=== PATIENT | male | born 1945 | race Caucasian/White ===

== ENCOUNTER → 2017-09-02 | Outpatient (CLI) | payer MEDICARE ==
[~2017-09-02] MED LIST: ALPR.5T; AML5T; AMLO10TA82 PO; ASP325T PO; ASPI-586 PO; AZOR; BSP10T PO; BYSTOLIC 10MG; CATHETER FLUSH 10 ML SYR IV PRN; CEFU500T PO; CEPH500C PO; CLN.2T PO; CLON1TAB PO; CTLP20T; DULO30CA; ENAL5TAB PO; ENLP10T; HYDR-757 PO; HYDROCODONE; KCL10CCR; KCL10CCR PO; LOVA20TA2 PO; MELO7.5T; METF500T5 PO; MGX400T; MTF500T PO; PARO40TA2 PO; PIOG30TA38 PO; QTP25T; REGADENOSON 0.4 MG/5 ML SYR (LEXISCAN) IV ONE; TOPAMAX; TOPI50TA2 PO; TPR25T PO; TRAM50TA2 PO; UNKNOWN CHOLESTEROL; WARF6TAB PO; WRF2T; WRF5T PO
[2017-09-02 09:25] VITALS: BP 151/97
[2017-09-02 09:27] VITALS: BP 149/95
--- NOTE | 2017-09-02 15:52 | STRESS TEST ---
DATE OF SERVICE: 09/02/2017 LEXISCAN MYOVIEW STRESS TEST REPORT REFERRING PHYSICIAN: Dr. Chantell Lopez, [facility]. Baseline heart rate is 79, baseline blood pressure 168/98. Baseline EKG is sinus rhythm with left bundle branch block. In summary, the patient received 9.74 mCi of technetium-99 Myoview and the resting images were obtained. Then, the patient received 0.4 mg of Lexiscan followed by 29.4 mCi of technetium-99 Myoview. Throughout the test, EKG was showing changes involving baseline first-degree AV block in addition to progressive VA prolongation with second-degree Mobitz I AV block and right bundle branch block. The patient was asymptomatic. Blood pressure was 155/88. During recovery, heart rate and blood pressure returned to baseline. The resting and stress images were reviewed and compared in the short axis, horizontal long axis, and vertical long axis views. Review of the images showed no significant ischemia or infarction on SPECT images. SSS is 0, TID value 0.96. On the gated images, the left ventricle appeared to be in normal size with normal contractility. Calculated ejection fraction 55%. CONCLUSION: 1. The patient tolerated Lexiscan well. 2. Baseline sinus rhythm with left bundle branch block. Then, the patient had sinus rhythm with first-degree AV block in addition to progressive VA prolongation with second-degree Mobitz I AV block and right bundle branch block. 3. No significant ischemia or infarction on SPECT images. 4. Normal left ventricular size with normal contractility. Calculated ejection fraction 55%. Job ID: [id number] DocumentID: [id number] Dictated Date: 09/02/2017 11:23:51 Tool Liaison Date: 09/02/2017 15:52:22 Dictated By: YOHANA SCHMIDT MD
== END ==
LOC: CARD 07:52
PROVIDERS: ATTEND Internal Medicine Cardiovascular Disease
DX: I25.10 Atherosclerotic heart disease of native coronary artery without angina pectoris (principal); I63.9 Cerebral infarction, unspecified; I65.23 Occlusion and stenosis of bilateral carotid arteries; R07.9 Chest pain, unspecified; R06.00 Dyspnea, unspecified; I10 Essential (primary) hypertension; R94.39 Abnormal result of other cardiovascular function study
CPT/HCPCS: 78452; 93017; 93306

== ENCOUNTER 2017-11-04 06:56 | Inpatient (IN) | payer MEDICARE ==
[2017-11-04] VITALS (16 sets, daily range): BP systolic 99–143; BP diastolic 31–85
[~2017-11-04] VITALS: Ht 175.3 cm; Wt 115.4 kg
[~2017-11-04 06:56] MED LIST changes: -CATHETER FLUSH 10 ML SYR IV PRN; -REGADENOSON 0.4 MG/5 ML SYR (LEXISCAN) IV ONE
[2017-11-04] MEDS ORDERED: RT-ALBUTEROL/IPRATROPIUM 3 ML (DUONEB) VIAL ONE (07:07)
[2017-11-04] MEDS ORDERED: ACETAMINOPHEN 500 MG TAB (TYLENOL) PO PRN ×2 (07:15→14:00)
[2017-11-04] MEDS ORDERED: RT-ALBUTEROL/IPRATROPIUM 3 ML (DUONEB) VIAL INH ONE (07:15)
[2017-11-04 07:24] LABS: BASOPHILS % (AUTO) 0 % (0-10); EOSINOPHILS % (AUTO) 0 % (0-10); HEMATOCRIT 42 % (40-54); HEMOGLOBIN 13.6 G/DL (13.3-17.7); LYMPHOCYTES # (AUTO) 1.7 X 10^3 (1.0-4.0); LYMPHOCYTES % (AUTO) 10 % (12-44); MEAN CORPUSCULAR HEMOGLOBIN 27 PG (25-34); MEAN CORPUSCULAR HGB CONC 33 G/DL (32-36); MEAN CORPUSCULAR VOLUME 84 FL (80-99); MEAN PLATELET VOLUME 11.7 FL (7.4-10.4); MONOCYTES # (AUTO) 1.3 X 10^3 (0.0-1.0); MONOCYTES % (AUTO) 8 % (0-12); NEUTROPHILS # (AUTO) 13.8 X 10^3 (1.8-7.8); NEUTROPHILS % (AUTO) 82 % (42-75); PLATELET COUNT 384 10^3/uL (130-400); RED BLOOD COUNT 4.97 10^6/uL (4.35-5.85); RED CELL DISTRIBUTION WIDTH 16.5 % (10.0-14.5); WHITE BLOOD COUNT 16.9 10^3/uL (4.3-11.0)
[2017-11-04] MEDS ORDERED: LIDOCAINE UROJET 2% GEL 10 ML PKG ONE (07:34)
--- NOTE | 2017-11-04 07:44 | Diagnostic Imaging Report ---
INDICATION: Coughing up blood, shortness of air EXAMINATION: Chest 11/04/2017 COMPARISON: 11/16/2015 FINDINGS: There is cardiomegaly. Pulmonary vascular congestion noted with mild edema throughout both lungs. Bibasilar atelectasis versus infiltrates noted. No significant effusions. No pneumothorax. Left-sided pacemaker and postoperative change right shoulder stable. IMPRESSION: 1. Suspected pulmonary edema 2. Bibasilar atelectasis versus mild infiltrates; followup recommended. Dictated by: Dictated on workstation # [id number]
[2017-11-04 07:48] LABS: ALBUMIN 3.6 GM/DL (3.2-4.5); BILIRUBIN,TOTAL 0.4 MG/DL (0.1-1.0); CALCIUM 9.4 MG/DL (8.5-10.1); CREATININE SERUM 1.41 MG/DL (0.60-1.30); POTASSIUM 4.6 MMOL/L (3.6-5.0); TOTAL PROTEIN 7.1 GM/DL (6.4-8.2)
--- NOTE | 2017-11-04 07:48 | ED Respiratory ---
General Stated Complaint: COUGHING BLOOD SOA Source: patient Exam Limitations: no limitations History of Present Illness Date Seen by Provider: Nov 04, 2017 Time Seen by Provider: 07:02 Initial Comments Here with report of shortness of air. Onset yesterday and worse until today. Has had quite a bit of cough as well as sore throat. States that when he coughs sometimes there is blood in it. Denies nausea or vomiting. Quite short of breath today. Does have fever today. Does not normally have respiratory problems. Does have a pacemaker. Timing/Duration: yesterday, getting worse Severity: moderate, severe Prior Episodes/Possible Cause: occasional episodes Modifying Factors: Worse With Activity; Improves With Rest Associated Symptoms: cough, fever/chills, nasal congestion, nasal drainage, shortness of breath, sore throat, wheezing Allergies and Home Medications Allergies Coded Allergies: Sulfa (Sulfonamide Antibiotics) (Verified Allergy, Unknown, 03/12/07) Home Medications Amlodipine Besylate 10 Mg Tablet, 10 MG PO DAILY, (Reported) Clonazepam 1 Mg Tablet, 1 MG PO TID PRN for ANXIETY, (Reported) Clonidine Hcl 0.2 Mg Tablet, 0.2 MG PO BID, (Reported) Enalapril Maleate 5 Mg Tablet, 5 MG PO BID, (Reported) Hydrocodone/Acetaminophen 1 Each Tablet, 1 TAB PO Q6H PRN for PAIN, (Reported) Lovastatin 20 Mg Tablet, 20 MG PO HS, (Reported) Metformin HCl 500 Mg Tablet, 500 MG PO DAILY, (Reported) Metformin HCl 500 Mg Tablet, 1,000 MG PO HS, (Reported) TAKES 2 (500 MG) TABLETS Paroxetine Hcl 40 Mg Tablet, 40 MG PO DAILY, (Reported) Pioglitazone HCl 30 Mg Tablet, 30 MG PO DAILY, (Reported) Potassium Chloride 10 Meq Tablet.sa, 10 MEQ PO DAILY, (Reported) Topiramate 50 Mg Tablet, 50 MG PO BID, (Reported) LAST FILLED 07/12/15 #180 Warfarin Sodium 6 Mg Tablet, 6 MG PO DAILY, (Reported) LAST FILLED 07/12/15 #90 Patient Home Medication List Home Medication List Reviewed: Yes Review of Systems Constitutional: see HPI, chills, fever; No weakness EENTM: nose congestion, throat pain Respiratory: cough, short of breath, wheezing Cardiovascular: No chest pain; Hx of Intervention Gastrointestinal: No abdominal pain, No nausea, No vomiting Genitourinary: no symptoms reported Musculoskeletal: no symptoms reported All Other Systems Reviewed Negative Unless Noted: Yes Past Yaomvqx-Cffrgu-Fpioof Hx Past Med/Social Hx: Reviewed Nursing Past Med/Soc Hx Patient Social History Recreational Drug Use: No Smoking Status: Never a Smoker Immunizations Up To Date Tetanus Booster (TDap): Unknown Date of Pneumonia Vaccine: Jan 22, 2008 Seasonal Allergies Seasonal Allergies: No Past Medical History Surgeries: Yes Orthopedic, Pacemaker Respiratory: Yes Sleep Apnea Stroke Reproductive Disorders: No Sexually Transmitted Disease: No Genitourinary: Yes Kidney Stones Endocrine: Yes Diabetes, Non-Insulin dep Psychosocial: Yes Anxiety Family Medical History Reviewed Nursing Family Hx No Pertinent Family Hx Physical Exam Vital Signs Vital Signs - First Documented 11/04/17 11/04/17 07:11 08:15 Temp 101.0 Pulse 68 Resp 32 B/P (MAP) 148/71 (96) Pulse Ox 90 O2 Delivery Nasal Cannula O2 Flow Rate 2.00 FiO2 90 Capillary Refill : General Appearance: WD/WN, moderate distress HEENT: PERRL/EOMI, pharyngeal erythema; No tonsillar exudate Neck: full range of motion, supple Respiratory: respiratory distress, decreased breath sounds, wheezing, expiration Cardiovascular: regular rate, rhythm, no murmur Gastrointestinal: non tender Extremities: non-tender, normal inspection Neurologic/Psychiatric: alert, oriented x 3 Skin: normal color, warm/dry Focused Exam Lactate Level 11/04/17 07:11: Lactic Acid Level 1.65 Lactic Acid Level Laboratory Tests Test 11/04/17 07:11 Lactic Acid Level 1.65 MMOL/L (0.50-2.00) Progress/Results/Core Measures Suspected Sepsis SIRS Temperature:101.0 Pulse: Respiratory Rate: Laboratory Tests 11/04/17 07:11: White Blood Count 16.9H Blood Pressure / Mean: 11/04/17 07:11: Lactic Acid Level 1.65 Laboratory Tests 11/04/17 07:11: Creatinine 1.41H, INR Comment 11.2*H, Platelet Count 384, Total Bilirubin 0.4 11/04/17 08:01: INR Comment 11.4*H Results/Orders Lab Results Laboratory Tests Test 11/04/17 07:11 11/04/17 07:42 11/04/17 07:53 11/04/17 08:01 Range/Units White Blood Count 16.9 H 4.3-11.0 10^3/uL Red Blood Count 4.97 4.35-5.85 10^6/uL Hemoglobin 13.6 13.3-17.7 G/DL Hematocrit 42 40-54 % Mean Corpuscular Volume 84 80-99 FL Mean Corpuscular Hemoglobin 27 25-34 PG Mean Corpuscular Hemoglobin Concent 33 32-36 G/DL Red Cell Distribution Width 16.5 H 10.0-14.5 % Platelet Count 384 130-400 10^3/uL Mean Platelet Volume 11.7 H 7.4-10.4 FL Neutrophils (%) (Auto) 82 H 42-75 % Lymphocytes (%) (Auto) 10 L 12-44 % Monocytes (%) (Auto) 8 0-12 % Eosinophils (%) (Auto) 0 0-10 % Basophils (%) (Auto) 0 0-10 % Neutrophils # (Auto) 13.8 H 1.8-7.8 X 10^3 Lymphocytes # (Auto) 1.7 1.0-4.0 X 10^3 Monocytes # (Auto) 1.3 H 0.0-1.0 X 10^3 Eosinophils # (Auto) 0.0 0.0-0.3 10^3/uL Basophils # (Auto) 0.0 0.0-0.1 10^3/uL Neutrophils % (Manual) 83 % Lymphocytes % (Manual) 11 % Monocytes % (Manual) 4 % Eosinophils % (Manual) 0 % Basophils % (Manual) 0 % Band Neutrophils 1 % Hypersegmented Neutrophils SLIGHT Reactive Lymphocytes 1 % Poikilocytosis MODERATE Anisocytosis SLIGHT Target Cells SLIGHT Stomatocytes SLIGHT [place] Cells SLIGHT Acanthocytes SLIGHT Prothrombin Time 88.3 *H 89.8 *H 12.2-14.7 SEC INR Comment 11.2 *H 11.4 *H 0.8-1.4 Activated Partial Thromboplast Time 189 *H 186 *H 24-35 SEC Sodium Level 137 135-145 MMOL/L Potassium Level 4.6 3.6-5.0 MMOL/L Chloride Level 107 98-107 MMOL/L Carbon Dioxide Level 17 L 21-32 MMOL/L Anion Gap 13 5-14 MMOL/L Blood Urea Nitrogen 22 H 7-18 MG/DL Creatinine 1.41 H 0.60-1.30 MG/DL Estimat Glomerular Filtration Rate 49 BUN/Creatinine Ratio 16 Glucose Level 165 H 70-105 MG/DL Lactic Acid Level 1.65 0.50-2.00 MMOL/L Calcium Level 9.4 8.5-10.1 MG/DL Total Bilirubin 0.4 0.1-1.0 MG/DL Aspartate Amino Transf (AST/SGOT) 25 5-34 U/L Alanine Aminotransferase (ALT/SGPT) 29 0-55 U/L Alkaline Phosphatase 38 L 40-136 U/L Total Protein 7.1 6.4-8.2 GM/DL Albumin 3.6 3.2-4.5 GM/DL Urine Color YELLOW Urine Clarity CLEAR Urine pH 5 5-9 Urine Specific [place] 1.020 1.016-1.022 Urine Protein 2+ H NEGATIVE Urine Glucose (UA) NEGATIVE NEGATIVE Urine Ketones 2+ H NEGATIVE Urine Nitrite NEGATIVE NEGATIVE Urine Bilirubin NEGATIVE NEGATIVE Urine Urobilinogen 4 H NORMAL MG/DL Urine Leukocyte Esterase 1+ H NEGATIVE Urine RBC (Auto) 4+ H NEGATIVE Urine RBC 2-5 H /HPF Urine WBC 0-2 /HPF Urine Squamous Epithelial Cells RARE /HPF Urine Renal Epithelial Cells NONE /HPF Urine Crystals PRESENT H /LPF Urine Amorphous Sediment FEW FELIPA URATES H /LPF Urine Bacteria NEGATIVE /HPF Urine Casts PRESENT /LPF Urine Hyaline Casts 0-2 H /LPF Urine Mucus MODERATE H /LPF Urine Culture Indicated NO B-Type Natriuretic Peptide 433.7 H <100.0 PG/ML Blood Gas Puncture Site R RAD Blood Gas Patient Temperature 101.0 Arterial Blood pH 7.33 *L 7.37-7.43 Arterial Blood Partial Pressure CO2 37 35-45 MMHG Arterial Blood Partial Pressure O2 77 L 79-93 MMHG Arterial Blood HCO3 18 L 23-27 MMOL/L Arterial Blood Total CO2 19.3 L 21.0-31.0 MMOL/L Arterial Blood Oxygen Saturation 93 L 94-100 % Arterial Blood Base Excess -6.4 L -2.5-2.5 MMOL/L Braydon Test P Blood Gas Ventilator Setting NO Blood Gas Inspired Oxygen Y My Orders Orders - CHRISTINA BLOOM MD Albuterol/Ipra Inhalation Soln (Duoneb I (11/04/17 07:15) Svn Small Volume Nebulizer (11/04/17 07:07) Albuterol/Ipra Inhalation Soln (Duoneb I (11/04/17 07:07) Cbc With Automated Diff (11/04/17 07:10) Comprehensive Metabolic Panel (11/04/17 07:10) Lactic Acid Analyzer (11/04/17 07:10) Blood Culture (11/04/17 07:10) Sputum Culture (11/04/17 07:10) Ua Culture If Indicated (11/04/17 07:10) Protime With Inr (11/04/17 07:10) Partial Thromboplastin Time (11/04/17 07:10) Chest 1 View, Ap/Pa Only (11/04/17 07:10) O2 (11/04/17 07:10) Acetaminophen Tablet (Tylenol Tablet) (11/04/17 07:15) Saline Lock/Iv-Start (11/04/17 07:10) Saline Lock/Iv-Start (11/04/17 07:10) Ekg Tracing (11/04/17 07:10) Vital Signs Adult Sepsis Patie Q15M (11/04/17 07:10) Remove Rings In Anticipation O (11/04/17 07:10) Manual Differential (11/04/17 07:11) Arterial Blood Gas (11/04/17 07:32) BNP (11/04/17 07:32) Catheter(Urinary) Insert & Ass 03,15 (11/04/17 07:34) Lidocaine 2% (Urojet) (Xylocaine Urojet) (11/04/17 07:34) Phytonadione Oral Solution (Mephyton Ora (11/04/17 08:15) Protime With Inr (11/04/17 08:01) Partial Thromboplastin Time (11/04/17 08:01) Piperacillin/Tazobactam (Zosyn Vial) (11/04/17 09:00) Medications Given in ED Current Medications Medications Dose Ordered Sig/Eris Route Start Time Stop Time Status Last Admin Dose Admin Acetaminophen 1,000 mg ONCE PRN PO 11/04/17 07:15 11/04/17 07:32 DC 11/04/17 07:32 1,000 MG Albuterol/ Ipratropium 3 ml STK-MED ONCE .ROUTE 11/04/17 07:07 11/04/17 07:10 DC 11/04/17 07:12 3 ML Phytonadione 2.5 mg ONCE ONCE PO 11/04/17 08:15 11/04/17 08:16 DC 11/04/17 09:04 2.5 MG Piperacillin Sod/ Tazobactam Sod 3.375 gm/Dextrose 100 ml @ 200 mls/hr ONCE ONCE IV 11/04/17 09:00 11/04/17 09:29 11/04/17 09:05 200 MLS/HR Vital Signs/I&O 11/04/17 11/04/17 11/04/17 11/04/17 07:11 07:12 07:32 08:15 Temp 101.0 101.0 Pulse 68 Resp 32 B/P (MAP) 148/71 (96) Pulse Ox 90 92 90 O2 Delivery Nasal Cannula Nasal Cannula Nasal Cannula O2 Flow Rate 2.00 3.00 2.00 FiO2 90 Capillary Refill : Progress Note : Progress Note Seen and evaluated. IV, labs, EKG and chest x-ray ordered. Blood cultures and lactic acid ordered. Duo neb ordered. Patient has initial O2 sat of 86 percent. Placed on nasal cannula at 3 L. This minimally improved his respiratory status. Duo neb ordered and given. This did help a little. Patient has moderate nasal congestion so switched to mask. The rate on the mask at 6 L and O2 sat 92 percent. Patient having enough respiratory distress that we did go ahead and replace Wall catheter for accurate I&O's and due to concerns that he has decline when moving around. 0920: Patient's INR and coags were repeated and are still significantly elevated. I have talked with Dr. Brett Gonzalez and we both agree that vitamin K as indicated. 2.5 mg by mouth given. His findings of pneumonia bilateral bases. Zosyn 3.375 g initiated. Unsure of the cause of the INR but will need further liver evaluation. This can be done when more stable. I did discuss the case with Dr. Toussaint, on- call for [facility]. She accepts patient for admission. Inpatient status. Patient to go to ICU given his current findings and concerns. Does not currently meet severe sepsis or septic shock. High-volume Fluid resuscitation would be disadvantageous in him as there are findings of pulmonary vascular congestion on the chest x-ray. Findings and concerns discussed with patient and family who agree with plan. ECG Initial ECG Impression Date: Nov 04, 2017 Initial ECG Impression Time: 07:04 Initial ECG Rate: 71 Comment Ventricular paced rhythm with left axis deviation. No evidence of ST elevation WI. Similar to previous. Interpreted by me. Diagnostic Imaging Diagonstic Imaging: Xray Plain Films/CT/US/NM/MRI: chest [facility] [place], [place] NAME: [facility] REC#: [id number] PT STATUS: REG ER : 1945 PHYSICIAN: CHRISTINA BLOOM MD ADMIT DATE: 11/04/17/ER Draft Date of Exam:11/04/17 CHEST 1 VIEW, AP/PA ONLY INDICATION: Coughing up blood, shortness of air EXAMINATION: Chest 11/04/2017 COMPARISON: 11/16/2015 FINDINGS: There is cardiomegaly. Pulmonary vascular congestion noted with mild edema throughout both lungs. Bibasilar atelectasis versus infiltrates noted. No significant effusions. No pneumothorax. Left-sided pacemaker and postoperative change right shoulder stable. IMPRESSION: 1. Suspected pulmonary edema 2. Bibasilar atelectasis versus mild infiltrates; followup recommended. Dictated on workstation # [id number] Dict: 11/04/17 0739 Trans: 11/04/17 0744 [facility] [id number] Interpreted by: NADIRA FISHER MD Electronically signed by: Departure Communication (Admissions) Time/Spoke to Admitting Phy: 09:19 Impression Primary Impression: Pneumonia of both lower lobes Qualified Codes: J18.1 - Lobar pneumonia, unspecified organism Additional Impression: Supratherapeutic INR Disposition: ADMITTED INPATIENT Condition: Stable Admissions Decision to Admit Reason: Admit from ER (General) Decision to Admit/Date: Nov 04, 2017 Time/Decision to Admit Time: 09:19 Departure-Patient Inst. Referrals: DAR DANIELS DO (PCP) Primary Care Physician MARLEY MCGRATH (Family) Primary Care Physician CHRISTINA BLOOM MD Nov 04, 2017 07:47
[2017-11-04 07:49] LABS: BILIRUBIN,URINE NEGATIVE (NEGATIVE); CLARITY,URINE CLEAR; COLOR,URINE YELLOW; GLUCOSE, URINE (UA) NEGATIVE (NEGATIVE); KETONES,URINE 2+ (NEGATIVE); LEUKOCYTE ESTERASE ,URINE 1+ (NEGATIVE); NITRITE,URINE NEGATIVE (NEGATIVE); PH,URINE 5 (5-9); PROTEIN,URINE 2+ (NEGATIVE); UROBILINOGEN,URINE 4 MG/DL (NORMAL)
[2017-11-04 07:55] LABS: INR 11.2 (0.8-1.4); PROTHROMBIN TIME PATIENT 88.3 SEC (12.2-14.7)
[2017-11-04 08:03] LABS: ABG BASE EXCESS -6.4 MMOL/L (-2.5-2.5); ABG OXYGEN SATURATION 93 % (94-100); ABG PCO2 37 MMHG (35-45); ABG PO2 77 MMHG (79-93); ABG TCO2 19.3 MMOL/L (21.0-31.0)
[2017-11-04 08:07] LABS: ABG PH 7.33 (7.37-7.43); ALLENS TEST P; INSPIRED O2 Y; VENTILATOR NO
[2017-11-04 08:09] LABS: BAND NEUTROPHILS 1 %; NEUTROPHILS % (MANUAL) 83 %
[2017-11-04 08:10] LABS: BASOPHILS % (MANUAL) 0 %; EOSINOPHILS % (MANUAL) 0 %; HYPERSEGMENTED NEUT SLIGHT; LYMPHOCYTES % (MANUAL) 11 %; MONOCYTES % (MANUAL) 4 %; REACTIVE LYMPHOCYTES 1 %
[2017-11-04 08:11] LABS: ANISOCYTOSIS SLIGHT; POIKILOCYTOSIS MODERATE
[2017-11-04 08:12] LABS: ACANTHOCYTES SLIGHT; BURR CELLS SLIGHT; STOMATOCYTES SLIGHT; TARGET CELLS SLIGHT
[2017-11-04] MEDS ORDERED: VITAMIN K 1 MG/ML ORAL SOLN 1 ML SYRINGE PO ONE (08:15)
[2017-11-04 08:23] LABS: BACTERIA,URINE NEGATIVE /HPF; SQUAMOUS EPITHELIAL CELL,UR RARE /HPF; WBC,URINE 0-2 /HPF
[2017-11-04 08:24] LABS: AMORPHOUS SEDIMENT,UR FEW AMOR URATES /LPF; HYALINE CASTS, URINE 0-2 /LPF
[2017-11-04] MEDS ORDERED: TEST100V3 IM (08:35)
[2017-11-04 08:40] LABS: PROTHROMBIN TIME PATIENT 89.8 SEC (12.2-14.7)
[2017-11-04 08:41] LABS: INR 11.4 (0.8-1.4)
[2017-11-04] MEDS ORDERED: PIPERACILLIN/TAZOBACTAM 3.375 GM in D5W 100 ML IVPB 100 ML IV ONE (09:00)
--- NOTE | 2017-11-04 11:55 | History & Physicial (CHS) ---
HPI History of Present Illness: 72 year old male who presented to the ED with significant other early this morning with complaint of 1-2 days of worsening shortness of breath, especially with exertion. Productive cough, fever, chills, sore throat, congestion, occasional hemoptysis. On arrival to the ED he was found to have a temp of 101.0, a respiratory rate of 32, and an oxygen saturation of 86% on room air. The patient reports that before Saturday, he was feeling like his normal self. He denies chest pain or pressure, nausea, vomiting or diarrhea. Pt does have a history of sleep apnea, but is noncompliant and does not wear CPAP at home. In the ED he was given breathing treatments and placed on oxygen to help bring his sats up to a more normal range; pt is not a smoker and has no history of respiratory disorders. His CXR showed pulmonary edema and bibasilar infiltrate vs atelectasis; this coupled with his tachypnea, febrile state and WBC 16.9, patient meets criteria for sepsis. He was also found to have a supratherapeutic INR of 11.2. He was admitted to the ICU for treatment of his sepsis, as well as stabilization of his supratherapeutic state. Source: patient, RN/MD, RN notes reviewed, old records, spouse Exam Limitations: no limitations Date seen by provider: Nov 04, 2017 Time Seen by Provider: 13:07 Attending Physician Olena Toussaint DO PCP Henri Gonzales APRN Consult Date of Admission Nov 04, 2017 at 09:20 Home Medications Home Medications Reviewed patient Home Medication Reconciliation performed by pharmacy medication reconciliations operating room technician and/or nursing. Patients Allergies have been reviewed. Allergies Coded Allergies: Sulfa (Sulfonamide Antibiotics) (Verified Allergy, Unknown, 03/12/07) [id number] Hx Patient Social History Marrital Status: Number of Children: 3 Number of living children: 3 Living Status: lives with spouse Employed/Student: retired (formerly worked at [employer]) Alcohol Use: Denies Use Recreational Drug Use: No Smoking Status: Never a Smoker 2nd Hand Smoke Exposure: No Recent Foreign Travel: No Contact w/other who traveled: No Recent Hopitalizations: No Recent Infectious Disease Expo: No Physical Abuse Screen: No Sexual Abuse: No Immunizations Up To Date Tetanus Booster (TDap): Unknown Date of Pneumonia Vaccine: Jan 22, 2008 Past Medical History Sleep Apnea - noncompliant with CPAP Obesity, BMI 36.8 Stroke - September 2007 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 Mild regurgitation. Moderate Tricuspid regurgitation Surgical History Cardiac Cath - 2013, 2016 Pacemaker - 2007; Generatory Change 2015 Right Total Shoulder Right Knee Arthroscopy Colonoscopy Abdominal Lipoma Excision Family Medical History Significant Family History: No Pertinent Family Hx (patient adopted) Review of Systems ([facility]) Constitutional: see HPI, chills, fever, malaise EENTM: see HPI, hoarseness, nose congestion, throat pain Respiratory: see HPI, cough, dyspnea on exertion, hemoptysis, phlegm, short of breath Cardiovascular: no symptoms reported Gastrointestinal: no symptoms reported Genitourinary: no symptoms reported Musculoskeletal: no symptoms reported Skin: no symptoms reported Psychiatric/Neurological: No Symptoms Reported Reviewed Test Results Reviewed Test Results Lab 11/04/17 07:11: Lactic Acid Level 1.65 Laboratory Tests Test 11/04/17 07:11 11/04/17 07:42 11/04/17 07:53 11/04/17 08:01 Range/Units White Blood Count 16.9 H 4.3-11.0 10^3/uL Red Blood Count 4.97 4.35-5.85 10^6/uL Hemoglobin 13.6 13.3-17.7 G/DL Hematocrit 42 40-54 % Mean Corpuscular Volume 84 80-99 FL Mean Corpuscular Hemoglobin 27 25-34 PG Mean Corpuscular Hemoglobin Concent 33 32-36 G/DL Red Cell Distribution Width 16.5 H 10.0-14.5 % Platelet Count 384 130-400 10^3/uL Mean Platelet Volume 11.7 H 7.4-10.4 FL Neutrophils (%) (Auto) 82 H 42-75 % Lymphocytes (%) (Auto) 10 L 12-44 % Monocytes (%) (Auto) 8 0-12 % Eosinophils (%) (Auto) 0 0-10 % Basophils (%) (Auto) 0 0-10 % Neutrophils # (Auto) 13.8 H 1.8-7.8 X 10^3 Lymphocytes # (Auto) 1.7 1.0-4.0 X 10^3 Monocytes # (Auto) 1.3 H 0.0-1.0 X 10^3 Eosinophils # (Auto) 0.0 0.0-0.3 10^3/uL Basophils # (Auto) 0.0 0.0-0.1 10^3/uL Neutrophils % (Manual) 83 % Lymphocytes % (Manual) 11 % Monocytes % (Manual) 4 % Eosinophils % (Manual) 0 % Basophils % (Manual) 0 % Band Neutrophils 1 % Hypersegmented Neutrophils SLIGHT Reactive Lymphocytes 1 % Poikilocytosis MODERATE Anisocytosis SLIGHT Target Cells SLIGHT Stomatocytes SLIGHT [place] Cells SLIGHT Acanthocytes SLIGHT Prothrombin Time 88.3 *H 89.8 *H 12.2-14.7 SEC INR Comment 11.2 *H 11.4 *H 0.8-1.4 Activated Partial Thromboplast Time 189 *H 186 *H 24-35 SEC Sodium Level 137 135-145 MMOL/L Potassium Level 4.6 3.6-5.0 MMOL/L Chloride Level 107 98-107 MMOL/L Carbon Dioxide Level 17 L 21-32 MMOL/L Anion Gap 13 5-14 MMOL/L Blood Urea Nitrogen 22 H 7-18 MG/DL Creatinine 1.41 H 0.60-1.30 MG/DL Estimat Glomerular Filtration Rate 49 BUN/Creatinine Ratio 16 Glucose Level 165 H 70-105 MG/DL Lactic Acid Level 1.65 0.50-2.00 MMOL/L Calcium Level 9.4 8.5-10.1 MG/DL Total Bilirubin 0.4 0.1-1.0 MG/DL Aspartate Amino Transf (AST/SGOT) 25 5-34 U/L Alanine Aminotransferase (ALT/SGPT) 29 0-55 U/L Alkaline Phosphatase 38 L 40-136 U/L Total Protein 7.1 6.4-8.2 GM/DL Albumin 3.6 3.2-4.5 GM/DL Urine Color YELLOW Urine Clarity CLEAR Urine pH 5 5-9 Urine Specific [place] 1.020 1.016-1.022 Urine Protein 2+ H NEGATIVE Urine Glucose (UA) NEGATIVE NEGATIVE Urine Ketones 2+ H NEGATIVE Urine Nitrite NEGATIVE NEGATIVE Urine Bilirubin NEGATIVE NEGATIVE Urine Urobilinogen 4 H NORMAL MG/DL Urine Leukocyte Esterase 1+ H NEGATIVE Urine RBC (Auto) 4+ H NEGATIVE Urine RBC 2-5 H /HPF Urine WBC 0-2 /HPF Urine Squamous Epithelial Cells RARE /HPF Urine Renal Epithelial Cells NONE /HPF Urine Crystals PRESENT H /LPF Urine Amorphous Sediment FEW FELIPA URATES H /LPF Urine Bacteria NEGATIVE /HPF Urine Casts PRESENT /LPF Urine Hyaline Casts 0-2 H /LPF Urine Mucus MODERATE H /LPF Urine Culture Indicated NO B-Type Natriuretic Peptide 433.7 H <100.0 PG/ML Blood Gas Puncture Site R RAD Blood Gas Patient Temperature 101.0 Arterial Blood pH 7.33 *L 7.37-7.43 Arterial Blood Partial Pressure CO2 37 35-45 MMHG Arterial Blood Partial Pressure O2 77 L 79-93 MMHG Arterial Blood HCO3 18 L 23-27 MMOL/L Arterial Blood Total CO2 19.3 L 21.0-31.0 MMOL/L Arterial Blood Oxygen Saturation 93 L 94-100 % Arterial Blood Base Excess -6.4 L -2.5-2.5 MMOL/L [place] Test P Blood Gas Ventilator Setting NO Blood Gas Inspired Oxygen Y Test 11/04/17 14:42 11/04/17 16:15 Range/Units Prothrombin Time 80.8 *H 12.2-14.7 SEC INR Comment 10.0 *H 0.8-1.4 Glucometer 130 H 70-110 MG/DL Radiology Date of Exam: 11/04/17 CHEST 1 VIEW, AP/PA ONLY INDICATION: Coughing up blood, shortness of air EXAMINATION: Chest 11/04/2017 COMPARISON: 11/16/2015 FINDINGS: There is cardiomegaly. Pulmonary vascular congestion noted with mild edema throughout both lungs. Bibasilar atelectasis versus infiltrates noted. No significant effusions. No pneumothorax. Left-sided pacemaker and postoperative change right shoulder stable. Physical Exam-([facility]) Physical Exam Vital Signs VS - Last 72 Hours, by Label 11/04/17 11/04/17 11/04/17 11/04/17 07:11 07:12 07:32 08:15 Temp 101.0 101.0 Pulse 68 Resp 32 B/P (MAP) 148/71 (96) Pulse Ox 90 92 90 O2 Delivery Nasal Cannula Nasal Cannula Nasal Cannula O2 Flow Rate 2.00 3.00 2.00 FiO2 90 11/04/17 11/04/17 11/04/17 11/04/17 10:21 10:26 10:27 10:45 Temp 100.4 99.1 Pulse 60 67 75 Resp 27 10 B/P (MAP) 129/68 107/55 (72) Pulse Ox 94 94 O2 Delivery OxyMask OxyMask OxyMask O2 Flow Rate 6.00 6.00 6.00 11/04/17 11/04/17 11/04/17 11/04/17 11:00 12:00 12:16 12:25 Temp 98.3 Pulse 63 65 Resp 26 25 B/P (MAP) 102/57 (72) 99/56 (70) Pulse Ox 95 95 96 O2 Delivery OxyMask OxyMask OxyMask High Flow N/C O2 Flow Rate 6.00 6.00 6.00 6.00 11/04/17 11/04/17 11/04/17 11/04/17 13:00 13:00 14:00 15:00 Pulse 60 60 60 61 Resp 25 19 19 B/P (MAP) 109/31 (57) 110/58 (75) 114/53 (73) Pulse Ox 95 94 95 O2 Delivery High Flow N/C High Flow N/C High Flow N/C O2 Flow Rate 6.00 6.00 6.00 11/04/17 11/04/17 11/04/17 11/04/17 15:13 15:28 16:00 17:00 Pulse 60 63 Resp 16 31 B/P (MAP) 104/83 (90) 128/66 (86) Pulse Ox 90 97 91 O2 Delivery Nasal Cannula High Flow N/C High Flow N/C High Flow N/C O2 Flow Rate 7.00 6.00 6.00 6.00 11/04/17 11/04/17 18:00 19:14 Pulse 60 Resp 8 B/P (MAP) 143/61 (88) Pulse Ox 94 94 O2 Delivery High Flow N/C Nasal Cannula O2 Flow Rate 6.00 6.00 Capillary Refill : Less Than 3 Seconds General Appearance: WD/WN, no apparent distress, obese Eyes: Bilateral Eye Normal Inspection, Bilateral Eye EOMI HEENT: normal ENT inspection; No scleral icterus (R), No scleral icterus (L), No photophobia, No tonsillar exudate Neck: non-tender, full range of motion, supple, normal inspection; No thyromegaly Respiratory: chest non-tender, decreased breath sounds, accessory muscle use, other (mild coarseness bilaterally) Cardiovascular: regular rate, rhythm (paced rhythm on telemetry), no edema, JVD ; No tachycardia; systolic murmur Peripheral Pulses: 2+ Radial Pulses (R), 2+ Radial Pulses (L) Gastrointestinal: normal bowel sounds, non tender, soft, no organomegaly, no pulsatile mass; No guarding, No rebound Rectal: deferred Extremities: normal range of motion, non-tender, normal inspection, no calf tenderness, normal capillary refill, pedal edema, other (venous stasis changes in bilateral lower extremities, with swelling to mid lower leg bilaterally) Neurologic/Psychiatric: fine grade operator II-XII nml as tested, no motor/sensory deficits, alert, normal mood/affect, oriented x 3 Skin: normal color, warm/dry Assessment/Plan Assessment/Plan Admission Dx Sepsis Bilateral PNA Pulmonary Edema Hypoxia Dependence on Supplemental Oxygen Type II Diabetes Mellitus Grade II Diastolic Dysfunction with Preserved EF CAD Supratherapeutic INR Sleep Apnea HTN Pacemaker Anxiety Chronic Pain Depression GERD Dyslipidemia History of Stroke Admission Status: Inpatient Order (span 2 midnights) Reason for Inpatient Admission: treatment and stabilization of admission conditions (1) Sepsis Status: Acute Assessment & Plan: 11/04 -given admission RR 32, Temp 101, WBC 16.9 and bilateral PNA per CXR -see below for further details Qualifiers: Qualified Codes: A41.9 - Sepsis, unspecified organism (2) Acute respiratory failure with hypoxemia Status: Acute Assessment & Plan: 11/04 -room air with no known lung disease per pt report -86% on room air on arrival, placed on NC -ABG in ED shows pH 7.33, PaCO2 37, PaO2 77 on NC -at the time of exam, pt requiring 7L high flow NC to maintain sats >93% -duonebs Q4H -BiPap when asleep if patient able to tolerate (3) Pneumonia of both lower lobes Status: Acute Assessment & Plan: 11/04 -bibasilar infiltrates vs atelectasis -WBC 16.9 -repeat CBC, add CRP in AM -Zosyn Day 1 -Solu-Medrol 125 mg Day 1, then 40 mg Q6H -BiPap when asleep if tolerated Qualifiers: Qualified Codes: J18.1 - Lobar pneumonia, unspecified organism (4) Pulmonary edema w/congestive heart failure w/preserved LV function Status: Acute Assessment & Plan: 11/04 -CXR shows vascular congestion -lasix and albumin given x1; pt requires fluid bolus secondary to sepsis guidelines -will repeat lasix and albulin at 2000 tonight -repeat CXR in AM -I&O -Daily weight (5) Grade II diastolic dysfunction Status: Chronic Assessment & Plan: 11/04 Echo 09/02/17 (6) Acute kidney injury Status: Acute Assessment & Plan: 11/04 -Cr 1.41, GFR 49 -pt's baseline appears to be Cr 1.04, GFR 72 per clinic labs 02/11/17 (7) Hypertension Status: Chronic Assessment & Plan: 11/04 -will resume home meds with hold parameters; pt currently with SPB ~105, no antihypertensives have been given today -will monitor closely Qualifiers: Qualified Codes: I10 - Essential (primary) hypertension (8) Sleep apnea Status: Chronic Assessment & Plan: 11/04 -pt reports he does not use CPAP at home because "he couldn't stand the mask" -is willing to try bipap in the hospital -will make ativan available PRN Qualifiers: Qualified Codes: G47.30 - Sleep apnea, unspecified (9) Supratherapeutic INR Status: Acute Assessment & Plan: 11/04 -INR 11.2 on arrival in ED, repeat 11.4 --> pt given 2.5 mg Vit K PO -INR recheck this afternoon 10; no active bleeding, but given INR still 10, reasonable to give pt additional Vitamin K, 5 mg PO x1 -recheck PT, PTT, INR in AM -hold coumadin (10) Type II diabetes mellitus with complication Status: Chronic Assessment & Plan: 11/04 -per clinic records, last A1C was 7.2 in December 2016 -check A1C with AM labs -hold metformin and Actos for now; pt with elevation in Cr above his baseline -sliding scale insulin, accucheck AC and HS -diabetic diet Qualifiers: Qualified Codes: E11.8 - Type 2 diabetes mellitus with unspecified complications (11) Dyslipidemia Status: Chronic Assessment & Plan: 11/04 -resume home meds (12) History of stroke Status: Chronic (13) Anxiety Status: Chronic Assessment & Plan: 11/04 -resume home clonazepam -ativan PRN anxiety or agitation, especially if patient is willing to try bipap when sleeping (14) Major depression, recurrent Status: Chronic Assessment & Plan: 11/04 -resume home meds Qualifiers: Qualified Codes: F33.9 - Major depressive disorder, recurrent, unspecified (15) Pacemaker Status: Chronic Permanent Comment: placed in 2007 secondary to sick sinus syndrome; generator change 2015 Last Edited By: Olena Toussaint on Nov 04, 2017 20:37 (16) CAD (coronary artery disease), [place] coronary artery Status: Chronic Permanent Comment: Cardiac Cath 2015 50-60% distal LAD stenosis 50-60% stenosis at proximal and mid RCA 50% circumflex stenosis followed by aneurysmal dilation EF 60% Elevated left end diastolic pressure Last Edited By: Olena Toussaint on Nov 04, 2017 20:39 Qualifiers: Qualified Codes: I25.10 - Atherosclerotic heart disease of [place] coronary artery without angina pectoris (17) Concentric left ventricular hypertrophy Status: Chronic Permanent Comment: per echo, most recently 09/02/17 Last Edited By: Olena Toussaint on Nov 04, 2017 20:40 (18) Chronic GERD Status: Chronic Assessment & Plan: 11/04 -resume home meds (19) Insomnia Status: Chronic Assessment & Plan: 11/04 -resume home meds -Ramelteon 8 mg at HS PRN sleep -ativan PRN, especially if pt willing to try using bipap when asleep Qualifiers: Qualified Codes: F51.01 - 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 (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 Assessment & Plan: 11/04 -IM every 2 weeks -last dose 10/29/17 (21) Hearing difficulty Status: Chronic Qualifiers: Qualified Codes: H91.93 - Unspecified hearing loss, bilateral (22) Chronic fatigue Status: Chronic (23) Arthritis Status: Chronic Assessment & Plan: 11/04 -resume home pain medications; [place] 5/325 -will make [place] 10/325 available for severe pain only (24) Obesity (BMI 30-39.9) Status: Chronic (25) DVT prophylaxis Status: Acute Assessment & Plan: 11/04 -currently with supratherapeutic INR, will hold on chemoprophylaxis -SCDs Clinical Quality Measures AMI/AHF: Ejection Fraction: Normal LVSF DVT/VTE Risk/Contraindication: VTE Addressed: Yes VTE Present on Admission: No Risk Factor Score Per Nursin RFS Level Per Nursing on Admit: 4+=Very High Contraindications-Pharm: Other *list below* (supratherapeutic INR of 11.4 on admission; pt using SCDs and will restart chemoprophylaxis when INR normalized) Sepsis: Within 3hrs of presentation: Admin ABX, Blood cultures prior to ABX's, Lactate level Pneumonia: Pseudomonal Risk: No known risk Urinary Catheter-Non SCIP Pts: Reason for Catheter Continuanc: Accurate I&O Copy Copies To 1: [facility]/OLENA VILLA DO Nov 04, 2017 11:55
[2017-11-04] MEDS: NS IV 1000 ML 1,000 ML IV SCH ×4 (12:23→17:45)
[2017-11-04] MEDS ORDERED: OXYMETAZOLINE (AFRIN) 0.05% NA 15 ML BTL SCH (13:45)
[2017-11-04] MEDS ORDERED: FUROSEMIDE 40 MG/4 ML INJ (LASIX) IVP NR ×2 (14:00→20:00)
[2017-11-04] MEDS ORDERED: RAMELTEON 8 MG (ROZEREM) TAB PO PRN (14:00)
[2017-11-04] MEDS ORDERED: LORazepam 1 MG (ATIVAN) TAB PO PRN (14:00)
[2017-11-04] MEDS ORDERED: HYDROcodone/APAP 5 MG/325 MG (LORTAB) TAB PO PRN (14:00)
[2017-11-04] MEDS ORDERED: ALBUMIN 25% 25 GM/100 ML 50 ML IV NR (14:00)
[2017-11-04] MEDS ORDERED: OXYMETAZOLINE (AFRIN) 0.05% NA 15 ML BTL PRN (14:15)
[2017-11-04] MEDS ORDERED: METO-370 PO (14:32)
[2017-11-04] MEDS: RT-ALBUTEROL/IPRATROPIUM 3 ML (DUONEB) VIAL INH SCH ×3 (15:13→22:21)
[2017-11-04 15:23] LABS: PROTHROMBIN TIME PATIENT 80.8 SEC (12.2-14.7)
[2017-11-04] MEDS ORDERED: CLONAZEPAM 1 MG PO PRN (16:15)
[2017-11-04] MEDS ORDERED: HYDROcodone/APAP 10 MG/325 MG (LORTAB) TAB PO PRN (16:15)
[2017-11-04] MEDS ORDERED: methylPREDNISolone 125 MG (Solu-MEDROL) VIAL IVP NR (16:15)
[2017-11-04] MEDS ORDERED: ONDANSETRON 4 MG (ZOFRAN) ORAL DISSOLVE TAB PO PRN (16:15)
[2017-11-04] MEDS ORDERED: VITAMIN K 1 MG/ML ORAL SOLN 1 ML SYRINGE PO NR (16:15)
[2017-11-04] MEDS ORDERED: PROMETHAZINE INJ 25 MG/ML (PHENERGAN) AMP IVP PRN (16:15)
[2017-11-04] MEDS ORDERED: POLYETHYLENE GLYCOL 17 GM (MIRALAX) PACK PO PRN (16:15)
[2017-11-04] MEDS: inSUlin ASPART (NovoLOG) 1 UNIT/0.01 ML (CHARGE PER UNIT) SC SCH ×2 (16:20→22:16)
[2017-11-04] MEDS ORDERED: clonazePAM 1 MG (KlonoPIN) TAB PO PRN (16:30)
[2017-11-04] MEDS: PIPERACILLIN/TAZO 3.375 GM/D5W 100 ML IV SCH ×2 (16:36)
[2017-11-04] MEDS ORDERED: ALBUMIN 25% 25 GM/100 ML 50 ML IV ONE (20:00)
[2017-11-04] MEDS ORDERED: NON-FORMULARY MEDICATION 1 EA EA (Topiramate 50 MG) PO SCH (21:00)
[2017-11-04] MEDS ORDERED: NON-FORMULARY MEDICATION 1 EA EA (Lovastatin (Lovastatin 20 Mg) 20 MG) PO SCH (21:00)
[2017-11-04] MEDS ORDERED: ENALAPRIL 5 MG (VASOTEC) TAB PO SCH (21:00)
[2017-11-04] MEDS ORDERED: ENALAPRIL MALEATE 5 MG PO SCH (21:00)
[2017-11-04] MEDS: toPIRamate 25 MG (TOPAMAX) TAB PO SCH (22:16)
[2017-11-04] MEDS: DOCUSATE SODIUM 100 MG (COLACE) CAP PO SCH (22:17)
[2017-11-04] MEDS: ATORVASTATIN 10 MG (LIPITOR) TABLET PO SCH (22:17)
[2017-11-04] MEDS: cloNIDine 0.2 MG (CATAPRES) TAB PO SCH (22:17)
[2017-11-05] VITALS (21 sets, daily range): BP systolic 102–134; BP diastolic 60–90
[2017-11-05] MEDS: PIPERACILLIN/TAZO 3.375 GM/D5W 100 ML IV SCH ×8 (00:02→23:33)
[2017-11-05] MEDS: RT-ALBUTEROL/IPRATROPIUM 3 ML (DUONEB) VIAL INH SCH ×6 (02:12→22:00)
[2017-11-05 04:11] LABS: BASOPHILS % (AUTO) 0 % (0-10); EOSINOPHILS % (AUTO) 0 % (0-10); HEMATOCRIT 35 % (40-54); LYMPHOCYTES # (AUTO) 0.6 X 10^3 (1.0-4.0); LYMPHOCYTES % (AUTO) 4 % (12-44); MEAN CORPUSCULAR HEMOGLOBIN 26 PG (25-34); MEAN CORPUSCULAR HGB CONC 31 G/DL (32-36); MEAN CORPUSCULAR VOLUME 83 FL (80-99); MEAN PLATELET VOLUME 11.2 FL (7.4-10.4); MONOCYTES # (AUTO) 0.2 X 10^3 (0.0-1.0); MONOCYTES % (AUTO) 1 % (0-12); NEUTROPHILS # (AUTO) 13.1 X 10^3 (1.8-7.8); NEUTROPHILS % (AUTO) 94 % (42-75); PLATELET COUNT 280 10^3/uL (130-400); RED BLOOD COUNT 4.26 10^6/uL (4.35-5.85); RED CELL DISTRIBUTION WIDTH 15.8 % (10.0-14.5); WHITE BLOOD COUNT 13.9 10^3/uL (4.3-11.0)
[2017-11-05 04:26] LABS: INR 3.1 (0.8-1.4)
[2017-11-05 04:31] LABS: CALCIUM 8.3 MG/DL (8.5-10.1); CREATININE SERUM 1.4 MG/DL (0.60-1.30); MAGNESIUM 1.9 MG/DL (1.8-2.4); POTASSIUM 4.3 MMOL/L (3.6-5.0)
[2017-11-05] MEDS ORDERED: POTASSIUM CL 10MEQ/50ML IVPB 50 ML IV SCH (06:00)
[2017-11-05] MEDS ORDERED: MAGNESIUM 1 GM/100 ML IVPB 100 ML IV SCH (06:00)
[2017-11-05] MEDS ORDERED: KCL 20 MEQ TAB (K-DUR) PO SCH (06:00)
[2017-11-05] MEDS: inSUlin ASPART (NovoLOG) 1 UNIT/0.01 ML (CHARGE PER UNIT) SC SCH ×4 (06:22→21:12)
[2017-11-05] MEDS: methylPREDNISolone 40 MG/ML (Solu-MEDROL) VIAL IV SCH ×4 (06:22→23:32)
[2017-11-05] MEDS: NS IV 1000 ML 1,000 ML IV SCH ×2 (06:50→22:05)
--- NOTE | 2017-11-05 07:47 | Diagnostic Imaging Report ---
Indication: Hemoptysis. Shortness of air. Comparison: 11/04/2017 Findings: Single frontal radiographic view of the chest was obtained and continues to show mild to moderate cardiomegaly. Pulmonary vascular congestion shows interval improvement. Left-sided dual-lead pacemaker is noted. There is a subtle ill-defined alveolar opacification involving the medial right lung base. Otherwise, lungs are clear. No large effusion or pneumothorax is seen. Bony structures show no gross acute abnormalities. Impression: 1. Persistent cardiomegaly, but with interval improved pulmonary vascular congestion. 2. Possible alveolar infiltrate within the medial right lung base. Followup is recommended. Dictated by: Dictated on workstation # [id number]
[2017-11-05] MEDS: DOCUSATE SODIUM 100 MG (COLACE) CAP PO SCH ×2 (08:12→21:12)
[2017-11-05] MEDS: cloNIDine 0.2 MG (CATAPRES) TAB PO SCH ×2 (08:12→21:12)
[2017-11-05] MEDS: ENALAPRIL 10 MG (VASOTEC) TAB PO SCH ×2 (08:13→21:12)
[2017-11-05] MEDS: amLODIPine 10 MG (NORVASC) TAB PO SCH (08:13)
[2017-11-05] MEDS: PARoxetine 20 MG (PAXIL) TAB PO SCH (08:15)
[2017-11-05] MEDS: meTOproloL SUCCINATE 50 MG (TOPROL XL) TAB PO SCH (08:15)
[2017-11-05] MEDS: toPIRamate 25 MG (TOPAMAX) TAB PO SCH ×2 (08:15→21:12)
--- NOTE | 2017-11-05 11:13 | Progress Note (SOAP) ---
Subjective Subjective/Events-last exam No acute events overnight. Pt was able to tolerate bipap while asleep. This morning he is sitting up in bed, eating lunch and reports feeling much better. Afebrile. Has been able to wean down on his oxygen slightly, now on 4-5L NC, down from 7L yesterday. No complaints. Some of his blood pressure medications held this morning, pt has remained normotensive. Review of Systems Date Seen by Provider: Nov 05, 2017 Time Seen by Provider: 11:50 General: No Chills, No Night Sweats, No Fatigue HEENT: No Visual Changes, No Dysphasia, No Sore Throat Pulmonary: Dyspnea Cardiovascular: No: Chest Pain, Palpitations Gastrointestinal: No: Nausea, Vomiting, Abdominal Pain Genitourinary: No Dysuria, No Retention Neurological: No: Weakness, Numbness, Incoordination, Change in speech, Confusion, Seizures Focused Exam Lactate Level 11/04/17 07:11: Lactic Acid Level 1.65 Objective Exam Last Set of Vital Signs Vital Signs Date Time Temp Pulse Resp B/P (MAP) Pulse Ox O2 Delivery O2 Flow Rate FiO2 11/05/17 11:00 72 21 114/66 (82) 94 High Flow N/C 5.00 11/04/17 20:12 99.6 11/04/17 08:15 90 Capillary Refill : Less Than 3 Seconds I&O Intake and Output 11/04/17 23:59 Intake Total 3650 ml Output Total 1525 ml Balance 2125 ml Intake Oral 500 ml IV Total 3150 ml Output Urine Total 1525 ml # Bowel Movements 1 Daily Weight Change No General: Alert, Oriented X3, Cooperative, No Acute Distress HEENT: Atraumatic, EOMI, Mucous Memb Moist/[place] Neck: Supple, No Thyromegaly Lungs: Other (diminished in bases, right more than left) Heart: Regular Rate, Normal S1, Normal S2 Abdomen: Normal Bowel Sounds, Soft, No Tenderness, No Masses Extremities: No Clubbing, No Cyanosis, Normal Pulses Skin: No Rashes, No Significant Lesion Neuro: Normal Speech, Normal Tone, Sensation Intact, Cranial Nerves 3-12 NL Psych/Mental Status: Mental Status NL, Mood NL Results/Procedures Lab Laboratory Tests 11/04/17 14:42: Prothrombin Time 80.8*H, INR Comment 10.0*H 11/04/17 16:15: Glucometer 130H 11/04/17 21:56: Glucometer 202H 11/05/17 03:00: Prothrombin Time 32.0H, INR Comment 3.1H, White Blood Count 13.9H, Red Blood Count 4.26L, Hemoglobin 11.0L, Hematocrit 35L, Mean Corpuscular Volume 83, Mean Corpuscular Hemoglobin 26, Mean Corpuscular Hemoglobin Concent 31L, Red Cell Distribution Width 15.8H, Platelet Count 280, Mean Platelet Volume 11.2H, Neutrophils (%) (Auto) 94H, Lymphocytes (%) (Auto) 4L, Monocytes (%) (Auto) 1, Eosinophils (%) (Auto) 0, Basophils (%) (Auto) 0, Neutrophils # (Auto) 13.1H, Lymphocytes # (Auto) 0.6L, Monocytes # (Auto) 0.2, Eosinophils # (Auto) 0.0, Basophils # (Auto) 0.0, Activated Partial Thromboplast Time 76H, Sodium Level 138, Potassium Level 4.3, Chloride Level 107, Carbon Dioxide Level 19L, Anion Gap 12, Blood Urea Nitrogen 22H, Creatinine 1.40H, Estimat Glomerular Filtration Rate 50, BUN/Creatinine Ratio 16, Glucose Level 195H, Calcium Level 8.3L, Magnesium Level 1.9, C-Reactive Protein High Sensitivity 11.63H Radiology Date of Exam:11/05/17 CHEST 1 VIEW, AP/PA ONLY Indication: Hemoptysis. Shortness of air. Comparison: 11/04/2017 Findings: Single frontal radiographic view of the chest was obtained and continues to show mild to moderate cardiomegaly. Pulmonary vascular congestion shows interval improvement. Left-sided dual-lead pacemaker is noted. There is a subtle ill-defined alveolar opacification involving the medial right lung base. Otherwise, lungs are clear. No large effusion or pneumothorax is seen. Bony structures show no gross acute abnormalities. Impression: 1. Persistent cardiomegaly, but with interval improved pulmonary vascular congestion. 2. Possible alveolar infiltrate within the medial right lung base. Followup is recommended. Date of Exam: 11/04/17 CHEST 1 VIEW, AP/PA ONLY INDICATION: Coughing up blood, shortness of air EXAMINATION: Chest 11/04/2017 COMPARISON: 11/16/2015 FINDINGS: There is cardiomegaly. Pulmonary vascular congestion noted with mild edema throughout both lungs. Bibasilar atelectasis versus infiltrates noted. No significant effusions. No pneumothorax. Left-sided pacemaker and postoperative change right shoulder stable. Assessment/Plan Assessment/Plan (1) Sepsis Status: Acute Assessment & Plan: 11/04 -given admission RR 32, Temp 101, WBC 16.9 and bilateral PNA per CXR -see below for further details 11/05 -overall much improved, will transfer to floor today -see below for further details Qualifiers: Qualified Codes: A41.9 - Sepsis, unspecified organism (2) Acute respiratory failure with hypoxemia Status: Acute Assessment & Plan: 11/04 -room air with no known lung disease per pt report -86% on room air on arrival, placed on NC -ABG in ED shows pH 7.33, PaCO2 37, PaO2 77 on NC -at the time of exam, pt requiring 7L high flow NC to maintain sats >93% -duonebs Q4H -BiPap when asleep if patient able to tolerate 11/05 -pt able to tolerate bipap while asleep -recommend repeat sleep study and pt trying home cpap again after discharge -oxygen requirements trending down, now on 4-5L NC, will continue to wean as tolerated (3) Pneumonia of both lower lobes Status: Acute Assessment & Plan: 11/04 -bibasilar infiltrates vs atelectasis -WBC 16.9 -repeat CBC, add CRP in AM -Zosyn Day 1 -Solu-Medrol 125 mg Day 1, then 40 mg Q6H -BiPap when asleep if tolerated 11/05 -CXR this AM shows right lower infiltrate, improved edema -repeat CXR tomorrow AM, but will get 2V -Zosyn Day 2 -WBC 16.9 --> 13.9 -CRP 11.63 Qualifiers: Qualified Codes: J18.1 - Lobar pneumonia, unspecified organism (4) Pulmonary edema w/congestive heart failure w/preserved LV function Status: Acute Assessment & Plan: 11/04 -CXR shows vascular congestion -lasix and albumin given x1; pt requires fluid bolus secondary to sepsis guidelines -will repeat lasix and albulin at 2000 tonight -repeat CXR in AM -I&O -Daily weight 11/05 -I&O net +2124 yesterday -weight +3 kg -CXR shows improvement in vascular congestion (5) Grade II diastolic dysfunction Status: Chronic Assessment & Plan: 11/04 Echo 09/02/17 (6) Acute kidney injury Status: Acute Assessment & Plan: 11/04 -Cr 1.41, GFR 49 -pt's baseline appears to be Cr 1.04, GFR 72 per clinic labs 02/11/1711/05 -Cr 1.41 --> 1.4 -GFR 49 --> 50 -continue to monitor; will hold on lasix today and see if that helps improve kidney function (7) Hypertension Status: Chronic Assessment & Plan: 11/04 -will resume home meds with hold parameters; pt currently with SPB ~105, no antihypertensives have been given today -will monitor closely 11/05 -some meds held this morning; pt normotensive and baseline takes significant amount of antihypertensives; beta stanley given this AM and other meds held -will continue home meds tonight if pressure able to tolerate Qualifiers: Qualified Codes: I10 - Essential (primary) hypertension (8) Sleep apnea Status: Chronic Assessment & Plan: 11/04 -pt reports he does not use CPAP at home because "he couldn't stand the mask" -is willing to try bipap in the hospital -will make ativan available PRN 11/05 -able to tolerate bipap overnight -would recommend home CPAP; depending on length of time elapsed, pt may need new sleep study -suspect that untreated sleep apnea is significant contributor to his hypertension Qualifiers: Qualified Codes: G47.30 - Sleep apnea, unspecified (9) Supratherapeutic INR Status: Acute Assessment & Plan: 11/04 -INR 11.2 on arrival in ED, repeat 11.4 --> pt given 2.5 mg Vit K PO -INR recheck this afternoon 10; no active bleeding, but given INR still 10, reasonable to give pt additional Vitamin K, 5 mg PO x1 -recheck PT, PTT, INR in AM -hold coumadin 11/05 -INR 11.2 --> 11.4 --> 10 --> 3.1 -hold coumadin today -recheck INR in AM, will plan to restart when in therapeutic window (10) Type II diabetes mellitus with complication Status: Chronic Assessment & Plan: 11/04 -per clinic records, last A1C was 7.2 in December 2016 -check A1C with AM labs -hold metformin and Actos for now; pt with elevation in Cr above his baseline -sliding scale insulin, accucheck AC and HS -diabetic diet 11/05 -A1C pending -continue sliding scale, hold oral meds -pt sugars also likely elevated secondary to steroid use Qualifiers: Qualified Codes: E11.8 - Type 2 diabetes mellitus with unspecified complications (11) Dyslipidemia Status: Chronic Assessment & Plan: 11/04 -resume home meds (12) History of stroke Status: Chronic (13) Anxiety Status: Chronic Assessment & Plan: 11/04 -resume home clonazepam -ativan PRN anxiety or agitation, especially if patient is willing to try bipap when sleeping (14) Major depression, recurrent Status: Chronic Qualifiers: Qualified Codes: F33.9 - Major depressive disorder, recurrent, unspecified (15) Pacemaker Status: Chronic Permanent Comment: placed in 2007 secondary to sick sinus syndrome; generator change 2015 Last Edited By: Olena Toussaint on Nov 04, 2017 20:37 (16) CAD (coronary artery disease), [place] coronary artery Status: Chronic Permanent Comment: Cardiac Cath 2016 50-60% distal LAD stenosis 50-60% stenosis at proximal and mid RCA 50% circumflex stenosis followed by aneurysmal dilation EF 60% Elevated left end diastolic pressure Last Edited By: Olena Toussaint on Nov 04, 2017 20:39 Qualifiers: Qualified Codes: I25.10 - Atherosclerotic heart disease of [place] coronary artery without angina pectoris (17) Concentric left ventricular hypertrophy Status: Chronic Permanent Comment: per echo, most recently 09/02/17 Last Edited By: Olena Toussaint on Nov 04, 2017 20:40 (18) Chronic GERD Status: Chronic Assessment & Plan: 11/04 -resume home meds (19) Insomnia Status: Chronic Assessment & Plan: 11/04 -resume home meds -Ramelteon 8 mg at HS PRN sleep -ativan PRN, especially if pt willing to try using bipap when asleep Qualifiers: Qualified Codes: F51.01 - 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 (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 Assessment & Plan: 11/04 -IM every 2 weeks -last dose 10/29/17 (21) Hearing difficulty Status: Chronic Qualifiers: Qualified Codes: H91.93 - Unspecified hearing loss, bilateral (22) Chronic fatigue Status: Chronic (23) Arthritis Status: Chronic Assessment & Plan: 11/04 -resume home pain medications; [place] 5/325 -will make [place] 10/325 available for severe pain only (24) Obesity (BMI 30-39.9) Status: Chronic (25) DVT prophylaxis Status: Acute Assessment & Plan: 11/04 -currently with supratherapeutic INR, will hold on chemoprophylaxis -SCDs Clinical Quality Measures DVT/VTE Risk/Contraindication: VTE Addressed: Yes VTE Present on Admission: No Risk Factor Score Per Nursin RFS Level Per Nursing on Admit: 4+=Very High Contraindications-Pharm: Other *list below* (supratherapeutic INR of 11.4 on admission; pt using SCDs and will restart chemoprophylaxis when INR normalized) Pneumonia: Pseudomonal Risk: No known risk Urinary Catheter-Non SCIP Pts: Reason for Catheter Continuanc: Accurate I&O Copy Copies To 1: [facility]/OLENA VILLA DO Nov 05, 2017 11:13
[2017-11-05] MEDS ORDERED: FUROSEMIDE 40 MG/4 ML INJ (LASIX) IVP NR (12:00)
--- NOTE | 2017-11-05 14:07 | Physical Therapy Evaluation ---
PT Evaluation-General Medical Diagnosis Admission Date Nov 04, 2017 at 09:20 Medical Diagnosis: pneumonia Onset Date: Nov 04, 2017 Therapy Diagnosis Therapy Diagnosis: debility Height/Weight Height (Feet): 5 Height (Inches): 9.00 Weight (Pounds): 256 Weight (Ounces): 2.0 Precautions Precautions/Isolations: Fall Prevention, Standard Precautions Weight Bear Status Right Lower Extremity: Right Full Weight Bearing Left Lower Extremity: Left Full Weight Bearing Referral Physician: Breana Reason for Referral: Evaluation/Treatment Medical History Pertinent Medical History: CAD, DM, HTN Additional Medical History pacemaker Current History ED with SOB and coughing up blood/elevated INR Reviewed History: Yes Social History Home: Single Level Current Living Status: Spouse Prior/Core FIM Prior Level of Function Functional [place] Measure 0=Not Assessed/NA 4=Minimal Assistance 1=Total Assistance 5=Supervision or Setup 2=Maximal Assistance 6=Modified [place] 3=Moderate Assistance 7=Complete [place] Bed Mobility: 7 Transfers (B,C,W/C) (FIM): 7 Gait: 7 Locomotion: 7 PT Evaluation-Current Subjective Patient agrees to PT. Pain Numeric Pain Scale: 5-Moderate Pain Location: Lower Location Body Site: Abdomen Pain Description: Pressure Objective Patient Orientation: Normal For Age Problem Solving: Fair Attachments: Oxygen (4L HF), IV ROM/Strength ROM Lower Extremities bilateral LE WNL Strength Lower Extremities 4+/5 grossly bilaterally Integumentary/Posture Integumentary refer to nursing notes Bowel Incontinence: No Bladder Incontinence: No Posture WFL Neuromuscular (Tone, Coordination, Reflexes) grossly intact Sensory Vision: Wears Glasses Hearing: Functional Sensation Right Lower Extremit: Impaired Sensation Left Lower Extremity: Impaired Transfers Functional [place] Measure 0=Not Assessed/NA 4=Minimal Assistance 1=Total Assistance 5=Supervision or Setup 2=Maximal Assistance 6=Modified [place] 3=Moderate Assistance 7=Complete [place] Transfers (B, C, W/C) (FIM): 7 Scootin Rollin Supine to/from Sit: 7 Sit to/from Stand: 7 Gait Mode of Locomotion: Walk Anticipated Mode of Locomotion: Walk Gait (FIM): 7 Distance (FIM): 3=150 ft Distance: 300' Gait Level of Assist: 7 Gait Assistive Device: None Comments/Gait Description safe and functional with no deviation Balance Sitting Static: Normal Sitting Dynamic: Normal Standing Static: Normal Standing Dynamic: Normal Assessment/Needs 72 y.o. male, is currently at independent PLOF with all gross motor skills safely and does not require skilled PT intervention. PT encouraged patient and family to ambulate PRN in hallway with O2 at 4L. Both voice understanding. RN notified of POC. Rehab Potential: Fair PT Plan Treatment/Plan Treatment Plan: Discontinue PT, goals met Treatment Plan: Other Treatment Duration: Nov 05, 2017 Frequency: 1 time per week Estimated Hrs Per Day: .5 hour per day Patient and/or Family Agrees t: Yes Safety Risks/Education Patient Education: Disease Process, Safety Issues Teaching Recipient: Patient, Family Teaching Methods: Discussion Response to Teaching: Verbalize Understanding Discharge Recommendations Therapy D/C Recommendations: Home w/ Family Support Time/GCodes Time In: 1330 Time Out: 1350 Total Billed Treatment Time: 20 Total Billed Treatment 1 visit EVModC 20 min LUCÍA HUSTON PT Nov 05, 2017 14:07
[2017-11-05] MEDS: ATORVASTATIN 10 MG (LIPITOR) TABLET PO SCH (21:13)
[2017-11-06 00:38] VITALS: BP 126/58
[2017-11-06] MEDS: RT-ALBUTEROL/IPRATROPIUM 3 ML (DUONEB) VIAL INH SCH ×6 (02:25→23:54)
[2017-11-06 03:51] VITALS: BP 127/59
[2017-11-06 05:45] LABS: BASOPHILS % (AUTO) 0 % (0-10); EOSINOPHILS % (AUTO) 0 % (0-10); HEMATOCRIT 35 % (40-54); HEMOGLOBIN 11.2 G/DL (13.3-17.7); LYMPHOCYTES # (AUTO) 0.5 X 10^3 (1.0-4.0); LYMPHOCYTES % (AUTO) 3 % (12-44); MEAN CORPUSCULAR HEMOGLOBIN 26 PG (25-34); MEAN CORPUSCULAR HGB CONC 32 G/DL (32-36); MEAN CORPUSCULAR VOLUME 82 FL (80-99); MONOCYTES # (AUTO) 0.6 X 10^3 (0.0-1.0); MONOCYTES % (AUTO) 3 % (0-12); NEUTROPHILS # (AUTO) 15.8 X 10^3 (1.8-7.8); NEUTROPHILS % (AUTO) 94 % (42-75); PLATELET COUNT 307 10^3/uL (130-400); RED BLOOD COUNT 4.24 10^6/uL (4.35-5.85); RED CELL DISTRIBUTION WIDTH 15.7 % (10.0-14.5); WHITE BLOOD COUNT 16.9 10^3/uL (4.3-11.0)
[2017-11-06 06:18] LABS: ANISOCYTOSIS SLIGHT; BAND NEUTROPHILS 0 %; BASOPHILS % (MANUAL) 0 %; CALCIUM 8.6 MG/DL (8.5-10.1); CREATININE SERUM 1.48 MG/DL (0.60-1.30); EOSINOPHILS % (MANUAL) 0 %; LYMPHOCYTES % (MANUAL) 5 %; MAGNESIUM 1.7 MG/DL (1.8-2.4); MONOCYTES % (MANUAL) 3 %; NEUTROPHILS % (MANUAL) 92 %; POLYCHROMASIA SLIGHT; POTASSIUM 4.1 MMOL/L (3.6-5.0); TARGET CELLS SLIGHT
[2017-11-06] MEDS: methylPREDNISolone 40 MG/ML (Solu-MEDROL) VIAL IV SCH ×3 (06:22→17:40)
[2017-11-06] MEDS: inSUlin ASPART (NovoLOG) 1 UNIT/0.01 ML (CHARGE PER UNIT) SC SCH ×4 (06:22→20:59)
[2017-11-06] MEDS: PIPERACILLIN/TAZO 3.375 GM/D5W 100 ML IV SCH ×6 (06:23→23:00)
[2017-11-06 06:30] LABS: PROTHROMBIN TIME PATIENT 22.8 SEC (12.2-14.7)
[2017-11-06 08:00] VITALS: BP 127/59
[2017-11-06] MEDS: DOCUSATE SODIUM 100 MG (COLACE) CAP PO SCH ×2 (08:29→20:59)
[2017-11-06] MEDS: toPIRamate 25 MG (TOPAMAX) TAB PO SCH ×2 (08:29→20:59)
[2017-11-06] MEDS: meTOproloL SUCCINATE 50 MG (TOPROL XL) TAB PO SCH (08:29)
[2017-11-06] MEDS: amLODIPine 10 MG (NORVASC) TAB PO SCH (08:29)
[2017-11-06] MEDS: ENALAPRIL 10 MG (VASOTEC) TAB PO SCH ×2 (08:29→20:59)
[2017-11-06] MEDS: cloNIDine 0.2 MG (CATAPRES) TAB PO SCH ×2 (08:29→20:59)
[2017-11-06] MEDS: PARoxetine 20 MG (PAXIL) TAB PO SCH (08:30)
--- NOTE | 2017-11-06 09:00 | Diagnostic Imaging Report ---
INDICATION: Pneumonia. PA and lateral views of the chest are obtained with comparison made to study of one day earlier. FINDINGS: Heart size and pulmonary vascularity are at the upper limits of normal. There is blunting of left costophrenic sulcus. Left anterior chest wall dual-chamber cardiac pacemaker remains in stable position. Surgical findings in the right shoulder and degenerative findings in the left shoulder are again noted. IMPRESSION: Mild left pleural fluid and/or thickening with subjacent atelectasis. Otherwise, no acute abnormality or adverse change is seen. Dictated by: Dictated on workstation # [id number]
--- NOTE | 2017-11-06 10:00 | Progress Note (SOAP) ---
Subjective Subjective/Events-last exam Pt sitting up in chair at bedside. Reports he is feeling well. He has weaned down on his oxygen, and is currently using 2L per NC. He feels like his breathing is better, although he does notice that he gets short of breath with minimal activity. No acute events overnight. No concerns from nursing staff. Review of Systems Date Seen by Provider: Nov 06, 2017 Time Seen by Provider: 14:20 General: No Chills, No Night Sweats HEENT: No Head Aches, No Dysphasia Pulmonary: Dyspnea; No Pleuritic Chest Pain Cardiovascular: No: Chest Pain, Palpitations Gastrointestinal: No: Nausea, Vomiting, Abdominal Pain Genitourinary: No Dysuria, No Retention Neurological: No: Weakness, Numbness, Incoordination, Change in speech, Confusion, Seizures Focused Exam Lactate Level 11/04/17 07:11: Lactic Acid Level 1.65 Objective Exam Last Set of Vital Signs Vital Signs Date Time Temp Pulse Resp B/P (MAP) Pulse Ox O2 Delivery O2 Flow Rate FiO2 11/06/17 08:00 98.6 64 18 127/59 (81) 91 High Flow N/C 3.00 11/04/17 08:15 90 Capillary Refill : Less Than 3 Seconds I&O Intake and Output 11/06/17 00:00 Intake Total 1045 ml Output Total 2250 ml Balance -1205 ml Intake Oral 945 ml IV Total 100 ml Output Urine Total 2200 ml Post Void Residual 50 ml General: Alert, Oriented X3, Cooperative, No Acute Distress HEENT: Atraumatic, EOMI, Mucous Memb Moist/Normal Neck: Supple, No Thyromegaly Lungs: Clear to Auscultation, Normal Air Movement Heart: Regular Rate, Normal S1, Normal S2 Abdomen: Normal Bowel Sounds, Soft, No Tenderness, No Masses Extremities: No Clubbing, No Cyanosis, Normal Pulses Skin: No Rashes, No Significant Lesion Neuro: Normal Speech, Normal Tone, Sensation Intact, Cranial Nerves 3-12 NL Psych/Mental Status: Mental Status NL, Mood NL Results/Procedures Lab Laboratory Tests 11/05/17 11:29: Glucometer 187H 11/05/17 15:57: Glucometer 164H 11/05/17 20:36: Glucometer 236H 11/06/17 05:31: Glucometer 219H 11/06/17 05:35: White Blood Count 16.9H, Red Blood Count 4.24L, Hemoglobin 11.2L, Hematocrit 35L , Mean Corpuscular Volume 82, Mean Corpuscular Hemoglobin 26, Mean Corpuscular Hemoglobin Concent 32, Red Cell Distribution Width 15.7H, Platelet Count 307, Mean Platelet Volume 11.0H, Neutrophils (%) (Auto) 94H, Lymphocytes (%) (Auto) 3L, Monocytes (%) (Auto) 3, Eosinophils (%) (Auto) 0, Basophils (%) (Auto) 0, Neutrophils # (Auto) 15.8H, Lymphocytes # (Auto) 0.5L, Monocytes # (Auto) 0.6, Eosinophils # (Auto) 0.0, Basophils # (Auto) 0.0, Neutrophils % (Manual) 92, Lymphocytes % (Manual) 5, Monocytes % (Manual) 3, Eosinophils % (Manual) 0, Basophils % (Manual) 0, Band Neutrophils 0, Polychromasia SLIGHT, Anisocytosis SLIGHT, Target Cells SLIGHT, Prothrombin Time 22.8H, INR Comment 2.0H, Activated Partial Thromboplast Time 42H, Sodium Level 137, Potassium Level 4.1, Chloride Level 106, Carbon Dioxide Level 17L, Anion Gap 14, Blood Urea Nitrogen 31H, Creatinine 1.48H, Estimat Glomerular Filtration Rate 47, BUN/Creatinine Ratio 21, Glucose Level 248H, Calcium Level 8.6, Magnesium Level 1.7L, C- Reactive Protein High Sensitivity 5.87H Microbiology 11/04/17 Blood Culture - Preliminary, Resulted No growth 11/04/17 MRSA Screen - Final, Complete MRSA not isolated Radiology Date of Exam:11/06/17 CHEST PA/LAT (2 VIEW) INDICATION: Pneumonia. PA and lateral views of the chest are obtained with comparison made to study of one day earlier. FINDINGS: Heart size and pulmonary vascularity are at the upper limits of normal. There is blunting of left costophrenic sulcus. Left anterior chest wall dual-chamber cardiac pacemaker remains in stable position. Surgical findings in the right shoulder and degenerative findings in the left shoulder are again noted. IMPRESSION: Mild left pleural fluid and/or thickening with subjacent atelectasis. Otherwise, no acute abnormality or adverse change is seen. Date of Exam:11/05/17 CHEST 1 VIEW, AP/PA ONLY Indication: Hemoptysis. Shortness of air. Comparison: 11/04/2017 Findings: Single frontal radiographic view of the chest was obtained and continues to show mild to moderate cardiomegaly. Pulmonary vascular congestion shows interval improvement. Left-sided dual-lead pacemaker is noted. There is a subtle ill-defined alveolar opacification involving the medial right lung base. Otherwise, lungs are clear. No large effusion or pneumothorax is seen. Bony structures show no gross acute abnormalities. Impression: 1. Persistent cardiomegaly, but with interval improved pulmonary vascular congestion. 2. Possible alveolar infiltrate within the medial right lung base. Followup is recommended. Date of Exam: 11/04/17 CHEST 1 VIEW, AP/PA ONLY INDICATION: Coughing up blood, shortness of air EXAMINATION: Chest 11/04/2017 COMPARISON: 11/16/2015 FINDINGS: There is cardiomegaly. Pulmonary vascular congestion noted with mild edema throughout both lungs. Bibasilar atelectasis versus infiltrates noted. No significant effusions. No pneumothorax. Left-sided pacemaker and postoperative change right shoulder stable. Assessment/Plan Assessment/Plan (1) Sepsis Status: Acute Assessment & Plan: 11/04 -given admission RR 32, Temp 101, WBC 16.9 and bilateral PNA per CXR -see below for further details 11/05 -overall much improved, will transfer to floor today -see below for further details Qualifiers: Qualified Codes: A41.9 - Sepsis, unspecified organism (2) Acute respiratory failure with hypoxemia Status: Acute Assessment & Plan: 11/04 -room air with no known lung disease per pt report -86% on room air on arrival, placed on NC -ABG in ED shows pH 7.33, PaCO2 37, PaO2 77 on NC -at the time of exam, pt requiring 7L high flow NC to maintain sats >93% -duonebs Q4H -BiPap when asleep if patient able to tolerate 11/05 -pt able to tolerate bipap while asleep -recommend repeat sleep study and pt trying home cpap again after discharge -oxygen requirements trending down, now on 4-5L NC, will continue to wean as tolerated 11/06 -continues to improve, now down to 2L -anticipate discharge when stable on room air, likely in the next 24-48 hours if patient continues on current clinical course (3) Pneumonia of both lower lobes Status: Acute Assessment & Plan: 11/04 -bibasilar infiltrates vs atelectasis -WBC 16.9 -repeat CBC, add CRP in AM -Zosyn Day 1 -Solu-Medrol 125 mg Day 1, then 40 mg Q6H -BiPap when asleep if tolerated 11/05 -CXR this AM shows right lower infiltrate, improved edema -repeat CXR tomorrow AM, but will get 2V -Zosyn Day 2 -WBC 16.9 --> 13.9 -CRP 11.63 11/06 -2V CXR shows mild left pleural thickening and/or fluid with adjacent atelectasis with blunted left costophrenic sulcus -Zosyn Day 3 -WBC 16.9 --> 13.9 --> 16.9 -CRP 11.63 --> 5.87 -IV solumedrol to stop tonight, start prednisone taper - 10 days - in AM -Lasix 40 mg x1 today Qualifiers: Qualified Codes: J18.1 - Lobar pneumonia, unspecified organism (4) Pulmonary edema w/congestive heart failure w/preserved LV function Status: Acute Assessment & Plan: 11/04 -CXR shows vascular congestion -lasix and albumin given x1; pt requires fluid bolus secondary to sepsis guidelines -will repeat lasix and albulin at 2000 tonight -repeat CXR in AM -I&O -Daily weight 11/05 -I&O net +2125 yesterday -weight +3 kg -CXR shows improvement in vascular congestion 11/06 -I&O net -1205 yesterday -weight +1 kg -Lasix 40 mg x1 today (5) Grade II diastolic dysfunction Status: Chronic Assessment & Plan: 11/04 Echo 09/02/17 (6) Acute kidney injury Status: Acute Assessment & Plan: 11/04 -Cr 1.41, GFR 49 -pt's baseline appears to be Cr 1.04, GFR 72 per clinic labs 02/11/1711/05 -Cr 1.41 --> 1.4 -GFR 49 --> 50 -continue to monitor; will hold on lasix today and see if that helps improve kidney function 11/06 -Cr 1.41 --> 1.4 --> 1.48 -GFR 49 --> 50 --> 47 -continue to trend, pt will need renal function trended after discharge to see if he has developed kidney disease secondary to hypertension and/or diabetes (7) Hypertension Status: Chronic Assessment & Plan: 11/04 -will resume home meds with hold parameters; pt currently with SPB ~105, no antihypertensives have been given today -will monitor closely 11/05 -some meds held this morning; pt normotensive and baseline takes significant amount of antihypertensives; beta stan[place] given this AM and other meds held -will continue home meds tonight if pressure able to tolerate 11/06 -pt has resumed home meds and is tolerating well Qualifiers: Qualified Codes: I10 - Essential (primary) hypertension (8) Sleep apnea Status: Chronic Assessment & Plan: 11/04 -pt reports he does not use CPAP at home because "he couldn't stand the mask" -is willing to try bipap in the hospital -will make ativan available PRN 11/05 -able to tolerate bipap overnight -would recommend home CPAP; depending on length of time elapsed, pt may need new sleep study -suspect that untreated sleep apnea is significant contributor to his hypertension Qualifiers: Qualified Codes: G47.30 - Sleep apnea, unspecified (9) Supratherapeutic INR Status: Resolved Assessment & Plan: 11/04 -INR 11.2 on arrival in ED, repeat 11.4 --> pt given 2.5 mg Vit K PO -INR recheck this afternoon 10; no active bleeding, but given INR still 10, reasonable to give pt additional Vitamin K, 5 mg PO x1 -recheck PT, PTT, INR in AM -hold coumadin 11/05 -INR 11.2 --> 11.4 --> 10 --> 3.1 -hold coumadin today -recheck INR in AM, will plan to restart when in therapeutic window 11/06 -INR 11.2 --> 11.4 --> 10 --> 3.1 --> 2.0 -restart coumadin at home dose of 6 mg daily and monitor INR closely (10) Type II diabetes mellitus with complication Status: Chronic Assessment & Plan: 11/04 -per clinic records, last A1C was 7.2 in December 2016 -check A1C with AM labs -hold metformin and Actos for now; pt with elevation in Cr above his baseline -sliding scale insulin, accucheck AC and HS -diabetic diet 11/05 -A1C pending -continue sliding scale, hold oral meds -pt sugars also likely elevated secondary to steroid use 11/06 -A1C still pending -glucose over last 24 hours 187 164 - 236 - 219 Qualifiers: Qualified Codes: E11.8 - Type 2 diabetes mellitus with unspecified complications (11) Dyslipidemia Status: Chronic Assessment & Plan: 11/04 -resume home meds (12) History of stroke Status: Chronic (13) Anxiety Status: Chronic Assessment & Plan: 11/04 -resume home clonazepam -ativan PRN anxiety or agitation, especially if patient is willing to try bipap when sleeping (14) Major depression, recurrent Status: Chronic Qualifiers: Qualified Codes: F33.9 - Major depressive disorder, recurrent, unspecified (15) Pacemaker Status: Chronic Permanent Comment: placed in 2007 secondary to sick sinus syndrome; generator change 2015 Last Edited By: Olena Toussaint on Nov 04, 2017 20:37 (16) CAD (coronary artery disease), [place] coronary artery Status: Chronic Permanent Comment: Cardiac Cath 2016 50-60% distal LAD stenosis 50-60% stenosis at proximal and mid RCA 50% circumflex stenosis followed by aneurysmal dilation EF 60% Elevated left end diastolic pressure Last Edited By: Olena Toussaint on Nov 04, 2017 20:39 Qualifiers: Qualified Codes: I25.10 - Atherosclerotic heart disease of [place] coronary artery without angina pectoris (17) Concentric left ventricular hypertrophy Status: Chronic Permanent Comment: per echo, most recently 09/02/17 Last Edited By: Olena Toussaint on Nov 04, 2017 20:40 (18) Chronic GERD Status: Chronic Assessment & Plan: 11/04 -resume home meds (19) Insomnia Status: Chronic Assessment & Plan: 11/04 -resume home meds -Ramelteon 8 mg at HS PRN sleep -ativan PRN, especially if pt willing to try using bipap when asleep Qualifiers: Qualified Codes: F51.01 - 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 (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 Assessment & Plan: 11/04 -IM every 2 weeks -last dose 10/29/17 (21) Hearing difficulty Status: Chronic Qualifiers: Qualified Codes: H91.93 - Unspecified hearing loss, bilateral (22) Chronic fatigue Status: Chronic (23) Arthritis Status: Chronic Assessment & Plan: 7/2 -resume home pain medications; [place] 5/325 -will make [place] 10/325 available for severe pain only (24) Obesity (BMI 30-39.9) Status: Chronic (25) DVT prophylaxis Status: Acute Assessment & Plan: 11/04 -currently with supratherapeutic INR, will hold on chemoprophylaxis -SCDs 11/06 -INR 2.0 today -resume coumadin for anticoagulation Clinical Quality Measures DVT/VTE Risk/Contraindication: VTE Addressed: Yes VTE Present on Admission: No Risk Factor Score Per Nursin RFS Level Per Nursing on Admit: 4+=Very High Contraindications-Pharm: Other *list below* (supratherapeutic INR of 11.4 on admission; pt using SCDs and will restart chemoprophylaxis when INR normalized) Pneumonia: Pseudomonal Risk: No known risk Urinary Catheter-Non SCIP Pts: Reason for Catheter Continuanc: Accurate I&O Copy Copies To 1: [facility]/OLENA VILLA DO Nov 06, 2017 10:00
[2017-11-06] MEDS ORDERED: HYDROcodone/APAP 5 MG/325 MG (LORTAB) TAB PO PRN (10:15)
[2017-11-06] MEDS ORDERED: FUROSEMIDE 40 MG (LASIX) TAB PO NR (10:15)
[2017-11-06] MEDS: MAGNESIUM 1 GM/100 ML IVPB 100 ML IV SCH ×2 (10:37→11:48)
[2017-11-06 15:50] VITALS: BP 112/75
[2017-11-06] MEDS ORDERED: warFARin 3 MG (COUMADIN) TAB PO SCH (18:00)
[2017-11-06] MEDS: ATORVASTATIN 10 MG (LIPITOR) TABLET PO SCH (20:59)
[2017-11-06] MEDS: NS IV 1000 ML 1,000 ML IV SCH (21:02)
[2017-11-07] VITALS: BP 147/83
[2017-11-07] MEDS: RT-ALBUTEROL/IPRATROPIUM 3 ML (DUONEB) VIAL INH SCH ×4 (03:37→14:36)
[2017-11-07] MEDS: inSUlin ASPART (NovoLOG) 1 UNIT/0.01 ML (CHARGE PER UNIT) SC SCH ×2 (06:05→13:23)
[2017-11-07] MEDS: PIPERACILLIN/TAZO 3.375 GM/D5W 100 ML IV SCH ×4 (06:05→15:08)
[2017-11-07 06:22] LABS: BASOPHILS % (AUTO) 0 % (0-10); EOSINOPHILS % (AUTO) 0 % (0-10); HEMATOCRIT 37 % (40-54); HEMOGLOBIN 11.8 G/DL (13.3-17.7); LYMPHOCYTES # (AUTO) 0.8 X 10^3 (1.0-4.0); LYMPHOCYTES % (AUTO) 6 % (12-44); MEAN CORPUSCULAR HEMOGLOBIN 26 PG (25-34); MEAN CORPUSCULAR HGB CONC 32 G/DL (32-36); MEAN CORPUSCULAR VOLUME 82 FL (80-99); MEAN PLATELET VOLUME 10.8 FL (7.4-10.4); MONOCYTES # (AUTO) 0.6 X 10^3 (0.0-1.0); MONOCYTES % (AUTO) 4 % (0-12); NEUTROPHILS # (AUTO) 12.8 X 10^3 (1.8-7.8); NEUTROPHILS % (AUTO) 90 % (42-75); PLATELET COUNT 330 10^3/uL (130-400); RED BLOOD COUNT 4.55 10^6/uL (4.35-5.85); WHITE BLOOD COUNT 14.2 10^3/uL (4.3-11.0)
[2017-11-07 06:32] LABS: INR 2.1 (0.8-1.4); PROTHROMBIN TIME PATIENT 23.2 SEC (12.2-14.7)
[2017-11-07 06:37] LABS: CALCIUM 8.5 MG/DL (8.5-10.1); CREATININE SERUM 1.32 MG/DL (0.60-1.30); MAGNESIUM 2.2 MG/DL (1.8-2.4); POTASSIUM 3.9 MMOL/L (3.6-5.0)
[2017-11-07] MEDS ORDERED: predniSONE 20 MG TAB PO SCH ×2 (07:00)
[2017-11-07 08:00] VITALS: BP 129/64
[2017-11-07] MEDS ORDERED: WARFARIN SODIUM 6 MG PO SCH (09:00)
[2017-11-07] MEDS: PARoxetine 20 MG (PAXIL) TAB PO SCH (09:02)
[2017-11-07] MEDS: ENALAPRIL 10 MG (VASOTEC) TAB PO SCH (09:02)
[2017-11-07] MEDS: DOCUSATE SODIUM 100 MG (COLACE) CAP PO SCH (09:02)
[2017-11-07] MEDS: amLODIPine 10 MG (NORVASC) TAB PO SCH (09:02)
[2017-11-07] MEDS: meTOproloL SUCCINATE 50 MG (TOPROL XL) TAB PO SCH (09:02)
[2017-11-07] MEDS: toPIRamate 25 MG (TOPAMAX) TAB PO SCH (09:02)
[2017-11-07] MEDS: cloNIDine 0.2 MG (CATAPRES) TAB PO SCH (09:02)
--- NOTE | 2017-11-07 14:30 | Discharge Summary ---
Diagnosis/Chief Complaint Date of Admission Nov 04, 2017 at 09:20 Date of Discharge 11/07/17 Admission Diagnosis Admission Diagnosis Sepsis Bilateral PNA Pulmonary Edema Hypoxia Dependence on Supplemental Oxygen Type II Diabetes Mellitus Grade II Diastolic Dysfunction with Preserved EF CAD Supratherapeutic INR Sleep Apnea HTN Pacemaker Anxiety Chronic Pain Depression GERD Dyslipidemia History of Stroke Discharge Diagnosis (1) Sepsis Status: Acute Assessment & Plan: 11/04 -given admission RR 32, Temp 101, WBC 16.9 and bilateral PNA per CXR -see below for further details 11/05 -overall much improved, will transfer to floor today -see below for further details Qualifiers: Qualified Codes: A41.9 - Sepsis, unspecified organism (2) Acute respiratory failure with hypoxemia Status: Acute Assessment & Plan: 11/04 -room air with no known lung disease per pt report -86% on room air on arrival, placed on NC -ABG in ED shows pH 7.33, PaCO2 37, PaO2 77 on NC -at the time of exam, pt requiring 7L high flow NC to maintain sats >93% -duonebs Q4H -BiPap when asleep if patient able to tolerate 11/05 -pt able to tolerate bipap while asleep -recommend repeat sleep study and pt trying home cpap again after discharge -oxygen requirements trending down, now on 4-5L NC, will continue to wean as tolerated 11/06 -continues to improve, now down to 2L -anticipate discharge when stable on room air, likely in the next 24-48 hours if patient continues on current clinical course 11/07 -stable on room air -discharge to home today (3) Pneumonia of both lower lobes Status: Acute Assessment & Plan: 11/04 -bibasilar infiltrates vs atelectasis -WBC 16.9 -repeat CBC, add CRP in AM -Zosyn Day 1 -Solu-Medrol 125 mg Day 1, then 40 mg Q6H -BiPap when asleep if tolerated 11/05 -CXR this AM shows right lower infiltrate, improved edema -repeat CXR tomorrow AM, but will get 2V -Zosyn Day 2 -WBC 16.9 --> 13.9 -CRP 11.63 11/06 -2V CXR shows mild left pleural thickening and/or fluid with adjacent atelectasis with blunted left costophrenic sulcus -Zosyn Day 3 -WBC 16.9 --> 13.9 --> 16.9 -CRP 11.63 --> 5.87 -IV solumedrol to stop tonight, start prednisone taper - 10 days - in AM -Lasix 40 mg x1 today 11/07 -Zosyn Day 4 -no significant PNA on CXR done yesterday -WBC 16.9 --> 13.9 --> 16.9 --> 14.2 -CRP 11.63 --> 5.87 --> 2.98 -DC on Augmentin BID x4 days for a total of 7 days abx and prednisone taper Qualifiers: Qualified Codes: J18.1 - Lobar pneumonia, unspecified organism (4) Pulmonary edema w/congestive heart failure w/preserved LV function Status: Acute Assessment & Plan: 11/04 -CXR shows vascular congestion -lasix and albumin given x1; pt requires fluid bolus secondary to sepsis guidelines -will repeat lasix and albulin at 2000 tonight -repeat CXR in AM -I&O -Daily weight 11/05 -I&O net +2125 yesterday -weight +3 kg -CXR shows improvement in vascular congestion 11/06 -I&O net -1205 yesterday -weight +1 kg -Lasix 40 mg x1 today (5) Grade II diastolic dysfunction Status: Chronic Assessment & Plan: 11/04 Echo 09/02/17 (6) Acute kidney injury Status: Acute Assessment & Plan: 11/04 -Cr 1.41, GFR 49 -pt's baseline appears to be Cr 1.04, GFR 72 per clinic labs 02/11/1711/05 -Cr 1.41 --> 1.4 -GFR 49 --> 50 -continue to monitor; will hold on lasix today and see if that helps improve kidney function 11/06 -Cr 1.41 --> 1.4 --> 1.48 -GFR 49 --> 50 --> 47 -continue to trend, pt will need renal function trended after discharge to see if he has developed kidney disease secondary to hypertension and/or diabetes 11/07 -Cr 1.41 --> 1.4 --> 1.48 --> 1.32 -GFR 49 --> 50 --> 47 --> 53 -continue to trend, pt will need renal function trended after discharge to see if he has developed kidney disease secondary to hypertension and/or diabetes (7) Hypertension Status: Chronic Assessment & Plan: 11/04 -will resume home meds with hold parameters; pt currently with SPB ~105, no antihypertensives have been given today -will monitor closely 11/05 -some meds held this morning; pt normotensive and baseline takes significant amount of antihypertensives; beta stanley given this AM and other meds held -will continue home meds tonight if pressure able to tolerate 11/06 -pt has resumed home meds and is tolerating well Qualifiers: Qualified Codes: I10 - Essential (primary) hypertension (8) Sleep apnea Status: Chronic Assessment & Plan: 11/04 -pt reports he does not use CPAP at home because "he couldn't stand the mask" -is willing to try bipap in the hospital -will make ativan available PRN 11/05 -able to tolerate bipap overnight -would recommend home CPAP; depending on length of time elapsed, pt may need new sleep study -suspect that untreated sleep apnea is significant contributor to his hypertension Qualifiers: Qualified Codes: G47.30 - Sleep apnea, unspecified (9) Supratherapeutic INR Status: Resolved Assessment & Plan: 11/04 -INR 11.2 on arrival in ED, repeat 11.4 --> pt given 2.5 mg Vit K PO -INR recheck this afternoon 10; no active bleeding, but given INR still 10, reasonable to give pt additional Vitamin K, 5 mg PO x1 -recheck PT, PTT, INR in AM -hold coumadin 11/05 -INR 11.2 --> 11.4 --> 10 --> 3.1 -hold coumadin today -recheck INR in AM, will plan to restart when in therapeutic window 11/06 -INR 11.2 --> 11.4 --> 10 --> 3.1 --> 2.0 -restart coumadin at home dose of 6 mg daily and monitor INR closely 11/07 -INR 11.2 --> 11.4 --> 10 --> 3.1 --> 2.0 --> 2.1 (10) Type II diabetes mellitus with complication Status: Chronic Assessment & Plan: 11/04 -per clinic records, last A1C was 7.2 in December 2016 -check A1C with AM labs -hold metformin and Actos for now; pt with elevation in Cr above his baseline -sliding scale insulin, accucheck AC and HS -diabetic diet 11/05 -A1C pending -continue sliding scale, hold oral meds -pt sugars also likely elevated secondary to steroid use 11/06 -A1C still pending -glucose over last 24 hours 187 - 164 - 236 - 219 7/5 -A1C 7.1 -glucose over last 24 hours 173 - 225 - 163 - 209 - 191 -resume previous home meds on discharge Qualifiers: Qualified Codes: E11.8 - Type 2 diabetes mellitus with unspecified complications (11) Dyslipidemia Status: Chronic Assessment & Plan: 11/04 -resume home meds (12) History of stroke Status: Chronic (13) Anxiety Status: Chronic Assessment & Plan: 11/04 -resume home clonazepam -ativan PRN anxiety or agitation, especially if patient is willing to try bipap when sleeping (14) Major depression, recurrent Status: Chronic Qualifiers: Qualified Codes: F33.9 - Major depressive disorder, recurrent, unspecified (15) Pacemaker Status: Chronic Permanent Comment: placed in 2007 secondary to sick sinus syndrome; generator change 2015 Last Edited By: Olena Toussaint on Nov 04, 2017 20:37 (16) CAD (coronary artery disease), ramp[place] coronary artery Status: Chronic Permanent Comment: Cardiac Cath 2016 50-60% distal LAD stenosis 50-60% stenosis at proximal and mid RCA 50% circumflex stenosis followed by aneurysmal dilation EF 60% Elevated left end diastolic pressure Last Edited By: Olena Toussaint on Nov 04, 2017 20:39 Qualifiers: Qualified Codes: I25.10 - Atherosclerotic heart disease of [place] coronary artery without angina pectoris (17) Concentric left ventricular hypertrophy Status: Chronic Permanent Comment: per echo, most recently 09/02/17 Last Edited By: Olena Toussaint on Nov 04, 2017 20:40 (18) Chronic GERD Status: Chronic Assessment & Plan: 11/04 -resume home meds (19) Insomnia Status: Chronic Assessment & Plan: 11/04 -resume home meds -Ramelteon 8 mg at HS PRN sleep -ativan PRN, especially if pt willing to try using bipap when asleep Qualifiers: Qualified Codes: F51.01 - 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 (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 Assessment & Plan: 11/04 -IM every 2 weeks -last dose 10/29/17 (21) Hearing difficulty Status: Chronic Qualifiers: Qualified Codes: H91.93 - Unspecified hearing loss, bilateral (22) Chronic fatigue Status: Chronic (23) Arthritis Status: Chronic Assessment & Plan: 11/04 -resume home pain medications; [place] 5/325 -will make [place] 10/325 available for severe pain only (24) Obesity (BMI 30-39.9) Status: Chronic (25) DVT prophylaxis Status: Acute Assessment & Plan: 11/04 -currently with supratherapeutic INR, will hold on chemoprophylaxis -SCDs 11/06 -INR 2.0 today -resume coumadin for anticoagulation Chief Complaint/HPI Chief Complaint/HPI 72 year old male who presented to the ED with significant other early this morning with complaint of 1-2 days of worsening shortness of breath, especially with exertion. Productive cough, fever, chills, sore throat, congestion, occasional hemoptysis. On arrival to the ED he was found to have a temp of 101.0, a respiratory rate of 32, and an oxygen saturation of 86% on room air. The patient reports that before Saturday, he was feeling like his normal self. He denies chest pain or pressure, nausea, vomiting or diarrhea. Pt does have a history of sleep apnea, but is noncompliant and does not wear CPAP at home. In the ED he was given breathing treatments and placed on oxygen to help bring his sats up to a more normal range; pt is not a smoker and has no history of respiratory disorders. His CXR showed pulmonary edema and bibasilar infiltrate vs atelectasis; this coupled with his tachypnea, febrile state and WBC 16.9, patient meets criteria for sepsis. He was also found to have a supratherapeutic INR of 11.2. He was admitted to the ICU for treatment of his sepsis, as well as stabilization of his supratherapeutic state. Discharge Summary-Simple/Stand Consultations Discharge Physical Examination Allergies: Coded Allergies: Sulfa (Sulfonamide Antibiotics) (Verified Allergy, Unknown, 03/12/07) Vitals & I&Os Vital Sign - Last 12Hours Date Time Temp Pulse Resp B/P (MAP) Pulse Ox O2 Delivery O2 Flow Rate FiO2 7/5/18 10:19 92 Room Air 11/07/17 08:00 97.7 75 20 129/64 (85) 11/07/17 06:17 1.00 11/04/17 08:15 90 Intake and Output 11/07/17 00:00 Intake Total 1200 ml Output Total 900 ml Balance 300 ml General Appearance: Alert, Oriented X3, Cooperative, No Acute Distress HEENT: Atraumatic, EOMI, Mucous Memb Moist/[place] Respiratory: Clear to Auscultation, Normal Air Movement Cardiovascular: Regular Rate, Normal S1, Normal S2 Abdominal: Normal Bowel Sounds, Soft, No Tenderness Extremities: No Clubbing, No Cyanosis, No Edema Skin: No Rashes, No Significant Lesion Neuro: Normal Speech, Normal Tone, Sensation Intact, Cranial Nerves 3-12 NL Psych/Mental Status: Mental Status NL, Mood NL Hospital Course See final discharge diagnosis. Radiology Reviewed Date of Exam:11/06/17 CHEST PA/LAT (2 VIEW) INDICATION: Pneumonia. PA and lateral views of the chest are obtained with comparison made to study of one day earlier. FINDINGS: Heart size and pulmonary vascularity are at the upper limits of normal. There is blunting of left costophrenic sulcus. Left anterior chest wall dual-chamber cardiac pacemaker remains in stable position. Surgical findings in the right shoulder and degenerative findings in the left shoulder are again noted. IMPRESSION: Mild left pleural fluid and/or thickening with subjacent atelectasis. Otherwise, no acute abnormality or adverse change is seen. Date of Exam:11/05/17 CHEST 1 VIEW, AP/PA ONLY Indication: Hemoptysis. Shortness of air. Comparison: 11/04/2017 Findings: Single frontal radiographic view of the chest was obtained and continues to show mild to moderate cardiomegaly. Pulmonary vascular congestion shows interval improvement. Left-sided dual-lead pacemaker is noted. There is a subtle ill-defined alveolar opacification involving the medial right lung base. Otherwise, lungs are clear. No large effusion or pneumothorax is seen. Bony structures show no gross acute abnormalities. Impression: 1. Persistent cardiomegaly, but with interval improved pulmonary vascular congestion. 2. Possible alveolar infiltrate within the medial right lung base. Followup is recommended. Date of Exam: 11/04/17 CHEST 1 VIEW, AP/PA ONLY INDICATION: Coughing up blood, shortness of air EXAMINATION: Chest 11/04/2017 COMPARISON: 11/16/2015 FINDINGS: There is cardiomegaly. Pulmonary vascular congestion noted with mild edema throughout both lungs. Bibasilar atelectasis versus infiltrates noted. No significant effusions. No pneumothorax. Left-sided pacemaker and postoperative change right shoulder stable. Discharge Condition at discharge stable Instructions to patient/family Please see electronic discharge instructions given to patient. Discharge Medications Reviewed and agree with Discharge Medication list on patient's Discharge Instruction sheet Clinical Quality Measures DVT/VTE Risk/Contraindication: VTE Addressed: Yes VTE Present on Admission: No Risk Factor Score Per Nursin RFS Level Per Nursing on Admit: 4+=Very High Contraindications-Pharm: Other *list below* (supratherapeutic INR of 11.4 on admission; pt using SCDs and will restart chemoprophylaxis when INR normalized) Pneumonia: Pseudomonal Risk: No known risk Urinary Catheter-Non SCIP Pts: Reason for Catheter Continuanc: Accurate I&O Copy Copies To 1: [facility]/OLENA VILLA DO Nov 07, 2017 14:30
[2017-11-07] MEDS ORDERED: PRD20T PO (14:35)
[2017-11-07] MEDS ORDERED: AMOX-358 PO (14:35)
--- NOTE | 2017-11-07 14:38 | Discharge Instructions ---
Discharge [facility] Discharge Medications New, Converted or Re-Newed RX: Transmitted to Pharmacy New Medications: Amoxicillin/Potassium Clav (Augmentin 875-125 Tablet) 1 Each Tablet 1 EACH PO BID WITH MEALS for 4 Days, #8 TAB Prednisone (Prednisone) 20 Mg Tab 20 MG PO DAILY@0700, #10 TAB 2 tabs PO daily x2 days 1.5 tabs PO daily x2 days 1 tab PO daily x 2 days 1/2 tab PO daily x2 days Continued Medications: Amlodipine Besylate (Norvasc Tablet) 10 Mg Tablet 10 MG PO DAILY Clonazepam (Klonopin) 1 Mg Tablet 1 MG PO TID PRN for ANXIETY, TAB Clonidine Hcl (Catapres) 0.2 Mg Tablet 0.2 MG PO BID Enalapril Maleate (Enalapril Maleate) 5 Mg Tablet 5 MG PO BID Hydrocodone/Acetaminophen ([place] 5-325 Tablet) 1 Each Tablet 1 TAB PO Q6H PRN for PAIN, TAB Lovastatin (Lovastatin 20 Mg) 20 Mg Tablet 20 MG PO HS Metformin HCl (Metformin HCl) 500 Mg Tablet 500 MG PO DAILY, TAB Metformin HCl (Metformin HCl) 500 Mg Tablet 1000 MG PO HS, TAB TAKES 2 (500 MG) TABLETS Metoprolol Succinate (Metoprolol Succinate) 50 Mg Tab.er.24h 25 MG PO DAILY TAKE 1/2 (50 MG) TABLET ONCE DAILY Paroxetine Hcl (Paroxetine Hcl) 40 Mg Tablet 40 MG PO DAILY Pioglitazone HCl (Actos) 30 Mg Tablet 30 MG PO DAILY, TAB Potassium Chloride (Klor-Con 10) 10 Meq Tablet.sa 10 MEQ PO DAILY Testosterone Cypionate (Testosterone Cypionate) 100 Mg/1 Ml Vial 1 ML IM EVERY 2 WEEKS Topiramate (Topiramate) 50 Mg Tablet 50 MG PO BID Warfarin Sodium (Coumadin) 6 Mg Tablet 6 MG PO DAILY, TAB Patient Instructions Patient Instructions -take medications as prescribed -take prednisone in the morning -take augmentin with food to avoid nausea -keep follow up appt as scheduled Goal/Follow Up Appt: Chris Gonzales APRN 11/14/17 at 9:40 am Return to The Hospital For: chest pain or pressure, shortness of breath not relieved by rest and out of usual for you, nausea or vomiting that makes you unable to keep down medications or clear liquids for more than 12-24 hours, fever >101 that does not improve with tylenol, pain not controlled by your normal methods, if directed by veterans rehabilitation counselor provider or with any other emergent complaints or concerns Activity & Diet Discharge Diet: Low Sodium Diet, ADA Diet Activity as Tolerated: Yes Orders-Post D/C & Referrals Pneu Vac Indicated: Yes Copy Copies To 1: [facility]/ITZEL VILLA DO Nov 07, 2017 14:37
== END 2017-11-07 15:10 | disposition home or self-care (01) | DRG 871 ==
LOC: EDUNIT# 06:56 → ER 06:58 → ICU 09:20 → 4TH 11-05 13:30
PROVIDERS: ADMIT Family Medicine; ATTEND Family Medicine
DX: A41.9 Sepsis, unspecified organism (principal); J18.9 Pneumonia, unspecified organism; R04.2 Hemoptysis; J96.01 Acute respiratory failure with hypoxia; J81.0 Acute pulmonary edema; N17.9 Acute kidney failure, unspecified; I50.32 Chronic diastolic (congestive) heart failure; I11.0 Hypertensive heart disease with heart failure; F33.9 Major depressive disorder, recurrent, unspecified; R79.1 Abnormal coagulation profile; G47.30 Sleep apnea, unspecified; E11.8 Type 2 diabetes mellitus with unspecified complications; I25.10 Atherosclerotic heart disease of native coronary artery without angina pectoris; F41.9 Anxiety disorder, unspecified; G89.29 Other chronic pain; K21.9 Gastro-esophageal reflux disease without esophagitis; E78.5 Hyperlipidemia, unspecified; H91.93 Unspecified hearing loss, bilateral; R53.82 Chronic fatigue, unspecified; E29.1 Testicular hypofunction; M19.91 Primary osteoarthritis, unspecified site; E66.9 Obesity, unspecified; Z68.37 Body mass index [BMI] 37.0-37.9, adult; Z99.81 Dependence on supplemental oxygen; Z95.0 Presence of cardiac pacemaker; Z86.73 Personal history of transient ischemic attack (TIA), and cerebral infarction without residual deficits; Z79.84 Long term (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 oral hypoglycemic drugs; Z91.19 Patient's noncompliance with other medical treatment and regimen
CPT/HCPCS: 36415; 36600; 51702; 71045; 71046; 80048; 80053; 81000; 82805; 82962; 83036; 83605; 83735; 83880; 85007; 85025; 85027; 85610; 85730; 86141; 87040; 87081; 93005; 94640; 94660; 94760; 96365

== ENCOUNTER 2018-04-28 04:43 | Inpatient (IN) | payer MEDICARE ==
[~2018-04-28] VITALS: Ht 175.3 cm; Wt 107.2 kg
[~2018-04-28 04:43] MED LIST changes: +AMOX-358 PO; +HYDR-4226 PO; -HYDR-757 PO; +METF-397 PO; -METF500T5 PO; +METO-370 PO; +PRD20T PO; +TEST100V3 IM
[2018-04-28] MEDS ORDERED: NS IV 1000 ML 1,000 ML IV SCH (04:48)
[2018-04-28] MEDS ORDERED: ACETAMINOPHEN 500 MG TAB (TYLENOL) PO PRN (05:00)
[2018-04-28] MEDS ORDERED: cefTRIAXone FOR IV USE 1,000 MG in NS (IVPB) 50 ML IV ONE (05:00)
[2018-04-28 05:06] LABS: BASOPHILS % (AUTO) 0 % (0-10); EOSINOPHILS % (AUTO) 0 % (0-10); HEMATOCRIT 41 % (40-54); HEMOGLOBIN 12.9 G/DL (13.3-17.7); LYMPHOCYTES # (AUTO) 1.2 X 10^3 (1.0-4.0); LYMPHOCYTES % (AUTO) 12 % (12-44); MEAN CORPUSCULAR HEMOGLOBIN 25 PG (25-34); MEAN CORPUSCULAR HGB CONC 32 G/DL (32-36); MEAN CORPUSCULAR VOLUME 79 FL (80-99); MEAN PLATELET VOLUME 10.9 FL (7.4-10.4); MONOCYTES # (AUTO) 1.2 X 10^3 (0.0-1.0); MONOCYTES % (AUTO) 11 % (0-12); NEUTROPHILS # (AUTO) 8.3 X 10^3 (1.8-7.8); NEUTROPHILS % (AUTO) 77 % (42-75); PLATELET COUNT 118 10^3/uL (130-400); RED CELL DISTRIBUTION WIDTH 18.5 % (10.0-14.5); WHITE BLOOD COUNT 10.8 10^3/uL (4.3-11.0)
--- OUTSIDE RECORDS SUMMARY | 2018-04-28 05:09 | XMS REPORT ---
Author Author MARLEY MCGRATH Organization [facility] Address [address] [place] [address] Care Team Providers Care Drop Forger Name Role Phone MARLEY MCGRATH Unavailable PROBLEMS Type Condition ICD9-CM Code OSX96-JR Code Onset Dates Condition Status SNOMED Code Problem Controlled type 2 diabetes mellitus without complication, without long -term current use of insulin E11.9 Active 358751003 Problem Memory loss R41.3 Active 681023606 Problem Chronic major depressive disorder, recurrent episode F33.9 Active 26971689 Problem Mild neurocognitive disorder G31.84 Active 644585462 Problem Anxiety state, unspecified F41.1 Active 824510900 Problem Anxiety F41.9 Active 48644807 Problem Other chronic pain G89.29 Active 34715946 Problem Dementia with behavioral disturbance, unspecified dementia type F03.91 Active 8714917198174 Problem 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 Active 446007227 Problem Knee pain, right M25.561 Active 25396370 Problem Diabetes type 2, controlled E11.9 Active 89313355 Problem Hypogonadism in male E29.1 Active 66215228 Problem Hypertriglyceridemia E78.1 Active 166844754 Problem Moderate episode of recurrent major depressive disorder F33.1 Active 122179280 Problem Type 2 diabetes mellitus without complications E11.9 Active 960483463 Problem Chronic fatigue R53.82 Active 75585459 Problem Hammertoe of right foot M20.41 Active 842520313 Problem 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.01 Active 9045111 ALLERGIES No Information ENCOUNTERS Encounter Location Date Diagnosis [facility] [address] [id number] [address] Apr, [facility] [address] [address] Apr, Medicare welcome exam Z00.00 [facility] [id number] [place] [address] 01051- 9822 17 Apr, 2018 Type 2 diabetes mellitus without complications E11.9 and Controlled type 2 diabetes mellitus without complication, without long-term current use of insulin E11.9 [facility] [facility] [id number] [place] [address] 41784- 1855 10 Apr, 2018 Medicare welcome exam Z00.00 [place] [facility] [id number] [place] [address] 75729- 7628 Apr, [place] [facility] [id number] [place] [address] 50845- 6416 Apr, [place] [id number] [place] [address] 02629- 8045 Mar, Dementia with behavioral disturbance, unspecified dementia type F03.91 [facility] [id number] [place] [address] 12114- 9323 27 Mar, 2018 Mild neurocognitive disorder G31.84 and Anxiety state, unspecified F41.1 [place] [facility] [id number] [place] [address] 27071- 3282 Mar, 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 [place] [id number] [place] [address] 85441- 2112 Mar, Type 2 diabetes mellitus without complications E11.9 and Controlled type 2 diabetes mellitus without complication, without long-term current use of insulin E11.9 [place] [address] [place] [address] 11482- 9090 Mar, snf (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 Z79.01 [place] [address] [place] [address] 79056- 2235 Mar, Mild neurocognitive disorder G31.84 and Anxiety state, unspecified F41.1 [place] [id number] [place] [address] 74551- 5062 08 Mar, 2018 Anxiety state, unspecified F41.1 and Other signs and symptoms involving cognition R41.89 [place] [address] [place] [address] Mar, [facility] [id number] [address] Feb, Controlled type 2 diabetes mellitus without complication, without long-term current use of insulin E11.9 ; Anxiety F41.9 ; Diabetes type 2 , controlled E11.9 and snf 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 [facility] [address] [id number] [address] 9671 18 Feb, 2018 Medicare welcome exam Z00.00 and Type 2 diabetes mellitus without complications E11.9 [facility] [address] [address] Jan, Hypogonadism in male E29.1 [facility] [address] [id number] [address] 6749 Jan, Medicare welcome exam Z00.00 and Type 2 diabetes mellitus without complications E11.9 [facility] [address] [address] 3555 Jan, Hypogonadism in male E29.1 [facility] [address] [id number] [address]- 6288 Jan, [facility] [address] [address]- 5477 Dec, Hypogonadism in male E29.1 [facility] [address] [address] 7628 Dec, Medicare welcome exam Z00.00 [facility] [address] [address] 2617 Dec, Hypogonadism in male E29.1 [facility] [address] [address]- 9990 Dec, [facility] [address] [address]- 7307 Nov, Hypogonadism in male E29.1 [facility] [address] [facility] [place] [id number] [address] 2546 20 Nov, 2017 Type 2 diabetes mellitus without complications E11.9 and History of Coumadin therapy Z92.29 [facility] [address] [facility] [place] [id number] [address] 2546 18 Nov, 2017 Medicare welcome exam Z00.00 [facility] [address] [facility] [place] [id number] [address] 2546 12 Nov, 2017 Type 2 diabetes mellitus without complications E11.9 ; History of Coumadin therapy Z92.29 and Hypogonadism in male E29.1 [facility] [address] [facility] [place] [id number] [address] 2546 06 Nov, 2017 [facility] [address] [facility] [place] [id number] [address] 2546 Oct, [facility] [address] [id number] [address] 2546 Oct, Diabetes type 2, controlled E11.9 [facility] [address] [facility] [place] [id number] [address] 2546 15 Oct, 2017 Medicare welcome exam Z00.00 [facility] [address] [id number] [address] 2546 Oct, Hypogonadism in male E29.1 [facility] [address] [facility] [place] [id number] [address] 2546 Oct, [facility] [address] [facility] [place] [id number] [address] 2546 September, Hypogonadism in male E29.1 [facility] [address] [facility] [place] [id number] [address] 2546 15 Sep, 2017 Medicare welcome exam Z00.00 [facility] [address] [facility] [place] [id number] [address] 2546 September, Hypogonadism in male E29.1 [facility] [address] [id number] [address]- 7786 Aug, Other chronic pain G89.29 ; Memory loss R41.3 ; Controlled type 2 diabetes mellitus without complication, without long-term current use of insulin E11.9 and Chronic major depressive disorder, recurrent episode F33.9 [facility] [address] [id number] [address]- 3977 11 Aug, 2017 Medicare welcome exam Z00.00 [facility] [id number] [place] [address] 72841- 6618 Aug, [facility] [id number] [place] [address] 20468 -6531 Aug, Hypogonadism in male E29.1 [facility] [id number] [place] [address] 39580- 5139 Jul, [facility] [id number] [place] [address] 05788- 5903 Jul, Hypogonadism in male E29.1 [facility] [id number] [place] [address] 77401- 1168 Jul, [facility] [id number] [place] [address] 24043 -1760 Jul, Hypogonadism in male E29.1 [facility] [id number] [place] [address] 32085- 0522 Jul, Medicare welcome exam Z00.00 [facility] [id number] [place] [address] 09529- 6085 Jun, Medicare welcome exam Z00.00 [facility] [id number] [place] [address] 38427 -9271 19 Jun, 2017 Fever R50.9 and Influenza B J10.1 [facility] [address] [address]- 9992 13 Jun, 2017 Hypogonadism in male E29.1 [facility] [address] [address]- 1087 Jun, Diabetes type 2, controlled E11.9 [facility] [address] [id number] [address]- 2896 May, Hypogonadism in male E29.1 [facility] [address] [address] 2546 May, terminal carman (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 Z79.01 [facility] [address] [id number] [address]- 1490 Apr, Hypogonadism in male E29.1 [place] [address] [id number] [address]- 3446 Apr, [place] [facility] [id number] [address]- 2126 Apr, Medicare welcome exam Z00.00 and snf (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 Z79.01 [facility] [address] [address]- 4335 Apr, Hypogonadism in male E29.1 [facility] [address] [address]- 9791 Mar, Diabetes type 2, controlled E11.9 [facility] [address] [address]- 3436 Mar, Hypogonadism in male E29.1 [facility] [address] [address]- 6306 Mar, Hypogonadism in male E29.1 [facility] [address] [address]- 2058 Feb, Hypogonadism in male E29.1 [facility] [address] [address]- 7931 Feb, Malaise R53.81 [facility] [address] [id number] [address]- 6204 Feb, [facility] [address] [address]- 3571 Feb, Diabetes type 2, controlled E11.9 [facility] [address] [place] [address] 89021- 4506 Feb, Chronic fatigue R53.82 ; Malaise R53.81 and Moderate episode of recurrent major depressive disorder F33.1 [address] [address] [place] [address] 12150- 8566 Jan, Diabetes type 2, controlled E11.9 [address] [id number] [place] [address] 71189- 7368 Jan, 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.01 and terminal carman (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 Z79.01 [address] [id number] [place] [address] 84788- 2487 Dec, Diabetes type 2, controlled E11.9 and Hypertriglyceridemia E78.1 [place] [address] [place] [address] 69503- 3854 Dec, Diabetes type 2, controlled E11.9 [address] [address] [place] [address] 01620- 4384 Dec, High risk medication use Z79.899 and terminal carman (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 Z79.01 [address] [address] [place] [address] 89505- 7285 Dec, High risk medication use Z79.899 [address] [address] [address]- 3739 Nov, Diabetes type 2, controlled E11.9 [place] [address] [place] [address] 79064- 1303 Oct, Diabetes type 2, controlled E11.9 [place] [address] [address]- 9667 September, Diabetes type 2, controlled E11.9 [place] [id number] [place] [address] 57305- 7741 Aug, snf (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 Z79.01 [place] [id number] [place] [address] 24569- 8419 Aug, Hematoma of arm, right, initial encounter S40.021A and terminal carman (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 Z79.01 [address] 68129- 1135 Aug, [facility] [address] 30958 -4249 Aug, Cellulitis of right upper extremity L03.113 [place] [address] 21323- 5031 14 Aug, 2016 Diabetes type 2, controlled E11.9 [address] [address] 89410- 1902 Aug, Hammertoe of right foot M20.41 ; Hallux abducto valgus, left M20.12 and Onychomycosis B35.1 [address] [address] 85626- 4801 Aug, snf (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 Z79.01 [address] [address] 80102- 6588 Aug, snf (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 Z79.01 [address] [id number] [place] [address] 42223- 4948 Aug, terminal carman (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 Z79.01 [facility] [place] [address] [address]01 -4890 Aug, Right shoulder pain M25.511 and Closed nondisplaced fracture of acromial end of right clavicle, initial encounter S42.034A [place] [address] 44441- 4413 Jul, Diabetes type 2, controlled E11.9 [facility] [address] [facility] [place] [id number] [address]- 9210 Jun, Diabetes type 2, controlled E11.9 and snf (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 Z79.01 [facility] [address] [facility] [place] [place] [id number] [place] [address]- 0938 May, [facility] [address] [facility] [place] [id number] [address]- 7555 Apr, [facility] [address] [facility] [place] [id number] [place] [address]- 9093 Mar, [facility] [address] [address]- 8607 Feb, [facility] [address] [address]- 8376 Dec, Diabetes type 2, controlled E11.9 [facility] [address] [address]- 4551 Dec, [facility] [address] [address]- 6533 Nov, [facility] [address] [address]- 3141 Nov, Type 2 diabetes mellitus without complications E11.9 [facility] [address] [address]- 4543 Oct, Type 2 diabetes mellitus without complications E11.9 [facility] [id number] [address]- 1814 Aug, [facility] [address] [address]- 3227 Aug, Type 2 diabetes mellitus without complications E11.9 [facility] [id number] 7936 Jun, Type 2 diabetes mellitus without complications E11.9 and 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.02 [facility] [address] [address]- 2115 May, [facility] [address] [place] [address] 04264- 3929 May, Diabetes type 2, controlled E11.9 [facility] [id number] [place] [address] 77368- 9027 Apr, Diabetes type 2, controlled E11.9 [facility] [address] [place] [address] 21088- 0134 Mar, Diabetes type 2, controlled E11.9 ; Knee pain, right M25.561 ; Other chronic pain G89.29 and Medication monitoring encounter Z51.81 [place] [id number] [place] [address] 76726- 3334 Feb, Type 2 diabetes mellitus without complications E11.9 ; High risk medication use Z79.899 and Anxiety F41.9 [place] [id number] [place] [address] 29018- 0327 Jan, Diabetes 250.00 [place] [id number] [place] [address] 24337 2546 Dec, Diabetes 250.00 [facility] [address] [address] 2546 Nov, Diabetes 250.00 [facility] [address] [place] [address] 35157 2546 Nov, [facility] [address] [place] [address] 84196 2544 Oct, Diabetes mellitus type 1 250.01 and High risk medication use V58.69 [facility] [id number] [address]- 0686 Oct, [facility] [id number] [place] [address] 63009- 8269 September, [facility] [place] [facility] [address] [id number] [place] [address]- 3825 Aug, [facility] [place] [facility] [address] [id number] [place] [address]- 1769 Aug, [facility] [place] [facility] [address] [id number] [place] [address]- 3316 Jul, [facility] [place] [facility] [address] [id number] [place] [address]- 3366 Jul, [facility] [place] [facility] [address] [id number] [place] [address]- 9178 Jun, [facility] [place] [facility] [address] [id number] [place] [address]- 6530 Jun, [facility] [place] [facility] [address] [id number] [place] [address]- 2494 Jun, [facility] [place] [facility] [address] [id number] [place] [address]- 7830 May, [facility] [place] [facility] [address] [id number] [place] [address]- 6557 May, [facility] [place] [facility] [address] [id number] [place] [address]- 2955 Apr, [facility] [place] [facility] [address] [id number] [place] [address]- 3441 Apr, [facility] [place] [facility] [address] [id number] [place] [address]- 3965 Apr, [facility] [place] [facility] [address] [id number] [place] [address]- 1885 Apr, [facility] [place] [facility] [address] [id number] [place] [address]- 2166 Apr, [facility] [place] [facility] [address] [id number] [place] [address]- 0474 Apr, [facility] [place] [facility] [address] [id number] [place] [address]- 4043 Feb, [facility] [place] [facility] [address] [id number] [place] [address]- 0148 Feb, [facility] [place] [facility] [address] [id number] [place] [address]- 3696 Feb, [facility] [place] [facility] [address] [id number] [place] 8709 Feb, [facility] [place] [facility] [address] [id number] [place] [address]- 0318 Dec, [facility] [place] [facility] [address] [id number] [place] [address]- 6460 Dec, [facility] [place] [facility] [address] [id number] [place] [address]- 8857 Nov, [facility] [place] [facility] [address] [id number] [place] [address]- 0370 Nov, [facility] [place] [facility] [address] [id number] [place] [address]- 2347 Oct, [facility] [place] [facility] [address] [id number] [place] [address]- 5466 Oct, [facility] [place] [facility] [address] [id number] [place] [address]- 4332 Oct, [facility] [place] [facility] [address] [id number] [place] [address]- 4918 Oct, [facility] [place] [facility] [address] [id number] [place] [address]- 1121 Oct, [facility] [place] [facility] [address] [id number] [place] [address]- 2226 Oct, [facility] [place] [facility] [address] [id number] [place] [address]- 3792 September, [facility] [place] [facility] [address] [id number] [place] [address]- 2115 September, [facility] [place] [facility] [address] [id number] [place] [address]- 3511 September, [facility] [place] [facility] [address] [id number] [place] [address]- 4315 September, [facility] [place] [facility] [address] [id number] [place] [address]- 3967 September, [facility] [place] [facility] [address] [id number] [place] [address]- 1599 September, [facility] [address] [id number] [place] [address]- 8397 Aug, [facility] [place] [facility] [address] [id number] [place] [address]- 1926 Aug, [facility] [place] [facility] [address] [id number] [place] [address]- 1963 Aug, [facility] [place] [facility] [address] [id number] [place] [address]- 0098 Aug, [facility] [place] [facility] [address] [id number] [place] [address]- 3601 Aug, [facility] [place] [facility] [address] [id number] [place] [address]- 6826 Aug, [facility] [place] [facility] [address] [id number] [place] [address]- 0526 Jul, [facility] [place] [facility] [address] [id number] [place] [address]- 2643 Jul, [facility] [place] [facility] [address] [id number] [place] [address]- 9774 Jul, [facility] [place] [facility] [address] [id number] [place] [address]- 4677 Jul, [facility] [place] [facility] [address] [id number] [place] [address]- 4874 May, [facility] [place] [facility] [address] [id number] [place] [address] May, [facility] [place] [facility] [address] [id number] [place] [address] Apr, [facility] [place] [facility] [address] [id number] [place] [address] Apr, [facility] [place] [facility] [address] [id number] [place] [address] Apr, [facility] [place] [facility] [address] [id number] [place] [address] Apr, [facility] [place] [facility] [address] [id number] [place] [address] Apr, [facility] [place] [facility] [address] [id number] [place] [address] Apr, [facility] [place] [facility] [address] [id number] [place] [address] Feb, [facility] [place] [facility] [address] [id number] [address] Feb, [facility] [place] [facility] [address] [id number] [place] [address] Feb, [facility] [place] [facility] [address] [id number] [place] [address] Feb, [facility] [place] [facility] [address] [id number] [address] Feb, [facility] [place] [facility] [address] [id number] [address] Feb, [facility] [place] [facility] [address] [id number] [place] [address] Feb, [facility] [place] [facility] [address] [id number] [address] Feb, [facility] [place] [facility] [address] [id number] [place] [address] 254 Jan, [facility] [place] [facility] [address] [id number] [place] [address] Jan, [facility] [address] [id number] [place] [address] Jan, [facility] [address] [id number] [place] [address] Jan, [facility] [address] [id number] [place] [address] Dec, [facility] [address] [id number] [place] [address] Dec, [facility] [address] [id number] [place] [address] Dec, [facility] [address] [id number] [place] [address] Nov, [facility] [address] [id number] [place] [address] Nov, [facility] [address] [id number] [place] [address] Oct, [facility] [address] [id number] [place] [address] September, [facility] [address] [id number] [place] [address] September, [facility] [address] [id number] [place] [address] September, [facility] [address] [id number] [place] [address] Aug, [facility] [address] [id number] [place] [address] 16 Aug, 2012 [facility] [address] [id number] [place] [address] 15 Aug, 2012 [facility] [address] [id number] [place] [address] Jul, [facility] [address] [id number] [place] [address] Jul, [facility] [place] [facility] [address] [id number] [place] [address] Jun, [facility] [address] [id number] [place] [address] Jun, [facility] [place] [facility] [address] [id number] [place] [address] Jun, [facility] [address] [id number] [place] [address] Jun, [facility] [address] [id number] [place] [address] May, [facility] [address] [id number] [place] [address] May, [facility] [address] [id number] [place] [address] Apr, [facility] [address] [id number] [place] [address] Apr, [facility] [address] [id number] [place] [address] Apr, [facility] [address] [id number] [address] Apr, [facility] [place] [facility] [address] [id number] [address] Apr, [facility] [place] [facility] [address] [id number] [place] [address] 85[address] Apr, [facility] [place] [facility] [address] [id number] [place] [address] Mar, [facility] [place] [facility] [address] [id number] [place] [address] 44[address] Mar, [facility] [address] [id number] [place] [address] 2549 07 Mar, 2012 [facility] [place] [facility] [address] [id number] [place] [address]74 Mar, [facility] [place] [facility] [address] [id number] [place] [address] 2546 Mar, [facility] [place] [facility] [address] [id number] [place] [address] 2546 Mar, [facility] [place] [facility] [address] [id number] [place] [address] Feb, [facility] [place] [facility] [address] [id number] [place] [address] Feb, [facility] [place] [facility] [address] [id number] [place] [address] Feb, [facility] [place] [facility] [address] [facility] [id number] [place] [address] Feb, [facility] [place] [facility] [address] [id number] [place] [address] 8614 Feb, [facility] [place] [facility] [address] [id number] [place] [address] Jan, [facility] [place] [facility] [address] [facility] [place] [id number] [place] [address]- 78[address] Jan, [facility] [place] [facility] [address] [id number] [place] [address] 2546 Jan, [facility] [place] [facility] [address] [id number] [place] [address] Dec, [facility] [place] [facility] [address] [id number] [place] [address] 64[address] Dec, [facility] [place] [facility] [address] [facility] [place] [place] [id number] [place] [address] Nov, [facility] [place] [facility] [address] [id number] [place] [address] Oct, [facility] [place] [facility] [address] [id number] [place] [address] Oct, [facility] [place] [facility] [address] [id number] [place] [address] Oct, [facility] [place] [facility] [address] [id number] [place] [address] Oct, [facility] [place] [facility] [address] [id number] [place] [address] 7971 Oct, [facility] [address] [id number] [place] [address] September, [facility] [place] [facility] [address] [id number] [place] [address]37 Aug, [facility] [place] [facility] [address] [id number] [place] [address] Aug, [facility] [address] [id number] [place] [address]- [address]46 17 Aug, 2011 [facility] [place] [facility] [address] [id number] [place] [address] 16 Aug, 2011 [facility] [place] [facility] [address] [id number] [place] [address]- [address]28 13 Aug, 2011 [facility] [place] [facility] [address] [id number] [place] [address] 2041 Aug, [facility] [place] [facility] [address] [id number] [place] [address]- 5957 Aug, [facility] [place] [facility] [address] [id number] [place] [address]- 3549 Aug, [facility] [place] [facility] [address] [id number] [place] [address]- 2530 Aug, [facility] [place] [facility] [address] [id number] [place] [address]267 Jul, [facility] [place] [facility] [address] [id number] [place] [address]- 2546 20 Jul, 2011 [facility] [address] [id number] [place] [address]- 9963 20 Jul, 2011 [facility] [place] [facility] [address] [id number] [place] [address]- 1856 17 Jul, 2011 [facility] [address] [id number] [place] [address]- 8056 08 Jul, 2011 [facility] [place] [facility] [address] [id number] [place] [address]- 5244 15 Jun, 2011 [facility] [place] [facility] [address] [id number] [place] [address]- 9486 14 Jun, 2011 [facility] [place] [facility] [address] [id number] [place] [address]- 8966 08 Jun, 2011 [facility] [address] [id number] [place] [address]- 0011 08 Jun, 2011 [facility] [place] [facility] [address] [id number] [place] [address]- 2908 May, [facility] [place] [facility] [address] [id number] [place] [address]- 6007 13 May, 2011 [facility] [place] [facility] [address] [id number] [place] [address] 5901 May, [facility] [address] [id number] [place] [address]- 8568 08 May, 2011 [facility] [place] [facility] [address] [id number] [place] [address]- 8161 May, [facility] [place] [facility] [address] [id number] [place] [address]- 3547 May, [facility] [place] [facility] [address] [id number] [place] [address]- 5266 03 May, 2011 [facility] [place] [facility] [address] [facility] [place] [place] [id number] [place] [address]- 4057 Apr, [facility] [place] [facility] [address] [id number] [place] [address]- 8399 13 Apr, 2011 [facility] [place] [facility] [address] [id number] [place] [address]- 0746 Apr, [facility] [place] [facility] [address] [id number] [place] [address]- 8136 Apr, [facility] [place] [facility] [address] [id number] [place] [address]- 2686 Apr, [facility] [place] [facility] [address] [id number] [place] [address]- 7291 Apr, [facility] [place] [facility] [address] [id number] [place] [address]- 3720 Apr, [facility] [place] [facility] [address] [id number] [place] [address]- 2717 Apr, [facility] [place] [facility] [address] [id number] [place] [address]- 7483 Apr, [facility]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
--- OUTSIDE RECORDS SUMMARY | 2018-04-28 05:09 | XMS REPORT ---
Author Author MARLEY MCGRATH Organization [facility] Address [address] [place] [address] Care Team Providers Care Production Control Scheduler Name Role Phone MARLEY MCGRATH Unavailable PROBLEMS Type Condition ICD9-CM Code [id number] Code Onset Dates Condition Status SNOMED Code Problem Controlled type 2 diabetes mellitus without complication, without long -term current use of insulin E11.9 Active 868725188 Problem Memory loss R41.3 Active 693966421 Problem Chronic major depressive disorder, recurrent episode F33.9 Active 88031412 Problem Mild neurocognitive disorder G31.84 Active 454002158 Problem Anxiety state, unspecified F41.1 Active 793429429 Problem Anxiety F41.9 Active 56012463 Problem Other chronic pain G89.29 Active 76583441 Problem Dementia with behavioral disturbance, unspecified dementia type F03.91 Active 1969060498645 Problem 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 Active 797131485 Problem Knee pain, right M25.561 Active 06210657 Problem Diabetes type 2, controlled E11.9 Active 53013558 Problem Hypogonadism in male E29.1 Active 33966386 Problem Hypertriglyceridemia E78.1 Active 231698998 Problem Moderate episode of recurrent major depressive disorder F33.1 Active 099428658 Problem Type 2 diabetes mellitus without complications E11.9 Active 315856597 Problem Chronic fatigue R53.82 Active 17553730 Problem Hammertoe of right foot M20.41 Active 912772176 Problem 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.01 Active [id number] ALLERGIES No Information ENCOUNTERS Encounter Location Date Diagnosis [facility] [address] [facility] [id number] [address] Apr, [facility] [address] [id number] [address] Apr, Type 2 diabetes mellitus without complications E11.9 and Controlled type 2 diabetes mellitus without complication, without long-term current use of insulin E11.9 [place] [id number] [place] [address] 18688- 9991 10 Apr, 2018 Medicare welcome exam Z00.00 [place] [id number] [place] [address] 18841- 7764 04 Apr, 2018 [place] [id number] [place] [address] 00903- 9011 Apr, [place] [id number] [place] [address] 45156- 5217 Mar, Dementia with behavioral disturbance, unspecified dementia type F03.91 [place] [address] 18952- 8842 Mar, Mild neurocognitive disorder G31.84 and Anxiety state, unspecified F41.1 [place] [id number] [place] [address] 84677- 4997 Mar, [facility] 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 [place] [id number] [place] [address] 88566- 6308 Mar, Type 2 diabetes mellitus without complications E11.9 and Controlled type 2 diabetes mellitus without complication, without long-term current use of insulin E11.9 [place] [id number] [place] [address] 22779- 2198 Mar, 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 Z79.01 [place] [id number] [place] [address] 52312- 8130 Mar, Mild neurocognitive disorder G31.84 and Anxiety state, unspecified F41.1 [place] [id number] [place] [address] 05333- 5302 Mar, Anxiety state, unspecified F41.1 and Other signs and symptoms involving cognition R41.89 [place] [id number] [place] [address] 96542- 7989 05 Mar, 2018 [place] [id number] [place] [address] 14586- 2423 Feb, Controlled type 2 diabetes mellitus without complication, without long-term current use of insulin E11.9 ; Anxiety F41.9 ; Diabetes type 2 , controlled E11.9 and 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 [facility] [address] [id number] [address] 6[address] 18 Feb, 2018 Medicare welcome exam Z00.00 and Type 2 diabetes mellitus without complications E11.9 [facility] [address] [facility] [id number] [address] 29 Jan, 2018 Hypogonadism in male E29.1 [facility] [address] [id number] [address] 4612 Jan, Medicare welcome exam Z00.00 and Type 2 diabetes mellitus without complications E11.9 [facility] [address] [address]- 5228 11 Jan, 2018 Hypogonadism in male E29.1 [facility] [address] [id number] [address] 0440 Jan, [facility] [id number] [place] [address] 39659- 9801 Dec, Hypogonadism in male E29.1 [facility] [address] [address] 0207 Dec, Medicare welcome exam Z00.00 [facility] [address] [address] 1316 Dec, Hypogonadism in male E29.1 [facility] [address] [address] 2413 Dec, [facility] [address] [address]- 7856 Nov, Hypogonadism in male E29.1 [facility] [address] [address] 5278 Nov, Type 2 diabetes mellitus without complications E11.9 and History of Coumadin therapy Z92.29 [facility] [address] [address] 2546 18 Nov, 2017 Medicare welcome exam Z00.00 [facility] [address] [address] 2546 12 Nov, 2017 Type 2 diabetes mellitus without complications E11.9 ; History of Coumadin therapy Z92.29 and Hypogonadism in male E29.1 [facility] [address] [address] 2740 06 Nov, 2017 [facility] [address] [address] 8146 Oct, [facility] [address] [address] 8246 Oct, Diabetes type 2, controlled E11.9 [facility] [address] [address] 2546 Oct, Medicare welcome exam Z00.00 [facility] [address] [address]- 0116 Oct, Hypogonadism in male E29.1 [facility] [address] [id number] [address] Oct, [facility] [address] [address]- 2946 September, Hypogonadism in male E29.1 [facility] [address] [address]- 2716 September, Medicare welcome exam Z00.00 [facility] [address] [address]- 5332 September, Hypogonadism in male E29.1 [facility] [address] [address]- 8843 Aug, Other chronic pain G89.29 ; Memory loss R41.3 ; Controlled type 2 diabetes mellitus without complication, without long-term current use of insulin E11.9 and Chronic major depressive disorder, recurrent episode F33.9 [facility] [address] [address]- 5511 11 Aug, 2017 Medicare welcome exam Z00.00 [facility] [address] [address]- 8523 09 Aug, 2017 [facility] [id number] [place] [address] 59394 -0139 07 Aug, 2017 Hypogonadism in male E29.1 [facility] [address] [address]- 4029 27 Jul, 2017 [facility] [id number] [place] [address] 53815- 2524 27 Jul, 2017 Hypogonadism in male E29.1 [facility] [id number] [place] [address] 89563- 4039 Jul, [facility] [address] [address] Jul, Hypogonadism in male E29.1 [facility] [id number] [place] [address] 69619- 4336 09 Jul, 2017 Medicare welcome exam Z00.00 [facility] [address] [address]- 8208 22 Jun, 2017 Medicare welcome exam Z00.00 [facility] [address] [address] 19 Jun, 2017 Fever R50.9 and Influenza B J10.1 [facility] [address]77865[address] [address]- 3121 13 Jun, 2017 Hypogonadism in male E29.1 [facility] [address] [address]- 9266 09 Jun, 2017 Diabetes type 2, controlled E11.9 [facility] [address] [address]- 6823 May, Hypogonadism in male E29.1 [facility] [id number] [place] [address] 63126- 6732 May, [facility] (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 Z79.01 [facility] [id number] [address]- 8899 Apr, Hypogonadism in male E29.1 [facility] [id number] [place] [address] 56223- 4269 Apr, [place] [id number] [place] [address] 47445- 0722 Apr, Medicare welcome exam Z00.00 and [facility] (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 Z79.01 [place] [id number] [place] [address] 47047- 9915 Apr, Hypogonadism in male E29.1 [place] [id number] [place] [address] 07793- 4718 Mar, Diabetes type 2, controlled E11.9 [place] [id number] [place] [address] 71902- 0034 Mar, Hypogonadism in male E29.1 [place] [address] [address]- 6226 Mar, Hypogonadism in male E29.1 [place] [id number] [place] [address] 67035- 1271 Feb, Hypogonadism in male E29.1 [place] [id number] [place] [address] 71374- 0074 Feb, Malaise R53.81 [facility] [address] [address]- 0911 Feb, [place] [id number] [place] [address] 40942- 2614 Feb, Diabetes type 2, controlled E11.9 [facility] [id number] [place] [address] 57635- 1602 Feb, Chronic fatigue R53.82 ; Malaise R53.81 and Moderate episode of recurrent major depressive disorder F33.1 [facility] [id number] [place] [address] 90799- 5138 11 Jan, 2017 Diabetes type 2, controlled E11.9 [facility] [id number] [place] [address] 78612- 8712 Jan, 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.01 and 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 Z79.01 [place] [id number] [place] [address] 26226- 8885 Dec, Diabetes type 2, controlled E11.9 and Hypertriglyceridemia E78.1 [place] [id number] [place] [address] 43861- 4910 Dec, Diabetes type 2, controlled E11.9 [facility] [id number] [place] [address] 00976- 1484 Dec, High risk medication use Z79.899 and [facility] (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 Z79.01 [facility] [id number] [place] [address] 05378- 2321 Dec, High risk medication use Z79.899 [place] [id number] [place] [address] 06012- 9506 Nov, Diabetes type 2, controlled E11.9 [facility] [id number] [place] [address] 97998- 3466 Oct, Diabetes type 2, controlled E11.9 [facility] [id number] [place] [address] 51254- 5274 September, Diabetes type 2, controlled E11.9 [facility] [id number] [place] [address] 46093- 6216 Aug, [facility] (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 Z79.01 [place] [address] [place] [address] 56805- 0635 Aug, Hematoma of arm, right, initial encounter S40.021A and 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 Z79.01 [place] [id number] [place] [address] 49503- 7794 Aug, [facility] [address] 39882 -7147 Aug, Cellulitis of right upper extremity L03.113 [place] [address] 41197- 2430 14 Aug, 2016 Diabetes type 2, controlled E11.9 [place] [id number] [place] [address] 18486- 9770 Aug, Hammertoe of right foot M20.41 ; Hallux abducto valgus, left M20.12 and Onychomycosis B35.1 [place] [id number] [place] [address] 73758- 7507 Aug, 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 Z79.01 [place] [id number] [place] [address] 08849- 5970 Aug, 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 Z79.01 [place] [id number] [place] [address] 29029- 6490 Aug, 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 Z79.01 [facility] [id number] [place] [address] 39790 -6162 Aug, Right shoulder pain M25.511 and Closed nondisplaced fracture of acromial end of right clavicle, initial encounter S42.034A [place] [id number] [place] [address] 55180- 6990 Jul, Diabetes type 2, controlled E11.9 [place] [address] 52069- 8834 Jun, Diabetes type 2, controlled E11.9 and [facility] (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 Z79.01 [facility] [address] [address]- 5610 May, [facility] [address] [address]- 8425 Apr, [facility] [id number] [place] [address] 70838- 7813 Mar, [facility] [address] [address]- 9296 Feb, [facility] [id number] [place] [address] 20776- 6761 Dec, Diabetes type 2, controlled E11.9 [facility] [address] [address]- 0385 Dec, [facility] [address] [address]- 4257 Nov, [facility] [address] [address]- 8516 Nov, Type 2 diabetes mellitus without complications E11.9 [facility] [address] [address]- 1745 Oct, Type 2 diabetes mellitus without complications E11.9 [facility] [address] [address]- 1300 Aug, [facility] [address] [address]- 7875 Aug, Type 2 diabetes mellitus without complications E11.9 [facility] [address] 2416 Jun, Type 2 diabetes mellitus without complications E11.9 and 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 retirement use of antiplatelet drug Z79.02 [facility] [address] [address]- 9023 May, [facility] [address] [address]- 8079 May, Diabetes type 2, controlled E11.9 [facility] [id number] [place] [address] 082235- 8716 Apr, Diabetes type 2, controlled E11.9 [facility] [id number] [place] [address] 146143- 6040 Mar, Diabetes type 2, controlled E11.9 ; Knee pain, right M25.561 ; Other chronic pain G89.29 and Medication monitoring encounter Z51.81 [facility] [id number] [place] [address] 01332- 0794 Feb, Type 2 diabetes mellitus without complications E11.9 ; High risk medication use Z79.899 and Anxiety F41.9 [facility] [id number] [place] [address] 59133- 5839 Jan, Diabetes 250.00 [facility] [id number] [place] [address] 49190- 7000 Dec, Diabetes 250.00 [facility] [id number] [place] [address] 21898- 9442 Nov, Diabetes 250.00 [facility] [id number] [place] [address] 51328- 1639 Nov, [facility] [id number] [place] [address] 83940- 8114 Oct, Diabetes mellitus type 1 250.01 and High risk medication use V58.69 [facility] [id number] [place] [address] 90548- 0402 Oct, [facility] [id number] [place] [address] 46349- 5206 September, [facility] [id number] [place] [address] 17492- 8723 Aug, [facility] [place] [facility] [address] [id number] [place] [address]- 3409 Aug, [facility] [place] [facility] [address] [id number] [place] [address]- 7546 Jul, [facility] [place] [facility] [address] [id number] [place] [address]- 5538 Jul, [facility] [place] [facility] [address] [id number] [place] [address]- 5482 Jun, [facility] [place] [facility] [address] [id number] [place] [address]- 8033 Jun, [facility] [place] [facility] [address] [id number] [place] [address]- 0890 Jun, [facility] [place] [facility] [address] [id number] [place] [address]- 8074 May, [facility] [place] [facility] [address] [id number] [place] [address]- 2367 May, [facility] [place] [facility] [address] [id number] [place] [address]- 5797 Apr, [facility] [place] [facility] [address] [id number] [place] [address]- 2455 Apr, [facility] [place] [facility] [address] [id number] [place] [address]- 3689 Apr, [facility] [place] [facility] [address] [id number] [place] [address]- 9052 Apr, [facility] [place] [facility] [address] [id number] [place] [address]- 4905 Apr, [facility] [place] [facility] [address] [id number] [place] [address]- 9628 Apr, [facility] [place] [facility] [address] [id number] [place] [address]- 9167 31 Feb, 2014 [facility] [place] [facility] [address] [id number] [place] [address]- 0424 Feb, [facility] [place] [facility] [address] [id number] [place] [address]- 2696 Feb, [facility] [place] [facility] [address] [id number] [place] 4318 Feb, [facility] [place] [facility] [address] [id number] [place] [address]- 1266 Dec, [facility] [place] [facility] [address] [id number] [place] [address]- 4904 Dec, [facility] [place] [facility] [address] [id number] [place] [address]- 9708 Nov, [facility] [place] [facility] [address] [id number] [place] [address]- 2510 Nov, [facility] [place] [facility] [address] [id number] [place] [address]- 6963 Oct, [facility] [place] [facility] [address] [id number] [place] [address]- 2517 Oct, [facility] [place] [facility] [address] [id number] [place] [address]- 0090 Oct, [facility] [place] [facility] [address] [id number] [place] [address]- 7490 Oct, [facility] [place] [facility] [address] [id number] [place] [address]- 8461 Oct, [facility] [place] [facility] [address] [id number] [place] [address]- 3782 Oct, [facility] [place] [facility] [address] [id number] [place] [address]- 3299 September, [facility] [place] [facility] [address] [id number] [place] [address]- 3315 September, [facility] [place] [facility] [address] [id number] [place] [address]- 6517 September, [facility] [place] [facility] [address] [id number] [place] [address]- 2546 September, [facility] [address] [id number] [place] [address]- 8734 September, [facility] [place] [facility] [address] [id number] [place] [address]- 8266 September, [facility] [address] [id number] [place] [address]- 4254 Aug, [facility] [place] [facility] [address] [id number] [place] [address]- 5946 Aug, [facility] [address] [id number] [place] [address]- 0227 Aug, [facility] [address] [id number] [place] [address]- 0075 Aug, [facility] [address] [id number] [place] [address]- 6184 Aug, [facility] [address] [id number] [place] [address]- 0451 Aug, [facility] [place] [facility] [address] [id number] [place] [address]- 3328 Jul, [facility] [address] [id number] [place] [address]- 7730 Jul, [facility] [place] [facility] [address] [id number] [place] [address]- 7757 Jul, [facility] [place] [facility] [address] [id number] [place] [address]- 3366 Jul, [facility] [place] [facility] [address] [id number] [place] [address]- 5203 May, [facility] [place] [facility] [address] [id number] [place] [address]- 2546 May, [facility] [place] [facility] [address] [id number] [place] [address] Apr, [facility] [place] [facility] [address] [id number] [place] [address] Apr, [facility] [place] [facility] [address] [id number] [place] [address] Apr, [facility] [place] [facility] [address] [id number] [place] [address] Apr, [facility] [place] [facility] [address] [id number] [place] [address] Apr, [facility] [place] [facility] [address] [id number] [place] [address] Apr, [facility] [place] [facility] [address] [id number] [place] [address] Feb, [facility] [place] [facility] [address] [id number] [place] [address] Feb, [facility] [place] [facility] [address] [id number] [address] Feb, [facility] [place] [facility] [address] [id number] [place] [address] Feb, [facility] [place] [facility] [address] [id number] [address] Feb, [facility] [place] [facility] [address] [id number] [address] Feb, [facility] [place] [facility] [address] [id number] [address] Feb, [facility] [place] [facility] [address] [id number] [address] Feb, [facility] [place] [facility] [address] [id number] [address] Jan, [facility] [place] [facility] [address] [id number] [address] Jan, [facility] [place] [facility] [address] [id number] [address] Jan, [facility] [address] [id number] [place] [address] Jan, [facility] [address] [id number] [place] [address] Dec, [facility] [address] [id number] [place] [address] Dec, [facility] [address] [id number] [place] [address] Dec, [facility] [address] [id number] [place] [address] Nov, [facility] [address] [id number] [place] [address] Nov, [facility] [address] [id number] [place] [address] Oct, [facility] [address] [id number] [place] [address] September, [facility] [address] [id number] [place] [address] September, [facility] [address] [facility] [id number] [place] [address] September, [facility] [address] [id number] [place] [address] Aug, [facility] [address] [id number] [address] 16 Aug, 2012 [facility] [address] [id number] [place] [address] 15 Aug, 2012 [facility] [place] [facility] [address] [id number] [place] [address] Jul, [facility] [address] [id number] [place] [address]73 14 Jul, 2012 [facility] [address] [id number] [place] [address] Jun, [facility] [place] [facility] [address] [id number] [place] [address] Jun, [facility] [place] [facility] [address] [id number] [place] [address] Jun, [facility] [place] [facility] [address] [id number] [place] [address] 1386 Jun, [facility] [place] [facility] [address] [id number] [place] [address] May, [facility] [address] [id number] [place] [address] 39[address] May, [facility] [address] [id number] [place] [address] 89[address] Apr, [facility] [address] [id number] [place] [address] Apr, [facility] [place] [facility] [address] [id number] [place] [address] Apr, [facility] [address] [id number] [place] [address]- [address] Apr, [facility] [place] [facility] [address] [id number] [place] [address] 3947 Apr, [facility] [place] [facility] [address] [id number] [place] [address] 5048 Apr, [facility] [place] [facility] [address] [id number] [place] [address] 85[address] Mar, [facility] [place] [facility] [address] [id number] [place] [address]- 1510 Mar, [facility] [place] [facility] [address] [id number] [place] [address] 32[address] Mar, [facility] [place] [facility] [address] [id number] [place] [address] 2546 Mar, [facility] [place] [facility] [address] [id number] [place] [address]- 8635 Mar, [facility] [place] [facility] [address] [id number] [place] [address]176 Mar, [facility] [place] [facility] [address] [id number] [place] [address]- 7706 Feb, [facility] [place] [facility] [address] [id number] [place] [address] 75[address] Feb, [facility] [place] [facility] [address] [id number] [place] [address] 6329 Feb, [facility] [place] [facility] [address] [id number] [place] [address]- [address] Feb, [facility] [place] [facility] [address] [id number] [place] [address]- 0[address] Feb, [facility] [place] [facility] [address] [id number] [place] [address]- 0928 Jan, [facility] [place] [facility] [address] [id number] [place] [address]- 2038 Jan, [facility] [place] [facility] [address] [id number] [place] [address]- 6[address] Jan, [facility] [place] [facility] [address] [id number] [place] [address]- 4190 Dec, [facility] [place] [facility] [address] [id number] [place] [address]- 46[address] Dec, [facility] [place] [facility] [address] [id number] [place] [address] 3435 Nov, [facility] [place] [facility] [address] [id number] [place] [address]- 3665 Oct, [facility] [place] [facility] [address] [id number] [place] [address] 9436 Oct, [facility] [place] [facility] [address] [id number] [place] [address]- 8569 Oct, [facility] [address] [id number] [place] [address] 9195 Oct, [facility] [place] [facility] [address] [id number] [place] [address] 06 Oct, 2011 [facility] [address] [id number] [place] [address] September, [facility] [address] [id number] [place] [address] 1541 18 Aug, 2011 [facility] [address] [id number] [place] [address]- 3760 18 Aug, 2011 [facility] [address] [id number] [place] [address]- 0368 17 Aug, 2011 [facility] [address] [id number] [place] [address]- 3245 16 Aug, 2011 [facility] [address] [id number] [place] [address]- 0117 13 Aug, 2011 [facility] [address] [id number] [place] [address] 8197 Aug, [facility] [address] [id number] [place] [address] 3487 Aug, [facility] [address] [id number] [place] [address]- 7822 Aug, [facility] [address] [id number] [place] [address]- 4118 Aug, [facility] [place] [facility] [address] [id number] [place] [address]- 5665 Jul, [facility] [place] [facility] [address] [id number] [place] [address]- 8476 Jul, [facility] [address] [id number] [place] [address]- 5196 Jul, [facility] [address] [id number] [place] [address] 6843 17 Jul, 2011 [facility] [place] [facility] [address] [id number] [place] [address]- 5975 08 Jul, 2011 [facility] [address] [id number] [place] [address]- 0199 15 Jun, 2011 [facility] [place] [facility] [address] [id number] [place] [address]- 5102 14 Jun, 2011 [facility] [address] [id number] [place] [address]- 7964 08 Jun, 2011 [facility] [address] [id number] [place] [address]- 0656 08 Jun, 2011 [facility] [address] [id number] [place] [address]- 0719 May, [facility] [place] [facility] [address] [id number] [place] [address]- 2408 May, [facility] [place] [facility] [address] [id number] [place] [address] 5048 May, [facility] [place] [facility] [address] [id number] [place] [address]- 1552 May, [facility] [address] [id number] [address]907 May, [facility] [place] [facility] [address] [id number] [place] [address] 8373 May, [facility] [place] [facility] [address] [id number] [place] [address]- 9195 May, [facility] [place] [facility] [address] [id number] [place] [address]- 9106 Apr, [facility] [place] [facility] [address] [id number] [place] [address]- 6766 Apr, [facility] [place] [facility] [address] [id number] [place] [address]- 2800 13 Apr, 2011 [facility] [address] [id number] [place] [address] Apr, [facility] [place] [facility] [address] [id number] [place] [address] Apr, [facility] [address] [id number] [place] [address]- 0816 Apr, [facility] [place] [facility] [address] [id number] [place] [address]- 0411 Apr, [facility] [address] [id number] [place] [address] Apr, [facility] [place] [facility] [address] [id number] [place] [address]- 3745 Apr, [facility] [address] [id number] [place] [address]- 1916 Apr, [facility] [place] [facility] [address] [id number] [place] [address]- 6756 Mar, [facility] [place] [facility] [address] [id number] [place] [address]- 6009 Mar, [facility] [address] [facility] [id number] [place] [address]- 4580 Feb, [facility] [place] [facility] [address] [id number] [place] [address]- 4447 Jun, [facility] [place] [facility] [address] [id number] [place] [address]- 9575 Apr, [facility] [place] [facility] [address] [id number] [place] [address]- 3140 Feb, [facility] [place] [facility] [address] [id number] [place] [address]- 6029 Feb, [facility] [place] [facility] [address] [id number] [place] [address]- 9477 Feb, [facility] [address] [id number] [address]46 Apr, [facility] [id number] [address]46 Apr, [facility] [address] [facility] [id number] [place] [address]- 2546 Mar, [facility] [id number] [address]- 2546 Mar, [facility] [id number] [address]- 2546 Mar, [facility] [id number] [address]- 2546 Feb, [facility] [id number] [address]- 2546 Feb, [facility] [id number] [address]- 2546 Feb, [facility] [address] [id number] [address] 2546 Jan, IMMUNIZATIONS No Known Immunizations SOCIAL HISTORY Never Assessed REASON FOR VISIT Controlled Med Refill 04/22/18 PLAN OF CARE VITAL SIGNS MEDICATIONS Medication Instructions Dosage Frequency Start Date End Date Duration Status Clonazepam 1 mg Orally 2 times a day 2 tablets 12h 24 Jun, 2014 28 days Active [place] 5-325 MG Orally every 6 hrs 1 tablet 6h Apr, 28 days Active RESULTS No Results PROCEDURES No [...]
--- OUTSIDE RECORDS SUMMARY | 2018-04-28 05:10 | XMS REPORT ---
Author Author MARLEY MCGRATH Organization [facility], [place] Address [address] [place] [address] Care Team Providers Care Filling And Packing Supervisor Name Role Phone MARLEY MCGRATH Unavailable PROBLEMS Type Condition ICD9-CM Code LQV83-MK Code Onset Dates Condition Status SNOMED Code Problem Controlled type 2 diabetes mellitus without complication, without long -term current use of insulin E11.9 Active 433657199 Problem Memory loss R41.3 Active 501753966 Problem Chronic major depressive disorder, recurrent episode F33.9 Active 32707524 Problem Mild neurocognitive disorder G31.84 Active 866533749 Problem Anxiety state, unspecified F41.1 Active 780454613 Problem Anxiety F41.9 Active 92607079 Problem Other chronic pain G89.29 Active 55351036 Problem Dementia with behavioral disturbance, unspecified dementia type F03.91 Active [id number] Problem 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 Active 678379863 Problem Knee pain, right M25.561 Active 81430428 Problem Diabetes type 2, controlled E11.9 Active 38495925 Problem Hypogonadism in male E29.1 Active 44737737 Problem Hypertriglyceridemia E78.1 Active 958997641 Problem Moderate episode of recurrent major depressive disorder F33.1 Active 935623170 Problem Type 2 diabetes mellitus without complications E11.9 Active 274121642 Problem Chronic fatigue R53.82 Active 98941267 Problem Hammertoe of right foot M20.41 Active 820645946 Problem 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.01 Active 6907312 ALLERGIES Substance Reaction Event Type Date Status Sulfamethoxazole-Trimethoprim Unknown Drug Allergy Mar, Active ENCOUNTERS Encounter Location Date Diagnosis [facility] [place] [address] [facility] [id number], [place] [address] Apr, [facility] [place] [address] [facility] [id number], [place] [address] 6[address] Apr, [facility] [place] [address] [place] [id number] [place] [address] 81413- 4358 Apr, [place] [address] [place] [id number] [place] [address] 54822- 7778 Mar, Dementia with behavioral disturbance, unspecified dementia type F03.91 [place] [address] [id number] [place] [address] 90767- 6835 Mar, Mild neurocognitive disorder G31.84 and Anxiety state, unspecified F41.1 [place] [address] [id number] [place] [address] 17149- 6824 Mar, 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 [place] [address] [address]- [address] Mar, Type 2 diabetes mellitus without complications E11.9 and Controlled type 2 diabetes mellitus without complication, without long-term current use of insulin E11.9 [place] [address] [address]- 4841 Mar, USP (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 Z79.01 [place] [address] [id number] [place] [address] 97076- 5186 Mar, Mild neurocognitive disorder G31.84 and Anxiety state, unspecified F41.1 [place] [address] [id number] [place] [address] 55203- 5372 Mar, Anxiety state, unspecified F41.1 and Other signs and symptoms involving cognition R41.89 [place] [address] [place] [id number] [place] [address] 98929- 2269 Mar, [place] [address] [id number] [place] [address] 17074- 4213 Feb, Controlled type 2 diabetes mellitus without complication, without long-term current use of insulin E11.9 ; Anxiety F41.9 ; Diabetes type 2 , controlled E11.9 and 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 [address] [facility] [id number] [place] [address] 29 Jan, 2018 Hypogonadism in male E29.1 [facility] [place] [address] [facility] [id number] [place] [address] 5716 Jan, Medicare welcome exam Z00.00 and Type 2 diabetes mellitus without complications E11.9 [facility] [place] [address] [facility] [id number] [place] [address] 5067 11 Jan, 2018 Hypogonadism in male E29.1 [facility] [place] [address] [facility] [id number] [place] [address]- 7489 Jan, [facility] [place] [address] [facility] [id number], [place] [address] 3670 Dec, Hypogonadism in male E29.1 [facility] [place] [address] [facility] [id number], [place] [address] 0982 Dec, Medicare welcome exam Z00.00 [facility] [place] [address] [facility] [id number], [place] [address] 8422 Dec, Hypogonadism in male E29.1 [facility] [place] [address] [facility] [id number], [place] [address]- 6848 Dec, [facility] [place] [address], [place] [address] 5777 Nov, Hypogonadism in male E29.1 [facility] [place] [address] [facility] [id number], [place] [address] 3614 Nov, Type 2 diabetes mellitus without complications E11.9 and History of Coumadin therapy Z92.29 [facility] [place] [address] [facility] [id number], [place] [address] 3310 Nov, Medicare welcome exam Z00.00 [facility] [place] [address] [facility] [id number], [place] [address] 0814 Nov, Type 2 diabetes mellitus without complications E11.9 ; History of Coumadin therapy Z92.29 and Hypogonadism in male E29.1 [facility] [place] [address], [place] [address] 5[address] 06 Nov, 2017 [facility] [place] [address], [place] [address]- 5385 Oct, [facility] [place] [address], [place] [address] 6148 Oct, Diabetes type 2, controlled E11.9 [facility] [place] [address], [place] [address]- 8588 15 Oct, 2017 Medicare welcome exam Z00.00 [facility] [place] [address], [place] [address] 2912 Oct, Hypogonadism in male E29.1 [facility] [address], [place] [address] Oct, [facility] [place] [address], [place] [address]- 4874 September, Hypogonadism in male E29.1 [facility] [place] [address], [place] [address]- 7767 September, Medicare welcome exam Z00.00 [facility] [place] [address], [place] [address]- 3707 September, Hypogonadism in male E29.1 [facility] [place] [address], [place] [address]- 7875 Aug, Other chronic pain G89.29 ; Memory loss R41.3 ; Controlled type 2 diabetes mellitus without complication, without long-term current use of insulin E11.9 and Chronic major depressive disorder, recurrent episode F33.9 [facility] [place] [address], [place] [address]- 6[address] 11 Aug, 2017 Medicare welcome exam Z00.00 [facility] [place] [address], [place] [address]- 5036 Aug, [facility] [address], [place] [address] Aug, Hypogonadism in male E29.1 [facility] [place] [address], [place] [address]- 3511 Jul, [facility] [place] [id number] [place] [address] 49005- 2257 Jul, Hypogonadism in male E29.1 [facility] [place] [address], [place] [address]- 2387 Jul, [facility] [id number] [place] [address] 02550 -7386 Jul, Hypogonadism in male E29.1 [facility] [place] [id number], [place] [address]- 3813 Jul, Medicare welcome exam Z00.00 [facility] [place] [address], [place] [address]- 5397 Jun, Medicare welcome exam Z00.00 [facility] [address], [place] [address] Jun, Fever R50.9 and Influenza B J10.1 [facility] [place] [id number], [place] [address]- 1757 Jun, Hypogonadism in male E29.1 [facility] [place] [address], [place] [address]- 9898 Jun, Diabetes type 2, controlled E11.9 [facility] [place] [id number] [place] [address] 97784- 7505 May, Hypogonadism in male E29.1 [facility] [place] [address], [place] [address]- 3819 May, USP (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 Z79.01 [facility] [place] [address], [place] [address]- 2385 Apr, Hypogonadism in male E29.1 [facility] [place] [id number], [place] [address]- 6316 Apr, [place] [address], [place] [address]- 6992 Apr, Medicare welcome exam Z00.00 and automatic fabric cutter (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 Z79.01 [facility] [place] [address], [place] [address]- 7153 Apr, Hypogonadism in male E29.1 [place] [address] [place] [id number] [place] [address] 99552- 6735 Mar, Diabetes type 2, controlled E11.9 [place] [address] [id number], [place] [address]- 1249 Mar, Hypogonadism in male E29.1 [place] [address] [id number], [place] [address]- 1793 Mar, Hypogonadism in male E29.1 [place] [address] [id number], [place] [address]- 0482 Feb, Hypogonadism in male E29.1 [place] [address], [place] [address]- 4718 Feb, Malaise R53.81 [place] [address], [place] [address]- 8961 Feb, [place] [id number], [place] [address]- 7596 Feb, Diabetes type 2, controlled E11.9 [facility] [place] [address], [place] [address]- 4790 Feb, Chronic fatigue R53.82 ; Malaise R53.81 and Moderate episode of recurrent major depressive disorder F33.1 [place] [address] [id number] [place] [address] 62334- 7699 11 Jan, 2017 Diabetes type 2, controlled E11.9 [place] [address] [id number] [place] [address] 52091- 4393 Jan, 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.01 and automatic fabric cutter (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 Z79.01 [place] [address] [id number] [place] [address] 19944- 2582 Dec, Diabetes type 2, controlled E11.9 and Hypertriglyceridemia E78.1 [place] [address] [id number] [place] [address] 23945- 8714 Dec, Diabetes type 2, controlled E11.9 [place] [address] [id number] [place] [address] 65648- 4221 Dec, High risk medication use Z79.899 and USP (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 Z79.01 [place] [address] [place] [id number] [place] [address] 90036- 0105 Dec, High risk medication use Z79.899 [place] [address] [id number] [place] [address] 32615- 9674 Nov, Diabetes type 2, controlled E11.9 [place] [address] [id number] [place] [address] 31303- 3727 Oct, Diabetes type 2, controlled E11.9 [place] [address] [id number] [place] [address] 61903- 5804 September, Diabetes type 2, controlled E11.9 [place] [address] [place] [id number] [place] [address] 04791- 2441 Aug, USP (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 Z79.01 [place] [address] [place] [id number] [place] [address] 73613- 6486 Aug, Hematoma of arm, right, initial encounter S40.021A and USP (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 Z79.01 [place] [address] [place] [id number] [place] [address] 97314- 4997 Aug, [facility] [id number] [place] [address] 49870 -1479 18 Aug, 2016 Cellulitis of right upper extremity L03.113 [place] [address] [place] [id number] [place] [address] 03802- 0427 14 Aug, 2016 Diabetes type 2, controlled E11.9 [place] [address] 16849- 8015 Aug, Hammertoe of right foot M20.41 ; Hallux abducto valgus, left M20.12 and Onychomycosis B35.1 [place] [address] 63767- 7793 Aug, automatic fabric cutter (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 Z79.01 [place] [address] 24069- 8283 Aug, USP (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 Z79.01 [place] [address] [place] [id number] [place] [address] 19856- 1353 Aug, automatic fabric cutter (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 Z79.01 [facility] [place] [address] [id number] [place] [address] 16412 -8837 Aug, Right shoulder pain M25.511 and Closed nondisplaced fracture of acromial end of right clavicle, initial encounter S42.034A [place] [address] [place] [id number] [place] [address] 51416- 6825 Jul, Diabetes type 2, controlled E11.9 [place] [address] [place] [id number] [place] [address] 56226- 8023 Jun, Diabetes type 2, controlled E11.9 and USP (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 Z79.01 [place] [address] [place] [id number] [place] [address] 66338- 9469 May, [place] [address] [place] [id number] [place] [address] 87355- 7139 Apr, [facility] [place] [id number], [place] [address]- 5234 Mar, [facility] [place] [address], [place] [address]- 8556 Feb, [facility] [place] [id number] 9824 Dec, Diabetes type 2, controlled E11.9 [facility] [place] [id number], [place] [address]- 8641 Dec, [facility] [place] [address] [place] [id number] [place] [address] 010748- 2674 Nov, [facility] [place] [address], [place] [address]- 8737 Nov, Type 2 diabetes mellitus without complications E11.9 [facility] [place] [address], [place] [address]- 1538 Oct, Type 2 diabetes mellitus without complications E11.9 [facility] [place] [address], [place] [address]- 8361 Aug, [facility] [place] [address], [place] [address]- 5661 Aug, Type 2 diabetes mellitus without complications E11.9 [facility] [place] [address], [place] [address]- 8420 Jun, Type 2 diabetes mellitus without complications E11.9 and 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 [facility] [place] [address], [place] [address]- 8034 May, [facility] [place] [id number] 1836 May, Diabetes type 2, controlled E11.9 [facility] [place] [address], [place] [address]- 7157 Apr, Diabetes type 2, controlled E11.9 [facility] [place] [address], [place] [address]- 7578 Mar, Diabetes type 2, controlled E11.9 ; Knee pain, right M25.561 ; Other chronic pain G89.29 and Medication monitoring encounter Z51.81 [facility] [place] [id number], [place] [address]- 1066 Feb, Type 2 diabetes mellitus without complications E11.9 ; High risk medication use Z79.899 and Anxiety F41.9 [facility] [place] [address] [place] [id number] [place] [address] 38213- 7752 Jan, Diabetes 250.00 [facility] [place] [address] [id number] [place] [address] 63714 2546 Dec, Diabetes 250.00 [facility] [place] [address] [id number] [place] [address] 46394 2546 Nov, Diabetes 250.00 [facility] [place] [id number] [place] [address] 72986 2546 Nov, [facility] [place] [id number] [place] [address] 25696- 5432 Oct, Diabetes mellitus type 1 250.01 and High risk medication use V58.69 [facility] [place] [address], [place] [address]- 0146 Oct, [facility] [place] [address], [place] [address]- 4166 September, [facility] [place] [address], [place] [address] 2546 Aug, [facility] [place] [id number] [place] [address] 44340 2546 Aug, [facility] [place] [address], [place] [address] 2546 Jul, [facility] [place] [id number] [place] [address] 05157- 6009 Jul, [facility] [place] [facility] [address] [id number] [place] [address]- 0118 Jun, [facility] [place] [facility] [address] [id number] [place] [address]- 8770 Jun, [facility] [place] [facility] [address] [id number] [place] [address]- 9931 Jun, [facility] [place] [facility] [address] [id number] [place]9 May, [facility] [place] [facility] [address] [id number] [place] [address]- 6786 May, [facility] [place] [facility] [address] [id number] [place] [address]- 7727 Apr, [facility] [place] [facility] [address] [id number] [place] [address]- 4659 Apr, [facility] [place] [facility] [address] [id number] [place] [address]- 6171 Apr, [facility] [place] [facility] [address] [id number] [place] [address]- 0640 Apr, [facility] [place] [facility] [address] [id number] [place] [address]- 4376 Apr, [facility] [place] [facility] [address] [id number] [place] [address]- 7662 Apr, [facility] [place] [facility] [address] [id number], [place] [address]- 6641 Feb, [facility] [place] [facility] [address] [id number] [place] [address]- 7891 Feb, [facility] [place] [facility] [address] [id number] [place] 4692 Feb, [facility] [place] [facility] [address] [id number] [place] [address]304 Feb, [facility] [place] [facility] [address] [id number] [place] [address]- 5487 Dec, [facility] [place] [facility] [address] [id number] [place] [address]- 8727 Dec, [facility] [place] [facility] [address] [id number] [place] [address]- 6371 Nov, [facility] [place] [facility] [address] [id number] [place] [address]- 5987 Nov, [facility] [place] [facility] [address] [id number] [place] [address]- 2054 Oct, [facility] [place] [facility] [address] [id number] [place] [address]- 8970 Oct, [facility] [place] [facility] [address] [id number] [place] [address]- 3909 Oct, [facility] [place] [facility] [address] [id number] [place] [address]- 0877 Oct, [facility] [place] [facility] [address] [id number] [place] [address]- 7657 Oct, [facility] [place] [facility] [address] [id number] [place] [address]- 3868 Oct, [facility] [address] [id number] [place] [address]- 8529 September, [facility] [place] [facility] [address] [id number] [place] [address]- 5750 September, [facility] [place] [facility] [address] [id number] [place] [address]- 2555 September, [facility] [place] [facility] [address] [id number] [place]84 September, [facility] [place] [facility] [address] [id number] [place] [address]- 1532 September, [facility] [place] [facility] [address] [id number] [place] [address]- 8392 September, [facility] [place] [facility] [address] [id number] [place] [address]- 8738 Aug, [facility] [place] [facility] [address] [id number] [place] [address]- 0467 Aug, [facility] [place] [facility] [address] [id number] [place] [address]- 7798 Aug, [facility] [place] [facility] [address] [id number] [place] [address]- 6523 Aug, [facility] [place] [facility] [address] [id number] [place] [address]- 8683 Aug, [facility] [place] [facility] [address] [id number] [place] [address]- 5248 Aug, [facility] [place] [facility] [address] [id number] [place] [address]- 4649 Jul, [facility] [place] [facility] [address] [id number] [place] [address]- 3707 Jul, [facility] [place] [facility] [address] [id number] [place] [address]- 8989 Jul, [facility] [place] [facility] [address] [id number] [place] [address]- 5856 Jul, [facility] [place] [facility] [address] [id number] [place] [address]- 5448 May, [facility] [place] [facility] [address] [id number] [place] [address]- 1073 May, [facility] [place] [facility] [address] [id number] [place] [address]- 8316 Apr, [facility] [place] [facility] [address] [id number] [place] [address]- 4296 Apr, [facility] [place] [facility] [address] [id number] [place] [address]- 1012 Apr, [facility] [place] [facility] [address] [id number], [place] [address]- 4441 Apr, [facility] [address] [id number] [place] [address]- 4072 Apr, [facility] [place] [facility] [address] [id number], [place] [address] Apr, [facility] [address] [facility] [id number] [place] [address] Feb, [facility] [place] [facility] [address] [id number], [place] [address] Feb, [facility] [address] [facility] [id number] [place] [address] Feb, [facility] [place] [facility] [address] [id number] [place] [address] Feb, [facility] [address] [facility] [id number], [place] [address] Feb, [facility] [facility] [address] [facility] [id number], [place] [address] Feb, [facility] [facility] [address] [facility] [id number], [place] [address] Feb, [facility] [place] [facility] [address] [facility] [id number], [place] [address] Feb, [facility] [place] [facility] [address] [id number], [place] [address] Jan, [facility] [facility] [address] [id number], [place] [address] Jan, [facility] [facility] [address] [id number], [place] [address] 19 Jan, 2013 [facility] [facility] [address] [facility] [id number][place] [address] [address] Jan, [facility] [facility] [address] [facility] [id number], [place] [address] Dec, [facility] [place] [facility] [address] [id number] [place] [address] Dec, [facility] [address] [id number] [place] [address] Dec, [facility] [place] [facility] [address] [id number] [place] [address] Nov, [facility] [place] [facility] [address] [id number] [place] [address] Nov, [facility] [facility] [address] [id number] [place] [address] Oct, [facility] [facility] [address] [id number] [place] [address] September, [facility] [facility] [address] [id number] [place] [address] September, [facility] [place] [facility] [address] [id number] [place] [address] September, [facility] [address] [id number] [place] [address] Aug, [facility] [address] [id number] [place] [address] Aug, [facility] [address] [id number] [place] [address] Aug, [facility] [place] [facility] [address] [id number] [place] [address] Jul, [facility] [place] [facility] [address] [id number] [place] [address] Jul, [facility] [place] [facility] [address] [id number] [place] [address] Jun, [facility] [place] [facility] [address] [id number] [place] [address] Jun, [facility] [place] [facility] [address] [id number] [place] [address] Jun, [facility] [place] [facility] [address] [id number] [place] [address] Jun, [facility] [place] [facility] [address] [id number] [place] [address] May, [facility] [place] [facility] [address] [id number] [place] [address] May, [facility] [place] [facility] [address] [id number] [place] [address] Apr, [facility] [place] [facility] [address] [id number] [place] [address] Apr, [facility] [place] [facility] [address] [id number] [place] [address] Apr, [facility] [place] [facility] [address] [id number] [place] [address] Apr, [facility] [place] [facility] [address] [id number] [place] [address] Apr, [facility] [place] [facility] [address] [id number] [place] [address] Apr, [facility] [place] [facility] [address] [id number] [place] [address] Mar, [facility] [place] [facility] [address] [id number] [place] [address] Mar, [facility] [place] [facility] [address] [id number], [place] [address] Mar, [facility] [place] [facility] [address] [id number] [place] [address]258 Mar, [facility] [place] [facility] [address] [id number] [place] [address] Mar, [facility] [place] [facility] [address] [id number] [place] [address] Mar, [facility] [place] [facility] [address] [id number] [place] [address] Feb, [facility] [place] [facility] [address] [id number] [place] [address] Feb, [facility] [place] [facility] [address] [id number] [place] [address] Feb, [facility] [place] [facility] [address] [id number] [place] [address] Feb, [facility] [place] [facility] [address] [id number] [place] [address] Feb, [facility] [place] [facility] [address] [id number] [place] [address] Jan, [facility] [place] [facility] [address] [id number] [place] [address] Jan, [facility] [place] [facility] [address] [id number] [place] [address] Jan, [facility] [place] [facility] [address] [id number] [place] [address] 14[address] Dec, [facility] [place] [facility] [address] [id number] [place] [address] Dec, [facility] [place] [facility] [address] [id number] [place] [address] Nov, [facility] [place] [facility] [address] [id number] [place] [address] Oct, [facility] [place] [facility] [address] [id number] [place] [address] Oct, [facility] [place] [facility] [address] [id number] [place] [address] Oct, [facility] [place] [facility] [address] [id number] [place] [address] Oct, [facility] [place] [facility] [address] [id number] [place] [address] Oct, [facility] [place] [facility] [address] [id number] [place] [address]9 16 Sep, 2011 [facility] [place] [facility] [address] [id number] [place] [address] 18 Aug, 2011 [facility] [place] [facility] [address] [id number] [place] [address] 18 Aug, 2011 [facility] [place] [facility] [address] [id number] [place] [address]18 17 Aug, 2011 [facility] [place] [facility] [address] [id number] [place] [address] 16 Aug, 2011 [facility] [place] [facility] [address] [id number] [place] [address] 13 Aug, 2011 [facility] [place] [facility] [address] [id number] [place] [address] Aug, [facility] [place] [facility] [address] [id number] [place] [address] 3060 Aug, [facility] [place] [facility] [address] [id number] [place] [address] Aug, [facility] [place] [facility] [address] [id number] [place] [address] 8917 Aug, [facility] [place] [facility] [address] [id number] [place] [address] Jul, [facility] [place] [facility] [address] [id number], [place] [address] Jul, [facility] [place] [facility] [address] [id number] [place] [address] Jul, [facility] [place] [facility] [address] [id number] [place] [address] 9776 17 Jul, 2011 [facility] [place] [facility] [address] [id number] [place] [address] 08 Jul, 2011 [facility] [place] [facility] [address] [id number], [place] [address] 15 Jun, 2011 [facility] [address] [id number] [place] [address] 14 Jun, 2011 [facility] [place] [facility] [address] [id number] [place] [address]- 6426 08 Jun, 2011 [facility] [address] [id number] [place] [address] 6976 08 Jun, 2011 [facility] [place] [facility] [address] [id number] [place] [address] 9131 19 May, 2011 [facility] [address] [id number] [place] [address]- 6755 13 May, 2011 [facility] [place] [facility] [address] [id number] [place] [address] 9469 May, [facility] [address] [id number] [place] [address] May, [facility] [address] [id number] [place] [address] May, [facility] [address] [id number] [place] [address] 1044 May, [facility] [address] [facility] [id number] [place] [address]107 May, [facility] [address] [id number] [place] [address]955 Apr, [facility] [place] [facility] [address] [id number] [place] [address]- 254 Apr, [facility] [place] [facility] [address] [id number] [place] [address] 7216 Apr, [facility] [place] [facility] [address] [id number] [place] [address] 2546 Apr, [facility] [place] [facility] [address] [id number] [place] [address]- 5376 Apr, [facility] [place] [facility] [address] [id number] [place] [address]- 8472 Apr, [facility] [address] [id number] [place] [address] Apr, [facility] [address] [id number] [place] [address] 1200 Apr, [facility] [address] [id number] [place] [address]- 4590 Apr, [facility] [address] [id number] [place] [address]- 0701 Apr, [facility] [address] [id number] [place] [address] 2747 Mar, [facility] [address] [id number] [place] [address] 9466 Mar, [facility] [address] [id number] [place] [address]- 6176 Feb, [facility] [address] [id number] [place] [address] 1646 Jun, [facility] [address] [id number] [place] [address] Apr, [facility] [address] [id number] [place] [address]- 9175 Feb, [facility] [address] [id number], [place] [address] Feb, [facility] [place] [facility] [address] [id number] [place] [address]- 8378 Feb, [facility] [place] [facility] [address] [id number] [place] [address]- 7859 Apr, [facility] [place] [facility] [address] [id number] [place] [address]- 5539 Apr, [facility] [place] [facility] [address] [id number] [place] [address] Mar, [facility] [place] [address] [facility] [id number], [place] [address]- [address] Mar, [facility] [place] [address] [id number], [place] [address] Mar, [facility] [place] [address] [facility] [id number], [place] [address]- [address]163 Feb, [facility] [place] [address] [facility] [id number], [place] [address]- 67[address] Feb, [facility] [place] [address] [facility] [id number] [address] Feb, [facility] [place] [address] [facility] [id number][place] [address] Jan, IMMUNIZATIONS No Known Immunizations SOCIAL HISTORY Never Assessed REASON FOR VISIT Anxiety, - [place] PATIÑO PLAN OF CARE VITAL SIGNS Height 69 in 2018-04-02 Weight 237 lbs 2018-04-02 Temperature 97.5 degrees Fahrenheit 2018-04-02 Heart Rate 84 bpm 2018-04-02 Respiratory Rate 20 2018-04-02 Oximetry 95 % 2018-04-02 BMI 34.99 kg/m2 2018-04-02 Blood pressure systolic 128 mmHg 2018-04-02 Blood pressure diastolic 72 mmHg 2018-04-02 MEDICATIONS Medication Instructions Dosage Frequency Start Date End Date Duration Status Metformin HCl 500 mg Orally 2 times a day 3 tablets 12h Active Amlodipine Besylate 10 MG TAKE 1 TABLET ONE TIME DAILY (APPOINTMENT NEEDED FOR FURTHER REFILLS) 90 Active Paroxetine HCl 40 MG TAKE 1 TABLET ONE TIME DAILY IN THE MORNING 90 Active Warfarin Sodium 6 MG TAKE 1 TABLET EVERY DAY 90 Active Potassium Chloride Pati ER 10 MEQ 1 tablet with food 24h Active Actos 30 MG Orally Once a day 1 tablet 24h 30 days Active [place] 5-325 MG Orally every 6 hrs 1 tablet 6h Mar, 28 days Active Clonidine HCl 0.2 MG 1 tablet 12h 90 Active Lovastatin 20 mg 1 tablet with a meal 24h Active Blood Glucose Test Strip Test Strips as directed Nov, Active Depo-Testosterone 100 MG/ML Intramuscular 2 times a month 1 ml Feb, 140 days Active Donepezil HCl 5 mg Orally Once a day 1 tablet at bedtime 24h Mar, 90 days Active Clonazepam 1 mg Orally 2 times a day 2 tablets 12h 24 Jun, 2014 28 days Active Topamax 50 mg 1 tablet 12h 90 Active Enalapril Maleate 5 MG TAKE 1 TABLET TWICE DAILY (APPOINTMENT NEEDED FOR FURTHER REFILLS) 90 Active RESULTS No Results PROCEDURES Procedure Date Ordered Result Body Site [facility] VISIT ESTABLISHED PATIENT Apr 02, 2018 INSTRUCTIONS MEDICATIONS ADMINISTERED No Known Medications MEDICAL [...]
--- OUTSIDE RECORDS SUMMARY | 2018-04-28 05:10 | XMS REPORT ---
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 Mechanic Name Role Phone MARLEY MCGRATH Unavailable PROBLEMS Type Condition ICD9-CM Code CUU10-UV Code Onset Dates Condition Status SNOMED Code Problem Controlled type 2 diabetes mellitus without complication, without long -term current use of insulin E11.9 Active 190280782 Problem Memory loss R41.3 Active 363792338 Problem Chronic major depressive disorder, recurrent episode F33.9 Active 47151869 Problem Mild neurocognitive disorder G31.84 Active 616278897 Problem Anxiety state, unspecified F41.1 Active 901475040 Problem Anxiety F41.9 Active 67192326 Problem Other chronic pain G89.29 Active 04819145 Problem Dementia with behavioral disturbance, unspecified dementia type F03.91 Active 3361747063685 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 Active 192121724 Problem Knee pain, right M25.561 Active 40117677 Problem Diabetes type 2, controlled E11.9 Active 25809032 Problem Hypogonadism in male E29.1 Active 97587064 Problem Hypertriglyceridemia E78.1 Active 471210523 Problem Moderate episode of recurrent major depressive disorder F33.1 Active 419817322 Problem Type 2 diabetes mellitus without complications E11.9 Active 524504685 Problem Chronic fatigue R53.82 Active 36946633 Problem Hammertoe of right foot M20.41 Active 118887329 Problem 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.01 Active [id number] ALLERGIES No Information ENCOUNTERS Encounter Location Date Diagnosis [facility] [id number], [place] [address] Apr, [facility] [address], [place] [address] 8698 Apr, Medicare welcome exam Z00.00 [facility] [id number] [place] [address] 85005- 3171 Apr, [place] [id number] [place] [address] 55216- 8568 Apr, [place] [id number] [place] [address] 87356- 0543 Mar, Dementia with behavioral disturbance, unspecified dementia type F03.91 [place] [id number] [place] [address] 91203- 6737 Mar, Mild neurocognitive disorder G31.84 and Anxiety state, unspecified F41.1 [place] [id number] [place] [address] 33620- 4288 Mar, 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 [place] [id number] [place] [address] 83387- 2482 Mar, Type 2 diabetes mellitus without complications E11.9 and Controlled type 2 diabetes mellitus without complication, without long-term current use of insulin E11.9 [place] [address] [place] [address] 53054- 1086 Mar, alf (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 Z79.01 [place] [id number] [place] [address] 94349- 6896 Mar, Mild neurocognitive disorder G31.84 and Anxiety state, unspecified F41.1 [place] [id number] [place] [address] 70520- 2516 Mar, Anxiety state, unspecified F41.1 and Other signs and symptoms involving cognition R41.89 [place] [id number] [place] [address] 36443- 7448 Mar, [place] [id number] [place] [address] 30704- 5229 Feb, Controlled type 2 diabetes mellitus without complication, without long-term current use of insulin E11.9 ; Anxiety F41.9 ; Diabetes type 2 , controlled E11.9 and 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 [place] [address] [facility] [id number] [address] 18 Feb, 2018 Medicare welcome exam Z00.00 and Type 2 diabetes mellitus without complications E11.9 [facility] [address] [facility] [id number] [place] [address] 2546 29 Jan, 2018 Hypogonadism in male E29.1 [facility] [address] [facility] [id number], [place] [address] 2546 Jan, Medicare welcome exam Z00.00 and Type 2 diabetes mellitus without complications E11.9 [facility] [address] [facility] [id number] [place] [address] 2546 11 Jan, 2018 Hypogonadism in male E29.1 [facility] [address] [facility] [id number] [place] [address] 2546 Jan, [facility] [address] [facility] [id number], [place] [address] 8576 Dec, Hypogonadism in male E29.1 [facility] [address] [facility] [id number], [place] [address] 2706 Dec, Medicare welcome exam Z00.00 [facility] [address] [facility] [id number], [place] [address] 2546 Dec, Hypogonadism in male E29.1 [facility] [address] [facility] [id number], [place] [address] 3376 Dec, [facility] [address] [facility] [id number], [place] [address]- 2546 Nov, Hypogonadism in male E29.1 [facility] [address] [facility] [id number], [place] [address] 9496 Nov, Type 2 diabetes mellitus without complications E11.9 and History of Coumadin therapy Z92.29 [facility] [address] [facility] [id number], [place] [address] 6356 Nov, Medicare welcome exam Z00.00 [facility] [address], [place] [address] 1545 12 Nov, 2017 Type 2 diabetes mellitus without complications E11.9 ; History of Coumadin therapy Z92.29 and Hypogonadism in male E29.1 [facility] [address], [place] [address] 8363 06 Nov, 2017 [facility] [address], [place] [address] 8858 Oct, [facility] [address], [place] [address]- 0264 15 Oct, 2017 Diabetes type 2, controlled E11.9 [facility] [address], [place] [address]- 0395 15 Oct, 2017 Medicare welcome exam Z00.00 [facility] [address], [place] [address] 1221 Oct, Hypogonadism in male E29.1 [facility] [address], [place] [address] 09 Oct, 2017 [facility] [address], [place] [address] 6630 September, Hypogonadism in male E29.1 [facility] [address], [place] [address]- 9235 15 Sep, 2017 Medicare welcome exam Z00.00 [facility] [id number] [address]- 2065 September, Hypogonadism in male E29.1 [facility] [id number], [place] [address] 2613 Aug, Other chronic pain G89.29 ; Memory loss R41.3 ; Controlled type 2 diabetes mellitus without complication, without long-term current use of insulin E11.9 and Chronic major depressive disorder, recurrent episode F33.9 [facility] [id number] [address]- 4767 11 Aug, 2017 Medicare welcome exam Z00.00 [facility] [address], [place] [address]- 2212 Aug, [facility] [address], [place] [address] Aug, Hypogonadism in male E29.1 [facility] [address], [place] [address]- 1858 Jul, [facility] [id number] [place] [address] 92367- 6114 Jul, Hypogonadism in male E29.1 [facility] [id number] [place] [address] 80982- 8194 Jul, [facility] [address], [place] [address] Jul, Hypogonadism in male E29.1 [facility] [id number] [place] [address] 38431- 6687 Jul, Medicare welcome exam Z00.00 [facility] [address] [address]- 4672 Jun, Medicare welcome exam Z00.00 [facility] [address], [place] [address] Jun, Fever R50.9 and Influenza B J10.1 [facility] [address], [place] [address]- 6349 Jun, Hypogonadism in male E29.1 [facility] [address], [place] [address]- 0598 Jun, Diabetes type 2, controlled E11.9 [facility] [address], [place] [address]- 5749 May, Hypogonadism in male E29.1 [facility] [address] [address]- 3145 May, alf (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 Z79.01 [facility] [address], [place] [address]- 5346 Apr, Hypogonadism in male E29.1 [facility] [address], [place] [address]- 0796 Apr, [place] [id number], [place] [address]- 8447 Apr, Medicare welcome exam Z00.00 and lobsterman (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 Z79.01 [place] [address], [place] [address]- 9836 Apr, Hypogonadism in male E29.1 [place] [id number], [place] [address]- 1508 Mar, Diabetes type 2, controlled E11.9 [place] [id number] [address]- 9584 Mar, Hypogonadism in male E29.1 [facility] [id number], [place] [address]- 9496 Mar, Hypogonadism in male E29.1 [place] [id number] [address]- 2136 Feb, Hypogonadism in male E29.1 [place] [address], [place] [address]- 1146 Feb, Malaise R53.81 [place] [address], [place] [address]- 9179 Feb, [place] [id number] [place] [address] 00988- 0076 Feb, Diabetes type 2, controlled E11.9 [facility] [address], [place] [address]- 1813 Feb, Chronic fatigue R53.82 ; Malaise R53.81 and Moderate episode of recurrent major depressive disorder F33.1 [facility] [id number] [place] [address] 35686- 5126 11 Jan, 2017 Diabetes type 2, controlled E11.9 [place] [id number] [place] [address] 58052 2546 Jan, 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.01 and alf (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 Z79.01 [place] [id number] [place] [address] 04874 2546 Dec, Diabetes type 2, controlled E11.9 and Hypertriglyceridemia E78.1 [place] [address] 02374- 1722 Dec, Diabetes type 2, controlled E11.9 [place] [id number] [place] [address] 39987- 3040 Dec, High risk medication use Z79.899 and alf (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 Z79.01 [place] [id number] [place] [address] 28131 2548 Dec, High risk medication use Z79.899 [place] [id number] [place] [address] 27283 2542 Nov, Diabetes type 2, controlled E11.9 [place] [id number] [place] [address] 80260 2546 Oct, Diabetes type 2, controlled E11.9 [place] [id number] [place] [address] 12873 2547 September, Diabetes type 2, controlled E11.9 [place] [id number] [place] [address] 84489 2542 Aug, lobsterman (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 Z79.01 [place] [address] [place] [address] 32808 2546 Aug, Hematoma of arm, right, initial encounter S40.021A and alf (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 Z79.01 [place] [id number] [place] [address] 23159- 1258 Aug, [facility] [id number] [place] [address] 87571 -8093 Aug, Cellulitis of right upper extremity L03.113 [place] [address] 93822- 8988 Aug, Diabetes type 2, controlled E11.9 [place] [address] 41989- 7044 Aug, Hammertoe of right foot M20.41 ; Hallux abducto valgus, left M20.12 and Onychomycosis B35.1 [place] [id number] [place] [address] 53997- 1787 Aug, lobsterman (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 Z79.01 [place] [id number] [place] [address] 04215- 2888 Aug, alf (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 Z79.01 [place] [id number] [place] [address] 89895- 8357 Aug, lobsterman (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 Z79.01 [facility] [place] [id number] [place] [address] 99079 -8704 Aug, Right shoulder pain M25.511 and Closed nondisplaced fracture of acromial end of right clavicle, initial encounter S42.034A [place] [id number] [place] [address] 16996- 3531 Jul, Diabetes type 2, controlled E11.9 [place] [id number] [place] [address] 38720- 8471 Jun, Diabetes type 2, controlled E11.9 and lobsterman (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 Z79.01 [place] [id number] [place] [address] 29505- 0831 May, [facility] [address], [place] [address]- 7194 Apr, [facility] [address], [place] [address]- 4168 Mar, [facility] [address] 1056 Feb, [facility] [id number] [place] [address] 10523- 5899 Dec, Diabetes type 2, controlled E11.9 [facility] [address], [place] [address]- 6771 Dec, [facility] [address], [place] [address]- 3160 Nov, [facility] [address] [place] [address] 92929- 0107 Nov, Type 2 diabetes mellitus without complications E11.9 [facility] [address], [place] [address]- 5882 Oct, Type 2 diabetes mellitus without complications E11.9 [facility] [address], [place] [address]- 8934 Aug, [facility] [address], [place] [address]- 2029 Aug, Type 2 diabetes mellitus without complications E11.9 [facility] [address], [place] [address]- 1933 Jun, Type 2 diabetes mellitus without complications E11.9 and 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 long-term use of antiplatelet drug Z79.02 [facility] [address], [place] [address]- 7108 May, [facility] [address], [place] [address]- 0678 May, Diabetes type 2, controlled E11.9 [facility] [id number], [place] [address]- 5239 Apr, Diabetes type 2, controlled E11.9 [facility] [id number] [place] [address] 04912- 8083 Mar, Diabetes type 2, controlled E11.9 ; Knee pain, right M25.561 ; Other chronic pain G89.29 and Medication monitoring encounter Z51.81 [facility] [id number] [place] [address] 36133- 9142 Feb, Type 2 diabetes mellitus without complications E11.9 ; High risk medication use Z79.899 and Anxiety F41.9 [place] [id number] [place] [address] 07618- 4754 Jan, Diabetes 250.00 [facility] [id number] [place] [address] 39803- 8205 Dec, Diabetes 250.00 [facility] [id number] [place] [address] 37107- 0129 Nov, Diabetes 250.00 [facility] [id number] [place] [address] 32227- 6898 Nov, [facility] [id number] [place] [address] 19344- 6748 Oct, Diabetes mellitus type 1 250.01 and High risk medication use V58.69 [facility] [id number] [place] [address] 51714- 0679 Oct, [facility] [id number] [place] [address] 96120- 6293 September, [facility] [id number] [place] [address] 89215- 1833 Aug, [facility] [id number] [place] [address] 32890279- 3943 Aug, [facility] [address] [place] [address] 06825- 9172 Jul, [facility] [place] [facility] [address] [id number] [place] [address]- 5889 Jul, [facility] [place] [facility] [address] [id number] [place] [address]- 6255 Jun, [facility] [place] [facility] [address] [id number] [place] [address]- 4688 Jun, [facility] [place] [facility] [address] [id number] [place] [address]- 8114 Jun, [facility] [place] [facility] [address] [id number] [place] [address]- 0168 May, [facility] [place] [facility] [address] [id number] [place] [address]- 7590 May, [facility] [place] [facility] [address] [id number] [place] [address]- 5803 Apr, [facility] [place] [facility] [address] [id number] [place] [address]- 9930 Apr, [facility] [place] [facility] [address] [id number] [place] [address]- 7753 Apr, [facility] [place] [facility] [address] [id number] [place] [address]- 5635 Apr, [facility] [place] [facility] [address] [id number] [place] [address]- 4110 Apr, [facility] [place] [facility] [address] [id number] [place] [address]- 5445 Apr, [facility] [place] [facility] [address] [id number] [place] [address]- 6962 Feb, [facility] [place] [facility] [address] [id number] [place] [address]- 6427 Feb, [facility] [place] [facility] [address] [id number] [place] 4060 Feb, [facility] [place] [facility] [address] [id number] [place] [address]- 6189 Feb, [facility] [place] [facility] [address] [id number] [place] [address]- 1569 Dec, [facility] [place] [facility] [address] [id number] [place] [address]- 9119 Dec, [facility] [place] [facility] [address] [id number] [place] [address]- 2821 Nov, [facility] [place] [facility] [address] [id number] [place] [address]- 0201 Nov, [facility] [place] [facility] [address] [id number] [place] [address]- 6453 Oct, [facility] [place] [facility] [address] [id number] [place] [address]- 9003 Oct, [facility] [place] [facility] [address] [id number] [place] [address]- 7304 Oct, [facility] [place] [facility] [address] [id number] [place] [address]- 3047 Oct, [facility] [place] [facility] [address] [id number] [place] [address]- 3707 Oct, [facility] [place] [facility] [address] [id number] [place] [address]- 9161 Oct, [facility] [place] [facility] [address] [id number] [place] [address]- 6170 September, [facility] [place] [facility] [address] [id number] [place] [address]- 5987 September, [facility] [place] [facility] [address] [id number] [place] [address]- 0136 September, [facility] [place] [facility] [address] [id number] [place] [address]- 1350 September, [facility] [place] [facility] [address] [id number] [place] [address]- 4766 September, [facility] [place] [facility] [address] [id number] [place] [address]- 0336 September, [facility] [place] [facility] [address] [id number] [place] [address]- 9733 Aug, [facility] [place] [facility] [address] [id number] [place] [address]- 1596 Aug, [facility] [place] [facility] [address] [id number] [place] [address]- 9396 Aug, [facility] [place] [facility] [address] [id number] [place] [address]- 9456 Aug, [facility] [place] [facility] [address] [id number] [place] [address]- 4676 Aug, [facility] [place] [facility] [address] [id number] [place] [address]- 3924 Aug, [facility] [place] [facility] [address] [id number] [place] [address]- 2296 Jul, [facility] [place] [facility] [address] [id number] [place] [address]- 3912 Jul, [facility] [place] [facility] [address] [id number] [place] [address]- 9965 Jul, [facility] [place] [facility] [address] [id number] [place] [address]- 2705 Jul, [facility] [place] [facility] [address] [id number] [place] [address]- 6924 May, [facility] [place] [facility] [address] [id number] [place] [address]- 0683 May, [facility] [place] [facility] [address] [id number] [place] [address] Apr, [facility] [place] [facility] [address] [id number] [place] [address] Apr, [facility] [place] [facility] [address] [id number] [place] [address] Apr, [facility] [place] [facility] [address] [id number] [place] [address] Apr, 2012 [facility] [place] [facility] [address] [id number] [place] [address] Apr, [facility] [place] [facility] [address] [id number] [place] [address] Apr, [facility] [place] [facility] [address] [id number] [place] [address] Feb, [facility] [place] [facility] [address] [id number] [place] [address] Feb, [facility] [place] [facility] [address] [id number] [place] [address] Feb, [facility] [place] [facility] [address] [id number] [place] [address] Feb, [facility] [place] [facility] [address] [id number], [place] [address] Feb, [facility] [place] [facility] [address] [id number], [place] [address] Feb, [facility] [place] [facility] [address] [id number], [place] [address] Feb, [facility] [place] [facility] [address] [id number], [place] [address] Feb, [facility] [place] [facility] [address] [id number], [place] [address] Jan, [facility] [place] [facility] [address] [id number], [place] [address] 23 Jan, 2013 [facility] [place] [facility] [address] [id number], [place] [address] 19 Jan, 2013 [facility] [place] [facility] [address] [id number], [place] [address] Jan, [facility] [place] [facility] [address] [id number] [place] [address] Dec, [facility] [address] [id number] [place] [address] Dec, [facility] [address] [id number] [place] [address] Dec, [facility] [address] [id number] [place] [address] Nov, [facility] [address] [id number] [place] [address] Nov, [facility] [address] [id number] [place] [address] Oct, [facility] [address] [id number] [place] [address] September, [facility] [address] [id number] [place] [address] September, [facility] [address] [id number] [place] [address] September, [facility] [address] [id number] [place] [address] Aug, [facility] [address] [id number] [place] [address] 16 Aug, 2012 [facility] [address] [id number] [place] [address] Aug, [facility] [address] [id number] [place] [address] Jul, [facility] [place] [facility] [address] [id number] [place] [address] Jul, [facility] [place] [facility] [address] [id number] [place] [address] Jun, [facility] [address] [id number] [place] [address] Jun, [facility] [place] [facility] [address] [id number] [place] [address] Jun, [facility] [place] [facility] [address] [id number] [place] [address]- [address] Jun, [facility] [place] [facility] [address] [id number] [place] [address] May, [facility] [place] [facility] [address] [id number] [place] [address] May, [facility] [place] [facility] [address] [id number] [place] [address] Apr, [facility] [place] [facility] [address] [id number] [place] [address] Apr, [facility] [place] [facility] [address] [facility] [id number] [place] [address] Apr, [facility] [place] [facility] [address] [id number] [place] [address] Apr, [facility] [place] [facility] [address] [id number] [place] [address] Apr, [facility] [place] [facility] [address] [facility] [id number] [place] [address] Apr, [facility] [place] [facility] [address] [facility] [id number], [place] [address] Mar, [facility] [place] [facility] [address] [id number], [place] [address] Mar, [facility] [place] [facility] [address] [id number] [place] [address] Mar, [facility] [place] [facility] [address] [id number] [place] [address] Mar, [facility] [place] [facility] [address] [facility] [id number] [address] Mar, [facility] [place] [facility] [address] [id number], [place] [address] Mar, [facility] [place] [facility] [address] [id number] [place] [address] Feb, [facility] [place] [facility] [address] [id number] [place] [address] 1986 Feb, [facility] [place] [facility] [address] [facility] [id number] [place] [address]686 Feb, [facility] [place] [facility] [address] [id number] [place] [address] Feb, [facility] [place] [facility] [address] [id number] [place] [address] Feb, [facility] [place] [facility] [address] [id number] [place] [address] Jan, [facility] [place] [facility] [address] [facility] [id number] [place] [address]146 Jan, [facility] [place] [facility] [address] [facility] [id number] [place] [address] Jan, [facility] [place] [facility] [id number] [place] [address] Dec, [facility] [place] [facility] [address] [facility] [id number] [place] [address] Dec, [facility] [place] [facility] [address] [facility] [id number], [place] [address] Nov, [facility] [place] [facility] [address] [facility] [id number] [place] [address] Oct, [facility] [place] [facility] [address] [id number] [place] [address] Oct, [facility] [place] [facility] [address] [facility] [id number] [place] [address] 9728 Oct, [facility] [place] [facility] [address] [facility] [id number] [place] [address] Oct, [facility] [place] [facility] [address] [id number] [place] [address] 06 Oct, 2011 [facility] [place] [facility] [address] [id number] [place] [address]- 1506 16 Sep, 2011 [facility] [place] [facility] [address] [id number] [place] [address]- [address]6 18 Aug, 2011 [facility] [place] [facility] [address] [id number] [place] [address]686 18 Aug, 2011 [facility] [place] [facility] [address] [id number] [place] [address]- 7982 17 Aug, 2011 [facility] [place] [facility] [address] [id number] [place] [address] 7582 16 Aug, 2011 [facility] [place] [facility] [address] [id number] [place] [address]25 13 Aug, 2011 [facility] [place] [facility] [address] [id number] [place] [address] 3430 11 Aug, 2011 [facility] [place] [facility] [address] [id number] [place] [address] 6313 11 Aug, 2011 [facility] [place] [facility] [address] [id number] [place] [address] 8[address] 05 Aug, 2011 [facility] [place] [facility] [address] [id number] [place] [address]- 1771 05 Aug, 2011 [facility] [place] [facility] [address] [id number] [place] [address]- 2661 20 Jul, 2011 [facility] [place] [facility] [address] [id number] [place] [address]- 9318 20 Jul, 2011 [facility] [place] [facility] [address] [id number] [place] [address]- 6886 20 Jul, 2011 [facility] [place] [facility] [address] [id number] [place] [address] 8026 17 Jul, 2011 [facility] [place] [facility] [address] [id number] [place] [address]- 9747 08 Jul, 2011 [facility] [place] [facility] [address] [id number] [place] [address] 8612 15 Jun, 2011 [facility] [place] [facility] [address] [id number] [place] [address]- 4316 14 Jun, 2011 [facility] [place] [facility] [address] [id number] [place] [address]- 9576 08 Jun, 2011 [facility] [place] [facility] [address] [id number] [place] [address]- 2360 08 Jun, 2011 [facility] [place] [facility] [address] [id number] [place] [address]- [address] May, [facility] [place] [facility] [address] [id number] [place] [address]- 0155 May, [facility] [place] [facility] [address] [id number] [place] [address] 3131 May, [facility] [place] [facility] [address] [id number] [place] [address] 6160 May, [facility] [place] [facility] [address] [id number] [place] [address]- 9848 May, [facility] [place] [facility] [address] [id number] [place] [address]- 2960 May, [facility] [place] [facility] [address] [id number] [place] [address]- 9564 May, [facility] [place] [facility] [address] [id number] [place] [address]- 0507 Apr, [facility] [place] [facility] [address] [id number] [place] [address]- 7478 Apr, [facility] [place] [facility] [address] [id number] [place] [address]- 9713 Apr, [facility] [place] [facility] [address] [id number] [place] [address]- 8631 Apr, [facility] [place] [facility] [address] [id number] [place] [address]- 7872 13 Apr, 2011 [facility] [address] [id number] [place] [address]- 8342 Apr, [facility] [address] [id number] [place] [address] Apr, [facility] [address] [id number] [place] [address]- 9256 Apr, [facility] [address] [id number] [place] [address]- 8215 Apr, [facility] [address] [id number] [place] [address]- 8418 Apr, [facility] [address] [id number] [place] [address]- 5073 Mar, [facility] [address] [id number] [place] [address]- 2755 Mar, [facility] [address] [id number] [place] [address]- 3447 Feb, [facility] [address] [id number] [place] [address] 1941 Jun, [facility] [address] [id number] [place] [address]- 4800 Apr, [facility] [address] [id number] [place] [address]- 3788 Feb, [facility] [address] [id number] [place] [address]- 3765 Feb, [facility] [address] [id number] [place] [address]- 2182 Feb, [facility] [address] [id number] [place] [address]- 2547 Apr, [facility] [address] [id number] [place] [address]- 4152 Apr, [facility] [address] [facility] [id number], [place] [address] Mar, [facility] [address] [id number], [place] [address] Mar, [facility] [address] [id number], [place] [address] Mar, [facility] [id number], [place] [address] 7983 Feb, [facility] [address] [id number], [place] [address] 8758 Feb, [facility] [id number], [place] [address]- [address] Feb, [facility] [address] [id number], [place] [address] Jan, IMMUNIZATIONS No Known Immunizations SOCIAL HISTORY Never Assessed REASON FOR VISIT refill request PLAN OF CARE VITAL SIGNS MEDICATIONS Medication Instructions Dosage Frequency Start Date End Date Duration Status Warfarin Sodium 6 MG TAKE 1 TABLET EVERY DAY 90 Active Lovastatin 20 mg 1 tablet with a meal 24h Active Clonidine HCl 0.2 MG 1 tablet 12h 90 Active RESULTS No Results PROCEDURES No Known [...]
--- OUTSIDE RECORDS SUMMARY | 2018-04-28 05:11 | XMS REPORT ---
Author Author MARLEY MCGRATH Organization [facility] Address [address] [place] [address] Care Team Providers Care Binder Caser Name Role Phone MARLEY MCGRATH Unavailable PROBLEMS Type Condition ICD9-CM Code AKH78-QV Code Onset Dates Condition Status SNOMED Code Problem Controlled type 2 diabetes mellitus without complication, without long -term current use of insulin E11.9 Active 269664187 Problem Memory loss R41.3 Active 309769142 Problem Chronic major depressive disorder, recurrent episode F33.9 Active 34981647 Problem Mild neurocognitive disorder G31.84 Active 052545814 Problem Anxiety state, unspecified F41.1 Active 781313528 Problem Anxiety F41.9 Active 85162353 Problem Other chronic pain G89.29 Active 32254363 Problem Dementia with behavioral disturbance, unspecified dementia type F03.91 Active 4309376419720 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 Active 351023494 Problem Knee pain, right M25.561 Active 89158260 Problem Diabetes type 2, controlled E11.9 Active 00785559 Problem Hypogonadism in male E29.1 Active 88566894 Problem Hypertriglyceridemia E78.1 Active 816618876 Problem Moderate episode of recurrent major depressive disorder F33.1 Active 400983724 Problem Type 2 diabetes mellitus without complications E11.9 Active 870443673 Problem Chronic fatigue R53.82 Active 97279172 Problem Hammertoe of right foot M20.41 Active 296407608 Problem 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.01 Active 2497276 ALLERGIES No Information ENCOUNTERS Encounter Location Date Diagnosis [facility] [id number] [address] Apr, [facility] [address] [address] 6[address] Apr, [facility] [address] [id number] [address] 2[address] Apr, [place] [id number] [place] [address] 52292- 6864 Mar, Dementia with behavioral disturbance, unspecified dementia type F03.91 [place] [id number] [place] [address] 32004- 2770 Mar, Mild neurocognitive disorder G31.84 and Anxiety state, unspecified F41.1 [place] [id number] [place] [address] 47229- 0413 Mar, jail 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 [place] [id number] [place] [address] 46721- 5317 Mar, Type 2 diabetes mellitus without complications E11.9 and Controlled type 2 diabetes mellitus without complication, without long-term current use of insulin E11.9 [place] [id number] [place] [address] 14255- 7546 Mar, jail (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 Z79.01 [place] [id number] [place] [address] 42590- 4480 Mar, Mild neurocognitive disorder G31.84 and Anxiety state, unspecified F41.1 [place] [id number] [place] [address] 75175- 5762 Mar, Anxiety state, unspecified F41.1 and Other signs and symptoms involving cognition R41.89 [place] [id number] [place] [address] 39746- 4080 Mar, [facility] [id number] [place] [address] 81594- 1190 Feb, Controlled type 2 diabetes mellitus without complication, without long-term current use of insulin E11.9 ; Anxiety F41.9 ; Diabetes type 2 , controlled E11.9 and 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 [place] [id number] [place] [address] 12196- 0067 Feb, [facility] and Type 2 diabetes mellitus without complications E11.9 [facility] [address] [facility] [id number] [address] 2546 29 Jan, 2018 Hypogonadism in male E29.1 [facility] [address] [facility] [id number], [place] [address] 2546 21 Jan, 2018 Medicare welcome exam Z00.00 and Type 2 diabetes mellitus without complications E11.9 [facility] [address] [facility] [id number] [address] 2546 Jan, Hypogonadism in male E29.1 [facility] [address] [facility] [id number] [place] [address] 2546 Jan, [facility] [address] [facility] [id number], [place] [address] 2546 Dec, Hypogonadism in male E29.1 [facility] [id number] [address] 2546 Dec, Medicare welcome exam Z00.00 [facility] [address] [facility] [id number], [place] [address] 2546 Dec, Hypogonadism in male E29.1 [facility] [id number], [place] [address] 2546 Dec, [facility] [id number], [place] [address] 2546 Nov, Hypogonadism in male E29.1 [facility] [id number] [address] 2546 Nov, Type 2 diabetes mellitus without complications E11.9 and History of Coumadin therapy Z92.29 [facility] [address] [facility] [id number], [place] [address] 2546 18 Nov, 2017 Medicare welcome exam Z00.00 [facility] [address] [facility] [id number] [address] 2546 Nov, Type 2 diabetes mellitus without complications E11.9 ; History of Coumadin therapy Z92.29 and Hypogonadism in male E29.1 [facility] [address] [address]- 3264 Nov, [facility] [address] [address]- 3666 Oct, [facility] [address], [place] [address]- 2410 Oct, Diabetes type 2, controlled E11.9 [facility] [address] [address]- 0738 Oct, Medicare welcome exam Z00.00 [facility] [id number] [place] [address] 15214- 2377 Oct, Hypogonadism in male E29.1 [facility] [address] [address] Oct, [facility] [id number] [place] [address] 04702- 9822 September, Hypogonadism in male E29.1 [facility] [address] [place] [address] 07275- 5429 September, Medicare welcome exam Z00.00 [facility] [address] [address]- 1434 September, Hypogonadism in male E29.1 [facility] [address], [place] [address]- 6339 Aug, Other chronic pain G89.29 ; Memory loss R41.3 ; Controlled type 2 diabetes mellitus without complication, without long-term current use of insulin E11.9 and Chronic major depressive disorder, recurrent episode F33.9 [facility] [address] [address]- 7570 Aug, Medicare welcome exam Z00.00 [facility] [address] [address]- 9757 Aug, [facility] [address], [place] [address] Aug, Hypogonadism in male E29.1 [facility] [id number] [place] [address] 30247- 5622 Jul, [facility] [id number] [place] [address] 63864- 7076 Jul, Hypogonadism in male E29.1 [facility] [id number] [place] [address] 78517- 2291 Jul, [facility] [id number] [place] [address] 48902 -7321 Jul, Hypogonadism in male E29.1 [facility] [id number] [place] [address] 33371- 8963 Jul, Medicare welcome exam Z00.00 [facility] [id number] [place] [address] 24388- 5323 Jun, Medicare welcome exam Z00.00 [facility] [id number] [place] [address] 54509 -5950 Jun, Fever R50.9 and Influenza B J10.1 [facility] [id number] [place] [address] 54199- 2482 Jun, Hypogonadism in male E29.1 [facility] [id number] [place] [address] 79792- 4077 Jun, Diabetes type 2, controlled E11.9 [facility] [id number] [place] [address] 44424- 1583 May, Hypogonadism in male E29.1 [facility] [id number] [place] [address] 87408- 4278 May, jail (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 Z79.01 [facility] [id number] [place] [address] 52633- 4766 Apr, Hypogonadism in male E29.1 [facility] [address] [address]- 5209 Apr, [facility] [id number] [place] [address] 795034- 5413 Apr, Medicare welcome exam Z00.00 and keno terminal 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.01 [place] [id number] [place] [address] 29200- 8497 Apr, Hypogonadism in male E29.1 [place] [id number] [place] [address] 566718- 4914 Mar, Diabetes type 2, controlled E11.9 [place] [id number] [place] [address] 55375- 4680 Mar, Hypogonadism in male E29.1 [place] [id number] [place] [address] 09882- 0591 Mar, Hypogonadism in male E29.1 [place] [id number] [place] [address] 24649- 2460 Feb, Hypogonadism in male E29.1 [place] [id number] [place] [address] 08785- 5991 Feb, Malaise R53.81 [place] [id number] [place] [address] 27888- 8589 Feb, [facility] [facility] [id number] [address]- 4419 Feb, Diabetes type 2, controlled E11.9 [place] [id number] [place] [address] 45756- 1183 Feb, Chronic fatigue R53.82 ; Malaise R53.81 and Moderate episode of recurrent major depressive disorder F33.1 [place] [id number] [place] [address] 22264- 3796 Jan, Diabetes type 2, controlled E11.9 [place] [id number] [place] [address] 39122- 3991 Jan, 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.01 and keno terminal 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.01 [place] [id number] [place] [address] 39636- 4773 Dec, Diabetes type 2, controlled E11.9 and Hypertriglyceridemia E78.1 [place] [id number] [place] [address] 45134- 0331 Dec, Diabetes type 2, controlled E11.9 [place] [id number] [place] [address] 69758- 5494 Dec, High risk medication use Z79.899 and jail (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 Z79.01 [place] [id number] [place] [address] 92392- 5564 Dec, High risk medication use Z79.899 [place] [id number] [place] [address] 38003- 1514 Nov, Diabetes type 2, controlled E11.9 [place] [id number] [place] [address] 44880- 6429 Oct, Diabetes type 2, controlled E11.9 [place] [id number] [place] [address] 61933- 1093 September, Diabetes type 2, controlled E11.9 [place] [id number] [place] [address] 65515- 7266 Aug, keno terminal 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.01 [place] [id number] [place] [address] 83064- 2243 Aug, Hematoma of arm, right, initial encounter S40.021A and keno terminal 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.01 [place] [address] [place] [address] 79185- 6621 Aug, [facility] [id number] [place] [address] 19775 -6338 18 Aug, 2016 Cellulitis of right upper extremity L03.113 [place] [address] 22064- 7292 14 Aug, 2016 Diabetes type 2, controlled E11.9 [place] [address] 47619- 1775 Aug, Hammertoe of right foot M20.41 ; Hallux abducto valgus, left M20.12 and Onychomycosis B35.1 [place] [address] 49823- 6177 Aug, keno terminal 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.01 [place] [address] 54066- 4832 Aug, jail (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 Z79.01 [place] [address] 38680- 8840 Aug, jail (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 Z79.01 [facility] [address] 08548 -5260 Aug, Right shoulder pain M25.511 and Closed nondisplaced fracture of acromial end of right clavicle, initial encounter S42.034A [place] [id number] [place] [address] 97484- 1028 Jul, Diabetes type 2, controlled E11.9 [place] [id number] [place] [address] 44862- 9618 Jun, Diabetes type 2, controlled E11.9 and keno terminal 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.01 [place] [id number] [place] [address] 98067- 6872 May, [place] [id number] [place] [address] 92461- 6591 Apr, [facility] [address] [address]- 3940 Mar, [facility] [address] [place] [address]- 7477 Feb, [facility] [address] [place] [address]- 0256 Dec, Diabetes type 2, controlled E11.9 [facility] [address], [place] [address]- 4059 Dec, [facility] [address] [place] [address]- 1760 Nov, [facility] [address] [address]- 0748 Nov, Type 2 diabetes mellitus without complications E11.9 [facility] [address], [place] [address]- 3193 Oct, Type 2 diabetes mellitus without complications E11.9 [facility] [address], [place] [address]- 0064 Aug, [facility] [address] [address]- 6131 Aug, Type 2 diabetes mellitus without complications E11.9 [facility] [address], [place] [address]- 1923 Jun, Type 2 diabetes mellitus without complications E11.9 and 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 intermediate use of antiplatelet drug Z79.02 [facility] [address] [address]- 9764 May, [facility] [address] [address]- 5208 May, Diabetes type 2, controlled E11.9 [facility] [id number] [address]- 6639 Apr, Diabetes type 2, controlled E11.9 [facility] [address] [address]- 6333 Mar, Diabetes type 2, controlled E11.9 ; Knee pain, right M25.561 ; Other chronic pain G89.29 and Medication monitoring encounter Z51.81 [facility] [address] [address]- 7356 Feb, Type 2 diabetes mellitus without complications E11.9 ; High risk medication use Z79.899 and Anxiety F41.9 [facility] [id number] [place] [address] 08914- 8437 Jan, Diabetes 250.00 [facility] [id number] [place] [address] 75067- 7706 Dec, Diabetes 250.00 [facility] [id number] [place] [address] 14146- 2546 Nov, Diabetes 250.00 [facility] [id number] [place] [address] 47486- 6127 Nov, [facility] [id number] [place] [address] 15576- 8547 Oct, Diabetes mellitus type 1 250.01 and High risk medication use V58.69 [facility] [address] [address]- 8621 Oct, [facility] [address], [place] [address]- 0193 September, [facility] [id number] [address]- 4649 Aug, [facility] [address] [address]- 6309 Aug, [facility] [address], [place] [address]- 9805 Jul, [facility] [address] [address]- 0248 Jul, [facility] [address] [place] [address]- 6662 Jun, [facility] [place] [facility] [address] [id number] [place] [address]- 1950 Jun, [facility] [place] [facility] [address] [id number] [place] [address]- 5116 Jun, [facility] [place] [facility] [address] [id number] [place] [address]- 9142 May, [facility] [place] [facility] [address] [id number] [place] [address]- 1763 May, [facility] [place] [facility] [address] [id number] [place] 8598 Apr, [facility] [place] [facility] [address] [id number] [place] [address]- 0403 Apr, [facility] [place] [facility] [address] [id number] [place] [address]- 2910 Apr, [facility] [place] [facility] [address] [id number] [place] [address]- 4167 Apr, [facility] [place] [facility] [address] [id number] [place] [address]- 2751 Apr, [facility] [place] [facility] [address] [facility] [id number] [place] [address]- 2573 Apr, [facility] [place] [facility] [address] [id number] [place] [address]- 5459 Feb, [facility] [place] [facility] [address] [id number] [place] [address]- 2588 Feb, [facility] [place] [facility] [address] [id number] [place] [address]- 8337 Feb, [facility] [place] [facility] [address] [id number] [place] [address]- 6096 Feb, [facility] [place] [facility] [address] [id number] [place] [address]- 4706 Dec, [facility] [place] [facility] [address] [id number] [place] [address]- 6709 Dec, [facility] [place] [facility] [address] [id number] [place] [address]- 8205 Nov, [facility] [place] [facility] [address] [id number] [place] [address]- 0780 Nov, [facility] [place] [facility] [address] [id number] [place] [address]- 9368 Oct, [facility] [place] [facility] [address] [id number] [place] [address]- 2461 Oct, [facility] [place] [facility] [address] [id number] [place] [address]- 9903 Oct, [facility] [place] [facility] [address] [id number] [place] [address]- 2446 Oct, [facility] [place] [facility] [address] [id number] [place] [address]- 8086 Oct, [facility] [place] [facility] [address] [id number] [place] [address]- 0743 Oct, [facility] [place] [facility] [address] [id number] [place] [address]- 7802 September, [facility] [place] [facility] [address] [id number] [place] [address]- 1593 September, [facility] [place] [facility] [address] [id number] [place] [address]- 8119 September, [facility] [place] [facility] [address] [id number] [place] [address]- 7208 September, [facility] [place] [facility] [address] [id number] [place] [address]- 9697 September, [facility] [place] [facility] [address] [id number] [place] [address]- 6691 September, [facility] [place] [facility] [address] [id number] [place] [address]- 2137 Aug, [facility] [place] [facility] [address] [id number] [place] [address]- 9214 Aug, [facility] [place] [facility] [address] [id number] [place] [address] Aug, [facility] [place] [facility] [address] [id number] [place] [address]- 5959 Aug, [facility] [place] [facility] [address] [id number] [place] [address]- 0537 Aug, [facility] [place] [facility] [address] [id number] [place] [address]- 5750 Aug, [facility] [place] [facility] [address] [id number] [place] [address]- 7172 Jul, [facility] [place] [facility] [address] [id number] [place] [address]- 3584 Jul, [facility] [place] [facility] [address] [id number] [place] [address]- 8282 Jul, [facility] [place] [facility] [address] [id number] [place] [address]- 04[address] Jul, [facility] [place] [facility] [address] [id number] [place] [address] May, [facility] [place] [facility] [address] [id number] [place] [address] May, [facility] [place] [facility] [address] [id number] [place] [address] Apr, [facility] [place] [facility] [address] [id number] [place] [address] Apr, [facility] [place] [facility] [address] [id number] [place] [address] Apr, [facility] [place] [facility] [address] [id number] [place] [address] Apr, [facility] [place] [facility] [address] [id number] [place] [address] Apr, [facility] [place] [facility] [address] [id number] [place] [address] Apr, [facility] [place] [facility] [address] [id number] [place] [address] Feb, [facility] [place] [facility] [address] [id number] [place] [address] Feb, [facility] [place] [facility] [address] [id number] [place] [address] Feb, [facility] [place] [facility] [address] [id number] [place] [address] Feb, [facility] [place] [facility] [address] [id number] [place] [address] Feb, [facility] [place] [facility] [address] [id number] [place] [address] Feb, [facility] [place] [facility] [address] [id number] [place] [address] Feb, [facility] [place] [facility] [address] [id number] [place] [address] Feb, [facility] [place] [facility] [address] [id number] [place] [address] Jan, [facility] [place] [facility] [address] [id number] [address] Jan, [facility] [place] [facility] [address] [id number] [place] [address] Jan, [facility] [place] [facility] [address] [id number] [place] [address] Jan, [facility] [place] [facility] [address] [id number] [place] [address] Dec, [facility] [place] [facility] [address] [id number] [place] [address] Dec, [facility] [address] [id number] [place] [address] Dec, [facility] [place] [facility] [address] [id number] [place] [address] Nov, [facility] [place] [facility] [address] [id number] [place] [address] Nov, [facility] [place] [facility] [address] [id number] [place] [address] Oct, [facility] [place] [facility] [address] [id number] [place] [address] September, [facility] [place] [facility] [address] [id number] [place] [address] September, [facility] [place] [facility] [address] [id number] [place] [address] September, [facility] [place] [facility] [address] [id number] [place] [address] Aug, [facility] [place] [facility] [address] [id number] [place] [address] Aug, [facility] [place] [facility] [address] [id number] [place] [address] Aug, [facility] [place] [facility] [address] [id number] [place] [address] Jul, [facility] [place] [facility] [address] [id number] [place] [address] Jul, [facility] [facility] [address] [id number] [place] [address] Jun, [facility] [place] [facility] [address] [id number] [place] [address] Jun, [facility] [place] [facility] [address] [id number] [place] [address] Jun, [facility] [place] [facility] [address] [id number] [place] [address]46 06 Jun, 2012 [facility] [place] [facility] [address] [id number] [place] [address] May, [facility] [place] [facility] [address] [id number] [place] [address] May, [facility] [place] [facility] [address] [id number] [place] [address] Apr, [facility] [place] [facility] [address] [id number] [place] [address] Apr, [facility] [place] [facility] [address] [id number] [place] [address] Apr, [facility] [address] [id number] [place] [address] Apr, [facility] [place] [facility] [address] [id number] [place] [address] Apr, [facility] [address] [id number] [place] [address] Apr, [facility] [facility] [address] [id number] [place] [address] Mar, [facility] [address] [facility] [id number] [place] [address] Mar, [facility] [address] [id number] [place] [address] Mar, [facility] [place] [facility] [address] [id number] [place] [address] Mar, [facility] [place] [facility] [address] [id number] [place] [address] 77[address] Mar, [facility] [address] [id number] [place] [address] Mar, [facility] [facility] [address] [id number] [place] [address] Feb, [facility] [facility] [address] [id number] [place] [address] Feb, [facility] [facility] [address] [id number] [place] [address]- [address] Feb, [facility] [address] [id number] [place] [address] 95[address] Feb, [facility] [address] [id number] [place] [address] Feb, [facility] [facility] [address] [id number] [place] [address] Jan, [facility] [address] [id number] [place] [address] 89[address] Jan, [facility] [address] [id number] [place] [address] 9[address] Jan, [facility] [address] [id number] [place] [address] Dec, [facility] [address] [id number] [place] [address] Dec, [facility] [address] [id number], [place] [address] Nov, [facility] [address] [id number] [address] Oct, [facility] [address] [id number], [place] [address] Oct, [facility] [address] [id number] [place] [address] 140[address] Oct, [facility] [address] [id number], [place] [address] Oct, [facility] [address] [facility] [id number] [place] [address] 1273 Oct, [facility] [address] [id number] [place] [address] 269[address] 16 Sep, 2011 [facility] [address] [id number] [place] [address] 18 Aug, 2011 [facility] [address] [id number] [place] [address] 18 Aug, 2011 [facility] [address] [id number] [place] [address] 1506 17 Aug, 2011 [facility] [address] [id number] [place] [address]- [address]294 16 Aug, 2011 [facility] [address] [id number] [place] [address] 13 Aug, 2011 [facility] [address] [id number] [place] [address] Aug, [facility] [address] [id number] [place] [address]101 11 Aug, 2011 [facility] [address] [id number] [place] [address]- [address] 05 Aug, 2011 [facility] [address] [id number] [place] [address]- [address]274 05 Aug, 2011 [facility] [address] [id number] [place] [address] Jul, [facility] [address] [id number] [place] [address] Jul, [facility] [address] [id number] [place] [address] 7537 Jul, [facility] [address] [id number] [place] [address]- 3736 17 Jul, 2011 [facility] [address] [id number] [place] [address]- 1386 08 Jul, 2011 [facility] [address] [id number] [place] [address]- 1227 15 Jun, 2011 [facility] [address] [id number] [place] [address]- 6535 14 Jun, 2011 [facility] [address] [id number] [place] [address]- [address] 08 Jun, 2011 [facility] [address] [id number] [place] [address]- [address]271 08 Jun, 2011 [facility] [address] [id number] [place] [address]- [address]782 May, [facility] [address] [id number] [place] [address]- 0733 May, [facility] [address] [id number] [place] [address] May, [facility] [address] [id number] [place] [address] May, [facility] [address] [id number] [place] [address]- [address] May, [facility] [address] [id number] [place] [address]- 9466 May, [facility] [address] [id number] [place] [address] 1614 May, [facility] [address] [id number] [place] [address]- 8734 Apr, [facility] [address] [id number], [place] [address] Apr, [facility] [address] [id number] [place] [address]- 5519 Apr, [facility] [address] [id number] [place] [address]- 9504 Apr, [facility] [address] [id number], [place] [address] 7969 13 Apr, 2011 [facility] [address] [id number], [place] [address]- [address]21 Apr, [facility] [address] [id number] [place] [address]- 280[address] Apr, [facility] [address] [id number] [place] [address] Apr, [facility] [address] [facility] [id number] [place] [address]- 0516 Apr, [facility] [address] [id number] [place] [address]- 7054 Apr, [facility] [address] [id number] [place] [address]- 2[address] Mar, [facility] [address] [facility] [id number] [place] [address] 1901 Mar, [facility] [address] [facility] [id number] [place] [address]- 6200 Feb, [facility] [address] [id number] [place] [address]- 1679 Jun, [facility] [address] [facility] [id number] [place] [address]- 6779 Apr, [facility] [address] [facility] [id number] [place] [address]- 7028 Feb, [facility] [address] [facility] [id number], [place] [address]- 5733 Feb, [facility] [address] [facility] [id number], [place] [address]- 6143 Feb, [facility] [address] [id number] [address] Apr, [facility] [address] [facility] [id number] [place] [address] Apr, [facility] [address] [facility] [id number], [place] [address]- 4636 Mar, [facility] [address] [facility] [id number], [place] [address]- 1075 Mar, [facility] [address] [id number], [place] [address]- [address] Mar, [facility] [address] [id number], [place] [address]- 0480 Feb, [facility] [address] [id number], [place] [address]- 8554 Feb, [facility]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
--- OUTSIDE RECORDS SUMMARY | 2018-04-28 05:12 | XMS REPORT ---
Author Author MARLEY MCGRATH Organization [facility] Address [address] [place] [address] Care Team Providers Care Egg Crater Name Role Phone MARLEY MCGRATH Unavailable PROBLEMS Type Condition ICD9-CM Code [id number] Code Onset Dates Condition Status SNOMED Code Problem Controlled type 2 diabetes mellitus without complication, without long -term current use of insulin E11.9 Active 706916700 Problem Memory loss R41.3 Active 610448097 Problem Chronic major depressive disorder, recurrent episode F33.9 Active 56266101 Problem Mild neurocognitive disorder G31.84 Active 989568909 Problem Anxiety state, unspecified F41.1 Active 500732158 Problem Anxiety F41.9 Active 98172062 Problem Other chronic pain G89.29 Active 72705325 Problem Dementia with behavioral disturbance, unspecified dementia type F03.91 Active [id number] Problem 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 Active 631182496 Problem Knee pain, right M25.561 Active 78577644 Problem Diabetes type 2, controlled E11.9 Active 68340587 Problem Hypogonadism in male E29.1 Active 70645069 Problem Hypertriglyceridemia E78.1 Active 865518457 Problem Moderate episode of recurrent major depressive disorder F33.1 Active 032543492 Problem Type 2 diabetes mellitus without complications E11.9 Active 865405792 Problem Chronic fatigue R53.82 Active 63626025 Problem Hammertoe of right foot M20.41 Active 418834481 Problem 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.01 Active 8288751 ALLERGIES No Information ENCOUNTERS Encounter Location Date Diagnosis [facility] [id number] [address] Apr, [facility] [address], [place] [address] Apr, [facility] [address] [id number], [place] [address] 9[address] Apr, [place] [id number] [place] [address] 87389- 6925 Mar, Dementia with behavioral disturbance, unspecified dementia type F03.91 [place] [id number] [place] [address] 55690- 0809 Mar, Mild neurocognitive disorder G31.84 and Anxiety state, unspecified F41.1 [place] [id number] [place] [address] 21146- 5961 Mar, group home 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 [place] [id number] [place] [address] 50714- 5412 Mar, Type 2 diabetes mellitus without complications E11.9 and Controlled type 2 diabetes mellitus without complication, without long-term current use of insulin E11.9 [place] [id number] [place] [address] 26750- 1538 Mar, group home (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 Z79.01 [place] [id number] [place] [address] 48048- 1867 Mar, Mild neurocognitive disorder G31.84 and Anxiety state, unspecified F41.1 [place] [id number] [place] [address] 71846- 9968 Mar, Anxiety state, unspecified F41.1 and Other signs and symptoms involving cognition R41.89 [place] [id number] [place] [address] 97933- 5558 Mar, [place] [id number] [place] [address] 36689- 7646 Feb, Controlled type 2 diabetes mellitus without complication, without long-term current use of insulin E11.9 ; Anxiety F41.9 ; Diabetes type 2 , controlled E11.9 and 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 [place] [id number] [place] [address] 39050- 4826 Feb, [facility] and Type 2 diabetes mellitus without complications E11.9 [facility] [address] [facility] [id number] [address] 2546 29 Jan, 2018 Hypogonadism in male E29.1 [facility] [address] [facility] [id number], [place] [address] 2546 21 Jan, 2018 Medicare welcome exam Z00.00 and Type 2 diabetes mellitus without complications E11.9 [facility] [address] [facility] [id number], [place] [address] 2546 Jan, Hypogonadism in male E29.1 [facility] [address] [facility] [id number] [place] [address] 2546 Jan, [facility] [address] [facility] [id number] [address] 2546 Dec, Hypogonadism in male E29.1 [facility] [id number], [place] [address] 2546 Dec, Medicare welcome exam Z00.00 [facility] [address] [facility] [id number], [place] [address] 2546 Dec, Hypogonadism in male E29.1 [facility] [id number], [place] [address] 2546 Dec, [facility] [id number], [place] [address] 2546 Nov, Hypogonadism in male E29.1 [facility] [id number], [place] [address] 2546 Nov, Type 2 diabetes mellitus without complications E11.9 and History of Coumadin therapy Z92.29 [facility] [address] [facility] [id number], [place] [address] 2546 18 Nov, 2017 Medicare welcome exam Z00.00 [facility] [address] [facility] [id number], [place] [address] 2546 Nov, Type 2 diabetes mellitus without complications E11.9 ; History of Coumadin therapy Z92.29 and Hypogonadism in male E29.1 [facility] [address], [place] [address] Nov, [facility] [address], [place] [address] 0219 Oct, [facility] [address], [place] [address]- 1281 Oct, Diabetes type 2, controlled E11.9 [facility] [address], [place] [address] 1982 Oct, Medicare welcome exam Z00.00 [facility] [id number] [place] [address] 80943- 1713 Oct, Hypogonadism in male E29.1 [facility] [address], [place] [address] Oct, [facility] [id number] [place] [address] 92097- 0750 September, Hypogonadism in male E29.1 [facility] [id number] [place] [address] 82509- 0198 September, Medicare welcome exam Z00.00 [facility] [address], [place] [address]- 3280 September, Hypogonadism in male E29.1 [facility] [address], [place] [address]- 6746 Aug, Other chronic pain G89.29 ; Memory loss R41.3 ; Controlled type 2 diabetes mellitus without complication, without long-term current use of insulin E11.9 and Chronic major depressive disorder, recurrent episode F33.9 [facility] [address], [place] [address]- 9873 Aug, Medicare welcome exam Z00.00 [facility] [address], [place] [address]- 7262 Aug, [facility] [address], [place] [address] Aug, Hypogonadism in male E29.1 [facility] [id number] [place] [address] 42214- 8123 Jul, [facility] [id number] [place] [address] 29000- 4329 Jul, Hypogonadism in male E29.1 [facility] [id number] [place] [address] 78499- 5740 Jul, [facility] [id number] [place] [address] 63745 -6538 Jul, Hypogonadism in male E29.1 [facility] [id number] [place] [address] 57161- 6728 Jul, Medicare welcome exam Z00.00 [facility] [id number] [place] [address] 63998- 0400 Jun, Medicare welcome exam Z00.00 [facility] [id number] [place] [address] 07680 -3509 Jun, Fever R50.9 and Influenza B J10.1 [facility] [id number] [place] [address] 57676- 9131 Jun, Hypogonadism in male E29.1 [facility] [id number] [place] [address] 08737- 3466 Jun, Diabetes type 2, controlled E11.9 [facility] [id number] [place] [address] 84041- 1358 May, Hypogonadism in male E29.1 [facility] [id number] [place] [address] 47644- 6566 May, group home (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 Z79.01 [facility] [id number] [place] [address] 70993- 4498 Apr, Hypogonadism in male E29.1 [facility] [address], [place] [address]- 7013 Apr, [place] [id number] [place] [address] 188254- 1736 Apr, Medicare welcome exam Z00.00 and bed bug 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 Z79.01 [place] [id number] [place] [address] 38538- 2869 Apr, Hypogonadism in male E29.1 [place] [id number] [place] [address] 243356- 0315 Mar, Diabetes type 2, controlled E11.9 [place] [id number] [place] [address] 93267- 0623 Mar, Hypogonadism in male E29.1 [place] [id number] [place] [address] 84107- 8951 Mar, Hypogonadism in male E29.1 [place] [id number] [place] [address] 33414- 2559 Feb, Hypogonadism in male E29.1 [place] [id number] [place] [address] 95995- 0980 Feb, Malaise R53.81 [place] [id number] [place] [address] 55441- 7692 Feb, [place] [id number] [address]- 5691 Feb, Diabetes type 2, controlled E11.9 [place] [id number] [place] [address] 74416- 8597 Feb, Chronic fatigue R53.82 ; Malaise R53.81 and Moderate episode of recurrent major depressive disorder F33.1 [place] [id number] [place] [address] 50309- 7401 Jan, Diabetes type 2, controlled E11.9 [place] [id number] [place] [address] 34912- 8177 Jan, 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.01 and bed bug 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 Z79.01 [place] [id number] [place] [address] 98758- 9618 Dec, Diabetes type 2, controlled E11.9 and Hypertriglyceridemia E78.1 [place] [id number] [place] [address] 32342- 3627 Dec, Diabetes type 2, controlled E11.9 [place] [id number] [place] [address] 59736- 5807 Dec, High risk medication use Z79.899 and group home (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 Z79.01 [place] [id number] [place] [address] 62304- 9008 Dec, High risk medication use Z79.899 [place] [id number] [place] [address] 84128- 7001 Nov, Diabetes type 2, controlled E11.9 [place] [id number] [place] [address] 18832- 3694 Oct, Diabetes type 2, controlled E11.9 [place] [id number] [place] [address] 39980- 1361 September, Diabetes type 2, controlled E11.9 [place] [id number] [place] [address] 07114- 1995 Aug, bed bug 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 Z79.01 [place] [id number] [place] [address] 19165- 2159 Aug, Hematoma of arm, right, initial encounter S40.021A and bed bug 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 Z79.01 [place] [id number] [place] [address] 23051- 8389 Aug, [facility] [id number] [place] [address] 39781 -8495 18 Aug, 2016 Cellulitis of right upper extremity L03.113 [place] [address] 67967- 0223 14 Aug, 2016 Diabetes type 2, controlled E11.9 [place] [address] 64541- 7608 Aug, Hammertoe of right foot M20.41 ; Hallux abducto valgus, left M20.12 and Onychomycosis B35.1 [address] [address] 80501- 4862 Aug, bed bug 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 Z79.01 [place] [address] 55840- 4737 Aug, group home (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 Z79.01 [place] [address] 00913- 7970 Aug, group home (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 Z79.01 [facility] [address] 44762 -2210 Aug, Right shoulder pain M25.511 and Closed nondisplaced fracture of acromial end of right clavicle, initial encounter S42.034A [place] [id number] [place] [address] 63388- 8304 Jul, Diabetes type 2, controlled E11.9 [place] [id number] [place] [address] 97304- 1076 Jun, Diabetes type 2, controlled E11.9 and bed bug 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 Z79.01 [place] [id number] [place] [address] 38435- 1331 May, [place] [id number] [place] [address] 67431- 2428 Apr, [facility] [address], [place] [address]- 0861 Mar, [facility] [id number] [place] [address]- 5299 Feb, [facility] [id number] [place] [address]- 0587 Dec, Diabetes type 2, controlled E11.9 [facility] [address] [address]- 3536 Dec, [facility] [id number] [place] [address]- 6113 Nov, [facility] [address] [address]- 2878 Nov, Type 2 diabetes mellitus without complications E11.9 [facility] [address], [place] [address]- 9319 Oct, Type 2 diabetes mellitus without complications E11.9 [facility] [address] [address]- 3988 Aug, [facility] [address] [address]- 6488 Aug, Type 2 diabetes mellitus without complications E11.9 [facility] [address], [place] [address]- 7270 Jun, Type 2 diabetes mellitus without complications E11.9 and 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 retirement use of antiplatelet drug Z79.02 [facility] [address], [place] [address]- 8249 May, [facility] [address], [place] [address]- 5823 May, Diabetes type 2, controlled E11.9 [facility] [id number], [place] [address]- 8917 Apr, Diabetes type 2, controlled E11.9 [facility] [id number] [address]- 1996 Mar, Diabetes type 2, controlled E11.9 ; Knee pain, right M25.561 ; Other chronic pain G89.29 and Medication monitoring encounter Z51.81 [facility] [id number] [address]- 2036 Feb, Type 2 diabetes mellitus without complications E11.9 ; High risk medication use Z79.899 and Anxiety F41.9 [facility] [id number] [place] [address] 38929- 8350 Jan, Diabetes 250.00 [facility] [id number] [place] [address] 75797- 3346 Dec, Diabetes 250.00 [facility] [id number] [place] [address] 67879- 2546 Nov, Diabetes 250.00 [facility] [id number] [place] [address] 04186- 5037 Nov, [facility] [id number] [place] [address] 27028- 7751 Oct, Diabetes mellitus type 1 250.01 and High risk medication use V58.69 [facility] [address], [place] [address]- 2236 Oct, [facility] [address], [place] [address]- 3014 September, [facility] [id number], [place] [address]- 0957 Aug, [facility] [address], [place] [address]- 5562 Aug, [facility] [address], [place] [address]- 7751 Jul, [facility] [address], [place] [address]- 1769 Jul, [facility] [id number] [address]- 3824 Jun, [facility] [place] [facility] [address] [id number] [place] [address]- 4781 Jun, [facility] [place] [facility] [address] [id number] [place] [address]- 2736 Jun, [facility] [place] [facility] [address] [id number] [place] [address]- 9015 May, [facility] [place] [facility] [address] [id number] [place] [address]- 5449 May, [facility] [place] [facility] [address] [id number] [place] 8453 Apr, [facility] [place] [facility] [address] [id number] [place] [address]- 9697 Apr, [facility] [place] [facility] [address] [id number] [place] [address]- 6579 Apr, [facility] [place] [facility] [address] [id number] [place] [address]- 1958 Apr, [facility] [place] [facility] [address] [id number] [place] [address]- 0986 Apr, [facility] [place] [facility] [address] [facility] [id number] [place] [address]- 1548 Apr, [facility] [place] [facility] [address] [id number] [place] [address]- 8145 Feb, [facility] [place] [facility] [address] [id number] [place] [address]- 5916 Feb, [facility] [place] [facility] [address] [id number] [place] [address]- 3269 Feb, [facility] [place] [facility] [address] [id number] [place] [address]- 6216 Feb, [facility] [place] [facility] [address] [id number] [place] [address]- 7062 Dec, [facility] [place] [facility] [address] [id number] [place] [address]- 9148 Dec, [facility] [place] [facility] [address] [id number] [place] [address]- 8045 Nov, [facility] [place] [facility] [address] [id number] [place] [address]- 5612 Nov, [facility] [place] [facility] [address] [id number] [place] [address]- 3974 Oct, [facility] [place] [facility] [address] [id number] [place] [address]- 3901 Oct, [facility] [place] [facility] [address] [id number] [place] [address]- 5491 Oct, [facility] [place] [facility] [address] [id number] [place] [address]- 0242 Oct, [facility] [place] [facility] [address] [id number] [place] [address]- 2950 Oct, [facility] [place] [facility] [address] [id number] [place] [address]- 1751 Oct, [facility] [place] [facility] [address] [id number] [place] [address]- 7714 September, [facility] [place] [facility] [address] [id number] [place] [address]- 7355 September, [facility] [place] [facility] [address] [id number] [place] [address]- 8206 September, [facility] [place] [facility] [address] [id number] [place] [address]- 8344 September, [facility] [place] [facility] [address] [id number] [place] [address]- 2443 September, [facility] [place] [facility] [address] [id number] [place] [address]- 9504 September, [facility] [place] [facility] [address] [id number] [place] [address]- 7939 Aug, [facility] [place] [facility] [address] [id number] [place] [address]- 6912 Aug, [facility] [place] [facility] [address] [id number] [place] 5206 Aug, [facility] [place] [facility] [address] [id number] [place] [address]- 0315 Aug, [facility] [place] [facility] [address] [id number] [place] [address]- 7786 Aug, [facility] [place] [facility] [address] [id number] [place] [address]- 2524 Aug, [facility] [place] [facility] [address] [id number] [place] [address]- 3936 Jul, [facility] [place] [facility] [address] [id number] [place] [address]- 2548 Jul, [facility] [place] [facility] [address] [id number] [place] [address]- 2411 Jul, [facility] [place] [facility] [address] [id number] [place] [address]- 3968 Jul, [facility] [place] [facility] [address] [id number] [place] [address]- 7658 May, [facility] [place] [facility] [address] [id number] [place] [address]- 9095 May, [facility] [place] [facility] [address] [id number] [place] [address]- 4721 Apr, [facility] [place] [facility] [address] [id number] [place] [address]- 2287 Apr, [facility] [place] [facility] [address] [id number] [place] [address]- 8823 Apr, [facility] [place] [facility] [address] [id number] [place] [address]- 5729 Apr, [facility] [place] [facility] [address] [id number] [place] [address]- 9483 Apr, [facility] [place] [facility] [address] [id number] [place] [address]- 8484 Apr, [facility] [place] [facility] [address] [id number] [place] [address] Feb, [facility] [place] [facility] [address] [id number] [place] [address] Feb, [facility] [place] [facility] [address] [id number] [place] [address] Feb, [facility] [place] [facility] [address] [id number] [place] [address] Feb, [facility] [place] [facility] [address] [id number] [place] [address] Feb, [facility] [place] [facility] [address] [id number] [place] [address] Feb, [facility] [place] [facility] [address] [id number] [place] [address] Feb, [facility] [place] [facility] [address] [id number] [place] [address] Feb, [facility] [place] [facility] [address] [id number] [place] [address] Jan, [facility] [place] [facility] [address] [id number] [address] Jan, [facility] [place] [facility] [address] [id number] [place] [address] Jan, [facility] [place] [facility] [address] [id number] [place] [address] Jan, [facility] [place] [facility] [address] [id number] [place] [address] Dec, [facility] [place] [facility] [address] [id number] [place] [address] Dec, [facility] [address] [id number] [place] [address] Dec, [facility] [place] [facility] [address] [id number] [place] [address] Nov, [facility] [place] [facility] [address] [id number] [place] [address] Nov, [facility] [place] [facility] [address] [id number] [place] [address] Oct, [facility] [place] [facility] [address] [id number] [place] [address] September, [facility] [place] [facility] [address] [id number] [place] [address] September, [facility] [place] [facility] [address] [id number] [place] [address] September, [facility] [place] [facility] [address] [id number] [place] [address] Aug, [facility] [place] [facility] [address] [id number] [place] [address] Aug, [facility] [place] [facility] [address] [id number] [place] [address] Aug, [facility] [place] [facility] [address] [id number] [place] [address] Jul, [facility] [place] [facility] [address] [id number] [place] [address] Jul, [facility] [place] [facility] [address] [id number] [place] [address] Jun, [facility] [place] [facility] [address] [id number] [place] [address] Jun, [facility] [place] [facility] [address] [id number] [place] [address] Jun, [facility] [place] [facility] [address] [id number] [place] [address] 06 Jun, 2012 [facility] [place] [facility] [address] [id number] [place] [address] May, [facility] [place] [facility] [address] [id number] [place] [address] May, [facility] [place] [facility] [address] [id number] [place] [address] Apr, [facility] [place] [facility] [address] [id number] [place] [address] Apr, [facility] [place] [facility] [address] [id number] [place] [address] Apr, [facility] [place] [facility] [address] [id number] [place] [address] Apr, [facility] [place] [facility] [address] [id number] [place] [address] Apr, [facility] [place] [facility] [address] [id number] [place] [address] Apr, [facility] [place] [facility] [address] [id number] [place] [address] Mar, [facility] [place] [facility] [address] [facility] [id number] [place] [address] Mar, [facility] [place] [facility] [address] [id number] [place] [address] Mar, [facility] [place] [facility] [address] [id number] [place] [address] 24[address] Mar, [facility] [place] [facility] [address] [id number] [place] [address] Mar, [facility] [place] [facility] [address] [id number] [place] [address] 9706 Mar, [facility] [place] [facility] [address] [id number] [place] [address]- [address] Feb, [facility] [place] [facility] [address] [id number] [place] [address]- [address] Feb, [facility] [place] [facility] [address] [id number] [place] [address]- [address] Feb, [facility] [place] [facility] [address] [id number] [place] [address] 42[address] Feb, [facility] [place] [facility] [address] [id number] [place] [address] Feb, [facility] [place] [facility] [address] [id number] [place] [address]- 94[address] Jan, [facility] [place] [facility] [address] [id number] [place] [address]- [address] Jan, [facility] [place] [facility] [address] [id number] [place] [address] Jan, [facility] [place] [facility] [address] [id number] [place] [address]- [address] Dec, [facility] [place] [facility] [address] [id number] [place] [address]- 488[address] Dec, [facility] [place] [facility] [address] [id number], [place] [address] Nov, [facility] [place] [facility] [address] [id number], [place] [address] Oct, [facility] [place] [facility] [address] [id number], [place] [address] Oct, [facility] [place] [facility] [address] [id number] [place] [address] Oct, [facility] [place] [facility] [address] [id number], [place] [address] Oct, [facility] [place] [facility] [address] [facility] [id number] [place] [address] 6993 Oct, [facility] [place] [facility] [address] [id number] [place] [address]18 16 Sep, 2011 [facility] [address] [id number] [place] [address] 18 Aug, 2011 [facility] [place] [facility] [address] [id number] [place] [address] 18 Aug, 2011 [facility] [place] [facility] [address] [id number] [place] [address] 6996 17 Aug, 2011 [facility] [place] [facility] [address] [id number] [place] [address]- 1620 16 Aug, 2011 [facility] [place] [facility] [address] [id number] [place] [address]- [address] 13 Aug, 2011 [facility] [place] [facility] [address] [id number] [place] [address]- 6105 Aug, [facility] [address] [id number] [place] [address]- 9890 11 Aug, 2011 [facility] [place] [facility] [address] [id number] [place] [address]- [address]48 05 Aug, 2011 [facility] [place] [facility] [address] [id number] [place] [address]- [address]37 05 Aug, 2011 [facility] [place] [facility] [address] [id number] [place] [address]- 58[address] Jul, [facility] [place] [facility] [address] [id number] [place] [address]- 0824 Jul, [facility] [place] [facility] [address] [id number] [place] [address]- 6151 Jul, [facility] [place] [facility] [address] [id number] [place] [address]- 9301 17 Jul, 2011 [facility] [place] [facility] [address] [id number] [place] [address]- 8958 08 Jul, 2011 [facility] [place] [facility] [address] [id number] [place] [address]- 8670 15 Jun, 2011 [facility] [place] [facility] [address] [id number] [place] [address]- 7063 14 Jun, 2011 [facility] [place] [facility] [address] [id number] [place] [address]- [address] 08 Jun, 2011 [facility] [place] [facility] [address] [id number] [place] [address]- 3[address] 08 Jun, 2011 [facility] [place] [facility] [address] [id number] [place] [address]- 1249 May, [facility] [address] [id number] [place] [address] 0156 May, [facility] [place] [facility] [address] [id number] [place] [address]- 0271 May, [facility] [place] [facility] [address] [id number] [place] [address]- 3513 May, [facility] [address] [id number] [place] [address]- 4191 May, [facility] [place] [facility] [address] [id number] [place] [address]- 6981 May, [facility] [address] [id number] [place] [address] 8827 May, [facility] [place] [facility] [address] [id number] [place] [address] 3972 Apr, [facility] [place] [facility] [address] [id number], [place] [address] Apr, [facility] [place] [facility] [address] [id number] [place] [address]- 5992 Apr, [facility] [place] [facility] [address] [id number] [place] [address]- 6895 Apr, [facility] [place] [facility] [address] [id number], [place] [address] 6310 13 Apr, 2011 [facility] [place] [facility] [address] [id number], [place] [address] Apr, [facility] [address] [id number] [place] [address]- 1588 Apr, [facility] [place] [facility] [address] [id number] [place] [address] Apr, [facility] [place] [facility] [address] [facility] [id number] [place] [address]- 2486 Apr, [facility] [place] [facility] [address] [id number] [place] [address]- 4452 Apr, [facility] [place] [facility] [address] [id number] [place] [address]- 6876 Mar, [facility] [place] [facility] [address] [facility] [id number] [place] [address]- 0633 Mar, [facility] [address] [facility] [id number] [place] [address]- 2349 Feb, [facility] [place] [facility] [address] [id number] [place] [address]- 9077 Jun, [facility] [place] [facility] [address] [facility] [id number] [place] [address]- 0287 Apr, [facility] [place] [facility] [address] [facility] [id number] [place] [address]- 4069 Feb, [facility] [place] [facility] [address] [facility] [id number], [place] [address]- 9830 Feb, [facility] [place] [facility] [address] [facility] [id number], [place] [address]- 4428 Feb, [facility] [place] [facility] [address] [id number][place] [address] Apr, [facility] [place] [facility] [address] [facility] [id number] [place] [address] Apr, [facility] [place] [facility] [address] [facility] [id number], [place] [address]- 3083 Mar, [facility] [place] [facility] [address] [facility] [id number], [place] [address] 2546 Mar, [facility] [address] [id number], [place] [address] Mar, [facility] [id number], [place] [address] Feb, [facility] [address] [id number], [place] [address] 1348 Feb, [facility] [id number], [place] [address] Feb, [facility] [address] [id number], [place] [address] Jan, IMMUNIZATIONS No Known Immunizations SOCIAL HISTORY Never Assessed REASON FOR VISIT Medication question PLAN OF CARE VITAL SIGNS MEDICATIONS Unknown [...]
--- OUTSIDE RECORDS SUMMARY | 2018-04-28 05:12 | XMS REPORT ---
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 Name Role Phone RADHA OWENS Unavailable PROBLEMS Type Condition ICD9-CM Code PFQ30-CT Code Onset Dates Condition Status SNOMED Code Problem Controlled type 2 diabetes mellitus without complication, without long -term current use of insulin E11.9 Active 980872799 Problem Memory loss R41.3 Active 508591744 Problem Chronic major depressive disorder, recurrent episode F33.9 Active 86722503 Problem Mild neurocognitive disorder G31.84 Active 995444480 Problem Anxiety state, unspecified F41.1 Active 894111267 Problem Anxiety F41.9 Active 13006953 Problem Other chronic pain G89.29 Active 31075912 Problem Dementia with behavioral disturbance, unspecified dementia type F03.91 Active [id number] 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 Active 610157615 Problem Knee pain, right M25.561 Active 62346996 Problem Diabetes type 2, controlled E11.9 Active 73220456 Problem Hypogonadism in male E29.1 Active 85711818 Problem Hypertriglyceridemia E78.1 Active 684791468 Problem Moderate episode of recurrent major depressive disorder F33.1 Active 990386057 Problem Type 2 diabetes mellitus without complications E11.9 Active 498141007 Problem Chronic fatigue R53.82 Active 81561759 Problem Hammertoe of right foot M20.41 Active 740283399 Problem 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.01 Active 3188410 ALLERGIES No Information ENCOUNTERS Encounter Location Date Diagnosis [facility] [id number] [address] Apr, [facility] [id number], [place] [address] Mar, Dementia with behavioral disturbance, unspecified dementia type F03.91 [facility] [id number] [place] [address] 81169- 5487 Mar, Mild neurocognitive disorder G31.84 and Anxiety state, unspecified F41.1 [facility] [id number] [place] [address] 44573- 7355 Mar, 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 [facility] [id number] [place] [address] 00855- 6952 Mar, Type 2 diabetes mellitus without complications E11.9 and Controlled type 2 diabetes mellitus without complication, without long-term current use of insulin E11.9 [facility] [id number] [place] [address] 59431- 4816 Mar, long-term (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 Z79.01 [facility] [id number] [place] [address] 31513- 2423 Mar, Mild neurocognitive disorder G31.84 and Anxiety state, unspecified F41.1 [facility] [id number] [place] [address] 92403- 2492 Mar, Anxiety state, unspecified F41.1 and Other signs and symptoms involving cognition R41.89 [facility] [id number] [place] [address] 64376- 8148 Mar, [facility] [id number] [place] [address] 06541- 3314 Feb, Controlled type 2 diabetes mellitus without complication, without long-term current use of insulin E11.9 ; Anxiety F41.9 ; Diabetes type 2 , controlled E11.9 and long-term 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 [facility] [id number] [place] [address] 05343- 7205 Feb, Medicare welcome exam Z00.00 and Type 2 diabetes mellitus without complications E11.9 [facility]ALK IN [facility] [id number] [place] [address] 87763 -5129 Jan, Hypogonadism in male E29.1 [facility] [id number] [place] [address] 21802 2546 Jan, Medicare welcome exam Z00.00 and Type 2 diabetes mellitus without complications E11.9 [facility] [address] [facility] [id number] [place] [address] 2546 11 Jan, 2018 Hypogonadism in male E29.1 [facility] [address] [facility] [id number] [place] [address] 2546 Jan, [facility] [address] [facility] [id number] [address] 2546 Dec, Hypogonadism in male E29.1 [facility] [address] [facility] [id number] [address] 2656 Dec, Medicare welcome exam Z00.00 [facility] [id number] [address] 6710 Dec, Hypogonadism in male E29.1 [facility] [id number] [address] 7835 Dec, [facility] [id number] [address]- 7512 Nov, Hypogonadism in male E29.1 [facility] [id number] [address] 4925 Nov, Type 2 diabetes mellitus without complications E11.9 and History of Coumadin therapy Z92.29 [facility] [address] [facility] [id number], [place] [address] 4506 Nov, Medicare welcome exam Z00.00 [facility] [address] [facility] [id number], [place] [address] 2546 Nov, Type 2 diabetes mellitus without complications E11.9 ; History of Coumadin therapy Z92.29 and Hypogonadism in male E29.1 [facility] [address] [facility] [id number], [place] [address] 6676 Nov, [facility] [address] [id number] [address] 3373 Oct, [facility] [address], [place] [address] 8788 Oct, Diabetes type 2, controlled E11.9 [facility] [address], [place] [address] 7033 15 Oct, 2017 Medicare welcome exam Z00.00 [facility] [address], [place] [address] 3578 Oct, Hypogonadism in male E29.1 [facility] [address], [place] [address] Oct, [facility] [id number] [place] [address] 46729- 7184 September, Hypogonadism in male E29.1 [facility] [id number] [place] [address] 91651- 8527 September, Medicare welcome exam Z00.00 [facility] [address], [place] [address]- 1667 September, Hypogonadism in male E29.1 [facility] [address] [place] [address] 85216- 8392 Aug, Other chronic pain G89.29 ; Memory loss R41.3 ; Controlled type 2 diabetes mellitus without complication, without long-term current use of insulin E11.9 and Chronic major depressive disorder, recurrent episode F33.9 [facility] [address], [place] [address]- 2526 Aug, Medicare welcome exam Z00.00 [facility] [address], [place] [address] 2067 Aug, [facility] [address], [place] [address] Aug, Hypogonadism in male E29.1 [facility] [address] [address]- 8186 Jul, [facility] [address] [address]- 1211 Jul, Hypogonadism in male E29.1 [facility] [id number] [place] [address] 33845- 9464 26 Jul, 2017 [facility] [id number] [place] [address] 57112 -6869 Jul, Hypogonadism in male E29.1 [facility] [id number] [place] [address] 12897- 9677 09 Jul, 2017 Medicare welcome exam Z00.00 [facility] [id number] [place] [address] 99964- 5037 22 Jun, 2017 Medicare welcome exam Z00.00 [facility] [id number] [place] [address] 27655 -1146 19 Jun, 2017 Fever R50.9 and Influenza B J10.1 [facility] [id number] [place] [address] 06742- 4762 Jun, Hypogonadism in male E29.1 [facility] [id number] [place] [address] 03819- 7029 Jun, Diabetes type 2, controlled E11.9 [facility] [id number] [place] [address] 07715- 5750 May, Hypogonadism in male E29.1 [facility] [id number] [place] [address] 24530- 6569 May, termite treater (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 Z79.01 [facility] [id number] [place] [address] 51879- 5864 Apr, Hypogonadism in male E29.1 [facility] [id number] [place] [address] 14935- 7078 Apr, [facility] [address] [place] [address]- 5844 08 Apr, 2017 Medicare welcome exam Z00.00 and long-term (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 Z79.01 [facility] [id number] [place] [address] 53327- 0856 Apr, Hypogonadism in male E29.1 [facility] [id number] [place] [address] 86522- 5814 Mar, Diabetes type 2, controlled E11.9 [facility] [id number] [place] [address] 67820- 1812 Mar, Hypogonadism in male E29.1 [facility] [id number] [place] [address] 60392- 8900 Mar, Hypogonadism in male E29.1 [facility] [id number] [place] [address] 80034- 7128 Feb, Hypogonadism in male E29.1 [facility] [id number] [place] [address] 24102- 4073 Feb, Malaise R53.81 [facility] [id number] [place] [address] 17800- 0155 Feb, [facility] [id number] [place] [address] 13826- 5368 Feb, Diabetes type 2, controlled E11.9 [facility] [id number] [place] [address] 00681- 8098 Feb, Chronic fatigue R53.82 ; Malaise R53.81 and Moderate episode of recurrent major depressive disorder F33.1 [facility] [id number] [place] [address] 42220- 3270 Jan, Diabetes type 2, controlled E11.9 [facility] [address], [place] [address]- 5574 Jan, 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.01 and termite treater (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 Z79.01 [facility] [address] [place] [address] 00616- 0107 Dec, Diabetes type 2, controlled E11.9 and Hypertriglyceridemia E78.1 [facility] [id number] [place] [address] 02744- 5464 Dec, Diabetes type 2, controlled E11.9 [facility] [id number] [place] [address] 37247- 4273 Dec, High risk medication use Z79.899 and long-term (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 Z79.01 [facility] [id number] [place] [address] 59652- 8276 Dec, High risk medication use Z79.899 [facility] [id number] [place] [address] 32589- 8834 Nov, Diabetes type 2, controlled E11.9 [facility] [id number] [place] [address] 72224- 9708 Oct, Diabetes type 2, controlled E11.9 [facility] [id number] [place] [address] 32608- 9250 September, Diabetes type 2, controlled E11.9 [facility] [id number] [place] [address] 27142- 5716 Aug, termite treater (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 Z79.01 [facility] [id number] [place] [address] 77231- 9423 Aug, Hematoma of arm, right, initial encounter S40.021A and termite treater (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 Z79.01 [facility] [id number] [place] [address] 88711- 0672 Aug, [facility] [id number] [place] [address] 61273 -7935 Aug, Cellulitis of right upper extremity L03.113 [facility] [address] 99244- 0692 14 Aug, 2016 Diabetes type 2, controlled E11.9 [facility] [address] [place] [address] 47459- 8509 Aug, Hammertoe of right foot M20.41 ; Hallux abducto valgus, left M20.12 and Onychomycosis B35.1 [facility] [address] 23101- 0527 Aug, long-term (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 Z79.01 [facility] [address] 46220- 3948 Aug, termite treater (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 Z79.01 [facility] [address] 34552- 1339 Aug, long-term (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 Z79.01 [facility] [address] 31530 -1037 Aug, Right shoulder pain M25.511 and Closed nondisplaced fracture of acromial end of right clavicle, initial encounter S42.034A [facility] [address] 50565- 6397 Jul, Diabetes type 2, controlled E11.9 [facility] [address] [place] [address] 34392- 5223 Jun, Diabetes type 2, controlled E11.9 and long-term (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 Z79.01 [facility] [address] [place] [address] 80119- 3179 May, [facility] [address] 07779- 3915 Apr, [facility] [id number] [place] [address] 09765- 8132 Mar, [facility] [address] 74182- 4690 Feb, [facility] [address], [place] [address]- 5915 Dec, Diabetes type 2, controlled E11.9 [facility] [address], [place] [address]- 6090 Dec, [facility] [address], [place] [address]- 3838 Nov, [facility] [address] [address]- 9646 Nov, Type 2 diabetes mellitus without complications E11.9 [facility] [address], [place] [address]- 0023 Oct, Type 2 diabetes mellitus without complications E11.9 [facility] [address], [place] [address]- 2177 Aug, [facility] [address] [address]- 7822 Aug, Type 2 diabetes mellitus without complications E11.9 [facility] [address], [place] [address]- 2552 Jun, Type 2 diabetes mellitus without complications E11.9 and 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 [facility] [address], [place] [address]- 3322 May, [facility] [address] [address]- 7698 May, Diabetes type 2, controlled E11.9 [facility] [address], [place] [address]- 8084 Apr, Diabetes type 2, controlled E11.9 [facility] [address], [place] [address]- 3430 Mar, Diabetes type 2, controlled E11.9 ; Knee pain, right M25.561 ; Other chronic pain G89.29 and Medication monitoring encounter Z51.81 [facility] [address], [place] [address]- 0584 Feb, Type 2 diabetes mellitus without complications E11.9 ; High risk medication use Z79.899 and Anxiety F41.9 [facility] [address], [place] [address]- 9566 Jan, Diabetes 250.00 [facility] [id number] [place] [address] 95109 2546 Dec, Diabetes 250.00 [facility] [id number] [place] [address] 08119 2546 Nov, Diabetes 250.00 [facility] [id number] [place] [address] 80661- 5056 Nov, [facility] [id number] [place] [address] 71913- 4603 Oct, Diabetes mellitus type 1 250.01 and High risk medication use V58.69 [facility] [address] [address]- 1029 Oct, [facility] [id number] [place] [address] 52391- 4150 September, [facility] [address], [place] [address]- 9992 Aug, [facility] [address], [place] [address]- 4573 Aug, [facility] [address], [place] [address]- 3553 Jul, [facility] [address] [place] [address] 22995- 5746 Jul, [facility] [address], [place] [address]- 0976 Jun, [facility] [address], [place] [address]- 6366 Jun, [facility] [place] [facility] [address] [id number] [place] [address]- 4558 Jun, [facility] [place] [facility] [address] [id number] [place] [address]- 1220 May, [facility] [place] [facility] [address] [id number] [place] [address]- 5457 May, [facility] [place] [facility] [address] [id number] [place] [address]- 3033 Apr, [facility] [place] [facility] [address] [id number] [place] [address]- 2636 Apr, [facility] [place] [facility] [address] [id number] [place] [address]- 6254 Apr, [facility] [place] [facility] [address] [id number] [place] [address]- 2516 Apr, [facility] [place] [facility] [address] [id number] [place] [address]- 7567 Apr, [facility] [place] [facility] [address] [id number] [place] [address]- 3522 Apr, [facility] [place] [facility] [address] [id number] [place] [address]- 2936 Feb, [facility] [place] [facility] [address] [id number] [place] [address]- 4714 Feb, [facility] [place] [facility] [address] [id number] [place] [address]- 6106 Feb, [facility] [place] [facility] [address] [id number] [place] [address]- 8096 Feb, [facility] [place] [facility] [address] [id number] [place] 5853 Dec, [facility] [place] [facility] [address] [id number] [place] [address]- 8773 Dec, [facility] [place] [facility] [address] [id number] [place] [address]- 6396 Nov, [facility] [place] [facility] [address] [id number] [place] [address]- 8449 Nov, [facility] [place] [facility] [address] [id number] [place] [address]- 9077 Oct, [facility] [place] [facility] [address] [id number] [place] [address]- 2938 Oct, [facility] [place] [facility] [address] [id number] [place] [address]- 6421 Oct, [facility] [place] [facility] [address] [id number] [place] [address]- 7947 Oct, [facility] [place] [facility] [address] [id number] [place] [address]- 6020 Oct, [facility] [place] [facility] [address] [id number] [place] [address]- 7345 Oct, [facility] [place] [facility] [address] [id number] [place] [address]- 2386 September, [facility] [place] [facility] [address] [id number] [place] [address]- 1039 September, [facility] [place] [facility] [address] [id number] [place] [address]- 0911 September, [facility] [place] [facility] [address] [id number] [place] [address]- 8231 September, [facility] [place] [facility] [address] [id number] [address]- 3076 September, [facility] [place] [facility] [address] [id number] [place] [address]- 7322 September, [facility] [place] [facility] [address] [id number] [place] [address]- 8453 Aug, [facility] [place] [facility] [address] [id number] [place] [address]- 6121 Aug, [facility] [place] [facility] [address] [id number] [place] [address]- 0982 Aug, [facility] [place] [facility] [address] [id number] [place] [address]- 2306 Aug, [facility] [place] [facility] [address] [id number] [place] [address]- 3586 Aug, [facility] [place] [facility] [address] [id number] [place] [address]- 6919 Aug, [facility] [place] [facility] [address] [id number] [place] [address]- 2886 Jul, [facility] [place] [facility] [address] [id number] [place] [address]- 9798 Jul, [facility] [place] [facility] [address] [id number] [place] [address]- 5246 Jul, [facility] [place] [facility] [address] [id number] [place] [address]- 9884 Jul, [facility] [place] [facility] [address] [id number] [place] [address]- 5306 May, [facility] [place] [facility] [address] [id number] [place] [address]- 7495 May, [facility] [place] [facility] [address] [facility] [id number] [place] [address]- 3125 Apr, [facility] [place] [facility] [address] [id number] [place] [address]- 3807 Apr, [facility] [place] [facility] [address] [id number] [place] [address]- 2525 Apr, [facility] [place] [facility] [address] [id number] [place] [address]- 4282 Apr, [facility] [place] [facility] [address] [id number] [place] [address]- 9844 Apr, [facility] [place] [facility] [address] [id number] [place] [address]- 6942 Apr, [facility] [place] [facility] [address] [id number] [place] [address]- 6507 Feb, [facility] [place] [facility] [address] [id number] [place] [address]- 5454 Feb, [facility] [place] [facility] [address] [id number] [place] [address]- 7661 Feb, [facility] [place] [facility] [address] [id number] [place] [address]- 2902 Feb, [facility] [address] [id number] [place] [address] Feb, [facility] [place] [facility] [address] [id number] [place] [address] Feb, [facility] [address] [id number] [place] [address] Feb, [facility] [address] [id number] [place] [address] Feb, [facility] [place] [facility] [address] [id number] [place] [address] Jan, [facility] [place] [facility] [address] [id number] [place] [address] Jan, [facility] [place] [facility] [address] [id number] [place] [address] Jan, [facility] [place] [facility] [address] [id number], [place] [address] Jan, [facility] [place] [facility] [address] [id number] [place] [address] Dec, [facility] [place] [facility] [address] [id number] [place] [address] Dec, [facility] [place] [facility] [address] [id number], [place] [address] Dec, [facility] [address] [id number], [place] [address] Nov, [facility] [address] [id number] [place] [address] Nov, [facility] [address] [id number] [place] [address] Oct, [facility] [address] [id number] [place] [address] September, [facility] [address] [id number] [place] [address] September, [facility] [address] [id number] [place] [address] September, [facility] [address] [id number] [place] [address] Aug, [facility] [address] [id number] [place] [address] 16 Aug, 2012 [facility] [address] [id number] [place] [address] 15 Aug, 2012 [facility] [address] [id number] [place] [address] Jul, [facility] [address] [id number] [place] [address] Jul, [facility] [address] [id number] [place] [address] Jun, [facility] [place] [facility] [address] [id number] [place] [address] Jun, [facility] [address] [id number] [place] [address] Jun, [facility] [address] [id number] [place] [address] Jun, [facility] [address] [id number] [place] [address] May, [facility] [facility] [address] [id number] [place] [address] May, [facility] [address] [id number] [place] [address] Apr, [facility] [address] [id number] [place] [address] Apr, [facility] [place] [facility] [address] [id number] [place] [address] Apr, [facility] [place] [facility] [address] [id number] [place] [address] Apr, [facility] [place] [facility] [address] [id number] [place] [address] Apr, [facility] [place] [facility] [address] [id number] [place] [address] Apr, [facility] [place] [facility] [address] [id number] [place] [address] Mar, [facility] [place] [facility] [address] [id number] [place] [address] Mar, [facility] [place] [facility] [address] [id number] [place] [address] Mar, [facility] [place] [facility] [address] [id number] [place] [address] Mar, [facility] [place] [facility] [address] [id number] [place] [address] Mar, [facility] [place] [facility] [address] [id number] [place] [address] Mar, [facility] [place] [facility] [address] [id number] [place] [address] Feb, [facility] [place] [facility] [address] [id number] [place] [address] Feb, [facility] [place] [facility] [address] [id number] [place] [address] Feb, [facility] [place] [facility] [address] [id number] [place] [address] Feb, [facility] [place] [facility] [address] [id number] [place] [address] Feb, [facility] [place] [facility] [address] [id number] [place] [address] Jan, [facility] [place] [facility] [address] [id number] [place] [address] Jan, [facility] [place] [facility] [address] [id number] [place] [address] 2548 Jan, [facility] [place] [facility] [address] [id number] [place] [address] Dec, [facility] [place] [facility] [address] [id number] [place] [address] Dec, [facility] [place] [facility] [address] [id number], [place] [address] Nov, [facility] [place] [facility] [address] [id number] [place] [address] Oct, [facility] [place] [facility] [address] [id number] [place] [address] Oct, [facility] [place] [facility] [address] [id number][place] [address] Oct, [facility] [place] [facility] [address] [id number], [place] [address] Oct, [facility] [place] [facility] [address] [id number] [place] [address] Oct, [facility] [place] [facility] [address] [facility] [id number][place] [address] September, [facility] [place] [facility] [address] [id number] [place] [address] Aug, [facility] [place] [facility] [address] [id number] [place] [address] 18 Aug, 2011 [facility] [place] [facility] [address] [id number] [place] [address]- [address] 17 Aug, 2011 [facility] [place] [facility] [address] [id number] [place] [address]- [address]296 16 Aug, 2011 [facility] [place] [facility] [address] [id number] [place] [address] 13 Aug, 2011 [facility] [place] [facility] [address] [id number] [place] [address] 2546 11 Aug, 2011 [facility] [place] [facility] [address] [id number] [place] [address] 11 Aug, 2011 [facility] [place] [facility] [address] [id number] [place] [address]- 9926 05 Aug, 2011 [facility] [place] [facility] [address] [id number] [place] [address]- [address]37 05 Aug, 2011 [facility] [place] [facility] [address] [id number] [place] [address] 20 Jul, 2011 [facility] [place] [facility] [address] [id number] [place] [address] 20 Jul, 2011 [facility] [place] [facility] [address] [facility] [id number] [place] [address]- [address]85 20 Jul, 2011 [facility] [place] [facility] [address] [id number] [place] [address]- 0166 17 Jul, 2011 [facility] [place] [facility] [address] [id number] [place] [address] 08 Jul, 2011 [facility] [place] [facility] [address] [id number] [place] [address]126 15 Jun, 2011 [facility] [place] [facility] [address] [id number] [place] [address]- [address]236 14 Jun, 2011 [facility] [place] [facility] [address] [id number] [place] [address]- 1342 08 Jun, 2011 [facility] [address] [id number] [place] [address]- [address]457 08 Jun, 2011 [facility] [place] [facility] [address] [id number] [place] [address] 1376 May, [facility] [place] [facility] [address] [id number] [place] [address] 39[address] May, [facility] [place] [facility] [address] [id number] [place] [address] May, [facility] [address] [id number] [place] [address]- [address]474 May, [facility] [place] [facility] [address] [id number] [place] [address]- 5066 May, [facility] [place] [facility] [address] [id number] [place] [address] 58[address] May, [facility] [address] [id number] [place] [address]- [address]234 May, [facility] [place] [facility] [address] [id number] [place] [address] Apr, [facility] [place] [facility] [address] [id number] [place] [address]- [address] Apr, [facility] [place] [facility] [address] [id number] [place] [address]- [address] 13 Apr, 2011 [facility] [place] [facility] [address] [id number] [place] [address]- 1576 13 Apr, 2011 [facility] [place] [facility] [address] [id number] [place] [address]- 7[address] 13 Apr, 2011 [facility] [place] [facility] [address] [id number] [place] [address]- 8506 13 Apr, 2011 [facility] [place] [facility] [address] [id number] [place] [address]- [address]406 13 Apr, 2011 [facility] [place] [facility] [address] [id number] [place] [address]- 65[address] Apr, [facility] [place] [facility] [address] [id number] [place] [address]- 4077 Apr, [facility] [place] [facility] [address] [id number] [place] [address]- 9486 Apr, [facility] [place] [facility] [address] [id number] [place] [address] Mar, [facility] [place] [facility] [address] [id number] [place] [address]- 8607 Mar, [facility] [place] [facility] [address] [id number] [place] [address]- 6083 Feb, [facility] [place] [facility] [address] [id number] [place] [address]- 2496 Jun, [facility] [place] [facility] [address] [id number] [place] [address]- 0479 Apr, [facility] [place] [facility] [address] [id number] [place] [address]- 1304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
--- OUTSIDE RECORDS SUMMARY | 2018-04-28 05:13 | XMS REPORT ---
Author Author MARLEY MCGRATH Organization [facility] Address [address] [place] [address] Care Team Providers Care Production Posting Clerk Name Role Phone MARLEY MCGRATH Unavailable PROBLEMS Type Condition ICD9-CM Code RJR20-NQ Code Onset Dates Condition Status SNOMED Code Problem 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.01 Active 6689167 Problem Memory loss R41.3 Active 394973416 Problem Controlled type 2 diabetes mellitus without complication, without long -term current use of insulin E11.9 Active 062080399 Problem Mild neurocognitive disorder G31.84 Active 744125622 Problem Anxiety state, unspecified F41.1 Active 863471767 Problem Other chronic pain G89.29 Active 06758992 Problem Chronic major depressive disorder, recurrent episode F33.9 Active 87459258 Problem 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 Active 869298723 Problem Anxiety F41.9 Active 29533979 Problem Hypogonadism in male E29.1 Active 51138040 Problem Knee pain, right M25.561 Active 36095499 Problem Hammertoe of right foot M20.41 Active 195421542 Problem Hypertriglyceridemia E78.1 Active 285548537 Problem Diabetes type 2, controlled E11.9 Active 10914269 Problem Moderate episode of recurrent major depressive disorder F33.1 Active 926468874 Problem Type 2 diabetes mellitus without complications E11.9 Active 833275933 Problem Chronic fatigue R53.82 Active [id number] ALLERGIES No Information ENCOUNTERS Encounter Location Date Diagnosis [facility] [id number] [address] Mar, [facility] [address], [place] [address] Mar, [facility] [id number], [place] [address] Mar, 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 [facility] [address], [place] [address] Mar, Type 2 diabetes mellitus without complications E11.9 and Controlled type 2 diabetes mellitus without complication, without long-term current use of insulin E11.9 [facility] [address], [place] [address] 16 Mar, 2018 snf (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 Z79.01 [place] [id number] [place] [address]- 3454 Mar, Mild neurocognitive disorder G31.84 and Anxiety state, unspecified F41.1 [place] [id number] [place] [address] 46291- 2747 Mar, Anxiety state, unspecified F41.1 and Other signs and symptoms involving cognition R41.89 [place] [id number] [place] [address] 11742- 5231 Mar, [place] [id number] [place] [address] 99650- 3125 Feb, Controlled type 2 diabetes mellitus without complication, without long-term current use of insulin E11.9 ; Anxiety F41.9 ; Diabetes type 2 , controlled E11.9 and snf 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 [place] [id number] [place] [address] 47083- 1162 Feb, Medicare welcome exam Z00.00 and Type 2 diabetes mellitus without complications E11.9 [facility] [id number] [place] [address] 36415 -5155 Jan, Hypogonadism in male E29.1 [facility] [id number] [place] [address] 59933- 5540 Jan, Medicare welcome exam Z00.00 and Type 2 diabetes mellitus without complications E11.9 [facility] [address], [place] [address] 7[address] Jan, Hypogonadism in male E29.1 [place] [id number] [address] Jan, [facility] [address] [facility] [id number] [place] [address] Dec, Hypogonadism in male E29.1 [facility] [address] [facility] [id number] [place] [address]- 8556 Dec, Medicare welcome exam Z00.00 [facility] [address] [facility] [id number] [place] [address] 2546 Dec, Hypogonadism in male E29.1 [facility] [address] [facility] [id number] [place] [address]- 9826 Dec, [facility] [address] [facility] [id number] [place] [address]- 1606 Nov, Hypogonadism in male E29.1 [facility] [address] [address]- 0926 Nov, Type 2 diabetes mellitus without complications E11.9 and History of Coumadin therapy Z92.29 [facility] [id number] [address]- 8276 Nov, Medicare welcome exam Z00.00 [facility] [id number], [place] [address] 3772 Nov, Type 2 diabetes mellitus without complications E11.9 ; History of Coumadin therapy Z92.29 and Hypogonadism in male E29.1 [facility] [id number] [address]- 5806 Nov, [facility] [id number] [address]- 4606 Oct, [facility] [address] [facility] [id number] [address] 2546 Oct, Diabetes type 2, controlled E11.9 [facility] [id number], [place] [address]- 4363 Oct, Medicare welcome exam Z00.00 [facility] [address], [place] [address] 4[address] 11 Oct, 2017 Hypogonadism in male E29.1 [facility] [address], [place] [address] 09 Oct, 2017 [facility] [address], [place] [address] 5986 September, Hypogonadism in male E29.1 [facility] [address], [place] [address]- 4245 September, Medicare welcome exam Z00.00 [facility] [address] [place] [address] 06109- 5141 September, Hypogonadism in male E29.1 [facility] [address], [place] [address]- 3785 Aug, Other chronic pain G89.29 ; Memory loss R41.3 ; Controlled type 2 diabetes mellitus without complication, without long-term current use of insulin E11.9 and Chronic major depressive disorder, recurrent episode F33.9 [facility] [address], [place] [address] 5074 Aug, Medicare welcome exam Z00.00 [facility] [address], [place] [address]- 5281 Aug, [facility] [address], [place] [address] Aug, Hypogonadism in male E29.1 [facility] [address], [place] [address]- 4477 Jul, [facility] [id number] [address] 1824 Jul, Hypogonadism in male E29.1 [facility] [address], [place] [address]- 3420 Jul, [facility] [address], [place] [address] Jul, Hypogonadism in male E29.1 [facility] [id number], [place] [address]- 6438 09 Jul, 2017 Medicare welcome exam Z00.00 [facility] [address], [place] [address]- 2246 Jun, Medicare welcome exam Z00.00 [facility] [id number], [place] [address] Jun, Fever R50.9 and Influenza B J10.1 [facility] [id number] [place] [address] 88649- 6958 Jun, Hypogonadism in male E29.1 [facility] [id number] [place] [address] 66085- 6683 Jun, Diabetes type 2, controlled E11.9 [facility] [id number] [place] [address] 51191- 4722 May, Hypogonadism in male E29.1 [facility] [id number] [place] [address] 33273- 9017 May, snf (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 Z79.01 [facility] [address], [place] [address]- 0225 Apr, Hypogonadism in male E29.1 [facility] [id number], [place] [address]- 6674 Apr, [facility] [id number] [place] [address] 45055- 6537 Apr, Medicare welcome exam Z00.00 and 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 [facility] [address], [place] [address]- 0476 Apr, Hypogonadism in male E29.1 [place] [address], [place] [address]- 5687 Mar, Diabetes type 2, controlled E11.9 [place] [id number], [place] [address]- 6326 Mar, Hypogonadism in male E29.1 [place] [id number], [place] [address]- 0002 Mar, Hypogonadism in male E29.1 [place] [id number] [place] [address] 81330- 1554 Feb, Hypogonadism in male E29.1 [place] [id number] [place] [address] 84137- 5591 Feb, Malaise R53.81 [place] [id number] [place] [address] 69526- 6106 Feb, [place] [id number] [place] [address] 85537- 8057 Feb, Diabetes type 2, controlled E11.9 [place] [id number] [place] [address] 34665- 8222 Feb, Chronic fatigue R53.82 ; Malaise R53.81 and Moderate episode of recurrent major depressive disorder F33.1 [place] [address], [place] [address]- 1658 Jan, Diabetes type 2, controlled E11.9 [place] [id number] [place] [address] 81382- 5913 Jan, 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.01 and snf (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 Z79.01 [place] [id number] [place] [address] 25609- 1506 Dec, Diabetes type 2, controlled E11.9 and Hypertriglyceridemia E78.1 [place] [id number], [place] [address]- 4635 Dec, Diabetes type 2, controlled E11.9 [facility] [address], [place] [address]- 8272 Dec, High risk medication use Z79.899 and 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 [facility] [address], [place] [address]- 3411 Dec, High risk medication use Z79.899 [place] [id number] [place] [address] 66762- 4970 Nov, Diabetes type 2, controlled E11.9 [place] [id number] [place] [address] 63305- 8143 Oct, Diabetes type 2, controlled E11.9 [place] [id number] [place] [address] 55827- 6510 September, Diabetes type 2, controlled E11.[address] [place] [address] [id number] [place] [address] 22991- 2379 Aug, 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 [place] [id number] [place] [address] 80866- 9131 Aug, Hematoma of arm, right, initial encounter S40.021A and 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 [place] [address], [place] [address]- 6761 Aug, [facility] [id number] [place] [address] 50534 -4251 Aug, Cellulitis of right upper extremity L03.113 [place] [id number] [place] [address] 98004- 8941 14 Aug, 2016 Diabetes type 2, controlled E11.9 [place] [address] [place] [address] 99817- 7772 Aug, Hammertoe of right foot M20.41 ; Hallux abducto valgus, left M20.12 and Onychomycosis B35.1 [facility] [id number], [place] [address]- 8720 Aug, snf (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 Z79.01 [facility] [id number] [place] [address] 29477 2546 Aug, 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 [facility] [id number] [place] [address] 06968- 7547 Aug, snf (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 Z79.01 [facility] [address] [place] [address] 01725 -1905 Aug, Right shoulder pain M25.511 and Closed nondisplaced fracture of acromial end of right clavicle, initial encounter S42.034A [place] [id number] [place] [address] 35889- 0703 Jul, Diabetes type 2, controlled E11.9 [place] [id number] [place] [address] 92795- 8587 Jun, Diabetes type 2, controlled E11.9 and snf (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 Z79.01 [facility] [id number] [place] [address] 74207- 4845 May, [facility] [id number] [place] [address] 47277- 5059 Apr, [facility] [id number] [place] [address] 37374- 2560 Mar, [facility] [id number] [place] [address] 27860- 8031 Feb, [facility] [id number] [place] [address] 58656- 5058 Dec, Diabetes type 2, controlled E11.9 [facility] [address], [place] [address]- 2546 Dec, [facility] [id number] [place] [address]- 3141 Nov, [place] [id number] [place] [address] 72095- 0390 Nov, Type 2 diabetes mellitus without complications E11.9 [place] [id number] [place] [address] 79867- 6556 Oct, Type 2 diabetes mellitus without complications E11.9 [place] [id number] [place] [address] 11334- 6489 Aug, [place] [id number] [place] [address] 59510- 8623 Aug, Type 2 diabetes mellitus without complications E11.9 [place] [id number] [place] [address] 38544- 3979 Jun, Type 2 diabetes mellitus without complications E11.9 and 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 assisted use of antiplatelet drug Z79.02 [place] [id number] [place] [address] 56133- 7662 May, [place] [id number] [place] [address] 18355- 4114 May, Diabetes type 2, controlled E11.9 [place] [address] [place] [address] 14717- 3903 Apr, Diabetes type 2, controlled E11.9 [place] [address] [place] [address] 40949- 6759 Mar, Diabetes type 2, controlled E11.9 ; Knee pain, right M25.561 ; Other chronic pain G89.29 and Medication monitoring encounter Z51.81 [place] [id number] [place] [address] 47702- 2482 Feb, Type 2 diabetes mellitus without complications E11.9 ; High risk medication use Z79.899 and Anxiety F41.9 [place] [address] [place] [address] 06835- 3298 Jan, Diabetes 250.00 [facility] [address] [facility] [id number] [address]- 3776 Dec, Diabetes 250.00 [facility] [address], [place] [address]- 2846 Nov, Diabetes 250.00 [facility] [address], [place] [address]- 2686 Nov, [facility] [address] [place] [address] 09187- 2184 Oct, Diabetes mellitus type 1 250.01 and High risk medication use V58.69 [facility] [address], [place] [address]- 9046 Oct, [facility] [address], [place] [address]- 9837 September, [facility] [id number] [place] [address] 01480- 0307 Aug, [facility] [address], [place] [address]- 6435 Aug, [facility] [address], [place] [address]- 0974 Jul, [facility] [address], [place] [address]- 9561 Jul, [facility] [address], [place] [address]- 0643 Jun, [facility] [address], [place] [address]- 2545 Jun, [facility] [address], [place] [address]- 9541 Jun, [facility] [address], [place] [address]- 2296 May, [facility] [address], [place] [address]- 0927 May, [facility] [place] [facility] [address] [id number] [place] [address]- 2572 Apr, [facility] [place] [facility] [address] [id number] [place] [address]- 7395 Apr, [facility] [place] [facility] [address] [id number] [place] [address]- 4800 Apr, [facility] [place] [facility] [address] [id number] [place] [address]- 0324 Apr, [facility] [place] [facility] [address] [id number] [place] [address]- 1237 Apr, [facility] [place] [facility] [address] [id number] [place] [address]- 4953 Apr, [facility] [place] [facility] [address] [id number] [place] [address]- 2991 Feb, [facility] [place] [facility] [address] [id number] [place] [address]- 9210 Feb, [facility] [place] [facility] [address] [id number] [place] [address]- 7266 Feb, [facility] [place] [facility] [address] [id number] [place] [address]- 2499 Feb, [facility] [place] [facility] [address] [id number] [place] [address]- 2705 Dec, [facility] [place] [facility] [address] [id number] [place] [address]- 3219 Dec, [facility] [place] [facility] [address] [id number] [place] [address]- 8702 Nov, [facility] [place] [facility] [address] [id number] [place] [address]- 2977 Nov, [facility] [place] [facility] [address] [id number] [place] [address]- 4225 Oct, [facility] [place] [facility] [address] [id number] [place] [address]- 9953 Oct, [facility] [address] [id number] [place] [address]- 4062 Oct, [facility] [place] [facility] [address] [id number] [place] [address]- 7148 Oct, [facility] [place] [facility] [address] [id number] [place] [address]- 9135 Oct, [facility] [place] [facility] [address] [id number] [place] [address]- 1144 Oct, [facility] [place] [facility] [address] [id number] [place] [address]- 6513 September, [facility] [place] [facility] [address] [id number] [place] [address]- 4574 September, [facility] [address] [id number] [place] [address]- 6427 September, [facility] [address] [id number] [place] [address]- 0399 September, [facility] [place] [facility] [address] [id number] [place] [address]- 4626 September, [facility] [address] [id number] [place] [address]- 8848 September, [facility] [place] [facility] [address] [id number] [place] [address]- 2270 Aug, [facility] [place] [facility] [address] [id number] [place] [address]- 5385 Aug, [facility] [place] [facility] [address] [id number] [place] [address]- 3566 Aug, [facility] [place] [facility] [address] [id number] [place] [address]- 7893 Aug, [facility] [place] [facility] [address] [id number] [place] [address]- 3136 Aug, [facility] [place] [facility] [address] [id number] [place] [address]- 0960 Aug, [facility] [place] [facility] [address] [id number] [place] [address]- 3646 Jul, [facility] [place] [facility] [address] [id number] [place] [address]- 2546 Jul, [facility] [place] [facility] [address] [id number] [place] [address] 2540 Jul, [facility] [place] [facility] [address] [id number] [place] [address]- 3309 Jul, [facility] [place] [facility] [address] [id number] [place] [address]- 2007 May, [facility] [place] [facility] [address] [id number] [place] [address]- 1134 May, [facility] [place] [facility] [address] [id number] [place] [address]- 0019 Apr, [facility] [place] [facility] [address] [id number] [place] [address]- 9482 Apr, [facility] [place] [facility] [address] [id number] [place] [address]- 4640 Apr, [facility] [place] [facility] [address] [id number] [place] [address]- 4098 Apr, [facility] [place] [facility] [address] [id number], [place] [address]- 8850 Apr, [facility] [place] [facility] [address] [id number] [place] [address]- 1907 Apr, [facility] [place] [facility] [address] [id number] [place] [address]- 1516 Feb, [facility] [place] [facility] [address] [id number], [place] [address]- 2546 Feb, [facility] [place] [facility] [address] [id number], [place] [address]- 0115 Feb, [facility] [place] [facility] [address] [id number] [place] [address]- 7274 Feb, [facility] [place] [facility] [address] [id number] [place] [address]- 9713 Feb, [facility] [place] [facility] [address] [id number] [place] [address] Feb, [facility] [place] [facility] [address] [id number] [place] [address] Feb, [facility] [place] [facility] [address] [id number] [place] [address] Feb, [facility] [place] [facility] [address] [id number] [place] [address] Jan, [facility] [place] [facility] [address] [id number] [place] [address] Jan, [facility] [place] [facility] [address] [id number] [place] [address] Jan, [facility] [place] [facility] [address] [id number] [place] [address] Jan, [facility] [place] [facility] [address] [id number] [place] [address] Dec, [facility] [place] [facility] [address] [id number] [place] [address] Dec, [facility] [place] [facility] [address] [id number] [place] [address] Dec, [facility] [place] [facility] [address] [id number] [place] [address] Nov, [facility] [place] [facility] [address] [id number] [place] [address] Nov, [facility] [place] [facility] [address] [id number] [place] [address] Oct, [facility] [place] [facility] [address] [id number] [place] [address] September, [facility] [address] [id number] [place] [address] September, [facility] [address] [id number] [place] [address] September, [facility] [address] [id number] [place] [address] Aug, [facility] [address] [id number] [place] [address] Aug, [facility] [address] [id number] [place] [address] Aug, [facility] [address] [id number] [place] [address] Jul, [facility] [address] [id number] [place] [address] Jul, [facility] [facility] [address] [id number] [place] [address] Jun, [facility] [address] [id number] [place] [address] Jun, [facility] [address] [id number] [place] [address] Jun, [facility] [address] [id number] [place] [address] Jun, [facility] [address] [id number] [place] [address] May, [facility] [place] [facility] [address] [id number] [place] [address] May, [facility] [address] [id number] [place] [address] Apr, [facility] [address] [id number] [place] [address] Apr, [facility] [place] [facility] [address] [id number] [place] [address] Apr, [facility] [place] [facility] [address] [id number] [place] [address] Apr, [facility] [place] [facility] [address] [facility] [id number] [place] [address] Apr, [facility] [place] [facility] [address] [id number] [place] [address] Apr, [facility] [place] [facility] [address] [id number] [place] [address] Mar, [facility] [place] [facility] [address] [facility] [id number] [place] [address] Mar, [facility] [place] [facility] [address] [facility] [id number], [place] [address] Mar, [facility] [place] [facility] [address] [id number], [place] [address] Mar, [facility] [place] [facility] [address] [id number], [place] [address] Mar, [facility] [place] [facility] [address] [facility] [id number], [place] [address] Mar, [facility] [place] [facility] [address] [id number], [place] [address] Feb, [facility] [place] [facility] [address] [id number], [place] [address] Feb, [facility] [place] [facility] [address] [id number], [place] [address] Feb, [facility] [place] [facility] [address] [facility] [id number], [place] [address] Feb, [facility] [place] [facility] [address] [facility] [id number], [place] [address] Feb, [facility] [place] [facility] [address] [id number] [place] [address] 28 Jan, 2012 [facility] [address] [id number] [place] [address] Jan, [facility] [place] [facility] [address] [id number] [place] [address] Jan, [facility] [address] [id number] [place] [address] Dec, [facility] [place] [facility] [address] [id number] [place] [address]268 Dec, [facility] [address] [id number] [place] [address] 98[address] Nov, [facility] [address] [id number] [place] [address] Oct, [facility] [address] [id number] [place] [address] Oct, [facility] [address] [id number] [place] [address]70 Oct, [facility] [place] [facility] [address] [id number] [place] [address]358 Oct, [facility] [address] [id number] [place] [address] Oct, [facility] [place] [facility] [address] [id number] [place] [address] September, [facility] [place] [facility] [address] [id number] [place] [address] 18 Aug, 2011 [facility] [place] [facility] [address] [id number] [place] [address] 59[address] Aug, [facility] [place] [facility] [address] [id number] [place] [address]287 17 Aug, 2011 [facility] [place] [facility] [address] [id number] [place] [address] 16 Aug, 2011 [facility] [place] [facility] [address] [id number] [place] [address]- 3944 13 Aug, 2011 [facility] [place] [facility] [address] [id number] [place] [address]- 5046 11 Aug, 2011 [facility] [place] [facility] [address] [id number] [place] [address]- 0795 11 Aug, 2011 [facility] [place] [facility] [address] [id number] [place] [address]- [address] 05 Aug, 2011 [facility] [place] [facility] [address] [id number] [place] [address]- [address]261 05 Aug, 2011 [facility] [place] [facility] [address] [id number] [place] [address]- [address]12 20 Jul, 2011 [facility] [place] [facility] [address] [id number] [place] [address]- [address]137 Jul, [facility] [place] [facility] [address] [id number] [place] [address]12 Jul, [facility] [place] [facility] [address] [id number] [place] [address]- 8899 17 Jul, 2011 [facility] [place] [facility] [address] [id number] [place] [address]- [address]127 Jul, [facility] [place] [facility] [address] [id number] [place] [address]- 9414 15 Jun, 2011 [facility] [place] [facility] [address] [id number] [place] [address]- 3590 14 Jun, 2011 [facility] [place] [facility] [address] [id number] [place] [address]- 0040 08 Jun, 2011 [facility] [place] [facility] [address] [id number] [place] [address]- 8250 08 Jun, 2011 [facility] [place] [facility] [address] [id number] [place] [address]- 7256 May, [facility] [place] [facility] [address] [id number] [place] [address]- 0163 13 May, 2011 [facility] [address] [id number] [place] [address]- 9036 10 May, 2011 [facility] [address] [id number] [place] [address]- [address]90 08 May, 2011 [facility] [address] [id number] [place] [address]76 May, [facility] [place] [facility] [address] [id number] [place] [address]- [address]381 04 May, 2011 [facility] [address] [id number] [place] [address]- 5921 May, [facility] [address] [id number] [place] [address]- 0789 Apr, [facility] [address] [id number] [place] [address]- 7664 13 Apr, 2011 [facility] [place] [facility] [address] [id number] [place] [address]- 3984 Apr, [facility] [address] [id number] [place] [address]- 8613 Apr, [facility] [address] [id number] [place] [address]- 4043 13 Apr, 2011 [facility] [address] [id number] [place] [address]- 2898 13 Apr, 2011 [facility] [place] [facility] [address] [id number] [place] [address]- 254 Apr, [facility] [place] [facility] [address] [id number] [place] [address]- 1503 Apr, [facility] [place] [facility] [address] [id number] [place] [address]- 9917 02 Apr, 2011 [facility] [place] [facility] [address] [id number] [place] [address]- 9249 Apr, [facility] [place] [facility] [address] [id number] [place] [address]- 6620 28 Mar, 2011 [facility] [place] [facility] [address] [id number] [place] [address]- 2845 Mar, [facility] [place] [facility] [address] [id number] [place] [address]- 0916 Feb, [facility] [place] [facility] [address] [id number] [place] [address]- 4793 Jun, [facility] [place] [facility] [address] [id number] [place] [address]- 6547 Apr, [facility] [place] [facility] [address] [id number] [place] [address]- 9091 Feb, [facility] [place] [facility] [address] [id number] [place] [address]- 2051 Feb, [facility] [place] [facility] [address] [id number] [place] [address]- 4533 Feb, [facility] [place] [facility] [address] [id number] [place] [address]- 0573 Apr, [facility] [place] [facility] [address] [id number] [place] [address]- 9767 Apr, [facility] [place] [facility] [address] [id number] [place] [address]- 3730 Mar, [facility] [place] [facility] [address] [id number], [place] [address]- 9313 Mar, [facility] [place] [facility] [address] [id number] [place] [address]- 5512 Mar, [facility] [place] [facility] [address] [id number] [place] [address]- 6229 Feb, [facility] [place] [facility] [address] [id number] [place] [address]- 7429 Feb, [facility] [place] [facility] [address] [id number] [place] [address]- [address]796 Feb, [facility] [place] [address] [facility] [id number] [place] [address]- [address] Jan, IMMUNIZATIONS No Known Immunizations SOCIAL HISTORY Never Assessed REASON FOR VISIT Lab PLAN OF CARE VITAL SIGNS MEDICATIONS Unknown [...]
--- OUTSIDE RECORDS SUMMARY | 2018-04-28 05:14 | XMS REPORT ---
Author Author RADHA OWENS Organization [facility] Address [address] [place] [address] Care Team Providers Care Stabber Name Role Phone RADHA OWENS Unavailable PROBLEMS Type Condition ICD9-CM Code [id number] Code Onset Dates Condition Status SNOMED Code Problem Other chronic pain G89.29 Active 23835840 Problem Controlled type 2 diabetes mellitus without complication, without long -term current use of insulin E11.9 Active 887898826 Problem Memory loss R41.3 Active 695769654 Problem Mild neurocognitive disorder G31.84 Active 063183778 Problem Anxiety state, unspecified F41.1 Active 544672021 Problem [facility] (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 Z79.01 Active 228318306 Problem Chronic major depressive disorder, recurrent episode F33.9 Active 03350728 Problem 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 Active 279961849 Problem Anxiety F41.9 Active 05768858 Problem Knee pain, right M25.561 Active 62844836 Problem Diabetes type 2, controlled E11.9 Active 57920824 Problem Hypogonadism in male E29.1 Active 20038548 Problem Hypertriglyceridemia E78.1 Active 710799392 Problem Chronic fatigue R53.82 Active 41414795 Problem Type 2 diabetes mellitus without complications E11.9 Active 068019340 Problem Moderate episode of recurrent major depressive disorder F33.1 Active 571914020 Problem Hammertoe of right foot M20.41 Active 043582113 Problem 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.01 Active [id number] ALLERGIES No Information ENCOUNTERS Encounter Location Date Diagnosis [facility] [id number] [address] Mar, [facility] [id number], [place] [address] Mar, [facility] [id number], [place] [address] Mar, Type 2 diabetes mellitus without complications E11.9 and Controlled type 2 diabetes mellitus without complication, without long-term current use of insulin E11.9 [facility] [id number] [place] [address] 99913- 9482 Mar, 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 [facility] [id number] [place] [address] 80180- 7668 Mar, Mild neurocognitive disorder G31.84 and Anxiety state, unspecified F41.1 [facility] [id number] [place] [address] 51829- 3340 08 Mar, 2018 Anxiety state, unspecified F41.1 and Other signs and symptoms involving cognition R41.89 [facility] [id number] [place] [address] 87084- 5395 Mar, [facility] [id number] [place] [address] 85576- 8013 Feb, Controlled type 2 diabetes mellitus without complication, without long-term current use of insulin E11.9 ; Anxiety F41.9 ; Diabetes type 2 , controlled E11.9 and [facility] 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 [facility] [id number] [place] [address] 68427- 5363 Feb, Medicare welcome exam Z00.00 and Type 2 diabetes mellitus without complications E11.9 [facility] [id number] [place] [address] 98860 -7848 Jan, Hypogonadism in male E29.1 [facility] [id number] [place] [address] 48796- 8587 Jan, Medicare welcome exam Z00.00 and Type 2 diabetes mellitus without complications E11.9 [facility] [id number] [place] [address] 47167- 6062 Jan, Hypogonadism in male E29.1 [facility] [id number] [place] [address] 12829- 7008 Jan, [facility] [address] [facility] [id number] [place] [address] 8776 Dec, Hypogonadism in male E29.1 [facility] [address] [facility] [id number] [place] [address] 2546 27 Dec, 2017 Medicare welcome exam Z00.00 [facility] [address] [facility] [id number] [place] [address] 2546 Dec, Hypogonadism in male E29.1 [facility] [address] [facility] [id number] [place] [address] 2546 Dec, [facility] [address] [facility] [id number] [place] [address] 2546 Nov, Hypogonadism in male E29.1 [facility] [address] [facility] [id number] [place] [address] 2546 Nov, Type 2 diabetes mellitus without complications E11.9 and History of Coumadin therapy Z92.29 [facility] [address] [facility] [id number] [place] [address] 2546 18 Nov, 2017 Medicare welcome exam Z00.00 [facility] [id number] [place] [address] 2546 Nov, Type 2 diabetes mellitus without complications E11.9 ; History of Coumadin therapy Z92.29 and Hypogonadism in male E29.1 [facility] [address] [facility] [id number] [place] [address] 2546 Nov, [facility] [address] [facility] [id number], [place] [address] 2546 Oct, [facility] [address] [facility] [id number] [place] [address] 2546 Oct, Diabetes type 2, controlled E11.9 [facility] [address] [facility] [id number] [place] [address]- 5836 Oct, Medicare welcome exam Z00.00 [facility] [address], [place] [address] 2104 11 Oct, 2017 Hypogonadism in male E29.1 [facility] [address], [place] [address] 09 Oct, 2017 [facility] [address], [place] [address] 1801 September, Hypogonadism in male E29.1 [facility] [id number], [place] [address] 4785 15 Sep, 2017 Medicare welcome exam Z00.00 [facility] [address], [place] [address] 3[address] September, Hypogonadism in male E29.1 [facility] [address], [place] [address] 6593 Aug, Other chronic pain G89.29 ; Memory loss R41.3 ; Controlled type 2 diabetes mellitus without complication, without long-term current use of insulin E11.9 and Chronic major depressive disorder, recurrent episode F33.9 [facility] [address], [place] [address] 1825 11 Aug, 2017 Medicare welcome exam Z00.00 [facility] [address], [place] [address]- 0558 Aug, [facility] [address], [place] [address] Aug, Hypogonadism in male E29.1 [facility] [address], [place] [address] 1720 Jul, [facility] [id number], [place] [address] 5941 Jul, Hypogonadism in male E29.1 [facility] [address], [place] [address]- 9682 Jul, [facility] [address], [place] [address] Jul, Hypogonadism in male E29.1 [facility] [address], [place] [address]- 1318 09 Jul, 2017 Medicare welcome exam Z00.00 [facility] [address], [place] [address]- 7036 22 Jun, 2017 Medicare welcome exam Z00.00 [facility] [id number] [place] [address] 21833 -6544 Jun, Fever R50.9 and Influenza B J10.1 [facility] [id number] [place] [address] 48956- 7143 Jun, Hypogonadism in male E29.1 [facility] [id number] [place] [address] 95589- 0304 Jun, Diabetes type 2, controlled E11.9 [facility] [id number] [place] [address] 27898- 5822 May, Hypogonadism in male E29.1 [facility] [id number] [place] [address] 27001- 9933 May, 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 [facility] [id number] [place] [address] 28128- 4268 Apr, Hypogonadism in male E29.1 [facility] [id number], [place] [address]- 0031 Apr, [facility] [id number] [place] [address] 01473- 8651 Apr, Medicare welcome exam Z00.00 and 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 [facility] [address], [place] [address]- 5932 Apr, Hypogonadism in male E29.1 [facility] [id number] [place] [address] 06747- 3433 Mar, Diabetes type 2, controlled E11.9 [facility] [address], [place] [address]- 6370 Mar, Hypogonadism in male E29.1 [facility] [id number] [place] [address] 52196- 1175 Mar, Hypogonadism in male E29.1 [facility] [id number] [place] [address] 81121- 2033 Feb, Hypogonadism in male E29.1 [facility] [id number] [place] [address] 01513- 9048 Feb, Malaise R53.81 [facility] [id number] [place] [address] 78395- 5143 Feb, [facility] [id number] [place] [address] 07041- 3444 Feb, Diabetes type 2, controlled E11.9 [facility] [id number] [place] [address] 84462- 2062 Feb, Chronic fatigue R53.82 ; Malaise R53.81 and Moderate episode of recurrent major depressive disorder F33.1 [facility] [address], [place] [address]- 0142 Jan, Diabetes type 2, controlled E11.9 [facility] [id number] [place] [address] 90847- 3886 Jan, 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.01 and [facility] (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 Z79.01 [address] [address] [place] [address] 06501- 2889 Dec, Diabetes type 2, controlled E11.9 and Hypertriglyceridemia E78.1 [facility] [id number], [place] [address]- 2039 Dec, Diabetes type 2, controlled E11.9 [facility] [id number] [place] [address] 07760- 0853 Dec, High risk medication use Z79.899 and 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 [facility] [id number] [place] [address] 75784- 0638 Dec, High risk medication use Z79.899 [facility] [id number] [place] [address] 24426- 5855 Nov, Diabetes type 2, controlled E11.9 [facility] [id number] [place] [address] 27444- 3716 Oct, Diabetes type 2, controlled E11.9 [facility] [id number] [place] [address] 23110- 9436 September, Diabetes type 2, controlled E11.9 [facility] [id number] [place] [address] 86743- 8941 Aug, 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 [facility] [id number] [place] [address] 85348- 9565 Aug, Hematoma of arm, right, initial encounter S40.021A and [facility] (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 Z79.01 [address] [address] [place] [address] 84795- 1870 Aug, [facility] [address] [place] [address] 62474 -4110 Aug, Cellulitis of right upper extremity L03.113 [facility] [id number] [place] [address] 42818- 6749 14 Aug, 2016 Diabetes type 2, controlled E11.9 [facility] [id number] [place] [address] 03221- 4554 Aug, Hammertoe of right foot M20.41 ; Hallux abducto valgus, left M20.12 and Onychomycosis B35.1 [facility] [id number] [place] [address] 32284- 9458 Aug, 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 [facility] [address] [place] [address] 99475- 8030 Aug, 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 [facility] [id number] [place] [address] 29272- 7488 Aug, 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 [facility] [id number] [place] [address] 27198 -6519 Aug, Right shoulder pain M25.511 and Closed nondisplaced fracture of acromial end of right clavicle, initial encounter S42.034A [facility] [id number] [place] [address] 67566- 5221 Jul, Diabetes type 2, controlled E11.9 [facility] [id number] [place] [address] 43320- 6194 Jun, Diabetes type 2, controlled E11.9 and 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 [facility] [address] [place] [address] 22430- 6219 May, [facility] [id number] [place] [address] 98541- 4199 Apr, [facility] [id number] [place] [address] 35945- 3882 Mar, [facility] [id number] [place] [address] 39657- 4628 Feb, [facility] [id number] [place] [address] 42668- 1061 Dec, Diabetes type 2, controlled E11.9 [facility] [id number] [place] [address] 270928- 0276 Dec, [facility] [id number] [place] [address] 18313- 9954 Nov, [facility] [address], [place] [address]- 5568 Nov, Type 2 diabetes mellitus without complications E11.9 [facility] [address], [place] [address]- 5755 Oct, Type 2 diabetes mellitus without complications E11.9 [facility] [address], [place] [address]- 6334 Aug, [facility] [id number] [place] [address] 21055- 0098 Aug, Type 2 diabetes mellitus without complications E11.9 [facility] [id number] [place] [address] 17447- 5792 Jun, Type 2 diabetes mellitus without complications E11.9 and 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 terminal manager 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 antiplatelet drug Z79.02 [facility] [address] [place] [address] 84160- 7673 May, [facility] [address] [place] [address] 41912- 1216 May, Diabetes type 2, controlled E11.9 [facility] [address], [place] [address]- 1468 Apr, Diabetes type 2, controlled E11.9 [facility] [address], [place] [address]- 9220 Mar, Diabetes type 2, controlled E11.9 ; Knee pain, right M25.561 ; Other chronic pain G89.29 and Medication monitoring encounter Z51.81 [facility] [address], [place] [address]- 0289 Feb, Type 2 diabetes mellitus without complications E11.9 ; High risk medication use Z79.899 and Anxiety F41.9 [facility] [address], [place] [address]- 5580 10 Jan, 2015 Diabetes 250.00 [facility] [id number] [place] [address] 22310- 9642 Dec, Diabetes 250.00 [facility] [address] [facility] [id number], [place] [address]- 4680 Nov, Diabetes 250.00 [facility] [address] [facility] [id number], [place] [address]- 7570 Nov, [facility] [address] [facility] [id number], [place] [address]- 5455 Oct, Diabetes mellitus type 1 250.01 and High risk medication use V58.69 [facility] [address] [facility] [id number], [place] [address]- 5394 Oct, [facility] [address] [facility] [id number], [place] [address]- 8462 September, [facility] [address], [place] [address]- 7015 Aug, [facility] [id number], [place] [address]- 4392 Aug, [facility] [id number], [place] [address]- 8237 Jul, [facility] [id number], [place] [address]- 6554 Jul, [facility] [id number], [place] [address]- 3318 Jun, [facility] [address] [facility] [id number], [place] [address]- 7397 Jun, [facility] [address] [facility] [id number]- 9130 Jun, [facility] [address] [facility] [id number], [place] [address]- 2286 May, [facility] [id number], [place] [address]- 8413 May, [facility] [address] [facility] [id number] [place] [address]- 9338 Apr, [facility] [place] [facility] [address] [id number] [place] [address]- 3353 Apr, [facility] [place] [facility] [address] [id number] [place] [address]- 5986 Apr, [facility] [place] [facility] [address] [id number] [place] [address]- 0816 Apr, [facility] [place] [facility] [address] [id number] [place] [address]- 7680 Apr, [facility] [place] [facility] [address] [id number] [place] [address]- 4415 Apr, [facility] [place] [facility] [address] [id number] [place] [address]- 1627 Feb, [facility] [place] [facility] [address] [id number] [place] [address]- 9864 Feb, [facility] [place] [facility] [address] [id number] [place] [address]- 5740 Feb, [facility] [place] [facility] [address] [id number] [place] [address]- 6532 Feb, [facility] [place] [facility] [address] [id number] [place] [address]- 0790 Dec, [facility] [place] [facility] [address] [id number] [place] [address]- 1672 Dec, [facility] [place] [facility] [address] [id number] [place] [address]- 2521 Nov, [facility] [place] [facility] [address] [id number] [place]- 2884 Nov, [facility] [place] [facility] [address] [id number] [place] [address]- 0877 Oct, [facility] [place] [facility] [address] [id number] [place] 9284 Oct, [facility] [place] [facility] [address] [id number] [place] [address]- 9103 Oct, [facility] [place] [facility] [address] [id number] [place] [address]- 9729 Oct, [facility] [place] [facility] [address] [id number] [place] [address]- 9816 Oct, [facility] [place] [facility] [address] [id number] [place] [address]- 9327 Oct, [facility] [place] [facility] [address] [id number] [place] [address]- 4904 September, [facility] [place] [facility] [address] [id number] [place] [address]- 8203 September, [facility] [place] [facility] [address] [id number] [place] [address]- 3656 September, [facility] [place] [facility] [address] [id number] [place] [address]- 7419 September, [facility] [place] [facility] [address] [id number] [place] [address]- 9379 September, [facility] [place] [facility] [address] [id number] [place] [address]- 9730 September, [facility] [place] [facility] [address] [id number] [place] [address]- 9028 Aug, [facility] [place] [facility] [address] [id number] [place] [address]- 4783 Aug, [facility] [place] [facility] [address] [id number] [place] [address]- 7852 Aug, [facility] [place] [facility] [address] [id number] [place] [address]- 0759 Aug, [facility] [place] [facility] [address] [id number] [place] [address]- 0180 Aug, [facility] [place] [facility] [address] [id number] [place] [address]- 2546 Aug, [facility] [place] [facility] [address] [id number] [place] [address]- 8409 Jul, [facility] [place] [facility] [address] [id number] [place] [address]- 2546 Jul, [facility] [place] [facility] [address] [id number] [place] [address] 2546 Jul, [facility] [place] [facility] [address] [id number] [place] [address]- 5432 Jul, [facility] [place] [facility] [address] [id number] [place] [address]- 7169 May, [facility] [place] [facility] [address] [id number] [place] [address]- 5849 May, [facility] [place] [facility] [address] [id number] [place] [address]- 8360 Apr, [facility] [place] [facility] [address] [id number] [place] [address]- 7502 Apr, [facility] [place] [facility] [address] [id number] [place] [address]- 9997 Apr, [facility] [place] [facility] [address] [id number] [place] [address]- 3167 Apr, [facility] [place] [facility] [address] [id number], [place] [address]- 4822 Apr, [facility] [place] [facility] [address] [id number][place] 5361 Apr, [facility] [place] [facility] [address] [id number] [place] [address]- 4149 Feb, [facility] [place] [facility] [address] [id number] [place] [address]- 3206 Feb, [facility] [place] [facility] [address] [id number] [place] [address] Feb, [facility] [place] [facility] [address] [id number] [place] [address] Feb, [facility] [address] [id number] [place] [address] Feb, [facility] [place] [facility] [address] [id number] [place] [address] Feb, [facility] [address] [id number] [place] [address] Feb, [facility] [place] [facility] [address] [id number] [place] [address] Feb, [facility] [address] [id number] [place] [address] Jan, [facility] [address] [id number] [place] [address] Jan, [facility] [address] [id number] [place] [address] Jan, [facility] [address] [id number] [place] [address] Jan, [facility] [address] [id number] [place] [address] Dec, [facility] [address] [id number] [place] [address] Dec, [facility] [place] [facility] [address] [id number] [place] [address] Dec, [facility] [address] [id number] [place] [address] Nov, [facility] [place] [facility] [address] [id number] [place] [address] Nov, [facility] [place] [facility] [address] [id number] [place] [address] Oct, [facility] [place] [facility] [address] [id number] [place] [address] September, [facility] [address] [id number] [place] [address] September, [facility] [address] [id number] [place] [address]- [address] September, [facility] [address] [id number] [place] [address] Aug, [facility] [address] [id number] [place] [address]- [address] Aug, [facility] [address] [id number] [place] [address] Aug, [facility] [address] [id number] [place] [address] Jul, [facility] [address] [id number] [place] [address] Jul, [facility] [address] [id number] [place] [address] Jun, [facility] [address] [id number] [place] [address] Jun, [facility] [address] [id number] [place] [address] Jun, [facility] [address] [id number] [place] [address] Jun, [facility] [address] [id number], [place] [address] May, [facility] [place] [facility] [address] [id number] [place] [address] May, [facility] [place] [facility] [address] [id number] [place] [address] Apr, [facility] [place] [facility] [address] [id number] [place] [address] Apr, [facility] [address] [id number] [place] [address] 06 Apr, 2012 [facility] [place] [facility] [address] [id number] [place] [address] Apr, [facility] [place] [facility] [address] [id number] [place] [address] Apr, [facility] [place] [facility] [address] [facility] [id number] [place] [address] Apr, [facility] [place] [facility] [address] [id number] [place] [address] Mar, [facility] [place] [facility] [address] [id number] [place] [address] Mar, [facility] [place] [facility] [address] [facility] [id number] [place] [address] Mar, [facility] [place] [facility] [address] [facility] [id number] [place] [address] Mar, [facility] [place] [facility] [address] [facility] [id number] [place] [address] Mar, [facility] [place] [facility] [address] [facility] [id number] [place] [address] Mar, [facility] [place] [facility] [address] [facility] [id number] [place] [address] Feb, [facility] [place] [facility] [address] [facility] [id number] [place] [address] Feb, [facility] [place] [facility] [address] [facility] [id number], [place] [address] Feb, [facility] [place] [facility] [address] [id number] [place] [address] Feb, [facility] [place] [facility] [address] [facility] [id number] [place] [address] Feb, [facility] [place] [facility] [address] [facility] [id number], [place] [address] Jan, [facility] [place] [facility] [address] [id number] [place] [address] Jan, [facility] [place] [facility] [address] [id number] [place] [address] Jan, [facility] [place] [facility] [address] [id number] [place] [address] Dec, [facility] [place] [facility] [address] [id number] [place] [address] Dec, [facility] [place] [facility] [address] [id number] [place] [address] Nov, [facility] [place] [facility] [address] [id number] [place] [address] Oct, [facility] [place] [facility] [address] [id number] [place] [address]78 Oct, [facility] [place] [facility] [address] [id number] [place] [address] Oct, [facility] [place] [facility] [address] [id number] [place] [address] Oct, [facility] [place] [facility] [address] [id number] [place] [address] Oct, [facility] [place] [facility] [address] [id number] [place] [address] September, [facility] [place] [facility] [address] [id number] [place] [address] Aug, [facility] [place] [facility] [address] [id number] [place] [address] Aug, [facility] [place] [facility] [address] [id number] [place] [address]- [address] 17 Aug, 2011 [facility] [place] [facility] [address] [id number] [place] [address] 16 Aug, 2011 [facility] [place] [facility] [address] [id number] [place] [address] 13 Aug, 2011 [facility] [place] [facility] [address] [id number] [place] [address] Aug, [facility] [place] [facility] [address] [id number] [place] [address] 11 Aug, 2011 [facility] [place] [facility] [address] [id number] [place] [address] Aug, [facility] [place] [facility] [address] [id number] [place] [address] 05 Aug, 2011 [facility] [place] [facility] [address] [id number] [place] [address] Jul, [facility] [place] [facility] [address] [id number] [place] [address] Jul, [facility] [place] [facility] [address] [id number] [place] [address] Jul, [facility] [place] [facility] [address] [id number] [place] [address]- [address]23 17 Jul, 2011 [facility] [place] [facility] [address] [id number] [place] [address] 1074 Jul, [facility] [place] [facility] [address] [id number] [place] [address]- [address]38 15 Jun, 2011 [facility] [place] [facility] [address] [id number] [place] [address] 97[address] 14 Jun, 2011 [facility] [place] [facility] [address] [id number] [place] [address]- 1582 08 Jun, 2011 [facility] [place] [facility] [address] [id number] [place] [address]- 42[address] 08 Jun, 2011 [facility] [place] [facility] [address] [id number] [place] [address]- 5[address] 19 May, 2011 [facility] [place] [facility] [address] [id number] [place] [address]- 3823 13 May, 2011 [facility] [place] [facility] [address] [id number] [place] [address] 6[address] 10 May, 2011 [facility] [address] [id number] [place] [address] May, [facility] [place] [facility] [address] [id number] [place] [address] 64[address] May, [facility] [place] [facility] [address] [id number] [place] [address]756 May, [facility] [place] [facility] [address] [id number] [place] [address]- 8518 May, [facility] [place] [facility] [address] [id number] [place] [address] 9[address] Apr, [facility] [place] [facility] [address] [id number] [place] [address] 18[address] Apr, [facility] [place] [facility] [address] [id number] [place] [address] Apr, [facility] [place] [facility] [address] [id number] [place] [address] 24[address] Apr, [facility] [place] [facility] [address] [id number] [place] [address]- 5169 Apr, [facility] [place] [facility] [address] [id number] [place] [address]- 5747 Apr, [facility] [place] [facility] [address] [id number] [place] [address]- 6[address] Apr, [facility] [place] [facility] [address] [id number] [place] [address]- 60[address] Apr, [facility] [place] [facility] [address] [id number] [place] [address]- 0[address] Apr, [facility] [place] [facility] [address] [id number] [place] [address]- 9405 Apr, [facility] [place] [facility] [address] [id number] [place] [address] Mar, [facility] [place] [facility] [address] [id number] [place] [address]- 270[address] 16 Mar, 2011 [facility] [place] [facility] [address] [id number] [place] [address]- 6[address] Feb, [facility] [place] [facility] [address] [id number] [place] [address]- 7026 Jun, [facility] [place] [facility] [address] [id number] [place] [address]- 5781 Apr, [facility] [place] [facility] [address] [id number] [place] [address]- 2125 Feb, [facility] [place] [facility] [address] [id number] [place] [address]- 2692 Feb, [facility] [place] [facility] [address] [id number] [place] [address]- 8632 Feb, [facility] [place] [facility] [address] [id number], [place] [address]- 8195 Apr, [facility] [place] [facility] [address] [id number], [place] [address]- 99[address] Apr, [facility] [place] [facility] [address] [id number], [place] [address]- 55[address] Mar, [facility] [place] [facility] [address] [id number], [place] [address]- [address] Mar, [facility] [place] [facility] [address] [id number], [place] [address]- 6184 Mar, [facility] [place] [facility] [address] [id number], [place] [address] 8359 Feb, [facility] [place] [facility] [address] [id number], [place] [address]- 4[address] Feb, [facility] [place] [facility] [address] [id number] [address] Feb, [facility] [place] [facility] [address] [facility] [id number] [place] [address] 12 Jan, 2009 IMMUNIZATIONS No Known Immunizations SOCIAL HISTORY Never Assessed REASON FOR VISIT Cognitive testing. PLAN OF CARE Activity Details Follow Up will meet with Pt. to review eval. results Reason: VITAL SIGNS MEDICATIONS Unknown Medications RESULTS No Results PROCEDURES Procedure Date Ordered Result Body Site PSYCHO TESTING BY CYBER INCIDENT ANALYST Mar 21, 2018 PSYCHO TESTING BY CYBER INCIDENT ANALYST Mar 21, 2018 INSTRUCTIONS MEDICATIONS ADMINISTERED No Known Medications [...]
--- OUTSIDE RECORDS SUMMARY | 2018-04-28 05:14 | XMS REPORT ---
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 Active 588442880 Problem Memory loss R41.3 Active 707477856 Problem Other chronic pain G89.29 Active 61536926 Problem Anxiety F41.9 Active 11250699 Problem retirement (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 Z79.01 Active 037465473 Problem Hypogonadism in male E29.1 Active 91635341 Problem Knee pain, right M25.561 Active 63620497 Problem Hammertoe of right foot M20.41 Active 958805902 Problem Hypertriglyceridemia E78.1 Active 031599733 Problem Diabetes type 2, controlled E11.9 Active 21589830 Problem Chronic fatigue R53.82 Active 83759368 Problem Type 2 diabetes mellitus without complications E11.9 Active 549253352 Problem Moderate episode of recurrent major depressive disorder F33.1 Active [id number] ALLERGIES No Information ENCOUNTERS Encounter Location Date Diagnosis [facility] [address] [facility] [id number] [address] Mar, [facility] [place] [facility] [address] [id number], [place] [address] 44[address] Mar, [facility] [place] [facility] [address] [facility] [id number], [place] [address] Mar, Anxiety state, unspecified F41.1 and Other signs and symptoms involving cognition R41.89 [facility] [place] [facility] [address] [id number], [place] [address]30 Mar, [facility] [place] [facility] [id number] [place] [address] 60297- 0695 Feb, Controlled type 2 diabetes mellitus without complication, without long-term current use of insulin E11.9 ; Anxiety F41.9 ; Diabetes type 2 , controlled E11.9 and 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 [facility] [facility] [address] [id number], [place] [address] 18 Feb, 2018 Medicare welcome exam Z00.00 and Type 2 diabetes mellitus without complications E11.9 [facility] [address]005[address], [place] [address] Jan, Hypogonadism in male E29.1 [facility] [place] [facility] [id number] [place] [address] 88467- 6567 Jan, Medicare welcome exam Z00.00 and Type 2 diabetes mellitus without complications E11.9 [facility] [place] [facility] [address], [place] [address] 250[address] Jan, Hypogonadism in male E29.1 [facility] [place] [facility] [id number] [place] [address] 36418- 7013 Jan, [facility] [place] [facility] [address], [place] [address] 7[address] Dec, Hypogonadism in male E29.1 [facility] [place] [facility] [address], [place] [address] 6931 Dec, Medicare welcome exam Z00.00 [facility] [place] [facility] [id number] [place] [address] 42406- 6879 Dec, Hypogonadism in male E29.1 [facility] [place] [facility] [address] [id number], [place] [address] 6[address] Dec, [facility] [place] [facility] [address] [id number], [place] [address] 8953 Nov, Hypogonadism in male E29.1 [facility] [place] [facility] [address], [place] [address] 2[address] Nov, Type 2 diabetes mellitus without complications E11.9 and History of Coumadin therapy Z92.29 [facility] [place] [facility] [address], [place] [address] 2546 Nov, Medicare welcome exam Z00.00 [facility] [place] [facility] [address], [place] [address] 2546 Nov, Type 2 diabetes mellitus without complications E11.9 ; History of Coumadin therapy Z92.29 and Hypogonadism in male E29.1 [facility] [facility] [address], [place] [address] 2[address] Nov, [facility] [place] [facility] [address], [place] [address] Oct, [facility] [place] [facility] [address], [place] [address] 2547 Oct, Diabetes type 2, controlled E11.9 [facility] [place] [facility] [address], [place] [address] 3416 Oct, Medicare welcome exam Z00.00 [facility] [facility] [address], [place] [address] 3519 Oct, Hypogonadism in male E29.1 [facility] [address], [place] [address] Oct, [facility] [place] [facility] [address], [place] [address]- 9936 September, Hypogonadism in male E29.1 [facility] [place] [facility] [address], [place] [address] 0186 September, Medicare welcome exam Z00.00 [facility] [facility] [address], [place] [address] 7706 September, Hypogonadism in male E29.1 [facility] [facility] [id number] [place] [address] 52581- 4452 Aug, Other chronic pain G89.29 ; Memory loss R41.3 ; Controlled type 2 diabetes mellitus without complication, without long-term current use of insulin E11.9 and Chronic major depressive disorder, recurrent episode F33.9 [facility] [facility] [id number] [place] [address] 36853- 9896 Aug, Medicare welcome exam Z00.00 [facility] [facility] [id number] [place] [address] 48446- 6891 Aug, [facility] [id number] [place] [address] 63706 -7650 Aug, Hypogonadism in male E29.1 [facility] [facility] [id number] [place] [address] 62260- 3422 Jul, [facility] [facility] [id number] [place] [address] 90825- 2139 Jul, Hypogonadism in male E29.1 [facility] [facility] [id number] [place] [address] 88973- 8458 Jul, [facility] [id number] [place] [address] 09161 -2516 Jul, Hypogonadism in male E29.1 [facility] [id number] [place] [address] 30667- 3670 Jul, Medicare welcome exam Z00.00 [facility] [id number] [place] [address] 99056- 5308 Jun, Medicare welcome exam Z00.00 [facility] [id number] [place] [address] 03370 -4026 Jun, Fever R50.9 and Influenza B J10.1 [facility] [id number] [place] [address] 53175- 0520 Jun, Hypogonadism in male E29.1 [facility] [address], [place] [address]- 0036 Jun, Diabetes type 2, controlled E11.9 [facility] [address], [place] [address]- 9296 May, Hypogonadism in male E29.1 [facility] [id number], [place] [address] 2546 May, retirement (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 Z79.01 [facility] [id number], [place] [address] 2546 Apr, Hypogonadism in male E29.1 [facility] [address]46[address], [place] [address]- 2116 Apr, [place] [id number] [place] [address] 93798- 5226 Apr, Medicare welcome exam Z00.00 and retirement (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 Z79.01 [facility] [address], [place] [address]- 8693 Apr, Hypogonadism in male E29.1 [facility] [address], [place] [address]- 0296 Mar, Diabetes type 2, controlled E11.9 [facility] [address], [place] [address]- 1276 Mar, Hypogonadism in male E29.1 [facility] [address], [place] [address] 2546 Mar, Hypogonadism in male E29.1 [facility] [address], [place] [address]- 6006 Feb, Hypogonadism in male E29.1 [facility] [address], [place] [address]- 5358 Feb, Malaise R53.81 [facility] [address], [place] [address]- 8133 Feb, [place] [address] [place] [address] 70178- 8158 Feb, Diabetes type 2, controlled E11.9 [place] [id number] [place] [address] 99239- 9192 Feb, Chronic fatigue R53.82 ; Malaise R53.81 and Moderate episode of recurrent major depressive disorder F33.1 [place] [address], [place] [address]- 4982 Jan, Diabetes type 2, controlled E11.9 [place] [address] [place] [address] 76270- 3903 Jan, 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.01 and 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 [place] [id number] [place] [address] 70982- 3650 Dec, Diabetes type 2, controlled E11.9 and Hypertriglyceridemia E78.1 [place] [id number] [place] [address] 61035- 0902 Dec, Diabetes type 2, controlled E11.9 [place] [address], [place] [address]- 1528 Dec, High risk medication use Z79.899 and retirement (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 Z79.01 [place] [address], [place] [address]- 2545 Dec, High risk medication use Z79.899 [place] [id number] [place] [address] 41680- 9986 Nov, Diabetes type 2, controlled E11.9 [place] [address], [place] [address]- 5612 Oct, Diabetes type 2, controlled E11.9 [place] [id number] [place] [address] 73806- 9331 September, Diabetes type 2, controlled E11.9 [place] [id number] [place] [address] 44693- 6346 Aug, 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 [place] [id number] [place] [address] 20264- 1394 Aug, Hematoma of arm, right, initial encounter S40.021A and retirement (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 Z79.01 [place] [id number] [place] [address] 55048- 1842 Aug, [facility] [place] [address] 23142 -0591 Aug, Cellulitis of right upper extremity L03.113 [place] [address] 55019- 9160 Aug, Diabetes type 2, controlled E11.9 [place] [id number] [place] [address] 40626- 8229 Aug, Hammertoe of right foot M20.41 ; Hallux abducto valgus, left M20.12 and Onychomycosis B35.1 [place] [id number] [place] [address] 47860- 6591 Aug, 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 [place] [id number] [place] [address] 99605- 1283 Aug, 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 [place] [id number] [place] [address] 16685- 9164 Aug, 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 [facility] [id number] [place] [address] 53988 -4582 Aug, Right shoulder pain M25.511 and Closed nondisplaced fracture of acromial end of right clavicle, initial encounter S42.034A [facility] [address], [place] [address]- 6627 Jul, Diabetes type 2, controlled E11.9 [facility] [address], [place] [address]- 9788 Jun, Diabetes type 2, controlled E11.9 and 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 [facility] [address] [facility] [id number], [place] [address]- 4374 May, [facility] [address], [place] [address]- 7752 Apr, [facility] [id number] [place] [address] 96466- 3445 Mar, [facility] [id number] [place] [address] 49692- 9296 Feb, [facility] [id number] [place] [address] 09904- 6045 Dec, Diabetes type 2, controlled E11.9 [facility] [address], [place] [address]- 7749 Dec, [facility] [address], [place] [address]- 5148 Nov, [facility] [address], [place] [address]- 4138 Nov, Type 2 diabetes mellitus without complications E11.9 [facility] [id number], [place] [address]- 9312 Oct, Type 2 diabetes mellitus without complications E11.9 [facility] [address], [place] [address]- 1677 Aug, [facility] [address], [place] [address]- 8549 Aug, Type 2 diabetes mellitus without complications E11.9 [facility] [id number], [place] [address]- 1944 Jun, Type 2 diabetes mellitus without complications E11.9 and 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 [place] [id number] [place] [address] 99748- 0833 May, [place] [id number] [place] [address] 82018- 3103 May, Diabetes type 2, controlled E11.9 [place] [id number] [place] [address] 84145- 5693 Apr, Diabetes type 2, controlled E11.9 [place] [address] [place] [address] 06825- 9397 Mar, Diabetes type 2, controlled E11.9 ; Knee pain, right M25.561 ; Other chronic pain G89.29 and Medication monitoring encounter Z51.81 [place] [id number] [place] [address] 11571- 3812 Feb, Type 2 diabetes mellitus without complications E11.9 ; High risk medication use Z79.899 and Anxiety F41.9 [place] [id number] [place] [address] 06060- 8107 Jan, Diabetes 250.00 [place] [id number] [place] [address] 63592- 4734 Dec, Diabetes 250.00 [place] [id number] [place] [address] 56087- 5258 Nov, Diabetes 250.00 [place] [id number] [place] [address] 51340- 9508 Nov, [place] [id number] [place] [address] 21526- 2683 Oct, Diabetes mellitus type 1 250.01 and High risk medication use V58.69 [place] [id number] [place] [address] 04129- 7552 Oct, [facility] [place] [facility] [address] [id number] [place] [address]- 8553 September, [facility] [place] [facility] [address] [id number] [place] [address]- 6557 Aug, [facility] [place] [facility] [address] [id number] [place] [address]- 8812 Aug, [facility] [place] [facility] [address] [id number] [place] [address]- 5971 Jul, [facility] [place] [facility] [address] [id number] [place] [address]- 5882 Jul, [facility] [place] [facility] [address] [id number] [place] [address]- 5197 Jun, [facility] [place] [facility] [address] [id number] [place] [address]- 5976 Jun, [facility] [place] [facility] [address] [id number] [place] [address]- 5337 Jun, [facility] [place] [facility] [address] [id number] [place] [address]- 8826 May, [facility] [place] [facility] [address] [id number] [place] [address]- 0693 May, [facility] [place] [facility] [address] [id number] [place] [address]- 5129 Apr, [facility] [place] [facility] [address] [id number] [place] [address]- 2156 Apr, [facility] [place] [facility] [address] [id number] [place] [address]- 9379 Apr, [facility] [place] [facility] [address] [id number] [place] [address]- 3276 Apr, [facility] [place] [facility] [address] [id number] [place] [address]- 0111 Apr, [facility] [place] [facility] [address] [id number] [place] [address]- 3616 Apr, [facility] [place] [facility] [address] [id number] [place] [address]- 7900 Feb, [facility] [place] [facility] [address] [id number] [place] [address]- 8019 Feb, [facility] [place] [facility] [address] [id number] [place] [address]- 8735 Feb, [facility] [place] [facility] [address] [id number] [place] [address]- 4441 Feb, [facility] [place] [facility] [address] [id number] [place] [address]- 8338 Dec, [facility] [place] [facility] [address] [id number] [place] [address]- 2126 Dec, [facility] [place] [facility] [address] [id number] [place] [address]- 6424 Nov, [facility] [place] [facility] [address] [id number] [place] [address]- 2976 Nov, [facility] [place] [facility] [address] [id number] [place] [address]- 2430 Oct, [facility] [place] [facility] [address] [id number] [place] [address]- 8351 Oct, [facility] [place] [facility] [address] [id number] [place] [address]- 1930 Oct, [facility] [place] [facility] [address] [id number] [place] [address]- 6343 Oct, [facility] [place] [facility] [address] [id number] [place] [address]- 5175 Oct, [facility] [place] [facility] [address] [id number] [place] [address]- 5260 Oct, [facility] [place] [facility] [address] [id number] [place] [address]- 7339 September, [facility] [place] [facility] [address] [id number] [place] [address]- 0625 September, [facility] [address] [id number] [place] [address]- 8702 September, [facility] [place] [facility] [address] [id number] [place] [address]- 4540 September, [facility] [address] [id number] [place] [address]- 1528 September, [facility] [address] [id number] [place] [address]- 7343 September, [facility] [address] [id number] [place] [address]- 6023 Aug, [facility] [place] [facility] [address] [id number] [place] [address]- 0863 Aug, [facility] [address] [id number] [place] [address]- 8885 Aug, [facility] [address] [id number] [place] [address]- 6285 Aug, [facility] [place] [facility] [address] [id number] [place] [address]- 7927 Aug, [facility] [address] [id number] [place] [address]- 0742 Aug, [facility] [place] [facility] [address] [id number] [place] [address]- 3442 Jul, [facility] [place] [facility] [address] [id number] [place] [address]- 9828 Jul, [facility] [place] [facility] [address] [id number] [place] [address]- 9702 Jul, [facility] [place] [facility] [address] [id number] [place] [address]- 0826 Jul, [facility] [place] [facility] [address] [id number] [place] [address]- 6164 May, [facility] [place] [facility] [address] [id number] [place] [address]- 5512 May, [facility] [place] [facility] [address] [id number] [place] [address]- 8613 Apr, [facility] [place] [facility] [address] [id number] [place] [address]- 1774 Apr, [facility] [place] [facility] [address] [id number] [place] [address]- 4165 Apr, [facility] [place] [facility] [address] [id number] [place] [address]- 0869 Apr, [facility] [place] [facility] [address] [id number] [place] [address]- 0835 Apr, [facility] [place] [facility] [address] [id number] [place] [address]- 2939 Apr, [facility] [place] [facility] [address] [id number] [place] [address]- 9109 Feb, [facility] [place] [facility] [address] [id number] [place] [address]- 8514 Feb, [facility] [place] [facility] [address] [id number], [place] [address]- 3522 Feb, [facility] [place] [facility] [address] [id number], [place] [address]- 8868 Feb, [facility] [place] [facility] [address] [id number], [place] [address]- 5513 Feb, [facility] [place] [facility] [address] [id number] [place] [address]- 1258 Feb, [facility] [place] [facility] [address] [id number], [place] [address]- 4313 Feb, [facility] [place] [facility] [address] [id number], [place] [address]- 4208 Feb, [facility] [place] [facility] [address] [id number] [place] [address]- 2624 25 Jan, 2013 [facility] [address] [id number] [place] [address]- 1831 23 Jan, 2013 [facility] [address] [id number] [place] [address] Jan, [facility] [address] [id number] [place] [address] Jan, [facility] [address] [id number] [place] [address] Dec, [facility] [address] [id number] [place] [address] Dec, [facility] [address] [id number] [place] [address] Dec, [facility] [address] [id number] [place] [address] Nov, [facility] [address] [id number] [place] [address] 2018 Nov, [facility] [address] [id number] [place] [address] Oct, [facility] [address] [id number] [place] [address] September, [facility] [address] [id number] [place] [address] September, [facility] [address] [id number] [place] [address] September, [facility] [address] [id number] [place] [address] Aug, [facility] [address] [id number] [place] [address] 16 Aug, 2012 [facility] [address] [id number] [place] [address] 15 Aug, 2012 [facility] [address] [id number] [place] [address] Jul, [facility] [address] [id number] [place] [address] Jul, [facility] [place] [facility] [address] [id number] [place] [address] Jun, [facility] [place] [facility] [address] [id number] [place] [address] Jun, [facility] [address] [id number] [place] [address] Jun, [facility] [address] [id number] [place] [address] Jun, [facility] [address] [id number] [place] [address] May, [facility] [address] [id number] [place] [address] May, [facility] [address] [id number] [place] [address] Apr, [facility] [address] [id number] [place] [address] Apr, [facility] [address] [id number] [place] [address]80 Apr, [facility] [address] [id number] [place] [address] Apr, [facility] [place] [facility] [address] [id number] [place] [address] Apr, [facility] [place] [facility] [address] [id number] [place] [address] Apr, [facility] [place] [facility] [address] [id number] [place] [address] Mar, [facility] [place] [facility] [address] [id number] [place] [address] Mar, [facility] [place] [facility] [address] [id number] [place] [address] Mar, [facility] [place] [facility] [address] [id number] [place] [address] Mar, [facility] [place] [facility] [address] [id number] [place] [address] Mar, [facility] [place] [facility] [address] [id number] [place] [address] Mar, [facility] [place] [facility] [address] [id number] [place] [address] Feb, [facility] [place] [facility] [address] [id number] [place] [address] Feb, [facility] [place] [facility] [address] [id number] [place] [address] Feb, [facility] [place] [facility] [address] [id number] [place] [address] Feb, [facility] [place] [facility] [address] [id number] [place] [address] Feb, [facility] [facility] [address] [id number] [place] [address] Jan, [facility] [place] [facility] [address] [id number] [place] [address] Jan, [facility] [place] [facility] [address] [id number] [place] [address] Jan, [facility] [place] [facility] [address] [id number] [place] [address] Dec, [facility] [place] [facility] [address] [id number] [place] [address] Dec, [facility] [place] [facility] [address] [id number] [place] [address] Nov, [facility] [place] [facility] [address] [id number] [place] [address] 22 Oct, 2011 [facility] [address] [id number] [place] [address] Oct, [facility] [place] [facility] [address] [id number] [place] [address] Oct, [facility] [address] [id number] [place] [address] Oct, [facility] [address] [id number] [place] [address] Oct, [facility] [address] [id number] [place] [address] September, [facility] [address] [id number] [place] [address] 18 Aug, 2011 [facility] [address] [id number] [place] [address] 18 Aug, 2011 [facility] [address] [id number] [place] [address] 17 Aug, 2011 [facility] [address] [id number] [place] [address] 16 Aug, 2011 [facility] [address] [id number] [place] [address] 13 Aug, 2011 [facility] [address] [id number] [place] [address] 11 Aug, 2011 [facility] [address] [id number] [place] [address] 11 Aug, 2011 [facility] [place] [facility] [address] [id number] [place] [address] 05 Aug, 2011 [facility] [address] [id number] [place] [address] 05 Aug, 2011 [facility] [address] [id number] [place] [address] Jul, [facility] [place] [facility] [address] [id number] [place] [address] 20 Jul, 2011 [facility] [place] [address] [id number] [place] [address] 28[address] 20 Jul, 2011 [facility] [place] [address] [id number] [place] [address] 67[address] 17 Jul, 2011 [facility] [place] [facility] [address] [id number] [place] [address] 08 Jul, 2011 [facility] [address] [id number] [place] [address] 15 Jun, 2011 [facility] [address] [id number] [place] [address]66 14 Jun, 2011 [facility] [place] [facility] [address] [id number] [place] [address] 7976 08 Jun, 2011 [facility] [address] [id number] [place] [address] 1578 08 Jun, 2011 [facility] [address] [id number] [place] [address] May, [facility] [address] [id number] [place] [address] May, [facility] [address] [id number] [place] [address] May, [facility] [address] [id number] [place] [address] May, [facility] [address] [id number] [place] [address]- [address]76 May, [facility] [place] [address] [id number] [place] [address]- [address]246 04 May, 2011 [facility] [address] [id number] [place] [address]- 267[address] May, [facility] [place] [facility] [address] [id number] [place] [address] Apr, [facility] [address] [id number] [place] 13 Apr, 2011 [facility] [address] [id number] [place] [address]- 7[address] 13 Apr, 2011 [facility] [address] [id number] [place] [address]- 8926 13 Apr, 2011 [facility] [address] [id number] [place] [address] 13 Apr, 2011 [facility] [address] [id number] [place] [address]70 Apr, [facility] [address] [id number] [place] [address] Apr, [facility] [address] [id number] [place] [address] Apr, [facility] [address] [id number] [place] [address]- 2785 Apr, [facility] [address] [id number] [place] [address] Apr, [facility] [address] [id number] [place] [address] Mar, [facility] [address] [id number] [place] [address] 95[address] Mar, [facility] [address] [id number] [place] [address] Feb, [facility] [address] [id number] [place] [address]- [address]26 16 Jun, 2010 [facility] [address] [id number] [place] [address]45 06 Apr, 2010 [facility] [address] [id number] [place] [address] Feb, [facility] [id number] [place] [address] Feb, [facility] [id number] [place] [address] Feb, [facility] [id number], [place] [address] Apr, [facility] [id number] [place] [address] Apr, [facility] [id number], [place] [address] Mar, [facility] [id number], [place] [address] Mar, [facility] [id number] [place] [address]45 Mar, [facility] [id number] [place] [address] Feb, [facility] [id number], [place] [address] Feb, [facility] [id number], [place] [address] Feb, [facility] [id number], [place] [address] Jan, IMMUNIZATIONS No Known Immunizations SOCIAL HISTORY Never Assessed REASON FOR VISIT [facility] PLAN OF CARE Activity Details Follow Up Will meet with Pt. after test administrations to review results. Reason: VITAL SIGNS MEDICATIONS Medication Instructions Dosage Frequency Start Date End Date Duration Status Paroxetine HCl 40 MG TAKE 1 TABLET ONE TIME DAILY IN THE MORNING 90 Active Clonidine HCl 0.2 MG 1 tablet 12h 90 Active Amlodipine Besylate 10 MG TAKE 1 TABLET ONE TIME DAILY (APPOINTMENT NEEDED FOR FURTHER REFILLS) 90 Active Metformin HCl 500 mg Orally 2 times a day 3 tablets 12h Active Lovastatin 20 mg 1 tablet with a meal 24h Active Depo-Testosterone 100 MG/ML Intramuscular 2 times a month 1 ml Feb, 140 days Active Actos 30 MG Orally Once a day 1 tablet 24h 30 days Active Topamax 50 mg 1 tablet 12h 90 Active Potassium Chloride Pati ER 10 MEQ 1 tablet with food 24h Active Enalapril Maleate 5 mg 1 tablet 12h Active Clonazepam 1 MG Orally 2 times a day 2 tablets 12h 24 Jun, 2014 28 days Active Warfarin Sodium 6 MG TAKE 1 TABLET EVERY DAY 90 Active Blood Glucose Test Strip Test Strips as directed Nov, Active [place] 5-325 MG Orally every 6 hrs 1 tablet 6h Feb, 28 days Active RESULTS No Results PROCEDURES Procedure Date Ordered Result Body Site [facility] VIS[facility] MENTAL HEALTH ESTAB PT Mar 13, 2018 Psych diagnostic evaluation, established patient Mar 13, 2018 INSTRUCTIONS MEDICATIONS ADMINISTERED No Known Medications [...]
--- OUTSIDE RECORDS SUMMARY | 2018-04-28 05:15 | XMS REPORT ---
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 Active 291598861 Problem Anxiety F41.9 Active 44532744 Problem Other chronic pain G89.29 Active 58075938 Problem Controlled type 2 diabetes mellitus without complication, without long -term current use of insulin E11.9 Active 550200866 Problem 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 Active 707140621 Problem Memory loss R41.3 Active 184754396 Problem Hypogonadism in male E29.1 Active 80703032 Problem Type 2 diabetes mellitus without complications E11.9 Active 874691408 Problem Hammertoe of right foot M20.41 Active 725955939 Problem Diabetes type 2, controlled E11.9 Active 53330922 Problem Hypertriglyceridemia E78.1 Active 797871469 Problem Knee pain, right M25.561 Active 89144849 Problem Chronic fatigue R53.82 Active 96998021 ALLERGIES Substance Reaction Event Type Date Status Sulfamethoxazole-Trimethoprim Unknown Drug Allergy Feb, Active ENCOUNTERS Encounter Location Date Diagnosis [facility] [address] [facility] [id number], [place] [address] Mar, [facility] [address] 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 [id number], [place] [address] 2546 18 Feb, 2018 Medicare welcome exam Z00.00 and Type 2 diabetes mellitus without complications E11.9 [facility] [address] [facility] [id number] [place] [address] 2546 29 Jan, 2018 Hypogonadism in male E29.1 [facility] [address] [facility] [id number] [place] [address] 2546 21 Jan, 2018 Medicare welcome exam Z00.00 and Type 2 diabetes mellitus without complications E11.9 [facility] [address] [facility] [id number], [place] [address] 2546 11 Jan, 2018 Hypogonadism in male E29.1 [facility] [address] [facility] [id number] [place] [address] 2546 Jan, [facility] [address] [facility] [id number], [place] [address] 2546 Dec, Hypogonadism in male E29.1 [facility] [address] [facility] [id number] [place] [address] 2546 Dec, Medicare welcome exam Z00.00 [facility] [address] [facility] [id number], [place] [address] 2546 Dec, Hypogonadism in male E29.1 [facility] [address] [facility] [id number], [place] [address] 2546 Dec, [facility] [address] [facility] [id number], [place] [address] 2546 Nov, Hypogonadism in male E29.1 [facility] [address] [facility] [id number], [place] [address] 2546 Nov, Type 2 diabetes mellitus without complications E11.9 and History of Coumadin therapy Z92.29 [facility] [address] [facility] [id number], [place] [address] 25[address] 18 Nov, 2017 Medicare welcome exam Z00.00 [facility] [address], [place] [address] 12 Nov, 2017 Type 2 diabetes mellitus without complications E11.9 ; History of Coumadin therapy Z92.29 and Hypogonadism in male E29.1 [facility] [address]00565100[place], [place] [address] 1628 06 Nov, 2017 [facility] [address]00565[address], [place] [address] 8470 Oct, [facility] [address]65[address], [place] [address] 1227 15 Oct, 2017 Diabetes type 2, controlled E11.9 [facility] [address] [place] [address] 06782- 7781 15 Oct, 2017 Medicare welcome exam Z00.00 [facility] [address]00565[address], [place] [address] 3649 Oct, Hypogonadism in male E29.1 [facility] [address]65[address], [place] [address] 09 Oct, 2017 [facility] [id number] [place] [address] 76504- 3269 September, Hypogonadism in male E29.1 [facility] [address], [place] [address] 6308 September, Medicare welcome exam Z00.00 [facility] [address], [place] [address] 9996 September, Hypogonadism in male E29.1 [facility] [address], [place] [address] 5096 Aug, Other chronic pain G89.29 ; Memory loss R41.3 ; Controlled type 2 diabetes mellitus without complication, without long-term current use of insulin E11.9 and Chronic major depressive disorder, recurrent episode F33.9 [facility] [address]65[address], [place] [address] 5[address] Aug, Medicare welcome exam Z00.00 [facility] [address], [place] [address] 9581 Aug, [facility] [address], [place] [address] Aug, Hypogonadism in male E29.1 [facility] [id number] [place] [address] 34767- 1990 Jul, [facility] [address] [place] [address] 79310- 8430 Jul, Hypogonadism in male E29.1 [facility] [id number] [place] [address] 22512- 2949 Jul, [facility] [id number] [place] [address] 65006 -4968 Jul, Hypogonadism in male E29.1 [facility] [address] [place] [address] 87659- 7056 Jul, Medicare welcome exam Z00.00 [facility] [id number] [place] [address] 61882- 3318 Jun, Medicare welcome exam Z00.00 [facility] [address] [place] [address] 39235 -0788 Jun, Fever R50.9 and Influenza B J10.1 [facility] [address], [place] [address]- 6284 Jun, Hypogonadism in male E29.1 [facility] [id number] [place] [address] 87313- 2424 09 Jun, 2017 Diabetes type 2, controlled E11.9 [facility] [address], [place] [address]- 6892 May, Hypogonadism in male E29.1 [facility] [id number] [place] [address] 56105- 1847 May, group home (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 Z79.01 [facility] [id number] [place] [address] 32235- 4906 Apr, Hypogonadism in male E29.1 [facility] [id number] [place] [address] 76479- 6416 Apr, [facility] [id number] [place] [address] 46277- 8473 Apr, Medicare welcome exam Z00.00 and 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 [place] [id number] [place] [address] 04420- 7289 Apr, Hypogonadism in male E29.1 [place] [id number] [place] [address] 63132- 4386 Mar, Diabetes type 2, controlled E11.9 [place] [id number] [place] [address] 09443- 0075 Mar, Hypogonadism in male E29.1 [facility] [id number] [place] [address] 34888- 5596 Mar, Hypogonadism in male E29.1 [place] [id number] [place] [address] 09576- 0284 Feb, Hypogonadism in male E29.1 [place] [id number] [place] [address] 55423- 0835 Feb, Malaise R53.81 [facility] [address] [id number], [place] [address]- 5786 Feb, [place] [id number] [place] [address] 61059- 8774 Feb, Diabetes type 2, controlled E11.9 [facility] [id number] [place] [address] 52686- 3645 Feb, Chronic fatigue R53.82 ; Malaise R53.81 and Moderate episode of recurrent major depressive disorder F33.1 [place] [id number] [place] [address] 42175- 1986 11 Jan, 2017 Diabetes type 2, controlled E11.9 [facility] [id number] [place] [address] 83166 2546 11 Jan, 2017 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.01 and 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 [place] [id number] [place] [address] 61259 2546 Dec, Diabetes type 2, controlled E11.9 and Hypertriglyceridemia E78.1 [place] [id number] [place] [address] 83965- 7436 Dec, Diabetes type 2, controlled E11.9 [place] [id number] [place] [address] 09616- 0413 Dec, High risk medication use Z79.899 and 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 [place] [id number] [place] [address] 20290- 9330 Dec, High risk medication use Z79.899 [place] [id number] [place] [address] 74688 2542 Nov, Diabetes type 2, controlled E11.9 [place] [id number] [place] [address] 72058 2549 Oct, Diabetes type 2, controlled E11.9 [place] [address] [place] [address] 63015 2546 September, Diabetes type 2, controlled E11.9 [place] [id number] [place] [address] 76735 2546 Aug, 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 [place] [address] [place] [address] 87540 2546 Aug, Hematoma of arm, right, initial encounter S40.021A and 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 [place] [id number] [place] [address] 35268- 6068 Aug, [facility] [address] [address]37 -9606 18 Aug, 2016 Cellulitis of right upper extremity L03.113 [place] [address] 76392- 5132 14 Aug, 2016 Diabetes type 2, controlled E11.9 [place] [address] 69419- 0479 Aug, Hammertoe of right foot M20.41 ; Hallux abducto valgus, left M20.12 and Onychomycosis B35.1 [place] [address] 42438- 8214 Aug, 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 [place] [id number] [place] [address] 01975- 1722 Aug, group home (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 Z79.01 [place] [address] 53470- 1901 Aug, group home (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 Z79.01 [facility] [place] [id number] [place] [address] 99465 -0545 Aug, Right shoulder pain M25.511 and Closed nondisplaced fracture of acromial end of right clavicle, initial encounter S42.034A [place] [id number] [place] [address] 20920- 0624 Jul, Diabetes type 2, controlled E11.9 [place] [address] 77628- 4963 03 Jun, 2016 Diabetes type 2, controlled E11.9 and group home (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 Z79.01 [place] [address] [place] [address]- 8174 May, [facility] [address], [place] [address]- 1229 Apr, [facility] [address] 2694 Mar, [facility] [address], [place] [address]- 0955 Feb, [facility] [address], [place] [address]- 6206 Dec, Diabetes type 2, controlled E11.9 [facility] [address] [place] 2098 Dec, [facility] [address], [place] [address]- 8454 Nov, [facility] [address], [place] [address]- 5154 Nov, Type 2 diabetes mellitus without complications E11.9 [facility] [address], [place] [address]- 1389 Oct, Type 2 diabetes mellitus without complications E11.9 [facility] [address], [place] [address]- 8789 Aug, [facility] [address], [place] [address]- 0467 Aug, Type 2 diabetes mellitus without complications E11.9 [facility] [id number], [place] [address]- 5349 Jun, Type 2 diabetes mellitus without complications E11.9 and 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 termination clerk use of antiplatelet drug Z79.02 [facility] [id number] 5727 May, [facility] [id number], [place] [address]- 7211 May, Diabetes type 2, controlled E11.9 [facility] [address] [place] [address] 73081- 0233 Apr, Diabetes type 2, controlled E11.9 [facility] [id number] [place] [address] 92679- 3116 Mar, Diabetes type 2, controlled E11.9 ; Knee pain, right M25.561 ; Other chronic pain G89.29 and Medication monitoring encounter Z51.81 [facility] [id number] [place] [address] 79135- 0889 Feb, Type 2 diabetes mellitus without complications E11.9 ; High risk medication use Z79.899 and Anxiety F41.9 [facility] [id number] [place] [address] 02958- 6238 Jan, Diabetes 250.00 [facility] [id number] [place] [address] 82223- 6556 Dec, Diabetes 250.00 [facility] [id number] [place] [address] 91476- 8914 Nov, Diabetes 250.00 [facility] [id number] [place] [address] 33902- 7226 Nov, [facility] [id number] [place] [address] 33709- 0280 Oct, Diabetes mellitus type 1 250.01 and High risk medication use V58.69 [facility] [id number] [place] [address] 01493- 6703 Oct, [facility] [id number] [place] [address] 16617- 8331 September, [facility] [id number] [place] [address] 01845- 6888 Aug, [facility] [id number] [place] [address] 22377- 6209 Aug, [facility] [id number] [place] [address] 40313- 6746 Jul, [facility] [place] [facility] [address] [id number] [place] [address]- 9733 Jul, [facility] [place] [facility] [address] [id number] [place] [address]- 8453 Jun, [facility] [place] [facility] [address] [id number] [place] [address]- 8691 Jun, [facility] [place] [facility] [address] [id number] [place] [address]- 2101 Jun, [facility] [place] [facility] [address] [id number] [place] [address]- 3276 May, [facility] [place] [facility] [address] [id number] [place] [address]- 2809 May, [facility] [place] [facility] [address] [id number] [place] [address]- 6369 Apr, [facility] [place] [facility] [address] [id number] [place] [address]- 7948 Apr, [facility] [place] [facility] [address] [id number] [place] [address]- 5752 Apr, [facility] [place] [facility] [address] [id number] [place] [address]- 2300 Apr, [facility] [place] [facility] [address] [id number] [place] [address]- 9893 Apr, [facility] [place] [facility] [address] [id number] [place] [address]- 0022 Apr, [facility] [place] [facility] [address] [id number] [place] 1292 Feb, [facility] [place] [facility] [address] [id number] [place] [address]- 8771 Feb, [facility] [place] [facility] [address] [id number] [place] [address]- 1831 Feb, [facility] [place] [facility] [address] [id number] [place] [address]- 3683 Feb, [facility] [place] [facility] [address] [id number] [place] [address]- 1014 Dec, [facility] [place] [facility] [address] [id number] [place] [address]- 1224 Dec, [facility] [place] [facility] [address] [id number] [place] [address]- 9280 Nov, [facility] [place] [facility] [address] [id number] [place] [address]- 6026 Nov, [facility] [place] [facility] [address] [id number] [place] [address]- 5805 Oct, [facility] [place] [facility] [address] [id number] [place] [address]- 2031 Oct, [facility] [place] [facility] [address] [id number] [place] [address]- 5472 Oct, [facility] [place] [facility] [address] [id number] [place] [address]- 0870 Oct, [facility] [place] [facility] [address] [id number] [place] [address]- 7542 Oct, [facility] [place] [facility] [address] [id number] [place] [address]- 0113 Oct, [facility] [place] [facility] [address] [id number] [place] [address]- 6478 September, [facility] [place] [facility] [address] [id number] [place] [address]- 3550 September, [facility] [place] [facility] [address] [id number] [place] [address]- 8848 September, [facility] [place] [facility] [address] [id number] [place] [address]- 2366 September, [facility] [place] [facility] [address] [id number] [place] [address]- 3506 September, [facility] [place] [facility] [address] [id number] [place] [address]- 9552 September, [facility] [place] [facility] [address] [id number] [place] [address]- 1331 Aug, [facility] [place] [facility] [address] [id number] [place] [address]- 8365 Aug, [facility] [place] [facility] [address] [id number] [place] [address]- 6889 Aug, [facility] [place] [facility] [address] [id number] [place] [address]- 4684 Aug, [facility] [place] [facility] [address] [id number] [place] [address]- 1440 Aug, [facility] [place] [facility] [address] [id number] [place] [address]- 3981 Aug, [facility] [place] [facility] [address] [id number] [place] [address]- 3778 Jul, [facility] [place] [facility] [address] [id number] [place] [address]- 7054 Jul, [facility] [place] [facility] [address] [id number] [place] [address]- 3622 Jul, [facility] [place] [facility] [address] [id number] [place] [address]- 5311 Jul, [facility] [place] [facility] [address] [id number] [place] [address]- 9499 May, [facility] [place] [facility] [address] [id number] [place] [address]- 2930 May, [facility] [place] [facility] [address] [id number] [place] [address]- 1024 Apr, [facility] [place] [facility] [address] [id number] [place] [address]- 6780 Apr, [facility] [place] [facility] [address] [id number] [place] [address]- 6528 04 Apr, 2012 [facility] [place] [facility] [address] [id number] [place] [address]- 3838 Apr, 2012 [facility] [place] [facility] [address] [id number] [place] [address]- 9509 Apr, [facility] [place] [facility] [address] [id number] [place] [address]- 4899 Apr, 2012 [facility] [place] [facility] [address] [id number] [place] [address]- 5874 Feb, [facility] [place] [facility] [address] [id number] [place] [address]- 4190 Feb, [facility] [place] [facility] [address] [id number] [place] [address]- 9830 Feb, [facility] [place] [facility] [address] [id number] [place] [address]- 7086 Feb, [facility] [place] [facility] [address] [id number] [place] [address]- 0640 Feb, [facility] [place] [facility] [address] [id number] [place] [address]- 0817 Feb, [facility] [place] [facility] [address] [facility] [id number] [place] [address]- 1760 Feb, [facility] [place] [facility] [address] [id number] [place] [address]- 9257 Feb, [facility] [place] [facility] [address] [id number], [place] [address]- 3695 Jan, 2012 [facility] [place] [facility] [address] [id number] [place] [address]- 5415 23 Jan, 2012 [facility] [place] [facility] [address] [id number] [place] [address]- 3056 19 Jan, 2012 [facility] [place] [facility] [address] [id number], [place] [address]- 3629 03 Jan2012 [facility] [place] [facility] [address] [id number] [place] [address]- 0997 Dec, [facility] [address] [id number] [place] [address] Dec, [facility] [place] [facility] [address] [id number] [place] [address] Dec, [facility] [address] [id number] [place] [address] Nov, [facility] [place] [facility] [address] [id number] [place] [address] Nov, [facility] [place] [facility] [address] [id number] [place] [address] Oct, [facility] [address] [id number] [place] [address] September, [facility] [address] [id number] [place] [address] September, [facility] [address] [id number] [place] [address] September, [facility] [address] [id number] [place] [address] Aug, [facility] [address] [id number] [place] [address] Aug, [facility] [address] [id number] [place] [address] Aug, [facility] [place] [facility] [address] [id number] [place] [address] Jul, [facility] [place] [facility] [address] [id number] [place] [address] Jul, [facility] [place] [facility] [address] [id number] [place] [address] Jun, [facility] [place] [facility] [address] [id number] [place] [address] Jun, [facility] [address] [id number] [place] [address] Jun, [facility] [place] [facility] [address] [id number] [place] [address] Jun, [facility] [address] [facility] [id number] [place] [address] May, [facility] [place] [facility] [address] [id number] [place] [address] May, [facility] [address] [id number] [place] [address] Apr, [facility] [address] [id number] [place] [address] Apr, [facility] [address] [facility] [id number] [place] [address] Apr, [facility] [place] [facility] [address] [id number] [place] [address] Apr, [facility] [address] [id number] [place] [address] Apr, [facility] [place] [facility] [address] [facility] [id number] [place] [address] Apr, [facility] [address] [id number], [place] [address] Mar, [facility] [place] [facility] [address] [id number], [place] [address] Mar, [facility] [place] [facility] [address] [id number] [place] [address] Mar, [facility] [place] [facility] [address] [id number], [place] [address] Mar, [facility] [place] [facility] [address] [facility] [id number] [place] [address] Mar, [facility] [place] [facility] [address] [id number] [place] [address] Mar, [facility] [place] [facility] [address] [id number] [place] [address] Feb, [facility] [place] [facility] [address] [id number] [place] [address] Feb, [facility] [place] [facility] [address] [id number] [place] [address] Feb, [facility] [place] [facility] [address] [id number] [place] [address] Feb, [facility] [place] [facility] [address] [id number] [place] [address] Feb, [facility] [place] [facility] [address] [id number] [place] [address] Jan, [facility] [place] [facility] [address] [id number] [place] [address] Jan, [facility] [place] [facility] [address] [id number] [place] [address] Jan, [facility] [place] [facility] [address] [id number] [place] [address] Dec, [facility] [place] [facility] [address] [id number] [place] [address] Dec, [facility] [place] [facility] [address] [id number] [place] [address] Nov, [facility] [place] [facility] [address] [id number] [place] [address] Oct, [facility] [place] [facility] [address] [id number] [place] [address] Oct, [facility] [place] [facility] [address] [id number] [place] [address] Oct, [facility] [place] [facility] [address] [id number] [place] [address] Oct, [facility] [place] [facility] [address] [id number] [place] [address] 06 Oct, 2011 [facility] [place] [facility] [address] [id number] [place] [address] September, [facility] [place] [facility] [address] [id number] [place] [address] 18 Aug, 2011 [facility] [place] [facility] [address] [id number] [place] [address] 18 Aug, 2011 [facility] [place] [facility] [address] [id number] [place] [address] 17 Aug, 2011 [facility] [place] [facility] [address] [id number] [place] [address] 16 Aug, 2011 [facility] [place] [facility] [address] [id number] [place] [address] 13 Aug, 2011 [facility] [place] [facility] [address] [id number] [place] [address] Aug, [facility] [place] [facility] [address] [id number] [place] [address] Aug, [facility] [place] [facility] [address] [id number] [place] [address] 05 Aug, 2011 [facility] [place] [facility] [address] [id number] [place] [address] Aug, [facility] [place] [facility] [address] [id number], [place] [address] Jul, [facility] [place] [facility] [address] [id number] [place] [address] Jul, [facility] [place] [facility] [address] [id number] [place] [address] Jul, [facility] [place] [facility] [address] [id number] [place] [address] 17 Jul, 2011 [facility] [place] [facility] [address] [id number] [place] [address] 08 Jul, 2011 [facility] [address] [id number] [place] [address] 15 Jun, 2011 [facility] [place] [facility] [address] [id number] [place] [address] 14 Jun, 2011 [facility] [address] [id number] [place] [address] 08 Jun, 2011 [facility] [place] [facility] [address] [id number] [place] [address] 08 Jun, 2011 [facility] [place] [facility] [address] [id number] [place] [address] May, [facility] [address] [id number] [place] [address] 13 May, 2011 [facility] [address] [id number] [place] [address] May, [facility] [address] [id number] [place] [address] 08 May, 2011 [facility] [address] [id number] [place] [address] May, [facility] [address] [id number] [place] [address] 04 May, 2011 [facility] [address] [id number] [place] [address] May, [facility] [address] [id number] [place] [address] Apr, [facility] [place] [facility] [address] [id number] [place] [address] Apr, [facility] [place] [facility] [address] [id number] [place] [address] Apr, [facility] [address] [id number] [place] [address] Apr, [facility] [place] [facility] [address] [id number] [place] [address] 13 Apr, 2011 [facility] [place] [facility] [address] [id number] [place] [address] Apr, [facility] [place] [facility] [address] [id number] [place] [address] Apr, [facility] [place] [facility] [address] [id number] [place] [address] Apr, [facility] [place] [facility] [address] [id number] [place] [address] Apr, [facility] [place] [facility] [address] [id number] [place] [address] Apr, [facility] [place] [facility] [address] [id number] [place] [address] Mar, [facility] [place] [facility] [address] [id number] [place] [address] Mar, [facility] [place] [facility] [address] [id number] [place] [address] Feb, [facility] [place] [facility] [address] [id number] [place] [address] Jun, [facility] [place] [facility] [address] [id number], [place] [address] Apr, [facility] [place] [facility] [address] [id number], [place] [address] Feb, [facility] [place] [facility] [address] [id number] [place] [address] Feb, [facility] [place] [facility] [address] [id number] [place] [address] Feb, [facility] [place] [facility] [address] [id number], [place] [address] Apr, [facility] [place] [facility] [address] [id number], [place] [address] Apr, [facility] [address] [id number], [place] [address] Mar, [facility] [id number], [place] [address] Mar, [facility] [id number] [address] Mar, [facility] [id number], [place] [address] Feb, [facility] [id number] [address] Feb, [facility] [id number] [address] Feb, [facility] [address] [id number] [address] [address] Jan, IMMUNIZATIONS No Known Immunizations SOCIAL HISTORY Never Assessed REASON FOR VISIT Anxiety Pt in for follow up and medication refills HAROON Jimenez PLAN OF CARE Activity Details Follow Up 4 Weeks Reason:anxiety VITAL SIGNS Height 69 in 2018-02-27 Weight 240.6 lbs 2018-02-27 Temperature 98.0 degrees Fahrenheit 2018-02-27 Heart Rate 92 bpm 2018-02-27 Respiratory Rate 18 2018-02-27 BMI 35.53 kg/m2 2018-02-27 Blood pressure systolic 124 mmHg 2018-02-27 Blood pressure diastolic 82 mmHg 2018-02-27 MEDICATIONS Medication Instructions Dosage Frequency Start Date End Date Duration Status Metformin HCl 500 mg Orally 2 times a day 3 tablets 12h Active Enalapril Maleate 5 mg 1 tablet 12h Active Warfarin Sodium 6 MG TAKE 1 TABLET EVERY DAY 90 Active Paroxetine HCl 40 MG TAKE 1 TABLET ONE TIME DAILY IN THE MORNING 90 Active Potassium Chloride Pati ER 10 MEQ 1 tablet with food 24h Active Actos 30 MG Orally Once a day 1 tablet 24h 30 days Active Depo-Testosterone 100 MG/ML Intramuscular 2 times a month 1 ml Feb, 140 days Active Clonidine HCl 0.2 MG 1 tablet 12h 90 Active Blood Glucose Test Strip Test Strips as directed Nov, Active Amlodipine Besylate 10 MG TAKE 1 TABLET ONE TIME DAILY (APPOINTMENT NEEDED FOR FURTHER REFILLS) 90 Active [place] 5-325 MG Orally every 6 hrs 1 tablet 6h Feb, 28 days Active Lovastatin 20 mg 1 tablet with a meal 24h Active Topamax 50 mg 1 tablet 12h 90 Active Clonazepam 1 MG Orally 2 times a day 2 tablets 12h 24 Jun, 2014 28 days Active RESULTS Name Result Date Reference Range A1C (IN HOUSE) 2018-02-27 A1C IN HOUSE 6.8 4.3 - 5.6 % Previous A1c 7.2 Lot [id number] Exp date 07/2019 INR (IN HOUSE) 2018-02-27 INR 1.4 1.10 - 3.30 PREVIOUS INR 2.6 CURRENT COUMADIN DOSE NEW COUMADIN DOSE Lot # [id number] Exp date 03-05-2018 PROCEDURES Procedure Date Ordered Result Body Site [facility] VISIT ESTABLISHED PATIENT Feb 27, 2018 PROTHROMBIN TIME Feb 27, 2018 GLYCATED HEMOGLOBIN TEST Feb 27, 2018 INSTRUCTIONS MEDICATIONS ADMINISTERED No Known Medications [...]
--- OUTSIDE RECORDS SUMMARY | 2018-04-28 05:15 | XMS REPORT ---
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 Z79.01 Active 445496311 Problem Anxiety F41.9 Active 38523636 Problem Other chronic pain G89.29 Active 04846433 Problem Controlled type 2 diabetes mellitus without complication, without long -term current use of insulin E11.9 Active 446157980 Problem manager intermediate 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 Active 086130942 Problem Memory loss R41.3 Active 918012158 Problem Hypogonadism in male E29.1 Active 35182540 Problem Type 2 diabetes mellitus without complications E11.9 Active 248987183 Problem Hammertoe of right foot M20.41 Active 303930173 Problem Diabetes type 2, controlled E11.9 Active 21531366 Problem Hypertriglyceridemia E78.1 Active 709874911 Problem Knee pain, right M25.561 Active 80801349 Problem Chronic fatigue R53.82 Active [id number] ALLERGIES No Information ENCOUNTERS Encounter Location Date Diagnosis [facility] [address] [facility] [id number] [address] Mar, [facility] [address], [place] [address] Mar, [facility] [address], [place] [address] Mar, [facility] [id number] [address] Feb, Controlled type 2 diabetes mellitus without complication, without long-term current use of insulin E11.9 ; Anxiety F41.9 ; Diabetes type 2 , controlled E11.9 and group home 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 [facility] [address] [id number] [address] 18 Feb, 2018 Medicare welcome exam Z00.00 and Type 2 diabetes mellitus without complications E11.9 [facility] [address] [facility] [id number] [address] 29 Jan, 2018 Hypogonadism in male E29.1 [facility] [address], [place] [address] Jan, Medicare welcome exam Z00.00 and Type 2 diabetes mellitus without complications E11.9 [facility] [address], [place] [address] 11 Jan, 2018 Hypogonadism in male E29.1 [facility] [address], [place] [address] Jan, [facility] [address], [place] [address] Dec, Hypogonadism in male E29.1 [facility] [address], [place] [address] 10[address] Dec, Medicare welcome exam Z00.00 [facility] [address], [place] [address] 8698 Dec, Hypogonadism in male E29.1 [facility] [address], [place] [address] Dec, [facility] [address] [id number], [place] [address] 0146 Nov, Hypogonadism in male E29.1 [facility] [address] [id number], [place] [address] 7346 Nov, Type 2 diabetes mellitus without complications E11.9 and History of Coumadin therapy Z92.29 [facility] [address], [place] [address]46 18 Nov, 2017 Medicare welcome exam Z00.00 [facility] [address], [place] [address] 2546 12 Nov, 2017 Type 2 diabetes mellitus without complications E11.9 ; History of Coumadin therapy Z92.29 and Hypogonadism in male E29.1 [facility] [address], [place] [address] 06 Nov, 2017 [facility] [id number] [address] 3166 Oct, [facility] [address], [place] [address] 8064 Oct, Diabetes type 2, controlled E11.9 [facility] [address], [place] [address] 9507 Oct, Medicare welcome exam Z00.00 [facility] [address], [place] [address] 9049 Oct, Hypogonadism in male E29.1 [facility] [address], [place] [address] Oct, [facility] [address], [place] [address] 7[address] September, Hypogonadism in male E29.1 [facility] [address] [id number] [address] 7342 September, Medicare welcome exam Z00.00 [facility] [address], [place] [address] 7825 September, Hypogonadism in male E29.1 [facility] [address], [place] [address] 2185 Aug, Other chronic pain G89.29 ; Memory loss R41.3 ; Controlled type 2 diabetes mellitus without complication, without long-term current use of insulin E11.9 and Chronic major depressive disorder, recurrent episode F33.9 [facility] [address], [place] [address] 5[address] 11 Aug, 2017 Medicare welcome exam Z00.00 [facility] [address], [place] [address] 9585 09 Aug, 2017 [facility] [id number] [place] [address] -[address] 07 Aug, 2017 Hypogonadism in male E29.1 [facility] [id number] [place] [address] 97449- 8080 27 Jul, 2017 [facility] [id number] [place] [address] 63607- 0952 27 Jul, 2017 Hypogonadism in male E29.1 [facility] [id number] [place] [address]- 0576 Jul, [facility] [address] [place] [address] Jul, Hypogonadism in male E29.1 [facility] [address] [place] [address]3494- 9856 09 Jul, 2017 Medicare welcome exam Z00.00 [facility] [address], [place] [address]- 2511 22 Jun, 2017 Medicare welcome exam Z00.00 [facility] [address], [place] [address] 19 Jun, 2017 Fever R50.9 and Influenza B J10.1 [facility] [id number] [place] [address] 14178- 4326 13 Jun, 2017 Hypogonadism in male E29.1 [facility] [address], [place] [address]- 2233 09 Jun, 2017 Diabetes type 2, controlled E11.9 [facility] [address] [id number], [place] [address] 9215 May, Hypogonadism in male E29.1 [facility] [address] [id number], [place] [address] 0076 May, manager intermediate (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 Z79.01 [facility] [address], [place] [address]- 3966 Apr, Hypogonadism in male E29.1 [facility] [address] [id number], [place] [address] 1167 Apr, [place] [facility] [id number] [place] [address]- 5249 Apr, Medicare welcome exam Z00.00 and group home (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 Z79.01 [facility] [facility] [id number], [place] [address] 9419 Apr, Hypogonadism in male E29.1 [place] [facility] [id number], [place] [address] 4124 Mar, Diabetes type 2, controlled E11.9 [facility] [facility] [id number] [place] [address] 21113- 0244 Mar, Hypogonadism in male E29.1 [place] [address], [place] [address] 7657 Mar, Hypogonadism in male E29.1 [facility] [address], [place] [address]- 2480 Feb, Hypogonadism in male E29.1 [facility] [facility] [id number], [place] [address]- 5709 Feb, Malaise R53.81 [facility] [address], [place] [address]- 1342 Feb, [facility] [id number], [place] [address]- 3116 Feb, Diabetes type 2, controlled E11.9 [facility] [address], [place] [address]- 3655 Feb, Chronic fatigue R53.82 ; Malaise R53.81 and Moderate episode of recurrent major depressive disorder F33.1 [facility] [address], [place] [address]- 7109 Jan, Diabetes type 2, controlled E11.9 [facility] [id number] [place] [address]78- 4824 Jan, 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.01 and manager intermediate (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 Z79.01 [place] [id number] [place] [address] 37867- 7995 Dec, Diabetes type 2, controlled E11.9 and Hypertriglyceridemia E78.1 [place] [id number] [place] [address] 94607- 2636 Dec, Diabetes type 2, controlled E11.9 [facility] [id number] [place] [address] 74399- 0021 Dec, High risk medication use Z79.899 and manager intermediate (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 Z79.01 [address] [place] [address], [place] [address]- 9305 Dec, High risk medication use Z79.899 [address] [id number] [place] [address] 07992- 2946 Nov, Diabetes type 2, controlled E11.9 [facility] [address], [place] [address]- 6290 Oct, Diabetes type 2, controlled E11.9 [facility] [address] [place] [address] 54866- 8915 September, Diabetes type 2, controlled E11.9 [facility] [address], [place] [address]- 0324 Aug, group home (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 Z79.01 [address] [place] [address] [place] [address] 11948- 6554 Aug, Hematoma of arm, right, initial encounter S40.021A and manager intermediate (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 Z79.01 [place] [place] [id number] [place] [address] 27196- 8674 Aug, [facility] [id number] [place] [address] 45919 -9630 Aug, Cellulitis of right upper extremity L03.113 [place] [id number] [place] [address] 22032- 8062 Aug, Diabetes type 2, controlled E11.9 [place] [id number] [place] [address] 32478- 4163 Aug, Hammertoe of right foot M20.41 ; Hallux abducto valgus, left M20.12 and Onychomycosis B35.1 [place] [id number] [place] [address] 61357- 9215 Aug, group home (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 Z79.01 [place] [place] [id number] [place] [address] 74493- 1419 Aug, group home (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 Z79.01 [place] [place] [id number] [place] [address] 54869- 5363 Aug, manager intermediate (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 Z79.01 [facility] [id number] [place] [address] 04511 -6712 Aug, Right shoulder pain M25.511 and Closed nondisplaced fracture of acromial end of right clavicle, initial encounter S42.034A [place] [id number] [place] [address] 37620- 8748 Jul, Diabetes type 2, controlled E11.9 [place] [place] [id number] [place] [address] 67060- 3674 Jun, Diabetes type 2, controlled E11.9 and group home (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 Z79.01 [facility] [address], [place] [address]- 1929 May, [facility] [address], [place] [address]- 6715 Apr, [facility] [id number] [place] [address] 82975- 0915 Mar, [facility] [id number] [place] [address] 370634- 6017 Feb, [facility] [id number] [place] [address] 638851- 8836 Dec, Diabetes type 2, controlled E11.9 [facility] [address], [place] [address]- 2616 Dec, [facility] [address], [place] [address]- 4087 Nov, [facility] [address] 7597 Nov, Type 2 diabetes mellitus without complications E11.9 [facility] [address] 0596 Oct, Type 2 diabetes mellitus without complications E11.9 [facility] [address], [place] [address]- 5675 Aug, [facility] [address] 4996 Aug, Type 2 diabetes mellitus without complications E11.9 [facility] [address], [place] [address]- 9806 Jun, Type 2 diabetes mellitus without complications E11.9 and 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 [facility] [address], [place] [address]- 2908 May, [facility] [address], [place] [address]- 7737 May, Diabetes type 2, controlled E11.9 [facility] [id number] [place] [address] 265590- 4213 Apr, Diabetes type 2, controlled E11.9 [facility] [id number] [place] [address] 23422- 5868 Mar, Diabetes type 2, controlled E11.9 ; Knee pain, right M25.561 ; Other chronic pain G89.29 and Medication monitoring encounter Z51.81 [facility] [id number] [place] [address] 72461- 9944 Feb, Type 2 diabetes mellitus without complications E11.9 ; High risk medication use Z79.899 and Anxiety F41.9 [facility] [id number] [place] [address] 85465- 5247 Jan, Diabetes 250.00 [facility] [id number] [place] [address] 96696- 0910 Dec, Diabetes 250.00 [facility] [id number] [place] [address] 09474- 7617 Nov, Diabetes 250.00 [facility] [id number] [place] [address] 52506- 5448 Nov, [facility] [id number] [place] [address] 65115- 7161 Oct, Diabetes mellitus type 1 250.01 and High risk medication use V58.69 [facility] [id number] [place] [address] 79608- 4592 Oct, [facility] [id number] [place] [address] 85231- 5632 September, [facility] [id number] [place] [address] 83516- 1778 Aug, [facility] [address] [facility] [id number] [place] [address]- 2141 Aug, [facility] [place] [facility] [address] [id number] [place] [address]- 3288 Jul, [facility] [place] [facility] [address] [id number] [place] [address]- 7226 Jul, [facility] [place] [facility] [address] [id number] [place] [address]- 4096 Jun, [facility] [place] [facility] [address] [id number] [place] [address]- 3249 Jun, [facility] [place] [facility] [address] [id number] [place] [address]- 3378 Jun, [facility] [place] [facility] [address] [id number] [place] [address]- 0905 May, [facility] [place] [facility] [address] [id number] [place] [address]- 3459 May, [facility] [place] [facility] [address] [id number] [place] [address]- 1861 Apr, [facility] [place] [facility] [address] [id number] [place] [address]- 4163 Apr, [facility] [place] [facility] [address] [id number] [place] [address]- 9417 Apr, [facility] [place] [facility] [address] [id number] [place] [address]- 3962 Apr, [facility] [place] [facility] [address] [id number] [place] [address]- 2546 Apr, [facility] [place] [facility] [address] [id number] [place] [address]- 2546 Apr, [facility] [place] [facility] [address] [id number] [place] [address]- 5033 Feb, [facility] [place] [facility] [address] [id number] [place] [address]- 9703 Feb, [facility] [place] [facility] [address] [id number] [place] 8052 Feb, [facility] [place] [facility] [address] [id number] [place] [address]- 1241 Feb, [facility] [place] [facility] [address] [id number] [place] [address]- 7136 Dec, [facility] [place] [facility] [address] [id number] [place] [address]- 5135 Dec, [facility] [place] [facility] [address] [id number] [place] [address]- 7124 Nov, [facility] [place] [facility] [address] [id number] [place] [address]- 1688 Nov, [facility] [place] [facility] [address] [id number] [place] [address]- 5773 Oct, [facility] [place] [facility] [address] [id number] [place] [address]- 4593 Oct, [facility] [place] [facility] [address] [id number] [place] [address]- 2532 Oct, [facility] [place] [facility] [address] [id number] [place] [address]- 7362 Oct, [facility] [place] [facility] [address] [id number] [place] [address]- 1303 Oct, [facility] [place] [facility] [address] [id number], [place] [address]- 9023 Oct, [facility] [place] [facility] [address] [id number] [place] [address]- 7239 September, [facility] [place] [facility] [address] [id number] [place] [address]- 9927 September, [facility] [place] [facility] [address] [id number] [place] [address]- 8846 September, [facility] [place] [facility] [address] [id number] [place] [address]- 2874 September, [facility] [place] [facility] [address] [id number] [place] [address]- 7641 September, [facility] [place] [facility] [address] [id number] [place] [address]- 7506 September, [facility] [place] [facility] [address] [id number] [place] [address]- 3603 Aug, [facility] [place] [facility] [address] [id number] [place] [address]- 3757 Aug, [facility] [place] [facility] [address] [id number] [place] [address]- 1840 Aug, [facility] [place] [facility] [address] [id number] [place] [address]- 6971 Aug, [facility] [place] [facility] [address] [id number] [place] [address]- 2549 Aug, [facility] [place] [facility] [address] [id number] [place] [address]- 3576 Aug, [facility] [place] [facility] [address] [id number] [place] [address]- 1848 Jul, [facility] [place] [facility] [address] [id number] [place] [address]- 0398 Jul, [facility] [place] [facility] [address] [id number] [place] [address]- 3401 Jul, [facility] [place] [facility] [address] [id number] [place] [address]- 9383 Jul, [facility] [place] [facility] [address] [id number] [place] [address]- 1819 May, [facility] [place] [facility] [address] [id number] [place] [address]- 3337 May, [facility] [place] [facility] [address] [id number] [place] [address]- 7070 Apr, [facility] [place] [facility] [address] [id number] [place] [address]- 1257 Apr, 2012 [facility] [place] [facility] [address] [id number] [place] [address]- 5791 Apr, [facility] [place] [facility] [address] [id number] [place] [address]- 2548 Apr, [facility] [place] [facility] [address] [id number] [place] [address]- 2547 Apr, [facility] [address] [id number] [place] [address]- 0173 Apr, [facility] [place] [facility] [address] [id number] [place] [address]- 1174 Feb, [facility] [address] [id number] [place] [address]- 1025 Feb, [facility] [address] [id number] [place] [address]- 2699 Feb, [facility] [place] [facility] [address] [id number] [place] [address]- 6432 Feb, [facility] [place] [facility] [address] [id number], [place] [address]- 0187 Feb, [facility] [place] [facility] [address] [id number] [place] [address]- 4291 Feb, [facility] [place] [facility] [address] [id number], [place] [address]- 2545 Feb, [facility] [place] [facility] [address] [id number] [place] [address] 2543 Feb, [facility] [place] [facility] [address] [id number] [place] [address]- 2549 Jan, [facility] [place] [facility] [address] [id number], [place] [address]- 2540 Jan, [facility] [place] [facility] [address] [id number], [place] [address]- 9646 Jan, [facility] [address] [id number] [place] 1262 Jan, [facility] [address] [id number] [place] [address] Dec, [facility] [address] [id number] [place] [address] Dec, [facility] [place] [facility] [address] [id number] [place] [address] Dec, [facility] [address] [id number] [place] [address] Nov, [facility] [address] [id number] [place] [address] Nov, [facility] [address] [id number] [place] [address] Oct, [facility] [address] [id number] [place] [address] September, [facility] [address] [id number] [place] [address] September, [facility] [address] [id number] [place] [address] September, [facility] [address] [id number] [place] [address] Aug, [facility] [place] [facility] [address] [id number] [place] [address] 16 Aug, 2012 [facility] [place] [facility] [address] [id number] [place] [address] 15 Aug, 2012 [facility] [place] [facility] [address] [id number] [place] [address] Jul, [facility] [place] [facility] [address] [id number] [place] [address] Jul, [facility] [place] [facility] [address] [id number] [place] [address] Jun, 2012 [facility] [address] [id number] [place] [address] Jun, [facility] [place] [facility] [address] [id number] [place] [address] Jun, 2012 [facility] [place] [facility] [address] [id number] [place] [address] Jun, [facility] [place] [facility] [address] [id number] [place] [address] May, [facility] [place] [facility] [address] [id number] [place] [address]- [address] May, [facility] [address] [id number] [place] [address] Apr, [facility] [address] [id number] [place] [address] Apr, [facility] [address] [id number] [place] [address] Apr, [facility] [place] [facility] [address] [id number] [place] [address] Apr, [facility] [place] [facility] [address] [id number] [place] [address] Apr[facility] [place] [facility] [address] [id number] [place] [address] Apr, [facility] [place] [facility] [address] [id number] [place] [address] 25[address] Mar, [facility] [place] [facility] [address] [id number] [place] [address] 25[address] Mar, [facility] [place] [facility] [address] [id number] [place] [address] 25[address] Mar, [facility] [place] [facility] [address] [id number] [place] [address] Mar, [facility] [place] [facility] [address] [id number] [place] [address] 25[address] Mar, [facility] [place] [facility] [address] [id number] [place] [address] Mar, [facility] [place] [facility] [address] [facility] [id number] [place] [address] 25[address] Feb, [facility] [place] [facility] [address] [id number] [place] [address] Feb, [facility] [place] [facility] [address] [id number] [place] [address] Feb, [facility] [place] [facility] [address] [id number] [place] [address] 25[address] Feb, [facility] [place] [facility] [address] [facility] [id number] [place] [address] Feb, [facility] [place] [facility] [address] [id number] [place] [address] Jan, [facility] [place] [facility] [address] [id number] [place] [address] Jan, [facility] [place] [facility] [address] [facility] [id number] [place] [address] 2546 Jan, [facility] [place] [facility] [address] [id number], [place] [address] Dec, [facility] [place] [facility] [address] [id number], [place] [address] 2546 Dec, [facility] [place] [facility] [address] [id number] [place] [address] Nov, [facility] [place] [facility] [address] [facility] [id number] [address] 25[address] Oct, [facility] [place] [facility] [address] [facility] [id number] [place] [address] Oct, [facility] [place] [facility] [address] [id number] [place] [address] 20 Oct, 2011 [facility] [place] [facility] [address] [id number] [place] [address] Oct, [facility] [place] [facility] [address] [id number] [place] [address] 06 Oct, 2011 [facility] [address] [id number] [place] [address] September, [facility] [place] [facility] [address] [id number] [place] [address] 18 Aug, 2011 [facility] [place] [facility] [address] [id number] [place] [address] 18 Aug, 2011 [facility] [place] [facility] [address] [id number] [place] [address] 17 Aug, 2011 [facility] [address] [id number] [place] [address] 16 Aug, 2011 [facility] [address] [id number] [place] [address] 1381 13 Aug, 2011 [facility] [place] [facility] [address] [id number] [place] [address] Aug, [facility] [place] [facility] [address] [id number] [place] [address] Aug, [facility] [place] [facility] [address] [id number] [place] [address] 05 Aug, 2011 [facility] [place] [facility] [address] [id number] [place] [address] 4[address] Aug, [facility] [place] [facility] [address] [id number] [place] [address] Jul, [facility] [place] [facility] [address] [id number] [place] [address] Jul, [facility] [place] [facility] [address] [id number] [place] [address] Jul, [facility] [place] [facility] [address] [id number] [place] [address] 17 Jul, 2011 [facility] [place] [facility] [address] [id number] [place] [address] 08 Jul, 2011 [facility] [place] [facility] [address] [id number] [place] [address] 15 Jun, 2011 [facility] [place] [facility] [address] [id number] [place] [address] 14 Jun, 2011 [facility] [place] [facility] [address] [id number] [place] [address] 08 Jun, 2011 [facility] [place] [facility] [address] [id number] [place] [address] 08 Jun, 2011 [facility] [place] [facility] [address] [id number] [place] [address] May, [facility] [place] [facility] [address] [id number] [place] [address] May, [facility] [place] [facility] [address] [id number] [place] [address] 8685 May, [facility] [place] [facility] [address] [id number] [place] [address] May, [facility] [place] [facility] [address] [id number] [place] [address] May, [facility] [place] [facility] [address] [id number] [place] [address] May, [facility] [place] [facility] [address] [id number] [place] [address] 15[address] May, [facility] [place] [facility] [address] [id number] [place] [address] Apr, [facility] [place] [facility] [address] [id number] [place] [address] Apr, [facility] [place] [facility] [address] [id number] [place] [address] 13 Apr, 2011 [facility] [address] [id number] [place] [address]27 13 Apr, 2011 [facility] [place] [facility] [address] [id number] [place] [address] 7898 Apr, [facility] [place] [facility] [address] [id number] [place] [address] 48[address] Apr, [facility] [place] [facility] [address] [id number] [place] [address] 3[address] Apr, [facility] [place] [facility] [address] [id number] [place] [address] 140[address] Apr, [facility] [place] [facility] [address] [id number] [place] [address] 79[address] Apr, [facility] [address] [id number] [place] [address] 24[address] Apr, [facility] [place] [facility] [address] [id number] [place] [address] Mar, [facility] [place] [facility] [address] [id number] [place] [address] Mar, [facility] [place] [facility] [address] [id number] [place] [address] Feb, [facility] [place] [facility] [address] [id number] [place] [address] Jun, [facility] [place] [facility] [address] [id number], [place] [address] Apr, [facility] [place] [facility] [address] [id number] [place] [address] 69[address] Feb, [facility] [place] [facility] [address] [id number], [place] [address] Feb, [facility] [place] [facility] [address] [id number], [place] [address] Feb, [facility] [place] [facility] [id number], [place] [address] Apr, [facility] [id number], [place] [address] Apr, [facility] [id number], [place] [address] Mar, [facility] [id number], [place] [address] Mar, [facility] [id number], [place] [address] Mar, [facility] [id number] [place] [address] Feb, [facility] [id number], [place] [address] Feb, [facility] [id number], [place] [address] Feb, [facility] [address] [id number] [address] Jan, IMMUNIZATIONS No Known Immunizations SOCIAL HISTORY Never Assessed REASON FOR VISIT Medication question/Referral PLAN OF CARE VITAL SIGNS MEDICATIONS Unknown [...]
--- OUTSIDE RECORDS SUMMARY | 2018-04-28 05:16 | XMS REPORT ---
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 Name Role Phone DAR DANIELS Unavailable PROBLEMS Type Condition ICD9-CM Code GSN53-PF Code Onset Dates Condition Status SNOMED Code Problem Hammertoe of right foot M20.41 Active 617820214 Problem Moderate episode of recurrent major depressive disorder F33.1 Active 636029835 Problem Hypertriglyceridemia E78.1 Active 931686326 Problem Other chronic pain G89.29 Active 59089205 Problem Memory loss R41.3 Active 397422126 Problem 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.01 Active 5631222 Problem Chronic fatigue R53.82 Active 72325613 Problem Controlled type 2 diabetes mellitus without complication, without long -term current use of insulin E11.9 Active 965496505 Problem Chronic major depressive disorder, recurrent episode F33.9 Active 88713194 Problem Knee pain, right M25.561 Active 41995575 Problem Diabetes type 2, controlled E11.9 Active 74108940 Problem Type 2 diabetes mellitus without complications E11.9 Active 489320321 Problem Hypogonadism in male E29.1 Active 44401465 Problem custodial (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 Z79.01 Active 553690762 ALLERGIES Substance Reaction Event Type Date Status Sulfamethoxazole-Trimethoprim Unknown Drug Allergy Jan, Active ENCOUNTERS Encounter Location Date Diagnosis [facility] [address] [facility] [id number] [address] Feb, [facility] [id number] [place] [address] Jan, Hypogonadism in male E29.1 [facility] [address] [id number] [address] Jan, Medicare welcome exam Z00.00 and Type 2 diabetes mellitus without complications E11.9 [facility] [address] [facility] [id number] [place] [address] 2546 11 Jan, 2018 Hypogonadism in male E29.1 [facility] [address] [facility] [id number] [place] [address] 2546 10 Jan, 2018 [facility] [address] [facility] [id number] [place] [address] 2546 Dec, Hypogonadism in male E29.1 [facility] [address] [facility] [id number] [place] [address] 2546 Dec, Medicare welcome exam Z00.00 [facility] [address] [facility] [id number] [place] [address] 2546 Dec, Hypogonadism in male E29.1 [facility] [address] [facility] [id number] [place] [address] 2546 Dec, [facility] [address] [facility] [id number] [place] [address] 2546 Nov, Hypogonadism in male E29.1 [facility] [address] [facility] [id number] [place] [address] 2546 Nov, Type 2 diabetes mellitus without complications E11.9 and History of Coumadin therapy Z92.29 [facility] [address] [facility] [id number] [place] [address] 2546 Nov, Medicare welcome exam Z00.00 [facility] [address] [facility] [id number], [place] [address] 2546 Nov, Type 2 diabetes mellitus without complications E11.9 ; History of Coumadin therapy Z92.29 and Hypogonadism in male E29.1 [facility] [address] [facility] [id number] [place] [address] 2546 Nov, [facility] [address] [facility] [id number] [place] [address] 2546 Oct, [facility] [address] [facility] [id number] [place] [address]- 1687 15 Oct, 2017 Diabetes type 2, controlled E11.9 [facility] [address] [address] 15 Oct, 2017 Medicare welcome exam Z00.00 [facility] [address] [facility] [id number], [place] [address] 8[address] 11 Oct, 2017 Hypogonadism in male E29.1 [facility] [address], [place] [address] Oct, [facility] [id number], [place] [address] 9167 September, Hypogonadism in male E29.1 [facility] [address], [place] [address] 3836 15 Sep, 2017 Medicare welcome exam Z00.00 [facility] [address], [place] [address] 9095 September, Hypogonadism in male E29.1 [facility] [address] [address] 57[address] Aug, Other chronic pain G89.29 ; Memory loss R41.3 ; Controlled type 2 diabetes mellitus without complication, without long-term current use of insulin E11.9 and Chronic major depressive disorder, recurrent episode F33.9 [facility] [address], [place] [address] 978[address] Aug, Medicare welcome exam Z00.00 [facility] [address], [place] [address] 9361 Aug, [facility] [address] [address] Aug, Hypogonadism in male E29.1 [facility] [address], [place] [address] 5[address] Jul, [facility] [address], [place] [address] 4[address] Jul, Hypogonadism in male E29.1 [facility] [address] [id number], [place] [address] 6587 Jul, [facility] [id number] [place] [address] 92255 -6106 Jul, Hypogonadism in male E29.1 [facility] [id number] [place] [address] 32095- 8713 Jul, Medicare welcome exam Z00.00 [facility] [id number] [place] [address] 41334- 3207 Jun, Medicare welcome exam Z00.00 [facility] [id number] [place] [address] 85614 -0109 Jun, Fever R50.9 and Influenza B J10.1 [place] [address] [address] Jun, Hypogonadism in male E29.1 [facility] [id number] [place] [address] 10541- 2909 Jun, Diabetes type 2, controlled E11.9 [facility] [id number] [place] [address] 44577- 7184 May, Hypogonadism in male E29.1 [facility] [id number] [place] [address] 50829- 6639 May, custodial (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 Z79.01 [facility] [id number] [place] [address] 92436- 0335 Apr, Hypogonadism in male E29.1 [facility] [id number] [place] [address] 31449- 7998 Apr, [facility] [id number] [place] [address] 95565- 4948 Apr, Medicare welcome exam Z00.00 and 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 [place] [id number], [place] [address]- 8766 Apr, Hypogonadism in male E29.1 [facility] [id number] [place] [address] 71825- 4176 Mar, Diabetes type 2, controlled E11.9 [place] [address], [place] [address]- 1828 Mar, Hypogonadism in male E29.1 [facility] [address] [id number], [place] [address]- 7239 Mar, Hypogonadism in male E29.1 [place] [id number] [place] [address] 72496- 9626 Feb, Hypogonadism in male E29.1 [place] [id number] [place] [address] 35776- 1739 Feb, Malaise R53.81 [place] [id number] [place] [address] 52223- 9536 Feb, [place] [id number] [place] [address] 27964- 4027 Feb, Diabetes type 2, controlled E11.9 [place] [address], [place] [address]- 0314 Feb, Chronic fatigue R53.82 ; Malaise R53.81 and Moderate episode of recurrent major depressive disorder F33.1 [place] [address], [place] [address]- 6842 11 Jan, 2017 Diabetes type 2, controlled E11.9 [place] [id number] [place] [address] 53890- 3358 Jan, 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.01 and 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 [place] [id number], [place] [address]- 2164 Dec, Diabetes type 2, controlled E11.9 and Hypertriglyceridemia E78.1 [facility] [id number] [place] [address] 84549- 7491 Dec, Diabetes type 2, controlled E11.9 [facility] [id number] [place] [address] 08221- 1588 Dec, High risk medication use Z79.899 and custodial (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 Z79.01 [facility] [id number] [place] [address] 04384- 4548 Dec, High risk medication use Z79.899 [place] [id number] [place] [address] 16267- 0439 Nov, Diabetes type 2, controlled E11.9 [facility] [id number] [place] [address] 46505- 5061 Oct, Diabetes type 2, controlled E11.9 [facility] [id number] [place] [address] 05694- 3243 September, Diabetes type 2, controlled E11.9 [facility] [id number] [place] [address] 91783- 0313 Aug, custodial (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 Z79.01 [facility] [id number] [place] [address] 83060- 0810 Aug, Hematoma of arm, right, initial encounter S40.021A and custodial (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 Z79.01 [facility] [id number] [place] [address] 25434- 8091 Aug, [facility] [id number] [place] [address] 53070 -4116 Aug, Cellulitis of right upper extremity L03.113 [facility] [id number] [place] [address] 34341- 7175 14 Aug, 2016 Diabetes type 2, controlled E11.9 [facility] [id number] [place] [address] 38084- 4421 Aug, Hammertoe of right foot M20.41 ; Hallux abducto valgus, left M20.12 and Onychomycosis B35.1 [facility] [id number] [place] [address] 07601- 0237 Aug, 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 [facility] [id number] [place] [address] 82066- 8754 Aug, custodial (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 Z79.01 [facility] [id number] [place] [address] 70338- 1473 Aug, 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 [facility] [id number] [place] [address] 31611 -0950 Aug, Right shoulder pain M25.511 and Closed nondisplaced fracture of acromial end of right clavicle, initial encounter S42.034A [place] [id number] [place] [address] 53734- 2847 Jul, Diabetes type 2, controlled E11.9 [place] [id number] [place] [address] 47717- 5379 Jun, Diabetes type 2, controlled E11.9 and 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 [place] [id number] [place] [address] 80801- 7699 May, [place] [id number] [place] [address] 78285- 2439 Apr, [place] [id number] [place] [address] 69243- 4984 Mar, [place] [id number] [place] [address] 73789- 3781 Feb, [place] [id number] [place] [address] 29441- 0995 Dec, Diabetes type 2, controlled E11.9 [facility] [id number], [place] [address]- 6752 Dec, [facility] [address], [place] [address]- 2732 Nov, [facility] [address], [place] [address]- 5146 Nov, Type 2 diabetes mellitus without complications E11.9 [facility] [address], [place] [address]- 2988 Oct, Type 2 diabetes mellitus without complications E11.9 [facility] [address], [place] [address]- 7531 Aug, [facility] [address], [place] [address]- 1081 Aug, Type 2 diabetes mellitus without complications E11.9 [facility] [address], [place] [address]- 2086 Jun, Type 2 diabetes mellitus without complications E11.9 and 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 manager 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 use of antiplatelet drug Z79.02 [place] [address], [place] [address]- 2597 May, [facility] [address], [place] [address]- 1174 May, Diabetes type 2, controlled E11.9 [facility] [address], [place] [address]- 4530 Apr, Diabetes type 2, controlled E11.9 [facility] [id number], [place] [address]- 5073 Mar, Diabetes type 2, controlled E11.9 ; Knee pain, right M25.561 ; Other chronic pain G89.29 and Medication monitoring encounter Z51.81 [facility] [address], [place] [address]- 7848 Feb, Type 2 diabetes mellitus without complications E11.9 ; High risk medication use Z79.899 and Anxiety F41.9 [facility] [address], [place] [address]- 3122 Jan, Diabetes 250.00 [facility] [id number] [place] [address] 96037- 4046 Dec, Diabetes 250.00 [facility] [id number] [place] [address] 98934 2546 Nov, Diabetes 250.00 [facility] [id number] [place] [address] 77727 2546 Nov, [facility] [id number] [place] [address] 96948- 8955 Oct, Diabetes mellitus type 1 250.01 and High risk medication use V58.69 [facility] [address], [place] [address]- 5236 Oct, [facility] [address], [place] [address]- 7883 September, [facility] [address] 8613 Aug, [facility] [address], [place] [address]- 8432 Aug, [facility] [address], [place] [address]- 5806 Jul, [facility] [address], [place] [address]- 5616 Jul, [facility] [id number], [place] [address]- 7069 Jun, [facility] [address], [place] [address]- 6026 Jun, [facility] [address], [place] [address]- 5266 Jun, [facility] [id number] [place] [address]- 8290 May, [facility] [address] [id number] [place] [address]- 8341 May, [facility] [place] [facility] [address] [id number] [place] [address]- 9642 Apr, [facility] [address] [id number] [place] [address]- 5647 Apr, [facility] [place] [facility] [address] [id number] [place] [address]- 7830 Apr, [facility] [address] [id number] [place] [address]- 3918 Apr, [facility] [address] [id number] [place] [address]- 7292 Apr, [facility] [place] [facility] [address] [id number] [place] [address]- 5574 Apr, [facility] [address] [id number] [place] [address]- 8721 Feb, [facility] [place] [facility] [address] [id number] [place] [address]- 0811 Feb, [facility] [address] [id number] [place] [address]- 9093 Feb, [facility] [place] [facility] [address] [id number] [place] [address]- 8530 Feb, [facility] [place] [facility] [address] [id number] [place] [address]- 7155 Dec, [facility] [place] [facility] [address] [id number] [place] [address]- 4057 Dec, [facility] [place] [facility] [address] [id number] [place] [address]- 7171 Nov, [facility] [place] [facility] [address] [id number] [place] [address]- 0145 Nov, [facility] [place] [facility] [address] [id number] [place] [address]- 4602 Oct, [facility] [place] [facility] [address] [id number] [place] [address]- 2882 Oct, [facility] [place] [facility] [address] [id number] [place] [address]- 0707 Oct, [facility] [place] [facility] [address] [id number] [place] [address]- 1048 Oct, [facility] [place] [facility] [address] [id number] [place] [address]- 5048 Oct, [facility] [place] [facility] [address] [id number] [place] [address]- 5796 Oct, [facility] [place] [facility] [address] [id number] [place] [address]- 6340 September, [facility] [place] [facility] [address] [id number] [place] [address]- 9064 September, [facility] [place] [facility] [address] [id number] [place] [address]- 6581 September, [facility] [place] [facility] [address] [id number] [place] [address]- 0602 September, [facility] [place] [facility] [address] [id number] [place] [address]- 5340 September, [facility] [place] [facility] [address] [id number] [place] [address]- 2453 September, [facility] [place] [facility] [address] [id number] [place] [address]- 0050 Aug, [facility] [place] [facility] [address] [id number] [place] [address]- 1823 Aug, [facility] [place] [facility] [address] [id number] [place] [address]- 2773 Aug, [facility] [place] [facility] [address] [id number], [place] [address]- 7192 Aug, [facility] [address] [id number] [place] [address]- 9026 Aug, [facility] [place] [facility] [address] [id number] [place] [address]- 1283 Aug, [facility] [place] [facility] [address] [facility] [id number] [place] [address]- 7174 Jul, [facility] [place] [facility] [address] [id number] [place] [address]- 2542 Jul, [facility] [place] [facility] [address] [id number] [place] [address]- 0456 Jul, [facility] [place] [facility] [address] [facility] [id number] [place] [address]- 8935 Jul, [facility] [place] [facility] [address] [facility] [id number] [place] [address]- 2102 May, [facility] [place] [facility] [address] [facility] [id number] [place] [address]- 7012 May, [facility] [place] [facility] [address] [facility] [id number] [place] [address]- 8805 Apr, [facility] [place] [facility] [address] [facility] [id number] [place] [address]- 1828 Apr, [facility] [place] [facility] [address] [facility] [id number] [place] [address]- 4050 Apr, [facility] [place] [facility] [address] [facility] [id number] [place] [address]- 5187 Apr, [facility] [place] [facility] [address] [id number] [place] [address]- 7007 Apr, [facility] [place] [facility] [address] [facility] [id number] [place] [address]- 1406 Apr, [facility] [place] [facility] [address] [facility] [id number] [place] [address]- 2255 Feb, [facility] [place] [facility] [address] [id number] [place] [address]- 5722 Feb, [facility] [place] [facility] [address] [id number] [place] [address]- 8075 Feb, [facility] [place] [facility] [address] [id number] [place] [address]- 2546 Feb, [facility] [place] [facility] [address] [id number] [place] [address]- 6478 Feb, [facility] [place] [facility] [address] [id number] [place] [address]- 1965 Feb, [facility] [place] [facility] [address] [id number] [place] [address]- 5620 Feb, [facility] [place] [facility] [address] [id number] [place] [address]- 4367 Feb, [facility] [place] [facility] [address] [id number] [place] [address] Jan, [facility] [place] [facility] [address] [id number] [place] [address] Jan, [facility] [place] [facility] [address] [id number] [place] [address] Jan, [facility] [place] [facility] [address] [id number] [place] [address] Jan, [facility] [place] [facility] [address] [id number] [place] [address] Dec, [facility] [place] [facility] [address] [id number] [place] [address] Dec, [facility] [place] [facility] [address] [id number] [place] [address] Dec, [facility] [place] [facility] [address] [id number] [place] [address] Nov, [facility] [place] [facility] [address] [id number] [place] [address] Nov, [facility] [address] [id number] [place] [address] Oct, [facility] [place] [facility] [address] [id number] [place] [address] September, [facility] [place] [facility] [address] [id number] [place] [address] September, [facility] [place] [facility] [address] [id number] [place] [address] September, [facility] [place] [facility] [address] [id number] [place] [address] Aug, [facility] [place] [facility] [address] [id number] [place] [address] 16 Aug, 2012 [facility] [place] [facility] [address] [id number] [place] [address] Aug, [facility] [place] [facility] [address] [id number] [place] [address] Jul, [facility] [place] [facility] [address] [id number] [place] [address] Jul, [facility] [place] [facility] [address] [id number] [place] [address] Jun, [facility] [place] [facility] [address] [id number] [place] [address] Jun, [facility] [place] [facility] [address] [id number] [place] [address] Jun, [facility] [place] [facility] [address] [id number] [place] [address] Jun, [facility] [place] [facility] [address] [id number] [place] [address] May, [facility] [place] [facility] [address] [id number] [place] [address] May, [facility] [place] [facility] [address] [id number] [place] [address] Apr, [facility] [address] [id number] [place] [address] Apr, [facility] [place] [facility] [address] [id number] [place] [address] Apr, [facility] [address] [id number] [place] [address] Apr, [facility] [place] [facility] [address] [id number] [place] [address] Apr, [facility] [address] [id number] [place] [address] Apr, [facility] [address] [facility] [id number] [place] [address] Mar, [facility] [place] [facility] [address] [facility] [id number] [place] [address] Mar, [facility] [address] [id number] [place] [address] Mar, [facility] [place] [facility] [address] [facility] [id number] [place] [address] Mar, [facility] [address] [facility] [id number] [place] [address] Mar, [facility] [place] [facility] [address] [facility] [id number] [place] [address] Mar, [facility] [place] [facility] [address] [id number] [place] [address] Feb, [facility] [place] [facility] [address] [id number] [place] [address] Feb, [facility] [place] [facility] [address] [facility] [id number] [place] [address] Feb, [facility] [place] [facility] [address] [facility] [id number] [place] [address] Feb, [facility] [place] [facility] [address] [id number] [place] [address] Feb, [facility] [place] [facility] [address] [id number] [place] [address] Jan, [facility] [place] [facility] [address] [id number] [place] [address] Jan, [facility] [place] [facility] [address] [id number] [place] [address] Jan, [facility] [place] [facility] [address] [id number] [place] [address] Dec, [facility] [place] [facility] [address] [id number] [place] [address] Dec, [facility] [place] [facility] [address] [id number] [place] [address] Nov, [facility] [place] [facility] [address] [id number] [place] [address] Oct, [facility] [place] [facility] [address] [id number] [place] [address] Oct, [facility] [place] [facility] [address] [id number] [place] [address] Oct, [facility] [place] [facility] [address] [id number] [place] [address] Oct, [facility] [place] [facility] [address] [id number] [address] Oct, [facility] [place] [facility] [address] [id number] [place] [address] September, [facility] [place] [facility] [address] [id number] [place] [address] 117[address] Aug, [facility] [place] [facility] [address] [id number], [place] [address] Aug, [facility] [place] [facility] [address] [id number], [place] [address] 17 Aug, [address] [facility] [address] [id number] [place] [address] 16 Aug, 2011 [facility] [place] [facility] [address] [id number] [place] [address] 13 Aug, 2011 [facility] [place] [facility] [address] [id number] [place] [address] 0196 11 Aug, 2011 [facility] [place] [facility] [address] [id number] [place] [address] 11 Aug, 2011 [facility] [place] [facility] [address] [id number] [place] [address]- 8580 05 Aug, 2011 [facility] [place] [facility] [address] [id number] [place] [address]- 9027 05 Aug, [address] [facility] [address] [id number] [address] 20 Jul, 2011 [facility] [place] [facility] [address] [facility] [id number] [place] [address] 20 Jul, 2011 [facility] [place] [facility] [address] [facility] [id number] [place] [address] 8679 20 Jul, 2011 [facility] [place] [facility] [address] [facility] [id number] [place] [address] 9945 17 Jul, 2011 [facility] [place] [facility] [address] [facility] [id number] [place] [address] 6098 08 Jul, 2011 [facility] [place] [facility] [address] [facility] [id number] [place] [address] 1397 15 Jun, 2011 [facility] [place] [facility] [address] [id number] [place] [address] 0044 14 Jun, 2011 [facility] [place] [facility] [address] [id number] [place] [address]- 6590 08 Jun, 2011 [facility] [place] [facility] [address] [facility] [id number] [place] [address]- 9369 08 Jun, 2011 [facility] [place] [facility] [address] [id number] [place] [address] May, [facility] [address] [id number] [place] [address]698 May, [facility] [address] [id number] [place] [address] May, [facility] [address] [id number] [place] [address] 26[address] May, [facility] [address] [id number] [place] [address] May, [facility] [address] [id number] [place] [address] 6[address] May, [facility] [address] [id number] [place] [address] 3211 May, [facility] [address] [id number] [place] [address] 12[address] Apr, [facility] [address] [id number] [place] [address] Apr, [facility] [address] [id number] [place] [address] 2789 Apr, [facility] [address] [id number] [place] [address]- 1856 13 Apr, 2011 [facility] [address] [id number] [place] [address] 72[address] Apr, [facility] [place] [facility] [address] [id number] [place] [address] 37[address] Apr, [facility] [place] [facility] [address] [id number] [place] [address]- [address]293 Apr, [facility] [place] [facility] [address] [id number] [place] [address]- 0231 12 Apr, 2011 [facility] [place] [facility] [address] [id number], [place] [address] Apr, [facility] [place] [facility] [address] [id number] [place] [address]- 2664 Apr, [facility] [place] [facility] [address] [id number] [place] [address]- 9513 Mar, [facility] [place] [facility] [address] [id number] [place] [address]- 7433 Mar, [facility] [place] [facility] [address] [id number] [place] [address]- 3297 Feb, [facility] [place] [facility] [address] [id number] [place] [address]- 7959 Jun, [facility] [place] [facility] [address] [id number] [place] [address]- 8435 Apr, [facility] [place] [facility] [address] [id number] [place] [address] 3555 Feb, [facility] [place] [facility] [address] [id number] [place] [address]- 6488 Feb, [facility] [place] [facility] [address] [id number] [place] [address]- 0858 Feb, [facility] [place] [facility] [address] [id number] [place] [address]- 5097 Apr, [facility] [place] [facility] [address] [id number], [place] [address]- 1352 Apr, [facility] [place] [facility] [address] [id number], [place] [address]- [address] Mar, [facility] [place] [facility] [address] [id number] [place] [address]- 1115 Mar, [facility] [place] [facility] [address] [id number] [address] Mar, [facility] [place] [facility] [address] [id number] [place] [address]- 1572 Feb, [facility] [place] [facility] [address] [facility] [id number] [place] [id number] [address] Feb, [facility] [address] [facility] [id number] [place] [address] Feb, [facility] [address] [facility] [id number] [place] [address] Jan, IMMUNIZATIONS Vaccine Route Administration Date Status TESTOSTERONE (PT'S OWN) IM Intramuscular Feb 01, 2018 Administered SOCIAL HISTORY Never Assessed REASON FOR VISIT Testosterone injection per pts request. [email or web address] PLAN OF CARE VITAL SIGNS Height 69 in 2018-02-01 Weight 250.2 lbs 2018-02-01 BMI 36.94 kg/m2 2018-02-01 MEDICATIONS Medication Instructions Dosage Frequency Start Date End Date Duration Status Amlodipine Besylate 10 MG TAKE 1 TABLET ONE TIME DAILY (APPOINTMENT NEEDED FOR FURTHER REFILLS) 90 Active Topamax 50 mg 1 tablet 12h 90 Active Warfarin Sodium 6 MG TAKE 1 TABLET EVERY DAY 90 Active Metformin HCl 500 mg Orally 2 times a day 3 tablets 12h Active Potassium Chloride Pati ER 10 MEQ 1 tablet with food 24h Active Carvedilol 3.125 MG Orally 2 times a day 1 tablet 12h Not-Taking Metoprolol Succinate ER 50 mg Orally Once a day 1/2 tablet (25 mg) 24h Active Clonazepam 1 MG Orally 3 times a day 1 tablet 8h Jun, 28 days Active Clonidine HCl 0.2 MG 1 tablet 12h 90 Active Blood Glucose Test Strip Test Strips as directed Nov, Active Lovastatin 20 mg 1 tablet with a meal 24h Active Aspirin 81 MG Orally Once a day 1 tablet 24h Not-Taking [place] 5-325 MG Orally every 6 hrs 1 tablet 6h Jan, 28 days Active Paroxetine HCl 40 MG TAKE 1 TABLET ONE TIME DAILY IN THE MORNING 90 Active Enalapril Maleate 5 mg 1 tablet 12h Active Actos 30 MG Orally Once a day 1 tablet 24h Active Metformin HCl 500 mg Orally Once a day at hs 2 tablet Not-Taking Depo-Testosterone 100 MG/ML Intramuscular 2 times a month 1 ml Feb, 140 days Active RESULTS No Results PROCEDURES Procedure Date Ordered Result Body Site TESTOSTERONE (PT'S OWN) Feb 01, 2018 THER/PROPH/DIAG INJ, SC/IM Feb 01, 2018 INSTRUCTIONS MEDICATIONS ADMINISTERED No Known [...]
--- OUTSIDE RECORDS SUMMARY | 2018-04-28 05:17 | XMS REPORT ---
Author Author MARLEY MCGRATH Organization [facility] Address [address] [place] [address] Care Team Providers Care Supervisor Sample Name Role Phone MARLEY MCGRATH Unavailable PROBLEMS Type Condition ICD9-CM Code GHH18-KX Code Onset Dates Condition Status SNOMED Code Problem Hammertoe of right foot M20.41 Active 701733894 Problem Moderate episode of recurrent major depressive disorder F33.1 Active 801426612 Problem Hypertriglyceridemia E78.1 Active 041665312 Problem Other chronic pain G89.29 Active 96441606 Problem Memory loss R41.3 Active 059817170 Problem 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.01 Active 3918263 Problem Chronic fatigue R53.82 Active 82698435 Problem Controlled type 2 diabetes mellitus without complication, without long -term current use of insulin E11.9 Active 076971513 Problem Chronic major depressive disorder, recurrent episode F33.9 Active 05833719 Problem Knee pain, right M25.561 Active 09027027 Problem Diabetes type 2, controlled E11.9 Active 79711668 Problem Type 2 diabetes mellitus without complications E11.9 Active 640658199 Problem Hypogonadism in male E29.1 Active 98050727 Problem retirement (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 Z79.01 Active 183493712 ALLERGIES Substance Reaction Event Type Date Status Sulfamethoxazole-Trimethoprim Unknown Drug Allergy Jan, Active ENCOUNTERS Encounter Location Date Diagnosis [facility] [id number], [place] [address] Feb, [facility] [address], [place] [address] Jan, Hypogonadism in male E29.1 [facility] [address], [place] [address] Jan, Medicare welcome exam Z00.00 and Type 2 diabetes mellitus without complications E11.9 [facility] [address] [facility] [id number] [place] [address] 11 Jan, 2018 Hypogonadism in male E29.1 [facility] [address] [facility] [id number] [place] [address] 2546 10 Jan, 2018 [facility] [address] [facility] [id number] [place] [address] 2546 27 Dec, 2017 Hypogonadism in male E29.1 [facility] [address] [facility] [id number] [place] [address] 2546 27 Dec, 2017 Medicare welcome exam Z00.00 [facility] [address] [facility] [id number] [place] [address] 2546 08 Dec, 2017 Hypogonadism in male E29.1 [facility] [address] [facility] [id number] [place] [address] 07 Dec, 2017 [facility] [address] [facility] [id number] [place] [address] 2546 Nov, Hypogonadism in male E29.1 [facility] [address] [facility] [id number] [place] [address] 2548 Nov, Type 2 diabetes mellitus without complications E11.9 and History of Coumadin therapy Z92.29 [facility] [address] [facility] [id number], [place] [address] 18 Nov, 2017 Medicare welcome exam Z00.00 [facility] [address] [facility] [id number], [place] [address] 12 Nov, 2017 Type 2 diabetes mellitus without complications E11.9 ; History of Coumadin therapy Z92.29 and Hypogonadism in male E29.1 [facility] [address] [facility] [id number] [place] [address] 1266 Nov, [facility] [address] [facility] [id number] [place] [address] 1066 Oct, [facility] [address] [facility] [id number] [place] [address] [address] Oct, Diabetes type 2, controlled E11.9 [facility] [address], [place] [address] 15 Oct, 2017 Medicare welcome exam Z00.00 [facility] [address], [place] [address] 5[address] 11 Oct, 2017 Hypogonadism in male E29.1 [facility] [address], [place] [address] Oct, [facility] [address], [place] [address] 69[address] September, Hypogonadism in male E29.1 [facility] [address], [place] [address] 37[address] 15 Sep, 2017 Medicare welcome exam Z00.00 [facility] [address], [place] [address] 5285 September, Hypogonadism in male E29.1 [facility] [address], [place] [address] 4[address] Aug, Other chronic pain G89.29 ; Memory loss R41.3 ; Controlled type 2 diabetes mellitus without complication, without long-term current use of insulin E11.9 and Chronic major depressive disorder, recurrent episode F33.9 [facility] [address], [place] [address] 35[address] Aug, Medicare welcome exam Z00.00 [facility] [address], [place] [address] 85[address] Aug, [facility] [address], [place] [address] Aug, Hypogonadism in male E29.1 [facility] [address], [place] [address] 9179 Jul, [facility] [address], [place] [address]- 74[address] Jul, Hypogonadism in male E29.1 [facility] [address], [place] [address] 8547 Jul, [facility] [id number] [place] [address]41 -3652 Jul, Hypogonadism in male E29.1 [facility] [id number] [place] [address] 63758- 0163 Jul, Medicare welcome exam Z00.00 [facility] [id number] [place] [address] 65629- 1163 Jun, Medicare welcome exam Z00.00 [facility] [id number] [place] [address]84 -1510 Jun, Fever R50.9 and Influenza B J10.1 [facility] [id number] [place] [address] 34991- 2765 Jun, Hypogonadism in male E29.1 [facility] [id number] [place] [address] 76586- 7919 Jun, Diabetes type 2, controlled E11.9 [facility] [id number] [place] [address] 15860- 4363 May, Hypogonadism in male E29.1 [facility] [id number] [place] [address] 47568- 8942 May, 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 [facility] [address], [place] [address] 9417 Apr, Hypogonadism in male E29.1 [facility] [id number] [place] [address] 749[address]- 4781 Apr, [facility] [id number] [place] [address] 46306- 1931 Apr, Medicare welcome exam Z00.00 and 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 [address] [facility] [address], [place] [address]- 8296 Apr, Hypogonadism in male E29.1 [facility] [id number] [place] [address] 40835- 5466 Mar, Diabetes type 2, controlled E11.9 [facility] [id number] [place] [address] 50930- 2656 Mar, Hypogonadism in male E29.1 [facility] [id number] [place] [address] 64591- 2344 Mar, Hypogonadism in male E29.1 [facility] [id number] [place] [address] 18187- 0106 Feb, Hypogonadism in male E29.1 [facility] [id number] [place] [address] 46580- 6434 Feb, Malaise R53.81 [facility] [id number] [place] [address] 19413- 7121 Feb, [facility] [id number] [place] [address] 36787- 4337 Feb, Diabetes type 2, controlled E11.9 [address] [address] [place] [address] 15223- 1702 Feb, Chronic fatigue R53.82 ; Malaise R53.81 and Moderate episode of recurrent major depressive disorder F33.1 [address] [address], [place] [address]- 7191 Jan, Diabetes type 2, controlled E11.9 [facility] [id number] [place] [address] 99480- 7681 Jan, 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.01 and retirement (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 Z79.01 [address] [address], [place] [address]- 1619 Dec, Diabetes type 2, controlled E11.9 and Hypertriglyceridemia E78.1 [facility] [address] [place] [address] 34467- 7250 Dec, Diabetes type 2, controlled E11.9 [facility] [id number] [place] [address] 13009- 4868 Dec, High risk medication use Z79.899 and 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 [facility] [id number] [place] [address] 75349- 4161 Dec, High risk medication use Z79.899 [facility] [id number] [place] [address] 05635- 9962 Nov, Diabetes type 2, controlled E11.9 [facility] [id number] [place] [address] 14510- 2990 Oct, Diabetes type 2, controlled E11.9 [facility] [id number] [place] [address] 87982- 2580 September, Diabetes type 2, controlled E11.9 [facility] [id number] [place] [address] 61274- 9937 Aug, retirement (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 Z79.01 [facility] [id number] [place] [address] 64308- 6868 Aug, Hematoma of arm, right, initial encounter S40.021A and 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 [facility] [id number] [place] [address] 50215- 8982 Aug, [facility] [id number] [place] [address] 52501 -9209 Aug, Cellulitis of right upper extremity L03.113 [facility] [id number] [place] [address] 33881- 6432 14 Aug, 2016 Diabetes type 2, controlled E11.9 [facility] [id number] [place] [address] 82754- 5301 Aug, Hammertoe of right foot M20.41 ; Hallux abducto valgus, left M20.12 and Onychomycosis B35.1 [facility] [id number] [place] [address] 59827- 2823 Aug, 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 [facility] [id number] [place] [address] 46070- 5981 Aug, retirement (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 Z79.01 [facility] [id number] [place] [address] 23653- 4704 Aug, retirement (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 Z79.01 [facility] [id number] [place] [address] 86673 -2409 Aug, Right shoulder pain M25.511 and Closed nondisplaced fracture of acromial end of right clavicle, initial encounter S42.034A [address] [facility] [address] [place] [address] 20505- 9956 Jul, Diabetes type 2, controlled E11.9 [address] [facility] 86467- 2341 Jun, Diabetes type 2, controlled E11.9 and 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 [address] [facility] [id number] [place] [address] 25527- 1423 May, [address] [id number] [place] [address] 64915- 2316 Apr, [address] [id number] [place] [address] 51819- 8955 Mar, [address] [facility] [id number] [place] [address] 00664- 6973 Feb, [address] [facility] [id number] [place] [address] 46286- 6987 Dec, Diabetes type 2, controlled E11.9 [facility] [address], [place] [address]- 5523 Dec, [facility] [address], [place] [address]- 3486 Nov, [facility] [address], [place] [address]- 4425 Nov, Type 2 diabetes mellitus without complications E11.9 [facility] [address], [place] [address]- 4981 Oct, Type 2 diabetes mellitus without complications E11.9 [facility] [address], [place] [address]- 9546 Aug, [facility] [address], [place] [address]- 1769 Aug, Type 2 diabetes mellitus without complications E11.9 [facility] [address], [place] [address]- 5860 Jun, Type 2 diabetes mellitus without complications E11.9 and 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 halfway use of antiplatelet drug Z79.02 [address] [facility], [place] [address]- 5349 May, [facility] [address], [place] [address]- 1542 May, Diabetes type 2, controlled E11.9 [address] [facility], [place] [address]- 7069 Apr, Diabetes type 2, controlled E11.9 [facility] [id number], [place] [address]- 4709 Mar, Diabetes type 2, controlled E11.9 ; Knee pain, right M25.561 ; Other chronic pain G89.29 and Medication monitoring encounter Z51.81 [facility] [id number], [place] [address]- 9079 Feb, Type 2 diabetes mellitus without complications E11.9 ; High risk medication use Z79.899 and Anxiety F41.9 [facility] [address], [place] [address]- 8346 Jan, Diabetes 250.00 [facility] [address] [place] [address] 77660 2546 Dec, Diabetes 250.00 [facility] [address] [place] [address] 82041 2546 Nov, Diabetes 250.00 [facility] [id number] [place] [address] 11545 2546 Nov, [facility] [id number] [place] [address] 18820- 7960 Oct, Diabetes mellitus type 1 250.01 and High risk medication use V58.69 [facility] [address], [place] [address]- 9306 Oct, [facility] [id number] [place] [address] 00167- 7851 September, [facility] [address], [place] [address]- 2540 Aug, [facility] [address] [place] [address] 42967- 8550 Aug, [facility] [address], [place] [address]- 9329 Jul, [facility] [address], [place] [address]- 0977 Jul, [facility] [address], [place] [address]- 6006 Jun, [facility] [address], [place] [address]- 2656 Jun, [facility] [address], [place] [address]- 4076 Jun, [facility] [id number] 6789 May, [facility] [place] [facility] [address] [id number] [place] [address]17 May, [facility] [place] [facility] [address] [id number] [place] [address]- 6515 Apr, [facility] [place] [facility] [address] [id number] [place] 7467 Apr, [facility] [place] [facility] [address] [id number] [place] [address]- 6089 Apr, [facility] [place] [facility] [address] [id number] [place] [address]- 2016 Apr, [facility] [place] [facility] [address] [id number] [place] [address]- 3224 Apr, [facility] [place] [facility] [address] [id number] [place] [address]- 7896 Apr, [facility] [place] [facility] [address] [id number] [place] [address]- 4937 Feb, [facility] [place] [facility] [address] [id number] [place] [address]- 7048 Feb, [facility] [place] [facility] [address] [id number] [place] [address]- 1426 Feb, [facility] [place] [facility] [address] [id number] [place] [address]- 4274 Feb, [facility] [place] [facility] [address] [id number] [place] [address]- 9658 Dec, [facility] [place] [facility] [address] [id number] [place] 2693 Dec, [facility] [place] [facility] [address] [id number] [place] 4509 Nov, [facility] [place] [facility] [address] [id number] [place] [address]- 9088 Nov, [facility] [place] [facility] [address] [id number] [place] [address]- 0215 Oct, [facility] [place] [facility] [address] [id number] [place] [address]- 1198 Oct, [facility] [place] [facility] [address] [id number] [place] [address]- 4481 Oct, [facility] [place] [facility] [address] [id number] [place] [address]- 0331 Oct, [facility] [place] [facility] [address] [id number] [place] [address]- 5220 Oct, [facility] [place] [facility] [address] [id number] [place] [address]- 7398 Oct, [facility] [place] [facility] [address] [id number] [place] [address]- 6876 September, [facility] [place] [facility] [address] [id number] [place] [address]- 2587 September, [facility] [place] [facility] [address] [id number] [place] [address]- 0941 September, [facility] [place] [facility] [address] [id number] [place] [address]- 9400 September, [facility] [place] [facility] [address] [id number] [place] [address]- 7160 September, [facility] [place] [facility] [address] [id number] [place] [address]- 8662 September, [facility] [place] [facility] [address] [id number] [place] [address]- 1251 Aug, [facility] [place] [facility] [address] [id number] [place] [address]- 5051 Aug, [facility] [place] [facility] [address] [id number] [place] [address]- 9913 Aug, [facility] [place] [facility] [address] [id number] [place] [address]- 5972 Aug, [facility] [place] [facility] [address] [id number] [place] [address]- 5775 Aug, [facility] [place] [facility] [address] [id number] [place] [address]- 9633 Aug, [facility] [place] [facility] [address] [id number] [place] [address]- 3251 Jul, [facility] [place] [facility] [address] [id number] [place] [address]- 2982 Jul, [facility] [place] [facility] [address] [id number] [place] [address]- 4864 Jul, [facility] [place] [facility] [address] [id number] [place] [address]- 3509 Jul, [facility] [place] [facility] [address] [id number] [place] [address]- 8507 May, [facility] [place] [facility] [address] [id number] [place] [address]- 6303 May, [facility] [place] [facility] [address] [id number] [place] [address]- 0881 Apr, [facility] [place] [facility] [address] [id number] [place] [address]- 2839 Apr, [facility] [place] [facility] [address] [id number], [place] [address]- 0411 Apr, [facility] [place] [facility] [address] [id number], [place] [address]- 3771 Apr, [facility] [place] [facility] [address] [id number] [place] [address]- 3228 Apr, [facility] [place] [facility] [address] [id number] [place] [address]- 4824 Apr, [facility] [place] [facility] [address] [id number] [place] [address]- 6833 Feb, [facility] [place] [facility] [address] [id number] [place] [address]- 2298 Feb, 2012 [facility] [address] [id number] [place] [address]- 7438 Feb, [facility] [place] [facility] [address] [id number] [place] [address]- 8226 Feb, 2012 [facility] [address] [id number] [place] [address]- 1887 Feb, 2012 [facility] [place] [facility] [address] [id number] [place] [address]- 6905 Feb, [facility] [address] [id number] [place] [address]- 3553 Feb, [facility] [place] [facility] [address] [id number] [place] [address]- 8017 Feb, [facility] [place] [facility] [address] [id number] [place] [address]- 9138 Jan, [facility] [address] [id number] [place] [address]- 3862 Jan, [facility] [place] [facility] [address] [id number] [place] [address]- 6931 Jan, [facility] [address] [id number] [place] [address]- 0339 Jan, [facility] [place] [facility] [address] [id number] [place] [address]- 8047 Dec, [facility] [place] [facility] [address] [id number] [place] [address]- 3623 Dec, [facility] [place] [facility] [address] [id number] [place] [address]- 7576 Dec, [facility] [place] [facility] [address] [id number] [place] [address]- 2545 Nov, [facility] [place] [facility] [address] [id number] [place] [address]- 3967 Nov, [facility] [address] [id number] [place] [address]- 4143 Oct, [facility] [place] [facility] [address] [id number] [place] [address]- 9531 September, [facility] [address] [id number] [place] [address]- 8638 September, [facility] [place] [facility] [address] [id number] [place] [address] September, [facility] [address] [id number] [place] [address] Aug, [facility] [place] [facility] [address] [id number] [place] [address] 16 Aug, 2012 [facility] [address] [id number] [place] [address] Aug, [facility] [address] [id number] [place] [address] Jul, [facility] [address] [id number] [place] [address] Jul, [facility] [address] [id number] [place] [address] Jun, [facility] [place] [facility] [address] [id number] [place] [address] Jun, [facility] [place] [facility] [address] [id number], [place] [address] Jun, [facility] [place] [facility] [address] [id number] [place] [address] Jun, [facility] [place] [facility] [address] [id number] [place] [address] May, [facility] [place] [facility] [address] [id number] [place] [address] May, [facility] [place] [facility] [address] [id number] [place] [address] Apr, [facility] [place] [facility] [address] [id number] [place] [address] Apr, [facility] [place] [facility] [address] [id number] [place] [address] Apr, [facility] [place] [facility] [address] [id number] [place] [address] Apr, [facility] [place] [facility] [address] [id number] [place] [address] Apr, [facility] [place] [facility] [address] [id number] [place] [address] Apr, [facility] [place] [facility] [address] [id number] [place] [address] Mar, [facility] [place] [facility] [address] [id number] [place] [address] Mar, [facility] [place] [facility] [address] [id number] [place] [address] Mar, [facility] [place] [facility] [address] [id number] [place] [address] Mar, [facility] [place] [facility] [address] [facility] [id number] [place] [address] Mar, [facility] [place] [facility] [address] [id number] [place] [address] Mar, [facility] [place] [facility] [address] [id number] [place] [address] Feb, [facility] [place] [facility] [address] [id number] [place] [address] Feb, [facility] [place] [facility] [address] [facility] [id number] [place] [address] Feb, [facility] [place] [facility] [address] [id number] [place] [address] Feb, [facility] [place] [facility] [address] [id number] [place] [address] Feb, [facility] [place] [facility] [address] [id number] [place] [address] Jan, [facility] [place] [facility] [address] [id number] [place] [address] Jan, [facility] [place] [facility] [address] [id number] [place] [address] Jan, [facility] [place] [facility] [address] [id number] [place] [address] Dec, [facility] [place] [facility] [address] [id number] [place] [address] Dec, [facility] [place] [facility] [address] [id number] [place] [address] Nov, [facility] [place] [facility] [address] [id number] [place] [address]- 1119 Oct, [facility] [place] [facility] [address] [id number] [place] [address] Oct, [facility] [place] [facility] [address] [id number] [place] [address] Oct, [facility] [place] [facility] [address] [id number] [place] [address] Oct, [facility] [place] [facility] [address] [id number] [place] [address] Oct, [facility] [place] [facility] [address] [id number] [place] [address] September, [facility] [place] [facility] [address] [id number] [place] [address] Aug, [facility] [place] [facility] [address] [id number] [place] [address] Aug, [facility] [place] [facility] [address] [id number] [place] [address] 17 Aug, 2011 [facility] [address] [id number] [place] [address] 16 Aug, 2011 [facility] [place] [facility] [address] [id number] [place] [address] 13 Aug, 2011 [facility] [place] [facility] [address] [id number] [place] [address] 11 Aug, 2011 [facility] [place] [facility] [address] [id number] [place] [address] 11 Aug, 2011 [facility] [place] [facility] [address] [id number] [place] [address] 05 Aug, 2011 [facility] [place] [facility] [address] [id number] [place] [address] 05 Aug, 2011 [facility] [address] [facility] [id number] [place] [address] 20 Jul, 2011 [facility] [place] [facility] [address] [id number] [place] [address] Jul, [facility] [place] [facility] [address] [id number] [place] [address] Jul, [facility] [place] [facility] [address] [facility] [id number] [place] [address] 17 Jul, 2011 [facility] [place] [facility] [address] [id number] [place] [address] Jul, [facility] [place] [facility] [address] [id number] [place] [address] 15 Jun, 2011 [facility] [place] [facility] [address] [id number] [place] [address] 14 Jun, 2011 [facility] [place] [facility] [address] [id number] [place] [address]- [address] 08 Jun, 2011 [facility] [place] [facility] [address] [facility] [id number] [place] [address]- [address]68 08 Jun, 2011 [facility] [place] [facility] [address] [id number] [place] [address] May, [facility] [address] [id number] [place] [address] May, [facility] [place] [facility] [address] [id number] [place] [address] May, [facility] [address] [id number] [place] [address] May, [facility] [place] [facility] [address] [id number] [place] [address] May, [facility] [place] [facility] [address] [id number] [place] [address] May, [facility] [address] [id number] [place] [address] May, [facility] [address] [id number] [place] [address] Apr, [facility] [address] [id number] [place] [address] Apr, [facility] [place] [facility] [address] [id number] [place] [address] Apr, [facility] [address] [id number] [place] [address] 13 Apr, 2011 [facility] [place] [facility] [address] [id number] [place] [address] 13 Apr, 2011 [facility] [place] [facility] [address] [id number] [place] [address] 25[address] Apr, [facility] [place] [facility] [address] [id number] [place] [address] 13 Apr, 2011 [facility] [place] [facility] [address] [id number] [place] [address] 2543 12 Apr, 2011 [facility] [place] [facility] [address] [id number] [place] [address] Apr, [facility] [place] [facility] [address] [id number] [place] [address] Apr, [facility] [place] [facility] [address] [id number] [place] [address] Mar, [facility] [place] [facility] [address] [facility] [id number] [place] [address] 164[address] Mar, [facility] [place] [facility] [address] [id number] [place] [address] Feb, [facility] [place] [facility] [address] [id number] [place] [address] Jun, [facility] [place] [facility] [address] [id number] [place] [address] Apr, [facility] [place] [facility] [address] [id number] [place] [address] Feb, [facility] [place] [facility] [address] [id number], [place] [address] Feb, [facility] [place] [facility] [address] [id number], [place] [address] Feb, [facility] [place] [facility] [address] [id number], [place] [address] Apr, [facility] [place] [facility] [address] [id number], [place] [address] Apr, [facility] [place] [facility] [address] [id number], [place] [address] Mar, [facility] [place] [facility] [address] [id number] [place] [address] Mar, [facility] [place] [facility] [address] [facility] [id number], [place] [address] Mar, [facility] [place] [facility] [address] [facility] [id number], [place] [address] Feb, [facility] [place] [facility] [address] [facility] [id number] [place] [id number] Feb, [facility] [address] [facility] [id number] [place] [address] Feb, [facility] [address] [facility] [id number] [place] [id number] Jan, IMMUNIZATIONS Vaccine Route Administration Date Status TESTOSTERONE (PT'S OWN) IM Intramuscular Jan 14, 2018 Administered SOCIAL HISTORY Never Assessed REASON FOR VISIT [facility] VITAL SIGNS MEDICATIONS Unknown Medications RESULTS No Results PROCEDURES Procedure Date Ordered Result Body Site TESTOSTERONE (PT'S OWN) Jan 14, 2018 THER/PROPH/DIAG INJ, SC/IM Jan 14, 2018 INSTRUCTIONS MEDICATIONS ADMINISTERED No Known Medications [...]
--- OUTSIDE RECORDS SUMMARY | 2018-04-28 05:17 | XMS REPORT ---
Author Author MARLEY MCGRATH Organization [facility] [place] Address [address] [place] [address] Care Team Providers Care Housekeeping Supervisor Hotel Name Role Phone MARLEY MCGRATH Unavailable PROBLEMS Type Condition ICD9-CM Code IPA54-OC Code Onset Dates Condition Status SNOMED Code Problem Hammertoe of right foot M20.41 Active 013304684 Problem Moderate episode of recurrent major depressive disorder F33.1 Active 261448495 Problem Hypertriglyceridemia E78.1 Active 666528995 Problem Other chronic pain G89.29 Active 97888228 Problem Memory loss R41.3 Active 879966966 Problem 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.01 Active 2377265 Problem Chronic fatigue R53.82 Active 38107111 Problem Controlled type 2 diabetes mellitus without complication, without long -term current use of insulin E11.9 Active 231666303 Problem Chronic major depressive disorder, recurrent episode F33.9 Active 99297516 Problem Knee pain, right M25.561 Active 93816987 Problem Diabetes type 2, controlled E11.9 Active 20540828 Problem Type 2 diabetes mellitus without complications E11.9 Active 610659570 Problem Hypogonadism in male E29.1 Active 46641168 Problem [facility] (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 Z79.01 Active 891697507 ALLERGIES No Information ENCOUNTERS Encounter Location Date Diagnosis [facility] [id number] [address] Feb, [facility] [address] [facility] [id number], [place] [address] Jan, Hypogonadism in male E29.1 [facility] [place] [address], [place] [address] Jan, Medicare welcome exam Z00.00 and Type 2 diabetes mellitus without complications E11.9 [facility] [place] [id number], [place] [address] 11 Jan, 2018 Hypogonadism in male E29.1 [facility] [place] [address] [facility] [id number], [place] [address] 10 Jan, 2018 [facility] [place] [address] [facility] [id number], [place] [address] Dec, Hypogonadism in male E29.1 [facility] [place] [address], [place] [address] Dec, Medicare welcome exam Z00.00 [facility] [place] [address] [facility] [id number], [place] [address] Dec, Hypogonadism in male E29.1 [facility] [place] [address] [facility] [id number], [place] [address] Dec, [facility] [place] [address] [id number], [place] [address] Nov, Hypogonadism in male E29.1 [facility] [place] [address], [place] [address] Nov, Type 2 diabetes mellitus without complications E11.9 and History of Coumadin therapy Z92.29 [facility] [place] [address], [place] [address] Nov, Medicare welcome exam Z00.00 [facility] [place] [address], [place] [address] Nov, Type 2 diabetes mellitus without complications E11.9 ; History of Coumadin therapy Z92.29 and Hypogonadism in male E29.1 [facility] [place] [address] [facility] [id number], [place] [address] Nov, [facility] [place] [id number], [place] [address] Oct, [facility] [place] [id number], [place] [address] Oct, Diabetes type 2, controlled E11.9 [facility] [place] [address], [place] [address] 15 Oct, 2017 Medicare welcome exam Z00.00 [facility] [place] [address], [place] [address] 11 Oct, 2017 Hypogonadism in male E29.1 [facility] [address], [place] [address] Oct, [facility] [place] [address], [place] [address] September, Hypogonadism in male E29.1 [facility] [place] [address], [place] [address] 8[address] 15 Sep, 2017 Medicare welcome exam Z00.00 [facility] [place] [address], [place] [address] September, Hypogonadism in male E29.1 [facility] [place] [address], [place] [address] Aug, Other chronic pain G89.29 ; Memory loss R41.3 ; Controlled type 2 diabetes mellitus without complication, without long-term current use of insulin E11.9 and Chronic major depressive disorder, recurrent episode F33.9 [facility] [place] [address], [place] [address] Aug, Medicare welcome exam Z00.00 [facility] [place] [address], [place] [address] Aug, [facility] [address], [place] [address] Aug, Hypogonadism in male E29.1 [facility] [place] [address], [place] [address] Jul, [facility] [place] [address], [place] [address] Jul, Hypogonadism in male E29.1 [facility] [place] [id number] [place] [address] 244[address] Jul, [facility] [id number] [place] [address]38 Jul, Hypogonadism in male E29.1 [facility] [place] [id number] [place] [address]- 6105 Jul, Medicare welcome exam Z00.00 [facility] [place] [id number] [place] [address]- 8952 Jun, Medicare welcome exam Z00.00 [facility] [id number] [place] [address] Jun, Fever R50.9 and Influenza B J10.1 [facility] [place] [id number] [place] [address]- 1975 Jun, Hypogonadism in male E29.1 [facility] [place] [id number] [place] [address] 40990- 8478 Jun, Diabetes type 2, controlled E11.9 [facility] [place] [id number] [place] [address]40[address]- 0458 May, Hypogonadism in male E29.1 [facility] [place] [id number] [place] [address] 26[address]- 7000 May, [facility] (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 Z79.01 [facility] [place] [id number] [place] [address] 8[address]- 9814 Apr, Hypogonadism in male E29.1 [facility] [place] [id number] [place] [address]13- 5839 Apr, [facility] [place] [id number] [place] [address]- 0633 Apr, Medicare welcome exam Z00.00 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 [facility] [place] [id number] [place] [address] 79248- 3681 Apr, Hypogonadism in male E29.1 [facility] [place] [id number] [place] [address] 96389- 3441 Mar, Diabetes type 2, controlled E11.9 [facility] [place] [address], [place] [address] 3789 Mar, Hypogonadism in male E29.1 [facility] [place] [id number] [place] [address] 71852- 4529 Mar, Hypogonadism in male E29.1 [facility] [id number] [place] [address] 68[address]- 9355 Feb, Hypogonadism in male E29.1 [facility] [id number] [place] [address] 18276- 3818 Feb, Malaise R53.81 [facility] [id number] [place] [address] 49663- 1269 Feb, [facility] [id number] [place] [address] 68333- 6686 Feb, Diabetes type 2, controlled E11.9 [place] [id number] [place] [address] 19532- 2289 Feb, Chronic fatigue R53.82 ; Malaise R53.81 and Moderate episode of recurrent major depressive disorder F33.1 [place] [address], [place] [address]- 0079 Jan, Diabetes type 2, controlled E11.9 [facility] [address], [place] [address]- 9314 Jan, 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.01 and [facility] (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 Z79.01 [place] [address], [place] [address] 1972 Dec, Diabetes type 2, controlled E11.9 and Hypertriglyceridemia E78.1 [facility] [id number] [place] [address] 12768- 7084 Dec, Diabetes type 2, controlled E11.9 [facility] [place] [id number] [place] [address] 57642- 0801 Dec, High risk medication use Z79.899 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 [facility] [place] [id number] [place] [address] 44185- 3595 Dec, High risk medication use Z79.899 [place] [facility] [id number] [place] [address] 70214- 4702 Nov, Diabetes type 2, controlled E11.9 [facility] [id number] [place] [address] 18773- 1402 Oct, Diabetes type 2, controlled E11.9 [facility] [id number] [place] [address] 89622- 3107 September, Diabetes type 2, controlled E11.9 [facility] [facility] [id number] [place] [address] 25875- 4746 Aug, 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 [place] [id number] [place] [address] 86686- 2142 Aug, Hematoma of arm, right, initial encounter S40.021A 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 [facility] [place] [id number] [place] [address] 27297- 5981 Aug, [facility] [id number] [place] [address]75 -5272 Aug, Cellulitis of right upper extremity L03.113 [place] [id number] [place] [address] 04547- 0523 14 Aug, 2016 Diabetes type 2, controlled E11.9 [facility] [place] [id number] [place] [address] 29178- 7260 Aug, Hammertoe of right foot M20.41 ; Hallux abducto valgus, left M20.12 and Onychomycosis B35.1 [place] [address] [address]47- 7934 Aug, [facility] (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 Z79.01 [facility] [place] [address] 97133- 7776 Aug, [facility] (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 Z79.01 [facility] [place] [address] 50323- 2556 Aug, [facility] (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 Z79.01 [facility] [address] [address]45 Aug, Right shoulder pain M25.511 and Closed nondisplaced fracture of acromial end of right clavicle, initial encounter S42.034A [place] [address] 21871- 6425 Jul, Diabetes type 2, controlled E11.9 [place] [address] 01807- 8736 Jun, Diabetes type 2, controlled E11.9 and [facility] (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 Z79.01 [place] [id number] [place] [address] 50038- 4335 May, [place] [facility] [id number] [place] [address] 27933- 2584 Apr, [place] [address] 25535- 2522 Mar, [place] [address] 94718- 2910 Feb, [facility] [facility] [id number] [place] [address] 93948- 0740 Dec, Diabetes type 2, controlled E11.9 [facility] [address] 95694- 9635 Dec, [facility] [place] [address], [place] [address]- 4448 Nov, [facility] [place] [address], [place] [address]- 5144 Nov, Type 2 diabetes mellitus without complications E11.9 [facility] [place] [address], [place] [address]- 2355 Oct, Type 2 diabetes mellitus without complications E11.9 [facility] [place] [address], [place] [address]- 0553 Aug, [place] [address], [place] [address]- 8768 Aug, Type 2 diabetes mellitus without complications E11.9 [facility] [place] [address], [place] [address]- 0544 Jun, Type 2 diabetes mellitus without complications E11.9 and 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 [place] [address], [place] [address]- 3176 May, [place] [address], [place] [address]- 2566 May, Diabetes type 2, controlled E11.9 [place] [address], [place] [address]- 6412 Apr, Diabetes type 2, controlled E11.9 [facility] [place] [address], [place] [address]- 4559 Mar, Diabetes type 2, controlled E11.9 ; Knee pain, right M25.561 ; Other chronic pain G89.29 and Medication monitoring encounter Z51.81 [place] [address], [place] [address]- 0433 Feb, Type 2 diabetes mellitus without complications E11.9 ; High risk medication use Z79.899 and Anxiety F41.9 [place] [address], [place] [address]- 7096 Jan, Diabetes 250.00 [facility] [place] [address], [place] [address]- 4196 Dec, Diabetes 250.00 [facility] [place] [id number], [place] [address] 2546 Nov, Diabetes 250.00 [facility] [place] [address], [place] [address] 2546 Nov, [facility] [place] [address], [place] [address]- 9328 Oct, Diabetes mellitus type 1 250.01 and High risk medication use V58.69 [facility] [place] [address], [place] [address]- 8146 Oct, [facility] [place] [address], [place] [address]- 3216 September, [facility] [place] [address], [place] [address]- 4938 Aug, [facility] [place] [address], [place] [address]- 9616 Aug, [facility] [place] [address], [place] [address]- 7276 Jul, [facility] [place] [address], [place] [address]- 6336 Jul, [facility] [place] [id number], [place] [address]- 0226 Jun, [facility] [place] [address], [place] [address]- 8756 Jun, [facility] [place] [address], [place] [address]- 2166 Jun, [facility] [place] [id number], [place] [address]- 2438 May, [facility] [place] [facility] [address] [id number] [place] [address]- 7759 May, [facility] [place] [facility] [address] [id number] [place] [address]- 2661 Apr, [facility] [place] [facility] [address] [id number] [place] [address]- 9836 Apr, [facility] [place] [facility] [address] [id number] [place] [address]- 2708 Apr, [facility] [place] [facility] [address] [id number] [place] [address]- 2414 Apr, [facility] [place] [facility] [address] [id number] [place] [address]- 7975 Apr, [facility] [place] [facility] [address] [id number] [place] [address]- 0210 Apr, [facility] [place] [facility] [address] [id number] [place] [address]- 9469 Feb, [facility] [place] [facility] [address] [id number] [place] [address]- 6083 Feb, [facility] [place] [facility] [address] [id number] [place] [address]- 9909 Feb, [facility] [place] [facility] [address] [id number] [place] [address]- 7091 Feb, [facility] [place] [facility] [address] [id number], [place] [address]- 9674 Dec, [facility] [place] [facility] [address] [id number] [place] [address]- 1680 Dec, [facility] [place] [facility] [address] [id number] [place] [address]- 0428 Nov, [facility] [place] [facility] [address] [id number] [place]75 Nov, [facility] [place] [facility] [address] [id number], [place] [address]- 8841 Oct, [facility] [place] [facility] [address] [id number] [place] [address]- 2780 Oct, [facility] [place] [facility] [address] [id number] [place] [address]- 7633 Oct, [facility] [place] [facility] [address] [id number] [place] [address]- 6120 Oct, [facility] [place] [facility] [address] [id number] [place] [address]- 4657 Oct, [facility] [place] [facility] [address] [id number] [place] [address]- 8492 Oct, [facility] [place] [facility] [address] [id number] [place] [address]- 5668 September, [facility] [place] [facility] [address] [id number] [place] [address]- 3167 September, [facility] [place] [facility] [address] [id number] [place] [address]- 7523 September, [facility] [place] [facility] [address] [id number] [place] [address]- 0169 September, [facility] [place] [facility] [address] [id number] [place] [address]- 4203 September, [facility] [place] [facility] [address] [id number] [place] [address]- 3354 September, [facility] [place] [facility] [address] [id number] [place] [address]- 3212 Aug, [facility] [place] [facility] [address] [id number] [place] [address]- 8116 Aug, [facility] [place] [facility] [address] [id number] [place] [address]- 6901 Aug, [facility] [place] [facility] [address] [id number] [place] [address]- 0135 Aug, [facility] [place] [facility] [address] [id number] [place] [address]- 2546 Aug, [facility] [place] [facility] [address] [id number] [place] [address]- 6825 Aug, [facility] [place] [facility] [address] [id number] [place] [address]- 2546 Jul, [facility] [place] [facility] [address] [id number] [place] [address]- 2546 Jul, [facility] [place] [facility] [address] [id number] [place] [address]- 2546 Jul, [facility] [place] [facility] [address] [id number] [place] [address]- 2880 Jul, [facility] [place] [facility] [address] [id number] [place] [address] May, [facility] [place] [facility] [address] [id number] [place] [address] May, [facility] [place] [facility] [address] [id number] [place] [address] Apr, [facility] [place] [facility] [address] [id number] [place] [address] Apr, [facility] [place] [facility] [address] [id number] [place] [address] Apr, [facility] [place] [facility] [address] [id number] [place] [address] Apr, [facility] [place] [facility] [address] [id number] [place] [address] Apr, [facility] [place] [facility] [address] [id number] [place] [address] Apr, [facility] [place] [facility] [address] [id number] [place] [address] Feb, [facility] [place] [facility] [address] [id number] [place] [address] Feb, [facility] [place] [facility] [address] [id number] [place] [address] Feb, [facility] [place] [facility] [address] [id number] [place] [address] Feb, [facility] [place] [facility] [address] [id number] [place] [address] Feb, [facility] [place] [facility] [address] [id number] [place] [address] Feb, [facility] [place] [facility] [address] [id number] [place] [address] Feb, [facility] [place] [facility] [address] [id number] [place] [address] Feb, [facility] [place] [facility] [address] [id number] [place] [address] Jan, [facility] [place] [facility] [address] [id number] [place] [address] Jan, [facility] [place] [facility] [address] [id number] [place] [address] Jan, [facility] [place] [facility] [address] [id number] [place] [address] Jan, [facility] [place] [facility] [address] [id number], [place] [address] Dec, [facility] [place] [facility] [address] [id number], [place] [address] Dec, [facility] [place] [facility] [address] [id number] [place] [address] Dec, [facility] [place] [facility] [address] [id number], [place] [address] Nov, [facility] [place] [facility] [address] [id number], [place] [address] Nov, [facility] [place] [facility] [address] [id number] [place] [address] Oct, [facility] [address] [id number] [place] [address] September, [facility] [address] [id number] [place] [address] September, [facility] [address] [id number] [place] [address] September, [facility] [address] [id number] [place] [address] Aug, [facility] [address] [id number] [place] [address] Aug, [facility] [address] [id number] [place] [address] Aug, [facility] [address] [id number] [place] [address] Jul, [facility] [address] [id number] [place] [address] Jul, [facility] [address] [id number] [place] [address] Jun, [facility] [address] [id number] [place] [address] Jun, [facility] [address] [id number] [place] [address] Jun, [facility] [address] [id number] [place] [address] Jun, [facility] [address] [id number] [place] [address] [address] May, [facility] [address] [id number] [place] [address] [address], [facility] [address] [id number] [place] [address] Apr, [facility] [place] [facility] [address] [id number] [place] [address] Apr, [facility] [place] [facility] [address] [id number] [place] [address] Apr, [facility] [place] [facility] [address] [id number] [place] [address] Apr, [facility] [place] [facility] [address] [id number] [place] [address] Apr, [facility] [place] [facility] [address] [id number] [place] [address] Apr, [facility] [place] [facility] [address] [id number] [place] [address] Mar, [facility] [place] [facility] [address] [id number] [place] [address] Mar, [facility] [place] [facility] [address] [id number], [place] [address] Mar, [facility] [place] [facility] [address] [id number] [place] [address] Mar, [facility] [place] [facility] [address] [facility] [id number], [place] [address] Mar, [facility] [place] [facility] [address] [facility] [id number], [place] [address] Mar, [facility] [place] [facility] [address] [id number], [place] [address] Feb, [facility] [place] [facility] [address] [id number], [place] [address] Feb, [facility] [place] [facility] [address] [id number], [place] [address] Feb, [facility] [place] [facility] [address] [facility] [id number], [place] [address] Feb, [facility] [place] [facility] [address] [id number], [place] [address] Feb, [facility] [place] [facility] [address] [id number] [place] [address] Jan, [facility] [place] [facility] [address] [id number] [place] [address] 2895 Jan, [facility] [place] [facility] [address] [facility] [id number] [place] [address] Jan, [facility] [place] [facility] [address] [id number] [place] [address] Dec, [facility] [place] [facility] [address] [id number] [place] [address] Dec, [facility] [place] [facility] [address] [id number] [place] [address] Nov, [facility] [place] [facility] [id number] [place] [address] Oct, [facility] [place] [facility] [address] [id number] [place] [address] Oct, [facility] [place] [facility] [address] [id number] [place] [address] Oct, [facility] [place] [facility] [address] [id number] [place] [address]97 Oct, [facility] [place] [facility] [id number] [place] [address] Oct, [facility] [place] [facility] [address] [facility] [id number], [place] [address] September, [facility] [place] [facility] [address] [id number] [place] [address]55 Aug, [facility] [place] [facility] [address] [facility] [id number] [place] [address] Aug, [facility] [place] [facility] [address] [id number] [place] [address] 17 Aug, 2011 [facility] [place] [facility] [address] [id number] [place] [address] 1542 16 Aug, 2011 [facility] [place] [facility] [address] [id number] [place] [address]- 9451 13 Aug, 2011 [facility] [place] [facility] [address] [id number] [place] [address]336 11 Aug, 2011 [facility] [place] [facility] [address] [id number] [place] [address]- [address]45 11 Aug, 2011 [facility] [place] [facility] [address] [id number] [place] [address] 05 Aug, 2011 [facility] [place] [facility] [address] [id number] [place] [address] 8681 05 Aug, 2011 [facility] [place] [facility] [address] [id number] [place] [address]684 20 Jul, 2011 [facility] [place] [facility] [address] [id number] [place] [address] 20 Jul, 2011 [facility] [place] [facility] [address] [id number] [place] [address] 9398 20 Jul, 2011 [facility] [place] [facility] [address] [id number] [place] [address]- 4786 17 Jul, 2011 [facility] [place] [facility] [address] [facility] [id number] [place] [address] 1415 08 Jul, 2011 [facility] [place] [facility] [address] [id number] [place] [address] 6130 15 Jun, 2011 [facility] [place] [facility] [address] [id number] [place] [address]- [address]276 14 Jun, 2011 [facility] [place] [facility] [address] [id number] [place] [address]- 6056 08 Jun, 2011 [facility] [place] [facility] [address] [id number] [place] [address]- 9027 08 Jun, 2011 [facility] [place] [facility] [address] [id number] [place] [address]- [address]269 May, [facility] [address] [id number] [place] [address]- 7165 13 May, 2011 [facility] [place] [facility] [address] [id number] [place] [address] 4047 May, [facility] [place] [facility] [address] [id number] [place] [address] 1998 May, [facility] [place] [facility] [address] [id number] [place] [address]- 1644 May, [facility] [address] [id number] [place] [address]- 5515 May, [facility] [place] [facility] [address] [id number] [place] [address]- 0622 May, [facility] [address] [id number] [place] [address]- 9202 Apr, [facility] [place] [facility] [address] [id number] [place] [address] 1238 Apr, [facility] [place] [facility] [address] [id number] [place] [address]- 9696 Apr, [facility] [place] [facility] [address] [id number] [place] [address]- 2726 Apr, [facility] [place] [facility] [address] [id number] [place] [address]- 2142 Apr, [facility] [place] [facility] [address] [id number] [place] [address]- 5837 Apr, [facility] [place] [facility] [address] [id number] [place] [address]- 0843 Apr, [facility] [place] [facility] [address] [id number] [place] [address]- 4174 12 Apr, 2011 [facility] [place] [facility] [address] [id number] [place] [address] 02 Apr, 2011 [facility] [place] [facility] [address] [id number] [place] [address] 2540 Apr, [facility] [place] [facility] [address] [id number] [place] [address]- 5212 Mar, [facility] [place] [facility] [address] [id number] [place] [address]- 3986 Mar, [facility] [place] [facility] [address] [id number] [place] [address]- 4866 Feb, [facility] [place] [facility] [address] [id number] [place] [address]- 4018 Jun, [facility] [place] [facility] [address] [id number] [place] [address]- 4309 Apr, [facility] [place] [facility] [address] [id number] [place] [address]- 4072 Feb, [facility] [place] [facility] [address] [id number] [place] [address]- 5201 Feb, [facility] [place] [facility] [address] [id number] [place] [address]- 7024 Feb, [facility] [place] [facility] [address] [facility] [id number] [place] [address]- 3060 Apr, [facility] [place] [facility] [address] [facility] [id number] [place] [address]- 2365 Apr, [facility] [place] [facility] [address] [id number] [place] [address]- 2477 Mar, [facility] [place] [facility] [address] [id number] [place] [address]- 2545 Mar, [facility] [place] [facility] [address] [id number] [place] [address]- 4990 Mar, [facility] [place] [facility] [address] [id number] [place] [address]- 4961 Feb, [facility] [place] [facility] [address] [id number] [place] [address] Feb, [facility] [place] [address] [facility] [id number] [place] [address] Feb, [facility] [place] [address] [facility] [id number] [place] [address]- [address]16 Jan, IMMUNIZATIONS No Known Immunizations SOCIAL HISTORY Never Assessed REASON FOR VISIT Controlled Med Refill 01/27/18 PLAN OF CARE VITAL SIGNS MEDICATIONS Medication Instructions Dosage Frequency Start Date End Date Duration Status Clonazepam 1 MG Orally 3 times a day 1 tablet 8h Jun, 28 days Active Nebo 5-325 MG Orally every 6 hrs 1 tablet 6h Jan, 28 days Active RESULTS No Results PROCEDURES [...]
--- OUTSIDE RECORDS SUMMARY | 2018-04-28 05:18 | XMS REPORT ---
Author Author MARLEY MCGRATH Organization [facility] Address [address] [place] [address] Care Team Providers Care Camera Supervisor Name Role Phone MARLEY MCGRATH Unavailable PROBLEMS Type Condition ICD9-CM Code HFG28-IY Code Onset Dates Condition Status SNOMED Code Problem Hammertoe of right foot M20.41 Active 317297746 Problem Moderate episode of recurrent major depressive disorder F33.1 Active 829843161 Problem Hypertriglyceridemia E78.1 Active 447172223 Problem Other chronic pain G89.29 Active 89978687 Problem Memory loss R41.3 Active 106777766 Problem 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.01 Active 8983195 Problem Chronic fatigue R53.82 Active 68217002 Problem Controlled type 2 diabetes mellitus without complication, without long -term current use of insulin E11.9 Active 863675462 Problem Chronic major depressive disorder, recurrent episode F33.9 Active 53560869 Problem Knee pain, right M25.561 Active 73487578 Problem Diabetes type 2, controlled E11.9 Active 97063682 Problem Type 2 diabetes mellitus without complications E11.9 Active 367658893 Problem Hypogonadism in male E29.1 Active 68747715 Problem nursing home (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 Z79.01 Active 792974842 ALLERGIES No Information ENCOUNTERS Encounter Location Date Diagnosis [facility] [address] [id number] [address] Feb, [facility] [address] [facility] [id number], [place] [address] Jan, Hypogonadism in male E29.1 [facility] [address], [place] [address] Jan, Medicare welcome exam Z00.00 and Type 2 diabetes mellitus without complications E11.9 [facility] [address] [id number] [address] 11 Jan, 2018 Hypogonadism in male E29.1 [facility] [address] [facility] [id number], [place] [address] 10 Jan, 2018 [facility] [address] [facility] [id number], [place] [address] Dec, Hypogonadism in male E29.1 [facility] [address], [place] [address] Dec, Medicare welcome exam Z00.00 [facility] [address] [facility] [id number], [place] [address] Dec, Hypogonadism in male E29.1 [facility] [address] [facility] [id number], [place] [address] Dec, [facility] [address] [id number], [place] [address] Nov, Hypogonadism in male E29.1 [facility] [address], [place] [address] Nov, Type 2 diabetes mellitus without complications E11.9 and History of Coumadin therapy Z92.29 [facility] [address], [place] [address] Nov, Medicare welcome exam Z00.00 [facility] [address], [place] [address] Nov, Type 2 diabetes mellitus without complications E11.9 ; History of Coumadin therapy Z92.29 and Hypogonadism in male E29.1 [facility] [address] [facility] [id number], [place] [address] Nov, [facility] [address] [id number], [place] [address] Oct, [facility] [address] [id number], [place] [address] Oct, Diabetes type 2, controlled E11.9 [facility] [address], [place] [address] 15 Oct, 2017 Medicare welcome exam Z00.00 [facility] [address], [place] [address] 11 Oct, 2017 Hypogonadism in male E29.1 [facility] [address]65[address], [place] [address] Oct, [facility] [address], [place] [address] September, Hypogonadism in male E29.1 [facility] [address], [place] [address] 15 Sep, 2017 Medicare welcome exam Z00.00 [facility] [address], [place] [address] September, Hypogonadism in male E29.1 [facility] [address], [place] [address] Aug, Other chronic pain G89.29 ; Memory loss R41.3 ; Controlled type 2 diabetes mellitus without complication, without long-term current use of insulin E11.9 and Chronic major depressive disorder, recurrent episode F33.9 [facility] [address], [place] [address] Aug, Medicare welcome exam Z00.00 [facility] [address], [place] [address] Aug, [facility] [address], [place] [address] Aug, Hypogonadism in male E29.1 [facility] [address] [address] Jul, [facility] [address], [place] [address] Jul, Hypogonadism in male E29.1 [facility] [id number] [place] [address]- 8672 Jul, [facility] [id number] [place] [address] Jul, Hypogonadism in male E29.1 [facility] [id number] [place] [address]- 8088 Jul, Medicare welcome exam Z00.00 [facility] [id number] [place] [address]- 3024 Jun, Medicare welcome exam Z00.00 [facility] [id number] [place] [address] Jun, Fever R50.9 and Influenza B J10.1 [facility] [id number] [place] [address] 24[address]- 9461 Jun, Hypogonadism in male E29.1 [facility] [id number] [place] [address] 9[address]- 5618 Jun, Diabetes type 2, controlled E11.9 [facility] [id number] [place] [address]- 4792 May, Hypogonadism in male E29.1 [facility] [id number] [place] [address]- 5828 May, nursing home (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 Z79.01 [facility] [id number] [place] [address]24- 0604 Apr, Hypogonadism in male E29.1 [facility] [id number] [place] [address] 02745- 8489 Apr, [facility] [id number] [place] [address] 036[address]- 8[address] Apr, Medicare welcome exam Z00.00 and 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 [facility] [id number] [place] [address] 74107- 9003 Apr, Hypogonadism in male E29.1 [facility] [address] [place] [address] 33962- 3580 Mar, Diabetes type 2, controlled E11.9 [facility] [address] [address] 359[address] Mar, Hypogonadism in male E29.1 [facility] [id number] [place] [address] 76575- 0564 Mar, Hypogonadism in male E29.1 [facility] [id number] [place] [address] 87744- 9795 Feb, Hypogonadism in male E29.1 [facility] [id number] [place] [address]459- 1361 Feb, Malaise R53.81 [facility] [id number] [place] [address] 25075- 6308 Feb, [facility] [id number] [place] [address] 30509- 2564 Feb, Diabetes type 2, controlled E11.9 [facility] [address] [place] [address] 07950- 1148 Feb, Chronic fatigue R53.82 ; Malaise R53.81 and Moderate episode of recurrent major depressive disorder F33.1 [facility] [address], [place] [address] Jan, Diabetes type 2, controlled E11.9 [facility] [address], [place] [address] 3[address] Jan, 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.01 and nursing home (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 Z79.01 [facility] [address], [place] [address]- 3438 Dec, Diabetes type 2, controlled E11.9 and Hypertriglyceridemia E78.1 [facility] [id number] [place] [address] 77639- 7425 Dec, Diabetes type 2, controlled E11.9 [facility] [id number] [place] [address] 16087- 3501 Dec, High risk medication use Z79.899 and 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 [facility] [id number] [place] [address] 03953- 3563 Dec, High risk medication use Z79.899 [facility] [id number] [place] [address] 93839- 2451 Nov, Diabetes type 2, controlled E11.9 [facility] [id number] [place] [address] 19536- 7419 Oct, Diabetes type 2, controlled E11.9 [facility] [id number] [place] [address] 36757- 3319 September, Diabetes type 2, controlled E11.9 [facility] [id number] [place] [address] 28133- 7733 Aug, 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 [facility] [id number] [place] [address] 35020- 3034 Aug, Hematoma of arm, right, initial encounter S40.021A and 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 [facility] [id number] [place] [address] 82960- 1078 Aug, [facility] [id number] [place] [address] 29163 -6229 Aug, Cellulitis of right upper extremity L03.113 [facility] [id number] [place] [address] 05929- 8033 14 Aug, 2016 Diabetes type 2, controlled E11.9 [facility] [id number] [place] [address] 35733- 2638 Aug, Hammertoe of right foot M20.41 ; Hallux abducto valgus, left M20.12 and Onychomycosis B35.1 [facility] [address] [address]- 4726 Aug, nursing home (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 Z79.01 [facility] [address] [address]- 8028 Aug, nursing home (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 Z79.01 [facility] [address] 18776- 3622 Aug, nursing home (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 Z79.01 [facility] [address] [address] Aug, Right shoulder pain M25.511 and Closed nondisplaced fracture of acromial end of right clavicle, initial encounter S42.034A [address] [address] 76059- 8376 Jul, Diabetes type 2, controlled E11.9 [facility] [facility] [address] 16187- 9020 Jun, Diabetes type 2, controlled E11.9 and nursing home (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 Z79.01 [facility] [id number] [place] [address] 00534- 7447 May, [facility] [id number] [place] [address] 10799- 3854 Apr, [facility] [address] 41786- 1108 Mar, [facility] [address] 20123- 7556 Feb, [facility] [id number] [place] [address] 81229- 6282 Dec, Diabetes type 2, controlled E11.9 [facility] [facility] [address] 04106- 2108 Dec, [facility] [address] [address]- 8484 Nov, [facility] [address], [place] [address]- 1591 Nov, Type 2 diabetes mellitus without complications E11.9 [facility] [address] [address]- 6333 Oct, Type 2 diabetes mellitus without complications E11.9 [facility] [address], [place] [address]- 9537 Aug, [facility] [facility] [address], [place] [address]- 0985 Aug, Type 2 diabetes mellitus without complications E11.9 [facility] [address], [place] [address]- 0871 Jun, Type 2 diabetes mellitus without complications E11.9 and 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 [facility] [facility] [address], [place] [address]- 8716 May, [facility] [address] [address]- 3220 May, Diabetes type 2, controlled E11.9 [facility] [address], [place] [address]- 4785 Apr, Diabetes type 2, controlled E11.9 [facility] [address], [place] [address]- 4806 Mar, Diabetes type 2, controlled E11.9 ; Knee pain, right M25.561 ; Other chronic pain G89.29 and Medication monitoring encounter Z51.81 [facility] [address], [place] [address]- 3019 Feb, Type 2 diabetes mellitus without complications E11.9 ; High risk medication use Z79.899 and Anxiety F41.9 [facility] [address], [place] [address]- 2056 Jan, Diabetes 250.00 [facility] [address], [place] [address]- 8876 Dec, Diabetes 250.00 [facility] [id number], [place] [address] 2546 Nov, Diabetes 250.00 [facility] [address], [place] [address] 2546 Nov, [facility] [address], [place] [address]- 4015 Oct, Diabetes mellitus type 1 250.01 and High risk medication use V58.69 [facility] [address], [place] [address]- 8636 Oct, [facility] [address], [place] [address]- 2376 September, [facility] [address], [place] [address]- 6038 Aug, [facility] [address], [place] [address]- 8086 Aug, [facility] [address], [place] [address]- 4426 Jul, [facility] [address], [place] [address]- 1196 Jul, [facility] [id number], [place] [address]- 1756 Jun, [facility] [address], [place] [address]- 6376 Jun, [facility] [address], [place] [address]- 6966 Jun, [facility] [id number], [place] [address]- 4279 May, [facility] [place] [facility] [address] [id number] [place] [address]- 9018 May, [facility] [place] [facility] [address] [id number] [place] [address]- 7915 Apr, [facility] [place] [facility] [address] [id number] [place] [address]- 4687 Apr, [facility] [place] [facility] [address] [id number] [place] [address]- 4131 Apr, [facility] [place] [facility] [address] [id number] [place] [address]- 9352 Apr, [facility] [place] [facility] [address] [id number] [place] [address]- 9231 Apr, [facility] [place] [facility] [address] [id number] [place] [address]- 3608 Apr, [facility] [place] [facility] [address] [id number] [place] [address]- 3528 Feb, [facility] [place] [facility] [address] [id number] [place] [address]- 0733 Feb, [facility] [place] [facility] [address] [id number] [place] [address]- 4785 Feb, [facility] [place] [facility] [address] [id number] [place] [address]- 3932 Feb, [facility] [place] [facility] [address] [id number], [place] [address]- 8097 Dec, [facility] [place] [facility] [address] [id number] [place] [address]- 9760 Dec, [facility] [place] [facility] [address] [id number] [place] [address]- 8578 Nov, [facility] [place] [facility] [address] [id number] [place] [address]30 Nov, [facility] [place] [facility] [address] [id number], [place] [address]- 6732 Oct, [facility] [place] [facility] [address] [id number] [place] [address]- 6692 Oct, [facility] [place] [facility] [address] [id number] [place] [address]- 4920 Oct, [facility] [place] [facility] [address] [id number] [place] [address]- 1731 Oct, [facility] [place] [facility] [address] [id number] [place] [address]- 3843 Oct, [facility] [place] [facility] [address] [id number] [place] [address]- 9245 Oct, [facility] [place] [facility] [address] [id number] [place] [address]- 2110 September, [facility] [place] [facility] [address] [id number] [place] [address]- 6382 September, [facility] [place] [facility] [address] [id number] [place] [address]- 7722 September, [facility] [place] [facility] [address] [id number] [place] [address]- 7112 September, [facility] [place] [facility] [address] [id number] [place] [address]- 5188 September, [facility] [place] [facility] [address] [id number] [place] [address]- 0050 September, [facility] [place] [facility] [address] [id number] [place] [address]- 7113 Aug, [facility] [place] [facility] [address] [id number] [place] [address]- 0418 Aug, [facility] [place] [facility] [address] [id number] [place] [address]- 1246 Aug, [facility] [place] [facility] [address] [id number] [place] [address]- 9485 Aug, [facility] [place] [facility] [address] [id number] [place] [address]- 2546 Aug, [facility] [place] [facility] [address] [id number] [place] [address]- 2062 Aug, [facility] [place] [facility] [address] [id number] [place] [address]- 2546 Jul, [facility] [place] [facility] [address] [id number] [place] [address]- 2546 Jul, [facility] [place] [facility] [address] [id number] [place] [address]- 2546 Jul, [facility] [place] [facility] [address] [id number] [place] [address]- 3271 Jul, [facility] [place] [facility] [address] [id number] [place] [address]- 3292 May, [facility] [place] [facility] [address] [id number] [place] [address]- 3825 May, [facility] [place] [facility] [address] [id number] [place] [address]- 8923 Apr, [facility] [place] [facility] [address] [id number] [place] [address]- 8229 Apr, [facility] [place] [facility] [address] [id number] [place] [address]- 1891 Apr, [facility] [place] [facility] [address] [id number] [place] [address]- 4950 Apr, [facility] [place] [facility] [address] [id number] [place] [address]- 4225 Apr, [facility] [place] [facility] [address] [id number] [place] [address]- 0906 Apr, [facility] [place] [facility] [address] [id number] [place] [address]- 2546 Feb, [facility] [place] [facility] [address] [id number] [place] [address]- 3553 Feb, [facility] [place] [facility] [address] [id number] [place] [address]- 0971 Feb, [facility] [place] [facility] [address] [id number] [place] [address]- 1792 Feb, [facility] [place] [facility] [address] [id number] [place] [address]- 6328 Feb, [facility] [place] [facility] [address] [id number] [place] [address]- 2873 Feb, [facility] [place] [facility] [address] [id number] [place] [address]- 6680 Feb, [facility] [place] [facility] [address] [id number] [place] [address]- 6312 Feb, [facility] [place] [facility] [address] [id number] [place] [address]- 2891 Jan, [facility] [place] [facility] [address] [id number] [place] [address]- 2109 Jan, [facility] [place] [facility] [address] [id number] [place] [address]- 5615 Jan, [facility] [place] [facility] [address] [id number] [place] [address]- 5444 Jan, [facility] [place] [facility] [address] [id number], [place] [address]- 4555 Dec, [facility] [place] [facility] [address] [id number], [place] [address]- 4524 Dec, [facility] [place] [facility] [address] [id number] [place] [address]- 1742 Dec, [facility] [place] [facility] [address] [id number], [place] [address]- 3858 Nov, [facility] [place] [facility] [address] [id number], [place] [address] Nov, [facility] [place] [facility] [address] [id number] [place] [address] Oct, [facility] [address] [id number] [place] [address] September, [facility] [address] [id number] [place] [address] September, [facility] [address] [id number] [place] [address] September, [facility] [address] [id number] [place] [address] Aug, [facility] [address] [id number] [place] [address] Aug, [facility] [address] [id number] [place] [address] Aug, [facility] [address] [id number] [place] [address] Jul, [facility] [address] [id number] [place] [address] Jul, [facility] [address] [id number] [place] [address] Jun, [facility] [address] [id number] [place] [address] Jun, [facility] [address] [id number] [place] [address] Jun, [facility] [address] [id number] [place] [address] Jun, [facility] [address] [id number] [place] [address] May, [facility] [address] [id number] [place] [address] May, [facility] [address] [id number] [place] [address] Apr, [facility] [place] [facility] [address] [id number] [place] [address] Apr, [facility] [place] [facility] [address] [id number] [place] [address] Apr, [facility] [place] [facility] [address] [id number] [place] [address] Apr, [facility] [place] [facility] [address] [id number] [place] [address] Apr, [facility] [place] [facility] [address] [id number] [place] [address] Apr, [facility] [place] [facility] [address] [id number] [place] [address] Mar, [facility] [place] [facility] [address] [id number] [place] [address] Mar, [facility] [place] [facility] [address] [id number], [place] [address] Mar, [facility] [place] [facility] [address] [id number] [place] [address] Mar, [facility] [place] [facility] [address] [facility] [id number], [place] [address] Mar, [facility] [place] [facility] [address] [facility] [id number], [place] [address] Mar, [facility] [place] [facility] [address] [id number], [place] [address] Feb, [facility] [place] [facility] [address] [id number], [place] [address] Feb, [facility] [place] [facility] [address] [id number], [place] [address] Feb, [facility] [place] [facility] [address] [facility] [id number], [place] [address] Feb, [facility] [place] [facility] [address] [id number], [place] [address] Feb, [facility] [place] [facility] [address] [id number] [place] [address] Jan, [facility] [place] [facility] [address] [id number] [place] [address] Jan, [facility] [place] [facility] [address] [facility] [id number] [place] [address] Jan, [facility] [place] [facility] [address] [id number] [place] [address] Dec, [facility] [place] [facility] [address] [id number] [place] [address] Dec, [facility] [place] [facility] [address] [id number] [place] [address] Nov, [facility] [place] [facility] [id number] [address] Oct, [facility] [place] [facility] [address] [id number] [place] [address] Oct, [facility] [place] [facility] [address] [id number] [address] Oct, [facility] [place] [facility] [address] [id number] [address] Oct, [facility] [place] [facility] [id number] [address] Oct, [facility] [place] [facility] [address] [facility] [id number] [address] September, [facility] [place] [facility] [address] [id number] [place] [address] Aug, [facility] [place] [facility] [address] [facility] [id number] [place] [address] Aug, [facility] [place] [facility] [address] [id number] [address] 17 Aug, 2011 [facility] [place] [facility] [address] [id number] [place] [address] 16 Aug, 2011 [facility] [place] [facility] [address] [id number] [place] [address]- [address] 13 Aug, 2011 [facility] [place] [facility] [address] [id number] [place] [address]- [address]46 11 Aug, 2011 [facility] [place] [facility] [address] [id number] [place] [address] 11 Aug, 2011 [facility] [place] [facility] [address] [id number] [place] [address] 05 Aug, 2011 [facility] [place] [facility] [address] [id number] [place] [address]- 7360 05 Aug, 2011 [facility] [place] [facility] [address] [id number] [place] [address]- 9677 20 Jul, 2011 [facility] [place] [facility] [address] [id number] [place] [address]- [address]1 20 Jul, 2011 [facility] [place] [facility] [address] [id number] [place] [address]- [address] 20 Jul, 2011 [facility] [place] [facility] [address] [id number] [place] [address]- 8199 17 Jul, 2011 [facility] [place] [facility] [address] [facility] [id number] [place] [address]- 47[address] 08 Jul, 2011 [facility] [place] [facility] [address] [id number] [place] [address]- 3120 15 Jun, 2011 [facility] [place] [facility] [address] [id number] [place] [address]- 1007 14 Jun, 2011 [facility] [place] [facility] [address] [id number] [place] [address]- 9792 08 Jun, 2011 [facility] [place] [facility] [address] [id number] [place] [address]- 6562 08 Jun, 2011 [facility] [place] [facility] [address] [id number] [place] [address]- [address] May, [facility] [address] [id number] [place] [address]- [address] 13 May, 2011 [facility] [place] [facility] [address] [id number] [place] [address] 67[address] May, [facility] [place] [facility] [address] [id number] [place] [address]- 1414 May, [facility] [place] [facility] [address] [id number] [place] [address]- 8[address] May, [facility] [address] [id number] [place] [address]- [address] May, [facility] [place] [facility] [address] [id number] [place] [address]- 0485 May, [facility] [address] [id number] [place] [address]- 275[address] Apr, [facility] [place] [facility] [address] [id number] [place] [address]- 6794 Apr, [facility] [place] [facility] [address] [id number] [place] [address]- 8368 Apr, [facility] [place] [facility] [address] [id number] [place] [address]- [address] Apr, [facility] [place] [facility] [address] [id number] [place] [address]- 9870 Apr, [facility] [place] [facility] [address] [id number] [place] [address]- 1304 Apr, [facility] [place] [facility] [address] [id number] [place] [address]- 5[address] Apr, [facility] [place] [facility] [address] [id number] [place] [address]- [address] 12 Apr, 2011 [facility] [place] [facility] [address] [id number] [place] [address] 02 Apr, 2011 [facility] [place] [facility] [address] [id number] [place] [address] 2547 Apr, [facility] [place] [facility] [address] [id number] [place] [address]- [address] Mar, [facility] [place] [facility] [address] [id number] [place] [address]- 120[address] Mar, [facility] [place] [facility] [address] [id number] [place] [address]- 2814 Feb, [facility] [place] [facility] [address] [id number] [place] [address]- 64[address] Jun, [facility] [place] [facility] [address] [id number] [place] [address]- 5975 Apr, [facility] [place] [facility] [address] [id number] [place] [address]- 2498 Feb, [facility] [place] [facility] [address] [id number] [place] [address]- 8[address] Feb, [facility] [place] [facility] [address] [id number] [place] [address]- 3[address] Feb, [facility] [place] [facility] [address] [facility] [id number] [place] [address]- 1695 Apr, [facility] [place] [facility] [address] [facility] [id number] [place] [address]- 2079 Apr, [facility] [place] [facility] [address] [id number] [place] [address]- 9565 Mar, [facility] [place] [facility] [address] [id number] [place] [address]- 2540 Mar, [facility] [place] [facility] [address] [id number] [place] [address]- 1601 Mar, [facility] [place] [facility] [address] [id number] [place] [address]- 8[address] Feb, [facility] [place] [facility] [address] [id number] [place] [address] Feb, [facility] [address] [facility] [id number] [place] [address] Feb, [facility] [address] [facility] [id number] [place] [address] Jan, IMMUNIZATIONS No Known Immunizations SOCIAL HISTORY [...]
[2018-04-28 05:19] LABS: INR 1.4 (0.8-1.4); PROTHROMBIN TIME PATIENT 16.8 SEC (12.2-14.7)
--- OUTSIDE RECORDS SUMMARY | 2018-04-28 05:19 | XMS REPORT ---
Author Author MARLEY MCGRATH Organization [facility] Address [address] [place] [address] Care Team Providers Care Ham Stripper Name Role Phone MARLEY MCGRATH Unavailable PROBLEMS Type Condition ICD9-CM Code [id number] Code Onset Dates Condition Status SNOMED Code Problem Hammertoe of right foot M20.41 Active 770404242 Problem Moderate episode of recurrent major depressive disorder F33.1 Active 143328140 Problem Hypertriglyceridemia E78.1 Active 492373216 Problem Other chronic pain G89.29 Active 75229941 Problem Memory loss R41.3 Active 944437239 Problem 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.01 Active 6094555 Problem Chronic fatigue R53.82 Active 37758048 Problem Controlled type 2 diabetes mellitus without complication, without long -term current use of insulin E11.9 Active 805053046 Problem Chronic major depressive disorder, recurrent episode F33.9 Active 83388171 Problem Knee pain, right M25.561 Active 52027357 Problem Diabetes type 2, controlled E11.9 Active 51676214 Problem Type 2 diabetes mellitus without complications E11.9 Active 938663032 Problem Hypogonadism in male E29.1 Active 77950931 Problem senior care (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 Z79.01 Active 226435875 ALLERGIES No Information ENCOUNTERS Encounter Location Date Diagnosis [facility] [id number] [address] Feb, [facility] [id number] [address] Jan, [facility] [id number] [address] 3[address] Jan, Hypogonadism in male E29.1 [facility] [id number] [address] Jan, [facility] [address], [place] [address] 2546 Dec, Hypogonadism in male E29.1 [facility] [address], [place] [address] 2546 Dec, Medicare welcome exam Z00.00 [facility] [address] [address] 2546 Dec, Hypogonadism in male E29.1 [facility] [address] [address] 2546 Dec, [facility] [address] [address] 2546 Nov, Hypogonadism in male E29.1 [facility] [address] [address] 2546 Nov, Type 2 diabetes mellitus without complications E11.9 and History of Coumadin therapy Z92.29 [facility] [address], [place] [address] 2546 Nov, Medicare welcome exam Z00.00 [facility] [address], [place] [address] 2547 Nov, Type 2 diabetes mellitus without complications E11.9 ; History of Coumadin therapy Z92.29 and Hypogonadism in male E29.1 [facility] [address] [address] 2546 Nov, [facility] [address], [place] [address] 2546 Oct, [facility] [address], [place] [address] 2546 Oct, Diabetes type 2, controlled E11.9 [facility] [address], [place] [address] 2546 Oct, Medicare welcome exam Z00.00 [facility] [address], [place] [address] 7316 Oct, Hypogonadism in male E29.1 [facility] [address], [place] [address] Oct, [facility] [address], [place] [address] 3973 September, Hypogonadism in male E29.1 [facility] [id number] [place] [address]226- 7874 September, Medicare welcome exam Z00.00 [facility] [address], [place] [address] 58[address] 10 Sep, 2017 Hypogonadism in male E29.1 [facility] [id number] [place] [address] 27143- 7098 Aug, Other chronic pain G89.29 ; Memory loss R41.3 ; Controlled type 2 diabetes mellitus without complication, without long-term current use of insulin E11.9 and Chronic major depressive disorder, recurrent episode F33.9 [facility] [address], [place] [address] 1010 11 Aug, 2017 Medicare welcome exam Z00.00 [facility] [id number] [place] [address]24- 0201 Aug, [facility] [address], [place] [address] Aug, Hypogonadism in male E29.1 [facility] [id number], [place] [address] 9185 Jul, [facility] [id number], [place] [address]- 9[address] Jul, Hypogonadism in male E29.1 [facility] [id number], [place] [address] 0297 Jul, [facility] [address], [place] [address] Jul, Hypogonadism in male E29.1 [facility] [address], [place] [address]- 3481 Jul, Medicare welcome exam Z00.00 [facility] [address], [place] [address] 6[address] 22 Jun, 2017 Medicare welcome exam Z00.00 [facility] [address], [place] [address] Jun, Fever R50.9 and Influenza B J10.1 [facility] [id number] [place] [address] 45597- 4142 Jun, Hypogonadism in male E29.1 [facility] [id number] [place] [address] 45102- 2805 Jun, Diabetes type 2, controlled E11.9 [facility] [id number] [place] [address] 69481- 8398 May, Hypogonadism in male E29.1 [facility] [address], [place] [address] 27[address] May, 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 [facility] [address], [place] [address]- 1429 Apr, Hypogonadism in male E29.1 [facility] [address], [place] [address]- 1783 Apr, [facility] [id number] [place] [address] 22370- 2541 Apr, Medicare welcome exam Z00.00 and 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 [facility] [id number] [place] [address] 53980- 9183 Apr, Hypogonadism in male E29.1 [facility] [address], [place] [address]- 6246 Mar, Diabetes type 2, controlled E11.9 [facility] [address], [place] [address]- 4509 Mar, Hypogonadism in male E29.1 [facility] [id number] [place] [address] 63007- 8666 Mar, Hypogonadism in male E29.1 [facility] [id number] [place] [address] 77672- 5772 Feb, Hypogonadism in male E29.1 [facility] [id number] [place] [address] 67193- 4323 Feb, Malaise R53.81 [facility] [id number] [place] [address] 54943- 7881 Feb, [facility] [id number] [place] [address] 39397- 6514 Feb, Diabetes type 2, controlled E11.9 [facility] [id number] [place] [address] 60212- 8224 Feb, Chronic fatigue R53.82 ; Malaise R53.81 and Moderate episode of recurrent major depressive disorder F33.1 [facility] [id number] [place] [address] 01135- 3353 Jan, Diabetes type 2, controlled E11.9 [facility] [id number] [place] [address] 33456- 0470 Jan, 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.01 and senior care (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 Z79.01 [facility] [address], [place] [address]- 1575 Dec, Diabetes type 2, controlled E11.9 and Hypertriglyceridemia E78.1 [facility] [id number] [place] [address] 11013- 7978 Dec, Diabetes type 2, controlled E11.9 [facility] [id number] [place] [address] 62891- 6041 Dec, High risk medication use Z79.899 and senior care (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 Z79.01 [facility] [id number] [place] [address] 00694- 3434 Dec, High risk medication use Z79.899 [facility] [id number] [place] [address] 11213- 2374 Nov, Diabetes type 2, controlled E11.9 [facility] [id number] [place] [address] 09902- 9756 Oct, Diabetes type 2, controlled E11.9 [facility] [id number] [place] [address] 03513- 1569 September, Diabetes type 2, controlled E11.9 [facility] [id number] [place] [address] 69310- 7387 Aug, 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 [facility] [id number] [place] [address] 48728- 2595 Aug, Hematoma of arm, right, initial encounter S40.021A and senior care (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 Z79.01 [facility] [id number] [place] [address] 53956- 6375 Aug, [facility] [id number] [place] [address] 28828 -3583 Aug, Cellulitis of right upper extremity L03.113 [facility] [id number] [place] [address] 13607- 4781 14 Aug, 2016 Diabetes type 2, controlled E11.9 [facility] [id number] [place] [address] 68399- 7602 Aug, Hammertoe of right foot M20.41 ; Hallux abducto valgus, left M20.12 and Onychomycosis B35.1 [facility] [id number] [place] [address] 33073- 0796 Aug, senior care (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 Z79.01 [facility] [address], [place] [address]- 2541 Aug, senior care (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 Z79.01 [facility] [address], [place] [address]- 0966 Aug, 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 [facility] [address], [place] [address] Aug, Right shoulder pain M25.511 and Closed nondisplaced fracture of acromial end of right clavicle, initial encounter S42.034A [facility] [id number] [place] [address] 53937- 8662 Jul, Diabetes type 2, controlled E11.9 [facility] [id number] [place] [address] 18681- 9986 Jun, Diabetes type 2, controlled E11.9 and 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 [facility] [address], [place] [address]- 8903 May, [facility] [address], [place] [address]- 4604 Apr, [facility] [address], [place] [address]- 9652 Mar, [facility] [address], [place] [address]- 6506 Feb, [facility] [address], [place] [address]- 7407 Dec, Diabetes type 2, controlled E11.9 [facility] [address] 6451 Dec, [facility] [address], [place] [address]- 2971 Nov, [facility] [id number], [place] [address]- 2863 Nov, Type 2 diabetes mellitus without complications E11.9 [facility] [id number] [place] [address] 44521- 7444 Oct, Type 2 diabetes mellitus without complications E11.9 [facility] [id number] [place] [address] 87830- 7791 Aug, [facility] [id number] [place] [address] 04680- 0359 Aug, Type 2 diabetes mellitus without complications E11.9 [facility] [id number] [place] [address] 82303- 0625 Jun, Type 2 diabetes mellitus without complications E11.9 and 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 group home use of antiplatelet drug Z79.02 [facility] [id number] [place] [address] 53099- 1712 May, [facility] [id number] [place] [address] 51862- 2038 May, Diabetes type 2, controlled E11.9 [facility] [id number] [place] [address] 49637- 8407 Apr, Diabetes type 2, controlled E11.9 [facility] [address] [place] [address] 94611- 9849 Mar, Diabetes type 2, controlled E11.9 ; Knee pain, right M25.561 ; Other chronic pain G89.29 and Medication monitoring encounter Z51.81 [facility] [address] [place] [address] 55359- 2185 Feb, Type 2 diabetes mellitus without complications E11.9 ; High risk medication use Z79.899 and Anxiety F41.9 [facility] [address], [place] [address]- 8004 10 Jan, 2015 Diabetes 250.00 [facility] [id number] [place] [address] 36509- 5426 Dec, Diabetes 250.00 [facility] [address] [facility] [id number] [place] [address]- 8986 Nov, Diabetes 250.00 [facility] [address] [facility] [id number] [place] [address]- 5566 Nov, [facility] [address] [facility] [id number] [place] [address]- 9635 Oct, Diabetes mellitus type 1 250.01 and High risk medication use V58.69 [facility] [address] [id number] [place] [address]- 4596 Oct, [facility] [address] [facility] [id number] [place] [address]- 3669 September, [facility] [address] [facility] [id number] [place] [address]- 9158 Aug, [facility] [address] [place] [address]- 9139 Aug, [facility] [address] [facility] [id number] [place] [address]- 8515 Jul, [facility] [id number] [place] [address]- 2768 Jul, [facility] [id number] [place] [address]- 8434 Jun, [facility] [address] [place] [address]- 5756 Jun, [facility] [address] [facility] [id number] [place] [address]- 7432 Jun, [facility] [address] [facility] [id number] [place] [address]- 7176 May, [facility] [address] [facility] [id number] [address]- 8476 May, [facility] [id number] [address]- 5616 Apr, [facility] [place] [facility] [address] [id number] [place] [address]77 Apr, [facility] [place] [facility] [address] [id number] [place] 6636 Apr, [facility] [place] [facility] [address] [id number] [place] 4888 Apr, [facility] [place] [facility] [address] [id number] [place] [address]- 6777 Apr, [facility] [place] [facility] [address] [id number] [place] [address]- 4884 Apr, [facility] [place] [facility] [address] [id number] [place] [address]- 9489 Feb, [facility] [place] [facility] [address] [id number] [place] [address]- 9406 Feb, [facility] [place] [facility] [address] [id number] [place] [address]- 1681 Feb, [facility] [place] [facility] [address] [id number] [place] [address]- 6111 Feb, [facility] [place] [facility] [address] [id number] [place] [address]- 7767 Dec, [facility] [place] [facility] [address] [id number] [address]- 7097 Dec, [facility] [place] [facility] [address] [id number], [place] [address]- 5014 Nov, [facility] [place] [facility] [address] [id number] [place] [address]- 5486 Nov, [facility] [place] [facility] [address] [id number] [place] [address]- 4966 Oct, [facility] [place] [facility] [address] [id number] [place] [address]- 4831 Oct, [facility] [place] [facility] [address] [id number] [place] [address]- 0845 Oct, [facility] [place] [facility] [address] [id number] [place] [address]- 1742 Oct, [facility] [place] [facility] [address] [id number] [place] [address]- 8615 Oct, [facility] [place] [facility] [address] [id number] [place] [address]- 0024 Oct, [facility] [place] [facility] [address] [id number] [place] [address]- 6970 September, [facility] [place] [facility] [address] [id number] [place] [address]- 1278 September, [facility] [place] [facility] [address] [id number] [place] [address]- 1985 September, [facility] [place] [facility] [address] [id number] [place] [address]- 4151 September, [facility] [place] [facility] [address] [id number] [place] [address]- 5725 September, [facility] [place] [facility] [address] [id number] [place] [address]- 5412 September, [facility] [place] [facility] [address] [id number] [place] [address]- 8698 Aug, [facility] [place] [facility] [address] [id number] [place] [address]- 6764 Aug, [facility] [place] [facility] [address] [id number] [place] [address]- 6941 Aug, [facility] [place] [facility] [address] [id number] [place] [address]- 0356 Aug, [facility] [place] [facility] [address] [id number] [place] [address]- 0391 Aug, [facility] [place] [facility] [address] [id number] [place] [address]- 5169 Aug, [facility] [place] [facility] [address] [id number] [place] [address]- 8232 Jul, [facility] [place] [facility] [address] [id number] [place] [address]- 2096 Jul, [facility] [place] [facility] [address] [id number] [place] [address]- 2546 Jul, [facility] [place] [facility] [address] [id number] [place] [address] 2543 Jul, [facility] [place] [facility] [address] [id number] [place] [address]- 8331 May, [facility] [place] [facility] [address] [id number] [place] [address]- 1497 May, [facility] [address] [id number] [place] [address]- 3269 Apr, [facility] [address] [id number] [place] [address]- 5130 Apr, [facility] [place] [facility] [address] [id number] [place] [address]- 3274 Apr, [facility] [place] [facility] [address] [id number] [place] [address]- 0400 Apr, [facility] [place] [facility] [address] [id number] [place] [address]- 4163 Apr, [facility] [place] [facility] [address] [id number], [place] [address]- 6523 Apr, [facility] [place] [facility] [address] [id number] [place] [address]- 2601 Feb, [facility] [place] [facility] [address] [id number] [place] [address]- 2546 Feb, [facility] [place] [facility] [address] [id number] [place] [address]- 2546 Feb, [facility] [place] [facility] [address] [id number], [place] [address]- 9330 Feb, [facility] [place] [facility] [address] [id number] [place] [address]- 0279 Feb, [facility] [place] [facility] [address] [id number] [place] [address]- 3543 Feb, [facility] [place] [facility] [address] [id number] [place] [address]- 7969 Feb, [facility] [place] [facility] [address] [id number] [place] 7288 Feb, [facility] [place] [facility] [address] [id number] [place] [address]- 7324 Jan, [facility] [place] [facility] [address] [id number] [place] [address]- 0586 Jan, [facility] [place] [facility] [address] [id number] [place] [address]- 8777 Jan, [facility] [place] [facility] [address] [id number] [place] [address]- 2241 Jan, [facility] [place] [facility] [address] [id number] [place] [address]- 3257 Dec, [facility] [place] [facility] [address] [id number] [place] [address]- 0453 Dec, [facility] [place] [facility] [address] [id number], [place] [address]- 8280 Dec, [facility] [place] [facility] [address] [id number], [place] [address]- 4705 Nov, [facility] [place] [facility] [address] [id number] [place] 3375 Nov, [facility] [place] [facility] [address] [id number] [id number] [address] Oct, [facility] [place] [facility] [address] [id number] [place] [address] September, [facility] [place] [facility] [address] [id number] [place] [address] September, [facility] [address] [id number] [place] [address] September, [facility] [address] [id number] [place] [address] Aug, [facility] [address] [id number] [place] [address] 16 Aug, 2012 [facility] [address] [id number] [place] [address] 15 Aug, 2012 [facility] [address] [id number] [place] [address] Jul, [facility] [address] [id number] [place] [address] Jul, [facility] [address] [id number] [place] [address] Jun, [facility] [address] [id number] [place] [address] Jun, [facility] [address] [id number] [place] [address] Jun, [facility] [address] [id number] [place] [address] Jun, [facility] [address] [id number] [place] [address] May, [facility] [address] [id number] [place] [address] May, [facility] [place] [facility] [address] [id number] [place] [address] Apr, [facility] [address] [id number] [place] [address] Apr, [facility] [address] [id number] [place] [address] Apr, [facility] [place] [facility] [address] [id number] [place] [address] Apr, [facility] [place] [facility] [address] [id number], [place] [address] Apr, [facility] [place] [facility] [address] [facility] [id number] [place] [address] Apr, [facility] [place] [facility] [address] [id number] [address] Mar, [facility] [place] [facility] [address] [id number] [place] [address] Mar, [facility] [place] [facility] [address] [facility] [id number], [place] [address] Mar, [facility] [place] [facility] [address] [facility] [id number] [place] [address] Mar, [facility] [place] [facility] [address] [id number], [place] [address] Mar, [facility] [place] [facility] [address] [facility] [id number], [place] [address] Mar, [facility] [place] [facility] [address] [facility] [id number], [place] [address] Feb, [facility] [place] [facility] [address] [facility] [id number], [place] [address] Feb, [facility] [place] [facility] [address] [id number], [place] [address] Feb, [facility] [place] [facility] [address] [id number] [address] Feb, [facility] [place] [facility] [address] [facility] [id number], [place] [address] Feb, [facility] [place] [facility] [address] [facility] [id number], [place] [address] 2548 Jan, [facility] [place] [facility] [address] [id number] [place] [address] 06 Jan, 2012 [facility] [place] [facility] [address] [id number] [place] [address] Jan, [facility] [place] [facility] [address] [id number] [place] [address] Dec, [facility] [place] [facility] [address] [id number] [place] [address] Dec, [facility] [place] [facility] [address] [id number] [place] [address] Nov, [facility] [place] [facility] [address] [id number] [place] [address] 7668 Oct, [facility] [place] [facility] [address] [id number] [place] [address] Oct, [facility] [place] [facility] [address] [id number] [place] [address] Oct, [facility] [place] [facility] [address] [id number] [place] [address] Oct, [facility] [place] [facility] [address] [id number] [place] [address] Oct, [facility] [place] [facility] [address] [id number] [place] [address] September, [facility] [place] [facility] [address] [id number] [place] [address] 18 Aug, 2011 [facility] [place] [facility] [address] [id number] [place] [address] 359[address] 18 Aug, 2011 [facility] [place] [facility] [address] [id number] [place] [address]9 17 Aug, 2011 [facility] [place] [facility] [address] [id number] [place] [address] 6939 16 Aug, 2011 [facility] [place] [facility] [address] [id number] [place] [address]- [address]128 13 Aug, 2011 [facility] [place] [facility] [address] [id number] [place] [address] 11 Aug, 2011 [facility] [place] [facility] [address] [id number] [place] [address] Aug, [facility] [place] [facility] [address] [id number] [place] [address]- [address]226 05 Aug, 2011 [facility] [place] [facility] [address] [id number] [place] [address]- 5836 Aug, [facility] [address] [id number] [place] [address] Jul, [facility] [place] [facility] [address] [id number] [place] [address]- 2006 Jul, [facility] [address] [id number] [place] [address] Jul, [facility] [address] [id number] [place] [address]- 5187 17 Jul, 2011 [facility] [address] [id number] [place] [address] Jul, [facility] [address] [id number] [place] [address] 15 Jun, 2011 [facility] [place] [facility] [address] [id number] [place] [address] 14 Jun, 2011 [facility] [place] [facility] [address] [id number] [place] [address]- [address]96 08 Jun, 2011 [facility] [place] [facility] [address] [id number] [place] [address]407 Jun, [facility] [place] [facility] [address] [id number] [place] [address] 19 May, 2011 [facility] [place] [facility] [address] [id number] [place] [address] 5406 13 May, 2011 [facility] [place] [facility] [address] [id number] [place] [address] 4921 10 May, 2011 [facility] [address] [id number] [place] [address]- 74[address] May, [facility] [address] [id number] [place] [address] 1106 May, [facility] [address] [id number] [place] [address] 5435 May, [facility] [address] [id number] [place] [address]- [address]43 May, [facility] [address] [id number] [place] [address] 2745 Apr, [facility] [address] [id number] [place] [address] 7919 Apr, [facility] [address] [id number] [place] [address] 9900 Apr, [facility] [address] [id number] [place] [address] 1434 Apr, [facility] [address] [id number] [place] [address]- 7326 Apr, [facility] [place] [address] [id number] [place] [address]- [address]246 Apr, [facility] [address] [id number] [place] [address]- 9560 Apr, [facility] [place] [facility] [address] [id number] [place] [address]- 3572 Apr, [facility] [place] [facility] [address] [id number] [place] [address]- 5153 Apr, [facility] [place] [facility] [address] [id number] [place] [address]- 1233 Apr, [facility] [address] [id number] [place] [address]- 8674 Mar, [facility] [place] [facility] [address] [id number] [place] [address]- 8135 16 Mar, 2011 [facility] [place] [facility] [address] [id number] [place] [address]- 9325 Feb, [facility] [place] [facility] [address] [id number] [place] [address]- [address]244 Jun, [facility] [place] [facility] [address] [id number] [place] [address]- 9909 Apr, [facility] [place] [facility] [address] [id number] [place] [address]- 7314 Feb, [facility] [place] [facility] [address] [id number] [place] [address]- 6434 Feb, [facility] [place] [facility] [address] [id number] [place] [address]- 2738 Feb, [facility] [place] [facility] [address] [id number] [place] [address]- 5838 Apr, [facility] [place] [facility] [address] [id number] [place] [address]- 4077 Apr, [facility] [place] [facility] [address] [id number] [place] [address]- 8792 Mar, [facility] [place] [facility] [address] [id number] [place] [address]- 9712 Mar, [facility] [place] [facility] [address] [id number], [place] [address] Mar, [facility] [place] [facility] [address] [id number] [place] [address] 1935 Feb, [facility] [place] [facility] [address] [id number] [place] [address]- 5321 Feb, [facility] [place] [facility] [address] [id number] [place] [address]- 7211 Feb, [facility] [place] [facility] [address] [id number], [place] [address] Jan, IMMUNIZATIONS No Known Immunizations SOCIAL HISTORY Never Assessed REASON FOR VISIT medication refill PLAN OF CARE VITAL SIGNS MEDICATIONS Medication Instructions Dosage Frequency Start Date End Date Duration Status Clonazepam 1 MG Orally 3 times a day 1 tablet 8h Jun, 28 days Active RESULTS No Results PROCEDURES [...]
--- OUTSIDE RECORDS SUMMARY | 2018-04-28 05:19 | XMS REPORT ---
Author Author MARLEY MCGRATH Organization [facility] Address [address] [place] [address] Care Team Providers Care Order Checker Name Role Phone MARLEY MCGRATH Unavailable PROBLEMS Type Condition ICD9-CM Code MPU51-HP Code Onset Dates Condition Status SNOMED Code Problem Hammertoe of right foot M20.41 Active 650393337 Problem Moderate episode of recurrent major depressive disorder F33.1 Active 733357797 Problem Hypertriglyceridemia E78.1 Active 063880022 Problem Other chronic pain G89.29 Active 13693957 Problem Memory loss R41.3 Active 628845245 Problem 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.01 Active 9317325 Problem Chronic fatigue R53.82 Active 00223419 Problem Controlled type 2 diabetes mellitus without complication, without long -term current use of insulin E11.9 Active 228687796 Problem Chronic major depressive disorder, recurrent episode F33.9 Active 22438809 Problem Knee pain, right M25.561 Active 36956837 Problem Diabetes type 2, controlled E11.9 Active 68404583 Problem Type 2 diabetes mellitus without complications E11.9 Active 291381155 Problem Hypogonadism in male E29.1 Active 32636549 Problem prison (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 Z79.01 Active 315775938 ALLERGIES No Information ENCOUNTERS Encounter Location Date Diagnosis [facility] [id number], [place] [address] Feb, [facility] [id number], [place] [address] Jan, [facility] [id number], [place] [address] Jan, Hypogonadism in male E29.1 [facility] [id number], [place] [address] 8865 Jan, [facility] [address], [place] [address] 2546 Dec, Hypogonadism in male E29.1 [facility] [address], [place] [address] 2546 Dec, Medicare welcome exam Z00.00 [facility] [address], [place] [address] 2546 Dec, Hypogonadism in male E29.1 [facility] [address], [place] [address] 2546 Dec, [facility] [address], [place] [address] 2546 Nov, Hypogonadism in male E29.1 [facility] [address], [place] [address] 2546 Nov, Type 2 diabetes mellitus without complications E11.9 and History of Coumadin therapy Z92.29 [facility] [address], [place] [address] 2546 Nov, Medicare welcome exam Z00.00 [facility] [address], [place] [address] 2545 Nov, Type 2 diabetes mellitus without complications E11.9 ; History of Coumadin therapy Z92.29 and Hypogonadism in male E29.1 [facility] [address], [place] [address] 2546 Nov, [facility] [address], [place] [address] 2546 Oct, [facility] [address], [place] [address] 2546 Oct, Diabetes type 2, controlled E11.9 [facility] [address], [place] [address] 2546 Oct, Medicare welcome exam Z00.00 [facility] [address], [place] [address] 9070 Oct, Hypogonadism in male E29.1 [facility] [address], [place] [address] Oct, [facility] [address], [place] [address]26 September, Hypogonadism in male E29.1 [facility] [id number] [place] [address]- 1237 September, Medicare welcome exam Z00.00 [facility] [address], [place] [address] 7433 10 Sep, 2017 Hypogonadism in male E29.1 [facility] [id number] [place] [address]- 4415 Aug, Other chronic pain G89.29 ; Memory loss R41.3 ; Controlled type 2 diabetes mellitus without complication, without long-term current use of insulin E11.9 and Chronic major depressive disorder, recurrent episode F33.9 [facility] [address], [place] [address] 8045 11 Aug, 2017 Medicare welcome exam Z00.00 [facility] [id number] [place] [address]- 9615 Aug, [facility] [address], [place] [address] Aug, Hypogonadism in male E29.1 [facility] [address], [place] [address] 6103 Jul, [facility] [address], [place] [address] 6508 Jul, Hypogonadism in male E29.1 [facility] [id number], [place] [address] 4842 Jul, [facility] [address], [place] [address] Jul, Hypogonadism in male E29.1 [facility] [address], [place] [address] 5530 Jul, Medicare welcome exam Z00.00 [facility] [address], [place] [address] 22 Jun, 2017 Medicare welcome exam Z00.00 [facility] [address], [place] [address] Jun, Fever R50.9 and Influenza B J10.1 [facility] [address] [place] [address]9668- 7409 Jun, Hypogonadism in male E29.1 [facility] [id number] [place] [address] 96[address]- 1568 Jun, Diabetes type 2, controlled E11.9 [facility] [id number] [place] [address] 71200- 2305 May, Hypogonadism in male E29.1 [facility] [address], [place] [address] 5[address] May, 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.01 [facility] [address], [place] [address]- 0071 Apr, Hypogonadism in male E29.1 [facility] [address], [place] [address] 8308 Apr, [facility] [id number] [place] [address] 76367- 254 Apr, Medicare welcome exam Z00.00 and 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.01 [facility] [address] [place] [address] 84133- 9078 Apr, Hypogonadism in male E29.1 [facility] [address], [place] [address] 3512 Mar, Diabetes type 2, controlled E11.9 [facility] [address], [place] [address] 6040 Mar, Hypogonadism in male E29.1 [facility] [address] [place] [address] 49[address]- 1040 Mar, Hypogonadism in male E29.1 [facility] [id number] [place] [address] 43179- 4130 Feb, Hypogonadism in male E29.1 [facility] [id number] [place] [address] 06[address]- 5940 Feb, Malaise R53.81 [facility] [id number] [place] [address] 31583- 0647 Feb, [facility] [id number] [place] [address] 47385- 6596 Feb, Diabetes type 2, controlled E11.9 [facility] [id number] [place] [address] 13673- 9608 Feb, Chronic fatigue R53.82 ; Malaise R53.81 and Moderate episode of recurrent major depressive disorder F33.1 [facility] [address] [place] [address] 26662- 2335 Jan, Diabetes type 2, controlled E11.9 [facility] [address] [place] [address] 06315- 9518 Jan, 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.01 and prison (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 Z79.01 [facility] [address], [place] [address]- 3957 Dec, Diabetes type 2, controlled E11.9 and Hypertriglyceridemia E78.1 [facility] [id number] [place] [address] 04674- 8603 Dec, Diabetes type 2, controlled E11.9 [facility] [id number] [place] [address] 55968- 5092 Dec, High risk medication use Z79.899 and prison (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 Z79.01 [facility] [id number] [place] [address] 33971- 0894 Dec, High risk medication use Z79.899 [facility] [id number] [place] [address] 33821- 2548 Nov, Diabetes type 2, controlled E11.9 [facility] [id number] [place] [address] 34845- 1151 Oct, Diabetes type 2, controlled E11.9 [facility] [id number] [place] [address] 94881- 7314 September, Diabetes type 2, controlled E11.9 [facility] [id number] [place] [address] 80510- 2689 Aug, 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.01 [facility] [id number] [place] [address] 66621- 1893 Aug, Hematoma of arm, right, initial encounter S40.021A and prison (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 Z79.01 [facility] [id number] [place] [address] 16944- 4213 Aug, [facility] [id number] [place] [address] 46588 -6045 Aug, Cellulitis of right upper extremity L03.113 [facility] [id number] [place] [address] 00209- 8519 14 Aug, 2016 Diabetes type 2, controlled E11.9 [facility] [id number] [place] [address] 37367- 2708 Aug, Hammertoe of right foot M20.41 ; Hallux abducto valgus, left M20.12 and Onychomycosis B35.1 [facility] [id number] [place] [address] 38073- 7123 Aug, prison (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 Z79.01 [facility] [address], [place] [address]- 9152 Aug, prison (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 Z79.01 [facility] [address], [place] [address]- 1776 Aug, 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.01 [facility] [address], [place] [address] Aug, Right shoulder pain M25.511 and Closed nondisplaced fracture of acromial end of right clavicle, initial encounter S42.034A [facility] [id number] [place] [address] 52499- 9925 Jul, Diabetes type 2, controlled E11.9 [facility] [address] [place] [address] 58592- 5219 Jun, Diabetes type 2, controlled E11.9 and 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.01 [facility] [address], [place] [address]- 6490 May, [facility] [address], [place] [address]- 1782 Apr, [facility] [address], [place] [address]- 4165 Mar, [facility] [address], [place] [address]- 9644 Feb, [facility] [address], [place] [address]- 8034 Dec, Diabetes type 2, controlled E11.9 [facility] [address] 7206 Dec, [facility] [address], [place] [address]- 3546 Nov, [facility] [address], [place] [address]- 7611 Nov, Type 2 diabetes mellitus without complications E11.9 [facility] [id number] [place] [address] 11571- 5168 Oct, Type 2 diabetes mellitus without complications E11.9 [facility] [address] [place] [address] 16105- 9293 Aug, [facility] [id number] [place] [address] 40225- 2274 Aug, Type 2 diabetes mellitus without complications E11.9 [facility] [id number] [place] [address] 48351- 3547 Jun, Type 2 diabetes mellitus without complications E11.9 and 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 usp use of antiplatelet drug Z79.02 [facility] [id number] [place] [address] 17676- 5265 May, [facility] [id number] [place] [address] 29789- 7505 May, Diabetes type 2, controlled E11.9 [facility] [id number] [place] [address] 23702- 2142 Apr, Diabetes type 2, controlled E11.9 [facility] [address] [place] [address] 96989- 2655 Mar, Diabetes type 2, controlled E11.9 ; Knee pain, right M25.561 ; Other chronic pain G89.29 and Medication monitoring encounter Z51.81 [facility] [address] [place] [address] 64975- 3995 Feb, Type 2 diabetes mellitus without complications E11.9 ; High risk medication use Z79.899 and Anxiety F41.9 [facility] [address], [place] [address]- 2820 10 Jan, 2015 Diabetes 250.00 [facility] [id number] [place] [address] 77823- 8336 Dec, Diabetes 250.00 [facility] [address] [facility] [id number] [place] [address]- 9199 Nov, Diabetes 250.00 [facility] [address] [facility] [id number] [place] [address]- 5706 Nov, [facility] [address] [facility] [id number] [place] [address]- 6698 Oct, Diabetes mellitus type 1 250.01 and High risk medication use V58.69 [facility] [address] [id number] [place] [address]- 4226 Oct, [facility] [address] [facility] [id number] [place] [address]- 7475 September, [facility] [address] [facility] [id number] [place] [address]- 9323 Aug, [facility] [address] [place] [address]- 3950 Aug, [facility] [address] [facility] [id number] [place] [address]- 1054 Jul, [facility] [id number] [place] [address]- 2913 Jul, [facility] [id number] [place] [address]- 4070 Jun, [facility] [address] [place] [address]- 2686 Jun, [facility] [address] [facility] [id number] [place] [address]- 9581 Jun, [facility] [address] [facility] [id number] [place] [address]- 4166 May, [facility] [address] [facility] [id number], [place] [address]- 5996 May, [facility] [id number], [place] [address]- 6421 Apr, [facility] [place] [facility] [address] [id number] [place] 5640 Apr, [facility] [place] [facility] [address] [id number] [place] 5227 Apr, [facility] [place] [facility] [address] [id number] [place] 9034 Apr, [facility] [place] [facility] [address] [id number] [place] [address]- 1148 Apr, [facility] [place] [facility] [address] [id number] [place] [address]- 4342 Apr, [facility] [place] [facility] [address] [id number] [place] [address]- 4456 Feb, [facility] [place] [facility] [address] [id number] [place] [address]- 6118 Feb, [facility] [place] [facility] [address] [id number] [place] [address]- 9846 Feb, [facility] [place] [facility] [address] [id number] [place] [address]- 1987 Feb, [facility] [place] [facility] [address] [id number] [place] [address]- 4890 Dec, [facility] [place] [facility] [address] [id number], [place] [address]- 4342 Dec, [facility] [place] [facility] [address] [id number], [place] [address]- 1012 Nov, [facility] [place] [facility] [address] [id number] [place] [address]- 6932 Nov, [facility] [place] [facility] [address] [id number] [place] [address]- 9964 Oct, [facility] [place] [facility] [address] [id number] [place] [address]- 4960 Oct, [facility] [place] [facility] [address] [id number] [place] [address]- 6753 Oct, [facility] [place] [facility] [address] [id number] [place] [address]- 2877 Oct, [facility] [place] [facility] [address] [id number] [place] [address]- 4852 Oct, [facility] [place] [facility] [address] [id number] [place] [address]- 5114 Oct, [facility] [place] [facility] [address] [id number] [place] [address]- 9726 September, [facility] [place] [facility] [address] [id number] [place] [address]- 8337 September, [facility] [place] [facility] [address] [id number] [place] [address]- 1149 September, [facility] [place] [facility] [address] [id number] [place] [address]- 6161 September, [facility] [place] [facility] [address] [id number] [place] [address]- 2461 September, [facility] [place] [facility] [address] [id number] [place] [address]- 3399 September, [facility] [place] [facility] [address] [id number] [place] [address]- 3663 Aug, [facility] [place] [facility] [address] [id number] [place] [address]- 4189 Aug, [facility] [place] [facility] [address] [id number] [place] [address]- 0171 Aug, [facility] [place] [facility] [address] [id number] [place] [address]- 2839 Aug, [facility] [place] [facility] [address] [id number] [place] [address]- 7193 Aug, [facility] [place] [facility] [address] [id number] [place] [address]- 5805 Aug, [facility] [place] [facility] [address] [id number] [place] [address]- 8621 Jul, [facility] [place] [facility] [address] [id number] [place] [address]- 7696 Jul, [facility] [place] [facility] [address] [id number] [place] [address]- 2546 Jul, [facility] [place] [facility] [address] [id number] [place] [address] 2547 Jul, [facility] [place] [facility] [address] [id number] [place] [address]- 1164 May, [facility] [place] [facility] [address] [id number] [place] [address]- 6774 May, [facility] [address] [id number] [place] [address]- 3114 Apr, [facility] [address] [id number] [place] [address]- 9399 Apr, [facility] [place] [facility] [address] [id number] [place] [address]- 5101 Apr, [facility] [place] [facility] [address] [id number] [place] [address]- 7780 Apr, [facility] [place] [facility] [address] [id number] [place] [address]- 3557 Apr, [facility] [place] [facility] [address] [id number], [place] [address]- 8029 Apr, [facility] [place] [facility] [address] [id number] [place] [address]- 3835 Feb, [facility] [place] [facility] [address] [id number] [place] [address]- 2546 Feb, [facility] [place] [facility] [address] [id number] [place] [address]- 2546 Feb, [facility] [place] [facility] [address] [id number], [place] [address]- 8591 Feb, [facility] [place] [facility] [address] [id number] [place] [address]- 1016 Feb, [facility] [place] [facility] [address] [id number] [place] [address]- 1219 Feb, [facility] [place] [facility] [address] [id number] [place] [address]- 5666 Feb, [facility] [place] [facility] [address] [id number] [place] 9155 Feb, [facility] [place] [facility] [address] [id number] [place] [address]- 2674 Jan, [facility] [place] [facility] [address] [id number] [place] [address]- 5165 Jan, [facility] [place] [facility] [address] [id number] [place] [address]- 8618 Jan, [facility] [place] [facility] [address] [id number] [place] [address]- 7793 Jan, [facility] [place] [facility] [address] [id number] [place] [address]- 2172 Dec, [facility] [place] [facility] [address] [id number] [place] [address]- 0502 Dec, [facility] [place] [facility] [address] [id number], [place] [address]- 9160 Dec, [facility] [place] [facility] [address] [id number], [place] [address]- 1588 Nov, [facility] [place] [facility] [address] [id number] [place]- 1397 Nov, [facility] [place] [facility] [address] [id number] [place] [address] Oct, [facility] [place] [facility] [address] [id number] [place] [address] September, [facility] [place] [facility] [address] [id number] [place] [address] September, [facility] [address] [id number] [place] [address] September, [facility] [address] [id number] [place] [address] Aug, [facility] [address] [id number] [place] [address] 16 Aug, 2012 [facility] [address] [id number] [place] [address] 15 Aug, 2012 [facility] [address] [id number] [place] [address] Jul, [facility] [address] [id number] [place] [address] Jul, [facility] [address] [id number] [place] [address] Jun, [facility] [address] [id number] [place] [address] Jun, [facility] [address] [id number] [place] [address] Jun, [facility] [address] [id number] [place] [address] Jun, [facility] [address] [id number] [place] [address] May, [facility] [address] [id number] [place] [address] May, [facility] [place] [facility] [address] [id number] [place] [address] Apr, [facility] [address] [id number] [place] [address] Apr, [facility] [address] [id number] [place] [address] Apr, [facility] [place] [facility] [address] [id number] [place] [address] Apr, [facility] [place] [facility] [address] [id number], [place] [address] Apr, [facility] [place] [facility] [address] [facility] [id number] [place] [address] Apr, [facility] [place] [facility] [address] [id number], [place] [address] Mar, [facility] [place] [facility] [address] [id number] [place] [address] Mar, [facility] [place] [facility] [address] [facility] [id number], [place] [address] Mar, [facility] [place] [facility] [address] [facility] [id number] [place] [address] Mar, [facility] [place] [facility] [address] [id number], [place] [address] Mar, [facility] [place] [facility] [address] [facility] [id number], [place] [address] Mar, [facility] [place] [facility] [address] [facility] [id number], [place] [address] Feb, [facility] [place] [facility] [address] [facility] [id number], [place] [address] Feb, [facility] [place] [facility] [address] [id number], [place] [address] Feb, [facility] [place] [facility] [address] [id number], [place] [address] 254 Feb, [facility] [place] [facility] [address] [facility] [id number], [place] [address] Feb, [facility] [place] [facility] [address] [facility] [id number], [place] [address] Jan, [facility] [place] [facility] [address] [id number] [place] [address] 06 Jan, 2012 [facility] [place] [facility] [address] [id number] [place] [address] Jan, [facility] [place] [facility] [address] [id number] [place] [address] Dec, [facility] [place] [facility] [address] [id number] [place] [address] Dec, [facility] [place] [facility] [address] [id number] [place] [address] Nov, [facility] [place] [facility] [address] [id number] [place] [address] Oct, [facility] [place] [facility] [address] [id number] [place] [address] Oct, [facility] [place] [facility] [address] [id number] [place] [address] Oct, [facility] [place] [facility] [address] [id number] [place] [address] Oct, [facility] [place] [facility] [address] [id number] [place] [address] Oct, [facility] [place] [facility] [address] [id number] [place] [address] September, [facility] [place] [facility] [address] [id number] [place] [address] 18 Aug, 2011 [facility] [place] [facility] [address] [id number] [place] [address] 18 Aug, 2011 [facility] [place] [facility] [address] [id number] [place] [address] 17 Aug, 2011 [facility] [place] [facility] [address] [id number] [place] [address] 16 Aug, 2011 [facility] [place] [facility] [address] [id number] [place] [address] 13 Aug, 2011 [facility] [place] [facility] [address] [id number] [place] [address] 11 Aug, 2011 [facility] [place] [facility] [address] [id number] [place] [address] Aug, [facility] [place] [facility] [address] [id number] [place] [address] 05 Aug, 2011 [facility] [place] [facility] [address] [id number] [place] [address] Aug, [facility] [address] [id number] [place] [address] Jul, [facility] [place] [facility] [address] [id number] [place] [address] Jul, [facility] [address] [id number] [place] [address] Jul, [facility] [address] [id number] [place] [address] 17 Jul, 2011 [facility] [address] [id number] [place] [address] Jul, [facility] [address] [id number] [place] [address] 15 Jun, 2011 [facility] [place] [facility] [address] [id number] [place] [address] 14 Jun, 2011 [facility] [place] [facility] [address] [id number] [place] [address] 08 Jun, 2011 [facility] [place] [facility] [address] [id number] [place] [address] Jun, [facility] [place] [facility] [address] [id number] [place] [address] 19 May, 2011 [facility] [place] [facility] [address] [id number] [place] [address] 13 May, 2011 [facility] [place] [facility] [address] [id number] [place] [address] 10 May, 2011 [facility] [address] [id number] [place] [address] May, [facility] [address] [id number] [place] [address] May, [facility] [address] [id number] [place] [address] May, [facility] [address] [id number] [place] [address] May, [facility] [address] [id number] [place] [address] Apr, [facility] [address] [id number] [place] [address] Apr, [facility] [address] [id number] [place] [address] Apr, [facility] [address] [id number] [place] [address] Apr, [facility] [address] [id number] [place] [address] Apr, [facility] [address] [id number] [place] [address] Apr, [facility] [address] [id number] [place] [address] Apr, [facility] [place] [facility] [address] [id number] [place] [address] Apr, [facility] [place] [facility] [address] [id number] [place] [address] Apr, [facility] [place] [facility] [address] [id number] [place] [address] Apr, [facility] [address] [id number] [place] [address] Mar, [facility] [place] [facility] [address] [id number] [place] [address] 16 Mar, 2011 [facility] [place] [facility] [address] [id number] [place] [address] Feb, [facility] [place] [facility] [address] [id number] [place] [address] Jun, [facility] [place] [facility] [address] [id number] [place] [address] Apr, [facility] [place] [facility] [address] [id number] [place] [address] Feb, [facility] [place] [facility] [address] [id number] [place] [address] Feb, [facility] [place] [facility] [address] [id number] [place] [address]70 Feb, [facility] [place] [facility] [address] [id number] [place] [address] 64[address] Apr, [facility] [place] [facility] [address] [id number] [place] [address] Apr, [facility] [place] [facility] [address] [id number] [place] [address] Mar, [facility] [place] [facility] [address] [id number] [place] [address] Mar, [facility] [place] [facility] [address] [id number], [place] [address] Mar, [facility] [place] [facility] [address] [id number] [place] [address] Feb, [facility] [place] [facility] [address] [id number] [place] [address] Feb, [facility] [place] [facility] [address] [id number] [place] [address] Feb, [facility] [place] [facility] [address] [id number], [place] [address] Jan, IMMUNIZATIONS Vaccine Route Administration Date Status TESTOSTERONE (PT'S OWN) IM Intramuscular Dec 30, 2017 Administered SOCIAL HISTORY Never Assessed REASON FOR VISIT Patient came in today for a testosterone injection. [place] PLAN OF CARE VITAL SIGNS MEDICATIONS Unknown Medications RESULTS No Results PROCEDURES Procedure Date Ordered Result Body Site TESTOSTERONE (PT'S OWN) Dec 30, 2017 THER/PROPH/DIAG INJ, SC/IM Dec 30, 2017 INSTRUCTIONS MEDICATIONS ADMINISTERED No Known Medications MEDICAL [...]
--- OUTSIDE RECORDS SUMMARY | 2018-04-28 05:20 | XMS REPORT ---
Author Author MARLEY MCGRATH Organization [facility] Address [address] [place] [address] Care Team Providers Care Java Support Engineer Name Role Phone MARLEY MCGRATH Unavailable PROBLEMS Type Condition ICD9-CM Code [id number] Code Onset Dates Condition Status SNOMED Code Problem Hammertoe of right foot M20.41 Active 655777953 Problem Moderate episode of recurrent major depressive disorder F33.1 Active 638870714 Problem Hypertriglyceridemia E78.1 Active 962879582 Problem Other chronic pain G89.29 Active 68675452 Problem Memory loss R41.3 Active 441286754 Problem 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.01 Active 4091583 Problem Chronic fatigue R53.82 Active 46434405 Problem Controlled type 2 diabetes mellitus without complication, without long -term current use of insulin E11.9 Active 398202364 Problem Chronic major depressive disorder, recurrent episode F33.9 Active 56402773 Problem Knee pain, right M25.561 Active 44298566 Problem Diabetes type 2, controlled E11.9 Active 04882713 Problem Type 2 diabetes mellitus without complications E11.9 Active 772578812 Problem Hypogonadism in male E29.1 Active 57679403 Problem longterm (current) use of anticoagulants Z79.01 Active 200722003 ALLERGIES No Information ENCOUNTERS Encounter Location Date Diagnosis [facility] [id number], [place] [address] Jan, Hypogonadism in male E29.1 [facility] [id number], [place] [address] Jan, [facility] [id number], [place] [address] Dec, Hypogonadism in male E29.1 [facility] [id number], [place] [address] Dec, Medicare welcome exam Z00.00 [facility] [address] [facility] [id number], [place] [address] 2546 08 Dec, 2017 Hypogonadism in male E29.1 [facility] [address] [facility] [id number], [place] [address] 2546 07 Dec, 2017 [facility] [address] [facility] [id number], [place] [address] 2546 Nov, Hypogonadism in male E29.1 [facility] [address] [facility] [id number], [place] [address] 2546 20 Nov, 2017 Type 2 diabetes mellitus without complications E11.9 and History of Coumadin therapy Z92.29 [facility] [address] [facility] [id number], [place] [address] 2546 18 Nov, 2017 Medicare welcome exam Z00.00 [facility] [address], [place] [address] Nov, Type 2 diabetes mellitus without complications E11.9 ; History of Coumadin therapy Z92.29 and Hypogonadism in male E29.1 [facility] [address] [facility] [id number], [place] [address] 74[address] Nov, [facility] [id number], [place] [address] Oct, [facility] [address] [facility] [id number], [place] [address] Oct, Diabetes type 2, controlled E11.9 [facility] [address] [facility] [id number], [place] [address]45 Oct, Medicare welcome exam Z00.00 [facility] [address] [facility] [id number], [place] [address] 25[address] Oct, Hypogonadism in male E29.1 [facility] [address] [facility] [id number], [place] [address] Oct, [facility] [address] [id number] [address] September, Hypogonadism in male E29.1 [facility] [address] [id number], [place] [address] 6[address] 15 Sep, 2017 Medicare welcome exam Z00.00 [facility] [address], [place] [address] 10 Sep, 2017 Hypogonadism in male E29.1 [facility] [id number] [place] [address]11- 5882 Aug, Other chronic pain G89.29 ; Memory loss R41.3 ; Controlled type 2 diabetes mellitus without complication, without long-term current use of insulin E11.9 and Chronic major depressive disorder, recurrent episode F33.9 [facility] [address], [place] [address] 11 Aug, 2017 Medicare welcome exam Z00.00 [facility] [id number] [place] [address]- 0084 Aug, [facility] [id number] [place] [address]4968 Aug, Hypogonadism in male E29.1 [facility] [address] [id number], [place] [address] 9[address] 27 Jul, 2017 [facility] [address] [id number], [place] [address] 4[address] Jul, Hypogonadism in male E29.1 [facility] [address], [place] [address] Jul, [facility] [address] [id number], [place] [address] Jul, Hypogonadism in male E29.1 [facility] [address] [address] 09 Jul, 2017 Medicare welcome exam Z00.00 [facility] [id number] [place] [address] 07020- 3312 Jun, Medicare welcome exam Z00.00 [facility] [address], [place] [address] 19 Jun, 2017 Fever R50.9 and Influenza B J10.1 [facility] [address], [place] [address] 9[address] 13 Jun, 2017 Hypogonadism in male E29.1 [facility] [id number] [place] [address] 02816- 6916 Jun, Diabetes type 2, controlled E11.9 [facility] [id number] [place] [address] 16646- 0469 May, Hypogonadism in male E29.1 [facility] [id number] [place] [address] 97192- 0976 May, longterm (current) use of anticoagulants Z79.01 [facility] [id number] [place] [address] 63335- 2734 Apr, Hypogonadism in male E29.1 [facility] [id number] [place] [address] 43750- 1678 Apr, [facility] [id number] [place] [address] 66841- 8403 Apr, Medicare welcome exam Z00.00 and longterm (current) use of anticoagulants Z79.01 [facility] [address], [place] [address]- 6705 Apr, Hypogonadism in male E29.1 [facility] [id number] [place] [address] 84672- 8295 Mar, Diabetes type 2, controlled E11.9 [facility] [address], [place] [address]- 8[address] 16 Mar, 2017 Hypogonadism in male E29.1 [facility] [id number] [place] [address] 98416- 1710 Mar, Hypogonadism in male E29.1 [id number] [place] [address] 20806- 7528 Feb, Hypogonadism in male E29.1 [facility] [id number] [place] [address] 27693- 9201 Feb, Malaise R53.81 [id number] [place] [address] 96191- 9150 Feb, [address] [id number] [place] [address] 71630- 4316 Feb, Diabetes type 2, controlled E11.9 [address] [id number] [place] [address] 62333- 3306 Feb, Chronic fatigue R53.82 ; Malaise R53.81 and Moderate episode of recurrent major depressive disorder F33.1 [address] [id number] [place] [address] 60423- 5592 Jan, Diabetes type 2, controlled E11.9 [address] [id number] [place] [address] 54899- 5395 Jan, 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.01 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 [id number] [place] [address] 36662- 1281 Dec, Diabetes type 2, controlled E11.9 and Hypertriglyceridemia E78.1 [address] [id number] [place] [address] 37434- 5493 Dec, Diabetes type 2, controlled E11.9 [id number] [place] [address] 12852- 4449 Dec, High risk medication use Z79.899 and longterm (current) use of anticoagulants Z79.01 [address] [id number] [place] [address] 37451- 9209 Dec, High risk medication use Z79.899 [place] [id number] [place] [address] 43496- 6675 Nov, Diabetes type 2, controlled E11.9 [facility] [id number] [place] [address] 62759- 8407 Oct, Diabetes type 2, controlled E11.9 [facility] [id number] [place] [address] 21443- 5021 September, Diabetes type 2, controlled E11.9 [address] [id number] [place] [address] 80265- 0070 Aug, 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 [id number] [place] [address] 62720- 9918 Aug, Hematoma of arm, right, initial encounter S40.021A 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 [id number] [place] [address] 59384- 3305 Aug, [facility] [id number] [place] [address] 95555 -7839 Aug, Cellulitis of right upper extremity L03.113 [id number] [place] [address] 43854- 7087 Aug, Diabetes type 2, controlled E11.9 [id number] [place] [address] 18585- 1124 Aug, Hammertoe of right foot M20.41 ; Hallux abducto valgus, left M20.12 and Onychomycosis B35.1 [address] [id number] [place] [address] 09001- 3136 Aug, 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 [id number] [place] [address] 13268- 8890 Aug, longterm (current) use of anticoagulants Z79.01 [address], [place] [address]- 0698 Aug, longterm (current) use of anticoagulants Z79.01 [facility] [address], [place] [address] Aug, Right shoulder pain M25.511 and Closed nondisplaced fracture of acromial end of right clavicle, initial encounter S42.034A [facility] [id number] [place] [address] 26353- 9222 Jul, Diabetes type 2, controlled E11.9 [facility] [address], [place] [address]- 8019 Jun, Diabetes type 2, controlled E11.9 and longterm (current) use of anticoagulants Z79.01 [facility] [address], [place] [address]- 2034 May, [facility] [id number] [place] [address] 34134- 0126 Apr, [facility] [address], [place] [address]- 2983 Mar, [address] [id number] [place] [address] 33013- 6412 Feb, [facility] [address], [place] [address]- 0704 Dec, Diabetes type 2, controlled E11.9 [facility] [address], [place] [address]- 2423 Dec, [facility] [address], [place] [address]- 9811 Nov, [facility] [id number] [place] [address] [id number]- 0657 Nov, Type 2 diabetes mellitus without complications E11.9 [facility] [id number], [place] [address]- 1373 Oct, Type 2 diabetes mellitus without complications E11.9 [facility] [address], [place] [address]- 1602 Aug, [facility] [id number] [place] [address] 82725- 4263 Aug, Type 2 diabetes mellitus without complications E11.9 [facility] [id number] [place] [address] 62537- 4958 Jun, Type 2 diabetes mellitus without complications E11.9 and 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.02 [address] [id number] [place] [address] 60285- 1385 May, [address] [id number] [place] [address] 70146- 1652 May, Diabetes type 2, controlled E11.9 [place] [id number] [place] [address] 91075- 3058 Apr, Diabetes type 2, controlled E11.9 [place] [id number] [place] [address] 04832- 5460 Mar, Diabetes type 2, controlled E11.9 ; Knee pain, right M25.561 ; Other chronic pain G89.29 and Medication monitoring encounter Z51.81 [address] [place] [id number] [place] [address] 15075- 4832 Feb, Type 2 diabetes mellitus without complications E11.9 ; High risk medication use Z79.899 and Anxiety F41.9 [address] [place], [place] [address]- 6870 Jan, Diabetes 250.00 [place] [id number] [place] [address] 26558- 4357 Dec, Diabetes 250.00 [place] [id number], [place] [address]- 7635 Nov, Diabetes 250.00 [address] [id number] [place] [address] 48999- 4126 Nov, [facility] [address] [facility] [id number], [place] [address]- 5560 Oct, Diabetes mellitus type 1 250.01 and High risk medication use V58.69 [facility] [address] [id number] [place] [address]- 2546 Oct, [facility] [address] [facility] [id number], [place] [address]- 1936 September, [facility] [address] [facility] [id number] [place] [address]- 2506 Aug, [facility] [address] [facility] [id number] [place] [address]- 5056 Aug, [facility] [address] [facility] [id number], [place] [address]- 3906 Jul, [facility] [id number] [place] [address]- 0006 Jul, [facility] [address] [facility] [id number], [place] [address]- 0462 Jun, [facility] [address] [place] [address]- 2746 Jun, [facility] [id number], [place] [address]- 7946 Jun, [facility] [id number], [place] [address]- 0586 May, [facility] [address] [facility] [id number], [place] [address]- 2546 May, [facility] [id number], [place] [address]- 0706 Apr, [facility] [address] [facility] [id number], [place] [address]- 6266 Apr, [facility] [id number], [place] [address]- 5662 Apr, [facility] [place] [facility] [address] [id number] [place] [address]- 9945 Apr, [facility] [place] [facility] [address] [id number] [place] [address]- 1930 Apr, [facility] [place] [facility] [address] [id number] [place] [address]- 4591 Apr, [facility] [place] [facility] [address] [id number] [place] [address]- 7078 Feb, [facility] [place] [facility] [address] [id number] [place] 1185 Feb, [facility] [place] [facility] [address] [id number] [place] 2601 Feb, [facility] [place] [facility] [address] [id number] [place] [address]- 6146 Feb, [facility] [place] [facility] [address] [id number] [place] [address]- 1015 Dec, [facility] [place] [facility] [address] [id number] [place] [address]- 6796 Dec, [facility] [place] [facility] [address] [id number] [place] [address]- 3302 Nov, [facility] [place] [facility] [address] [id number] [place] [address]- 1226 Nov, [facility] [place] [facility] [address] [id number], [place] [address]- 3523 Oct, [facility] [place] [facility] [address] [id number] [place] [address]- 2007 Oct, [facility] [place] [facility] [address] [id number] [place] [address]- 5119 Oct, [facility] [place] [facility] [address] [id number] [place] [address]- 9617 Oct, [facility] [place] [facility] [address] [id number] [place] [address]- 1180 Oct, [facility] [place] [facility] [address] [id number] [place] [address]- 4519 Oct, [facility] [place] [facility] [address] [id number] [place] [address]- 9053 September, [facility] [place] [facility] [address] [id number] [place] 0883 September, [facility] [place] [facility] [address] [id number] [place] [address]- 3654 September, [facility] [place] [facility] [address] [id number] [place] [address]- 4506 September, [facility] [place] [facility] [address] [id number] [place] [address]- 0365 September, [facility] [place] [facility] [address] [id number] [place] [address]- 2107 September, [facility] [place] [facility] [address] [id number] [place] [address]- 2490 Aug, [facility] [place] [facility] [address] [id number] [place] [address]- 9111 Aug, [facility] [place] [facility] [address] [id number] [place] [address]- 8678 Aug, [facility] [place] [facility] [address] [id number] [place] [address]- 0700 Aug, [facility] [place] [facility] [address] [id number] [place] [address]- 8190 Aug, [facility] [place] [facility] [address] [id number] [place] 8324 Aug, [facility] [place] [facility] [address] [id number] [place] [address]- 6128 Jul, [facility] [place] [facility] [address] [id number] [place] [address]- 1378 Jul, [facility] [place] [facility] [address] [id number] [place] [address]- 9576 Jul, [facility] [place] [facility] [address] [id number] [place] [address]- 8452 Jul, [facility] [place] [facility] [address] [id number] [place] [address]- 4076 May, [facility] [place] [facility] [address] [id number] [place] [address]- 7416 May, [facility] [address] [id number] [place] [address]- 9960 Apr, [facility] [place] [facility] [address] [id number] [place] [address]- 8437 Apr, [facility] [address] [id number] [place] [address] Apr, [facility] [address] [id number] [place] [address] Apr, [facility] [address] [id number] [place] [address] Apr, [facility] [place] [facility] [address] [id number] [place] [address] Apr, [facility] [place] [facility] [address] [id number] [place] [address] Feb, [facility] [place] [facility] [address] [id number], [place] [address] Feb, [facility] [place] [facility] [address] [id number] [place] [address] Feb, [facility] [place] [facility] [address] [id number] [place] [address] Feb, [facility] [place] [facility] [address] [id number] [place] [address] Feb, [facility] [place] [facility] [address] [id number], [place] [address] Feb, [facility] [address] [id number] [place] [address] Feb, [facility] [place] [facility] [address] [id number] [place] [address] Feb, [facility] [place] [facility] [address] [id number] [place] [address] Jan, [facility] [place] [facility] [address] [id number] [place] [address] Jan, [facility] [place] [facility] [address] [id number] [place] [address] Jan, [facility] [place] [facility] [address] [id number] [place] [address] Jan, [facility] [place] [facility] [address] [id number] [place] [address] Dec, [facility] [place] [facility] [address] [id number] [place] [address] Dec, [facility] [place] [facility] [address] [id number] [place] [address] Dec, [facility] [place] [facility] [address] [id number] [place] [address] Nov, [facility] [place] [facility] [address] [id number] [place] [address] Nov, [facility] [place] [facility] [address] [id number] [place] [address] Oct, [facility] [place] [facility] [address] [id number] [place] [address] September, [facility] [place] [facility] [address] [id number] [place] [address] September, [facility] [place] [facility] [address] [id number] [place] [address] September, [facility] [place] [facility] [address] [id number] [place] [address] 19 Aug, 2012 [facility] [address] [id number] [place] [address] 16 Aug, 2012 [facility] [address] [id number] [place] [address] 15 Aug, 2012 [facility] [address] [id number] [place] [address] 26 Jul, 2012 [facility] [address] [id number] [place] [address] Jul, [facility] [address] [id number] [place] [address] Jun, [facility] [address] [id number] [place] [address] Jun, [facility] [address] [id number] [place] [address] Jun, [facility] [address] [id number] [place] [address] Jun, [facility] [address] [id number] [place] [address] May, [facility] [address] [id number] [place] [address] May, [facility] [address] [id number] [place] [address] Apr, [facility] [address] [id number] [place] [address] Apr, [facility] [place] [facility] [address] [id number] [place] [address] Apr, [facility] [address] [id number] [place] [address] Apr, [facility] [place] [facility] [address] [id number] [place] [address] Apr, [facility] [place] [facility] [address] [id number] [place] [address] Apr, [facility] [place] [facility] [address] [id number] [place] [address] Mar, [facility] [place] [facility] [address] [facility] [id number] [place] [address] 2546 Mar, [facility] [place] [facility] [address] [id number] [place] [address] Mar, [facility] [place] [facility] [address] [id number] [place] [address] Mar, [facility] [place] [facility] [address] [facility] [id number] [place] [address] Mar, [facility] [place] [facility] [address] [facility] [id number] [place] [address] Mar, [facility] [place] [facility] [address] [id number], [place] [address] Feb, [facility] [place] [facility] [address] [id number], [place] [address] Feb, [facility] [place] [facility] [address] [facility] [id number], [place] [address] Feb, [facility] [place] [facility] [address] [facility] [id number], [place] [address] 2543 Feb, [facility] [place] [facility] [address] [id number], [place] [address] 2548 Feb, [facility] [place] [facility] [address] [id number], [place] [address] Jan, [facility] [place] [facility] [address] [facility] [id number], [place] [address] Jan, [facility] [place] [facility] [address] [facility] [id number], [place] [address]46 Jan, [facility] [place] [facility] [address] [id number] [place] [address] Dec, [facility] [place] [facility] [address] [id number] [place] [address] Dec, [facility] [place] [facility] [address] [id number] [place] [address] Nov, [facility] [place] [facility] [address] [id number] [place] [address]- [address] Oct, [facility] [place] [facility] [address] [id number] [place] [address]- 12[address] Oct, [facility] [place] [facility] [address] [id number] [place] [address]34 Oct, [facility] [place] [facility] [address] [id number] [place] [address]252 Oct, [facility] [place] [facility] [address] [id number] [place] [address]- 9124 Oct, [facility] [place] [facility] [address] [id number] [place] [address] 48[address] September, [facility] [place] [facility] [address] [id number] [place] [address]- 42[address] 18 Aug, 2011 [facility] [place] [facility] [address] [id number] [place] [address]- [address] 18 Aug, 2011 [facility] [place] [facility] [address] [id number] [place] [address]- 3682 17 Aug, 2011 [facility] [place] [facility] [address] [id number] [place] [address]- 8460 16 Aug, 2011 [facility] [place] [facility] [address] [id number] [place] [address]337 13 Aug, 2011 [facility] [place] [facility] [address] [id number] [place] [address]- 4261 11 Aug, 2011 [facility] [place] [facility] [address] [id number] [place] [address]- 8761 11 Aug, 2011 [facility] [place] [facility] [address] [id number] [place] [address]56 05 Aug, 2011 [facility] [place] [facility] [address] [id number] [place] [address] 1816 05 Aug, 2011 [facility] [place] [facility] [address] [id number] [place] [address]- 7986 20 Jul, 2011 [facility] [place] [facility] [address] [id number] [place] [address]- 3096 20 Jul, 2011 [facility] [place] [facility] [address] [id number] [place] [address]- 2754 20 Jul, 2011 [facility] [place] [facility] [address] [id number] [place] [address]- [address]326 17 Jul, 2011 [facility] [address] [id number] [place] [address]- 1726 Jul, [facility] [place] [facility] [address] [id number] [place] [address]- 2826 15 Jun, 2011 [facility] [place] [facility] [address] [id number] [place] [address]- 2341 14 Jun, 2011 [facility] [place] [facility] [address] [id number] [place] [address]- 6086 08 Jun, 2011 [facility] [place] [facility] [address] [id number] [place] [address]- 2746 08 Jun, 2011 [facility] [place] [facility] [address] [id number] [place] [address]- 4066 May, [facility] [place] [facility] [address] [id number] [place] [address]- [address]46 13 May, 2011 [facility] [place] [facility] [address] [id number] [place] [address]- 2666 10 May, 2011 [facility] [place] [facility] [address] [id number] [place] [address]- 7946 08 May, 2011 [facility] [place] [facility] [address] [id number] [place] [address]- 2085 May, [facility] [address] [id number] [place] [address]- 8135 May, [facility] [address] [id number] [place] [address]- 1786 May, [facility] [address] [id number] [place] [address]- 6210 Apr, [facility] [place] [facility] [address] [id number] [place] [address]- 0484 13 Apr, 2011 [facility] [address] [id number] [place] [address]- 7012 Apr, [facility] [place] [facility] [address] [id number] [place] [address]- 4161 Apr, [facility] [address] [id number] [place] [address] 3942 Apr, [facility] [place] [facility] [address] [id number] [place] [address]- 3524 Apr, [facility] [address] [id number] [place] [address]- [address]287 Apr, [facility] [place] [facility] [address] [id number] [place] [address]- 1907 Apr, [facility] [address] [id number] [place] [address]- 5451 Apr, [facility] [place] [facility] [address] [id number] [place] [address]- 8317 Apr, [facility] [place] [facility] [address] [id number] [place] [address]- 5849 Mar, [facility] [place] [facility] [address] [id number] [place] [address]- 8686 16 Mar, 2011 [facility] [place] [facility] [address] [id number] [place] [address]- 0030 Feb, [facility] [place] [facility] [address] [facility] [id number], [place] [address] 74[address] Jun, [facility] [address] [facility] [id number], [place] [address] Apr, [facility] [address] [facility] [id number][place] [address] Feb, [facility] [address] [facility] [id number] [place] [address]16047- [address]136 Feb, [facility] [address] [facility] [id number], [place] [address]- 0578 Feb, [facility] [address] [facility] [id number] [place] [address] [id number]- 6733 Apr, [facility] [address] [id number] [address] Apr, [facility] [id number] [place] [address]- 9383 Mar, [facility] [id number], [place] [address]- [address]87 Mar, [facility] [id number], [place] [address] 0185 Mar, [facility] [id number], [place] [address] 6140 Feb, [facility] [id number], [place] [address]- 0615 Feb, [facility] [address] [id number] [address] Feb, [facility] [id number] [address] Jan, IMMUNIZATIONS No Known Immunizations SOCIAL HISTORY Never Assessed REASON FOR VISIT Lab (walk-in) PLAN OF CARE VITAL SIGNS MEDICATIONS Unknown Medications RESULTS No Results PROCEDURES Procedure Date Ordered Result Body Site LAB NOT BILLED BY [facility] Dec 11, 2017 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
--- OUTSIDE RECORDS SUMMARY | 2018-04-28 05:21 | XMS REPORT ---
Author Author MARLEY MCGRATH Organization [facility] Address [address] [place] [address] Care Team Providers Care Guard Immigration Name Role Phone MARLEY MCGRATH Unavailable PROBLEMS Type Condition ICD9-CM Code DVC23-QR Code Onset Dates Condition Status SNOMED Code Problem Hammertoe of right foot M20.41 Active 370162015 Problem Moderate episode of recurrent major depressive disorder F33.1 Active 476104497 Problem Hypertriglyceridemia E78.1 Active 515454493 Problem Other chronic pain G89.29 Active 67941426 Problem Memory loss R41.3 Active 003878438 Problem 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.01 Active 2937988 Problem Chronic fatigue R53.82 Active 81332220 Problem Controlled type 2 diabetes mellitus without complication, without long -term current use of insulin E11.9 Active 778667005 Problem Chronic major depressive disorder, recurrent episode F33.9 Active 98081843 Problem Knee pain, right M25.561 Active 41440335 Problem Diabetes type 2, controlled E11.9 Active 08194686 Problem Type 2 diabetes mellitus without complications E11.9 Active 050634358 Problem Hypogonadism in male E29.1 Active 06446125 Problem detention (current) use of anticoagulants Z79.01 Active 470818678 ALLERGIES No Information ENCOUNTERS Encounter Location Date Diagnosis [facility] [address] [id number], [place] [address] Jan, Hypogonadism in male E29.1 [facility] [id number], [place] [address] Jan, [facility] [address] [id number], [place] [address] 7070 Dec, Hypogonadism in male E29.1 [facility] [address] [id number], [place] [address] 3950 Dec, Medicare welcome exam Z00.00 [facility] [address] [facility] [id number], [place] [address] 2546 08 Dec, 2017 Hypogonadism in male E29.1 [facility] [address] [facility] [id number], [place] [address] 2546 07 Dec, 2017 [facility] [address] [facility] [id number], [place] [address] 2546 Nov, Hypogonadism in male E29.1 [facility] [address] [facility] [id number], [place] [address] 2546 20 Nov, 2017 Type 2 diabetes mellitus without complications E11.9 and History of Coumadin therapy Z92.29 [facility] [address] [facility] [id number], [place] [address] 2546 18 Nov, 2017 Medicare welcome exam Z00.00 [facility] [address], [place] [address] Nov, Type 2 diabetes mellitus without complications E11.9 ; History of Coumadin therapy Z92.29 and Hypogonadism in male E29.1 [facility] [address] [facility] [id number], [place] [address] 9146 Nov, [facility] [id number], [place] [address] 6392 Oct, [facility] [address] [facility] [id number], [place] [address] 8406 Oct, Diabetes type 2, controlled E11.9 [facility] [address] [facility] [id number], [place] [address] 2543 Oct, Medicare welcome exam Z00.00 [facility] [address] [facility] [id number], [place] [address] 2546 Oct, Hypogonadism in male E29.1 [facility] [address] [facility] [id number], [place] [address] Oct, [facility] [address] [id number] [address] [address] September, Hypogonadism in male E29.1 [facility] [address] [id number], [place] [address] 3125 15 Sep, 2017 Medicare welcome exam Z00.00 [facility] [address], [place] [address] 3111 10 Sep, 2017 Hypogonadism in male E29.1 [facility] [id number] [place] [address]778- 7853 Aug, Other chronic pain G89.29 ; Memory loss R41.3 ; Controlled type 2 diabetes mellitus without complication, without long-term current use of insulin E11.9 and Chronic major depressive disorder, recurrent episode F33.9 [facility] [address], [place] [address] 8845 11 Aug, 2017 Medicare welcome exam Z00.00 [facility] [id number] [place] [address] 51052- 1085 Aug, [facility] [id number] [place] [address] -1484 Aug, Hypogonadism in male E29.1 [facility] [address] [id number], [place] [address] 1482 27 Jul, 2017 [facility] [address] [id number], [place] [address] 9795 Jul, Hypogonadism in male E29.1 [facility] [address]65[address], [place] [address] 7797 Jul, [facility] [address] [id number], [place] [address] Jul, Hypogonadism in male E29.1 [facility] [address] [address] 8134 09 Jul, 2017 Medicare welcome exam Z00.00 [facility] [id number] [place] [address] 04620- 7078 Jun, Medicare welcome exam Z00.00 [facility] [address]00565[address], [place] [address] 19 Jun, 2017 Fever R50.9 and Influenza B J10.1 [facility] [address]005[address], [place] [address]- 4492 13 Jun, 2017 Hypogonadism in male E29.1 [facility] [id number] [place] [address] 85366- 2911 Jun, Diabetes type 2, controlled E11.9 [facility] [id number] [place] [address] 03202- 9229 May, Hypogonadism in male E29.1 [facility] [id number] [place] [address] 01861- 2109 May, detention (current) use of anticoagulants Z79.01 [facility] [id number] [place] [address] 05213- 2506 Apr, Hypogonadism in male E29.1 [facility] [id number] [place] [address] 77611- 6966 Apr, [facility] [id number] [place] [address] 87148- 8421 Apr, Medicare welcome exam Z00.00 and detention (current) use of anticoagulants Z79.01 [facility] [address], [place] [address]- 1049 Apr, Hypogonadism in male E29.1 [facility] [id number] [place] [address] 53544- 8063 Mar, Diabetes type 2, controlled E11.9 [facility] [address], [place] [address]- 3928 16 Mar, 2017 Hypogonadism in male E29.1 [facility] [id number] [place] [address] 36997- 0447 Mar, Hypogonadism in male E29.1 [facility] [id number] [place] [address] 95435- 6933 Feb, Hypogonadism in male E29.1 [facility] [id number] [place] [address] 91549- 3370 Feb, Malaise R53.81 [facility] [id number] [place] [address] 10109- 7451 Feb, [facility] [facility] [id number] [place] [address] 15307- 9972 Feb, Diabetes type 2, controlled E11.9 [facility] [id number] [place] [address] 71582- 2027 Feb, Chronic fatigue R53.82 ; Malaise R53.81 and Moderate episode of recurrent major depressive disorder F33.1 [facility] [id number] [place] [address] 54081- 2303 Jan, Diabetes type 2, controlled E11.9 [facility] [id number] [place] [address] 51566- 3436 Jan, 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.01 and mounter smoking pipe (current) use of anticoagulants Z79.01 [facility] [id number] [place] [address] 90798- 7130 Dec, Diabetes type 2, controlled E11.9 and Hypertriglyceridemia E78.1 [facility] [facility] [id number] [place] [address] 94241- 4622 Dec, Diabetes type 2, controlled E11.9 [facility] [id number] [place] [address] 00672- 6255 Dec, High risk medication use Z79.899 and detention (current) use of anticoagulants Z79.01 [facility] [facility] [id number] [place] [address] 33600- 8511 Dec, High risk medication use Z79.8[address] [id number] [place] [address] 20765- 4590 Nov, Diabetes type 2, controlled E11.9 [facility] [id number] [place] [address] 64884- 2304 Oct, Diabetes type 2, controlled E11.9 [facility] [id number] [place] [address] 49269- 5497 September, Diabetes type 2, controlled E11.9 [facility] [facility] [id number] [place] [address] 61272- 0551 Aug, mounter smoking pipe (current) use of anticoagulants Z79.01 [facility] [facility] [id number] [place] [address] 71641- 3846 Aug, Hematoma of arm, right, initial encounter S40.021A and mounter smoking pipe (current) use of anticoagulants Z79.01 [facility] [facility] [id number] [place] [address] 86608- 4785 Aug, [facility] [id number] [place] [address] 73459 -9812 Aug, Cellulitis of right upper extremity L03.113 [place] [id number] [place] [address] 43434- 6617 Aug, Diabetes type 2, controlled E11.9 [facility] [facility] [id number] [place] [address] 22024- 2551 Aug, Hammertoe of right foot M20.41 ; Hallux abducto valgus, left M20.12 and Onychomycosis B35.1 [facility] [facility] [id number] [place] [address] 63206- 1922 Aug, mounter smoking pipe (current) use of anticoagulants Z79.01 [place] [id number] [place] [address] 78970- 7518 Aug, detention (current) use of anticoagulants Z79.01 [facility] [facility] [address], [place] [address]- 0637 Aug, detention (current) use of anticoagulants Z79.01 [facility] [address], [place] [address]858 Aug, Right shoulder pain M25.511 and Closed nondisplaced fracture of acromial end of right clavicle, initial encounter S42.034A [facility] [id number] [place] [address] 81160- 0675 Jul, Diabetes type 2, controlled E11.9 [facility] [address], [place] [address]- 4245 Jun, Diabetes type 2, controlled E11.9 and detention (current) use of anticoagulants Z79.01 [facility] [address], [place] [address]- 6073 May, [facility] [id number] [place] [address] 04544- 7053 Apr, [facility] [address], [place] [address]- 9932 Mar, [place] [id number] [place] [address] 99651- 5934 Feb, [facility] [address], [place] [address]- 4068 Dec, Diabetes type 2, controlled E11.9 [facility] [address], [place] [address]- 2191 Dec, [facility] [address], [place] [address]- 5149 Nov, [facility] [id number] [place] [address] 73645305- 6516 Nov, Type 2 diabetes mellitus without complications E11.9 [facility] [id number], [place] [address]- 5139 Oct, Type 2 diabetes mellitus without complications E11.9 [facility] [address], [place] [address]- 8150 Aug, [facility] [id number] [place] [address] 10329- 8137 Aug, Type 2 diabetes mellitus without complications E11.9 [facility] [id number] [place] [address] 61295- 7775 Jun, Type 2 diabetes mellitus without complications E11.9 and 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 human resources associate use of antiplatelet drug Z79.02 [facility] [facility] [id number] [place] [address] 44498- 6707 May, [place] [id number] [place] [address] 33016- 7629 May, Diabetes type 2, controlled E11.9 [place] [id number] [place] [address] 10411- 6252 Apr, Diabetes type 2, controlled E11.9 [place] [id number] [place] [address] 60178- 2193 Mar, Diabetes type 2, controlled E11.9 ; Knee pain, right M25.561 ; Other chronic pain G89.29 and Medication monitoring encounter Z51.81 [facility] [facility] [id number] [place] [address] 17130- 7963 Feb, Type 2 diabetes mellitus without complications E11.9 ; High risk medication use Z79.899 and Anxiety F41.9 [facility] [facility] [address], [place] [address]- 4253 Jan, Diabetes 250.00 [place] [id number] [place] [address] 23637- 6570 Dec, Diabetes 250.00 [place] [address] [address]- 2687 Nov, Diabetes 250.00 [place] [id number] [place] [address] 34666- 6726 Nov, [facility] [address] [facility] [id number], [place] [address]- 7862 Oct, Diabetes mellitus type 1 250.01 and High risk medication use V58.69 [facility] [address] [id number] [place] [address]- 2546 Oct, [facility] [address] [facility] [id number], [place] [address]- 7936 September, [facility] [address] [facility] [id number] [place] [address]- 0286 Aug, [facility] [address] [facility] [id number] [place] [address]- 0986 Aug, [facility] [address] [facility] [id number], [place] [address]- 1516 Jul, [facility] [id number] [place] [address]- 2326 Jul, [facility] [address] [facility] [id number], [place] [address]- 1920 Jun, [facility] [address] [place] [address]- 5396 Jun, [facility] [id number], [place] [address]- 0106 Jun, [facility] [id number], [place] [address]- 2366 May, [facility] [address] [facility] [id number], [place] [address]- 2546 May, [facility] [id number], [place] [address]- 0926 Apr, [facility] [address] [facility] [id number], [place] [address]- 2166 Apr, [facility] [id number], [place] [address]- 9312 Apr, [facility] [place] [facility] [address] [id number] [place] [address]- 7863 Apr, [facility] [place] [facility] [address] [id number] [place] [address]- 9578 Apr, [facility] [place] [facility] [address] [id number] [place] [address]- 7962 Apr, [facility] [place] [facility] [address] [id number] [place] [address]- 0473 Feb, [facility] [place] [facility] [address] [id number] [place] 8687 Feb, [facility] [place] [facility] [address] [id number] [place] 3872 Feb, [facility] [place] [facility] [address] [id number] [place] [address]- 7529 Feb, [facility] [place] [facility] [address] [id number] [place] [address]- 8507 Dec, [facility] [place] [facility] [address] [id number] [place] [address]- 9732 Dec, [facility] [place] [facility] [address] [id number] [place] [address]- 9304 Nov, [facility] [place] [facility] [address] [id number] [place] [address]- 4889 Nov, [facility] [place] [facility] [address] [id number], [place] [address]- 7175 Oct, [facility] [place] [facility] [address] [id number] [place] [address]- 4715 Oct, [facility] [place] [facility] [address] [id number] [place] [address]- 2369 Oct, [facility] [place] [facility] [address] [id number] [place] [address]- 8800 Oct, [facility] [place] [facility] [address] [id number] [place] [address]- 3174 Oct, [facility] [place] [facility] [address] [id number] [place] [address]- 3091 Oct, [facility] [place] [facility] [address] [id number] [place] [address]- 3274 September, [facility] [place] [facility] [address] [id number] [place] 9437 September, [facility] [place] [facility] [address] [id number] [place] [address]- 3247 September, [facility] [place] [facility] [address] [id number] [place] [address]- 3602 September, [facility] [place] [facility] [address] [id number] [place] [address]- 0851 September, [facility] [place] [facility] [address] [id number] [place] [address]- 6042 September, [facility] [place] [facility] [address] [id number] [place] [address]- 6317 Aug, [facility] [place] [facility] [address] [id number] [place] [address]- 5355 Aug, [facility] [place] [facility] [address] [id number] [place] [address]- 2117 Aug, [facility] [place] [facility] [address] [id number] [place] [address]- 0258 Aug, [facility] [place] [facility] [address] [id number] [place] [address]- 7372 Aug, [facility] [place] [facility] [address] [id number] [place]- 4750 Aug, [facility] [place] [facility] [address] [id number] [place] [address]- 9298 Jul, [facility] [place] [facility] [address] [id number] [place] [address]- 5379 Jul, [facility] [place] [facility] [address] [id number] [place] [address]- 8912 Jul, [facility] [place] [facility] [address] [id number] [place] [address]- 9486 Jul, [facility] [place] [facility] [address] [id number] [place] [address]- 9490 May, [facility] [place] [facility] [address] [id number] [place] [address]- 5533 May, [facility] [address] [id number] [place] [address]- 2485 Apr, [facility] [place] [facility] [address] [id number] [place] [address]- 7235 Apr, [facility] [address] [id number] [place] [address]- 3407 Apr, [facility] [address] [id number] [place] [address]- 2661 Apr, [facility] [address] [id number] [place] [address]- 4977 Apr, [facility] [place] [facility] [address] [id number] [place] [address]- 5085 Apr, [facility] [place] [facility] [address] [id number] [place] [address]- 7160 Feb, [facility] [place] [facility] [address] [id number], [place] [address]- 1171 Feb, [facility] [place] [facility] [address] [id number] [place] [address]- 3394 Feb, [facility] [place] [facility] [address] [id number] [place] [address]- 3656 Feb, [facility] [place] [facility] [address] [id number] [place] [address]- 6695 Feb, [facility] [place] [facility] [address] [id number], [place] [address]- 3215 Feb, [facility] [address] [id number] [place] [address]- 3987 Feb, [facility] [place] [facility] [address] [id number] [place] [address]- 5386 Feb, [facility] [place] [facility] [address] [id number] [place] [address]- 8323 Jan, [facility] [place] [facility] [address] [id number] [place] [address]- 6707 Jan, [facility] [place] [facility] [address] [id number] [place] 0148 Jan, [facility] [place] [facility] [address] [id number] [place] [address]- 2218 Jan, [facility] [place] [facility] [address] [id number] [place] [address]- 8566 Dec, [facility] [place] [facility] [address] [id number] [place] [address]- 7321 Dec, [facility] [place] [facility] [address] [id number] [place] [address]- 0577 Dec, [facility] [place] [facility] [address] [id number] [place] [address]- 5545 Nov, [facility] [place] [facility] [address] [id number] [place] [address]- 5377 Nov, [facility] [place] [facility] [address] [id number] [place] [address]- 9728 Oct, [facility] [place] [facility] [address] [id number] [place] [address]- 0425 September, [facility] [place] [facility] [address] [id number] [place] [address]- 2746 September, [facility] [place] [facility] [address] [id number] [place] [address]- 4157 September, [facility] [place] [facility] [address] [id number] [place] [address]- 1398 19 Aug, 2012 [facility] [address] [id number] [place] [address]- 1436 16 Aug, 2012 [facility] [address] [id number] [place] [address]- 4916 15 Aug, 2012 [facility] [address] [id number] [place] [address]- 5637 26 Jul, 2012 [facility] [address] [id number] [place] [address]- 7148 Jul, [facility] [address] [id number] [place] [address]- 1400 Jun, [facility] [address] [id number] [place] [address]- 3714 Jun, [facility] [address] [id number] [place] [address] [address] Jun, [facility] [address] [id number] [place] [address] [address] Jun, [facility] [address] [id number] [place] [address] [address] May, [facility] [address] [id number] [place] [address] May, [facility] [address] [id number] [place] [address] Apr, [facility] [address] [id number] [place] [address] Apr, [facility] [place] [facility] [address] [id number] [place] [address] [address] Apr, [facility] [address] [id number] [place] [address] Apr, [facility] [place] [facility] [address] [id number] [place] [address] Apr, [facility] [place] [facility] [address] [id number] [place] [address] Apr, [facility] [place] [facility] [address] [id number] [place] [address] Mar, [facility] [place] [facility] [address] [facility] [id number] [place] [address] Mar, [facility] [place] [facility] [address] [id number] [place] [address] Mar, [facility] [place] [facility] [address] [id number] [place] [address] Mar, [facility] [place] [facility] [address] [facility] [id number] [place] [address] Mar, [facility] [place] [facility] [address] [facility] [id number] [place] [address] Mar, [facility] [place] [facility] [address] [id number], [place] [address] Feb, [facility] [place] [facility] [address] [id number], [place] [address] Feb, [facility] [place] [facility] [address] [facility] [id number], [place] [address] Feb, [facility] [place] [facility] [address] [facility] [id number], [place] [address] Feb, [facility] [place] [facility] [address] [id number], [place] [address] Feb, [facility] [place] [facility] [address] [id number], [place] [address] Jan, [facility] [place] [facility] [address] [facility] [id number], [place] [address] Jan, [facility] [place] [facility] [address] [facility] [id number], [place] [address] Jan, [facility] [place] [facility] [address] [id number] [place] [address] Dec, [facility] [place] [facility] [address] [id number] [place] [address] Dec, [facility] [place] [facility] [address] [id number] [place] [address] Nov, [facility] [place] [facility] [address] [id number] [place] [address] Oct, [facility] [place] [facility] [address] [id number] [place] [address] Oct, [facility] [place] [facility] [address] [id number] [place] [address] Oct, [facility] [place] [facility] [address] [id number] [place] [address] Oct, [facility] [place] [facility] [address] [id number] [place] [address] Oct, [facility] [place] [facility] [address] [id number] [place] [address] September, [facility] [place] [facility] [address] [id number] [place] [address] 18 Aug, 2011 [facility] [place] [facility] [address] [id number] [place] [address] 18 Aug, 2011 [facility] [place] [facility] [address] [id number] [place] [address] 17 Aug, 2011 [facility] [place] [facility] [address] [id number] [place] [address] 16 Aug, 2011 [facility] [place] [facility] [address] [id number] [place] [address] 13 Aug, 2011 [facility] [place] [facility] [address] [id number] [place] [address] 11 Aug, 2011 [facility] [place] [facility] [address] [id number] [place] [address] 11 Aug, 2011 [facility] [place] [facility] [address] [id number] [place] [address] 05 Aug, 2011 [facility] [place] [facility] [address] [id number] [place] [address] 05 Aug, 2011 [facility] [place] [facility] [address] [id number] [place] [address] 20 Jul, 2011 [facility] [place] [facility] [address] [id number] [place] [address] 20 Jul, 2011 [facility] [place] [facility] [address] [id number] [place] [address] 20 Jul, 2011 [facility] [place] [facility] [address] [id number] [place] [address] 17 Jul, 2011 [facility] [address] [id number] [place] [address] Jul, [facility] [place] [facility] [address] [id number] [place] [address] 15 Jun, 2011 [facility] [place] [facility] [address] [id number] [place] [address] 14 Jun, 2011 [facility] [place] [facility] [address] [id number] [place] [address] 08 Jun, 2011 [facility] [place] [facility] [address] [id number] [place] [address] 08 Jun, 2011 [facility] [place] [facility] [address] [id number] [place] [address] May, [facility] [place] [facility] [address] [id number] [place] [address] 13 May, 2011 [facility] [place] [facility] [address] [id number] [place] [address] 12[address] 10 May, 2011 [facility] [place] [facility] [address] [id number] [place] [address] 08 May, 2011 [facility] [place] [facility] [address] [id number] [place] [address] May, [facility] [address] [id number] [place] [address] May, [facility] [address] [id number] [place] [address] May, [facility] [address] [id number] [place] [address] Apr, [facility] [place] [facility] [address] [id number] [place] [address] 13 Apr, 2011 [facility] [address] [id number] [place] [address] Apr, [facility] [place] [facility] [address] [id number] [place] [address] Apr, [facility] [address] [id number] [place] [address] Apr, [facility] [place] [facility] [address] [id number] [place] [address] Apr, [facility] [address] [id number] [place] [address] Apr, [facility] [place] [facility] [address] [id number] [place] [address] Apr, [facility] [address] [id number] [place] [address] Apr, [facility] [place] [facility] [address] [id number] [place] [address] Apr, [facility] [place] [facility] [address] [id number] [place] [address] Mar, [facility] [place] [facility] [address] [id number] [place] [address] 16 Mar, 2011 [facility] [place] [facility] [address] [id number] [place] [address] Feb, [facility] [place] [facility] [address] [facility] [id number], [place] [address] Jun, [facility] [address] [facility] [id number] [address] [address] Apr, [facility] [address] [facility] [id number], [place] [address] Feb, [facility] [address] [facility] [id number], [place] [address] Feb, [facility] [address] [facility] [id number], [place] [address] Feb, [facility] [id number] [place] [address] Apr, [facility] [id number], [place] [address] Apr, [facility] [id number], [place] [address] Mar, [facility] [id number], [place] [address] Mar, [facility] [id number], [place] [address] Mar, [facility] [id number], [place] [address] Feb, [facility] [id number], [place] [address] Feb, [facility] [address] [id number], [place] [address] Feb, [facility] [id number], [place] [address] Jan, IMMUNIZATIONS No Known Immunizations SOCIAL HISTORY [...]
--- OUTSIDE RECORDS SUMMARY | 2018-04-28 05:21 | XMS REPORT ---
Author Author MARLEY MCGRATH Organization [facility] Address [address] [place] [address] Care Team Providers Care Concrete Products Dispatcher Name Role Phone MARLEY MCGRATH Unavailable PROBLEMS Type Condition ICD9-CM Code FOI35-IP Code Onset Dates Condition Status SNOMED Code Problem Hammertoe of right foot M20.41 Active 461234210 Problem Moderate episode of recurrent major depressive disorder F33.1 Active 691916210 Problem Hypertriglyceridemia E78.1 Active 753174849 Problem Other chronic pain G89.29 Active 80160217 Problem Memory loss R41.3 Active 486348368 Problem 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.01 Active 8715485 Problem Chronic fatigue R53.82 Active 94544580 Problem Controlled type 2 diabetes mellitus without complication, without long -term current use of insulin E11.9 Active 314473144 Problem Chronic major depressive disorder, recurrent episode F33.9 Active 59790740 Problem Knee pain, right M25.561 Active 54154366 Problem Diabetes type 2, controlled E11.9 Active 37471562 Problem Type 2 diabetes mellitus without complications E11.9 Active 795509407 Problem Hypogonadism in male E29.1 Active 94386504 Problem FCI (current) use of anticoagulants Z79.01 Active 353519150 ALLERGIES No Information ENCOUNTERS Encounter Location Date Diagnosis [facility] [id number] [address] Jan, Hypogonadism in male E29.1 [facility] [id number] [address] Jan, [facility] [id number] [address] Dec, Hypogonadism in male E29.1 [facility] [id number] [address] Dec, Medicare welcome exam Z00.00 [facility] [address] [facility] [id number] [address] 2546 08 Dec, 2017 Hypogonadism in male E29.1 [facility] [address] [facility] [id number] [address] 2546 07 Dec, 2017 [facility] [address] [facility] [id number] [address] 2546 Nov, Hypogonadism in male E29.1 [facility] [address] [facility] [id number] [address] 2546 20 Nov, 2017 Type 2 diabetes mellitus without complications E11.9 and History of Coumadin therapy Z92.29 [facility] [address] [facility] [id number] [address] 2546 18 Nov, 2017 Medicare welcome exam Z00.00 [facility] [address] [address] Nov, Type 2 diabetes mellitus without complications E11.9 ; History of Coumadin therapy Z92.29 and Hypogonadism in male E29.1 [facility] [address] [facility] [id number] [address] 90[address] Nov, [facility] [id number] [address] 46[address] Oct, [facility] [address] [facility] [id number] [address] 7994 Oct, Diabetes type 2, controlled E11.9 [facility] [address] [facility] [id number] [address] 254 Oct, Medicare welcome exam Z00.00 [facility] [address] [facility] [id number] [address] 2546 Oct, Hypogonadism in male E29.1 [facility] [address] [facility] [id number] [address] Oct, [facility] [address] [id number] [address] September, Hypogonadism in male E29.1 [facility] [address] [id number] [address] 15 Sep, 2017 Medicare welcome exam Z00.00 [facility] [address]005[address] [address] 8[address] 10 Sep, 2017 Hypogonadism in male E29.1 [facility] [id number] [place] [address] 41557- 3928 Aug, Other chronic pain G89.29 ; Memory loss R41.3 ; Controlled type 2 diabetes mellitus without complication, without long-term current use of insulin E11.9 and Chronic major depressive disorder, recurrent episode F33.9 [facility] [address] [address] 11 Aug, 2017 Medicare welcome exam Z00.00 [facility] [id number] [place] [address] 37873- 8786 Aug, [facility] [id number] [place] [address]1249 -9209 Aug, Hypogonadism in male E29.1 [facility] [address] [id number] [address] 5198 27 Jul, 2017 [facility] [address] [id number] [address] 1647 Jul, Hypogonadism in male E29.1 [facility] [address]005[address] [address] 27[address] Jul, [facility] [address] [id number] [address] Jul, Hypogonadism in male E29.1 [facility] [address] [address] [address] 09 Jul, 2017 Medicare welcome exam Z00.00 [facility] [id number] [place] [address] 65691- 5027 Jun, Medicare welcome exam Z00.00 [facility] [address]00565[address] [address] 19 Jun, 2017 Fever R50.9 and Influenza B J10.1 [facility] [address]005[address] [address]- 7428 13 Jun, 2017 Hypogonadism in male E29.1 [facility] [id number] [place] [address] 55041- 5418 Jun, Diabetes type 2, controlled E11.9 [facility] [id number] [place] [address] 00658- 2616 May, Hypogonadism in male E29.1 [facility] [id number] [place] [address] 68493- 3358 May, FCI (current) use of anticoagulants Z79.01 [facility] [id number] [place] [address] 33900- 2748 Apr, Hypogonadism in male E29.1 [facility] [id number] [place] [address] 58080- 0718 Apr, [facility] [id number] [place] [address] 58348- 1003 Apr, Medicare welcome exam Z00.00 and FCI (current) use of anticoagulants Z79.01 [facility] [address]005[address] [address]- 9418 Apr, Hypogonadism in male E29.1 [facility] [id number] [place] [address] 32856- 2740 Mar, Diabetes type 2, controlled E11.9 [facility] [address]005[address] [address]- 6406 16 Mar, 2017 Hypogonadism in male E29.1 [facility] [id number] [place] [address] 88630- 6320 Mar, Hypogonadism in male E29.1 [facility] [id number] [place] [address] 93614- 2679 Feb, Hypogonadism in male E29.1 [facility] [id number] [place] [address] 12697- 4308 Feb, Malaise R53.81 [facility] [id number] [place] [address] 97501- 9014 Feb, [facility] [id number] [place] [address] 45134- 4777 Feb, Diabetes type 2, controlled E11.9 [facility] [id number] [place] [address] 11470- 9256 Feb, Chronic fatigue R53.82 ; Malaise R53.81 and Moderate episode of recurrent major depressive disorder F33.1 [facility] [id number] [place] [address] 10970- 6330 Jan, Diabetes type 2, controlled E11.9 [facility] [id number] [place] [address] 12833- 1995 Jan, 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.01 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 [facility] [id number] [place] [address] 55839- 0045 Dec, Diabetes type 2, controlled E11.9 and Hypertriglyceridemia E78.1 [facility] [id number] [place] [address] 43638- 6752 Dec, Diabetes type 2, controlled E11.9 [facility] [id number] [place] [address] 71276- 3874 Dec, High risk medication use Z79.899 and FCI (current) use of anticoagulants Z79.01 [facility] [facility] [id number] [place] [address] 49507- 3193 Dec, High risk medication use Z79.8[id number] [place] [address] 08299- 4557 Nov, Diabetes type 2, controlled E11.9 [facility] [id number] [place] [address] 90662- 4369 Oct, Diabetes type 2, controlled E11.9 [facility] [id number] [place] [address] 37057- 6146 September, Diabetes type 2, controlled E11.9 [place] [facility] [id number] [place] [address] 09704- 9320 Aug, 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 [id number] [place] [address] 83159 -2119 Aug, Cellulitis of right upper extremity L03.113 [place] [id number] [place] [address] 62674- 9411 Aug, Diabetes type 2, controlled E11.9 [place] [id number] [place] [address] 04369- 1474 Aug, Hammertoe of right foot M20.41 ; Hallux abducto valgus, left M20.12 and Onychomycosis B35.1 [place] [facility] [id number] [place] [address] 34044- 3149 Aug, 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 [address] [address] Aug, Right shoulder pain M25.511 and Closed nondisplaced fracture of acromial end of right clavicle, initial encounter S42.034A [facility] [id number] [place] [address] 91814- 4027 Jul, Diabetes type 2, controlled E11.9 [facility] [address] [address]- 0101 Jun, Diabetes type 2, controlled E11.9 and FCI (current) use of anticoagulants Z79.01 [facility] [address] [address]- 8479 May, [facility] [id number] [place] [address] 55855- 9023 Apr, [facility] [address] [address]- 3362 Mar, [place] [id number] [place] [address] 02689- 9665 Feb, [facility] [address] [address]- 9925 Dec, Diabetes type 2, controlled E11.9 [facility] [address] [address]- 9537 Dec, [facility] [address] [address]- 6849 Nov, [facility] [id number] [place] [address] [id number]- 1557 Nov, Type 2 diabetes mellitus without complications E11.9 [facility] [id number] [address]- 3780 Oct, Type 2 diabetes mellitus without complications E11.9 [facility] [address] [address]- 1437 Aug, [facility] [id number] [place] [address] 59005- 6397 Aug, Type 2 diabetes mellitus without complications E11.9 [facility] [id number] [place] [address] 77304- 0381 Jun, Type 2 diabetes mellitus without complications E11.9 and 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 [place] [id number] [place] [address] 59999- 9259 May, [place] [id number] [place] [address] 21383- 0658 May, Diabetes type 2, controlled E11.9 [place] [facility] [id number] [place] [address] 27924- 6379 Apr, Diabetes type 2, controlled E11.9 [place] [facility] [id number] [place] [address] 90963- 2616 Mar, Diabetes type 2, controlled E11.9 ; Knee pain, right M25.561 ; Other chronic pain G89.29 and Medication monitoring encounter Z51.81 [place] [facility] [id number] [place] [address] 73184- 1023 Feb, Type 2 diabetes mellitus without complications E11.9 ; High risk medication use Z79.899 and Anxiety F41.9 [place] [address] [address]- 2448 Jan, Diabetes 250.00 [place] [id number] [place] [address] 50857- 6153 Dec, Diabetes 250.00 [place] [facility] [id number] [address]- 8359 Nov, Diabetes 250.00 [place] [id number] [place] [address] 21132- 9436 Nov, [facility] [address] [facility] [id number] [address]- 8717 Oct, Diabetes mellitus type 1 250.01 and High risk medication use V58.69 [facility] [address] [id number] [place] [address]- 2546 Oct, [facility] [address] [facility] [id number] [address]- 1686 September, [facility] [address] [facility] [id number] [place] [address]- 0716 Aug, [facility] [address] [facility] [id number] [place] [address]- 5906 Aug, [facility] [address] [facility] [id number] [place] [address]- 2976 Jul, [facility] [id number] [address]- 3496 Jul, [facility] [address] [facility] [id number] [address]- 2370 Jun, [facility] [address] [place] [address]- 5796 Jun, [facility] [id number] [address]- 9916 Jun, [facility] [id number] [address]- 4906 May, [facility] [address] [facility] [id number] [address]- 2546 May, [facility] [id number] [address]- 1736 Apr, [facility] [address] [facility] [id number] [address]- 5996 Apr, [facility] [id number] [address]- 0409 Apr, [facility] [place] [facility] [address] [id number] [place] [address]- 5542 Apr, [facility] [place] [facility] [address] [id number] [place] [address]- 3293 Apr, [facility] [place] [facility] [address] [id number] [place] [address]- 0048 Apr, [facility] [place] [facility] [address] [id number] [place] [address]- 7455 Feb, [facility] [place] [facility] [address] [id number] [place] 1513 Feb, [facility] [place] [facility] [address] [id number] [place] 6553 Feb, [facility] [place] [facility] [address] [id number] [place] [address]- 8353 Feb, [facility] [place] [facility] [address] [id number] [place] [address]- 2683 Dec, [facility] [place] [facility] [address] [id number] [place] [address]- 5425 Dec, [facility] [place] [facility] [address] [id number] [place] [address]- 7111 Nov, [facility] [place] [facility] [address] [id number] [place] [address]- 0700 Nov, [facility] [place] [facility] [address] [id number] [place] [address]- 8829 Oct, [facility] [place] [facility] [address] [id number] [place] [address]- 0730 Oct, [facility] [place] [facility] [address] [id number] [place] [address]- 4831 Oct, [facility] [place] [facility] [address] [id number] [place] [address]- 3191 Oct, [facility] [place] [facility] [address] [id number] [place] [address]- 1229 Oct, [facility] [place] [facility] [address] [id number] [place] [address]- 5354 Oct, [facility] [place] [facility] [address] [id number] [place] [address]- 7920 September, [facility] [place] [facility] [address] [id number] [place] 0208 September, [facility] [place] [facility] [address] [id number] [place] [address]- 8979 September, [facility] [place] [facility] [address] [id number] [place] [address]- 7721 September, [facility] [place] [facility] [address] [id number] [place] [address]- 7379 September, [facility] [place] [facility] [address] [id number] [place] [address]- 4220 September, [facility] [place] [facility] [address] [id number] [place] [address]- 2248 Aug, [facility] [place] [facility] [address] [id number] [place] [address]- 3194 Aug, [facility] [place] [facility] [address] [id number] [place] [address]- 7850 Aug, [facility] [place] [facility] [address] [id number] [place] [address]- 4802 Aug, [facility] [place] [facility] [address] [id number] [place] [address]- 2742 Aug, [facility] [place] [facility] [address] [id number] [place]- 0906 Aug, [facility] [place] [facility] [address] [id number] [place] [address]- 0262 Jul, [facility] [place] [facility] [address] [id number] [place] [address]- 0673 Jul, [facility] [place] [facility] [address] [id number] [place] [address]- 4026 Jul, [facility] [place] [facility] [address] [id number] [place] [address]- 6778 Jul, [facility] [place] [facility] [address] [id number] [place] [address]- 8510 May, [facility] [place] [facility] [address] [id number] [place] [address]- 9591 May, [facility] [address] [id number] [place] [address]- 5149 Apr, [facility] [place] [facility] [address] [id number] [place] [address]- 9406 Apr, [facility] [address] [id number] [place] [address]- 0873 Apr, [facility] [address] [id number] [place] [address]- 1527 Apr, [facility] [address] [id number] [place] [address]- 9430 Apr, [facility] [place] [facility] [address] [id number] [place] [address]- 5803 Apr, [facility] [place] [facility] [address] [id number] [place] [address]- 8256 Feb, [facility] [place] [facility] [address] [id number] [place] [address]- 7466 Feb, [facility] [place] [facility] [address] [id number] [place] [address]- 7144 Feb, [facility] [place] [facility] [address] [id number] [place] [address]- 9346 Feb, [facility] [place] [facility] [address] [id number] [place] [address]- 0098 Feb, [facility] [place] [facility] [address] [id number] [address]- 1969 Feb, [facility] [address] [id number] [place] [address]- 0033 Feb, [facility] [place] [facility] [address] [id number] [place] [address]- 2499 Feb, [facility] [place] [facility] [address] [id number] [place] [address]- 0113 Jan, [facility] [place] [facility] [address] [id number] [place] [address]- 8863 Jan, [facility] [place] [facility] [address] [id number] [place] 9101 Jan, [facility] [place] [facility] [address] [id number] [place] [address]- 3277 Jan, [facility] [place] [facility] [address] [id number] [place] [address]- 3249 Dec, [facility] [place] [facility] [address] [id number] [place] [address]- 4588 Dec, [facility] [place] [facility] [address] [id number] [place] [address] Dec, [facility] [place] [facility] [address] [id number] [place] [address] Nov, [facility] [place] [facility] [address] [id number] [place] [address] Nov, [facility] [place] [facility] [address] [id number] [place] [address] Oct, [facility] [place] [facility] [address] [id number] [place] [address] September, [facility] [place] [facility] [address] [id number] [place] [address] September, [facility] [place] [facility] [address] [id number] [place] [address] September, [facility] [place] [facility] [address] [id number] [place] [address] 19 Aug, 2012 [facility] [address] [id number] [place] [address] 16 Aug, 2012 [facility] [address] [id number] [place] [address] 15 Aug, 2012 [facility] [address] [id number] [place] [address] 26 Jul, 2012 [facility] [address] [id number] [place] [address] Jul, [facility] [address] [id number] [place] [address] Jun, [facility] [address] [id number] [place] [address] Jun, [facility] [address] [id number] [place] [address] Jun, [facility] [address] [id number] [place] [address] Jun, [facility] [address] [id number] [place] [address] May, [facility] [address] [id number] [place] [address] May, [facility] [address] [id number] [place] [address] Apr, [facility] [address] [id number] [place] [address] Apr, [facility] [place] [facility] [address] [id number] [place] [address] Apr, [facility] [address] [id number] [place] [address] Apr, [facility] [place] [facility] [address] [id number] [place] [address] Apr, [facility] [place] [facility] [address] [id number] [place] [address] Apr, [facility] [place] [facility] [address] [id number] [place] [address] Mar, [facility] [place] [facility] [address] [facility] [id number] [place] [address] Mar, [facility] [place] [facility] [address] [id number] [place] [address] Mar, [facility] [place] [facility] [address] [id number] [place] [address] Mar, [facility] [place] [facility] [address] [facility] [id number] [place] [address] Mar, [facility] [place] [facility] [address] [facility] [id number] [place] [address] Mar, [facility] [place] [facility] [address] [id number] [address] Feb, [facility] [place] [facility] [address] [id number] [address] Feb, [facility] [place] [facility] [address] [facility] [id number] [place] [address] Feb, [facility] [place] [facility] [address] [facility] [id number] [place] [address] Feb, [facility] [place] [facility] [address] [id number] [place] [address] 25[address] Feb, [facility] [place] [facility] [address] [id number] [place] [address] Jan, [facility] [place] [facility] [address] [facility] [id number] [place] [address] Jan, [facility] [place] [facility] [address] [facility] [id number] [place] [address] Jan, [facility] [place] [facility] [address] [id number] [place] [address] Dec, [facility] [place] [facility] [address] [id number] [place] [address] Dec, [facility] [place] [facility] [address] [id number] [place] [address] Nov, [facility] [place] [facility] [address] [id number] [place] [address] Oct, [facility] [place] [facility] [address] [id number] [place] [address] Oct, [facility] [place] [facility] [address] [id number] [place] [address] Oct, [facility] [place] [facility] [address] [id number] [place] [address] Oct, [facility] [place] [facility] [address] [id number] [place] [address] Oct, [facility] [place] [facility] [address] [id number] [place] [address] September, [facility] [place] [facility] [address] [id number] [place] [address] 18 Aug, 2011 [facility] [place] [facility] [address] [id number] [place] [address] 18 Aug, 2011 [facility] [place] [facility] [address] [id number] [place] [address] 17 Aug, 2011 [facility] [place] [facility] [address] [id number] [place] [address]- 2669 16 Aug, 2011 [facility] [place] [facility] [address] [id number] [place] [address] 3648 13 Aug, 2011 [facility] [place] [facility] [address] [id number] [place] [address]- [address]68 11 Aug, 2011 [facility] [place] [facility] [address] [id number] [place] [address]- 9680 11 Aug, 2011 [facility] [place] [facility] [address] [id number] [place] [address]- 6246 05 Aug, 2011 [facility] [place] [facility] [address] [id number] [place] [address]- [address]26 05 Aug, 2011 [facility] [place] [facility] [address] [id number] [place] [address]- 7786 20 Jul, 2011 [facility] [place] [facility] [address] [id number] [place] [address]- 9566 20 Jul, 2011 [facility] [place] [facility] [address] [id number] [place] [address]- 9232 20 Jul, 2011 [facility] [place] [facility] [address] [id number] [place] [address]- [address] 17 Jul, 2011 [facility] [address] [id number] [place] [address]- [address]66 Jul, [facility] [place] [facility] [address] [id number] [place] [address] 15 Jun, 2011 [facility] [place] [facility] [address] [id number] [place] [address]- 8013 14 Jun, 2011 [facility] [place] [facility] [address] [id number] [place] [address]- [address] 08 Jun, 2011 [facility] [place] [facility] [address] [id number] [place] [address]- 7636 08 Jun, 2011 [facility] [place] [facility] [address] [id number] [place] [address] May, [facility] [place] [facility] [address] [id number] [place] [address]- 2546 13 May, 2011 [facility] [place] [facility] [address] [id number] [place] [address]- 5676 10 May, 2011 [facility] [place] [facility] [address] [id number] [place] [address]- [address]396 08 May, 2011 [facility] [place] [facility] [address] [id number] [place] [address] 6[address] May, [facility] [address] [id number] [place] [address]- [address] May, [facility] [address] [id number] [place] [address]- 6342 May, [facility] [address] [id number] [place] [address] 37[address] Apr, [facility] [place] [facility] [address] [id number] [place] [address]- 6482 13 Apr, 2011 [facility] [address] [id number] [place] [address]393 Apr, [facility] [place] [facility] [address] [id number] [place] [address] 4054 Apr, [facility] [address] [id number] [place] [address]- [address]37 Apr, [facility] [place] [facility] [address] [id number] [place] [address]- 6527 Apr, [facility] [address] [id number] [place] [address]- 36[address] Apr, [facility] [place] [facility] [address] [id number] [place] [address]- 0614 Apr, [facility] [address] [id number] [place] [address]- 4789 Apr, [facility] [place] [facility] [address] [id number] [place] [address]- 6476 Apr, [facility] [place] [facility] [address] [id number] [place] [address]- 9496 Mar, [facility] [place] [facility] [address] [id number] [place] [address]- 1757 16 Mar, 2011 [facility] [place] [facility] [address] [id number] [place] [address]- 0668 Feb, [facility] [place] [facility] [address] [facility] [id number] [place] [address] Jun, [facility] [address] [facility] [id number] [place] [address] Apr, [facility] [address] [facility] [id number] [place] [address] Feb, [facility] [id number] [address] Feb, [facility] [address] [facility] [id number] [place] [address] 8[address] Feb, [facility] [id number] [place] [address]- [address] Apr, [facility] [id number] [address] Apr, [facility] [id number] [address] Mar, [facility] [id number] [address] Mar, [facility] [address]00565100[place] [address]- [address] Mar, [facility] [address]00565[address] [address] 16[address] Feb, [facility] [address]00565[address] [address] Feb, [facility] [address] [id number] [address] Feb, [facility] [address]65[address] [address] Jan, IMMUNIZATIONS No Known Immunizations SOCIAL HISTORY Never Assessed REASON FOR VISIT medication question PLAN OF CARE VITAL SIGNS MEDICATIONS [...]
--- OUTSIDE RECORDS SUMMARY | 2018-04-28 05:22 | XMS REPORT ---
Author Author MARLEY MCGRATH Organization [facility] Address [address] [place] [address] Care Team Providers Care Substation Electrician Supervisor Name Role Phone MARLEY MCGRATH Unavailable PROBLEMS Type Condition ICD9-CM Code YHW00-QA Code Onset Dates Condition Status SNOMED Code Problem Hammertoe of right foot M20.41 Active 572647836 Problem Moderate episode of recurrent major depressive disorder F33.1 Active 475076501 Problem Hypertriglyceridemia E78.1 Active 229037421 Problem Other chronic pain G89.29 Active 56571001 Problem Memory loss R41.3 Active 422037059 Problem 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.01 Active 5039801 Problem Chronic fatigue R53.82 Active 37704970 Problem Controlled type 2 diabetes mellitus without complication, without long -term current use of insulin E11.9 Active 974875924 Problem Chronic major depressive disorder, recurrent episode F33.9 Active 64386149 Problem Knee pain, right M25.561 Active 49366874 Problem Diabetes type 2, controlled E11.9 Active 15281785 Problem Type 2 diabetes mellitus without complications E11.9 Active 933065100 Problem Hypogonadism in male E29.1 Active 94405241 Problem longterm (current) use of anticoagulants Z79.01 Active 168444793 ALLERGIES No Information ENCOUNTERS Encounter Location Date Diagnosis [facility] [id number] [address] Dec, Hypogonadism in male E29.1 [facility] [id number] [address] Dec, Medicare welcome exam Z00.00 [facility] [id number] [address] Dec, Hypogonadism in male E29.1 [facility] [id number] [address] Dec, [facility] [address] [address] Nov, Hypogonadism in male E29.1 [facility] [address] [address] Nov, Type 2 diabetes mellitus without complications E11.9 and History of Coumadin therapy Z92.29 [facility] [address], [place] [address] 2546 Nov, Medicare welcome exam Z00.00 [facility] [address] [address] Nov, Type 2 diabetes mellitus without complications E11.9 ; History of Coumadin therapy Z92.29 and Hypogonadism in male E29.1 [facility] [address], [place] [address] Nov, [facility] [address] [address] Oct, [facility] [address] [address] 0[address] Oct, Diabetes type 2, controlled E11.9 [facility] [address] [address] 7[address] Oct, Medicare welcome exam Z00.00 [facility] [address] [address] Oct, Hypogonadism in male E29.1 [facility] [id number], [place] [address] Oct, [facility] [address] [address] September, Hypogonadism in male E29.1 [facility] [address] [address] September, Medicare welcome exam Z00.00 [facility] [id number] [address] September, Hypogonadism in male E29.1 [facility] [id number] [place] [address] 59271- 6957 Aug, Other chronic pain G89.29 ; Memory loss R41.3 ; Controlled type 2 diabetes mellitus without complication, without long-term current use of insulin E11.9 and Chronic major depressive disorder, recurrent episode F33.9 [facility] [id number] [place] [address] 33443- 7891 Aug, Medicare welcome exam Z00.00 [address] [place] [id number] [place] [address] 35684- 5318 Aug, [facility] [id number] [place] [address]7680 -9087 Aug, Hypogonadism in male E29.1 [facility] [id number] [place] [address] 50300- 3354 Jul, [facility] [id number] [place] [address] 24492- 1935 Jul, Hypogonadism in male E29.1 [facility] [id number] [place] [address] 07123- 0569 Jul, [facility] [id number] [place] [address] 45186 -6048 Jul, Hypogonadism in male E29.1 [facility] [id number] [place] [address] 45720- 0174 Jul, Medicare welcome exam Z00.00 [facility] [id number] [place] [address] 78449- 4452 Jun, Medicare welcome exam Z00.00 [facility] [id number] [place] [address] 87887 -8734 Jun, Fever R50.9 and Influenza B J10.1 [facility] [address], [place] [address] 5[address] Jun, Hypogonadism in male E29.1 [facility] [address], [place] [address] 1336 Jun, Diabetes type 2, controlled E11.9 [facility] [address], [place] [address] 8006 May, Hypogonadism in male E29.1 [facility] [address], [place] [address] 2547 May, longterm (current) use of anticoagulants Z79.01 [facility] [id number], [place] [address] 2546 Apr, Hypogonadism in male E29.1 [facility] [address], [place] [address]- 2506 Apr, [facility] [address], [place] [address]- 6542 Apr, Medicare welcome exam Z00.00 and longterm (current) use of anticoagulants Z79.01 [facility] [address], [place] [address]- 6984 Apr, Hypogonadism in male E29.1 [facility] [address], [place] [address]- 1726 Mar, Diabetes type 2, controlled E11.9 [facility] [address], [place] [address]- 4692 Mar, Hypogonadism in male E29.1 [facility] [address], [place] [address]- 3078 Mar, Hypogonadism in male E29.1 [facility] [address] 1348 Feb, Hypogonadism in male E29.1 [facility] [id number] [address] 9487 Feb, Malaise R53.81 [address] [id number] [place] [address] 68660- 1456 Feb, [address] [id number] [place] [address] 76915- 8739 Feb, Diabetes type 2, controlled E11.9 [facility] [facility] [id number] [place] [address] 74377- 0485 Feb, Chronic fatigue R53.82 ; Malaise R53.81 and Moderate episode of recurrent major depressive disorder F33.1 [facility] [facility] [id number] [place] [address] 89989- 7541 Jan, Diabetes type 2, controlled E11.9 [place] [facility] [id number] [place] [address] 52393- 7281 Jan, 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.01 and longterm (current) use of anticoagulants Z79.01 [facility] [facility] [id number] [place] [address] 41397- 8485 Dec, Diabetes type 2, controlled E11.9 and Hypertriglyceridemia E78.1 [facility] [facility] [id number] [place] [address] 09628- 4002 Dec, Diabetes type 2, controlled E11.9 [place] [id number] [place] [address] 53503- 5283 Dec, High risk medication use Z79.899 and intermission coordinator (current) use of anticoagulants Z79.01 [place] [id number] [place] [address] 14399- 1856 Dec, High risk medication use Z79.899 [place] [id number] [place] [address] 30966- 6485 Nov, Diabetes type 2, controlled E11.9 [facility] [id number] [place] [address] 58796- 7577 Oct, Diabetes type 2, controlled E11.9 [facility] [address] [address]- 4675 September, Diabetes type 2, controlled E11.9 [address] [address] 03584- 0312 Aug, intermission coordinator (current) use of anticoagulants Z79.01 [address] [place] [address] 24337- 3182 Aug, Hematoma of arm, right, initial encounter S40.021A and longterm (current) use of anticoagulants Z79.01 [address] [address] 29212- 4401 Aug, [facility] [address] [address] -[address]12 Aug, Cellulitis of right upper extremity L03.113 [address] [address] 58435- 9981 Aug, Diabetes type 2, controlled E11.9 [place] [address] 37639- 4178 Aug, Hammertoe of right foot M20.41 ; Hallux abducto valgus, left M20.12 and Onychomycosis B35.1 [place] [address] 51342- 4734 Aug, intermission coordinator (current) use of anticoagulants Z79.01 [address] [address] 92565- 8465 Aug, intermission coordinator (current) use of anticoagulants Z79.01 [address] [address] 20604- 1179 Aug, longterm (current) use of anticoagulants Z79.01 [facility] [address] 77893 -7793 03 Apr, 2017 Right shoulder pain M25.511 and Closed nondisplaced fracture of acromial end of right clavicle, initial encounter S42.034A [facility] [id number] [place] [address] 18545- 3227 Jul, Diabetes type 2, controlled E11.9 [facility] [address], [place] [address]- 7596 Jun, Diabetes type 2, controlled E11.9 and intermission coordinator (current) use of anticoagulants Z79.01 [facility] [id number], [place] [address]- 8326 May, [facility] [id number] [place] [address] 94661- 4117 Apr, [facility] [id number] [place] [address] 96727- 7647 Mar, [facility] [id number] [place] [address] 47191- 2374 Feb, [facility] [id number] [place] [address] 13136- 0087 Dec, Diabetes type 2, controlled E11.9 [facility] [address], [place] [address]- 8526 Dec, [facility] [address], [place] [address]- 8874 Nov, [facility] [address], [place] [address]- 2050 Nov, Type 2 diabetes mellitus without complications E11.9 [facility] [address], [place] [address]- 1466 Oct, Type 2 diabetes mellitus without complications E11.9 [facility] [address], [place] [address]- 0240 Aug, [facility] [address], [place] [address]- 4380 Aug, Type 2 diabetes mellitus without complications E11.9 [address] [place] [address], [place] [address]- 5102 Jun, Type 2 diabetes mellitus without complications E11.9 and 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 [address] [id number] [address]- 3067 May, [address] [place] [id number] [place] [address] 46352- 7001 May, Diabetes type 2, controlled E11.9 [place] [id number] [place] [address] 13391- 5587 Apr, Diabetes type 2, controlled E11.9 [place] [id number] [place] [address] 58611- 6474 Mar, Diabetes type 2, controlled E11.9 ; Knee pain, right M25.561 ; Other chronic pain G89.29 and Medication monitoring encounter Z51.81 [address] [place] [id number] [place] [address] 29597- 2156 Feb, Type 2 diabetes mellitus without complications E11.9 ; High risk medication use Z79.899 and Anxiety F41.9 [place] [id number] [place] [address] 90101- 4595 Jan, Diabetes 250.00 [place] [id number] [place] [address] 60222- 1486 Dec, Diabetes 250.00 [place] [id number] [place] [address] 45736- 2544 Nov, Diabetes 250.00 [place] [id number] [place] [address] 82894- 5089 Nov, [place] [id number] [place] [address] 41197- 4020 Oct, Diabetes mellitus type 1 250.01 and High risk medication use V58.69 [address] [id number] [place] [address], [place] [address]- 1691 Oct, [facility] [place] [facility] [address] [id number] [place] [address]- 3414 September, [facility] [place] [facility] [address] [id number] [place] [address]- 0905 Aug, [facility] [place] [facility] [address] [id number] [place] [address]- 9430 Aug, [facility] [place] [facility] [address] [id number] [place] [address]- 6754 Jul, [facility] [place] [facility] [address] [id number] [place] [address]- 1259 Jul, [facility] [place] [facility] [address] [id number] [place] [address]- 3005 Jun, [facility] [place] [facility] [address] [id number] [place] [address]- 6681 Jun, [facility] [place] [facility] [address] [id number] [place] [address]- 1635 Jun, [facility] [place] [facility] [address] [id number] [place] [address]- 5946 May, [facility] [place] [facility] [address] [id number] [place] [address]- 7806 May, [facility] [place] [facility] [address] [id number] [place] [address]- 5037 Apr, [facility] [place] [facility] [address] [id number] [place] [address]- 8679 Apr, [facility] [place] [facility] [address] [id number] [place] 3695 Apr, [facility] [place] [facility] [address] [id number] [place] [address]- 5772 Apr, [facility] [place] [facility] [address] [id number] [place] 3086 Apr, [facility] [place] [facility] [address] [id number] [place] [address]- 0756 Apr, [facility] [place] [facility] [address] [id number] [place] [address]- 3058 Feb, [facility] [place] [facility] [address] [id number] [place] 8245 Feb, [facility] [place] [facility] [address] [id number] [place] [address]- 7444 Feb, [facility] [place] [facility] [address] [id number] [place] [address]- 1953 Feb, [facility] [place] [facility] [address] [id number] [place] [address]- 0488 Dec, [facility] [place] [facility] [address] [id number] [place] [address]- 3409 Dec, [facility] [place] [facility] [address] [id number] [place] [address]- 2717 Nov, [facility] [place] [facility] [address] [id number] [place] [address]- 9836 Nov, [facility] [place] [facility] [address] [id number] [place] [address]- 4868 Oct, [facility] [place] [facility] [address] [id number] [place] [address]- 3771 Oct, [facility] [place] [facility] [address] [id number] [place] [address]- 4118 Oct, [facility] [place] [facility] [address] [id number] [place] [address]- 1798 Oct, [facility] [place] [facility] [address] [id number] [place] [address]- 1736 Oct, [facility] [place] [facility] [address] [id number] [place] [address]- 6456 Oct, [facility] [place] [facility] [address] [id number] [place] [address]- 7248 September, [facility] [place] [facility] [address] [id number] [place] [address]- 4372 September, [facility] [place] [facility] [address] [id number] [place] 4345 September, [facility] [place] [facility] [address] [id number] [place] [address]- 1187 September, [facility] [place] [facility] [address] [id number] [place] [address]- 2555 September, [facility] [place] [facility] [address] [id number] [place] [address]- 2086 September, [facility] [place] [facility] [address] [id number] [place] [address]- 6340 Aug, [facility] [place] [facility] [address] [id number] [place] [address]- 0697 Aug, [facility] [place] [facility] [address] [id number] [place] [address]- 5903 Aug, [facility] [place] [facility] [address] [id number] [place] [address]- 1750 Aug, [facility] [place] [facility] [address] [id number] [place] [address]- 0713 Aug, [facility] [place] [facility] [address] [id number] [place] [address]- 3174 Aug, [facility] [place] [facility] [address] [id number] [place] [address]- 9301 Jul, [facility] [place] [facility] [address] [id number] [place] [address]- 3116 Jul, [facility] [place] [facility] [address] [id number] [place] [address]- 3477 Jul, [facility] [place] [facility] [address] [id number] [place] [address]- 6027 Jul, [facility] [place] [facility] [address] [id number] [place] [address]- 0586 May, [facility] [address] [id number] [place] [address]- 2750 May, [facility] [address] [id number] [place] [address]- 7768 Apr, [facility] [address] [id number] [place] [address]- 2923 Apr, [facility] [address] [id number] [place] [address]- 8359 Apr, [facility] [address] [id number] [place] [address]- 9073 Apr, [facility] [address] [id number] [place] [address]- 0595 Apr, [facility] [address] [id number] [place] [address]- 9938 Apr, [facility] [address] [id number] [place] [address]- 0138 Feb, [facility] [address] [id number] [place] [address]- 1559 Feb, [facility] [address] [id number] [place] [address]- 3385 Feb, [facility] [place] [facility] [address] [id number] [place] [address]- 2545 Feb, [facility] [address] [id number] [place] [address]- 8651 Feb, [facility] [place] [facility] [address] [id number] [place] [address]- 4107 Feb, [facility] [place] [facility] [address] [id number] [place] [address]- 2546 Feb, [facility] [place] [facility] [address] [id number] [place] [address]- 6749 Feb, [facility] [address] [id number] [place] [address]- 4418 Jan, [facility] [place] [facility] [address] [id number] [place] [address]- 6938 Jan, [facility] [place] [facility] [address] [id number] [place] [address]- 9431 Jan, [facility] [place] [facility] [address] [id number] [place] [address]- 8852 Jan, [facility] [place] [facility] [address] [id number] [place] [address]- 3270 Dec, [facility] [place] [facility] [address] [id number] [place] [address]- 9766 Dec, [facility] [place] [facility] [address] [id number] [place] [address]- 3030 Dec, [facility] [place] [facility] [address] [id number] [place] [address]- 3928 Nov, [facility] [place] [facility] [address] [id number] [place] [address]- 6420 Nov, [facility] [place] [facility] [address] [id number] [place] [address]- 5757 Oct, [facility] [place] [facility] [address] [id number] [place] [address]- 5652 September, [facility] [place] [facility] [address] [id number] [place] [address]- 0769 September, [facility] [place] [facility] [address] [id number] [place] [address]- 1017 September, [facility] [place] [facility] [address] [id number] [place] [address]- 6561 Aug, [facility] [place] [facility] [address] [id number] [place] [address]- 4374 Aug, [facility] [place] [facility] [address] [id number] [place] [address]- 3005 15 Aug, 2012 [facility] [address] [id number] [place] [address]- 9036 Jul, [facility] [place] [facility] [address] [id number] [place] [address]- 8506 Jul, [facility] [address] [id number] [place] [address]- 0266 Jun, [facility] [place] [facility] [address] [id number] [place] [address]- 8376 Jun, [facility] [address] [id number] [place] [address]- 5366 Jun, [facility] [address] [id number] [place] [address]- 8186 Jun, [facility] [address] [id number] [place] [address]- 5816 May, [facility] [address] [id number] [place] [address]- 7285 May, [facility] [address] [id number] [place] [address]- 1182 Apr, [facility] [address] [id number] [place] [address] Apr, [facility] [address] [id number] [place] [address] Apr, [facility] [place] [facility] [address] [id number] [place] [address] Apr, [facility] [place] [facility] [address] [id number] [place] [address] Apr, [facility] [place] [facility] [address] [id number] [place] [address] Apr, [facility] [place] [facility] [address] [id number] [place] [address] Mar, [facility] [place] [facility] [address] [id number] [place] [address] Mar, [facility] [place] [facility] [address] [id number] [place] [address] Mar, [facility] [place] [facility] [address] [id number] [place] [address] Mar, [facility] [place] [facility] [address] [id number] [place] [address] Mar, [facility] [place] [facility] [address] [id number] [place] [address] Mar, [facility] [place] [facility] [address] [id number] [place] [address] Feb, [facility] [place] [facility] [address] [id number] [place] [address] Feb, [facility] [place] [facility] [address] [id number] [place] [address] Feb, [facility] [place] [facility] [address] [id number] [place] [address] Feb, [facility] [place] [facility] [address] [id number] [place] [address] Feb, [facility] [place] [facility] [address] [id number] [place] [address] Jan, [facility] [place] [facility] [address] [id number] [place] [address] Jan, [facility] [place] [facility] [address] [id number] [place] [address] Jan, [facility] [place] [facility] [address] [id number] [place] [address] Dec, [facility] [place] [facility] [address] [id number] [place] [address] Dec, [facility] [place] [facility] [address] [id number] [place] [address] Nov, [facility] [place] [facility] [address] [id number] [place] [address] Oct, [facility] [place] [facility] [address] [id number] [place] [address] Oct, [facility] [place] [facility] [address] [id number] [place] [address] Oct, [facility] [place] [facility] [address] [id number] [place] [address] Oct, [facility] [place] [facility] [address] [id number] [place] [address] Oct, [facility] [place] [facility] [address] [id number] [place] [address] September, [facility] [place] [facility] [address] [id number] [place] [address] Aug, [facility] [place] [facility] [address] [id number] [place] [address] 18 Aug, 2011 [facility] [place] [facility] [address] [id number] [place] [address]- [address] 17 Aug, 2011 [facility] [place] [facility] [address] [id number] [place] [address] 16 Aug, 2011 [facility] [place] [facility] [address] [id number] [place] [address] 13 Aug, 2011 [facility] [place] [facility] [address] [id number] [place] [address]- [address] 11 Aug, 2011 [facility] [place] [facility] [address] [id number] [place] [address] 11 Aug, 2011 [facility] [place] [facility] [address] [id number] [place] [address] 05 Aug, 2011 [facility] [place] [facility] [address] [id number] [place] [address] 05 Aug, 2011 [facility] [place] [facility] [address] [id number] [place] [address] 20 Jul, 2011 [facility] [address] [id number] [place] [address] 20 Jul, 2011 [facility] [place] [facility] [address] [id number] [place] [address] 20 Jul, 2011 [facility] [address] [id number] [place] [address] 17 Jul, 2011 [facility] [place] [facility] [address] [id number] [place] [address] 08 Jul, 2011 [facility] [address] [id number] [place] [address] 15 Jun, 2011 [facility] [place] [facility] [address] [id number] [place] [address] 14 Jun, 2011 [facility] [place] [facility] [address] [id number] [place] [address] 08 Jun, 2011 [facility] [address] [id number] [place] [address] 08 Jun, 2011 [facility] [address] [id number] [place] [address] 19 May, 2011 [facility] [address] [id number] [place] [address] 13 May, 2011 [facility] [address] [id number] [place] [address] 10 May, 2011 [facility] [place] [facility] [address] [id number] [place] [address] 08 May, 2011 [facility] [place] [facility] [address] [id number] [place] [address] 06 May, 2011 [facility] [place] [facility] [address] [id number] [place] [address] 04 May, 2011 [facility] [place] [facility] [address] [id number] [place] [address] May, [facility] [address] [id number] [place] [address] Apr, [facility] [place] [facility] [address] [id number] [place] [address] Apr, [facility] [place] [facility] [address] [id number] [place] [address] 83[address] Apr, [facility] [place] [facility] [address] [id number] [place] [address] Apr, [facility] [place] [facility] [address] [id number] [place] [address] Apr, [facility] [place] [facility] [address] [id number] [place] [address] Apr, [facility] [place] [facility] [address] [id number] [place] [address] Apr, [facility] [place] [facility] [address] [id number] [place] [address] Apr, [facility] [place] [facility] [address] [id number] [place] [address] Apr, [facility] [place] [facility] [address] [id number] [place] [address] Apr, [facility] [place] [facility] [address] [id number] [address] Mar, [facility] [place] [facility] [address] [id number], [place] [address] Mar, [facility] [place] [facility] [address] [id number] [place] [address] Feb, [facility] [place] [facility] [address] [id number], [place] [address] 16 Jun, 2010 [facility] [place] [facility] [address] [id number], [place] [address] Apr, [facility] [place] [facility] [id number] [address] Feb, [facility] [id number] [address] Feb, [facility] [id number] [address] [address] Feb, [facility] [id number] [address] [address] Apr, [facility] [id number] [address] Apr, [facility] [id number] [place] [address] Mar, [facility] [id number] [address] Mar, [facility] [id number] [place] [address] Mar, [facility] [id number], [place] [address] Feb, [facility] [id number] Feb, [facility] [id number], [place] [address] Feb, [facility] [id number] [address] Jan, IMMUNIZATIONS No Known Immunizations SOCIAL HISTORY Never Assessed REASON FOR VISIT Lab (walk-in). [facility] [place] PLAN OF CARE VITAL SIGNS MEDICATIONS Unknown Medications RESULTS Name Result Date Reference Range INR (IN HOUSE) 2017-11-22 INR 2.6 1.10 - 3.30 PREVIOUS INR 2.9 CURRENT COUMADIN DOSE NEW COUMADIN DOSE Lot # [id number] Exp date 07/2018 PROCEDURES Procedure Date Ordered Result Body Site PROTHROMBIN TIME November 22, 2017 INSTRUCTIONS MEDICATIONS ADMINISTERED No Known Medications [...]
--- OUTSIDE RECORDS SUMMARY | 2018-04-28 05:23 | XMS REPORT ---
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 Name Role Phone MARLEY MCGRATH Unavailable PROBLEMS Type Condition ICD9-CM Code LTA72-RW Code Onset Dates Condition Status SNOMED Code Problem Hammertoe of right foot M20.41 Active 091732316 Problem Moderate episode of recurrent major depressive disorder F33.1 Active 564922093 Problem Hypertriglyceridemia E78.1 Active 520495606 Problem Other chronic pain G89.29 Active 68669363 Problem Memory loss R41.3 Active 124866980 Problem 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.01 Active 5544831 Problem Chronic fatigue R53.82 Active 65293984 Problem Controlled type 2 diabetes mellitus without complication, without long -term current use of insulin E11.9 Active 425973765 Problem Chronic major depressive disorder, recurrent episode F33.9 Active 79550460 Problem Knee pain, right M25.561 Active 45109756 Problem Diabetes type 2, controlled E11.9 Active 06284236 Problem Type 2 diabetes mellitus without complications E11.9 Active 977840858 Problem Hypogonadism in male E29.1 Active 37309366 Problem [facility] (current) use of anticoagulants Z79.01 Active 412952987 ALLERGIES No Information ENCOUNTERS Encounter Location Date Diagnosis [facility] [place] [id number] [address] Dec, Hypogonadism in male E29.1 [facility] [place] [address] [id number] [address] Dec, Medicare welcome exam Z00.00 [facility] [place] [address] [id number] [address] Dec, Hypogonadism in male E29.1 [facility] [place] [address] [id number] [address] Dec, [facility] [place] [address] [address] 4[address] Nov, Hypogonadism in male E29.1 [facility] [place] [address] [address] Nov, Type 2 diabetes mellitus without complications E11.9 and History of Coumadin therapy Z92.29 [facility] [place] [address] [address] 2546 Nov, Medicare welcome exam Z00.00 [facility] [place] [address] [address] Nov, Type 2 diabetes mellitus without complications E11.9 ; History of Coumadin therapy Z92.29 and Hypogonadism in male E29.1 [facility] [place] [address] [address] 6[address] Nov, [facility] [place] [address] [address] 4[address] Oct, [facility] [place] [address] [address] 3[address] Oct, Diabetes type 2, controlled E11.9 [facility] [place] [address] [address] Oct, Medicare welcome exam Z00.00 [facility] [place] [address] [address] Oct, Hypogonadism in male E29.1 [facility] [address] [id number] [address] Oct, [facility] [place] [address] [address] 6[address] September, Hypogonadism in male E29.1 [facility] [place] [address] [address] 3936 September, Medicare welcome exam Z00.00 [facility] [place] [id number] [address] September, Hypogonadism in male E29.1 [facility] [place] [id number] [place] [address]- 2757 Aug, Other chronic pain G89.29 ; Memory loss R41.3 ; Controlled type 2 diabetes mellitus without complication, without long-term current use of insulin E11.9 and Chronic major depressive disorder, recurrent episode F33.9 [facility] [place] [id number] [place] [address]- 7948 Aug, Medicare welcome exam Z00.00 [place] [id number] [place] [address]- 4754 Aug, [facility] [id number] [place] [address]679 -3211 Aug, Hypogonadism in male E29.1 [facility] [place] [id number] [place] [address] 83385- 5101 Jul, [facility] [place] [id number] [place] [address] 56253- 6671 Jul, Hypogonadism in male E29.1 [facility] [place] [id number] [place] [address] 97338- 9026 Jul, [facility] [id number] [place] [address] -[address] Jul, Hypogonadism in male E29.1 [facility] [place] [id number] [place] [address] 93412- 4164 Jul, Medicare welcome exam Z00.00 [facility] [place] [id number] [place] [address] 04782- 7535 Jun, Medicare welcome exam Z00.00 [facility] [id number] [place] [address] -1393 Jun, Fever R50.9 and Influenza B J10.1 [facility] [place] [address] [address]- 4436 Jun, Hypogonadism in male E29.1 [facility] [place] [address]005[address] [address]- 9566 Jun, Diabetes type 2, controlled E11.9 [facility] [place] [address]005[address] [address] 7016 May, Hypogonadism in male E29.1 [facility] [place] [address]005[address] [address] 2540 May, [facility] (current) use of anticoagulants Z79.01 [facility] [place] [id number] [address] 2546 Apr, Hypogonadism in male E29.1 [facility] [place] [address]005[address] [address]- 8556 Apr, [facility] [place] [address] [address]- 8020 Apr, Medicare welcome exam Z00.00 and [facility] (current) use of anticoagulants Z79.01 [facility] [place] [address] [address]- 5309 Apr, Hypogonadism in male E29.1 [facility] [place] [address] [address]- 1056 Mar, Diabetes type 2, controlled E11.9 [facility] [place] [address] [address]- 3048 Mar, Hypogonadism in male E29.1 [facility] [place] [address] [address]- 1668 Mar, Hypogonadism in male E29.1 [facility] [place] [address] [address] Feb, Hypogonadism in male E29.1 [facility] [place] [id number] [address]- 3647 Feb, Malaise R53.81 [place] [id number] [place] [address] 13977- 0951 Feb, [place] [id number] [place] [address] 13704- 7562 Feb, Diabetes type 2, controlled E11.9 [place] [id number] [place] [address] 23184- 6745 Feb, Chronic fatigue R53.82 ; Malaise R53.81 and Moderate episode of recurrent major depressive disorder F33.1 [place] [id number] [place] [address] 61674- 8824 Jan, Diabetes type 2, controlled E11.9 [place] [id number] [place] [address] 42008- 5992 Jan, 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.01 and [facility]CI (current) use of anticoagulants Z79.01 [place] [id number] [place] [address] 23849- 0719 Dec, Diabetes type 2, controlled E11.9 and Hypertriglyceridemia E78.1 [place] [id number] [place] [address] 12983- 5185 Dec, Diabetes type 2, controlled E11.9 [place] [place] [address] 68041- 9028 Dec, High risk medication use Z79.899 and 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 (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 anticoagulants Z79.01 [address] [address] [address] [place] [address] 27359- 1458 Dec, High risk medication use Z79.899 [place] [id number] [place] [address] 64699- 3206 Nov, Diabetes type 2, controlled E11.9 [place] [id number] [place] [address] 70290- 2777 Oct, Diabetes type 2, controlled E11.9 [facility] [place] [address] [address]- 8561 September, Diabetes type 2, controlled E11.9 [address] [address] 75225- 9034 Aug, 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 (current) use of anticoagulants Z79.01 [address] [address] [address]- 2988 Aug, Hematoma of arm, right, initial encounter S40.021A and [facility] (current) use of anticoagulants Z79.01 [place] [address] 8[address]83- 6733 Aug, [facility] [place] [address] [address]58 -[address]145 Aug, Cellulitis of right upper extremity L03.113 [address] [address] 43852- 5921 Aug, Diabetes type 2, controlled E11.9 [address] [place] [address] 04854- 4475 Aug, Hammertoe of right foot M20.41 ; Hallux abducto valgus, left M20.12 and Onychomycosis B35.1 [address] [address] 99853- 2439 Aug, 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 (current) use of anticoagulants Z79.01 [address] 45608- 7037 Aug, 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 (current) use of anticoagulants Z79.01 [address] 34239- 3114 Aug, [facility] (current) use of anticoagulants Z79.01 [facility] [address] [address] 03 Apr, 2017 Right shoulder pain M25.511 and Closed nondisplaced fracture of acromial end of right clavicle, initial encounter S42.034A [facility] [place] [id number] [place] [address] 29866- 0926 Jul, Diabetes type 2, controlled E11.9 [facility] [place] [address] [address]- 5826 Jun, Diabetes type 2, controlled E11.9 and 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 (current) use of anticoagulants Z79.01 [facility] [place] [id number] [address]- 1579 May, [facility] [place] [id number] [place] [address] 52677- 0495 Apr, [facility] [place] [id number] [place] [address] 14966- 5683 Mar, [facility] [place] [id number] [place] [address] 82504- 8782 Feb, [facility] [place] [address] [place] [address] 08227- 7980 Dec, Diabetes type 2, controlled E11.9 [facility] [place] [address] [address]- 0845 Dec, [facility] [place] [address] [address]- 4966 Nov, [facility] [place] [address] [address]- 2232 Nov, Type 2 diabetes mellitus without complications E11.9 [facility] [place] [address] [address]- 3086 Oct, Type 2 diabetes mellitus without complications E11.9 [facility] [place] [address] [address]- 7702 Aug, [facility] [place] [address] [address]- 6850 Aug, Type 2 diabetes mellitus without complications E11.9 [place] [address] [address]- 0768 Jun, Type 2 diabetes mellitus without complications E11.9 and 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 [place] [id number] [address]- 1108 May, [place] [id number] [place] [address] 02444- 9236 May, Diabetes type 2, controlled E11.9 [place] [id number] [place] [address] 51123- 5317 Apr, Diabetes type 2, controlled E11.9 [place] [id number] [place] [address] 71185- 9363 Mar, Diabetes type 2, controlled E11.9 ; Knee pain, right M25.561 ; Other chronic pain G89.29 and Medication monitoring encounter Z51.81 [place] [id number] [place] [address] 94473- 0992 Feb, Type 2 diabetes mellitus without complications E11.9 ; High risk medication use Z79.899 and Anxiety F41.9 [place] [id number] [place] [address] 71915- 5757 Jan, Diabetes 250.00 [place] [id number] [place] [address] 03902- 9510 Dec, Diabetes 250.00 [place] [id number] [place] [address] 90145- 2543 Nov, Diabetes 250.00 [address] [id number] [place] [address] 14103- 8432 Nov, [place] [id number] [place] [address] 94466- 4379 Oct, Diabetes mellitus type 1 250.01 and High risk medication use V58.69 [place] [id number] [place] [address], [place] [address]- 2858 Oct, [facility] [place] [facility] [address] [id number] [place] [address]- 1598 September, [facility] [place] [facility] [address] [id number] [place] [address]- 9849 Aug, [facility] [place] [facility] [address] [id number] [place] [address]- 5592 Aug, [facility] [place] [facility] [address] [id number] [place] [address]- 2080 Jul, [facility] [place] [facility] [address] [id number] [place] [address]- 0817 Jul, [facility] [place] [facility] [address] [id number] [place] [address]- 5280 Jun, [facility] [place] [facility] [address] [id number] [place] [address]- 7391 Jun, [facility] [place] [facility] [address] [id number] [place] [address]- 6038 Jun, [facility] [place] [facility] [address] [id number] [place] [address]- 1442 May, [facility] [place] [facility] [address] [id number] [place] [address]- 8516 May, [facility] [place] [facility] [address] [id number] [place] [address]- 6046 Apr, [facility] [place] [facility] [address] [id number] [place] [address]- 1365 Apr, [facility] [place] [facility] [address] [id number] [place] 0110 Apr, [facility] [place] [facility] [address] [id number] [place] [address]- 1941 Apr, [facility] [place] [facility] [address] [id number] [place] 4930 Apr, [facility] [place] [facility] [address] [id number] [place] [address]- 6044 Apr, [facility] [place] [facility] [address] [id number] [place] [address]- 4670 Feb, [facility] [place] [facility] [address] [id number] [place] 9507 Feb, [facility] [place] [facility] [address] [id number] [place] [address]- 4647 Feb, [facility] [place] [facility] [address] [id number] [place] [address]- 1470 Feb, [facility] [place] [facility] [address] [id number] [place] [address]- 5779 Dec, [facility] [place] [facility] [address] [id number] [place] [address]- 9107 Dec, [facility] [place] [facility] [address] [id number] [place] [address]- 5755 Nov, [facility] [place] [facility] [address] [id number] [place] [address]- 2407 Nov, [facility] [place] [facility] [address] [id number] [place] [address]- 2075 Oct, [facility] [place] [facility] [address] [id number] [place] [address]- 1805 Oct, [facility] [place] [facility] [address] [id number] [place] [address]- 4584 Oct, [facility] [place] [facility] [address] [id number] [place] [address]- 8816 Oct, [facility] [place] [facility] [address] [id number] [place] [address]- 0421 Oct, [facility] [place] [facility] [address] [id number] [place] [address]- 1203 Oct, [facility] [place] [facility] [address] [id number] [place] [address]- 3156 September, [facility] [place] [facility] [address] [id number] [place] [address]- 4721 September, [facility] [place] [facility] [address] [id number] [place] 4118 September, [facility] [place] [facility] [address] [id number] [place] [address]- 3173 September, [facility] [place] [facility] [address] [id number] [place] [address]- 2452 September, [facility] [place] [facility] [address] [id number] [place] [address]- 6408 September, [facility] [place] [facility] [address] [id number] [place] [address]- 2094 Aug, [facility] [place] [facility] [address] [id number] [place] [address]- 2150 Aug, [facility] [place] [facility] [address] [id number] [place] [address]- 9041 Aug, [facility] [place] [facility] [address] [id number] [place] [address]- 3065 Aug, [facility] [place] [facility] [address] [id number] [place] [address]- 3051 Aug, [facility] [place] [facility] [address] [id number] [place] [address]- 8708 Aug, [facility] [place] [facility] [address] [id number] [place] [address]- 0260 Jul, [facility] [place] [facility] [address] [id number] [place] [address]- 8359 Jul, [facility] [place] [facility] [address] [id number] [place] [address]- 0194 Jul, [facility] [place] [facility] [address] [id number] [place] [address]- 8327 Jul, [facility] [place] [facility] [address] [id number] [place] [address]- 5458 May, [facility] [address] [id number] [place] [address]- 7530 May, [facility] [address] [id number] [place] [address]- 4219 Apr, [facility] [address] [id number] [place] [address]- 5921 Apr, [facility] [address] [id number] [place] [address]- 2112 Apr, [facility] [address] [id number] [place] [address]- 1523 Apr, [facility] [address] [id number] [place] [address]- 7155 Apr, [facility] [address] [id number] [place] [address]- 8736 Apr, [facility] [address] [id number] [place] [address]- 3604 Feb, [facility] [address] [id number] [place] [address]- 1973 Feb, [facility] [address] [id number] [place] [address]- 3196 Feb, [facility] [place] [facility] [address] [id number] [place] [address]- 2547 Feb, [facility] [address] [id number] [place] [address]- 2975 Feb, [facility] [place] [facility] [address] [id number] [place] [address]- 2482 Feb, [facility] [place] [facility] [address] [id number] [place] [address]- 2546 Feb, [facility] [place] [facility] [address] [id number] [place] [address]- 8103 Feb, [facility] [address] [id number] [place] [address] Jan, [facility] [place] [facility] [address] [id number] [place] [address] Jan, [facility] [place] [facility] [address] [id number] [place] [address] Jan, [facility] [place] [facility] [address] [id number] [place] [address] Jan, [facility] [place] [facility] [address] [id number] [place] [address] Dec, [facility] [place] [facility] [address] [id number] [place] [address] Dec, [facility] [place] [facility] [address] [id number] [place] [address] Dec, [facility] [place] [facility] [address] [id number] [place] [address] Nov, [facility] [place] [facility] [address] [id number] [place] [address] Nov, [facility] [place] [facility] [address] [id number] [place] [address] Oct, [facility] [place] [facility] [address] [id number] [place] [address] September, [facility] [place] [facility] [address] [id number] [place] [address] September, [facility] [place] [facility] [address] [id number] [place] [address] September, [facility] [place] [facility] [address] [id number] [place] [address] Aug, [facility] [place] [facility] [address] [id number] [place] [address] Aug, [facility] [place] [facility] [address] [id number] [place] [address] 15 Aug, 2012 [facility] [address] [id number] [place] [address] Jul, [facility] [place] [facility] [address] [id number] [place] [address] Jul, [facility] [address] [id number] [place] [address] Jun, [facility] [place] [facility] [address] [id number] [place] [address] Jun, [facility] [address] [id number] [place] [address] Jun, [facility] [address] [id number] [place] [address] Jun, [facility] [address] [id number] [place] [address] May, [facility] [address] [id number] [place] [address] May, [facility] [address] [id number] [place] [address] Apr, [facility] [address] [id number] [place] [address] Apr, [facility] [address] [id number] [place] [address] Apr, [facility] [place] [facility] [address] [id number] [place] [address] Apr, [facility] [place] [facility] [address] [id number] [place] [address] Apr, [facility] [place] [facility] [address] [id number] [place] [address] Apr, [facility] [place] [facility] [address] [id number] [place] [address] Mar, [facility] [place] [facility] [address] [id number] [place] [address] Mar, [facility] [place] [facility] [address] [id number] [place] [address] Mar, [facility] [place] [facility] [address] [id number] [place] [address] Mar, [facility] [place] [facility] [address] [id number] [place] [address] Mar, [facility] [place] [facility] [address] [id number] [place] [address] Mar, [facility] [place] [facility] [address] [id number] [place] [address] Feb, [facility] [place] [facility] [address] [id number] [place] [address] Feb, [facility] [place] [facility] [address] [id number] [place] [address] Feb, [facility] [place] [facility] [address] [id number] [place] [address] Feb, [facility] [place] [facility] [address] [id number] [place] [address] Feb, [facility] [place] [facility] [address] [id number] [place] [address] Jan, [facility] [place] [facility] [address] [id number] [place] [address] Jan, [facility] [place] [facility] [address] [id number] [place] [address] Jan, [facility] [place] [facility] [address] [id number] [place] [address] Dec, [facility] [place] [facility] [address] [id number] [place] [address] Dec, [facility] [place] [facility] [address] [id number] [place] [address] Nov, [facility] [place] [facility] [address] [id number] [place] [address] Oct, [facility] [place] [facility] [address] [id number] [place] [address] Oct, [facility] [place] [facility] [address] [id number] [place] [address] Oct, [facility] [place] [facility] [address] [id number] [place] [address] Oct, [facility] [place] [facility] [address] [id number] [place] [address]697 Oct, [facility] [place] [facility] [address] [id number] [place] [address] September, [facility] [place] [facility] [address] [id number] [place] [address] Aug, [facility] [place] [facility] [address] [id number] [place] [address] 8960 18 Aug, 2011 [facility] [place] [facility] [address] [id number] [place] [address]- [address] 17 Aug, 2011 [facility] [place] [facility] [address] [id number] [place] [address]383 16 Aug, 2011 [facility] [place] [facility] [address] [id number] [place] [address] 13 Aug, 2011 [facility] [place] [facility] [address] [id number] [place] [address]- 3868 11 Aug, 2011 [facility] [place] [facility] [address] [id number] [place] [address] 5230 11 Aug, 2011 [facility] [place] [facility] [address] [id number] [place] [address]- [address]178 05 Aug, 2011 [facility] [place] [facility] [address] [id number] [place] [address]- [address]609 05 Aug, 2011 [facility] [place] [facility] [address] [id number] [place] [address]102 20 Jul, 2011 [facility] [address] [id number] [place] [address] 8766 20 Jul, 2011 [facility] [place] [facility] [address] [id number] [place] [address] 3416 20 Jul, 2011 [facility] [address] [id number] [place] [address] 5066 17 Jul, 2011 [facility] [place] [facility] [address] [id number] [place] [address]- 7557 08 Jul, 2011 [facility] [address] [id number] [place] [address]- 4536 15 Jun, 2011 [facility] [place] [facility] [address] [id number] [place] [address] 6796 14 Jun, 2011 [facility] [place] [facility] [address] [id number] [place] [address] 8702 08 Jun, 2011 [facility] [address] [id number] [place] [address]- 5976 08 Jun, 2011 [facility] [address] [id number] [place] [address]049 19 May, 2011 [facility] [address] [id number] [place] [address]26 13 May, 2011 [facility] [address] [id number] [place] [address] 6392 10 May, 2011 [facility] [place] [facility] [address] [id number] [place] [address]- 5617 08 May, 2011 [facility] [place] [facility] [address] [id number] [place] [address]- 5426 06 May, 2011 [facility] [place] [facility] [address] [id number] [place] [address]- 9846 04 May, 2011 [facility] [place] [facility] [address] [id number] [place] [address]- 7673 May, [facility] [address] [id number] [place] [address] Apr, [facility] [place] [facility] [address] [id number] [place] [address] 1846 Apr, [facility] [place] [facility] [address] [id number] [place] [address] 0456 Apr, [facility] [place] [facility] [address] [id number] [place] [address]- 8077 Apr, [facility] [place] [facility] [address] [id number] [place] [address]- 7487 Apr, [facility] [place] [facility] [address] [id number] [place] [address]- 2655 Apr, [facility] [place] [facility] [address] [id number] [place] [address]- 8780 Apr, [facility] [place] [facility] [address] [id number] [place] [address]- 0147 Apr, [facility] [place] [facility] [address] [id number] [place] [address]- 4832 Apr, [facility] [place] [facility] [address] [id number] [place] [address]- 9114 Apr, [facility] [place] [facility] [address] [id number] [place] [address] Mar, [facility] [place] [facility] [address] [id number] [place] [address] 2549 Mar, [facility] [place] [facility] [address] [id number] [place] [address] 2546 Feb, [facility] [place] [facility] [address] [id number] [place] [address]336 16 Jun, 2010 [facility] [place] [facility] [address] [id number] [place] [address]46 Apr, [facility] [place] [facility] [id number] [place] [address] Feb, [facility] [place] [id number] [address] Feb, [facility] [place] [id number] [place] [address] 8483 Feb, [facility] [place] [id number] [address] 609[address] Apr, [facility] [place] [id number] [place] [address]- 3658 Apr, [facility] [place] [id number] [place] [address]- [address] Mar, [facility] [place] [id number] [place] [address]- 4889 Mar, [facility] [place] [id number] [place] [address]- 3893 Mar, [facility] [place] [id number] [place] [address]20 Feb, [facility] [place] [id number] [place] [address]- [address]37 Feb, [facility] [place] [address] [place] [address]- 3049 Feb, [facility] [place] [id number] [address] 7[address] Jan, IMMUNIZATIONS No Known Immunizations SOCIAL HISTORY Never Assessed REASON FOR VISIT Controlled Med Refill PLAN OF CARE VITAL SIGNS MEDICATIONS Medication [...]
--- OUTSIDE RECORDS SUMMARY | 2018-04-28 05:23 | XMS REPORT ---
Author Author MARLEY MCGRATH Organization [facility] Address [address] [place] [address] Care Team Providers Care [facility] Or Nursery Transplanter Name Role Phone MARLEY MCGRATH Unavailable PROBLEMS Type Condition ICD9-CM Code CLX67-TG Code Onset Dates Condition Status SNOMED Code Problem Hammertoe of right foot M20.41 Active 481790914 Problem Moderate episode of recurrent major depressive disorder F33.1 Active 001148983 Problem Hypertriglyceridemia E78.1 Active 169891568 Problem Other chronic pain G89.29 Active 04979925 Problem Memory loss R41.3 Active 707347533 Problem 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.01 Active 3679099 Problem Chronic fatigue R53.82 Active 22769439 Problem Controlled type 2 diabetes mellitus without complication, without long -term current use of insulin E11.9 Active 535600655 Problem Chronic major depressive disorder, recurrent episode F33.9 Active 63345598 Problem Knee pain, right M25.561 Active 98146311 Problem Diabetes type 2, controlled E11.9 Active 75240144 Problem Type 2 diabetes mellitus without complications E11.9 Active 918254783 Problem Hypogonadism in male E29.1 Active 10924977 Problem intermediate (current) use of anticoagulants Z79.01 Active 200123407 ALLERGIES Substance Reaction Event Type Date Status Sulfamethoxazole-Trimethoprim Unknown Drug Allergy Nov, Active ENCOUNTERS Encounter Location Date Diagnosis [facility] [id number] [address] Dec, Hypogonadism in male E29.1 [facility] [address], [place] [address] Dec, Medicare welcome exam Z00.00 [facility] [id number], [place] [address] Dec, Hypogonadism in male E29.1 [facility] [address], [place] [address] Dec, [facility] [address], [place] [address] Nov, Hypogonadism in male E29.1 [facility] [address], [place] [address] Nov, Type 2 diabetes mellitus without complications E11.9 and History of Coumadin therapy Z92.29 [facility] [address], [place] [address]46 18 Nov, 2017 Medicare welcome exam Z00.00 [facility] [address], [place] [address] 2546 Nov, Type 2 diabetes mellitus without complications E11.9 ; History of Coumadin therapy Z92.29 and Hypogonadism in male E29.1 [facility] [address], [place] [address] Nov, [facility] [address], [place] [address] Oct, [facility] [id number] [address] Oct, Diabetes type 2, controlled E11.9 [facility] [address], [place] [address] 2546 Oct, Medicare welcome exam Z00.00 [facility] [address], [place] [address] Oct, Hypogonadism in male E29.1 [facility] [address], [place] [address] Oct, [facility] [address], [place] [address] September, Hypogonadism in male E29.1 [facility] [address], [place] [address] 64[address] September, Medicare welcome exam Z00.00 [facility] [address], [place] [address] September, Hypogonadism in male E29.1 [facility] [address], [place] [address] Aug, Other chronic pain G89.29 ; Memory loss R41.3 ; Controlled type 2 diabetes mellitus without complication, without long-term current use of insulin E11.9 and Chronic major depressive disorder, recurrent episode F33.9 [facility] [address], [place] [address] Aug, Medicare welcome exam Z00.00 [facility] [id number] [place] [address]- 7936 Aug, [facility] [id number] [place] [address] -[address] Aug, Hypogonadism in male E29.1 [facility] [address], [place] [address] Jul, [facility] [id number] [place] [address] 36885- 4797 Jul, Hypogonadism in male E29.1 [facility] [address], [place] [address] Jul, [facility] [address], [place] [address] Jul, Hypogonadism in male E29.1 [facility] [address], [place] [address] 9[address] Jul, Medicare welcome exam Z00.00 [facility] [address], [place] [address] 98[address] Jun, Medicare welcome exam Z00.00 [facility] [address], [place] [address] Jun, Fever R50.9 and Influenza B J10.1 [facility] [address], [place] [address] 9[address] Jun, Hypogonadism in male E29.1 [facility] [id number], [place] [address] 2546 Jun, Diabetes type 2, controlled E11.9 [facility] [id number], [place] [address] 2546 May, Hypogonadism in male E29.1 [facility] [address], [place] [address] 2546 May, intermediate (current) use of anticoagulants Z79.01 [facility] [id number], [place] [address] Apr, Hypogonadism in male E29.1 [facility] [id number], [place] [address] 74[address] Apr, [facility] [id number], [place] [address] 488[address] Apr, Medicare welcome exam Z00.00 and 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 [place] [address], [place] [address] 9[address] Apr, Hypogonadism in male E29.1 [place] [address], [place] [address] 9[address] Mar, Diabetes type 2, controlled E11.9 [facility] [address], [place] [address] 7991 Mar, Hypogonadism in male E29.1 [facility] [address], [place] [address] 5162 Mar, Hypogonadism in male E29.1 [facility] [address], [place] [address] 4[address] Feb, Hypogonadism in male E29.1 [facility] [address], [place] [address]- 24[address] Feb, Malaise R53.81 [facility] [id number] [place] [address] 31778- 0397 Feb, [facility] [id number] [place] [address] 70352- 6955 Feb, Diabetes type 2, controlled E11.9 [facility] [id number] [place] [address] 02842- 1699 Feb, Chronic fatigue R53.82 ; Malaise R53.81 and Moderate episode of recurrent major depressive disorder F33.1 [facility] [id number] [place] [address] 08591- 1188 Jan, Diabetes type 2, controlled E11.9 [facility] [id number] [place] [address] 77243- 4517 Jan, 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.01 and intermediate (current) use of anticoagulants Z79.01 [facility] [id number] [place] [address] 21587- 2968 Dec, Diabetes type 2, controlled E11.9 and Hypertriglyceridemia E78.1 [facility] [id number] [place] [address] 89981- 4309 Dec, Diabetes type 2, controlled E11.9 [facility] [id number] [place] [address] 80137- 9531 Dec, High risk medication use Z79.899 and intermediate (current) use of anticoagulants Z79.01 [facility] [id number] [place] [address] 85060- 7283 Dec, High risk medication use Z79.899 [facility] [id number] [place] [address] 85279- 9816 Nov, Diabetes type 2, controlled E11.9 [facility] [address] [place] [address]- 0261 Oct, Diabetes type 2, controlled E11.9 [facility] [address] [address]- 9896 September, Diabetes type 2, controlled E11.9 [facility] [id number] [place] [address] 19164- 2125 Aug, 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 [place] [address] [address]- 9132 Aug, Hematoma of arm, right, initial encounter S40.021A and 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 [place] [address] [address] [address]- 0177 Aug, [facility] [address] [address] Aug, Cellulitis of right upper extremity L03.113 [place] [address] 12139- 6748 Aug, Diabetes type 2, controlled E11.9 [facility] [id number] [place] [address] 79491- 0957 Aug, Hammertoe of right foot M20.41 ; Hallux abducto valgus, left M20.12 and Onychomycosis B35.1 [place] [id number] [place] [address] 30066- 9251 Aug, 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 [place] [id number] [place] [address] 43107- 8005 Aug, intermediate (current) use of anticoagulants Z79.01 [place] [id number] [place] [address] 84645- 7486 Aug, intermediate (current) use of anticoagulants Z79.01 [facility] [place] [id number] [place] [address] 87970 -5343 Aug, Right shoulder pain M25.511 and Closed nondisplaced fracture of acromial end of right clavicle, initial encounter S42.034A [facility] [address], [place] [address]- 0358 Jul, Diabetes type 2, controlled E11.9 [facility] [address], [place] [address]- 0839 Jun, Diabetes type 2, controlled E11.9 and intermediate (current) use of anticoagulants Z79.01 [facility] [address], [place] [address]- 3272 May, [facility] [id number] [place] [address] 65777- 1025 Apr, [facility] [id number] [place] [address] 78364- 4190 Mar, [facility] [address], [place] [address]- 1127 Feb, [facility] [id number] [place] [address] 62804- 0990 Dec, Diabetes type 2, controlled E11.9 [facility] [address], [place] [address]- 6575 Dec, [facility] [address], [place] [address]- 4680 Nov, [facility] [address], [place] [address]- 2874 Nov, Type 2 diabetes mellitus without complications E11.9 [facility] [id number] [place] [address] 65056- 5069 Oct, Type 2 diabetes mellitus without complications E11.9 [facility] [address], [place] [address]- 6632 Aug, [facility] [id number] [place] [address] 36633- 6424 Aug, Type 2 diabetes mellitus without complications E11.9 [place] [id number] [place] [address] 59114- 1794 Jun, Type 2 diabetes mellitus without complications E11.9 and 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 alf use of antiplatelet drug Z79.02 [place] [id number] [place] [address] 72577- 7016 May, [place] [id number] [place] [address] 48199- 1752 May, Diabetes type 2, controlled E11.9 [place] [id number] [place] [address] 08422- 6180 Apr, Diabetes type 2, controlled E11.9 [place] [id number] [place] [address] 72429- 3951 Mar, Diabetes type 2, controlled E11.9 ; Knee pain, right M25.561 ; Other chronic pain G89.29 and Medication monitoring encounter Z51.81 [place] [id number] [place] [address] 97070- 7678 Feb, Type 2 diabetes mellitus without complications E11.9 ; High risk medication use Z79.899 and Anxiety F41.9 [place] [id number] [place] [address] 47984- 2887 Jan, Diabetes 250.00 [place] [id number] [place] [address] 05983- 7427 Dec, Diabetes 250.00 [place] [id number] [place] [address] 06178- 3652 Nov, Diabetes 250.00 [place] [id number] [place] [address] 42049- 9634 Nov, [place] [id number] [place] [address] 31646- 3735 Oct, Diabetes mellitus type 1 250.01 and High risk medication use V58.69 [facility] [address] [id number] [place] [address]- 2940 Oct, [facility] [address] [id number] [place] [address]- 6292 September, [facility] [address] [id number] [place] [address]- 9383 Aug, [facility] [address] [id number] [place] [address]- 2156 Aug, [facility] [address] [id number] [place] [address]- 4398 Jul, [facility] [address] [id number] [place] [address]- 8953 Jul, [facility] [address] [facility] [id number] [place] [address]- 9075 Jun, [facility] [address] [facility] [id number], [place] [address]- 0342 Jun, [facility] [address] [id number] [place] [address]- 1850 Jun, [facility] [address] [facility] [id number], [place] [address]- 3733 May, [facility] [address] [id number], [place] [address]- 5508 May, [facility] [address] [id number], [place] [address]- 1553 Apr, [facility] [address] [id number] [place] [address]- 8605 Apr, [facility] [address] [id number] [place] [address]- 6885 Apr, [facility] [place] [facility] [address] [facility] [id number] [place] [address]- 7144 Apr, [facility] [address] [id number] [place] [address]- 1084 Apr, [facility] [place] [facility] [address] [id number] [place] [address]- 5819 Apr, [facility] [place] [facility] [address] [id number] [place] [address]- 3942 Feb, [facility] [place] [facility] [address] [id number] [place] [address]- 6864 Feb, [facility] [place] [facility] [address] [id number] [place] [address]- 0994 Feb, [facility] [place] [facility] [address] [id number] [place] [address]- 0384 Feb, [facility] [place] [facility] [address] [id number] [place] [address]- 1749 Dec, [facility] [place] [facility] [address] [id number] [place] [address]- 7388 Dec, [facility] [place] [facility] [address] [id number] [place] [address]- 8809 Nov, [facility] [place] [facility] [address] [id number] [place] [address]- 2607 Nov, [facility] [place] [facility] [address] [id number] [place] [address]- 8048 Oct, [facility] [place] [facility] [address] [id number] [place] [address]- 2441 Oct, [facility] [place] [facility] [address] [id number] [place] [address]- 2518 Oct, [facility] [place] [facility] [address] [id number] [place] [address]- 5589 Oct, [facility] [place] [facility] [address] [id number] [place] [address]- 3892 Oct, [facility] [place] [facility] [address] [id number] [place] [address]- 1686 Oct, [facility] [place] [facility] [address] [id number] [place] [address]- 3646 September, [facility] [place] [facility] [address] [id number] [place] [address]- 9689 September, [facility] [place] [facility] [address] [id number] [place] [address]- 5331 September, [facility] [place] [facility] [address] [id number] [place] [address]- 1646 September, [facility] [place] [facility] [address] [id number] [place] [address]- 7957 September, [facility] [place] [facility] [address] [id number] [place] [address]- 2189 September, [facility] [place] [facility] [address] [id number] [place] [address]- 7008 Aug, [facility] [place] [facility] [address] [id number] [place] [address]- 4293 Aug, [facility] [place] [facility] [address] [id number] [place] [address]- 6392 Aug, [facility] [place] [facility] [address] [id number] [place] [address]- 9919 Aug, [facility] [place] [facility] [address] [id number] [place] [address]- 5939 Aug, [facility] [place] [facility] [address] [id number] [place] [address]- 7590 Aug, [facility] [place] [facility] [address] [id number] [place] [address]- 7658 Jul, [facility] [place] [facility] [address] [id number] [place] [address]- 2721 Jul, [facility] [place] [facility] [address] [id number] [place] [address]- 5509 Jul, [facility] [place] [facility] [address] [id number] [place] [address]- 8591 Jul, [facility] [place] [facility] [address] [id number] [place] [address]- 0080 May, [facility] [place] [facility] [address] [id number] [place] [address]- 6223 May, [facility] [place] [facility] [address] [id number] [place] [address]- 1080 Apr, [facility] [place] [facility] [address] [id number] [place] [address]- 8457 Apr, [facility] [place] [facility] [address] [id number] [place] [address]- 4451 Apr, [facility] [place] [facility] [address] [id number] [place] [address]- 3340 Apr, [facility] [place] [facility] [address] [id number] [place] [address]- 2587 Apr, [facility] [place] [facility] [address] [id number], [place] [address]- 7854 Apr, [facility] [place] [facility] [address] [id number], [place] [address]- 7729 Feb, [facility] [place] [facility] [address] [id number], [place] [address]- 4528 Feb, [facility] [place] [facility] [address] [id number], [place] [address]- 5077 Feb, [facility] [place] [facility] [address] [id number], [place] [address]- 0605 Feb, [facility] [place] [facility] [address] [id number], [place] [address]- 0897 Feb, [facility] [place] [facility] [address] [id number], [place] [address]- 7664 Feb, [facility] [place] [facility] [address] [id number], [place] [address]- 2540 Feb, [facility] [place] [facility] [address] [id number] [place] [address]- 3646 Feb, [facility] [address] [id number] [place] [address]- 2121 Jan, [facility] [address] [id number] [place] [address]- 5785 Jan, [facility] [address] [id number] [place] [address]- 8418 Jan, [facility] [address] [id number] [place] [address]- 6861 Jan, [facility] [address] [id number] [place] [address]- 5459 Dec, [facility] [address] [id number] [place] [address]- 7021 Dec, [facility] [address] [id number] [place] [address]- 0742 Dec, [facility] [address] [id number] [place] [address]- 1080 Nov, [facility] [address] [id number] [place] [address]- 7216 Nov, [facility] [address] [id number] [place] [address]- 9671 Oct, [facility] [address] [id number] [place] [address]- 3155 September, [facility] [address] [id number] [place] [address]- 0490 September, [facility] [address] [id number] [place] [address]- 3715 September, [facility] [address] [id number] [place] [address]- 8180 Aug, [facility] [address] [id number] [place] [address] Aug, [facility] [address] [id number] [place] [address] 15 Aug, 2012 [facility] [address] [id number] [place] [address] 26 Jul, 2012 [facility] [address] [id number] [place] [address] Jul, [facility] [place] [facility] [address] [id number] [place] [address] Jun, [facility] [address] [id number] [place] [address] Jun, [facility] [place] [facility] [address] [id number] [place] [address] Jun, [facility] [address] [id number] [place] [address] Jun, [facility] [address] [id number] [place] [address] May, [facility] [address] [id number] [place] [address] May, [facility] [address] [id number] [place] [address] Apr, [facility] [place] [facility] [address] [id number] [place] [address] Apr, [facility] [place] [facility] [address] [id number], [place] [address] Apr, [facility] [place] [facility] [address] [id number] [place] [address] Apr, [facility] [place] [facility] [address] [id number] [place] [address] Apr, [facility] [place] [facility] [address] [id number] [place] [address] Apr, [facility] [place] [facility] [address] [id number] [place] [address] Mar, [facility] [place] [facility] [address] [id number] [place] [address] Mar, [facility] [place] [facility] [address] [id number] [place] [address] Mar, [facility] [place] [facility] [address] [id number] [place] [address] Mar, [facility] [place] [facility] [address] [id number] [place] [address] Mar, [facility] [place] [facility] [address] [id number] [place] [address] Mar, [facility] [place] [facility] [address] [id number] [place] [address] Feb, [facility] [place] [facility] [address] [id number] [place] [address] Feb, [facility] [place] [facility] [address] [id number] [place] [address] Feb, [facility] [place] [facility] [address] [id number] [place] [address] Feb, [facility] [place] [facility] [address] [facility] [id number] [place] [address] Feb, [facility] [place] [facility] [address] [id number] [place] [address] Jan, [facility] [place] [facility] [address] [id number] [place] [address] Jan, [facility] [place] [facility] [address] [id number] [place] [address] Jan, [facility] [place] [facility] [address] [facility] [id number] [place] [address] Dec, [facility] [place] [facility] [address] [facility] [id number] [place] [address] Dec, [facility] [place] [facility] [address] [id number] [place] [address] Nov, [facility] [place] [facility] [address] [id number] [place] [address] Oct, [facility] [place] [facility] [address] [id number] [place] [address] Oct, [facility] [place] [facility] [address] [id number] [place] [address] Oct, [facility] [place] [facility] [address] [id number] [place] [address] Oct, [facility] [place] [facility] [address] [id number] [place] [address] Oct, [facility] [place] [facility] [address] [id number] [place] [address] September, [facility] [place] [facility] [address] [id number] [place] [address] 18 Aug, 2011 [facility] [place] [facility] [address] [id number] [place] [address] 18 Aug, 2011 [facility] [place] [facility] [address] [id number] [place] [address] 17 Aug, 2011 [facility] [place] [facility] [address] [id number] [place] [address] 16 Aug, 2011 [facility] [place] [facility] [address] [id number] [place] [address] 13 Aug, 2011 [facility] [place] [facility] [address] [id number] [place] [address] 11 Aug, 2011 [facility] [place] [facility] [address] [id number] [place] [address] 11 Aug, 2011 [facility] [place] [facility] [address] [id number] [place] [address] 05 Aug, 2011 [facility] [place] [facility] [address] [id number] [place] [address] 05 Aug, 2011 [facility] [address] [id number] [place] [address] 9434 20 Jul, 2011 [facility] [place] [facility] [address] [id number] [place] [address] 9666 20 Jul, 2011 [facility] [place] [facility] [address] [id number] [place] [address] 86[address] 20 Jul, 2011 [facility] [place] [facility] [address] [id number] [place] [address] 17 Jul, 2011 [facility] [place] [facility] [address] [id number] [place] [address]47 08 Jul, 2011 [facility] [place] [facility] [address] [id number] [place] [address] 4736 15 Jun, 2011 [facility] [place] [facility] [address] [id number] [place] [address] 6796 14 Jun, 2011 [facility] [place] [facility] [address] [id number] [place] [address]139 08 Jun, 2011 [facility] [place] [facility] [address] [id number] [place] [address] 6477 08 Jun, 2011 [facility] [place] [facility] [address] [id number] [place] [address] 4396 May, [facility] [place] [facility] [address] [id number] [place] [address] May, [facility] [place] [facility] [address] [id number] [place] [address]37 May, [facility] [place] [facility] [address] [id number] [place] [address] 4439 May, [facility] [place] [facility] [address] [id number] [place] [address] 2786 06 May, 2011 [facility] [place] [facility] [address] [id number] [place] [address] 3046 May, [facility] [place] [facility] [address] [id number] [place] [address] 2546 May, [facility] [address] [id number] [place] [address] 288[address] Apr, [facility] [place] [facility] [address] [id number] [place] [address] 0726 13 Apr, 2011 [facility] [address] [id number] [place] [address] 0326 Apr, [facility] [place] [facility] [address] [id number] [place] [address] 2459 Apr, [facility] [address] [id number] [place] [address]116 Apr, [facility] [address] [id number] [place] [address] 5524 Apr, [facility] [address] [id number] [place] [address] 8623 Apr, [facility] [address] [id number] [place] [address] 4[address] Apr, [facility] [address] [id number] [place] [address] 3494 Apr, [facility] [address] [id number] [place] [address] 9[address] Apr, [facility] [place] [facility] [address] [id number] [place] [address] 6526 Mar, [facility] [place] [facility] [address] [id number] [place] [address] 2546 Mar, [facility] [place] [facility] [address] [id number] [place] [address] 2546 Feb, [facility] [place] [facility] [address] [id number] [place] [address] 2546 Jun, [facility] [place] [facility] [address] [id number] [place] [address] 25[address] Apr, [facility] [id number] [place] [address] Feb, [facility] [id number] [address] Feb, [facility] [id number] [place] [address] Feb, [facility] [id number] [place] [address]- [address] Apr, [facility] [id number] [place] [address]- [address] Apr, [facility] [id number] [place] [address]- 7700 Mar, [facility] [id number] [place] [address]- 6414 Mar, [facility] [id number] [place] [address]- [address] Mar, [facility] [id number] [address] Feb, [facility] [id number] [address] Feb, [facility] [id number] [place] [address] Feb, [facility] [id number] [place] [address] Jan, IMMUNIZATIONS Vaccine Route Administration Date Status TESTOSTERONE (PT'S OWN) IM Intramuscular November 14, 2017 Administered SOCIAL HISTORY Never Assessed REASON FOR VISIT [facility] -[facility] gleason PLAN OF CARE VITAL SIGNS Height 69 in 2017-11-14 Weight 247.1 lbs 2017-11-14 Temperature 97.6 degrees Fahrenheit 2017-11-14 Heart Rate 72 bpm 2017-11-14 Respiratory Rate 20 2017-11-14 BMI 36.49 kg/m2 2017-11-14 Blood pressure systolic 104 mmHg 2017-11-14 Blood pressure diastolic 74 mmHg 2017-11-14 MEDICATIONS Medication Instructions Dosage Frequency Start Date End Date Duration Status Clonidine HCl 0.2 MG 1 tablet 12h 90 Active Depo-Testosterone 100 MG/ML Intramuscular 2 times a month 1 ml Feb, 140 days Active Enalapril Maleate 5 mg 1 tablet 12h Active Amlodipine Besylate 10 MG TAKE 1 TABLET ONE TIME DAILY (APPOINTMENT NEEDED FOR FURTHER REFILLS) 90 Active Clonazepam 1 MG Orally 3 times a day 1 tablet 8h Jun, 28 days Active [place] 5-325 MG Orally every 6 hrs 1 tablet 6h Nov, 28 days Active Metformin HCl 500 mg Orally Once a day at hs 2 tablet Not-Taking Actos 30 MG Orally Once a day 1 tablet 24h Active Blood Glucose Test Strip Test Strips as directed Nov, Active Topamax 50 mg 1 tablet 12h 90 Active Lovastatin 20 mg 1 tablet with a meal 24h Active Warfarin Sodium 6 MG TAKE 1 TABLET EVERY DAY 90 Active Carvedilol 3.125 MG Orally 2 times a day 1 tablet 12h Not-Taking Metformin HCl 500 mg Orally 2 times a day 3 tablets 12h Active Potassium Chloride Pati ER 10 MEQ 1 tablet with food 24h Active Metoprolol Succinate ER 50 mg Orally Once a day 1/2 tablet (25 mg) 24h Active Paroxetine HCl 40 MG TAKE 1 TABLET ONE TIME DAILY IN THE MORNING 90 Active Aspirin 81 MG Orally Once a day 1 tablet 24h Not-Taking RESULTS No Results PROCEDURES Procedure Date Ordered Result Body Site [facility] VISIT ESTABLISHED PATIENT November 14, 2017 THER/PROPH/DIAG INJ, SC/IM November 14, 2017 TESTOSTERONE (PT'S OWN) November 14, 2017 INSTRUCTIONS MEDICATIONS ADMINISTERED No Known Medications [...]
--- OUTSIDE RECORDS SUMMARY | 2018-04-28 05:24 | XMS REPORT ---
Author Author MARLEY MCGRATH Organization [facility] Address [address] [place] [address] Care Team Providers Care Pediatric Dermatologist Name Role Phone MARLEY MCGRATH Unavailable PROBLEMS Type Condition ICD9-CM Code SPB25-NS Code Onset Dates Condition Status SNOMED Code Problem Hammertoe of right foot M20.41 Active 764911379 Problem Moderate episode of recurrent major depressive disorder F33.1 Active 256567517 Problem Hypertriglyceridemia E78.1 Active 057086719 Problem Other chronic pain G89.29 Active 88030944 Problem Memory loss R41.3 Active 298741663 Problem 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.01 Active 1751691 Problem Chronic fatigue R53.82 Active 74253815 Problem Controlled type 2 diabetes mellitus without complication, without long -term current use of insulin E11.9 Active 318747469 Problem Chronic major depressive disorder, recurrent episode F33.9 Active 08031519 Problem Knee pain, right M25.561 Active 21377937 Problem Diabetes type 2, controlled E11.9 Active 88719241 Problem Type 2 diabetes mellitus without complications E11.9 Active 788725757 Problem Hypogonadism in male E29.1 Active 19485995 Problem senior care (current) use of anticoagulants Z79.01 Active 541764324 ALLERGIES No Information ENCOUNTERS Encounter Location Date Diagnosis [facility] [id number] [address] Dec, Hypogonadism in male E29.1 [facility] [id number], [place] [address] Dec, Medicare welcome exam Z00.00 [facility] [id number] [address] Dec, Hypogonadism in male E29.1 [facility] [id number] [address] Dec, [facility] [address], [place] [address] Nov, Hypogonadism in male E29.1 [facility] [address], [place] [address] Nov, Type 2 diabetes mellitus without complications E11.9 and History of Coumadin therapy Z92.29 [facility] [address] [address] 2546 Nov, Medicare welcome exam Z00.00 [facility] [address], [place] [address] Nov, Type 2 diabetes mellitus without complications E11.9 ; History of Coumadin therapy Z92.29 and Hypogonadism in male E29.1 [facility] [address], [place] [address] Nov, [facility] [address], [place] [address] Oct, [facility] [address], [place] [address] Oct, Diabetes type 2, controlled E11.9 [facility] [address], [place] [address] 40[address] Oct, Medicare welcome exam Z00.00 [facility] [address], [place] [address] Oct, Hypogonadism in male E29.1 [facility] [id number], [place] [address] Oct, [facility] [address], [place] [address] September, Hypogonadism in male E29.1 [facility] [address], [place] [address] September, Medicare welcome exam Z00.00 [facility] [id number] [address] September, Hypogonadism in male E29.1 [facility] [id number] [place] [address]- 1962 Aug, Other chronic pain G89.29 ; Memory loss R41.3 ; Controlled type 2 diabetes mellitus without complication, without long-term current use of insulin E11.9 and Chronic major depressive disorder, recurrent episode F33.9 [facility] [id number] [place] [address] 39996- 0201 Aug, Medicare welcome exam Z00.00 [facility] [facility] [id number] [place] [address] 19466- 6140 Aug, [facility] [id number] [place] [address] -1164 Aug, Hypogonadism in male E29.1 [facility] [id number] [place] [address] 85761- 4977 Jul, [facility] [id number] [place] [address] 50149- 3712 Jul, Hypogonadism in male E29.1 [facility] [id number] [place] [address] 48534- 9581 Jul, [facility] [id number] [place] [address] 15364 -6887 Jul, Hypogonadism in male E29.1 [facility] [id number] [place] [address] 16807- 1832 Jul, Medicare welcome exam Z00.00 [facility] [id number] [place] [address] 63591- 0576 Jun, Medicare welcome exam Z00.00 [facility] [id number] [place] [address] -4153 Jun, Fever R50.9 and Influenza B J10.1 [facility] [address], [place] [address] 27[address] Jun, Hypogonadism in male E29.1 [facility] [address], [place] [address] 4706 Jun, Diabetes type 2, controlled E11.9 [facility] [address], [place] [address] 1606 May, Hypogonadism in male E29.1 [facility] [address], [place] [address] 2545 May, senior care (current) use of anticoagulants Z79.01 [facility] [id number], [place] [address] 2546 Apr, Hypogonadism in male E29.1 [facility] [address], [place] [address]- 4[address] Apr, [facility] [address], [place] [address]- 1077 Apr, Medicare welcome exam Z00.00 and senior care (current) use of anticoagulants Z79.01 [facility] [address], [place] [address]- 0206 Apr, Hypogonadism in male E29.1 [facility] [address], [place] [address] 3846 Mar, Diabetes type 2, controlled E11.9 [facility] [address], [place] [address] 6732 Mar, Hypogonadism in male E29.1 [facility] [address], [place] [address] 4196 Mar, Hypogonadism in male E29.1 [facility] [address] [address] Feb, Hypogonadism in male E29.1 [facility] [id number], [place] [address] 5823 Feb, Malaise R53.81 [facility] [id number] [place] [address] 26465- 4144 Feb, [facility] [id number] [place] [address] 28236- 2370 Feb, Diabetes type 2, controlled E11.9 [facility] [id number] [place] [address] 73888- 3135 Feb, Chronic fatigue R53.82 ; Malaise R53.81 and Moderate episode of recurrent major depressive disorder F33.1 [facility] [facility] [id number] [place] [address] 25566- 5898 Jan, Diabetes type 2, controlled E11.9 [facility] [id number] [place] [address] 12364- 6155 Jan, 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.01 and senior care (current) use of anticoagulants Z79.01 [facility] [id number] [place] [address] 74802- 0421 Dec, Diabetes type 2, controlled E11.9 and Hypertriglyceridemia E78.1 [facility] [id number] [place] [address] 29037- 8798 Dec, Diabetes type 2, controlled E11.9 [facility] [id number] [place] [address] 21875- 7664 Dec, High risk medication use Z79.899 and 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 [place] [id number] [place] [address] 70479- 0552 Dec, High risk medication use Z79.899 [facility] [facility] [id number] [place] [address] 72332- 4766 Nov, Diabetes type 2, controlled E11.9 [facility] [id number] [place] [address] 80718- 1473 Oct, Diabetes type 2, controlled E11.9 [facility] [address] [address]- [address]201 September, Diabetes type 2, controlled E11.9 [address] [address] 8[address]- 4850 Aug, 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 [address] [address] 24533- 9113 Aug, Hematoma of arm, right, initial encounter S40.021A and senior care (current) use of anticoagulants Z79.01 [address] [address] 32539- 2637 Aug, [facility] [place] [address] [address] Aug, Cellulitis of right upper extremity L03.113 [address] [address] 07437- 8247 Aug, Diabetes type 2, controlled E11.9 [place] [address] 82029- 1657 Aug, Hammertoe of right foot M20.41 ; Hallux abducto valgus, left M20.12 and Onychomycosis B35.1 [place] [address] 40426- 5935 Aug, 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 [address] [address] 70113- 7849 Aug, 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 [place] [address] 26520- 4315 Aug, senior care (current) use of anticoagulants Z79.01 [facility] [address] 8[address] -[address] 03 Apr, 2017 Right shoulder pain M25.511 and Closed nondisplaced fracture of acromial end of right clavicle, initial encounter S42.034A [facility] [id number] [place] [address] 59784- 1237 Jul, Diabetes type 2, controlled E11.9 [facility] [address], [place] [address]- 2506 Jun, Diabetes type 2, controlled E11.9 and 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 [facility] [id number], [place] [address]- 6708 May, [facility] [id number] [place] [address] 50399- 5183 Apr, [facility] [id number] [place] [address] 01059- 2492 Mar, [facility] [id number] [place] [address] 77069- 0681 Feb, [facility] [id number] [place] [address] 01343- 0363 Dec, Diabetes type 2, controlled E11.9 [facility] [address], [place] [address]- 7727 Dec, [facility] [address], [place] [address]- 0814 Nov, [facility] [address], [place] [address]- 8702 Nov, Type 2 diabetes mellitus without complications E11.9 [facility] [address], [place] [address]- 2646 Oct, Type 2 diabetes mellitus without complications E11.9 [facility] [address], [place] [address]- 7503 Aug, [facility] [address], [place] [address]- 8806 Aug, Type 2 diabetes mellitus without complications E11.9 [address] [address], [place] [address]- 5666 Jun, Type 2 diabetes mellitus without complications E11.9 and 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 [place] [facility] [id number], [place] [address]- 4203 May, [place] [id number] [place] [address] 30149- 8477 May, Diabetes type 2, controlled E11.9 [place] [facility] [id number] [place] [address] 24459- 9813 Apr, Diabetes type 2, controlled E11.9 [place] [facility] [id number] [place] [address] 30283- 5820 Mar, Diabetes type 2, controlled E11.9 ; Knee pain, right M25.561 ; Other chronic pain G89.29 and Medication monitoring encounter Z51.81 [place] [id number] [place] [address] 37666- 9031 Feb, Type 2 diabetes mellitus without complications E11.9 ; High risk medication use Z79.899 and Anxiety F41.9 [place] [id number] [place] [address] 05451- 4417 Jan, Diabetes 250.00 [place] [id number] [place] [address] 51665- 0613 Dec, Diabetes 250.00 [place] [id number] [place] [address] 63595- 2549 Nov, Diabetes 250.00 [place] [facility] [id number] [place] [address] 38712- 2004 Nov, [place] [id number] [place] [address] 35408- 7245 Oct, Diabetes mellitus type 1 250.01 and High risk medication use V58.69 [place] [id number] [place] [address], [place] [address]- 2344 Oct, [facility] [place] [facility] [address] [id number] [place] [address]- 3744 September, [facility] [place] [facility] [address] [id number] [place] [address]- 5571 Aug, [facility] [place] [facility] [address] [id number] [place] [address]- 5640 Aug, [facility] [place] [facility] [address] [id number] [place] [address]- 0274 Jul, [facility] [place] [facility] [address] [id number] [place] [address]- 1571 Jul, [facility] [place] [facility] [address] [id number] [place] [address]- 2386 Jun, [facility] [place] [facility] [address] [id number] [place] [address]- 9981 Jun, [facility] [place] [facility] [address] [id number] [place] [address]- 6976 Jun, [facility] [place] [facility] [address] [id number] [place] [address]- 1353 May, [facility] [place] [facility] [address] [id number] [place] [address]- 6794 May, [facility] [place] [facility] [address] [id number] [place] [address]- 0156 Apr, [facility] [place] [facility] [address] [id number] [place] [address]- 5597 Apr, [facility] [place] [facility] [address] [id number] [place] 2731 Apr, [facility] [place] [facility] [address] [id number] [place] [address]- 4246 Apr, [facility] [place] [facility] [address] [id number] [place] 2672 Apr, [facility] [place] [facility] [address] [id number] [place] [address]- 6139 Apr, [facility] [place] [facility] [address] [id number] [place] [address]- 9013 Feb, [facility] [place] [facility] [address] [id number] [place] 5300 Feb, [facility] [place] [facility] [address] [id number] [place] [address]- 4164 Feb, [facility] [place] [facility] [address] [id number] [place] [address]- 7772 Feb, [facility] [place] [facility] [address] [id number] [place] [address]- 1479 Dec, [facility] [place] [facility] [address] [id number] [place] [address]- 1380 Dec, [facility] [place] [facility] [address] [id number] [place] [address]- 3670 Nov, [facility] [place] [facility] [address] [id number] [place] [address]- 7145 Nov, [facility] [place] [facility] [address] [id number] [place] [address]- 8361 Oct, [facility] [place] [facility] [address] [id number] [place] [address]- 8885 Oct, [facility] [place] [facility] [address] [id number] [place] [address]- 6054 Oct, [facility] [place] [facility] [address] [id number] [place] [address]- 0364 Oct, [facility] [place] [facility] [address] [id number] [place] [address]- 3752 Oct, [facility] [place] [facility] [address] [id number] [place] [address]- 7385 Oct, [facility] [place] [facility] [address] [id number] [place] [address]- 5459 September, [facility] [place] [facility] [address] [id number] [place] [address]- 2868 September, [facility] [place] [facility] [address] [id number] [place] 6719 September, [facility] [place] [facility] [address] [id number] [place] [address]- 7815 September, [facility] [place] [facility] [address] [id number] [place] [address]- 5879 September, [facility] [place] [facility] [address] [id number] [place] [address]- 0008 September, [facility] [place] [facility] [address] [id number] [place] [address]- 7219 Aug, [facility] [place] [facility] [address] [id number] [place] [address]- 9184 Aug, [facility] [place] [facility] [address] [id number] [place] [address]- 3928 Aug, [facility] [place] [facility] [address] [id number] [place] [address]- 7810 Aug, [facility] [place] [facility] [address] [id number] [place] [address]- 9456 Aug, [facility] [place] [facility] [address] [id number] [place] [address]- 1402 Aug, [facility] [place] [facility] [address] [id number] [place] [address]- 1721 Jul, [facility] [place] [facility] [address] [id number] [place] [address]- 3622 Jul, [facility] [place] [facility] [address] [id number] [place] [address]- 5633 Jul, [facility] [place] [facility] [address] [id number] [place] [address]- 9276 Jul, [facility] [place] [facility] [address] [id number] [place] [address]- 8618 May, [facility] [address] [id number] [place] [address]- 2125 May, [facility] [address] [id number] [place] [address]- 4907 Apr, [facility] [address] [id number] [place] [address]- 9545 Apr, [facility] [address] [id number] [place] [address]- 3278 Apr, [facility] [address] [id number] [place] [address]- 5288 Apr, [facility] [address] [id number] [place] [address]- 4202 Apr, [facility] [address] [id number] [place] [address]- 1452 Apr, [facility] [address] [id number] [place] [address]- 3274 Feb, [facility] [address] [id number] [place] [address]- 9744 Feb, [facility] [address] [id number] [place] [address]- 2011 Feb, [facility] [place] [facility] [address] [id number] [place] [address]- 2547 Feb, [facility] [address] [id number] [place] [address]- 6038 Feb, [facility] [place] [facility] [address] [id number] [place] [address]- 6004 Feb, [facility] [place] [facility] [address] [id number] [place] [address]- 2546 Feb, [facility] [place] [facility] [address] [id number] [place] [address]- 9131 Feb, [facility] [address] [id number] [place] [address]- 4782 Jan, [facility] [place] [facility] [address] [id number] [place] [address]- 0258 Jan, [facility] [place] [facility] [address] [id number] [place] [address]- 0372 Jan, [facility] [place] [facility] [address] [id number] [place] [address]- 6318 Jan, [facility] [place] [facility] [address] [id number] [place] [address]- 8119 Dec, [facility] [place] [facility] [address] [id number] [place] [address]- 6165 Dec, [facility] [place] [facility] [address] [id number] [place] [address]- 3819 Dec, [facility] [place] [facility] [address] [id number] [place] [address]- 8506 Nov, [facility] [place] [facility] [address] [id number] [place] [address]- 4153 Nov, [facility] [place] [facility] [address] [id number] [place] [address]- 8844 Oct, [facility] [place] [facility] [address] [id number] [place] [address]- 8463 September, [facility] [place] [facility] [address] [id number] [place] [address]- 1100 September, [facility] [place] [facility] [address] [id number] [place] [address]- 3914 September, [facility] [place] [facility] [address] [id number] [place] [address]- 0304 Aug, [facility] [place] [facility] [address] [id number] [place] [address]- 9009 Aug, [facility] [place] [facility] [address] [id number] [place] [address]- 1861 15 Aug, 2012 [facility] [address] [id number] [place] [address]- 5396 Jul, [facility] [place] [facility] [address] [id number] [place] [address]- 7376 Jul, [facility] [address] [id number] [place] [address]- 2216 Jun, [facility] [place] [facility] [address] [id number] [place] [address]- 0746 Jun, [facility] [address] [id number] [place] [address]- 8936 Jun, [facility] [address] [id number] [place] [address]- 7376 Jun, [facility] [address] [id number] [place] [address]- 9763 May, [facility] [address] [id number] [place] [address]- 9003 May, [facility] [address] [id number] [place] [address] Apr, [facility] [address] [id number] [place] [address] Apr, [facility] [address] [id number] [place] [address] Apr, [facility] [place] [facility] [address] [id number] [place] [address] Apr, [facility] [place] [facility] [address] [id number] [place] [address] Apr, [facility] [place] [facility] [address] [id number] [place] [address] Apr, [facility] [place] [facility] [address] [id number] [place] [address] Mar, [facility] [place] [facility] [address] [id number] [place] [address] Mar, [facility] [place] [facility] [address] [id number] [place] [address] Mar, [facility] [place] [facility] [address] [id number] [place] [address] Mar, [facility] [place] [facility] [address] [id number] [place] [address] Mar, [facility] [place] [facility] [address] [id number] [place] [address] Mar, [facility] [place] [facility] [address] [id number] [place] [address] Feb, [facility] [place] [facility] [address] [id number] [place] [address] Feb, [facility] [place] [facility] [address] [id number] [place] [address] Feb, [facility] [place] [facility] [address] [id number] [place] [address] Feb, [facility] [place] [facility] [address] [id number] [place] [address] Feb, [facility] [place] [facility] [address] [id number] [place] [address] Jan, [facility] [place] [facility] [address] [id number] [place] [address] Jan, [facility] [place] [facility] [address] [id number] [place] [address] Jan, [facility] [place] [facility] [address] [id number] [place] [address] Dec, [facility] [place] [facility] [address] [id number] [place] [address] Dec, [facility] [place] [facility] [address] [id number] [place] [address] Nov, [facility] [place] [facility] [address] [id number] [place] [address] Oct, [facility] [place] [facility] [address] [id number] [place] [address] Oct, [facility] [place] [facility] [address] [id number] [place] [address] Oct, [facility] [place] [facility] [address] [id number] [place] [address] Oct, [facility] [place] [facility] [address] [id number] [place] [address]- [address] Oct, [facility] [place] [facility] [address] [id number] [place] [address] September, [facility] [place] [facility] [address] [id number] [place] [address] Aug, [facility] [place] [facility] [address] [id number] [place] [address] 18 Aug, 2011 [facility] [place] [facility] [address] [id number] [place] [address] 17 Aug, 2011 [facility] [place] [facility] [address] [id number] [place] [address] 16 Aug, 2011 [facility] [place] [facility] [address] [id number] [place] [address] 13 Aug, 2011 [facility] [place] [facility] [address] [id number] [place] [address] 11 Aug, 2011 [facility] [place] [facility] [address] [id number] [place] [address] 11 Aug, 2011 [facility] [place] [facility] [address] [id number] [place] [address] 05 Aug, 2011 [facility] [place] [facility] [address] [id number] [place] [address] 05 Aug, 2011 [facility] [place] [facility] [address] [id number] [place] [address] 20 Jul, 2011 [facility] [address] [id number] [place] [address] 20 Jul, 2011 [facility] [place] [facility] [address] [id number] [place] [address] 20 Jul, 2011 [facility] [address] [id number] [place] [address] 17 Jul, 2011 [facility] [place] [facility] [address] [id number] [place] [address] 08 Jul, 2011 [facility] [address] [id number] [place] [address] 15 Jun, 2011 [facility] [place] [facility] [address] [id number] [place] [address] 14 Jun, 2011 [facility] [place] [facility] [address] [id number] [place] [address] 08 Jun, 2011 [facility] [address] [id number] [place] [address] 08 Jun, 2011 [facility] [address] [id number] [place] [address] 19 May, 2011 [facility] [address] [id number] [place] [address] 13 May, 2011 [facility] [address] [id number] [place] [address] 10 May, 2011 [facility] [place] [facility] [address] [id number] [place] [address] 08 May, 2011 [facility] [place] [facility] [address] [id number] [place] [address] 06 May, 2011 [facility] [place] [facility] [address] [id number] [place] [address] 04 May, 2011 [facility] [place] [facility] [address] [id number] [place] [address] May, [facility] [address] [id number] [place] [address] Apr, [facility] [place] [facility] [address] [id number] [place] [address] Apr, [facility] [place] [facility] [address] [id number] [place] [address] Apr, [facility] [place] [facility] [address] [id number] [place] [address] Apr, [facility] [place] [facility] [address] [id number] [place] [address] Apr, [facility] [place] [facility] [address] [id number] [place] [address] Apr, [facility] [place] [facility] [address] [id number] [place] [address] Apr, [facility] [place] [facility] [address] [id number] [place] [address] Apr, [facility] [place] [facility] [address] [id number] [place] [address] Apr, [facility] [place] [facility] [address] [id number] [place] [address] Apr, [facility] [place] [facility] [address] [id number], [place] [address] Mar, [facility] [place] [facility] [address] [id number], [place] [address] Mar, [facility] [place] [facility] [address] [id number] [place] [address] Feb, [facility] [place] [facility] [address] [id number], [place] [address] 16 Jun, 2010 [facility] [place] [facility] [address] [id number], [place] [address] Apr, [facility] [place] [facility] [address], [place] [address] Feb, [facility] [id number], [place] [address] Feb, [facility] [id number], [place] [address] Feb, [facility] [id number], [place] [address] Apr, [facility] [id number], [place] [address] Apr, [facility] [id number] [place] [address] Mar, [facility] [id number], [place] [address] Mar, [facility] [id number] [place] [address] Mar, [facility] [address], [place] [address] Feb, [facility] [id number], [place] [address] Feb, [facility] [id number], [place] [address] Feb, [facility] [id number], [place] [address] Jan, IMMUNIZATIONS No Known Immunizations SOCIAL HISTORY Never Assessed REASON FOR VISIT TCM Phone Call/Med Rec , TCM - Phone Call PLAN OF CARE VITAL SIGNS MEDICATIONS Medication Instructions Dosage Frequency Start Date End Date Duration Status Topamax 50 mg 1 tablet 12h 90 Active Depo-Testosterone 100 MG/ML Intramuscular 2 times a month 1 ml Feb, 140 days Active Enalapril Maleate 5 mg 1 tablet 12h Active Potassium Chloride Pati ER 10 MEQ 1 tablet with food 24h Active Blood Glucose Test Strip Test Strips as directed Nov, Active Warfarin Sodium 6 MG TAKE 1 TABLET EVERY DAY 90 Active Carvedilol 3.125 MG Orally 2 times a day 1 tablet 12h Not-Taking Aspirin 81 MG Orally Once a day 1 tablet 24h Not-Taking Clonidine HCl 0.2 MG 1 tablet 12h 90 Active [place] 5-325 MG Orally every 6 hrs 1 tablet 6h 15 Oct, 2017 28 days Active Clonazepam 1 MG Orally 3 times a day 1 tablet 8h 24 Jun, 2014 28 days Active Paroxetine HCl 40 MG TAKE 1 TABLET ONE TIME DAILY IN THE MORNING 90 Active Actos 30 MG Orally Once a day 1 tablet 24h Active Lovastatin 20 mg 1 tablet with a meal 24h Active Metformin HCl 500 mg 1 tablet 24h Active Metformin HCl 500 mg Orally Once a day at hs 2 tablet Active Amlodipine Besylate 10 MG TAKE 1 TABLET ONE TIME DAILY (APPOINTMENT NEEDED FOR FURTHER REFILLS) 90 Active Metoprolol Succinate ER 50 mg Orally Once a day 1/2 tablet (25 mg) 24h Active RESULTS No Results PROCEDURES No Known [...]
--- OUTSIDE RECORDS SUMMARY | 2018-04-28 05:25 | XMS REPORT ---
Author Author MARLEY MCGRATH Organization [facility] Address [address] [place] [address] Care Team Providers Care Senior Process Engineer Name Role Phone MARLEY MCGRATH Unavailable PROBLEMS Type Condition ICD9-CM Code HRC84-CK Code Onset Dates Condition Status SNOMED Code Problem Hammertoe of right foot M20.41 Active 332019658 Problem Moderate episode of recurrent major depressive disorder F33.1 Active 404149573 Problem Hypertriglyceridemia E78.1 Active 648254416 Problem Other chronic pain G89.29 Active 72138665 Problem Memory loss R41.3 Active 611669080 Problem 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.01 Active 5400602 Problem Chronic fatigue R53.82 Active 08570043 Problem Controlled type 2 diabetes mellitus without complication, without long -term current use of insulin E11.9 Active 198821272 Problem Chronic major depressive disorder, recurrent episode F33.9 Active 13250666 Problem Knee pain, right M25.561 Active 16871327 Problem Diabetes type 2, controlled E11.9 Active 40277256 Problem Type 2 diabetes mellitus without complications E11.9 Active 979141898 Problem Hypogonadism in male E29.1 Active 73500510 Problem skilled nursing (current) use of anticoagulants Z79.01 Active [id number] ALLERGIES No Information ENCOUNTERS Encounter Location Date Diagnosis [facility] [id number] [address] Dec, Hypogonadism in male E29.1 [facility] [id number] [address] Dec, [facility] [id number] [address] Nov, Hypogonadism in male E29.1 [facility] [id number] [address] Nov, Type 2 diabetes mellitus without complications E11.9 and History of Coumadin therapy Z92.29 [facility] [address] [facility] [id number] [place] [address] 2546 18 Nov, 2017 Medicare welcome exam Z00.00 [facility] [address] [facility] [id number] [address] 2546 Nov, Type 2 diabetes mellitus without complications E11.9 ; History of Coumadin therapy Z92.29 and Hypogonadism in male E29.1 [facility] [address] [facility] [id number] [place] [address] 2546 Nov, [facility] [address] [facility] [id number] [place] [address] 4106 Oct, [facility] [address] [facility] [id number] [place] [address] 2546 Oct, Diabetes type 2, controlled E11.9 [facility] [address] [facility] [id number] [address] 2546 Oct, Medicare welcome exam Z00.00 [facility] [address] [facility] [id number] [place] [address] 2546 Oct, Hypogonadism in male E29.1 [facility] [address] [facility] [id number] [place] [address] Oct, [facility] [address] [facility] [id number][place] [address] September, Hypogonadism in male E29.1 [facility] [address] [facility] [id number] [address] September, Medicare welcome exam Z00.00 [facility] [address] [facility] [id number][place] [address] September, Hypogonadism in male E29.1 [facility] [address] [facility] [id number], [place] [address] Aug, Other chronic pain G89.29 ; Memory loss R41.3 ; Controlled type 2 diabetes mellitus without complication, without long-term current use of insulin E11.9 and Chronic major depressive disorder, recurrent episode F33.9 [facility] [id number] [place] [address]- 6427 11 Aug, 2017 Medicare welcome exam Z00.00 [facility] [address] [address] 09 Aug, 2017 [facility] [id number] [place] [address] Aug, Hypogonadism in male E29.1 [facility] [id number] [place] [address] 82127- 2694 Jul, [facility] [id number] [place] [address] 34149- 2565 Jul, Hypogonadism in male E29.1 [facility] [id number] [place] [address] 26120- 4798 Jul, [facility] [id number] [place] [address] 79463 -7579 Jul, Hypogonadism in male E29.1 [facility] [id number] [place] [address] 04139- 5535 Jul, Medicare welcome exam Z00.00 [facility] [address] [address] 1687 22 Jun, 2017 Medicare welcome exam Z00.00 [facility] [address] [address] 19 Jun, 2017 Fever R50.9 and Influenza B J10.1 [facility] [address] [id number] [address] 7962 13 Jun, 2017 Hypogonadism in male E29.1 [facility] [address] [address]- 3756 09 Jun, 2017 Diabetes type 2, controlled E11.9 [facility] [address] [address] 7[address] May, Hypogonadism in male E29.1 [facility] [address] [id number] [address] 2546 May, skilled nursing (current) use of anticoagulants Z79.01 [facility] [address], [place] [address] 2546 Apr, Hypogonadism in male E29.1 [facility] [id number] [address] 2545 Apr, [facility] [id number] [place] [address]11- 3946 Apr, Medicare welcome exam Z00.00 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 [facility] [id number] [address]- 6378 Apr, Hypogonadism in male E29.1 [facility] [address] [address] 8773 Mar, Diabetes type 2, controlled E11.9 [facility] [id number] [address]- 6046 Mar, Hypogonadism in male E29.1 [facility] [address] [address]- 9523 Mar, Hypogonadism in male E29.1 [facility] [address] [address]- 7171 Feb, Hypogonadism in male E29.1 [facility] [id number], [place] [address]- 7562 13 Feb, 2017 Malaise R53.81 [facility] [address] [address] 8[address] Feb, [facility] [id number], [place] [address]- 0426 Feb, Diabetes type 2, controlled E11.9 [facility] [id number] [place] [address] 66866- 7349 Feb, Chronic fatigue R53.82 ; Malaise R53.81 and Moderate episode of recurrent major depressive disorder F33.1 [facility] [id number] [place] [address] 68404- 7426 Jan, Diabetes type 2, controlled E11.9 [facility] [id number] [place] [address] 92281 2547 Jan, 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.01 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 [facility] [id number] [place] [address]874- 2004 Dec, Diabetes type 2, controlled E11.9 and Hypertriglyceridemia E78.1 [facility] [id number] [place] [address] 09386- 7822 Dec, Diabetes type 2, controlled E11.9 [facility] [id number] [place] [address] 22108- 1525 Dec, High risk medication use Z79.899 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 [facility] [address] [place] [address] 93040- 5370 Dec, High risk medication use Z79.899 [facility] [id number] [place] [address] 12803- 8311 Nov, Diabetes type 2, controlled E11.9 [facility] [id number] [place] [address] 96074- 6528 Oct, Diabetes type 2, controlled E11.9 [facility] [id number] [place] [address] 19366- 2911 September, Diabetes type 2, controlled E11.9 [facility] [id number] [place] [address] 88294- 4080 Aug, 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 [place] [facility] [id number] [place] [address] 79449- 0271 Aug, 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 and Hematoma of arm, right, initial encounter S40.021A [address] [address] [address]- 2783 Aug, [facility] [address] [address] 18 Aug, 2016 Cellulitis of right upper extremity L03.113 [address] [address] 42887- 5387 14 Aug, 2016 Diabetes type 2, controlled E11.9 [place] [address] 37153- 4382 Aug, Hammertoe of right foot M20.41 ; Hallux abducto valgus, left M20.12 and Onychomycosis B35.1 [address] [address] 8[address]20- 9474 Aug, 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 [place] [address] 17951- 5093 Aug, skilled nursing (current) use of anticoagulants Z79.01 [facility] [id number] [place] [address] 04361- 6030 Aug, 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 [facility] [id number] [place] [address] 63397 -1178 Aug, Right shoulder pain M25.511 and Closed nondisplaced fracture of acromial end of right clavicle, initial encounter S42.034A [address] [address] 24356- 7936 16 Jul, 2016 Diabetes type 2, controlled E11.9 [place] [address] [place] [address]- 6071 Jun, Diabetes type 2, controlled E11.9 and skilled nursing (current) use of anticoagulants Z79.01 [facility] [address] [address]- 7680 May, [facility] [id number] [place] [address] 03872- 0719 Apr, [facility] [id number] [place] [address] 68241- 7220 Mar, [facility] [id number] [place] [address] 08244- 1757 Feb, [facility] [id number] [place] [address] 67179- 1910 Dec, Diabetes type 2, controlled E11.9 [facility] [id number] [place] [address] 13998- 2065 Dec, [facility] [address], [place] [address]- 1285 Nov, [facility] [address] [place] [address] 39306- 0450 Nov, Type 2 diabetes mellitus without complications E11.9 [facility] [address] [address]- 3130 Oct, Type 2 diabetes mellitus without complications E11.9 [facility] [address] [address]- 9682 Aug, [facility] [address] [place] [address] 61499- 5273 Aug, Type 2 diabetes mellitus without complications E11.9 [facility] [address] 6991 Jun, Type 2 diabetes mellitus without complications E11.9 and 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 detention use of antiplatelet drug Z79.02 [facility] [id number] [place] [address] 11447- 3687 May, [facility] [address] [place] [address] 55301- 1493 May, Diabetes type 2, controlled E11.9 [facility] [id number] [place] [address] 35423- 2646 Apr, Diabetes type 2, controlled E11.9 [facility] [id number] [place] [address] 19881- 8893 Mar, Diabetes type 2, controlled E11.9 ; Knee pain, right M25.561 ; Other chronic pain G89.29 and Medication monitoring encounter Z51.81 [facility] [id number] [place] [address] 36232- 5064 Feb, Type 2 diabetes mellitus without complications E11.9 ; High risk medication use Z79.899 and Anxiety F41.9 [facility] [id number] [place] [address] 01435- 4458 Jan, Diabetes 250.00 [facility] [id number] [place] [address] 20280- 8515 Dec, Diabetes 250.00 [facility] [id number] [place] [address] 63958- 2362 Nov, Diabetes 250.00 [facility] [id number] [place] [address] 59034- 6388 Nov, [facility] [id number] [place] [address] 18039- 8186 Oct, Diabetes mellitus type 1 250.01 and High risk medication use V58.69 [facility] [id number] [place] [address] 85915- 5205 Oct, [facility] [id number] [place] [address] 81467- 6505 September, [facility] [id number] [place] [address] 90839- 5409 Aug, [facility] [place] [facility] [address] [id number] [place] [address]- 6342 13 Aug, 2014 [facility] [place] [facility] [address] [id number] [place] [address]- 9464 Jul, [facility] [place] [facility] [address] [id number] [place] [address]- 2117 Jul, [facility] [place] [facility] [address] [id number] [place] [address]- 2427 Jun, [facility] [place] [facility] [address] [id number] [place] [address]- 7306 Jun, [facility] [place] [facility] [address] [id number] [place] [address]- 5472 Jun, [facility] [place] [facility] [address] [id number] [place] [address]- 8181 May, [facility] [place] [facility] [address] [id number] [place] [address]- 1781 May, [facility] [place] [facility] [address] [id number] [place] [address]- 4746 Apr, [facility] [place] [facility] [address] [id number] [place] [address]- 7390 Apr, [facility] [place] [facility] [address] [id number] [place] [address]- 9609 Apr, [facility] [place] [facility] [address] [id number] [place] [address]- 6358 Apr, [facility] [place] [facility] [address] [id number] [place] [address] 2546 Apr, [facility] [place] [facility] [address] [id number] [place] 2516 Apr, [facility] [place] [facility] [address] [id number] [place] [address]- 3922 31 Feb, 2014 [facility] [place] [facility] [address] [id number] [place] [address]- 3082 Feb, [facility] [place] [facility] [address] [id number] [place] [address]- 1771 Feb, [facility] [place] [facility] [address] [id number] [place] [address]- 3403 Feb, [facility] [place] [facility] [address] [id number] [place] [address]- 7015 Dec, [facility] [place] [facility] [address] [id number] [place] [address]- 9137 Dec, [facility] [place] [facility] [address] [id number] [place] [address]- 7013 Nov, [facility] [place] [facility] [address] [id number] [place] [address]- 9371 Nov, [facility] [place] [facility] [address] [id number] [place] [address]- 2807 Oct, [facility] [place] [facility] [address] [id number] [place] [address]- 7306 Oct, [facility] [place] [facility] [address] [id number] [place] [address]- 8680 Oct, [facility] [place] [facility] [address] [id number] [place] [address]- 5007 Oct, [facility] [place] [facility] [address] [id number] [place] [address]- 7988 Oct, [facility] [place] [facility] [address] [id number] [place] [address]- 6168 Oct, [facility] [place] [facility] [address] [id number] [place] [address]- 7150 September, [facility] [place] [facility] [address] [id number] [place] [address]- 0867 September, [facility] [place] [facility] [address] [id number] [place] 4613 September, [facility] [place] [facility] [address] [id number] [place] [address]- 0175 September, [facility] [place] [facility] [address] [id number] [place] 1664 September, [facility] [place] [facility] [address] [id number] [place] [address]- 9497 September, [facility] [place] [facility] [address] [id number] [place] [address]- 1417 Aug, [facility] [place] [facility] [address] [id number] [place] [address]- 9764 Aug, [facility] [place] [facility] [address] [id number] [place] [address]- 2160 Aug, [facility] [place] [facility] [address] [id number] [place] [address]- 9317 Aug, [facility] [place] [facility] [address] [id number] [place] [address]- 1841 Aug, [facility] [place] [facility] [address] [id number] [place] [address]- 8541 Aug, [facility] [place] [facility] [address] [id number] [place] [address]- 5737 Jul, [facility] [place] [facility] [address] [id number] [place] [address]- 3624 Jul, [facility] [place] [facility] [address] [id number] [place] [address]- 0003 Jul, [facility] [place] [facility] [address] [id number] [place] [address]- 6872 Jul, [facility] [place] [facility] [address] [id number] [place] [address]- 1701 May, [facility] [place] [facility] [address] [id number] [place] [address]- 2629 May, [facility] [place] [facility] [address] [id number] [place] [address]- 2559 Apr, [facility] [address] [id number] [place] [address]- 2938 Apr, [facility] [place] [facility] [address] [id number], [place] [address]- 2546 Apr, [facility] [place] [facility] [address] [facility] [id number] [place] [address]- 2546 Apr, [facility] [place] [facility] [address] [id number], [place] [address]- 2543 Apr, [facility] [place] [facility] [address] [id number] [place] [address]- 2541 Apr, [facility] [place] [facility] [address] [id number], [place] [address]- 1252 Feb, [facility] [place] [facility] [address] [id number], [place] [address]- 9984 Feb, [facility] [place] [facility] [address] [id number], [place] [address]- 6802 Feb, [facility] [place] [facility] [address] [id number], [place] [address]- 0065 Feb, [facility] [place] [facility] [address] [id number], [place] [address]- 8652 Feb, [facility] [place] [facility] [address] [id number], [place] [address] 254 Feb, [facility] [place] [facility] [address] [id number], [place] [address]- 2549 Feb, [facility] [place] [facility] [address] [id number], [place] [address]- 2549 Feb, [facility] [place] [facility] [address] [id number], [place] [address] 2549 Jan, [facility] [place] [facility] [address] [id number], [place] [address]- 2546 Jan, [facility] [place] [facility] [address] [id number] [place] [address]- 1288 Jan, [facility] [address] [id number] [place] [address]- 8742 Jan, [facility] [address] [id number] [place] [address]- 1359 Dec, [facility] [address] [id number] [place] [address]- 8259 Dec, [facility] [address] [id number] [place] [address]- 2460 Dec, [facility] [address] [id number] [place] [address]- 2012 Nov, [facility] [address] [id number] [place] [address]- 4623 Nov, [facility] [address] [id number] [place] [address]- 7227 Oct, [facility] [address] [id number] [place] [address]- 9117 September, [facility] [address] [id number] [place] [address]- 8028 September, [facility] [address] [id number] [place] [address]- 6291 September, [facility] [address] [id number] [place] [address]- 5617 Aug, [facility] [address] [id number] [place] [address]- 9325 16 Aug, 2012 [facility] [place] [facility] [address] [id number] [place] [address]- 7021 15 Aug, 2012 [facility] [place] [facility] [address] [id number] [place] [address]- [address] Jul, [facility] [address] [id number] [place] [address] Jul, [facility] [place] [facility] [address] [id number] [place] [address] Jun, [facility] [place] [facility] [address] [id number] [place] [address] Jun, [facility] [place] [facility] [address] [id number] [place] [address] Jun, [facility] [place] [facility] [address] [id number] [place] [address] Jun, [facility] [place] [facility] [address] [id number] [place] [address] May, [facility] [place] [facility] [address] [id number] [place] [address] May, [facility] [place] [facility] [address] [id number] [place] [address] Apr, [facility] [place] [facility] [address] [id number] [place] [address] Apr, [facility] [place] [facility] [address] [id number] [place] [address] Apr, [facility] [place] [facility] [address] [id number] [place] [address] Apr, [facility] [place] [facility] [address] [id number] [place] [address] Apr, [facility] [place] [facility] [address] [id number] [place] [address] Apr, [facility] [place] [facility] [address] [id number] [place] [address] Mar, [facility] [place] [facility] [address] [id number] [place] [address] Mar, [facility] [place] [facility] [address] [id number] [place] [address] Mar, [facility] [place] [facility] [address] [id number] [place] [address] Mar, [facility] [place] [facility] [address] [id number] [place] [address] Mar, [facility] [place] [facility] [address] [id number] [place] [address] Mar, [facility] [place] [facility] [address] [id number] [place] [address] Feb, [facility] [place] [facility] [address] [id number] [place] [address] Feb, [facility] [place] [facility] [address] [id number] [place] [address], [place] [address]- [address] Feb, [facility] [place] [facility] [address] [id number] [place] [address] Feb, [facility] [place] [facility] [address] [id number] [place] [address] Feb, [facility] [place] [facility] [address] [id number] [place] [address] Jan, [facility] [place] [facility] [address] [id number] [place] [address] Jan, [facility] [place] [facility] [address] [id number] [place] [address] Jan, [facility] [place] [facility] [address] [id number] [place] [address] Dec, [facility] [place] [facility] [address] [id number] [place] [address] Dec, [facility] [place] [facility] [address] [id number] [place] [address] Nov, [facility] [place] [facility] [address] [id number] [place] [address] Oct, [facility] [place] [facility] [address] [id number] [place] [address] Oct, [facility] [place] [facility] [address] [id number] [place] [address] Oct, [facility] [place] [facility] [address] [id number] [place] [address] Oct, [facility] [place] [facility] [address] [id number] [place] [address] Oct, [facility] [place] [facility] [address] [id number] [place] [address] September, [facility] [place] [facility] [address] [id number] [place] [address] Aug, [facility] [place] [facility] [address] [id number] [place] [address] 18 Aug, 2011 [facility] [place] [facility] [address] [id number] [place] [address] 17 Aug, 2011 [facility] [place] [facility] [address] [id number] [place] [address] 16 Aug, 2011 [facility] [place] [facility] [address] [id number] [place] [address] 13 Aug, 2011 [facility] [facility] [address] [id number] [place] [address] Aug, [facility] [place] [facility] [address] [id number] [place] [address] Aug, [facility] [place] [facility] [address] [id number] [place] [address] Aug, [facility] [place] [facility] [address] [id number] [place] [address] Aug, [facility] [place] [facility] [address] [id number] [place] [address] Jul, [facility] [place] [facility] [address] [id number] [place] [address] Jul, [facility] [place] [facility] [address] [id number] [place] [address] 20 Jul, 2011 [facility] [address] [id number] [place] [address] 17 Jul, 2011 [facility] [place] [facility] [address] [id number] [place] [address] 08 Jul, 2011 [facility] [place] [facility] [address] [id number] [place] [address] 15 Jun, 2011 [facility] [place] [facility] [address] [id number] [place] [address] 14 Jun, 2011 [facility] [place] [facility] [address] [id number] [place] [address] 08 Jun, 2011 [facility] [place] [facility] [address] [id number] [place] [address] 08 Jun, 2011 [facility] [address] [id number] [place] [address] May, [facility] [place] [facility] [address] [id number] [place] [address] May, [facility] [place] [facility] [address] [id number] [place] [address] May, [facility] [place] [address] [id number] [place] [address] May, [facility] [place] [facility] [address] [id number] [place] [address] May, [facility] [place] [facility] [address] [id number] [place] [address] May, [facility] [address] [id number] [place] [address] May, [facility] [address] [id number] [place] [address] Apr, [facility] [address] [id number] [place] [address] Apr, [facility] [address] [id number] [place] [address] 13 Apr, 2011 [facility] [address] [id number] [place] [address] Apr, [facility] [address] [id number] [place] [address] Apr, [facility] [address] [id number] [place] [address] Apr, [facility] [address] [id number] [place] [address] Apr, [facility] [address] [id number] [place] [address] Apr, [facility] [address] [id number] [place] [address] Apr, [facility] [address] [id number] [place] [address] Apr, [facility] [address] [id number] [place] [address] Mar, [facility] [address] [id number] [place] [address] Mar, [facility] [address] [id number] [place] [address] Feb, [facility] [address] [id number] [place] [address] Jun, [facility] [address] [id number] [place] [address] Apr, [facility] [address] [id number] [place] [address] Feb, [facility] [address] [id number] [place] [address] Feb, [facility] [facility] [address] [id number] [place] [address] Feb, [facility] [address] [id number] [address] Apr, [facility] [address] [facility] [id number] [address] Apr, [facility] [address] [facility] [id number] [address] Mar, [facility] [address] [facility] [id number], [place] [address] Mar, [facility] [address] [facility] [id number], [place] [address] Mar, [facility] [id number] [address] Feb, [facility] [id number] [address] Feb, [facility] [id number] [address] Feb, [facility] [address] [id number] [address] Jan, IMMUNIZATIONS No Known Immunizations SOCIAL HISTORY Never Assessed REASON FOR VISIT Requests return call PLAN OF CARE VITAL SIGNS MEDICATIONS Medication Instructions Dosage Frequency Start Date End Date Duration Status Actos 45 MG Orally Once a day 1 tablet 24h Feb, 90 days Active RESULTS No Results PROCEDURES [...]
--- OUTSIDE RECORDS SUMMARY | 2018-04-28 05:25 | XMS REPORT ---
Author Author MARLEY MCGRATH Organization [facility] Address [address] [place] [address] Care Team Providers Care Patient Financial Services Coordinator Name Role Phone MARLEY MCGRATH Unavailable PROBLEMS Type Condition ICD9-CM Code VQS58-TW Code Onset Dates Condition Status SNOMED Code Problem Hammertoe of right foot M20.41 Active 981598920 Problem Moderate episode of recurrent major depressive disorder F33.1 Active 866601648 Problem Hypertriglyceridemia E78.1 Active 554355533 Problem Other chronic pain G89.29 Active 03347397 Problem Memory loss R41.3 Active 703286780 Problem 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.01 Active 9682781 Problem Chronic fatigue R53.82 Active 44000772 Problem Controlled type 2 diabetes mellitus without complication, without long -term current use of insulin E11.9 Active 322665977 Problem Chronic major depressive disorder, recurrent episode F33.9 Active 14081993 Problem Knee pain, right M25.561 Active 31581671 Problem Diabetes type 2, controlled E11.9 Active 03611590 Problem Type 2 diabetes mellitus without complications E11.9 Active 462054798 Problem Hypogonadism in male E29.1 Active 68568492 Problem group home (current) use of anticoagulants Z79.01 Active 677632911 ALLERGIES No Information ENCOUNTERS Encounter Location Date Diagnosis [facility] [id number], [place] [address] Dec, Hypogonadism in male E29.1 [facility] [address], [place] [address] Dec, Medicare welcome exam Z00.00 [facility] [id number], [place] [address] Dec, Hypogonadism in male E29.1 [facility] [id number], [place] [address] Dec, [facility] [address], [place] [address] Nov, Hypogonadism in male E29.1 [facility] [address], [place] [address] Nov, Type 2 diabetes mellitus without complications E11.9 and History of Coumadin therapy Z92.29 [facility] [address], [place] [address] 2546 Nov, Medicare welcome exam Z00.00 [facility] [address], [place] [address] Nov, Type 2 diabetes mellitus without complications E11.9 ; History of Coumadin therapy Z92.29 and Hypogonadism in male E29.1 [facility] [address], [place] [address] Nov, [facility] [address], [place] [address] Oct, [facility] [address], [place] [address] 7210 Oct, Diabetes type 2, controlled E11.9 [facility] [address], [place] [address] 7876 Oct, Medicare welcome exam Z00.00 [facility] [address], [place] [address] 65[address] Oct, Hypogonadism in male E29.1 [facility] [id number], [place] [address] Oct, [facility] [address], [place] [address] September, Hypogonadism in male E29.1 [facility] [address], [place] [address] September, Medicare welcome exam Z00.00 [facility] [id number], [place] [address] September, Hypogonadism in male E29.1 [facility] [id number] [place] [address]- 1756 Aug, Other chronic pain G89.29 ; Memory loss R41.3 ; Controlled type 2 diabetes mellitus without complication, without long-term current use of insulin E11.9 and Chronic major depressive disorder, recurrent episode F33.9 [facility] [id number] [place] [address] 94651- 0655 Aug, Medicare welcome exam Z00.00 [facility] [facility] [id number] [place] [address]57- 5832 Aug, [facility] [id number] [place] [address]36 -6175 Aug, Hypogonadism in male E29.1 [facility] [id number] [place] [address] 99380- 4691 Jul, [facility] [id number] [place] [address] 81896- 1839 Jul, Hypogonadism in male E29.1 [facility] [id number] [place] [address] 87991- 1488 Jul, [facility] [id number] [place] [address] 24843 -0744 Jul, Hypogonadism in male E29.1 [facility] [id number] [place] [address]- 1942 Jul, Medicare welcome exam Z00.00 [facility] [id number] [place] [address] 53537- 2117 Jun, Medicare welcome exam Z00.00 [facility] [id number] [place] [address] 48498 -3196 Jun, Fever R50.9 and Influenza B J10.1 [facility] [address], [place] [address]- 7[address] Jun, Hypogonadism in male E29.1 [facility] [address], [place] [address] 4786 Jun, Diabetes type 2, controlled E11.9 [facility] [address], [place] [address] 9186 May, Hypogonadism in male E29.1 [facility] [address], [place] [address] 2547 May, group home (current) use of anticoagulants Z79.01 [facility] [address] [id number], [place] [address] 2546 Apr, Hypogonadism in male E29.1 [facility] [address], [place] [address] Apr, [facility] [address], [place] [address]- 9247 Apr, Medicare welcome exam Z00.00 and group home (current) use of anticoagulants Z79.01 [facility] [address], [place] [address] 2140 Apr, Hypogonadism in male E29.1 [facility] [address], [place] [address] 1286 Mar, Diabetes type 2, controlled E11.9 [facility] [address], [place] [address]- 7952 Mar, Hypogonadism in male E29.1 [facility] [address], [place] [address]- 5468 Mar, Hypogonadism in male E29.1 [facility] [address] [address] Feb, Hypogonadism in male E29.1 [facility] [address], [place] [address] 6073 Feb, Malaise R53.81 [place] [id number] [place] [address] 20162- 0549 Feb, [place] [facility] [id number] [place] [address] 71938- 9541 Feb, Diabetes type 2, controlled E11.9 [facility] [facility] [id number] [place] [address] 84816- 9921 Feb, Chronic fatigue R53.82 ; Malaise R53.81 and Moderate episode of recurrent major depressive disorder F33.1 [facility] [facility] [id number] [place] [address] 06710- 3715 Jan, Diabetes type 2, controlled E11.9 [facility] [facility] [id number] [place] [address] 94306- 0972 Jan, 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.01 and group home (current) use of anticoagulants Z79.01 [facility] [facility] [id number] [place] [address] 82126- 8403 Dec, Diabetes type 2, controlled E11.9 and Hypertriglyceridemia E78.1 [facility] [id number] [place] [address] 01533- 0010 Dec, Diabetes type 2, controlled E11.9 [facility] [facility] [id number] [place] [address] 33813- 4924 Dec, High risk medication use Z79.899 and community health counselor (current) use of anticoagulants Z79.01 [place] [id number] [place] [address] 28065- 7553 Dec, High risk medication use Z79.899 [place] [facility] [id number] [place] [address] 59129- 9233 Nov, Diabetes type 2, controlled E11.9 [place] [facility] [id number] [place] [address] 10177- 0239 Oct, Diabetes type 2, controlled E11.9 [facility] [address] [address]- 3365 September, Diabetes type 2, controlled E11.9 [place] [address] 73913- 3701 Aug, community health counselor (current) use of anticoagulants Z79.01 [place] [address] 79474- 5428 Aug, community health counselor (current) use of anticoagulants Z79.01 and Hematoma of arm, right, initial encounter S40.021A [place] [address] 41901- 0345 Aug, [facility] [address] [address]367 -[address]179 Aug, Cellulitis of right upper extremity L03.113 [place] [address] 79644- 2828 Aug, Diabetes type 2, controlled E11.9 [place] [address] 51687- 4503 Aug, Hammertoe of right foot M20.41 ; Hallux abducto valgus, left M20.12 and Onychomycosis B35.1 [place] [address] 28513- 3436 Aug, community health counselor (current) use of anticoagulants Z79.01 [place] [address] 97692- 0183 Aug, community health counselor (current) use of anticoagulants Z79.01 [place] [address] 96518- 8242 Aug, group home (current) use of anticoagulants Z79.01 [facility] [address] [address] -[address] 03 Apr, 2017 Right shoulder pain M25.511 and Closed nondisplaced fracture of acromial end of right clavicle, initial encounter S42.034A [facility] [id number] [place] [address] 70956- 6852 Jul, Diabetes type 2, controlled E11.9 [facility] [address], [place] [address]- 4906 Jun, Diabetes type 2, controlled E11.9 and community health counselor (current) use of anticoagulants Z79.01 [facility] [id number], [place] [address]- 9799 May, [facility] [id number] [place] [address] 41296- 6818 Apr, [facility] [id number] [place] [address] 73051- 0142 Mar, [facility] [id number] [place] [address] 45938- 2955 Feb, [facility] [id number] [place] [address] 64828- 3205 Dec, Diabetes type 2, controlled E11.9 [facility] [address], [place] [address]- 0038 Dec, [facility] [address], [place] [address]- 8832 Nov, [facility] [address], [place] [address]- 7411 Nov, Type 2 diabetes mellitus without complications E11.9 [facility] [address], [place] [address]- 1526 Oct, Type 2 diabetes mellitus without complications E11.9 [facility] [address], [place] [address]- 1985 Aug, [facility] [address], [place] [address]- 4125 Aug, Type 2 diabetes mellitus without complications E11.9 [address] [address], [place] [address]- 0262 Jun, Type 2 diabetes mellitus without complications E11.9 and 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.02 [place] [address], [place] [address]- 7058 May, [place] [id number] [place] [address] 28834- 8556 May, Diabetes type 2, controlled E11.9 [place] [facility] [id number] [place] [address] 52325- 8447 Apr, Diabetes type 2, controlled E11.9 [facility] [facility] [id number] [place] [address] 91251- 3104 Mar, Diabetes type 2, controlled E11.9 ; Knee pain, right M25.561 ; Other chronic pain G89.29 and Medication monitoring encounter Z51.81 [place] [id number] [place] [address] 46919- 2271 Feb, Type 2 diabetes mellitus without complications E11.9 ; High risk medication use Z79.899 and Anxiety F41.9 [place] [id number] [place] [address] 05647- 7167 Jan, Diabetes 250.00 [place] [id number] [place] [address] 45462- 2149 Dec, Diabetes 250.00 [place] [id number] [place] [address] 68666- 2542 Nov, Diabetes 250.00 [place] [id number] [place] [address] 68470- 6174 Nov, [place] [id number] [place] [address] 41018- 0545 Oct, Diabetes mellitus type 1 250.01 and High risk medication use V58.69 [place] [id number] [place] [address], [place] [address]- 8539 Oct, [facility] [place] [facility] [address] [id number] [place] [address]- 2668 September, [facility] [place] [facility] [address] [id number] [place] [address]- 9467 Aug, [facility] [place] [facility] [address] [id number] [place] [address]- 3600 Aug, [facility] [place] [facility] [address] [id number] [place] [address]- 8427 Jul, [facility] [place] [facility] [address] [id number] [place] [address]- 1154 Jul, [facility] [place] [facility] [address] [id number] [place] [address]- 3857 Jun, [facility] [place] [facility] [address] [id number] [place] [address]- 9243 Jun, [facility] [place] [facility] [address] [id number] [place] [address]- 5790 Jun, [facility] [place] [facility] [address] [id number] [place] [address]- 7216 May, [facility] [place] [facility] [address] [id number] [place] [address]- 0020 May, [facility] [place] [facility] [address] [id number] [place] [address]- 9680 Apr, [facility] [place] [facility] [address] [id number] [place] [address]- 5814 Apr, [facility] [place] [facility] [address] [id number] [place] 0509 Apr, [facility] [place] [facility] [address] [id number] [place] [address]- 0014 Apr, [facility] [place] [facility] [address] [id number] [place] 9644 Apr, [facility] [place] [facility] [address] [id number] [place] [address]- 8550 Apr, [facility] [place] [facility] [address] [id number] [place] [address]- 7372 Feb, [facility] [place] [facility] [address] [id number] [place] 3412 Feb, [facility] [place] [facility] [address] [id number] [place] [address]- 5758 Feb, [facility] [place] [facility] [address] [id number] [place] [address]- 9783 Feb, [facility] [place] [facility] [address] [id number] [place] [address]- 6032 Dec, [facility] [place] [facility] [address] [id number] [place] [address]- 6696 Dec, [facility] [place] [facility] [address] [id number] [place] [address]- 2006 Nov, [facility] [place] [facility] [address] [id number] [place] [address]- 6366 Nov, [facility] [place] [facility] [address] [id number] [place] [address]- 1085 Oct, [facility] [place] [facility] [address] [id number] [place] [address]- 1678 Oct, [facility] [place] [facility] [address] [id number] [place] [address]- 4530 Oct, [facility] [place] [facility] [address] [id number] [place] [address]- 1721 Oct, [facility] [place] [facility] [address] [id number] [place] [address]- 9981 Oct, [facility] [place] [facility] [address] [id number] [place] [address]- 5109 Oct, [facility] [place] [facility] [address] [id number] [place] [address]- 4957 September, [facility] [place] [facility] [address] [id number] [place] [address]- 0888 September, [facility] [place] [facility] [address] [id number] [place] 8574 September, [facility] [place] [facility] [address] [id number] [place] [address]- 0316 September, [facility] [place] [facility] [address] [id number] [place] [address]- 4435 September, [facility] [place] [facility] [address] [id number] [place] [address]- 7213 September, [facility] [place] [facility] [address] [id number] [place] [address]- 9274 Aug, [facility] [place] [facility] [address] [id number] [place] [address]- 0596 Aug, [facility] [place] [facility] [address] [id number] [place] [address]- 7790 Aug, [facility] [place] [facility] [address] [id number] [place] [address]- 5170 Aug, [facility] [place] [facility] [address] [id number] [place] [address]- 1545 Aug, [facility] [place] [facility] [address] [id number] [place] [address]- 0524 Aug, [facility] [place] [facility] [address] [id number] [place] [address]- 9020 Jul, [facility] [place] [facility] [address] [id number] [place] [address]- 6894 Jul, [facility] [place] [facility] [address] [id number] [place] [address]- 6391 Jul, [facility] [place] [facility] [address] [id number] [place] [address]- 7393 Jul, [facility] [place] [facility] [address] [id number] [place] [address]- 2069 May, [facility] [address] [id number] [place] [address]- 5687 May, [facility] [address] [id number] [place] [address]- 1161 Apr, [facility] [address] [id number] [place] [address]- 8830 Apr, [facility] [address] [id number] [place] [address]- 5943 Apr, [facility] [address] [id number] [place] [address]- 6887 Apr, [facility] [address] [id number] [place] [address]- 0847 Apr, [facility] [address] [id number] [place] [address]- 0014 Apr, [facility] [address] [id number] [place] [address]- 6653 Feb, [facility] [address] [id number] [place] [address]- 4690 Feb, [facility] [address] [id number] [place] [address]- 6331 Feb, [facility] [place] [facility] [address] [id number] [place] [address]- 2548 Feb, [facility] [address] [id number] [place] [address]- 3471 Feb, [facility] [place] [facility] [address] [id number] [place] [address]- 4248 Feb, [facility] [place] [facility] [address] [id number] [place] [address]- 2546 Feb, [facility] [place] [facility] [address] [id number] [place] [address]- 9223 Feb, [facility] [address] [id number] [place] [address]- 6029 Jan, [facility] [place] [facility] [address] [id number] [place] [address]- 9989 Jan, [facility] [place] [facility] [address] [id number] [place] [address]- 8427 Jan, [facility] [place] [facility] [address] [id number] [place] [address]- 5344 Jan, [facility] [place] [facility] [address] [id number] [place] [address]- 9608 Dec, [facility] [place] [facility] [address] [id number] [place] [address]- 5596 Dec, [facility] [place] [facility] [address] [id number] [place] [address]- 5262 Dec, [facility] [place] [facility] [address] [id number] [place] [address]- 3352 Nov, [facility] [place] [facility] [address] [id number] [place] [address]- 6572 Nov, [facility] [place] [facility] [address] [id number] [place] [address]- 7167 Oct, [facility] [place] [facility] [address] [id number] [place] [address]- 3155 September, [facility] [place] [facility] [address] [id number] [place] [address]- 8892 September, [facility] [place] [facility] [address] [id number] [place] [address] September, [facility] [place] [facility] [address] [id number] [place] [address] Aug, [facility] [place] [facility] [address] [id number] [place] [address] Aug, [facility] [place] [facility] [address] [id number] [place] [address] 15 Aug, 2012 [facility] [address] [id number] [place] [address] Jul, [facility] [place] [facility] [address] [id number] [place] [address] Jul, [facility] [address] [id number] [place] [address] Jun, [facility] [place] [facility] [address] [id number] [place] [address] Jun, [facility] [address] [id number] [place] [address] Jun, [facility] [address] [id number] [place] [address] Jun, [facility] [address] [id number] [place] [address] May, [facility] [address] [id number] [place] [address] May, [facility] [address] [id number] [place] [address] Apr, [facility] [address] [id number] [place] [address] Apr, [facility] [address] [id number] [place] [address] Apr, [facility] [place] [facility] [address] [id number] [place] [address] Apr, [facility] [place] [facility] [address] [id number] [place] [address] Apr, [facility] [place] [facility] [address] [id number] [place] [address] Apr, [facility] [place] [facility] [address] [id number] [place] [address] Mar, [facility] [place] [facility] [address] [id number] [place] [address] Mar, [facility] [place] [facility] [address] [id number] [place] [address] Mar, [facility] [place] [facility] [address] [id number] [place] [address] Mar, [facility] [place] [facility] [address] [id number] [place] [address] Mar, [facility] [place] [facility] [address] [id number] [place] [address] Mar, [facility] [place] [facility] [address] [id number] [place] [address] Feb, [facility] [place] [facility] [address] [id number] [place] [address] Feb, [facility] [place] [facility] [address] [id number] [place] [address] Feb, [facility] [place] [facility] [address] [id number] [place] [address] Feb, [facility] [place] [facility] [address] [id number] [place] [address] Feb, [facility] [place] [facility] [address] [id number] [place] [address] Jan, [facility] [place] [facility] [address] [id number] [place] [address] Jan, [facility] [place] [facility] [address] [id number] [place] [address] Jan, [facility] [place] [facility] [address] [id number] [place] [address] Dec, [facility] [place] [facility] [address] [id number] [place] [address] Dec, [facility] [place] [facility] [address] [id number] [place] [address] Nov, [facility] [place] [facility] [address] [id number] [place] [address] Oct, [facility] [place] [facility] [address] [id number] [place] [address] Oct, [facility] [place] [facility] [address] [id number] [place] [address] Oct, [facility] [place] [facility] [address] [id number] [place] [address] Oct, [facility] [place] [facility] [address] [id number] [place] [address] Oct, [facility] [place] [facility] [address] [id number] [place] [address] September, [facility] [place] [facility] [address] [id number] [place] [address] Aug, [facility] [place] [facility] [address] [id number] [place] [address] 18 Aug, 2011 [facility] [place] [facility] [address] [id number] [place] [address]69 17 Aug, 2011 [facility] [place] [facility] [address] [id number] [place] [address] 16 Aug, 2011 [facility] [place] [facility] [address] [id number] [place] [address] 13 Aug, 2011 [facility] [place] [facility] [address] [id number] [place] [address] 11 Aug, 2011 [facility] [place] [facility] [address] [id number] [place] [address] 11 Aug, 2011 [facility] [place] [facility] [address] [id number] [place] [address] 05 Aug, 2011 [facility] [place] [facility] [address] [id number] [place] [address] 05 Aug, 2011 [facility] [place] [facility] [address] [id number] [place] [address] 20 Jul, 2011 [facility] [address] [id number] [place] [address] 20 Jul, 2011 [facility] [place] [facility] [address] [id number] [place] [address] 3966 20 Jul, 2011 [facility] [address] [id number] [place] [address] 17 Jul, 2011 [facility] [place] [facility] [address] [id number] [place] [address] 08 Jul, 2011 [facility] [address] [id number] [place] [address] 15 Jun, 2011 [facility] [place] [facility] [address] [id number] [place] [address] 14 Jun, 2011 [facility] [place] [facility] [address] [id number] [place] [address] 6[address] 08 Jun, 2011 [facility] [address] [id number] [place] [address] 7768 08 Jun, 2011 [facility] [address] [id number] [place] [address]377 19 May, 2011 [facility] [address] [id number] [place] [address] 13 May, 2011 [facility] [address] [id number] [place] [address] 10 May, 2011 [facility] [place] [facility] [address] [id number] [place] [address] 164[address] 08 May, 2011 [facility] [place] [facility] [address] [id number] [place] [address] 06 May, 2011 [facility] [place] [facility] [address] [id number] [place] [address] 04 May, 2011 [facility] [place] [facility] [address] [id number] [place] [address] 130[address] May, [facility] [address] [id number] [place] [address] Apr, [facility] [place] [facility] [address] [id number] [place] [address] 1016 Apr, [facility] [place] [facility] [address] [id number] [place] [address] 4926 Apr, [facility] [place] [facility] [address] [id number] [place] [address] 2960 Apr, [facility] [place] [facility] [address] [id number] [place] [address] 37[address] Apr, [facility] [place] [facility] [address] [id number] [place] [address] Apr, [facility] [place] [facility] [address] [id number] [place] [address] Apr, [facility] [place] [facility] [address] [id number] [place] [address] Apr, [facility] [place] [facility] [address] [id number] [place] [address] Apr, [facility] [place] [facility] [address] [id number] [place] [address] 86[address] Apr, [facility] [place] [facility] [address] [id number], [place] [address] Mar, [facility] [place] [facility] [address] [id number], [place] [address] Mar, [facility] [place] [facility] [address] [id number] [place] [address] 25[address] Feb, [facility] [place] [facility] [address] [id number], [place] [address] 16 Jun, 2010 [facility] [place] [facility] [address] [id number], [place] [address] Apr, [facility] [place] [facility] [address] [address] Feb, [facility] [address] [address] Feb, [facility] [address] [address] Feb, [facility] [address] [address] [address] Apr, [facility] [address] [address] Apr, [facility] [id number] [place] [address]2961- [address]68 Mar, [facility] [id number] [place] [address]- [address]265 Mar, [facility] [id number] [place] [address] 479513- 3536 Mar, [facility] [address], [place] [address] Feb, [facility] [id number] [place] [address]016- [address] Feb, [facility] [address], [place] [address] Feb, [facility] [address] [address] Jan, IMMUNIZATIONS Vaccine Route Administration Date Status TESTOSTERONE (PT'S OWN) IM Intramuscular October 29, 2017 Administered SOCIAL HISTORY Never Assessed REASON FOR VISIT Injection -[place] PATIÑO PLAN OF CARE Activity Details Follow Up 2 Weeks Reason:injection VITAL SIGNS MEDICATIONS Unknown Medications RESULTS No Results PROCEDURES Procedure Date Ordered Result Body Site TESTOSTERONE (PT'S OWN) October 29, 2017 THER/PROPH/DIAG INJ, SC/IM October 29, 2017 INSTRUCTIONS MEDICATIONS ADMINISTERED No Known Medications [...]
--- OUTSIDE RECORDS SUMMARY | 2018-04-28 05:26 | XMS REPORT ---
Author Author PRICILLA LEWIS Organization [facility] Address [address] [place] [address] Care Team Providers Care Sleeve Sewer Name Role Phone PRICILLA LEWIS Unavailable PROBLEMS Type Condition ICD9-CM Code QUE91-XZ Code Onset Dates Condition Status SNOMED Code Problem Hammertoe of right foot M20.41 Active 208964778 Problem Moderate episode of recurrent major depressive disorder F33.1 Active 901295734 Problem Hypertriglyceridemia E78.1 Active 207551384 Problem Other chronic pain G89.29 Active 53660746 Problem Memory loss R41.3 Active 062333536 Problem 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.01 Active 3732027 Problem Chronic fatigue R53.82 Active 84436992 Problem Controlled type 2 diabetes mellitus without complication, without long -term current use of insulin E11.9 Active 630108714 Problem Chronic major depressive disorder, recurrent episode F33.9 Active 52270402 Problem Knee pain, right M25.561 Active 82750033 Problem Diabetes type 2, controlled E11.9 Active 14314136 Problem Type 2 diabetes mellitus without complications E11.9 Active 240050773 Problem Hypogonadism in male E29.1 Active 79515127 Problem residential (current) use of anticoagulants Z79.01 Active 681702503 ALLERGIES No Information ENCOUNTERS Encounter Location Date Diagnosis [facility] [address] [id number], [place] [address] Dec, Hypogonadism in male E29.1 [facility] [address], [place] [address] Dec, [facility] [id number] [place] [address] 68073- 6013 Nov, Hypogonadism in male E29.1 [facility] [address] [id number], [place] [address] Nov, Type 2 diabetes mellitus without complications E11.9 and History of Coumadin therapy Z92.29 [facility] [address] [facility] [id number], [place] [address] 2546 18 Nov, 2017 Medicare welcome exam Z00.00 [facility] [address] [facility] [id number], [place] [address] 2546 12 Nov, 2017 Type 2 diabetes mellitus without complications E11.9 ; History of Coumadin therapy Z92.29 and Hypogonadism in male E29.1 [facility] [address] [facility] [id number] [place] [address] 2546 Nov, [facility] [address] [facility] [id number], [place] [address] 2546 Oct, [facility] [address] [facility] [id number], [place] [address] 2546 Oct, Diabetes type 2, controlled E11.9 [facility] [address] [facility] [id number], [place] [address] 2546 Oct, Medicare welcome exam Z00.00 [facility] [address] [facility] [id number], [place] [address] 2546 Oct, Hypogonadism in male E29.1 [facility] [address] [facility] [id number], [place] [address] 2546 Oct, [facility] [address] [id number] [address] 2546 September, Hypogonadism in male E29.1 [facility] [address] [facility] [id number], [place] [address] 2546 September, Medicare welcome exam Z00.00 [facility] [address] [facility] [id number], [place] [address] 2546 September, Hypogonadism in male E29.1 [facility] [address] [facility] [id number], [place] [address] 1086 Aug, Other chronic pain G89.29 ; Memory loss R41.3 ; Controlled type 2 diabetes mellitus without complication, without long-term current use of insulin E11.9 and Chronic major depressive disorder, recurrent episode F33.9 [facility] [address] [id number] [address] 11 Aug, 2017 Medicare welcome exam Z00.00 [facility] [address] [id number], [place] [address] Aug, [facility] [id number] [place] [address]12 -9351 Aug, Hypogonadism in male E29.1 [facility] [id number] [place] [address] 76097- 2456 Jul, [facility] [id number] [place] [address] 41164- 9000 Jul, Hypogonadism in male E29.1 [facility] [id number] [place] [address] 08212- 9654 Jul, [facility] [id number] [place] [address] 90372 -1702 Jul, Hypogonadism in male E29.1 [facility] [id number] [place] [address] 49301- 7890 Jul, Medicare welcome exam Z00.00 [facility] [address], [place] [address] 1130 22 Jun, 2017 Medicare welcome exam Z00.00 [facility] [address] [place] [address] 09582 -7248 Jun, Fever R50.9 and Influenza B J10.1 [facility] [id number] [place] [address] 05094- 5535 13 Jun, 2017 Hypogonadism in male E29.1 [facility] [address] [id number], [place] [address] 4[address] 09 Jun, 2017 Diabetes type 2, controlled E11.9 [facility] [address], [place] [address] 6585 May, Hypogonadism in male E29.1 [facility] [id number] [place] [address] 12799- 6866 May, 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 [facility] [id number] [place] [address] 85997- 9313 Apr, Hypogonadism in male E29.1 [facility] [id number] [place] [address] 17807- 0702 Apr, [facility] [id number] [place] [address] 98866- 0913 Apr, Medicare welcome exam Z00.00 and 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 [facility] [id number] [place] [address] 61798- 1577 Apr, Hypogonadism in male E29.1 [facility] [address] [place] [address] 96879- 8308 Mar, Diabetes type 2, controlled E11.9 [facility] [address] [place] [address] 31765- 8378 Mar, Hypogonadism in male E29.1 [facility] [address], [place] [address]- 8991 Mar, Hypogonadism in male E29.1 [facility] [address], [place] [address]- 9111 Feb, Hypogonadism in male E29.1 [facility] [id number] [place] [address] 56254- 4524 Feb, Malaise R53.81 [facility] [address], [place] [address]- 9075 Feb, [facility] [id number] [place] [address] 70564- 1338 Feb, Diabetes type 2, controlled E11.9 [facility] [address] [place] [address] 38061- 5037 Feb, Chronic fatigue R53.82 ; Malaise R53.81 and Moderate episode of recurrent major depressive disorder F33.1 [address], [place] [address]- 3340 Jan, Diabetes type 2, controlled E11.9 [facility] [id number] [place] [address] 73753- 6618 Jan, 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.01 and residential (current) use of anticoagulants Z79.01 [place] [facility] [id number] [place] [address] 08495- 7031 Dec, Diabetes type 2, controlled E11.9 and Hypertriglyceridemia E78.1 [place] [facility] [id number] [place] [address] 53519- 1592 Dec, Diabetes type 2, controlled E11.9 [address] [address] [place] [address] 26032- 9368 Dec, High risk medication use Z79.899 and residential (current) use of anticoagulants Z79.01 [address] [place] [address], [place] [address]- 0579 Dec, High risk medication use Z79.899 [address] [place] [id number] [place] [address] 25472- 5840 Nov, Diabetes type 2, controlled E11.9 [address] [place] [address], [place] [address]- 2101 Oct, Diabetes type 2, controlled E11.9 [address] [place] [address] [place] [address] 97267- 6134 September, Diabetes type 2, controlled E11.9 [address] [id number] [place] [address] 52845- 7929 Aug, residential (current) use of anticoagulants Z79.01 [address] [facility] [id number] [place] [address] 55479- 2042 Aug, 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 and Hematoma of arm, right, initial encounter S40.021A [address] [id number] [place] [address] 63687- 4983 Aug, [facility] [address] [address] -[address] Aug, Cellulitis of right upper extremity L03.113 [address] [address] 30426- 5953 14 Aug, 2016 Diabetes type 2, controlled E11.9 [place] [id number] [place] [address] 95280- 6769 Aug, Hammertoe of right foot M20.41 ; Hallux abducto valgus, left M20.12 and Onychomycosis B35.1 [address] [id number] [place] [address] 29739- 5631 Aug, 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 [address] [id number] [place] [address] 62638- 9753 Aug, residential (current) use of anticoagulants Z79.01 [address] [place] [id number] [place] [address] 47986- 4987 Aug, residential (current) use of anticoagulants Z79.01 [facility] [id number] [place] [address] 85963 -8465 Aug, Right shoulder pain M25.511 and Closed nondisplaced fracture of acromial end of right clavicle, initial encounter S42.034A [address] [place] [address] [place] [address] 50593- 8641 Jul, Diabetes type 2, controlled E11.9 [address] [place] [id number], [place] [address]- 3037 Jun, Diabetes type 2, controlled E11.9 and residential (current) use of anticoagulants Z79.01 [facility] [address], [place] [address]- 1181 May, [facility] [address], [place] [address]- 3640 Apr, [facility] [address], [place] [address]- 1766 Mar, [facility] [address], [place] [address]- 2993 Feb, [facility] [address], [place] [address]- 0886 Dec, Diabetes type 2, controlled E11.9 [facility] [address], [place] [address]- 4975 Dec, [facility] [address], [place] [address]- 5069 Nov, [facility] [address], [place] [address]- 4481 Nov, Type 2 diabetes mellitus without complications E11.9 [facility] [address], [place] [address]- 8668 Oct, Type 2 diabetes mellitus without complications E11.9 [facility] [id number], [place] [address]- 6259 Aug, [facility] [id number], [place] [address]- 9090 Aug, Type 2 diabetes mellitus without complications E11.9 [facility] [id number] 6352 Jun, Type 2 diabetes mellitus without complications E11.9 and 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 custodial use of antiplatelet drug Z79.02 [facility] [id number], [place] [address]- 5313 May, [facility] [address] 0192 May, Diabetes type 2, controlled E11.9 [facility] [address] [place] [address] 426826- 5096 Apr, Diabetes type 2, controlled E11.9 [facility] [id number] [place] [address] 07227- 8097 Mar, Diabetes type 2, controlled E11.9 ; Knee pain, right M25.561 ; Other chronic pain G89.29 and Medication monitoring encounter Z51.81 [facility] [id number] [place] [address] 17255- 3766 Feb, Type 2 diabetes mellitus without complications E11.9 ; High risk medication use Z79.899 and Anxiety F41.9 [facility] [id number] [place] [address] 00606- 1433 Jan, Diabetes 250.00 [facility] [id number] [place] [address] 07606- 6316 Dec, Diabetes 250.00 [facility] [id number] [place] [address] 407321- 0776 Nov, Diabetes 250.00 [facility] [address], [place] [address]- 1096 Nov, [facility] [id number] [place] [address] 12060- 6064 Oct, Diabetes mellitus type 1 250.01 and High risk medication use V58.69 [facility] [id number] [place] [address] 056146- 6436 Oct, [facility] [address] 7626 September, [facility] [id number] [place] [address] 455335- 7957 Aug, [facility] [place] [facility] [address] [id number] [place] [address]- 2690 Aug, [facility] [place] [facility] [address] [id number] [place] [address]- 4519 Jul, [facility] [place] [facility] [address] [id number] [place] [address]- 2525 Jul, [facility] [place] [facility] [address] [id number] [place] [address]- 4633 Jun, [facility] [place] [facility] [address] [id number] [place] [address]- 9756 Jun, [facility] [place] [facility] [address] [id number] [place] [address]- 4920 Jun, [facility] [place] [facility] [address] [id number] [place] [address]- 2138 May, [facility] [place] [facility] [address] [id number] [place] [address]- 2217 May, [facility] [place] [facility] [address] [id number] [place] [address]- 1337 Apr, [facility] [place] [facility] [address] [id number] [place] [address]- 2044 Apr, [facility] [place] [facility] [address] [id number] [place] [address]- 4339 Apr, [facility] [place] [facility] [address] [id number] [place] [address]- 1718 Apr, [facility] [place] [facility] [address] [id number] [place] [address]- 1443 Apr, [facility] [place] [facility] [address] [id number] [place] 6608 Apr, [facility] [place] [facility] [address] [id number] [place] [address]- 1238 Feb, [facility] [place] [facility] [address] [id number] [place] [address]- 2049 Feb, [facility] [place] [facility] [address] [id number] [place] [address]- 3308 Feb, [facility] [place] [facility] [address] [id number] [place] [address]- 8373 Feb, [facility] [place] [facility] [address] [id number] [place] [address]- 2004 Dec, [facility] [place] [facility] [address] [id number] [place] [address]- 8319 Dec, [facility] [place] [facility] [address] [id number] [place] [address]- 4653 Nov, [facility] [place] [facility] [address] [id number] [place] [address]- 7248 Nov, [facility] [place] [facility] [address] [id number] [place] [address]- 1505 Oct, [facility] [place] [facility] [address] [id number] [place] [address]- 9556 Oct, [facility] [place] [facility] [address] [id number] [place] [address]- 4889 Oct, [facility] [place] [facility] [address] [id number] [place] [address]- 5643 Oct, [facility] [place] [facility] [address] [id number] [place] [address]- 3562 Oct, [facility] [place] [facility] [address] [id number] [place] [address]- 8602 Oct, [facility] [place] [facility] [address] [id number] [place] [address]- 8080 September, [facility] [place] [facility] [address] [id number] [place] [address]- 0658 September, [facility] [place] [facility] [address] [id number] [place] [address]- 9942 September, [facility] [place] [facility] [address] [id number] [place] [address]- 1936 September, [facility] [place] [facility] [address] [id number] [place] [address]- 3974 September, [facility] [place] [facility] [address] [id number] [place] [address]- 8595 September, [facility] [place] [facility] [address] [id number] [place] [address]- 8020 Aug, [facility] [place] [facility] [address] [id number] [place] [address]- 9923 Aug, [facility] [place] [facility] [address] [id number] [place] [address]- 8020 Aug, [facility] [place] [facility] [address] [id number] [place] [address]- 8931 Aug, [facility] [place] [facility] [address] [id number] [place] [address]- 8267 Aug, [facility] [place] [facility] [address] [id number] [place] [address]- 2632 Aug, [facility] [place] [facility] [address] [id number] [place] [address]- 9462 Jul, [facility] [place] [facility] [address] [id number] [place] [address]- 9554 Jul, [facility] [place] [facility] [address] [id number] [place] [address]- 2130 Jul, [facility] [place] [facility] [address] [id number] [place] [address]- 6893 Jul, [facility] [place] [facility] [address] [id number] [place] [address]- 8403 May, [facility] [place] [facility] [address] [id number] [place] [address]- 5244 May, [facility] [place] [facility] [address] [id number], [place] [address]- 0255 Apr, [facility] [place] [facility] [address] [id number] [place] [address]- 7707 Apr, [facility] [place] [facility] [address] [id number], [place] [address]- 1198 Apr, [facility] [place] [facility] [address] [id number] [place] [address]- 1966 Apr, [facility] [place] [facility] [address] [id number] [place] [address]- 3765 Apr, [facility] [place] [facility] [address] [id number] [place] [address]- 3488 Apr, [facility] [place] [facility] [address] [id number] [place] [address]- 3921 Feb, [facility] [place] [facility] [address] [id number], [place] [address]- 9417 Feb, [facility] [place] [facility] [address] [id number], [place] [address]- 7967 Feb, [facility] [place] [facility] [address] [id number] 3073 Feb, [facility] [place] [facility] [address] [id number], [place] [address]- 8773 Feb, [facility] [place] [facility] [address] [id number], [place] [address]- 5067 Feb, [facility] [place] [facility] [address] [id number], [place] [address]- 5698 Feb, [facility] [place] [facility] [address] [id number], [place] [address]- 8990 Feb, [facility] [place] [facility] [address] [id number], [place] [address]- 0150 Jan, [facility] [place] [facility] [address] [id number] [place] [address] 2540 Jan, [facility] [place] [facility] [address] [id number] [place] [address]- 2821 Jan, [facility] [address] [id number] [place] [address]- 2781 Jan, [facility] [address] [id number] [place] [address]- 5126 Dec, [facility] [address] [id number] [place] [address]- 3866 Dec, [facility] [address] [id number] [place] [address]- 8637 Dec, [facility] [address] [id number] [place] [address]- 8004 Nov, [facility] [address] [id number] [place] [address]- 2898 Nov, [facility] [address] [id number] [place] [address]- 7736 Oct, [facility] [address] [id number] [place] [address]- 0470 September, [facility] [address] [id number] [place] [address]- 4279 September, [facility] [address] [id number] [place] [address]- 4577 September, [facility] [address] [id number] [place] [address]- 6171 Aug, [facility] [address] [id number] [place] [address] 16 Aug, 2012 [facility] [address] [id number] [place] [address] 15 Aug, 2012 [facility] [address] [id number] [place] [address] Jul, [facility] [address] [id number] [place] [address] Jul, [facility] [address] [id number] [place] [address] Jun, [facility] [place] [facility] [address] [id number] [place] [address] Jun, [facility] [place] [facility] [address] [id number] [place] [address] Jun, [facility] [place] [facility] [address] [id number] [place] [address] Jun, [facility] [place] [facility] [address] [id number] [place] [address] May, [facility] [place] [facility] [address] [id number] [place] [address] May, [facility] [place] [facility] [address] [id number] [place] [address] Apr, [facility] [place] [facility] [address] [id number] [place] [address] Apr, [facility] [place] [facility] [address] [id number] [place] [address] Apr, [facility] [place] [facility] [address] [id number] [place] [address] Apr, [facility] [place] [facility] [address] [id number] [place] [address] Apr, [facility] [place] [facility] [address] [id number], [place] [address] Apr, [facility] [place] [facility] [address] [id number] [place] [address] Mar, [facility] [place] [facility] [address] [id number] [place] [address] Mar, [facility] [place] [facility] [address] [id number] [place] [address] Mar, [facility] [place] [facility] [address] [id number] [place] [address] Mar, [facility] [place] [facility] [address] [id number] [place] [address] Mar, [facility] [place] [facility] [address] [id number] [place] [address] Mar, [facility] [place] [facility] [address] [id number] [place] [address] Feb, [facility] [place] [facility] [address] [id number] [place] [address] Feb, [facility] [place] [facility] [address] [id number] [place] [address] Feb, [facility] [place] [facility] [address] [id number] [place] [address] Feb, [facility] [place] [facility] [address] [id number] [place] [address] Feb, [facility] [place] [facility] [address] [id number] [place] [address] Jan, [facility] [place] [facility] [address] [id number] [place] [address] 06 Jan, 2012 [facility] [place] [facility] [address] [facility] [id number] [place] [address] 06 Jan, 2012 [facility] [place] [facility] [address] [id number] [place] [address] Dec, [facility] [place] [facility] [address] [id number] [place] [address] Dec, [facility] [place] [facility] [address] [id number] [place] [address] Nov, [facility] [place] [facility] [address] [id number] [place] [address] Oct, [facility] [place] [facility] [address] [id number] [place] [address] Oct, [facility] [place] [facility] [address] [id number] [place] [address] Oct, [facility] [place] [facility] [address] [id number] [place] [address] Oct, [facility] [place] [facility] [address] [id number] [place] [address] Oct, [facility] [place] [facility] [address] [id number] [place] [address] September, [facility] [address] [id number] [place] [address] Aug, [facility] [place] [facility] [address] [id number] [place] [address] Aug, [facility] [address] [id number] [place] [address] Aug, [facility] [address] [id number] [place] [address] 16 Aug, 2011 [facility] [place] [facility] [address] [id number] [place] [address] Aug, [facility] [place] [facility] [address] [id number] [place] [address] Aug, [facility] [place] [facility] [address] [id number] [place] [address] Aug, [facility] [place] [facility] [address] [id number] [place] [address] Aug, [facility] [place] [facility] [address] [id number] [place] [address] Aug, [facility] [place] [facility] [address] [id number] [place] [address] Jul, [facility] [place] [facility] [address] [id number] [place] [address] Jul, [facility] [place] [facility] [address] [id number] [place] [address] 20 Jul, 2011 [facility] [address] [id number] [place] [address] 17 Jul, 2011 [facility] [address] [id number] [place] [address]76 08 Jul, 2011 [facility] [address] [id number] [place] [address] 15 Jun, 2011 [facility] [place] [facility] [address] [id number] [place] [address] 14 Jun, 2011 [facility] [address] [id number] [place] [address]26 08 Jun, 2011 [facility] [address] [id number] [place] [address]- [address] 08 Jun, 2011 [facility] [address] [id number] [place] [address] May, [facility] [address] [id number] [place] [address] May, [facility] [address] [id number] [place] [address] May, [facility] [address] [id number] [place] [address] May, [facility] [address] [id number] [place] [address] May, [facility] [place] [facility] [address] [id number] [place] [address]26 May, [facility] [place] [facility] [address] [id number] [place] [address] May, [facility] [place] [facility] [address] [id number] [place] [address]686 Apr, [facility] [place] [facility] [address] [id number] [place] [address] Apr, [facility] [place] [facility] [address] [id number] [place] [address] 13 Apr, 2011 [facility] [place] [facility] [address] [id number] [place] [address] Apr, [facility] [place] [facility] [address] [id number] [place] [address] Apr, [facility] [place] [facility] [address] [id number] [place] [address]89 Apr, [facility] [place] [facility] [address] [id number] [place] [address] Apr, [facility] [place] [facility] [address] [id number] [place] [address] Apr, [facility] [place] [facility] [address] [id number] [place] [address] Apr, [facility] [place] [facility] [address] [id number] [place] [address] Apr, [facility] [place] [facility] [address] [id number] [place] [address] Mar, [facility] [place] [facility] [address] [id number] [place] [address] Mar, [facility] [place] [facility] [address] [id number] [place] [address] Feb, [facility] [place] [facility] [address] [id number] [place] [address] Jun, [facility] [place] [facility] [address] [id number] [place] [address] Apr, [facility] [place] [facility] [address] [id number] [place] [address] 9380 Feb, [facility] [place] [facility] [address] [id number] [place] [address] Feb, [facility] [place] [facility] [address] [id number] [place] [address] Feb, [facility] [address] [id number] [address] Apr, [facility] [address] [facility] [id number], [place] [address] Apr, [facility] [address] [id number], [place] [address] Mar, [facility] [address] [facility] [id number], [place] [address] Mar, [facility] [id number], [place] [address] Mar, [facility] [id number], [place] [address] Feb, [facility] [id number], [place] [address] Feb, [facility] [address] [id number], [place] [address] Feb, [facility] [address] [id number], [place] [address] Jan, IMMUNIZATIONS No Known Immunizations SOCIAL HISTORY Never Assessed REASON FOR VISIT Controlled Med Refill PLAN OF CARE VITAL SIGNS MEDICATIONS Medication Instructions Dosage Frequency Start Date End Date Duration Status Clonazepam 1 MG Orally 3 times a day 1 tablet 8h 24 Jun, 2014 28 days Active Dodson 5-325 MG Orally every 6 hrs 1 tablet 6h 15 Oct, 2017 28 days Active RESULTS No Results PROCEDURES [...]
[2018-04-28 05:27] LABS: ALBUMIN 4.1 GM/DL (3.2-4.5); BILIRUBIN,TOTAL 0.7 MG/DL (0.1-1.0); CALCIUM 8.8 MG/DL (8.5-10.1); CREATININE SERUM 1.55 MG/DL (0.60-1.30); POTASSIUM 4.1 MMOL/L (3.6-5.0); TOTAL PROTEIN 7.2 GM/DL (6.4-8.2)
--- OUTSIDE RECORDS SUMMARY | 2018-04-28 05:27 | XMS REPORT ---
Author Author MARLEY MCGRATH Organization [facility] Address [address] [place] [address] Care Team Providers Care Research Chief Engineer Name Role Phone MARLEY MCGRATH Unavailable PROBLEMS Type Condition ICD9-CM Code JGD57-XL Code Onset Dates Condition Status SNOMED Code Problem Hammertoe of right foot M20.41 Active 523040606 Problem Moderate episode of recurrent major depressive disorder F33.1 Active 489590669 Problem Hypertriglyceridemia E78.1 Active 548586641 Problem Other chronic pain G89.29 Active 29871966 Problem Memory loss R41.3 Active 793835332 Problem 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.01 Active 0334775 Problem Chronic fatigue R53.82 Active 99013868 Problem Controlled type 2 diabetes mellitus without complication, without long -term current use of insulin E11.9 Active 610428465 Problem Chronic major depressive disorder, recurrent episode F33.9 Active 05080676 Problem Knee pain, right M25.561 Active 80859741 Problem Diabetes type 2, controlled E11.9 Active 93306248 Problem Type 2 diabetes mellitus without complications E11.9 Active 806773076 Problem Hypogonadism in male E29.1 Active 78367840 Problem penitentiary (current) use of anticoagulants Z79.01 Active 512293652 ALLERGIES No Information ENCOUNTERS Encounter Location Date Diagnosis [facility] [id number], [place] [address] Dec, Hypogonadism in male E29.1 [facility] [id number], [place] [address] Dec, [facility] [id number], [place] [address] Nov, Hypogonadism in male E29.1 [facility] [id number], [place] [address] Nov, Type 2 diabetes mellitus without complications E11.9 and History of Coumadin therapy Z92.29 [facility] [address] [facility] [id number] [place] [address] 2546 18 Nov, 2017 Medicare welcome exam Z00.00 [facility] [address] [facility] [id number], [place] [address] 2546 Nov, Type 2 diabetes mellitus without complications E11.9 ; History of Coumadin therapy Z92.29 and Hypogonadism in male E29.1 [facility] [address] [facility] [id number] [place] [address] 2546 Nov, [facility] [address] [facility] [id number] [place] [address] 3966 Oct, [facility] [address] [facility] [id number] [place] [address] 2546 Oct, Diabetes type 2, controlled E11.9 [facility] [address] [facility] [id number], [place] [address] 2546 Oct, Medicare welcome exam Z00.00 [facility] [address] [facility] [id number] [place] [address] 2546 Oct, Hypogonadism in male E29.1 [facility] [address] [facility] [id number] [place] [address] Oct, [facility] [address] [facility] [id number], [place] [address] September, Hypogonadism in male E29.1 [facility] [address] [facility] [id number], [place] [address] September, Medicare welcome exam Z00.00 [facility] [address] [facility] [id number], [place] [address] September, Hypogonadism in male E29.1 [facility] [address] [facility] [id number], [place] [address] Aug, Other chronic pain G89.29 ; Memory loss R41.3 ; Controlled type 2 diabetes mellitus without complication, without long-term current use of insulin E11.9 and Chronic major depressive disorder, recurrent episode F33.9 [facility] [id number] [place] [address]- 8361 11 Aug, 2017 Medicare welcome exam Z00.00 [facility] [address], [place] [address] 09 Aug, 2017 [facility] [id number] [place] [address] Aug, Hypogonadism in male E29.1 [facility] [id number] [place] [address] 99876- 6619 Jul, [facility] [id number] [place] [address] 93755- 4454 Jul, Hypogonadism in male E29.1 [facility] [id number] [place] [address] 66470- 0633 Jul, [facility] [id number] [place] [address]26 -1563 Jul, Hypogonadism in male E29.1 [facility] [id number] [place] [address] 27233- 1740 Jul, Medicare welcome exam Z00.00 [facility] [address], [place] [address] 22 Jun, 2017 Medicare welcome exam Z00.00 [facility] [address], [place] [address] 19 Jun, 2017 Fever R50.9 and Influenza B J10.1 [facility] [address] [id number], [place] [address] 13 Jun, 2017 Hypogonadism in male E29.1 [facility] [address], [place] [address] 9[address] 09 Jun, 2017 Diabetes type 2, controlled E11.9 [facility] [address], [place] [address] 69[address] May, Hypogonadism in male E29.1 [facility] [address] [id number], [place] [address] 2546 May, penitentiary (current) use of anticoagulants Z79.01 [facility] [address], [place] [address] 2546 Apr, Hypogonadism in male E29.1 [facility] [address] [id number], [place] [address] 2547 Apr, [facility] [id number] [place] [address] 23173- 6097 Apr, Medicare welcome exam Z00.00 and 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 Z79.01 [facility] [address] [id number], [place] [address]99 Apr, Hypogonadism in male E29.1 [facility] [address], [place] [address] Mar, Diabetes type 2, controlled E11.9 [facility] [id number], [place] [address] 34[address] Mar, Hypogonadism in male E29.1 [facility] [address], [place] [address]- 0685 Mar, Hypogonadism in male E29.1 [facility] [address], [place] [address]- 6[address] Feb, Hypogonadism in male E29.1 [facility] [id number], [place] [address] 3315 13 Feb, 2017 Malaise R53.81 [facility] [address], [place] [address] 99[address] Feb, [facility] [id number], [place] [address] Feb, Diabetes type 2, controlled E11.9 [facility] [id number] [place] [address] 48079- 4730 Feb, Chronic fatigue R53.82 ; Malaise R53.81 and Moderate episode of recurrent major depressive disorder F33.1 [facility] [id number] [place] [address] 84985- 1696 Jan, Diabetes type 2, controlled E11.9 [facility] [id number] [place] [address]4091 2548 Jan, 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.01 and 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 Z79.01 [facility] [id number] [place] [address] 83009- 5471 Dec, Diabetes type 2, controlled E11.9 and Hypertriglyceridemia E78.1 [facility] [id number] [place] [address] 38300- 4559 Dec, Diabetes type 2, controlled E11.9 [facility] [id number] [place] [address] 00736- 1222 Dec, High risk medication use Z79.899 and 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 Z79.01 [facility] [address] [place] [address] 03884- 9208 Dec, High risk medication use Z79.899 [facility] [id number] [place] [address] 77884- 6578 Nov, Diabetes type 2, controlled E11.9 [facility] [id number] [place] [address] 98188- 7485 Oct, Diabetes type 2, controlled E11.9 [facility] [id number] [place] [address] 39035- 4244 September, Diabetes type 2, controlled E11.9 [facility] [id number] [place] [address] 05216- 8634 Aug, 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 Z79.01 [facility] [facility] [id number] [place] [address] 47280- 7476 Aug, 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 Z79.01 and Hematoma of arm, right, initial encounter S40.021A [facility] [facility] [address] [address]- [address]197 Aug, [facility] [address] [address] 18 Aug, 2016 Cellulitis of right upper extremity L03.113 [place] [facility] [address] 90771- 0085 14 Aug, 2016 Diabetes type 2, controlled E11.9 [place] [facility] [address] 42793- 6932 Aug, Hammertoe of right foot M20.41 ; Hallux abducto valgus, left M20.12 and Onychomycosis B35.1 [place] [facility] [address] [address]- 7410 Aug, 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 Z79.01 [place] [facility] [address] 65118- 7324 Aug, penitentiary (current) use of anticoagulants Z79.01 [facility] [facility] [id number] [place] [address] 28422- 1907 Aug, 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 Z79.01 [facility] [id number] [place] [address] 76953 -0809 Aug, Right shoulder pain M25.511 and Closed nondisplaced fracture of acromial end of right clavicle, initial encounter S42.034A [place] [facility] [address] 66055- 5690 16 Jul, 2016 Diabetes type 2, controlled E11.9 [place] [facility] [address] [place] [address]- 8103 Jun, Diabetes type 2, controlled E11.9 and penitentiary (current) use of anticoagulants Z79.01 [facility] [address], [place] [address]- 7633 May, [facility] [id number] [place] [address] 71819- 6199 Apr, [facility] [id number] [place] [address] 79964- 7023 Mar, [facility] [id number] [place] [address] 24306- 0051 Feb, [facility] [id number] [place] [address] 98965- 3631 Dec, Diabetes type 2, controlled E11.9 [facility] [id number] [place] [address] 66377- 9263 Dec, [facility] [address], [place] [address]- 0917 Nov, [facility] [address] [place] [address] 33561- 6691 Nov, Type 2 diabetes mellitus without complications E11.9 [facility] [address], [place] [address]- 1711 Oct, Type 2 diabetes mellitus without complications E11.9 [facility] [address], [place] [address]- 6765 Aug, [facility] [address] [place] [address] 27819- 9451 Aug, Type 2 diabetes mellitus without complications E11.9 [facility] [address] 9966 Jun, Type 2 diabetes mellitus without complications E11.9 and 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 fpc use of antiplatelet drug Z79.02 [facility] [id number] [place] [address] 66497- 0904 May, [facility] [address] [place] [address] 25618- 6949 May, Diabetes type 2, controlled E11.9 [facility] [id number] [place] [address] 03528- 2776 Apr, Diabetes type 2, controlled E11.9 [facility] [id number] [place] [address] 61822- 9369 Mar, Diabetes type 2, controlled E11.9 ; Knee pain, right M25.561 ; Other chronic pain G89.29 and Medication monitoring encounter Z51.81 [facility] [id number] [place] [address] 32067- 1252 Feb, Type 2 diabetes mellitus without complications E11.9 ; High risk medication use Z79.899 and Anxiety F41.9 [facility] [id number] [place] [address] 47296- 6699 Jan, Diabetes 250.00 [facility] [id number] [place] [address] 15849- 8860 Dec, Diabetes 250.00 [facility] [id number] [place] [address] 86793- 6614 Nov, Diabetes 250.00 [facility] [id number] [place] [address] 83195- 2182 Nov, [facility] [id number] [place] [address] 92987- 6292 Oct, Diabetes mellitus type 1 250.01 and High risk medication use V58.69 [facility] [id number] [place] [address] 26390- 9676 Oct, [facility] [id number] [place] [address] 03588- 8477 September, [facility] [id number] [place] [address] 16394- 7574 Aug, [facility] [place] [facility] [address] [id number] [place] [address]- 4040 13 Aug, 2014 [facility] [place] [facility] [address] [id number] [place] [address]- 7373 Jul, [facility] [place] [facility] [address] [id number] [place] [address]- 0016 Jul, [facility] [place] [facility] [address] [id number] [place] [address]- 2857 Jun, [facility] [place] [facility] [address] [id number] [place] [address]- 4318 Jun, [facility] [place] [facility] [address] [id number] [place] [address]- 7036 Jun, [facility] [place] [facility] [address] [id number] [place] [address]- 6002 May, [facility] [place] [facility] [address] [id number] [place] [address]- 1489 May, [facility] [place] [facility] [address] [id number] [place] [address]- 6580 Apr, [facility] [place] [facility] [address] [id number] [place] [address]- 2740 Apr, [facility] [place] [facility] [address] [id number] [place] [address]- 5149 Apr, [facility] [place] [facility] [address] [id number] [place] [address]- 9247 Apr, [facility] [place] [facility] [address] [id number] [place] [address] 2546 Apr, [facility] [place] [facility] [address] [id number] [place] 6616 Apr, [facility] [place] [facility] [address] [id number] [place] [address]- 4293 31 Feb, 2014 [facility] [place] [facility] [address] [id number] [place] [address]- 2408 Feb, [facility] [place] [facility] [address] [id number] [place] [address]- 8772 Feb, [facility] [place] [facility] [address] [id number] [place] [address]- 3281 Feb, [facility] [place] [facility] [address] [id number] [place] [address]- 1182 Dec, [facility] [place] [facility] [address] [id number] [place] [address]- 1742 Dec, [facility] [place] [facility] [address] [id number] [place] [address]- 2274 Nov, [facility] [place] [facility] [address] [id number] [place] [address]- 0560 Nov, [facility] [place] [facility] [address] [id number] [place] [address]- 5618 Oct, [facility] [place] [facility] [address] [id number] [place] [address]- 6110 Oct, [facility] [place] [facility] [address] [id number] [place] [address]- 5283 Oct, [facility] [place] [facility] [address] [id number] [place] [address]- 2429 Oct, [facility] [place] [facility] [address] [id number] [place] [address]- 2686 Oct, [facility] [place] [facility] [address] [id number] [place] [address]- 9746 Oct, [facility] [place] [facility] [address] [id number] [place] [address]- 6305 September, [facility] [place] [facility] [address] [id number] [place] [address]- 0712 September, [facility] [place] [facility] [address] [id number] [place] 2384 September, [facility] [place] [facility] [address] [id number] [place] [address]- 1078 September, [facility] [place] [facility] [address] [id number] [place] 3692 September, [facility] [place] [facility] [address] [id number] [place] [address]- 2257 September, [facility] [place] [facility] [address] [id number] [place] [address]- 8999 Aug, [facility] [place] [facility] [address] [id number] [place] [address]- 5683 Aug, [facility] [place] [facility] [address] [id number] [place] [address]- 9167 Aug, [facility] [place] [facility] [address] [id number] [place] [address]- 8189 Aug, [facility] [place] [facility] [address] [id number] [place] [address]- 7788 Aug, [facility] [place] [facility] [address] [id number] [place] [address]- 1206 Aug, [facility] [place] [facility] [address] [id number] [place] [address]- 4314 Jul, [facility] [place] [facility] [address] [id number] [place] [address]- 0774 Jul, [facility] [place] [facility] [address] [id number] [place] [address]- 5263 Jul, [facility] [place] [facility] [address] [id number] [place] [address]- 0677 Jul, [facility] [place] [facility] [address] [id number] [place] [address]- 9830 May, [facility] [place] [facility] [address] [id number] [place] [address]- 3908 May, [facility] [place] [facility] [address] [id number] [place] [address]- 5456 Apr, [facility] [address] [id number] [place] [address]- 0337 Apr, [facility] [place] [facility] [address] [id number], [place] [address]- 2546 Apr, [facility] [place] [facility] [address] [facility] [id number] [place] [address]- 2546 Apr, [facility] [place] [facility] [address] [id number], [place] [address]- 2547 Apr, [facility] [place] [facility] [address] [id number] [place] [address]- 2541 Apr, [facility] [place] [facility] [address] [id number], [place] [address]- 7174 Feb, [facility] [place] [facility] [address] [id number], [place] [address]- 7986 Feb, [facility] [place] [facility] [address] [id number], [place] [address]- 4808 Feb, [facility] [place] [facility] [address] [id number], [place] [address]- 8664 Feb, [facility] [place] [facility] [address] [id number], [place] [address]- 9300 Feb, [facility] [place] [facility] [address] [id number], [place] [address] 2541 Feb, [facility] [place] [facility] [address] [id number], [place] [address]- 2543 Feb, [facility] [place] [facility] [address] [id number], [place] [address]- 2540 Feb, [facility] [place] [facility] [address] [id number], [place] [address] 2549 Jan, [facility] [place] [facility] [address] [id number], [place] [address]- 2546 Jan, [facility] [place] [facility] [address] [id number] [place] [address]- 4757 Jan, [facility] [address] [id number] [place] [address]- 9592 Jan, [facility] [address] [id number] [place] [address]- 6149 Dec, [facility] [address] [id number] [place] [address]- 6137 Dec, [facility] [address] [id number] [place] [address]- 6096 Dec, [facility] [address] [id number] [place] [address]- 1056 Nov, [facility] [address] [id number] [place] [address]- 9909 Nov, [facility] [address] [id number] [place] [address]- 9536 Oct, [facility] [address] [id number] [place] [address]- 5856 September, [facility] [address] [id number] [place] [address]- 3234 September, [facility] [address] [id number] [place] [address]- 2187 September, [facility] [address] [id number] [place] [address]- 5355 Aug, [facility] [address] [id number] [place] [address]- 9833 16 Aug, 2012 [facility] [place] [facility] [address] [id number] [place] [address]- 2658 15 Aug, 2012 [facility] [place] [facility] [address] [id number] [place] [address]- 4485 Jul, [facility] [address] [id number] [place] [address]- 0332 Jul, [facility] [place] [facility] [address] [id number] [place] [address]- 2610 Jun, [facility] [place] [facility] [address] [id number] [place] [address]- 7446 Jun, [facility] [place] [facility] [address] [id number] [place] [address] 2546 Jun, [facility] [place] [facility] [address] [id number] [place] [address] 2546 Jun, [facility] [place] [facility] [address] [id number] [place] [address]- 1405 May, [facility] [place] [facility] [address] [id number] [place] [address] May, [facility] [place] [facility] [address] [id number] [place] [address] Apr, [facility] [place] [facility] [address] [id number] [place] [address] Apr, [facility] [place] [facility] [address] [id number] [place] [address] Apr, [facility] [place] [facility] [address] [id number] [place] [address] Apr, [facility] [place] [facility] [address] [id number] [place] [address] Apr, [facility] [place] [facility] [address] [id number] [place] [address] Apr, [facility] [place] [facility] [address] [id number] [place] [address] Mar, [facility] [place] [facility] [address] [id number] [place] [address] 2546 Mar, [facility] [place] [facility] [address] [id number] [place] [address] Mar, [facility] [place] [facility] [address] [id number] [place] [address] Mar, [facility] [place] [facility] [address] [id number] [place] [address] Mar, [facility] [place] [facility] [address] [id number] [place] [address] Mar, [facility] [place] [facility] [address] [id number] [place] [address] Feb, [facility] [place] [facility] [address] [id number] [place] [address] Feb, [facility] [place] [facility] [address] [id number] [place] [address], [place] [address]- [address] Feb, [facility] [place] [facility] [address] [id number] [place] [address] Feb, [facility] [place] [facility] [address] [id number] [place] [address] Feb, [facility] [place] [facility] [address] [id number] [place] [address] Jan, [facility] [place] [facility] [address] [id number] [place] [address] Jan, [facility] [place] [facility] [address] [id number] [place] [address] Jan, [facility] [place] [facility] [address] [id number] [place] [address] Dec, [facility] [place] [facility] [address] [id number] [place] [address] Dec, [facility] [place] [facility] [address] [id number] [place] [address] Nov, [facility] [place] [facility] [address] [id number] [place] [address] Oct, [facility] [place] [facility] [address] [id number] [place] [address] Oct, [facility] [place] [facility] [address] [id number] [place] [address] Oct, [facility] [place] [facility] [address] [id number] [place] [address] Oct, [facility] [place] [facility] [address] [id number] [place] [address] Oct, [facility] [place] [facility] [address] [id number] [place] [address] September, [facility] [place] [facility] [address] [id number] [place] [address] Aug, [facility] [place] [facility] [address] [id number] [place] [address] 18 Aug, 2011 [facility] [place] [facility] [address] [id number] [place] [address] 17 Aug, 2011 [facility] [place] [facility] [address] [id number] [place] [address] 16 Aug, 2011 [facility] [place] [facility] [address] [id number] [place] [address] 13 Aug, 2011 [facility] [place] [facility] [address] [id number] [place] [address] Aug, [facility] [place] [facility] [address] [id number] [place] [address] Aug, [facility] [place] [facility] [address] [id number] [place] [address] Aug, [facility] [place] [facility] [address] [id number] [place] [address] Aug, [facility] [place] [facility] [address] [id number] [place] [address] Jul, [facility] [place] [facility] [address] [id number] [place] [address] Jul, [facility] [place] [facility] [address] [id number] [place] [address] 20 Jul, 2011 [facility] [address] [id number] [place] [address] 17 Jul, 2011 [facility] [place] [facility] [address] [id number] [place] [address] 08 Jul, 2011 [facility] [place] [facility] [address] [id number] [place] [address] 15 Jun, 2011 [facility] [place] [facility] [address] [id number] [place] [address] 14 Jun, 2011 [facility] [place] [facility] [address] [id number] [place] [address] 08 Jun, 2011 [facility] [place] [facility] [address] [id number] [place] [address] 08 Jun, 2011 [facility] [address] [id number] [place] [address] May, [facility] [place] [facility] [address] [id number] [place] [address] May, [facility] [place] [facility] [address] [id number] [place] [address] May, [facility] [place] [facility] [address] [id number] [place] [address] May, [facility] [place] [facility] [address] [id number] [place] [address] May, [facility] [place] [facility] [address] [id number] [place] [address] May, [facility] [place] [facility] [address] [id number] [place] [address] May, [facility] [place] [facility] [address] [id number] [place] [address] Apr, [facility] [place] [facility] [address] [id number] [place] [address] Apr, [facility] [place] [facility] [address] [id number] [place] [address]- 1780 13 Apr, 2011 [facility] [address] [id number] [place] [address] Apr, [facility] [address] [id number] [place] [address] Apr, [facility] [address] [id number] [place] [address] Apr, [facility] [address] [id number] [place] [address] 4739 Apr, [facility] [address] [id number] [place] [address] Apr, [facility] [address] [id number] [place] [address] 78[address] Apr, [facility] [address] [id number] [place] [address] 79[address] Apr, [facility] [address] [id number] [place] [address] Mar, [facility] [address] [id number] [place] [address] Mar, [facility] [address] [id number] [place] [address] Feb, [facility] [address] [id number] [place] [address] Jun, [facility] [address] [id number] [place] [address]287 Apr, [facility] [place] [facility] [address] [id number] [place] [address] Feb, [facility] [place] [facility] [address] [id number] [place] [address] Feb, [facility] [place] [facility] [address] [id number] [place] [address] Feb, [facility] [address] [id number] [address] Apr, [facility] [address] [facility] [id number], [place] [address] Apr, [facility] [id number], [place] [address] Mar, [facility] [id number], [place] [address] Mar, [facility] [id number], [place] [address] Mar, [facility] [id number], [place] [address] Feb, [facility] [id number], [place] [address] Feb, [facility] [id number], [place] [address] Feb, [facility] [address] [id number], [place] [address] Jan, IMMUNIZATIONS No Known Immunizations SOCIAL HISTORY Never Assessed REASON FOR VISIT PLAN OF CARE VITAL SIGNS MEDICATIONS Unknown [...]
--- OUTSIDE RECORDS SUMMARY | 2018-04-28 05:28 | XMS REPORT ---
Author Author MARLEY MCGRATH Organization [facility] Address [address] [place] [address] Care Team Providers Care Stockroom Clerk Name Role Phone MARLEY MCGRATH Unavailable PROBLEMS Type Condition ICD9-CM Code LDU61-BY Code Onset Dates Condition Status SNOMED Code Problem Hammertoe of right foot M20.41 Active 202994883 Problem Moderate episode of recurrent major depressive disorder F33.1 Active 999478475 Problem Hypertriglyceridemia E78.1 Active 917266801 Problem Other chronic pain G89.29 Active 68212037 Problem Memory loss R41.3 Active 168920109 Problem 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.01 Active 7530850 Problem Chronic fatigue R53.82 Active 01398515 Problem Controlled type 2 diabetes mellitus without complication, without long -term current use of insulin E11.9 Active 111041376 Problem Chronic major depressive disorder, recurrent episode F33.9 Active 58896744 Problem Knee pain, right M25.561 Active 38349983 Problem Diabetes type 2, controlled E11.9 Active 81308849 Problem Type 2 diabetes mellitus without complications E11.9 Active 706604238 Problem Hypogonadism in male E29.1 Active 30016220 Problem jail (current) use of anticoagulants Z79.01 Active 650378359 ALLERGIES No Information ENCOUNTERS Encounter Location Date Diagnosis [facility] [address] [id number], [place] [address] Dec, Hypogonadism in male E29.1 [facility] [address] [id number], [place] [address] Dec, [facility] [address] [id number], [place] [address] Nov, Hypogonadism in male E29.1 [facility] [address] [id number], [place] [address] Nov, Type 2 diabetes mellitus without complications E11.9 and History of Coumadin therapy Z92.29 [facility] [address] [facility] [id number] [place] [address] 2546 18 Nov, 2017 Medicare welcome exam Z00.00 [facility] [address] [facility] [id number], [place] [address] 2546 Nov, Type 2 diabetes mellitus without complications E11.9 ; History of Coumadin therapy Z92.29 and Hypogonadism in male E29.1 [facility] [address] [facility] [id number] [place] [address] 2546 Nov, [facility] [address] [facility] [id number] [place] [address] 1636 Oct, [facility] [address] [facility] [id number] [place] [address] 2546 Oct, Diabetes type 2, controlled E11.9 [facility] [address] [facility] [id number], [place] [address] 2546 Oct, Medicare welcome exam Z00.00 [facility] [address] [facility] [id number] [place] [address] 2546 Oct, Hypogonadism in male E29.1 [facility] [address] [facility] [id number] [place] [address] Oct, [facility] [address] [facility] [id number], [place] [address] September, Hypogonadism in male E29.1 [facility] [address] [facility] [id number], [place] [address] September, Medicare welcome exam Z00.00 [facility] [address] [facility] [id number], [place] [address] September, Hypogonadism in male E29.1 [facility] [address] [facility] [id number], [place] [address] Aug, Other chronic pain G89.29 ; Memory loss R41.3 ; Controlled type 2 diabetes mellitus without complication, without long-term current use of insulin E11.9 and Chronic major depressive disorder, recurrent episode F33.9 [facility] [id number] [place] [address]- 3[address] 11 Aug, 2017 Medicare welcome exam Z00.00 [facility] [address], [place] [address] 09 Aug, 2017 [facility] [id number] [place] [address] Aug, Hypogonadism in male E29.1 [facility] [id number] [place] [address] 87064- 6503 Jul, [facility] [id number] [place] [address] 75459- 9176 Jul, Hypogonadism in male E29.1 [facility] [id number] [place] [address] 40990- 5404 Jul, [facility] [id number] [place] [address] 87118 -3717 Jul, Hypogonadism in male E29.1 [facility] [id number] [place] [address] 93369- 0561 Jul, Medicare welcome exam Z00.00 [facility] [address], [place] [address] 26[address] 22 Jun, 2017 Medicare welcome exam Z00.00 [facility] [address], [place] [address] 19 Jun, 2017 Fever R50.9 and Influenza B J10.1 [facility] [address] [id number], [place] [address] 13 Jun, 2017 Hypogonadism in male E29.1 [facility] [address], [place] [address] 3[address] 09 Jun, 2017 Diabetes type 2, controlled E11.9 [facility] [address], [place] [address] 20[address] May, Hypogonadism in male E29.1 [facility] [address] [id number], [place] [address] 2546 May, jail (current) use of anticoagulants Z79.01 [facility] [address], [place] [address] 2546 Apr, Hypogonadism in male E29.1 [facility] [address] [id number], [place] [address] 2548 Apr, [facility] [id number] [place] [address] 41540- 3554 Apr, Medicare welcome exam Z00.00 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 [facility] [address] [id number], [place] [address] Apr, Hypogonadism in male E29.1 [facility] [address], [place] [address] 1471 Mar, Diabetes type 2, controlled E11.9 [facility] [address] [id number], [place] [address] 4[address] Mar, Hypogonadism in male E29.1 [facility] [address], [place] [address]- 8[address] Mar, Hypogonadism in male E29.1 [facility] [address], [place] [address] 4[address] Feb, Hypogonadism in male E29.1 [facility] [address] [id number], [place] [address] 00[address] 13 Feb, 2017 Malaise R53.81 [facility] [address], [place] [address] 37[address] Feb, [facility] [address] [id number], [place] [address]- 1769 Feb, Diabetes type 2, controlled E11.9 [facility] [id number] [place] [address] 70925- 8784 Feb, Chronic fatigue R53.82 ; Malaise R53.81 and Moderate episode of recurrent major depressive disorder F33.1 [facility] [id number] [place] [address] 07812- 3386 Jan, Diabetes type 2, controlled E11.9 [facility] [id number] [place] [address] 28735 2540 Jan, 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.01 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 [address] [facility] [id number] [place] [address] 76955- 5986 Dec, Diabetes type 2, controlled E11.9 and Hypertriglyceridemia E78.1 [facility] [id number] [place] [address] 64174- 5773 Dec, Diabetes type 2, controlled E11.9 [facility] [id number] [place] [address] 20147- 4104 Dec, High risk medication use Z79.899 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 [facility] [id number] [place] [address] 53537- 8492 Dec, High risk medication use Z79.899 [address] [facility] [id number] [place] [address] 55492- 8008 Nov, Diabetes type 2, controlled E11.9 [facility] [id number] [place] [address] 36472- 4536 Oct, Diabetes type 2, controlled E11.9 [facility] [id number] [place] [address] 03040- 4663 September, Diabetes type 2, controlled E11.9 [facility] [id number] [place] [address] 64621- 9679 Aug, 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 [address] [id number] [place] [address] 28406- 9821 Aug, Hematoma of arm, right, initial encounter S40.021A and jail (current) use of anticoagulants Z79.01 [facility] [facility] [id number] [place] [address] 41359- 4450 Aug, [facility] [address] [address] Aug, Cellulitis of right upper extremity L03.113 [address] [address]34- 6[address] 14 Aug, 2016 Diabetes type 2, controlled E11.9 [address] [address] [address]- 60[address] Aug, Hammertoe of right foot M20.41 ; Hallux abducto valgus, left M20.12 and Onychomycosis B35.1 [address] 08935- 8339 Aug, 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 [address] [id number] [place] [address] 53687- 5416 Aug, jail (current) use of anticoagulants Z79.01 [place] [id number] [place] [address] 96843- 1154 Aug, 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 [facility] [id number] [place] [address] 28319 -5710 Aug, Right shoulder pain M25.511 and Closed nondisplaced fracture of acromial end of right clavicle, initial encounter S42.034A [address] [facility] [id number] [place] [address] 51875- 3607 Jul, Diabetes type 2, controlled E11.9 [address] [address] [place] [address]- 9987 Jun, Diabetes type 2, controlled E11.9 and jail (current) use of anticoagulants Z79.01 [facility] [address], [place] [address]- 1464 May, [facility] [id number] [place] [address] 67943- 5874 Apr, [facility] [id number] [place] [address] 68608- 9169 Mar, [facility] [id number] [place] [address] 92381- 3772 Feb, [facility] [id number] [place] [address] 57051- 5630 Dec, Diabetes type 2, controlled E11.9 [facility] [id number] [place] [address] 18526- 1419 Dec, [facility] [address], [place] [address]- 0127 Nov, [facility] [id number] [place] [address] 02101- 2320 Nov, Type 2 diabetes mellitus without complications E11.9 [facility] [address], [place] [address]- 9612 Oct, Type 2 diabetes mellitus without complications E11.9 [facility] [address], [place] [address]- 7920 Aug, [facility] [address] [place] [address] 01100- 2825 Aug, Type 2 diabetes mellitus without complications E11.9 [facility] [address] 3950 Jun, Type 2 diabetes mellitus without complications E11.9 and 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 longterm use of antiplatelet drug Z79.02 [facility] [id number] [place] [address] 16168- 0393 May, [facility] [id number] [place] [address] 18492- 9443 May, Diabetes type 2, controlled E11.9 [facility] [id number] [place] [address] 76993- 4586 Apr, Diabetes type 2, controlled E11.9 [facility] [id number] [place] [address] 26043- 3018 Mar, Diabetes type 2, controlled E11.9 ; Knee pain, right M25.561 ; Other chronic pain G89.29 and Medication monitoring encounter Z51.81 [facility] [id number] [place] [address] 02617- 0617 Feb, Type 2 diabetes mellitus without complications E11.9 ; High risk medication use Z79.899 and Anxiety F41.9 [facility] [id number] [place] [address] 94512- 7182 Jan, Diabetes 250.00 [facility] [id number] [place] [address] 16019- 3571 Dec, Diabetes 250.00 [facility] [id number] [place] [address] 30445- 6378 Nov, Diabetes 250.00 [facility] [id number] [place] [address] 61134- 8631 Nov, [facility] [id number] [place] [address] 54358- 4031 Oct, Diabetes mellitus type 1 250.01 and High risk medication use V58.69 [facility] [id number] [place] [address] 67353- 8813 Oct, [facility] [id number] [place] [address] 24309- 5908 September, [facility] [id number] [place] [address] 98883- 9248 Aug, [facility] [place] [facility] [address] [id number] [place] [address]- 2791 13 Aug, 2014 [facility] [place] [facility] [address] [id number] [place] [address]- 0812 Jul, [facility] [place] [facility] [address] [id number] [place] [address]- 5046 Jul, [facility] [place] [facility] [address] [id number] [place] [address]- 3251 Jun, [facility] [place] [facility] [address] [id number] [place] [address]- 3841 Jun, [facility] [place] [facility] [address] [id number] [place] [address]- 1236 Jun, [facility] [place] [facility] [address] [id number] [place] [address]- 4877 May, [facility] [place] [facility] [address] [id number] [place] [address]- 7971 May, [facility] [place] [facility] [address] [id number] [place] [address]- 6977 Apr, [facility] [place] [facility] [address] [id number] [place] [address]- 1618 Apr, [facility] [place] [facility] [address] [id number] [place] [address]- 1775 Apr, [facility] [place] [facility] [address] [id number] [place] [address]- 7289 Apr, [facility] [place] [facility] [address] [id number] [place] [address] 2546 Apr, [facility] [place] [facility] [address] [id number] [place] Apr, [facility] [place] [facility] [address] [id number] [place] [address]- 0481 31 Feb, 2014 [facility] [place] [facility] [address] [id number] [place] [address]- 1348 Feb, [facility] [place] [facility] [address] [id number] [place] [address]- 8106 Feb, [facility] [place] [facility] [address] [id number] [place] [address]- 5325 Feb, [facility] [place] [facility] [address] [id number] [place] [address]- 0247 Dec, [facility] [place] [facility] [address] [id number] [place] [address]- 4844 Dec, [facility] [place] [facility] [address] [id number] [place] [address]- 1065 Nov, [facility] [place] [facility] [address] [id number] [place] [address]- 0795 Nov, [facility] [place] [facility] [address] [id number] [place] [address]- 4364 Oct, [facility] [place] [facility] [address] [id number] [place] [address]- 1294 Oct, [facility] [place] [facility] [address] [id number] [place] [address]- 4325 Oct, [facility] [place] [facility] [address] [id number] [place] [address]- 7480 Oct, [facility] [place] [facility] [address] [id number] [place] [address]- 3615 Oct, [facility] [place] [facility] [address] [id number] [place] [address]- 6195 Oct, [facility] [place] [facility] [address] [id number] [place] [address]- 9859 September, [facility] [place] [facility] [address] [id number] [place] [address]- 7760 September, [facility] [place] [facility] [address] [id number] [place] 8388 September, [facility] [place] [facility] [address] [id number] [place] [address]- 9017 September, [facility] [place] [facility] [address] [id number] [place] 6392 September, [facility] [place] [facility] [address] [id number] [place] [address]- 6606 September, [facility] [place] [facility] [address] [id number] [place] [address]- 8797 Aug, [facility] [place] [facility] [address] [id number] [place] [address]- 3370 Aug, [facility] [place] [facility] [address] [id number] [place] [address]- 1800 Aug, [facility] [place] [facility] [address] [id number] [place] [address]- 1851 Aug, [facility] [place] [facility] [address] [id number] [place] [address]- 8300 Aug, [facility] [place] [facility] [address] [id number] [place] [address]- 9933 Aug, [facility] [place] [facility] [address] [id number] [place] [address]- 1997 Jul, [facility] [place] [facility] [address] [id number] [place] [address]- 8063 Jul, [facility] [place] [facility] [address] [id number] [place] [address]- 2261 Jul, [facility] [place] [facility] [address] [id number] [place] [address]- 7714 Jul, [facility] [place] [facility] [address] [id number] [place] [address]- 3141 May, [facility] [place] [facility] [address] [id number] [place] [address]- 4798 May, [facility] [place] [facility] [address] [id number] [place] [address]- 4050 Apr, [facility] [address] [id number] [place] [address]- 9337 Apr, [facility] [place] [facility] [address] [id number], [place] [address]- 2546 Apr, [facility] [place] [facility] [address] [facility] [id number] [place] [address]- 2546 Apr, [facility] [place] [facility] [address] [id number], [place] [address]- 2545 Apr, [facility] [place] [facility] [address] [id number] [place] [address]- 2548 Apr, [facility] [place] [facility] [address] [id number], [place] [address]- 7833 Feb, [facility] [place] [facility] [address] [id number], [place] [address]- 0988 Feb, [facility] [place] [facility] [address] [id number], [place] [address]- 8817 Feb, [facility] [place] [facility] [address] [id number], [place] [address]- 3843 Feb, [facility] [place] [facility] [address] [id number], [place] [address]- 4107 Feb, [facility] [place] [facility] [address] [id number], [place] [address] 2543 Feb, [facility] [place] [facility] [address] [id number], [place] [address]- 2541 Feb, [facility] [place] [facility] [address] [id number], [place] [address]- 2548 Feb, [facility] [place] [facility] [address] [id number], [place] [address] 2542 Jan, [facility] [place] [facility] [address] [id number], [place] [address]- 2546 Jan, [facility] [place] [facility] [address] [id number] [place] [address]- 7435 Jan, [facility] [address] [id number] [place] [address]- 3075 Jan, [facility] [address] [id number] [place] [address]- 4543 Dec, [facility] [address] [id number] [place] [address]- 6843 Dec, [facility] [address] [id number] [place] [address]- 0046 Dec, [facility] [address] [id number] [place] [address]- 0532 Nov, [facility] [address] [id number] [place] [address]- 1574 Nov, [facility] [address] [id number] [place] [address]- 9724 Oct, [facility] [address] [id number] [place] [address]- 4289 September, [facility] [address] [id number] [place] [address]- 0245 September, [facility] [address] [id number] [place] [address]- 0996 September, [facility] [address] [id number] [place] [address]- 5897 Aug, [facility] [address] [id number] [place] [address]- 7767 16 Aug, 2012 [facility] [place] [facility] [address] [id number] [place] [address]- 9318 15 Aug, 2012 [facility] [place] [facility] [address] [id number] [place] [address]- 0498 Jul, [facility] [address] [id number] [place] [address]- 8175 Jul, [facility] [place] [facility] [address] [id number] [place] [address]- 3588 Jun, [facility] [place] [facility] [address] [id number] [place] [address]- 8536 Jun, [facility] [place] [facility] [address] [id number] [place] [address] 2546 Jun, [facility] [place] [facility] [address] [id number] [place] [address] 2546 Jun, [facility] [place] [facility] [address] [id number] [place] [address]- 1135 May, [facility] [place] [facility] [address] [id number] [place] [address]- 2596 May, [facility] [place] [facility] [address] [id number] [place] [address] Apr, [facility] [place] [facility] [address] [id number] [place] [address] Apr, [facility] [place] [facility] [address] [id number] [place] [address] Apr, [facility] [place] [facility] [address] [id number] [place] [address] Apr, [facility] [place] [facility] [address] [id number] [place] [address] Apr, [facility] [place] [facility] [address] [id number] [place] [address] Apr, [facility] [place] [facility] [address] [id number] [place] [address] 2546 Mar, [facility] [place] [facility] [address] [id number] [place] [address] 2546 Mar, [facility] [place] [facility] [address] [id number] [place] [address] Mar, [facility] [place] [facility] [address] [id number] [place] [address] Mar, [facility] [place] [facility] [address] [id number] [place] [address] Mar, [facility] [place] [facility] [address] [id number] [place] [address] Mar, [facility] [place] [facility] [address] [id number] [place] [address] Feb, [facility] [place] [facility] [address] [id number] [place] [address] Feb, [facility] [place] [facility] [address] [id number] [place] [address], [place] [address] Feb, [facility] [place] [facility] [address] [id number] [place] [address]- [address] Feb, [facility] [place] [facility] [address] [id number] [place] [address]- 2015 Feb, [facility] [place] [facility] [address] [id number] [place] [address] Jan, [facility] [place] [facility] [address] [id number] [place] [address] Jan, [facility] [place] [facility] [address] [id number] [place] [address] Jan, [facility] [place] [facility] [address] [id number] [place] [address]- [address] Dec, [facility] [place] [facility] [address] [id number] [place] [address] Dec, [facility] [place] [facility] [address] [id number] [place] [address] Nov, [facility] [place] [facility] [address] [id number] [place] [address] Oct, [facility] [place] [facility] [address] [id number] [place] [address]- [address] Oct, [facility] [place] [facility] [address] [id number] [place] [address]- [address] Oct, [facility] [place] [facility] [address] [id number] [place] [address] Oct, [facility] [place] [facility] [address] [id number] [place] [address] Oct, [facility] [place] [facility] [address] [id number] [place] [address] September, [facility] [place] [facility] [address] [id number] [place] [address] Aug, [facility] [place] [facility] [address] [id number] [place] [address] 18 Aug, 2011 [facility] [place] [facility] [address] [id number] [place] [address] 17 Aug, 2011 [facility] [place] [facility] [address] [id number] [place] [address] 16 Aug, 2011 [facility] [place] [facility] [address] [id number] [place] [address] 13 Aug, 2011 [facility] [place] [facility] [address] [id number] [place] [address] Aug, [facility] [place] [facility] [address] [id number] [place] [address] Aug, [facility] [place] [facility] [address] [id number] [place] [address]- [address] Aug, [facility] [place] [facility] [address] [id number] [place] [address] Aug, [facility] [place] [facility] [address] [id number] [place] [address] Jul, [facility] [place] [facility] [address] [id number] [place] [address] Jul, [facility] [place] [facility] [address] [id number] [place] [address]- [address] 20 Jul, 2011 [facility] [facility] [address] [id number] [place] [address] 17 Jul, 2011 [facility] [place] [facility] [address] [id number] [place] [address] 08 Jul, 2011 [facility] [place] [facility] [address] [id number] [place] [address] 15 Jun, 2011 [facility] [place] [facility] [address] [id number] [place] [address] 14 Jun, 2011 [facility] [place] [facility] [address] [id number] [place] [address] 08 Jun, 2011 [facility] [place] [facility] [address] [id number] [place] [address] 08 Jun, 2011 [facility] [address] [id number] [place] [address] May, [facility] [place] [facility] [address] [id number] [place] [address] May, [facility] [place] [facility] [address] [id number] [place] [address] May, [facility] [place] [facility] [address] [id number] [place] [address] May, [facility] [place] [facility] [address] [id number] [place] [address] May, [facility] [place] [facility] [address] [id number] [place] [address] May, [facility] [place] [facility] [address] [id number] [place] [address] May, [facility] [place] [facility] [address] [id number] [place] [address] Apr, [facility] [place] [facility] [address] [id number] [place] [address] Apr, [facility] [place] [facility] [address] [id number] [place] [address] 13 Apr, 2011 [facility] [address] [id number] [place] [address] Apr, [facility] [address] [id number] [place] [address] Apr, [facility] [address] [id number] [place] [address] Apr, [facility] [address] [id number] [place] [address] Apr, [facility] [address] [id number] [place] [address] Apr, [facility] [address] [id number] [place] [address] Apr, [facility] [address] [id number] [place] [address] Apr, [facility] [address] [id number] [place] [address] Mar, [facility] [address] [id number] [place] [address] Mar, [facility] [address] [id number] [place] [address] Feb, [facility] [address] [id number] [place] [address] Jun, [facility] [address] [id number] [place] [address] Apr, [facility] [place] [facility] [address] [id number] [place] [address] Feb, [facility] [place] [facility] [address] [id number] [place] [address] Feb, [facility] [place] [facility] [address] [id number] [place] [address] Feb, [facility] [address] [id number] [address] Apr, [facility] [id number] [place] [address] Apr, [facility] [address] [id number] [address] Mar, [facility] [id number] [place] [address] Mar, [facility] [id number] [place] [address] Mar, [facility] [id number] [place] [address] Feb, [facility] [id number] [place] [address] 254 Feb, [facility] [id number], [place] [address] Feb, [facility] [address] [id number], [place] [address] Jan, IMMUNIZATIONS Vaccine Route Administration Date Status TESTOSTERONE (PT'S OWN) IM Intramuscular September 25, 2017 Administered SOCIAL HISTORY Never Assessed REASON FOR VISIT Injection -[place] PATIÑO PLAN OF CARE Activity Details Follow Up 2 Weeks Reason:injection VITAL SIGNS MEDICATIONS Unknown Medications RESULTS No Results PROCEDURES Procedure Date Ordered Result Body Site TESTOSTERONE (PT'S OWN) September 25, 2017 THER/PROPH/DIAG INJ, SC/IM September 25, 2017 INSTRUCTIONS MEDICATIONS ADMINISTERED No Known Medications [...]
--- OUTSIDE RECORDS SUMMARY | 2018-04-28 05:28 | XMS REPORT ---
Author Author MARLEY MCGRATH Organization [facility] Address [address] [place] [address] Care Team Providers Care Housing And Residence Life Director Name Role Phone MARLEY MCGRATH Unavailable PROBLEMS Type Condition ICD9-CM Code HPX14-VD Code Onset Dates Condition Status SNOMED Code Problem Hammertoe of right foot M20.41 Active 672827829 Problem Moderate episode of recurrent major depressive disorder F33.1 Active 143486338 Problem Hypertriglyceridemia E78.1 Active 137608490 Problem Other chronic pain G89.29 Active 45060345 Problem Memory loss R41.3 Active 969093525 Problem 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.01 Active 4060645 Problem Chronic fatigue R53.82 Active 52538437 Problem Controlled type 2 diabetes mellitus without complication, without long -term current use of insulin E11.9 Active 424404704 Problem Chronic major depressive disorder, recurrent episode F33.9 Active 16846350 Problem Knee pain, right M25.561 Active 16447130 Problem Diabetes type 2, controlled E11.9 Active 18544455 Problem Type 2 diabetes mellitus without complications E11.9 Active 522328284 Problem Hypogonadism in male E29.1 Active 81260819 Problem correction (current) use of anticoagulants Z79.01 Active 192523070 ALLERGIES No Information ENCOUNTERS Encounter Location Date Diagnosis [facility] [id number] [address] Dec, Hypogonadism in male E29.1 [facility] [id number] [address] Dec, [facility] [id number] [address] Nov, Hypogonadism in male E29.1 [facility] [id number] [address] Nov, Type 2 diabetes mellitus without complications E11.9 and History of Coumadin therapy Z92.29 [facility] [address] [facility] [id number] [place] [address] 2546 18 Nov, 2017 Medicare welcome exam Z00.00 [facility] [address] [facility] [id number], [place] [address] 2546 Nov, Type 2 diabetes mellitus without complications E11.9 ; History of Coumadin therapy Z92.29 and Hypogonadism in male E29.1 [facility] [address] [facility] [id number] [place] [address] 2546 Nov, [facility] [address] [facility] [id number] [place] [address] 8256 Oct, [facility] [address] [facility] [id number] [place] [address] 2546 Oct, Diabetes type 2, controlled E11.9 [facility] [address] [facility] [id number], [place] [address] 2546 Oct, Medicare welcome exam Z00.00 [facility] [address] [facility] [id number] [place] [address] 2546 Oct, Hypogonadism in male E29.1 [facility] [address] [facility] [id number] [place] [address] Oct, [facility] [address] [facility] [id number], [place] [address] 2546 September, Hypogonadism in male E29.1 [facility] [address] [facility] [id number], [place] [address] 7[address] September, Medicare welcome exam Z00.00 [facility] [address] [facility] [id number], [place] [address]46 September, Hypogonadism in male E29.1 [facility] [address] [facility] [id number] [address] Aug, Other chronic pain G89.29 ; Memory loss R41.3 ; Controlled type 2 diabetes mellitus without complication, without long-term current use of insulin E11.9 and Chronic major depressive disorder, recurrent episode F33.9 [facility] [id number] [place] [address] 33942- 3045 11 Aug, 2017 Medicare welcome exam Z00.00 [facility] [address] [address] 09 Aug, 2017 [facility] [id number] [place] [address] 67395 -8921 Aug, Hypogonadism in male E29.1 [facility] [id number] [place] [address] 37079- 3589 Jul, [facility] [id number] [place] [address] 68696- 8689 Jul, Hypogonadism in male E29.1 [facility] [id number] [place] [address] 36595- 7672 Jul, [facility] [id number] [place] [address] 48939 -9052 Jul, Hypogonadism in male E29.1 [facility] [id number] [place] [address] 13302- 0237 Jul, Medicare welcome exam Z00.00 [facility] [address] [address] 66[address] 22 Jun, 2017 Medicare welcome exam Z00.00 [facility] [address] [address] 19 Jun, 2017 Fever R50.9 and Influenza B J10.1 [facility] [address] [id number] [address] 2119 13 Jun, 2017 Hypogonadism in male E29.1 [facility] [address], [place] [address] 7194 09 Jun, 2017 Diabetes type 2, controlled E11.9 [facility] [address], [place] [address] 3181 May, Hypogonadism in male E29.1 [facility] [id number] [address] 2546 May, correction (current) use of anticoagulants Z79.01 [facility] [address], [place] [address] 2546 Apr, Hypogonadism in male E29.1 [facility] [address] [id number] [address] 2542 Apr, [facility] [id number] [place] [address] 72280- 7404 Apr, Medicare welcome exam Z00.00 and manager 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 (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) use of anticoagulants Z79.01 [facility] [id number] [address]- 5227 Apr, Hypogonadism in male E29.1 [facility] [address], [place] [address] 8701 Mar, Diabetes type 2, controlled E11.9 [facility] [address] [id number], [place] [address] 4989 Mar, Hypogonadism in male E29.1 [facility] [address], [place] [address]- 4081 Mar, Hypogonadism in male E29.1 [facility] [address], [place] [address]- 0018 Feb, Hypogonadism in male E29.1 [facility] [id number] [address] 0556 13 Feb, 2017 Malaise R53.81 [facility] [address], [place] [address]- 7360 Feb, [facility] [id number], [place] [address]- 7106 Feb, Diabetes type 2, controlled E11.9 [facility] [id number] [place] [address] 15991- 0544 Feb, Chronic fatigue R53.82 ; Malaise R53.81 and Moderate episode of recurrent major depressive disorder F33.1 [facility] [id number] [place] [address] 46375- 1286 Jan, Diabetes type 2, controlled E11.9 [facility] [id number] [place] [address] 32893 2541 Jan, 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.01 and manager 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 (current) use of anticoagulants Z79.01 [facility] [id number] [place] [address] 66480- 1755 Dec, Diabetes type 2, controlled E11.9 and Hypertriglyceridemia E78.1 [facility] [id number] [place] [address] 05875- 4240 Dec, Diabetes type 2, controlled E11.9 [facility] [id number] [place] [address] 67018- 5105 Dec, High risk medication use Z79.899 and manager 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 (current) use of anticoagulants Z79.01 [facility] [address] [place] [address] 92942- 5001 Dec, High risk medication use Z79.899 [facility] [id number] [place] [address] 75747- 2091 Nov, Diabetes type 2, controlled E11.9 [facility] [id number] [place] [address] 01523- 7258 Oct, Diabetes type 2, controlled E11.9 [facility] [id number] [place] [address] 37853- 7921 September, Diabetes type 2, controlled E11.9 [facility] [id number] [place] [address] 04607- 2737 Aug, manager 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 (current) use of anticoagulants Z79.01 [facility] [id number] [place] [address] 98393- 3075 Aug, manager 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 (current) use of anticoagulants Z79.01 and Hematoma of arm, right, initial encounter S40.021A [address] [address]- 6640 Aug, [facility] [address] [address] -[address]30 18 Aug, 2016 Cellulitis of right upper extremity L03.113 [address] [address] 64716- 1796 14 Aug, 2016 Diabetes type 2, controlled E11.9 [address] [address] 50434- 0483 Aug, Hammertoe of right foot M20.41 ; Hallux abducto valgus, left M20.12 and Onychomycosis B35.1 [address] [address] 33486- 6607 Aug, manager 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 (current) use of anticoagulants Z79.01 [address] [address] 63200- 8504 Aug, correction (current) use of anticoagulants Z79.01 [facility] [id number] [place] [address] 92703- 3271 Aug, manager 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 (current) use of anticoagulants Z79.01 [facility] [id number] [place] [address] 19837 -0225 Aug, Right shoulder pain M25.511 and Closed nondisplaced fracture of acromial end of right clavicle, initial encounter S42.034A [address] 08210- 0662 16 Jul, 2016 Diabetes type 2, controlled E11.9 [place] [address] [place] [address]- 9391 Jun, Diabetes type 2, controlled E11.9 and correction (current) use of anticoagulants Z79.01 [facility] [address] [address]- 2976 May, [facility] [id number] [place] [address] 22147- 0526 Apr, [facility] [id number] [place] [address] 01241- 3989 Mar, [facility] [id number] [place] [address] 33838- 5995 Feb, [facility] [id number] [place] [address] 14419- 4434 Dec, Diabetes type 2, controlled E11.9 [facility] [id number] [place] [address] 17276- 8413 Dec, [facility] [address] [address]- 5581 Nov, [facility] [address] [place] [address] 89353- 1351 Nov, Type 2 diabetes mellitus without complications E11.9 [facility] [address] [address]- 2969 Oct, Type 2 diabetes mellitus without complications E11.9 [facility] [address], [place] [address]- 1709 Aug, [facility] [address] [place] [address] 79817- 3593 Aug, Type 2 diabetes mellitus without complications E11.9 [facility] [address] 1292 Jun, Type 2 diabetes mellitus without complications E11.9 and 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 half-way use of antiplatelet drug Z79.02 [facility] [id number] [place] [address] 13511- 8605 May, [facility] [address] [place] [address] 94806- 2757 May, Diabetes type 2, controlled E11.9 [facility] [id number] [place] [address] 25531- 5016 Apr, Diabetes type 2, controlled E11.9 [facility] [id number] [place] [address] 92795- 4499 Mar, Diabetes type 2, controlled E11.9 ; Knee pain, right M25.561 ; Other chronic pain G89.29 and Medication monitoring encounter Z51.81 [facility] [id number] [place] [address] 47898- 9875 Feb, Type 2 diabetes mellitus without complications E11.9 ; High risk medication use Z79.899 and Anxiety F41.9 [facility] [id number] [place] [address] 79184- 2724 Jan, Diabetes 250.00 [facility] [id number] [place] [address] 75716- 1726 Dec, Diabetes 250.00 [facility] [id number] [place] [address] 88531- 3029 Nov, Diabetes 250.00 [facility] [id number] [place] [address] 17034- 3381 Nov, [facility] [id number] [place] [address] 13947- 4309 Oct, Diabetes mellitus type 1 250.01 and High risk medication use V58.69 [facility] [id number] [place] [address] 59399- 8558 Oct, [facility] [id number] [place] [address] 82529- 6869 September, [facility] [id number] [place] [address] 92155- 5531 Aug, [facility] [place] [facility] [address] [id number] [place] [address]- 4205 13 Aug, 2014 [facility] [place] [facility] [address] [id number] [place] [address]- 1435 Jul, [facility] [place] [facility] [address] [id number] [place] [address]- 4452 Jul, [facility] [place] [facility] [address] [id number] [place] [address]- 0082 Jun, [facility] [place] [facility] [address] [id number] [place] [address]- 9535 Jun, [facility] [place] [facility] [address] [id number] [place] [address]- 4473 Jun, [facility] [place] [facility] [address] [id number] [place] [address]- 1596 May, [facility] [place] [facility] [address] [id number] [place] [address]- 1867 May, [facility] [place] [facility] [address] [id number] [place] [address]- 7333 Apr, [facility] [place] [facility] [address] [id number] [place] [address]- 8287 Apr, [facility] [place] [facility] [address] [id number] [place] [address]- 5640 Apr, [facility] [place] [facility] [address] [id number] [place] [address]- 4743 Apr, [facility] [place] [facility] [address] [id number] [place] [address] 2546 Apr, [facility] [place] [facility] [address] [id number] [place] 5466 Apr, [facility] [place] [facility] [address] [id number] [place] [address]- 2281 31 Feb, 2014 [facility] [place] [facility] [address] [id number] [place] [address]- 8107 Feb, [facility] [place] [facility] [address] [id number] [place] [address]- 5028 Feb, [facility] [place] [facility] [address] [id number] [place] [address]- 1778 Feb, [facility] [place] [facility] [address] [id number] [place] [address]- 9538 Dec, [facility] [place] [facility] [address] [id number] [place] [address]- 0684 Dec, [facility] [place] [facility] [address] [id number] [place] [address]- 7421 Nov, [facility] [place] [facility] [address] [id number] [place] [address]- 3609 Nov, [facility] [place] [facility] [address] [id number] [place] [address]- 6499 Oct, [facility] [place] [facility] [address] [id number] [place] [address]- 5012 Oct, [facility] [place] [facility] [address] [id number] [place] [address]- 5643 Oct, [facility] [place] [facility] [address] [id number] [place] [address]- 7368 Oct, [facility] [place] [facility] [address] [id number] [place] [address]- 3827 Oct, [facility] [place] [facility] [address] [id number] [place] [address]- 2659 Oct, [facility] [place] [facility] [address] [id number] [place] [address]- 4112 September, [facility] [place] [facility] [address] [id number] [place] [address]- 3915 September, [facility] [place] [facility] [address] [id number] [place] 6941 September, [facility] [place] [facility] [address] [id number] [place] [address]- 1157 September, [facility] [place] [facility] [address] [id number] [place] 4859 September, [facility] [place] [facility] [address] [id number] [place] [address]- 2511 September, [facility] [place] [facility] [address] [id number] [place] [address]- 9572 Aug, [facility] [place] [facility] [address] [id number] [place] [address]- 4499 Aug, [facility] [place] [facility] [address] [id number] [place] [address]- 9154 Aug, [facility] [place] [facility] [address] [id number] [place] [address]- 0778 Aug, [facility] [place] [facility] [address] [id number] [place] [address]- 0909 Aug, [facility] [place] [facility] [address] [id number] [place] [address]- 5543 Aug, [facility] [place] [facility] [address] [id number] [place] [address]- 1314 Jul, [facility] [place] [facility] [address] [id number] [place] [address]- 5451 Jul, [facility] [place] [facility] [address] [id number] [place] [address]- 3916 Jul, [facility] [place] [facility] [address] [id number] [place] [address]- 6803 Jul, [facility] [place] [facility] [address] [id number] [place] [address]- 7354 May, [facility] [place] [facility] [address] [id number] [place] [address]- 4663 May, [facility] [place] [facility] [address] [id number] [place] [address]- 2706 Apr, [facility] [address] [id number] [place] [address]- 7765 Apr, [facility] [place] [facility] [address] [id number], [place] [address]- 2546 Apr, [facility] [place] [facility] [address] [facility] [id number] [place] [address]- 2546 Apr, [facility] [place] [facility] [address] [id number], [place] [address]- 2544 Apr, [facility] [place] [facility] [address] [id number] [place] [address]- 2541 Apr, [facility] [place] [facility] [address] [id number], [place] [address]- 1803 Feb, [facility] [place] [facility] [address] [id number], [place] [address]- 6758 Feb, [facility] [place] [facility] [address] [id number], [place] [address]- 0388 Feb, [facility] [place] [facility] [address] [id number], [place] [address]- 5713 Feb, [facility] [place] [facility] [address] [id number], [place] [address]- 3776 Feb, [facility] [place] [facility] [address] [id number], [place] [address] 2549 Feb, [facility] [place] [facility] [address] [id number], [place] [address]- 2540 Feb, [facility] [place] [facility] [address] [id number], [place] [address]- 254 Feb, [facility] [place] [facility] [address] [id number], [place] [address] 2549 Jan, [facility] [place] [facility] [address] [id number], [place] [address]- 2546 Jan, [facility] [place] [facility] [address] [id number] [place] [address]- 6395 Jan, [facility] [address] [id number] [place] [address]- 0725 Jan, [facility] [address] [id number] [place] [address]- 5793 Dec, [facility] [address] [id number] [place] [address]- 9958 Dec, [facility] [address] [id number] [place] [address]- 5360 Dec, [facility] [address] [id number] [place] [address]- 8521 Nov, [facility] [address] [id number] [place] [address]- 2244 Nov, [facility] [address] [id number] [place] [address]- 6262 Oct, [facility] [address] [id number] [place] [address] September, [facility] [address] [id number] [place] [address] September, [facility] [address] [id number] [place] [address] September, [facility] [address] [id number] [place] [address] Aug, [facility] [address] [id number] [place] [address] 16 Aug, 2012 [facility] [place] [facility] [address] [id number] [place] [address] 15 Aug, 2012 [facility] [place] [facility] [address] [id number] [place] [address] Jul, [facility] [address] [id number] [place] [address] Jul, [facility] [place] [facility] [address] [id number] [place] [address] Jun, [facility] [place] [facility] [address] [id number] [place] [address] Jun, [facility] [place] [facility] [address] [id number] [place] [address] Jun, [facility] [place] [facility] [address] [id number] [place] [address] Jun, [facility] [place] [facility] [address] [id number] [place] [address] May, [facility] [place] [facility] [address] [id number] [place] [address] May, [facility] [place] [facility] [address] [id number] [place] [address] Apr, [facility] [place] [facility] [address] [id number] [place] [address] Apr, [facility] [place] [facility] [address] [id number] [place] [address] Apr, [facility] [place] [facility] [address] [id number] [place] [address] Apr, [facility] [place] [facility] [address] [id number] [place] [address] Apr, [facility] [place] [facility] [address] [id number] [place] [address] Apr, [facility] [place] [facility] [address] [id number] [place] [address] Mar, [facility] [place] [facility] [address] [id number] [place] [address] Mar, [facility] [place] [facility] [address] [id number] [place] [address] 14[address] Mar, [facility] [place] [facility] [address] [id number] [place] [address] Mar, [facility] [place] [facility] [address] [id number] [place] [address] Mar, [facility] [place] [facility] [address] [id number] [place] [address] Mar, [facility] [place] [facility] [address] [id number] [place] [address] Feb, [facility] [place] [facility] [address] [id number] [place] [address] Feb, [facility] [place] [facility] [address] [id number] [place] [address], [place] [address] Feb, [facility] [place] [facility] [address] [id number] [place] [address] Feb, [facility] [place] [facility] [address] [id number] [place] [address] Feb, [facility] [place] [facility] [address] [id number] [place] [address] Jan, [facility] [place] [facility] [address] [id number] [place] [address] Jan, [facility] [place] [facility] [address] [id number] [place] [address] Jan, [facility] [place] [facility] [address] [id number] [place] [address] Dec, [facility] [place] [facility] [address] [id number] [place] [address] Dec, [facility] [place] [facility] [address] [id number] [place] [address] Nov, [facility] [place] [facility] [address] [id number] [place] [address] Oct, [facility] [place] [facility] [address] [id number] [place] [address] Oct, [facility] [place] [facility] [address] [id number] [place] [address] Oct, [facility] [place] [facility] [address] [id number] [place] [address] Oct, [facility] [place] [facility] [address] [id number] [place] [address] Oct, [facility] [place] [facility] [address] [id number] [place] [address] September, [facility] [place] [facility] [address] [id number] [place] [address] Aug, [facility] [place] [facility] [address] [id number] [place] [address] 18 Aug, 2011 [facility] [place] [facility] [address] [id number] [place] [address] 17 Aug, 2011 [facility] [place] [facility] [address] [id number] [place] [address] 16 Aug, 2011 [facility] [place] [facility] [address] [id number] [place] [address] 13 Aug, 2011 [facility] [place] [facility] [address] [id number] [place] [address] Aug, [facility] [place] [facility] [address] [id number] [place] [address] Aug, [facility] [place] [facility] [address] [id number] [place] [address] Aug, [facility] [place] [facility] [address] [id number] [place] [address] Aug, [facility] [place] [facility] [address] [id number] [place] [address] Jul, [facility] [place] [facility] [address] [id number] [place] [address] Jul, [facility] [place] [facility] [address] [id number] [place] [address] 20 Jul, 2011 [facility] [address] [id number] [place] [address] 17 Jul, 2011 [facility] [place] [facility] [address] [id number] [place] [address] 08 Jul, 2011 [facility] [place] [facility] [address] [id number] [place] [address] 15 Jun, 2011 [facility] [place] [facility] [address] [id number] [place] [address] 14 Jun, 2011 [facility] [place] [facility] [address] [id number] [place] [address] 08 Jun, 2011 [facility] [place] [facility] [address] [id number] [place] [address] 08 Jun, 2011 [facility] [address] [id number] [place] [address] May, [facility] [place] [facility] [address] [id number] [place] [address] May, [facility] [place] [facility] [address] [id number] [place] [address] May, [facility] [place] [facility] [address] [id number] [place] [address] May, [facility] [place] [facility] [address] [id number] [place] [address] May, [facility] [place] [facility] [address] [id number] [place] [address] May, [facility] [place] [facility] [address] [id number] [place] [address] May, [facility] [place] [facility] [address] [id number] [place] [address] Apr, [facility] [place] [facility] [address] [id number] [place] [address] Apr, [facility] [place] [facility] [address] [id number] [place] [address] 13 Apr, 2011 [facility] [address] [id number] [place] [address] Apr, [facility] [address] [id number] [place] [address] Apr, [facility] [address] [id number] [place] [address] 47[address] Apr, [facility] [address] [id number] [place] [address] Apr, [facility] [address] [id number] [place] [address] Apr, [facility] [address] [id number] [place] [address] Apr, [facility] [address] [id number] [place] [address] Apr, [facility] [address] [id number] [place] [address] Mar, [facility] [address] [id number] [place] [address] Mar, [facility] [address] [id number] [place] [address] Feb, [facility] [address] [id number] [place] [address] Jun, [facility] [address] [id number] [place] [address] 1156 Apr, [facility] [place] [facility] [address] [id number] [place] [address] Feb, [facility] [place] [facility] [address] [id number] [place] [address] Feb, [facility] [place] [facility] [address] [id number] [place] [address] Feb, [facility] [address] [id number] [address] Apr, [facility] [id number] [place] [address] Apr, [facility] [address] [id number] [address] Mar, [facility] [id number] [place] [address] Mar, [facility] [id number] [place] [address] Mar, [facility] [id number] [place] [address] Feb, [facility] [id number] [place] [address] Feb, [facility] [id number], [place] [address] Feb, [facility] [address] [id number] [address] Jan, IMMUNIZATIONS Vaccine Route Administration Date Status TESTOSTERONE (PT'S OWN) IM Intramuscular October 14, 2017 Administered SOCIAL HISTORY Never Assessed REASON FOR VISIT Injection- Surendra Shah RN PLAN OF CARE Activity Details Follow Up 2 Weeks Reason: VITAL SIGNS MEDICATIONS Unknown Medications RESULTS No Results PROCEDURES Procedure Date Ordered Result Body Site TESTOSTERONE (PT'S OWN) October 14, 2017 THER/PROPH/DIAG INJ, SC/IM October 14, 2017 INSTRUCTIONS MEDICATIONS ADMINISTERED No Known [...]
--- OUTSIDE RECORDS SUMMARY | 2018-04-28 05:29 | XMS REPORT ---
Author Author MARLEY MCGRATH Organization [facility] Address [address] [place] [address] Care Team Providers [facility] Manager Name Role Phone MARLEY MCGRATH Unavailable PROBLEMS Type Condition ICD9-CM Code FNO53-CA Code Onset Dates Condition Status SNOMED Code Problem Hammertoe of right foot M20.41 Active 360177605 Problem Moderate episode of recurrent major depressive disorder F33.1 Active 515482596 Problem Hypertriglyceridemia E78.1 Active 569856153 Problem Other chronic pain G89.29 Active 99607235 Problem Memory loss R41.3 Active 074238271 Problem 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.01 Active 1875638 Problem Chronic fatigue R53.82 Active 96133378 Problem Controlled type 2 diabetes mellitus without complication, without long -term current use of insulin E11.9 Active 329809446 Problem Chronic major depressive disorder, recurrent episode F33.9 Active 29956375 Problem Knee pain, right M25.561 Active 64790661 Problem Diabetes type 2, controlled E11.9 Active 00829226 Problem Type 2 diabetes mellitus without complications E11.9 Active 552312330 Problem Hypogonadism in male E29.1 Active 24821115 Problem correction (current) use of anticoagulants Z79.01 Active 859506334 ALLERGIES No Information ENCOUNTERS Encounter Location Date Diagnosis [facility] [address] [id number], [place] [address] Dec, Hypogonadism in male E29.1 [facility] [address] [id number], [place] [address] Dec, [facility] [address] [id number], [place] [address] Nov, Hypogonadism in male E29.1 [facility] [address] [id number], [place] [address] Nov, Type 2 diabetes mellitus without complications E11.9 and History of Coumadin therapy Z92.29 [facility] [address] [facility] [id number] [place] [address] 2546 18 Nov, 2017 Medicare welcome exam Z00.00 [facility] [address] [facility] [id number], [place] [address] 2546 Nov, Type 2 diabetes mellitus without complications E11.9 ; History of Coumadin therapy Z92.29 and Hypogonadism in male E29.1 [facility] [address] [facility] [id number] [place] [address] 2546 Nov, [facility] [address] [facility] [id number] [place] [address] Oct, [facility] [address] [facility] [id number] [place] [address] 2546 Oct, Diabetes type 2, controlled E11.9 [facility] [address] [facility] [id number], [place] [address] 2546 Oct, Medicare welcome exam Z00.00 [facility] [address] [facility] [id number] [place] [address] 2546 Oct, Hypogonadism in male E29.1 [facility] [address] [facility] [id number] [place] [address] Oct, [facility] [address] [facility] [id number], [place] [address] September, Hypogonadism in male E29.1 [facility] [address] [facility] [id number], [place] [address] September, Medicare welcome exam Z00.00 [facility] [address] [facility] [id number], [place] [address] September, Hypogonadism in male E29.1 [facility] [address] [facility] [id number], [place] [address] Aug, Other chronic pain G89.29 ; Memory loss R41.3 ; Controlled type 2 diabetes mellitus without complication, without long-term current use of insulin E11.9 and Chronic major depressive disorder, recurrent episode F33.9 [facility] [id number] [place] [address] 96871- 5835 11 Aug, 2017 Medicare welcome exam Z00.00 [facility] [address], [place] [address] 09 Aug, 2017 [facility] [id number] [place] [address] -7256 Aug, Hypogonadism in male E29.1 [facility] [id number] [place] [address] 56014- 8179 Jul, [facility] [id number] [place] [address] 08516- 4246 Jul, Hypogonadism in male E29.1 [facility] [id number] [place] [address] 37069- 4173 Jul, [facility] [id number] [place] [address] 60935 -9542 Jul, Hypogonadism in male E29.1 [facility] [id number] [place] [address] 56118- 9696 Jul, Medicare welcome exam Z00.00 [facility] [address], [place] [address] 25[address] 22 Jun, 2017 Medicare welcome exam Z00.00 [facility] [address], [place] [address] 19 Jun, 2017 Fever R50.9 and Influenza B J10.1 [facility] [address] [id number], [place] [address] 9567 13 Jun, 2017 Hypogonadism in male E29.1 [facility] [address], [place] [address] 5205 09 Jun, 2017 Diabetes type 2, controlled E11.9 [facility] [address], [place] [address] 9409 May, Hypogonadism in male E29.1 [facility] [id number], [place] [address] 2546 May, correction (current) use of anticoagulants Z79.01 [facility] [address], [place] [address] 2546 Apr, Hypogonadism in male E29.1 [facility] [address] [id number], [place] [address] 2541 Apr, [facility] [id number] [place] [address] 35460- 3890 Apr, Medicare welcome exam Z00.00 and 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 [facility] [id number], [place] [address] 7470 Apr, Hypogonadism in male E29.1 [facility] [address], [place] [address]- 1035 Mar, Diabetes type 2, controlled E11.9 [facility] [id number], [place] [address] 6[address] Mar, Hypogonadism in male E29.1 [facility] [address], [place] [address]- 0994 Mar, Hypogonadism in male E29.1 [facility] [address], [place] [address]- 0141 Feb, Hypogonadism in male E29.1 [facility] [id number], [place] [address] 0396 13 Feb, 2017 Malaise R53.81 [facility] [address], [place] [address]- 3209 Feb, [facility] [id number], [place] [address] 4478 Feb, Diabetes type 2, controlled E11.9 [facility] [id number] [place] [address] 07126- 4846 Feb, Chronic fatigue R53.82 ; Malaise R53.81 and Moderate episode of recurrent major depressive disorder F33.1 [facility] [id number] [place] [address] 15315- 3056 Jan, Diabetes type 2, controlled E11.9 [facility] [id number] [place] [address]295 2544 Jan, 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.01 and 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 [facility] [id number] [place] [address] 22775- 8548 Dec, Diabetes type 2, controlled E11.9 and Hypertriglyceridemia E78.1 [facility] [id number] [place] [address] 38341- 2226 Dec, Diabetes type 2, controlled E11.9 [facility] [id number] [place] [address] 86693- 4289 Dec, High risk medication use Z79.899 and 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 [facility] [address] [place] [address] 62506- 3379 Dec, High risk medication use Z79.899 [facility] [id number] [place] [address] 31069- 0054 Nov, Diabetes type 2, controlled E11.9 [facility] [id number] [place] [address] 10017- 1474 Oct, Diabetes type 2, controlled E11.9 [facility] [id number] [place] [address] 84642- 9109 September, Diabetes type 2, controlled E11.9 [facility] [id number] [place] [address] 01765- 9286 Aug, 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 [facility] [id number] [place] [address] 55862- 1942 Aug, 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 and Hematoma of arm, right, initial encounter S40.021A [facility] [address] [address]- 7547 Aug, [facility] [address] [address] 18 Aug, 2016 Cellulitis of right upper extremity L03.113 [facility] [address] [address]- 2573 14 Aug, 2016 Diabetes type 2, controlled E11.9 [address] [facility] [address] [address]- 9643 Aug, Hammertoe of right foot M20.41 ; Hallux abducto valgus, left M20.12 and Onychomycosis B35.1 [address] [address] [address]- 0636 Aug, 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 [address] [address] 54[address]- 5831 Aug, correction (current) use of anticoagulants Z79.01 [facility] [id number] [place] [address] 68280- 1180 Aug, 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 [facility] [id number] [place] [address] 21927 -7885 Aug, Right shoulder pain M25.511 and Closed nondisplaced fracture of acromial end of right clavicle, initial encounter S42.034A [address] 80618- 9351 16 Jul, 2016 Diabetes type 2, controlled E11.9 [facility] [address] [place] [address]- 8878 Jun, Diabetes type 2, controlled E11.9 and correction (current) use of anticoagulants Z79.01 [facility] [address], [place] [address]- 3590 May, [facility] [id number] [place] [address] 07531- 7924 Apr, [facility] [id number] [place] [address] 41854- 3093 Mar, [facility] [id number] [place] [address] 37870- 8921 Feb, [facility] [id number] [place] [address] 67421- 5204 Dec, Diabetes type 2, controlled E11.9 [facility] [id number] [place] [address] 93655- 2835 Dec, [facility] [address], [place] [address]- 0471 Nov, [facility] [address] [place] [address] 99036- 2120 Nov, Type 2 diabetes mellitus without complications E11.9 [facility] [address], [place] [address]- 7657 Oct, Type 2 diabetes mellitus without complications E11.9 [facility] [address], [place] [address]- 1636 Aug, [facility] [address] [place] [address] 51801- 5710 Aug, Type 2 diabetes mellitus without complications E11.9 [facility] [address] [address] Jun, Type 2 diabetes mellitus without complications E11.9 and 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 fpc use of antiplatelet drug Z79.02 [facility] [id number] [place] [address] 56639- 1641 May, [facility] [address] [place] [address] 83395- 4714 May, Diabetes type 2, controlled E11.9 [facility] [id number] [place] [address] 13383- 5966 Apr, Diabetes type 2, controlled E11.9 [facility] [id number] [place] [address] 28569- 7426 Mar, Diabetes type 2, controlled E11.9 ; Knee pain, right M25.561 ; Other chronic pain G89.29 and Medication monitoring encounter Z51.81 [facility] [id number] [place] [address] 79400- 6459 Feb, Type 2 diabetes mellitus without complications E11.9 ; High risk medication use Z79.899 and Anxiety F41.9 [facility] [id number] [place] [address] 66139- 1229 Jan, Diabetes 250.00 [facility] [id number] [place] [address] 87670- 7439 Dec, Diabetes 250.00 [facility] [id number] [place] [address] 91488- 4978 Nov, Diabetes 250.00 [facility] [id number] [place] [address] 03469- 4608 Nov, [facility] [id number] [place] [address] 18031- 8679 Oct, Diabetes mellitus type 1 250.01 and High risk medication use V58.69 [facility] [id number] [place] [address] 87705- 3214 Oct, [facility] [id number] [place] [address] 89859- 8647 September, [facility] [id number] [place] [address] 04599- 4764 Aug, [facility] [place] [facility] [address] [id number] [place] [address]- 5815 13 Aug, 2014 [facility] [place] [facility] [address] [id number] [place] [address]- 3350 Jul, [facility] [place] [facility] [address] [id number] [place] [address]- 6128 Jul, [facility] [place] [facility] [address] [id number] [place] [address]- 6807 Jun, [facility] [place] [facility] [address] [id number] [place] [address]- 9273 Jun, [facility] [place] [facility] [address] [id number] [place] [address]- 8094 Jun, [facility] [place] [facility] [address] [id number] [place] [address]- 2171 May, [facility] [place] [facility] [address] [id number] [place] [address]- 1937 May, [facility] [place] [facility] [address] [id number] [place] [address]- 3207 Apr, [facility] [place] [facility] [address] [id number] [place] [address]- 6779 Apr, [facility] [place] [facility] [address] [id number] [place] [address]- 4693 Apr, [facility] [place] [facility] [address] [id number] [place] [address]- 5185 Apr, [facility] [place] [facility] [address] [id number] [place] [address] 2546 Apr, [facility] [place] [facility] [address] [id number] [place] 6766 Apr, [facility] [place] [facility] [address] [id number] [place] [address]- 5267 31 Feb, 2014 [facility] [place] [facility] [address] [id number] [place] [address]- 6487 Feb, [facility] [place] [facility] [address] [id number] [place] [address]- 0491 Feb, [facility] [place] [facility] [address] [id number] [place] [address]- 9799 Feb, [facility] [place] [facility] [address] [id number] [place] [address]- 2849 Dec, [facility] [place] [facility] [address] [id number] [place] [address]- 8376 Dec, [facility] [place] [facility] [address] [id number] [place] [address]- 3126 Nov, [facility] [place] [facility] [address] [id number] [place] [address]- 7617 Nov, [facility] [place] [facility] [address] [id number] [place] [address]- 5619 Oct, [facility] [place] [facility] [address] [id number] [place] [address]- 8281 Oct, [facility] [place] [facility] [address] [id number] [place] [address]- 2715 Oct, [facility] [place] [facility] [address] [id number] [place] [address]- 4245 Oct, [facility] [place] [facility] [address] [id number] [place] [address]- 8018 Oct, [facility] [place] [facility] [address] [id number] [place] [address]- 8385 Oct, [facility] [place] [facility] [address] [id number] [place] [address]- 5417 September, [facility] [place] [facility] [address] [id number] [place] [address]- 3050 September, [facility] [place] [facility] [address] [id number] [place] 6944 September, [facility] [place] [facility] [address] [id number] [place] [address]- 9609 September, [facility] [place] [facility] [address] [id number] [place] 3487 September, [facility] [place] [facility] [address] [id number] [place] [address]- 8357 September, [facility] [place] [facility] [address] [id number] [place] [address]- 3036 Aug, [facility] [place] [facility] [address] [id number] [place] [address]- 9518 Aug, [facility] [place] [facility] [address] [id number] [place] [address]- 1455 Aug, [facility] [place] [facility] [address] [id number] [place] [address]- 3743 Aug, [facility] [place] [facility] [address] [id number] [place] [address]- 3283 Aug, [facility] [place] [facility] [address] [id number] [place] [address]- 8249 Aug, [facility] [place] [facility] [address] [id number] [place] [address]- 0041 Jul, [facility] [place] [facility] [address] [id number] [place] [address]- 5133 Jul, [facility] [place] [facility] [address] [id number] [place] [address]- 9515 Jul, [facility] [place] [facility] [address] [id number] [place] [address]- 8941 Jul, [facility] [place] [facility] [address] [id number] [place] [address]- 5338 May, [facility] [place] [facility] [address] [id number] [place] [address]- 1776 May, [facility] [place] [facility] [address] [id number] [place] [address]- 0390 Apr, [facility] [address] [id number] [place] [address]- 8539 Apr, [facility] [place] [facility] [address] [id number], [place] [address]- 2546 Apr, [facility] [place] [facility] [address] [facility] [id number] [place] [address]- 2546 Apr, [facility] [place] [facility] [address] [id number], [place] [address]- 2541 Apr, [facility] [place] [facility] [address] [id number] [place] [address]- 2547 Apr, [facility] [place] [facility] [address] [id number], [place] [address]- 6827 Feb, [facility] [place] [facility] [address] [id number], [place] [address]- 3301 Feb, [facility] [place] [facility] [address] [id number], [place] [address]- 6083 Feb, [facility] [place] [facility] [address] [id number], [place] [address]- 0777 Feb, [facility] [place] [facility] [address] [id number], [place] [address]- 3489 Feb, [facility] [place] [facility] [address] [id number], [place] [address] 2540 Feb, [facility] [place] [facility] [address] [id number], [place] [address]- 2543 Feb, [facility] [place] [facility] [address] [id number], [place] [address]- 254 Feb, [facility] [place] [facility] [address] [id number], [place] [address] 2543 Jan, [facility] [place] [facility] [address] [id number], [place] [address]- 2546 Jan, [facility] [place] [facility] [address] [id number] [place] [address]- 7880 Jan, [facility] [address] [id number] [place] [address]- 9657 Jan, [facility] [address] [id number] [place] [address]- 6826 Dec, [facility] [address] [id number] [place] [address]- 7246 Dec, [facility] [address] [id number] [place] [address]- 6604 Dec, [facility] [address] [id number] [place] [address]- 7297 Nov, [facility] [address] [id number] [place] [address]- 5441 Nov, [facility] [address] [id number] [place] [address]- 8422 Oct, [facility] [address] [id number] [place] [address]- 3611 September, [facility] [address] [id number] [place] [address]- 9821 September, [facility] [address] [id number] [place] [address]- 0356 September, [facility] [address] [id number] [place] [address]- 0964 Aug, [facility] [address] [id number] [place] [address]- 3344 16 Aug, 2012 [facility] [place] [facility] [address] [id number] [place] [address]- 4070 15 Aug, 2012 [facility] [place] [facility] [address] [id number] [place] [address]- 3734 Jul, [facility] [address] [id number] [place] [address]- 6002 Jul, [facility] [place] [facility] [address] [id number] [place] [address]- 7367 Jun, [facility] [place] [facility] [address] [id number] [place] [address]- 1306 Jun, [facility] [place] [facility] [address] [id number] [place] [address] 2546 Jun, [facility] [place] [facility] [address] [id number] [place] [address] 2546 Jun, [facility] [place] [facility] [address] [id number] [place] [address]- 8322 May, [facility] [place] [facility] [address] [id number] [place] [address]- 9986 May, [facility] [place] [facility] [address] [id number] [place] [address] Apr, [facility] [place] [facility] [address] [id number] [place] [address] Apr, [facility] [place] [facility] [address] [id number] [place] [address] Apr, [facility] [place] [facility] [address] [id number] [place] [address] Apr, [facility] [place] [facility] [address] [id number] [place] [address] Apr, [facility] [place] [facility] [address] [id number] [place] [address] Apr, [facility] [place] [facility] [address] [id number] [place] [address] 2546 Mar, [facility] [place] [facility] [address] [id number] [place] [address] 2546 Mar, [facility] [place] [facility] [address] [id number] [place] [address] Mar, [facility] [place] [facility] [address] [id number] [place] [address] Mar, [facility] [place] [facility] [address] [id number] [place] [address] Mar, [facility] [place] [facility] [address] [id number] [place] [address] Mar, [facility] [place] [facility] [address] [id number] [place] [address] Feb, [facility] [place] [facility] [address] [id number] [place] [address] Feb, [facility] [place] [facility] [address] [id number] [place] [address], [place] [address]- [address] Feb, [facility] [place] [facility] [address] [id number] [place] [address] Feb, [facility] [place] [facility] [address] [id number] [place] [address] Feb, [facility] [place] [facility] [address] [id number] [place] [address]- [address] Jan, [facility] [place] [facility] [address] [id number] [place] [address] Jan, [facility] [place] [facility] [address] [id number] [place] [address] Jan, [facility] [place] [facility] [address] [id number] [place] [address]- [address] Dec, [facility] [place] [facility] [address] [id number] [place] [address]- [address] Dec, [facility] [place] [facility] [address] [id number] [place] [address] Nov, [facility] [place] [facility] [address] [id number] [place] [address] Oct, [facility] [place] [facility] [address] [id number] [place] [address] Oct, [facility] [place] [facility] [address] [id number] [place] [address]- [address] Oct, [facility] [place] [facility] [address] [id number] [place] [address] Oct, [facility] [place] [facility] [address] [id number] [place] [address] Oct, [facility] [place] [facility] [address] [id number] [place] [address] September, [facility] [place] [facility] [address] [id number] [place] [address] Aug, [facility] [place] [facility] [address] [id number] [place] [address]- [address] 18 Aug, 2011 [facility] [place] [facility] [address] [id number] [place] [address]- [address] 17 Aug, 2011 [facility] [place] [facility] [address] [id number] [place] [address]37 16 Aug, 2011 [facility] [place] [facility] [address] [id number] [place] [address] 13 Aug, 2011 [facility] [place] [facility] [address] [id number] [place] [address] Aug, [facility] [place] [facility] [address] [id number] [place] [address] Aug, [facility] [place] [facility] [address] [id number] [place] [address]- [address] Aug, [facility] [place] [facility] [address] [id number] [place] [address] Aug, [facility] [place] [facility] [address] [id number] [place] [address] Jul, [facility] [place] [facility] [address] [id number] [place] [address] Jul, [facility] [place] [facility] [address] [id number] [place] [address] 20 Jul, 2011 [facility] [address] [address] [id number] [place] [address] 17 Jul, 2011 [facility] [place] [facility] [address] [id number] [place] [address] 08 Jul, 2011 [facility] [place] [facility] [address] [id number] [place] [address] 15 Jun, 2011 [facility] [place] [facility] [address] [id number] [place] [address] 14 Jun, 2011 [facility] [place] [facility] [address] [id number] [place] [address] 08 Jun, 2011 [facility] [place] [facility] [address] [id number] [place] [address] 08 Jun, 2011 [facility] [address] [id number] [place] [address] May, [facility] [place] [facility] [address] [id number] [place] [address] May, [facility] [place] [facility] [address] [id number] [place] [address] May, [facility] [place] [facility] [address] [id number] [place] [address] May, [facility] [place] [facility] [address] [id number] [place] [address] May, [facility] [place] [facility] [address] [id number] [place] [address] May, [facility] [place] [facility] [address] [id number] [place] [address] May, [facility] [place] [facility] [address] [id number] [place] [address] Apr, [facility] [place] [facility] [address] [id number] [place] [address] Apr, [facility] [place] [facility] [address] [id number] [place] [address] 13 Apr, 2011 [facility] [address] [id number] [place] [address] Apr, [facility] [address] [id number] [place] [address] Apr, [facility] [address] [id number] [place] [address] Apr, [facility] [address] [id number] [place] [address] Apr, [facility] [address] [id number] [place] [address] Apr, [facility] [address] [id number] [place] [address] Apr, [facility] [address] [id number] [place] [address] Apr, [facility] [address] [id number] [place] [address] Mar, [facility] [address] [id number] [place] [address] Mar, [facility] [address] [id number] [place] [address] Feb, [facility] [address] [id number] [place] [address] Jun, [facility] [address] [id number] [place] [address] Apr, [facility] [place] [facility] [address] [id number] [place] [address] Feb, [facility] [place] [facility] [address] [id number] [place] [address] Feb, [facility] [place] [facility] [address] [id number] [place] [address] Feb, [facility] [address] [facility] [id number], [place] [address] Apr, [facility] [address] [facility] [id number], [place] [address] Apr, [facility] [address] [facility] [id number], [place] [address] Mar, [facility] [address] [facility] [id number], [place] [address] Mar, [facility] [address] [facility] [id number], [place] [address] Mar, [facility] [address] [facility] [id number], [place] [address] Feb, [facility] [id number], [place] [address] Feb, [facility] [id number], [place] [address] Feb, [facility] [address] [id number], [place] [address] Jan, IMMUNIZATIONS No Known Immunizations SOCIAL HISTORY Never Assessed REASON FOR VISIT Controlled Med Refill PLAN OF CARE VITAL SIGNS MEDICATIONS Medication Instructions Dosage Frequency Start Date End Date Duration Status [place] 5-325 MG Orally every 6 hrs 1 tablet 6h September, 28 days Active Clonazepam 1 MG Orally [...]
--- OUTSIDE RECORDS SUMMARY | 2018-04-28 05:30 | XMS REPORT ---
Author Author MARLEY MCGRATH Organization [facility] Address [address] [place] [address] Care Team Providers Care Foster Care Case Manager Name Role Phone MARLEY MCGRATH Unavailable PROBLEMS Type Condition ICD9-CM Code CTX66-LU Code Onset Dates Condition Status SNOMED Code Problem Hammertoe of right foot M20.41 Active 971600822 Problem Moderate episode of recurrent major depressive disorder F33.1 Active 095471671 Problem Hypertriglyceridemia E78.1 Active 908132780 Problem Other chronic pain G89.29 Active 63581503 Problem Memory loss R41.3 Active 059947347 Problem 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.01 Active 2705111 Problem Chronic fatigue R53.82 Active 21253680 Problem Controlled type 2 diabetes mellitus without complication, without long -term current use of insulin E11.9 Active 664943161 Problem Chronic major depressive disorder, recurrent episode F33.9 Active 17967402 Problem Knee pain, right M25.561 Active 81863071 Problem Diabetes type 2, controlled E11.9 Active 97521596 Problem Type 2 diabetes mellitus without complications E11.9 Active 638699210 Problem Hypogonadism in male E29.1 Active 07717906 Problem long-term (current) use of anticoagulants Z79.01 Active 742455066 ALLERGIES Substance Reaction Event Type Date Status Sulfamethoxazole-Trimethoprim Unknown Drug Allergy Aug, Active ENCOUNTERS Encounter Location Date Diagnosis [facility] [id number], [place] [address] Nov, Hypogonadism in male E29.1 [facility] [address], [place] [address] Nov, Type 2 diabetes mellitus without complications E11.9 and History of Coumadin therapy Z92.29 [facility] [id number], [place] [address] 18 Nov, 2017 Medicare welcome exam Z00.00 [facility] [address], [place] [address] 12 Nov, 2017 Type 2 diabetes mellitus without complications E11.9 ; History of Coumadin therapy Z92.29 and Hypogonadism in male E29.1 [facility] [address], [place] [address] 06 Nov, 2017 [facility] [address], [place] [address] Oct, [facility] [address], [place] [address] 77[address] 15 Oct, 2017 Diabetes type 2, controlled E11.9 [facility] [id number] [place] [address] 89211- 8012 15 Oct, 2017 Medicare welcome exam Z00.00 [facility] [address], [place] [address] Oct, Hypogonadism in male E29.1 [facility] [address], [place] [address] 09 Oct, 2017 [facility] [id number] [place] [address] 83199- 9154 September, Hypogonadism in male E29.1 [facility] [address], [place] [address] 1649 September, Medicare welcome exam Z00.00 [facility] [address], [place] [address] 06[address] September, Hypogonadism in male E29.1 [facility] [address], [place] [address] 60[address] Aug, Other chronic pain G89.29 ; Memory loss R41.3 ; Controlled type 2 diabetes mellitus without complication, without long-term current use of insulin E11.9 and Chronic major depressive disorder, recurrent episode F33.9 [facility] [address], [place] [address] 3[address] Aug, Medicare welcome exam Z00.00 [facility] [address], [place] [address] Aug, [facility] [address], [place] [address] Aug, Hypogonadism in male E29.1 [facility] [id number] [place] [address] 38457- 7757 Jul, [facility] [id number] [place] [address] 62037- 8867 Jul, Hypogonadism in male E29.1 [facility] [id number] [place] [address] 35459- 7650 Jul, [facility] [id number] [place] [address] -2000 Jul, Hypogonadism in male E29.1 [facility] [id number] [place] [address] 59774- 5652 Jul, Medicare welcome exam Z00.00 [facility] [id number] [place] [address] 12401- 1388 Jun, Medicare welcome exam Z00.00 [facility] [id number] [place] [address] 47754 -4071 Jun, Fever R50.9 and Influenza B J10.1 [facility] [address], [place] [address] Jun, Hypogonadism in male E29.1 [facility] [id number] [place] [address] 53042- 0244 09 Jun, 2017 Diabetes type 2, controlled E11.9 [facility] [address], [place] [address] 7016 May, Hypogonadism in male E29.1 [facility] [id number] [place] [address] 43683- 0861 May, 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 [facility] [id number] [place] [address] 53246- 3946 Apr, Hypogonadism in male E29.1 [facility] [id number] [place] [address] 74844- 5816 Apr, [facility] [id number] [place] [address] 38781- 0210 Apr, Medicare welcome exam Z00.00 and 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 [address] [place] [id number] [place] [address] 98286- 2473 Apr, Hypogonadism in male E29.1 [address] [place] [id number] [place] [address] 69980- 8501 Mar, Diabetes type 2, controlled E11.9 [address] [place] [id number] [place] [address] 19353- 1056 Mar, Hypogonadism in male E29.1 [facility] [id number] [place] [address] 72293- 6601 Mar, Hypogonadism in male E29.1 [address] [place] [id number] [place] [address] 42534- 2031 Feb, Hypogonadism in male E29.1 [address] [place] [id number] [place] [address] 86367- 6660 Feb, Malaise R53.81 [facility] [id number], [place] [address]- 7107 Feb, [place] [id number] [place] [address] 17031- 8958 Feb, Diabetes type 2, controlled E11.9 [facility] [id number] [place] [address] 98791- 8084 Feb, Chronic fatigue R53.82 ; Malaise R53.81 and Moderate episode of recurrent major depressive disorder F33.1 [id number] [place] [address] 60049- 5266 11 Jan, 2017 Diabetes type 2, controlled E11.9 [facility] [id number] [place] [address] 60063 2546 11 Jan, 2017 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.01 and long-term (current) use of anticoagulants Z79.01 [address] [place] [id number] [place] [address] 41459 2546 Dec, Diabetes type 2, controlled E11.9 and Hypertriglyceridemia E78.1 [address] [place] [id number] [place] [address] 78720- 7886 Dec, Diabetes type 2, controlled E11.9 [address] [place] [id number] [place] [address] 14386- 2626 Dec, High risk medication use Z79.899 and 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 [address] [place] [id number] [place] [address] 00497- 6357 Dec, High risk medication use Z79.899 [address] [id number] [place] [address] 71613 2541 Nov, Diabetes type 2, controlled E11.9 [address] [place] [id number] [place] [address] 91290 254 Oct, Diabetes type 2, controlled E11.9 [address] [place] [id number] [place] [address] 26816 2546 September, Diabetes type 2, controlled E11.9 [address] [place] [id number] [place] [address] 77519 2546 Aug, 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 [id number] [place] [address] 64800 2546 Aug, Hematoma of arm, right, initial encounter S40.021A and long-term (current) use of anticoagulants Z79.01 [address] [place] [id number] [place] [address] 97323- 8352 Aug, [facility] [address] [address]10 18 Aug, 2016 Cellulitis of right upper extremity L03.113 [address] 27444- 9285 14 Aug, 2016 Diabetes type 2, controlled E11.9 [address] [place] [address] 88508- 3819 Aug, Hammertoe of right foot M20.41 ; Hallux abducto valgus, left M20.12 and Onychomycosis B35.1 [address] [place] [address] 27434- 1000 Aug, 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 [address] [place] [id number] [place] [address] 64956- 1977 Aug, long-term (current) use of anticoagulants Z79.01 [address] [place] 94941- 9587 Aug, long-term (current) use of anticoagulants Z79.01 [facility] [address] [id number] [place] [address] 25177 -3042 Aug, Right shoulder pain M25.511 and Closed nondisplaced fracture of acromial end of right clavicle, initial encounter S42.034A [address] [place] [id number] [place] [address] 78236- 5105 Jul, Diabetes type 2, controlled E11.9 [address] [place] [address] 08799- 6097 03 Jun, 2016 Diabetes type 2, controlled E11.9 and 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 [address] [place] [place] [address]- 4437 May, [facility] [address], [place] [address]- 0583 Apr, [facility] [address] 3410 Mar, [facility] [address], [place] [address]- 4974 Feb, [facility] [address], [place] [address]- 5721 Dec, Diabetes type 2, controlled E11.9 [facility] [address] 9708 Dec, [facility] [address], [place] [address]- 8763 Nov, [facility] [address], [place] [address]- 8084 Nov, Type 2 diabetes mellitus without complications E11.9 [facility] [address], [place] [address]- 2807 Oct, Type 2 diabetes mellitus without complications E11.9 [facility] [address], [place] [address]- 8443 Aug, [facility] [address], [place] [address]- 8273 Aug, Type 2 diabetes mellitus without complications E11.9 [facility] [id number], [place] [address]- 1971 Jun, Type 2 diabetes mellitus without complications E11.9 and 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.02 [facility] [id number] 2933 May, [facility] [id number], [place] [address]- 8964 May, Diabetes type 2, controlled E11.9 [facility] [id number] [place] [address] 55804- 4782 Apr, Diabetes type 2, controlled E11.9 [facility] [id number] [place] [address] 73269- 6286 Mar, Diabetes type 2, controlled E11.9 ; Knee pain, right M25.561 ; Other chronic pain G89.29 and Medication monitoring encounter Z51.81 [facility] [id number] [place] [address] 96716- 0058 Feb, Type 2 diabetes mellitus without complications E11.9 ; High risk medication use Z79.899 and Anxiety F41.9 [facility] [id number] [place] [address] 40169- 0507 Jan, Diabetes 250.00 [facility] [id number] [place] [address] 63707- 8704 Dec, Diabetes 250.00 [facility] [id number] [place] [address] 38913- 7723 Nov, Diabetes 250.00 [facility] [id number] [place] [address] 96726- 1615 Nov, [facility] [id number] [place] [address] 25619- 6334 Oct, Diabetes mellitus type 1 250.01 and High risk medication use V58.69 [facility] [id number] [place] [address] 41716- 7120 Oct, [facility] [id number] [place] [address] 89769- 1648 September, [facility] [id number] [place] [address] 56632- 4165 Aug, [facility] [id number] [place] [address] 12951- 3281 Aug, [facility] [id number] [place] [address] 84759- 3496 Jul, [facility] [address] [id number] [place] [address]- 5989 Jul, [facility] [place] [facility] [address] [id number] [place] [address]- 2003 Jun, [facility] [place] [facility] [address] [id number] [place] [address]- 7371 Jun, [facility] [place] [facility] [address] [id number] [place] [address]- 6424 Jun, [facility] [place] [facility] [address] [id number] [place] [address]- 4691 May, [facility] [place] [facility] [address] [id number] [place] [address]- 6834 May, [facility] [place] [facility] [address] [id number] [place] [address]- 5613 Apr, [facility] [place] [facility] [address] [id number] [place] [address]- 2972 Apr, [facility] [place] [facility] [address] [id number] [place] [address]- 9805 Apr, [facility] [place] [facility] [address] [id number] [place] [address]- 2078 Apr, [facility] [place] [facility] [address] [id number] [place] [address]- 6872 Apr, [facility] [place] [facility] [address] [id number] [place] [address]- 0572 Apr, [facility] [place] [facility] [address] [id number] [place] 4351 Feb, [facility] [place] [facility] [address] [id number] [place] [address]- 5415 Feb, [facility] [place] [facility] [address] [id number] [place] [address]- 9661 Feb, [facility] [place] [facility] [address] [id number] [place] [address]- 0111 Feb, [facility] [place] [facility] [address] [id number] [place] [address]- 3465 Dec, [facility] [place] [facility] [address] [id number] [place] [address]- 5821 Dec, [facility] [place] [facility] [address] [id number] [place] [address]- 1095 Nov, [facility] [place] [facility] [address] [id number] [place] [address]- 4933 Nov, [facility] [place] [facility] [address] [id number] [place] [address]- 4776 Oct, [facility] [place] [facility] [address] [id number] [place] [address]- 8941 Oct, [facility] [place] [facility] [address] [id number] [place] [address]- 2836 Oct, [facility] [place] [facility] [address] [id number] [place] [address]- 9150 Oct, [facility] [place] [facility] [address] [id number] [place] [address]- 1237 Oct, [facility] [place] [facility] [address] [id number] [place] [address]- 3314 Oct, [facility] [place] [facility] [address] [id number] [place] [address]- 9278 September, [facility] [place] [facility] [address] [id number] [place] [address]- 7710 September, [facility] [place] [facility] [address] [id number] [place] [address]- 1360 September, [facility] [place] [facility] [address] [id number] [place] [address]- 6956 September, [facility] [place] [facility] [address] [id number] [place] [address]- 3938 September, [facility] [place] [facility] [address] [id number] [place] [address]- 7115 September, [facility] [place] [facility] [address] [id number] [place] [address]- 9408 Aug, [facility] [place] [facility] [address] [id number] [place] [address]- 1184 Aug, [facility] [place] [facility] [address] [id number] [place] [address]- 4658 Aug, [facility] [place] [facility] [address] [id number] [place] [address]- 9138 Aug, [facility] [place] [facility] [address] [id number] [place] [address]- 7391 Aug, [facility] [place] [facility] [address] [id number] [place] [address]- 8406 Aug, [facility] [place] [facility] [address] [id number] [place] [address]- 1170 Jul, [facility] [place] [facility] [address] [id number] [place] [address]- 1454 Jul, [facility] [place] [facility] [address] [id number] [place] [address]- 0204 Jul, [facility] [place] [facility] [address] [id number] [place] [address]- 0743 Jul, [facility] [place] [facility] [address] [id number] [place] [address]- 2200 May, [facility] [place] [facility] [address] [id number] [place] [address]- 9179 May, [facility] [place] [facility] [address] [id number] [place] [address]- 7699 Apr, [facility] [place] [facility] [address] [id number] [place] [address]- 2719 Apr, [facility] [place] [facility] [address] [id number] [place] [address]- 4276 04 Apr, 2012 [facility] [address] [id number] [place] [address]- 7086 Apr, 2012 [facility] [place] [facility] [address] [id number] [place] [address]- 3539 Apr, [facility] [place] [facility] [address] [id number] [place] [address]- 6675 Apr, 2012 [facility] [place] [facility] [address] [id number] [place] [address]- 5638 Feb, [facility] [place] [facility] [address] [id number] [place] [address]- 6221 Feb, [facility] [place] [facility] [address] [id number] [place] [address]- 0531 Feb, [facility] [place] [facility] [address] [id number] [place] [address]- 5919 Feb, [facility] [place] [facility] [address] [id number] [place] [address]- 5812 Feb, [facility] [place] [facility] [address] [id number] [place] [address]- 0451 Feb, [facility] [place] [facility] [address] [facility] [id number] [place] [address]- 6768 Feb, [facility] [place] [facility] [address] [id number] [place] [address]- 9217 Feb, [facility] [place] [facility] [address] [id number], [place] [address]- 2733 Jan, 2012 [facility] [place] [facility] [address] [id number] [place] [address]- 8561 23 Jan, 2012 [facility] [place] [facility] [address] [id number] [place] [address]- 5088 19 Jan, 2012 [facility] [place] [facility] [address] [id number], [place] [address]- 9572 03 Jan2012 [facility] [place] [facility] [address] [id number] [place] [address]- 3365 Dec, [facility] [address] [id number] [place] [address]- 8869 Dec, [facility] [address] [id number] [place] [address]- 5385 Dec, [facility] [address] [id number] [place] [address]- 6695 Nov, [facility] [address] [id number] [place] [address]- 6368 Nov, [facility] [address] [id number] [place] [address]- 3984 Oct, [facility] [address] [id number] [place] [address]- 3503 September, [facility] [address] [id number] [place] [address]- 5928 September, [facility] [address] [id number] [place] [address]- 7351 September, [facility] [address] [id number] [place] [address]- 3184 Aug, [facility] [address] [id number] [place] [address]- 3306 Aug, [facility] [address] [id number] [place] [address]- 7067 Aug, [facility] [place] [facility] [address] [id number] [place] [address]- 1309 Jul, [facility] [place] [facility] [address] [id number] [place] [address]- 5576 Jul, [facility] [place] [facility] [address] [id number] [place] [address]- 0975 Jun, [facility] [place] [facility] [address] [id number] [place] [address] Jun, [facility] [address] [id number] [place] [address] Jun, [facility] [address] [id number] [place] [address] Jun, [facility] [address] [facility] [id number] [place] [address] May, [facility] [place] [facility] [address] [id number] [place] [address] May, [facility] [address] [id number] [place] [address] Apr, [facility] [address] [id number] [place] [address] Apr, [facility] [address] [facility] [id number] [place] [address] Apr, [facility] [address] [id number] [place] [address] Apr, [facility] [address] [id number] [place] [address] Apr, [facility] [place] [facility] [address] [facility] [id number] [place] [address] Apr, [facility] [address] [id number], [place] [address] Mar, [facility] [place] [facility] [address] [id number], [place] [address] Mar, [facility] [place] [facility] [address] [id number] [place] [address] Mar, [facility] [place] [facility] [address] [id number], [place] [address] Mar, [facility] [place] [facility] [address] [facility] [id number] [place] [address] Mar, [facility] [place] [facility] [address] [id number] [place] [address] Mar, [facility] [place] [facility] [address] [id number] [place] [address] Feb, [facility] [place] [facility] [address] [id number] [place] [address] Feb, [facility] [place] [facility] [address] [id number] [place] [address] Feb, [facility] [place] [facility] [address] [id number] [place] [address] Feb, [facility] [place] [facility] [address] [id number] [place] [address] Feb, [facility] [place] [facility] [address] [id number] [place] [address] Jan, [facility] [place] [facility] [address] [id number] [place] [address] Jan, [facility] [place] [facility] [address] [id number] [place] [address] Jan, [facility] [place] [facility] [address] [id number] [place] [address] Dec, [facility] [place] [facility] [address] [id number] [place] [address] Dec, [facility] [place] [facility] [address] [id number] [place] [address] Nov, [facility] [place] [facility] [address] [id number] [place] [address] Oct, [facility] [place] [facility] [address] [id number] [place] [address] Oct, [facility] [place] [facility] [address] [id number] [place] [address] Oct, [facility] [place] [facility] [address] [id number] [place] [address] Oct, [facility] [address] [id number] [place] [address] 06 Oct, 2011 [facility] [place] [facility] [address] [id number] [place] [address] September, [facility] [place] [facility] [address] [id number] [place] [address] 18 Aug, 2011 [facility] [place] [facility] [address] [id number] [place] [address] 18 Aug, 2011 [facility] [place] [facility] [address] [id number] [place] [address] 17 Aug, 2011 [facility] [place] [facility] [address] [id number] [place] [address] 16 Aug, 2011 [facility] [place] [facility] [address] [id number] [place] [address] 13 Aug, 2011 [facility] [place] [facility] [address] [id number] [place] [address] Aug, [facility] [place] [facility] [address] [id number] [place] [address] Aug, [facility] [place] [facility] [address] [id number] [place] [address] 05 Aug, 2011 [facility] [place] [facility] [address] [id number] [place] [address] Aug, [facility] [place] [facility] [address] [id number] [address] Jul, [facility] [place] [facility] [address] [id number] [place] [address] Jul, [facility] [place] [facility] [address] [id number] [place] [address] Jul, [facility] [place] [facility] [address] [id number] [place] [address] 17 Jul, 2011 [facility] [place] [facility] [address] [id number] [place] [address] 08 Jul, 2011 [facility] [address] [id number] [place] [address] 15 Jun, 2011 [facility] [address] [id number] [place] [address] 14 Jun, 2011 [facility] [address] [id number] [place] [address] 08 Jun, 2011 [facility] [address] [id number] [place] [address]44 08 Jun, 2011 [facility] [address] [id number] [place] [address] May, [facility] [address] [id number] [place] [address] 13 May, 2011 [facility] [address] [id number] [place] [address] May, [facility] [address] [id number] [place] [address] 08 May, 2011 [facility] [address] [id number] [place] [address] May, [facility] [address] [id number] [place] [address] 04 May, 2011 [facility] [address] [id number] [place] [address] May, [facility] [address] [id number] [place] [address] Apr, [facility] [place] [facility] [address] [id number] [place] [address] Apr, [facility] [place] [facility] [address] [id number] [place] [address] Apr, [facility] [address] [id number] [place] [address] Apr, [facility] [place] [facility] [address] [id number] [place] [address] 13 Apr, 2011 [facility] [place] [facility] [address] [id number] [place] [address] Apr, [facility] [place] [facility] [address] [id number] [place] [address] Apr, [facility] [place] [facility] [address] [id number] [place] [address] Apr, [facility] [place] [facility] [address] [id number] [place] [address] Apr, [facility] [place] [facility] [address] [id number] [place] [address] Apr, [facility] [place] [facility] [address] [id number] [place] [address] Mar, [facility] [place] [facility] [address] [id number] [place] [address] Mar, [facility] [place] [facility] [address] [id number] [place] [address] Feb, [facility] [place] [facility] [address] [id number] [place] [address] Jun, [facility] [place] [facility] [address] [id number], [place] [address] Apr, [facility] [place] [facility] [address] [id number], [place] [address] Feb, [facility] [place] [facility] [address] [id number] [place] [address] Feb, [facility] [place] [facility] [address] [id number] [place] [address] Feb, [facility] [place] [facility] [address] [id number], [place] [address] Apr, [facility] [place] [facility] [address] [id number], [place] [address] Apr, [facility] [id number] [address] [address] Mar, [facility] [id number], [place] [address] Mar, [facility] [id number], [place] [address] Mar, [facility] [id number] [id number] [address] Feb, [facility] [id number] Feb, [facility] [id number] [address] Feb, [facility] [id number] [address] Jan, IMMUNIZATIONS No Known Immunizations SOCIAL HISTORY Never Assessed REASON FOR VISIT Testosterone WB-MA PLAN OF CARE VITAL SIGNS Height 69 in 2017-08-29 Weight 248 lbs 2017-08-29 Temperature 97.9 degrees Fahrenheit 2017-08-29 Heart Rate 90 bpm 2017-08-29 Respiratory Rate 20 2017-08-29 BMI 36.62 kg/m2 2017-08-29 Blood pressure systolic 124 mmHg 2017-08-29 Blood pressure diastolic 80 mmHg 2017-08-29 MEDICATIONS Medication Instructions Dosage Frequency Start Date End Date Duration Status Amlodipine Besylate 10 MG TAKE 1 TABLET ONE TIME DAILY (APPOINTMENT NEEDED FOR FURTHER REFILLS) 90 Active Blood Glucose Test Strip Test Strips as directed Nov, Active Enalapril Maleate 5 MG TAKE 1 TABLET TWICE DAILY (APPOINTMENT NEEDED FOR FURTHER REFILLS) 90 Active Warfarin Sodium 6 MG TAKE 1 TABLET EVERY DAY 90 Active Topamax 50 mg 1 tablet 12h 90 Active Clonazepam 1 MG Orally 3 times a day 1 tablet 8h 24 Jun, 2014 28 days Active [place] 5-325 MG Orally every 6 hrs 1 tablet 6h 11 Aug, 2017 28 days Active Lovastatin 20 mg 1 tablet with a meal 24h Active Clonidine HCl 0.2 MG 1 tablet 12h 90 Active Actos 45 MG Orally Once a day 1 tablet 24h 23 Feb, 2015 90 days Active Carvedilol 3.125 MG Orally 2 times a day 1 tablet 12h Not-Taking Potassium Chloride Pati ER 10 MEQ 1 tablet with food 24h Active Metformin HCl 500 MG TAKE 1 AND 1/2 TABLETS TWICE DAILY 90 Active Depo-Testosterone 100 MG/ML Intramuscular 2 times a month 1 ml 11 Feb, 2017 140 days Active Paroxetine HCl 40 MG TAKE 1 TABLET ONE TIME DAILY IN THE MORNING 90 Active Aspirin 81 MG Orally Once a day 1 tablet 24h Not-Taking RESULTS No Results PROCEDURES Procedure Date Ordered Result Body Site LAB NOT BILLED BY [facility] August 29, 2017 [facility] VISIT ESTABLISHED PATIENT August 29, 2017 PROTHROMBIN TIME August 29, 2017 INSTRUCTIONS MEDICATIONS ADMINISTERED No Known [...]
--- OUTSIDE RECORDS SUMMARY | 2018-04-28 05:30 | XMS REPORT ---
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 Role Phone MARLEY MCGRATH Unavailable PROBLEMS Type Condition ICD9-CM Code [id number] Code Onset Dates Condition Status SNOMED Code Problem Hammertoe of right foot M20.41 Active 358561057 Problem Moderate episode of recurrent major depressive disorder F33.1 Active 651952430 Problem Hypertriglyceridemia E78.1 Active 970395280 Problem Other chronic pain G89.29 Active 80669298 Problem Memory loss R41.3 Active 616201391 Problem 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.01 Active 6604809 Problem Chronic fatigue R53.82 Active 99078422 Problem Controlled type 2 diabetes mellitus without complication, without long -term current use of insulin E11.9 Active 293822162 Problem Chronic major depressive disorder, recurrent episode F33.9 Active 31398074 Problem Knee pain, right M25.561 Active 84663033 Problem Diabetes type 2, controlled E11.9 Active 99694378 Problem Type 2 diabetes mellitus without complications E11.9 Active 557934546 Problem Hypogonadism in male E29.1 Active 54867301 Problem FPC (current) use of anticoagulants Z79.01 Active 266179186 ALLERGIES No Information ENCOUNTERS Encounter Location Date Diagnosis [facility] [id number] [address] Dec, Hypogonadism in male E29.1 [facility] [id number] [address] Dec, [facility] [id number] [address] 4555 Nov, Hypogonadism in male E29.1 [facility] [id number] [address]51 Nov, Type 2 diabetes mellitus without complications E11.9 and History of Coumadin therapy Z92.29 [facility] [address] [facility] [id number] [place] [address] 2546 18 Nov, 2017 Medicare welcome exam Z00.00 [facility] [address] [facility] [id number] [address] 2546 Nov, Type 2 diabetes mellitus without complications E11.9 ; History of Coumadin therapy Z92.29 and Hypogonadism in male E29.1 [facility] [address] [facility] [id number] [place] [address] 2546 Nov, [facility] [address] [facility] [id number] [place] [address] 7496 Oct, [facility] [address] [facility] [id number] [place] [address] 2546 Oct, Diabetes type 2, controlled E11.9 [facility] [address] [facility] [id number] [address] 2546 Oct, Medicare welcome exam Z00.00 [facility] [address] [facility] [id number] [place] [address] 2546 Oct, Hypogonadism in male E29.1 [facility] [address] [facility] [id number] [place] [address] Oct, [facility] [address] [facility] [id number] [address] September, Hypogonadism in male E29.1 [facility] [address] [facility] [id number] [address] 8[address] September, Medicare welcome exam Z00.00 [facility] [address] [facility] [id number] [address] September, Hypogonadism in male E29.1 [facility] [address] [facility] [id number] [address] 3[address] Aug, Other chronic pain G89.29 ; Memory loss R41.3 ; Controlled type 2 diabetes mellitus without complication, without long-term current use of insulin E11.9 and Chronic major depressive disorder, recurrent episode F33.9 [facility] [id number] [place] [address] 68[address]- 0401 11 Aug, 2017 Medicare welcome exam Z00.00 [facility] [address] [address] 8[address] 09 Aug, 2017 [facility] [id number] [place] [address] 46680 -6891 Aug, Hypogonadism in male E29.1 [facility] [id number] [place] [address] 72327- 1052 Jul, [facility] [id number] [place] [address] 29082- 5949 Jul, Hypogonadism in male E29.1 [facility] [id number] [place] [address] 78110- 2543 Jul, [facility] [id number] [place] [address] 58501 -9559 Jul, Hypogonadism in male E29.1 [facility] [id number] [place] [address] 53417- 6534 Jul, Medicare welcome exam Z00.00 [facility] [address] [address]- 8530 22 Jun, 2017 Medicare welcome exam Z00.00 [facility] [address] [address] 19 Jun, 2017 Fever R50.9 and Influenza B J10.1 [facility] [id number] [address] 13 Jun, 2017 Hypogonadism in male E29.1 [facility] [address] [address]- 2897 09 Jun, 2017 Diabetes type 2, controlled E11.9 [facility] [address] [address]- 5378 May, Hypogonadism in male E29.1 [facility] [id number] [address] 2546 May, FPC (current) use of anticoagulants Z79.01 [facility] [address] [address] 2546 Apr, Hypogonadism in male E29.1 [facility] [id number] [address] 2547 Apr, [facility] [id number] [place] [address] 17273- 7375 Apr, Medicare welcome exam Z00.00 and terminal clerk (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 Z79.01 [facility] [id number] [address]- 3352 Apr, Hypogonadism in male E29.1 [facility] [address] [address]- 9425 Mar, Diabetes type 2, controlled E11.9 [facility] [id number] [address]- 7297 Mar, Hypogonadism in male E29.1 [facility] [address] [address]- 5784 Mar, Hypogonadism in male E29.1 [facility] [address] [address]- 0529 Feb, Hypogonadism in male E29.1 [facility] [id number] [address]- 6816 13 Feb, 2017 Malaise R53.81 [facility] [address] [address]- 67[address] Feb, [facility] [id number] [address]- 0649 Feb, Diabetes type 2, controlled E11.9 [facility] [id number] [place] [address] 26172- 8442 Feb, Chronic fatigue R53.82 ; Malaise R53.81 and Moderate episode of recurrent major depressive disorder F33.1 [facility] [id number] [place] [address] 19493- 6586 Jan, Diabetes type 2, controlled E11.9 [facility] [id number] [place] [address] 37022 2549 Jan, 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.01 and terminal clerk (current) use of anticoagulants Z79.01 [address] [id number] [place] [address] 83545- 4134 Dec, Diabetes type 2, controlled E11.9 and Hypertriglyceridemia E78.1 [facility] [facility] [id number] [place] [address] 33261- 3676 Dec, Diabetes type 2, controlled E11.9 [facility] [id number] [place] [address] 59372- 9459 Dec, High risk medication use Z79.899 and terminal clerk (current) use of anticoagulants Z79.01 [facility] [id number] [place] [address] 27285- 9520 Dec, High risk medication use Z79.899 [place] [id number] [place] [address] 15602- 1516 Nov, Diabetes type 2, controlled E11.9 [facility] [facility] [id number] [place] [address] 21688- 9015 Oct, Diabetes type 2, controlled E11.9 [facility] [id number] [place] [address] 82850- 3302 September, Diabetes type 2, controlled E11.9 [facility] [id number] [place] [address] 31031- 4521 Aug, terminal clerk (current) use of anticoagulants Z79.01 [place] [id number] [place] [address] 32134- 2453 Aug, Hematoma of arm, right, initial encounter S40.021A and FPC (current) use of anticoagulants Z79.01 [place] [id number] [place] [address] 69144- 4297 Aug, [facility] [address] [address] -[address]38 Aug, Cellulitis of right upper extremity L03.113 [place] [address] 23454- 1316 14 Aug, 2016 Diabetes type 2, controlled E11.9 [place] [address] 33455- 8784 Aug, Hammertoe of right foot M20.41 ; Hallux abducto valgus, left M20.12 and Onychomycosis B35.1 [place] [address] 50971- 2118 Aug, terminal clerk (current) use of anticoagulants Z79.01 [place] [id number] [place] [address] 22910- 5251 Aug, FPC (current) use of anticoagulants Z79.01 [place] [id number] [place] [address] 43861- 4688 Aug, terminal clerk (current) use of anticoagulants Z79.01 [facility] [id number] [place] [address] 46784 -6092 Aug, Right shoulder pain M25.511 and Closed nondisplaced fracture of acromial end of right clavicle, initial encounter S42.034A [place] [id number] [place] [address] 95161- 4569 Jul, Diabetes type 2, controlled E11.9 [place] [address] [place] [address]- 3423 Jun, Diabetes type 2, controlled E11.9 and FPC (current) use of anticoagulants Z79.01 [facility] [address] [address]- 2004 May, [facility] [id number] [place] [address] 46350- 1124 Apr, [facility] [id number] [place] [address] 20222- 0412 Mar, [facility] [id number] [place] [address] 47897- 3735 Feb, [facility] [id number] [place] [address] 07450- 4676 Dec, Diabetes type 2, controlled E11.9 [facility] [id number] [place] [address] 09443- 9195 Dec, [facility] [address] [address]- 2787 Nov, [facility] [id number] [place] [address] 87702- 3242 Nov, Type 2 diabetes mellitus without complications E11.9 [facility] [address] [address]- 9611 Oct, Type 2 diabetes mellitus without complications E11.9 [facility] [address] [address]- 6022 Aug, [facility] [id number] [place] [address] 28512- 1048 Aug, Type 2 diabetes mellitus without complications E11.9 [facility] [address] 5843 Jun, Type 2 diabetes mellitus without complications E11.9 and 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 assisted use of antiplatelet drug Z79.02 [facility] [id number] [place] [address] 37390- 3862 May, [facility] [address] [place] [address] 52569- 4619 May, Diabetes type 2, controlled E11.9 [facility] [id number] [place] [address] 27223- 3946 Apr, Diabetes type 2, controlled E11.9 [facility] [id number] [place] [address] 41654- 8270 Mar, Diabetes type 2, controlled E11.9 ; Knee pain, right M25.561 ; Other chronic pain G89.29 and Medication monitoring encounter Z51.81 [facility] [id number] [place] [address] 67464- 1516 Feb, Type 2 diabetes mellitus without complications E11.9 ; High risk medication use Z79.899 and Anxiety F41.9 [facility] [id number] [place] [address] 55478- 6047 Jan, Diabetes 250.00 [facility] [id number] [place] [address] 58544- 8839 Dec, Diabetes 250.00 [facility] [id number] [place] [address] 70560- 3336 Nov, Diabetes 250.00 [facility] [id number] [place] [address] 19068- 0315 Nov, [facility] [id number] [place] [address] 98346- 2043 Oct, Diabetes mellitus type 1 250.01 and High risk medication use V58.69 [facility] [id number] [place] [address] 21167- 0897 Oct, [facility] [id number] [place] [address] 92877- 1557 September, [facility] [id number] [place] [address] 46100- 8176 Aug, [facility] [place] [facility] [address] [id number] [place] [address]- 8843 13 Aug, 2014 [facility] [place] [facility] [address] [id number] [place] [address]- 9207 Jul, [facility] [place] [facility] [address] [id number] [place] [address]- 5724 Jul, [facility] [place] [facility] [address] [id number] [place] [address]- 1505 Jun, [facility] [place] [facility] [address] [id number] [place] [address]- 9849 Jun, [facility] [place] [facility] [address] [id number] [place] [address]- 3359 Jun, [facility] [place] [facility] [address] [id number] [place] [address]- 6917 May, [facility] [place] [facility] [address] [id number] [place] [address]- 3268 May, [facility] [place] [facility] [address] [id number] [place] [address]- 3561 Apr, [facility] [place] [facility] [address] [id number] [place] [address]- 7062 Apr, [facility] [place] [facility] [address] [id number] [place] [address]- 1170 Apr, [facility] [place] [facility] [address] [id number] [place] [address]- 0868 Apr, [facility] [place] [facility] [address] [id number] [place] [address] 2546 Apr, [facility] [place] [facility] [address] [id number] [place] 2286 Apr, [facility] [place] [facility] [address] [id number] [place] [address]- 3529 31 Feb, 2014 [facility] [place] [facility] [address] [id number] [place] [address]- 6031 Feb, [facility] [place] [facility] [address] [id number] [place] [address]- 6400 Feb, [facility] [place] [facility] [address] [id number] [place] [address]- 7751 Feb, [facility] [place] [facility] [address] [id number] [place] [address]- 0347 Dec, [facility] [place] [facility] [address] [id number] [place] [address]- 3955 Dec, [facility] [place] [facility] [address] [id number] [place] [address]- 6133 Nov, [facility] [place] [facility] [address] [id number] [place] [address]- 0049 Nov, [facility] [place] [facility] [address] [id number] [place] [address]- 3179 Oct, [facility] [place] [facility] [address] [id number] [place] [address]- 2167 Oct, [facility] [place] [facility] [address] [id number] [place] [address]- 3275 Oct, [facility] [place] [facility] [address] [id number] [place] [address]- 9978 Oct, [facility] [place] [facility] [address] [id number] [place] [address]- 2354 Oct, [facility] [place] [facility] [address] [id number] [place] [address]- 1603 Oct, [facility] [place] [facility] [address] [id number] [place] [address]- 3442 September, [facility] [place] [facility] [address] [id number] [place] [address]- 0454 September, [facility] [place] [facility] [address] [id number] [place] 6071 September, [facility] [place] [facility] [address] [id number] [place] [address]- 7388 September, [facility] [place] [facility] [address] [id number] [place] 5674 September, [facility] [place] [facility] [address] [id number] [place] [address]- 7891 September, [facility] [place] [facility] [address] [id number] [place] [address]- 1938 Aug, [facility] [place] [facility] [address] [id number] [place] [address]- 5954 Aug, [facility] [place] [facility] [address] [id number] [place] [address]- 9929 Aug, [facility] [place] [facility] [address] [id number] [place] [address]- 5854 Aug, [facility] [place] [facility] [address] [id number] [place] [address]- 9687 Aug, [facility] [place] [facility] [address] [id number] [place] [address]- 6006 Aug, [facility] [place] [facility] [address] [id number] [place] [address]- 4550 Jul, [facility] [place] [facility] [address] [id number] [place] [address]- 8402 Jul, [facility] [place] [facility] [address] [id number] [place] [address]- 2580 Jul, [facility] [place] [facility] [address] [id number] [place] [address]- 8849 Jul, [facility] [place] [facility] [address] [id number] [place] [address]- 4207 May, [facility] [place] [facility] [address] [id number] [place] [address]- 0039 May, [facility] [place] [facility] [address] [id number] [place] [address]- 4149 Apr, [facility] [address] [id number] [place] [address]- 3787 Apr, [facility] [place] [facility] [address] [id number] [address]- 2546 Apr, [facility] [place] [facility] [address] [facility] [id number] [place] [address]- 2546 Apr, [facility] [place] [facility] [address] [id number] [address]- 2540 Apr, [facility] [place] [facility] [address] [id number] [place] [address]- 2543 Apr, [facility] [place] [facility] [address] [id number] [address]- 0951 Feb, [facility] [place] [facility] [address] [id number] [place] [address]- 8911 Feb, [facility] [place] [facility] [address] [id number] [address]- 9159 Feb, [facility] [place] [facility] [address] [id number] [address]- 5054 Feb, [facility] [place] [facility] [address] [id number] [place] [address]- 2510 Feb, [facility] [place] [facility] [address] [id number] [place] [address] 2548 Feb, [facility] [place] [facility] [address] [id number] [address]- 2545 Feb, [facility] [place] [facility] [address] [id number] [place] [address]- 254 Feb, [facility] [place] [facility] [address] [id number] [place] [address] 254 Jan, [facility] [place] [facility] [address] [id number] [address]- 2546 Jan, [facility] [place] [facility] [address] [id number] [place] [address]- 9729 Jan, [facility] [address] [id number] [place] [address]- 8688 Jan, [facility] [address] [id number] [place] [address]- 0032 Dec, [facility] [address] [id number] [place] [address]- 3797 Dec, [facility] [address] [id number] [place] [address]- 5817 Dec, [facility] [address] [id number] [place] [address]- 6772 Nov, [facility] [address] [id number] [place] [address]- 5391 Nov, [facility] [address] [id number] [place] [address]- 5965 Oct, [facility] [address] [id number] [place] [address]- 5382 September, [facility] [address] [id number] [place] [address] September, [facility] [address] [id number] [place] [address] September, [facility] [address] [id number] [place] [address] Aug, [facility] [address] [id number] [place] [address] 16 Aug, 2012 [facility] [place] [facility] [address] [id number] [place] [address] 15 Aug, 2012 [facility] [place] [facility] [address] [id number] [place] [address] Jul, [facility] [address] [id number] [place] [address] Jul, [facility] [place] [facility] [address] [id number] [place] [address] Jun, [facility] [place] [facility] [address] [id number] [place] [address] Jun, [facility] [place] [facility] [address] [id number] [place] [address] Jun, [facility] [place] [facility] [address] [id number] [place] [address] Jun, [facility] [place] [facility] [address] [id number] [place] [address] May, [facility] [place] [facility] [address] [id number] [place] [address] May, [facility] [place] [facility] [address] [id number] [place] [address] Apr, [facility] [place] [facility] [address] [id number] [place] [address] Apr, [facility] [place] [facility] [address] [id number] [place] [address] Apr, [facility] [place] [facility] [address] [id number] [place] [address] Apr, [facility] [place] [facility] [address] [id number] [place] [address] Apr, [facility] [place] [facility] [address] [id number] [place] [address] Apr, [facility] [place] [facility] [address] [id number] [place] [address] Mar, [facility] [place] [facility] [address] [id number] [place] [address] Mar, [facility] [place] [facility] [address] [id number] [place] [address] Mar, [facility] [place] [facility] [address] [id number] [place] [address] Mar, [facility] [place] [facility] [address] [id number] [place] [address] Mar, [facility] [place] [facility] [address] [id number] [place] [address] Mar, [facility] [place] [facility] [address] [id number] [place] [address] Feb, [facility] [place] [facility] [address] [id number] [place] [address] Feb, [facility] [place] [facility] [address] [id number] [place] [address], [place] [address] Feb, [facility] [place] [facility] [address] [id number] [place] [address] Feb, [facility] [place] [facility] [address] [id number] [place] [address] Feb, [facility] [place] [facility] [address] [id number] [place] [address] Jan, [facility] [place] [facility] [address] [id number] [place] [address] Jan, [facility] [place] [facility] [address] [id number] [place] [address] Jan, [facility] [place] [facility] [address] [id number] [place] [address] Dec, [facility] [place] [facility] [address] [id number] [place] [address] Dec, [facility] [place] [facility] [address] [id number] [place] [address] Nov, [facility] [place] [facility] [address] [id number] [place] [address] Oct, [facility] [place] [facility] [address] [id number] [place] [address] Oct, [facility] [place] [facility] [address] [id number] [place] [address] Oct, [facility] [place] [facility] [address] [id number] [place] [address] Oct, [facility] [place] [facility] [address] [id number] [place] [address] Oct, [facility] [place] [facility] [address] [id number] [place] [address] September, [facility] [place] [facility] [address] [id number] [place] [address] Aug, [facility] [place] [facility] [address] [id number] [place] [address] 18 Aug, 2011 [facility] [place] [facility] [address] [id number] [place] [address] 17 Aug, 2011 [facility] [place] [facility] [address] [id number] [place] [address] 16 Aug, 2011 [facility] [place] [facility] [address] [id number] [place] [address] 13 Aug, 2011 [facility] [place] [facility] [address] [id number] [place] [address] Aug, [facility] [place] [facility] [address] [id number] [place] [address] Aug, [facility] [place] [facility] [address] [id number] [place] [address] Aug, [facility] [place] [facility] [address] [id number] [place] [address] Aug, [facility] [place] [facility] [address] [id number] [place] [address] Jul, [facility] [place] [facility] [address] [id number] [place] [address] Jul, [facility] [place] [facility] [address] [id number] [place] [address] 20 Jul, 2011 [facility] [address] [id number] [place] [address] 17 Jul, 2011 [facility] [place] [facility] [address] [id number] [place] [address] 08 Jul, 2011 [facility] [place] [facility] [address] [id number] [place] [address] 15 Jun, 2011 [facility] [place] [facility] [address] [id number] [place] [address] 14 Jun, 2011 [facility] [place] [facility] [address] [id number] [place] [address] 08 Jun, 2011 [facility] [place] [facility] [address] [id number] [place] [address] 08 Jun, 2011 [facility] [address] [id number] [place] [address] May, [facility] [place] [facility] [address] [id number] [place] [address] May, [facility] [place] [facility] [address] [id number] [place] [address] May, [facility] [place] [facility] [address] [id number] [place] [address] May, [facility] [place] [facility] [address] [id number] [place] [address] May, [facility] [place] [facility] [address] [id number] [place] [address] May, [facility] [place] [facility] [address] [id number] [place] [address] May, [facility] [place] [facility] [address] [id number] [place] [address] Apr, [facility] [place] [facility] [address] [id number] [place] [address] Apr, [facility] [place] [facility] [address] [id number] [place] [address] 13 Apr, 2011 [facility] [address] [id number] [place] [address] Apr, [facility] [address] [id number] [place] [address] Apr, [facility] [address] [id number] [place] [address] Apr, [facility] [address] [id number] [place] [address] Apr, [facility] [address] [id number] [place] [address] Apr, [facility] [address] [id number] [place] [address] Apr, [facility] [address] [id number] [place] [address] Apr, [facility] [address] [id number] [place] [address] Mar, [facility] [address] [id number] [place] [address] Mar, [facility] [address] [id number] [place] [address] Feb, [facility] [address] [id number] [place] [address] Jun, [facility] [address] [id number] [place] [address] Apr, [facility] [place] [facility] [address] [id number] [place] [address] Feb, [facility] [place] [facility] [address] [id number] [place] [address] Feb, [facility] [place] [facility] [address] [id number] [place] [address] Feb, [facility] [address] [id number] [address] Apr, [facility] [address] [facility] [id number] [address] Apr, [facility] [address] [id number] [address] Mar, [facility] [address] [facility] [id number] [address] Mar, [facility] [id number] [address] Mar, [facility] [id number] [address] Feb, [facility] [id number] [address] Feb, [facility] [id number] [address] Feb, [facility] [address] [id number] [address] Jan, IMMUNIZATIONS Vaccine Route Administration Date Status TESTOSTERONE (PT'S OWN) IM Intramuscular September 12, 2017 Administered SOCIAL HISTORY Never Assessed REASON FOR VISIT Testosterone injection- Surendra Shah RN PLAN OF CARE VITAL SIGNS MEDICATIONS Unknown Medications RESULTS No Results PROCEDURES Procedure Date Ordered Result Body Site TESTOSTERONE (PT'S OWN) September 12, 2017 THER/PROPH/DIAG INJ, SC/IM September 12, 2017 INSTRUCTIONS MEDICATIONS ADMINISTERED No Known Medications [...]
--- OUTSIDE RECORDS SUMMARY | 2018-04-28 05:31 | XMS REPORT ---
Author Author MARLEY MCGRATH Organization [facility] Address [address] [place] [address] Care Team Providers Care Social Work Professor Name Role Phone MARLEY MCGRATH Unavailable PROBLEMS Type Condition ICD9-CM Code RPG45-AA Code Onset Dates Condition Status SNOMED Code Problem Hammertoe of right foot M20.41 Active 976920183 Problem Moderate episode of recurrent major depressive disorder F33.1 Active 036770209 Problem Hypertriglyceridemia E78.1 Active 654768557 Problem Other chronic pain G89.29 Active 05497375 Problem Memory loss R41.3 Active 430578175 Problem 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.01 Active 2437497 Problem Chronic fatigue R53.82 Active 53180616 Problem Controlled type 2 diabetes mellitus without complication, without long -term current use of insulin E11.9 Active 680813933 Problem Chronic major depressive disorder, recurrent episode F33.9 Active 77405043 Problem Knee pain, right M25.561 Active 29856684 Problem Diabetes type 2, controlled E11.9 Active 78993766 Problem Type 2 diabetes mellitus without complications E11.9 Active 300511013 Problem Hypogonadism in male E29.1 Active 05952178 Problem long-term (current) use of anticoagulants Z79.01 Active 608890847 ALLERGIES No Information ENCOUNTERS Encounter Location Date Diagnosis [facility] [address], [place] [address] Nov, Hypogonadism in male E29.1 [facility] [address], [place] [address] Nov, Type 2 diabetes mellitus without complications E11.9 and History of Coumadin therapy Z92.29 [facility] [id number], [place] [address] 18 Nov, 2017 Medicare welcome exam Z00.00 [facility] [id number], [place] [address] Nov, Type 2 diabetes mellitus without complications E11.9 ; History of Coumadin therapy Z92.29 and Hypogonadism in male E29.1 [facility] [address], [place] [address] Nov, [facility] [address], [place] [address] Oct, [facility] [address], [place] [address] Oct, Diabetes type 2, controlled E11.9 [facility] [address], [place] [address] Oct, Medicare welcome exam Z00.00 [facility] [address] [address] Oct, Hypogonadism in male E29.1 [facility] [address], [place] [address] Oct, [facility] [address], [place] [address] September, Hypogonadism in male E29.1 [facility] [address], [place] [address] 70[address] September, Medicare welcome exam Z00.00 [facility] [address], [place] [address] September, Hypogonadism in male E29.1 [facility] [id number] [address] Aug, Other chronic pain G89.29 ; Memory loss R41.3 ; Controlled type 2 diabetes mellitus without complication, without long-term current use of insulin E11.9 and Chronic major depressive disorder, recurrent episode F33.9 [facility] [address], [place] [address] 11 Aug, 2017 Medicare welcome exam Z00.00 [facility] [address], [place] [address] 09 Aug, 2017 [facility] [address], [place] [address] Aug, Hypogonadism in male E29.1 [facility] [id number], [place] [address] Jul, [facility] [id number] [place] [address]- 3053 Jul, Hypogonadism in male E29.1 [facility] [id number] [place] [address]- 2080 Jul, [facility] [id number] [place] [address] Jul, Hypogonadism in male E29.1 [facility] [id number] [place] [address]- 0837 Jul, Medicare welcome exam Z00.00 [facility] [address], [place] [address] Jun, Medicare welcome exam Z00.00 [facility] [address], [place] [address] Jun, Fever R50.9 and Influenza B J10.1 [facility] [address], [place] [address] Jun, Hypogonadism in male E29.1 [facility] [address], [place] [address] 4[address] Jun, Diabetes type 2, controlled E11.9 [facility] [address] [place] [address]- 5818 May, Hypogonadism in male E29.1 [facility] [address], [place] [address] May, 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 [facility] [address], [place] [address] 2546 Apr, Hypogonadism in male E29.1 [facility] [address], [place] [address] 2546 Apr, [facility] [address], [place] [address] 2546 Apr, Medicare welcome exam Z00.00 and 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 [facility] [address], [place] [address] 2546 Apr, Hypogonadism in male E29.1 [place] [id number], [place] [address] 2546 Mar, Diabetes type 2, controlled E11.9 [facility] [id number] [place] [address] 2546 Mar, Hypogonadism in male E29.1 [facility] [address], [place] [address] 2546 Mar, Hypogonadism in male E29.1 [facility] [address], [place] [address] 2546 Feb, Hypogonadism in male E29.1 [facility] [address], [place] [address] 2546 Feb, Malaise R53.81 [facility] [address], [place] [address] 2546 Feb, [place] [id number] [place] [address]- 5226 Feb, Diabetes type 2, controlled E11.9 [facility] [address], [place] [address] 2546 06 Feb, 2017 Chronic fatigue R53.82 ; Malaise R53.81 and Moderate episode of recurrent major depressive disorder F33.1 [facility] [address] [place] [address]- 0362 11 Jan, 2017 Diabetes type 2, controlled E11.9 [facility] [id number] [place] [address] 2546 Jan, 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.01 and 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 [place] [id number] [place] [address] 29[address] 2546 Dec, Diabetes type 2, controlled E11.9 and Hypertriglyceridemia E78.1 [place] [facility] [id number] [place] [address] 22[address]- 3652 Dec, Diabetes type 2, controlled E11.9 [place] [facility] [id number] [place] [address]60- 3281 Dec, High risk medication use Z79.899 and 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 [place] [id number] [place] [address] 79838- 4662 Dec, High risk medication use Z79.899 [place] [id number] [place] [address]39 2544 Nov, Diabetes type 2, controlled E11.9 [place] [id number] [place] [address] 28655 2542 Oct, Diabetes type 2, controlled E11.9 [place] [facility] [id number] [place] [address] 29395 2545 September, Diabetes type 2, controlled E11.9 [place] [id number] [place] [address] 2540 Aug, 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 [place] [address] [place] [address] 11169- 2546 Aug, Hematoma of arm, right, initial encounter S40.021A and 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 [place] [id number] [place] [address] 25018- 5748 Aug, [facility] [address] [address] Aug, Cellulitis of right upper extremity L03.113 [place] [address] [address]- 8689 Aug, Diabetes type 2, controlled E11.9 [place] [address] [address]- 8602 Aug, Hammertoe of right foot M20.41 ; Hallux abducto valgus, left M20.12 and Onychomycosis B35.1 [place] [address] [address]- 0103 Aug, long-term (current) use of anticoagulants Z79.01 [place] [address] [address]- 6772 Aug, 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 [place] [address] [address]- 9411 Aug, long-term (current) use of anticoagulants Z79.01 [facility] [id number] [place] [address] 83425 -0049 Aug, Right shoulder pain M25.511 and Closed nondisplaced fracture of acromial end of right clavicle, initial encounter S42.034A [place] [id number] [place] [address] 12429- 4483 Jul, Diabetes type 2, controlled E11.9 [place] [address] [address]- 0082 Jun, Diabetes type 2, controlled E11.9 and long-term (current) use of anticoagulants Z79.01 [place] [id number] [place] [address] 48368- 3382 May, [facility] [address], [place] [address]- 6981 Apr, [facility] [address], [place] [address]- 3555 Mar, [facility] [address], [place] [address]- 0275 Feb, [facility] [id number] [place] [address] 04528- 9075 Dec, Diabetes type 2, controlled E11.9 [facility] [address], [place] [address]- 8022 Dec, [facility] [address], [place] [address]- 7276 Nov, [facility] [address], [place] [address]- 5042 Nov, Type 2 diabetes mellitus without complications E11.9 [facility] [address], [place] [address]- 7987 Oct, Type 2 diabetes mellitus without complications E11.9 [facility] [address], [place] [address]- 7897 Aug, [facility] [address], [place] [address]- 0345 Aug, Type 2 diabetes mellitus without complications E11.9 [facility] [address], [place] [address]- 0924 Jun, Type 2 diabetes mellitus without complications E11.9 and 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 travel guide use of antiplatelet drug Z79.02 [facility] [address], [place] [address]- 3384 May, [facility] [address], [place] [address]- 1029 May, Diabetes type 2, controlled E11.9 [facility] [address] [place] [address] 64015- 3123 Apr, Diabetes type 2, controlled E11.9 [facility] [id number] [place] [address] 04665- 3642 Mar, Diabetes type 2, controlled E11.9 ; Knee pain, right M25.561 ; Other chronic pain G89.29 and Medication monitoring encounter Z51.81 [facility] [id number] [place] [address] 76226- 9120 Feb, Type 2 diabetes mellitus without complications E11.9 ; High risk medication use Z79.899 and Anxiety F41.9 [facility] [id number] [place] [address] 12936- 2223 Jan, Diabetes 250.00 [facility] [id number] [place] [address] 50645- 1113 Dec, Diabetes 250.00 [facility] [id number] [place] [address] 58656- 6116 Nov, Diabetes 250.00 [facility] [id number] [place] [address] 44687- 1465 Nov, [facility] [id number] [place] [address] 40895- 3141 Oct, Diabetes mellitus type 1 250.01 and High risk medication use V58.69 [facility] [id number] [place] [address] 68545- 5099 Oct, [facility] [id number] [place] [address] 68620- 2753 September, [facility] [id number] [place] [address] 19202- 2109 Aug, [facility] [id number] [place] [address] 29376- 0123 Aug, [facility] [address], [place] [address]- 7736 Jul, [facility] [address] [facility] [id number] [place] [address]- 4792 Jul, [facility] [place] [facility] [address] [id number] [place] [address]- 9666 Jun, [facility] [place] [facility] [address] [id number] [place] [address]- 0126 Jun, [facility] [place] [facility] [address] [id number] [place] [address]- 0926 Jun, [facility] [place] [facility] [address] [id number] [place] [address]- 1574 May, [facility] [place] [facility] [address] [id number] [place] [address]- 1316 May, [facility] [place] [facility] [address] [id number] [place] [address]- 2129 Apr, [facility] [place] [facility] [address] [id number] [place] [address]- 0340 Apr, [facility] [place] [facility] [address] [id number] [place] [address]- 4205 Apr, [facility] [place] [facility] [address] [id number] [place] [address]- 9072 Apr, [facility] [place] [facility] [address] [id number] [place] [address]- 7142 Apr, [facility] [place] [facility] [address] [id number] [place] [address]- 0990 Apr, [facility] [place] [facility] [address] [id number] [place] [address]37 Feb, [facility] [place] [facility] [address] [id number] [place] Feb, [facility] [place] [facility] [address] [id number] [place] [address]- 1666 Feb, [facility] [place] [facility] [address] [id number] [place] [address]- 1606 Feb, [facility] [place] [facility] [address] [id number] [place] [address]- 4730 Dec, [facility] [place] [facility] [address] [id number] [place] [address]- 9902 Dec, [facility] [place] [facility] [address] [id number] [place] [address]- 7711 Nov, [facility] [place] [facility] [address] [id number] [place] [address]- 7982 Nov, [facility] [place] [facility] [address] [id number] [place] [address]- 3912 Oct, [facility] [place] [facility] [address] [id number] [place] [address]- 4165 Oct, [facility] [place] [facility] [address] [id number] [place] [address]- 0683 Oct, [facility] [place] [facility] [address] [id number] [place] [address]- 9267 Oct, [facility] [place] [facility] [address] [id number] [place] [address]- 4743 Oct, [facility] [place] [facility] [address] [id number] [place] [address]- 4253 Oct, [facility] [place] [facility] [address] [id number] [place] [address]- 3790 September, [facility] [place] [facility] [address] [id number] [address]- 8061 September, [facility] [place] [facility] [address] [id number] [place] [address]- 2423 September, [facility] [place] [facility] [address] [id number] [place] [address]- 7248 September, [facility] [place] [facility] [address] [id number] [place] [address]- 9534 September, [facility] [place] [facility] [address] [id number] [place] [address]- 2156 September, [facility] [place] [facility] [address] [id number] [place] [address]- 5130 Aug, [facility] [place] [facility] [address] [id number] [place] [address]- 9156 Aug, [facility] [place] [facility] [address] [id number] [place] [address]- 3432 Aug, [facility] [place] [facility] [address] [id number] [place] [address]- 6815 Aug, [facility] [place] [facility] [address] [id number] [place] [address]- 4468 Aug, [facility] [place] [facility] [address] [id number] [place] [address]- 3834 Aug, [facility] [place] [facility] [address] [id number] [place] [address]- 8712 Jul, [facility] [place] [facility] [address] [id number] [place] [address]- 6021 Jul, [facility] [place] [facility] [address] [id number] [place] [address]- 9297 Jul, [facility] [place] [facility] [address] [id number] [place] [address]- 2377 Jul, [facility] [place] [facility] [address] [id number] [place] [address]- 9246 May, [facility] [place] [facility] [address] [id number] [place] [address]- 3667 May, [facility] [place] [facility] [address] [id number] [place] [address]- 9944 Apr, [facility] [place] [facility] [address] [id number] [place] [address]- 3297 Apr, [facility] [place] [facility] [address] [id number] [place] [address]- 7047 Apr, [facility] [place] [facility] [address] [id number] [place] [address]- 2028 Apr, 2012 [facility] [place] [facility] [address] [id number] [place] [address]- 0309 Apr, [facility] [place] [facility] [address] [id number] [place] [address]- 7363 Apr, [facility] [place] [facility] [address] [id number] [place] [address]- 0542 Feb, [facility] [address] [id number] [place] [address]- 8208 Feb, [facility] [address] [id number] [place] [address]- 2055 Feb, [facility] [address] [id number] [place] [address]- 8589 Feb, [facility] [address] [id number] [place] [address]- 6413 Feb, [facility] [address] [id number] [place] [address]- 0762 Feb, [facility] [address] [id number], [place] [address]- 5245 Feb, [facility] [place] [facility] [address] [id number] [place] [address]- 8490 Feb, [facility] [place] [facility] [address] [id number], [place] [address]- 3115 Jan, 2012 [facility] [place] [facility] [address] [id number] [place] [address]- 1464 23 Jan, 2012 [facility] [place] [facility] [address] [id number] [place] [address]- 3351 19 Jan, 2012 [facility] [place] [facility] [address] [id number], [place] [address]- 2541 Jan, 2012 [facility] [place] [facility] [address] [id number], [place] [address]- 4880 Dec, [facility] [address] [id number] [place] [address]- 9966 Dec, [facility] [place] [facility] [address] [id number] [place] [address]- 0264 Dec, [facility] [place] [facility] [address] [id number] [place] [address]- 6884 Nov, [facility] [place] [facility] [address] [id number] [place] [address]- 3569 Nov, [facility] [place] [facility] [address] [id number] [place] [address]- 3072 Oct, [facility] [place] [facility] [address] [id number] [place] [address]- 8830 September, [facility] [address] [id number] [place] [address]- 5944 September, [facility] [place] [facility] [address] [id number] [place] [address]- 1492 September, [facility] [place] [facility] [address] [id number] [place] [address]- 4999 Aug, [facility] [place] [facility] [address] [id number] [place] [address]- 1629 Aug, [facility] [place] [facility] [address] [id number] [place] [address]- 7379 Aug, [facility] [place] [facility] [address] [id number] [place] [address]- 7530 Jul, [facility] [place] [facility] [address] [id number] [place] [address]- 0995 Jul, [facility] [place] [facility] [address] [id number] [place] 7452 Jun, [facility] [place] [facility] [address] [id number] [place] [address]- 8610 Jun, [facility] [place] [facility] [address] [id number] [place] [address]- 1536 Jun, [facility] [place] [facility] [address] [id number] [place] [address]- 6546 Jun, [facility] [place] [facility] [address] [id number] [place] [address] May, [facility] [place] [facility] [address] [id number] [place] [address] May, [facility] [place] [facility] [address] [id number] [place] [address] Apr, [facility] [place] [facility] [address] [id number] [place] [address] Apr, [facility] [place] [facility] [address] [id number] [place] [address] Apr, [facility] [place] [facility] [address] [id number] [place] [address] Apr, [facility] [place] [facility] [address] [id number] [place] [address] Apr, [facility] [place] [facility] [address] [id number] [place] [address] Apr, [facility] [place] [facility] [address] [facility] [id number] [place] [address] Mar, [facility] [place] [facility] [address] [id number] [place] [address] Mar, [facility] [place] [facility] [address] [id number] [place] [address] Mar, [facility] [place] [facility] [address] [id number] [place] [address] Mar, [facility] [place] [facility] [address] [id number] [place] [address] Mar, [facility] [place] [facility] [address] [id number] [place] [address] Mar, [facility] [place] [facility] [address] [id number] [place] [address] Feb, [facility] [place] [facility] [address] [id number] [place] [address] Feb, [facility] [place] [facility] [address] [facility] [id number] [place] [address]- [address] Feb, [facility] [place] [facility] [address] [id number] [place] [address]- [address] Feb, [facility] [place] [facility] [address] [id number] [place] [address] Feb, [facility] [place] [facility] [address] [id number] [place] [address] Jan, [facility] [place] [facility] [address] [id number] [place] [address] Jan, [facility] [place] [facility] [address] [id number] [place] [address] Jan, [facility] [place] [facility] [address] [id number] [place] [address] Dec, [facility] [place] [facility] [address] [id number] [place] [address] Dec, [facility] [place] [facility] [address] [id number], [place] [address] Nov, [facility] [place] [facility] [address] [id number], [place] [address] Oct, [facility] [place] [facility] [address] [id number] [place] [address] Oct, [facility] [place] [facility] [address] [facility] [id number], [place] [address] Oct, [facility] [place] [facility] [address] [facility] [id number] [place] [address] Oct, [facility] [place] [facility] [address] [id number] [place] [address] 06 Oct, 2011 [facility] [address] [id number] [place] [address] 16 Sep, 2011 [facility] [place] [facility] [address] [id number] [place] [address] 18 Aug, 2011 [facility] [place] [facility] [address] [id number] [place] [address] 18 Aug, 2011 [facility] [place] [facility] [address] [id number] [place] [address] 17 Aug, 2011 [facility] [address] [id number] [place] [address] 16 Aug, 2011 [facility] [place] [facility] [address] [id number] [place] [address] 13 Aug, 2011 [facility] [address] [address] [id number] [place] [address] 11 Aug, 2011 [facility] [address] [id number] [place] [address] 11 Aug, 2011 [facility] [place] [facility] [address] [id number] [place] [address] 05 Aug, 2011 [facility] [address] [id number] [place] [address] 05 Aug, 2011 [facility] [place] [facility] [address] [id number] [place] [address] 20 Jul, 2011 [facility] [place] [facility] [address] [id number] [place] [address] 20 Jul, 2011 [facility] [place] [facility] [address] [id number] [place] [address] 20 Jul, 2011 [facility] [place] [facility] [address] [id number] [place] [address] 5866 17 Jul, 2011 [facility] [place] [facility] [address] [id number] [place] [address] 08 Jul, 2011 [facility] [place] [facility] [address] [id number] [place] [address] 2019 15 Jun, 2011 [facility] [place] [facility] [address] [id number] [place] [address] 14 Jun, 2011 [facility] [place] [facility] [address] [id number] [place] [address] 08 Jun, 2011 [facility] [place] [facility] [address] [id number] [place] [address] 6069 08 Jun, 2011 [facility] [place] [facility] [address] [id number] [place] [address] May, [facility] [place] [facility] [address] [id number] [place] [address] May, [facility] [place] [facility] [address] [id number] [place] [address] May, [facility] [place] [facility] [address] [id number] [place] [address] 110[address] May, [facility] [place] [facility] [address] [id number] [place] [address] May, [facility] [place] [facility] [address] [id number] [place] [address] May, [facility] [place] [facility] [address] [id number] [place] [address] May, [facility] [place] [facility] [address] [id number] [place] [address] Apr, [facility] [place] [facility] [address] [id number] [place] [address] Apr, [facility] [place] [facility] [address] [id number] [place] [address] Apr, [facility] [place] [facility] [address] [id number] [place] [address]298 Apr, [facility] [place] [facility] [address] [id number] [place] [address] 13 Apr, 2011 [facility] [address] [id number] [place] [address] 13 Apr, 2011 [facility] [place] [facility] [address] [id number] [place] Apr, [facility] [place] [facility] [address] [id number] [place] [address]27 Apr, [facility] [place] [facility] [address] [id number] [place] [address] Apr, [facility] [place] [facility] [address] [id number] [place] [address]36 Apr, [facility] [place] [facility] [address] [id number] [place] [address] Mar, [facility] [address] [id number] [place] [address] Mar, [facility] [place] [facility] [address] [id number] [place] [address] Feb, [facility] [place] [facility] [address] [id number] [place] [address]761 Jun, [facility] [place] [facility] [address] [id number] [place] [address] 3584 Apr, [facility] [place] [facility] [address] [id number] [place] [address] 6[address] Feb, [facility] [place] [facility] [address] [id number], [place] [address] Feb, [facility] [place] [facility] [address] [id number] [place] [address] 0910 Feb, [facility] [place] [facility] [address] [id number] [place] [address] Apr, [facility] [place] [facility] [address] [id number], [place] [address] Apr, [facility] [place] [facility] [address] [id number], [place] [address] Mar, [facility] [id number], [place] [address] Mar, [facility] [id number], [place] [address] Mar, [facility] [address] [id number], [place] [address] Feb, [facility] [id number], [place] [address] Feb, [facility] [id number], [place] [address] Feb, [facility] [address] [id number], [place] [address] Jan, IMMUNIZATIONS No Known Immunizations SOCIAL HISTORY Never Assessed REASON FOR VISIT Controlled Med Refill PLAN OF CARE VITAL SIGNS MEDICATIONS Medication Instructions Dosage Frequency Start Date End Date Duration Status Clonazepam 1 MG Orally 3 times a day 1 tablet 8h Jun, 28 days Active [place] 5-325 MG Orally every 6 hrs 1 tablet 6h Aug, 28 days Active RESULTS No Results PROCEDURES [...]
--- OUTSIDE RECORDS SUMMARY | 2018-04-28 05:32 | XMS REPORT ---
Author Author MARLEY MCGRATH Organization [facility] Address [address] [place] [address] Care Team Providers Care Plodder Operator Name Role Phone MARLEY MCGRATH Unavailable PROBLEMS Type Condition ICD9-CM Code OVA84-OR Code Onset Dates Condition Status SNOMED Code Problem Hammertoe of right foot M20.41 Active 876304708 Problem Moderate episode of recurrent major depressive disorder F33.1 Active 806087441 Problem Hypertriglyceridemia E78.1 Active 883942764 Problem Other chronic pain G89.29 Active 62916865 Problem Memory loss R41.3 Active 219363090 Problem 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.01 Active 8644329 Problem Chronic fatigue R53.82 Active 71130546 Problem Controlled type 2 diabetes mellitus without complication, without long -term current use of insulin E11.9 Active 993155767 Problem Chronic major depressive disorder, recurrent episode F33.9 Active 71250105 Problem Knee pain, right M25.561 Active 98827625 Problem Diabetes type 2, controlled E11.9 Active 88988775 Problem Type 2 diabetes mellitus without complications E11.9 Active 034706681 Problem Hypogonadism in male E29.1 Active 46418698 Problem correction (current) use of anticoagulants Z79.01 Active 483366946 ALLERGIES No Information ENCOUNTERS Encounter Location Date Diagnosis [facility] [address] [address] Nov, Hypogonadism in male E29.1 [facility] [address] [address] Nov, Type 2 diabetes mellitus without complications E11.9 and History of Coumadin therapy Z92.29 [facility] [id number] [address] 18 Nov, 2017 Medicare welcome exam Z00.00 [facility] [id number] [address] Nov, Type 2 diabetes mellitus without complications E11.9 ; History of Coumadin therapy Z92.29 and Hypogonadism in male E29.1 [facility] [address] [address] Nov, [facility] [address] [address] Oct, [facility] [address] [address] Oct, Diabetes type 2, controlled E11.9 [facility] [address] [address] Oct, Medicare welcome exam Z00.00 [facility] [address] [address] Oct, Hypogonadism in male E29.1 [facility] [address] [address] Oct, [facility] [address] [address] September, Hypogonadism in male E29.1 [facility] [address] [address] September, Medicare welcome exam Z00.00 [facility] [address] [address] September, Hypogonadism in male E29.1 [facility] [id number] [address] 89[address] Aug, Other chronic pain G89.29 ; Memory loss R41.3 ; Controlled type 2 diabetes mellitus without complication, without long-term current use of insulin E11.9 and Chronic major depressive disorder, recurrent episode F33.9 [facility] [address] [address] 11 Aug, 2017 Medicare welcome exam Z00.00 [facility] [address], [place] [address] 09 Aug, 2017 [facility] [address] [address] Aug, Hypogonadism in male E29.1 [facility] [id number] [address] Jul, [facility] [id number] [place] [address] Jul, Hypogonadism in male E29.1 [facility] [id number] [place] [address]- 7972 Jul, [facility] [id number] [place] [address] Jul, Hypogonadism in male E29.1 [facility] [id number] [place] [address]- 9763 Jul, Medicare welcome exam Z00.00 [facility] [address] [address] Jun, Medicare welcome exam Z00.00 [facility] [address] [address] Jun, Fever R50.9 and Influenza B J10.1 [facility] [address] [address] Jun, Hypogonadism in male E29.1 [facility] [address], [place] [address] Jun, Diabetes type 2, controlled E11.9 [facility] [address] [place] [address]- 0061 May, Hypogonadism in male E29.1 [facility] [address] [address] 89[address] May, [employer] (current) use of anticoagulants Z79.01 [facility] [address], [place] [address] 2546 Apr, Hypogonadism in male E29.1 [facility] [address], [place] [address] 2546 Apr, [facility] [address] [address] 2546 Apr, Medicare welcome exam Z00.00 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 [facility] [address], [place] [address] 2546 Apr, Hypogonadism in male E29.1 [place] [id number], [place] [address] 2546 Mar, Diabetes type 2, controlled E11.9 [facility] [id number] [place] [address] 2546 Mar, Hypogonadism in male E29.1 [facility] [address], [place] [address] 2546 Mar, Hypogonadism in male E29.1 [facility] [address], [place] [address] 2546 Feb, Hypogonadism in male E29.1 [facility] [address], [place] [address] 2546 Feb, Malaise R53.81 [facility] [address], [place] [address] 2546 Feb, [place] [id number] [place] [address]- 7786 Feb, Diabetes type 2, controlled E11.9 [facility] [address], [place] [address] 2546 06 Feb, 2017 Chronic fatigue R53.82 ; Malaise R53.81 and Moderate episode of recurrent major depressive disorder F33.1 [facility] [address] [place] [address]- 1769 11 Jan, 2017 Diabetes type 2, controlled E11.9 [facility] [id number] [place] [address] 2546 Jan, 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.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899 [facility] [id number] [place] [address] 31052 2542 Nov, Diabetes type 2, controlled E11.9 [facility] [id number] [place] [address] 02844 2549 Oct, Diabetes type 2, controlled E11.9 [place] [id number] [place] [address] 02437 2542 September, Diabetes type 2, controlled E11.9 [place] [id number] [place] [address] 83324 2548 Aug, [employer] (current) use of anticoagulants Z79.01 [place] [address] [place] [address]853- 2546 Aug, Hematoma of arm, right, initial encounter S40.021A 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 [facility] [id number] [place] [address]- 5625 Aug, [facility] [address] [address] Aug, Cellulitis of right upper extremity L03.113 [place] [address] [address]- 8112 Aug, Diabetes type 2, controlled E11.9 [place] [facility] [address] [address]- 6526 Aug, Hammertoe of right foot M20.41 ; Hallux abducto valgus, left M20.12 and Onychomycosis B35.1 [place] [address] [address]- 2622 Aug, correction (current) use of anticoagulants Z79.01 [place] [address] [address]- 6283 Aug, [employer] (current) use of anticoagulants Z79.01 [place] [address] [address]- 9393 Aug, correction (current) use of anticoagulants Z79.01 [facility] [id number] [place] [address]207 -3753 Aug, Right shoulder pain M25.511 and Closed nondisplaced fracture of acromial end of right clavicle, initial encounter S42.034A [place] [facility] [id number] [place] [address] 50407- 8522 Jul, Diabetes type 2, controlled E11.9 [place] [facility] [address] [address]283- 6676 Jun, Diabetes type 2, controlled E11.9 and correction (current) use of anticoagulants Z79.01 [place] [id number] [place] [address] 86781- 2096 May, [facility] [address], [place] [address]- 9535 Apr, [facility] [address], [place] [address]- 4365 Mar, [facility] [address], [place] [address]- 6976 Feb, [facility] [id number] [place] [address] 48869- 0673 Dec, Diabetes type 2, controlled E11.9 [facility] [address], [place] [address]- 0905 Dec, [facility] [address], [place] [address]- 0128 Nov, [facility] [address], [place] [address]- 6560 Nov, Type 2 diabetes mellitus without complications E11.9 [facility] [address], [place] [address]- 9248 Oct, Type 2 diabetes mellitus without complications E11.9 [facility] [address], [place] [address]- 6572 Aug, [facility] [address], [place] [address]- 3010 Aug, Type 2 diabetes mellitus without complications E11.9 [facility] [address], [place] [address]- 2680 Jun, Type 2 diabetes mellitus without complications E11.9 and 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 [facility] [address], [place] [address]- 6778 May, [facility] [address], [place] [address]- 8320 May, Diabetes type 2, controlled E11.9 [facility] [address] [place] [address] 70016- 7602 Apr, Diabetes type 2, controlled E11.9 [facility] [id number] [place] [address] 37130- 3709 Mar, Diabetes type 2, controlled E11.9 ; Knee pain, right M25.561 ; Other chronic pain G89.29 and Medication monitoring encounter Z51.81 [facility] [id number] [place] [address] 39922- 4658 Feb, Type 2 diabetes mellitus without complications E11.9 ; High risk medication use Z79.899 and Anxiety F41.9 [facility] [id number] [place] [address] 18152- 6317 Jan, Diabetes 250.00 [facility] [id number] [place] [address] 75510- 7939 Dec, Diabetes 250.00 [facility] [id number] [place] [address] 34331- 5054 Nov, Diabetes 250.00 [facility] [id number] [place] [address] 54472- 7612 Nov, [facility] [id number] [place] [address] 17285- 5988 Oct, Diabetes mellitus type 1 250.01 and High risk medication use V58.69 [facility] [id number] [place] [address] 07932- 1877 Oct, [facility] [id number] [place] [address] 23835- 2617 September, [facility] [id number] [place] [address] 91338- 2425 Aug, [facility] [id number] [place] [address] 99053- 8144 Aug, [facility] [address], [place] [address]- 8866 Jul, [facility] [address] [facility] [id number] [place] [address]- 9548 Jul, [facility] [place] [facility] [address] [id number] [place] [address]- 7826 Jun, [facility] [place] [facility] [address] [id number] [place] [address]- 8936 Jun, [facility] [place] [facility] [address] [id number] [place] [address]- 4236 Jun, [facility] [place] [facility] [address] [id number] [place] [address]- 3799 May, [facility] [place] [facility] [address] [id number] [place] [address]- 1890 May, [facility] [place] [facility] [address] [id number] [place] [address]- 9962 Apr, [facility] [place] [facility] [address] [id number] [place] [address]- 1050 Apr, [facility] [place] [facility] [address] [id number] [place] [address]- 6775 Apr, [facility] [place] [facility] [address] [id number] [place] [address]- 2261 Apr, [facility] [place] [facility] [address] [id number] [place] [address]- 3006 Apr, [facility] [place] [facility] [address] [id number] [place] [address]- 0052 Apr, [facility] [place] [facility] [address] [id number] [place] 2229 Feb, [facility] [place] [facility] [address] [id number] [place] [address]459 Feb, [facility] [place] [facility] [address] [id number] [place] [address]- 8776 Feb, [facility] [place] [facility] [address] [id number] [place] [address]- 0867 Feb, [facility] [place] [facility] [address] [id number] [place] [address]- 5426 Dec, [facility] [place] [facility] [address] [id number] [place] [address]- 1505 Dec, [facility] [place] [facility] [address] [id number] [place] [address]- 2856 Nov, [facility] [place] [facility] [address] [id number] [place] [address]- 2528 Nov, [facility] [place] [facility] [address] [id number] [place] [address]- 6114 Oct, [facility] [place] [facility] [address] [id number] [place] [address]- 2821 Oct, [facility] [place] [facility] [address] [id number] [place] [address]- 9183 Oct, [facility] [place] [facility] [address] [id number] [place] [address]- 6765 Oct, [facility] [place] [facility] [address] [id number] [place] [address]- 1408 Oct, [facility] [place] [facility] [address] [id number] [place] [address]- 7220 Oct, [facility] [place] [facility] [address] [id number] [place] [address]- 5770 September, [facility] [place] [facility] [address] [id number], [place] [address]- 2959 September, [facility] [place] [facility] [address] [id number] [place] [address]- 6729 September, [facility] [place] [facility] [address] [id number] [place] [address]- 8022 September, [facility] [place] [facility] [address] [id number] [place] [address]- 0608 September, [facility] [place] [facility] [address] [id number] [place] [address]- 6415 September, [facility] [place] [facility] [address] [id number] [place] [address]- 7441 Aug, [facility] [place] [facility] [address] [id number] [place] [address]- 7286 Aug, [facility] [place] [facility] [address] [id number] [place] [address]- 2713 Aug, [facility] [place] [facility] [address] [id number] [place] [address]- 2960 Aug, [facility] [place] [facility] [address] [id number] [place] [address]- 5659 Aug, [facility] [place] [facility] [address] [id number] [place] [address]- 0993 Aug, [facility] [place] [facility] [address] [id number] [place] [address]- 7560 Jul, [facility] [place] [facility] [address] [id number] [place] [address]- 4624 Jul, [facility] [place] [facility] [address] [id number] [place] [address]- 9527 Jul, [facility] [place] [facility] [address] [id number] [place] [address]- 5577 Jul, [facility] [place] [facility] [address] [id number] [place] [address]- 9579 May, [facility] [place] [facility] [address] [id number] [place] [address]- 0016 May, [facility] [place] [facility] [address] [id number] [place] [address]- 6010 Apr, [facility] [place] [facility] [address] [id number] [place] [address]- 9765 Apr, [facility] [place] [facility] [address] [id number] [place] [address]- 3886 Apr, [facility] [place] [facility] [address] [id number] [place] [address]- 2529 Apr, 2012 [facility] [place] [facility] [address] [id number] [place] [address]- 4453 Apr, [facility] [place] [facility] [address] [id number] [place] [address]- 8491 Apr, [facility] [place] [facility] [address] [id number] [place] [address]- 8887 Feb, [facility] [address] [id number] [place] [address]- 6530 Feb, [facility] [address] [id number] [place] [address]- 0611 Feb, [facility] [address] [id number] [place] [address]- 5013 Feb, [facility] [address] [id number] [place] [address]- 9094 Feb, [facility] [address] [id number] [place] [address]- 0861 Feb, [facility] [address] [id number], [place] [address]- 2327 Feb, [facility] [place] [facility] [address] [id number] [place] [address]- 6179 Feb, [facility] [place] [facility] [address] [id number], [place] [address]- 2868 Jan, 2012 [facility] [place] [facility] [address] [id number] [place] [address]- 8835 23 Jan, 2012 [facility] [place] [facility] [address] [id number] [place] [address]- 0809 19 Jan, 2012 [facility] [place] [facility] [address] [id number], [place] [address]- 2545 Jan, 2012 [facility] [place] [facility] [address] [id number], [place] [address]- 6028 Dec, [facility] [address] [id number] [place] [address]- 3779 Dec, [facility] [place] [facility] [address] [id number] [place] [address]- 5562 Dec, [facility] [place] [facility] [address] [id number] [place] [address]- 8706 Nov, [facility] [place] [facility] [address] [id number] [place] [address]- 0605 Nov, [facility] [place] [facility] [address] [id number] [place] [address]- 6090 Oct, [facility] [place] [facility] [address] [id number] [place] [address]- 7249 September, [facility] [address] [id number] [place] [address]- 1105 September, [facility] [place] [facility] [address] [id number] [place] [address]- 9647 September, [facility] [place] [facility] [address] [id number] [place] [address]- 4387 Aug, [facility] [place] [facility] [address] [id number] [place] [address]- 8689 Aug, [facility] [place] [facility] [address] [id number] [place] [address]- 9868 Aug, [facility] [place] [facility] [address] [id number] [place] [address]- 0564 Jul, [facility] [place] [facility] [address] [id number] [place] [address]- 0089 Jul, [facility] [place] [facility] [address] [id number] [place] 7247 Jun, [facility] [place] [facility] [address] [id number] [place] [address]- 1830 Jun, [facility] [place] [facility] [address] [id number] [place] [address]- 0246 Jun, [facility] [place] [facility] [address] [id number] [place] [address]- 8916 Jun, [facility] [place] [facility] [address] [id number] [place] [address]- 4606 May, [facility] [place] [facility] [address] [id number] [place] [address]- 6996 May, [facility] [place] [facility] [address] [id number] [place] [address]- 4917 Apr, [facility] [place] [facility] [address] [id number] [place] [address]- 7706 Apr, [facility] [place] [facility] [address] [id number] [place] [address]- 5630 Apr, [facility] [place] [facility] [address] [id number] [place] [address]- 8532 Apr, [facility] [place] [facility] [address] [id number] [place] [address]- 4707 Apr, [facility] [place] [facility] [address] [id number] [place] [address]- 9005 Apr, [facility] [place] [facility] [address] [facility] [id number] [place] [address]- 0322 Mar, [facility] [place] [facility] [address] [id number] [place] [address] Mar, [facility] [place] [facility] [address] [id number] [place] [address] Mar, [facility] [place] [facility] [address] [id number] [place] [address] Mar, [facility] [place] [facility] [address] [id number] [place] [address] Mar, [facility] [place] [facility] [address] [id number] [place] [address] Mar, [facility] [place] [facility] [address] [id number] [place] [address] Feb, [facility] [place] [facility] [address] [id number] [place] [address] Feb, [facility] [place] [facility] [address] [facility] [id number] [place] [address] Feb, [facility] [place] [facility] [address] [id number] [place] [address] Feb, [facility] [place] [facility] [address] [id number] [place] [address] Feb, [facility] [place] [facility] [address] [id number] [place] [address] Jan, [facility] [place] [facility] [address] [id number] [place] [address] Jan, [facility] [place] [facility] [address] [id number] [place] [address] Jan, [facility] [place] [facility] [address] [id number] [place] [address] Dec, [facility] [place] [facility] [address] [id number] [place] [address] Dec, [facility] [place] [facility] [address] [id number], [place] [address] Nov, [facility] [place] [facility] [address] [id number], [place] [address] Oct, [facility] [place] [facility] [address] [id number] [place] [address] Oct, [facility] [place] [facility] [address] [facility] [id number], [place] [address] Oct, [facility] [place] [facility] [address] [facility] [id number] [place] [address] Oct, [facility] [place] [facility] [address] [id number] [place] [address] 06 Oct, 2011 [facility] [address] [id number] [place] [address] 16 Sep, 2011 [facility] [place] [facility] [address] [id number] [place] [address] 18 Aug, 2011 [facility] [place] [facility] [address] [id number] [place] [address] 18 Aug, 2011 [facility] [place] [facility] [address] [id number] [place] [address] 17 Aug, 2011 [facility] [address] [id number] [place] [address] 16 Aug, 2011 [facility] [place] [facility] [address] [id number] [place] [address] 13 Aug, 2011 [facility] [address] [id number] [place] [address] 11 Aug, 2011 [facility] [address] [id number] [place] [address] 11 Aug, 2011 [facility] [place] [facility] [address] [id number] [place] [address] 05 Aug, 2011 [facility] [address] [id number] [place] [address] 05 Aug, 2011 [facility] [place] [facility] [address] [id number] [place] [address] 20 Jul, 2011 [facility] [place] [facility] [address] [id number] [place] [address] 20 Jul, 2011 [facility] [place] [facility] [address] [id number] [place] [address] 20 Jul, 2011 [facility] [place] [facility] [address] [id number] [place] [address] 17 Jul, 2011 [facility] [place] [facility] [address] [id number] [place] [address] 08 Jul, 2011 [facility] [place] [facility] [address] [id number] [place] [address] 15 Jun, 2011 [facility] [place] [facility] [address] [id number] [place] [address] 14 Jun, 2011 [facility] [place] [facility] [address] [id number] [place] [address] 08 Jun, 2011 [facility] [place] [facility] [address] [id number] [place] [address] 08 Jun, 2011 [facility] [place] [facility] [address] [id number] [place] [address] May, [facility] [place] [facility] [address] [id number] [place] [address] May, [facility] [place] [facility] [address] [id number] [place] [address] May, [facility] [place] [facility] [address] [id number] [place] [address] May, [facility] [place] [facility] [address] [id number] [place] [address] May, [facility] [place] [facility] [address] [id number] [place] [address] May, [facility] [place] [facility] [address] [id number] [place] [address] May, [facility] [place] [facility] [address] [id number] [place] [address] Apr, [facility] [place] [facility] [address] [id number] [place] [address] Apr, [facility] [place] [facility] [address] [id number] [place] [address] Apr, [facility] [place] [facility] [address] [id number] [place] [address]- [address]85 Apr, [facility] [place] [facility] [address] [id number] [place] [address] 13 Apr, 2011 [facility] [address] [id number] [place] [address] 13 Apr, 2011 [facility] [place] [facility] [address] [id number] [place] [address] Apr, [facility] [place] [facility] [address] [id number] [place] [address] Apr, [facility] [place] [facility] [address] [id number] [place] Apr, [facility] [place] [facility] [address] [id number] [place] [address] Apr, [facility] [place] [facility] [address] [id number] [place] [address] Mar, [facility] [address] [id number] [place] [address] Mar, [facility] [place] [facility] [address] [id number] [place] [address] Feb, [facility] [place] [facility] [address] [id number] [place] [address] Jun, [facility] [place] [facility] [address] [id number] [place] [address] Apr, [facility] [place] [facility] [address] [id number] [place] [address] Feb, [facility] [place] [facility] [address] [id number] [address] Feb, [facility] [place] [facility] [address] [id number] [place] [address] Feb, [facility] [place] [facility] [address] [id number] [place] [address] Apr, [facility] [place] [facility] [address] [id number], [place] [address] Apr, [facility] [place] [facility] [address] [id number] [address] Mar, [facility] [id number] [address] [address] Mar, [facility] [id number], [place] [address] Mar, [facility] [id number] [address] Feb, [facility] [id number] [address] Feb, [facility] [id number], [place] [address] Feb, [facility] [address] [id number], [place] [address] Jan, IMMUNIZATIONS No Known Immunizations SOCIAL HISTORY Never Assessed REASON FOR VISIT Controlled Med Refill PLAN OF CARE VITAL SIGNS MEDICATIONS Medication Instructions Dosage Frequency Start Date End Date Duration Status Depo-Testosterone 100 MG/ML Intramuscular 2 times a month 1 ml Feb, 140 days Active RESULTS No Results PROCEDURES No [...]
--- OUTSIDE RECORDS SUMMARY | 2018-04-28 05:32 | XMS REPORT ---
Author Author MARLEY MCGRATH Organization [facility] Address [address] [place] [address] Care Team Providers Care Knife Finisher Name Role Phone MARLEY MCGRATH Unavailable PROBLEMS Type Condition ICD9-CM Code [id number] Code Onset Dates Condition Status SNOMED Code Problem Hammertoe of right foot M20.41 Active 589767068 Problem Moderate episode of recurrent major depressive disorder F33.1 Active 639861350 Problem Hypertriglyceridemia E78.1 Active 088274380 Problem Other chronic pain G89.29 Active 15466997 Problem Memory loss R41.3 Active 514361846 Problem 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.01 Active 3863169 Problem Chronic fatigue R53.82 Active 57788268 Problem Controlled type 2 diabetes mellitus without complication, without long -term current use of insulin E11.9 Active 034902686 Problem Chronic major depressive disorder, recurrent episode F33.9 Active 33895091 Problem Knee pain, right M25.561 Active 84426262 Problem Diabetes type 2, controlled E11.9 Active 94299723 Problem Type 2 diabetes mellitus without complications E11.9 Active 303661680 Problem Hypogonadism in male E29.1 Active 36648739 Problem prison (current) use of anticoagulants Z79.01 Active 621818676 ALLERGIES No Information ENCOUNTERS Encounter Location Date Diagnosis [facility] [id number] [address] Nov, [facility] [id number] [address] Nov, Type 2 diabetes mellitus without complications E11.9 and History of Coumadin therapy Z92.29 [facility] [id number] [address] 18 Nov, 2017 Medicare welcome exam Z00.00 [facility] [id number], [place] [address] Nov, Type 2 diabetes mellitus without complications E11.9 ; History of Coumadin therapy Z92.29 and Hypogonadism in male E29.1 [facility] [address] [address] Nov, [facility] [address] [address] Oct, [facility] [address], [place] [address] Oct, Diabetes type 2, controlled E11.9 [facility] [address] [address] Oct, Medicare welcome exam Z00.00 [facility] [id number], [place] [address] Oct, Hypogonadism in male E29.1 [facility] [id number], [place] [address] Oct, [facility] [id number], [place] [address] September, Hypogonadism in male E29.1 [facility] [address], [place] [address] September, Medicare welcome exam Z00.00 [facility] [id number], [place] [address] September, Hypogonadism in male E29.1 [facility] [address], [place] [address] Aug, Other chronic pain G89.29 ; Memory loss R41.3 ; Controlled type 2 diabetes mellitus without complication, without long-term current use of insulin E11.9 and Chronic major depressive disorder, recurrent episode F33.9 [facility] [id number], [place] [address] Aug, Medicare welcome exam Z00.00 [facility] [id number], [place] [address] Aug, [facility] [id number], [place] [address] Aug, Hypogonadism in male E29.1 [facility] [id number], [place] [address] Jul, [facility] [id number] [place] [address]- 8826 Jul, Hypogonadism in male E29.1 [facility] [id number], [place] [address] Jul, [facility] [id number] [place] [address]2834 Jul, Hypogonadism in male E29.1 [facility] [id number] [place] [address]- 4419 Jul, Medicare welcome exam Z00.00 [facility] [address] [place] [address] 46970- 5933 Jun, Medicare welcome exam Z00.00 [facility] [address] [place] [address] Jun, Fever R50.9 and Influenza B J10.1 [facility] [address], [place] [address] Jun, Hypogonadism in male E29.1 [facility] [address], [place] [address] 62[address] Jun, Diabetes type 2, controlled E11.9 [facility] [id number] [place] [address]17[address]- 3192 May, Hypogonadism in male E29.1 [facility] [address], [place] [address] May, 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 [facility] [address], [place] [address] 20 Apr, 2017 Hypogonadism in male E29.1 [facility] [address], [place] [address] 08 Apr, 2017 [facility] [address], [place] [address] 08 Apr, 2017 Medicare welcome exam Z00.00 and 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 [facility] [address], [place] [address] Apr, Hypogonadism in male E29.1 [facility] [id number] [place] [address] 16876- 8416 Mar, Diabetes type 2, controlled E11.9 [place] [id number] [place] [address] 20756- 1354 Mar, Hypogonadism in male E29.1 [facility] [address], [place] [address]- 00[address] Mar, Hypogonadism in male E29.1 [facility] [id number], [place] [address] 4[address] Feb, Hypogonadism in male E29.1 [facility] [address], [place] [address] 3[address] Feb, Malaise R53.81 [facility] [id number], [place] [address]- 7366 Feb, [facility] [id number], [place] [address] 1473 09 Feb, 2017 Diabetes type 2, controlled E11.9 [facility] [address], [place] [address] 60[address] 06 Feb, 2017 Chronic fatigue R53.82 ; Malaise R53.81 and Moderate episode of recurrent major depressive disorder F33.1 [place] [id number] [place] [address] 07570- 9618 11 Jan, 2017 Diabetes type 2, controlled E11.9 [facility] [id number] [place] [address] 58622- 6331 Jan, 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.01 and 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 [place] [id number] [place] [address] 30820- 1080 Dec, Diabetes type 2, controlled E11.9 and Hypertriglyceridemia E78.1 [place] [id number] [place] [address] 06643- 7415 Dec, Diabetes type 2, controlled E11.9 [place] [id number] [place] [address] 13978- 4451 Dec, High risk medication use Z79.899 and prison (current) use of anticoagulants Z79.01 [place] [id number] [place] [address] 83181- 7868 Dec, High risk medication use Z79.899 [place] [id number] [place] [address] 21340- 9280 Nov, Diabetes type 2, controlled E11.9 [place] [id number] [place] [address] 82805- 8230 Oct, Diabetes type 2, controlled E11.9 [place] [id number] [place] [address] 71343- 8745 September, Diabetes type 2, controlled E11.9 [place] [id number] [place] [address] 02665- 0068 Aug, 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 [place] [id number] [place] [address] 98050- 7438 Aug, Hematoma of arm, right, initial encounter S40.021A and 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 [place] [id number] [place] [address] 10043- 2930 Aug, [facility] [id number] [place] [address] 12043 -4341 Aug, Cellulitis of right upper extremity L03.113 [place] [id number] [place] [address] 04967- 0965 14 Aug, 2016 Diabetes type 2, controlled E11.9 [place] [address] 18[address]- 5216 Aug, Hammertoe of right foot M20.41 ; Hallux abducto valgus, left M20.12 and Onychomycosis B35.1 [place] [address] 08480- 5004 Aug, prison (current) use of anticoagulants Z79.01 [place] [address] 3[address]- 4591 Aug, 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 [place] [id number] [place] [address] 86198- 3672 Aug, prison (current) use of anticoagulants Z79.01 [facility] [id number] [place] [address] 41901 -5753 Aug, Right shoulder pain M25.511 and Closed nondisplaced fracture of acromial end of right clavicle, initial encounter S42.034A [place] [id number] [place] [address] 98057- 6750 Jul, Diabetes type 2, controlled E11.9 [place] [address] 00777- 6630 Jun, Diabetes type 2, controlled E11.9 and prison (current) use of anticoagulants Z79.01 [place] [id number] [place] [address] 90098- 2209 May, [place], [place] [address]- 6659 Apr, [facility] [id number], [place] [address]- 0057 Mar, [facility] [address], [place] [address]- 5731 Feb, [facility] [id number], [place] [address]- 7870 Dec, Diabetes type 2, controlled E11.9 [facility] [address], [place] [address]- 4097 Dec, [facility] [address], [place] [address]- 4833 Nov, [facility] [address], [place] [address]- 1504 Nov, Type 2 diabetes mellitus without complications E11.9 [facility] [address], [place] [address]- 7107 Oct, Type 2 diabetes mellitus without complications E11.9 [facility] [address], [place] [address]- 2884 Aug, [facility] [address], [place] [address]- 4559 Aug, Type 2 diabetes mellitus without complications E11.9 [facility] [address], [place] [address]- 1545 Jun, Type 2 diabetes mellitus without complications E11.9 and 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 [facility] [address], [place] [address]- 0015 May, [facility] [id number] [address] May, Diabetes type 2, controlled E11.9 [facility] [address], [place] [address]- 6803 Apr, Diabetes type 2, controlled E11.9 [facility] [id number] 2964 Mar, Diabetes type 2, controlled E11.9 ; Knee pain, right M25.561 ; Other chronic pain G89.29 and Medication monitoring encounter Z51.81 [facility] [id number] [place] [address] 048954- 8832 Feb, Type 2 diabetes mellitus without complications E11.9 ; High risk medication use Z79.899 and Anxiety F41.9 [facility] [id number] [place] [address] 94187- 4954 Jan, Diabetes 250.00 [facility] [id number] [place] [address] 30680- 4356 Dec, Diabetes 250.00 [facility] [id number] [place] [address] 09191- 6451 Nov, Diabetes 250.00 [facility] [id number] [place] [address] 28666- 3668 Nov, [facility] [id number] [place] [address] 73522- 0797 Oct, Diabetes mellitus type 1 250.01 and High risk medication use V58.69 [facility] [address], [place] [address]- 0196 Oct, [facility] [id number] [place] [address] 00028- 2203 September, [facility] [id number] [place] [address]- 0496 Aug, [facility] [id number] [place] [address] 463653- 0986 Aug, [facility] [address], [place] [address]- 5156 Jul, [facility] [id number] [place] [address], [place] [address]- 6111 Jul, [facility] [place] [facility] [address] [id number] [place] [address]- 3032 Jun, [facility] [place] [facility] [address] [id number] [place]- 3336 Jun, [facility] [place] [facility] [address] [id number] [place] [address]- 8525 Jun, [facility] [place] [facility] [address] [id number] [place] [address]- 9112 May, [facility] [place] [facility] [address] [id number] [place] [address]- 0261 May, [facility] [place] [facility] [address] [id number] [place] [address]- 2438 Apr, [facility] [place] [facility] [address] [id number] [place] [address]- 9702 Apr, [facility] [place] [facility] [address] [id number] [place] [address]- 0547 Apr, [facility] [place] [facility] [address] [id number] [place] [address]- 7669 Apr, [facility] [place] [facility] [address] [facility] [id number] [place] [address]- 3371 Apr, [facility] [place] [facility] [address] [id number] [place] [address]- 4388 Apr, [facility] [place] [facility] [address] [id number] [place] [address]- 1032 Feb, [facility] [place] [facility] [address] [id number] [place] 1530 Feb, [facility] [place] [facility] [address] [id number] [place]- 3900 Feb, [facility] [place] [facility] [address] [id number] [place] 2087 Feb, [facility] [place] [facility] [address] [id number] [place] [address]- 6322 Dec, [facility] [place] [facility] [address] [id number] [place] [address]- 9159 Dec, [facility] [place] [facility] [address] [id number] [place] [address]- 2645 Nov, [facility] [place] [facility] [address] [id number] [place] [address]- 6686 Nov, [facility] [place] [facility] [address] [id number] [place] [address]- 4728 Oct, [facility] [place] [facility] [address] [id number] [place] [address]- 5837 Oct, [facility] [place] [facility] [address] [id number] [place] [address]- 0621 Oct, [facility] [place] [facility] [address] [id number] [place] [address]- 9211 Oct, [facility] [place] [facility] [address] [id number] [place] [address]- 9447 Oct, [facility] [place] [facility] [address] [id number] [place] [address]- 0622 Oct, [facility] [place] [facility] [address] [id number] [place] [address]- 1039 September, [facility] [place] [facility] [address] [id number] [place] [address]- 8631 September, [facility] [place] [facility] [address] [id number] [place] [address]- 0970 September, [facility] [place] [facility] [address] [id number] [place] [address]- 7469 September, [facility] [place] [facility] [address] [id number] [place] [address]- 3973 September, [facility] [place] [facility] [address] [id number] [place] [address]- 6179 September, [facility] [place] [facility] [address] [id number] [place] [address]- 8184 Aug, [facility] [place] [facility] [address] [id number] [place] [address]- 1498 Aug, [facility] [place] [facility] [address] [id number] [place] [address]- 8061 Aug, [facility] [place] [facility] [address] [id number] [place] [address]- 4690 Aug, [facility] [place] [facility] [address] [id number] [place] [address]- 6177 Aug, [facility] [place] [facility] [address] [id number] [place] [address]- 4072 Aug, [facility] [place] [facility] [address] [id number] [place] [address]- 4962 Jul, [facility] [place] [facility] [address] [id number] [place] [address]- 8316 Jul, [facility] [place] [facility] [address] [id number] [place] [address]- 0743 Jul, [facility] [place] [facility] [address] [id number] [place] [address]- 6852 Jul, [facility] [place] [facility] [address] [id number] [place] [address]- 1183 May, [facility] [place] [facility] [address] [id number] [place] [address]- 1357 May, [facility] [place] [facility] [address] [id number] [place] [address]- 1163 Apr, [facility] [place] [facility] [address] [id number] [place] [address]- 4504 Apr, [facility] [place] [facility] [address] [id number] [place] [address]- 7993 Apr, [facility] [place] [facility] [address] [id number] [place] [address]- 2546 Apr, 2012 [facility] [address] [id number] [place] [address]- 1435 Apr, [facility] [place] [facility] [address] [id number] [place] [address]- 2546 Apr, [facility] [address] [id number] [place] [address]- 2887 Feb, [facility] [address] [id number] [place] [address]- 0250 Feb, [facility] [address] [id number] [place] [address]- 7415 Feb, [facility] [address] [id number] [place] [address]- 5488 Feb, [facility] [address] [id number] [place] [address]- 0[address] Feb, [facility] [address] [id number] [place] [address] Feb, [facility] [address] [id number] [place] [address] Feb, [facility] [address] [id number] [place] [address] Feb, [facility] [place] [facility] [address] [id number] [place] [address] Jan, [facility] [place] [facility] [address] [id number] [place] [address] Jan, [facility] [place] [facility] [address] [id number] [place] [address] Jan, [facility] [place] [facility] [address] [id number] [place] [address] Jan, [facility] [place] [facility] [address] [id number] [place] [address] Dec, [facility] [address] [id number] [place] [address] Dec, [facility] [place] [facility] [address] [id number] [place] [address] Dec, [facility] [address] [id number] [place] [address] Nov, [facility] [place] [facility] [address] [id number] [place] [address] Nov, [facility] [address] [id number] [place] [address] Oct, [facility] [place] [facility] [address] [id number] [place] [address] September, [facility] [place] [facility] [address] [id number] [place] [address] September, [facility] [address] [id number] [place] [address] September, [facility] [place] [facility] [address] [id number] [place] [address] Aug, [facility] [place] [facility] [address] [id number] [place] [address] Aug, [facility] [place] [facility] [address] [id number] [place] [address] Aug, [facility] [place] [facility] [address] [id number] [place] [address] Jul, [facility] [place] [facility] [address] [id number] [place] [address] Jul, [facility] [place] [facility] [address] [id number] [place] [address] Jun, [facility] [place] [facility] [address] [id number] [place] [address] Jun, [facility] [place] [facility] [address] [id number] [place] [address] 11 Jun, 2012 [facility] [address] [id number] [place] [address] 06 Jun, 2012 [facility] [place] [facility] [address] [id number] [place] [address] May, [facility] [address] [id number] [place] [address] May, [facility] [place] [facility] [address] [id number] [place] [address] Apr, [facility] [address] [id number] [place] [address] Apr, [facility] [address] [id number] [place] [address] Apr, [facility] [address] [id number] [place] [address] Apr, [facility] [address] [id number] [place] [address] Apr, [facility] [place] [facility] [address] [id number] [place] [address] Apr, [facility] [address] [facility] [id number] [place] [address] Mar, [facility] [place] [facility] [address] [id number] [place] [address] Mar, [facility] [place] [facility] [address] [id number] [place] [address] Mar, [facility] [place] [facility] [address] [id number] [place] [address] Mar, [facility] [place] [facility] [address] [id number] [place] [address] Mar, [facility] [place] [facility] [address] [id number] [place] [address] Mar, [facility] [place] [facility] [address] [id number] [place] [address] Feb, [facility] [place] [facility] [address] [id number] [place] [address] Feb, [facility] [place] [facility] [address] [id number] [place] [address] Feb, [facility] [place] [facility] [address] [id number] [place] [address] Feb, [facility] [place] [facility] [address] [id number] [place] [address] Feb, [facility] [place] [facility] [address] [id number] [place] [address] Jan, [facility] [place] [facility] [address] [id number] [place] [address] Jan, [facility] [place] [facility] [address] [id number] [place] [address] Jan, [facility] [place] [facility] [address] [id number] [place] [address] Dec, [facility] [place] [facility] [address] [id number] [place] [address] Dec, [facility] [place] [facility] [address] [id number] [place] [address] Nov, [facility] [place] [facility] [address] [id number] [place] [address] Oct, [facility] [place] [facility] [address] [id number] [place] [address] Oct, [facility] [place] [facility] [address] [id number] [place] [address] Oct, [facility] [place] [facility] [address] [id number] [place] [address] Oct, [facility] [place] [facility] [address] [id number] [place] [address] 06 Oct, 2011 [facility] [place] [facility] [address] [id number] [place] [address] September, [facility] [place] [facility] [address] [id number] [place] [address] 18 Aug, 2011 [facility] [place] [facility] [address] [id number] [place] [address] 18 Aug, 2011 [facility] [place] [facility] [address] [id number] [place] [address]- [address] 17 Aug, 2011 [facility] [place] [facility] [address] [id number] [place] [address] 16 Aug, 2011 [facility] [place] [facility] [address] [id number] [place] [address] 13 Aug, 2011 [facility] [place] [facility] [address] [id number] [place] [address] Aug, [facility] [place] [facility] [address] [id number] [place] [address] Aug, [facility] [place] [facility] [address] [id number] [place] [address]- [address] 05 Aug, 2011 [facility] [place] [facility] [address] [id number] [place] [address] 05 Aug, 2011 [facility] [place] [facility] [address] [id number] [place] [address] Jul, [facility] [place] [facility] [address] [id number] [place] [address]- [address]32 20 Jul, 2011 [facility] [place] [facility] [address] [id number] [place] [address]- 5836 20 Jul, 2011 [facility] [place] [facility] [address] [id number] [place] [address] 17 Jul, 2011 [facility] [place] [facility] [address] [id number] [place] [address]- [address] 08 Jul, 2011 [facility] [place] [facility] [address] [id number] [place] [address]43 15 Jun, 2011 [facility] [address] [id number] [place] [address]6 14 Jun, 2011 [facility] [place] [facility] [address] [id number] [place] [address]- 8416 08 Jun, 2011 [facility] [place] [facility] [address] [id number] [place] [address] 08 Jun, 2011 [facility] [place] [facility] [address] [id number] [place] [address]- 2011 19 May, 2011 [facility] [place] [facility] [address] [id number] [place] [address]483 13 May, 2011 [facility] [address] [id number] [place] [address] May, [facility] [address] [id number] [place] [address] May, [facility] [address] [id number] [place] [address] May, [facility] [address] [id number] [place] [address] 7935 May, [facility] [address] [id number] [place] [address]- 2039 May, [facility] [address] [id number] [place] [address] 3831 Apr, [facility] [place] [facility] [address] [id number] [place] [address] 2546 Apr, [facility] [place] [facility] [address] [id number] [place] [address] 2546 13 Apr, 2011 [facility] [place] [facility] [address] [id number] [place] [address] 2546 13 Apr, 2011 [facility] [place] [facility] [address] [id number] [place] [address]- [address] Apr, [facility] [address] [id number] [place] [address] Apr, [facility] [place] [facility] [address] [id number] [place] [address]- 9726 Apr, [facility] [place] [facility] [address] [facility] [id number] [place] [address]- [address]955 Apr, [facility] [place] [facility] [address] [id number] [place] [address]- 0333 Apr, [facility] [place] [facility] [address] [id number] [place] [address]- 8514 Apr, [facility] [place] [facility] [address] [id number] [place] [address]- 8615 Mar, [facility] [place] [facility] [address] [id number] [place] [address]- [address]348 Mar, [facility] [place] [facility] [address] [id number], [place] [address] Feb, [facility] [place] [facility] [address] [id number] [place] [address]- [address] Jun, [facility] [place] [facility] [address] [id number] [place] [address]- 3812 Apr, [facility] [place] [facility] [address] [id number], [place] [address] Feb, [facility] [place] [facility] [address] [id number], [place] [address] Feb, [facility] [place] [facility] [address] [id number] [place] [address]- 9530 Feb, [facility] [place] [facility] [address] [facility] [id number], [place] [address] Apr, [facility] [place] [facility] [address] [facility] [id number], [place] [address]- 2016 Apr, [facility] [place] [facility] [address] [facility] [id number], [place] [address] 2546 Mar, [facility] [address] [id number], [place] [address] Mar, [facility] [address] [id number], [place] [address] Mar, [facility] [address] [id number], [place] [address] Feb, [facility] [address] [id number], [place] [address] 2549 Feb, [facility] [address] [id number], [place] [address] Feb, [facility] [address] [id number], [place] [address] Jan, IMMUNIZATIONS Vaccine Route Administration Date Status TESTOSTERONE (PT'S OWN) IM Intramuscular August 10, 2017 Administered SOCIAL HISTORY Never Assessed REASON FOR VISIT Testosterone injection PLAN OF CARE VITAL SIGNS MEDICATIONS Unknown Medications RESULTS No Results PROCEDURES Procedure Date Ordered Result Body Site TESTOSTERONE (PT'S OWN) August 10, 2017 THER/PROPH/DIAG INJ, SC/IM August 10, 2017 INSTRUCTIONS MEDICATIONS ADMINISTERED No Known Medications [...]
--- OUTSIDE RECORDS SUMMARY | 2018-04-28 05:33 | XMS REPORT ---
Author Author MARLEY MCGRATH Organization [facility] Address [address] [place] [address] Care Team Providers Care Telesales Team Leader Name Role Phone MARLEY MCGRATH Unavailable PROBLEMS Type Condition ICD9-CM Code XCV38-KE Code Onset Dates Condition Status SNOMED Code Problem Hammertoe of right foot M20.41 Active 591748962 Problem Moderate episode of recurrent major depressive disorder F33.1 Active 336494175 Problem Hypertriglyceridemia E78.1 Active 056261119 Problem Other chronic pain G89.29 Active 07422062 Problem Memory loss R41.3 Active 435887621 Problem 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.01 Active 6153183 Problem Chronic fatigue R53.82 Active 22219592 Problem Controlled type 2 diabetes mellitus without complication, without long -term current use of insulin E11.9 Active 690623461 Problem Chronic major depressive disorder, recurrent episode F33.9 Active 27802983 Problem Knee pain, right M25.561 Active 55965287 Problem Diabetes type 2, controlled E11.9 Active 69377900 Problem Type 2 diabetes mellitus without complications E11.9 Active 070888816 Problem Hypogonadism in male E29.1 Active 27312270 Problem detention (current) use of anticoagulants Z79.01 Active 420182993 ALLERGIES No Information ENCOUNTERS Encounter Location Date Diagnosis [place] [id number] [place] [address] 92123- 8276 Nov, Type 2 diabetes mellitus without complications E11.9 and History of Coumadin therapy Z92.29 [place] [id number] [place] [address] 30576- 7309 Nov, Medicare welcome exam Z00.00 [place] [address] [place] [id number] [place] [address] 42078- 0115 Nov, Type 2 diabetes mellitus without complications E11.9 ; History of Coumadin therapy Z92.29 and Hypogonadism in male E29.1 [facility] [address] [address] Nov, [facility] [address] [address] Oct, [facility] [address] [address]- 4669 Oct, Diabetes type 2, controlled E11.9 [facility] [address] [address]- 4275 Oct, Medicare welcome exam Z00.00 [facility] [address] [address] 5[address] Oct, Hypogonadism in male E29.1 [facility] [address] [address] Oct, [facility] [address] [address] 1489 September, Hypogonadism in male E29.1 [facility] [address] [address] 8137 September, Medicare welcome exam Z00.00 [facility] [address] [address]- 2020 September, Hypogonadism in male E29.1 [facility] [address] [address] 7513 Aug, Other chronic pain G89.29 ; Memory loss R41.3 ; Controlled type 2 diabetes mellitus without complication, without long-term current use of insulin E11.9 and Chronic major depressive disorder, recurrent episode F33.9 [facility] [address] [address] 3269 Aug, Medicare welcome exam Z00.00 [facility] [address] [address] 1116 Aug, [facility] [address] [address] 07 Aug, 2017 Hypogonadism in male E29.1 [facility] [address] [place] [id number] [place] [address] 61342- 2084 Jul, [facility] [address] [place] [address] [id number] [place] [address] 55467- 3847 Jul, Hypogonadism in male E29.1 [facility] [address] [place] [address] [id number] [place] [address] 10435- 0909 Jul, [facility] [address] [place] [id number] [place] [address] 48416 -0924 Jul, Hypogonadism in male E29.1 [facility] [address] [place] [id number] [place] [address] 56542- 6503 Jul, Medicare welcome exam Z00.00 [facility] [address] [place] [id number] [place] [address] 08495- 6198 Jun, Medicare welcome exam Z00.00 [facility] [id number] [place] [address] 11755 -1000 Jun, Fever R50.[address] B J[address]1 [facility] [address] [place] [id number] [address]- 6816 Jun, Hypogonadism in male E29.1 [facility] [address] [place] [id number] [place] [address] 39598- 3188 Jun, Diabetes type 2, controlled E11.9 [facility] [id number] [place] [address] 73183- 5269 May, Hypogonadism in male E29.1 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 [address] [place] [id number] [place] [address] 81690- 5578 Apr, Hypogonadism in male E29.1 [facility] [address] [address] Apr, [facility] [address] [address]- 2016 Apr, Medicare welcome exam Z00.00 and detention (current) use of anticoagulants Z79.01 [facility] [address] [address]- 9347 Apr, Hypogonadism in male E29.1 [facility] [address] [address]- 8526 Mar, Diabetes type 2, controlled E11.9 [place] [address] [place] [id number] [address]- 0876 Mar, Hypogonadism in male E29.1 [place] [address] [place] [id number] [address]- 1586 Mar, Hypogonadism in male E29.1 [place] [address] 4732 Feb, Hypogonadism in male E29.1 [facility] [address] 3596 Feb, Malaise R53.81 [place] [address] [address]- 0647 Feb, [facility] [address] [address]- 1821 Feb, Diabetes type 2, controlled E11.9 [facility] [address] 9996 Feb, Chronic fatigue R53.82 ; Malaise R53.81 and Moderate episode of recurrent major depressive disorder F33.1 [facility] [address] [address]- 1996 Jan, Diabetes type 2, controlled E11.9 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 [address] [place] [id number] [place] [address] 08607- 3593 Dec, Diabetes type 2, controlled E11.9 and Hypertriglyceridemia E78.1 [place] [address] [place] [id number] [place] [address] 45647- 9201 Dec, Diabetes type 2, controlled E11.9 [facility] [address] [place] [id number] [place] [address] 47402- 1195 Dec, High risk medication use Z79.899 and detention (current) use of anticoagulants Z79.01 [place] [address] [place] [id number] [place] [address] 16812- 8553 Dec, High risk medication use Z79.899 [place] [address] [place] [id number] [place] [address] 06507- 0518 Nov, Diabetes type 2, controlled E11.9 [place] [address] [place] [id number] [place] [address] 33645- 4533 Oct, Diabetes type 2, controlled E11.9 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 [address] [place] [id number] [place] [address] 71889- 3581 Aug, detention (current) use of anticoagulants Z79.01 and Hematoma of arm, right, initial encounter S40.021A [facility] [address] [place] [id number] [place] [address] 36662- 6199 Aug, [facility] [address] [place] [id number] [place] [address] 97593 -8154 18 Aug, 2016 Cellulitis of right upper extremity L03.113 [place] [address] [address]32- 6805 14 Aug, 2016 Diabetes type 2, controlled E11.9 [place] [address] [place] [id number] [place] [address] 22595- 2367 07 Aug, 2016 Hammertoe of right foot M20.41 ; Hallux abducto valgus, left M20.12 and Onychomycosis B35.1 [place] [address] [place] [id number] [place] [address] 04245- 4826 Aug, 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 [place] [address] [place] [id number] [place] [address] 97540- 3114 Aug, detention (current) use of anticoagulants Z79.01 [place] [address] 80764- 6948 Aug, detention (current) use of anticoagulants Z79.01 [facility] [address] [place] [id number] [place] [address] 18732 -1026 Aug, Right shoulder pain M25.511 and Closed nondisplaced fracture of acromial end of right clavicle, initial encounter S42.034A [place] [address] [place] [id number] [place] [address] 82459- 8909 Jul, Diabetes type 2, controlled E11.9 [place] [address] [place] [id number] [place] [address] 82211- 3993 Jun, Diabetes type 2, controlled E11.9 and detention (current) use of anticoagulants Z79.01 [place] [address] [place] [id number] [place] [address] 62096- 0690 May, [place] [address] [place] [id number] [place] [address] 59157- 4466 Apr, [place] [address] [address]- 0096 Mar, [facility] [address] [address]- 9872 Feb, [facility] [address] [address]- 1466 Dec, Diabetes type 2, controlled E11.9 [facility] [address] [place] [id number] [place] [address] 79322- 6260 Dec, [facility] [address] [address]- 1040 Nov, [facility] [address] [place] [id number] [place] [address] 17467- 2240 Nov, Type 2 diabetes mellitus without complications E11.9 [facility] [id number] [place] [address] 74786- 1818 Oct, Type 2 diabetes mellitus without complications E11.9 [facility] [address] [address]- 5042 Aug, [facility] [id number] [place] [address] 95844- 0584 Aug, Type 2 diabetes mellitus without complications E11.9 [facility] [address] [address]- 2634 Jun, Type 2 diabetes mellitus without complications E11.9 and 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 mcc use of antiplatelet drug Z79.02 [facility] [address] [address]- 5501 May, [facility] [address] [address]- 4801 May, Diabetes type 2, controlled E11.9 [facility] [address] [address]- 3723 Apr, Diabetes type 2, controlled E11.9 [facility] [address] [place] [address] 37856- 5363 Mar, Diabetes type 2, controlled E11.9 ; Knee pain, right M25.561 ; Other chronic pain G89.29 and Medication monitoring encounter Z51.81 [facility] [address] [place] [id number] [place] [address] 57428- 3062 Feb, Type 2 diabetes mellitus without complications E11.9 ; High risk medication use Z79.[address] [facility] [address] [place] [id number] [place] [address] 01477- 7070 Jan, Diabetes 250.00 [facility] [address] [place] [id number] [place] [address] 87220- 6386 Dec, Diabetes 250.00 [facility] [address] [place] [id number] [place] [address] 32980- 2546 Nov, Diabetes 250.00 [facility] [address] [place] [id number] [place] [address] 81367- 1661 Nov, [facility] [address] [place] [id number] [place] [address] 30736- 4497 Oct, Diabetes mellitus type 1 250.01 and High risk medication use V58.69 [facility] [address] [address]- 5909 Oct, [facility] [address] [address]- 2584 September, [facility] [address] [address]- 0593 Aug, [facility] [id number] [place] [address] 06762- 2424 Aug, [facility] [address] [place] [id number] [place] [address] 29250- 8436 Jul, [facility] [address] [address]- 1573 Jul, [facility] [address] [place] [id number] [place] [address], [place] 4339 Jun, [facility] [place] [facility] [address] [id number] [place] [address]- 4969 Jun, [facility] [place] [facility] [address] [id number] [place] [address]- 3039 Jun, [facility] [place] [facility] [address] [id number] [place] [address]- 5131 May, [facility] [place] [facility] [address] [id number] [place] [address]- 6575 May, [facility] [place] [facility] [address] [id number] [place] [address]- 6752 Apr, [facility] [place] [facility] [address] [id number] [place] [address]- 8375 Apr, [facility] [place] [facility] [address] [id number] [place] [address]- 7596 Apr, [facility] [place] [facility] [address] [id number] [place] [address]- 0652 Apr, [facility] [place] [facility] [address] [id number] [place] [address]- 5856 Apr, [facility] [place] [facility] [address] [facility] [id number] [place] [address]- 5713 Apr, [facility] [place] [facility] [address] [id number] [place] [address]- 5149 Feb, [facility] [place] [facility] [address] [id number] [place] [address]- 2900 Feb, [facility] [place] [facility] [address] [id number] [place] [address]- 6473 Feb, [facility] [place] [facility] [address] [id number] [place] 5427 Feb, [facility] [place] [facility] [address] [id number] [place] 3573 Dec, [facility] [place] [facility] [address] [id number] [place] [address]- 8829 Dec, [facility] [place] [facility] [address] [id number] [place] [address]- 6133 Nov, [facility] [place] [facility] [address] [id number] [place] [address]- 0454 Nov, [facility] [place] [facility] [address] [id number] [place] [address]- 4093 Oct, [facility] [place] [facility] [address] [id number] [place] [address]- 1985 Oct, [facility] [place] [facility] [address] [id number] [place] [address]- 3932 Oct, [facility] [place] [facility] [address] [id number] [place] [address]- 5255 Oct, [facility] [place] [facility] [address] [id number] [place] [address]- 3527 Oct, [facility] [place] [facility] [address] [id number] [place] [address]- 1699 Oct, [facility] [place] [facility] [address] [id number] [place] [address]- 0794 September, [facility] [place] [facility] [address] [id number] [place] [address]- 8432 September, [facility] [place] [facility] [address] [id number] [place] [address]- 7786 September, [facility] [place] [facility] [address] [id number] [place] 9300 September, [facility] [place] [facility] [address] [id number] [place] [address]- 1522 September, [facility] [place] [facility] [address] [id number] [place] [address]- 3869 September, [facility] [place] [facility] [address] [id number] [place] [address]- 7867 Aug, [facility] [place] [facility] [address] [id number] [place] [address]- 2200 Aug, [facility] [place] [facility] [address] [id number] [place] [address]- 4591 Aug, [facility] [place] [facility] [address] [id number] [place] [address]- 1742 Aug, [facility] [place] [facility] [address] [id number] [place] [address]- 7320 Aug, [facility] [place] [facility] [address] [id number] [place] [address]- 9168 Aug, [facility] [place] [facility] [address] [id number] [place] [address]- 7095 Jul, [facility] [place] [facility] [address] [id number] [place] [address]- 7128 Jul, [facility] [place] [facility] [address] [id number] [place] [address]- 0234 Jul, [facility] [place] [facility] [address] [id number] [place] [address]- 8805 Jul, [facility] [place] [facility] [address] [id number] [place] [address]- 0637 May, [facility] [place] [facility] [address] [id number] [place] [address]- 6601 May, [facility] [place] [facility] [address] [id number] [place] [address]- 6310 Apr, [facility] [place] [facility] [address] [id number] [place] [address]- 7849 Apr, [facility] [place] [facility] [address] [id number] [place] [address]- 1558 Apr, [facility] [place] [facility] [address] [id number] [place] 7001 Apr, [facility] [place] [facility] [address] [id number] [place] [address] 2548 Apr, [facility] [address] [id number] [place] [address]- 2894 Apr, [facility] [place] [facility] [address] [id number] [place] [address]- 2309 Feb, [facility] [address] [id number] [place] [address]- 4310 Feb, [facility] [address] [id number] [place] [address]- 1268 Feb, [facility] [address] [id number] [place] [address]- 6123 Feb, [facility] [address] [id number] [place] [address]- 6206 Feb, [facility] [address] [id number] [place] [address]- 4794 Feb, [facility] [address] [id number] [place] [address]- 8859 Feb, [facility] [place] [facility] [address] [id number] [place] [address]- 1983 Feb, [facility] [address] [id number] [place] [address]- 9551 Jan, [facility] [place] [facility] [address] [id number] [place] [address]- 2086 Jan, [facility] [place] [facility] [address] [id number] [place] [address]- 4309 Jan, [facility] [place] [facility] [address] [id number] [place] [address]- 6823 Jan, [facility] [place] [facility] [address] [id number] [place] [address]- 0687 Dec, [facility] [place] [facility] [address] [id number] [place] [address]- 1976 Dec, [facility] [address] [id number] [place] [address]- 3990 Dec, [facility] [place] [facility] [address] [id number] [place] [address]- 5913 Nov, [facility] [place] [facility] [address] [id number] [place] [address]- 6021 Nov, [facility] [place] [facility] [address] [id number] [place] [address]- 5910 Oct, [facility] [address] [id number] [place] [address]- 5470 September, [facility] [place] [facility] [address] [id number] [place] [address]- 7003 September, [facility] [place] [facility] [address] [id number] [place] [address]- 4254 September, [facility] [place] [facility] [address] [id number] [place] [address]- 8835 Aug, [facility] [place] [facility] [address] [id number] [place] [address] Aug, [facility] [place] [facility] [address] [id number] [place] [address] Aug, [facility] [place] [facility] [address] [id number] [place] [address] Jul, [facility] [place] [facility] [address] [id number] [place] [address] Jul, [facility] [place] [facility] [address] [id number] [place] [address] Jun, [facility] [place] [facility] [address] [id number] [place] [address] Jun, [facility] [place] [facility] [address] [id number] [place] [address] Jun, [facility] [place] [facility] [address] [id number] [place] [address] 06 Jun, 2012 [facility] [address] [id number] [place] [address] May, [facility] [place] [facility] [address] [id number] [place] [address] May, [facility] [address] [id number] [place] [address] Apr, [facility] [place] [facility] [address] [id number] [place] [address] Apr, [facility] [address] [id number] [place] [address] Apr, [facility] [place] [facility] [address] [id number] [place] [address] Apr, [facility] [address] [facility] [id number] [place] [address] Apr, [facility] [address] [id number] [place] [address] Apr, [facility] [place] [facility] [address] [id number] [place] [address] Mar, [facility] [place] [facility] [address] [facility] [id number] [place] [address] Mar, [facility] [place] [facility] [address] [id number] [place] [address] Mar, [facility] [place] [facility] [address] [id number] [place] [address] Mar, [facility] [place] [facility] [address] [id number] [place] [address] Mar, [facility] [place] [facility] [address] [facility] [id number] [place] [address] Mar, [facility] [place] [facility] [address] [id number] [place] [address] Feb, [facility] [place] [facility] [address] [id number] [place] [address] Feb, [facility] [place] [facility] [address] [id number] [place] [address] Feb, [facility] [place] [facility] [address] [id number] [place] [address] Feb, [facility] [place] [facility] [address] [id number] [place] [address] Feb, [facility] [place] [facility] [address] [id number] [place] [address] Jan, [facility] [place] [facility] [address] [id number] [place] [address] Jan, [facility] [place] [facility] [address] [id number] [place] [address] Jan, [facility] [place] [facility] [address] [id number] [place] [address] Dec, [facility] [place] [facility] [address] [id number] [place] [address] Dec, [facility] [place] [facility] [address] [id number] [place] [address] Nov, [facility] [place] [facility] [address] [id number] [place] [address] Oct, [facility] [place] [facility] [address] [id number] [place] [address] Oct, [facility] [place] [facility] [address] [id number] [place] [address] Oct, [facility] [place] [facility] [address] [id number] [place] [address] Oct, [facility] [place] [facility] [address] [id number] [place] [address] Oct, [facility] [place] [facility] [address] [id number] [place] [address] 16 Sep, 2011 [facility] [place] [facility] [address] [id number] [place] [address] 18 Aug, 2011 [facility] [place] [facility] [address] [id number] [place] [address] 18 Aug, 2011 [facility] [place] [facility] [address] [id number] [place] [address] 17 Aug, 2011 [facility] [place] [facility] [address] [id number] [place] [address] 16 Aug, 2011 [facility] [place] [facility] [address] [id number] [place] [address] 13 Aug, 2011 [facility] [place] [facility] [address] [id number] [place] [address] Aug, [facility] [place] [facility] [address] [address] [id number] [place] [address] Aug, [facility] [place] [facility] [address] [id number] [place] [address] Aug, [facility] [place] [facility] [address] [id number] [place] [address] 05 Aug, 2011 [facility] [place] [facility] [address] [id number] [place] [address] Jul, [facility] [place] [facility] [address] [id number] [place] [address] Jul, [facility] [place] [facility] [address] [id number] [place] [address] Jul, [facility] [place] [facility] [address] [id number] [place] [address] Jul, [facility] [place] [facility] [address] [id number] [place] 08 Jul, 2011 [facility] [place] [facility] [address] [id number] [place] [address] 15 Jun, 2011 [facility] [place] [facility] [address] [id number] [place] [address] 14 Jun, 2011 [facility] [address] [id number] [place] [address] 08 Jun, 2011 [facility] [place] [facility] [address] [id number] [place] [address] 08 Jun, 2011 [facility] [address] [id number] [place] [address] May, [facility] [address] [id number] [place] [address] 13 May, 2011 [facility] [place] [facility] [address] [id number] [place] [address] May, [facility] [address] [id number] [place] [address] May, [facility] [address] [id number] [place] [address] May, [facility] [address] [id number] [place] [address] May, [facility] [address] [id number] [place] [address] May, [facility] [address] [id number] [place] [address] 21 Apr, 2011 [facility] [address] [id number] [place] [address] 13 Apr, 2011 [facility] [place] [facility] [address] [id number] [place] [address] 13 Apr, 2011 [facility] [place] [facility] [address] [id number] [place] [address] 13 Apr, 2011 [facility] [place] [facility] [address] [id number] [place] [address] 13 Apr, 2011 [facility] [place] [facility] [address] [id number] [place] [address] Apr, [facility] [place] [facility] [address] [id number] [place] [address] Apr, [facility] [place] [facility] [address] [id number] [place] [address] Apr, [facility] [place] [facility] [address] [facility] [id number] [place] [address] Apr, [facility] [place] [facility] [address] [id number] [place] [address] Apr, [facility] [place] [facility] [address] [id number] [place] [address] Mar, [facility] [place] [facility] [address] [id number] [place] [address] Mar, [facility] [place] [facility] [address] [id number] [place] [address] Feb, [facility] [place] [facility] [address] [id number] [place] [address] Jun, [facility] [place] [facility] [address] [id number] [place] [address] Apr, [facility] [place] [facility] [address] [id number] [place] [address] Feb, [facility] [place] [facility] [address] [id number] [place] [address] Feb, [facility] [place] [facility] [address] [id number] [place] [address] Feb, [facility] [place] [facility] [address] [id number] [place] [address] Apr, [facility] [place] [facility] [address] [facility] [id number] [place] [address] Apr, [facility] [place] [facility] [address] [facility] [id number] [place] [address] Mar, [facility] [place] [facility] [address] [facility] [id number] [place] [address] Mar, [facility] [address] [facility] [id number] [address] Mar, [facility] [address] [id number] [address] Feb, [facility] [address] [facility] [id number] [address] Feb, [facility] [address] [id number] [address] Feb, [facility] [address] [facility] [id number] [place] [address] Jan, IMMUNIZATIONS No Known Immunizations SOCIAL HISTORY Never Assessed REASON FOR VISIT Repository Medication PLAN OF CARE VITAL SIGNS MEDICATIONS Medication [...]
--- OUTSIDE RECORDS SUMMARY | 2018-04-28 05:34 | XMS REPORT ---
Author Author MARLEY MCGRATH Organization [facility] Address [address] [place] [address] Care Team Providers Care Pattern Checker Name Role Phone MARLEY MCGRATH Unavailable PROBLEMS Type Condition ICD9-CM Code LYU74-RY Code Onset Dates Condition Status SNOMED Code Problem Hammertoe of right foot M20.41 Active 538236297 Problem Moderate episode of recurrent major depressive disorder F33.1 Active 210859538 Problem Hypertriglyceridemia E78.1 Active 274732375 Problem Other chronic pain G89.29 Active 62290680 Problem Memory loss R41.3 Active 064150015 Problem 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.01 Active 0414421 Problem Chronic fatigue R53.82 Active 17978141 Problem Controlled type 2 diabetes mellitus without complication, without long -term current use of insulin E11.9 Active 865558405 Problem Chronic major depressive disorder, recurrent episode F33.9 Active 73974375 Problem Knee pain, right M25.561 Active 64675288 Problem Diabetes type 2, controlled E11.9 Active 45803615 Problem Type 2 diabetes mellitus without complications E11.9 Active 807101248 Problem Hypogonadism in male E29.1 Active 60560066 Problem custodial (current) use of anticoagulants Z79.01 Active 947055751 ALLERGIES No Information ENCOUNTERS Encounter Location Date Diagnosis [place] [id number] [place] [address] 34285- 0223 Nov, Type 2 diabetes mellitus without complications E11.9 and History of Coumadin therapy Z92.29 [place] [id number] [place] [address] 50586- 5355 Nov, Medicare welcome exam Z00.00 [place] [address] [place] [id number] [place] [address] 39946- 3284 Nov, Type 2 diabetes mellitus without complications E11.9 ; History of Coumadin therapy Z92.29 and Hypogonadism in male E29.1 [facility] [address] [address] Nov, [facility] [address] [address] 6266 Oct, [facility] [address] [address] 4105 Oct, Diabetes type 2, controlled E11.9 [facility] [address] [address] 1565 Oct, Medicare welcome exam Z00.00 [facility] [address] [address] 6[address] Oct, Hypogonadism in male E29.1 [facility] [address], [place] [address] Oct, [facility] [address] [address] 7[address] September, Hypogonadism in male E29.1 [facility] [address] [address] 8910 September, Medicare welcome exam Z00.00 [facility] [address] [address] September, Hypogonadism in male E29.1 [facility] [address] [address] 2[address] Aug, Other chronic pain G89.29 ; Memory loss R41.3 ; Controlled type 2 diabetes mellitus without complication, without long-term current use of insulin E11.9 and Chronic major depressive disorder, recurrent episode F33.9 [facility] [address], [place] [address] 8445 Aug, Medicare welcome exam Z00.00 [facility] [address] [address] 6394 Aug, [facility] [address] [address] 07 Aug, 2017 Hypogonadism in male E29.1 [facility] [address] [place] [id number] [place] [address] 29212- 9184 Jul, [facility] [address] [place] [id number] [place] [address] 61118- 3409 Jul, Hypogonadism in male E29.1 [facility] [address] [place] [id number] [place] [address] 10252- 0961 Jul, [facility] [address] [place] [id number] [place] [address] 94923 -8240 Jul, Hypogonadism in male E29.1 [facility] [address] [place] [id number] [place] [address] 75349- 4992 Jul, Medicare welcome exam Z00.00 [facility] [address] [place] [id number] [place] [address] 80601- 7476 Jun, Medicare welcome exam Z00.00 [facility] [id number] [place] [address] 67632 -6026 Jun, Fever R50.9 and Influenza B J10.1 [facility] [address] [place] [address] [address] 1367 Jun, Hypogonadism in male E29.1 [facility] [address] [place] [id number] [place] [address] 78537- 6455 Jun, Diabetes type 2, controlled E11.9 [facility] [address] [place] [address] 71037- 3990 May, Hypogonadism in male E29.1 [facility] [address] [place] [address] [id number] [place] [address] 60343- 0877 May, job tracer (current) use of anticoagulants Z79.01 [facility] [address] [place] [id number] [place] [address] 02598- 7356 Apr, Hypogonadism in male E29.1 [facility] [address] [address] Apr, [facility] [address], [place] [address]- 0946 Apr, Medicare welcome exam Z00.00 and custodial (current) use of anticoagulants Z79.01 [facility] [address], [place] [address]- 3273 Apr, Hypogonadism in male E29.1 [facility] [address], [place] [address]- 5111 Mar, Diabetes type 2, controlled E11.9 [place] [address] [place] [address] [address] [address] 8486 Mar, Hypogonadism in male E29.1 [place] [address] [place] [address] [address]- 6084 Mar, Hypogonadism in male E29.1 [place] [address] [address] Feb, Hypogonadism in male E29.1 [facility] [address] 9426 Feb, Malaise R53.81 [place] [address], [place] [address]- 4336 Feb, [facility] [address], [place] [address]- 5320 Feb, Diabetes type 2, controlled E11.9 [facility] [address] [address]16 Feb, Chronic fatigue R53.82 ; Malaise R53.81 and Moderate episode of recurrent major depressive disorder F33.1 [facility] [address], [place] [address]- 5852 Jan, Diabetes type 2, controlled E11.9 [facility] [address] [place] [address] 59340- 0979 Jan, 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.01 and job tracer (current) use of anticoagulants Z79.01 [facility] [address] [place] [id number] [place] [address] 76129- 2991 Dec, Diabetes type 2, controlled E11.9 and Hypertriglyceridemia E78.1 [place] [address] [place] [id number] [place] [address] 79941- 2061 Dec, Diabetes type 2, controlled E11.9 [facility] [address] [place] [id number] [place] [address] 98400- 7195 Dec, High risk medication use Z79.899 and custodial (current) use of anticoagulants Z79.01 [place] [address] [place] [id number] [place] [address] 24114- 8784 Dec, High risk medication use Z79.899 [place] [address] [place] [id number] [place] [address] 25671- 9560 Nov, Diabetes type 2, controlled E11.9 [place] [address] [place] [id number] [place] [address] 38168- 0803 Oct, Diabetes type 2, controlled E11.9 [facility] [address] [place] [id number] [place] [address] 29611- 0449 September, Diabetes type 2, controlled E11.9 [place] [address] [place] [id number] [place] [address] 44942- 1397 Aug, job tracer (current) use of anticoagulants Z79.01 [facility] [address] [place] [id number] [place] [address] 21593- 2007 Aug, custodial (current) use of anticoagulants Z79.01 and Hematoma of arm, right, initial encounter S40.021A [facility] [address] [place] [address] [id number] [place] [address] 19402- 4714 Aug, [facility] [address] [place] [address] [id number] [place] [address] 68547 -0173 18 Aug, 2016 Cellulitis of right upper extremity L03.113 [place] [address] 64507- 1536 14 Aug, 2016 Diabetes type 2, controlled E11.9 [place] [address] [place] [id number] [place] [address] 36829- 6228 07 Aug, 2016 Hammertoe of right foot M20.41 ; Hallux abducto valgus, left M20.12 and Onychomycosis B35.1 [place] [address] [place] [id number] [place] [address] 32121- 9582 Aug, job tracer (current) use of anticoagulants Z79.01 [place] [address] [place] [id number] [place] [address] 15155- 3470 Aug, custodial (current) use of anticoagulants Z79.01 [place] [address] 42176- 3016 Aug, custodial (current) use of anticoagulants Z79.01 [facility] [address] [place] [id number] [place] [address] 11370 -2939 Aug, Right shoulder pain M25.511 and Closed nondisplaced fracture of acromial end of right clavicle, initial encounter S42.034A [place] [address] [place] [id number] [place] [address] 10073- 0785 Jul, Diabetes type 2, controlled E11.9 [place] [address] [place] [id number] [place] [address] 92300- 5325 Jun, Diabetes type 2, controlled E11.9 and custodial (current) use of anticoagulants Z79.01 [place] [address] [place] [id number] [place] [address] 45245- 7152 May, [place] [address] [place] [id number] [place] [address] 31380- 5602 Apr, [place] [address] [address]- 9930 Mar, [facility] [address], [place] [address]- 9315 Feb, [facility] [address] [address]- 6233 Dec, Diabetes type 2, controlled E11.9 [facility] [address] [place] [id number] [place] [address] 53449- 3168 Dec, [facility] [address] [address]- 1449 Nov, [facility] [address] [place] [id number] [place] [address] 61390- 2940 Nov, Type 2 diabetes mellitus without complications E11.9 [facility] [address] [place] [address] 06569- 7477 Oct, Type 2 diabetes mellitus without complications E11.9 [facility] [address], [place] [address]- 7518 Aug, [facility] [address] [place] [address] 80247- 5887 Aug, Type 2 diabetes mellitus without complications E11.9 [facility] [address], [place] [address]- 5674 Jun, Type 2 diabetes mellitus without complications E11.9 and 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 retirement use of antiplatelet drug Z79.02 [facility] [address] [address]- 7612 May, [facility] [address] [address]- 0509 May, Diabetes type 2, controlled E11.9 [facility] [address] [address]- 4830 Apr, Diabetes type 2, controlled E11.9 [facility] [address] [place] [address] 33688- 9491 Mar, Diabetes type 2, controlled E11.9 ; Knee pain, right M25.561 ; Other chronic pain G89.29 and Medication monitoring encounter Z51.81 [facility] [address] [place] [id number] [place] [address] 77725- 6226 Feb, Type 2 diabetes mellitus without complications E11.9 ; High risk medication use Z79.899 and Anxiety F41.9 [facility] [address] [place] [id number] [place] [address] 39824- 5843 Jan, Diabetes 250.00 [facility] [address] [place] [id number] [place] [address] 33759- 6586 Dec, Diabetes 250.00 [facility] [address] [place] [id number] [place] [address] 46173- 2546 Nov, Diabetes 250.00 [facility] [address] [place] [id number] [place] [address] 13576- 5318 Nov, [facility] [address] [place] [id number] [place] [address] 41687- 6820 Oct, Diabetes mellitus type 1 250.01 and High risk medication use V58.69 [facility] [address] [address]- 1583 Oct, [facility] [address], [place] [address]- 2757 September, [facility] [address] [address]- 0724 Aug, [facility] [address] [place] [address] 93414- 9897 Aug, [facility] [address] [place] [id number] [place] [address] 61387- 0726 Jul, [facility] [address] [address]- 4188 Jul, [facility] [address] [place] [id number] [place] [address], [place] [address]644 Jun, [facility] [place] [facility] [address] [id number] [place] [address]- 9495 Jun, [facility] [place] [facility] [address] [id number] [place] [address]- 9705 Jun, [facility] [place] [facility] [address] [id number] [place] [address]- 4311 May, [facility] [place] [facility] [address] [id number] [place] [address]- 8983 May, [facility] [place] [facility] [address] [id number] [place] [address]- 7049 Apr, [facility] [place] [facility] [address] [id number] [place] [address]- 9896 Apr, [facility] [place] [facility] [address] [id number] [place] [address]- 5462 Apr, [facility] [place] [facility] [address] [id number] [place] [address]- 8671 Apr, [facility] [place] [facility] [address] [id number] [place] [address]- 0500 Apr, [facility] [place] [facility] [address] [facility] [id number] [place] [address]- 5840 Apr, [facility] [place] [facility] [address] [id number] [place] [address]- 7927 Feb, [facility] [place] [facility] [address] [id number] [place] [address]- 5275 Feb, [facility] [place] [facility] [address] [id number] [place] [address]- 6633 Feb, [facility] [place] [facility] [address] [id number] [place] 6980 Feb, [facility] [place] [facility] [address] [id number] [place] 9070 Dec, [facility] [place] [facility] [address] [id number] [place] [address]- 6163 Dec, [facility] [place] [facility] [address] [id number] [place] [address]- 0342 Nov, [facility] [place] [facility] [address] [id number] [place] [address]- 4431 Nov, [facility] [place] [facility] [address] [id number] [place] [address]- 7280 Oct, [facility] [place] [facility] [address] [id number] [place] [address]- 8925 Oct, [facility] [place] [facility] [address] [id number] [place] [address]- 0805 Oct, [facility] [place] [facility] [address] [id number] [place] [address]- 3659 Oct, [facility] [place] [facility] [address] [id number] [place] [address]- 0752 Oct, [facility] [place] [facility] [address] [id number] [place] [address]- 4830 Oct, [facility] [place] [facility] [address] [id number] [place] [address]- 6446 September, [facility] [place] [facility] [address] [id number] [place] [address]- 7765 September, [facility] [place] [facility] [address] [id number] [place] [address]- 5345 September, [facility] [place] [facility] [address] [id number] [place] 7445 September, [facility] [place] [facility] [address] [id number] [place] [address]- 2235 September, [facility] [place] [facility] [address] [id number] [place] [address]- 5979 September, [facility] [place] [facility] [address] [id number] [place] [address]- 6758 Aug, [facility] [place] [facility] [address] [id number] [place] [address]- 0304 Aug, [facility] [place] [facility] [address] [id number] [place] [address]- 3090 Aug, [facility] [place] [facility] [address] [id number] [place] [address]- 7264 Aug, [facility] [place] [facility] [address] [id number] [place] [address]- 4261 Aug, [facility] [place] [facility] [address] [id number] [place] [address]- 6087 Aug, [facility] [place] [facility] [address] [id number] [place] [address]- 7016 Jul, [facility] [place] [facility] [address] [id number] [place] [address]- 3799 Jul, [facility] [place] [facility] [address] [id number] [place] [address]- 6841 Jul, [facility] [place] [facility] [address] [id number] [place] [address]- 8110 Jul, [facility] [place] [facility] [address] [id number] [place] [address]- 9617 May, [facility] [place] [facility] [address] [id number] [place] [address]- 7884 May, [facility] [place] [facility] [address] [id number] [place] [address]- 7548 Apr, [facility] [place] [facility] [address] [id number] [place] [address]- 5531 Apr, [facility] [place] [facility] [address] [id number] [place] [address]- 8987 Apr, [facility] [place] [facility] [address] [id number] [place] 7452 Apr, [facility] [place] [facility] [address] [id number] [place] [address] 2549 Apr, [facility] [address] [id number] [place] [address]- 4158 Apr, [facility] [place] [facility] [address] [id number] [place] [address]- 2306 Feb, [facility] [address] [id number] [place] [address]- 7940 Feb, [facility] [address] [id number] [place] [address]- 7097 Feb, [facility] [address] [id number] [place] [address]- 4478 Feb, [facility] [address] [id number] [place] [address]- 5426 Feb, [facility] [address] [id number] [place] [address]- 4751 Feb, [facility] [address] [id number] [place] [address]- 4607 Feb, [facility] [place] [facility] [address] [id number] [place] [address]- 5182 Feb, [facility] [address] [id number] [place] [address]- 2920 Jan, [facility] [place] [facility] [address] [id number] [place] [address]- 3506 Jan, [facility] [place] [facility] [address] [id number] [place] [address]- 0106 Jan, [facility] [place] [facility] [address] [id number] [place] [address]- 9952 Jan, [facility] [place] [facility] [address] [id number] [place] [address]- 5996 Dec, [facility] [place] [facility] [address] [id number] [place] [address]- 2510 Dec, [facility] [address] [id number] [place] [address]- 9850 Dec, [facility] [place] [facility] [address] [id number] [place] [address]- 7386 Nov, [facility] [place] [facility] [address] [id number] [place] [address]- 4243 Nov, [facility] [place] [facility] [address] [id number] [place] [address]- 1911 Oct, [facility] [address] [id number] [place] [address]- 8716 September, [facility] [place] [facility] [address] [id number] [place] [address]- 3510 September, [facility] [place] [facility] [address] [id number] [place] [address]- 4171 September, [facility] [place] [facility] [address] [id number] [place] [address]- 2829 Aug, [facility] [place] [facility] [address] [id number] [place] [address]- 8002 Aug, [facility] [place] [facility] [address] [id number] [place] [address]- 6540 Aug, [facility] [place] [facility] [address] [id number] [place] [address]- 6940 Jul, [facility] [place] [facility] [address] [id number] [place] [address]- 9328 Jul, [facility] [place] [facility] [address] [id number] [place] [address]- 6155 Jun, [facility] [place] [facility] [address] [id number] [place] [address]- 1450 Jun, [facility] [place] [facility] [address] [id number] [place] [address]- 4977 Jun, [facility] [place] [facility] [address] [id number] [place] [address]- 1132 06 Jun, 2012 [facility] [address] [id number] [place] [address] May, [facility] [place] [facility] [address] [id number] [place] [address] May, [facility] [address] [id number] [place] [address] Apr, [facility] [place] [facility] [address] [id number] [place] [address] Apr, [facility] [address] [id number] [place] [address] Apr, [facility] [place] [facility] [address] [id number] [place] [address] Apr, [facility] [address] [facility] [place] [id number] [place] [address] Apr, [facility] [address] [id number] [place] [address] Apr, [facility] [place] [facility] [address] [id number] [place] [address] Mar, [facility] [place] [facility] [address] [facility] [place] [id number] [place] [address] Mar, [facility] [place] [facility] [address] [id number] [place] [address] Mar, [facility] [place] [facility] [address] [id number] [place] [address] Mar, [facility] [place] [facility] [address] [id number] [place] [address]28 Mar, [facility] [place] [facility] [address] [facility] [place] [id number] [place] [address] Mar, [facility] [place] [facility] [address] [id number] [place] [address] Feb, [facility] [place] [facility] [address] [id number] [place] [address] Feb, [facility] [place] [facility] [address] [id number] [place] [address] Feb, [facility] [place] [facility] [address] [id number] [place] [address] Feb, [facility] [place] [facility] [address] [id number] [place] [address] Feb, [facility] [place] [facility] [address] [id number] [place] [address] Jan, [facility] [place] [facility] [address] [id number] [place] [address] Jan, [facility] [place] [facility] [address] [id number] [place] [address] Jan, [facility] [place] [facility] [address] [id number] [place] [address] Dec, [facility] [place] [facility] [address] [id number] [place] [address] Dec, [facility] [place] [facility] [address] [id number] [place] [address] Nov, [facility] [place] [facility] [address] [id number] [place] [address] Oct, [facility] [place] [facility] [address] [id number] [place] [address] 95[address] Oct, [facility] [place] [facility] [address] [id number] [place] [address] Oct, [facility] [place] [facility] [address] [id number] [place] [address] Oct, [facility] [place] [facility] [address] [id number] [place] [address] Oct, [facility] [place] [facility] [address] [id number] [place] [address] 16 Sep, 2011 [facility] [place] [facility] [address] [id number] [place] [address] 18 Aug, 2011 [facility] [place] [facility] [address] [id number] [place] [address] 18 Aug, 2011 [facility] [place] [facility] [address] [id number] [place] [address]- [address] 17 Aug, 2011 [facility] [place] [facility] [address] [id number] [place] [address] 16 Aug, 2011 [facility] [place] [facility] [address] [id number] [place] [address] 13 Aug, 2011 [facility] [place] [facility] [address] [id number] [place] [address] Aug, [facility] [place] [facility] [address] [id number] [place] [address] Aug, [facility] [place] [facility] [address] [id number] [place] [address] Aug, [facility] [place] [facility] [address] [id number] [place] [address]- [address] 05 Aug, 2011 [facility] [place] [facility] [address] [id number] [place] [address] Jul, [facility] [place] [facility] [address] [id number] [place] [address] Jul, [facility] [place] [facility] [address] [id number] [place] [address] Jul, [facility] [place] [facility] [address] [id number] [place] [address] Jul, [facility] [place] [facility] [address] [id number] [place] 08 Jul, 2011 [facility] [place] [facility] [address] [id number] [place] [address] 15 Jun, 2011 [facility] [place] [facility] [address] [id number] [place] [address] 14 Jun, 2011 [facility] [address] [id number] [place] [address] 08 Jun, 2011 [facility] [place] [facility] [address] [id number] [place] [address] 08 Jun, 2011 [facility] [address] [id number] [place] [address] May, [facility] [address] [id number] [place] [address] 13 May, 2011 [facility] [place] [facility] [address] [id number] [place] [address] May, [facility] [address] [id number] [place] [address] May, [facility] [address] [id number] [place] [address] May, [facility] [address] [id number] [place] [address] May, [facility] [address] [id number] [place] [address] May, [facility] [address] [id number] [place] [address] 21 Apr, 2011 [facility] [address] [id number] [place] [address] 13 Apr, 2011 [facility] [place] [facility] [address] [id number] [place] [address] 13 Apr, 2011 [facility] [place] [facility] [address] [id number] [place] [address] 13 Apr, 2011 [facility] [place] [facility] [address] [id number] [place] [address] 13 Apr, 2011 [facility] [place] [facility] [address] [id number] [place] [address] Apr, [facility] [place] [facility] [address] [id number] [place] [address] Apr, [facility] [place] [facility] [address] [id number] [place] [address] Apr, [facility] [place] [facility] [address] [facility] [place] [id number] [place] [address] Apr, [facility] [place] [facility] [address] [id number] [place] [address] Apr, [facility] [place] [facility] [address] [id number] [place] [address] Mar, [facility] [place] [facility] [address] [id number] [place] [address] Mar, [facility] [place] [facility] [address] [id number] [place] [address] Feb, [facility] [place] [facility] [address] [id number], [place] [address] Jun, [facility] [place] [facility] [address] [id number] [place] [address] Apr, [facility] [place] [facility] [address] [id number] [place] [address] Feb, [facility] [place] [facility] [address] [id number], [place] [address] Feb, [facility] [place] [facility] [address] [id number], [place] [address] Feb, [facility] [place] [facility] [address] [id number] [place] [address] Apr, [facility] [place] [facility] [address] [facility] [place] [id number], [place] [address] Apr, [facility] [place] [facility] [address] [facility] [place] [id number], [place] [address] Mar, [facility] [place] [facility] [address] [facility] [place] [id number] [place] [address] Mar, [facility] [address] [facility] [place] [id number], [place] [address] Mar, [facility] [address] [id number], [place] [address] Feb, [facility] [address] [facility] [place] [id number], [place] [address] Feb, [facility] [address] [facility] [place] [id number], [place] [address] Feb, [facility] [address] [facility] [place] [id number], [place] [address] Jan, IMMUNIZATIONS Vaccine Route Administration Date Status TESTOSTERONE (PT'S OWN) IM Intramuscular July 30, 2017 Administered SOCIAL HISTORY Never Assessed REASON FOR VISIT Injection-Urban PATIÑO PLAN OF CARE Activity Details Follow Up 2 Weeks Reason: VITAL SIGNS MEDICATIONS Unknown Medications RESULTS No Results PROCEDURES Procedure Date Ordered Result Body Site TESTOSTERONE (PT'S OWN) July 30, 2017 THER/PROPH/DIAG INJ, SC/IM July 30, 2017 INSTRUCTIONS MEDICATIONS ADMINISTERED No Known [...]
--- OUTSIDE RECORDS SUMMARY | 2018-04-28 05:34 | XMS REPORT ---
Author Author MARLEY MCGRATH Organization [facility] Address [address] [place] [address] Care Team Providers Care Technical Specialist Cytogenetics Name Role Phone MARLEY MCGRATH Unavailable PROBLEMS Type Condition ICD9-CM Code FLZ62-LF Code Onset Dates Condition Status SNOMED Code Problem Hammertoe of right foot M20.41 Active 698922788 Problem Moderate episode of recurrent major depressive disorder F33.1 Active 492718743 Problem Hypertriglyceridemia E78.1 Active 178765368 Problem Other chronic pain G89.29 Active 75906911 Problem Memory loss R41.3 Active 060044320 Problem 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.01 Active 9382278 Problem Chronic fatigue R53.82 Active 97216125 Problem Controlled type 2 diabetes mellitus without complication, without long -term current use of insulin E11.9 Active 101869817 Problem Chronic major depressive disorder, recurrent episode F33.9 Active 36941974 Problem Knee pain, right M25.561 Active 34066487 Problem Diabetes type 2, controlled E11.9 Active 64845491 Problem Type 2 diabetes mellitus without complications E11.9 Active 841122952 Problem Hypogonadism in male E29.1 Active 85038979 Problem FDC (current) use of anticoagulants Z79.01 Active 609435417 ALLERGIES No Information ENCOUNTERS Encounter Location Date Diagnosis [place] [id number] [place] [address] 71349- 8395 Nov, Type 2 diabetes mellitus without complications E11.9 and History of Coumadin therapy Z92.29 [place] [address] [place] [address] 95336- 2107 Nov, Medicare welcome exam Z00.00 [place] [address] [place] [id number] [place] [address] 07905- 1764 Nov, Type 2 diabetes mellitus without complications E11.9 ; History of Coumadin therapy Z92.29 and Hypogonadism in male E29.1 [facility] [address] [address] 96[address] Nov, [facility] [address] [address] 0896 Oct, [facility] [address] [address] 4377 Oct, Diabetes type 2, controlled E11.9 [facility] [address] [address] 9158 Oct, Medicare welcome exam Z00.00 [facility] [address] [address] 0[address] Oct, Hypogonadism in male E29.1 [facility] [address] [address] Oct, [facility] [address] [address] September, Hypogonadism in male E29.1 [facility] [address] [address] 55[address] September, Medicare welcome exam Z00.00 [facility] [address] [address] 6[address] September, Hypogonadism in male E29.1 [facility] [address] [address]- 0290 Aug, Other chronic pain G89.29 ; Memory loss R41.3 ; Controlled type 2 diabetes mellitus without complication, without long-term current use of insulin E11.9 and Chronic major depressive disorder, recurrent episode F33.9 [facility] [address] [address] 2093 Aug, Medicare welcome exam Z00.00 [facility] [address] [address] Aug, [facility] [address] [address] 07 Aug, 2017 Hypogonadism in male E29.1 [facility] [address] [place] [id number] [place] [address] 63451- 8361 Jul, [facility] [address] [place] [id number] [place] [address] 87638- 5597 Jul, Hypogonadism in male E29.1 [facility] [address] [place] [id number] [place] [address] 09321- 7458 Jul, [facility] [address] [place] [id number] [place] [address] 74519 -0533 Jul, Hypogonadism in male E29.1 [facility] [address] [place] [id number] [place] [address] 51142- 5059 Jul, Medicare welcome exam Z00.00 [facility] [address] [place] [id number] [place] [address] 56606- 8481 Jun, Medicare welcome exam Z00.00 [facility] [address] [place] [address] 85534 -4894 Jun, Fever R50.9 and Influenza B J10.1 [facility] [address] [place] [address] [address]- 9338 Jun, Hypogonadism in male E29.1 [facility] [address] [place] [id number] [place] [address] 59364- 6661 Jun, Diabetes type 2, controlled E11.9 [facility] [address] [place] [address] 62424- 4526 May, Hypogonadism in male E29.1 [facility] [address] [place] [id number] [place] [address] 62377- 4421 May, director 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 (current) use of anticoagulants Z79.01 [facility] [address] [place] [id number] [place] [address] 19556- 7893 Apr, Hypogonadism in male E29.1 [facility] [address] 2[address] Apr, [facility] [address] [address]- 6966 Apr, Medicare welcome exam Z00.00 and FDC (current) use of anticoagulants Z79.01 [facility] [address] [address]- 2253 Apr, Hypogonadism in male E29.1 [facility] [address] [address]- 7438 Mar, Diabetes type 2, controlled E11.9 [place] [address] [place] [address] [address]- 0896 Mar, Hypogonadism in male E29.1 [place] [address] [place] [address] [address]- 2259 Mar, Hypogonadism in male E29.1 [place] [address] [address]12 Feb, Hypogonadism in male E29.1 [facility] [address] [address]66 Feb, Malaise R53.81 [place] [address] [address]- 8668 Feb, [facility] [address] [address]- 9589 Feb, Diabetes type 2, controlled E11.9 [facility] [address] 6336 Feb, Chronic fatigue R53.82 ; Malaise R53.81 and Moderate episode of recurrent major depressive disorder F33.1 [facility] [address] [address]- 3587 Jan, Diabetes type 2, controlled E11.9 [facility] [address] [address]- 1693 Jan, 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.01 and director 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 (current) use of anticoagulants Z79.01 [facility] [address] [place] [address] 66081- 2070 Dec, Diabetes type 2, controlled E11.9 and Hypertriglyceridemia E78.1 [place] [address] [place] [id number] [place] [address] 46333- 7681 Dec, Diabetes type 2, controlled E11.9 [facility] [address] [place] [id number] [place] [address] 66493- 4206 Dec, High risk medication use Z79.899 and FDC (current) use of anticoagulants Z79.01 [place] [address] [place] [id number] [place] [address] 18266- 7906 Dec, High risk medication use Z79.899 [place] [address] [place] [id number] [place] [address] 24681- 9095 Nov, Diabetes type 2, controlled E11.9 [place] [address] [place] [id number] [place] [address] 90262- 7716 Oct, Diabetes type 2, controlled E11.9 [facility] [address] [place] [id number] [place] [address] 05095- 0045 September, Diabetes type 2, controlled E11.9 [facility] [address] [place] [id number] [place] [address] 93891- 6785 Aug, director 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 (current) use of anticoagulants Z79.01 [facility] [address] [place] [id number] [place] [address] 92446- 5664 Aug, Hematoma of arm, right, initial encounter S40.021A and director 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 (current) use of anticoagulants Z79.01 [facility] [address] [address]- 7358 Aug, [facility] [address] [place] [id number] [place] [address] 67277 -6028 18 Aug, 2016 Cellulitis of right upper extremity L03.113 [place] [address] 23935- 7510 14 Aug, 2016 Diabetes type 2, controlled E11.9 [place] [address] [place] [id number] [place] [address] 35228- 9174 07 Aug, 2016 Hammertoe of right foot M20.41 ; Hallux abducto valgus, left M20.12 and Onychomycosis B35.1 [place] [address] [place] [id number] [place] [address] 49589- 6045 Aug, director 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 (current) use of anticoagulants Z79.01 [place] [address] [place] [id number] [place] [address] 98920- 1478 Aug, FDC (current) use of anticoagulants Z79.01 [place] [address] 27765- 6461 Aug, FDC (current) use of anticoagulants Z79.01 [facility] [address] [place] [id number] [place] [address] 87683 -6320 Aug, Right shoulder pain M25.511 and Closed nondisplaced fracture of acromial end of right clavicle, initial encounter S42.034A [place] [address] [place] [id number] [place] [address] 24378- 0389 Jul, Diabetes type 2, controlled E11.9 [place] [address] [place] [id number] [place] [address] 10968- 6739 Jun, Diabetes type 2, controlled E11.9 and FDC (current) use of anticoagulants Z79.01 [place] [address] [place] [id number] [place] [address] 69052- 1613 May, [place] [address] [place] [id number] [place] [address] 73247- 1712 Apr, [place] [address] [address]- 3138 Mar, [facility] [address] [address]- 0254 Feb, [facility] [address], [place] [address]- 3637 Dec, Diabetes type 2, controlled E11.9 [facility] [address] [place] [id number] [place] [address] 68469- 1468 Dec, [facility] [address] [address]- 7291 Nov, [facility] [address] [place] [id number] [place] [address] 03955- 8134 Nov, Type 2 diabetes mellitus without complications E11.9 [facility] [address] [place] [address] 01661- 5989 Oct, Type 2 diabetes mellitus without complications E11.9 [facility] [address] [address]- 3676 Aug, [facility] [address] [place] [address] 56531- 7445 Aug, Type 2 diabetes mellitus without complications E11.9 [facility] [address] [address]- 1836 Jun, Type 2 diabetes mellitus without complications E11.9 and 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 use of antiplatelet drug Z79.02 [facility] [address] [address]- 9577 May, [facility] [address] [address]- 8516 May, Diabetes type 2, controlled E11.9 [facility] [address] [address]- 5933 Apr, Diabetes type 2, controlled E11.9 [facility] [address] [place] [address] 44015- 9185 Mar, Diabetes type 2, controlled E11.9 ; Knee pain, right M25.561 ; Other chronic pain G89.29 and Medication monitoring encounter Z51.81 [facility] [address] [place] [id number] [place] [address] 06746- 1994 Feb, Type 2 diabetes mellitus without complications E11.9 ; High risk medication use Z79.899 and Anxiety F41.9 [facility] [address] [place] [id number] [place] [address] 36862- 9673 Jan, Diabetes 250.00 [facility] [address] [place] [id number] [place] [address] 76219- 8376 Dec, Diabetes 250.00 [facility] [address] [place] [id number] [place] [address] 21697- 2546 Nov, Diabetes 250.00 [facility] [address] [place] [id number] [place] [address] 58362- 9589 Nov, [facility] [address] [place] [id number] [place] [address] 33978- 2306 Oct, Diabetes mellitus type 1 250.01 and High risk medication use V58.69 [facility] [address] [address]- 5279 Oct, [facility] [address] [address]- 0384 September, [facility] [address] [address]- 4479 Aug, [facility] [address] [place] [address] 47002- 7983 Aug, [facility] [address] [place] [id number] [place] [address] 92847- 8646 Jul, [facility] [address] [address]- 9623 Jul, [facility] [address] [place] [id number] [place] [address], [place] 0893 Jun, [facility] [place] [facility] [address] [id number] [place] [address]- 7544 Jun, [facility] [place] [facility] [address] [id number] [place] [address]- 3614 Jun, [facility] [place] [facility] [address] [id number] [place] [address]- 4320 May, [facility] [place] [facility] [address] [id number] [place] [address]- 0272 May, [facility] [place] [facility] [address] [id number] [place] [address]- 4077 Apr, [facility] [place] [facility] [address] [id number] [place] [address]- 1085 Apr, [facility] [place] [facility] [address] [id number] [place] [address]- 0482 Apr, [facility] [place] [facility] [address] [id number] [place] [address]- 3137 Apr, [facility] [place] [facility] [address] [id number] [place] [address]- 9348 Apr, [facility] [place] [facility] [address] [facility] [id number] [place] [address]- 4654 Apr, [facility] [place] [facility] [address] [id number] [place] [address]- 8618 Feb, [facility] [place] [facility] [address] [id number] [place] [address]- 6625 Feb, [facility] [place] [facility] [address] [id number] [place] [address]- 9393 Feb, [facility] [place] [facility] [address] [id number] [place] 5383 Feb, [facility] [place] [facility] [address] [id number] [place] 9877 Dec, [facility] [place] [facility] [address] [id number] [place] [address]- 5374 Dec, [facility] [place] [facility] [address] [id number] [place] [address]- 8434 Nov, [facility] [place] [facility] [address] [id number] [place] [address]- 4824 Nov, [facility] [place] [facility] [address] [id number] [place] [address]- 2483 Oct, [facility] [place] [facility] [address] [id number] [place] [address]- 7860 Oct, [facility] [place] [facility] [address] [id number] [place] [address]- 8081 Oct, [facility] [place] [facility] [address] [id number] [place] [address]- 0343 Oct, [facility] [place] [facility] [address] [id number] [place] [address]- 7770 Oct, [facility] [place] [facility] [address] [id number] [place] [address]- 2958 Oct, [facility] [place] [facility] [address] [id number] [place] [address]- 7079 September, [facility] [place] [facility] [address] [id number] [place] [address]- 3969 September, [facility] [place] [facility] [address] [id number] [place] [address]- 0157 September, [facility] [place] [facility] [address] [id number] [place] 4234 September, [facility] [place] [facility] [address] [id number] [place] [address]- 1762 September, [facility] [place] [facility] [address] [id number] [place] [address]- 3524 September, [facility] [place] [facility] [address] [id number] [place] [address]- 0131 Aug, [facility] [place] [facility] [address] [id number] [place] [address]- 7391 Aug, [facility] [place] [facility] [address] [id number] [place] [address]- 2657 Aug, [facility] [place] [facility] [address] [id number] [place] [address]- 6064 Aug, [facility] [place] [facility] [address] [id number] [place] [address]- 3478 Aug, [facility] [place] [facility] [address] [id number] [place] [address]- 4768 Aug, [facility] [place] [facility] [address] [id number] [place] [address]- 7255 Jul, [facility] [place] [facility] [address] [id number] [place] [address]- 8290 Jul, [facility] [place] [facility] [address] [id number] [place] [address]- 3405 Jul, [facility] [place] [facility] [address] [id number] [place] [address]- 5793 Jul, [facility] [place] [facility] [address] [id number] [place] [address]- 1456 May, [facility] [place] [facility] [address] [id number] [place] [address]- 2056 May, [facility] [place] [facility] [address] [id number] [place] [address]- 8351 Apr, [facility] [place] [facility] [address] [id number] [place] [address]- 2158 Apr, [facility] [place] [facility] [address] [id number] [place] [address]- 2595 Apr, [facility] [place] [facility] [address] [id number] [place] 0013 Apr, [facility] [place] [facility] [address] [id number] [place] [address] 2540 Apr, [facility] [address] [id number] [place] [address]- 9949 Apr, [facility] [place] [facility] [address] [id number] [place] [address]- 3320 Feb, [facility] [address] [id number] [place] [address]- 3356 Feb, [facility] [address] [id number] [place] [address]- 0777 Feb, [facility] [address] [id number] [place] [address]- 4785 Feb, [facility] [address] [id number] [place] [address]- 0778 Feb, [facility] [address] [id number] [place] [address]- 8308 Feb, [facility] [address] [id number] [place] [address]- 2032 Feb, [facility] [place] [facility] [address] [id number] [place] [address]- 0237 Feb, [facility] [address] [id number] [place] [address]- 6408 Jan, [facility] [place] [facility] [address] [id number] [place] [address]- 2678 Jan, [facility] [place] [facility] [address] [id number] [place] [address]- 4198 Jan, [facility] [place] [facility] [address] [id number] [place] [address]- 9850 Jan, [facility] [place] [facility] [address] [id number] [place] [address]- 2651 Dec, [facility] [place] [facility] [address] [id number] [place] [address]- 2702 Dec, [facility] [address] [id number] [place] [address]- 0818 Dec, [facility] [place] [facility] [address] [id number] [place] [address]- 5658 Nov, [facility] [place] [facility] [address] [id number] [place] [address]- 3760 Nov, [facility] [place] [facility] [address] [id number] [place] [address]- 1168 Oct, [facility] [address] [id number] [place] [address]- 3042 September, [facility] [place] [facility] [address] [id number] [place] [address]- 9479 September, [facility] [place] [facility] [address] [id number] [place] [address]- 8574 September, [facility] [place] [facility] [address] [id number] [place] [address]- 5874 Aug, [facility] [place] [facility] [address] [id number] [place] [address]- 7042 Aug, [facility] [place] [facility] [address] [id number] [place] [address]- 9590 Aug, [facility] [place] [facility] [address] [id number] [place] [address]- 5489 Jul, [facility] [place] [facility] [address] [id number] [place] [address]- 8345 Jul, [facility] [place] [facility] [address] [id number] [place] [address]- 6083 Jun, [facility] [place] [facility] [address] [id number] [place] [address]- 6212 Jun, [facility] [place] [facility] [address] [id number] [place] [address]- 5476 Jun, [facility] [place] [facility] [address] [id number] [place] [address]- 4599 06 Jun, 2012 [facility] [address] [id number] [place] [address]- 9596 May, [facility] [place] [facility] [address] [id number] [place] 3696 May, [facility] [address] [id number] [place] [address]- 6817 Apr, [facility] [place] [facility] [address] [id number] [place] [address]- 5829 Apr, [facility] [address] [id number] [place] [address]- 4785 Apr, [facility] [place] [facility] [address] [id number] [place] [address] Apr, [facility] [address] [facility] [id number] [place] [address] Apr, [facility] [address] [id number] [place] [address] Apr, [facility] [place] [facility] [address] [id number] [place] [address] Mar, [facility] [place] [facility] [address] [facility] [id number] [place] [address] Mar, [facility] [place] [facility] [address] [id number] [place] [address] Mar, [facility] [place] [facility] [address] [id number] [place] [address] Mar, [facility] [place] [facility] [address] [id number] [place] [address] Mar, [facility] [place] [facility] [address] [facility] [id number] [place] [address] Mar, [facility] [place] [facility] [address] [id number] [place] [address] Feb, [facility] [place] [facility] [address] [id number] [place] [address] Feb, [facility] [place] [facility] [address] [id number] [place] [address] Feb, [facility] [place] [facility] [address] [id number] [place] [address] Feb, [facility] [place] [facility] [address] [id number] [place] [address] Feb, [facility] [place] [facility] [address] [id number] [place] [address] Jan, [facility] [place] [facility] [address] [id number] [place] [address] Jan, [facility] [place] [facility] [address] [id number] [place] [address] Jan, [facility] [place] [facility] [address] [id number] [place] [address] Dec, [facility] [place] [facility] [address] [id number] [place] [address] Dec, [facility] [place] [facility] [address] [id number] [place] [address] Nov, [facility] [place] [facility] [address] [id number] [place] [address] Oct, [facility] [place] [facility] [address] [id number] [place] [address] Oct, [facility] [place] [facility] [address] [id number] [place] [address] Oct, [facility] [place] [facility] [address] [id number] [place] [address] Oct, [facility] [place] [facility] [address] [id number] [place] [address] Oct, [facility] [place] [facility] [address] [id number] [place] [address] 16 Sep, 2011 [facility] [place] [facility] [address] [id number] [place] [address] 18 Aug, 2011 [facility] [place] [facility] [address] [id number] [place] [address] 18 Aug, 2011 [facility] [place] [facility] [address] [id number] [place] [address] 17 Aug, 2011 [facility] [place] [facility] [address] [id number] [place] [address] 16 Aug, 2011 [facility] [place] [facility] [address] [id number] [place] [address] 13 Aug, 2011 [facility] [place] [facility] [address] [id number] [place] [address] Aug, [facility] [place] [facility] [address] [id number] [place] [address] Aug, [facility] [place] [facility] [address] [id number] [place] [address] Aug, [facility] [place] [facility] [address] [id number] [place] [address] 05 Aug, 2011 [facility] [place] [facility] [address] [id number] [place] [address] Jul, [facility] [place] [facility] [address] [id number] [place] [address] Jul, [facility] [place] [facility] [address] [id number] [place] [address] Jul, [facility] [place] [facility] [address] [id number] [place] [address] Jul, [facility] [place] [facility] [address] [id number] [place] [address] 08 Jul, 2011 [facility] [place] [facility] [address] [id number] [place] [address] 15 Jun, 2011 [facility] [place] [facility] [address] [id number] [place] [address] 14 Jun, 2011 [facility] [address] [id number] [place] [address] 08 Jun, 2011 [facility] [place] [facility] [address] [id number] [place] [address] 08 Jun, 2011 [facility] [address] [id number] [place] [address] May, [facility] [address] [id number] [place] [address] 13 May, 2011 [facility] [place] [facility] [address] [id number] [place] [address] May, [facility] [address] [id number] [place] [address] May, [facility] [address] [id number] [place] [address] May, [facility] [address] [id number] [place] [address] May, [facility] [address] [id number] [place] [address] May, [facility] [address] [id number] [place] [address] 21 Apr, 2011 [facility] [address] [id number] [place] [address] 13 Apr, 2011 [facility] [place] [facility] [address] [id number] [place] [address] 13 Apr, 2011 [facility] [place] [facility] [address] [id number] [place] [address] 13 Apr, 2011 [facility] [place] [facility] [address] [id number] [place] [address] 13 Apr, 2011 [facility] [place] [facility] [address] [id number] [place] [address] Apr, [facility] [place] [facility] [address] [id number] [place] [address] Apr, [facility] [place] [facility] [address] [id number] [place] [address] Apr, [facility] [place] [facility] [address] [facility] [id number] [place] [address] Apr, [facility] [place] [facility] [address] [id number] [place] [address] Apr, [facility] [place] [facility] [address] [id number] [place] [address] Mar, [facility] [place] [facility] [address] [id number] [place] [address] Mar, [facility] [place] [facility] [address] [id number] [place] [address] Feb, [facility] [place] [facility] [address] [id number], [place] [address] Jun, [facility] [place] [facility] [address] [id number] [place] [address] Apr, [facility] [place] [facility] [address] [id number] [place] [address] Feb, [facility] [place] [facility] [address] [id number], [place] [address] Feb, [facility] [place] [facility] [address] [id number], [place] [address] Feb, [facility] [place] [facility] [address] [id number] [place] [address] Apr, [facility] [place] [facility] [address] [facility] [id number], [place] [address] Apr, [facility] [place] [facility] [address] [facility] [id number][place] [address] Mar, [facility] [place] [facility] [address] [facility] [id number] [place] [address] Mar, [facility] [address] [facility] [id number], [place] [address] Mar, [facility] [address] [id number] [address] Feb, [facility] [address] [facility] [id number], [place] [address] Feb, [facility] [address] [id number] [address] [address] Feb, [facility] [address] [facility] [id number], [place] [address] Jan, IMMUNIZATIONS No Known Immunizations SOCIAL HISTORY [...]
--- OUTSIDE RECORDS SUMMARY | 2018-04-28 05:35 | XMS REPORT ---
Author Author MARLEY MCGRATH Organization [facility] Address [address] [place] [address] Care Team Providers Care Manager Orange Name Role Phone MARLEY MCGRATH Unavailable PROBLEMS Type Condition ICD9-CM Code TQN32-FW Code Onset Dates Condition Status SNOMED Code Problem Hammertoe of right foot M20.41 Active 333852769 Problem Moderate episode of recurrent major depressive disorder F33.1 Active 035475111 Problem Hypertriglyceridemia E78.1 Active 577141891 Problem Other chronic pain G89.29 Active 36306663 Problem Memory loss R41.3 Active 082618452 Problem 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.01 Active 0194185 Problem Chronic fatigue R53.82 Active 37760842 Problem Controlled type 2 diabetes mellitus without complication, without long -term current use of insulin E11.9 Active 088706061 Problem Chronic major depressive disorder, recurrent episode F33.9 Active 95313360 Problem Knee pain, right M25.561 Active 62564108 Problem Diabetes type 2, controlled E11.9 Active 19388387 Problem Type 2 diabetes mellitus without complications E11.9 Active 921469269 Problem Hypogonadism in male E29.1 Active 50579746 Problem retirement (current) use of anticoagulants Z79.01 Active 669546056 ALLERGIES No Information ENCOUNTERS Encounter Location Date Diagnosis [facility] [id number] [place] [address] 16023- 9223 Nov, Type 2 diabetes mellitus without complications E11.9 ; History of Coumadin therapy Z92.29 and Hypogonadism in male E29.1 [facility] [id number] [place] [address] 64055- 2549 Nov, [facility] [id number] [place] [address] 72445- 7774 Oct, [facility] [id number] [place] [address] 55328- 5084 15 Oct, 2017 Diabetes type 2, controlled E11.9 [facility] [address] [address] 8560 15 Oct, 2017 Medicare welcome exam Z00.00 [facility] [address] [address] 2118 11 Oct, 2017 Hypogonadism in male E29.1 [facility] [id number] [address] Oct, [facility] [address] [address] 2928 September, Hypogonadism in male E29.1 [facility] [id number] [place] [address] 17055- 1012 15 Sep, 2017 Medicare welcome exam Z00.00 [facility] [address] [address] 6511 September, Hypogonadism in male E29.1 [facility] [address] [address] 9002 Aug, Other chronic pain G89.29 ; Memory loss R41.3 ; Controlled type 2 diabetes mellitus without complication, without long-term current use of insulin E11.9 and Chronic major depressive disorder, recurrent episode F33.9 [facility] [address] [address] 2488 Aug, Medicare welcome exam Z00.00 [facility] [address] [address] 66[address] Aug, [facility] [address] [address] Aug, Hypogonadism in male E29.1 [facility] [address] [address] 4851 Jul, [facility] [address] [address]- 9082 Jul, Hypogonadism in male E29.1 [facility] [id number] [place] [address] 95519- 4012 Jul, [facility] [id number] [place] [address] 16697 -8746 Jul, Hypogonadism in male E29.1 [facility] [id number] [place] [address] 10396- 3522 Jul, Medicare welcome exam Z00.00 [facility] [id number] [place] [address] 62699- 3022 Jun, Medicare welcome exam Z00.00 [facility] [id number] [place] [address] 43329 -9875 Jun, Fever R50.9 and Influenza B J10.1 [facility] [address] 6[address]- 8873 Jun, Hypogonadism in male E29.1 [facility] [id number] [place] [address] 90871- 1218 Jun, Diabetes type 2, controlled E11.9 [facility] [id number] [place] [address] 73841- 5883 May, Hypogonadism in male E29.1 [facility] [id number] [place] [address] 84507- 8963 May, retirement (current) use of anticoagulants Z79.01 [facility] [id number] [place] [address] 81250- 9734 Apr, Hypogonadism in male E29.1 [facility] [id number] [place] [address] 91860- 7086 Apr, [facility] [id number] [place] [address] 57124- 4788 Apr, Medicare welcome exam Z00.00 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 [facility] [address] [address]- 0970 Apr, Hypogonadism in male E29.1 [facility] [address] [address]- 8426 Mar, Diabetes type 2, controlled E11.9 [facility] [address] [address]- 4207 Mar, Hypogonadism in male E29.1 [facility] [address] [address]- 1980 Mar, Hypogonadism in male E29.1 [facility] [id number] [place] [address] 85111- 1736 Feb, Hypogonadism in male E29.1 [facility] [id number] [place] [address] 91134- 7715 Feb, Malaise R53.81 [place] [address] [address]- 5782 Feb, [facility] [id number] [place] [address] 14123- 7702 Feb, Diabetes type 2, controlled E11.9 [facility] [address] [address]- 8204 Feb, Chronic fatigue R53.82 ; Malaise R53.81 and Moderate episode of recurrent major depressive disorder F33.1 [facility] [address] [address]- 8666 Jan, Diabetes type 2, controlled E11.9 [facility] [address] [address]- 6536 Jan, 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.01 and retirement (current) use of anticoagulants Z79.01 [facility] [address] [address]- 8632 10 Aug, 2017 Diabetes type 2, controlled E11.9 and Hypertriglyceridemia E78.1 [facility] [address] [place] [address] 81275- 6685 Dec, Diabetes type 2, controlled E11.9 [facility] [address] [place] [address] 67935- 8106 Dec, High risk medication use Z79.899 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 [facility] [id number] [place] [address] 01263- 0552 Dec, High risk medication use Z79.899 [facility] [id number] [place] [address] 58846- 8237 Nov, Diabetes type 2, controlled E11.9 [facility] [id number] [place] [address] 55087- 9374 Oct, Diabetes type 2, controlled E11.9 [facility] [id number] [place] [address] 88983- 7002 September, Diabetes type 2, controlled E11.9 [facility] [id number] [place] [address] 64806- 4724 Aug, 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 [facility] [id number] [place] [address] 92671- 4413 Aug, Hematoma of arm, right, initial encounter S40.021A 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 [facility] [address] [place] [address] 71482- 5498 Aug, [facility] [id number] [place] [address] 88711 -4658 18 Aug, 2016 Cellulitis of right upper extremity L03.113 [facility] [id number] [place] [address] 92218- 3082 14 Aug, 2016 Diabetes type 2, controlled E11.9 [facility] [id number] [place] [address] 62961- 1846 Aug, Hammertoe of right foot M20.41 ; Hallux abducto valgus, left M20.12 and Onychomycosis B35.1 [facility] [id number] [place] [address] 28733- 9542 Aug, 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 [facility] [id number] [place] [address] 12843- 7853 Aug, 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 [facility] [id number] [place] [address] 73349- 7610 Aug, retirement (current) use of anticoagulants Z79.01 [facility] [id number] [place] [address] 97135 -1053 Aug, Right shoulder pain M25.511 and Closed nondisplaced fracture of acromial end of right clavicle, initial encounter S42.034A [facility] [id number] [place] [address] 67732- 7795 Jul, Diabetes type 2, controlled E11.9 [facility] [id number] [place] [address] 18787- 9295 Jun, Diabetes type 2, controlled E11.9 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 [facility] [id number] [place] [address] 63671- 8455 May, [facility] [id number] [place] [address] 97239- 9420 Apr, [facility] [id number] [place] [address] 86391- 2674 Mar, [facility] [id number] [place] [address] 48012- 8093 Feb, [facility] [id number] [place] [address] 28250- 0380 Dec, Diabetes type 2, controlled E11.9 [facility] [address] [address]- 3193 Dec, [facility] [address] [address]- 0501 Nov, [facility] [address], [place] [address]- 1785 Nov, Type 2 diabetes mellitus without complications E11.9 [facility] [address] [address]- 2952 Oct, Type 2 diabetes mellitus without complications E11.9 [facility] [address] [address]- 3384 Aug, [facility] [address] [address]- 2117 Aug, Type 2 diabetes mellitus without complications E11.9 [facility] [id number] [place] [address] 75394- 1825 Jun, Type 2 diabetes mellitus without complications E11.9 and 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 [facility] [address] [address]- 4660 May, [facility] [address] [address]- 0745 May, Diabetes type 2, controlled E11.9 [facility] [address] [address]- 3709 Apr, Diabetes type 2, controlled E11.9 [facility] [id number] [address]- 6977 Mar, Diabetes type 2, controlled E11.9 ; Knee pain, right M25.561 ; Other chronic pain G89.29 and Medication monitoring encounter Z51.81 [facility] [address] [address]- 1548 Feb, Type 2 diabetes mellitus without complications E11.9 ; High risk medication use Z79.899 and Anxiety F41.9 [facility] [address] [address]- 2137 Jan, Diabetes 250.00 [facility] [address], [place] [address]- 7826 Dec, Diabetes 250.00 [facility] [id number] [place] [address] 64869- 6626 Nov, Diabetes 250.00 [facility] [address], [place] [address] 2546 Nov, [facility] [id number] [place] [address] 50979- 8455 Oct, Diabetes mellitus type 1 250.01 and High risk medication use V58.69 [facility] [address], [place] [address]- 1578 Oct, [facility] [address] [address]- 0956 September, [facility] [address] [address]- 8324 Aug, [facility] [address] [address]- 9151 Aug, [facility] [address] [address]- 5795 Jul, [facility] [address] [address]- 3599 Jul, [facility] [id number] 7574 Jun, [facility] [address], [place] [address]- 3396 Jun, [facility] [address] [address]- 0716 Jun, [facility] [address] [facility] [id number] [place] [address]- 3259 May, [facility] [place] [facility] [address] [id number] [place] [address]- 9745 May, [facility] [place] [facility] [address] [id number] [place] [address]- 2560 Apr, [facility] [place] [facility] [address] [id number] [place] [address]- 0350 Apr, [facility] [place] [facility] [address] [id number] [place] [address]- 1015 Apr, [facility] [place] [facility] [address] [id number] [place] [address]- 5993 Apr, [facility] [place] [facility] [address] [id number] [place] [address]- 6962 Apr, [facility] [place] [facility] [address] [id number] [place] [address]- 6155 Apr, [facility] [place] [facility] [address] [id number] [place] [address]- 2431 Feb, [facility] [place] [facility] [address] [id number] [place] [address]- 6187 Feb, [facility] [place] [facility] [address] [id number] [place] 4105 Feb, [facility] [place] [facility] [address] [id number] [place] [address]- 2280 Feb, [facility] [place] [facility] [address] [id number] [place] [address]- 8428 Dec, [facility] [place] [facility] [address] [id number] [place] [address]- 4860 Dec, [facility] [place] [facility] [address] [id number] [place] [address]- 9112 Nov, [facility] [place] [facility] [address] [id number] [place] [address]- 3107 Nov, [facility] [place] [facility] [address] [id number] [place] [address]- 5648 Oct, [facility] [place] [facility] [address] [id number] [place] [address]- 6452 Oct, [facility] [place] [facility] [address] [id number] [place] [address]- 6640 Oct, [facility] [place] [facility] [address] [id number] [place] [address]- 4107 Oct, [facility] [place] [facility] [address] [id number] [place] [address]- 2012 Oct, [facility] [place] [facility] [address] [id number] [place] [address]- 2983 Oct, [facility] [place] [facility] [address] [id number] [place] [address]- 2228 September, [facility] [place] [facility] [address] [id number] [place] [address]- 7788 September, [facility] [place] [facility] [address] [id number] [place] [address]- 0325 September, [facility] [place] [facility] [address] [id number] [place] [address]- 6774 September, [facility] [place] [facility] [address] [id number] [place] [address]- 2476 September, [facility] [place] [facility] [address] [id number] [place] [address]- 9214 September, [facility] [place] [facility] [address] [id number] [place] [address]- 4855 Aug, [facility] [place] [facility] [address] [id number] [place] [address]- 6982 Aug, [facility] [place] [facility] [address] [id number] [place] [address]- 7672 Aug, [facility] [place] [facility] [address] [id number] [place] [address]- 3719 Aug, [facility] [place] [facility] [address] [id number] [place] [address]- 0060 Aug, [facility] [place] [facility] [address] [id number] [place] [address]- 4703 Aug, [facility] [place] [facility] [address] [id number] [place] [address]- 5416 Jul, [facility] [place] [facility] [address] [id number] [place] [address]- 7895 Jul, [facility] [place] [facility] [address] [id number] [place] [address]- 8372 Jul, [facility] [place] [facility] [address] [id number] [place] [address]- 8915 Jul, [facility] [place] [facility] [address] [id number] [place] [address]- 4160 May, [facility] [place] [facility] [address] [id number] [place] [address]- 8692 May, [facility] [place] [facility] [address] [id number] [place] [address]- 9558 Apr, [facility] [place] [facility] [address] [facility] [id number] [place] [address]- 0190 Apr, [facility] [place] [facility] [address] [id number] [place] [address]- 6327 Apr, [facility] [place] [facility] [address] [id number] [place] [address]- 6744 Apr, [facility] [place] [facility] [address] [id number] [place] [address]- 0496 Apr, [facility] [place] [facility] [address] [facility] [id number] [place] [address]- 8832 Apr, [facility] [place] [facility] [address] [facility] [id number] [place] [address]- 4491 Feb, [facility] [place] [facility] [address] [id number] [place] [address]- 7054 Feb, [facility] [place] [facility] [address] [id number] [place] 3407 Feb, [facility] [place] [facility] [address] [id number] [place] [address]- 1556 Feb, [facility] [place] [facility] [address] [id number] [place] [address]- 1004 Feb, [facility] [place] [facility] [address] [id number] [place] [address]- 1493 Feb, [facility] [place] [facility] [address] [id number] [place] [address]- 4536 Feb, [facility] [place] [facility] [address] [id number] [place] [address]- 2926 Feb, [facility] [place] [facility] [address] [id number] [place] [address]- 5560 Jan, [facility] [place] [facility] [address] [id number] [place] [address]- 5800 Jan, [facility] [place] [facility] [address] [id number] [place] [address]- 1861 Jan, [facility] [place] [facility] [address] [id number] [place] [address]- 6591 Jan, [facility] [place] [facility] [address] [id number] [place] [address]- 7145 Dec, [facility] [place] [facility] [address] [id number] [place] [address]- 9678 Dec, [facility] [place] [facility] [address] [id number] [place] 7826 Dec, [facility] [place] [facility] [address] [id number] [place] [address]- 3613 Nov, [facility] [place] [facility] [address] [id number] [place] [address]- 7770 Nov, [facility] [address] [id number] [place] [address]- 3064 Oct, [facility] [address] [id number] [place] [address]- 0267 September, [facility] [address] [id number] [place] [address]- 0425 September, [facility] [place] [facility] [address] [id number] [place] [address]- 5739 September, [facility] [address] [id number] [place] [address]- 9915 Aug, [facility] [place] [facility] [address] [id number] [place] [address]- 7822 16 Aug, 2012 [facility] [address] [id number] [place] [address]- 2264 Aug, [facility] [place] [facility] [address] [id number] [place] [address]- 2556 Jul, [facility] [address] [id number] [place] [address]- 7266 Jul, [facility] [place] [facility] [address] [id number] [place] [address]- 8234 Jun, [facility] [place] [facility] [address] [id number] [place] [address]- 9415 Jun, [facility] [place] [facility] [address] [id number] [place] [address]- 3670 Jun, [facility] [place] [facility] [address] [id number] [place] [address]- 4053 Jun, [facility] [place] [facility] [address] [id number] [place] [address] May, [facility] [place] [facility] [address] [id number] [place] [address] May, [facility] [place] [facility] [address] [id number] [place] [address] Apr, [facility] [place] [facility] [address] [id number] [place] [address] Apr, [facility] [place] [facility] [address] [id number] [place] [address] Apr, [facility] [place] [facility] [address] [id number] [place] [address] Apr, [facility] [place] [facility] [address] [id number] [place] [address] Apr, [facility] [place] [facility] [address] [id number] [place] [address]- [address] Apr, [facility] [place] [facility] [address] [id number] [place] [address] Mar, [facility] [place] [facility] [address] [id number] [place] [address]- [address] Mar, [facility] [place] [facility] [address] [id number] [place] [address] Mar, [facility] [place] [facility] [address] [id number] [place] [address] Mar, [facility] [place] [facility] [address] [facility] [id number] [place] [address] Mar, [facility] [place] [facility] [address] [id number] [place] [address] Mar, [facility] [place] [facility] [address] [id number] [place] [address] Feb, [facility] [place] [facility] [address] [id number] [place] [address]- [address] Feb, [facility] [place] [facility] [address] [id number] [place] [address] Feb, [facility] [place] [facility] [address] [id number] [place] [address] Feb, [facility] [place] [facility] [address] [id number] [place] [address] Feb, [facility] [place] [facility] [address] [id number] [place] [address] Jan, [facility] [place] [facility] [address] [id number] [place] [address] Jan, [facility] [place] [facility] [address] [id number] [place] [address] Jan, [facility] [place] [facility] [address] [id number] [place] [address]- [address] Dec, [facility] [place] [facility] [address] [id number] [place] [address] Dec, [facility] [place] [facility] [address] [id number] [place] [address] Nov, [facility] [place] [facility] [address] [id number] [place] [address] Oct, [facility] [place] [facility] [address] [id number] [place] [address] Oct, [facility] [place] [facility] [address] [id number] [place] [address] Oct, [facility] [place] [facility] [address] [id number] [place] [address]- [address] Oct, [facility] [place] [facility] [address] [id number] [address] Oct, [facility] [place] [facility] [address] [id number] [place] [address]- [address] September, [facility] [place] [facility] [address] [id number] [place] [address]- [address] Aug, [facility] [place] [facility] [address] [id number] [place] [address] Aug, [facility] [place] [facility] [address] [id number] [place] [address] 17 Aug, 2011 [facility] [place] [facility] [address] [id number] [place] [address]- [address] 16 Aug, 2011 [facility] [place] [facility] [address] [id number] [place] [address]- [address] 13 Aug, 2011 [facility] [place] [facility] [address] [id number] [place] [address]- [address] 11 Aug, 2011 [facility] [place] [facility] [address] [id number] [place] [address]- [address] 11 Aug, 2011 [facility] [place] [facility] [address] [id number] [place] [address]- [address] 05 Aug, 2011 [facility] [place] [facility] [address] [id number] [place] [address]- [address] 05 Aug, 2011 [facility] [place] [facility] [address] [id number] [place] [address]- [address] 20 Jul, 2011 [facility] [place] [facility] [address] [id number] [place] [address]- [address] 20 Jul, 2011 [facility] [place] [facility] [address] [id number] [place] [address]- [address] 20 Jul, 2011 [facility] [place] [facility] [address] [facility] [id number] [place] [address] 17 Jul, 2011 [facility] [place] [facility] [address] [id number] [place] [address] 08 Jul, 2011 [facility] [place] [facility] [address] [id number] [place] [address] 15 Jun, 2011 [facility] [place] [facility] [address] [id number] [place] [address] 14 Jun, 2011 [facility] [place] [facility] [address] [id number] [place] [address] 08 Jun, 2011 [facility] [place] [facility] [address] [id number] [place] [address] 08 Jun, 2011 [facility] [place] [facility] [address] [id number] [place] [address] May, [facility] [address] [id number] [place] [address] May, [facility] [address] [id number] [place] [address] May, [facility] [address] [id number] [place] [address] May, [facility] [address] [id number] [place] [address] May, [facility] [address] [id number] [place] [address] May, [facility] [address] [id number] [place] [address] May, [facility] [address] [id number] [place] [address] Apr, [facility] [address] [id number] [place] [address] Apr, [facility] [address] [id number] [place] [address] Apr, [facility] [address] [id number] [place] [address] 13 Apr, 2011 [facility] [address] [id number] [place] [address] Apr, [facility] [place] [facility] [address] [id number] [place] [address] Apr, [facility] [place] [facility] [address] [id number] [place] [address] Apr, [facility] [place] [facility] [address] [id number] [place] [address] 12 Apr, 2011 [facility] [place] [facility] [address] [id number], [place] [address] Apr, [facility] [place] [facility] [address] [id number] [place] [address] Apr, [facility] [place] [facility] [address] [id number] [place] [address] Mar, [facility] [place] [facility] [address] [facility] [id number] [place] [address] Mar, [facility] [place] [facility] [address] [id number] [place] [address] Feb, [facility] [place] [facility] [address] [id number] [place] [address] Jun, [facility] [place] [facility] [address] [facility] [id number] [place] [address] Apr, [facility] [place] [facility] [address] [facility] [id number] [place] [address] Feb, [facility] [place] [facility] [address] [facility] [id number] [place] [address] Feb, [facility] [place] [facility] [address] [facility] [id number] [place] [address] Feb, [facility] [place] [facility] [address] [facility] [id number] [place] [address] Apr, [facility] [place] [facility] [address] [facility] [id number] [address] Apr, [facility] [place] [facility] [address] [facility] [id number], [place] [address] Mar, [facility] [place] [facility] [address] [id number] [place] [address] Mar, [facility] [place] [facility] [address] [facility] [id number] [place] [address] Mar, [facility] [place] [facility] [address] [facility] [id number] [place] [address] Feb, [facility] [place] [facility] [address] [facility] [id number] [place] [address] Feb, [facility] [address] [facility] [id number] [place] [address] Feb, [facility] [address] [facility] [id number] [place] [id number] Jan, IMMUNIZATIONS Vaccine Route Administration Date Status TESTOSTERONE (PT'S OWN) IM Intramuscular July 13, 2017 Administered SOCIAL HISTORY Never Assessed REASON FOR VISIT Testosterone injection JStrasserRN PLAN OF CARE VITAL SIGNS MEDICATIONS No Known Medications RESULTS No Results PROCEDURES Procedure Date Ordered Result Body Site TESTOSTERONE (PT'S OWN) July 13, 2017 THER/PROPH/DIAG INJ, SC/IM July 13, 2017 INSTRUCTIONS MEDICATIONS ADMINISTERED No Known Medications [...]
--- OUTSIDE RECORDS SUMMARY | 2018-04-28 05:35 | XMS REPORT ---
Author Author MARLEY MCGRATH Organization [employer] Address Unknown Phone Unavailable Care Team Providers Care Live In Companion Name Role Phone MARLEY MCGRATH CP Unavailable Allergies No Known Allergies Problems Problem Type Condition Code Onset Dates Condition Status Problem Diabetes type 2, controlled E11.9 Active Problem Knee pain, right M25.561 Active Problem Type 2 diabetes mellitus without complications E11.9 Active Medications Medication Code System Code Instructions Start Date End Date Status Dosage Joice [facility] [address]-04 5-325 MG every 6 hrs July 26, 2014 1 tablet Clonazepam [facility] [address]-84 1 MG Orally 3 times a day Jun 29, 2014 1 tablet Results No Known Results Summary Purpose [employer] Submission
--- OUTSIDE RECORDS SUMMARY | 2018-04-28 05:35 | XMS REPORT ---
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 Name Role Phone MARLEY MCGRATH Unavailable PROBLEMS Type Condition ICD9-CM Code XHE69-IV Code Onset Dates Condition Status SNOMED Code Problem Hammertoe of right foot M20.41 Active 715428473 Problem Moderate episode of recurrent major depressive disorder F33.1 Active 303032208 Problem Hypertriglyceridemia E78.1 Active 019284331 Problem Other chronic pain G89.29 Active 11958074 Problem Memory loss R41.3 Active 828417805 Problem 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.01 Active 8843941 Problem Chronic fatigue R53.82 Active 19409129 Problem Controlled type 2 diabetes mellitus without complication, without long -term current use of insulin E11.9 Active 548434532 Problem Chronic major depressive disorder, recurrent episode F33.9 Active 84882986 Problem Knee pain, right M25.561 Active 12801841 Problem Diabetes type 2, controlled E11.9 Active 38338765 Problem Type 2 diabetes mellitus without complications E11.9 Active 049659571 Problem Hypogonadism in male E29.1 Active 12885777 Problem FCI (current) use of anticoagulants Z79.01 Active 068974851 ALLERGIES No Information ENCOUNTERS Encounter Location Date Diagnosis [facility] [id number] [place] [address] 44141- 3161 Nov, Type 2 diabetes mellitus without complications E11.9 ; History of Coumadin therapy Z92.29 and Hypogonadism in male E29.1 [facility] [id number] [place] [address] 95954- 9553 Nov, [facility] [id number] [place] [address] 93143- 6200 Oct, [facility] [id number] [place] [address] 84186- 1191 15 Oct, 2017 Diabetes type 2, controlled E11.9 [facility] [address] [address] 15 Oct, 2017 Medicare welcome exam Z00.00 [facility] [address], [place] [address] 6[address] 11 Oct, 2017 Hypogonadism in male E29.1 [facility] [id number] [address] Oct, [facility] [address] [address] September, Hypogonadism in male E29.1 [facility] [id number] [place] [address] 78032- 5562 15 Sep, 2017 Medicare welcome exam Z00.00 [facility] [address] [address] 9990 September, Hypogonadism in male E29.1 [facility] [address] [address] 6693 Aug, Other chronic pain G89.29 ; Memory loss R41.3 ; Controlled type 2 diabetes mellitus without complication, without long-term current use of insulin E11.9 and Chronic major depressive disorder, recurrent episode F33.9 [facility] [address] [address] 150[address] Aug, Medicare welcome exam Z00.00 [facility] [address] [address] 97[address] Aug, [facility] [address] [address] Aug, Hypogonadism in male E29.1 [facility] [address] [address] 6[address] Jul, [facility] [address] [address] 5944 Jul, Hypogonadism in male E29.1 [facility] [id number] [place] [address] 42895- 6081 Jul, [facility] [id number] [place] [address] 96034 -7850 Jul, Hypogonadism in male E29.1 [facility] [id number] [place] [address] 34704- 2222 Jul, Medicare welcome exam Z00.00 [facility] [id number] [place] [address] 66105- 0875 Jun, Medicare welcome exam Z00.00 [facility] [id number] [place] [address] 16538 -1516 Jun, Fever R50.9 and Influenza B J10.1 [facility] [address] [address]- [address] Jun, Hypogonadism in male E29.1 [facility] [id number] [place] [address] 20611- 9796 Jun, Diabetes type 2, controlled E11.9 [facility] [id number] [place] [address] 54003- 4367 May, Hypogonadism in male E29.1 [facility] [id number] [place] [address] 36848- 6690 May, FCI (current) use of anticoagulants Z79.01 [facility] [id number] [place] [address] 52974- 9566 Apr, Hypogonadism in male E29.1 [facility] [id number] [place] [address] 74229- 4373 Apr, [facility] [id number] [place] [address] 00791- 5993 Apr, Medicare welcome exam Z00.00 and 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 [facility] [address], [place] [address]- 4793 Apr, Hypogonadism in male E29.1 [facility] [address] [address]- 6246 Mar, Diabetes type 2, controlled E11.9 [facility] [address] [address]- 0964 Mar, Hypogonadism in male E29.1 [facility] [address] [address]- 3068 Mar, Hypogonadism in male E29.1 [facility] [id number] [place] [address] 98604- 9616 Feb, Hypogonadism in male E29.1 [facility] [id number] [place] [address] 17675- 7314 Feb, Malaise R53.81 [place] [address] [address]- 5025 Feb, [facility] [id number] [place] [address] 79722- 0036 Feb, Diabetes type 2, controlled E11.9 [facility] [address] [address]- 2497 Feb, Chronic fatigue R53.82 ; Malaise R53.81 and Moderate episode of recurrent major depressive disorder F33.1 [facility] [address], [place] [address]- 4210 Jan, Diabetes type 2, controlled E11.9 [facility] [address], [place] [address]- 7406 Jan, 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.01 and FCI (current) use of anticoagulants Z79.01 [facility] [address] [address]- 2254 10 Aug, 2017 Diabetes type 2, controlled E11.9 and Hypertriglyceridemia E78.1 [facility] [id number] [place] [address] 52603- 0179 Dec, Diabetes type 2, controlled E11.9 [facility] [address] [place] [address] 27445- 6884 Dec, High risk medication use Z79.899 and 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 [facility] [id number] [place] [address] 44048- 1266 Dec, High risk medication use Z79.899 [facility] [id number] [place] [address] 45904- 1096 Nov, Diabetes type 2, controlled E11.9 [facility] [id number] [place] [address] 47168- 3653 Oct, Diabetes type 2, controlled E11.9 [facility] [id number] [place] [address] 31418- 1158 September, Diabetes type 2, controlled E11.9 [facility] [id number] [place] [address] 61412- 9537 Aug, 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 [facility] [id number] [place] [address] 01821- 2550 Aug, Hematoma of arm, right, initial encounter S40.021A and 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 [facility] [id number] [place] [address] 95956- 0210 Aug, [facility] [id number] [place] [address] 98549 -5923 18 Aug, 2016 Cellulitis of right upper extremity L03.113 [facility] [id number] [place] [address] 86430- 7330 14 Aug, 2016 Diabetes type 2, controlled E11.9 [facility] [id number] [place] [address] 05743- 5880 Aug, Hammertoe of right foot M20.41 ; Hallux abducto valgus, left M20.12 and Onychomycosis B35.1 [facility] [id number] [place] [address] 02960- 3257 Aug, 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 [facility] [id number] [place] [address] 91735- 8324 Aug, 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 [facility] [id number] [place] [address] 67527- 2252 Aug, FCI (current) use of anticoagulants Z79.01 [facility] [id number] [place] [address] 87763 -6005 Aug, Right shoulder pain M25.511 and Closed nondisplaced fracture of acromial end of right clavicle, initial encounter S42.034A [place] [facility] [id number] [place] [address] 28877- 3806 Jul, Diabetes type 2, controlled E11.9 [facility] [facility] [id number] [place] [address] 88420- 5257 Jun, Diabetes type 2, controlled E11.9 and 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 [facility] [id number] [place] [address] 83886- 4917 May, [place] [facility] [id number] [place] [address] 88593- 9185 Apr, [facility] [facility] [id number] [place] [address] 96621- 6852 Mar, [facility] [facility] [id number] [place] [address] 42185- 1707 Feb, [facility] [id number] [place] [address] 46631- 9913 Dec, Diabetes type 2, controlled E11.9 [facility] [address] [address]- 8332 Dec, [facility] [address], [place] [address]- 2113 Nov, [facility] [address], [place] [address]- 5794 Nov, Type 2 diabetes mellitus without complications E11.9 [facility] [address] [address]- 0243 Oct, Type 2 diabetes mellitus without complications E11.9 [facility] [address], [place] [address]- 4537 Aug, [facility] [address], [place] [address]- 2666 Aug, Type 2 diabetes mellitus without complications E11.9 [facility] [address] [place] [address] 88543- 0639 Jun, Type 2 diabetes mellitus without complications E11.9 and 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 [facility] [address] [address]- 8813 May, [facility] [address], [place] [address]- 1854 May, Diabetes type 2, controlled E11.9 [facility] [address] [address]- 6158 Apr, Diabetes type 2, controlled E11.9 [facility] [id number] [address]- 8517 Mar, Diabetes type 2, controlled E11.9 ; Knee pain, right M25.561 ; Other chronic pain G89.29 and Medication monitoring encounter Z51.81 [facility] [address], [place] [address]- 0808 Feb, Type 2 diabetes mellitus without complications E11.9 ; High risk medication use Z79.899 and Anxiety F41.9 [facility] [address], [place] [address]- 6396 Jan, Diabetes 250.00 [facility] [address] [address]- 2216 Dec, Diabetes 250.00 [facility] [id number] [place] [address] 49212- 0466 Nov, Diabetes 250.00 [facility] [address], [place] [address] 2546 Nov, [facility] [id number] [place] [address] 69785- 8648 Oct, Diabetes mellitus type 1 250.01 and High risk medication use V58.69 [facility] [address] [address]- 4580 Oct, [facility] [address], [place] [address]- 8593 September, [facility] [address], [place] [address]- 5943 Aug, [facility] [address], [place] [address]- 0764 Aug, [facility] [address], [place] [address]- 1121 Jul, [facility] [address], [place] [address]- 1669 Jul, [facility] [id number] 9840 Jun, [facility] [address], [place] [address]- 8668 Jun, [facility] [address], [place] [address]- 3246 Jun, [facility] [address] [facility] [id number] [place] [address]- 2623 May, [facility] [place] [facility] [address] [id number] [place] [address]- 1348 May, [facility] [place] [facility] [address] [id number] [place] [address]- 6241 Apr, [facility] [place] [facility] [address] [id number] [place] [address]- 0780 Apr, [facility] [place] [facility] [address] [id number] [place] [address]- 9550 Apr, [facility] [place] [facility] [address] [id number] [place] [address]- 1185 Apr, [facility] [place] [facility] [address] [id number] [place] [address]- 7130 Apr, [facility] [place] [facility] [address] [id number] [place] [address]- 6690 Apr, [facility] [place] [facility] [address] [id number] [place] [address]- 2262 Feb, [facility] [place] [facility] [address] [id number] [place] [address]- 5959 Feb, [facility] [place] [facility] [address] [id number] [place] 3261 Feb, [facility] [place] [facility] [address] [id number] [place] [address]- 2640 Feb, [facility] [place] [facility] [address] [id number] [place] [address]- 4456 Dec, [facility] [place] [facility] [address] [id number] [place] [address]- 1892 Dec, [facility] [place] [facility] [address] [id number] [place] [address]- 3414 Nov, [facility] [place] [facility] [address] [id number] [place] [address]- 8939 Nov, [facility] [place] [facility] [address] [id number] [place] [address]- 9010 Oct, [facility] [place] [facility] [address] [id number] [place] [address]- 1711 Oct, [facility] [place] [facility] [address] [id number] [place] [address]- 8012 Oct, [facility] [place] [facility] [address] [id number] [place] [address]- 8633 Oct, [facility] [place] [facility] [address] [id number] [place] [address]- 1017 Oct, [facility] [place] [facility] [address] [id number] [place] [address]- 2335 Oct, [facility] [place] [facility] [address] [id number] [place] [address]- 7367 September, [facility] [place] [facility] [address] [id number] [place] [address]- 3916 September, [facility] [place] [facility] [address] [id number] [place] [address]- 4405 September, [facility] [place] [facility] [address] [id number] [place] [address]- 6962 September, [facility] [place] [facility] [address] [id number] [place] [address]- 5952 September, [facility] [place] [facility] [address] [id number] [place] [address]- 1850 September, [facility] [place] [facility] [address] [id number] [place] [address]- 4905 Aug, [facility] [place] [facility] [address] [id number] [place] [address]- 6190 Aug, [facility] [place] [facility] [address] [id number] [place] [address]- 7805 Aug, [facility] [place] [facility] [address] [id number] [place] [address]- 9543 Aug, [facility] [place] [facility] [address] [id number] [place] [address]- 9974 Aug, [facility] [place] [facility] [address] [id number] [place] [address]- 2938 Aug, [facility] [place] [facility] [address] [id number] [place] [address]- 4026 Jul, [facility] [place] [facility] [address] [id number] [place] [address]- 8110 Jul, [facility] [place] [facility] [address] [id number] [place] [address]- 6603 Jul, [facility] [place] [facility] [address] [id number] [place] [address]- 4615 Jul, [facility] [place] [facility] [address] [id number] [place] [address]- 5063 May, [facility] [place] [facility] [address] [id number] [place] [address]- 4913 May, [facility] [place] [facility] [address] [id number] [place] [address]- 2974 Apr, [facility] [place] [facility] [address] [facility] [id number] [place] [address]- 7973 Apr, [facility] [place] [facility] [address] [id number] [place] [address]- 5262 Apr, [facility] [place] [facility] [address] [id number] [place] [address]- 2009 Apr, [facility] [place] [facility] [address] [id number] [place] [address]- 8449 Apr, [facility] [place] [facility] [address] [facility] [id number] [place] [address]- 7147 Apr, [facility] [place] [facility] [address] [facility] [id number] [place] [address]- 5742 Feb, [facility] [place] [facility] [address] [id number] [place] [address]- 7981 Feb, [facility] [place] [facility] [address] [id number] [place] 0405 Feb, [facility] [place] [facility] [address] [id number] [place] [address]- 4507 Feb, [facility] [place] [facility] [address] [id number] [place] [address]- 6657 Feb, [facility] [place] [facility] [address] [id number] [place] [address]- 0025 Feb, [facility] [place] [facility] [address] [id number] [place] [address]- 5544 Feb, [facility] [place] [facility] [address] [id number] [place] [address]- 9350 Feb, [facility] [place] [facility] [address] [id number] [place] [address]- 6158 Jan, [facility] [place] [facility] [address] [id number] [place] [address]- 2166 Jan, [facility] [place] [facility] [address] [id number] [place] [address]- 8092 Jan, [facility] [place] [facility] [address] [id number] [place] [address]- 7930 Jan, [facility] [place] [facility] [address] [id number] [place] [address]- 8250 Dec, [facility] [place] [facility] [address] [id number] [place] [address]- 0385 Dec, [facility] [place] [facility] [address] [id number] [place] 6772 Dec, [facility] [place] [facility] [address] [id number] [place] [address]- 2684 Nov, [facility] [place] [facility] [address] [id number] [place] [address]- 8888 Nov, [facility] [address] [id number] [place] [address] Oct, [facility] [address] [id number] [place] [address] September, [facility] [address] [id number] [place] [address] September, [facility] [place] [facility] [address] [id number] [place] [address] September, [facility] [address] [id number] [place] [address] Aug, [facility] [place] [facility] [address] [id number] [place] [address] 16 Aug, 2012 [facility] [address] [id number] [place] [address] Aug, [facility] [place] [facility] [address] [id number] [place] [address] Jul, [facility] [address] [id number] [place] [address] Jul, [facility] [place] [facility] [address] [id number] [place] [address] Jun, [facility] [place] [facility] [address] [id number] [place] [address] Jun, [facility] [place] [facility] [address] [id number] [place] [address] Jun, [facility] [place] [facility] [address] [id number] [place] [address] Jun, [facility] [place] [facility] [address] [id number] [place] [address] May, [facility] [place] [facility] [address] [id number] [place] [address] May, [facility] [place] [facility] [address] [id number] [place] [address] Apr, [facility] [place] [facility] [address] [id number] [place] [address] Apr, [facility] [place] [facility] [address] [id number] [place] [address] Apr, [facility] [place] [facility] [address] [id number] [place] [address] Apr, [facility] [place] [facility] [address] [id number] [place] [address] Apr, [facility] [place] [facility] [address] [id number] [place] [address] Apr, [facility] [place] [facility] [address] [id number] [place] [address] Mar, [facility] [place] [facility] [address] [id number] [place] [address] Mar, [facility] [place] [facility] [address] [id number] [place] [address] Mar, [facility] [place] [facility] [address] [id number] [place] [address] Mar, [facility] [place] [facility] [address] [facility] [id number] [place] [address] Mar, [facility] [place] [facility] [address] [id number] [place] [address] Mar, [facility] [place] [facility] [address] [id number] [place] [address] Feb, [facility] [place] [facility] [address] [id number] [place] [address] Feb, [facility] [place] [facility] [address] [id number] [place] [address] Feb, [facility] [place] [facility] [address] [id number] [place] [address] Feb, [facility] [place] [facility] [address] [id number] [place] [address] Feb, [facility] [place] [facility] [address] [id number] [place] [address] Jan, [facility] [place] [facility] [address] [id number] [place] [address] Jan, [facility] [place] [facility] [address] [id number] [place] [address] Jan, [facility] [place] [facility] [address] [id number] [place] [address] Dec, [facility] [place] [facility] [address] [id number] [place] [address] Dec, [facility] [place] [facility] [address] [id number] [place] [address] Nov, [facility] [place] [facility] [address] [id number] [place] [address] Oct, [facility] [place] [facility] [address] [id number] [place] [address] Oct, [facility] [place] [facility] [address] [id number] [place] [address] Oct, [facility] [place] [facility] [address] [id number] [place] [address] Oct, [facility] [place] [facility] [address] [id number] [address] Oct, [facility] [place] [facility] [address] [id number] [place] [address] September, [facility] [place] [facility] [address] [id number] [place] [address] Aug, [facility] [place] [facility] [address] [id number] [place] [address] 5766 Aug, [facility] [place] [facility] [address] [id number] [place] [address] 17 Aug, 2011 [facility] [place] [facility] [address] [id number] [place] [address] 16 Aug, 2011 [facility] [place] [facility] [address] [id number] [place] [address] 13 Aug, 2011 [facility] [place] [facility] [address] [id number] [place] [address] 11 Aug, 2011 [facility] [place] [facility] [address] [id number] [place] [address] 11 Aug, 2011 [facility] [place] [facility] [address] [id number] [place] [address] 05 Aug, 2011 [facility] [place] [facility] [address] [id number] [place] [address] 05 Aug, 2011 [facility] [place] [facility] [address] [id number] [place] [address] 20 Jul, 2011 [facility] [place] [facility] [address] [id number] [place] [address] 8319 20 Jul, 2011 [facility] [place] [facility] [address] [id number] [place] [address] 6659 20 Jul, 2011 [facility] [place] [facility] [address] [facility] [id number] [place] [address] 17 Jul, 2011 [facility] [place] [facility] [address] [id number] [place] [address] 08 Jul, 2011 [facility] [place] [facility] [address] [id number] [place] [address] 7485 15 Jun, 2011 [facility] [place] [facility] [address] [id number] [place] [address] 14 Jun, 2011 [facility] [place] [facility] [address] [id number] [place] [address] 8056 08 Jun, 2011 [facility] [place] [facility] [address] [id number] [place] [address] 6587 08 Jun, 2011 [facility] [place] [facility] [address] [id number] [place] [address] May, [facility] [address] [id number] [place] [address] May, [facility] [address] [id number] [place] [address] May, [facility] [address] [id number] [place] [address] May, [facility] [address] [id number] [place] [address] 1395 May, [facility] [address] [id number] [place] [address]331 May, [facility] [address] [id number] [place] [address] May, [facility] [address] [id number] [place] [address] Apr, [facility] [address] [id number] [place] [address] Apr, [facility] [address] [id number] [place] [address] 8047 Apr, [facility] [address] [id number] [place] [address]16 13 Apr, 2011 [facility] [address] [id number] [place] [address] 39[address] Apr, [facility] [place] [facility] [address] [id number] [place] [address]851 Apr, [facility] [place] [facility] [address] [id number] [place] [address] 58[address] Apr, [facility] [place] [facility] [address] [id number] [place] [address] 12 Apr, 2011 [facility] [place] [facility] [address] [id number] [address] Apr, [facility] [place] [facility] [address] [id number] [place] [address] Apr, [facility] [place] [facility] [address] [id number] [place] [address] Mar, [facility] [place] [facility] [address] [facility] [id number] [place] [address]696 Mar, [facility] [place] [facility] [address] [id number] [place] [address] 5517 Feb, [facility] [place] [facility] [address] [id number] [place] [address] Jun, [facility] [place] [facility] [address] [facility] [id number] [place] [address] Apr, [facility] [place] [facility] [address] [facility] [id number] [place] [address] 8839 Feb, [facility] [place] [facility] [address] [facility] [id number] [place] [address] Feb, [facility] [place] [facility] [address] [facility] [id number] [place] [address] 8014 Feb, [facility] [place] [facility] [address] [facility] [id number] [place] [address] 1251 Apr, [facility] [place] [facility] [address] [facility] [id number], [place] [address] Apr, [facility] [place] [facility] [address] [facility] [id number], [place] [address] Mar, [facility] [place] [facility] [address] [id number] [place] [address] 6576 Mar, [facility] [place] [facility] [address] [facility] [id number] [place] [address] 3512 Mar, [facility] [place] [facility] [address] [facility] [id number] [place] [address]206 Feb, [facility] [place] [facility] [address] [facility] [id number] [place] [address] Feb, [facility] [address] [facility] [id number] [place] [address] Feb, [facility] [address] [facility] [id number] [place] [address] Jan, IMMUNIZATIONS No Known Immunizations SOCIAL HISTORY [...]
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
--- OUTSIDE RECORDS SUMMARY | 2018-04-28 05:36 | XMS REPORT ---
Author Author MARLEY MCGRATH Organization [employer] Address Unknown Phone Unavailable Care Team Providers Care Parks Recreation Director Name Role Phone MARLEY MCGRATH CP Unavailable Allergies No Known Allergies Problems Problem Type Condition Code Onset Dates Condition Status Problem Diabetes type 2, controlled E11.9 Active Problem Knee pain, right M25.561 Active Problem Type 2 diabetes mellitus without complications E11.9 Active Medications Medication Code System Code Instructions Start Date End Date Status Dosage Actos [facility] [address]-61 30 MG Orally Once a day Feb 25, 2015 1 tablet Results No Known Results Summary Purpose [employer] Submission
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
--- OUTSIDE RECORDS SUMMARY | 2018-04-28 05:38 | XMS REPORT ---
Author Author MARLEY MCGRATH Organization [facility] Address [address] [place] [address] Care Team Providers Care Clinical Associate Name Role Phone MARLEY MCGRATH Unavailable PROBLEMS Type Condition ICD9-CM Code HUW63-BA Code Onset Dates Condition Status SNOMED Code Problem Hammertoe of right foot M20.41 Active 687480715 Problem Moderate episode of recurrent major depressive disorder F33.1 Active 806736276 Problem Hypertriglyceridemia E78.1 Active 581197902 Problem Other chronic pain G89.29 Active 21119444 Problem Memory loss R41.3 Active 873578667 Problem 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.01 Active 0388918 Problem Chronic fatigue R53.82 Active 73277720 Problem Controlled type 2 diabetes mellitus without complication, without long -term current use of insulin E11.9 Active 076188656 Problem Chronic major depressive disorder, recurrent episode F33.9 Active 29045719 Problem Knee pain, right M25.561 Active 95687720 Problem Diabetes type 2, controlled E11.9 Active 67157199 Problem Type 2 diabetes mellitus without complications E11.9 Active 073309631 Problem Hypogonadism in male E29.1 Active 16114525 Problem FCI (current) use of anticoagulants Z79.01 Active 371078571 ALLERGIES No Information ENCOUNTERS Encounter Location Date Diagnosis [facility] [id number] [address] Oct, [facility] [id number] [address] Oct, Medicare welcome exam Z00.00 [facility] [id number] [address] 11 Oct, 2017 Hypogonadism in male E29.1 [facility] [id number] [address] 09 Oct, 2017 [facility] [address] [address] September, Hypogonadism in male E29.1 [facility] [address] [address] 15 Sep, 2017 Medicare welcome exam Z00.00 [facility] [address] [address] September, Hypogonadism in male E29.1 [facility] [address] [address] Aug, Other chronic pain G89.29 ; Memory loss R41.3 ; Controlled type 2 diabetes mellitus without complication, without long-term current use of insulin E11.9 and Chronic major depressive disorder, recurrent episode F33.9 [facility] [address] [address] Aug, Medicare welcome exam Z00.00 [facility] [address] [address] Aug, [facility] [address] [address] Aug, Hypogonadism in male E29.1 [facility] [address] [address] Jul, [facility] [address] [address] Jul, Hypogonadism in male E29.1 [facility] [address] [address] Jul, [facility] [address] [address] Jul, Hypogonadism in male E29.1 [facility] [address] [address] Jul, Medicare welcome exam Z00.00 [facility] [address] [address] 22 Jun, 2017 Medicare welcome exam Z00.00 [facility] IN [facility] [address] [address] 19 Jun, 2017 Fever R50.9 and Influenza B J10.1 [facility] [id number] [address] Jun, Hypogonadism in male E29.1 [facility] [address] [address] Jun, Diabetes type 2, controlled E11.9 [facility] [id number] [address] May, Hypogonadism in male E29.1 [facility] [id number] [address] 8726 May, 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 [facility] [address] [address] Apr, Hypogonadism in male E29.1 [facility] [address] [address] 90[address] Apr, [facility] [address] [address]- 8966 Apr, Medicare welcome exam Z00.00 and FCI (current) use of anticoagulants Z79.01 [facility] [address] [address]- 78[address] Apr, Hypogonadism in male E29.1 [facility] [address] [address] 8[address] Mar, Diabetes type 2, controlled E11.9 [facility] [address]005[address] [address] 02[address] Mar, Hypogonadism in male E29.1 [facility] [address]005[address] [address]- 6092 Mar, Hypogonadism in male E29.1 [facility] [id number] [place] [address]- 5355 Feb, Hypogonadism in male E29.1 [facility] [id number] [place] [address]70- 3724 Feb, Malaise R53.81 [facility] [id number] [place] [address] 87342- 9633 Feb, [facility] [facility] [id number] [place] [address] 90202- 2305 Feb, Diabetes type 2, controlled E11.9 [facility] [id number] [place] [address] 05522- 9114 Feb, Chronic fatigue R53.82 ; Malaise R53.81 and Moderate episode of recurrent major depressive disorder F33.1 [facility] [id number] [place] [address] 04039- 3431 Jan, Diabetes type 2, controlled E11.9 [facility] [id number] [place] [address] 477[address]- 2361 Jan, 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.01 and FCI (current) use of anticoagulants Z79.01 [facility] [address] [place] [address] 98537- 8237 Dec, Diabetes type 2, controlled E11.9 and Hypertriglyceridemia E78.1 [facility] [id number] [place] [address] 63965- 9076 Dec, Diabetes type 2, controlled E11.9 [facility] [id number] [place] [address] 6[address]- 8008 Dec, High risk medication use Z79.899 and FCI (current) use of anticoagulants Z79.01 [facility] [id number] [place] [address] 68[address]- 8934 Dec, High risk medication use Z79.899 [id number] [place] [address]- 0035 Nov, Diabetes type 2, controlled E11.9 [facility] [id number] [place] [address] 14906- 9865 Oct, Diabetes type 2, controlled E11.9 [facility] [facility] [address] [address] September, Diabetes type 2, controlled E11.9 [facility] [id number] [place] [address] 86570- 4293 Aug, FCI (current) use of anticoagulants Z79.01 [facility] [id number] [place] [address] 81931- 8838 Aug, Hematoma of arm, right, initial encounter S40.021A 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 [address] [address] [address] Aug, [facility] [address] [address] Aug, Cellulitis of right upper extremity L03.113 [facility] [id number] [place] [address] 61655- 4915 Aug, Diabetes type 2, controlled E11.9 [facility] [id number] [place] [address] 08442- 2224 Aug, Hammertoe of right foot M20.41 ; Hallux abducto valgus, left M20.12 and Onychomycosis B35.1 [facility] [facility] [address] [address]- 9469 Aug, 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 [facility] [id number] [place] [address] 40179- 8267 May, [facility] [id number] [place] [address] 51330- 4768 Apr, [facility] [id number] [place] [address] 93339- 8907 Mar, [facility] [id number] [place] [address] 19005- 4986 Feb, [facility] [address] [place] [address] 83004- 6759 Dec, Diabetes type 2, controlled E11.9 [facility] [address] [place] [address] 41900- 4207 Dec, [facility] [id number] [place] [address] 53724- 4948 Nov, [facility] [id number] [place] [address] 48285- 1163 Nov, Type 2 diabetes mellitus without complications E11.9 [facility] [id number] [place] [address] 29097- 0927 Oct, Type 2 diabetes mellitus without complications E11.9 [facility] [address] [address]- 4678 Aug, [facility] [id number] [place] [address] 546821- 8932 Aug, Type 2 diabetes mellitus without complications E11.9 [facility] [id number] [place] [address] 13652- 6280 Jun, Type 2 diabetes mellitus without complications E11.9 and 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 Z79.02 [facility] [facility] [id number] [place] [address] 13862- 3661 May, [facility] [facility] [id number] [place] [address] 10737- 8701 May, Diabetes type 2, controlled E11.9 [facility] [id number] [place] [address] 31067- 4763 Apr, Diabetes type 2, controlled E11.9 [facility] [facility] [address] [place] [address] 99064- 1255 Mar, Diabetes type 2, controlled E11.9 ; Knee pain, right M25.561 ; Other chronic pain G89.29 and Medication monitoring encounter Z51.81 [facility] [facility] [address] [place] [address] 15356- 1581 Feb, Type 2 diabetes mellitus without complications E11.9 ; High risk medication use Z79.899 and Anxiety F41.9 [facility] [facility] [address] [address]- 0133 Jan, Diabetes 250.00 [facility] [id number] [place] [address] 36465- 9805 Dec, Diabetes 250.00 [place] [address] [place] [address] 08267- 4339 Nov, Diabetes 250.00 [facility] [facility] [id number] [address]- 5926 Nov, [facility] [address] [facility] [id number] [address]- 2908 Oct, Diabetes mellitus type 1 250.01 and High risk medication use V58.69 [facility] [address] [facility] [id number] [address]- 7946 Oct, [facility] [address] [facility] [id number] [address]- 8100 September, [facility] [address] [facility] [id number] [place] [address]- 4607 Aug, [facility] [address] [facility] [id number] [address]- 3589 Aug, [facility] [address] [address]- 7248 Jul, [facility] [id number] [address]- 0485 Jul, [facility] [id number] [place] [address]- 9199 Jun, [facility] [id number] [address]- 8275 Jun, [facility] [id number] [address]- 9247 Jun, [facility] [address] [facility] [id number] [address]- 7302 May, [facility] [address] [facility] [id number] [address]- 6596 May, [facility] [id number] [address]- 8144 Apr, [facility] [id number] [address]- 8819 Apr, [facility] [address] [facility] [id number] [place] [address]- 2351 Apr, [facility] [place] [facility] [address] [id number] [place] [address]- 1503 Apr, [facility] [place] [facility] [address] [id number] [place] [address]- 1879 Apr, [facility] [place] [facility] [address] [id number] [place] [address]- 1698 Apr, [facility] [place] [facility] [address] [id number] [place] [address]- 4821 Feb, [facility] [place] [facility] [address] [id number] [place] [address]- 1423 Feb, [facility] [place] [facility] [address] [id number] [place] [address]- 4608 Feb, [facility] [place] [facility] [address] [id number] [place] [address]- 1195 Feb, [facility] [place] [facility] [address] [id number] [place] [address]- 9498 Dec, [facility] [place] [facility] [address] [id number] [place] [address]- 2637 Dec, [facility] [place] [facility] [address] [id number] [place] [address]- 8361 Nov, [facility] [place] [facility] [address] [id number] [place] [address]- 4325 Nov, [facility] [place] [facility] [address] [id number] [place] [address]- 3764 Oct, [facility] [place] [facility] [address] [id number] [place] [address]- 1883 Oct, [facility] [place] [facility] [address] [id number] [place] [address]- 0684 Oct, [facility] [place] [facility] [address] [id number] [place] [address]- 0237 Oct, [facility] [place] [facility] [address] [id number] [place] [address]- 7526 Oct, [facility] [place] [facility] [address] [id number] [place] [address]- 7164 Oct, [facility] [place] [facility] [address] [id number] [place] [address]- 2994 September, [facility] [place] [facility] [address] [id number] [place] [address]- 2929 September, [facility] [place] [facility] [address] [id number] [place] [address]- 7901 September, [facility] [place] [facility] [address] [id number] [place] [address]- 6057 September, [facility] [place] [facility] [address] [id number] [place] [address]- 3988 September, [facility] [place] [facility] [address] [id number] [place] [address]- 3087 September, [facility] [place] [facility] [address] [id number] [place] [address]- 7280 Aug, [facility] [place] [facility] [address] [id number] [place] [address]- 3684 Aug, [facility] [place] [facility] [address] [id number] [place] [address]- 8068 Aug, [facility] [place] [facility] [address] [id number] [place] [address]- 6505 Aug, [facility] [place] [facility] [address] [id number] [place] [address]- 6657 Aug, [facility] [place] [facility] [address] [id number] [place] [address]- 6476 Aug, [facility] [place] [facility] [address] [id number] [place] [address]- 7064 Jul, [facility] [place] [facility] [address] [id number] [address]- 3963 Jul, [facility] [place] [facility] [address] [id number] [place] [address]- 0026 Jul, [facility] [place] [facility] [address] [id number] [place] [address]- 5250 Jul, [facility] [place] [facility] [address] [id number] [place] [address]- 8356 May, [facility] [place] [facility] [address] [id number] [place] [address]- 0756 May, [facility] [place] [facility] [address] [id number] [place] 5785 Apr, [facility] [place] [facility] [address] [id number] [place] [address]- 4976 Apr, [facility] [place] [facility] [address] [id number] [place] [address]- 0142 Apr, [facility] [place] [facility] [address] [id number] [place] [address]- 1736 Apr, [facility] [place] [facility] [address] [id number] [place] [address]- 0320 Apr, [facility] [place] [facility] [address] [id number] [place] [address]- 1759 Apr, [facility] [place] [facility] [address] [id number] [place] [address]- 2885 Feb, [facility] [place] [facility] [address] [id number] [place] [address]- 8726 Feb, [facility] [place] [facility] [address] [id number] [place] [address]- 2267 Feb, [facility] [place] [facility] [address] [id number] [address]- 3190 Feb, [facility] [place] [facility] [address] [id number] [place] [address]- 7327 Feb, [facility] [place] [facility] [address] [id number] [place] [address]- 2546 Feb, [facility] [address] [id number] [place] [address]- 2536 Feb, [facility] [place] [facility] [address] [id number] [place] [address]- 2546 Feb, [facility] [address] [id number] [place] [address]- 1955 Jan, [facility] [place] [facility] [address] [id number] [place] [address]- 4519 Jan, [facility] [address] [id number] [place] [address]- 3855 Jan, [facility] [place] [facility] [address] [id number] [place] [address]- 9358 Jan, [facility] [place] [facility] [address] [id number] [place] [address]- 5799 Dec, [facility] [address] [id number] [place] [address]- 1520 Dec, [facility] [place] [facility] [address] [id number] [place] [address]- 2038 Dec, [facility] [place] [facility] [address] [id number] [place] [address]- 7763 Nov, [facility] [place] [facility] [address] [id number] [place] [address]- 6473 Nov, [facility] [place] [facility] [address] [id number] [place] [address]- 0772 Oct, [facility] [place] [facility] [address] [id number] [place] [address]- 3026 September, [facility] [place] [facility] [address] [id number] [place] [address]- 2546 September, [facility] [place] [facility] [address] [id number] [place] [address]- 5393 September, [facility] [address] [id number] [place] [address]- 3720 Aug, [facility] [place] [facility] [address] [id number] [place] [address]- 6107 16 Aug, 2012 [facility] [place] [facility] [address] [id number] [place] [address]- 8374 15 Aug, 2012 [facility] [place] [facility] [address] [id number] [place] [address]- 5037 Jul, [facility] [place] [facility] [address] [id number] [place] [address]- 1063 Jul, [facility] [place] [facility] [address] [id number] [place] [address]- 0488 Jun, [facility] [place] [facility] [address] [id number] [place] [address]- 3853 Jun, [facility] [place] [facility] [address] [id number] [place] [address]- 2540 Jun, [facility] [place] [facility] [address] [id number] [place] [address]- 6631 Jun, [facility] [place] [facility] [address] [id number] [place] [address]- 4018 May, [facility] [place] [facility] [address] [id number] [place] [address]- 8470 May, [facility] [place] [facility] [address] [id number] [place] [address]- 1541 Apr, [facility] [place] [facility] [address] [id number] [place] [address]- 6622 Apr, [facility] [place] [facility] [address] [id number] [place] [address]- 2927 Apr, [facility] [place] [facility] [address] [id number] [place] [address]- 6636 Apr, [facility] [place] [facility] [address] [id number] [place] [address] Apr, [facility] [address] [id number] [place] [address] Apr, [facility] [place] [facility] [address] [id number] [place] [address] Mar, [facility] [place] [facility] [address] [id number] [place] [address] Mar, [facility] [place] [facility] [address] [id number] [place] [address] Mar, [facility] [place] [facility] [address] [id number] [place] [address] Mar, [facility] [place] [facility] [address] [id number] [place] [address] Mar, [facility] [place] [facility] [address] [facility] [id number] [place] [address] Mar, [facility] [place] [facility] [address] [id number] [place] [address] Feb, [facility] [place] [facility] [address] [id number] [place] [address] Feb, [facility] [place] [facility] [address] [facility] [id number] [place] [address] Feb, [facility] [place] [facility] [address] [id number] [place] [address] 2010 Feb, [facility] [place] [facility] [address] [id number] [place] [address] Feb, [facility] [place] [facility] [address] [id number] [place] [address] 28 Jan, 2012 [facility] [place] [facility] [address] [id number] [place] [address] 06 Jan, 2012 [facility] [place] [facility] [address] [id number] [place] [address] Jan, [facility] [place] [facility] [address] [id number] [place] [address] Dec, [facility] [place] [facility] [address] [id number] [place] [address] Dec, [facility] [place] [facility] [address] [id number] [place] [address] Nov, [facility] [place] [facility] [address] [id number] [place] [address] Oct, [facility] [place] [facility] [address] [id number] [place] [address] Oct, [facility] [place] [facility] [address] [id number] [place] [address] Oct, [facility] [place] [facility] [address] [id number] [place] [address] Oct, [facility] [place] [facility] [address] [id number] [place] [address] Oct, [facility] [place] [facility] [address] [id number] [place] [address] September, [facility] [place] [facility] [address] [id number] [place] [address] 18 Aug, 2011 [facility] [place] [facility] [address] [id number] [place] [address] 18 Aug, 2011 [facility] [place] [facility] [address] [id number] [place] [address] 17 Aug, 2011 [facility] [place] [facility] [address] [id number] [place] [address] 16 Aug, 2011 [facility] [place] [facility] [address] [id number] [place] [address] 13 Aug, 2011 [facility] [place] [facility] [address] [id number] [place] [address] 11 Aug, 2011 [facility] [place] [facility] [address] [id number] [address] 11 Aug, 2011 [facility] [address] [id number] [place] [address]- [address] 05 Aug, 2011 [facility] [place] [facility] [address] [id number] [place] [address]- [address] 05 Aug, 2011 [facility] [place] [facility] [address] [facility] [id number] [place] [address] 20 Jul, 2011 [facility] [place] [facility] [address] [id number] [place] [address] 20 Jul, 2011 [facility] [address] [id number] [place] [address] 20 Jul, 2011 [facility] [place] [facility] [address] [facility] [id number] [place] [address]- [address] 17 Jul, 2011 [facility] [id number] [place] [address] 08 Jul, 2011 [facility] [place] [facility] [address] [facility] [id number] [place] [address] 15 Jun, 2011 [facility] [address] [id number] [place] [address] 14 Jun, 2011 [facility] [place] [facility] [address] [facility] [id number] [place] [id number] 08 Jun, 2011 [facility] [place] [facility] [address] [id number] [place] [address] 08 Jun, 2011 [facility] [place] [facility] [address] [facility] [id number] [address] May, [facility] [place] [facility] [address] [facility] [id number] [place] [address] 13 May, 2011 [facility] [place] [facility] [address] [facility] [id number] [place] [address] 10 May, 2011 [facility] [place] [facility] [address] [facility] [id number] [address] 08 May, 2011 [facility] [place] [facility] [address] [id number] [place] [address] May, [facility] [address] [id number] [place] [address] May, [facility] [place] [facility] [address] [id number] [place] [address] May, [facility] [address] [id number] [place] [address] Apr, [facility] [address] [id number] [place] [address] Apr, [facility] [place] [facility] [address] [id number] [place] [address] Apr, [facility] [address] [id number] [place] [address] Apr, [facility] [address] [id number] [place] [address] Apr, [facility] [address] [id number] [place] [address] Apr, [facility] [place] [facility] [address] [id number] [place] [address] Apr, [facility] [place] [facility] [address] [id number] [place] [address] Apr, [facility] [place] [facility] [address] [id number] [place] [address] 1990 Apr, [facility] [place] [facility] [address] [id number] [place] [address] Apr, [facility] [place] [facility] [address] [id number] [place] [address] Mar, [facility] [place] [facility] [address] [id number] [place] [address] 16 Mar, 2011 [facility] [place] [facility] [address] [id number] [place] [address] Feb, [facility] [address] [facility] [id number] [address] Jun, [facility] [address] [facility] [id number] [place] [address] Apr, [facility] [address]00565100[place] [address] Feb, [facility] [address] [facility] [id number] [place] [address] Feb, [facility] [address] [facility] [id number] [place] [address] Feb, [facility] [address] [id number] Apr, [facility] [id number] [address] Apr, [facility] [id number] [address] Mar, [facility] [id number] [address] Mar, [facility] [id number] [address] Mar, [facility] [address] [id number] [address] Feb, [facility] [address]00565100[place] [address] Feb, [facility] [address] [id number] [address] Feb, [facility] [address] [id number] [address] Jan, IMMUNIZATIONS No Known Immunizations SOCIAL HISTORY Never Assessed REASON FOR VISIT Testosterone injection JjoDoeN PLAN OF CARE VITAL SIGNS MEDICATIONS Unknown Medications RESULTS Name Result Date Reference Range INR (IN HOUSE) INR PREVIOUS INR CURRENT COUMADIN DOSE NEW COUMADIN DOSE Lot # Exp date PROCEDURES Procedure Date Ordered Result Body Site PROTHROMBIN TIME May 09, 2017 INSTRUCTIONS MEDICATIONS ADMINISTERED No Known Medications [...]
--- OUTSIDE RECORDS SUMMARY | 2018-04-28 05:38 | XMS REPORT ---
Author Author MARLEY MCGRATH Organization [facility] Address [address] [place] [address] Care Team Providers Care Supervisor Gate Services Name Role Phone MARLEY MCGRATH Unavailable PROBLEMS Type Condition ICD9-CM Code VQI97-MY Code Onset Dates Condition Status SNOMED Code Problem Hammertoe of right foot M20.41 Active 112497327 Problem Moderate episode of recurrent major depressive disorder F33.1 Active 791797245 Problem Hypertriglyceridemia E78.1 Active 072650805 Problem Other chronic pain G89.29 Active 63157356 Problem Memory loss R41.3 Active 199592309 Problem 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.01 Active 2686664 Problem Chronic fatigue R53.82 Active 53747827 Problem Controlled type 2 diabetes mellitus without complication, without long -term current use of insulin E11.9 Active 634397196 Problem Chronic major depressive disorder, recurrent episode F33.9 Active 97470752 Problem Knee pain, right M25.561 Active 30337591 Problem Diabetes type 2, controlled E11.9 Active 97397225 Problem Type 2 diabetes mellitus without complications E11.9 Active 549455797 Problem Hypogonadism in male E29.1 Active 80172253 Problem correction (current) use of anticoagulants Z79.01 Active [id number] ALLERGIES No Information ENCOUNTERS Encounter Location Date Diagnosis [place] [id number] [address] September, Medicare welcome exam Z00.00 [place] [id number], [place] [address] September, Hypogonadism in male E29.1 [place] [id number], [place] [address] Aug, Other chronic pain G89.29 ; Memory loss R41.3 ; Controlled type 2 diabetes mellitus without complication, without long-term current use of insulin E11.9 and Chronic major depressive disorder, recurrent episode F33.9 [facility] [address], [place] [address] 11 Aug, 2017 Medicare welcome exam Z00.00 [facility] [address], [place] [address] 09 Aug, 2017 [facility] [id number] [place] [address]40 -1210 Aug, Hypogonadism in male E29.1 [facility] [id number] [place] [address] 08175- 4806 27 Jul, 2017 [facility] [id number] [place] [address] 77434- 0514 Jul, Hypogonadism in male E29.1 [facility] [id number] [place] [address] 51285- 1796 Jul, [facility] [id number] [place] [address] 55563 -5343 Jul, Hypogonadism in male E29.1 [facility] [id number] [place] [address] 21367- 4469 Jul, Medicare welcome exam Z00.00 [facility] [id number] [place] [address] 68321- 4589 22 Jun, 2017 Medicare welcome exam Z00.00 [facility] [address], [place] [address] Jun, Fever R50.9 and Influenza B J10.1 [facility] [id number] [place] [address] 20514- 9671 13 Jun, 2017 Hypogonadism in male E29.1 [facility] [address], [place] [address] 5838 09 Jun, 2017 Diabetes type 2, controlled E11.9 [facility] [id number] [place] [address] 45702- 8925 May, Hypogonadism in male E29.1 [facility] [address], [place] [address] 1746 May, correction (current) use of anticoagulants Z79.01 [facility] [id number], [place] [address] 1041 Apr, Hypogonadism in male E29.1 [facility] [id number] [place] [address] 93128- 1683 Apr, [facility] [id number] [place] [address] 39813- 7925 Apr, Medicare welcome exam Z00.00 and 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 Z79.01 [facility] [id number] [place] [address] 68342- 6732 Apr, Hypogonadism in male E29.1 [facility] [id number] [place] [address] 14696- 1246 Mar, Diabetes type 2, controlled E11.9 [facility] [id number] [place] [address] 26935- 0917 Mar, Hypogonadism in male E29.1 [facility] [address], [place] [address] 0473 Mar, Hypogonadism in male E29.1 [facility] [id number], [place] [address] 7613 Feb, Hypogonadism in male E29.1 [facility] [address], [place] [address]- 5565 Feb, Malaise R53.81 [facility] [id number], [place] [address]- 6282 Feb, [facility] [address], [place] [address]- 9537 Feb, Diabetes type 2, controlled E11.9 [facility] [address], [place] [address]- 7818 06 Feb, 2017 Chronic fatigue R53.82 ; Malaise R53.81 and Moderate episode of recurrent major depressive disorder F33.1 [facility] [address], [place] [address]- 7569 11 Jan, 2017 Diabetes type 2, controlled E11.9 [facility] [id number] [place] [address] 78902- 1355 Jan, 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.01 and correction (current) use of anticoagulants Z79.01 [place] [id number] [place] [address] 00055- 6214 Dec, Diabetes type 2, controlled E11.9 and Hypertriglyceridemia E78.1 [place] [id number] [place] [address] 86353- 1397 Dec, Diabetes type 2, controlled E11.9 [place] [id number] [place] [address] 38155- 8984 Dec, High risk medication use Z79.899 and 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 Z79.01 [place] [id number] [place] [address] 51195- 1840 Dec, High risk medication use Z79.899 [place] [id number] [place] [address] 87240- 6013 Nov, Diabetes type 2, controlled E11.9 [facility] [address], [place] [address]- 2543 Oct, Diabetes type 2, controlled E11.9 [place] [id number] [place] [address] 01285- 7456 September, Diabetes type 2, controlled E11.9 [place] [address], [place] [address] 0413 Aug, correction (current) use of anticoagulants Z79.01 [place] [id number] [place] [address] 63843- 7476 Aug, Hematoma of arm, right, initial encounter S40.021A and 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 Z79.01 [place] [id number] [place] [address] 54678- 5566 Aug, [facility] [address] [address] Aug, Cellulitis of right upper extremity L03.113 [place] [address] 97382- 3791 14 Aug, 2016 Diabetes type 2, controlled E11.9 [place] [address] 01307- 6923 Aug, Hammertoe of right foot M20.41 ; Hallux abducto valgus, left M20.12 and Onychomycosis B35.1 [place] [address] 87697- 7425 Aug, 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 Z79.01 [place] [address] 25642- 1229 Aug, correction (current) use of anticoagulants Z79.01 [place] [address] 59495- 2616 Aug, 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 Z79.01 [facility] [place] [id number] [place] [address] 43064 -5311 Aug, Right shoulder pain M25.511 and Closed nondisplaced fracture of acromial end of right clavicle, initial encounter S42.034A [place] [address] [address]381- 9526 Jul, Diabetes type 2, controlled E11.9 [place] [address] 27357- 6951 Jun, Diabetes type 2, controlled E11.9 and correction (current) use of anticoagulants Z79.01 [facility] [address], [place] [address]- 0536 May, [facility] [address], [place] [address]- 6814 Apr, [facility] [id number], [place] [address]- 0221 Mar, [facility] [id number] [place] [address] 67114- 0215 Feb, [facility] [id number] [place] [address] 12146- 6351 Dec, Diabetes type 2, controlled E11.9 [facility] [id number], [place] [address]- 7465 Dec, [facility] [id number] [place] [address] 42033- 3947 Nov, [facility] [address], [place] [address]- 1411 Nov, Type 2 diabetes mellitus without complications E11.9 [facility] [address], [place] [address]- 5874 Oct, Type 2 diabetes mellitus without complications E11.9 [facility] [address], [place] [address]- 1444 Aug, [facility] [address], [place] [address]- 7045 Aug, Type 2 diabetes mellitus without complications E11.9 [facility] [id number] [address]- 7196 Jun, Type 2 diabetes mellitus without complications E11.9 and 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.02 [facility] [address], [place] [address]- 8880 May, [facility] [address], [place] [address]- 1205 May, Diabetes type 2, controlled E11.9 [facility] [id number] [place] [address] 51699- 3146 Apr, Diabetes type 2, controlled E11.9 [facility] [address], [place] [address]- 6247 Mar, Diabetes type 2, controlled E11.9 ; Knee pain, right M25.561 ; Other chronic pain G89.29 and Medication monitoring encounter Z51.81 [facility] [address] [place] [address] 22136- 7754 Feb, Type 2 diabetes mellitus without complications E11.9 ; High risk medication use Z79.899 and Anxiety F41.9 [facility] [address], [place] [address]- 9732 Jan, Diabetes 250.00 [facility] [id number] [place] [address] 46951- 1136 Dec, Diabetes 250.00 [facility] [id number] [place] [address] 56028- 3644 Nov, Diabetes 250.00 [facility] [address], [place] [address]- 2403 Nov, [facility] [address], [place] [address]- 5981 Oct, Diabetes mellitus type 1 250.01 and High risk medication use V58.69 [facility] [address], [place] [address]- 0320 Oct, [facility] [id number] [place] [address] 10805- 4452 September, [facility] [address], [place] [address]- 0147 Aug, [facility] [id number] [place] [address] 06280- 8229 Aug, [facility] [place] [facility] [address] [id number] [place] [address]- 0472 Jul, [facility] [place] [facility] [address] [id number] [place] [address]- 6966 Jul, [facility] [place] [facility] [address] [id number] [place] [address]- 2206 Jun, [facility] [place] [facility] [address] [id number] [place] [address]- 6641 Jun, [facility] [place] [facility] [address] [id number] [place] [address]- 5351 Jun, [facility] [place] [facility] [address] [id number] [place] [address]- 3250 May, [facility] [place] [facility] [address] [id number] [place] [address]- 7660 May, [facility] [place] [facility] [address] [id number] [place] [address]- 8435 Apr, [facility] [place] [facility] [address] [id number] [place] [address]- 5023 Apr, [facility] [place] [facility] [address] [facility] [id number] [place] [address]- 7702 Apr, [facility] [place] [facility] [address] [id number] [place] [address]- 1389 Apr, [facility] [place] [facility] [address] [id number] [place] [address]- 6778 Apr, [facility] [place] [facility] [address] [id number] [place] 3985 Apr, [facility] [place] [facility] [address] [id number] [place]75 Feb, [facility] [place] [facility] [address] [id number] [place] [address] Feb, [facility] [place] [facility] [address] [id number] [place] [address]- 0827 Feb, [facility] [place] [facility] [address] [id number] [place] [address]- 5078 Feb, [facility] [place] [facility] [address] [id number] [place] [address]- 0216 Dec, [facility] [place] [facility] [address] [id number] [place] [address]- 9995 Dec, [facility] [place] [facility] [address] [id number] [place] [address]- 8609 Nov, [facility] [place] [facility] [address] [id number] [place] [address]- 9531 Nov, [facility] [place] [facility] [address] [id number] [place] [address]- 8518 Oct, [facility] [place] [facility] [address] [id number] [place] [address]- 7213 Oct, [facility] [place] [facility] [address] [id number] [place] [address]- 2714 Oct, [facility] [place] [facility] [address] [id number] [place] [address]- 9438 Oct, [facility] [place] [facility] [address] [id number] [place] [address]- 9064 Oct, [facility] [place] [facility] [address] [id number] [place] [address]- 4603 Oct, [facility] [place] [facility] [address] [id number] [place] [address]- 7271 September, [facility] [place] [facility] [address] [id number] [place] [address]- 6391 September, [facility] [place] [facility] [address] [id number] [place] 3887 September, [facility] [place] [facility] [address] [id number] [place] [address]- 3777 September, [facility] [place] [facility] [address] [id number] [place] [address]- 8530 September, [facility] [place] [facility] [address] [id number] [place] [address]- 3806 September, [facility] [place] [facility] [address] [id number] [place] [address]- 6902 Aug, [facility] [place] [facility] [address] [id number] [place] [address]- 6690 Aug, [facility] [place] [facility] [address] [id number] [place] [address]- 9389 Aug, [facility] [place] [facility] [address] [id number] [place] [address]- 2540 Aug, [facility] [place] [facility] [address] [id number] [place] [address]- 9506 Aug, [facility] [place] [facility] [address] [id number] [place] [address]- 1204 Aug, [facility] [place] [facility] [address] [id number] [place] [address]- 1694 Jul, [facility] [place] [facility] [address] [id number] [place] [address]- 3433 Jul, [facility] [place] [facility] [address] [id number] [place] [address]- 4394 Jul, [facility] [place] [facility] [address] [id number] [address]- 4356 Jul, [facility] [place] [facility] [address] [id number] [place] [address]- 2707 May, [facility] [place] [facility] [address] [id number] [place] [address]- 3222 May, [facility] [place] [facility] [address] [id number] [place] [address]- 3789 Apr, [facility] [place] [facility] [address] [id number] [place] [address]- 8165 30 Apr, 2012 [facility] [place] [facility] [address] [id number] [place] [address]- 1580 Apr, 2012 [facility] [place] [facility] [address] [id number] [place] [address]- 0410 Apr, 2012 [facility] [place] [facility] [address] [id number] [place] [address]- 4572 Apr, 2012 [facility] [place] [facility] [address] [id number] [place] [address]- 7081 Apr, 2012 [facility] [place] [facility] [address] [id number] [place] [address]- 4459 Feb, 2012 [facility] [place] [facility] [address] [id number] [place] [address]- 0457 Feb, [facility] [place] [facility] [address] [id number] [place] [address]- 1612 Feb, [facility] [place] [facility] [address] [id number] [place] [address]- 2760 Feb, [facility] [place] [facility] [address] [id number] [place] [address]- 9619 Feb, [facility] [place] [facility] [address] [facility] [id number] [place] 7656 Feb, [facility] [place] [facility] [address] [id number] [place] [address]- 0768 Feb, [facility] [place] [facility] [address] [id number] [place] [address]- 6449 Feb, [facility] [place] [facility] [address] [id number] [place] [address]- 9472 Jan, 2012 [facility] [place] [facility] [address] [id number] [place] [address] 2547 Jan, 2012 [facility] [place] [facility] [address] [id number] [place] [address]- 9815 Jan, [facility] [place] [facility] [address] [id number] [place] [address]- 9739 Jan, [facility] [address] [id number] [place] [address]- 6594 Dec, [facility] [address] [id number] [place] [address]- 3684 Dec, [facility] [address] [id number] [place] [address]- 2861 Dec, [facility] [address] [id number] [place] [address]- 0249 Nov, [facility] [address] [id number] [place] [address]- 0833 Nov, [facility] [address] [id number] [place] [address]- 6640 Oct, [facility] [address] [id number] [place] [address]- 6487 September, [facility] [address] [id number] [place] [address]- 7068 September, [facility] [address] [id number] [place] [address]- 8782 September, [facility] [address] [id number] [place] [address]- 7574 Aug, [facility] [address] [id number] [place] [address]- 3698 16 Aug, 2012 [facility] [address] [id number] [place] [address]- 1736 15 Aug, 2012 [facility] [place] [facility] [address] [id number] [place] [address]- 2761 Jul, [facility] [address] [id number] [place] [address]- 5746 14 Jul, 2012 [facility] [address] [id number] [place] [address]- 4431 Jun, [facility] [address] [id number] [place] [address]- 1446 Jun, [facility] [address] [id number] [place] [address]- 9696 Jun, [facility] [address] [id number] [place] [address]- 5776 Jun, [facility] [address] [id number] [place] [address]- 1822 May, [facility] [address] [id number] [place] [address]- 2959 May, [facility] [address] [id number] [place] [address]- 8544 Apr, [facility] [address] [id number] [place] [address]- 6561 Apr, [facility] [address] [id number] [place] [address]- 8199 Apr, [facility] [address] [id number] [place] [address]- 8875 Apr, [facility] [address] [facility] [id number] [place] [address]- 7310 Apr, [facility] [address] [id number] [place] [address]- 7740 Apr, [facility] [place] [facility] [address] [id number], [place] [address] Mar, [facility] [place] [facility] [address] [id number] [place] [address] Mar, [facility] [place] [facility] [address] [id number] [place] [address] Mar, [facility] [address] [facility] [id number] [place] [address] Mar, [facility] [place] [facility] [address] [id number] [place] [address] Mar, [facility] [place] [facility] [address] [id number] [place] [address] Mar, [facility] [place] [facility] [address] [id number] [place] [address] Feb, [facility] [place] [facility] [address] [id number] [place] [address] Feb, [facility] [place] [facility] [address] [id number] [place] [address] Feb, [facility] [place] [facility] [address] [id number] [place] [address] Feb, [facility] [place] [facility] [address] [id number] [place] [address] Feb, [facility] [place] [facility] [address] [id number] [place] [address] Jan, [facility] [place] [facility] [address] [id number] [place] [address] Jan, [facility] [place] [facility] [address] [id number] [place] [address] Jan, [facility] [place] [facility] [address] [id number] [place] [address] Dec, [facility] [place] [facility] [address] [id number] [place] [address] Dec, [facility] [place] [facility] [address] [id number] [place] [address] Nov, [facility] [place] [facility] [address] [id number] [place] [address] Oct, [facility] [place] [facility] [address] [id number] [place] [address] Oct, [facility] [place] [facility] [address] [id number] [place] [address] Oct, [facility] [place] [facility] [address] [id number] [place] [address] Oct, [facility] [place] [facility] [address] [id number] [place] [address] Oct, [facility] [place] [facility] [address] [id number] [place] [address] September, [facility] [place] [facility] [address] [id number] [place] [address] 18 Aug, 2011 [facility] [place] [facility] [address] [id number] [place] [address] 18 Aug, 2011 [facility] [place] [facility] [address] [id number] [place] [address]- [address] 17 Aug, 2011 [facility] [place] [facility] [address] [id number] [place] [address] 16 Aug, 2011 [facility] [place] [facility] [address] [id number] [place] [address] 13 Aug, 2011 [facility] [place] [facility] [address] [id number] [place] [address] Aug, [facility] [place] [facility] [address] [id number] [place] [address] Aug, [facility] [place] [facility] [address] [id number] [place] [address] 05 Aug, 2011 [facility] [place] [facility] [address] [id number], [place] [address] 05 Aug, 2011 [facility] [place] [facility] [address] [id number] [place] [address] Jul, [facility] [place] [facility] [address] [id number] [place] [address] Jul, [facility] [place] [facility] [address] [id number] [place] [address] Jul, [facility] [place] [facility] [address] [id number] [place] [address] 17 Jul, 2011 [facility] [address] [id number] [place] [address] 08 Jul, 2011 [facility] [place] [facility] [address] [id number] [place] [address] 15 Jun, 2011 [facility] [address] [id number] [place] [address] 14 Jun, 2011 [facility] [address] [id number] [place] [address] 08 Jun, 2011 [facility] [address] [id number] [place] [address] 08 Jun, 2011 [facility] [address] [id number] [place] [address] May, [facility] [address] [id number] [place] [address] May, [facility] [address] [id number] [place] [address] May, [facility] [address] [id number] [place] [address] May, [facility] [address] [id number] [place] [address] May, [facility] [address] [id number] [place] [address] May, [facility] [address] [id number] [place] [address] May, [facility] [place] [facility] [address] [id number] [place] [address] Apr, [facility] [place] [facility] [address] [id number] [place] [address] 13 Apr, 2011 [facility] [address] [id number] [place] [address] Apr, [facility] [place] [facility] [address] [id number] [place] [address] Apr, [facility] [place] [facility] [address] [id number] [place] [address] Apr, [facility] [place] [facility] [address] [id number] [place] [address] Apr, [facility] [place] [facility] [address] [id number] [place] [address] Apr, [facility] [place] [facility] [address] [id number] [place] [address] Apr, [facility] [place] [facility] [address] [id number] [place] [address] Apr, [facility] [place] [facility] [address] [id number] [place] [address] Apr, [facility] [place] [facility] [address] [id number] [place] [address] Mar, [facility] [place] [facility] [address] [id number] [place] [address] Mar, [facility] [place] [facility] [address] [id number] [place] [address] Feb, [facility] [place] [facility] [address] [id number] [place] [address] Jun, [facility] [place] [facility] [address] [id number], [place] [address] Apr, [facility] [place] [facility] [address] [id number] [place] [address] Feb, [facility] [place] [facility] [address] [id number], [place] [address] Feb, [facility] [place] [facility] [address] [id number] [place] [address] Feb, [facility] [place] [facility] [address] [id number] [address] Apr, [facility] [id number] [address] Apr, [facility] [id number], [place] [address] Mar, [facility] [id number], [place] [address] Mar, [facility] [address] [id number], [place] [address] Mar, [facility] [id number] [place] [address] Feb, [facility] [id number] [place] [address] Feb, [facility] [id number], [place] [address] Feb, [facility] [id number], [place] [address] Jan, IMMUNIZATIONS Vaccine Route Administration Date Status TESTOSTERONE (PT'S OWN) IM Intramuscular Mar 06, 2017 Administered SOCIAL HISTORY Never Assessed [facility] [place] [facility] OF CARE VITAL SIGNS MEDICATIONS Medication Instructions Dosage Frequency Start Date End Date Duration Status Potassium Chloride Pati ER 10 MEQ 1 tablet with food 24h Active Clonidine HCl 0.2 MG 1 tablet 12h 90 Active Amlodipine Besylate 10 MG TAKE 1 TABLET ONE TIME DAILY (APPOINTMENT NEEDED FOR FURTHER REFILLS) 90 Active Enalapril Maleate 5 MG TAKE 1 TABLET TWICE DAILY (APPOINTMENT NEEDED FOR FURTHER REFILLS) 90 Active Lovastatin 20 mg 1 tablet with a meal 24h Active Blood Glucose Test Strip Test Strips as directed Nov, Active Depo-Testosterone 100 MG/ML Intramuscular every 2 weeks 1 ml Feb, Active Topamax 50 mg 1 tablet 12h 90 Active [place]ois 5-325 MG Orally every 6 hrs 1 tablet 6h Feb, 28 days Active Clonazepam 1 MG Orally 3 times a day 1 tablet 8h 24 Jun, 2014 28 days Active Carvedilol 3.125 MG Orally 2 times a day 1 tablet 12h Active Metformin HCl 500 MG TAKE 1 AND 1/2 TABLETS TWICE DAILY 90 Active Actos 30 MG Orally Once a day 1 tablet 24h Feb, Active Aspirin 81 MG Orally Once a day 1 tablet 24h Active Warfarin Sodium 6 MG TAKE 1 TABLET EVERY DAY 90 Active Paroxetine HCl 40 MG TAKE 1 TABLET ONE TIME DAILY IN THE MORNING 90 Active RESULTS No Results PROCEDURES Procedure Date Ordered Result Body Site TESTOSTERONE (PT'S OWN) Mar 06, 2017 THER/PROPH/DIAG INJ, SC/IM Mar 06, 2017 INSTRUCTIONS MEDICATIONS ADMINISTERED No Known Medications [...]
--- OUTSIDE RECORDS SUMMARY | 2018-04-28 05:39 | XMS REPORT ---
Author MARLEY Barrera [facility] eClinicalWorks Address Unknown Phone Unavailable Care Team Providers Care Bus Analyst Name Role Phone MARLEY MCGRATH CP Unavailable Allergies, Adverse Reactions, Alerts Substance Reaction Event Type Sulfamethoxazole-Trimethoprim Info Not Available Drug Allergy Problems Problem Type Condition Code Onset Dates Condition Status Problem Knee pain, right M25.561 Active Assessment Diabetes type 2, controlled E11.9 Active Problem Diabetes type 2, controlled E11.9 Active Medications Medication Code System Code Instructions Start Date End Date Status Dosage Blood Glucose Test Strip [facility] 0 Test Strips twice daily December 01, 2014 as directed Paroxetine HCl [facility] [address]-50 40 MG Orally Once a day 1 tablet in the morning Clonazepam [facility] [address]-71 1 MG Orally 3 times a day Jun 29, 2014 take 1 tablet Amlodipine Besylate [facility] [address]-83 10 MG Orally Once a day 1 tablet Lovastatin [facility] [address]-45 20 MG Orally Once a day 1 tablet with a meal Topamax [facility] [address]-18 50 MG Orally Twice a day 1 tablet Metformin HCl [facility] [address]-23 500 MG Orally Twice a day 1 1/2 tablets Warfarin Sodium [facility] [address]-91 6 MG Orally Once a day 1 tablet Enalapril Maleate [facility] [address]-70 5 MG Orally Twice a day 1 tablet Clonidine HCl [facility] [address]-32 0.2 MG Orally 2 times a day 1 tablet Potassium Chloride Pati ER [facility] [address]-26 10 MEQ Orally Once a day 1 tablet Actos [facility] [address]-14 30 MG Orally Once a day Feb 25, 2015 1 tablet [place] [facility] [address]-68 5-325 MG every 6 hrs July 26, 2014 1 tablet as needed Aspirin [facility] [address]-23 81 MG Orally Once a day 1 tablet Procedures Procedure Coding System Code Date [facility] VISIT ESTABLISHED PATIENT CPT-4 G0467 Apr 27, 2015 Office Visit, Est Pt., Level 3 CPT-4 95769 Apr 27, 2015 PROTHROMBIN TIME CPT-4 46671 Apr 27, 2015 Vital Signs Date/Time: Apr 27, 2015 Temperature 98.1 F Weight 244.1 lbs Height 69 in BMI 36.04 Index Blood Pressure Diastolic 72 mmHg Blood Pressure Systolic 120 mmHg Cardiac Monitoring Heart Rate 62 bpm Results Name Result Date Reference Range Unit Abnormality Flag INR (IN HOUSE) ----Exp date 20150427 ----INR 1.7 [id number] 1.10 - 3.30 ----PREVIOUS INR 1.9 [id number] ----CURRENT COUMADIN DOSE 5mg daily [id number] ----Lot # [id number] Summary Purpose eClinicalWorks Submission
--- OUTSIDE RECORDS SUMMARY | 2018-04-28 05:39 | XMS REPORT ---
Author Author MARLEY MCGRATH Organization [facility] Address [address] [place] [address] Care Team Providers Care [employer] Name Role Phone MARLEY MCGRATH Unavailable PROBLEMS Type Condition ICD9-CM Code OHR58-TR Code Onset Dates Condition Status SNOMED Code Problem Knee pain, right M25.561 Active 28624302 Problem Type 2 diabetes mellitus without complications E11.9 Active 416430392 Problem Diabetes type 2, controlled E11.9 Active 40025664 Problem Hypogonadism in male E29.1 Active 13481070 Problem 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.01 Active 0503774 Problem Chronic fatigue R53.82 Active 80288222 Problem Hammertoe of right foot M20.41 Active 592649178 Problem prison (current) use of anticoagulants Z79.01 Active 607810035 Problem Moderate episode of recurrent major depressive disorder F33.1 Active 414020964 Problem Hypertriglyceridemia E78.1 Active 781156249 ALLERGIES No Information ENCOUNTERS Encounter Location Date Diagnosis [facility] [id number] [place] [address] 75617- 5214 Aug, [facility] [id number] [place] [address] 90511- 1846 Aug, Medicare welcome exam Z00.00 [facility] [id number] [place] [address] 24545- 9213 Aug, [facility] [id number] [place] [address] 35096 -2388 Aug, Hypogonadism in male E29.1 [facility] [id number] [place] [address] 74191- 7219 Jul, [facility] [id number] [place] [address] 16393- 5444 Jul, Hypogonadism in male E29.1 [facility] [address] [address] 3755 Jul, [facility] [id number] [place] [address] 99983 -7262 Jul, Hypogonadism in male E29.1 [facility] [id number] [place] [address] 84200- 2821 Jul, Medicare welcome exam Z00.00 [facility] [id number] [place] [address] 05699- 2136 Jun, Medicare welcome exam Z00.00 [facility] [id number] [place] [address] 08516 -2831 Jun, Fever R50.9 and Influenza B J10.1 [place] [facility] [id number] [place] [address] 33410- 5353 Jun, Hypogonadism in male E29.1 [facility] [id number] [place] [address] 48721- 8959 Jun, Diabetes type 2, controlled E11.9 [place] [facility] [id number] [place] [address] 38425- 5238 May, Hypogonadism in male E29.1 [place] [facility] [id number] [place] [address] 59389- 9516 May, prison (current) use of anticoagulants Z79.01 [facility] [address] [id number] [address] 3106 Apr, Hypogonadism in male E29.1 [facility] [id number] [place] [address] 31026- 6737 Apr, [facility] [id number] [address] 0985 Apr, Medicare welcome exam Z00.00 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 [place] [address] [address]- 8421 Apr, Hypogonadism in male E29.1 [facility] [id number] [address]- 1476 Mar, Diabetes type 2, controlled E11.9 [facility] [address] [address]- 0656 Mar, Hypogonadism in male E29.1 [facility] [id number] [address]- 4288 Mar, Hypogonadism in male E29.1 [place] [facility] [id number] [place] [address] 864738- 1746 Feb, Hypogonadism in male E29.1 [place] [facility] [id number] [address]- 1221 Feb, Malaise R53.81 [place] [facility] [id number] [place] [address] 82330- 5223 Feb, [place] [facility] [id number] [place] [address] 96862- 2933 Feb, Diabetes type 2, controlled E11.9 [place] [facility] [address] [address]- 9020 Feb, Chronic fatigue R53.82 ; Malaise R53.81 and Moderate episode of recurrent major depressive disorder F33.1 [place] [address], [place] [address]- 5373 Jan, Diabetes type 2, controlled E11.9 [place] [address] [place] [address] 36217- 0910 Jan, 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.01 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 [facility] [address] [address]- 5768 Dec, Diabetes type 2, controlled E11.9 and Hypertriglyceridemia E78.1 [facility] [address], [place] [address]- 2823 Dec, Diabetes type 2, controlled E11.9 [facility] [address] [place] [address] 79426- 1032 Dec, High risk medication use Z79.899 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 [facility] [id number] [place] [address] 27710- 9978 Dec, High risk medication use Z79.899 [place] [facility] [id number] [place] [address] 18914- 0791 Nov, Diabetes type 2, controlled E11.9 [facility] [id number] [place] [address] 57272- 2070 Oct, Diabetes type 2, controlled E11.9 [place] [id number] [place] [address] 54857- 3784 September, Diabetes type 2, controlled E11.9 [place] [facility] [id number] [place] [address] 19315- 1651 Aug, prison (current) use of anticoagulants Z79.01 [facility] [address] [place] [address] 76676- 7739 Aug, Hematoma of arm, right, initial encounter S40.021A 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 [facility] [address] [place] [address] 33240- 7631 Aug, [facility] [address] [place] [address] 68549 -5903 Aug, Cellulitis of right upper extremity L03.113 [facility] [id number] [place] [address] 43307- 1601 14 Aug, 2016 Diabetes type 2, controlled E11.9 [facility] [address] [place] [address] 49904- 6450 Aug, Hammertoe of right foot M20.41 ; Hallux abducto valgus, left M20.12 and Onychomycosis B35.1 [facility] [id number] [place] [address] 51581- 0967 Aug, prison (current) use of anticoagulants Z79.01 [facility] [id number] [place] [address] 37193- 9978 Aug, 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 [facility] [id number] [place] [address] 71255- 9126 Aug, prison (current) use of anticoagulants Z79.01 [facility] [id number] [place] [address] 78667 -3978 Aug, Right shoulder pain M25.511 and Closed nondisplaced fracture of acromial end of right clavicle, initial encounter S42.034A [place] [address] 62243- 7891 Jul, Diabetes type 2, controlled E11.9 [place] [address] 58430- 5002 Jun, Diabetes type 2, controlled E11.9 and prison (current) use of anticoagulants Z79.01 [place] [id number] [place] [address] 73741- 9622 May, [place] [id number] [place] [address] 00007- 9282 Apr, [place] [id number] [place] [address] 56521- 8143 Mar, [place] [address] 68929- 0349 Feb, [place] [id number] [place] [address] 44859- 3695 Dec, Diabetes type 2, controlled E11.9 [place] [address], [place] [address]- 1072 Dec, [facility] [address] [address]- 4765 Nov, [facility] [address] [address]- 3134 Nov, Type 2 diabetes mellitus without complications E11.9 [facility] [id number] [place] [address] 21158- 2068 Oct, Type 2 diabetes mellitus without complications E11.9 [facility] [address] [address]- 6294 Aug, [facility] [id number] [place] [address] 96962- 4618 Aug, Type 2 diabetes mellitus without complications E11.9 [facility] [address] [place] [address] 74414- 5637 Jun, Type 2 diabetes mellitus without complications E11.9 and 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 halfway use of antiplatelet drug Z79.02 [facility] [address] [address]- 9902 May, [facility] [address] [address]- 3140 May, Diabetes type 2, controlled E11.9 [facility] [address], [place] [address]- 1117 Apr, Diabetes type 2, controlled E11.9 [facility] [id number] [address]- 2810 Mar, Diabetes type 2, controlled E11.9 ; Knee pain, right M25.561 ; Other chronic pain G89.29 and Medication monitoring encounter Z51.81 [facility] [id number] [address]- 1936 Feb, Type 2 diabetes mellitus without complications E11.9 ; High risk medication use Z79.899 and Anxiety F41.9 [facility] [address], [place] [address] 2549 Jan, Diabetes 250.00 [facility] [address], [place] [address] 2546 Dec, Diabetes 250.00 [facility] [address] [address] 2546 Nov, Diabetes 250.00 [facility] [id number] [address] 2546 Nov, [facility] [id number] [place] [address] 37269- 3191 Oct, Diabetes mellitus type 1 250.01 and High risk medication use V58.69 [facility] [address], [place] [address]- 8896 Oct, [facility] [address], [place] [address]- 7770 September, [facility] [address], [place] [address]- 7671 Aug, [facility] [address], [place] [address]- 1856 Aug, [facility] [address], [place] [address]- 2526 Jul, [facility] [address], [place] [address] 2546 Jul, [facility] [id number], [place] [address]- 1849 Jun, [facility] [address], [place] [address]- 8466 Jun, [facility] [address], [place] [address]- 8966 Jun, [facility] [address] [address]- 5545 May, [facility] [place] [facility] [address] [id number] [place] [address]- 3825 May, [facility] [place] [facility] [address] [id number] [place] [address]- 7938 Apr, [facility] [place] [facility] [address] [id number] [place] [address]- 4360 Apr, [facility] [place] [facility] [address] [id number] [place] [address]- 6308 Apr, [facility] [place] [facility] [address] [id number] [place] [address]- 1974 Apr, [facility] [place] [facility] [address] [id number] [place] [address]- 5676 Apr, [facility] [place] [facility] [address] [id number] [place] [address]- 1353 Apr, [facility] [place] [facility] [address] [id number] [place] [address]- 7989 Feb, [facility] [place] [facility] [address] [id number] [place] [address]- 1706 Feb, [facility] [place] [facility] [address] [id number] [place] [address]- 5449 Feb, [facility] [place] [facility] [address] [id number] [place] [address]- 2391 Feb, [facility] [place] [facility] [address] [id number] [place] [address]- 0165 Dec, [facility] [place] [facility] [address] [id number] [place] 2032 Dec, [facility] [place] [facility] [address] [id number] [place] 3296 Nov, [facility] [place] [facility] [address] [id number] [place] [address]- 2961 Nov, [facility] [place] [facility] [address] [id number] [place] [address]- 5863 Oct, [facility] [place] [facility] [address] [id number] [place] [address]- 7096 Oct, [facility] [place] [facility] [address] [id number] [place] [address]- 1611 Oct, [facility] [place] [facility] [address] [id number] [place] [address]- 1691 Oct, [facility] [place] [facility] [address] [id number] [place] [address]- 0871 Oct, [facility] [place] [facility] [address] [id number] [place] [address]- 2427 Oct, [facility] [place] [facility] [address] [id number] [place] [address]- 6212 September, [facility] [place] [facility] [address] [id number] [place] [address]- 2891 September, [facility] [place] [facility] [address] [id number] [place] [address]- 3288 September, [facility] [place] [facility] [address] [id number] [place] [address]- 7413 September, [facility] [place] [facility] [address] [id number] [place] [address]- 6021 September, [facility] [place] [facility] [address] [id number] [place] [address]- 2934 September, [facility] [place] [facility] [address] [id number] [place] [address]- 1165 Aug, [facility] [place] [facility] [address] [id number] [place] [address]- 4486 Aug, [facility] [place] [facility] [address] [id number] [place] [address]- 2453 Aug, [facility] [place] [facility] [address] [id number] [place] [address]- 6374 Aug, [facility] [place] [facility] [address] [id number] [place] [address]- 2374 Aug, [facility] [place] [facility] [address] [id number] [place] [address]- 7266 Aug, [facility] [place] [facility] [address] [facility] [id number] [place] [address]- 2546 Jul, [facility] [place] [facility] [address] [id number] [place] [address]- 2546 Jul, [facility] [place] [facility] [address] [id number] [place] [address]- 9562 Jul, [facility] [place] [facility] [address] [id number] [place] [address]- 4856 Jul, [facility] [place] [facility] [address] [facility] [id number] [place] [address]- 9582 May, [facility] [place] [facility] [address] [id number], [place] [address]- 3090 May, [facility] [place] [facility] [address] [id number] [place] [address]- 5876 Apr, [facility] [place] [facility] [address] [id number] [place] [address]- 7031 Apr, [facility] [place] [facility] [address] [facility] [id number], [place] [address]- 3736 Apr, [facility] [place] [facility] [address] [id number], [place] [address]- 9576 Apr, [facility] [place] [facility] [address] [id number] [place] [address]- 2540 Apr, [facility] [place] [facility] [address] [facility] [id number], [place] [address]- 8786 Apr, [facility] [place] [facility] [address] [facility] [id number], [place] [address]- 2546 Feb, [facility] [place] [facility] [address] [id number] [place] [address]- 6571 Feb, [facility] [place] [facility] [address] [id number] [place] [address]- 4891 Feb, 2012 [facility] [place] [facility] [address] [id number] [place] [address]- 1143 Feb, [facility] [place] [facility] [address] [id number] [place] [address]- 9773 Feb, [facility] [place] [facility] [address] [id number] [place] [address]- 8911 Feb, [facility] [place] [facility] [address] [id number] [place] [address]- 3309 Feb, [facility] [place] [facility] [address] [id number] [place] [address]- 6068 Feb, [facility] [place] [facility] [address] [id number] [place] [address]- 8981 Jan, [facility] [place] [facility] [address] [id number] [place] [address]- 2944 Jan, [facility] [place] [facility] [address] [id number] [place] [address]- 7435 Jan, [facility] [place] [facility] [address] [id number] [place] [address]- 2325 Jan, [facility] [place] [facility] [address] [id number] [place] [address]- 8063 Dec, [facility] [place] [facility] [address] [id number] [place] [address]- 8585 Dec, [facility] [place] [facility] [address] [id number] [place] [address]- 4279 Dec, [facility] [place] [facility] [address] [id number] [place] [address]- 2943 Nov, [facility] [place] [facility] [address] [id number] [place] [address]- 7004 Nov, [facility] [place] [facility] [address] [id number] [place] [address]- 0678 Oct, [facility] [address] [id number] [place] [address]- 6422 September, [facility] [address] [id number] [place] [address]- 7823 September, [facility] [address] [id number] [place] [address]- 9520 September, [facility] [address] [id number] [place] [address]- 7988 Aug, [facility] [address] [id number] [place] [address]- 6018 Aug, [facility] [address] [id number] [place] [address]- 2935 Aug, [facility] [address] [id number] [place] [address]- 6181 Jul, [facility] [address] [id number] [place] [address]- 3272 Jul, [facility] [address] [id number] [place] [address]- 2364 Jun, [facility] [address] [id number] [place] [address]- 4940 Jun, [facility] [address] [id number] [place] [address]- 5081 Jun, [facility] [address] [id number] [place] [address]- 1181 Jun, [facility] [address] [id number] [place] [address]- 2516 May, [facility] [place] [facility] [address] [id number] [place] [address]- 6066 May, [facility] [address] [id number] [place] [address]- 3878 Apr, [facility] [place] [facility] [address] [id number] [place] [address]- 3700 Apr, [facility] [place] [facility] [address] [id number] [place] [address]- 4384 Apr, [facility] [place] [facility] [address] [id number] [place] [address]- 3576 Apr, [facility] [place] [facility] [address] [id number] [place] [address]- 9236 Apr, [facility] [place] [facility] [address] [id number] [place] [address]- 7327 Apr, [facility] [place] [facility] [address] [id number] [place] [address]- 0645 Mar, [facility] [place] [facility] [address] [facility] [id number] [place] [address]- 7092 Mar, [facility] [place] [facility] [address] [id number], [place] [address]- 9904 Mar, [facility] [place] [facility] [address] [facility] [id number] [place] [address]- 4362 Mar, [facility] [place] [facility] [address] [facility] [id number] [place] [address]- 4852 Mar, [facility] [place] [facility] [address] [facility] [id number] [place] [address]- 8541 Mar, [facility] [place] [facility] [address] [id number], [place] [address]- 4717 Feb, [facility] [place] [facility] [address] [id number], [place] [address]- 5689 Feb, [facility] [place] [facility] [address] [facility] [id number], [place] [address]- 4091 Feb, [facility] [place] [facility] [address] [facility] [id number], [place] [address] Feb, [facility] [place] [facility] [address] [id number] [place] [address] Feb, [facility] [place] [facility] [address] [id number] [place] [address] Jan, [facility] [place] [facility] [address] [id number] [place] [address] Jan, [facility] [place] [facility] [address] [id number] [place] [address] Jan, [facility] [place] [facility] [address] [id number] [place] [address] Dec, [facility] [place] [facility] [address] [id number] [place] [address] Dec, [facility] [place] [facility] [address] [id number] [place] [address] Nov, [facility] [place] [facility] [address] [id number] [place] [address] Oct, [facility] [place] [facility] [address] [id number] [place] [address] Oct, [facility] [place] [facility] [address] [id number] [place] [address] Oct, [facility] [place] [facility] [address] [id number] [place] [address] Oct, [facility] [place] [facility] [address] [id number] [place] [address] Oct, [facility] [place] [facility] [address] [id number] [place] [address] September, [facility] [place] [facility] [address] [id number] [place] [address] Aug, [facility] [place] [facility] [address] [id number] [place] [address] Aug, [facility] [place] [facility] [address] [id number] [place] [address] 17 Aug, 2011 [facility] [place] [facility] [address] [id number] [place] [address] 16 Aug, 2011 [facility] [place] [facility] [address] [id number] [place] [address] 13 Aug, 2011 [facility] [place] [facility] [address] [id number] [place] [address]146 11 Aug, 2011 [facility] [place] [facility] [address] [id number] [place] [address] 11 Aug, 2011 [facility] [place] [facility] [address] [id number] [place] [address]- [address] 05 Aug, 2011 [facility] [place] [facility] [address] [id number] [place] [address]- [address] 05 Aug, 2011 [facility] [place] [facility] [address] [id number] [place] [address]- 39[address] 20 Jul, 2011 [facility] [place] [facility] [address] [id number] [place] [address] Jul, [facility] [place] [facility] [address] [id number] [place] [address] 70[address] Jul, [facility] [place] [facility] [address] [id number] [place] [address]- [address] 17 Jul, 2011 [facility] [place] [facility] [address] [id number] [place] [address] Jul, [facility] [place] [facility] [address] [id number] [place] [address]- [address] 15 Jun, 2011 [facility] [place] [facility] [address] [id number] [place] [address]4 14 Jun, 2011 [facility] [place] [facility] [address] [id number] [place] [address] 08 Jun, 2011 [facility] [place] [facility] [address] [id number] [place] [address]- [address] 08 Jun, 2011 [facility] [place] [facility] [address] [id number] [place] [address] May, [facility] [address] [id number] [place] [address] May, [facility] [address] [id number] [place] [address] May, [facility] [address] [id number] [place] [address] May, [facility] [address] [id number] [place] [address] May, [facility] [address] [id number] [place] [address]- [address] May, [facility] [address] [id number] [place] [address] May, [facility] [address] [id number] [place] [address] Apr, [facility] [address] [id number] [place] [address]- [address] Apr, [facility] [address] [id number] [place] [address] Apr, [facility] [address] [id number] [place] [address]- [address] Apr, [facility] [address] [id number] [place] [address]- [address] Apr, [facility] [address] [id number] [place] [address]- [address]43 Apr, [facility] [address] [id number] [place] Apr, [facility] [address] [id number] [place] [address] 12 Apr, 2011 [facility] [address] [id number] [place] [address] Apr, [facility] [place] [facility] [address] [id number] [place] [address] Apr, [facility] [place] [facility] [address] [id number] [place] [address] Mar, [facility] [place] [facility] [address] [id number] [place] [address] Mar, [facility] [place] [facility] [address] [id number] [place] [address] Feb, [facility] [place] [facility] [address] [id number] [place] [address] Jun, [facility] [place] [facility] [address] [id number] [place] [address] Apr, [facility] [place] [facility] [address] [id number] [place] [address] Feb, [facility] [place] [facility] [address] [id number], [place] [address] Feb, [facility] [place] [facility] [address] [id number] [place] [address] Feb, [facility] [place] [facility] [address] [id number], [place] [address] Apr, [facility] [place] [facility] [address] [id number], [place] [address] Apr, [facility] [place] [facility] [address] [id number], [place] [address] Mar, [facility] [place] [facility] [address] [id number] [place] [address] Mar, [facility] [place] [facility] [address] [id number], [place] [address] Mar, [facility] [place] [facility] [address] [id number] [place] [address] Feb, [facility] [place] [facility] [address] [facility] [id number] [place] [address] Feb, [facility] [address] [facility] [id number] [place] [address] Feb, [facility] [address] [facility] [id number] [place] [address] Jan, IMMUNIZATIONS No Known Immunizations SOCIAL HISTORY Never Assessed REASON FOR VISIT Controlled Med Refill 01/15/17 PLAN OF CARE VITAL SIGNS MEDICATIONS Medication Instructions Dosage Frequency Start Date End Date Duration Status [place] 5-325 MG Orally every 6 hrs 1 tablet 6h Jan, 28 days Active Clonazepam 1 MG Orally [...]
--- OUTSIDE RECORDS SUMMARY | 2018-04-28 05:40 | XMS REPORT ---
Author Author MARLEY MCGRATH Organization [employer] Address Unknown Phone Unavailable Care Team Providers Care Cryptozoologist Name Role Phone MARLEY MCGRATH CP Unavailable Allergies No Known Allergies Problems Problem Type Condition Code Onset Dates Condition Status Problem Diabetes type 2, controlled E11.9 Active Problem Knee pain, right M25.561 Active Problem Type 2 diabetes mellitus without complications E11.9 Active Medications No Known Medications Results No Known Results Summary Purpose [employer] Submission
--- OUTSIDE RECORDS SUMMARY | 2018-04-28 05:40 | XMS REPORT ---
Author MARLEY Barrera [facility] [employer] Address Unknown Phone Unavailable Care Team Providers Care Microwave Supervisor Name Role Phone MARLEY MCGRATH CP Unavailable Allergies, Adverse Reactions, Alerts Substance Reaction Event Type Sulfamethoxazole-Trimethoprim Info Not Available Drug Allergy Problems Problem Type Condition Code Onset Dates Condition Status Problem Knee pain, right M25.561 Active Assessment Diabetes type 2, controlled E11.9 Active Problem Diabetes type 2, controlled E11.9 Active Assessment Medication monitoring encounter Z51.81 Active Assessment Knee pain, right M25.561 Active Assessment Other chronic pain G89.29 Active Medications Medication Code System Code Instructions Start Date End Date Status Dosage Topamax [facility] [address]-21 50 MG Orally Twice a day 1 tablet Clonidine HCl [facility] [address]-51 0.2 MG Orally 2 times a day 1 tablet Lovastatin [facility] [address]-65 20 MG Orally Once a day 1 tablet with a meal Enalapril Maleate [facility] [address]-67 5 MG Orally Twice a day 1 tablet Clonazepam [facility] [address]-03 1 MG Orally 3 times a day Jun 29, 2014 take 1 tablet Paroxetine HCl [facility] [address]-93 40 MG Orally Once a day 1 tablet in the morning Amlodipine Besylate [facility] [address]-30 10 MG Orally Once a day 1 tablet Warfarin Sodium [facility] [address]-99 5 MG Orally Once a day 1 tablet Potassium Chloride Pati ER [facility] [address]-01 10 MEQ Orally Once a day 1 tablet Actos [facility] [address]-73 30 MG Orally Once a day Feb 25, 2015 1 tablet Metformin HCl [facility] [address]-14 500 MG Orally Twice a day 1 tablet with meals [place] [facility] [address]-99 5-325 MG every 6 hrs July 26, 2014 1 tablet as needed Aspirin [facility] [address]-74 81 MG Orally Once a day 1 tablet Blood Glucose Test Strip [facility] 0 Test Strips twice daily December 01, 2014 as directed Procedures Procedure Coding System Code Date Office Visit, Est Pt., Level 3 CPT-4 80994 Mar 28, 2015 PROTHROMBIN TIME CPT-4 95105 Mar 28, 2015 [facility] VISIT ESTABLISHED PATIENT CPT-4 G0467 Mar 28, 2015 Vital Signs Date/Time: Mar 28, 2015 Temperature 97.7 F Weight 238 lbs Height 69 in BMI 35.14 Index Blood Pressure Diastolic 74 mmHg Blood Pressure Systolic 130 mmHg Cardiac Monitoring Heart Rate 60 bpm Results Name Result Date Reference Range Unit Abnormality Flag INR (IN HOUSE) Summary Purpose [employer] Submission
--- OUTSIDE RECORDS SUMMARY | 2018-04-28 05:40 | XMS REPORT ---
Author Author MARLEY MCGRATH Organization [facility] Address [address] [place] [address] Care Team Providers Care Book Sorter Name Role Phone MARLEY MCGRATH Unavailable PROBLEMS Type Condition ICD9-CM Code [id number] Code Onset Dates Condition Status SNOMED Code Problem Knee pain, right M25.561 Active 18433948 Problem Type 2 diabetes mellitus without complications E11.9 Active 103265575 Problem Diabetes type 2, controlled E11.9 Active 18369699 Problem Hypogonadism in male E29.1 Active 27107849 Problem 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.01 Active 7573456 Problem Chronic fatigue R53.82 Active 07085689 Problem Hammertoe of right foot M20.41 Active 341686506 Problem alf (current) use of anticoagulants Z79.01 Active 196411085 Problem Moderate episode of recurrent major depressive disorder F33.1 Active 356875387 Problem Hypertriglyceridemia E78.1 Active [id number] ALLERGIES No Information ENCOUNTERS Encounter Location Date Diagnosis [facility] [id number] [place] [address] 77738- 7836 Aug, [facility] [id number] [place] [address] 92576 -4332 Aug, Hypogonadism in male E29.1 [facility] [id number] [place] [address] 62208- 6504 Jul, [facility] [id number] [place] [address] 76913- 2835 Jul, Hypogonadism in male E29.1 [facility] [id number] [place] [address] 22962- 0169 Jul, [facility] [id number] [place] [address] 81271 -7258 Jul, Hypogonadism in male E29.1 [facility] [address], [place] [address] 0[address] Jul, Medicare welcome exam Z00.00 [facility] [address] [address] 22 Jun, 2017 Medicare welcome exam Z00.00 [facility] [address] [address] Jun, Fever R50.9 and Influenza B J10.1 [facility] [id number] [place] [address] 43222- 3321 Jun, Hypogonadism in male E29.1 [facility] [id number] [place] [address] 42419- 0207 Jun, Diabetes type 2, controlled E11.9 [facility] [id number] [place] [address] 40120- 3915 May, Hypogonadism in male E29.1 [facility] [address], [place] [address] 2838 May, 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 [facility] [address], [place] [address] 7614 Apr, Hypogonadism in male E29.1 [facility] [address] [address] 3294 Apr, [facility] [id number] [place] [address] 27043- 2548 Apr, Medicare welcome exam Z00.00 and 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 [facility] [id number] [place] [address] 38966- 4959 Apr, Hypogonadism in male E29.1 [facility] [address] [address] 5587 Mar, Diabetes type 2, controlled E11.9 [facility] [address], [place] [address] 2440 Mar, Hypogonadism in male E29.1 [facility] [id number] [place] [address] 37979- 2749 Mar, Hypogonadism in male E29.1 [facility] [id number] [place] [address] 41699- 6354 Feb, Hypogonadism in male E29.1 [facility] [id number] [place] [address] 71957- 2066 Feb, Malaise R53.81 [place] [id number] [place] [address] 60871- 7528 Feb, [facility] [id number] [place] [address] 61410- 1350 Feb, Diabetes type 2, controlled E11.9 [facility] [facility] [id number] [place] [address] 71127- 4341 Feb, Chronic fatigue R53.82 ; Malaise R53.81 and Moderate episode of recurrent major depressive disorder F33.1 [place] [facility] [id number] [place] [address] 17860- 6282 Jan, Diabetes type 2, controlled E11.9 [facility] [facility] [id number] [place] [address] 74114- 5973 Jan, 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.01 and 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 [place] [address], [place] [address]- 9359 Dec, Diabetes type 2, controlled E11.9 and Hypertriglyceridemia E78.1 [facility] [id number] [place] [address] 05259- 7107 Dec, Diabetes type 2, controlled E11.9 [place] [id number] [place] [address] 43115- 5141 Dec, High risk medication use Z79.899 and alf (current) use of anticoagulants Z79.01 [facility] [id number] [place] [address] 81679- 3576 Dec, High risk medication use Z79.899 [place] [facility] [id number] [place] [address] 40677- 8833 Nov, Diabetes type 2, controlled E11.9 [facility] [id number] [place] [address] 59534- 2782 Oct, Diabetes type 2, controlled E11.9 [place] [facility] [id number] [place] [address] 44324- 1668 September, Diabetes type 2, controlled E11.9 [facility] [facility] [id number] [place] [address] 95044- 4689 Aug, 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 [place] [facility] [id number] [place] [address] 29545- 2343 Aug, Hematoma of arm, right, initial encounter S40.021A and alf (current) use of anticoagulants Z79.01 [place] [facility] [id number] [place] [address] 07327- 9971 Aug, [facility] [id number] [place] [address] 24298 -8820 Aug, Cellulitis of right upper extremity L03.113 [place] [id number] [place] [address] 30368- 8423 14 Aug, 2016 Diabetes type 2, controlled E11.9 [place] [facility] [id number] [place] [address] 11815- 1361 Aug, Hammertoe of right foot M20.41 ; Hallux abducto valgus, left M20.12 and Onychomycosis B35.1 [facility] [facility] [id number] [place] [address] 57011- 3332 Aug, alf (current) use of anticoagulants Z79.01 [facility] [address], [place] [address]- 2547 Aug, alf (current) use of anticoagulants Z79.01 [facility] [address], [place] [address]- 5066 Aug, alf (current) use of anticoagulants Z79.01 [facility] [address], [place] [address]1387 Aug, Right shoulder pain M25.511 and Closed nondisplaced fracture of acromial end of right clavicle, initial encounter S42.034A [facility] [id number] [place] [address] 52251- 2273 Jul, Diabetes type 2, controlled E11.9 [facility] [id number] [place] [address] 27232- 9093 Jun, Diabetes type 2, controlled E11.9 and 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 [facility] [address] [address]- 7444 May, [facility] [address], [place] [address]- 6321 Apr, [facility] [address], [place] [address]- 9316 Mar, [facility] [address] [address]- 5581 Feb, [facility] [address], [place] [address]- 8189 Dec, Diabetes type 2, controlled E11.9 [facility] [address] 3807 Dec, [facility] [address], [place] [address]- 8672 Nov, [facility] [id number] [address]- 7049 Nov, Type 2 diabetes mellitus without complications E11.9 [facility] [id number] [place] [address] 96975- 2715 Oct, Type 2 diabetes mellitus without complications E11.9 [facility] [id number] [place] [address] 04856- 4343 Aug, [facility] [id number] [place] [address] 40019- 1076 Aug, Type 2 diabetes mellitus without complications E11.9 [facility] [id number] [place] [address] 97200- 8785 Jun, Type 2 diabetes mellitus without complications E11.9 and 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 termination clerk use of antiplatelet drug Z79.02 [place] [id number] [place] [address] 25790- 2492 May, [place] [id number] [place] [address] 48814- 7885 May, Diabetes type 2, controlled E11.9 [place] [id number] [place] [address] 82914- 5135 Apr, Diabetes type 2, controlled E11.9 [facility] [id number] [place] [address] 87478- 7873 Mar, Diabetes type 2, controlled E11.9 ; Knee pain, right M25.561 ; Other chronic pain G89.29 and Medication monitoring encounter Z51.81 [place] [id number] [place] [address] 54124- 1788 Feb, Type 2 diabetes mellitus without complications E11.9 ; High risk medication use Z79.899 and Anxiety F41.9 [place] [address], [place] [address]- 6978 10 Jan, 2015 Diabetes 250.00 [place] [id number] [place] [address] 83337- 3755 Dec, Diabetes 250.00 [facility] [address] [facility] [id number] [place] [address]- 0247 Nov, Diabetes 250.00 [facility] [address] [facility] [id number] [place] [address]- 6516 Nov, [facility] [address] [facility] [id number] [place] [address]- 0351 Oct, Diabetes mellitus type 1 250.01 and High risk medication use V58.69 [facility] [address] [id number] [place] [address]- 7746 Oct, [facility] [address] [facility] [id number] [place] [address]- 9750 September, [facility] [address] [facility] [id number] [place] [address]- 0014 Aug, [facility] [id number] [place] [address]- 3927 Aug, [facility] [address] [facility] [id number] [place] [address]- 2283 Jul, [facility] [id number] [place] [address]- 1289 Jul, [facility] [id number] [place] [address]- 4729 Jun, [facility] [id number] [place] [address]- 4856 Jun, [facility] [address] [facility] [id number] [place] [address]- 6991 Jun, [facility] [address] [facility] [id number] [place] [address]- 7966 May, [facility] [address] [facility] [id number], [place] [address]- 7956 May, [facility] [id number], [place] [address]- 2876 Apr, [facility] [place] [facility] [address] [id number] [place] 7912 Apr, [facility] [place] [facility] [address] [id number] [place] 8921 Apr, [facility] [place] [facility] [address] [id number] [place] 2504 Apr, [facility] [place] [facility] [address] [id number] [place] [address]- 0855 Apr, [facility] [place] [facility] [address] [id number] [place] [address]- 7745 Apr, [facility] [place] [facility] [address] [id number] [place] [address]- 6314 Feb, [facility] [place] [facility] [address] [id number] [place] [address]- 1329 Feb, [facility] [place] [facility] [address] [id number] [place] [address]- 1941 Feb, [facility] [place] [facility] [address] [id number] [place] [address]- 1473 Feb, [facility] [place] [facility] [address] [id number] [place] [address]- 7765 Dec, [facility] [place] [facility] [address] [id number], [place] [address]- 4221 Dec, [facility] [place] [facility] [address] [id number], [place] [address]- 5985 Nov, [facility] [place] [facility] [address] [id number] [place] [address]- 1844 Nov, [facility] [place] [facility] [address] [id number] [place] [address]- 6227 Oct, [facility] [place] [facility] [address] [id number] [place] [address]- 6029 Oct, [facility] [place] [facility] [address] [id number] [place] [address]- 7908 Oct, [facility] [place] [facility] [address] [id number] [place] [address]- 4358 Oct, [facility] [place] [facility] [address] [id number] [place] [address]- 7289 Oct, [facility] [place] [facility] [address] [id number] [place] [address]- 8844 Oct, [facility] [place] [facility] [address] [id number] [place] [address]- 0887 September, [facility] [place] [facility] [address] [id number] [place] [address]- 2847 September, [facility] [place] [facility] [address] [id number] [place] [address]- 6497 September, [facility] [place] [facility] [address] [id number] [place] [address]- 4079 September, [facility] [place] [facility] [address] [id number] [place] [address]- 7659 September, [facility] [place] [facility] [address] [id number] [place] [address]- 3392 September, [facility] [place] [facility] [address] [id number] [place] [address]- 9351 Aug, [facility] [place] [facility] [address] [id number] [place] [address]- 6691 Aug, [facility] [place] [facility] [address] [id number] [place] [address]- 6519 Aug, [facility] [place] [facility] [address] [id number] [place] [address]- 6208 Aug, [facility] [place] [facility] [address] [id number] [place] [address]- 7593 Aug, [facility] [place] [facility] [address] [id number] [place] [address]- 4368 Aug, [facility] [place] [facility] [address] [id number] [place] [address]- 9334 Jul, [facility] [place] [facility] [address] [id number] [place] [address]- 9516 Jul, [facility] [place] [facility] [address] [id number] [place] [address]- 2546 Jul, [facility] [place] [facility] [address] [id number] [place] [address] 2549 Jul, [facility] [place] [facility] [address] [id number] [place] [address]- 0358 May, [facility] [place] [facility] [address] [id number] [place] [address]- 5179 May, [facility] [address] [id number] [place] [address]- 0313 Apr, [facility] [address] [id number] [place] [address]- 2078 Apr, [facility] [place] [facility] [address] [id number] [place] [address]- 6950 Apr, [facility] [place] [facility] [address] [id number] [place] [address]- 4054 Apr, [facility] [place] [facility] [address] [id number] [place] [address]- 3441 Apr, [facility] [place] [facility] [address] [id number], [place] [address]- 6572 Apr, [facility] [place] [facility] [address] [id number] [place] [address]- 3525 Feb, [facility] [place] [facility] [address] [id number] [place] [address]- 2546 Feb, [facility] [place] [facility] [address] [id number] [place] [address]- 2546 Feb, [facility] [place] [facility] [address] [id number], [place] [address]- 5886 Feb, [facility] [place] [facility] [address] [id number] [place] [address]- 9933 Feb, [facility] [place] [facility] [address] [id number] [place] [address]- 7832 Feb, [facility] [place] [facility] [address] [id number] [place] [address]- 0999 Feb, [facility] [place] [facility] [address] [id number] [place] 2021 Feb, [facility] [place] [facility] [address] [id number] [place] [address]- 1746 Jan, [facility] [place] [facility] [address] [id number] [place] [address]- 1753 Jan, [facility] [place] [facility] [address] [id number] [place] [address]- 6212 Jan, [facility] [place] [facility] [address] [id number] [place] [address]- 6205 Jan, [facility] [place] [facility] [address] [id number] [place] [address]- 3153 Dec, [facility] [place] [facility] [address] [id number] [place] [address]- 6420 Dec, [facility] [place] [facility] [address] [id number], [place] [address]- 9701 Dec, [facility] [place] [facility] [address] [id number], [place] [address]- 9018 Nov, [facility] [place] [facility] [address] [id number] [place] 1885 Nov, [facility] [place] [facility] [address] [id number] [place] 0371 Oct, [facility] [place] [facility] [address] [id number] [place] [address]- 0671 September, [facility] [place] [facility] [address] [id number] [place] [address]- 3958 September, [facility] [address] [id number] [place] [address]- 4837 September, [facility] [address] [id number] [place] [address]- 8206 Aug, [facility] [address] [id number] [place] [address]- 4307 16 Aug, 2012 [facility] [address] [id number] [place] [address]- 4312 15 Aug, 2012 [facility] [address] [id number] [place] [address]- 8613 Jul, [facility] [address] [id number] [place] [address]- 6807 Jul, [facility] [address] [id number] [place] [address]- 3107 Jun, [facility] [address] [id number] [place] [address]- 6117 Jun, [facility] [address] [id number] [place] [address]- 9482 Jun, [facility] [address] [id number] [place] [address]- 0473 Jun, [facility] [address] [id number] [place] [address]- 9841 May, [facility] [address] [id number] [place] [address]- 6052 May, [facility] [place] [facility] [address] [id number] [place] [address]- 7736 Apr, [facility] [address] [id number] [place] [address]- 0106 Apr, [facility] [address] [id number] [place] [address]- 0581 Apr, [facility] [place] [facility] [address] [id number] [place] [address]- 3397 Apr, [facility] [place] [facility] [address] [id number], [place] [address]- 7786 Apr, [facility] [place] [facility] [address] [facility] [id number] [place] [address]- 8426 Apr, [facility] [place] [facility] [address] [id number], [place] [address]- 7663 Mar, [facility] [place] [facility] [address] [id number] [place] [address] Mar, [facility] [place] [facility] [address] [facility] [id number], [place] [address] Mar, [facility] [place] [facility] [address] [facility] [id number] [place] [address] Mar, [facility] [place] [facility] [address] [id number], [place] [address] Mar, [facility] [place] [facility] [address] [facility] [id number], [place] [address] Mar, [facility] [place] [facility] [address] [facility] [id number], [place] [address] Feb, [facility] [place] [facility] [address] [facility] [id number], [place] [address] Feb, [facility] [place] [facility] [address] [id number], [place] [address] Feb, [facility] [place] [facility] [address] [id number], [place] [address] Feb, [facility] [place] [facility] [address] [facility] [id number], [place] [address] Feb, [facility] [place] [facility] [address] [facility] [id number], [place] [address] Jan, [facility] [place] [facility] [address] [id number] [place] [address] 06 Jan, 2012 [facility] [place] [facility] [address] [id number] [place] [address] Jan, [facility] [place] [facility] [address] [id number] [place] [address] Dec, [facility] [place] [facility] [address] [id number] [place] [address] Dec, [facility] [place] [facility] [address] [id number] [place] [address] Nov, [facility] [place] [facility] [address] [id number] [place] [address] Oct, [facility] [place] [facility] [address] [id number] [place] [address] Oct, [facility] [place] [facility] [address] [id number] [place] [address] Oct, [facility] [place] [facility] [address] [id number] [place] [address] Oct, [facility] [place] [facility] [address] [id number] [place] [address] Oct, [facility] [place] [facility] [address] [id number] [place] [address] September, [facility] [place] [facility] [address] [id number] [place] [address] 18 Aug, 2011 [facility] [place] [facility] [address] [id number] [place] [address] 18 Aug, 2011 [facility] [place] [facility] [address] [id number] [place] [address] 17 Aug, 2011 [facility] [place] [facility] [address] [id number] [place] [address] 16 Aug, 2011 [facility] [place] [facility] [address] [id number] [place] [address] 13 Aug, 2011 [facility] [place] [facility] [address] [id number] [place] [address] 11 Aug, 2011 [facility] [place] [facility] [address] [id number] [place] [address] Aug, [facility] [place] [facility] [address] [id number] [place] [address] 05 Aug, 2011 [facility] [place] [facility] [address] [id number] [place] [address] Aug, [facility] [address] [id number] [place] [address] Jul, [facility] [place] [facility] [address] [id number] [place] [address] Jul, [facility] [address] [id number] [place] [address] Jul, [facility] [address] [id number] [place] [address] 17 Jul, 2011 [facility] [address] [id number] [place] [address] Jul, [facility] [address] [id number] [place] [address] 15 Jun, 2011 [facility] [place] [facility] [address] [id number] [place] [address] 14 Jun, 2011 [facility] [place] [facility] [address] [id number] [place] [address] 08 Jun, 2011 [facility] [place] [facility] [address] [id number] [place] [address] Jun, [facility] [place] [facility] [address] [id number] [place] [address] 19 May, 2011 [facility] [place] [facility] [address] [id number] [place] [address] 13 May, 2011 [facility] [place] [facility] [address] [id number] [place] [address] 10 May, 2011 [facility] [address] [id number] [place] [address] May, [facility] [address] [id number] [place] [address] May, [facility] [address] [id number] [place] [address] May, [facility] [address] [id number] [place] [address] May, [facility] [address] [id number] [place] [address] Apr, [facility] [facility] [address] [id number] [place] [address] Apr, [facility] [address] [id number] [place] [address] Apr, [facility] [address] [id number] [place] [address] Apr, [facility] [address] [id number] [place] [address] Apr, [facility] [address] [id number] [place] [address] Apr, [facility] [address] [id number] [place] [address] Apr, [facility] [place] [facility] [address] [id number] [place] [address] Apr, [facility] [place] [facility] [address] [id number] [place] [address] Apr, [facility] [place] [facility] [address] [id number] [place] [address] Apr, [facility] [address] [id number] [place] [address] Mar, [facility] [place] [facility] [address] [id number] [place] [address] 16 Mar, 2011 [facility] [place] [facility] [address] [id number] [place] [address] Feb, [facility] [place] [facility] [address] [id number] [place] [address] Jun, [facility] [place] [facility] [address] [id number] [place] [address] Apr, [facility] [place] [facility] [address] [id number] [place] [address] Feb, [facility] [place] [facility] [address] [id number] [place] [address] Feb, [facility] [place] [facility] [address] [id number] [place] [address] Feb, [facility] [place] [facility] [address] [id number] [place] [address] Apr, [facility] [place] [facility] [address] [id number] [place] [address] Apr, [facility] [place] [facility] [address] [id number] [place] [address] Mar, [facility] [place] [facility] [address] [id number] [place] [address] Mar, [facility] [place] [facility] [address] [id number], [place] [address] Mar, [facility] [place] [facility] [address] [id number] [place] [address] Feb, [facility] [place] [facility] [address] [id number] [place] [address] Feb, [facility] [place] [facility] [address] [id number] [place] [address] Feb, [facility] [place] [facility] [address] [id number], [place] [address] Jan, IMMUNIZATIONS No Known Immunizations SOCIAL HISTORY Never Assessed REASON FOR VISIT Lab (walk-in) PLAN OF CARE VITAL SIGNS MEDICATIONS Unknown Medications RESULTS No Results PROCEDURES Procedure Date Ordered Result Body Site LAB [facility] Dec 07, 2016 PROTHROMBIN TIME Dec 07, 2016 VENIPUNCT, ROUTINE* Dec 07, 2016 INSTRUCTIONS MEDICATIONS ADMINISTERED No Known Medications MEDICAL [...]
--- OUTSIDE RECORDS SUMMARY | 2018-04-28 05:40 | XMS REPORT ---
Author MARLEY Barrera [facility] eClinical[employer] Address Unknown Phone Unavailable Care Team Providers Care Fire Captain Marine Name Role Phone MARLEY MCGRATH CP Unavailable Allergies, Adverse Reactions, Alerts Substance Reaction Event Type Sulfamethoxazole-Trimethoprim Info Not Available Drug Allergy Problems Problem Type Condition Code Onset Dates Condition Status Assessment Anxiety F41.9 Active Assessment Type 2 diabetes mellitus without complications E11.9 Active Assessment High risk medication use Z79.899 Active Problem Depressive disorder, not elsewhere classified 311 Active Problem 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 Active Problem Diabetes 250.00 Active Problem Special screening for malignant neoplasm of prostate V76.44 Active Problem Pain in soft tissues of limb 729.5 Active Problem Pain in joint, lower leg 719.46 Active Problem Chondromalacia 733.92 Active Medications Medication Code System Code Instructions Start Date End Date Status Dosage Aspirin [facility] [address]-04 81 MG Orally Once a day 1 tablet Actos [facility] [address]-07 15 MG Orally Once a day Feb 25, 2015 1 tablet Metformin HCl [facility] [address]-32 500 MG Orally Twice a day 1 tablet with meals Warfarin Sodium [facility] [address]-68 5 MG Orally Once a day 1 tablet Topamax [facility] [address]-93 50 MG Orally Twice a day 1 tablet Blood Glucose Test Strip [facility] 0 Test Strips twice daily December 01, 2014 as directed Amlodipine Besylate [facility] [address]-48 10 MG Orally Once a day 1 tablet Paroxetine HCl [facility] [address]-00 40 MG Orally Once a day 1 tablet in the morning Lovastatin [facility] [address]-17 20 MG Orally Once a day 1 tablet with a meal Enalapril Maleate [facility] [address]-57 5 MG Orally Twice a day 1 tablet Potassium Chloride Pati ER [facility] [address]-95 10 MEQ Orally Once a day 1 tablet Clonidine HCl [facility] [address]-61 0.2 MG Orally 2 times a day 1 tablet Clonazepam [facility] [address]-17 1 MG Orally 3 times a day Jun 29, 2014 take 1 tablet [place] [facility] [address]-51 5-325 MG every 6 hrs July 26, 2014 1 tablet as needed Procedures Procedure Coding System Code Date [facility] VISIT ESTABLISHED PATIENT CPT-4 G0467 Feb 25, 2015 Office Visit, Est Pt., Level 3 CPT-4 88945 Feb 25, 2015 GLYCATED HEMOGLOBIN TEST CPT-4 47606 Feb 25, 2015 Vital Signs Date/Time: Feb 25, 2015 Temperature 97.6 F Weight 238.8 lbs Height 69 in BMI 35.26 Index Blood Pressure Diastolic 78 mmHg Blood Pressure Systolic 132 mmHg Cardiac Monitoring Heart Rate 68 bpm Results Name Result Date Reference Range Unit Abnormality Flag A1C (IN HOUSE) Summary Purpose eClinicalWorks Submission
--- OUTSIDE RECORDS SUMMARY | 2018-04-28 05:40 | XMS REPORT ---
Author Author MARLEY MCGRATH Organization [facility] Address [address] [place] [address] Care Team Providers Care Drug Abuse Technician Name Role Phone MARLEY MCGRATH Unavailable PROBLEMS Type Condition ICD9-CM Code HHY43-UF Code Onset Dates Condition Status SNOMED Code Problem Hammertoe of right foot M20.41 Active 510943799 Problem Moderate episode of recurrent major depressive disorder F33.1 Active 716289034 Problem Hypertriglyceridemia E78.1 Active 867200288 Problem Other chronic pain G89.29 Active 24143117 Problem Memory loss R41.3 Active 616616007 Problem 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.01 Active 4690534 Problem Chronic fatigue R53.82 Active 86799528 Problem Controlled type 2 diabetes mellitus without complication, without long -term current use of insulin E11.9 Active 690604486 Problem Chronic major depressive disorder, recurrent episode F33.9 Active 97964914 Problem Knee pain, right M25.561 Active 46140928 Problem Diabetes type 2, controlled E11.9 Active 86898051 Problem Type 2 diabetes mellitus without complications E11.9 Active 184898834 Problem Hypogonadism in male E29.1 Active 69192613 Problem long-term (current) use of anticoagulants Z79.01 Active 801680609 ALLERGIES No Information ENCOUNTERS Encounter Location Date Diagnosis [facility] [id number] [address] Oct, [facility] [id number] [address] Oct, Diabetes type 2, controlled E11.9 [facility] [id number] [address] Oct, Medicare welcome exam Z00.00 [facility] [id number] [address] Oct, Hypogonadism in male E29.1 [facility] [address], [place] [address] Oct, [facility] [address], [place] [address] September, Hypogonadism in male E29.1 [facility] [address], [place] [address] September, Medicare welcome exam Z00.00 [facility] [address], [place] [address] September, Hypogonadism in male E29.1 [facility] [id number], [place] [address] Aug, Other chronic pain G89.29 ; Memory loss R41.3 ; Controlled type 2 diabetes mellitus without complication, without long-term current use of insulin E11.9 and Chronic major depressive disorder, recurrent episode F33.9 [facility] [address], [place] [address] Aug, Medicare welcome exam Z00.00 [facility] [id number], [place] [address] Aug, [facility] [address], [place] [address] Aug, Hypogonadism in male E29.1 [facility] [address], [place] [address] Jul, [facility] [address], [place] [address] Jul, Hypogonadism in male E29.1 [facility] [address] [address] Jul, [facility] [address], [place] [address] Jul, Hypogonadism in male E29.1 [facility] [address], [place] [address] 5968 Jul, Medicare welcome exam Z00.00 [facility] [id number], [place] [address] 7[address] Jun, Medicare welcome exam Z00.00 [facility] [address], [place] [address] Jun, Fever R50.9 and Influenza B J10.1 [facility] [id number], [place] [address] Jun, Hypogonadism in male E29.1 [facility] [id number] [place] [address]- 4926 Jun, Diabetes type 2, controlled E11.9 [facility] [id number] [place] [address] 29088- 0626 May, Hypogonadism in male E29.1 [facility] [id number] [place] [address] 19853- 6658 May, long-term (current) use of anticoagulants Z79.01 [facility] [id number] [place] [address]23- 5119 Apr, Hypogonadism in male E29.1 [facility] [address], [place] [address] 6[address] Apr, [facility] [id number] [place] [address] 62445- 2887 Apr, Medicare welcome exam Z00.00 and long-term (current) use of anticoagulants Z79.01 [facility] [address], [place] [address] 54[address] Apr, Hypogonadism in male E29.1 [facility] [address], [place] [address] 4[address] Mar, Diabetes type 2, controlled E11.9 [facility] [address], [place] [address]- 2220 Mar, Hypogonadism in male E29.1 [facility] [id number] [place] [address]39- 5445 Mar, Hypogonadism in male E29.1 [facility] [id number], [place] [address]- 9697 Feb, Hypogonadism in male E29.1 [facility] [id number] [place] [address] 89341- 0751 Feb, Malaise R53.81 [facility] [id number] [place] [address] 96875- 7670 Feb, [facility] [id number] [place] [address] 63286- 2114 Feb, Diabetes type 2, controlled E11.9 [facility] [id number] [place] [address] 16443- 8608 Feb, Chronic fatigue R53.82 ; Malaise R53.81 and Moderate episode of recurrent major depressive disorder F33.1 [facility] [address], [place] [address] Jan, Diabetes type 2, controlled E11.9 [facility] [address], [place] [address]- 5006 Jan, 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.01 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 [facility] [address], [place] [address]- 9692 Dec, Diabetes type 2, controlled E11.9 and Hypertriglyceridemia E78.1 [facility] [id number], [place] [address]- 3769 Dec, Diabetes type 2, controlled E11.9 [facility] [address], [place] [address]- 5489 Dec, High risk medication use Z79.899 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 [facility] [id number] [place] [address] 90585- 9897 Dec, High risk medication use Z79.899 [facility] [id number] [place] [address] 66718- 6927 Nov, Diabetes type 2, controlled E11.9 [facility] [address] [address]- 5960 Oct, Diabetes type 2, controlled E11.9 [facility] [id number] [place] [address] 85497- 6592 September, Diabetes type 2, controlled E11.9 [facility] [id number] [place] [address] 67453- 2032 Aug, long-term (current) use of anticoagulants Z79.01 [place] [address] [address]- 6712 Aug, long-term (current) use of anticoagulants Z79.01 and Hematoma of arm, right, initial encounter S40.021A [place] [address] [address]- 3824 Aug, [facility] [id number] [place] [address]167 -7415 Aug, Cellulitis of right upper extremity L03.113 [facility] [id number] [place] [address] 39068- 7533 Aug, Diabetes type 2, controlled E11.9 [facility] [id number] [place] [address] 22202- 3144 Aug, Hammertoe of right foot M20.41 ; Hallux abducto valgus, left M20.12 and Onychomycosis B35.1 [facility] [id number] [place] [address] 94167- 3545 Aug, 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 [facility] [address], [place] [address] Aug, 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 [facility] [id number] [place] [address] 35875- 2065 Aug, 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 [facility] [address] [place] [address] -[address]49 Aug, Right shoulder pain M25.511 and Closed nondisplaced fracture of acromial end of right clavicle, initial encounter S42.034A [facility] [id number] [place] [address] 54287- 2454 Jul, Diabetes type 2, controlled E11.9 [facility] [id number] [place] [address] 72684- 1229 Jun, Diabetes type 2, controlled E11.9 and long-term (current) use of anticoagulants Z79.01 [facility] [id number] [place] [address] 84419- 4573 May, [facility] [id number] [place] [address] 68835- 7451 Apr, [facility] [id number] [place] [address] 33400- 2077 Mar, [facility] [id number] [place] [address] 88323- 7204 Feb, [facility] [id number] [place] [address] 10849- 1927 Dec, Diabetes type 2, controlled E11.9 [facility] [id number] [place] [address] 96959- 1764 Dec, [facility] [id number] [place] [address] 58030- 8139 Nov, [facility] [id number] [place] [address] 20732- 1136 Nov, Type 2 diabetes mellitus without complications E11.9 [facility] [address], [place] [address]- 4481 Oct, Type 2 diabetes mellitus without complications E11.9 [facility] [address], [place] [address]- 9252 Aug, [facility] [id number] [place] [address] 32343- 1966 Aug, Type 2 diabetes mellitus without complications E11.9 [facility] [address] [place] [address] 51749- 2995 Jun, Type 2 diabetes mellitus without complications E11.9 and 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 half-way use of antiplatelet drug Z79.02 [facility] [facility] [id number] [place] [address] 70188- 2880 May, [place] [facility] [id number] [place] [address] 66664- 1127 May, Diabetes type 2, controlled E11.9 [facility] [facility] [address], [place] [address]- 9579 Apr, Diabetes type 2, controlled E11.9 [facility] [facility] [address], [place] [address]- 0382 Mar, Diabetes type 2, controlled E11.9 ; Knee pain, right M25.561 ; Other chronic pain G89.29 and Medication monitoring encounter Z51.81 [place] [facility] [address], [place] [address]- 3036 Feb, Type 2 diabetes mellitus without complications E11.9 ; High risk medication use Z79.899 and Anxiety F41.9 [facility] [facility] [id number] [place] [address] 77798- 4548 10 Jan, 2015 Diabetes 250.00 [place] [address], [place] [address]- 7415 Dec, Diabetes 250.00 [facility] [address], [place] [address]- 7345 Nov, Diabetes 250.00 [facility] [id number] [place] [address] 432548- 0266 Nov, [facility] [address], [place] [address]- 6159 Oct, Diabetes mellitus type 1 250.01 and High risk medication use V58.69 [facility] [address], [place] [address]- 4045 Oct, [facility] [id number] [place] [address] 25978- 4881 September, [facility] [id number], [place] [address]- 3737 Aug, [facility] [id number] [place] [address] 57378- 1507 Aug, [facility] [address], [place] [address]- 6763 Jul, [facility] [address], [place] [address]- 5822 Jul, [facility] [address], [place] [address]- 5302 Jun, [facility] [address], [place] [address]- 8690 Jun, [facility] [id number], [place] [address]- 6992 Jun, [facility] [address], [place] [address]- 8004 May, [facility] [address], [place] [address]- 9669 May, [facility] [id number], [place] [address]- 2876 Apr, [facility] [place] [facility] [address] [id number] [place] [address]- 0451 Apr, [facility] [place] [facility] [address] [id number] [place] [address]- 5267 Apr, [facility] [place] [facility] [address] [id number] [place] [address]- 0306 Apr, [facility] [place] [facility] [address] [id number] [place] [address]- 0274 Apr, [facility] [place] [facility] [address] [id number] [place] [address]- 7561 Apr, [facility] [place] [facility] [address] [id number] [place] [address]- 7199 Feb, [facility] [place] [facility] [address] [id number] [place] [address]- 0055 Feb, [facility] [place] [facility] [address] [id number] [place] [address]- 6424 Feb, [facility] [place] [facility] [address] [id number] [place] [address]- 1334 Feb, [facility] [place] [facility] [address] [id number] [place] [address]- 4855 Dec, [facility] [place] [facility] [address] [id number] [place] [address]- 4916 Dec, [facility] [place] [facility] [address] [id number] [place] [address]- 7886 Nov, [facility] [place] [facility] [address] [id number] [place] [address]- 3727 Nov, [facility] [place] [facility] [address] [id number] [place] [address]- 7547 Oct, [facility] [place] [facility] [address] [id number] [place] [address]- 5489 Oct, [facility] [place] [facility] [address] [id number] [place] [address]- 3525 Oct, [facility] [place] [facility] [address] [id number] [place] [address]- 2940 Oct, [facility] [place] [facility] [address] [id number] [place] [address]- 7495 Oct, [facility] [place] [facility] [address] [id number] [place] [address]- 4125 Oct, [facility] [place] [facility] [address] [id number] [place] [address]- 6031 September, [facility] [place] [facility] [address] [id number] [place] [address]- 6248 September, [facility] [place] [facility] [address] [id number] [place] [address]- 9625 September, [facility] [place] [facility] [address] [id number] [place] [address]- 3825 September, [facility] [place] [facility] [address] [id number] [place] [address]- 1101 September, [facility] [place] [facility] [address] [id number] [place] [address]- 5958 September, [facility] [place] [facility] [address] [id number] [place] [address]- 0562 Aug, [facility] [place] [facility] [address] [id number] [place] [address]- 4416 Aug, [facility] [place] [facility] [address] [id number] [place] [address]- 5326 Aug, [facility] [place] [facility] [address] [id number] [place] [address]- 4735 Aug, [facility] [place] [facility] [address] [id number] [place] [address]- 0769 Aug, [facility] [place] [facility] [address] [id number] [place] [address]- 9389 Aug, [facility] [place] [facility] [address] [id number] [place] [address] 2545 06 Jul, 2013 [facility] [address] [id number] [place] [address]- 4123 Jul, [facility] [place] [facility] [address] [id number] [place] [address]- 7996 Jul, [facility] [address] [id number] [place] [address]- 8866 Jul, [facility] [address] [id number] [place] [address]- 2510 May, [facility] [address] [id number] [place] [address]- 1807 May, [facility] [address] [id number] [place] [address]- 7210 Apr, [facility] [address] [id number] [place] [address]- 8958 Apr, [facility] [address] [id number] [place] [address]- 5369 Apr, [facility] [address] [id number] [place] [address]- 1456 Apr, [facility] [address] [facility] [id number] [place] [address]- 9662 Apr, [facility] [place] [facility] [address] [id number] [place] [address]- 8994 Apr, [facility] [place] [facility] [address] [id number] [place] [address]- 1565 Feb, [facility] [place] [facility] [address] [id number] [place] [address]- 4684 Feb, [facility] [place] [facility] [address] [id number] [place] [address]- 2546 Feb, [facility] [place] [facility] [address] [id number] [place] [address]- 1720 Feb, [facility] [place] [facility] [address] [id number] [place] [address]- 3920 Feb, [facility] [place] [facility] [address] [id number] [place] [address]- 0438 Feb, [facility] [place] [facility] [address] [id number] [place] [address]- 6662 Feb, [facility] [place] [facility] [address] [id number] [place] [address] 2544 Feb, [facility] [address] [id number] [place] [address]- 5565 Jan, [facility] [place] [facility] [address] [id number] [place] [address]- 8504 Jan, [facility] [place] [facility] [address] [id number] [place] [address]- 1061 Jan, [facility] [place] [facility] [address] [id number] [place] [address]- 1509 Jan, [facility] [place] [facility] [address] [id number] [place] [address]- 6954 Dec, [facility] [place] [facility] [address] [id number] [place] [address]- 3530 Dec, [facility] [place] [facility] [address] [id number] [place] [address]- 3096 Dec, [facility] [place] [facility] [address] [id number] [address]- 0838 Nov, [facility] [place] [facility] [address] [id number] [place] [address]- 1241 Nov, [facility] [place] [facility] [address] [id number] [place] [address]- 6093 Oct, [facility] [place] [facility] [address] [id number] [place] [address]- 0292 September, [facility] [place] [facility] [address] [id number], [place] [address]- 2171 September, [facility] [address] [id number] [place] [address]- 7504 September, [facility] [address] [id number] [place] [address]- 9023 Aug, [facility] [address] [id number] [place] [address]- 3383 16 Aug, 2012 [facility] [address] [id number] [place] [address]- 0975 15 Aug, 2012 [facility] [address] [id number] [place] [address]- 7654 Jul, [facility] [address] [id number] [place] [address]- 4162 Jul, [facility] [id number] [address]- 5952 Jun, [facility] [address] [id number] [place] [address]- 8425 Jun, [facility] [address] [facility] [id number] [place] [address]- 4164 Jun, [facility] [address] [facility] [id number] [place] [address]- 6244 Jun, [facility] [address] [facility] [id number] [place] [address]- 1379 May, [facility] [address] [id number] [place] [address] 2541 May, [facility] [address] [id number] [place] [address]- 2649 Apr, [facility] [place] [facility] [address] [id number] [place] [address] Apr, [facility] [address] [facility] [id number] [address] Apr, [facility] [place] [facility] [address] [id number] [place] [address] Apr, [facility] [place] [facility] [address] [id number] [place] [address] Apr, [facility] [place] [facility] [address] [id number] [place] [address] Apr, [facility] [place] [facility] [address] [id number] [place] [address] Mar, [facility] [place] [facility] [address] [id number] [place] [address] Mar, [facility] [place] [facility] [address] [id number] [place] [address] Mar, [facility] [place] [facility] [address] [id number] [place] [address] Mar, [facility] [place] [facility] [address] [id number] [place] [address] Mar, [facility] [place] [facility] [address] [id number] [place] [address] Mar, [facility] [place] [facility] [address] [id number] [place] [address] Feb, [facility] [place] [facility] [address] [id number] [place] [address] Feb, [facility] [place] [facility] [address] [id number] [place] [address] Feb, [facility] [place] [facility] [address] [id number] [place] [address] Feb, [facility] [place] [facility] [address] [id number] [place] [address] Feb, [facility] [place] [facility] [address] [id number] [place] [address] Jan, [facility] [place] [facility] [address] [id number] [place] [address] Jan, [facility] [place] [facility] [address] [id number] [place] [address] Jan, [facility] [place] [facility] [address] [id number] [place] [address] Dec, [facility] [place] [facility] [address] [id number] [place] [address] Dec, [facility] [place] [facility] [address] [id number] [place] [address] Nov, [facility] [place] [facility] [address] [id number] [place] [address] Oct, [facility] [place] [facility] [address] [id number] [place] [address] Oct, [facility] [place] [facility] [address] [id number] [place] [address] Oct, [facility] [place] [facility] [address] [id number] [place] [address] Oct, [facility] [place] [facility] [address] [id number] [place] [address] Oct, [facility] [place] [facility] [address] [id number] [place] [address] September, [facility] [place] [facility] [address] [id number] [place] [address] 18 Aug, 2011 [facility] [place] [facility] [address] [id number] [place] [address] 18 Aug, 2011 [facility] [place] [facility] [address] [id number] [place] [address] 17 Aug, 2011 [facility] [place] [facility] [address] [id number] [place] [address] 16 Aug, 2011 [facility] [place] [facility] [address] [id number] [place] [address] 13 Aug, 2011 [facility] [place] [facility] [address] [id number] [place] [address] 11 Aug, 2011 [facility] [address] [id number] [place] [address] 11 Aug, 2011 [facility] [address] [id number] [place] [address] 05 Aug, 2011 [facility] [address] [id number] [place] [address] 05 Aug, 2011 [facility] [address] [id number] [place] [address] 20 Jul, 2011 [facility] [address] [id number] [place] [address] 20 Jul, 2011 [facility] [address] [id number] [place] [address] 20 Jul, 2011 [facility] [address] [id number] [place] [address] 17 Jul, 2011 [facility] [address] [id number] [place] [address] 08 Jul, 2011 [facility] [address] [id number] [place] [address] 15 Jun, 2011 [facility] [address] [id number] [place] [address] 14 Jun, 2011 [facility] [address] [id number] [place] [address] 08 Jun, 2011 [facility] [address] [id number] [place] [address] 08 Jun, 2011 [facility] [place] [facility] [address] [id number] [place] [address] 19 May, 2011 [facility] [place] [facility] [address] [id number] [place] [address] 13 May, 2011 [facility] [place] [facility] [address] [id number] [place] [address] May, [facility] [address] [id number] [place] [address] May, [facility] [place] [facility] [address] [id number] [place] [address] May, [facility] [address] [id number] [place] [address] May, [facility] [place] [facility] [address] [id number] [place] [address] May, [facility] [address] [id number] [place] [address] Apr, [facility] [place] [facility] [address] [id number] [place] [address] Apr, [facility] [place] [facility] [address] [id number] [place] [address] 6[address] Apr, [facility] [place] [facility] [address] [id number] [place] [address] Apr, [facility] [place] [facility] [address] [id number] [place] [address] Apr, [facility] [place] [facility] [address] [id number] [place] [address] Apr, [facility] [place] [facility] [address] [id number] [place] [address] 1471 Apr, [facility] [place] [facility] [address] [id number] [place] [address] Apr, [facility] [place] [facility] [address] [id number] [place] [address] Apr, [facility] [place] [facility] [address] [id number] [place] [address] 8595 Apr, [facility] [place] [facility] [address] [id number] [place] [address] Mar, [facility] [place] [facility] [address] [facility] [id number] [place] [address] 16 Mar, 2011 [facility] [address] [facility] [id number] [place] [address] Feb, [facility] [address] [facility] [id number] [place] [address] Jun, [facility] [address] [facility] [id number] [address] Apr, [facility] [address] [facility] [id number] [place] [address] Feb, [facility] [address] [facility] [id number] [place] [address] Feb, [facility] [address] [facility] [id number] [place] [address] Feb, [facility] [id number], [place] [address] Apr, [facility] [address] [facility] [id number], [place] [address] Apr, [facility] [id number], [place] [address] Mar, [facility] [address] [facility] [id number], [place] [address] Mar, [facility] [id number], [place] [address] Mar, [facility] [address] [facility] [id number], [place] [address] Feb, [facility] [address] [facility] [id number], [place] [address] Feb, [facility] [address] [facility] [id number], [place] [address] Feb, [facility] [address] [facility] [id number], [place] [address] Jan, IMMUNIZATIONS Vaccine Route Administration Date Status TESTOSTERONE (PT'S OWN) IM Intramuscular Jun 18, 2017 Administered SOCIAL HISTORY Never Assessed REASON FOR VISIT Testosterone injection - [place] Stokes PLAN OF CARE Activity Details Follow Up 2 Weeks Reason: VITAL SIGNS MEDICATIONS Unknown Medications RESULTS No Results PROCEDURES Procedure Date Ordered Result Body Site TESTOSTERONE (PT'S OWN) Jun 18, 2017 THER/PROPH/DIAG INJ, SC/IM Jun 18, 2017 INSTRUCTIONS MEDICATIONS ADMINISTERED No Known Medications [...]
--- OUTSIDE RECORDS SUMMARY | 2018-04-28 05:41 | XMS REPORT ---
Author MARLEY Barrera [facility] eClinicalWorks Address Unknown Phone Unavailable Care Team Providers Care Tare Man Name Role Phone MARLEY MCGRATH CP Unavailable Allergies, Adverse Reactions, Alerts Substance Reaction Event Type Sulfamethoxazole-Trimethoprim Info Not Available Drug Allergy Problems Problem Type Condition ICD-9 Code Onset Dates Condition Status Assessment Diabetes 250.00 Active Problem Depressive disorder, not elsewhere classified [...] Date Status Dosage Blood Glucose Test Strip [facility] 0 Test Strips twice daily December 01, 2014 as directed Topamax [facility] [place] [address]-04 50 MG Orally Twice a day 1 tablet Potassium Chloride Pati ER [facility] [place] [address]-44 10 MEQ Orally Once a day 1 tablet Metformin HCl [facility] [place] [address]-54 500 MG Orally Twice a day 1 tablet with meals Merrill [facility] [place] [address]-85 5-325 MG every 6 hrs July 26, 2014 1 tablet as needed Paroxetine HCl [facility] [place] [address]-44 40 MG Orally Once a day 1 tablet in the morning Aspirin [facility] [place] [address]-75 81 MG Orally Once a day 1 tablet Enalapril Maleate [facility] [place] [address]-17 5 MG Orally Twice a day 1 tablet Lovastatin [facility] [place] [address]-69 20 MG Orally Once a day 1 tablet with a meal Warfarin Sodium [facility] [place] [address]-82 5 MG Orally Once a day 1 tablet Amlodipine Besylate [facility] [place] [address]-02 10 MG Orally Once a day 1 tablet Clonazepam [facility] [place] [address]-77 0.5 mg Jun 29, 2014 take 1 tablet ( 0.5 mg) by oral route 2 times per day Clonazepam [facility] [place] [address]-47 1 MG Orally Twice a day Jun 29, 2014 take 1 tablet Clonidine HCl [facility] [place] [address]-13 0.2 MG Orally 2 times a day 1 tablet Procedures Procedure Coding System Code Date Office Visit, Est Pt., Level 3 CPT-4 33402 Dec 31, 2014 PROTHROMBIN TIME CPT-4 52733 Dec 31, 2014 [facility] VISIT ESTABLISHED PATIENT CPT-4 G0467 Dec 31, 2014 Vital Signs Date/Time: Dec 31, 2014 Temperature 97.5 F Weight 246 lbs Height 69 in BMI 36.32 Index Blood Pressure Diastolic 82 mmHg Blood Pressure Systolic 132 mmHg Cardiac Monitoring Heart Rate 80 bpm Results Name Result Date Reference Range Unit Abnormality Flag INR (IN HOUSE) Summary Purpose eClinicalWorks Submission
--- OUTSIDE RECORDS SUMMARY | 2018-04-28 05:41 | XMS REPORT ---
Author Author MARLEY MCGRATH Organization [employer] Address Unknown Phone Unavailable Care Team Providers Care Anime Artist Name Role Phone MARLEY MCGRATH CP Unavailable Allergies No Known Allergies Problems Problem Type Condition Code Onset Dates Condition Status Problem Diabetes type 2, controlled E11.9 Active Problem Knee pain, right M25.561 Active Problem Type 2 diabetes mellitus without complications E11.9 Active Medications Medication Code System Code Instructions Start Date End Date Status Dosage [place] [facility] [address]-83 5-325 MG every 6 hrs July 26, [address] [facility] [address]-75 1 MG Orally 3 times a day Jun 29, 2014 1 tablet Results No Known Results Summary Purpose eClinicalWorks Submission
--- OUTSIDE RECORDS SUMMARY | 2018-04-28 05:41 | XMS REPORT ---
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 Name Role Phone MARLEY MCGRATH CP Unavailable Allergies, Adverse Reactions, Alerts Substance Reaction Event Type Sulfamethoxazole-Trimethoprim Info Not Available Drug Allergy Problems Problem Type Condition Code Onset Dates Condition Status Problem Diabetes type 2, controlled E11.9 Active Problem Knee pain, right M25.561 Active Problem Type 2 diabetes mellitus without complications E11.9 Active Assessment Diabetes type 2, controlled E11.9 Active Medications Medication Code System Code Instructions Start Date End Date Status Dosage Clonidine HCl [facility] [address]-26 0.2 MG Orally 2 times a day 1 tablet Clonazepam [facility] [address]-03 1 MG Orally 3 times a day Jun 29, 2014 1 tablet Blood Glucose Test Strip [facility] 0 Test Strips twice daily December 01, 2014 as directed [place] [facility] [address]-62 5-325 MG every 6 hrs July 26, 2014 1 tablet Amlodipine Besylate [facility] [address]-87 10 MG Orally Once a day 1 tablet Aspirin [facility] [address]-96 81 MG Orally Once a day 1 tablet Actos [facility] [address]-11 30 MG Orally Once a day Feb 25, 2015 1 tablet Topamax [facility] [address]-66 50 MG Orally Twice a day 1 tablet Paroxetine HCl [facility] [address]-18 40 MG Orally Once a day 1 tablet in the morning Potassium Chloride Pati ER [facility] [address]-10 10 MEQ Orally Once a day 1 tablet Lovastatin [facility] 73766105914 20 MG TAKE 1 TABLET ONE TIME DAILY ( NEED FASTING LIPIDS WITH NEXT APPT FOR REFILL) Warfarin Sodium [facility] [address]-50 6 MG Orally Once a day 1 tablet Enalapril Maleate [facility] [address]-36 5 MG Orally Twice a day 1 tablet Metformin HCl [facility] [address]-08 500 MG Orally Twice a day 1 1/2 tablets Procedures Procedure Coding System Code Date [facility] VISIT ESTABLISHED PATIENT CPT-4 G0467 Jan 02, 2016 Office Visit, Est Pt., Level 3 CPT-4 97409 Jan 02, 2016 GLYCATED HEMOGLOBIN TEST CPT-4 00886 Jan 02, 2016 Vital Signs Date/Time: Jan 02, 2016 Cardiac Monitoring Heart Rate 80 bpm Weight 254.4 lbs Height 69 in BMI 37.56 Index Blood Pressure Diastolic 94 mmHg Blood Pressure Systolic 134 mmHg Results No Known Results Summary Purpose eClinicalWorks Submission
--- OUTSIDE RECORDS SUMMARY | 2018-04-28 05:42 | XMS REPORT ---
Author Author MARLEY MCGRATH Organization [facility] Address [address] [place] [address] Care Team Providers Care Employee Relations Administrator Name Role Phone MARLEY MCGRATH Unavailable PROBLEMS Type Condition ICD9-CM Code [id number] Code Onset Dates Condition Status SNOMED Code Problem Hammertoe of right foot M20.41 Active 722325784 Problem Moderate episode of recurrent major depressive disorder F33.1 Active 523876754 Problem Hypertriglyceridemia E78.1 Active 698853775 Problem Other chronic pain G89.29 Active 15196972 Problem Memory loss R41.3 Active 223584292 Problem 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.01 Active 1428883 Problem Chronic fatigue R53.82 Active 18310208 Problem Controlled type 2 diabetes mellitus without complication, without long -term current use of insulin E11.9 Active 443763258 Problem Chronic major depressive disorder, recurrent episode F33.9 Active 17339173 Problem Knee pain, right M25.561 Active 34493496 Problem Diabetes type 2, controlled E11.9 Active 36667668 Problem Type 2 diabetes mellitus without complications E11.9 Active 099384758 Problem Hypogonadism in male E29.1 Active 13138134 Problem half-way (current) use of anticoagulants Z79.01 Active 206729125 ALLERGIES No Information ENCOUNTERS Encounter Location Date Diagnosis [facility] [id number], [place] [address] September, Hypogonadism in male E29.1 [facility] [address], [place] [address] September, Medicare welcome exam Z00.00 [facility] [id number], [place] [address] September, Hypogonadism in male E29.1 [facility] [id number], [place] [address] Aug, Other chronic pain G89.29 ; Memory loss R41.3 ; Controlled type 2 diabetes mellitus without complication, without long-term current use of insulin E11.9 and Chronic major depressive disorder, recurrent episode F33.9 [facility] [id number], [place] [address] 11 Aug, 2017 Medicare welcome exam Z00.00 [facility] [id number] [place] [address] 36942- 9150 Aug, [facility] [id number] [place] [address]15 -5952 Aug, Hypogonadism in male E29.1 [facility] [id number] [place] [address] 67679- 7893 Jul, [facility] [id number] [place] [address] 52713- 1126 Jul, Hypogonadism in male E29.1 [facility] [id number] [place] [address] 92664- 6060 Jul, [facility] [id number] [place] [address] 34394 -0159 Jul, Hypogonadism in male E29.1 [facility] [id number] [place] [address] 66450- 6114 Jul, Medicare welcome exam Z00.00 [facility] [id number] [place] [address] 34607- 1182 Jun, Medicare welcome exam Z00.00 [facility] [id number] [place] [address] 50431 -0413 Jun, Fever R50.9 and Influenza B J10.1 [facility] [id number] [place] [address] 75803- 5165 13 Jun, 2017 Hypogonadism in male E29.1 [facility] [id number] [place] [address] 43862- 5515 Jun, Diabetes type 2, controlled E11.9 [facility] [address] [address] [address] May, Hypogonadism in male E29.1 [facility] [address] [address] May, half-way (current) use of anticoagulants Z79.01 [facility] [id number] [place] [address] 50933- 2065 Apr, Hypogonadism in male E29.1 [facility] [id number] [place] [address] 02399- 2996 Apr, [facility] [id number] [place] [address] 18282- 3276 Apr, Medicare welcome exam Z00.00 and 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 Z79.01 [facility] [address], [place] [address]- 9520 Apr, Hypogonadism in male E29.1 [facility] [id number] [place] [address] 71748- 7000 Mar, Diabetes type 2, controlled E11.9 [facility] [address], [place] [address] 7266 Mar, Hypogonadism in male E29.1 [facility] [address], [place] [address]- 5604 Mar, Hypogonadism in male E29.1 [facility] [address], [place] [address]- 0963 Feb, Hypogonadism in male E29.1 [facility] [address], [place] [address] 1666 Feb, Malaise R53.81 [facility] [id number], [place] [address] 45[address] Feb, [facility] [address], [place] [address]- 1129 Feb, Diabetes type 2, controlled E11.9 [facility] [id number] [place] [address] 15256- 5246 Feb, Chronic fatigue R53.82 ; Malaise R53.81 and Moderate episode of recurrent major depressive disorder F33.1 [address] [facility] [id number] [place] [address] 81917- 5326 Jan, Diabetes type 2, controlled E11.9 [facility] [id number] [place] [address] 69976- 3892 Jan, 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.01 and half-way (current) use of anticoagulants Z79.01 [place] [facility] [id number] [place] [address] 19721- 0799 Dec, Diabetes type 2, controlled E11.9 and Hypertriglyceridemia E78.1 [place] [facility] [id number] [place] [address] 19854- 4864 Dec, Diabetes type 2, controlled E11.9 [facility] [id number] [place] [address] 33417- 8851 Dec, High risk medication use Z79.899 and half-way (current) use of anticoagulants Z79.01 [place] [address], [place] [address]- 5071 Dec, High risk medication use Z79.899 [place] [address], [place] [address]- 2547 Nov, Diabetes type 2, controlled E11.9 [place] [facility] [id number] [place] [address] 86110- 4696 Oct, Diabetes type 2, controlled E11.9 [place] [address], [place] [address]- 2630 September, Diabetes type 2, controlled E11.9 [place] [facility] [id number] [place] [address] 15166- 3375 Aug, 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 Z79.01 [place] [address] [address]2421- 4631 Aug, Hematoma of arm, right, initial encounter S40.021A and 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 Z79.01 [place] [address] 72714- 1695 Aug, [facility] [address] 73537 -[address]86 Aug, Cellulitis of right upper extremity L03.113 [place] [address] 06968- 4168 14 Aug, 2016 Diabetes type 2, controlled E11.9 [place] [address] 62566- 2920 Aug, Hammertoe of right foot M20.41 ; Hallux abducto valgus, left M20.12 and Onychomycosis B35.1 [place] [address] 33252- 7939 Aug, half-way (current) use of anticoagulants Z79.01 [address] [place] [address] 77860- 5735 Aug, half-way (current) use of anticoagulants Z79.01 [place] [address] 39519- 5532 Aug, 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 Z79.01 [facility] [place] [address] [address] -[address]125 Aug, Right shoulder pain M25.511 and Closed nondisplaced fracture of acromial end of right clavicle, initial encounter S42.034A [place] [address] 36754- 7983 Jul, Diabetes type 2, controlled E11.9 [facility] [address], [place] [address]- 2986 Jun, Diabetes type 2, controlled E11.9 and 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 Z79.01 [facility] [address], [place] [address]- 5938 May, [facility] [id number], [place] [address]- 0434 Apr, [facility] [address] [facility] [id number] [address]- 4421 Mar, [facility] [address], [place] [address]- 2187 Feb, [facility] [address], [place] [address]- 3699 Dec, Diabetes type 2, controlled E11.9 [facility] [address], [place] [address]- 7135 Dec, [facility] [address], [place] [address]- 6375 Nov, [facility] [address], [place] [address]- 1135 Nov, Type 2 diabetes mellitus without complications E11.9 [facility] [address], [place] [address]- 0170 Oct, Type 2 diabetes mellitus without complications E11.9 [facility] [id number], [place] [address]- 6732 Aug, [facility] [address], [place] [address]- 3541 Aug, Type 2 diabetes mellitus without complications E11.9 [facility] [id number], [place] [address]- 3696 Jun, Type 2 diabetes mellitus without complications E11.9 and 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 [facility] [address], [place] [address]- 7040 May, [facility] [address], [place] [address]- 5116 May, Diabetes type 2, controlled E11.9 [facility] [address], [place] [address]- 0518 Apr, Diabetes type 2, controlled E11.9 [facility] [id number] [place] [address] 30231- 1344 Mar, Diabetes type 2, controlled E11.9 ; Knee pain, right M25.561 ; Other chronic pain G89.29 and Medication monitoring encounter Z51.81 [facility] [address], [place] [address]- 3863 Feb, Type 2 diabetes mellitus without complications E11.9 ; High risk medication use Z79.899 and Anxiety F41.9 [facility] [id number], [place] [address]- 6324 Jan, Diabetes 250.00 [facility] [id number] [place] [address] 92194- 1698 Dec, Diabetes 250.00 [facility] [id number] [place] [address] 10606- 6943 Nov, Diabetes 250.00 [facility] [address], [place] [address]- 0217 Nov, [facility] [address], [place] [address]- 2547 Oct, Diabetes mellitus type 1 250.01 and High risk medication use V58.69 [facility] [address], [place] [address]- 3674 Oct, [facility] [address], [place] [address]- 6356 September, [facility] [id number] [address]- 5239 14 Aug, 2014 [facility] [place] [facility] [address] [id number] [place] [address]- 8916 13 Aug, 2014 [facility] [place] [facility] [address] [id number] [place] [address]- 3086 Jul, [facility] [place] [facility] [address] [id number] [place] [address]- 7936 Jul, [facility] [place] [facility] [address] [id number] [place] [address]- 9373 Jun, [facility] [place] [facility] [address] [id number] [place] [address]- 3258 Jun, [facility] [place] [facility] [address] [id number] [place] [address]- 8700 Jun, [facility] [place] [facility] [address] [id number] [place] [address]- 2561 May, [facility] [place] [facility] [address] [id number] [place] [address]- 8744 May, [facility] [place] [facility] [address] [id number] [place] [address]- 0384 Apr, [facility] [place] [facility] [address] [id number] [place] [address]- 5553 Apr, [facility] [place] [facility] [address] [id number] [place] [address]- 2545 Apr, [facility] [place] [facility] [address] [id number] [place] [address]- 2540 Apr, [facility] [place] [facility] [address] [id number] [place] [address]- 0246 Apr, [facility] [place] [facility] [address] [id number] [place] [address] 2546 Apr, [facility] [place] [facility] [address] [id number] [place] [address]- 2738 Feb, [facility] [place] [facility] [address] [id number] [place] [address]- 2773 Feb, [facility] [place] [facility] [address] [id number] [place] [address]- 4791 Feb, [facility] [place] [facility] [address] [id number] [place] [address]- 8469 Feb, [facility] [place] [facility] [address] [id number] [place] [address]- 2591 Dec, [facility] [place] [facility] [address] [id number] [place] [address]- 9072 Dec, [facility] [place] [facility] [address] [id number] [place] [address]- 3623 Nov, [facility] [place] [facility] [address] [id number] [place] [address]- 2812 Nov, [facility] [place] [facility] [address] [id number] [place] [address]- 5869 Oct, [facility] [place] [facility] [address] [id number] [place] [address]- 3782 Oct, [facility] [place] [facility] [address] [id number] [place] [address]- 6151 Oct, [facility] [place] [facility] [address] [id number] [place] [address]- 5371 Oct, [facility] [place] [facility] [address] [id number] [place] [address]- 6789 Oct, [facility] [place] [facility] [address] [id number] [place] [address]- 0509 Oct, [facility] [place] [facility] [address] [id number] [place] [address]- 3261 September, [facility] [place] [facility] [address] [id number] [place] [address]- 3603 September, [facility] [place] [facility] [address] [id number] [place] [address]- 9731 September, [facility] [place] [facility] [address] [id number] [place] [address]- 2940 September, [facility] [place] [facility] [address] [id number] [place] [address]- 4837 September, [facility] [place] [facility] [address] [id number] [place] [address]- 0945 September, [facility] [place] [facility] [address] [id number] [place] [address]- 8956 Aug, [facility] [place] [facility] [address] [id number] [place] [address]- 4973 Aug, [facility] [place] [facility] [address] [id number] [place] [address]- 2597 Aug, [facility] [place] [facility] [address] [id number] [place] [address]- 4879 Aug, [facility] [place] [facility] [address] [id number] [place] [address]- 4999 Aug, [facility] [place] [facility] [address] [id number] [place] [address]- 2540 Aug, [facility] [place] [facility] [address] [id number] [place] [address]- 9145 Jul, [facility] [place] [facility] [address] [id number] [place] [address]- 5216 Jul, [facility] [place] [facility] [address] [id number] [place] [address]- 3906 Jul, [facility] [place] [facility] [address] [id number] [place] [address]- 0798 Jul, [facility] [place] [facility] [address] [id number] [place] [address]- 1039 May, [facility] [place] [facility] [address] [id number] [place] [address]- 9923 May, [facility] [place] [facility] [address] [id number] [place] [address]- 7055 Apr, 2012 [facility] [place] [facility] [address] [id number] [place] [address]- 4346 Apr, 2012 [facility] [place] [facility] [address] [id number] [place] [address]- 3785 Apr, 2012 [facility] [place] [facility] [address] [id number] [place] [address]- 4811 Apr, 2012 [facility] [place] [facility] [address] [id number] [place] [address]- 7956 Apr, 2012 [facility] [place] [facility] [address] [id number] [place] [address]- 3176 Apr, 2012 [facility] [place] [facility] [address] [id number] [place] [address]- 1570 Feb, [facility] [place] [facility] [address] [id number] [place] [address]- 3393 Feb, [facility] [place] [facility] [address] [id number] [place] 8448 Feb, [facility] [place] [facility] [address] [id number] [place]446 Feb, [facility] [place] [facility] [address] [id number] [place] [address]- 6563 Feb, [facility] [place] [facility] [address] [id number] [place] [address]- 4704 Feb, [facility] [place] [facility] [address] [id number] [place] [address]- 9837 Feb, [facility] [place] [facility] [address] [id number] [place] [address]- 9223 Feb, [facility] [place] [facility] [address] [id number] [place] [address]- 9460 Jan, [facility] [place] [facility] [address] [id number] [place] [address]- 4797 Jan, [facility] [address] [id number] [place] [address]- 8137 Jan, [facility] [address] [id number] [place] [address]- 2298 Jan, [facility] [address] [id number] [place] [address]- 1112 Dec, [facility] [place] [facility] [address] [id number] [place] [address]- 6703 Dec, [facility] [address] [id number] [place] [address]- 6645 Dec, [facility] [address] [id number] [place] [address]- 6971 Nov, [facility] [address] [id number] [place] [address]- 0253 Nov, [facility] [address] [id number] [place] [address]- 0585 Oct, [facility] [address] [id number] [place] [address]- 8393 September, [facility] [place] [facility] [address] [id number] [place] [address]- 0269 September, [facility] [address] [id number], [place] [address]- 0766 September, [facility] [place] [facility] [address] [id number], [place] [address]- 9388 Aug, [facility] [place] [facility] [address] [id number] [place] [address]- 7839 Aug, [facility] [place] [facility] [address] [id number], [place] [address]- 9917 Aug, [facility] [place] [facility] [address] [id number] [place] [address]- 7589 Jul, [facility] [place] [facility] [address] [id number] [place] [address]- 6879 Jul, [facility] [address] [id number] [place] [address]- 0446 Jun, [facility] [place] [facility] [address] [id number] [place] [address] 2546 Jun, [facility] [address] [id number] [place] [address] 2546 Jun, [facility] [address] [id number] [place] [address]- 2546 Jun, [facility] [address] [id number] [place] [address]- 0916 May, [facility] [address] [id number] [place] [address]- 1826 May, [facility] [address] [id number] [place] [address]- 4906 Apr, [facility] [address] [id number] [place] [address] 2546 Apr, [facility] [address] [id number] [place] [address]- 1136 Apr, [facility] [address] [facility] [id number] [place] [address]- 8036 Apr, [facility] [address] [id number] [place] [address]- 2546 Apr, [facility] [address] [id number] [place] [address]- 2546 Apr, [facility] [place] [facility] [address] [id number] [place] [address] Mar, [facility] [place] [facility] [address] [id number] [place] [address] Mar, [facility] [address] [id number] [place] [address] Mar, [facility] [place] [facility] [address] [id number] [place] [address] Mar, [facility] [place] [facility] [address] [id number] [place] [address] Mar, [facility] [place] [facility] [address] [id number] [place] [address] Mar, [facility] [place] [facility] [address] [id number] [place] [address] Feb, [facility] [place] [facility] [address] [id number] [place] [address] Feb, [facility] [place] [facility] [address] [id number] [place] [address] Feb, [facility] [place] [facility] [address] [id number] [place] [address] Feb, [facility] [place] [facility] [address] [id number] [place] [address] Feb, [facility] [place] [facility] [address] [id number] [place] [address] Jan, [facility] [place] [facility] [address] [id number] [place] [address] Jan, [facility] [place] [facility] [address] [id number] [place] [address] Jan, [facility] [place] [facility] [address] [id number] [place] [address] Dec, [facility] [place] [facility] [address] [id number] [place] [address] Dec, [facility] [place] [facility] [address] [id number] [place] [address] Nov, [facility] [place] [facility] [address] [id number] [place] [address] Oct, [facility] [place] [facility] [address] [id number] [place] [address] Oct, [facility] [place] [facility] [address] [id number] [place] [address] Oct, [facility] [place] [facility] [address] [id number] [place] [address] Oct, [facility] [place] [facility] [address] [id number] [place] [address] Oct, [facility] [place] [facility] [address] [id number] [place] [address] September, [facility] [place] [facility] [address] [id number] [place] [address] Aug, [facility] [place] [facility] [address] [id number] [place] [address] 18 Aug, 2011 [facility] [address] [id number] [place] [address] 17 Aug, 2011 [facility] [place] [facility] [address] [id number] [place] [address] 16 Aug, 2011 [facility] [place] [facility] [address] [id number] [place] [address] 13 Aug, 2011 [facility] [place] [facility] [address] [id number] [place] [address] Aug, [facility] [place] [facility] [address] [id number] [place] [address] Aug, [facility] [place] [facility] [address] [id number] [place] [address]- [address] 05 Aug, 2011 [facility] [place] [facility] [address] [id number] [place] [address]- [address] 05 Aug, 2011 [facility] [place] [facility] [address] [id number] [place] [address] Jul, [facility] [place] [facility] [address] [id number] [place] [address] Jul, [facility] [place] [facility] [address] [id number] [place] [address] 20 Jul, 2011 [facility] [place] [facility] [address] [id number] [place] [address] 17 Jul, 2011 [facility] [place] [facility] [address] [id number] [place] [address] 08 Jul, 2011 [facility] [place] [facility] [address] [id number] [place] [address] 15 Jun, 2011 [facility] [place] [facility] [address] [id number] [place] [address]- [address] 14 Jun, 2011 [facility] [place] [facility] [address] [id number] [place] [address] 08 Jun, 2011 [facility] [place] [facility] [address] [id number] [place] [address] 08 Jun, 2011 [facility] [address] [id number] [place] [address] May, [facility] [place] [facility] [address] [id number] [place] [address] May, [facility] [place] [facility] [address] [id number] [place] [address] May, [facility] [place] [facility] [address] [id number] [place] [address] May, [facility] [place] [facility] [address] [id number] [place] [address] May, [facility] [place] [facility] [address] [id number] [place] [address] May, [facility] [place] [facility] [address] [id number] [place] [address] May, [facility] [place] [facility] [address] [id number] [place] [address] Apr, [facility] [place] [facility] [address] [id number], [place] [address] Apr, [facility] [place] [facility] [address] [id number] [place] [address] Apr, [facility] [place] [facility] [address] [id number] [place] [address] Apr, [facility] [place] [facility] [address] [id number] [place] [address] Apr, [facility] [place] [facility] [address] [id number] [place] [address] Apr, [facility] [place] [facility] [address] [id number] [place] [address] Apr, [facility] [place] [facility] [address] [id number] [place] [address] Apr, [facility] [place] [facility] [address] [id number] [place] [address] Apr, [facility] [place] [facility] [address] [id number] [place] [address] Apr, [facility] [place] [facility] [address] [id number] [place] [address] Mar, [facility] [place] [facility] [address] [id number] [place] [address] Mar, [facility] [place] [facility] [address] [id number], [place] [address] Feb, [facility] [place] [facility] [address] [id number], [place] [address] Jun, [facility] [place] [facility] [address] [id number] [place] [address] Apr, [facility] [place] [facility] [address] [id number] [place] [address] Feb, [facility] [place] [facility] [address] [id number] [place] [address] Feb, [facility] [place] [facility] [address] [id number], [place] [address] Feb, [facility] [id number] [place] [address] Apr, [facility] [id number], [place] [address] Apr, [facility] [id number], [place] [address] Mar, [facility] [id number], [place] [address] Mar, [facility] [id number], [place] [address] Mar, [facility] [id number], [place] [address] Feb, [facility] [id number], [place] [address] Feb, [facility] [id number], [place] [address] Feb, [facility] [address] [id number], [place] [address] Jan, IMMUNIZATIONS Vaccine Route Administration Date Status TESTOSTERONE (PT'S OWN) IM Intramuscular Apr 09, 2017 Administered SOCIAL HISTORY Never Assessed REASON FOR VISIT Testosterone injection-Urban PATIÑO PLAN OF CARE Activity Details Follow Up 2 Weeks Reason:injection VITAL SIGNS MEDICATIONS Unknown Medications RESULTS No Results PROCEDURES Procedure Date Ordered Result Body Site TESTOSTERONE (PT'S OWN) Apr 09, 2017 THER/PROPH/DIAG INJ, SC/IM Apr 09, 2017 INSTRUCTIONS MEDICATIONS ADMINISTERED No Known [...]
--- OUTSIDE RECORDS SUMMARY | 2018-04-28 05:42 | XMS REPORT ---
Author Author MARLEY MCGRATH [facility] Address [address] [place] [address] Care Team Providers Care [employer] Installer Name Role Phone MARLEY MCGRATH Unavailable PROBLEMS Type Condition ICD9-CM Code DNS03-MN Code Onset Dates Condition Status SNOMED Code Problem Type 2 diabetes mellitus without complications E11.9 Active 704812858 Problem Diabetes type 2, controlled E11.9 Active 88183384 Problem Knee pain, right M25.561 Active 82273894 ALLERGIES Unknown Allergies SOCIAL HISTORY No smoking Hx information available PLAN OF CARE VITAL SIGNS MEDICATIONS Medication Instructions Dosage Frequency Start Date End Date Duration Status Jupiter 5-325 MG 1 tablet 6h Apr, Active Clonazepam 1 MG Orally 3 times a day 1 tablet 8h Jun, Active RESULTS No Results PROCEDURES No Known procedures IMMUNIZATIONS No Known Immunizations
--- OUTSIDE RECORDS SUMMARY | 2018-04-28 05:42 | XMS REPORT ---
Author Author MARLEY MCGRATH Organization [facility] Address [address] [place] [address] Care Team Providers Care [employer] Faculty Member Name Role Phone MARLEY MCGRATH Unavailable PROBLEMS Type Condition ICD9-CM Code [id number] Code Onset Dates Condition Status SNOMED Code Problem Hammertoe of right foot M20.41 Active 858589119 Problem Moderate episode of recurrent major depressive disorder F33.1 Active 965255743 Problem Hypertriglyceridemia E78.1 Active 395000356 Problem Other chronic pain G89.29 Active 28937084 Problem Memory loss R41.3 Active 188023153 Problem 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.01 Active 5678668 Problem Chronic fatigue R53.82 Active 88147368 Problem Controlled type 2 diabetes mellitus without complication, without long -term current use of insulin E11.9 Active 554532598 Problem Chronic major depressive disorder, recurrent episode F33.9 Active 49778193 Problem Knee pain, right M25.561 Active 25054621 Problem Diabetes type 2, controlled E11.9 Active 01491006 Problem Type 2 diabetes mellitus without complications E11.9 Active 338299450 Problem Hypogonadism in male E29.1 Active 38110081 Problem detention (current) use of anticoagulants Z79.01 Active 711928853 ALLERGIES Substance Reaction Event Type Date Status Sulfamethoxazole-Trimethoprim Unknown Drug Allergy Apr, Active ENCOUNTERS Encounter Location Date Diagnosis [facility] [id number] [address] September, Hypogonadism in male E29.1 [facility] [address] [address] September, Medicare welcome exam Z00.00 [facility] [id number] [address] September, Hypogonadism in male E29.1 [facility] [id number] [address] Aug, Other chronic pain G89.29 ; Memory loss R41.3 ; Controlled type 2 diabetes mellitus without complication, without long-term current use of insulin E11.9 and Chronic major depressive disorder, recurrent episode F33.9 [facility] [id number] [place] [address] 75949- 6295 Aug, Medicare welcome exam Z00.00 [facility] [id number] [place] [address] 22125- 8070 Aug, [facility] [id number] [place] [address]68 -6280 Aug, Hypogonadism in male E29.1 [facility] [id number] [place] [address] 89037- 6750 Jul, [facility] [address] [address]- [address] Jul, Hypogonadism in male E29.1 [facility] [id number] [place] [address] 13467- 4513 Jul, [facility] [id number] [place] [address]504 -5422 Jul, Hypogonadism in male E29.1 [facility] [id number] [place] [address] 04345- 5287 Jul, Medicare welcome exam Z00.00 [facility] [id number] [place] [address] 87422- 5701 Jun, Medicare welcome exam Z00.00 [facility] [id number] [place] [address] 25084 -9523 19 Jun, 2017 Fever R50.9 and Influenza B J10.1 [facility] [id number] [address] 13 Jun, 2017 Hypogonadism in male E29.1 [facility] [address] [address] Jun, Diabetes type 2, controlled E11.9 [facility] [address] [address] 2546 May, Hypogonadism in male E29.1 [facility] [address] [address] 2546 May, 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.01 [facility] [address] [address] 2546 Apr, Hypogonadism in male E29.1 [facility] [id number] [address] 2546 Apr, [facility] [address] [address]- 8[address] Apr, Medicare welcome exam Z00.00 and 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.01 [facility] [address] [address] 56[address] Apr, Hypogonadism in male E29.1 [facility] [address] [address] 00[address] Mar, Diabetes type 2, controlled E11.9 [facility] [address] [address] 1676 Mar, Hypogonadism in male E29.1 [facility] [address] [address]- 8074 Mar, Hypogonadism in male E29.1 [facility] [address] [address]- 0936 Feb, Hypogonadism in male E29.1 [facility] [address] [address]- 1002 Feb, Malaise R53.81 [facility] [id number] [place] [address] 95759- 8218 Feb, [place] [id number] [place] [address] 24597- 7676 Feb, Diabetes type 2, controlled E11.9 [facility] [id number] [place] [address] 78461- 4161 Feb, Chronic fatigue R53.82 ; Malaise R53.81 and Moderate episode of recurrent major depressive disorder F33.1 [place] [id number] [place] [address] 36194- 9835 Jan, Diabetes type 2, controlled E11.9 [place] [id number] [place] [address] 16623- 3332 Jan, 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.01 and 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.01 [place] [id number] [place] [address] 45369- 7904 Dec, Diabetes type 2, controlled E11.9 and Hypertriglyceridemia E78.1 [place] [id number] [place] [address] 91751- 6359 Dec, Diabetes type 2, controlled E11.9 [place] [address] [place] [address] 66087- 7540 Dec, High risk medication use Z79.899 and 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.01 [place] [address] [place] [address] 13414- 9434 Dec, High risk medication use Z79.899 [place] [address] [place] [address] 19048- 9122 Nov, Diabetes type 2, controlled E11.9 [place] [address] [place] [address] 98962- 5714 Oct, Diabetes type 2, controlled E11.9 [place] [address] [place] [address] 90764- 2849 September, Diabetes type 2, controlled E11.9 [place] [id number] [place] [address] 25075- 6833 Aug, 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.01 [place] [address] 36651- 4693 Aug, 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.01 and Hematoma of arm, right, initial encounter S40.021A [place] [address] 83268- 4312 18 Aug, 2016 [facility] [place] [address] [address]35 -[address]49 18 Aug, 2016 Cellulitis of right upper extremity L03.113 [place] [address] 62996- 9119 14 Aug, 2016 Diabetes type 2, controlled E11.9 [place] [address] 18126- 4638 Aug, Hammertoe of right foot M20.41 ; Hallux abducto valgus, left M20.12 and Onychomycosis B35.1 [place] [address] 13999- 7675 Aug, detention (current) use of anticoagulants Z79.01 [place] [address] 37597- 7457 Aug, 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.01 [place] [id number] [place] [address] 25484- 8587 Aug, detention (current) use of anticoagulants Z79.01 [facility] [place] [place] [address] 99390 -2443 Aug, Right shoulder pain M25.511 and Closed nondisplaced fracture of acromial end of right clavicle, initial encounter S42.034A [place] [address] 01883- 9432 Jul, Diabetes type 2, controlled E11.9 [facility] [address] [address]- 4744 Jun, Diabetes type 2, controlled E11.9 and detention (current) use of anticoagulants Z79.01 [facility] [address] [address]- 5404 May, [facility] [id number] [place] [address] 71856- 6858 Apr, [facility] [id number] [place] [address] 64100- 6288 Mar, [facility] [id number] [place] [address] 02917- 9075 Feb, [facility] [id number] [place] [address] 86157- 5452 Dec, Diabetes type 2, controlled E11.9 [facility] [address] [address]- 9508 Dec, [facility] [address] [address]- 6108 Nov, [facility] [address] [address]- 6845 Nov, Type 2 diabetes mellitus without complications E11.9 [facility] [address] [address]- 2999 Oct, Type 2 diabetes mellitus without complications E11.9 [facility] [address] [address]- 0235 Aug, [facility] [address] 2066 Aug, Type 2 diabetes mellitus without complications E11.9 [facility] [address] [address]- 2708 Jun, Type 2 diabetes mellitus without complications E11.9 and 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 senior living use of antiplatelet drug Z79.02 [facility] [address] [address]- 2571 May, [facility] [id number] [place] [address] 04843- 2548 May, Diabetes type 2, controlled E11.9 [facility] [id number] [place] [address] 92790- 2790 Apr, Diabetes type 2, controlled E11.9 [place] [address] [place] [address] 26775- 7028 Mar, Diabetes type 2, controlled E11.9 ; Knee pain, right M25.561 ; Other chronic pain G89.29 and Medication monitoring encounter Z51.81 [place] [id number] [place] [address] 20493- 5088 Feb, Type 2 diabetes mellitus without complications E11.9 ; High risk medication use Z79.899 and Anxiety F41.9 [place] [id number] [place] [address] 37666- 5457 Jan, Diabetes 250.00 [place] [id number] [place] [address] 74872- 7206 Dec, Diabetes 250.00 [place] [id number] [place] [address] 04515 2541 Nov, Diabetes 250.00 [place] [id number] [place] [address] 95409 2546 Nov, [facility] [id number] [place] [address] 75693 2545 Oct, Diabetes mellitus type 1 250.01 and High risk medication use V58.69 [facility] [address] [address]- 2546 Oct, [place] [id number] [place] [address] 39916- 3528 September, [facility] [place] [facility] [address] [id number] [place] [address]- 4862 Aug, [facility] [place] [facility] [address] [id number] [place] [address]- 3573 Aug, [facility] [place] [facility] [address] [id number] [place] [address]- 2231 Jul, [facility] [place] [facility] [address] [id number] [place] [address]- 7980 Jul, [facility] [place] [facility] [address] [id number] [place] [address]- 1218 Jun, [facility] [place] [facility] [address] [id number] [place] [address]- 2387 Jun, [facility] [place] [facility] [address] [id number] [place] [address]- 7509 Jun, [facility] [place] [facility] [address] [id number] [place] [address]- 9372 May, [facility] [place] [facility] [address] [id number] [place] [address]- 9279 May, [facility] [place] [facility] [address] [id number] [place] [address]- 2957 Apr, [facility] [place] [facility] [address] [id number] [place] [address]- 3109 Apr, [facility] [place] [facility] [address] [id number] [place] [address]- 1210 Apr, [facility] [place] [facility] [address] [id number] [place] [address]- 0501 Apr, [facility] [place] [facility] [address] [id number] [place] [address]- 8720 Apr, [facility] [place] [facility] [address] [id number] [place] [address]- 7117 Apr, [facility] [place] [facility] [address] [id number] [place] [address]- 7921 Feb, [facility] [place] [facility] [address] [id number] [place] [address]- 2971 Feb, [facility] [place] [facility] [address] [id number] [place] [address]- 7402 Feb, [facility] [place] [facility] [address] [id number] [place] [address]- 0374 Feb, [facility] [place] [facility] [address] [id number] [place] [address]- 5730 Dec, [facility] [place] [facility] [address] [id number] [place] [address]- 1434 Dec, [facility] [place] [facility] [address] [id number] [place] [address]- 8699 Nov, [facility] [place] [facility] [address] [id number] [place] [address]- 5226 Nov, [facility] [place] [facility] [address] [id number] [place] [address]- 6395 Oct, [facility] [place] [facility] [address] [id number] [place] [address]- 3685 Oct, [facility] [place] [facility] [address] [id number] [place] [address]- 2193 Oct, [facility] [place] [facility] [address] [id number] [place] [address]- 9352 Oct, [facility] [place] [facility] [address] [id number] [place] [address]- 5561 Oct, [facility] [place] [facility] [address] [id number] [place] [address]- 3323 Oct, [facility] [place] [facility] [address] [id number] [place] [address]- 7262 September, [facility] [place] [facility] [address] [id number] [place] [address]- 8811 September, [facility] [place] [facility] [address] [id number] [place] [address]- 9106 September, [facility] [place] [facility] [address] [id number] [place] [address]- 3859 September, [facility] [place] [facility] [address] [id number] [place] [address]- 8296 September, [facility] [place] [facility] [address] [id number] [place] [address]- 4260 September, [facility] [place] [facility] [address] [id number] [place] [address]- 9067 Aug, [facility] [place] [facility] [address] [id number] [place] [address]- 8312 Aug, [facility] [place] [facility] [address] [id number] [place] [address]- 9033 Aug, [facility] [place] [facility] [address] [id number] [place] [address]- 5501 Aug, [facility] [place] [facility] [address] [id number] [place] [address]- 7427 Aug, [facility] [place] [facility] [address] [id number] [place] [address]- 6409 Aug, [facility] [place] [facility] [address] [id number] [place] [address]- 8294 Jul, [facility] [place] [facility] [address] [id number] [place] [address]- 7581 Jul, [facility] [place] [facility] [address] [id number] [place] [address]- 4163 Jul, [facility] [place] [facility] [address] [id number] [place] [address]- 6140 Jul, [facility] [place] [facility] [address] [id number] [place] [address]- 9723 May, [facility] [place] [facility] [address] [id number] [address]- 4279 May, [facility] [address] [id number] [place] [address]- 5006 Apr, [facility] [place] [facility] [address] [id number] [place] [address]- 4903 Apr, [facility] [place] [facility] [address] [id number] [place] [address]- 2814 Apr, [facility] [place] [facility] [address] [id number] [place] [address]- 0685 Apr, [facility] [place] [facility] [address] [id number] [place] [address]- 0833 Apr, [facility] [place] [facility] [address] [id number] [place]227 Apr, [facility] [place] [facility] [address] [id number] [address]- 0838 Feb, [facility] [place] [facility] [address] [id number] [address]- 0960 Feb, [facility] [place] [facility] [address] [id number] [address]- 7008 Feb, [facility] [place] [facility] [address] [id number] [address]- 1521 Feb, [facility] [place] [facility] [address] [id number] [address]- 9551 Feb, [facility] [place] [facility] [address] [id number] [address]- 7243 Feb, [facility] [place] [facility] [address] [id number] [address]- 8500 Feb, [facility] [place] [facility] [address] [id number] [address]- 8902 Feb, [facility] [place] [facility] [address] [id number] [address]- 3323 Jan, [facility] [place] [facility] [address] [id number] [place] [address]- 4893 Jan, [facility] [address] [id number] [place] [address]- 1944 Jan, [facility] [address] [id number] [place] [address] 2546 Jan, [facility] [address] [id number] [place] [address]- 4068 Dec, [facility] [address] [id number] [place] [address]- 0952 Dec, [facility] [address] [id number] [place] [address]- 4840 Dec, [facility] [address] [id number] [place] [address]- 4495 Nov, [facility] [address] [id number] [place] [address]- 5800 Nov, [facility] [address] [id number] [place] [address]- 3040 Oct, [facility] [address] [id number] [place] [address]- 5069 September, [facility] [address] [id number] [place] [address]- 0783 September, [facility] [address] [id number] [place] [address]- 2736 September, [facility] [address] [id number] [place] [address]- 0359 Aug, [facility] [place] [facility] [address] [id number] [place] [address]- 4899 Aug, [facility] [address] [id number] [place] [address]- 2546 Aug, [facility] [address] [id number] [place] [address]- 2532 Jul, [facility] [place] [facility] [address] [id number] [place] [address]- 2054 Jul, [facility] [place] [facility] [address] [id number] [place] [address]- 7546 Jun, [facility] [place] [facility] [address] [id number] [place] [address]- 7536 Jun, [facility] [place] [facility] [address] [id number] [place] [address]- 0216 Jun, [facility] [place] [facility] [address] [id number] [place] [address]- 2816 Jun, [facility] [place] [facility] [address] [id number] [place] [address]- 0562 May, [facility] [place] [facility] [address] [id number] [place] [address]- 0569 May, [facility] [place] [facility] [address] [id number] [place] [address]- 4185 Apr, [facility] [place] [facility] [address] [id number] [place] [address]- 8934 Apr, [facility] [place] [facility] [address] [id number] [place] [address]- 9518 Apr, [facility] [place] [facility] [address] [id number] [place] [address]- 4882 Apr, [facility] [place] [facility] [address] [id number] [place] [address]- 2386 Apr, [facility] [place] [facility] [address] [id number] [place] [address]- 9136 Apr, [facility] [place] [facility] [address] [id number] [place] [address]- 1215 Mar, [facility] [place] [facility] [address] [id number] [place] [address]- 1386 Mar, [facility] [place] [facility] [address] [id number] [place] [address]- 4052 Mar, [facility] [place] [facility] [address] [id number] [place] [address]- 4384 Mar, [facility] [place] [facility] [address] [id number] [place] [address] 2546 Mar, [facility] [place] [facility] [address] [id number] [place] [address]- 3667 Mar, [facility] [place] [facility] [address] [id number] [place] [address] Feb, [facility] [place] [facility] [address] [id number] [place] [address] Feb, [facility] [place] [facility] [address] [id number] [place] [address] Feb, [facility] [place] [facility] [address] [id number] [place] [address] Feb, [facility] [place] [facility] [address] [id number] [place] [address] Feb, [facility] [place] [facility] [address] [id number] [place] [address] Jan, [facility] [place] [facility] [address] [id number] [place] [address] Jan, [facility] [place] [facility] [address] [id number] [place] [address] Jan, [facility] [place] [facility] [address] [id number] [place] [address] Dec, [facility] [place] [facility] [address] [id number] [place] [address] Dec, [facility] [place] [facility] [address] [id number] [place] [address] Nov, [facility] [place] [facility] [address] [id number] [place] [address] Oct, [facility] [place] [facility] [address] [id number] [place] [address] Oct, [facility] [place] [facility] [address] [id number] [place] [address] Oct, [facility] [place] [facility] [address] [id number] [place] [address] Oct, [facility] [place] [facility] [address] [id number] [place] [address] Oct, [facility] [place] [facility] [address] [id number] [place] [address] September, [facility] [place] [facility] [address] [id number] [place] [address] 18 Aug, 2011 [facility] [place] [facility] [address] [id number] [place] [address] 18 Aug, 2011 [facility] [place] [facility] [address] [id number] [place] [address]- [address] 17 Aug, 2011 [facility] [place] [facility] [address] [id number] [place] [address]- [address] 16 Aug, 2011 [facility] [place] [facility] [address] [id number] [place] [address] 13 Aug, 2011 [facility] [place] [facility] [address] [id number] [place] [address] 11 Aug, 2011 [facility] [place] [facility] [address] [id number] [place] [address] 11 Aug, 2011 [facility] [place] [facility] [address] [id number] [place] [address] 05 Aug, 2011 [facility] [place] [facility] [address] [id number] [place] [address] 05 Aug, 2011 [facility] [place] [facility] [address] [id number] [place] [address] Jul, [facility] [place] [facility] [address] [id number] [place] [address]- [address] 20 Jul, 2011 [facility] [address] [id number] [place] [address]- [address] 20 Jul, 2011 [facility] [place] [facility] [address] [id number] [place] [address]- [address] 17 Jul, 2011 [facility] [place] [facility] [address] [id number] [place] [address]- [address] 08 Jul, 2011 [facility] [place] [facility] [address] [id number] [place] [address] 15 Jun, 2011 [facility] [place] [facility] [address] [id number] [place] [address] 14 Jun, 2011 [facility] [place] [facility] [address] [id number] [place] [address] 08 Jun, 2011 [facility] [address] [id number] [place] [address] 08 Jun, 2011 [facility] [place] [facility] [address] [id number] [place] [address] May, [facility] [place] [facility] [address] [id number] [place] [address] 13 May, 2011 [facility] [place] [facility] [address] [facility] [id number] [place] [address] May, [facility] [place] [facility] [address] [id number] [place] [id number] 08 May, 2011 [facility] [place] [facility] [address] [id number] [place] [address] 06 May, 2011 [facility] [place] [facility] [address] [id number] [place] [address] 04 May, 2011 [facility] [place] [facility] [address] [id number] [place] [address] 03 May, 2011 [facility] [place] [facility] [address] [id number] [place] [address] Apr, [facility] [place] [facility] [address] [id number] [place] [address] 13 Apr, 2011 [facility] [place] [facility] [address] [id number] [place] [address] Apr, [facility] [place] [facility] [address] [id number] [place] [address] Apr, [facility] [place] [facility] [address] [id number] [place] [address] Apr, [facility] [place] [facility] [address] [id number] [place] [address] Apr, [facility] [place] [facility] [address] [id number] [place] [address] Apr, [facility] [place] [facility] [address] [id number] [place] [address] Apr, [facility] [place] [facility] [address] [id number] [place] [address] Apr, [facility] [place] [facility] [address] [id number] [place] [address] Apr, [facility] [place] [facility] [address] [id number] [place] [address] Mar, [facility] [place] [facility] [address] [id number] [place] [address] Mar, [facility] [place] [facility] [address] [id number] [place] [address] Feb, [facility] [place] [facility] [address] [id number] [place] [address] Jun, [facility] [place] [facility] [address] [id number] [place] [address] Apr, [facility] [place] [facility] [address] [id number] [place] [address] Feb, [facility] [place] [facility] [address] [id number] [address] Feb, [facility] [address] [facility] [id number] [place] [address] Feb, [facility] [address] [facility] [id number] [place] [address] Apr, [facility] [address] [facility] [id number] [place] [address] Apr, [facility] [address] [facility] [id number] [place] [address] Mar, [facility] [address] [facility] [id number] [place] [address] Mar, [facility] [address] [facility] [id number] [place] [address] Mar, [facility] [id number] [address] Feb, [facility] [address] [facility] [id number] [place] [address] Feb, [facility] [address] [facility] [id number] [place] [address] Feb, [facility] [address] [id number] [address] Jan, IMMUNIZATIONS No Known Immunizations SOCIAL HISTORY Never Assessed REASON FOR VISIT medicare physical -Shilyudmila PATIÑO PLAN OF CARE Activity Details Follow Up annually for preventive care, sooner for chronic health maintenance Reason: VITAL SIGNS Height 69 in 2017-04-12 Weight 254.2 lbs 2017-04-12 Temperature 98.3 degrees Fahrenheit 2017-04-12 Heart Rate 76 bpm 2017-04-12 Respiratory Rate 20 2017-04-12 BMI 37.53 kg/m2 2017-04-12 Blood pressure systolic 110 mmHg 2017-04-12 Blood pressure diastolic 62 mmHg 2017-04-12 MEDICATIONS Medication Instructions Dosage Frequency Start Date End Date Duration Status Topamax 50 mg 1 tablet 12h 90 Active Aspirin 81 MG Orally Once a day 1 tablet 24h Active Actos 45 MG Orally Once a day 1 tablet 24h 23 Feb, 2015 60 days Active Lovastatin 20 mg 1 tablet with a meal 24h Active Clonazepam 1 MG Orally 3 times a day 1 tablet 8h 24 Jun, 2014 28 days Active Warfarin Sodium 6 MG TAKE 1 TABLET EVERY DAY 90 Active Enalapril Maleate 5 MG TAKE 1 TABLET TWICE DAILY (APPOINTMENT NEEDED FOR FURTHER REFILLS) 90 Active Paroxetine HCl 40 MG TAKE 1 TABLET ONE TIME DAILY IN THE MORNING 90 Active [place] 5-325 MG Orally every 6 hrs 1 tablet 6h Apr, 28 days Active Carvedilol 3.125 MG Orally 2 times a day 1 tablet 12h Not-Taking Potassium Chloride Pati ER 10 MEQ 1 tablet with food 24h Active Blood Glucose Test Strip Test Strips as directed Nov, Active Depo-Testosterone 100 MG/ML Intramuscular every 2 weeks 1 ml Feb, Active Metformin HCl 500 MG TAKE 1 AND 1/2 TABLETS TWICE DAILY 90 Active Clonidine HCl 0.2 MG 1 tablet 12h 90 Active Amlodipine Besylate 10 MG TAKE 1 TABLET ONE TIME DAILY (APPOINTMENT NEEDED FOR FURTHER REFILLS) 90 Active RESULTS No Results PROCEDURES Procedure Date Ordered Result Body Site INIT PREV PE LTD DUR 12 MOS MCR Apr 12, 2017 ANNUAL [facility]LEY VST; PERSLORENE PPS INIT Apr 12, 2017 INSTRUCTIONS MEDICATIONS ADMINISTERED No Known [...]
--- OUTSIDE RECORDS SUMMARY | 2018-04-28 05:43 | XMS REPORT ---
Author Author MARLEY MCGRATH Organization [facility] Address [address] [place] [address] Care Team Providers Care Chief Digital Officer Name Role Phone MARLEY MCGRATH Unavailable PROBLEMS Type Condition ICD9-CM Code YGW55-RD Code Onset Dates Condition Status SNOMED Code Problem Hammertoe of right foot M20.41 Active 564678424 Problem Moderate episode of recurrent major depressive disorder F33.1 Active 785856224 Problem Hypertriglyceridemia E78.1 Active 554250442 Problem Other chronic pain G89.29 Active 14642726 Problem Memory loss R41.3 Active 403179859 Problem 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.01 Active 4225881 Problem Chronic fatigue R53.82 Active 72631417 Problem Controlled type 2 diabetes mellitus without complication, without long -term current use of insulin E11.9 Active 013188989 Problem Chronic major depressive disorder, recurrent episode F33.9 Active 48942713 Problem Knee pain, right M25.561 Active 19482185 Problem Diabetes type 2, controlled E11.9 Active 01459130 Problem Type 2 diabetes mellitus without complications E11.9 Active 383801408 Problem Hypogonadism in male E29.1 Active 31288463 Problem halfway (current) use of anticoagulants Z79.01 Active [id number] ALLERGIES No Information ENCOUNTERS Encounter Location Date Diagnosis [facility] [id number] [address] September, Hypogonadism in male E29.1 [facility] [address] [address] September, Medicare welcome exam Z00.00 [facility] [id number] [address] September, Hypogonadism in male E29.1 [facility] [id number] [address] Aug, Other chronic pain G89.29 ; Memory loss R41.3 ; Controlled type 2 diabetes mellitus without complication, without long-term current use of insulin E11.9 and Chronic major depressive disorder, recurrent episode F33.9 [facility] [id number] [address] 11 Aug, 2017 Medicare welcome exam Z00.00 [facility] [id number] [place] [address] 39969- 2687 Aug, [facility] [id number] [place] [address] 97324 -8385 Aug, Hypogonadism in male E29.1 [facility] [id number] [place] [address] 49093- 8091 Jul, [facility] [id number] [place] [address] 70269- 6329 Jul, Hypogonadism in male E29.1 [facility] [id number] [place] [address] 08681- 9168 Jul, [facility] [id number] [place] [address] 88437 -5484 Jul, Hypogonadism in male E29.1 [facility] [id number] [place] [address] 69653- 2671 Jul, Medicare welcome exam Z00.00 [facility] [id number] [place] [address] 14089- 4174 Jun, Medicare welcome exam Z00.00 [facility] [id number] [place] [address] 88348 -8220 Jun, Fever R50.9 and Influenza B J10.1 [facility] [id number] [place] [address] 16013- 2708 13 Jun, 2017 Hypogonadism in male E29.1 [facility] [id number] [place] [address] 88157- 9795 Jun, Diabetes type 2, controlled E11.9 [facility] [address] [address] [address] May, Hypogonadism in male E29.1 [facility] [address] [address] [address] May, halfway (current) use of anticoagulants Z79.01 [facility] [id number] [place] [address] 45665- 2796 Apr, Hypogonadism in male E29.1 [facility] [id number] [place] [address] 52448- 0286 Apr, [facility] [id number] [place] [address] 61058- 0991 Apr, Medicare welcome exam Z00.00 and 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.01 [facility] [address] [address] 6940 Apr, Hypogonadism in male E29.1 [facility] [address] [place] [address] 14519- 9924 Mar, Diabetes type 2, controlled E11.9 [facility] [address] [address] 9156 Mar, Hypogonadism in male E29.1 [facility] [address] [address] 8185 Mar, Hypogonadism in male E29.1 [facility] [address] [address]- 0586 Feb, Hypogonadism in male E29.1 [facility] [address] [address] 5274 Feb, Malaise R53.81 [facility] [id number] [address] 8778 Feb, [facility] [address] [address] 8494 Feb, Diabetes type 2, controlled E11.9 [facility] [id number] [place] [address] 04051- 8758 Feb, Chronic fatigue R53.82 ; Malaise R53.81 and Moderate episode of recurrent major depressive disorder F33.1 [place] [id number] [place] [address] 15679- 3772 Jan, Diabetes type 2, controlled E11.9 [place] [id number] [place] [address] 73601- 8414 Jan, 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.01 and halfway (current) use of anticoagulants Z79.01 [place] [id number] [place] [address] 85774- 8235 Dec, Diabetes type 2, controlled E11.9 and Hypertriglyceridemia E78.1 [place] [id number] [place] [address] 76685- 5184 Dec, Diabetes type 2, controlled E11.9 [place] [id number] [place] [address] 13504- 5932 Dec, High risk medication use Z79.899 and halfway (current) use of anticoagulants Z79.01 [place] [address] [address]- 8453 Dec, High risk medication use Z79.899 [address] [place] [address]- 254 Nov, Diabetes type 2, controlled E11.9 [place] [id number] [place] [address] 79792- 2966 Oct, Diabetes type 2, controlled E11.9 [place] [address] [address]- 0707 September, Diabetes type 2, controlled E11.9 [place] [id number] [place] [address] 47048- 3505 Aug, 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.01 [place] [address] [address]- 1326 Aug, halfway (current) use of anticoagulants Z79.01 and Hematoma of arm, right, initial encounter S40.021A [place] [address] 29268- 2277 Aug, [facility] [address] [address]92 -9056 18 Aug, 2016 Cellulitis of right upper extremity L03.113 [place] [address] 60570- 9790 14 Aug, 2016 Diabetes type 2, controlled E11.9 [place] [address] 36171- 4368 Aug, Hammertoe of right foot M20.41 ; Hallux abducto valgus, left M20.12 and Onychomycosis B35.1 [place] [address] 35626- 6176 Aug, halfway (current) use of anticoagulants Z79.01 [place] [address] 14507- 0200 Aug, halfway (current) use of anticoagulants Z79.01 [place] [place] [address] 02909- 5003 Aug, 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.01 [facility] [address] [address] May, [facility] [id number] [address]- 2312 Apr, [facility] [address] [facility] [id number] [address] 9402 Mar, [facility] [address] [address]- 9117 Feb, [facility] [address] [address]- 8558 Dec, Diabetes type 2, controlled E11.9 [facility] [address] [address]- 2702 Dec, [facility] [address] [address]- 1015 Nov, [facility] [address] [address]- 4834 Nov, Type 2 diabetes mellitus without complications E11.9 [facility] [address] [address]- 1050 Oct, Type 2 diabetes mellitus without complications E11.9 [facility] [id number] [address]- 6826 Aug, [facility] [address] [address]- 4103 Aug, Type 2 diabetes mellitus without complications E11.9 [facility] [id number] [address]- 1105 Jun, Type 2 diabetes mellitus without complications E11.9 and 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 intermodal customer service use of antiplatelet drug Z79.02 [facility] [address] [address]- 2899 May, [facility] [address] [address]- 7876 May, Diabetes type 2, controlled E11.9 [facility] [address] [address]- 5458 Apr, Diabetes type 2, controlled E11.9 [facility] [address] [place] [address] 93430- 3242 Mar, Diabetes type 2, controlled E11.9 ; Knee pain, right M25.561 ; Other chronic pain G89.29 and Medication monitoring encounter Z51.81 [facility] [address] [address]- 1367 Feb, Type 2 diabetes mellitus without complications E11.9 ; High risk medication use Z79.899 and Anxiety F41.9 [facility] [id number] [address]- 5603 Jan, Diabetes 250.00 [facility] [id number] [place] [address] 17236- 2064 Dec, Diabetes 250.00 [facility] [address] [place] [address] 68090- 9549 Nov, Diabetes 250.00 [facility] [address] [address]- 0623 Nov, [facility] [address] [address]- 2543 Oct, Diabetes mellitus type 1 250.01 and High risk medication use V58.69 [facility] [address] [address]- 1742 Oct, [facility] [address] [address]- 8528 September, [facility] [id number] [address]- 3640 14 Aug, 2014 [facility] [place] [facility] [address] [id number] [place] [address]- 0886 13 Aug, 2014 [facility] [place] [facility] [address] [id number] [place] [address]- 1916 Jul, [facility] [place] [facility] [address] [id number] [place] [address]- 7446 Jul, [facility] [place] [facility] [address] [id number] [place] [address]- 7605 Jun, [facility] [place] [facility] [address] [id number] [place] [address]- 0786 Jun, [facility] [place] [facility] [address] [id number] [place] [address]- 5093 Jun, [facility] [place] [facility] [address] [id number] [place] [address]- 0637 May, [facility] [place] [facility] [address] [id number] [place] [address]- 9152 May, [facility] [place] [facility] [address] [id number] [place] [address]- 9904 Apr, [facility] [place] [facility] [address] [id number] [place] [address]- 4303 Apr, [facility] [place] [facility] [address] [id number] [place] [address]- 2541 Apr, [facility] [place] [facility] [address] [id number] [place] [address]- 2541 Apr, [facility] [place] [facility] [address] [id number] [place] [address]- 9836 Apr, [facility] [place] [facility] [address] [id number] [place] [address] 2546 Apr, [facility] [place] [facility] [address] [id number] [place] [address]- 8072 Feb, [facility] [place] [facility] [address] [id number] [place] [address]- 6148 Feb, [facility] [place] [facility] [address] [id number] [place] [address]- 0699 Feb, [facility] [place] [facility] [address] [id number] [place] [address]- 6644 Feb, [facility] [place] [facility] [address] [id number] [place] [address]- 6460 Dec, [facility] [place] [facility] [address] [id number] [place] [address]- 0983 Dec, [facility] [place] [facility] [address] [id number] [place] [address]- 0191 Nov, [facility] [place] [facility] [address] [id number] [place] [address]- 6291 Nov, [facility] [place] [facility] [address] [id number] [place] [address]- 3785 Oct, [facility] [place] [facility] [address] [id number] [place] [address]- 8599 Oct, [facility] [place] [facility] [address] [id number] [place] [address]- 5772 Oct, [facility] [place] [facility] [address] [id number] [place] [address]- 4368 Oct, [facility] [place] [facility] [address] [id number] [place] [address]- 1024 Oct, [facility] [place] [facility] [address] [id number] [place] [address]- 2211 Oct, [facility] [place] [facility] [address] [id number] [place] [address]- 2614 September, [facility] [place] [facility] [address] [id number] [place] [address]- 8590 September, [facility] [place] [facility] [address] [id number] [place] [address]- 3631 September, [facility] [place] [facility] [address] [id number] [place] [address]- 4181 September, [facility] [place] [facility] [address] [id number] [place] [address]- 6339 September, [facility] [place] [facility] [address] [id number] [place] [address]- 0531 September, [facility] [place] [facility] [address] [id number] [place] [address]- 9564 Aug, [facility] [place] [facility] [address] [id number] [place] [address]- 3192 Aug, [facility] [place] [facility] [address] [id number] [place] [address]- 1827 Aug, [facility] [place] [facility] [address] [id number] [place] [address]- 0946 Aug, [facility] [place] [facility] [address] [id number] [place] [address]- 6774 Aug, [facility] [place] [facility] [address] [id number] [place] [address]- 0863 Aug, [facility] [place] [facility] [address] [id number] [place] [address]- 6387 Jul, [facility] [place] [facility] [address] [id number] [place] [address]- 3591 Jul, [facility] [place] [facility] [address] [id number] [place] [address]- 0085 Jul, [facility] [place] [facility] [address] [id number] [place] [address]- 6384 Jul, [facility] [place] [facility] [address] [id number] [place] [address]- 7220 May, [facility] [place] [facility] [address] [id number] [place] [address]- 4116 May, [facility] [place] [facility] [address] [id number] [place] [address]- 4625 Apr, 2012 [facility] [place] [facility] [address] [id number] [place] [address]- 8856 Apr, 2012 [facility] [place] [facility] [address] [id number] [place] [address]- 8248 Apr, 2012 [facility] [place] [facility] [address] [id number] [place] [address]- 2521 Apr, 2012 [facility] [place] [facility] [address] [id number] [place] [address]- 6441 Apr, 2012 [facility] [place] [facility] [address] [id number] [place] [address]- 9561 Apr, 2012 [facility] [place] [facility] [address] [id number] [place] [address]- 7960 Feb, [facility] [place] [facility] [address] [id number] [place] [address]- 3156 Feb, [facility] [place] [facility] [address] [id number] [place] 4693 Feb, [facility] [place] [facility] [address] [id number] [place] 2321 Feb, [facility] [place] [facility] [address] [id number] [place] [address]- 6491 Feb, [facility] [place] [facility] [address] [id number] [place] [address]- 7185 Feb, [facility] [place] [facility] [address] [id number] [place] [address]- 5649 Feb, [facility] [place] [facility] [address] [id number] [place] [address]- 0547 Feb, [facility] [place] [facility] [address] [id number] [place] [address]- 5676 Jan, [facility] [place] [facility] [address] [id number] [place] [address]- 5495 Jan, [facility] [address] [id number] [place] [address]- 8484 Jan, [facility] [address] [id number] [place] [address]- 2429 Jan, [facility] [address] [id number] [place] [address]- 3069 Dec, [facility] [place] [facility] [address] [id number] [place] [address]- 9579 Dec, [facility] [address] [id number] [place] [address]- 0282 Dec, [facility] [address] [id number] [place] [address]- 6439 Nov, [facility] [address] [id number] [place] [address]- 4032 Nov, [facility] [address] [id number] [place] [address]- 6339 Oct, [facility] [address] [id number] [place] [address]- 5842 September, [facility] [place] [facility] [address] [id number] [place] [address]- 0997 September, [facility] [address] [id number] [address]- 6728 September, [facility] [place] [facility] [address] [id number], [place] [address]- 2225 Aug, [facility] [place] [facility] [address] [id number] [place] [address]- 3304 Aug, [facility] [place] [facility] [address] [id number] [address]- 7284 Aug, [facility] [place] [facility] [address] [id number] [place] [address]- 4762 Jul, [facility] [place] [facility] [address] [id number] [place] [address]- 5417 Jul, [facility] [address] [id number] [place] [address]- 3836 Jun, [facility] [place] [facility] [address] [id number] [place] [address] 2546 Jun, [facility] [address] [id number] [place] [address] 2546 Jun, [facility] [address] [id number] [place] [address]- 2546 Jun, [facility] [address] [id number] [place] [address]- 1146 May, [facility] [address] [id number] [place] [address]- 8136 May, [facility] [address] [id number] [place] [address]- 4936 Apr, [facility] [address] [id number] [place] [address] 2546 Apr, [facility] [address] [id number] [place] [address]- 9986 Apr, [facility] [address] [facility] [id number] [place] [address] Apr, [facility] [address] [id number] [place] [address] Apr, [facility] [address] [id number] [place] [address] Apr, [facility] [place] [facility] [address] [id number] [place] [address] Mar, [facility] [place] [facility] [address] [id number] [place] [address] Mar, [facility] [address] [id number] [place] [address] Mar, [facility] [place] [facility] [address] [id number] [place] [address] Mar, [facility] [place] [facility] [address] [id number] [place] [address] Mar, [facility] [place] [facility] [address] [id number] [place] [address] Mar, [facility] [place] [facility] [address] [id number] [place] [address] Feb, [facility] [place] [facility] [address] [id number] [place] [address] Feb, [facility] [place] [facility] [address] [id number] [place] [address] Feb, [facility] [place] [facility] [address] [id number] [place] [address] Feb, [facility] [place] [facility] [address] [id number] [place] [address] Feb, [facility] [place] [facility] [address] [id number] [place] [address] Jan, [facility] [place] [facility] [address] [id number] [place] [address] Jan, [facility] [place] [facility] [address] [id number] [place] [address] Jan, [facility] [place] [facility] [address] [id number] [place] [address] Dec, [facility] [place] [facility] [address] [id number] [place] [address] Dec, [facility] [place] [facility] [address] [id number] [place] [address] Nov, [facility] [place] [facility] [address] [id number] [place] [address] Oct, [facility] [place] [facility] [address] [id number] [place] [address] Oct, [facility] [place] [facility] [address] [id number] [place] [address] Oct, [facility] [place] [facility] [address] [id number] [place] [address] Oct, [facility] [place] [facility] [address] [id number] [place] [address] Oct, [facility] [place] [facility] [address] [id number] [place] [address] September, [facility] [place] [facility] [address] [id number] [place] [address] Aug, [facility] [place] [facility] [address] [id number] [place] [address] 18 Aug, 2011 [facility] [address] [id number] [place] [address] 17 Aug, 2011 [facility] [place] [facility] [address] [id number] [place] [address] 16 Aug, 2011 [facility] [place] [facility] [address] [id number] [place] [address]- [address] 13 Aug, 2011 [facility] [place] [facility] [address] [id number] [place] [address] Aug, [facility] [place] [facility] [address] [id number] [place] [address] Aug, [facility] [place] [facility] [address] [id number] [place] [address] 05 Aug, 2011 [facility] [place] [facility] [address] [id number] [place] [address] 05 Aug, 2011 [facility] [place] [facility] [address] [id number] [place] [address] Jul, [facility] [place] [facility] [address] [id number] [place] [address] Jul, [facility] [place] [facility] [address] [id number] [place] [address] 20 Jul, 2011 [facility] [place] [facility] [address] [id number] [place] [address] 17 Jul, 2011 [facility] [place] [facility] [address] [id number] [place] [address] 08 Jul, 2011 [facility] [place] [facility] [address] [id number] [place] [address] 15 Jun, 2011 [facility] [place] [facility] [address] [id number] [place] [address] 14 Jun, 2011 [facility] [place] [facility] [address] [id number] [place] [address]- [address] 08 Jun, 2011 [facility] [place] [facility] [address] [id number] [place] [address] 08 Jun, 2011 [facility] [address] [id number] [place] [address] May, [facility] [place] [facility] [address] [id number] [place] [address] May, [facility] [place] [facility] [address] [id number] [place] [address] May, [facility] [place] [facility] [address] [id number] [place] [address] May, [facility] [place] [facility] [address] [id number] [place] [address] May, [facility] [place] [facility] [address] [id number] [place] [address] May, [facility] [place] [facility] [address] [id number] [place] [address] May, [facility] [place] [facility] [address] [id number] [place] [address] Apr, [facility] [place] [facility] [address] [id number] [address] Apr, [facility] [place] [facility] [address] [id number] [place] [address] Apr, [facility] [place] [facility] [address] [id number] [place] [address] Apr, [facility] [place] [facility] [address] [id number] [place] [address] Apr, [facility] [place] [facility] [address] [id number] [place] [address] Apr, [facility] [place] [facility] [address] [id number] [place] [address] Apr, [facility] [place] [facility] [address] [id number] [place] [address] Apr, [facility] [place] [facility] [address] [id number] [place] [address] Apr, [facility] [place] [facility] [address] [id number] [place] [address] Apr, [facility] [place] [facility] [address] [id number] [place] [address] Mar, [facility] [place] [facility] [address] [id number] [place] [address] Mar, [facility] [place] [facility] [address] [id number][place] [address] Feb, [facility] [place] [facility] [address] [id number][place] [address] Jun, [facility] [place] [facility] [address] [id number] [place] [address] Apr, [facility] [place] [facility] [address] [id number] [place] [address] Feb, [facility] [place] [facility] [address] [id number] [place] [address] Feb, [facility] [place] [facility] [address] [id number] [address] Feb, [facility] [id number] [address] Apr, [facility] [id number] [address] Apr, [facility] [id number] [address] Mar, [facility] [id number] [address] Mar, [facility] [id number] [address] Mar, [facility] [id number] [address] Feb, [facility] [id number] [address] Feb, [facility] [id number] [address] Feb, [facility] [id number] [address] [address] Jan, IMMUNIZATIONS No Known Immunizations SOCIAL HISTORY Never Assessed REASON FOR VISIT Lab results PLAN OF CARE VITAL SIGNS MEDICATIONS Unknown [...]
--- OUTSIDE RECORDS SUMMARY | 2018-04-28 05:44 | XMS REPORT ---
Author Author MARLEY MCGRATH Organization [facility] Address [address] [place] [address] Care Team Providers Care Grommet Worker Name Role Phone MARLEY MCGRATH Unavailable PROBLEMS Type Condition ICD9-CM Code [id number] Code Onset Dates Condition Status SNOMED Code Problem Knee pain, right M25.561 Active 76809996 Problem Type 2 diabetes mellitus without complications E11.9 Active 576733540 Problem Diabetes type 2, controlled E11.9 Active 09563027 Problem Hypogonadism in male E29.1 Active 85994265 Problem 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.01 Active 0923177 Problem Chronic fatigue R53.82 Active 00666971 Problem Hammertoe of right foot M20.41 Active 930679951 Problem snf (current) use of anticoagulants Z79.01 Active 867350410 Problem Moderate episode of recurrent major depressive disorder F33.1 Active 239485115 Problem Hypertriglyceridemia E78.1 Active 486971230 ALLERGIES No Information ENCOUNTERS Encounter Location Date Diagnosis [facility] [id number] [place] [address] 75354- 5792 Aug, [facility] [id number] [place] [address] 79658 -8212 Aug, Hypogonadism in male E29.1 [facility] [id number] [place] [address] 07023- 7350 Jul, [facility] [id number] [place] [address] 82867- 9518 Jul, Hypogonadism in male E29.1 [facility] [id number] [place] [address] 44453- 4657 Jul, [facility] [id number] [place] [address] 07870 -6492 Jul, Hypogonadism in male E29.1 [facility] [address], [place] [address] 1637 Jul, Medicare welcome exam Z00.00 [facility] [address], [place] [address] 1549 22 Jun, 2017 Medicare welcome exam Z00.00 [facility] [address], [place] [address] Jun, Fever R50.9 and Influenza B J10.1 [facility] [id number] [place] [address] 32520- 4782 Jun, Hypogonadism in male E29.1 [facility] [id number] [place] [address] 36743- 6685 Jun, Diabetes type 2, controlled E11.9 [facility] [id number] [place] [address] 68859- 2676 May, Hypogonadism in male E29.1 [facility] [address], [place] [address] 0059 May, terminal manager (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 Z79.01 [facility] [address], [place] [address]- 0249 Apr, Hypogonadism in male E29.1 [facility] [address], [place] [address] 3916 Apr, [facility] [id number] [place] [address] 15579- 2541 Apr, Medicare welcome exam Z00.00 and terminal manager (current) use of anticoagulants Z79.01 [facility] [id number] [place] [address] 46368- 0540 Apr, Hypogonadism in male E29.1 [facility] [address], [place] [address]- 0320 Mar, Diabetes type 2, controlled E11.9 [facility] [address], [place] [address]- 0089 Mar, Hypogonadism in male E29.1 [facility] [address] [place] [address] 88443- 9579 Mar, Hypogonadism in male E29.1 [facility] [id number] [place] [address] 35184- 0569 Feb, Hypogonadism in male E29.1 [facility] [id number] [place] [address] 26798- 2705 Feb, Malaise R53.81 [facility] [id number] [place] [address] 03836- 6380 Feb, [facility] [id number] [place] [address] 81662- 3111 Feb, Diabetes type 2, controlled E11.9 [facility] [id number] [place] [address] 15361- 8994 Feb, Chronic fatigue R53.82 ; Malaise R53.81 and Moderate episode of recurrent major depressive disorder F33.1 [facility] [id number] [place] [address] 78208- 5631 Jan, Diabetes type 2, controlled E11.9 [facility] [address] [place] [address] 76490- 4026 Jan, 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.01 and terminal manager (current) use of anticoagulants Z79.01 [facility] [address], [place] [address]- 7896 Dec, Diabetes type 2, controlled E11.9 and Hypertriglyceridemia E78.1 [facility] [id number] [place] [address] 39176- 8235 Dec, Diabetes type 2, controlled E11.9 [facility] [id number] [place] [address] 35125- 0475 Dec, High risk medication use Z79.899 and snf (current) use of anticoagulants Z79.01 [facility] [id number] [place] [address] 85067- 8964 Dec, High risk medication use Z79.899 [facility] [id number] [place] [address] 22130- 6559 Nov, Diabetes type 2, controlled E11.9 [facility] [id number] [place] [address] 61146- 0843 Oct, Diabetes type 2, controlled E11.9 [facility] [id number] [place] [address] 29767- 2260 September, Diabetes type 2, controlled E11.9 [facility] [id number] [place] [address] 02315- 9844 Aug, terminal manager (current) use of anticoagulants Z79.01 [facility] [id number] [place] [address] 26850- 0829 Aug, Hematoma of arm, right, initial encounter S40.021A and snf (current) use of anticoagulants Z79.01 [facility] [id number] [place] [address] 47247- 3700 Aug, [facility] [id number] [place] [address] 63795 -5240 Aug, Cellulitis of right upper extremity L03.113 [facility] [id number] [place] [address] 86385- 8409 14 Aug, 2016 Diabetes type 2, controlled E11.9 [facility] [id number] [place] [address] 38897- 6466 Aug, Hammertoe of right foot M20.41 ; Hallux abducto valgus, left M20.12 and Onychomycosis B35.1 [facility] [id number] [place] [address] 07483- 0657 Aug, snf (current) use of anticoagulants Z79.01 [facility] [address], [place] [address]- 2540 Aug, snf (current) use of anticoagulants Z79.01 [facility] [address], [place] [address]- 9506 Aug, snf (current) use of anticoagulants Z79.01 [facility] [address], [place] [address] -6720 Aug, Right shoulder pain M25.511 and Closed nondisplaced fracture of acromial end of right clavicle, initial encounter S42.034A [facility] [id number] [place] [address] 27743- 4334 Jul, Diabetes type 2, controlled E11.9 [facility] [address] [place] [address] 54107- 5259 Jun, Diabetes type 2, controlled E11.9 and terminal manager (current) use of anticoagulants Z79.01 [facility] [address], [place] [address]- 4876 May, [facility] [address], [place] [address]- 8667 Apr, [facility] [address], [place] [address]- 3489 Mar, [facility] [address], [place] [address]- 1447 Feb, [facility] [address], [place] [address]- 0773 Dec, Diabetes type 2, controlled E11.9 [facility] [address] 0914 Dec, [facility] [address], [place] [address]- 9912 Nov, [facility] [id number] [address]- 8863 Nov, Type 2 diabetes mellitus without complications E11.9 [facility] [id number] [place] [address] 26857- 8733 Oct, Type 2 diabetes mellitus without complications E11.9 [facility] [address] [place] [address] 10434- 0765 Aug, [facility] [id number] [place] [address] 01842- 7482 Aug, Type 2 diabetes mellitus without complications E11.9 [facility] [id number] [place] [address] 86124- 9512 Jun, Type 2 diabetes mellitus without complications E11.9 and 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.02 [facility] [id number] [place] [address] 36793- 1299 May, [facility] [id number] [place] [address] 69594- 6368 May, Diabetes type 2, controlled E11.9 [facility] [id number] [place] [address] 52734- 9305 Apr, Diabetes type 2, controlled E11.9 [facility] [address] [place] [address] 47657- 0372 Mar, Diabetes type 2, controlled E11.9 ; Knee pain, right M25.561 ; Other chronic pain G89.29 and Medication monitoring encounter Z51.81 [facility] [address] [place] [address] 11675- 5356 Feb, Type 2 diabetes mellitus without complications E11.9 ; High risk medication use Z79.899 and Anxiety F41.9 [facility] [address], [place] [address]- 9921 10 Jan, 2015 Diabetes 250.00 [facility] [id number] [place] [address] 40930- 8487 Dec, Diabetes 250.00 [facility] [address] [facility] [id number] [place] [address]- 2161 Nov, Diabetes 250.00 [facility] [address] [facility] [id number] [place] [address]- 5476 Nov, [facility] [address] [facility] [id number] [place] [address]- 6705 Oct, Diabetes mellitus type 1 250.01 and High risk medication use V58.69 [facility] [address] [id number] [place] [address]- 2566 Oct, [facility] [address] [facility] [id number] [place] [address]- 9207 September, [facility] [address] [facility] [id number] [place] [address]- 0191 Aug, [facility] [address] [place] [address]- 9162 Aug, [facility] [address] [facility] [id number] [place] [address]- 0780 Jul, [facility] [id number] [place] [address]- 0853 Jul, [facility] [id number] [place] [address]- 7906 Jun, [facility] [address] [place] [address]- 6106 Jun, [facility] [address] [facility] [id number] [place] [address]- 4209 Jun, [facility] [address] [facility] [id number] [place] [address]- 0836 May, [facility] [address] [facility] [id number] [address]- 3976 May, [facility] [id number] [address]- 9412 Apr, [facility] [place] [facility] [address] [id number] [place] 1663 Apr, [facility] [place] [facility] [address] [id number] [place] 9374 Apr, [facility] [place] [facility] [address] [id number] [place] 3736 Apr, [facility] [place] [facility] [address] [id number] [place] [address]- 4555 Apr, [facility] [place] [facility] [address] [id number] [place] [address]- 1265 Apr, [facility] [place] [facility] [address] [id number] [place] [address]- 8769 Feb, [facility] [place] [facility] [address] [id number] [place] [address]- 1171 Feb, [facility] [place] [facility] [address] [id number] [place] [address]- 8555 Feb, [facility] [place] [facility] [address] [id number] [place] [address]- 3114 Feb, [facility] [place] [facility] [address] [id number] [place] [address]- 0450 Dec, [facility] [place] [facility] [address] [id number], [place] [address]- 6896 Dec, [facility] [place] [facility] [address] [id number], [place] [address]- 9927 Nov, [facility] [place] [facility] [address] [id number] [place] [address]- 5357 Nov, [facility] [place] [facility] [address] [id number] [place] [address]- 0703 Oct, [facility] [place] [facility] [address] [id number] [place] [address]- 2554 Oct, [facility] [place] [facility] [address] [id number] [place] [address]- 1541 Oct, [facility] [place] [facility] [address] [id number] [place] [address]- 6878 Oct, [facility] [place] [facility] [address] [id number] [place] [address]- 6093 Oct, [facility] [place] [facility] [address] [id number] [place] [address]- 0046 Oct, [facility] [place] [facility] [address] [id number] [place] [address]- 6311 September, [facility] [place] [facility] [address] [id number] [place] [address]- 6951 September, [facility] [place] [facility] [address] [id number] [place] [address]- 3941 September, [facility] [place] [facility] [address] [id number] [place] [address]- 0354 September, [facility] [place] [facility] [address] [id number] [place] [address]- 7551 September, [facility] [place] [facility] [address] [id number] [place] [address]- 4424 September, [facility] [place] [facility] [address] [id number] [place] [address]- 2544 Aug, [facility] [place] [facility] [address] [id number] [place] [address]- 6985 Aug, [facility] [place] [facility] [address] [id number] [place] [address]- 6323 Aug, [facility] [place] [facility] [address] [id number] [place] [address]- 3543 Aug, [facility] [place] [facility] [address] [id number] [place] [address]- 3203 Aug, [facility] [place] [facility] [address] [id number] [place] [address]- 4620 Aug, [facility] [place] [facility] [address] [id number] [place] [address]- 1079 Jul, [facility] [place] [facility] [address] [id number] [place] [address]- 8326 Jul, [facility] [place] [facility] [address] [id number] [place] [address]- 2546 Jul, [facility] [place] [facility] [address] [id number] [place] [address] 254 Jul, [facility] [place] [facility] [address] [id number] [place] [address]- 8243 May, [facility] [place] [facility] [address] [id number] [place] [address]- 9118 May, [facility] [address] [id number] [place] [address]- 7079 Apr, [facility] [address] [id number] [place] [address]- 1197 Apr, [facility] [place] [facility] [address] [id number] [place] [address]- 3639 Apr, [facility] [place] [facility] [address] [id number] [place] [address]- 9152 Apr, [facility] [place] [facility] [address] [id number] [place] [address]- 6070 Apr, [facility] [place] [facility] [address] [id number], [place] [address]- 0614 Apr, [facility] [place] [facility] [address] [id number] [place] [address]- 7406 Feb, [facility] [place] [facility] [address] [id number] [place] [address]- 2546 Feb, [facility] [place] [facility] [address] [id number] [place] [address]- 2546 Feb, [facility] [place] [facility] [address] [id number], [place] [address]- 4532 Feb, [facility] [place] [facility] [address] [id number] [place] [address]- 0572 Feb, [facility] [place] [facility] [address] [id number] [place] [address]- 0533 Feb, [facility] [place] [facility] [address] [id number] [place] [address]- 6316 Feb, [facility] [place] [facility] [address] [id number] [place] 1614 Feb, [facility] [place] [facility] [address] [id number] [place] [address]- 8692 Jan, [facility] [place] [facility] [address] [id number] [place] [address]- 8278 Jan, [facility] [place] [facility] [address] [id number] [place] [address]- 6489 Jan, [facility] [place] [facility] [address] [id number] [place] [address]- 4901 Jan, [facility] [place] [facility] [address] [id number] [place] [address]- 1579 Dec, [facility] [place] [facility] [address] [id number] [place] [address]- 6655 Dec, [facility] [place] [facility] [address] [id number], [place] [address]- 7166 Dec, [facility] [place] [facility] [address] [id number], [place] [address]- 5552 Nov, [facility] [place] [facility] [address] [id number] [place] 2294 Nov, [facility] [place] [facility] [address] [id number] [place] 4685 Oct, [facility] [place] [facility] [address] [id number] [place] [address]- 2601 September, [facility] [place] [facility] [address] [id number] [place] [address]- 3877 September, [facility] [address] [id number] [place] [address]- 2561 September, [facility] [address] [id number] [place] [address]- 5646 Aug, [facility] [address] [id number] [place] [address]- 4056 16 Aug, 2012 [facility] [address] [id number] [place] [address]- 0014 15 Aug, 2012 [facility] [address] [id number] [place] [address]- 4449 Jul, [facility] [address] [id number] [place] [address]- 0890 Jul, [facility] [address] [id number] [place] [address]- 5832 Jun, [facility] [address] [id number] [place] [address]- 8070 Jun, [facility] [address] [id number] [place] [address]- 4576 Jun, [facility] [address] [id number] [place] [address]- 4816 Jun, [facility] [address] [id number] [place] [address]- 6227 May, [facility] [address] [id number] [place] [address]- 7568 May, [facility] [place] [facility] [address] [id number] [place] [address]- 6606 Apr, [facility] [address] [id number] [place] [address]- 3576 Apr, [facility] [address] [id number] [place] [address]- 4348 Apr, [facility] [place] [facility] [address] [id number] [place] [address]- 7017 Apr, [facility] [place] [facility] [address] [id number], [place] [address]- 9986 Apr, [facility] [place] [facility] [address] [facility] [id number] [place] [address]- 9486 Apr, [facility] [place] [facility] [address] [id number], [place] [address] Mar, [facility] [place] [facility] [address] [id number] [place] [address] Mar, [facility] [place] [facility] [address] [facility] [id number], [place] [address] Mar, [facility] [place] [facility] [address] [facility] [id number] [place] [address] Mar, [facility] [place] [facility] [address] [id number], [place] [address] Mar, [facility] [place] [facility] [address] [facility] [id number], [place] [address] Mar, [facility] [place] [facility] [address] [facility] [id number], [place] [address] Feb, [facility] [place] [facility] [address] [facility] [id number], [place] [address] Feb, [facility] [place] [facility] [address] [id number], [place] [address] Feb, [facility] [place] [facility] [address] [id number], [place] [address] Feb, [facility] [place] [facility] [address] [facility] [id number], [place] [address] Feb, [facility] [place] [facility] [address] [facility] [id number], [place] [address] 25[address] Jan, [facility] [place] [facility] [address] [id number] [place] [address] 06 Jan, 2012 [facility] [place] [facility] [address] [id number] [place] [address] Jan, [facility] [place] [facility] [address] [id number] [place] [address] Dec, [facility] [place] [facility] [address] [id number] [place] [address] Dec, [facility] [place] [facility] [address] [id number] [place] [address] Nov, [facility] [place] [facility] [address] [id number] [place] [address] Oct, [facility] [place] [facility] [address] [id number] [place] [address] Oct, [facility] [place] [facility] [address] [id number] [place] [address] Oct, [facility] [place] [facility] [address] [id number] [place] [address] Oct, [facility] [place] [facility] [address] [id number] [place] [address] Oct, [facility] [place] [facility] [address] [id number] [place] [address] September, [facility] [place] [facility] [address] [id number] [place] [address] 18 Aug, 2011 [facility] [place] [facility] [address] [id number] [place] [address] 18 Aug, 2011 [facility] [place] [facility] [address] [id number] [place] [address]27 17 Aug, 2011 [facility] [place] [facility] [address] [id number] [place] [address] 16 Aug, 2011 [facility] [place] [facility] [address] [id number] [place] [address] 13 Aug, 2011 [facility] [place] [facility] [address] [id number] [place] [address] 11 Aug, 2011 [facility] [place] [facility] [address] [id number] [place] [address]26 Aug, [facility] [place] [facility] [address] [id number] [place] [address] 05 Aug, 2011 [facility] [place] [facility] [address] [id number] [place] [address] Aug, [facility] [address] [id number] [place] [address] Jul, [facility] [place] [facility] [address] [id number] [place] [address] Jul, [facility] [address] [id number] [place] [address] Jul, [facility] [address] [id number] [place] [address] 17 Jul, 2011 [facility] [address] [id number] [place] [address] Jul, [facility] [address] [id number] [place] [address] 15 Jun, 2011 [facility] [place] [facility] [address] [id number] [place] [address]- [address] 14 Jun, 2011 [facility] [place] [facility] [address] [id number] [place] [address]- [address] 08 Jun, 2011 [facility] [place] [facility] [address] [id number] [place] [address] Jun, [facility] [place] [facility] [address] [id number] [place] [address] 19 May, 2011 [facility] [place] [facility] [address] [id number] [place] [address]- [address] 13 May, 2011 [facility] [place] [facility] [address] [id number] [place] [address]- [address] 10 May, 2011 [facility] [address] [id number] [place] [address] May, [facility] [address] [id number] [place] [address] 47[address] May, [facility] [address] [id number] [place] [address] May, [facility] [address] [id number] [place] [address] May, [facility] [address] [id number] [place] [address] Apr, [facility] [address] [id number] [place] [address] Apr, [facility] [address] [id number] [place] [address] Apr, [facility] [address] [id number] [place] [address] Apr, [facility] [address] [id number] [place] [address] Apr, [facility] [address] [id number] [place] [address] Apr, [facility] [address] [id number] [place] [address] Apr, [facility] [place] [facility] [address] [id number] [place] [address] Apr, [facility] [place] [facility] [address] [id number] [place] [address] Apr, [facility] [place] [facility] [address] [id number] [place] [address] Apr, [facility] [address] [id number] [place] [address] Mar, [facility] [place] [facility] [address] [id number] [place] [address] 16 Mar, 2011 [facility] [place] [facility] [address] [id number] [place] [address] Feb, [facility] [place] [facility] [address] [id number] [place] [address] Jun, [facility] [place] [facility] [address] [id number] [place] [address] Apr, [facility] [place] [facility] [address] [id number] [place] [address] Feb, [facility] [place] [facility] [address] [id number] [place] [address] Feb, [facility] [place] [facility] [address] [id number] [place] [address] Feb, [facility] [place] [facility] [address] [id number] [place] [address] Apr, [facility] [place] [facility] [address] [id number] [place] [address] Apr, [facility] [place] [facility] [address] [id number] [place] [address] Mar, [facility] [place] [facility] [address] [id number] [place] [address] Mar, [facility] [place] [facility] [address] [id number], [place] [address] Mar, [facility] [place] [facility] [address] [id number] [place] [address] Feb, [facility] [place] [facility] [address] [id number] [place] [address] Feb, [facility] [place] [facility] [address] [id number] [place] [address] Feb, [facility] [place] [facility] [address] [id number], [place] [address] Jan, IMMUNIZATIONS No Known Immunizations SOCIAL HISTORY Never Assessed REASON FOR VISIT Controlled Med Refill PLAN OF CARE VITAL SIGNS MEDICATIONS Medication Instructions Dosage Frequency Start Date End Date Duration Status [place] 5-325 MG Orally every 6 hrs 1 tablet 6h Dec, 15 Active Clonazepam 1 MG Orally 3 times [...]
--- OUTSIDE RECORDS SUMMARY | 2018-04-28 05:44 | XMS REPORT ---
Author Author MARLEY MCGRATH Organization [facility] Address [address] [place] [address] Care Team Providers Care Sports Umpire Name Role Phone MARLEY MCGRATH Unavailable PROBLEMS Type Condition ICD9-CM Code DOT73-DU Code Onset Dates Condition Status SNOMED Code Problem Hammertoe of right foot M20.41 Active 556535393 Problem Moderate episode of recurrent major depressive disorder F33.1 Active 504661852 Problem Hypertriglyceridemia E78.1 Active 397434556 Problem Other chronic pain G89.29 Active 83930841 Problem Memory loss R41.3 Active 153671806 Problem 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.01 Active 5634468 Problem Chronic fatigue R53.82 Active 36913374 Problem Controlled type 2 diabetes mellitus without complication, without long -term current use of insulin E11.9 Active 790271155 Problem Chronic major depressive disorder, recurrent episode F33.9 Active 13509353 Problem Knee pain, right M25.561 Active 46057297 Problem Diabetes type 2, controlled E11.9 Active 83044968 Problem Type 2 diabetes mellitus without complications E11.9 Active 763263340 Problem Hypogonadism in male E29.1 Active 89924926 Problem assisted (current) use of anticoagulants Z79.01 Active [id number] ALLERGIES No Information ENCOUNTERS Encounter Location Date Diagnosis [facility] [id number] [address] Oct, Diabetes type 2, controlled E11.9 [facility] [id number] [address] 15 Oct, 2017 Medicare welcome exam Z00.00 [facility] [id number] [address] 11 Oct, 2017 Hypogonadism in male E29.1 [facility] [id number] [address] Oct, [facility] [id number] [address] September, Hypogonadism in male E29.1 [facility] [address] [address] September, Medicare welcome exam Z00.00 [facility] [address] [address] September, Hypogonadism in male E29.1 [facility] [address] [address] [address] Aug, Other chronic pain G89.29 ; Memory loss R41.3 ; Controlled type 2 diabetes mellitus without complication, without long-term current use of insulin E11.9 and Chronic major depressive disorder, recurrent episode F33.9 [facility] [address] [address] Aug, Medicare welcome exam Z00.00 [facility] [address] [address] Aug, [facility] [id number] [place] [address] Aug, Hypogonadism in male E29.1 [facility] [address] [address] Jul, [facility] [id number] [address] Jul, Hypogonadism in male E29.1 [facility] [address] [address] Jul, [facility] [address] [place] [address] Jul, Hypogonadism in male E29.1 [facility] [address] [address] Jul, Medicare welcome exam Z00.00 [facility] [address] [address] 22 Jun, 2017 Medicare welcome exam Z00.00 [facility] [address] [address] 19 Jun, 2017 Fever R50.9 and Influenza B J10.1 [facility] [id number] [place] [address] 75949- 1546 13 Jun, 2017 Hypogonadism in male E29.1 [facility] [id number] [address] 09 Jun, 2017 Diabetes type 2, controlled E11.9 [facility] [id number] [place] [address]- 4776 May, Hypogonadism in male E29.1 [facility] [id number] [place] [address] 73459- 7727 May, assisted (current) use of anticoagulants Z79.01 [facility] [id number] [address] Apr, Hypogonadism in male E29.1 [facility] [address] [place] [address] 02606- 4925 Apr, [facility] [id number] [place] [address] 20558- 1206 Apr, Medicare welcome exam Z00.00 and assisted (current) use of anticoagulants Z79.01 [facility] [address] [address] 8[address] Apr, Hypogonadism in male E29.1 [facility] [id number] [place] [address] 44166- 1926 Mar, Diabetes type 2, controlled E11.9 [facility] [address] [address] 3[address] Mar, Hypogonadism in male E29.1 [address] [address] [place] [address]59- 0738 Mar, Hypogonadism in male E29.1 [facility] [id number] [place] [address] 72507- 8244 Feb, Hypogonadism in male E29.1 [facility] [id number] [place] [address] 41442- 4609 Feb, Malaise R53.81 [facility] [id number] [place] [address] 45052- 2345 Feb, [facility] [address] [address] Feb, Diabetes type 2, controlled E11.9 [facility] [id number] [place] [address] 92855- 5397 Feb, Chronic fatigue R53.82 ; Malaise R53.81 and Moderate episode of recurrent major depressive disorder F33.1 [facility] [id number] [place] [address] 64357- 7408 Jan, Diabetes type 2, controlled E11.9 [facility] [id number] [place] [address] 65556- 2540 Jan, 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.01 and assisted (current) use of anticoagulants Z79.01 [facility] [id number] [place] [address] 20737- 2920 Dec, Diabetes type 2, controlled E11.9 and Hypertriglyceridemia E78.1 [facility] [id number] [place] [address] 90162- 7923 Dec, Diabetes type 2, controlled E11.9 [facility] [id number] [place] [address] 25861- 5003 Dec, High risk medication use Z79.899 and 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 [facility] [id number] [place] [address] 79572- 7732 Dec, High risk medication use Z79.899 [facility] [id number] [place] [address] 43482- 0878 Nov, Diabetes type 2, controlled E11.9 [facility] [id number] [place] [address] 90312- 1883 Oct, Diabetes type 2, controlled E11.9 [facility] [facility] [address] [address]- 9602 September, Diabetes type 2, controlled E11.9 [facility] [id number] [place] [address] 81261- 3996 Aug, 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 [facility] [id number] [place] [address] 49934- 6689 Aug, Hematoma of arm, right, initial encounter S40.021A and assisted (current) use of anticoagulants Z79.01 [facility] [id number] [place] [address] 68453- 5913 Aug, [facility] [address] [address] Aug, Cellulitis of right upper extremity L03.113 [facility] [id number] [place] [address] 88865- 8257 Aug, Diabetes type 2, controlled E11.9 [facility] [id number] [place] [address] 82735- 5044 Aug, Hammertoe of right foot M20.41 ; Hallux abducto valgus, left M20.12 and Onychomycosis B35.1 [facility] [id number] [place] [address] 91999- 9063 Aug, assisted (current) use of anticoagulants Z79.01 [place] [address] [address]- 4343 Aug, 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 [facility] [id number] [address] 78[address] Aug, 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 [facility] [address] [address] Aug, Right shoulder pain M25.511 and Closed nondisplaced fracture of acromial end of right clavicle, initial encounter S42.034A [facility] [address] [address]- 12[address] Jul, Diabetes type 2, controlled E11.9 [facility] [id number] [place] [address] 34634- 1404 Jun, Diabetes type 2, controlled E11.9 and assisted (current) use of anticoagulants Z79.01 [facility] [address] [address]- 2762 May, [facility] [id number] [address]- 1823 Apr, [facility] [id number] [place] [address] 24764- 5017 Mar, [facility] [id number] [address]- 4354 Feb, [facility] [id number] [address]- 4607 Dec, Diabetes type 2, controlled E11.9 [facility] [address] [address]- 5830 Dec, [facility] [id number] [address]- 8056 Nov, [facility] [id number] [address]- 3621 Nov, Type 2 diabetes mellitus without complications E11.9 [facility] [id number] [place] [address] 68030- 3186 Oct, Type 2 diabetes mellitus without complications E11.9 [facility] [id number] [place] [address] 21487- 2645 Aug, [facility] [id number] [place] [address] 17267- 6752 Aug, Type 2 diabetes mellitus without complications E11.9 [place] [facility] [address] [address]64- 6242 Jun, Type 2 diabetes mellitus without complications E11.9 and 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 [place] [address] 0[address]32- 1497 May, [place] [facility] [address] 65339- 0874 May, Diabetes type 2, controlled E11.9 [facility] [id number] [place] [address] 97146- 8895 Apr, Diabetes type 2, controlled E11.9 [facility] [id number] [place] [address] 77785- 0829 Mar, Diabetes type 2, controlled E11.9 ; Knee pain, right M25.561 ; Other chronic pain G89.29 and Medication monitoring encounter Z51.81 [facility] [id number] [place] [address] 46832- 7362 Feb, Type 2 diabetes mellitus without complications E11.9 ; High risk medication use Z79.899 and Anxiety F41.9 [facility] [id number] [place] [address] 34088- 3149 Jan, Diabetes 250.00 [facility] [id number] [place] [address] 37141- 5289 Dec, Diabetes 250.00 [facility] [id number] [place] [address] 02797- 4755 Nov, Diabetes 250.00 [facility] [address] [facility] [id number] [address]- 8155 Nov, [facility] [address] [place] [address] 91179- 2316 Oct, Diabetes mellitus type 1 250.01 and High risk medication use V58.69 [facility] [address] [address]- 3349 Oct, [facility] [id number] [address]- 0858 September, [facility] [id number] [place] [address], [place] [address]- 1740 Aug, [facility] [id number] [address]- 6954 Aug, [facility] [address] [place] [address] 25092- 1392 Jul, [facility] [address] [address]- 3188 Jul, [facility] [id number] [address]- 7783 Jun, [facility] [id number] [address]- 9267 Jun, [facility] [id number] [address]- 3110 Jun, [facility] [id number] [address]- 1147 May, [facility] [id number] [address]- 3367 May, [facility] [id number] 9102 Apr, [facility] [id number] [address] Apr, [facility] [place] [facility] [address] [id number] [place] [address]- 3723 Apr, [facility] [place] [facility] [address] [id number] [place] [address]- 5523 Apr, [facility] [place] [facility] [address] [id number] [place] [address]- 2378 Apr, [facility] [place] [facility] [address] [id number] [place] [address]- 4553 Apr, [facility] [place] [facility] [address] [id number] [place] [address]- 4741 Feb, [facility] [place] [facility] [address] [id number] [place] [address]- 0272 Feb, [facility] [place] [facility] [address] [id number] [place] [address]- 5380 Feb, [facility] [place] [facility] [address] [id number] [place] [address]- 0922 Feb, [facility] [place] [facility] [address] [id number] [place] [address]- 3962 Dec, [facility] [place] [facility] [address] [id number] [place] [address]- 1073 Dec, [facility] [place] [facility] [address] [id number] [place] [address]- 5292 Nov, [facility] [place] [facility] [address] [id number] [place] [address]- 9015 Nov, [facility] [place] [facility] [address] [id number] [place] [address]- 8292 Oct, [facility] [place] [facility] [address] [id number] [place] [address]- 5403 Oct, [facility] [place] [facility] [address] [id number] [place] [address]- 6272 Oct, [facility] [place] [facility] [address] [id number] [place] [address]- 9319 Oct, [facility] [place] [facility] [address] [id number] [place] [address]- 8844 Oct, [facility] [place] [facility] [address] [id number] [place] [address]- 1545 Oct, [facility] [place] [facility] [address] [id number] [place] [address]- 6804 September, [facility] [place] [facility] [address] [id number] [place] [address]- 6003 September, [facility] [place] [facility] [address] [id number] [place] [address]- 6059 September, [facility] [place] [facility] [address] [id number] [place] [address]- 8565 September, [facility] [place] [facility] [address] [id number] [place] [address]- 3597 September, [facility] [place] [facility] [address] [id number] [place] [address]- 2548 September, [facility] [place] [facility] [address] [id number] [place] [address]- 6799 Aug, [facility] [place] [facility] [address] [id number] [place] [address]- 8012 Aug, [facility] [place] [facility] [address] [id number] [place] [address]- 4521 Aug, [facility] [place] [facility] [address] [id number] [place] [address]- 8294 Aug, [facility] [place] [facility] [address] [id number] [place] [address]- 2508 Aug, [facility] [place] [facility] [address] [id number] [place] [address]- 5154 Aug, [facility] [place] [facility] [address] [id number] [place] [address]- 8945 Jul, [facility] [place] [facility] [address] [id number] [place] [address]- 1756 Jul, [facility] [address] [id number] [place] [address]- 2889 Jul, [facility] [address] [id number] [place] [address]- 3716 Jul, [facility] [address] [id number] [place] [address]- 3626 May, [facility] [address] [id number] [place] [address]- 3088 May, [facility] [address] [id number] [place] [address]- 7322 Apr, [facility] [address] [id number] [place] [address]- 9215 Apr, [facility] [address] [id number] [place] [address]- 1830 Apr, [facility] [address] [id number] [place] [address]- 5382 Apr, [facility] [address] [id number] [place] [address]- 1728 Apr, [facility] [address] [facility] [id number] [place] [address]- 1419 Apr, [facility] [place] [facility] [address] [id number] [place] [address]- 5860 Feb, [facility] [address] [id number] [place] [address]- 1867 Feb, [facility] [place] [facility] [address] [id number] [place] [address]- 6488 Feb, [facility] [place] [facility] [address] [id number] [place] [address]- 2546 Feb, [facility] [place] [facility] [address] [id number] [place] [address]- 2568 Feb, [facility] [place] [facility] [address] [id number] [place] [address]- 4918 Feb, [facility] [place] [facility] [address] [id number] [place] [address]- 2994 Feb, [facility] [place] [facility] [address] [id number] [place] [address]- 4378 Feb, [facility] [place] [facility] [address] [id number] [place] [address]- 2608 Jan, [facility] [place] [facility] [address] [id number] [place] [address]- 7935 Jan, [facility] [place] [facility] [address] [id number] [place] [address]- 5588 Jan, [facility] [place] [facility] [address] [id number] [place] [address]- 9724 Jan, [facility] [place] [facility] [address] [id number] [place] [address]- 1085 Dec, [facility] [place] [facility] [address] [id number] [place] [address]- 1267 Dec, [facility] [place] [facility] [address] [id number] [place] [address]- 5259 Dec, [facility] [place] [facility] [address] [id number] [place] [address]- 2109 Nov, [facility] [place] [facility] [address] [id number] [address]- 0027 Nov, [facility] [place] [facility] [address] [id number] [place] [address]- 4108 Oct, [facility] [place] [facility] [address] [id number] [place] [address]- 7502 September, [facility] [place] [facility] [address] [id number] [place] [address]- 4015 September, [facility] [place] [facility] [address] [id number] [address]- 8588 September, [facility] [address] [id number] [place] [address]- 2088 19 Aug, 2012 [facility] [address] [id number] [place] [address]- 3756 16 Aug, 2012 [facility] [address] [facility] [id number] [place] [address]- 7887 15 Aug, 2012 [facility] [address] [id number] [place] [address]- 7840 Jul, [facility] [address] [id number] [place] [address]- 7374 Jul, [facility] [address] [id number] [place] [address]- 4588 Jun, [facility] [address] [facility] [id number] [place] [address]- 6870 Jun, [facility] [address] [facility] [id number] [place] [address]- 0710 Jun, [facility] [address] [facility] [id number] [place] [address]- 5320 Jun, [facility] [address] [facility] [id number] [place] [address]- 1460 May, [facility] [address] [facility] [id number] [place] [address]- 9116 May, [facility] [address] [id number] [place] [address] Apr, [facility] [place] [facility] [address] [id number] [place] [address] Apr, [facility] [address] [facility] [id number] [place] [address] Apr, [facility] [address] [facility] [id number] [place] [address] Apr, [facility] [place] [facility] [address] [id number] [place] [address] Apr, [facility] [place] [facility] [address] [id number] [place] [address] Apr, [facility] [place] [facility] [address] [id number] [place] [address] Mar, [facility] [place] [facility] [address] [id number] [place] [address] Mar, [facility] [place] [facility] [address] [id number] [place] [address] Mar, [facility] [place] [facility] [address] [id number] [place] [address] Mar, [facility] [place] [facility] [address] [id number] [place] [address] Mar, [facility] [place] [facility] [address] [id number] [place] [address] Mar, [facility] [place] [facility] [address] [id number] [place] [address] Feb, [facility] [place] [facility] [address] [id number] [place] [address] Feb, [facility] [place] [facility] [address] [id number] [place] [address] Feb, [facility] [place] [facility] [address] [id number] [place] [address] Feb, [facility] [place] [facility] [address] [id number] [place] [address] Feb, [facility] [place] [facility] [address] [id number] [place] [address] Jan, [facility] [place] [facility] [address] [id number] [place] [address] 06 Jan, 2012 [facility] [place] [facility] [address] [id number] [place] [address] Jan, [facility] [place] [facility] [address] [id number] [place] [address] Dec, [facility] [place] [facility] [address] [id number] [place] [address] Dec, [facility] [place] [facility] [address] [id number] [place] [address] Nov, [facility] [place] [facility] [address] [id number] [place] [address] Oct, [facility] [place] [facility] [address] [id number] [place] [address] Oct, [facility] [place] [facility] [address] [id number] [place] [address] Oct, [facility] [place] [facility] [address] [id number] [place] [address] Oct, [facility] [place] [facility] [address] [id number] [place] [address] Oct, [facility] [place] [facility] [address] [id number] [place] [address] September, [facility] [place] [facility] [address] [id number] [place] [address] 18 Aug, 2011 [facility] [place] [facility] [address] [id number] [place] [address] 18 Aug, 2011 [facility] [place] [facility] [address] [id number] [place] [address] 17 Aug, 2011 [facility] [place] [facility] [address] [id number] [place] [address]- [address] 16 Aug, 2011 [facility] [place] [facility] [address] [id number] [place] [address] 13 Aug, 2011 [facility] [place] [facility] [address] [id number] [place] [address] 11 Aug, 2011 [facility] [place] [facility] [address] [id number] [place] [address] 11 Aug, 2011 [facility] [address] [id number] [place] [address] 05 Aug, 2011 [facility] [address] [id number] [place] [address] 05 Aug, 2011 [facility] [address] [id number] [place] [address]- [address] 20 Jul, 2011 [facility] [address] [id number] [place] [address] 20 Jul, 2011 [facility] [address] [id number] [place] [address] 20 Jul, 2011 [facility] [address] [id number] [place] [address] 17 Jul, 2011 [facility] [address] [id number] [place] [address] 08 Jul, 2011 [facility] [address] [id number] [place] [address]- [address] 15 Jun, 2011 [facility] [address] [id number] [place] [address]- [address] 14 Jun, 2011 [facility] [address] [id number] [place] [address]- [address] 08 Jun, 2011 [facility] [address] [id number] [place] [address] 08 Jun, 2011 [facility] [address] [address] [id number] [place] [address] May, [facility] [place] [facility] [address] [id number] [place] [address] 13 May, 2011 [facility] [place] [facility] [address] [id number] [place] [address] 10 May, 2011 [facility] [address] [id number] [place] [address] May, [facility] [address] [id number] [place] [address] May, [facility] [place] [facility] [address] [id number] [place] [address] May, [facility] [place] [facility] [address] [id number] [place] [address] May, [facility] [place] [facility] [address] [id number] [place] [address] Apr, [facility] [address] [id number] [place] [address] Apr, [facility] [place] [facility] [address] [id number] [place] [address] Apr, [facility] [place] [facility] [address] [id number] [place] [address] Apr, [facility] [place] [facility] [address] [id number] [place] [address] Apr, [facility] [place] [facility] [address] [id number] [place] [address] Apr, [facility] [place] [facility] [address] [id number] [place] [address] Apr, [facility] [place] [facility] [address] [id number] [place] [address] Apr, [facility] [place] [facility] [address] [id number] [place] [address] Apr, [facility] [place] [facility] [address] [id number] [place] [address] Apr, [facility] [place] [facility] [address] [id number] [place] [address] Mar, [facility] [place] [facility] [address] [id number] [place] [address] 16 Mar, 2011 [facility] [place] [facility] [id number] [address] Feb, [facility] [id number] [address] Jun, [facility] [id number] [address] Apr, [facility] [id number] [address] Feb, [facility] [id number] [address] Feb, [facility] [id number] [address] Feb, [facility] [id number] [address] Apr, [facility] [id number] [address] Apr, [facility] [id number] [address] Mar, [facility] [id number] [address] Mar, [facility] [id number] [address] Mar, [facility] [id number] [address] Feb, [facility] [id number] [address] Feb, [facility] [id number] [address] Feb, [facility] [id number] [address] Jan, IMMUNIZATIONS Vaccine Route Administration Date Status TESTOSTERONE (PT'S OWN) IM Intramuscular May 29, 2017 Administered SOCIAL HISTORY Never Assessed REASON FOR VISIT Testosterone injection-Urban PATIÑO PLAN OF CARE Activity Details Follow Up 2 Weeks Reason:Injection VITAL SIGNS MEDICATIONS Unknown Medications RESULTS No Results PROCEDURES Procedure Date Ordered Result Body Site TESTOSTERONE (PT'S OWN) May 29, 2017 THER/PROPH/DIAG INJ, SC/IM May 29, 2017 INSTRUCTIONS MEDICATIONS ADMINISTERED No Known [...]
--- OUTSIDE RECORDS SUMMARY | 2018-04-28 05:45 | XMS REPORT ---
Author Author MARLEY MCGRATH Organization [employer] Address Unknown Phone Unavailable Care Team Providers Care Medical Device Name Role Phone MARLEY MCGRATH CP Unavailable Allergies No Known Allergies Problems Problem Type Condition Code Onset Dates Condition Status Problem Knee pain, right M25.561 Active Assessment Diabetes type 2, controlled E11.9 Active Problem Diabetes type 2, controlled E11.9 Active Medications Medication Code System Code Instructions Start Date End Date Status Dosage Metformin HCl [facility] [address]-43 500 MG Orally Twice a day 1 1/2 tablets Results No Known Results Summary Purpose [employer] Submission
--- OUTSIDE RECORDS SUMMARY | 2018-04-28 05:45 | XMS REPORT ---
Author Author MARLEY MCGRATH [facility] Address [address] [place] [address] Care Team Providers Care Community Development Director Name Role Phone MARLEY MCGRATH Unavailable PROBLEMS Type Condition ICD9-CM Code [id number] Code Onset Dates Condition Status SNOMED Code Problem Hypertriglyceridemia E78.1 Active 243824560 Problem Hammertoe of right foot M20.41 Active 033308942 Problem Diabetes type 2, controlled E11.9 Active 56151634 Problem Knee pain, right M25.561 Active 46129899 Problem [facility] (current) use of anticoagulants Z79.01 Active 980877339 Problem Type 2 diabetes mellitus without complications E11.9 Active 280976585 ALLERGIES Unknown Allergies SOCIAL HISTORY No smoking Hx information available PLAN OF CARE VITAL SIGNS MEDICATIONS Medication Instructions Dosage Frequency Start Date End Date Duration Status Actos 30 MG Orally Once a day 1 tablet 24h Feb, Active RESULTS No Results PROCEDURES No Known procedures IMMUNIZATIONS No Known Immunizations
--- OUTSIDE RECORDS SUMMARY | 2018-04-28 05:45 | XMS REPORT ---
Author Author MARLEY MCGRATH Organization [facility] Address [address] [place] [address] Care Team Providers Care Vice President Medical Affairs Name Role Phone MARLEY MCGRATH Unavailable PROBLEMS Type Condition ICD9-CM Code BIW32-VW Code Onset Dates Condition Status SNOMED Code Problem Hammertoe of right foot M20.41 Active 244461045 Problem Moderate episode of recurrent major depressive disorder F33.1 Active 765513620 Problem Hypertriglyceridemia E78.1 Active 394699180 Problem Other chronic pain G89.29 Active 10768435 Problem Memory loss R41.3 Active 075690534 Problem 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.01 Active 2522223 Problem Chronic fatigue R53.82 Active 45014035 Problem Controlled type 2 diabetes mellitus without complication, without long -term current use of insulin E11.9 Active 182886218 Problem Chronic major depressive disorder, recurrent episode F33.9 Active 28694050 Problem Knee pain, right M25.561 Active 95116701 Problem Diabetes type 2, controlled E11.9 Active 36968756 Problem Type 2 diabetes mellitus without complications E11.9 Active 760991481 Problem Hypogonadism in male E29.1 Active 86454738 Problem senior care (current) use of anticoagulants Z79.01 Active 041365032 ALLERGIES No Information ENCOUNTERS Encounter Location Date Diagnosis [facility] [id number] [place] [address] 40772- 0421 Aug, Other chronic pain G89.29 ; Memory loss R41.3 ; Controlled type 2 diabetes mellitus without complication, without long-term current use of insulin E11.9 and Chronic major depressive disorder, recurrent episode F33.9 [facility] [id number] [place] [address] 72032- 4497 Aug, Medicare welcome exam Z00.00 [facility] [id number] [place] [address] 22749- 1146 Aug, [facility] [address] [address] Aug, Hypogonadism in male E29.1 [facility] [id number] [place] [address] 72705- 5606 Jul, [facility] [id number] [place] [address] 95600- 5582 Jul, Hypogonadism in male E29.1 [facility] [id number] [place] [address] 68072- 3580 Jul, [facility] [id number] [place] [address] 27465 -2172 Jul, Hypogonadism in male E29.1 [facility] [id number] [place] [address] 56882- 7867 Jul, Medicare welcome exam Z00.00 [facility] [id number] [place] [address] 91162- 5819 Jun, Medicare welcome exam Z00.00 [facility] [id number] [place] [address] 13620 -7268 Jun, Fever R50.9 and Influenza B J10.1 [facility] [id number] [place] [address] 37093- 7444 Jun, Hypogonadism in male E29.1 [facility] [id number] [place] [address] 34979- 2839 Jun, Diabetes type 2, controlled E11.9 [facility] [id number] [place] [address] 29770- 9508 May, Hypogonadism in male E29.1 [facility] [id number] [place] [address] 27246- 9794 May, senior care (current) use of anticoagulants Z79.01 [facility] [id number] [place] [address] 70701- 1696 Apr, Hypogonadism in male E29.1 [facility] [address] [address] 2150 Apr, [facility] [id number] [place] [address] 11250913- 5362 Apr, Medicare welcome exam Z00.00 and senior care (current) use of anticoagulants Z79.01 [facility] [id number] [place] [address] 61853- 5790 Apr, Hypogonadism in male E29.1 [facility] [id number] [place] [address] 575989- 4358 Mar, Diabetes type 2, controlled E11.9 [facility] [id number] [place] [address] 12236- 2075 Mar, Hypogonadism in male E29.1 [facility] [id number] [place] [address] 86096- 9152 Mar, Hypogonadism in male E29.1 [facility] [id number] [place] [address] 15524- 0649 Feb, Hypogonadism in male E29.1 [facility] [id number] [place] [address] 57945- 8571 Feb, Malaise R53.81 [facility] [id number] [address]- 6835 Feb, [facility] [id number] [place] [address] 46086- 5054 Feb, Diabetes type 2, controlled E11.9 [facility] [id number] [place] [address] 65356- 1552 06 Feb, 2017 Chronic fatigue R53.82 ; Malaise R53.81 and Moderate episode of recurrent major depressive disorder F33.1 [facility] [id number] [place] [address] 81015- 5246 Jan, Diabetes type 2, controlled E11.9 [facility] [id number] [place] [address] 79360- 7624 Jan, 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.01 and 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 administrator (current) use of anticoagulants Z79.01 [facility] [id number] [place] [address] 48871- 2156 Dec, Diabetes type 2, controlled E11.9 and Hypertriglyceridemia E78.1 [facility] [id number] [place] [address] 67249- 1002 Dec, Diabetes type 2, controlled E11.9 [facility] [id number] [place] [address] 79071- 4998 Dec, High risk medication use Z79.899 and senior care (current) use of anticoagulants Z79.01 [facility] [id number] [place] [address] 37279- 3088 Dec, High risk medication use Z79.899 [facility] [id number] [place] [address] 23284- 0051 Nov, Diabetes type 2, controlled E11.9 [facility] [id number] [place] [address] 15960- 2273 Oct, Diabetes type 2, controlled E11.9 [facility] [id number] [place] [address] 47077- 9813 September, Diabetes type 2, controlled E11.9 [facility] [facility] [id number] [place] [address] 88926- 3178 Aug, 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 administrator (current) use of anticoagulants Z79.01 [facility] [id number] [place] [address] 77633- 7745 Aug, Hematoma of arm, right, initial encounter S40.021A and 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 administrator (current) use of anticoagulants Z79.01 [place] [facility] [id number] [place] [address] 23813- 5300 Aug, [facility] [id number] [place] [address] 46547 -8269 Aug, Cellulitis of right upper extremity L03.113 [place] [facility] [id number] [place] [address] 24356- 6877 14 Aug, 2016 Diabetes type 2, controlled E11.9 [place] [address] 60330- 1618 Aug, Hammertoe of right foot M20.41 ; Hallux abducto valgus, left M20.12 and Onychomycosis B35.1 [place] [facility] [address] 72979- 3446 Aug, senior care (current) use of anticoagulants Z79.01 [place] [address] 43522- 3386 Aug, senior care (current) use of anticoagulants Z79.01 [place] [address] 96759- 0865 Aug, senior care (current) use of anticoagulants Z79.01 [facility] [address] 43799 -9362 Aug, Right shoulder pain M25.511 and Closed nondisplaced fracture of acromial end of right clavicle, initial encounter S42.034A [facility] [facility] [id number] [place] [address] 63967- 8398 Jul, Diabetes type 2, controlled E11.9 [place] [facility] [id number] [place] [address] 01174- 1420 Jun, Diabetes type 2, controlled E11.9 and senior care (current) use of anticoagulants Z79.01 [facility] [id number] [place] [address] 82028- 4763 May, [facility] [facility] [address] 72940- 4759 Apr, [facility] [address] [address]- 9738 Mar, [facility] [address] [address]- 4853 Feb, [facility] [address] [address]- 3304 Dec, Diabetes type 2, controlled E11.9 [facility] [id number] [place] [address] 97784- 0900 Dec, [facility] [id number] [place] [address] 84973- 5717 Nov, [facility] [id number] [place] [address] 73731- 3578 Nov, Type 2 diabetes mellitus without complications E11.9 [facility] [id number] [place] [address] 67671- 6519 Oct, Type 2 diabetes mellitus without complications E11.9 [facility] [address] [address]- 6124 Aug, [facility] [id number] [place] [address] 84515- 0158 Aug, Type 2 diabetes mellitus without complications E11.9 [facility] [address] [address]- 2833 Jun, Type 2 diabetes mellitus without complications E11.9 and 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 administrator use of antiplatelet drug Z79.02 [facility] [address] [address]- 7387 May, [facility] [id number] [place] [address] 04492- 8320 May, Diabetes type 2, controlled E11.9 [facility] [address] [address]- 1229 Apr, Diabetes type 2, controlled E11.9 [facility] [address] [address]- 4195 Mar, Diabetes type 2, controlled E11.9 ; Knee pain, right M25.561 ; Other chronic pain G89.29 and Medication monitoring encounter Z51.81 [facility] [address] [address]- 7036 Feb, Type 2 diabetes mellitus without complications E11.9 ; High risk medication use Z79.899 and Anxiety F41.9 [facility] [id number] [place] [address] 27080- 9176 Jan, Diabetes 250.00 [facility] [id number] [place] [address] 88776 2546 Dec, Diabetes 250.00 [facility] [id number] [place] [address] 48596 2546 Nov, Diabetes 250.00 [facility] [id number] [place] [address] 67582- 1216 Nov, [facility] [id number] [place] [address] 94292- 5451 Oct, Diabetes mellitus type 1 250.01 and High risk medication use V58.69 [facility] [address] [address]- 4686 Oct, [facility] [address] [address]- 2276 September, [facility] [address] [address] 2546 Aug, [facility] [address] [address]- 6736 Aug, [facility] [address] 6306 Jul, [facility] [address] 8606 Jul, [facility] [place] [facility] [address] [id number] [place] [address]- 7765 Jun, [facility] [place] [facility] [address] [id number] [place] 9180 Jun, [facility] [place] [facility] [address] [id number] [place] [address]- 4362 Jun, [facility] [place] [facility] [address] [id number] [place] [address]- 1596 May, [facility] [place] [facility] [address] [id number] [place] [address]- 3838 May, [facility] [place] [facility] [address] [id number] [place] [address]- 9477 Apr, [facility] [place] [facility] [address] [id number] [place] [address]- 2780 Apr, [facility] [place] [facility] [address] [id number] [place] [address]- 2983 Apr, [facility] [place] [facility] [address] [id number] [place] [address]- 3531 Apr, [facility] [place] [facility] [address] [id number] [place] [address]- 1124 Apr, [facility] [place] [facility] [address] [id number] [place] [address]- 0464 Apr, [facility] [place] [facility] [address] [id number] [place] [address]- 1931 Feb, [facility] [place] [facility] [address] [id number] [place] 3270 Feb, [facility] [place] [facility] [address] [id number] [place] [address]- 7506 Feb, [facility] [place] [facility] [address] [id number] [place] [address]- 7876 Feb, [facility] [place] [facility] [address] [id number] [place] [address]- 1522 Dec, [facility] [place] [facility] [address] [id number] [place] [address]- 5590 Dec, [facility] [place] [facility] [address] [id number] [place] [address]- 0428 Nov, [facility] [place] [facility] [address] [id number] [place] [address]- 0330 Nov, [facility] [place] [facility] [address] [id number] [place] [address]- 7192 Oct, [facility] [place] [facility] [address] [id number] [place] [address]- 8012 Oct, [facility] [place] [facility] [address] [id number] [place] [address]- 7264 Oct, [facility] [place] [facility] [address] [id number] [place] [address]- 7316 Oct, [facility] [place] [facility] [address] [id number] [place] [address]- 7066 Oct, [facility] [place] [facility] [address] [id number] [place] [address]- 3356 Oct, [facility] [place] [facility] [address] [id number] [place] [address]- 2053 September, [facility] [place] [facility] [address] [id number] [place] [address]- 1587 September, [facility] [place] [facility] [address] [id number] [place] [address]- 2277 September, [facility] [place] [facility] [address] [id number] [place] [address]- 6340 September, [facility] [place] [facility] [address] [id number] [place] [address]- 7723 September, [facility] [place] [facility] [address] [id number] [place] [address]- 6380 September, [facility] [place] [facility] [address] [id number] [place] [address]- 4997 Aug, [facility] [address] [id number] [place] [address]- 6666 Aug, [facility] [place] [facility] [address] [id number] [place] [address]- 3996 Aug, [facility] [address] [id number] [place] [address]- 8801 Aug, [facility] [place] [facility] [address] [id number] [place] [address]- 0954 Aug, [facility] [address] [id number] [place] [address]- 3653 Aug, [facility] [address] [id number] [place] [address]- 5303 Jul, [facility] [place] [facility] [address] [id number] [place] [address]- 9770 Jul, [facility] [address] [id number] [place] [address]- 9681 Jul, [facility] [place] [facility] [address] [id number] [place] [address]- 3964 Jul, [facility] [address] [id number] [place] [address]- 9233 May, [facility] [place] [facility] [address] [id number] [place] [address]- 4514 May, [facility] [address] [id number] [place] [address]- 9145 Apr, [facility] [place] [facility] [address] [id number] [place] [address]- 7658 Apr, [facility] [place] [facility] [address] [id number] [place] [address]- 8856 Apr, [facility] [place] [facility] [address] [id number] [place] [address]- 9334 Apr, [facility] [place] [facility] [address] [id number] [place] [address]- 4283 Apr, [facility] [place] [facility] [address] [id number] [place] [address]- 2755 Apr, [facility] [place] [facility] [address] [id number] [place] [address]- 8527 Feb, [facility] [place] [facility] [address] [id number] [place] [address]- 4115 Feb, [facility] [place] [facility] [address] [id number] [place] [address]- 3348 Feb, [facility] [place] [facility] [address] [id number] [place] [address]- 3283 Feb, [facility] [place] [facility] [address] [id number] [place] [address]- 0554 Feb, [facility] [place] [facility] [address] [id number] [address]- 9050 Feb, [facility] [place] [facility] [address] [id number] [place] [address]- 4858 Feb, [facility] [place] [facility] [address] [id number], [place] [address]- 8663 Feb, [facility] [place] [facility] [address] [id number], [place] [address]- 4497 Jan, [facility] [place] [facility] [address] [id number], [place] [address]- 3870 Jan, [facility] [place] [facility] [address] [id number] [place] [address]- 6483 Jan, [facility] [place] [facility] [address] [id number], [place] [address]- 1830 Jan, [facility] [place] [facility] [address] [id number], [place] [address]- 9869 Dec, [facility] [place] [facility] [address] [id number] [place] [address]- 4425 Dec, [facility] [address] [id number] [place] [address]- 0121 Dec, [facility] [address] [id number] [place] [address]- 9593 Nov, [facility] [address] [id number] [place] [address]- 1945 Nov, [facility] [address] [id number] [place] [address]- 8005 Oct, [facility] [address] [id number] [place] [address]- 1821 September, [facility] [address] [id number] [place] [address]- 7509 September, [facility] [address] [id number] [place] [address]- 5332 September, [facility] [address] [id number] [place] [address]- 9191 Aug, [facility] [address] [id number] [place] [address]- 8995 16 Aug, 2012 [facility] [address] [id number] [place] [address]- 9468 Aug, [facility] [address] [id number] [place] [address]- 0453 Jul, [facility] [place] [facility] [address] [id number] [place] [address]- 1178 Jul, [facility] [address] [id number] [place] [address]- 2374 Jun, [facility] [place] [facility] [address] [id number] [place] 4046 Jun, [facility] [address] [id number], [place] [address]- 2633 Jun, [facility] [address] [id number] [place] [address]- 8493 Jun, [facility] [address] [id number] [place] [address]- 4643 May, [facility] [address] [id number] [place] [address]- 3845 May, [facility] [address] [id number] [place] [address]- 5376 Apr, [facility] [address] [id number] [place] 1942 Apr, [facility] [address] [id number] [place] [address]- 8934 Apr, [facility] [address] [id number] [place] [address]- 5366 Apr, [facility] [address] [id number] [place] [address]- 3956 Apr, [facility] [address] [id number] [place] [address]- 9515 Apr, [facility] [address] [id number] [place] [address]- 1874 Mar, [facility] [place] [facility] [address] [id number] [place] [address]- 3696 Mar, [facility] [place] [facility] [address] [id number], [place] [address]- 2527 Mar, [facility] [place] [facility] [address] [id number] [place] [address]- 5260 Mar, [facility] [place] [facility] [address] [id number] [place] [address]- 2319 Mar, [facility] [place] [facility] [address] [id number] [place] [address]- 1185 Mar, [facility] [place] [facility] [address] [id number] [place] [address]- 0926 Feb, [facility] [place] [facility] [address] [id number] [place] [address]- 2596 Feb, [facility] [place] [facility] [address] [id number] [place] [address]- 6756 Feb, [facility] [place] [facility] [address] [id number] [place] [address]- 1406 Feb, [facility] [place] [facility] [address] [id number] [place] [address]- 4875 Feb, [facility] [place] [facility] [address] [id number] [place] [address]- 4072 Jan, [facility] [place] [facility] [address] [id number] [place] [address]- 0625 Jan, [facility] [place] [facility] [address] [id number] [place] [address]- 7544 Jan, [facility] [place] [facility] [address] [id number] [place] [address] Dec, [facility] [place] [facility] [address] [id number] [place] [address] Dec, [facility] [place] [facility] [address] [id number] [place] [address] Nov, [facility] [place] [facility] [address] [id number] [address] Oct, [facility] [place] [facility] [address] [id number] [place] [address] Oct, [facility] [place] [facility] [address] [id number] [place] [address] Oct, [facility] [place] [facility] [address] [id number] [place] [address] Oct, [facility] [place] [facility] [address] [id number] [place] [address] Oct, [facility] [place] [facility] [address] [id number] [place] [address] 16 Sep, 2011 [facility] [address] [id number] [place] [address] 18 Aug, 2011 [facility] [place] [facility] [address] [id number] [place] [address] 18 Aug, 2011 [facility] [address] [id number] [place] [address] 17 Aug, 2011 [facility] [address] [id number] [place] [address] 16 Aug, 2011 [facility] [address] [id number] [place] [address] 13 Aug, 2011 [facility] [address] [id number] [place] [address] 11 Aug, 2011 [facility] [address] [id number] [place] [address] Aug, [facility] [address] [id number] [place] [address] 05 Aug, 2011 [facility] [address] [id number] [place] [address] 05 Aug, 2011 [facility] [address] [id number] [place] [address] 20 Jul, 2011 [facility] [address] [id number] [place] [address] Jul, [facility] [address] [id number] [place] [address] Jul, [facility] [place] [facility] [address] [id number] [place] [address] 17 Jul, 2011 [facility] [address] [id number] [place] [address] 08 Jul, 2011 [facility] [address] [id number] [place] [address] 15 Jun, 2011 [facility] [address] [id number] [place] [address] 14 Jun, 2011 [facility] [place] [facility] [address] [id number] [place] [address]- [address]98 08 Jun, 2011 [facility] [place] [facility] [address] [id number] [place] [address]- [address] 08 Jun, 2011 [facility] [place] [facility] [address] [id number] [place] [address]- [address] May, [facility] [address] [id number] [place] [address] May, [facility] [place] [facility] [address] [id number] [place] [address] May, [facility] [place] [facility] [address] [id number] [place] [address] May, [facility] [place] [facility] [address] [id number] [place] [address] May, [facility] [address] [id number] [place] [address] May, [facility] [place] [facility] [address] [id number] [place] [address] May, [facility] [address] [id number] [place] [address] 21 Apr, 2011 [facility] [place] [facility] [address] [id number] [address] Apr, [facility] [place] [facility] [address] [id number] [place] [address] Apr, [facility] [place] [facility] [address] [id number] [place] [address] Apr, [facility] [place] [facility] [address] [id number] [place] [address] 13 Apr, 2011 [facility] [place] [facility] [address] [id number] [place] [address] Apr, [facility] [address] [id number] [place] [address] Apr, [facility] [place] [facility] [address] [id number] [place] [address] Apr, [facility] [address] [id number] [place] [address] Apr, [facility] [place] [facility] [address] [id number] [place] [address] Apr, [facility] [address] [id number] [place] [address] Mar, [facility] [address] [id number] [place] [address] Mar, [facility] [address] [id number] [place] [address] Feb, [facility] [address] [id number] [place] [address] Jun, [facility] [address] [id number] [place] [address] Apr, [facility] [address] [id number] [place] [address] Feb, [facility] [place] [facility] [address] [id number] [place] [address] Feb, [facility] [place] [facility] [address] [id number] [place] [address] Feb, [facility] [place] [facility] [address] [id number] [place] [address] Apr, [facility] [place] [facility] [address] [id number] [place] [address] Apr, [facility] [place] [facility] [address] [id number] [place] [address] Mar, [facility] [address] [facility] [id number] [address] Mar, [facility] [address] [id number] [address] Mar, [facility] [address] [id number] [address] Feb, [facility] [id number] [address] Feb, [facility] [address] [id number] [address] Feb, [facility] [address] [id number], [place] [address] Jan, IMMUNIZATIONS No Known Immunizations SOCIAL HISTORY Never Assessed REASON FOR VISIT PLAN OF CARE VITAL SIGNS MEDICATIONS Medication Instructions Dosage Frequency Start Date End Date Duration Status Depo-Testosterone 100 MG/ML Intramuscular 2 times a month 1 ml Feb, Active RESULTS No Results PROCEDURES No [...]
--- OUTSIDE RECORDS SUMMARY | 2018-04-28 05:45 | XMS REPORT ---
Author Author MARLEY MCGRATH [facility] Address [address] [place] [address] Care Team Providers Care Assessment Analyst Name Role Phone MARLEY MCGRATH Unavailable PROBLEMS Type Condition ICD9-CM Code KSQ82-CC Code Onset Dates Condition Status SNOMED Code Problem Knee pain, right M25.561 Active 32331442 Problem 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.01 Active 4011982 Problem Hypertriglyceridemia E78.1 Active 082196357 Problem Type 2 diabetes mellitus without complications E11.9 Active 785354740 Problem Diabetes type 2, controlled E11.9 Active 75921169 Problem Hammertoe of right foot M20.41 Active 745551946 Problem shelter (current) use of anticoagulants Z79.01 Active 298726431 ALLERGIES Substance Reaction Event Type Date Status Sulfamethoxazole-Trimethoprim Unknown Drug Allergy Jun, Active SOCIAL HISTORY No smoking Hx information available PLAN OF CARE VITAL SIGNS Height 69 in 2016-06-08 Weight 256.2 lbs 2016-06-08 Temperature 98.0 degrees Fahrenheit 2016-06-08 Heart Rate 78 bpm 2016-06-08 Respiratory Rate 22 2016-06-08 BMI 37.83 kg/m2 2016-06-08 Blood pressure systolic 126 mmHg 2016-06-08 Blood pressure diastolic 78 mmHg 2016-06-08 MEDICATIONS Medication Instructions Dosage Frequency Start Date End Date Duration Status Aspirin 81 MG Orally Once a day 1 tablet 24h Active Potassium Chloride Pati ER 10 MEQ TAKE 1 TABLET ONE TIME DAILY 90 Active Clonidine HCl 0.2 MG TAKE 1 TABLET TWICE DAILY 90 Active Enalapril Maleate 5 MG TAKE 1 TABLET TWICE DAILY 90 Active Topamax 50 MG TAKE 1 TABLET TWICE DAILY 90 Active Actos 30 MG Orally Once a day 1 tablet 24h Feb, Active Carvedilol 3.125 MG Orally 2 times a day 1 tablet 12h Active Lovastatin 20 MG TAKE 1 TABLET ONE TIME DAILY (NEED FASTING LIPIDS WITH NEXT APPOINTMENT FOR REFILL) 90 Active Amlodipine Besylate 10 MG TAKE 1 TABLET ONE TIME DAILY 90 Active Warfarin Sodium 6 MG TAKE 1 TABLET ONE TIME DAILY 90 Active Varna 5-325 MG 1 tablet 6h 03 Jun, 2016 Active Paroxetine HCl 40 MG TAKE 1 TABLET ONE TIME DAILY IN THE MORNING 90 Active Blood Glucose Test Strip Test Strips as directed Nov, Active Metformin HCl 500 MG Orally Twice a day 1 1/2 tablets 12h Active Clonazepam 1 MG Orally 3 times a day 1 tablet 8h 24 Jun, 2014 Active RESULTS Name Result Date Reference Range A1C (IN HOUSE) 2016-06-08 A1C IN HOUSE 7.0 4.3 - 5.6 % Previous A1c 7.1 Lot [id number] Exp date 03/2018 INR (IN HOUSE) 2016-06-08 INR 2.1 1.10 - 3.30 PREVIOUS INR 2.6 CURRENT COUMADIN DOSE 6mg daily NEW COUMADIN DOSE Lot # [id number] Exp date 03/2017 MICROALBUMIN, URINE (IN HOUSE) 2016-06-08 MICROALBUMIN Normal Lot # [id number] Exp date 06/2017 Clarity clear Color yellow ALB 30 CRE 300 A:C (IN HOUSE) <30 Control Control Lot # Exp date PROCEDURES Procedure Date Ordered Related Diagnosis Body Site GLYCATED HEMOGLOBIN TEST Jun 08, 2016 MICROALBUMIN, SEMIQUANT Jun 08, 2016 Office Visit, Est Pt., Level 3 Jun 08, 2016 [facility] VISIT ESTABLISHED PATIENT Jun 08, 2016 IMMUNIZATIONS No Known Immunizations
--- OUTSIDE RECORDS SUMMARY | 2018-04-28 05:46 | XMS REPORT ---
Author Author MARLEY MCGRATH Organization [facility] Address [address] [place] [address] Care Team Providers Care Rn Home Care Name Role Phone MARLEY MCGRATH Unavailable PROBLEMS Type Condition ICD9-CM Code NHC13-WD Code Onset Dates Condition Status SNOMED Code Problem Knee pain, right M25.561 Active 88962095 Problem Type 2 diabetes mellitus without complications E11.9 Active 762594716 Problem Diabetes type 2, controlled E11.9 Active 89238499 Problem Hypogonadism in male E29.1 Active 76253064 Problem 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.01 Active 4961221 Problem Chronic fatigue R53.82 Active 78997326 Problem Hammertoe of right foot M20.41 Active 628493414 Problem alf (current) use of anticoagulants Z79.01 Active 202912627 Problem Moderate episode of recurrent major depressive disorder F33.1 Active 180115635 Problem Hypertriglyceridemia E78.1 Active 238472560 ALLERGIES Substance Reaction Event Type Date Status Sulfamethoxazole-Trimethoprim Unknown Drug Allergy Jan, Active ENCOUNTERS Encounter Location Date Diagnosis [facility] [id number] [place] [address] 79128- 7921 Aug, [facility] [id number] [place] [address] 08364- 6007 Aug, Medicare welcome exam Z00.00 [facility] [id number] [place] [address] 76231- 7637 Aug, [facility] [id number] [place] [address] 64214 -5734 Aug, Hypogonadism in male E29.1 [facility] [id number] [place] [address] 10422- 2965 Jul, [facility] [id number] [place] [address] 49080- 2920 Jul, Hypogonadism in male E29.1 [facility] [id number] [place] [address] 22174- 1743 Jul, [facility] [id number] [place] [address] 51374 -1105 Jul, Hypogonadism in male E29.1 [facility] [id number] [place] [address] 84923- 1458 Jul, Medicare welcome exam Z00.00 [facility] [id number] [place] [address] 05546- 7093 Jun, Medicare welcome exam Z00.00 [facility] [id number] [place] [address] 71727 -4202 Jun, Fever R50.9 and Influenza B J10.1 [facility] [id number] [place] [address] 53198- 9842 Jun, Hypogonadism in male E29.1 [facility] [id number] [place] [address] 22823- 5002 Jun, Diabetes type 2, controlled E11.9 [facility] [id number] [place] [address] 66164- 7562 May, Hypogonadism in male E29.1 [facility] [id number] [place] [address] 98549- 1550 May, alf (current) use of anticoagulants Z79.01 [facility] [address] [address] 4511 Apr, Hypogonadism in male E29.1 [facility] [id number] [place] [address] 19946- 0623 Apr, [facility] [address] [address]- 9457 Apr, Medicare welcome exam Z00.00 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 [facility] [address] [address]- 0481 Apr, Hypogonadism in male E29.1 [facility] [id number] [address]- 4306 Mar, Diabetes type 2, controlled E11.9 [facility] [id number] [place] [address] 10044- 0385 Mar, Hypogonadism in male E29.1 [facility] [id number] [place] [address] 95057- 6150 Mar, Hypogonadism in male E29.1 [facility] [id number] [place] [address] 91587- 9946 Feb, Hypogonadism in male E29.1 [facility] [id number] [place] [address] 10632- 2520 Feb, Malaise R53.81 [facility] [id number] [address]- 0038 Feb, [facility] [id number] [place] [address] 74237- 6599 Feb, Diabetes type 2, controlled E11.9 [facility] [address] [address]- 0861 Feb, Chronic fatigue R53.82 ; Malaise R53.81 and Moderate episode of recurrent major depressive disorder F33.1 [facility] [address] [address]- 9032 Jan, Diabetes type 2, controlled E11.9 [facility] [id number] [place] [address] 30468- 5387 Jan, 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.01 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 [facility] [address] [address]- 7596 Dec, Diabetes type 2, controlled E11.9 and Hypertriglyceridemia E78.1 [facility] [id number] [place] [address] 99482- 7625 Dec, Diabetes type 2, controlled E11.9 [facility] [id number] [place] [address] 68271- 0215 Dec, High risk medication use Z79.899 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 [facility] [id number] [place] [address] 11930- 3860 Dec, High risk medication use Z79.899 [facility] [id number] [place] [address] 51693- 3677 Nov, Diabetes type 2, controlled E11.9 [facility] [id number] [place] [address] 34043- 8072 Oct, Diabetes type 2, controlled E11.9 [facility] [id number] [place] [address] 45348- 8163 September, Diabetes type 2, controlled E11.9 [facility] [id number] [place] [address] 78569- 1214 Aug, alf (current) use of anticoagulants Z79.01 [facility] [id number] [place] [address] 71501- 4125 Aug, alf (current) use of anticoagulants Z79.01 and Hematoma of arm, right, initial encounter S40.021A [facility] [id number] [place] [address] 30375- 1417 Aug, [facility] [id number] [place] [address] 46504 -6988 18 Aug, 2016 Cellulitis of right upper extremity L03.113 [facility] [id number] [place] [address] 29428- 8776 14 Aug, 2016 Diabetes type 2, controlled E11.9 [facility] [id number] [place] [address] 79078- 0029 Aug, Hammertoe of right foot M20.41 ; Hallux abducto valgus, left M20.12 and Onychomycosis B35.1 [facility] [id number] [place] [address] 90295- 9597 Aug, alf (current) use of anticoagulants Z79.01 [facility] [address] 50683- 4169 Aug, alf (current) use of anticoagulants Z79.01 [facility] [address] 75191- 4495 Aug, 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 [facility] [id number] [place] [address] 33527 -4550 Aug, Right shoulder pain M25.511 and Closed nondisplaced fracture of acromial end of right clavicle, initial encounter S42.034A [facility] [id number] [place] [address] 62442- 2040 Jul, Diabetes type 2, controlled E11.9 [facility] [id number] [place] [address] 44527- 2108 Jun, Diabetes type 2, controlled E11.9 and alf (current) use of anticoagulants Z79.01 [facility] [id number] [place] [address] 85710- 5402 May, [facility] [id number] [place] [address] 38522- 3506 Apr, [facility] [address] 76222- 2733 Mar, [facility] [id number] [place] [address] 54676- 0490 Feb, [facility] [id number] [place] [address] 97008- 0667 Dec, Diabetes type 2, controlled E11.9 [facility] [address] [address]- 8519 Dec, [facility] [address] [address]- 4815 Nov, [facility] [address] [address]- 3882 Nov, Type 2 diabetes mellitus without complications E11.9 [facility] [address] [address]- 7926 Oct, Type 2 diabetes mellitus without complications E11.9 [facility] [id number] [place] [address] 42542- 4119 Aug, [facility] [address] [address]- 3016 Aug, Type 2 diabetes mellitus without complications E11.9 [facility] [id number] [place] [address] 90790- 4026 Jun, Type 2 diabetes mellitus without complications E11.9 and 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 [facility] [address] [address]- 0439 May, [facility] [address] [address]- 5072 May, Diabetes type 2, controlled E11.9 [facility] [address] [address]- 6407 Apr, Diabetes type 2, controlled E11.9 [facility] [id number] [address]- 4912 Mar, Diabetes type 2, controlled E11.9 ; Knee pain, right M25.561 ; Other chronic pain G89.29 and Medication monitoring encounter Z51.81 [facility] [address], [place] [address]- 0886 Feb, Type 2 diabetes mellitus without complications E11.9 ; High risk medication use Z79.899 and Anxiety F41.9 [facility] [address] [address]- 8646 Jan, Diabetes 250.00 [facility] [id number] [address] 2546 Dec, Diabetes 250.00 [facility] [id number] [place] [address] 66489 2546 Nov, Diabetes 250.00 [facility] [id number] [place] [address] 63469 2546 Nov, [facility] [id number] [place] [address] 67110- 8384 Oct, Diabetes mellitus type 1 250.01 and High risk medication use V58.69 [facility] [id number] [place] [address] 91571- 7626 Oct, [facility] [address] [address]- 0178 September, [facility] [address] [address]- 5097 Aug, [facility] [address] [address]- 4554 Aug, [facility] [address], [place] [address]- 1796 Jul, [facility] [address], [place] [address] 2546 Jul, [facility] [address], [place] [address]- 3946 Jun, [facility] [address], [place] [address] 2546 Jun, [facility] [address], [place] [address]- 0496 Jun, [facility] [place] [facility] [address] [id number] [place] [address]- 8433 May, [facility] [place] [facility] [address] [id number] [place] [address]- 7483 May, [facility] [place] [facility] [address] [id number] [place] [address]- 5011 Apr, [facility] [place] [facility] [address] [id number] [place] [address]- 1953 Apr, [facility] [place] [facility] [address] [id number] [place] [address]- 2336 Apr, [facility] [place] [facility] [address] [id number] [place] [address]- 3836 Apr, [facility] [place] [facility] [address] [id number] [place] [address]- 6475 Apr, [facility] [place] [facility] [address] [id number] [place] [address]- 6777 Apr, [facility] [place] [facility] [address] [id number] [place] [address]- 5112 Feb, [facility] [place] [facility] [address] [id number] [place] [address]- 8257 Feb, [facility] [place] [facility] [address] [id number] [place] [address]- 4934 Feb, [facility] [place] [facility] [address] [id number] [place] [address]- 8896 Feb, [facility] [place] [facility] [address] [id number] [place] [address]- 4248 Dec, [facility] [place] [facility] [address] [id number] [place] [address]- 4281 Dec, [facility] [place] [facility] [address] [id number] [place] [address]- 5532 Nov, [facility] [place] [facility] [address] [id number] [place] [address]- 3898 Nov, [facility] [place] [facility] [address] [id number] [place] [address]- 6998 Oct, [facility] [place] [facility] [address] [id number] [place] [address]- 5943 Oct, [facility] [place] [facility] [address] [id number] [place] [address]- 7410 Oct, [facility] [place] [facility] [address] [id number] [place] [address]- 1827 Oct, [facility] [place] [facility] [address] [id number] [place] [address]- 7583 Oct, [facility] [place] [facility] [address] [id number] [place] [address]- 5543 Oct, [facility] [place] [facility] [address] [id number] [place] [address]- 4983 September, [facility] [place] [facility] [address] [id number] [place] [address]- 7049 September, [facility] [place] [facility] [address] [id number] [place] [address]- 0195 September, [facility] [place] [facility] [address] [id number] [place] [address]- 3867 September, [facility] [place] [facility] [address] [id number] [place] [address]- 0615 September, [facility] [place] [facility] [address] [id number] [place] [address]- 3733 September, [facility] [place] [facility] [address] [id number] [place] [address]- 2856 Aug, [facility] [place] [facility] [address] [id number] [place] [address]- 6950 Aug, [facility] [place] [facility] [address] [id number] [place] [address]- 5006 Aug, [facility] [place] [facility] [address] [id number] [place] [address]- 2546 Aug, [facility] [place] [facility] [address] [id number] [place] [address]- 4566 Aug, [facility] [place] [facility] [address] [id number] [place] [address]- 2546 Aug, [facility] [place] [facility] [address] [id number] [place] [address] 2546 Jul, [facility] [place] [facility] [address] [id number] [place] [address]- 2546 Jul, [facility] [place] [facility] [address] [id number] [place] [address]- 0206 Jul, [facility] [place] [facility] [address] [id number] [place] [address]- 6696 Jul, [facility] [place] [facility] [address] [id number] [place] [address]- 6784 May, [facility] [address] [id number] [place] [address]- 3190 May, [facility] [place] [facility] [address] [id number] [place] [address]- 9593 Apr, [facility] [place] [facility] [address] [id number] [place] [address]- 8130 Apr, [facility] [place] [facility] [address] [id number] [place] [address]- 2546 Apr, [facility] [place] [facility] [address] [id number] [place] [address]- 9296 Apr, [facility] [place] [facility] [address] [id number] [place] [address]- 2546 Apr, [facility] [place] [facility] [address] [id number] [place] [address]- 2546 Apr, [facility] [place] [facility] [address] [id number] [place] [address]- 2846 Feb, [facility] [place] [facility] [address] [id number] [place] [address]- 8763 Feb, [facility] [place] [facility] [address] [id number] [place] 6683 Feb, [facility] [place] [facility] [address] [id number] [place] 5669 Feb, [facility] [place] [facility] [address] [id number] [place] [address]- 4992 Feb, [facility] [place] [facility] [address] [id number] [place] [address]- 8495 Feb, [facility] [place] [facility] [address] [id number] [place] [address]- 5415 Feb, [facility] [place] [facility] [address] [id number] [place] [address]- 7469 Feb, [facility] [place] [facility] [address] [id number] [address]- 9548 Jan, [facility] [place] [facility] [address] [id number] [place] [address]- 7319 Jan, [facility] [place] [facility] [address] [id number], [place] [address]- 4579 Jan, [facility] [place] [facility] [address] [id number], [place] [address]- 4332 Jan, [facility] [place] [facility] [address] [id number], [place] [address]- 4288 Dec, [facility] [place] [facility] [address] [id number] [place] [address]- 6678 Dec, [facility] [place] [facility] [address] [id number], [place] [address]- 9125 Dec, [facility] [place] [facility] [address] [id number] [place] [address]- 7559 Nov, [facility] [place] [facility] [address] [id number] [place] [address]- 4552 Nov, [facility] [address] [id number] [place] [address]- 1799 Oct, [facility] [address] [id number] [place] [address]- 6044 September, [facility] [address] [id number] [place] [address]- 9222 September, [facility] [address] [id number] [place] [address]- 9013 September, [facility] [address] [id number] [place] [address]- 5096 Aug, [facility] [address] [id number] [place] [address]- 9346 16 Aug, 2012 [facility] [address] [id number] [place] [address]- 6954 15 Aug, 2012 [facility] [address] [id number] [place] [address]- 9501 Jul, [facility] [address] [id number] [place] [address]- 3905 Jul, [facility] [address] [id number] [place] [address]- 9507 Jun, [facility] [address] [id number] [place] [address]- 0408 Jun, [facility] [address] [id number] [place] [address]- 4584 Jun, [facility] [place] [facility] [address] [id number] [place] [address]- 2487 06 Jun, 2012 [facility] [place] [facility] [address] [id number] [place] [address]- 2157 May, [facility] [place] [facility] [address] [id number] [place] [address]- 6602 May, [facility] [place] [facility] [address] [id number] [place] [address]- 6087 Apr, [facility] [place] [facility] [address] [id number] [place] [address]- 9385 Apr, [facility] [place] [facility] [address] [id number] [place] [address]- 3138 Apr, [facility] [place] [facility] [address] [id number] [place] [address]- 4077 Apr, [facility] [place] [facility] [address] [id number] [place] [address]- 5323 Apr, [facility] [place] [facility] [address] [id number] [place] [address]- 1439 Apr, [facility] [place] [facility] [address] [facility] [id number] [place] [address]- 5109 Mar, [facility] [place] [facility] [address] [id number] [place] [address] Mar, [facility] [place] [facility] [address] [id number] [place] [address] Mar, [facility] [place] [facility] [address] [facility] [id number], [place] [address] Mar, [facility] [place] [facility] [address] [facility] [id number], [place] [address] Mar, [facility] [place] [facility] [address] [id number], [place] [address] Mar, [facility] [place] [facility] [address] [id number] [place] [address] Feb, [facility] [place] [facility] [address] [id number], [place] [address] Feb, [facility] [place] [facility] [address] [id number], [place] [address] Feb, [facility] [place] [facility] [address] [id number], [place] [address] Feb, [facility] [place] [facility] [address] [id number] [place] [address] Feb, [facility] [place] [facility] [address] [id number] [place] [address] Jan, [facility] [place] [facility] [address] [id number] [place] [address] Jan, [facility] [place] [facility] [address] [id number] [place] [address] Jan, [facility] [place] [facility] [address] [id number] [place] [address] Dec, [facility] [place] [facility] [address] [id number] [place] [address] Dec, [facility] [place] [facility] [address] [id number] [place] [address] Nov, [facility] [place] [facility] [address] [id number] [place] [address] Oct, [facility] [place] [facility] [address] [id number] [place] [address] Oct, [facility] [place] [facility] [address] [id number] [place] [address] Oct, [facility] [place] [facility] [address] [id number] [place] [address] Oct, [facility] [place] [facility] [address] [id number] [place] [address] Oct, [facility] [place] [facility] [address] [id number] [place] [address] September, [facility] [place] [facility] [address] [id number] [place] [address] Aug, [facility] [place] [facility] [address] [id number] [place] [address] Aug, [facility] [place] [facility] [address] [id number] [place] [address] 17 Aug, 2011 [facility] [place] [facility] [address] [id number] [place] [address] 16 Aug, 2011 [facility] [place] [facility] [address] [id number] [place] [address] 13 Aug, 2011 [facility] [place] [facility] [address] [id number] [place] [address]- [address] 11 Aug, 2011 [facility] [place] [facility] [address] [id number] [place] [address] 11 Aug, 2011 [facility] [place] [facility] [address] [id number] [place] [address]- [address] 05 Aug, 2011 [facility] [place] [facility] [address] [id number] [place] [address] 05 Aug, 2011 [facility] [place] [facility] [address] [id number] [place] [address] 20 Jul, 2011 [facility] [place] [facility] [address] [id number] [place] [address] 20 Jul, 2011 [facility] [place] [facility] [address] [id number] [place] [address] 20 Jul, 2011 [facility] [place] [facility] [address] [id number] [place] [address] 17 Jul, 2011 [facility] [place] [facility] [address] [id number] [place] [address] 08 Jul, 2011 [facility] [place] [facility] [address] [id number] [place] [address] 15 Jun, 2011 [facility] [place] [facility] [address] [id number] [place] [address] 14 Jun, 2011 [facility] [place] [facility] [address] [id number] [place] [address] 08 Jun, 2011 [facility] [place] [facility] [address] [id number] [place] [address] 08 Jun, 2011 [facility] [address] [id number] [place] [address] May, [facility] [place] [facility] [address] [id number] [place] [address] May, [facility] [place] [facility] [address] [facility] [id number] [place] [address] May, [facility] [place] [facility] [address] [id number] [place] [address] May, [facility] [address] [id number] [place] [address] May, [facility] [place] [facility] [address] [id number] [place] [address] May, [facility] [place] [facility] [address] [id number] [place] [address] May, [facility] [place] [facility] [address] [id number], [place] [address] Apr, [facility] [place] [facility] [address] [id number] [place] [address] Apr, [facility] [place] [facility] [address] [id number] [place] [address] Apr, [facility] [place] [facility] [address] [id number], [place] [address] 13 Apr, 2011 [facility] [place] [facility] [address] [id number], [place] [address] 13 Apr, 2011 [facility] [place] [facility] [address] [id number] [place] [address] Apr, [facility] [place] [facility] [address] [id number] [place] [address] 13 Apr, 2011 [facility] [place] [facility] [address] [id number] [place] [address] 12 Apr, 2011 [facility] [place] [facility] [address] [id number] [place] [address] Apr, [facility] [address] [id number] [place] [address] Apr, [facility] [place] [facility] [address] [id number] [place] [address] Mar, [facility] [address] [id number] [place] [address] Mar, [facility] [place] [facility] [address] [id number] [place] [address] Feb, [facility] [address] [id number] [place] [address] Jun, [facility] [place] [facility] [address] [id number] [place] [address] Apr, [facility] [place] [facility] [address] [id number] [place] [address] Feb, [facility] [address] [id number] [place] [address] Feb, [facility] [place] [facility] [address] [facility] [id number] [place] [address] Feb, [facility] [address] [facility] [id number] [place] [address] Apr, [facility] [place] [facility] [address] [id number] [place] [address] Apr, [facility] [place] [facility] [address] [id number] [place] [address] Mar, [facility] [place] [facility] [address] [id number] [place] [address] Mar, [facility] [place] [facility] [address] [facility] [id number] [place] [address] Mar, [facility] [place] [facility] [address] [facility] [id number] [place] [address] Feb, [facility] [address] [facility] [facility] [id number] [place] [address] Feb, [facility] [address] [facility] [id number] [place] [address] [address] Feb, [facility] [address] [facility] [id number][place] [address] [address] Jan, IMMUNIZATIONS No Known Immunizations SOCIAL HISTORY Never Assessed REASON FOR VISIT Fatigue, feel sleepy/fatigue all the time for about a couple of months--Rashmi Gan MA PLAN OF CARE VITAL SIGNS Height 69 in 2017-01-14 Weight 246.9 lbs 2017-01-14 Temperature 98.3 degrees Fahrenheit 2017-01-14 Heart Rate 84 bpm 2017-01-14 Respiratory Rate 20 2017-01-14 BMI 36.46 kg/m2 2017-01-14 Blood pressure systolic 130 mmHg 2017-01-14 Blood pressure diastolic 84 mmHg 2017-01-14 MEDICATIONS Medication Instructions Dosage Frequency Start Date End Date Duration Status Metformin HCl 500 MG TAKE 1 AND 1/2 TABLETS TWICE DAILY 90 Active Actos 30 MG Orally Once a day 1 tablet 24h Feb, Active Enalapril Maleate 5 MG TAKE 1 TABLET TWICE DAILY (APPOINTMENT NEEDED FOR FURTHER REFILLS) 90 Active Amlodipine Besylate 10 MG TAKE 1 TABLET ONE TIME DAILY (APPOINTMENT NEEDED FOR FURTHER REFILLS) 90 Active Potassium Chloride Pati ER 10 MEQ 1 tablet with food 24h Active Underwood 5-325 MG Orally every 6 hrs 1 tablet 6h Dec, Active Aspirin 81 MG Orally Once a day 1 tablet 24h Active Topamax 50 mg 1 tablet 12h 90 Active Lovastatin 20 mg 1 tablet with a meal 24h Active Clonidine HCl 0.2 MG 1 tablet 12h 90 Active Blood Glucose Test Strip Test Strips as directed Nov, Active Clonazepam 1 MG Orally 3 times a day 1 tablet 8h 24 Jun, 2014 28 days Active Warfarin Sodium 6 MG TAKE 1 TABLET EVERY DAY 90 Active Carvedilol 3.125 MG Orally 2 times a day 1 tablet 12h Active Paroxetine HCl 40 MG TAKE 1 TABLET ONE TIME DAILY IN THE MORNING 90 Active RESULTS No Results PROCEDURES Procedure Date Ordered Result Body Site [facility] VISIT ESTABLISHED PATIENT Jan 14, 2017 INSTRUCTIONS MEDICATIONS ADMINISTERED No Known [...]
--- OUTSIDE RECORDS SUMMARY | 2018-04-28 05:47 | XMS REPORT ---
Author MARLEY Barrera Organization [employer] Address Unknown Phone Unavailable Care Team Providers Care Senior Case Manager Name Role Phone MARLEY MCGRATH CP Unavailable Allergies No Known Allergies Problems Problem Type Condition Code Onset Dates Condition Status Problem Knee pain, right M25.561 Active Problem Diabetes type 2, controlled E11.9 Active Medications No Known Medications Results No Known Results Summary Purpose [employer] Submission
--- OUTSIDE RECORDS SUMMARY | 2018-04-28 05:47 | XMS REPORT ---
Author Author MARLEY MCGRATH Organization [employer] Address Unknown Phone Unavailable Care Team Providers Care Data Entry Name Role Phone MARLEY MCGRATH CP Unavailable Allergies No Known Allergies Problems Problem Type Condition Code Onset Dates Condition Status Problem Diabetes type 2, controlled E11.9 Active Problem Knee pain, right M25.561 Active Problem Type 2 diabetes mellitus without complications E11.9 Active Medications Medication Code System Code Instructions Start Date End Date Status Dosage Actos [facility] [address]-84 30 MG Orally Once a day Feb 25, [address] [facility] [address]-73 81 MG Orally Once a day 1 tablet Clonidine HCl [facility] [address]-35 0.2 MG Orally 2 times a day 1 tablet Blood Glucose Test Strip [facility] 0 Test Strips twice daily December 01, 2014 as directed [place] [facility] [address]-24 5-325 MG every 6 hrs July 26, 2014 1 tablet Metformin HCl [facility] [address]-06 500 MG Orally Twice a day 1 1/2 tablets Potassium Chloride Pati ER [facility] [address]-56 10 MEQ Orally Once a day 1 tablet Enalapril Maleate [facility] [address]-15 5 MG Orally Twice a day 1 tablet Warfarin Sodium [facility] [address]-89 6 MG Orally Once a day 1 tablet Amlodipine Besylate [facility] [address]-41 10 MG Orally Once a day [address] [facility] [address]-41 50 MG Orally Twice a day [address] [facility] 18405719449 20 MG TAKE 1 TABLET ONE TIME DAILY Clonazepam [facility] [address]-56 1 MG Orally 3 times a day Jun 29, 2014 1 tablet Paroxetine HCl [facility] [address]-73 40 MG Orally Once a day 1 tablet in the morning Vital Signs Date/Time: August 26, 2015 Blood Pressure Diastolic 62 mmHg Blood Pressure Systolic 130 mmHg Height 69 in Results No Known Results Summary Purpose [employer] Submission
--- OUTSIDE RECORDS SUMMARY | 2018-04-28 05:48 | XMS REPORT ---
Author Author MARLEY MCGRATH Organization [facility] Address [address] [place] [address] Care Team Providers Care Utility Operator Yarn Name Role Phone MARLEY MCGRATH Unavailable PROBLEMS Type Condition ICD9-CM Code WVR52-PN Code Onset Dates Condition Status SNOMED Code Problem Knee pain, right M25.561 Active 24830242 Problem Type 2 diabetes mellitus without complications E11.9 Active 711703762 Problem Diabetes type 2, controlled E11.9 Active 95132039 Problem Hypogonadism in male E29.1 Active 46708667 Problem 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.01 Active 5836894 Problem Chronic fatigue R53.82 Active 21221869 Problem Hammertoe of right foot M20.41 Active 010672884 Problem skilled nursing (current) use of anticoagulants Z79.01 Active 839871881 Problem Moderate episode of recurrent major depressive disorder F33.1 Active 287697389 Problem Hypertriglyceridemia E78.1 Active 164806295 ALLERGIES No Information ENCOUNTERS Encounter Location Date Diagnosis [facility] [address] [place] [address]703 -7810 Jul, Hypogonadism in male E29.1 [facility] [id number] [place] [address] 08013- 0277 Jul, Medicare welcome exam Z00.00 [facility] [address] [place] [address] 56470- 9885 Jun, Medicare welcome exam Z00.00 [facility] [id number] [place] [address] 95691 -0815 19 Jun, 2017 Fever R50.9 and Influenza B J10.1 [facility] [id number] [place] [address] 81141- 3930 13 Jun, 2017 Hypogonadism in male E29.1 [facility] [address], [place] [address] 2546 Jun, Diabetes type 2, controlled E11.9 [facility] [address], [place] [address] 1836 May, Hypogonadism in male E29.1 [facility] [address], [place] [address] 2546 May, 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 [facility] [address] [address] 2546 Apr, Hypogonadism in male E29.1 [facility] [address] [address] 0[address] Apr, [facility] [address] [address] 4726 Apr, Medicare welcome exam Z00.00 and 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 [facility] [address], [place] [address]- 9506 Apr, Hypogonadism in male E29.1 [facility] [address], [place] [address] 5126 Mar, Diabetes type 2, controlled E11.9 [facility] [address], [place] [address]- 6036 Mar, Hypogonadism in male E29.1 [facility] [address] [address] 1017 Mar, Hypogonadism in male E29.1 [facility] [address] 9736 Feb, Hypogonadism in male E29.1 [facility] [address], [place] [address]- 8353 13 Feb, 2017 Malaise R53.81 [facility] [id number] [address] 3[address] Feb, [facility] [id number] [place] [address] 02723- 7205 Feb, Diabetes type 2, controlled E11.9 [facility] [id number] [place] [address] 34321- 8632 Feb, Chronic fatigue R53.82 ; Malaise R53.81 and Moderate episode of recurrent major depressive disorder F33.1 [facility] [facility] [id number] [place] [address] 41441- 9187 Jan, Diabetes type 2, controlled E11.9 [facility] [facility] [id number] [place] [address] 03854- 0946 Jan, 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.01 and 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 [place] [id number] [place] [address] 83845- 5997 Dec, Diabetes type 2, controlled E11.9 and Hypertriglyceridemia E78.1 [place] [id number] [place] [address] 83964- 4151 Dec, Diabetes type 2, controlled E11.9 [facility] [facility] [id number] [place] [address] 03516- 8173 Dec, High risk medication use Z79.899 and 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 [place] [address] [place] [address] 02500- 2441 Dec, High risk medication use Z79.899 [place] [id number] [place] [address] 68466- 4925 Nov, Diabetes type 2, controlled E11.9 [place] [address] [place] [address] 73673- 3800 Oct, Diabetes type 2, controlled E11.9 [facility] [facility] [address] [place] [address] 43148- 7333 September, Diabetes type 2, controlled E11.9 [place] [address] 13075- 3028 Aug, 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 [place] [address] 73198 -7062 Aug, Right shoulder pain M25.511 and Closed nondisplaced fracture of acromial end of right clavicle, initial encounter S42.034A [place] [address] [place] [address]- 7217 Jul, Diabetes type 2, controlled E11.9 [facility] [address] [place] [address] 80131- 7954 Jun, Diabetes type 2, controlled E11.9 and skilled nursing (current) use of anticoagulants Z79.01 [facility] [address], [place] [address]- 2360 May, [facility] [id number] [place] [address] 21563- 0273 Apr, [facility] [id number] [place] [address] 37523- 1538 Mar, [facility] [id number] [place] [address] 80333- 6195 Feb, [facility] [id number] [place] [address] 58535- 6769 Dec, Diabetes type 2, controlled E11.9 [facility] [address], [place] [address]- 4249 Dec, [facility] [id number] [place] [address] 66776- 7901 Nov, [facility] [address], [place] [address]- 5247 Nov, Type 2 diabetes mellitus without complications E11.9 [facility] [address], [place] [address]- 5847 Oct, Type 2 diabetes mellitus without complications E11.9 [facility] [address], [place] [address]- 7810 Aug, [facility] [address], [place] [address]- 2148 Aug, Type 2 diabetes mellitus without complications E11.9 [facility] [address], [place] [address]- 7428 Jun, Type 2 diabetes mellitus without complications E11.9 and 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 Z79.02 [place] [address] [place] [address] 90262- 8762 May, [facility] [id number] [place] [address] 59251- 7093 May, Diabetes type 2, controlled E11.9 [place] [address] [place] [address] 76327- 7434 Apr, Diabetes type 2, controlled E11.9 [place] [address] [place] [address] 53205- 2241 Mar, Diabetes type 2, controlled E11.9 ; Knee pain, right M25.561 ; Other chronic pain G89.29 and Medication monitoring encounter Z51.81 [place] [address] [place] [address] 42552- 3701 Feb, Type 2 diabetes mellitus without complications E11.9 ; High risk medication use Z79.899 and Anxiety F41.9 [place] [address] [place] [address] 30050- 4047 Jan, Diabetes 250.00 [place] [address] [place] [address] 80418- 1546 Dec, Diabetes 250.00 [place] [address] [place] [address] 07879- 5802 Nov, Diabetes 250.00 [place] [address] [place] [address] 82625- 2055 Nov, [place] [id number] [place] [address] 70001- 8408 Oct, Diabetes mellitus type 1 250.01 and High risk medication use V58.69 [place] [address] [place] [address] 14028- 7560 Oct, [place] [id number] [place] [address] 16071- 4450 September, [facility] [place] [facility] [address] [id number] [place] [address]- 6487 Aug, [facility] [place] [facility] [address] [id number] [place] [address]- 0863 Aug, [facility] [place] [facility] [address] [id number] [place] [address]- 8640 Jul, [facility] [place] [facility] [address] [id number] [place] [address]- 0485 Jul, [facility] [place] [facility] [address] [id number] [place] [address]- 5686 Jun, [facility] [place] [facility] [address] [id number] [place] [address]- 0544 Jun, [facility] [place] [facility] [address] [id number] [place] [address]- 3731 Jun, [facility] [place] [facility] [address] [id number] [place] [address]- 9995 May, [facility] [place] [facility] [address] [id number] [place] [address]- 6836 May, [facility] [place] [facility] [address] [id number] [place] [address]- 9730 Apr, [facility] [place] [facility] [address] [id number] [place] [address]- 1140 Apr, [facility] [place] [facility] [address] [id number] [place] [address]- 7591 Apr, [facility] [place] [facility] [address] [id number] [place] [address]- 3871 Apr, [facility] [place] [facility] [address] [id number] [place] [address]- 4044 Apr, [facility] [place] [facility] [address] [id number] [place] [address]- 9748 Apr, [facility] [place] [facility] [address] [id number] [place] [address]- 3029 Feb, [facility] [place] [facility] [address] [id number] [place] [address]- 8755 Feb, [facility] [place] [facility] [address] [id number] [place] 6023 Feb, [facility] [place] [facility] [address] [id number] [place] [address]- 2579 Feb, [facility] [place] [facility] [address] [id number] [place] [address]- 1097 Dec, [facility] [place] [facility] [address] [id number] [place] [address]- 3884 Dec, [facility] [place] [facility] [address] [id number] [place] [address]- 8664 Nov, [facility] [place] [facility] [address] [id number] [place] [address]- 9122 Nov, [facility] [place] [facility] [address] [id number] [place] [address]- 5703 Oct, [facility] [place] [facility] [address] [id number] [place] [address]- 5630 Oct, [facility] [place] [facility] [address] [id number] [place] [address]- 0154 Oct, [facility] [place] [facility] [address] [id number] [place] [address]- 5968 Oct, [facility] [place] [facility] [address] [id number] [place] [address]- 5649 Oct, [facility] [place] [facility] [address] [id number] [place] [address]- 6335 Oct, [facility] [place] [facility] [address] [id number] [place] [address]- 4668 September, [facility] [place] [facility] [address] [id number] [place] [address]- 4875 September, [facility] [place] [facility] [address] [id number] [place] [address]- 9102 September, [facility] [place] [facility] [address] [id number] [place] [address]- 1778 September, [facility] [place] [facility] [address] [id number] [place] [address]- 4067 September, [facility] [place] [facility] [address] [id number] [place] [address]- 4620 September, [facility] [place] [facility] [address] [id number] [place] [address]- 8446 Aug, [facility] [place] [facility] [address] [id number] [place] [address]- 4183 Aug, [facility] [place] [facility] [address] [id number] [place] [address]- 7066 Aug, [facility] [place] [facility] [address] [id number] [place] [address]- 0676 Aug, [facility] [place] [facility] [address] [id number] [place] [address]- 3944 Aug, [facility] [place] [facility] [address] [id number] [place] [address]- 8935 Aug, [facility] [place] [facility] [address] [id number], [place] [address]- 9559 Jul, [facility] [place] [facility] [address] [id number], [place] [address]- 3684 Jul, [facility] [place] [facility] [address] [id number] [place] [address]- 4574 Jul, [facility] [place] [facility] [address] [id number] [place] [address]- 2937 Jul, [facility] [place] [facility] [address] [id number] [place] [address]- 5786 May, [facility] [place] [facility] [address] [id number], [place] [address]- 1841 May, [facility] [address] [id number] [place] [address]- 1820 Apr, 2012 [facility] [place] [facility] [address] [id number], [place] [address]- 3644 Apr, [facility] [place] [facility] [address] [facility] [id number] [place] [address]- 7425 Apr, [facility] [place] [facility] [address] [id number], [place] [address]- 2069 Apr, [facility] [address] [facility] [id number] [place] [address]- 0989 Apr, [facility] [place] [facility] [address] [facility] [id number] [place] 0800 Apr, [facility] [address] [facility] [id number], [place] [address]- 1304 Feb, [facility] [place] [facility] [address] [id number], [place] [address]- 3272 Feb, [facility] [place] [facility] [address] [facility] [id number], [place] [address]- 5767 Feb, [facility] [place] [facility] [address] [facility] [id number], [place] [address]- 8844 Feb, [facility] [place] [facility] [address] [facility] [id number], [place] [address]- 3790 Feb, [facility] [place] [facility] [address] [facility] [id number], [place] [address]- 9791 Feb, [facility] [place] [facility] [address] [facility] [id number], [place] [address]- 3648 Feb, [facility] [place] [facility] [address] [facility] [id number], [place] [address]- 4732 Feb, [facility] [place] [facility] [address] [facility] [id number], [place] [address]- 7744 Jan, [facility] [place] [facility] [address] [id number] [place] [address]- 4873 Jan, [facility] [address] [id number] [place] [address]- 8471 Jan, [facility] [place] [facility] [address] [id number] [place] [address] 2546 Jan, [facility] [place] [facility] [address] [id number] [place] [address]- 9569 Dec, [facility] [place] [facility] [address] [id number] [place] [address]- 8596 Dec, [facility] [place] [facility] [address] [id number] [place] [address]- 3985 Dec, [facility] [place] [facility] [address] [id number] [place] [address]- 4095 Nov, [facility] [place] [facility] [address] [id number] [place] [address]- 5559 Nov, [facility] [address] [id number] [place] [address]- 0879 Oct, [facility] [address] [id number] [place] [address]- 7497 September, [facility] [address] [id number] [place] [address]- 0981 September, [facility] [place] [facility] [address] [id number] [place] [address]- 4160 September, [facility] [place] [facility] [address] [id number] [place] [address]- 6207 Aug, [facility] [place] [facility] [address] [id number] [place] [address]- 1484 16 Aug, 2012 [facility] [place] [facility] [address] [id number] [place] [address]- 2701 Aug, [facility] [place] [facility] [address] [id number] [place] [address]- 9359 Jul, [facility] [address] [id number] [place] [address]- 5800 Jul, [facility] [place] [facility] [address] [id number] [place] [address]- 7616 Jun, [facility] [place] [facility] [address] [id number] [place] [address]- 7306 Jun, [facility] [place] [facility] [address] [id number] [place] [address]- 9166 Jun, [facility] [place] [facility] [address] [id number] [place] [address]- 6666 Jun, [facility] [place] [facility] [address] [id number] [place] [address]- 3726 May, [facility] [place] [facility] [address] [id number] [place] 5605 May, [facility] [place] [facility] [address] [id number] [place] [address]- 9346 Apr, [facility] [place] [facility] [address] [id number] [place] [address]- 1578 Apr, [facility] [place] [facility] [address] [id number] [place] [address]- 0458 Apr, [facility] [place] [facility] [address] [id number] [place] [address]- 6028 Apr, [facility] [place] [facility] [address] [id number] [place] [address]- 4825 Apr, [facility] [place] [facility] [address] [id number] [place] [address]- 3714 Apr, [facility] [place] [facility] [address] [id number] [place] [address]- 1755 Mar, [facility] [place] [facility] [address] [id number] [place] [address]- 9556 Mar, [facility] [place] [facility] [address] [id number] [place] [address]- 2546 Mar, [facility] [place] [facility] [address] [id number] [place] [address]- 7699 Mar, [facility] [place] [facility] [address] [id number] [place] [address]- 2546 Mar, [facility] [place] [facility] [address] [id number] [place] [address]- 6054 Mar, [facility] [place] [facility] [address] [id number] [place] [address]- 9953 Feb, [facility] [place] [facility] [address] [id number] [place] [address]- 0102 Feb, [facility] [place] [facility] [address] [id number] [place] [address]- 7406 Feb, [facility] [place] [facility] [address] [id number] [place] [address]- 5640 Feb, [facility] [place] [facility] [address] [id number] [place] [address]- 9308 Feb, [facility] [place] [facility] [address] [id number] [place] [address]- 4588 Jan, [facility] [place] [facility] [address] [id number] [place] [address]- 9309 Jan, [facility] [place] [facility] [address] [id number] [place] [address]- 2549 Jan, [facility] [place] [facility] [address] [id number] [place] [address]- 9849 Dec, [facility] [place] [facility] [address] [id number] [place] [address]- 1426 Dec, [facility] [place] [facility] [address] [id number] [place] [address]- 2546 Nov, [facility] [place] [facility] [address] [id number] [place] 5293 Oct, [facility] [place] [facility] [address] [id number] [place] [address]- 5951 Oct, [facility] [place] [facility] [address] [id number] [place] [address]- 9341 Oct, [facility] [place] [facility] [address] [id number] [place] [address]- 4367 Oct, [facility] [place] [facility] [address] [id number] [place] [address]- 9572 Oct, [facility] [place] [facility] [address] [id number] [place] [address]- 7781 September, [facility] [place] [facility] [address] [id number] [place] [address] 18 Aug, 2011 [facility] [place] [facility] [address] [id number] [place] [address] Aug, [facility] [place] [facility] [address] [id number] [place] [address] 17 Aug, 2011 [facility] [place] [facility] [address] [id number] [place] [address] 16 Aug, 2011 [facility] [place] [facility] [address] [id number] [place] [address] 13 Aug, 2011 [facility] [place] [facility] [address] [id number] [place] [address] Aug, [facility] [place] [facility] [address] [id number], [place] [address] Aug, [facility] [place] [facility] [address] [id number] [place] [address] Aug, [facility] [place] [facility] [address] [id number] [place] [address] 05 Aug, 2011 [facility] [place] [facility] [address] [id number] [place] [address] Jul, [facility] [place] [facility] [address] [id number], [place] [address] 20 Jul, 2011 [facility] [address] [id number] [place] [address] 20 Jul, 2011 [facility] [place] [facility] [address] [id number] [place] [address] 17 Jul, 2011 [facility] [address] [id number] [place] [address] 08 Jul, 2011 [facility] [place] [facility] [address] [id number] [place] [address] 15 Jun, 2011 [facility] [place] [facility] [address] [id number] [place] [address] 14 Jun, 2011 [facility] [place] [facility] [address] [id number] [place] [address] 08 Jun, 2011 [facility] [address] [id number] [place] [address] 08 Jun, 2011 [facility] [place] [facility] [address] [id number] [place] [address] May, [facility] [place] [facility] [address] [id number] [place] [address] 13 May, 2011 [facility] [address] [facility] [id number] [place] [address] May, [facility] [place] [facility] [address] [id number] [place] [address] 08 May, 2011 [facility] [place] [facility] [address] [id number] [place] [address] 06 May, 2011 [facility] [place] [facility] [address] [id number] [place] [address] 04 May, 2011 [facility] [place] [facility] [address] [id number] [place] [address] May, [facility] [place] [facility] [address] [id number] [place] [address] Apr, [facility] [place] [facility] [address] [id number] [place] [address] Apr, [facility] [address] [id number] [place] [address] Apr, [facility] [place] [facility] [address] [id number] [place] [address] Apr, [facility] [address] [id number] [place] [address] Apr, [facility] [address] [id number] [place] [address] Apr, [facility] [address] [id number] [place] [address] Apr, [facility] [address] [id number] [place] [address] Apr, [facility] [address] [id number] [place] [address] Apr, [facility] [address] [id number] [place] [address] Apr, [facility] [address] [id number] [place] [address] Mar, [facility] [address] [id number] [place] [address] Mar, [facility] [address] [id number] [place] [address] Feb, [facility] [place] [facility] [address] [id number] [place] [address] Jun, [facility] [place] [facility] [address] [id number] [place] [address] Apr, [facility] [place] [facility] [address] [id number] [place] [address] Feb, [facility] [place] [facility] [address] [id number], [place] [address] Feb, [facility] [address] [facility] [id number], [place] [address] Feb, [facility] [address] [facility] [id number], [place] [address] Apr, [facility] [address] [facility] [id number], [place] [address] Apr, [facility] [address] [facility] [id number], [place] [address] Mar, [facility] [address] [facility] [id number], [place] [address] Mar, [facility] [address] [facility] [facility] [id number] [address] Mar, [facility] [id number], [place] [address] Feb, [facility] [id number], [place] [address] Feb, [facility] [id number], [place] [address] Feb, [facility] [address] [facility] [id number], [place] [address] Jan, IMMUNIZATIONS No Known Immunizations SOCIAL HISTORY Never Assessed REASON FOR VISIT Controlled Med Refill PLAN OF CARE VITAL SIGNS MEDICATIONS Medication Instructions Dosage Frequency Start Date End Date Duration Status Clonazepam 1 MG Orally 3 times a day 1 tablet 8h Jun, 28 days Active [place] 5-325 MG Orally every 6 hrs 1 tablet 6h Oct, 15 Active RESULTS No Results PROCEDURES No [...]
--- OUTSIDE RECORDS SUMMARY | 2018-04-28 05:48 | XMS REPORT ---
Author Author MARLEY MCGRATH Organization [employer] Address Unknown Phone Unavailable Care Team Providers Care Hr Systems Analyst Name Role Phone MARLEY MCGRATH CP Unavailable Allergies No Known Allergies Problems Problem Type Condition ICD-9 Code Onset [...] Instructions Start Date End Date Status Dosage Clonazepam [facility] [address]-04 1 MG Orally Twice a day Jun 29, 2014 take 1 tablet Results No Known Results Summary Purpose [employer] Submission
--- OUTSIDE RECORDS SUMMARY | 2018-04-28 05:48 | XMS REPORT ---
Author Author MARLEY MCGRATH Organization [facility] Address [address] [place] [address] Care Team Providers Care Land Resource Specialist Name Role Phone ALCIDES MARLEY Unavailable PROBLEMS Type Condition ICD9-CM Code PFT33-NL Code Onset Dates Condition Status SNOMED Code Problem Knee pain, right M25.561 Active 27211765 Problem 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.01 Active 8020745 Problem Hypertriglyceridemia E78.1 Active 191808064 Problem Type 2 diabetes mellitus without complications E11.9 Active 419078535 Problem Diabetes type 2, controlled E11.9 Active 60477295 Problem Hammertoe of right foot M20.41 Active 198587837 Problem FPC (current) use of anticoagulants Z79.01 Active 389002640 ALLERGIES No Information SOCIAL HISTORY Never Assessed PLAN OF CARE VITAL SIGNS MEDICATIONS Medication Instructions Dosage Frequency Start Date End Date Duration Status [place] 5-325 MG 1 tablet 6h Jul, Active Clonazepam 1 MG Orally 3 times [...]
[2018-04-28 05:49] LABS: BACTERIA,URINE TRACE /HPF; BILIRUBIN,URINE NEGATIVE (NEGATIVE); CLARITY,URINE CLEAR; COLOR,URINE YELLOW; GLUCOSE, URINE (UA) NEGATIVE (NEGATIVE); KETONES,URINE 1+ (NEGATIVE); LEUKOCYTE ESTERASE ,URINE NEGATIVE (NEGATIVE); NITRITE,URINE NEGATIVE (NEGATIVE); PH,URINE 5 (5-9); PROTEIN,URINE 3+ (NEGATIVE); RBC,URINE 0-2 /HPF; UROBILINOGEN,URINE NORMAL (NORMAL)
[2018-04-28 05:50] LABS: AMORPHOUS SEDIMENT,UR FEW AMOR URATES /LPF; SQUAMOUS EPITHELIAL CELL,UR 0-2 /HPF
--- OUTSIDE RECORDS SUMMARY | 2018-04-28 05:50 | XMS REPORT | Continuity of Care Document ---
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 LINUX SYSTEM ADMINISTRATOR (CURRENT) DRUG THERAPY 02/27/2016 YOHANA SCHMIDT MD Ot 401.9 HYPERTENSION NOS 02/27/2016 YOHANA SCHMIDT MD Ot 414.01 CORONARY ATHEROSCLEROSIS OF [place] CORON 02/27/2016 YOHANA SCHMIDT MD Ot 401.9 HYPERTENSION NOS 02/27/2016 YOHANA SCHMIDT MD Ot 414.00 CORON ATHEROSCLER NOS TYPE VESSEL, NATIV 02/27/2016 YOHANA SCHMIDT MD Ot 424.0 MITRAL VALVE DISORDER 02/27/2016 YOHANA SCHMIDT MD Ot 429.3 CARDIOMEGALY 02/27/2016 MARLEY MCGRATH Ot Z51.81 ENCOUNTER FOR THERAPEUTIC DRUG LEVEL MON 02/27/2016 MARLEY MCGRTAH Ot Z79.899 OTHER [facility] (CURRENT) DRUG THERAPY 02/27/2016 YOHANA SCHMIDT MD Ot I10 ESSENTIAL (PRIMARY) HYPERTENSION 02/27/2016 YOHANA SCHMIDT MD Ot I25.10 ATHSCL HEART DISEASE OF [place] CORONARY 02/27/2016 YOHANA SCHMIDT MD Ot I49.5 SICK SINUS SYNDROME 02/27/2016 YOHANA SCHMIDT MD Ot I65.23 OCCLUSION AND STENOSIS OF BILATERAL [place] 02/27/2016 YOHANA SCHMIDT MD Ot I10 ESSENTIAL (PRIMARY) HYPERTENSION 02/27/2016 YOHANA SCHMIDT MD Ot I25.10 ATHSCL HEART DISEASE OF [place] CORONARY 02/27/2016 YOHANA SCHMIDT MD Ot I49.5 SICK SINUS SYNDROME 02/27/2016 YOHANA SCHMIDT MD Ot I65.23 OCCLUSION AND STENOSIS OF BILATERAL [place] 02/27/2016 YOHANA SCHMIDT MD Ot I10 ESSENTIAL (PRIMARY) HYPERTENSION 02/27/2016 YOHANA SCHMIDT MD Ot I25.10 ATHSCL HEART DISEASE OF [place] CORONARY 02/27/2016 YOHANA SCHMIDT MD Ot I49.5 SICK SINUS SYNDROME 02/27/2016 YOHANA SCHMIDT MD Ot I65.23 OCCLUSION AND STENOSIS OF BILATERAL [place] 02/27/2016 YOHANA SCHMIDT MD Ot I10 ESSENTIAL (PRIMARY) HYPERTENSION 02/27/2016 YOHANA SCHMIDT MD Ot I25.10 ATHSCL HEART DISEASE OF [place] CORONARY 02/27/2016 YOHANA SCHMIDT MD Ot I49.5 SICK SINUS SYNDROME 02/27/2016 YOHANA SCHMIDT MD Ot I65.23 OCCLUSION AND STENOSIS OF BILATERAL [place] 02/27/2016 YOHANA SCHMIDT MD Ot 401.9 HYPERTENSION NOS 02/27/2016 YOHANA SCHMIDT MD Ot 414.01 CORONARY ATHEROSCLEROSIS OF [place] CORON 02/27/2016 YOHANA SCHMIDT MD Ot 401.9 HYPERTENSION NOS 02/27/2016 YOHANA SCHMIDT MD Ot 414.00 CORON ATHEROSCLER NOS TYPE VESSEL, NATIV 02/27/2016 YOHANA SCHMIDT MD Ot 424.0 MITRAL VALVE DISORDER 02/27/2016 YOHANA SCHMIDT MD Ot 429.3 CARDIOMEGALY 09/02/2017 YOHANA SCHMIDT MD Ot 401.9 HYPERTENSION NOS 09/02/2017 YOHANA SCHMIDT MD Ot 414.01 CORONARY ATHEROSCLEROSIS OF [place] CORON 09/02/2017 YOHANA SCHMIDT MD Ot 401.9 HYPERTENSION NOS 09/02/2017 YOHANA SCHMIDT MD Ot 414.00 CORON ATHEROSCLER NOS TYPE VESSEL, NATIV 09/02/2017 YOHANA SCHMIDT MD Ot 424.0 MITRAL VALVE DISORDER 09/02/2017 YOHANA SCHMIDT MD Ot 429.3 CARDIOMEGALY 09/02/2017 MARLEY MCGRATH Ot Z51.81 ENCOUNTER FOR THERAPEUTIC DRUG LEVEL MON 09/02/2017 MARLEY MCGRATH Ot Z79.899 OTHER [facility] (CURRENT) DRUG THERAPY 09/02/2017 YOHANA SCHMIDT MD Ot I10 ESSENTIAL (PRIMARY) HYPERTENSION 09/02/2017 YOHANA SCHMIDT MD Ot I25.10 ATHSCL HEART DISEASE OF [place] CORONARY 09/02/2017 YOHANA SCHMIDT MD Ot I49.5 SICK SINUS SYNDROME 09/02/2017 YOHANA SCHMIDT MD Ot I65.23 OCCLUSION AND STENOSIS OF BILATERAL [place] 09/02/2017 YOHANA SCHMIDT MD Ot I10 ESSENTIAL (PRIMARY) HYPERTENSION 09/02/2017 YOHANA SCHMIDT MD Ot I25.10 ATHSCL HEART DISEASE OF [place] CORONARY 09/02/2017 YOHANA SCHMIDT MD Ot I49.5 SICK SINUS SYNDROME 09/02/2017 YOHANA SCHMIDT MD Ot I65.23 OCCLUSION AND STENOSIS OF [place]AL [place] 09/02/2017 YOHANA SCHMIDT MD Ot I10 ESSENTIAL (PRIMARY) HYPERTENSION 09/02/2017 YOHANA SCHMIDT MD Ot I25.10 ATHSCL HEART DISEASE OF [place] CORONARY 09/02/2017 YOHANA SCHMIDT MD Ot I63.9 CEREBRAL INFARCTION, UNSPECIFIED 09/02/2017 YOHANA SCHMIDT MD Ot I65.23 OCCLUSION AND STENOSIS OF [place]ILATERAL [place] 09/02/2017 YOHANA SCHMIDT MD Ot R06.00 DYSPNEA, UNSPECIFIED 09/02/2017 YOHANA SCHMIDT MD Ot R07.9 CHEST PAIN, UNSPECIFIED 09/02/2017 YOHANA SCHMIDT MD Ot R94.39 ABNORMAL RESULT OF OTHER CARDIOVASCULAR 09/27/2017 YOHANA SCHMIDT MD Ot I10 ESSENTIAL (PRIMARY) HYPERTENSION 09/27/2017 YOHANA SCHMIDT MD Ot I25.10 ATHSCL HEART DISEASE OF [place] CORONARY 09/27/2017 YOHANA SCHMIDT MD Ot I63.9 CEREBRAL INFARCTION, UNSPECIFIED 09/27/2017 YOHANA SCHMIDT MD Ot I65.23 OCCLUSION AND STENOSIS OF [place] 09/27/2017 YOHANA SCHMIDT MD Ot R06.00 DYSPNEA, UNSPECIFIED 09/27/2017 YOHANA SCHMIDT MD Ot R07.9 CHEST PAIN, UNSPECIFIED 09/27/2017 YOHANA SCHMIDT MD Ot R94.39 ABNORMAL RESULT OF OTHER CARDIOVASCULAR 11/06/2017 ITZEL BERGMAN DO Ot A41.9 SEPSIS, UNSPECIFIED ORGANISM 11/06/2017 ITZEL BERGMAN DO Ot E11.8 TYPE 2 DIABETES MELLITUS WITH UNSPECIFIE 11/06/2017 ITZEL BERGMAN DO Ot E78.5 HYPERLIPIDEMIA, UNSPECIFIED 11/06/2017 ITZEL BERGMAN DO Ot F32.9 MAJOR DEPRESSIVE DISORDER, SINGLE EPISOD 11/06/2017 ITZEL BERGMAN DO Ot F41.9 ANXIETY DISORDER, UNSPECIFIED 11/06/2017 ITZEL BERGMAN DO Ot G47.30 SLEEP APNEA, UNSPECIFIED 11/06/2017 ITZEL BERGMAN DO Ot G89.29 OTHER CHRONIC PAIN 11/06/2017 ITZEL BERGMAN DO Ot I10 ESSENTIAL (PRIMARY) HYPERTENSION 11/06/2017 ITZEL BERGMAN DO Ot I25.10 ATHSCL HEART DISEASE OF [place] CORONARY 11/06/2017 ITZEL BERGMAN DO Ot J18.9 PNEUMONIA, UNSPECIFIED ORGANISM 11/06/2017 ITZEL BERGMAN DO Ot J81.0 ACUTE PULMONARY EDEMA 11/06/2017 ITZEL BERGMAN DO Ot J96.01 ACUTE RESPIRATORY FAILURE WITH HYPOXIA 11/06/2017 ITZEL BERGMAN DO Ot K21.9 GASTRO-ESOPHAGEAL REFLUX DISEASE WITHOUT 11/06/2017 ITZEL BERGMAN DO Ot N17.9 ACUTE KIDNEY FAILURE, UNSPECIFIED 11/06/2017 ITZEL BERGMAN DO Ot R04.2 HEMOPTYSIS 11/06/2017 ITZEL BERGMAN DO Ot R79.1 ABNORMAL COAGULATION PROFILE 11/06/2017 ITZEL BERGMAN DO Ot Z79.84 [facility] (CURRENT) USE OF ORAL HYPOGLYC 11/06/2017 ITZEL BERGMAN DO Ot Z86.73 PRSNL HX OF TIA (TIA), AND CEREB INFRC W 11/06/2017 ITZEL BERGMAN DO Ot Z95.0 PRESENCE OF CARDIAC PACEMAKER 11/06/2017 ITZEL BERGMAN DO Ot Z99.81 DEPENDENCE ON SUPPLEMENTAL OXYGEN 11/06/2017 ITZEL BERGMAN DO Ot A41.9 SEPSIS, UNSPECIFIED ORGANISM 11/06/2017 ITZEL BERGMAN DO Ot E11.8 TYPE 2 DIABETES MELLITUS WITH UNSPECIFIE 11/06/2017 ITZEL BERGMAN DO Ot E78.5 HYPERLIPIDEMIA, UNSPECIFIED 11/06/2017 ITZEL BERGMAN DO Ot F32.9 MAJOR DEPRESSIVE DISORDER, SINGLE EPISOD 11/06/2017 ITZEL BERGMAN DO Ot F41.9 ANXIETY DISORDER, UNSPECIFIED 11/06/2017 ITZEL BERGMAN DO Ot G47.30 SLEEP APNEA, UNSPECIFIED 11/06/2017 ITZEL BERGMAN DO Ot G89.29 OTHER CHRONIC PAIN 11/06/2017 ITZEL BERGMAN DO Ot I10 ESSENTIAL (PRIMARY) HYPERTENSION 11/06/2017 ITZEL BERGMAN DO Ot I25.10 ATHSCL HEART DISEASE OF [place] CORONARY 11/06/2017 ITZEL BERGMAN DO Ot J18.9 PNEUMONIA, UNSPECIFIED ORGANISM 11/06/2017 ITZEL BERGMAN DO Ot J81.0 ACUTE PULMONARY EDEMA 11/06/2017 ITZEL BERGMAN DO Ot J96.01 ACUTE RESPIRATORY FAILURE WITH HYPOXIA 11/06/2017 ITZEL BERGMAN DO Ot K21.9 GASTRO-ESOPHAGEAL REFLUX DISEASE WITHOUT 11/06/2017 ITZEL BERGMAN DO Ot N17.9 ACUTE KIDNEY FAILURE, UNSPECIFIED 11/06/2017 ITZEL BERGMAN DO Ot R04.2 HEMOPTYSIS 11/06/2017 ITZEL BERGMAN DO Ot R79.1 ABNORMAL COAGULATION PROFILE 11/06/2017 ITZEL BERGMAN DO Ot Z79.84 [facility] (CURRENT) USE OF ORAL HYPOGLYC 11/06/2017 ITZEL BERGMAN DO Ot Z86.73 PRSNL HX OF TIA (TIA), AND CEREB INFRC W 11/06/2017 ITZEL BERGMAN DO Ot Z95.0 PRESENCE OF CARDIAC PACEMAKER 11/06/2017 ITZEL BERGMAN DO Ot Z99.81 DEPENDENCE ON SUPPLEMENTAL OXYGEN 11/07/2017 ITZEL BERGMAN DO Ot A41.9 SEPSIS, UNSPECIFIED ORGANISM 11/07/2017 ITZEL BERGMAN DO Ot E11.8 TYPE 2 DIABETES MELLITUS WITH UNSPECIFIE 11/07/2017 ITZEL BERGMAN DO Ot E78.5 HYPERLIPIDEMIA, UNSPECIFIED 11/07/2017 ITZEL BERGMAN DO Ot F32.9 MAJOR DEPRESSIVE DISORDER, SINGLE EPISOD 11/07/2017 BARNIDGITZEL Hoffmann DO Ot F41.9 ANXIETY DISORDER, UNSPECIFIED 11/07/2017 BARNIE ITZEL CAPELLAN Ot G47.30 SLEEP APNEA, UNSPECIFIED 11/07/2017 BARNIE ITZEL CAPELLAN Ot G89.29 OTHER CHRONIC PAIN [facility]/07/2017 [facility] Ot I10 ESSENTIAL (PRIMARY) HYPERTENSION 11/07/2017 ITZEL BERGMAN DO Ot I25.10 ATHSCL HEART DISEASE OF [place] CORONARY 11/07/2017 [facility] Ot J18.9 PNEUMONIA, UNSPECIFIED ORGANISM 11/07/2017 [facility] ITZEL CAPELLAN Ot J81.0 ACUTE PULMONARY EDEMA 11/07/2017 [facility] ITZEL CAPELLAN Ot J96.01 ACUTE RESPIRATORY FAILURE WITH HYPOXIA 11/07/2017 ITZEL BERGMAN DO Ot K21.9 GASTRO-ESOPHAGEAL REFLUX DISEASE WITHOUT 11/07/2017 [place] ITZEL CAPELLAN Ot N17.9 ACUTE KIDNEY FAILURE, UNSPECIFIED 11/07/2017 [facility] Ot R04.2 HEMOPTYSIS 11/07/2017 [facility] Ot R79.1 ABNORMAL COAGULATION PROFILE 11/07/2017 JESSIEITZEL Hoffmann DO Ot Z79.84 LINUX SYSTEM ADMINISTRATOR (CURRENT) USE OF ORAL HYPOGLYC 11/07/2017 BARNIDGITZEL Hoffmann DO Ot Z86.73 PRSNL HX OF TIA (TIA), AND CEREB INFRC W 11/07/2017 [place] DOITZEL Ot Z95.0 PRESENCE OF CARDIAC PACEMAKER 11/07/2017 [facility] Ot Z99.81 DEPENDENCE ON SUPPLEMENTAL OXYGEN 11/07/2017 ITZEL BERGMAN DO Ot A41.9 SEPSIS, UNSPECIFIED ORGANISM 11/07/2017 ITZEL BERGMAN DO Ot E11.8 TYPE 2 DIABETES MELLITUS WITH UNSPECIFIE 11/07/2017 JESSIEDGITZEL Hoffmann DO Ot E29.1 TESTICULAR HYPOFUNCTION 11/07/2017 BARITZEL BO DO Ot E66.9 OBESITY, UNSPECIFIED 11/07/2017 [place] DOITZEL Ot E78.5 HYPERLIPIDEMIA, UNSPECIFIED 11/07/2017 [facility] DOITZEL E Ot F32.9 MAJOR DEPRESSIVE DISORDER, SINGLE EPISOD 11/07/2017 [place] DO, ITZEL E Ot F33.9 MAJOR DEPRESSIVE DISORDER, RECURRENT, UN 11/07/2017 [place] DOITZEL Ot F41.9 ANXIETY DISORDER, UNSPECIFIED 11/07/2017 [place] DOITZEL E Ot G47.30 SLEEP APNEA, UNSPECIFIED 11/07/2017 [facility] DORENETTAT E Ot G89.29 OTHER CHRONIC PAIN 11/07/2017 [facility] DOITZEL E Ot H91.93 UNSPECIFIED HEARING LOSS, BILATERAL 11/07/2017 [place] DOITZEL E Ot I10 ESSENTIAL (PRIMARY) HYPERTENSION 11/07/2017 [place] DOITZEL Ot I11.0 HYPERTENSIVE HEART DISEASE WITH HEART FA 11/07/2017 [place] DOITZEL Ot I25.10 ATHSCL HEART DISEASE OF [place] CORONARY 11/07/2017 [facility] DOITZEL E Ot I50.32 CHRONIC DIASTOLIC (CONGESTIVE) HEART HAWK 11/07/2017 [facility] DOITZEL Ot J18.9 PNEUMONIA, UNSPECIFIED ORGANISM 11/07/2017 [place] DOITZEL Ot J81.0 ACUTE PULMONARY EDEMA 11/07/2017 [facility] DOITZEL Ot J96.01 ACUTE RESPIRATORY FAILURE WITH HYPOXIA 11/07/2017 [place] DOITZEL Ot K21.9 GASTRO-ESOPHAGEAL REFLUX DISEASE WITHOUT 11/07/2017 B[place] DORENETTAT E Ot M19.91 PRIMARY OSTEOARTHRITIS, UNSPECIFIED SITE 11/07/2017 [place] DOITZEL Ot N17.9 ACUTE KIDNEY FAILURE, UNSPECIFIED 11/07/2017 [place] DOITZEL Ot R04.2 HEMOPTYSIS 11/07/2017 [place] DOITZEL Ot R53.82 CHRONIC FATIGUE, UNSPECIFIED 11/07/2017 [place] DOITZEL Ot R79.1 ABNORMAL COAGULATION PROFILE 11/07/2017 ITZEL BERGMAN DO Ot Z68.37 BODY MASS INDEX (BMI) 37.0-37.9, ADULT 11/07/2017 ITZEL BERGMAN DO, Ot Z79.84 [facility] (CURRENT) USE OF ORAL HYPOGLYC 11/07/2017 ITZEL BERGMAN DO Ot Z86.73 PRSNL HX OF TIA (TIA), AND CEREB INFRC W 11/07/2017 ITZEL BERGMAN DO, Ot Z91.19 PATIENT'S NONCOMPLIANCE W OT MEDICAL TR 11/07/2017 ITZEL BERGMAN DO, Ot Z95.0 PRESENCE OF CARDIAC PACEMAKER 11/07/2017 ITZEL BERGMAN DO, Ot Z99.81 DEPENDENCE ON SUPPLEMENTAL OXYGEN Procedures Code [place] [address] INR (IN HOUSE) 04/10/2012 67221 INR (IN HOUSE) 08/19/2012 69826 A1C (IN-HOUSE) 08/22/2012 44336 INR (IN HOUSE) 09/22/2012 Edwin Colindres 09/23/2012 42498 INR (IN HOUSE) 12/29/2012 67526 A1C (IN-HOUSE) 12/29/2012 68252 JOINT INJECTION- LARGE JOINT (SPECIFY MEDCIN DESCRIPTION) 01/22/2013 27882 PT/INR 01/28/2013 87763 INR (IN HOUSE) 02/05/2013 34448 CAPILLARY BLOOD DRAW 07/09/2013 12957 INR (IN HOUSE) 07/09/2013 06917 A1C (IN-HOUSE) 07/09/2013 24682 INR (IN HOUSE) 08/12/2013 07988 PSYCH DIAGNOSTIC EVALUATION 08/13/2013 98360 PSYTX PT&/FAMILY 45 MINUTES 09/11/2013 51272 INR (IN HOUSE) 09/11/2013 74506 PSYTX PT&/FAMILY 45 MINUTES 09/24/2013 13033 PSYTX PT&/FAMILY 45 MINUTES 10/16/2013 87348 A1C (IN-HOUSE) 04/28/2014 Results Test Result Range Lipid Panel - 12/07/16 09:05 Cholesterol, Total 157 mg/dL 100-199 Triglycerides 345 mg/dL 0-149 HDL Cholesterol 34 mg/dL >39 VLDL Cholesterol Calos 69 mg/dL 5-40 LDL Cholesterol Calc 54 mg/dL 0-99 CBC With Differential/Platelet - 02/08/17 09:15 WBC 9.4 x10E3/uL 3.4-10.8 RBC 5.10 x10E6/uL 4.14-5.80 Hemoglobin 14.3 g/dL 12.6-17.7 Hematocrit 44.8 % 37.5-51.0 MCV 88 fL 79-97 MCH 28.0 pg 26.6-33.0 MCHC 31.9 g/dL 31.5-35.7 RDW 14.8 % 12.3-15.4 Platelets 207 x10E3/uL 150-379 Neutrophils 73 % Not Estab. Lymphs 21 % Not Estab. Monocytes 5 % Not Estab. Eos 1 % Not Estab. Basos 0 % Not Estab. Neutrophils (Absolute) 6.9 x10E3/uL 1.4-7.0 Lymphs (Absolute) 1.9 x10E3/uL 0.7-3.1 Monocytes(Absolute) 0.5 x10E3/uL 0.1-0.9 Eos (Absolute) 0.1 x10E3/uL 0.0-0.4 Baso (Absolute) 0.0 x10E3/uL 0.0-0.2 Immature Granulocytes 0 % Not Estab. Immature Grans (Abs) 0.0 x10E3/uL 0.0-0.1 Comp. Metabolic Panel (14) - 02/08/17 09:15 Glucose, Serum 176 mg/dL 65-99 BUN 20 mg/dL 8-27 Creatinine, Serum 1.04 mg/dL 0.76-1.27 eGFR If NonAfricn Am 72 mL/min/1.73 >59 eGFR If Africn Am 83 mL/min/1.73 >59 BUN/Creatinine Ratio 19 10-24 Sodium, Serum 141 mmol/L 134-144 Potassium, Serum 4.4 mmol/L 3.5-5.2 Chloride, Serum 99 mmol/L 96-106 Carbon Dioxide, Total 23 mmol/L 18-29 Calcium, Serum 9.2 mg/dL 8.6-10.2 Protein, Total, Serum 7.3 g/dL 6.0-8.5 Albumin, Serum 3.8 g/dL 3.5-4.8 Globulin, Total 3.5 g/dL 1.5-4.5 A/G Ratio 1.1 1.2-2.2 Bilirubin, Total 0.2 mg/dL 0.0-1.2 Alkaline Phosphatase, S 78 IU/L 39-117 AST (SGOT) 13 IU/L 0-40 ALT (SGPT) 9 IU/L 0-44 Lipid Panel - 02/08/17 09:15 Cholesterol, Total 159 mg/dL 100-199 Triglycerides 330 mg/dL 0-149 HDL Cholesterol 36 mg/dL >39 VLDL Cholesterol Calos 66 mg/dL 5-40 LDL Cholesterol Calc 57 mg/dL 0-99 Testosterone, Serum - 02/08/17 09:15 Testosterone, Serum 151 ng/dL 264-916 Vitamin D, 25-Hydroxy - 02/08/17 09:15 Vitamin D, 25-Hydroxy 21.1 ng/mL 30.0-100.0 CBC - 02/08/17 09:15 WBC 9.4 x10E3/uL 3.4-10.8 RBC 5.10 x10E6/uL 4.14-5.80 Hemoglobin 14.3 g/dL 12.6-17.7 Hematocrit 44.8 % 37.5-51.0 MCV 88 fL 79-97 MCH 28.0 pg 26.6-33.0 MCHC 31.9 g/dL 31.5-35.7 RDW 14.8 % 12.3-15.4 Platelets 207 x10E3/uL 150-379 Neutrophils 73 % Not Estab. Lymphs 21 % Not Estab. Monocytes 5 % Not Estab. Eos 1 % Not Estab. Basos 0 % Not Estab. Neutrophils (Absolute) 6.9 x10E3/uL 1.4-7.0 Lymphs (Absolute) 1.9 x10E3/uL 0.7-3.1 Monocytes(Absolute) 0.5 x10E3/uL 0.1-0.9 Eos (Absolute) 0.1 x10E3/uL 0.0-0.4 Baso (Absolute) 0.0 x10E3/uL 0.0-0.2 Immature Granulocytes 0 % Not Estab. Immature Grans (Abs) 0.0 x10E3/uL 0.0-0.1 Complete blood count (CBC) with automated white blood cell (WBC) differential - 11/04/17 07:11 Blood leukocytes automated count (number/volume) 16.9 10*3/uL 4.3-11.0 Blood erythrocytes automated count (number/volume) 4.97 10*6/uL 4.35-5.85 Venous blood hemoglobin measurement (mass/volume) 13.6 g/dL 13.3-17.7 Blood hematocrit (volume fraction) 42 % 40-54 Automated erythrocyte mean corpuscular volume 84 [foz_us] 80-99 Automated erythrocyte mean corpuscular hemoglobin (mass per erythrocyte) 27 pg 25-34 Automated erythrocyte mean corpuscular hemoglobin concentration measurement ( mass/volume) 33 g/dL 32-36 Automated erythrocyte distribution width ratio 16.5 % 10.0-14.5 Automated blood platelet count (count/volume) 384 10*3/uL 130-400 Automated blood platelet mean volume measurement 11.7 [foz_us] 7.4-10.4 Automated blood neutrophils/100 leukocytes 82 % 42-75 Automated blood lymphocytes/100 leukocytes 10 % 12-44 Blood monocytes/100 leukocytes 8 % 0-12 Automated blood eosinophils/100 leukocytes 0 % 0-10 Automated blood basophils/100 leukocytes 0 % 0-10 Blood neutrophils automated count (number/volume) 13.8 10*3 1.8-7.8 Blood lymphocytes automated count (number/volume) 1.7 10*3 1.0-4.0 Blood monocytes automated count (number/volume) 1.3 10*3 0.0-1.0 Automated eosinophil count 0.0 10*3/uL 0.0-0.3 Automated blood basophil count (count/volume) 0.0 10*3/uL 0.0-0.1 Blood lactic acid measurement (moles/volume) - 11/04/17 07:11 Blood lactic acid measurement (moles/volume) 1.65 mmol/L 0.50-2.00 Comprehensive metabolic panel - 11/04/17 07:11 Serum or plasma sodium measurement (moles/volume) 137 mmol/L 135-145 Serum or plasma potassium measurement (moles/volume) 4.6 mmol/L 3.6-5.0 Serum or plasma chloride measurement (moles/volume) 107 mmol/L 98-107 Carbon dioxide 17 mmol/L 21-32 Serum or plasma anion gap determination (moles/volume) 13 mmol/L 5-14 Serum or plasma urea nitrogen measurement (mass/volume) 22 mg/dL 7-18 Serum or plasma creatinine measurement (mass/volume) 1.41 mg/dL 0.60-1.30 Serum or plasma urea nitrogen/creatinine mass ratio 16 NRG Serum or plasma creatinine measurement with calculation of estimated glomerular filtration rate 49 NRG Serum or plasma glucose measurement (mass/volume) 165 mg/dL 70-105 Serum or plasma calcium measurement (mass/volume) 9.4 mg/dL 8.5-10.1 Serum or plasma total bilirubin measurement (mass/volume) 0.4 mg/dL 0.1-1.0 Serum or plasma alkaline phosphatase measurement (enzymatic activity/volume) 38 U/L 40-136 Serum or plasma aspartate aminotransferase measurement (enzymatic activity/ volume) 25 U/L 5-34 Serum or plasma alanine aminotransferase measurement (enzymatic activity/volume ) 29 U/L 0-55 Serum or plasma protein measurement (mass/volume) 7.1 g/dL 6.4-8.2 Serum or plasma albumin measurement (mass/volume) 3.6 g/dL 3.2-4.5 PT panel in platelet poor plasma by coagulation assay - 11/04/17 07:11 Prothrombin time (PT) in platelet poor plasma by coagulation assay 88.3 s 12.2-14.7 INR in platelet poor plasma or blood by coagulation assay 11.2 0.8-1.4 Activated partial thromboplastin time (aPTT) in platelet poor plasma bycoagulation assay - 11/04/17 07:11 Activated partial thromboplastin time (aPTT) in platelet poor plasma bycoagulation assay 189 s 24-35 Blood manual differential performed detection - 11/04/17 07:11 Blood monocytes/100 leukocytes 4 % NRG Manual blood segmented neutrophils/100 leukocytes 83 % NRG Blood band neutrophils/100 leukocytes 1 % NRG Manual blood lymphocytes/100 leukocytes 11 % NRG Manual eosinophils/100 leukocytes in nose 0 % NRG Manual blood basophils/100 leukocytes 0 % NRG Blood lymphocytes variant/100 leukocytes 1 % NRG Blood anisocytosis detection by light microscopy SLIGHT NRG Blood poikilocytosis detection by light microscopy MODERATE NRG Blood sharan cells detection by light microscopy SLIGHT NRG Blood target cells detection by light microscopy SLIGHT NRG Blood stomatocytes detection by light microscopy SLIGHT NRG Blood hypersegmented neutrophils detection by light microscopy SLIGHT NRG Acanthocyte detection SLIGHT NRG Bacterial blood culture - 11/04/17 07:11 Bacterial blood culture NG NRG Serum or plasma lithium measurement (moles/volume) - 11/04/17 07:42 BNP level 433.7 pg/mL <100.0 Complete urinalysis with reflex to culture - 11/04/17 07:42 Urine color determination YELLOW NRG Urine clarity determination CLEAR NRG Urine pH measurement by test strip 5 5-9 Specific gravity of urine by test strip 1.020 1.016- 1.022 Urine protein assay by test strip, semi-quantitative 2+ NEGATIVE Urine glucose detection by automated test strip NEGATIVE NEGATIVE Erythrocytes detection in urine sediment by light microscopy 4+ NEGATIVE Urine ketones detection by automated test strip 2+ NEGATIVE Urine nitrite detection by test strip NEGATIVE NEGATIVE Urine total bilirubin detection by test strip NEGATIVE NEGATIVE Urine urobilinogen measurement by automated test strip (mass/volume) 4 mg/dL NORMAL Urine leukocyte esterase detection by dipstick 1+ NEGATIVE Automated urine sediment erythrocyte count by microscopy (number/high power field) [HPF] NRG Automated urine sediment leukocyte count by microscopy (number/high power field ) [HPF] NRG Bacteria detection in urine sediment by light microscopy NEGATIVE NRG Squamous epithelial cells detection in urine sediment by light microscopy RARE NRG Crystals detection in urine sediment by light microscopy PRESENT NRG Casts detection in urine sediment by light microscopy PRESENT NRG Mucus detection in urine sediment by light microscopy MODERATE NRG Complete urinalysis with reflex to culture NO NRG Amorphous sediment detection in urine sediment by light microscopy FEW FELIPA URATES NRG Hyaline casts detection in urine sediment by light microscopy 0-2 NRG Renal epithelial cells detection in urine sediment by light microscopy NONE NRG Arterial blood gas measurement - 11/04/17 07:53 Blood pCO2 37 mm[Hg] 35-45 Blood pO2 77 mm[Hg] 79-93 Arterial blood bicarbonate measurement (moles/volume) 18 mmol/L 23-27 Arterial blood base excess by calculation -6.4 mmol/L - 2.5-2.5 Arterial blood oxygen saturation measurement 93 % 94-100 * Inhaled oxygen flow rate Y NRG Arterial blood pH measurement with patient temperature correction 7.33 7.37-7.43 Arterial blood carbon dioxide, total measurement (moles/volume) 19.3 mmol/L 21.0-31.0 Body site R RAD NRG Assessment of wrist artery patency prior to arterial puncture P NRG Setting of ventilation mode NO NRG Measurement of body temperature 101.0 NRG PT panel in platelet poor plasma by coagulation assay - 11/04/17 08:01 Prothrombin time (PT) in platelet poor plasma by coagulation assay 89.8 s 12.2-14.7 INR in platelet poor plasma or blood by coagulation assay 11.4 0.8-1.4 Activated partial thromboplastin time (aPTT) in platelet poor plasma bycoagulation assay - 11/04/17 08:01 Activated partial thromboplastin time (aPTT) in platelet poor plasma bycoagulation assay 186 s 24-35 Bacterial blood culture - 11/04/17 08:21 Bacterial blood culture NG NRG Methicillin resistant Staphylococcus aureus (MRSA) screening culture - 10:30 Methicillin resistant Staphylococcus aureus (MRSA) screening culture NEG NRG PT panel in platelet poor plasma by coagulation assay - 11/04/17 14:42 Prothrombin time (PT) in platelet poor plasma by coagulation assay 80.8 s 12.2-14.7 INR in platelet poor plasma or blood by coagulation assay 10.0 0.8-1.4 Capillary blood glucose measurement by glucometer (mass/volume) - 11/04/17 16: 15 Capillary blood glucose measurement by glucometer (mass/volume) 130 mg/dL 70-110 Capillary blood glucose measurement by glucometer (mass/volume) - 11/04/17 21: 56 Capillary blood glucose measurement by glucometer (mass/volume) 202 mg/dL 70-110 Complete blood count (CBC) with automated white blood cell (WBC) differential - 11/05/17 03:00 Blood leukocytes automated count (number/volume) 13.9 10*3/uL 4.3-11.0 Blood erythrocytes automated count (number/volume) 4.26 10*6/uL 4.35-5.85 Venous blood hemoglobin measurement (mass/volume) 11.0 g/dL 13.3-17.7 Blood hematocrit (volume fraction) 35 % 40-54 Automated erythrocyte mean corpuscular volume 83 [foz_us] 80-99 Automated erythrocyte mean corpuscular hemoglobin (mass per erythrocyte) 26 pg 25-34 Automated erythrocyte mean corpuscular hemoglobin concentration measurement ( mass/volume) 31 g/dL 32-36 Automated erythrocyte distribution width ratio 15.8 % 10.0-14.5 Automated blood platelet count (count/volume) 280 10*3/uL 130-400 Automated blood platelet mean volume measurement 11.2 [foz_us] 7.4-10.4 Automated blood neutrophils/100 leukocytes 94 % 42-75 Automated blood lymphocytes/100 leukocytes 4 % 12-44 Blood monocytes/100 leukocytes 1 % 0-12 Automated blood eosinophils/100 leukocytes 0 % 0-10 Automated blood basophils/100 leukocytes 0 % 0-10 Blood neutrophils automated count (number/volume) 13.1 10*3 1.8-7.8 Blood lymphocytes automated count (number/volume) 0.6 10*3 1.0-4.0 Blood monocytes automated count (number/volume) 0.2 10*3 0.0-1.0 Automated eosinophil count 0.0 10*3/uL 0.0-0.3 Automated blood basophil count (count/volume) 0.0 10*3/uL 0.0-0.1 Whole blood basic metabolic panel - 11/05/17 03:00 Serum or plasma sodium measurement (moles/volume) 138 mmol/L 135-145 Serum or plasma potassium measurement (moles/volume) 4.3 mmol/L 3.6-5.0 Serum or plasma chloride measurement (moles/volume) 107 mmol/L 98-107 Carbon dioxide 19 mmol/L 21-32 Serum or plasma anion gap determination (moles/volume) 12 mmol/L 5-14 Serum or plasma urea nitrogen measurement (mass/volume) 22 mg/dL 7-18 Serum or plasma creatinine measurement (mass/volume) 1.40 mg/dL 0.60-1.30 Serum or plasma urea nitrogen/creatinine mass ratio 16 NRG Serum or plasma creatinine measurement with calculation of estimated glomerular filtration rate 50 NRG Serum or plasma glucose measurement (mass/volume) 195 mg/dL 70-105 Serum or plasma calcium measurement (mass/volume) 8.3 mg/dL 8.5-10.1 Magnesium - 11/05/17 03:00 Magnesium 1.9 mg/dL 1.8-2.4 Serum or plasma C reactive protein measurement (mass/volume) - 11/05/17 03:00 Serum or plasma C reactive protein measurement (mass/volume) 11.63 mg/dL 0.00-0.50 PT panel in platelet poor plasma by coagulation assay - 11/05/17 03:00 Prothrombin time (PT) in platelet poor plasma by coagulation assay 32.0 s 12.2-14.7 INR in platelet poor plasma or blood by coagulation assay 3.1 0.8-1.4 Activated partial thromboplastin time (aPTT) in platelet poor plasma bycoagulation assay - 11/05/17 03:00 Activated partial thromboplastin time (aPTT) in platelet poor plasma bycoagulation assay 76 s 24-35 Hemoglobin A1c - 11/05/17 03:00 Blood hemoglobin A1C measurement (mass/volume) 7.1 % 4.0- 5.6 MEAN BLOOD GLUCOSE 157 % <=126 Capillary blood glucose measurement by glucometer (mass/volume) - 11/05/17 11: 29 Capillary blood glucose measurement by glucometer (mass/volume) 187 mg/dL 70-110 Capillary blood glucose measurement by glucometer (mass/volume) - 11/05/17 15: 57 Capillary blood glucose measurement by glucometer (mass/volume) 164 mg/dL 70-110 Capillary blood glucose measurement by glucometer (mass/volume) - 11/05/17 20: 36 Capillary blood glucose measurement by glucometer (mass/volume) 236 mg/dL 70-110 Capillary blood glucose measurement by glucometer (mass/volume) - 11/06/17 05: 31 Capillary blood glucose measurement by glucometer (mass/volume) 219 mg/dL 70-110 Complete blood count (CBC) with automated white blood cell (WBC) differential - 11/06/17 05:35 Blood leukocytes automated count (number/volume) 16.9 10*3/uL 4.3-11.0 Blood erythrocytes automated count (number/volume) 4.24 10*6/uL 4.35-5.85 Venous blood hemoglobin measurement (mass/volume) 11.2 g/dL 13.3-17.7 Blood hematocrit (volume fraction) 35 % 40-54 Automated erythrocyte mean corpuscular volume 82 [foz_us] 80-99 Automated erythrocyte mean corpuscular hemoglobin (mass per erythrocyte) 26 pg 25-34 Automated erythrocyte mean corpuscular hemoglobin concentration measurement ( mass/volume) 32 g/dL 32-36 Automated erythrocyte distribution width ratio 15.7 % 10.0-14.5 Automated blood platelet count (count/volume) 307 10*3/uL 130-400 Automated blood platelet mean volume measurement 11.0 [foz_us] 7.4-10.4 Automated blood neutrophils/100 leukocytes 94 % 42-75 Automated blood lymphocytes/100 leukocytes 3 % 12-44 Blood monocytes/100 leukocytes 3 % 0-12 Automated blood eosinophils/100 leukocytes 0 % 0-10 Automated blood basophils/100 leukocytes 0 % 0-10 Blood neutrophils automated count (number/volume) 15.8 10*3 1.8-7.8 Blood lymphocytes automated count (number/volume) 0.5 10*3 1.0-4.0 Blood monocytes automated count (number/volume) 0.6 10*3 0.0-1.0 Automated eosinophil count 0.0 10*3/uL 0.0-0.3 Automated blood basophil count (count/volume) 0.0 10*3/uL 0.0-0.1 Whole blood basic metabolic panel - 11/06/17 05:35 Serum or plasma sodium measurement (moles/volume) 137 mmol/L 135-145 Serum or plasma potassium measurement (moles/volume) 4.1 mmol/L 3.6-5.0 Serum or plasma chloride measurement (moles/volume) 106 mmol/L 98-107 Carbon dioxide 17 mmol/L 21-32 Serum or plasma anion gap determination (moles/volume) 14 mmol/L 5-14 Serum or plasma urea nitrogen measurement (mass/volume) 31 mg/dL 7-18 Serum or plasma creatinine measurement (mass/volume) 1.48 mg/dL 0.60-1.30 Serum or plasma urea nitrogen/creatinine mass ratio 21 NRG Serum or plasma creatinine measurement with calculation of estimated glomerular filtration rate 47 NRG Serum or plasma glucose measurement (mass/volume) 248 mg/dL 70-105 Serum or plasma calcium measurement (mass/volume) 8.6 mg/dL 8.5-10.1 Magnesium - 11/06/17 05:35 Magnesium 1.7 mg/dL 1.8-2.4 Serum or plasma C reactive protein measurement (mass/volume) - 11/06/17 05:35 Serum or plasma C reactive protein measurement (mass/volume) 5.87 mg /dL 0.00-0.50 Blood manual differential performed detection - 11/06/17 05:35 Blood monocytes/100 leukocytes 3 % NRG Manual blood segmented neutrophils/100 leukocytes 92 % NRG Blood band neutrophils/100 leukocytes 0 % NRG Manual blood lymphocytes/100 leukocytes 5 % NRG Manual eosinophils/100 leukocytes in nose 0 % NRG Manual blood basophils/100 leukocytes 0 % NRG Blood polychromasia detection by light microscopy SLIGHT NRG Blood anisocytosis detection by light microscopy SLIGHT NRG Blood target cells detection by light microscopy SLIGHT NRG PT panel in platelet poor plasma by coagulation assay - 11/06/17 05:35 Prothrombin time (PT) in platelet poor plasma by coagulation assay 22.8 s 12.2-14.7 INR in platelet poor plasma or blood by coagulation assay 2.0 0.8-1.4 Activated partial thromboplastin time (aPTT) in platelet poor plasma bycoagulation assay - 11/06/17 05:35 Activated partial thromboplastin time (aPTT) in platelet poor plasma bycoagulation assay 42 s 24-35 Capillary blood glucose measurement by glucometer (mass/volume) - 11/06/17 10: 59 Capillary blood glucose measurement by glucometer (mass/volume) 173 mg/dL 70-110 Capillary blood glucose measurement by glucometer (mass/volume) - 11/06/17 15: 54 Capillary blood glucose measurement by glucometer (mass/volume) 225 mg/dL 70-110 Capillary blood glucose measurement by glucometer (mass/volume) - 11/06/17 20: 33 Capillary blood glucose measurement by glucometer (mass/volume) 163 mg/dL 70-110 Complete blood count (CBC) with automated white blood cell (WBC) differential - 11/07/17 05:12 Blood leukocytes automated count (number/volume) 14.2 10*3/uL 4.3-11.0 Blood erythrocytes automated count (number/volume) 4.55 10*6/uL 4.35-5.85 Venous blood hemoglobin measurement (mass/volume) 11.8 g/dL 13.3-17.7 Blood hematocrit (volume fraction) 37 % 40-54 Automated erythrocyte mean corpuscular volume 82 [foz_us] 80-99 Automated erythrocyte mean corpuscular hemoglobin (mass per erythrocyte) 26 pg 25-34 Automated erythrocyte mean corpuscular hemoglobin concentration measurement ( mass/volume) 32 g/dL 32-36 Automated erythrocyte distribution width ratio 16.0 % 10.0-14.5 Automated blood platelet count (count/volume) 330 10*3/uL 130-400 Automated blood platelet mean volume measurement 10.8 [foz_us] 7.4-10.4 Automated blood neutrophils/100 leukocytes 90 % 42-75 Automated blood lymphocytes/100 leukocytes 6 % 12-44 Blood monocytes/100 leukocytes 4 % 0-12 Automated blood eosinophils/100 leukocytes 0 % 0-10 Automated blood basophils/100 leukocytes 0 % 0-10 Blood neutrophils automated count (number/volume) 12.8 10*3 1.8-7.8 Blood lymphocytes automated count (number/volume) 0.8 10*3 1.0-4.0 Blood monocytes automated count (number/volume) 0.6 10*3 0.0-1.0 Automated eosinophil count 0.0 10*3/uL 0.0-0.3 Automated blood basophil count (count/volume) 0.0 10*3/uL 0.0-0.1 PT panel in platelet poor plasma by coagulation assay - 11/07/17 05:12 Prothrombin time (PT) in platelet poor plasma by coagulation assay 23.2 s 12.2-14.7 INR in platelet poor plasma or blood by coagulation assay 2.1 0.8-1.4 Activated partial thromboplastin time (aPTT) in platelet poor plasma bycoagulation assay - 11/07/17 05:12 Activated partial thromboplastin time (aPTT) in platelet poor plasma bycoagulation assay 38 s 24-35 Whole blood basic metabolic panel - 11/07/17 05:12 Serum or plasma sodium measurement (moles/volume) 139 mmol/L 135-145 Serum or plasma potassium measurement (moles/volume) 3.9 mmol/L 3.6-5.0 Serum or plasma chloride measurement (moles/volume) 107 mmol/L 98-107 Carbon dioxide 22 mmol/L 21-32 Serum or plasma anion gap determination (moles/volume) 10 mmol/L 5-14 Serum or plasma urea nitrogen measurement (mass/volume) 36 mg/dL 7-18 Serum or plasma creatinine measurement (mass/volume) 1.32 mg/dL 0.60-1.30 Serum or plasma urea nitrogen/creatinine mass ratio 27 NRG Serum or plasma creatinine measurement with calculation of estimated glomerular filtration rate 53 NRG Serum or plasma glucose measurement (mass/volume) 209 mg/dL 70-105 Serum or plasma calcium measurement (mass/volume) 8.5 mg/dL 8.5-10.1 Magnesium - 11/07/17 05:12 Magnesium 2.2 mg/dL 1.8-2.4 Serum or plasma C reactive protein measurement (mass/volume) - 11/07/17 05:12 Serum or plasma C reactive protein measurement (mass/volume) 2.98 mg /dL 0.00-0.50 Capillary blood glucose measurement by glucometer (mass/volume) - 11/07/17 05: 15 Capillary blood glucose measurement by glucometer (mass/volume) 191 mg/dL 70-110 Capillary blood glucose measurement by glucometer (mass/volume) - 11/07/17 10: 57 Capillary blood glucose measurement by glucometer (mass/volume) 223 mg/dL 70-110 Encounters ACCT No. Visit Date/Time Discharge Status Pt. Type Provider Facility Loc./Unit Complaint [id number] 04/28/2014 09:30:00 04/28/2014 23:59:59 [facility] Outpatient MARLEY MCGRATH APRN [id number] 04/28/2014 09:30:00 04/28/2014 23:59:59 [facility] Outpatient MARLEY MCGRATH APRN [id number] 10/15/2013 13:50:00 10/15/2013 23:59:59 [facility] Outpatient JAVIER GOMEZ PHD [id number] 09/11/2013 11:50:00 09/11/2013 23:59:59 [facility] Outpatient MARLEY MCGRATH APRN [id number] 08/13/2013 10:57:00 08/13/2013 23:59:59 [facility] Outpatient JAVIER GOMEZ PHD [id number] 08/12/2013 12:29:00 08/12/2013 23:59:59 [facility] Outpatient MARLEY MCGRATH APRN [id number] 07/09/2013 09:48:00 07/09/2013 23:59:59 [facility] Outpatient MARLEY MCGRATH APRN [id number] 02/05/2013 10:59:00 02/05/2013 23:59:59 [facility] Outpatient MARLEY MCGRATH APRN [id number] 01/28/2013 11:09:00 01/28/2013 23:59:59 [facility] Outpatient DAR DANIELS DO [id number] 01/22/2013 14:49:00 01/22/2013 23:59:59 CLS Outpatient DAR DANIELS DO [id number] 04/10/2012 11:18:00 04/10/2012 23:59:59 [facility] Outpatient MARLEY MCGRATH APRN [id number] 02/05/2012 08:52:00 02/05/2012 23:59:59 [facility] Outpatient MARLEY MCGRATH APRN [id number] 09/24/2013 13:53:00 Document Registration [id number] 12/29/2012 11:17:00 Document Registration [id number] 09/22/2012 14:12:00 Document Registration [id number] 09/22/2012 14:12:00 Document Registration [id number] 08/22/2012 12:16:00 Document Registration [id number] 08/22/2012 12:16:00 Document Registration [id number] 08/19/2012 09:46:00 Document Registration [id number] 12/08/2016 09:09:00 Document Registration [id number] 11/04/2017 09:20:00 11/07/2017 15:10:00 DIS Inpatient ITZEL BERGMAN DO Via [address] BILAT SUPRATHERAPEUTIC INR [id number] 09/02/2017 07:52:00 09/02/2017 23:59:59 CLS Outpatient YOHANA SCHMIDT MD Via [facility] CARD [id number] ABN STRESS TEST [id number] 11/16/2015 07:03:00 11/17/2015 11:15:00 DIS Outpatient YOHANA SCHMIDT MD [facility] CATH SUPA,HTN,HLP,CAD [id number] 07/27/2015 07:14:00 07/27/2015 14:00:00 DIS Outpatient YOHANA SCHMIDT MD Via [facility] ABNORMAL STRESS TEST,CAD ,HTN,HLP [id number] 07/13/2015 08:09:00 07/13/2015 23:59:59 CLS Outpatient YOHANA SCHMIDT MD [facility] CARD CAD,CAROTID ARTERY STENOSIS,HTN,SICK SINUS SYNDROM [id number] 07/07/2015 10:26:00 07/07/2015 23:59:59 CLS Outpatient YOHANA SCHMIDT MD [facility] CARD CAD,CAROTID ARTERY STENOSIS,SICK SINUS SYNDROME [id number] 02/28/2015 08:30:00 02/28/2015 23:59:59 CLS Outpatient MARLEY MCGRATH [facility] LAB MEDICATION HIGH RISK [id number] 04/24/2014 22:16:00 04/25/2014 00:30:00 DIS Emergency ANY CEVALLOS, YOSEPH Moran [facility] ER FALL;HEAD LAC [id number] 02/18/2013 12:08:00 02/18/2013 13:59:00 DIS Emergency SAMIR CEVALLOS, MARTHA Bergeron [facility] ER LEFT FLANK PAIN [id number] 01/21/2013 06:51:00 01/21/2013 14:00:00 DIS Outpatient YOHANA SCHMIDT MD [facility] CATH CAD,ABN STRESS,HTN,HLP, SSS,PPM,PAF [id number] 01/13/2013 12:19:00 01/13/2013 23:59:59 CLS Outpatient YOHANA SCHMIDT MD [facility] RAD CAD,HTN [id number] 01/09/2013 08:11:00 01/09/2013 23:59:59 CLS Outpatient YOHANA SCHMIDT MD [facility] CARD CAD,HTN [id number] 08/17/2012 20:45:00 Document Registration [id number] 03/15/2011 19:28:00 Document Registration [id number] 04/24/2014 22:16:36 ACT Document Registration [id number] 02/11/2017 05:05:00 Document Registration [id number] 04/02/2018 16:00:00 04/02/2018 23:59:59 CLS Outpatient [facility]ATH [facility]N [facility] [id number] 02/08/2017 09:00:00 Document Registration
--- NOTE | 2018-04-28 05:52 | ED Fall/Injury ---
General Chief Complaint: Trauma-Non Activation Stated Complaint: FALL Source: patient, EMS, spouse Exam Limitations: no limitations History of Present Illness Date Seen by Provider: Apr 28, 2018 Time Seen by Provider: 04:41 Initial Comments Patient presents to ER by EMS with chief complaint that he had a fall and call out to his and she came and found him and was unable to get him up. He does have a history of stroke is on warfarin. The patient's denying any pain anywhere except for the occiput when pushed on by EMS. Blood sugar was 180 per EMS. Patient is also noted to have a fever of 104. She denies being sick recently but he says he has been having decreased urine output and is been a little bit painful and malodorous. He is not having any cough shortness of breath chest pain nausea, vomiting, diarrhea or constipation. Allergies and Home Medications Allergies Coded Allergies: Sulfa (Sulfonamide Antibiotics) (Verified Allergy, Unknown, 03/12/07) Home Medications Amlodipine Besylate 10 Mg Tablet, 10 MG PO DAILY, (Reported) Amoxicillin/Potassium Clav 1 Each Tablet, 1 EACH PO BID WITH MEALS Prescribed by: ITZEL BERGMAN on 11/07/17 1435 Clonazepam 1 Mg Tablet, 1 MG PO TID PRN for ANXIETY, (Reported) Clonidine Hcl 0.2 Mg Tablet, 0.2 MG PO BID, (Reported) Enalapril Maleate 5 Mg Tablet, 5 MG PO BID, (Reported) Hydrocodone/Acetaminophen 1 Each Tablet, 1 TAB PO Q6H PRN for PAIN, (Reported) Lovastatin 20 Mg Tablet, 20 MG PO HS, (Reported) Metformin HCl 500 Mg Tablet, 500 MG PO DAILY, (Reported) Metformin HCl 500 Mg Tablet, 1,000 MG PO HS, (Reported) TAKES 2 (500 MG) TABLETS Metoprolol Succinate 50 Mg Tab.er.24h, 25 MG PO DAILY, (Reported) TAKE 1/2 (50 MG) TABLET ONCE DAILY Paroxetine Hcl 40 Mg Tablet, 40 MG PO DAILY, (Reported) Pioglitazone HCl 30 Mg Tablet, 30 MG PO DAILY, (Reported) Potassium Chloride 10 Meq Tablet.sa, 10 MEQ PO DAILY, (Reported) Prednisone 20 Mg Tab, 20 MG PO DAILY@0700 2 tabs PO daily x2 days 1.5 tabs PO daily x2 days 1 tab PO daily x 2 days 1/ 2 tab PO daily x2 days Prescribed by: ITZEL BERGMAN on 11/07/17 1435 Testosterone Cypionate 100 Mg/1 Ml Vial, 1 ML IM EVERY 2 WEEKS, (Reported) Topiramate 50 Mg Tablet, 50 MG PO BID, (Reported) Warfarin Sodium 6 Mg Tablet, 6 MG PO DAILY, (Reported) Patient Home Medication List Home Medication List Reviewed: Yes Review of Systems Review of Systems Constitutional: No chills, No diaphoresis, No fever, No malaise; weakness Eyes: Denies Blindness, Denies Blurred Vision, Denies Drainage Ears, Nose, Mouth, Throat: denies ear pain, denies ear discharge Respiratory: No cough, No short of breath, No wheezing Cardiovascular: No chest pain, No edema Gastrointestinal: No abdominal pain, No constipation, No diarrhea, No nausea, No vomiting Genitourinary: No discharge, No dysuria Musculoskeletal: No joint pain, No joint swelling Skin: No pruritus, No rash Psychiatric/Neurological: Denies Headache, Denies Numbness, Denies Paresthesia Past Svjxzba-Smqnwh-Eyfajm Hx Patient Social History Alcohol Use: Denies Use Recreational Drug Use: No Smoking Status: Never a Smoker 2nd Hand Smoke Exposure: No Recent Foreign Travel: No Contact w/Someone Who Travel: No Recent Hopitalizations: No Immunizations Up To Date Tetanus Booster (TDap): Unknown Date of Pneumonia Vaccine: Jan 22, 2008 Seasonal Allergies Seasonal Allergies: No Past Medical History Surgeries: Yes Orthopedic, Pacemaker Respiratory: Yes Pneumonia, Sleep Apnea Cardiac: Yes (SSS) Neurological: Yes Stroke Reproductive Disorders: No Sexually Transmitted Disease: No Genitourinary: Yes Kidney Stones Gastrointestinal: No Musculoskeletal: No Endocrine: Yes Diabetes, Non-Insulin dep HEENT: No Cancer: No Psychosocial: Yes Anxiety, Depression Integumentary: No Blood Disorders: No Adverse Reaction/Blood Tranf: No Family Medical History No Pertinent Family Hx Physical Exam Vital Signs Vital Signs - First Documented 04/28/18 05:19 Temp 102.6 Capillary Refill : Height, Weight, BMI Height: 5'9.00" Weight: 254lbs. 5.0oz. 115.017160ke; 37.4 BMI Method:Stated General Appearance: WD/WN, no apparent distress HEENT: PERRL/EOMI, normal ENT inspection, TMs normal, pharynx normal Neck: non-tender, full range of motion Cardiovascular: normal peripheral pulses, regular rate, rhythm Respiratory: chest non-tender, lungs clear, normal breath sounds, no respiratory distress, no accessory muscle use Peripheral Pulses: 2+ Radial Pulses (R), 2+ Radial Pulses (L) Gastrointestinal: normal bowel sounds, non tender, soft Extremities: normal range of motion, non-tender, normal capillary refill Neurologic/Psychiatric: permanent waver II-XII nml as tested, no motor/sensory deficits, alert, normal mood/affect, oriented x 3 Skin: normal color, warm/dry Lymphatic: no adenopathy Jaren Coma Score Best Eye Response: (4) Open Spontaneously Best Verbal Response: (5) Oriented Best Motor Response: (6) Obeys Commands Jaren Total: 15 Progress/Results/Core Measures Results/Orders Lab Results Laboratory Tests Test 04/28/18 04:52 04/28/18 04:59 04/28/18 05:22 Range/Units White Blood Count 10.8 4.3-11.0 10^3/uL Red Blood Count 5.10 4.35-5.85 10^6/uL Hemoglobin 12.9 L 13.3-17.7 G/DL Hematocrit 41 40-54 % Mean Corpuscular Volume 79 L 80-99 FL Mean Corpuscular Hemoglobin 25 25-34 PG Mean Corpuscular Hemoglobin Concent 32 32-36 G/DL Red Cell Distribution Width 18.5 H 10.0-14.5 % Platelet Count 118 L 130-400 10^3/uL Mean Platelet Volume 10.9 H 7.4-10.4 FL Neutrophils (%) (Auto) 77 H 42-75 % Lymphocytes (%) (Auto) 12 12-44 % Monocytes (%) (Auto) 11 0-12 % Eosinophils (%) (Auto) 0 0-10 % Basophils (%) (Auto) 0 0-10 % Neutrophils # (Auto) 8.3 H 1.8-7.8 X 10^3 Lymphocytes # (Auto) 1.2 1.0-4.0 X 10^3 Monocytes # (Auto) 1.2 H 0.0-1.0 X 10^3 Eosinophils # (Auto) 0.0 0.0-0.3 10^3/uL Basophils # (Auto) 0.0 0.0-0.1 10^3/uL Prothrombin Time 16.8 H 12.2-14.7 SEC INR Comment 1.4 0.8-1.4 Activated Partial Thromboplast Time 35 24-35 SEC Sodium Level 134 L 135-145 MMOL/L Potassium Level 4.1 3.6-5.0 MMOL/L Chloride Level 102 98-107 MMOL/L Carbon Dioxide Level 21 21-32 MMOL/L Anion Gap 11 5-14 MMOL/L Blood Urea Nitrogen 23 H 7-18 MG/DL Creatinine 1.55 H 0.60-1.30 MG/DL Estimat Glomerular Filtration Rate 44 BUN/Creatinine Ratio 15 Glucose Level 181 H 70-105 MG/DL Lactic Acid Level 1.55 0.50-2.00 MMOL/L Calcium Level 8.8 8.5-10.1 MG/DL Corrected Calcium 8.7 8.5-10.1 MG/DL Total Bilirubin 0.7 0.1-1.0 MG/DL Aspartate Amino Transf (AST/SGOT) 24 5-34 U/L Alanine Aminotransferase (ALT/SGPT) 17 0-55 U/L Alkaline Phosphatase 57 40-136 U/L Total Protein 7.2 6.4-8.2 GM/DL Albumin 4.1 3.2-4.5 GM/DL Group A Streptococcus Screen NEGATIVE NEGATIVE Urine Color YELLOW Urine Clarity CLEAR Urine pH 5 5-9 Urine Specific [place] 1.015 L 1.016-1.022 Urine Protein 3+ H NEGATIVE Urine Glucose (UA) NEGATIVE NEGATIVE Urine Ketones 1+ H NEGATIVE Urine Nitrite NEGATIVE NEGATIVE Urine Bilirubin NEGATIVE NEGATIVE Urine Urobilinogen NORMAL NORMAL MG/DL Urine Leukocyte Esterase NEGATIVE NEGATIVE Urine RBC (Auto) 4+ H NEGATIVE Urine RBC 0-2 /HPF Urine WBC NONE /HPF Urine Squamous Epithelial Cells 0-2 /HPF Urine Crystals PRESENT H /LPF Urine Amorphous Sediment FEW FELIPA URATES H /LPF Urine Bacteria TRACE /HPF Urine Casts PRESENT /LPF Urine Hyaline Casts 2-5 H /LPF Urine Mucus SMALL H /LPF Urine Culture Indicated NO Micro Results Microbiology 04/28/18 Influenza Types A,B Antigen ([facility]) - Final, Complete My Orders Orders - DOUGLAS HERNANDEZ Ct Head/Cervical Spine Wo (04/28/18 04:48) Saline Lock/Iv-Start (04/28/18 04:48) Cbc With Automated Diff (04/28/18 04:48) Comprehensive Metabolic Panel (04/28/18 04:48) Blood Culture (04/28/18 04:48) Sputum Culture (04/28/18 04:48) Urinalysis (04/28/18 04:48) Urine Culture (04/28/18 04:48) Protime With Inr (04/28/18 04:48) Partial Thromboplastin Time (04/28/18 04:48) Chest 1 View, Ap/Pa Only (04/28/18 04:48) Acetaminophen Tablet (Tylenol Tablet) (04/28/18 05:00) Saline Lock/Iv-Start (04/28/18 04:48) Saline Lock/Iv-Start (04/28/18 04:48) Vital Signs Adult Sepsis Patie Q15M (04/28/18 04:48) O2 (04/28/18 04:48) Remove Rings In Anticipation O (04/28/18 04:48) Lactic Acid Analyzer (04/28/18 04:48) Influenza A And B Antigens (04/28/18 04:48) Ns Iv 1000 Ml (Sodium Chloride 0.9%) (04/28/18 04:48) Rapid Strep A Screen (04/28/18 04:48) Cefepime Injection (Maxipime Injection) (04/28/18 06:45) Medications Given in ED Current Medications Medications Dose Ordered Sig/Eris Route Start Time Stop Time Status Last Admin Dose Admin Acetaminophen 1,000 mg ONCE PRN PO 04/28/18 05:00 04/28/18 05:21 DC 04/28/18 05:19 1,000 MG Vital Signs/I&O 04/28/18 05:19 Temp 102.6 Progress Progress Note : Time: 06:27 Progress Note Patient's pleasant but has not given as much clues as to what the source of his infection was by history or exam. He says he might be having some malodorous urine so we started with Rocephin but his urinalysis is unremarkable. We are going wrong a bridge to cefepime. He has not actually received the Rocephin yet because we were getting the second blood culture done. At this time his vitals are stable so we'll talk to Dr. Morales about taking him to the floor. He'll also probably need physical therapy and occupational therapy to work with him and consider a stent in acute rehabilitation if he does not improve with his physical debility. Diagnostic Imaging Diagonstic Imaging: Xray Plain Films/CT/US/NM/MRI: chest Comments No acute cardio pulmonary processes noted. Reviewed: Reviewed by Me Diagonstic Imaging: CT (noncontrast) Plain Films/CT/US/NM/MRI: c-spine, head Comments Chronic microvascular ischemic changes. Chronic right ARTIFICIAL FLOWERS DYER infarct. No hemorrhage, hydrocephalus or mass effect. No acute fracture of the calvarium. Paranasal sinuses and mastoids are clear. CT C-spine: No acute fracture or subluxation. No prevertebral soft tissue swelling. Multilevel degenerative disc disease. Reviewed: Reviewed by Me Departure Communication (Admissions) Time/Spoke to Admitting Phy: 06:25 Discussed case lab imaging findings with Dr. Morales. He agrees with admitting the patient, antibiotics and PT OT. Impression Primary Impression: Fever Qualified Codes: R50.9 - Fever, unspecified Additional Impressions: Physical debility Contusion of occipital region of scalp Qualified Codes: S00.03XA - Contusion of scalp, initial encounter Fall Qualified Codes: W19.XXXA - Unspecified fall, initial encounter Disposition: ADMITTED INPATIENT Condition: Stable Admissions Decision to Admit Reason: Admit from ER (General) Decision to Admit/Date: Apr 28, 2018 Time/Decision to Admit Time: 06:31 Departure-Patient Inst. Referrals: DAR DANIELS DO (PCP) Primary Care Physician MARLEY MCGRATH (Family) Primary Care Physician DOUGLAS HERNANDEZ Apr 28, 2018 05:52
[2018-04-28] MEDS ORDERED: CEFEPIME INJECTION 2,000 MG in NS (IVPB) 50 ML IV ONE (06:45)
[2018-04-28 07:45] VITALS: BP 127/55
--- NOTE | 2018-04-28 08:26 | Diagnostic Imaging Report ---
INDICATION: Fever, headache, recent falls. TECHNIQUE: Single view chest 5:04 AM. CORRELATION STUDY: 11/06/2017 FINDINGS: Left-sided pacemaker stable. Cardiac enlargement unchanged. Vasculature overall within normal limits. Lung garcia relatively clear on followup. The previously noted blunting of the costophrenic angles appears essentially resolved. IMPRESSION: 1. Negative for acute abnormality of the chest. Cardiac enlargement without failure. Dictated by: Dictated on workstation # [id number]
[2018-04-28] MEDS ORDERED: ONDANSETRON 4 MG/2 ML (SDV) Z0FRAN IVP PRN (08:30)
--- NOTE | 2018-04-28 08:31 | Diagnostic Imaging Report ---
Indication: Fever and headache and recent falls CT brain findings: Noncontrast brain CT is performed Comparison made to 04/25/2014 There are mild diffuse atrophic changes. There are mild patchy low-density changes in the deep white matter compatible with chronic ischemic change. There is an old infarct in the right occipital lobe which appears similar to the previous study. There is no acute hemorrhage or mass effect or midline shift. Calvarial windows are unremarkable. CT cervical spine findings: Axial slices are obtained with sagittal and coronal reconstructions without contrast. There is no evidence of cervical spine fracture. There is no subluxation or malalignment. There are diffuse degenerative changes throughout the facets on both sides. There is disc space narrowing and osteophyte formation most prominent at C6-7 and C7-T1. There is bilateral neural foraminal narrowing at C6-7 due to osteophyte formation. Impression: CT brain shows atrophic changes with mild chronic changes in deep white matter. There is an old right occipital infarct which is unchanged from 04/24/2014. There is no acute intracranial finding. CT cervical spine demonstrates diffuse degenerative changes most prominent at C6-7 and C7-T1. There is no acute fracture or subluxation. Dictated by: Dictated on workstation # [id number]
[2018-04-28] MEDS: NS IV 1000 ML 1,000 ML IV SCH ×2 (08:43→17:25)
--- NOTE | 2018-04-28 09:13 | History & Physicial (CHS) ---
HPI History of Present Illness: 72-year-old male presents to [facility] emergency department brought in by EMS during the brake repairer of April 28 after having a fall and he was found unable to get up. His reports that she was unable to get him up. He does have a history of being on warfarin due to a stroke. In the emergency department patient complained of discomfort on the backside of his occiput where he apparently landed on his fall. He was noted to have a fever of 104 via EMS. In the emergency department his temperature was 102. Apparently his urine had been decreased and was noted to be slightly discomfort with odor. Source: patient Exam Limitations: clinical condition Date seen by provider: Apr 28, 2018 Time Seen by Provider: 09:20 Attending Physician Alvin Sweet MD PCP Chantell Lopez DO Consult Date of Admission Apr 28, 2018 at 06:57 Home Medications Home Medications Reviewed patient Home Medication Reconciliation performed by pharmacy medication reconciliations surgery technician and/or nursing. Patients Allergies have been reviewed. Allergies Coded Allergies: Sulfa (Sulfonamide Antibiotics) (Verified Allergy, Unknown, 03/12/07) [id number] Hx Patient Social History Marrital Status: Alcohol Use: Denies Use Recreational Drug Use: No Smoking Status: Never a Smoker 2nd Hand Smoke Exposure: No Recent Foreign Travel: No Contact w/other who traveled: No Recent Hopitalizations: No Recent Infectious Disease Expo: No Physical Abuse Screen: No Sexual Abuse: No Immunizations Up To Date Tetanus Booster (TDap): Unknown Date of Pneumonia Vaccine: Jan 22, 2008 Date of Influenza Vaccine: Mar 10, 2018 Past Medical History Sleep Apnea - noncompliant with CPAP Obesity, BMI 36.8 Stroke - September 2007 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 Mild regurgitation. Moderate Tricuspid regurgitation Surgical History Cardiac Cath - 2013, 2015 Pacemaker - 2007; Generatory Change 2016 Right Total Shoulder Right Knee Arthroscopy Colonoscopy Abdominal Lipoma Excision Family Medical History Significant Family History: No Pertinent Family Hx Family History: Cardiovascular disease 19 MOTHER Review of Systems (CHC) Constitutional: see HPI Reviewed Test Results Reviewed Test Results Lab Laboratory Tests Test 04/28/18 04:52 04/28/18 04:59 04/28/18 05:22 Range/Units White Blood Count 10.8 4.3-11.0 10^3/uL Red Blood Count 5.10 4.35-5.85 10^6/uL Hemoglobin 12.9 L 13.3-17.7 G/DL Hematocrit 41 40-54 % Mean Corpuscular Volume 79 L 80-99 FL Mean Corpuscular Hemoglobin 25 25-34 PG Mean Corpuscular Hemoglobin Concent 32 32-36 G/DL Red Cell Distribution Width 18.5 H 10.0-14.5 % Platelet Count 118 L 130-400 10^3/uL Mean Platelet Volume 10.9 H 7.4-10.4 FL Neutrophils (%) (Auto) 77 H 42-75 % Lymphocytes (%) (Auto) 12 12-44 % Monocytes (%) (Auto) 11 0-12 % Eosinophils (%) (Auto) 0 0-10 % Basophils (%) (Auto) 0 0-10 % Neutrophils # (Auto) 8.3 H 1.8-7.8 X 10^3 Lymphocytes # (Auto) 1.2 1.0-4.0 X 10^3 Monocytes # (Auto) 1.2 H 0.0-1.0 X 10^3 Eosinophils # (Auto) 0.0 0.0-0.3 10^3/uL Basophils # (Auto) 0.0 0.0-0.1 10^3/uL Prothrombin Time 16.8 H 12.2-14.7 SEC INR Comment 1.4 0.8-1.4 Activated Partial Thromboplast Time 35 24-35 SEC Sodium Level 134 L 135-145 MMOL/L Potassium Level 4.1 3.6-5.0 MMOL/L Chloride Level 102 98-107 MMOL/L Carbon Dioxide Level 21 21-32 MMOL/L Anion Gap 11 5-14 MMOL/L Blood Urea Nitrogen 23 H 7-18 MG/DL Creatinine 1.55 H 0.60-1.30 MG/DL Estimat Glomerular Filtration Rate 44 BUN/Creatinine Ratio 15 Glucose Level 181 H 70-105 MG/DL Lactic Acid Level 1.55 0.50-2.00 MMOL/L Calcium Level 8.8 8.5-10.1 MG/DL Corrected Calcium 8.7 8.5-10.1 MG/DL Total Bilirubin 0.7 0.1-1.0 MG/DL Aspartate Amino Transf (AST/SGOT) 24 5-34 U/L Alanine Aminotransferase (ALT/SGPT) 17 0-55 U/L Alkaline Phosphatase 57 40-136 U/L Total Protein 7.2 6.4-8.2 GM/DL Albumin 4.1 3.2-4.5 GM/DL Group A Streptococcus Screen NEGATIVE NEGATIVE Urine Color YELLOW Urine Clarity CLEAR Urine pH 5 5-9 Urine Specific [place] 1.015 L 1.016-1.022 Urine Protein 3+ H NEGATIVE Urine Glucose (UA) NEGATIVE NEGATIVE Urine Ketones 1+ H NEGATIVE Urine Nitrite NEGATIVE NEGATIVE Urine Bilirubin NEGATIVE NEGATIVE Urine Urobilinogen NORMAL NORMAL MG/DL Urine Leukocyte Esterase NEGATIVE NEGATIVE Urine RBC (Auto) 4+ H NEGATIVE Urine RBC 0-2 /HPF Urine WBC NONE /HPF Urine Squamous Epithelial Cells 0-2 /HPF Urine Crystals PRESENT H /LPF Urine Amorphous Sediment FEW FELIPA URATES H /LPF Urine Bacteria TRACE /HPF Urine Casts PRESENT /LPF Urine Hyaline Casts 2-5 H /LPF Urine Mucus SMALL H /LPF Urine Culture Indicated NO Radiology [facility] [place] NAME: NATHAN BAKER [facility] REC#: [id number] PT STATUS: ADM IN : 1945 PHYSICIAN: DOUGLAS HERNANDEZ MD ADMIT DATE: 04/28/18 Draft Date of Exam:04/28/18 CHEST 1 VIEW, AP/PA ONLY INDICATION: Fever, headache, recent falls. TECHNIQUE: Single view chest 5:04 AM. CORRELATION STUDY: 11/06/2017 FINDINGS: Left-sided pacemaker stable. Cardiac enlargement unchanged. Vasculature overall within normal limits. Lung garcia relatively clear on followup. The previously noted blunting of the costophrenic angles appears essentially resolved. IMPRESSION: 1. Negative for acute abnormality of the chest. Cardiac enlargement without failure. Dictated on workstation # [id number] Dict: 04/28/18820 Trans: 04/28/1825 [facility] [id number] Interpreted by: DAQUAN PENG DO Electronically signed by: PHYSICIAN: DOUGLAS HERNANDEZ MD ADMIT DATE: 04/28/18 Draft Date of Exam:04/28/18 CT HEAD/CERVICAL SPINE WO Indication: Fever and headache and recent falls CT brain findings: Noncontrast brain CT is performed Comparison made to 04/25/2014 There are mild diffuse atrophic changes. There are mild patchy low-density changes in the deep white matter compatible with chronic ischemic change. There is an old infarct in the right occipital lobe which appears similar to the previous study. There is no acute hemorrhage or mass effect or midline shift. Calvarial windows are unremarkable. CT cervical spine findings: Axial slices are obtained with sagittal and coronal reconstructions without contrast. There is no evidence of cervical spine fracture. There is no subluxation or malalignment. There are diffuse degenerative changes throughout the facets on both sides. There is disc space narrowing and osteophyte formation most prominent at C6-7 and C7-T1. There is bilateral neural foraminal narrowing at C6-7 due to osteophyte formation. Impression: CT brain shows atrophic changes with mild chronic changes in deep white matter. There is an old right occipital infarct which is unchanged from 04/24/2014. There is no acute intracranial finding. CT cervical spine demonstrates diffuse degenerative changes most prominent at C6-7 and C7-T1. There is no acute fracture or subluxation. Dictated on workstation # [id number] Dict: 04/28/18810 Trans: 04/28/1830 [facility] [id number] Interpreted by: NATHAN COSTA MD Electronically signed by: Physical Exam-([facility]C) Physical Exam Vital Signs VS - Last 72 Hours, by Label 04/28/18 04/28/18 04/28/18 04/28/18 04:43 04:43 04:45 05:19 Temp 102.6 102.6 102.6 Pulse 76 76 Resp 17 17 B/P (MAP) 120/83 (95) 120/83 (95) Pulse Ox 97 97 O2 Delivery Nasal Cannula Nasal Cannula O2 Flow Rate 2.00 2.00 04/28/18 04/28/18 04/28/18 04/28/18 06:30 07:36 07:45 09:00 Temp 100.3 100.3 98.5 Pulse 66 60 103 Resp 17 17 20 B/P (MAP) 122/55 118/37 (64) 127/55 (79) Pulse Ox 97 97 95 95 O2 Delivery Nasal Cannula Room Air Room Air O2 Flow Rate 2.00 2.00 04/28/18 04/28/18 04/28/18 04/28/18 12:00 13:47 16:00 17:00 Temp 99.7 100.2 102.0 Pulse 64 80 Resp 18 20 B/P (MAP) 114/58 (76) 162/88 (112) Pulse Ox 95 95 97 O2 Delivery Room Air Room Air Room Air 04/28/18 04/28/18 04/29/18 04/29/18 20:00 22:15 00:00 02:15 Temp 101.0 100.2 100.7 97.7 Pulse 80 88 Resp 20 18 B/P (MAP) 136/63 (87) 137/69 (91) Pulse Ox 93 92 O2 Delivery Room Air Room Air 04/29/18 04/29/18 04:00 07:29 Temp 98.9 98.2 Pulse 71 62 Resp 20 18 B/P (MAP) 142/78 (99) 162/77 (105) Pulse Ox 94 96 O2 Delivery Room Air Room Air Capillary Refill : Less Than 3 Seconds General Appearance: no apparent distress Eyes: Bilateral Eye Normal Inspection HEENT: PERRL/EOMI, other (Pharynx normal) Neck: non-tender Respiratory: lungs clear Cardiovascular: regular rate, rhythm Gastrointestinal: soft Rectal: deferred Extremities: non-tender, no pedal edema, normal capillary refill Neurologic/Psychiatric: alert, oriented x 3 Skin: normal color Assessment/Plan Assessment/Plan Admission Dx 1. Febrile illness suspicious for urinary infection or urosepsis 2. Fall with resultant occipital contusion 3. Weakness most likely secondary to number 1 Admission Status: Observation Reason for Inpatient Admission: Further monitoring of fever. Initiation of IV antibiotics. Blood and urine cultures pending. Assessment & Plan 1. Febrile illness suspicious for urinary infection or urosepsis -Patient on IV antibiotics Rocephin -IV fluids -Urine and blood cultures pending 2. Fall with resultant occipital contusion -CT negative for any acute intracranial abnormality. Old changes noted 3. Weakness most likely secondary to number 1 -Monitor ALVIN SWEET MD Apr 28, 2018 09:13
--- NOTE | 2018-04-28 11:48 | Physical Therapy Evaluation ---
PT Evaluation-General Medical Diagnosis Admission Date Apr 28, 2018 at 06:57 Medical Diagnosis: fall; sepsis; physical debility Onset Date: Apr 28, 2018 Therapy Diagnosis Therapy Diagnosis: diminished mobility and stability Height/Weight Height (Feet): 5 Height (Inches): 9.00 Weight (Pounds): 254 Weight (Ounces): 5.0 Precautions Precautions/Isolations: Fall Prevention, Standard Precautions Referral Physician: Alvin Morales MD Reason for Referral: Evaluation/Treatment Medical History Pertinent Medical History: CAD, DM, HTN Additional Medical History TIA, CAD, pacemaker, DMII, anxiety, depression, diverticulosis, cardiac cath, (R ) total shoulder, (R) knee scope Current History Brought to ED via EMS due to fall at home with elevated temp. Reviewed History: Yes Social History Home: Single Level Current Living Status: Significant Other Entry Into Home: Stairs Without Railing PT Steps Into Home: 3 PT Steps Inside Home: 0 Prior/Core FIM Prior Level of Function Therapy Code Descriptions/Definitions Functional [place] Measure: 0=Not Assessed/NA 4=Minimal Assistance 1=Total Assistance 5=Supervision or Setup 2=Maximal Assistance 6=Modified [place] 3=Moderate Assistance 7=Complete [place] Therapy Quality Codes: 6 Independent with activity with or without an assistive device 5 Patient requires set up or clean up by helper. Patient completes activity by themselves 4 Supervision or touching assist (CGA). [place] provide cues , steadying assist 3 The helper provides less than half the effort to complete the activity 2 The helper provides more than half the effort to complete the activity 1 Dependent. The helper does all the effort to complete an activity 7 Patient refused to complete or attempt activity 9 The patient did not perform the activity before the current illness or injury 88 Not attempted due to Medical conditions or safety concerns Functional Abilities and Goals: Independent: Patient completed the activities by him/herself, with or without an assistive device, with no assistance from a helper. Needed Some Help: Patient needed partial assistance from another person to complete activities. Dependent: A helper completed the activities for the patient. Unknown: Not Applicable: Bed Mobility: 7 Transfers (B,C,W/C) (FIM): 7 Gait: 7 Stairs: 7 Indoor Mobility (Ambulation): Independent Stairs: Independent Prior Devices Use: None PT Evaluation-Current Objective Patient Orientation: Person, Place, Time, Situation Problem Solving: Good Attachments: IV ROM/Strength ROM Upper Extremities WFL ROM Lower Extremities WFL Strength Upper Extremities 4/5 (B) UE MMT Strength Lower Extremities 4/5 (B) LE MMT Neuromuscular (Tone, Coordination, Reflexes) intact Sensory Vision: Wears Glasses Hearing: Functional Sensation Right Upper Extremit: Intact Sensation Left Upper Extremity: Intact Sensation Right Lower Extremit: Intact Sensation Left Lower Extremity: Intact Transfers Therapy Code Descriptions/Definitions Functional [place] Measure: 0=Not Assessed/NA 4=Minimal Assistance 1=Total Assistance 5=Supervision or Setup 2=Maximal Assistance 6=Modified [place] 3=Moderate Assistance 7=Complete [place] Transfers (B, C, W/C) (FIM): 6 Scootin Rollin Supine to/from Sit: 6 Sit to/from Stand: 6 Gait Mode of Locomotion: Walk Gait (FIM): 6 Distance: 300ft Gait Level of Assist: 6 Gait Persons Needed: 1 Gait Assistive Device: None Balance Sitting Static: Normal Sitting Dynamic: Normal Standing Static: Good Standing Dynamic: Good Special Test Comments initially showed instability after supine to sit to stand. Once up, he was able to walk steadily for 300ft without incident. Assessment/Needs Pt is safe with ambulation and transfers. Rehab Potential: Good PT Short Term Goals Short Term Goals Time Frame: May 02, 2018 Transfers (B,C,W/C) (FIM): 7 Gait (FIM): 7 Distance (FIM): 3=150 ft Gait Distance Comment: 600ft Gait Level of Assist: 7 Gait Assistive Device: None Stairs (FIM): 7 # of Steps: 12 Stairs Level of Assist: 7 PT Plan Problem List Problem List: Activity Tolerance, Functional Strength, Safety, Balance, Gait, Transfer Treatment/Plan Treatment Plan: Continue Plan of Care Treatment Plan: Bed Mobility, Functional Activity Nilda, Functional Strength, Gait, Safety, Therapeutic Exercise, Transfers Treatment Duration: May 02, 2018 Frequency: 5 times per week Estimated Hrs Per Day: .25 hour per day Patient and/or Family Agrees t: Yes Time/GCodes Time In: 1110 Time Out: 1150 Total Billed Treatment Time: 40 Total Billed Treatment 1, [id number], gt 15 BYRON SIMMONS PT Apr 28, 2018 11:48
[2018-04-28 12:00] VITALS: BP 114/58
--- NOTE | 2018-04-28 13:44 | Occupational Therapy Eval ---
OT Evaluation-General/PLF Medical Diagnosis Admission Date Apr 28, 2018 at 06:57 Medical Diagnosis: fall; sepsis; physical debility Onset Date: Apr 28, 2018 Therapy Diagnosis Therapy Diagnosis: Decreased ADL skills Height/Weight Height (Feet): 5 Height (Inches): 9.00 Weight (Pounds): 254 Weight (Ounces): 5.0 Precautions Precautions/Isolations: Fall Prevention, Standard Precautions Weight Bear Status Weight Bearing Restriction: Weight Bearing/Tolerated Referral Physician: Alvin Morales MD Referral Reason: Activity Tolerance, Self Care, Evaluation/Treatment, Strengthening/ROM Medical History Pertinent Medical History: CAD, DM, HTN Additional Medical History Sleep apnea, Stroke, Right total shoulder Current History Pt. states that he had to go to the bathroom at home in a hurry, and lost his balance. Fell and was unable to get up. His spouse found him and called EMS. Upon arrival, he had a fever. Reviewed History: Yes Social History Home: Single Level Current Living Status: Significant Other Entry Into Home: Stairs With Railing, Stairs Without Railing Steps Into Home: 2 Steps Inside Home: 0 ADL-Prior Level of Function Therapy Code Descriptions/Definitions Functional [place] Measure: 0=Not Assessed/NA 4=Minimal Assistance 1=Total Assistance 5=Supervision or Setup 2=Maximal Assistance 6=Modified [place] 3=Moderate Assistance 7=Complete [place] Therapy Quality Codes: 6 Independent with activity with or without an assistive device 5 Patient requires set up or clean up by helper. Patient completes activity by themselves 4 Supervision or touching assist (CGA). [place] provide cues , steadying assist 3 The helper provides less than half the effort to complete the activity 2 The helper provides more than half the effort to complete the activity 1 Dependent. The helper does all the effort to complete an activity 7 Patient refused to complete or attempt activity 9 The patient did not perform the activity before the current illness or injury 88 Not attempted due to Medical conditions or safety concerns Functional Abilities and Goals: Independent: Patient completed the activities by him/herself, with or without an assistive device, with no assistance from a helper. Needed Some Help: Patient needed partial assistance from another person to complete activities. Dependent: A helper completed the activities for the patient. Unknown: Not Applicable: ADL PLOF Comments Pt. states that he is fully independent at home. Self Care: Independent Functional Cognition: Independent DME/Equipment: Shower DME/Equipment Comments Pt. states that he has a walker that was his 's if needed. Otherwise, does not use an assistive device. OT Current Status Subjective No pain reported. Pt. states that he needs to "get out of here" by tomorrow. Appearance Pt. in bed. Alert and oriented. Pleasant with OT. Mental Status/Objective Patient Orientation: Person, Place Attachments: IV Current Upper Extremity ROM WFL Upper Extremity Strength 4/5 bilateral UE strength ADL-Treatment Therapy Code Descriptions/Definitions Functional [place] Measure: 0=Not Assessed/NA 4=Minimal Assistance 1=Total Assistance 5=Supervision or Setup 2=Maximal Assistance 6=Modified [place] 3=Moderate Assistance 7=Complete [place] Therapy Quality Codes: 6 Independent with activity with or without an assistive device 5 Patient requires set up or clean up by helper. Patient completes activity by themselves 4 Supervision or touching assist (CGA). [place] provide cues , steadying assist 3 The helper provides less than half the effort to complete the activity 2 The helper provides more than half the effort to complete the activity 1 Dependent. The helper does all the effort to complete an activity 7 Patient refused to complete or attempt activity 9 The patient did not perform the activity before the current illness or injury 88 Not attempted due to Medical conditions or safety concerns Lower Body Dressing (FIM): 6 Transfers (B, C, W/C) (FIM): 6 Other Treatments Pt. transfers supine-sit with Mod I using bedrail. Pt. is able to doff/don slipper socks seated on side of bed. Has some difficulty with this due to inflexibility, but otherwise is able to complete. Stands at side of bed with independent with no device. Stands approximately 5 minutes and reports no dizziness or balance issues. Sat back down and transferred back to bed. Declines shower at this time. Reports that he just got into a hurry at home, and fell. All needs met in room. Education OT Patient Education: Correct positioning, Modified ADL techniques, Progress toward Goal/Update tx plan, Purpose of tx/functional activities, Reviewed precautions, Rehab process, Transfer techniques Teaching Recipient: Patient Teaching Methods: Demonstration, Discussion Response to Teaching: Verbalize Understanding, Return Demonstration OT Short Term Goals Short Term Goals Transfers (B,C,W/C) (FIM): 7 1=Demonstrate adherence to instructed precautions during ADL tasks. 2=Patient will verbalize/demonstrate understanding of assistive devices/ modifications for ADL. 3=Patient will improve strength/tolerance for activity to enable patient to perform ADL's. OT Procurement Forester Goals Procurement Forester Goals Time Frame: Apr 28, 2018 Pt. demonstrates ADL transfers with mod I/I, and LE dressing with Mod I. No OT goals warranted at this time. Additional Goals: 1-Demonstrate ADL Tasks, 2-Verbalize Understanding, 3- ImproveStrength/[place] 1=Demonstrate adherence to instructed precautions during ADL tasks. 2=Patient will verbalize/demonstrate understanding of assistive devices/ modifications for ADL. 3=Patient will improve strength/tolerance for activity to enable patient to perform ADL's. OT Education/Plan Problem List/Assessment Assessment: No Skilled OT Needs ID'd Discharge Recommendations Plan/Recommendations: Discharge/Goals Met Therapy D/C Recommendations: Home w/ Family Support Target Placement Home with family. Pt. states that he does have a walker at home if needed, but does not think that he does. Patient/Family Goals To discharge home with spouse. Treatment Plan/Plan of Care Treatment,Training & Education: Yes Treatment Duration: Apr 28, 2018 Frequency: 1 time per week Estimated Hrs Per Day: .25 hour per day Agreement: Yes Rehab Potential: Good Time/GCodes Start Time: 11:50 Stop Time: 12:05 Total Time Billed (hr/min): 15 Billed Treatment Time 1, EVL Discharge OT services SABI YOUNG OT Apr 28, 2018 13:44
[2018-04-28 16:00] VITALS: BP 162/88
[2018-04-28] MEDS: ACETAMINOPHEN 500 MG TAB (TYLENOL) PO PRN (16:15)
[2018-04-28] MEDS ORDERED: CLONAZEPAM 1 MG PO PRN (16:45)
[2018-04-28] MEDS ORDERED: NON-FORMULARY MEDICATION 1 EA EA (Hydrocodone/Acetaminophen (Norco 5-325 Tablet) 1 TAB) PO PRN (16:45)
[2018-04-28] MEDS ORDERED: DONE5TAB30 PO (16:49)
[2018-04-28] MEDS ORDERED: HYDROcodone/APAP 5 MG/325 MG (LORTAB) TAB PO PRN (17:15)
[2018-04-28] MEDS ORDERED: clonazePAM 1 MG (KlonoPIN) TAB PO PRN (17:15)
[2018-04-28] MEDS ORDERED: WARF6TAB PO (17:33)
[2018-04-28] MEDS: SIMETHICONE 80 MG (MYLICON) CHEW PO PRN (17:53)
[2018-04-28] MEDS ORDERED: warFARin 3 MG (COUMADIN) TAB PO SCH (18:00)
[2018-04-28 20:00] VITALS: BP 136/63
[2018-04-28] MEDS: ENALAPRIL 5 MG (VASOTEC) TAB PO SCH (20:03)
[2018-04-28] MEDS: toPIRamate 25 MG (TOPAMAX) TAB PO SCH (20:04)
[2018-04-28] MEDS: cloNIDine 0.2 MG (CATAPRES) TAB PO SCH (20:05)
[2018-04-28] MEDS ORDERED: metFORMIN 500 MG (GLUCOPHAGE) TAB PO SCH (21:00)
[2018-04-28] MEDS ORDERED: NON-FORMULARY MEDICATION 1 EA EA (Topiramate 50 MG) PO SCH (21:00)
[2018-04-28] MEDS ORDERED: NON-FORMULARY MEDICATION 1 EA EA (Lovastatin (Lovastatin 20 Mg) 20 MG) PO SCH (21:00)
[2018-04-28] MEDS ORDERED: DONEPEZIL 5 MG (ARICEPT) TAB PO SCH (21:00)
[2018-04-28] MEDS ORDERED: ATORVASTATIN 10 MG (LIPITOR) TABLET PO SCH (21:00)
[2018-04-28] MEDS ORDERED: ENALAPRIL MALEATE 5 MG PO SCH (21:00)
[2018-04-28] MEDS ORDERED: NON-FORMULARY MEDICATION 1 EA EA (Metformin HCl 1,000 MG) PO SCH (21:00)
[2018-04-29] VITALS: BP 137/69
[2018-04-29] MEDS: ACETAMINOPHEN 500 MG TAB (TYLENOL) PO PRN (01:49)
[2018-04-29 04:00] VITALS: BP 142/78
[2018-04-29] MEDS: NS IV 1000 ML 1,000 ML IV SCH (04:01)
[2018-04-29] MEDS: SIMETHICONE 80 MG (MYLICON) CHEW PO PRN (05:49)
[2018-04-29 05:57] LABS: BASOPHILS % (AUTO) 0 % (0-10); EOSINOPHILS % (AUTO) 0 % (0-10); HEMATOCRIT 39 % (40-54); HEMOGLOBIN 12.1 G/DL (13.3-17.7); LYMPHOCYTES % (AUTO) 22 % (12-44); MEAN CORPUSCULAR HEMOGLOBIN 25 PG (25-34); MEAN CORPUSCULAR HGB CONC 31 G/DL (32-36); MEAN CORPUSCULAR VOLUME 81 FL (80-99); MEAN PLATELET VOLUME 11.6 FL (7.4-10.4); MONOCYTES # (AUTO) 1.1 X 10^3 (0.0-1.0); MONOCYTES % (AUTO) 13 % (0-12); NEUTROPHILS # (AUTO) 5.8 X 10^3 (1.8-7.8); NEUTROPHILS % (AUTO) 65 % (42-75); PLATELET COUNT 102 10^3/uL (130-400); RED BLOOD COUNT 4.78 10^6/uL (4.35-5.85); RED CELL DISTRIBUTION WIDTH 18.8 % (10.0-14.5)
[2018-04-29 06:44] LABS: CALCIUM 8.5 MG/DL (8.5-10.1); CREATININE SERUM 1.2 MG/DL (0.60-1.30); POTASSIUM 3.8 MMOL/L (3.6-5.0)
[2018-04-29] MEDS ORDERED: PIOGLITAZONE 30MG (ACTOS) TAB PO SCH (07:00)
[2018-04-29] MEDS ORDERED: KCL 10 MEQ TAB (MICRO K) PO SCH (07:00)
[2018-04-29] MEDS ORDERED: metFORMIN 500 MG (GLUCOPHAGE) TAB PO SCH (07:00)
[2018-04-29] MEDS ORDERED: CEFEPIME INJECTION 2,000 MG in NS (IVPB) 50 ML IV SCH (07:00)
[2018-04-29 07:29] VITALS: BP 162/77
--- NOTE | 2018-04-29 07:57 | Discharge Summary ---
Diagnosis/Chief Complaint Date of Admission Apr 28, 2018 at 06:57 Date of Discharge April 29, 2018 Admission Diagnosis Admission Diagnosis 1. Febrile illness 2. Fall 3. Scalp contusion 4. History of CVA Discharge Diagnosis 1. Febrile illness which may be viral 2. Fall 3. Scalp contusion 4. History of CVA Chief Complaint/HPI Chief Complaint/HPI 72-year-old male presents to [facility] emergency department brought in by EMS during the lan analyst of April 28 after having a fall and he was found unable to get up. His reports that she was unable to get him up. He does have a history of being on warfarin due to a stroke. In the emergency department patient complained of discomfort on the backside of his occiput where he apparently landed on his fall. He was noted to have a fever of 104 via EMS. In the emergency department his temperature was 102. Apparently his urine had been decreased and was noted to be slightly discomfort with odor. Discharge Summary-Simple/Stand Consultations Physical therapy Discharge Physical Examination Allergies: Coded Allergies: Sulfa (Sulfonamide Antibiotics) (Verified Allergy, Unknown, 03/12/07) Vitals & I&Os Vital Sign - Last 12Hours Date Time Temp Pulse Resp B/P (MAP) Pulse Ox O2 Delivery O2 Flow Rate FiO2 04/29/18 07:29 98.2 62 18 162/77 (105) 96 Room Air 04/28/18 07:36 2.00 Intake and Output 04/29/18 00:00 Intake Total 700 ml Output Total 650 ml Balance 50 ml General Appearance: No Acute Distress HEENT: Mucous Memb Moist/[place] Respiratory: Clear to Auscultation Cardiovascular: Regular Rate Abdominal: Soft Skin: No Rashes Neuro: Normal Gait, Normal Speech Psych/Mental Status: Mental Status NL, Mood NL Hospital Course See final discharge diagnosis. Patient was admitted for observation on April 28, 2018 after a fall at home. It was initially thought that he may have had sepsis. He received workup in ED which included chest x-ray, urine analysis and blood workup. He was initially placed on cefepime 2 g every 12 hours. His temperature curve normalized. He remained with normal mentation. Physical therapy helped him ambulate in the afternoon of April 28 any done well. There was no urine culture performed due to criteria. His white blood cell count noted to be 9.0 and hemoglobin 12.1 on the morning of April 29. Patient was felt ready for dismissal. Radiology Reviewed [facility], [facility]. [place], [place] NAME: NATHAN BAKER [facility] REC#: [id number] PT STATUS: ADM IN : 1945 PHYSICIAN: DOUGLAS HERNANDEZ MD ADMIT DATE: 04/28/18 Draft Date of Exam:04/28/18 CHEST 1 VIEW, AP/PA ONLY INDICATION: Fever, headache, recent falls. TECHNIQUE: Single view chest 5:04 AM. CORRELATION STUDY: 11/06/2017 FINDINGS: Left-sided pacemaker stable. Cardiac enlargement unchanged. Vasculature overall within normal limits. Lung garcia relatively clear on followup. The previously noted blunting of the costophrenic angles appears essentially resolved. IMPRESSION: 1. Negative for acute abnormality of the chest. Cardiac enlargement without failure. Dictated on workstation # [id number] Dict: 04/28/18820 Trans: 04/28/18 0825 [facility] [id number] Interpreted by: DAQUAN PENG DO Electronically signed by: PHYSICIAN: DOUGLAS HERNANDEZ MD ADMIT DATE: 04/28/18 Draft Date of Exam:04/28/18 CT HEAD/CERVICAL SPINE WO Indication: Fever and headache and recent falls CT brain findings: Noncontrast brain CT is performed Comparison made to 04/25/2014 There are mild diffuse atrophic changes. There are mild patchy low-density changes in the deep white matter compatible with chronic ischemic change. There is an old infarct in the right occipital lobe which appears similar to the previous study. There is no acute hemorrhage or mass effect or midline shift. Calvarial windows are unremarkable. CT cervical spine findings: Axial slices are obtained with sagittal and coronal reconstructions without contrast. There is no evidence of cervical spine fracture. There is no subluxation or malalignment. There are diffuse degenerative changes throughout the facets on both sides. There is disc space narrowing and osteophyte formation most prominent at C6-7 and C7-T1. There is bilateral neural foraminal narrowing at C6-7 due to osteophyte formation. Impression: CT brain shows atrophic changes with mild chronic changes in deep white matter. There is an old right occipital infarct which is unchanged from 04/24/2014. There is no acute intracranial finding. CT cervical spine demonstrates diffuse degenerative changes most prominent at C6-7 and C7-T1. There is no acute fracture or subluxation. Dictated on workstation # [id number] Dict: 04/28/18810 Trans: 04/28/18829 [facility] [id number] Interpreted by: NATHAN COSTA MD Electronically signed by: Discharge Instructions to patient/family Please see electronic discharge instructions given to patient. Discharge Medications Reviewed and agree with Discharge Medication list on patient's Discharge Instruction sheet Clinical Quality Measures DVT/VTE Risk/Contraindication: Risk Factor Score Per Nursin RFS Level Per Nursing on Admit: 4+=Very High LYSSA SWEET MD Apr 29, 2018 07:57
--- NOTE | 2018-04-29 07:59 | Discharge Inst-Simple/Standard ---
Discharge Inst-Standard Discharge Medications New, Converted or Re-Newed RX: Other Patient Instructions/Follow Up Plan of Care/Instructions/FU: Follow-up with [facility] within the week Activity as Tolerated: Yes (With assistance) Discharge Diet: ADA Diet Return to The Hospital For: Worsening ambulation or return of high fever. Planned Outpatient Orders/Ref. Pneu Vac Indicated: Yes LYSSA SWEET MD Apr 29, 2018 07:59
[2018-04-29] MEDS: toPIRamate 25 MG (TOPAMAX) TAB PO SCH (08:27)
[2018-04-29] MEDS: cloNIDine 0.2 MG (CATAPRES) TAB PO SCH (08:27)
[2018-04-29] MEDS: ENALAPRIL 5 MG (VASOTEC) TAB PO SCH (08:27)
[2018-04-29] MEDS ORDERED: PARoxetine 20 MG (PAXIL) TAB PO SCH (09:00)
[2018-04-29] MEDS ORDERED: amLODIPine 10 MG (NORVASC) TAB PO SCH (09:00)
[2018-04-29] MEDS ORDERED: NON-FORMULARY MEDICATION 1 EA EA (Metformin HCl 500 MG) PO SCH (09:00)
[2018-04-29] MEDS ORDERED: WARFARIN SODIUM 6 MG PO SCH (09:00)
[2018-04-29] MEDS ORDERED: PIOGLITAZONE HCL 30 MG PO SCH (09:00)
[2018-04-29] MEDS ORDERED: warFARin 3 MG (COUMADIN) TAB PO SCH (18:00)
== END 2018-04-29 10:05 | disposition home or self-care (01) | DRG 866 ==
LOC: EDUNIT# 04:43 → ER 04:45 → 4TH 06:57
PROVIDERS: ADMIT Family Medicine; ATTEND Family Medicine
DX: B34.9 Viral infection, unspecified (principal); R50.9 Fever, unspecified; S00.03XA Contusion of scalp, initial encounter; I69.398 Other sequelae of cerebral infarction; H53.8 Other visual disturbances; I10 Essential (primary) hypertension; G47.30 Sleep apnea, unspecified; E11.9 Type 2 diabetes mellitus without complications; F41.9 Anxiety disorder, unspecified; F32.9 Major depressive disorder, single episode, unspecified; I25.10 Atherosclerotic heart disease of native coronary artery without angina pectoris; G47.00 Insomnia, unspecified; G89.29 Other chronic pain; R53.82 Chronic fatigue, unspecified; E78.5 Hyperlipidemia, unspecified; M19.91 Primary osteoarthritis, unspecified site; K21.9 Gastro-esophageal reflux disease without esophagitis; I65.29 Occlusion and stenosis of unspecified carotid artery; I08.2 Rheumatic disorders of both aortic and tricuspid valves; W19.XXXA Unspecified fall, initial encounter; Z79.84 Long term (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 oral hypoglycemic drugs; Z95.0 Presence of cardiac pacemaker; Z79.01 Long term (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; Z91.19 Patient's noncompliance with other medical treatment and regimen
CPT/HCPCS: 36415; 70450; 71045; 72125; 80048; 80053; 81000; 82962; 83605; 85025; 85610; 85730; 87040; 87088; 87430; 87804; 96361; 96365

== ENCOUNTER → 2018-10-21 | Outpatient (CLI) | payer MEDICARE ==
[~2018-10-21] MED LIST changes: +DONE5TAB30 PO
== END ==
LOC: CARD 12:24
PROVIDERS: ATTEND Internal Medicine Cardiovascular Disease
DX: I25.10 Atherosclerotic heart disease of native coronary artery without angina pectoris (principal); I65.29 Occlusion and stenosis of unspecified carotid artery; I10 Essential (primary) hypertension; R06.09 Other forms of dyspnea; I34.0 Nonrheumatic mitral (valve) insufficiency
CPT/HCPCS: 93306

== ENCOUNTER 2018-11-02 20:47 | Observation (INO) | payer MEDICARE, OTHER ==
[~2018-11-02] VITALS: Ht 174 cm; Wt 104.1 kg
--- OUTSIDE RECORDS SUMMARY | 2018-11-02 20:54 | XMS REPORT ---
Author Author Migration, Doctor Organization [facility] Address Unknown Phone Unavailable Care Team Providers Care Cad Operator Name Role Phone Migration, Doctor Unavailable Unavailable PROBLEMS Type Condition ICD9-CM Code FQR69-MZ Code Onset Dates Condition Status SNOMED Code Problem Hypogonadism in male E29.1 Active 22775774 Problem Diabetes type 2, controlled E11.9 Active 18256380 Problem Knee pain, right M25.561 Active 93351925 Problem Hammertoe of right foot M20.41 Active 191305671 Problem Type 2 diabetes mellitus without complications E11.9 Active 286976166 Problem Chronic fatigue R53.82 Active 36855787 Problem Hypertriglyceridemia E78.1 Active 295581304 Problem Other chronic pain G89.29 Active 22156270 Problem Memory loss R41.3 Active 364601884 Problem Controlled type 2 diabetes mellitus without complication, without long- term current use of insulin E11.9 Active 572004235 Problem Anxiety state, unspecified F41.1 Active 626997848 Problem 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.01 Active 2504882 Problem Mild neurocognitive disorder G31.84 Active 209844754 Problem Moderate episode of recurrent major depressive disorder F33.1 Active 837544690 Problem Chronic major depressive disorder, recurrent episode F33.9 Active 63065320 Problem Anxiety F41.9 Active 36290010 Problem senior care 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 Active 666378943 Problem Dementia with behavioral disturbance, unspecified dementia type F03.91 Active [id number] ALLERGIES No Information ENCOUNTERS Encounter Location Date Diagnosis [facility] [address] [facility] [id number] [address] Oct, [facility] [address] [id number] [address] September, Type 2 diabetes mellitus without complications E11.9 [facility] [address] [facility] [id number], [place] [address] September, [facility] [address] [place] [address] Aug, Controlled type 2 diabetes mellitus without complication, without long-term current use of insulin E11.9 and Type 2 diabetes mellitus without complications E11.9 [place] [id number] [place] [address] Jul, Controlled type 2 diabetes mellitus without complication, without long-term current use of insulin E11.9 and Type 2 diabetes mellitus without complications E11.9 [place] [id number] [place] [address] Jun, Controlled type 2 diabetes mellitus without complication, without long-term current use of insulin E11.9 and Type 2 diabetes mellitus without complications E11.9 [place] [id number] [place] [address] May, Type 2 diabetes mellitus without complications E11.9 ; senior care 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 and Hypogonadism in male E29.1 [place] [id number] [place] [address] May, Neurocognitive disorder R41.9 and Anxiety F41.9 [place] [id number] [place] [address] May, Controlled type 2 diabetes mellitus without complication, without long-term current use of insulin E11.9 and Type 2 diabetes mellitus without complications E11.9 [place] [id number] [place] [address] Apr, Dysuria R30.0 and Dementia with behavioral disturbance, unspecified dementia type F03.91 [facility] [id number] [place] [address] Apr, [facility] [id number] [place] [address] Apr, [facility] [id number] [place] [address] Apr, Medicare welcome exam Z00.00 [place] [address] [address] 17 Apr, 2018 Type 2 diabetes mellitus without complications E11.9 and Controlled type 2 diabetes mellitus without complication, without long-term current use of insulin E11.9 [place] [address] [address] 10 Apr, 2018 Medicare welcome exam Z00.00 [place] [id number] [place] [address] 04 Apr, 2018 [place] [id number] [place] [address] Apr, [facility] [id number] [place] [address] Mar, Dementia with behavioral disturbance, unspecified dementia type F03.91 [facility] [id number] [place] [address] Mar, Mild neurocognitive disorder G31.84 and Anxiety state, unspecified F41.1 [place] [address] [address] Mar, 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 [place] [address] [place] [address] Mar, Type 2 diabetes mellitus without complications E11.9 and Controlled type 2 diabetes mellitus without complication, without long-term current use of insulin E11.9 [place] [address], [place] [address] Mar, senior care (current) use of anticoagulants Z79.01 [place] [address] [place] [address] Mar, Mild neurocognitive disorder G31.84 and Anxiety state, unspecified F41.1 [place] [address] [address] 08 Mar, 2018 Anxiety state, unspecified F41.1 and Other signs and symptoms involving cognition R41.89 [facility] [address] [address] Mar, 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 [address] [id number] [address] 18 Feb, 2018 Medicare welcome exam Z00.00 and Type 2 diabetes mellitus without complications E11.9 [facility] [address] [place] [address] 29 Jan, 2018 Hypogonadism in male E29.1 [facility] [id number] [place] [address] Jan, Medicare welcome exam Z00.00 and Type 2 diabetes mellitus without complications E11.9 [facility] [address], [place] [address] Jan, Hypogonadism in male E29.1 [facility] [id number] [place] [address] Jan, [facility] [address], [place] [address] Dec, Hypogonadism in male E29.1 [facility] [address], [place] [address] Dec, Medicare welcome exam Z00.00 [facility] [id number] [place] [address] Dec, Hypogonadism in male E29.1 [facility] [address] [id number] [address] Dec, [facility] [id number] [place] [address] Nov, Hypogonadism in male E29.1 [facility] [address] [facility] [id number], [place] [address] 20 Nov, 2017 Type 2 diabetes mellitus without complications E11.9 and History of Coumadin therapy Z92.29 [facility] [address] [facility] [id number], [place] [address] 18 Nov, 2017 Medicare welcome exam Z00.00 [facility] [id number] [address] Nov, Type 2 diabetes mellitus without complications E11.9 ; History of Coumadin therapy Z92.29 and Hypogonadism in male E29.1 [facility] [id number] [address] Nov, [facility] [id number] [address] Oct, [facility] [id number], [place] [address] Oct, Diabetes type 2, controlled E11.9 [facility] [id number] [address] Oct, Medicare welcome exam Z00.00 [facility] [id number] [address] Oct, Hypogonadism in male E29.1 [facility] [address] [facility] [id number], [place] [address] Oct, [facility] [address] [facility] [id number], [place] [address] September, Hypogonadism in male E29.1 [facility] [id number] [address] September, Medicare welcome exam Z00.00 [facility] [id number] [address] September, Hypogonadism in male E29.1 [facility] [address] [address] Aug, Other chronic pain G89.29 ; Memory loss R41.3 ; Controlled type 2 diabetes mellitus without complication, without long-term current use of insulin E11.9 and Chronic major depressive disorder, recurrent episode F33.9 [facility] [id number] [place] [address] Aug, Medicare welcome exam Z00.00 [facility] [id number] [place] [address] Aug, [facility] [id number] [place] [address] Aug, Hypogonadism in male E29.1 [facility] [id number] [place] [address] Jul, [facility] [id number] [place] [address] Jul, Hypogonadism in male E29.1 [facility] [id number] [place] [address] Jul, [facility] [id number] [place] [address] Jul, Hypogonadism in male E29.1 [facility] [id number] [place] [address] Jul, Medicare welcome exam Z00.00 [facility] [id number] [place] [address] Jun, Medicare welcome exam Z00.00 [facility] [id number] [place] [address] Jun, Fever R50.9 and Influenza B J10.1 [facility] [id number] [place] [address] Jun, Hypogonadism in male E29.1 [facility] [address], [place] [address] 09 Jun, 2017 Diabetes type 2, controlled E11.9 [facility] [address], [place] [address] May, Hypogonadism in male E29.1 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 [address], [place] [address] Apr, Hypogonadism in male E29.1 [facility] [id number] [address] Apr, 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 [address], [place] [address] Apr, Hypogonadism in male E29.1 [facility] [address], [place] [address] Mar, Diabetes type 2, controlled E11.9 [facility] [address], [place] [address] Mar, Hypogonadism in male E29.1 [facility] [address], [place] [address] Mar, Hypogonadism in male E29.1 [facility] [address], [place] [address] Feb, Hypogonadism in male E29.1 [facility] [address], [place] [address] Feb, Malaise R53.81 [place] [address] [place] [address] Feb, [place] [id number] [place] [address] Feb, Diabetes type 2, controlled E11.9 [place] [id number] [place] [address] Feb, Chronic fatigue R53.82 ; Malaise R53.81 and Moderate episode of recurrent major depressive disorder F33.1 [place] [id number] [place] [address] Jan, Diabetes type 2, controlled E11.9 [place] [id number] [place] [address] Jan, 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.01 and senior care (current) use of anticoagulants Z79.01 [place] [id number] [place] [address] Dec, Diabetes type 2, controlled E11.9 and Hypertriglyceridemia E78.1 [place] [id number] [place] [address] Dec, Diabetes type 2, controlled E11.9 [place] [id number] [place] [address] Dec, High risk medication use Z79.899 and senior care (current) use of anticoagulants Z79.01 [place] [address] [place] [address] Dec, High risk medication use Z79.899 [place] [id number] [place] [address] Nov, Diabetes type 2, controlled E11.9 [place] [id number] [place] [address] Oct, Diabetes type 2, controlled E11.9 [place] [id number] [place] [address] September, Diabetes type 2, controlled E11.9 [place] [address] [place] [address] Aug, senior care (current) use of anticoagulants Z79.01 [place] [id number] [place] [address] Aug, Hematoma of arm, right, initial encounter S40.021A and senior care (current) use of anticoagulants Z79.01 [place] [id number] [place] [address] Aug, [facility] [place] [id number] [place] [address] Aug, Cellulitis of right upper extremity L03.113 [place] [id number] [place] [address] Aug, Diabetes type 2, controlled E11.9 [place] [id number] [place] [address] Aug, Hammertoe of right foot M20.41 ; Hallux abducto valgus, left M20.12 and Onychomycosis B35.1 [place] [id number] [place] [address] Aug, 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 [address], [place] [address] Jul, Diabetes type 2, controlled E11.9 [facility] [address], [place] [address] Jun, Diabetes type 2, controlled E11.9 and senior care (current) use of anticoagulants Z79.01 [facility] [address], [place] [address] May, [facility] [address] [facility] [id number], [place] [address] Apr, [facility] [address] [place] [address] Mar, [facility] [id number], [place] [address] Feb, [facility] [id number] [place] [address] Dec, Diabetes type 2, controlled E11.9 [facility] [address] [place] [address] Dec, [facility] [address], [place] [address] Nov, [facility] [address], [place] [address] Nov, Type 2 diabetes mellitus without complications E11.9 [facility] [id number] [place] [address] Oct, Type 2 diabetes mellitus without complications E11.9 [facility] [address] [place] [address] Aug, [facility] [address] [place] [address] Aug, Type 2 diabetes mellitus without complications E11.9 [facility] [id number] [place] [address] Jun, Type 2 diabetes mellitus without complications E11.9 and 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 skilled nursing use of antiplatelet drug Z79.02 [place] [id number] [place] [address] May, [place] [id number] [place] [address] May, Diabetes type 2, controlled E11.9 [place] [id number] [place] [address] Apr, Diabetes type 2, controlled E11.9 [place] [id number] [place] [address] Mar, Diabetes type 2, controlled E11.9 ; Knee pain, right M25.561 ; Other chronic pain G89.29 and Medication monitoring encounter Z51.81 [place] [id number] [place] [address] Feb, Type 2 diabetes mellitus without complications E11.9 ; High risk medication use Z79.899 and Anxiety F41.9 [place] [id number] [place] [address] Jan, Diabetes 250.00 [place] [id number] [place] [address] Dec, Diabetes 250.00 [place] [id number] [place] [address] Nov, Diabetes 250.00 [place] [id number] [place] [address] Nov, [place] [id number] [place] [address] Oct, Diabetes mellitus type 1 250.01 and High risk medication use V58.69 [place] [address] [place] [address] Oct, [place] [address] [id number] [place] [address] September, [facility] [address] [id number] [place] [address] Aug, [facility] [place] [facility] [address] [id number] [place] [address] Aug, [facility] [place] [facility] [address] [id number] [place] [address] Jul, [facility] [place] [facility] [address] [id number] [place] [address] Jul, [facility] [place] [facility] [address] [id number] [place] [address] Jun, [facility] [place] [facility] [address] [id number] [place] [address] Jun, [facility] [place] [facility] [address] [id number] [place] [address] Jun, [facility] [address] [id number] [place] [address] May, [facility] [place] [facility] [address] [id number] [place] [address] May, [facility] [address] [id number] [place] [address] Apr, [facility] [place] [facility] [address] [id number] [place] [address] Apr, [facility] [place] [facility] [address] [id number] [place] [address] Apr, [facility] [place] [facility] [address] [id number] [place] [address] Apr, [facility] [place] [facility] [address] [id number] [place] [address] Apr, [facility] [place] [facility] [address] [id number] [place] [address] Apr, [facility] [place] [facility] [address] [id number] [place] [address] Feb, [facility] [place] [facility] [address] [id number] [place] [address] Feb, [facility] [place] [facility] [address] [id number] [place] [address] Feb, [facility] [place] [facility] [address] [id number] [place] [address] Feb, [facility] [place] [facility] [address] [id number] [place] [address] Dec, [facility] [place] [facility] [address] [id number] [place] [address] Dec, [facility] [place] [facility] [address] [id number] [place] [address] Nov, [facility] [place] [facility] [address] [id number] [place] [address] Nov, [facility] [place] [facility] [address] [id number] [place] [address] Oct, [facility] [place] [facility] [address] [id number] [place] [address] Oct, [facility] [place] [facility] [address] [id number] [place] [address] Oct, [facility] [place] [facility] [address] [id number] [place] [address] Oct, [facility] [place] [facility] [address] [id number] [place] [address] Oct, [facility] [place] [facility] [address] [id number] [place] [address] Oct, [facility] [place] [facility] [address] [id number] [place] [address] September, [facility] [place] [facility] [address] [id number] [place] [address] September, [facility] [place] [facility] [address] [id number] [place] [address] September, [facility] [place] [facility] [address] [id number] [place] [address] September, [facility] [place] [facility] [address] [id number] [place] [address] September, [facility] [place] [facility] [address] [id number] [place] [address] September, [facility] [place] [facility] [address] [id number] [place] [address] Aug, [facility] [place] [facility] [address] [id number] [place] [address] Aug, [facility] [place] [facility] [address] [id number] [place] [address] Aug, [facility] [place] [facility] [address] [id number] [place] [address] Aug, [facility] [place] [facility] [address] [id number] [place] [address] Aug, [facility] [place] [facility] [address] [id number] [place] [address] Aug, [facility] [place] [facility] [address] [id number] [place] [address] Jul, [facility] [place] [facility] [address] [id number] [place] [address] Jul, [facility] [place] [facility] [address] [id number] [place] [address] Jul, [facility] [place] [facility] [address] [id number] [place] [address] Jul, [facility] [place] [facility] [address] [id number] [place] [address] May, [facility] [place] [facility] [address] [id number] [place] [address] May, [facility] [place] [facility] [address] [id number] [place] [address] Apr, 2012 [facility] [place] [facility] [address] [id number] [place] [address] Apr, 2012 [facility] [place] [facility] [address] [id number] [place] [address] Apr, 2012 [facility] [place] [facility] [address] [id number] [place] [address] Apr, 2012 [facility] [place] [facility] [address] [id number] [place] [address] Apr, [facility] [place] [facility] [address] [id number] [place] [address] Apr, [facility] [place] [facility] [address] [id number] [place] [address] Feb, [facility] [place] [facility] [address] [id number] [place] [address] Feb, [facility] [place] [facility] [address] [id number] [place] [address] Feb, [facility] [place] [facility] [address] [id number] [place] [address] Feb, [facility] [place] [facility] [address] [id number] [place] [address] Feb, [facility] [place] [facility] [address] [id number] [place] [address] Feb, [facility] [place] [facility] [address] [id number] [place] [address] Feb, [facility] [place] [facility] [address] [id number] [place] [address] Feb, [facility] [place] [facility] [address] [id number] [place] [address] Jan, [facility] [address] [id number] [place] [address] Jan, [facility] [address] [id number] [place] [address] Jan, [facility] [address] [id number] [place] [address] Jan, [facility] [address] [id number] [place] [address] Dec, [facility] [address] [id number] [place] [address] Dec, [facility] [address] [id number] [place] [address] Dec, [facility] [address] [id number] [place] [address] Nov, [facility] [place] [facility] [address] [id number][place] [address] Nov, [facility] [address] [id number] [place] [address] Oct, [facility] [place] [facility] [address] [id number] [place] [address] September, [facility] [address] [id number], [place] [address] September, [facility] [place] [facility] [address] [id number], [place] [address] September, [facility] [place] [facility] [address] [id number] [place] [address] Aug, [facility] [place] [facility] [address] [id number], [place] [address] 16 Aug, 2012 [facility] [place] [facility] [address] [id number] [place] [address] 15 Aug, 2012 [facility] [place] [facility] [address] [id number] [place] [address] Jul, [facility] [address] [id number] [place] [address] Jul, [facility] [address] [id number] [place] [address] Jun, [facility] [address] [id number] [place] [address] Jun, [facility] [address] [id number] [place] [address] Jun, [facility] [address] [id number] [place] [address] Jun, [facility] [address] [id number] [place] [address] May, [facility] [address] [id number] [place] [address] May, [facility] [address] [id number] [place] [address] Apr, [facility] [address] [id number] [place] [address] Apr, [facility] [address] [id number] [place] [address] Apr, [facility] [address] [id number] [place] [address] Apr, [facility] [address] [id number] [place] [address] Apr, [facility] [place] [facility] [address] [id number] [place] [address] Apr, [facility] [address] [id number] [place] [address] Mar, [facility] [address] [id number] [place] [address] Mar, [facility] [place] [facility] [address] [id number] [place] [address] Mar, [facility] [place] [facility] [address] [id number] [place] [address] Mar, [facility] [place] [facility] [address] [id number] [place] [address] Mar, [facility] [place] [facility] [address] [id number] [place] [address] Mar, [facility] [place] [facility] [address] [id number] [place] [address] Feb, [facility] [place] [facility] [address] [id number] [place] [address] Feb, [facility] [place] [facility] [address] [id number] [place] [address] Feb, [facility] [place] [facility] [address] [id number] [place] [address] Feb, [facility] [place] [facility] [address] [id number] [place] [address] Feb, [facility] [place] [facility] [address] [id number] [place] [address] Jan, [facility] [place] [facility] [address] [id number] [place] [address] Jan, [facility] [place] [facility] [address] [id number] [place] [address] Jan, [facility] [place] [facility] [address] [id number] [place] [address] Dec, [facility] [place] [facility] [address] [id number] [place] [address] Dec, [facility] [place] [facility] [address] [id number] [place] [address] Nov, [facility] [place] [facility] [address] [id number] [place] [address] Oct, [facility] [place] [facility] [address] [id number] [place] [address] Oct, [facility] [place] [facility] [address] [id number] [place] [address] Oct, [facility] [place] [facility] [address] [id number] [place] [address] Oct, [facility] [place] [facility] [address] [id number] [place] [address] 06 Oct, 2011 [facility] [place] [facility] [address] [id number] [place] [address] September, [facility] [place] [facility] [address] [id number] [place] [address] 18 Aug, 2011 [facility] [address] [id number] [place] [address] 18 Aug, 2011 [facility] [place] [facility] [address] [id number] [place] [address] 17 Aug, 2011 [facility] [place] [facility] [address] [id number] [place] [address] 16 Aug, 2011 [facility] [place] [facility] [address] [id number] [place] [address] 13 Aug, 2011 [facility] [place] [facility] [address] [id number] [place] [address] Aug, [facility] [place] [facility] [address] [id number] [place] [address] 11 Aug, 2011 [facility] [place] [facility] [address] [id number] [place] [address] 05 Aug, 2011 [facility] [place] [facility] [address] [id number] [place] [address] 05 Aug, 2011 [facility] [place] [facility] [address] [id number] [place] [address] Jul, [facility] [place] [facility] [address] [id number] [place] [address] 20 Jul, 2011 [facility] [place] [facility] [address] [id number] [place] [address] 20 Jul, 2011 [facility] [place] [facility] [address] [id number] [place] [address] 17 Jul, 2011 [facility] [place] [facility] [address] [id number] [place] [address] 08 Jul, 2011 [facility] [place] [facility] [address] [id number] [place] [address] 15 Jun, 2011 [facility] [place] [facility] [address] [id number] [place] [address] 14 Jun, 2011 [facility] [place] [facility] [address] [id number] [place] [address] 08 Jun, 2011 [facility] [place] [facility] [address] [id number] [place] [address] 08 Jun, 2011 [facility] [place] [facility] [address] [id number] [place] [address] May, [facility] [place] [facility] [address] [id number] [place] [address] May, [facility] [place] [facility] [address] [id number] [place] [address] May, [facility] [place] [facility] [address] [id number] [place] [address] May, [facility] [place] [facility] [address] [id number] [place] [address] May, [facility] [place] [facility] [address] [id number] [place] [address] May, [facility] [place] [facility] [address] [id number] [place] [address] May, [facility] [place] [facility] [address] [id number], [place] [address] Apr, [facility] [place] [facility] [address] [id number] [place] [address] Apr, [facility] [place] [facility] [address] [id number] [place] [address] Apr, [facility] [place] [facility] [address] [id number] [place] [address] Apr, [facility] [place] [facility] [address] [id number] [place] [address] Apr, [facility] [place] [facility] [address] [id number] [place] [address] Apr, [facility] [place] [facility] [address] [id number] [place] [address] Apr, [facility] [place] [facility] [address] [id number] [place] [address] Apr, [facility] [place] [facility] [address] [id number] [place] [address] Apr, [facility] [place] [facility] [address] [id number] [place] [address] Apr, [facility] [place] [facility] [address] [id number] [place] [address] Mar, [facility] [place] [facility] [address] [id number], [place] [address] Mar, [facility] [place] [facility] [address] [id number] [place] [address] Feb, [facility] [place] [facility] [address] [id number] [place] [address] Jun, [facility] [place] [facility] [address] [id number] [place] [address] Apr, [facility] [place] [facility] [address] [id number] [place] [address] Feb, [facility] [place] [facility] [address] [facility] [id number], [place] [address] Feb, [facility] [id number] [address] Feb, [facility] [address] [facility] [id number], [place] [address] Apr, [facility] [address] [facility] [id number], [place] [address] Apr, [facility] [address] [facility] [id number], [place] [address] Mar, [facility] [id number] [address] Mar, [facility] [id number] [address] Mar, [facility] [id number] [address] Feb, [facility] [id number] [address] Feb, [facility] [id number], [place] [address] Feb, [facility] [address] [id number], [place] [address] Jan, IMMUNIZATIONS No Known Immunizations SOCIAL HISTORY Never Assessed REASON FOR VISIT EMR-[facility] PLAN OF CARE VITAL SIGNS MEDICATIONS Unknown [...]
--- OUTSIDE RECORDS SUMMARY | 2018-11-02 20:55 | XMS REPORT ---
Author Author Migration, Doctor Organization [facility] Address Unknown Phone Unavailable Care Team Providers Care Polysom Tech Name Role Phone Migration, Doctor Unavailable Unavailable PROBLEMS Type Condition ICD9-CM Code PVX79-AD Code Onset Dates Condition Status SNOMED Code Problem Hypogonadism in male E29.1 Active 13161684 Problem Diabetes type 2, controlled E11.9 Active 10593651 Problem Knee pain, right M25.561 Active 33709030 Problem Hammertoe of right foot M20.41 Active 139803184 Problem Type 2 diabetes mellitus without complications E11.9 Active 942706230 Problem Moderate episode of recurrent major depressive disorder F33.1 Active 840812566 Problem Hypertriglyceridemia E78.1 Active 011733113 Problem Controlled type 2 diabetes mellitus without complication, without long- term current use of insulin E11.9 Active 153696852 Problem Chronic major depressive disorder, recurrent episode F33.9 Active 50553268 Problem Memory loss R41.3 Active 047924032 Problem Anxiety state, unspecified F41.1 Active 143271054 Problem 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.01 Active 1040422 Problem Mild neurocognitive disorder G31.84 Active 967437583 Problem Chronic fatigue R53.82 Active 46393581 Problem Other chronic pain G89.29 Active 26568312 Problem Anxiety F41.9 Active 53676129 Problem halfway 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 Active 157436676 Problem Dementia with behavioral disturbance, unspecified dementia type F03.91 Active [id number] ALLERGIES No Information ENCOUNTERS Encounter Location Date Diagnosis [facility] [address] [facility] [id number] [address] September, [facility] [address] [address] Aug, Controlled type 2 diabetes mellitus without complication, without long-term current use of insulin E11.9 and Type 2 diabetes mellitus without complications E11.9 [facility] [id number] [address] Jul, Controlled type 2 diabetes mellitus without complication, without long-term current use of insulin E11.9 and Type 2 diabetes mellitus without complications E11.9 [place] [id number] [place] [address] Jun, Controlled type 2 diabetes mellitus without complication, without long-term current use of insulin E11.9 and Type 2 diabetes mellitus without complications E11.9 [place] [address] [address] May, Type 2 diabetes mellitus without complications E11.9 ; halfway 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 and Hypogonadism in male E29.1 [place] [address] [address] May, Neurocognitive disorder R41.9 and Anxiety F41.9 [place] [address] [address] May, Controlled type 2 diabetes mellitus without complication, without long-term current use of insulin E11.9 and Type 2 diabetes mellitus without complications E11.9 [place] [id number] [place] [address] Apr, Dysuria R30.0 and Dementia with behavioral disturbance, unspecified dementia type F03.91 [place] [id number] [place] [address] Apr, [place] [id number] [place] [address] Apr, [place] [id number] [place] [address] Apr, Medicare welcome exam Z00.00 [place] [address] [address] Apr, Type 2 diabetes mellitus without complications E11.9 and Controlled type 2 diabetes mellitus without complication, without long-term current use of insulin E11.9 [place] [id number] [place] [address] Apr, Medicare welcome exam Z00.00 [place] [id number] [place] [address] Apr, [place] [id number] [place] [address] Apr, [place] [address] [address] Mar, Dementia with behavioral disturbance, unspecified dementia type F03.91 [place] [address] [address] Mar, Mild neurocognitive disorder G31.84 and Anxiety state, unspecified F41.1 [place] [id number] [place] [address] Mar, intermediate designer 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 [place] [id number] [place] [address] Mar, Type 2 diabetes mellitus without complications E11.9 and Controlled type 2 diabetes mellitus without complication, without long-term current use of insulin E11.9 [place] [id number] [place] [address] Mar, halfway (current) use of anticoagulants Z79.01 [place] [id number] [place] [address] Mar, Mild neurocognitive disorder G31.84 and Anxiety state, unspecified F41.1 [place] [id number] [place] [address] Mar, Anxiety state, unspecified F41.1 and Other signs and symptoms involving cognition R41.89 [place] [id number] [place] [address] Mar, [place] [id number] [place] [address] Feb, Controlled type 2 diabetes mellitus without complication, without long-term current use of insulin E11.9 ; Anxiety F41.9 ; Diabetes type 2, controlled E11.9 and intermediate designer 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 [facility] [address] [address] 18 Feb, 2018 Medicare welcome exam Z00.00 and Type 2 diabetes mellitus without complications E11.9 [facility] [address] [address] 29 Jan, 2018 Hypogonadism in male E29.1 [facility] [address] [address] 21 Jan, 2018 Medicare welcome exam Z00.00 and Type 2 diabetes mellitus without complications E11.9 [facility] [address] [address] 11 Jan, 2018 Hypogonadism in male E29.1 [facility] [id number] [address] Jan, [facility] [id number] [place] [address] Dec, Hypogonadism in male E29.1 [facility] [address] [address] Dec, Medicare welcome exam Z00.00 [facility] [address] [address] Dec, Hypogonadism in male E29.1 [facility] [address] [address] Dec, [facility] [id number] [address] Nov, Hypogonadism in male E29.1 [facility] [address] [address] Nov, Type 2 diabetes mellitus without complications E11.9 and History of Coumadin therapy Z92.29 [facility] [address] [address] 18 Nov, 2017 Medicare welcome exam Z00.00 [facility] [address] [address] 12 Nov, 2017 Type 2 diabetes mellitus without complications E11.9 ; History of Coumadin therapy Z92.29 and Hypogonadism in male E29.1 [facility] [address] [address] Nov, [facility] [id number] [address] Oct, [facility] [id number] [address] Oct, Diabetes type 2, controlled E11.9 [facility] [address] [address] Oct, Medicare welcome exam Z00.00 [facility] [address] [address] 11 Oct, 2017 Hypogonadism in male E29.1 [facility] [id number] [address] Oct, [facility] [id number] [address] September, Hypogonadism in male E29.1 [facility] [id number] [address] September, Medicare welcome exam Z00.00 [facility] [id number] [address] September, Hypogonadism in male E29.1 [facility] [id number] [address] Aug, Other chronic pain G89.29 ; Memory loss R41.3 ; Controlled type 2 diabetes mellitus without complication, without long-term current use of insulin E11.9 and Chronic major depressive disorder, recurrent episode F33.9 [facility] [address] [address] 11 Aug, 2017 Medicare welcome exam Z00.00 [facility] [id number] [address] 09 Aug, 2017 [facility] [id number] [address] Aug, Hypogonadism in male E29.1 [facility] [id number] [address] 27 Jul, 2017 [facility] [id number] [place] [address] Jul, Hypogonadism in male E29.1 [facility] [id number] [place] [address] Jul, [facility] [id number] [place] [address] Jul, Hypogonadism in male E29.1 [facility] [id number] [place] [address] Jul, Medicare welcome exam Z00.00 [facility] [id number] [address] 22 Jun, 2017 Medicare welcome exam Z00.00 [facility] [id number] [address] Jun, Fever R50.9 and Influenza B J10.1 [facility] [id number] [address] 13 Jun, 2017 Hypogonadism in male E29.1 [facility] [address] [address] 09 Jun, 2017 Diabetes type 2, controlled E11.9 [facility] [id number] [address] May, Hypogonadism in male E29.1 [facility] [id number] [address] May, intermediate designer (current) use of anticoagulants Z79.01 [facility] [id number] [address] Apr, Hypogonadism in male E29.1 [facility] [id number] [address] Apr, [facility] [id number] [address] Apr, Medicare welcome exam Z00.00 and halfway (current) use of anticoagulants Z79.01 [facility] [id number] [address] Apr, Hypogonadism in male E29.1 [facility] [id number] [address] Mar, Diabetes type 2, controlled E11.9 [facility] [id number] [address] Mar, Hypogonadism in male E29.1 [facility] [id number] [address] Mar, Hypogonadism in male E29.1 [facility] [id number] [address] Feb, Hypogonadism in male E29.1 [facility] [id number] [address] Feb, Malaise R53.81 [facility] [id number] [address] Feb, [facility] [id number] [address] Feb, Diabetes type 2, controlled E11.9 [place] [id number] [address] 06 Feb, 2017 Chronic fatigue R53.82 ; Malaise R53.81 and Moderate episode of recurrent major depressive disorder F33.1 [facility] [id number] [address] 11 Jan, 2017 Diabetes type 2, controlled E11.9 [place] [id number] [place] [address] 11 Jan, 2017 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.01 and halfway (current) use of anticoagulants Z79.01 [place] [id number] [place] [address] Dec, Diabetes type 2, controlled E11.9 and Hypertriglyceridemia E78.1 [place] [id number] [place] [address] Dec, Diabetes type 2, controlled E11.9 [place] [id number] [place] [address] Dec, High risk medication use Z79.899 and intermediate designer (current) use of anticoagulants Z79.01 [place] [id number] [place] [address] Dec, High risk medication use Z79.899 [place] [id number] [place] [address] Nov, Diabetes type 2, controlled E11.9 [place] [id number] [place] [address] Oct, Diabetes type 2, controlled E11.9 [place] [id number] [place] [address] September, Diabetes type 2, controlled E11.9 [place] [id number] [address] Aug, intermediate designer (current) use of anticoagulants Z79.01 [place] [id number] [place] [address] Aug, Hematoma of arm, right, initial encounter S40.021A and halfway (current) use of anticoagulants Z79.01 [place] [id number] [place] [address] Aug, [facility] [address] [address] Aug, Cellulitis of right upper extremity L03.113 [place] [address] [address] 14 Aug, 2016 Diabetes type 2, controlled E11.9 [place] [address] [address] Aug, Hammertoe of right foot M20.41 ; Hallux abducto valgus, left M20.12 and Onychomycosis B35.1 [place] [address] [address] Aug, intermediate designer (current) use of anticoagulants Z79.01 [place] [address] [address] Aug, intermediate designer (current) use of anticoagulants Z79.01 [place] [address] [address] Aug, intermediate designer (current) use of anticoagulants Z79.01 [facility] [place] [id number] [place] [address] Aug, Right shoulder pain M25.511 and Closed nondisplaced fracture of acromial end of right clavicle, initial encounter S42.034A [place] [address] [address] Jul, Diabetes type 2, controlled E11.9 [place] [id number] [place] [address] Jun, Diabetes type 2, controlled E11.9 and halfway (current) use of anticoagulants Z79.01 [facility] [address] [address] May, [facility] [id number] [address] Apr, [facility] [id number] [address] Mar, [facility] [id number] [place] [address] Feb, [facility] [id number] [place] [address] Dec, Diabetes type 2, controlled E11.9 [facility] [id number] [address] Dec, [facility] [id number] [place] [address] Nov, [facility] [address] [address] Nov, Type 2 diabetes mellitus without complications E11.9 [facility] [address] [address] Oct, Type 2 diabetes mellitus without complications E11.9 [facility] [address] [address] Aug, [facility] [address] [address] Aug, Type 2 diabetes mellitus without complications E11.9 [facility] [address] [address] Jun, Type 2 diabetes mellitus without complications E11.9 and 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 fci use of antiplatelet drug Z79.02 [facility] [id number] [address] May, [facility] [id number] [address] May, Diabetes type 2, controlled E11.9 [facility] [id number] [place] [address] Apr, Diabetes type 2, controlled E11.9 [facility] [address] [place] [address] Mar, Diabetes type 2, controlled E11.9 ; Knee pain, right M25.561 ; Other chronic pain G89.29 and Medication monitoring encounter Z51.81 [facility] [id number] [place] [address] Feb, Type 2 diabetes mellitus without complications E11.9 ; High risk medication use Z79.899 and Anxiety F41.9 [facility] [id number] [place] [address] Jan, Diabetes 250.00 [facility] [id number] [place] [address] Dec, Diabetes 250.00 [facility] [id number] [place] [address] Nov, Diabetes 250.00 [facility] [id number] [place] [address] Nov, [facility] [id number] [place] [address] Oct, Diabetes mellitus type 1 250.01 and High risk medication use V58.69 [facility] [id number] [address] Oct, [facility] [id number] [place] [address] September, [facility] [id number] [address] Aug, [facility] [id number] [place] [address] Aug, [facility] [place] [facility] [address] [id number] [place] [address] Jul, [facility] [place] [facility] [address] [id number] [place] [address] Jul, [facility] [place] [facility] [address] [id number] [place] [address] Jun, [facility] [place] [facility] [address] [id number] [place] [address] Jun, [facility] [place] [facility] [address] [id number] [place] [address] Jun, [facility] [place] [facility] [address] [facility] [id number] [place] [address] May, [facility] [place] [facility] [address] [facility] [id number] [place] [address] May, [facility] [place] [facility] [address] [id number] [place] [address] Apr, [facility] [place] [facility] [address] [id number] [place] [address] Apr, [facility] [place] [facility] [address] [facility] [id number] [place] [address] Apr, [facility] [place] [facility] [address] [id number] [place] [address] Apr, [facility] [place] [facility] [address] [id number] [address] Apr, [facility] [place] [facility] [address] [id number] [place] [address] Apr, [facility] [place] [facility] [address] [facility] [id number] [place] [address] Feb, [facility] [place] [facility] [address] [facility] [id number] [place] [address] Feb, [facility] [place] [facility] [address] [id number] [place] [address] Feb, [facility] [place] [facility] [address] [id number] [place] [address] Feb, [facility] [place] [facility] [address] [id number] [place] [address] Dec, [facility] [place] [facility] [address] [id number] [place] [address] Dec, [facility] [place] [facility] [address] [id number] [place] [address] Nov, [facility] [place] [facility] [address] [id number] [place] [address] Nov, [facility] [place] [facility] [address] [id number] [place] [address] Oct, [facility] [place] [facility] [address] [id number] [place] [address] Oct, [facility] [place] [facility] [address] [id number] [place] [address] Oct, [facility] [place] [facility] [address] [id number] [place] [address] Oct, [facility] [place] [facility] [address] [id number] [place] [address] Oct, [facility] [place] [facility] [address] [id number] [place] [address] Oct, [facility] [place] [facility] [address] [id number] [place] [address] September, [facility] [place] [facility] [address] [id number] [place] [address] September, [facility] [place] [facility] [address] [id number] [place] [address] September, [facility] [place] [facility] [address] [id number] [place] [address] September, [facility] [place] [facility] [address] [id number] [place] [address] September, [facility] [place] [facility] [address] [id number] [place] [address] September, [facility] [place] [facility] [address] [id number] [place] [address] Aug, [facility] [place] [facility] [address] [id number] [place] [address] Aug, [facility] [place] [facility] [address] [id number] [place] [address] Aug, [facility] [place] [facility] [address] [id number] [place] [address] Aug, [facility] [place] [facility] [address] [id number] [place] [address] Aug, [facility] [place] [facility] [address] [id number] [place] [address] Aug, [facility] [place] [facility] [address] [id number] [place] [address] Jul, [facility] [place] [facility] [address] [id number] [place] [address] Jul, [facility] [place] [facility] [address] [id number] [place] [address] Jul, [facility] [place] [facility] [address] [id number] [place] [address] Jul, [facility] [place] [facility] [address] [id number] [place] [address] May, [facility] [place] [facility] [address] [id number] [place] [address] May, [facility] [place] [facility] [address] [id number] [place] [address] Apr, [facility] [place] [facility] [address] [id number] [place] [address] 30 Apr, 2012 [facility] [address] [id number] [place] [address] Apr, 2012 [facility] [place] [facility] [address] [id number] [place] [address] Apr, 2012 [facility] [address] [id number] [place] [address] Apr, 2012 [facility] [place] [facility] [address] [id number] [place] [address] Apr, 2012 [facility] [place] [facility] [address] [id number] [place] [address] Feb, 2012 [facility] [place] [facility] [address] [id number] [place] [address] Feb, [facility] [place] [facility] [address] [id number] [place] [address] Feb, [facility] [place] [facility] [address] [id number] [place] [address] Feb, [facility] [place] [facility] [address] [id number] [place] [address] Feb, [facility] [place] [facility] [address] [facility] [id number] [place] [address] Feb, [facility] [place] [facility] [address] [id number] [place] [address] Feb, [facility] [place] [facility] [address] [id number] [place] [address] Feb, [facility] [place] [facility] [address] [id number] [place] [address] Jan, 2012 [facility] [place] [facility] [address] [id number] [place] [address] Jan, 2012 [facility] [place] [facility] [address] [address] [id number] [address] Jan, [facility] [place] [facility] [address] [id number] [place] [address] Jan, [facility] [address] [id number] [place] [address] Dec, [facility] [address] [id number] [place] [address] Dec, [facility] [address] [id number] [place] [address] Dec, [facility] [address] [id number] [place] [address] Nov, [facility] [address] [id number] [place] [address] Nov, [facility] [address] [id number] [place] [address] Oct, [facility] [address] [id number] [place] [address] September, [facility] [address] [id number] [place] [address] September, [facility] [address] [id number] [place] [address] September, [facility] [address] [id number] [place] [address] Aug, [facility] [address] [id number] [place] [address] Aug, [facility] [address] [id number] [place] [address] 15 Aug, 2012 [facility] [address] [id number] [place] [address] Jul, [facility] [address] [id number] [place] [address] 14 Jul, 2012 [facility] [address] [id number] [place] [address] Jun, [facility] [address] [id number] [place] [address] Jun, [facility] [address] [id number] [place] [address] Jun, [facility] [address] [facility] [id number] [place] [address] Jun, [facility] [address] [id number] [place] [address] May, [facility] [address] [id number] [place] [address] May, [facility] [address] [id number] [place] [address] Apr, [facility] [address] [facility] [id number] [place] [address] Apr, [facility] [address] [id number] [place] [address] Apr, [facility] [address] [facility] [id number] [place] [address] Apr, [facility] [address] [facility] [id number] [place] [address] Apr, [facility] [address] [facility] [id number] [place] [address] Apr, [facility] [place] [facility] [address] [id number] [place] [address] Mar, [facility] [place] [facility] [address] [id number] [place] [address] Mar, [facility] [place] [facility] [address] [facility] [id number] [place] [address] Mar, [facility] [place] [facility] [address] [facility] [id number] [place] [address] Mar, [facility] [place] [facility] [address] [id number] [place] [address] Mar, [facility] [place] [facility] [address] [id number] [place] [address] Mar, [facility] [place] [facility] [address] [id number] [place] [address] Feb, [facility] [place] [facility] [address] [id number] [place] [address] Feb, [facility] [place] [facility] [address] [id number] [place] [address] Feb, [facility] [place] [facility] [address] [id number] [place] [address] Feb, [facility] [place] [facility] [address] [id number] [place] [address] Feb, [facility] [place] [facility] [address] [id number] [place] [address] Jan, [facility] [place] [facility] [address] [id number] [place] [address] Jan, [facility] [place] [facility] [address] [id number] [place] [address] Jan, [facility] [place] [facility] [address] [id number] [place] [address] Dec, [facility] [place] [facility] [address] [id number] [place] [address] Dec, [facility] [place] [facility] [address] [id number] [place] [address] Nov, [facility] [place] [facility] [address] [id number] [place] [address] Oct, [facility] [place] [facility] [address] [id number] [place] [address] Oct, [facility] [place] [facility] [address] [id number] [place] [address] Oct, [facility] [place] [facility] [address] [id number] [place] [address] Oct, [facility] [place] [facility] [address] [id number] [place] [address] 06 Oct, 2011 [facility] [place] [facility] [address] [id number] [place] [address] September, [facility] [place] [facility] [address] [id number] [place] [address] 18 Aug, 2011 [facility] [place] [facility] [address] [id number] [place] [address] 18 Aug, 2011 [facility] [place] [facility] [address] [id number] [place] [address] 17 Aug, 2011 [facility] [place] [facility] [address] [id number] [place] [address] 16 Aug, 2011 [facility] [place] [facility] [address] [id number] [place] [address] 13 Aug, 2011 [facility] [place] [facility] [address] [id number] [place] [address] Aug, [facility] [place] [facility] [address] [id number] [place] [address] Aug, [facility] [place] [facility] [address] [id number] [place] [address] Aug, [facility] [place] [facility] [address] [id number] [place] [address] Aug, [facility] [place] [facility] [address] [id number] [place] [address] Jul, [facility] [place] [facility] [address] [id number] [place] [address] Jul, [facility] [place] [facility] [address] [id number] [place] [address] Jul, [facility] [place] [facility] [address] [id number] [place] [address] 17 Jul, 2011 [facility] [address] [id number] [place] [address] 08 Jul, 2011 [facility] [address] [id number] [place] [address] 15 Jun, 2011 [facility] [address] [id number] [place] [address] 14 Jun, 2011 [facility] [address] [id number] [place] [address] 08 Jun, 2011 [facility] [address] [id number] [place] [address] 08 Jun, 2011 [facility] [address] [id number] [place] [address] May, [facility] [address] [id number] [place] [address] May, [facility] [address] [id number] [place] [address] May, [facility] [address] [id number] [place] [address] May, [facility] [address] [id number] [place] [address] May, [facility] [address] [id number] [place] [address] May, [facility] [address] [id number] [place] [address] May, [facility] [address] [id number] [place] [address] Apr, [facility] [place] [facility] [address] [id number] [place] [address] 13 Apr, 2011 [facility] [address] [id number] [place] [address] Apr, [facility] [place] [facility] [address] [id number] [place] [address] Apr, [facility] [place] [facility] [address] [id number] [place] [address] Apr, [facility] [place] [facility] [address] [id number] [place] [address] Apr, [facility] [place] [facility] [address] [id number] [place] [address] Apr, [facility] [place] [facility] [address] [id number] [place] [address] Apr, [facility] [place] [facility] [address] [id number] [place] [address] Apr, [facility] [place] [facility] [address] [id number] [place] [address] Apr, [facility] [place] [facility] [address] [id number] [place] [address] Mar, [facility] [place] [facility] [address] [id number] [place] [address] Mar, [facility] [place] [facility] [address] [id number] [place] [address] Feb, [facility] [place] [facility] [address] [id number] [place] [address] Jun, [facility] [place] [facility] [address] [id number] [place] [address] Apr, [facility] [place] [facility] [address] [id number] [place] [address] Feb, [facility] [place] [facility] [address] [id number] [place] [address] Feb, [facility] [place] [facility] [address] [id number] [place] [address] Feb, [facility] [place] [facility] [address] [id number] [place] [address] Apr, [facility] [address] [id number] [address] Apr, [facility] [address] [id number] [address] Mar, [facility] [id number] [address] Mar, [facility] [id number] [address] Mar, [facility] [id number] [address] Feb, [facility] [id number] [address] Feb, [facility] [id number] [address] Feb, [facility] [address] [id number] [address] Jan, IMMUNIZATIONS No Known Immunizations SOCIAL HISTORY Never Assessed REASON FOR VISIT EMR-[facility] PLAN OF CARE VITAL SIGNS MEDICATIONS Unknown [...]
--- OUTSIDE RECORDS SUMMARY | 2018-11-02 20:55 | XMS REPORT ---
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 Name Role Phone Migration, Doctor Unavailable Unavailable PROBLEMS Type Condition ICD9-CM Code NTE30-VF Code Onset Dates Condition Status SNOMED Code Problem Hypogonadism in male E29.1 Active 79767708 Problem Diabetes type 2, controlled E11.9 Active 48510225 Problem Knee pain, right M25.561 Active 17540572 Problem Hammertoe of right foot M20.41 Active 279644844 Problem Type 2 diabetes mellitus without complications E11.9 Active 915389041 Problem Moderate episode of recurrent major depressive disorder F33.1 Active 232747261 Problem Hypertriglyceridemia E78.1 Active 336868348 Problem Controlled type 2 diabetes mellitus without complication, without long- term current use of insulin E11.9 Active 081454966 Problem Chronic major depressive disorder, recurrent episode F33.9 Active 11012744 Problem Memory loss R41.3 Active 037206601 Problem Anxiety state, unspecified F41.1 Active 901807213 Problem 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.01 Active 9089676 Problem Mild neurocognitive disorder G31.84 Active 856834458 Problem Chronic fatigue R53.82 Active 72225070 Problem Other chronic pain G89.29 Active 14962027 Problem Anxiety F41.9 Active 07068912 Problem halfway 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 Active 089557720 Problem Dementia with behavioral disturbance, unspecified dementia type F03.91 Active [id number] ALLERGIES No Information ENCOUNTERS Encounter Location Date Diagnosis [facility] [address] [facility] [id number] [address] September, [facility] [address], [place] [address] Aug, Controlled type 2 diabetes mellitus without complication, without long-term current use of insulin E11.9 and Type 2 diabetes mellitus without complications E11.9 [facility] [id number], [place] [address] Jul, Controlled type 2 diabetes mellitus without complication, without long-term current use of insulin E11.9 and Type 2 diabetes mellitus without complications E11.9 [place] [id number] [place] [address] Jun, Controlled type 2 diabetes mellitus without complication, without long-term current use of insulin E11.9 and Type 2 diabetes mellitus without complications E11.9 [place] [address] [address] May, Type 2 diabetes mellitus without complications E11.9 ; halfway 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 and Hypogonadism in male E29.1 [place] [address] [address] May, Neurocognitive disorder R41.9 and Anxiety F41.9 [place] [address] [address] May, Controlled type 2 diabetes mellitus without complication, without long-term current use of insulin E11.9 and Type 2 diabetes mellitus without complications E11.9 [place] [id number] [place] [address] Apr, Dysuria R30.0 and Dementia with behavioral disturbance, unspecified dementia type F03.91 [place] [id number] [place] [address] Apr, [place] [id number] [place] [address] Apr, [place] [id number] [place] [address] Apr, Medicare welcome exam Z00.00 [place] [address] [address] Apr, Type 2 diabetes mellitus without complications E11.9 and Controlled type 2 diabetes mellitus without complication, without long-term current use of insulin E11.9 [place] [id number] [place] [address] Apr, Medicare welcome exam Z00.00 [place] [id number] [place] [address] Apr, [place] [id number] [place] [address] Apr, [place] [address] [address] Mar, Dementia with behavioral disturbance, unspecified dementia type F03.91 [place] [address] [address] Mar, Mild neurocognitive disorder G31.84 and Anxiety state, unspecified F41.1 [place] [id number] [place] [address] Mar, buttermaker 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 [place] [id number] [place] [address] Mar, Type 2 diabetes mellitus without complications E11.9 and Controlled type 2 diabetes mellitus without complication, without long-term current use of insulin E11.9 [place] [id number] [place] [address] Mar, halfway (current) use of anticoagulants Z79.01 [place] [id number] [place] [address] Mar, Mild neurocognitive disorder G31.84 and Anxiety state, unspecified F41.1 [place] [id number] [place] [address] Mar, Anxiety state, unspecified F41.1 and Other signs and symptoms involving cognition R41.89 [place] [id number] [place] [address] Mar, [place] [id number] [place] [address] Feb, Controlled type 2 diabetes mellitus without complication, without long-term current use of insulin E11.9 ; Anxiety F41.9 ; Diabetes type 2, controlled E11.9 and buttermaker 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 [facility] [address], [place] [address] 18 Feb, 2018 Medicare welcome exam Z00.00 and Type 2 diabetes mellitus without complications E11.9 [facility] [address], [place] [address] 29 Jan, 2018 Hypogonadism in male E29.1 [facility] [address], [place] [address] 21 Jan, 2018 Medicare welcome exam Z00.00 and Type 2 diabetes mellitus without complications E11.9 [facility] [address], [place] [address] 11 Jan, 2018 Hypogonadism in male E29.1 [facility] [address] [address] Jan, [facility] [id number] [place] [address] Dec, Hypogonadism in male E29.1 [facility] [address], [place] [address] Dec, Medicare welcome exam Z00.00 [facility] [address], [place] [address] Dec, Hypogonadism in male E29.1 [facility] [address], [place] [address] Dec, [facility] [address] [address] Nov, Hypogonadism in male E29.1 [facility] [address], [place] [address] Nov, Type 2 diabetes mellitus without complications E11.9 and History of Coumadin therapy Z92.29 [facility] [address], [place] [address] 18 Nov, 2017 Medicare welcome exam Z00.00 [facility] [address], [place] [address] 12 Nov, 2017 Type 2 diabetes mellitus without complications E11.9 ; History of Coumadin therapy Z92.29 and Hypogonadism in male E29.1 [facility] [address], [place] [address] Nov, [facility] [address], [place] [address] Oct, [facility] [address], [place] [address] Oct, Diabetes type 2, controlled E11.9 [facility] [address], [place] [address] Oct, Medicare welcome exam Z00.00 [facility] [address], [place] [address] 11 Oct, 2017 Hypogonadism in male E29.1 [facility] [address], [place] [address] Oct, [facility] [address], [place] [address] September, Hypogonadism in male E29.1 [facility] [id number], [place] [address] September, Medicare welcome exam Z00.00 [facility] [id number], [place] [address] September, Hypogonadism in male E29.1 [facility] [id number], [place] [address] Aug, Other chronic pain G89.29 ; Memory loss R41.3 ; Controlled type 2 diabetes mellitus without complication, without long-term current use of insulin E11.9 and Chronic major depressive disorder, recurrent episode F33.9 [facility] [address], [place] [address] 11 Aug, 2017 Medicare welcome exam Z00.00 [facility] [address], [place] [address] 09 Aug, 2017 [facility] [address], [place] [address] Aug, Hypogonadism in male E29.1 [facility] [address], [place] [address] 27 Jul, 2017 [facility] [id number] [place] [address] Jul, Hypogonadism in male E29.1 [facility] [id number] [place] [address] Jul, [facility] [id number] [place] [address] Jul, Hypogonadism in male E29.1 [facility] [address] [place] [address] Jul, Medicare welcome exam Z00.00 [facility] [address], [place] [address] 22 Jun, 2017 Medicare welcome exam Z00.00 [facility] [address], [place] [address] Jun, Fever R50.9 and Influenza B J10.1 [facility] [address], [place] [address] 13 Jun, 2017 Hypogonadism in male E29.1 [facility] [address], [place] [address] 09 Jun, 2017 Diabetes type 2, controlled E11.9 [facility] [address], [place] [address] May, Hypogonadism in male E29.1 [facility] [address], [place] [address] May, buttermaker (current) use of anticoagulants Z79.01 [facility] [address], [place] [address] Apr, Hypogonadism in male E29.1 [facility] [address] [address] Apr, [facility] [address], [place] [address] Apr, Medicare welcome exam Z00.00 and halfway (current) use of anticoagulants Z79.01 [facility] [address], [place] [address] Apr, Hypogonadism in male E29.1 [facility] [address] [address] Mar, Diabetes type 2, controlled E11.9 [facility] [address], [place] [address] Mar, Hypogonadism in male E29.1 [facility] [address], [place] [address] Mar, Hypogonadism in male E29.1 [facility] [address], [place] [address] Feb, Hypogonadism in male E29.1 [facility] [address], [place] [address] Feb, Malaise R53.81 [facility] [address], [place] [address] Feb, [facility] [address], [place] [address] Feb, Diabetes type 2, controlled E11.9 [place] [address], [place] [address] 06 Feb, 2017 Chronic fatigue R53.82 ; Malaise R53.81 and Moderate episode of recurrent major depressive disorder F33.1 [facility] [address], [place] [address] 11 Jan, 2017 Diabetes type 2, controlled E11.9 [place] [id number] [place] [address] 11 Jan, 2017 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.01 and halfway (current) use of anticoagulants Z79.01 [place] [id number] [place] [address] Dec, Diabetes type 2, controlled E11.9 and Hypertriglyceridemia E78.1 [place] [id number] [place] [address] Dec, Diabetes type 2, controlled E11.9 [place] [id number] [place] [address] Dec, High risk medication use Z79.899 and buttermaker (current) use of anticoagulants Z79.01 [place] [id number] [place] [address] Dec, High risk medication use Z79.899 [place] [id number] [place] [address] Nov, Diabetes type 2, controlled E11.9 [place] [address] [place] [address] Oct, Diabetes type 2, controlled E11.9 [place] [id number] [place] [address] September, Diabetes type 2, controlled E11.9 [place] [address], [place] [address] Aug, buttermaker (current) use of anticoagulants Z79.01 [place] [id number] [place] [address] Aug, Hematoma of arm, right, initial encounter S40.021A and halfway (current) use of anticoagulants Z79.01 [place] [id number] [place] [address] Aug, [facility] [address] [address] Aug, Cellulitis of right upper extremity L03.113 [place] [address] [address] 14 Aug, 2016 Diabetes type 2, controlled E11.9 [place] [address] [address] Aug, Hammertoe of right foot M20.41 ; Hallux abducto valgus, left M20.12 and Onychomycosis B35.1 [place] [address] [address] Aug, buttermaker (current) use of anticoagulants Z79.01 [place] [address] [address] Aug, buttermaker (current) use of anticoagulants Z79.01 [place] [address] [address] Aug, buttermaker (current) use of anticoagulants Z79.01 [facility] [place] [id number] [place] [address] Aug, Right shoulder pain M25.511 and Closed nondisplaced fracture of acromial end of right clavicle, initial encounter S42.034A [place] [address] [address] Jul, Diabetes type 2, controlled E11.9 [place] [id number] [place] [address] Jun, Diabetes type 2, controlled E11.9 and halfway (current) use of anticoagulants Z79.01 [facility] [address], [place] [address] May, [facility] [address], [place] [address] Apr, [facility] [address], [place] [address] Mar, [facility] [id number] [place] [address] Feb, [facility] [id number] [place] [address] Dec, Diabetes type 2, controlled E11.9 [facility] [address], [place] [address] Dec, [facility] [id number] [place] [address] Nov, [facility] [address], [place] [address] Nov, Type 2 diabetes mellitus without complications E11.9 [facility] [address], [place] [address] Oct, Type 2 diabetes mellitus without complications E11.9 [facility] [address], [place] [address] Aug, [facility] [address], [place] [address] Aug, Type 2 diabetes mellitus without complications E11.9 [facility] [address], [place] [address] Jun, Type 2 diabetes mellitus without complications E11.9 and 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 usp use of antiplatelet drug Z79.02 [facility] [address], [place] [address] May, [facility] [address], [place] [address] May, Diabetes type 2, controlled E11.9 [facility] [id number] [place] [address] Apr, Diabetes type 2, controlled E11.9 [facility] [address] [place] [address] Mar, Diabetes type 2, controlled E11.9 ; Knee pain, right M25.561 ; Other chronic pain G89.29 and Medication monitoring encounter Z51.81 [facility] [id number] [place] [address] Feb, Type 2 diabetes mellitus without complications E11.9 ; High risk medication use Z79.899 and Anxiety F41.9 [facility] [id number] [place] [address] Jan, Diabetes 250.00 [facility] [id number] [place] [address] Dec, Diabetes 250.00 [facility] [id number] [place] [address] Nov, Diabetes 250.00 [facility] [id number] [place] [address] Nov, [facility] [address] [place] [address] Oct, Diabetes mellitus type 1 250.01 and High risk medication use V58.69 [facility] [address], [place] [address] Oct, [facility] [id number] [place] [address] September, [facility] [address], [place] [address] Aug, [facility] [id number] [place] [address] Aug, [facility] [place] [facility] [address] [id number] [place] [address] Jul, [facility] [place] [facility] [address] [id number] [place] [address] Jul, [facility] [place] [facility] [address] [id number] [place] [address] Jun, [facility] [place] [facility] [address] [id number] [place] [address] Jun, [facility] [place] [facility] [address] [id number] [place] [address] Jun, [facility] [place] [facility] [address] [facility] [id number] [place] [address] May, [facility] [place] [facility] [address] [facility] [id number] [place] [address] May, [facility] [place] [facility] [address] [id number] [place] [address] Apr, [facility] [place] [facility] [address] [id number] [place] [address] Apr, [facility] [place] [facility] [address] [facility] [id number] [place] [address] Apr, [facility] [place] [facility] [address] [id number] [place] [address] Apr, [facility] [place] [facility] [address] [id number], [place] [address] Apr, [facility] [place] [facility] [address] [id number] [place] [address] Apr, [facility] [place] [facility] [address] [facility] [id number] [place] [address] Feb, [facility] [place] [facility] [address] [facility] [id number] [place] [address] Feb, [facility] [place] [facility] [address] [id number] [place] [address] Feb, [facility] [place] [facility] [address] [id number] [place] [address] Feb, [facility] [place] [facility] [address] [id number] [place] [address] Dec, [facility] [place] [facility] [address] [id number] [place] [address] Dec, [facility] [place] [facility] [address] [id number] [place] [address] Nov, [facility] [place] [facility] [address] [id number] [place] [address] Nov, [facility] [place] [facility] [address] [id number] [place] [address] Oct, [facility] [place] [facility] [address] [id number] [place] [address] Oct, [facility] [place] [facility] [address] [id number] [place] [address] Oct, [facility] [place] [facility] [address] [id number] [place] [address] Oct, [facility] [place] [facility] [address] [id number] [place] [address] Oct, [facility] [place] [facility] [address] [id number] [place] [address] Oct, [facility] [place] [facility] [address] [id number] [place] [address] September, [facility] [place] [facility] [address] [id number] [place] [address] September, [facility] [place] [facility] [address] [id number] [place] [address] September, [facility] [place] [facility] [address] [id number] [place] [address] September, [facility] [place] [facility] [address] [id number] [place] [address] September, [facility] [place] [facility] [address] [id number] [place] [address] September, [facility] [place] [facility] [address] [id number] [place] [address] Aug, [facility] [place] [facility] [address] [id number] [place] [address] Aug, [facility] [place] [facility] [address] [id number] [place] [address] Aug, [facility] [place] [facility] [address] [id number] [place] [address] Aug, [facility] [place] [facility] [address] [id number] [place] [address] Aug, [facility] [place] [facility] [address] [id number] [place] [address] Aug, [facility] [place] [facility] [address] [id number] [place] [address] Jul, [facility] [place] [facility] [address] [id number] [place] [address] Jul, [facility] [place] [facility] [address] [id number] [place] [address] Jul, [facility] [place] [facility] [address] [id number], [place] [address] Jul, [facility] [place] [facility] [address] [id number] [place] [address] May, [facility] [place] [facility] [address] [id number] [place] [address] May, [facility] [place] [facility] [address] [id number] [place] [address] Apr, [facility] [place] [facility] [address] [id number] [place] [address] 30 Apr, 2012 [facility] [address] [id number] [place] [address] Apr, 2012 [facility] [place] [facility] [address] [id number] [place] [address] Apr, 2012 [facility] [address] [id number] [place] [address] Apr, 2012 [facility] [place] [facility] [address] [id number] [place] [address] Apr, 2012 [facility] [place] [facility] [address] [id number] [place] [address] Feb, 2012 [facility] [place] [facility] [address] [id number] [place] [address] Feb, [facility] [place] [facility] [address] [id number] [place] [address] Feb, [facility] [place] [facility] [address] [id number] [place] [address] Feb, [facility] [place] [facility] [address] [id number] [place] [address] Feb, [facility] [place] [facility] [address] [facility] [id number] [place] [address] Feb, [facility] [place] [facility] [address] [id number] [place] [address] Feb, [facility] [place] [facility] [address] [id number], [place] [address] Feb, [facility] [place] [facility] [address] [id number] [place] [address] Jan, 2012 [facility] [place] [facility] [address] [id number] [place] [address] Jan, 2012 [facility] [place] [facility] [address] [id number], [place] [address] Jan, [facility] [place] [facility] [address] [id number] [place] [address] Jan, [facility] [address] [id number] [place] [address] Dec, [facility] [address] [id number] [place] [address] Dec, [facility] [address] [id number] [place] [address] Dec, [facility] [address] [id number] [place] [address] Nov, [facility] [address] [id number] [place] [address] Nov, [facility] [address] [id number] [place] [address] Oct, [facility] [address] [id number] [place] [address] September, [facility] [address] [id number] [place] [address] September, [facility] [address] [id number] [place] [address] September, [facility] [address] [id number] [place] [address] Aug, [facility] [address] [id number] [place] [address] Aug, [facility] [address] [id number] [place] [address] 15 Aug, 2012 [facility] [address] [id number] [place] [address] Jul, [facility] [address] [id number] [place] [address] 14 Jul, 2012 [facility] [address] [id number] [place] [address] Jun, [facility] [address] [id number] [place] [address] Jun, [facility] [address] [id number] [place] [address] Jun, [facility] [address] [facility] [id number] [place] [address] Jun, [facility] [address] [id number] [place] [address] May, [facility] [address] [id number] [place] [address] May, [facility] [address] [id number] [place] [address] Apr, [facility] [address] [facility] [id number] [place] [address] Apr, [facility] [address] [id number] [place] [address] Apr, [facility] [address] [facility] [id number] [place] [address] Apr, [facility] [address] [facility] [id number] [place] [address] Apr, [facility] [address] [facility] [id number] [place] [address] Apr, [facility] [place] [facility] [address] [id number], [place] [address] Mar, [facility] [place] [facility] [address] [id number] [place] [address] Mar, [facility] [place] [facility] [address] [facility] [id number] [place] [address] Mar, [facility] [place] [facility] [address] [facility] [id number] [place] [address] Mar, [facility] [place] [facility] [address] [id number] [place] [address] Mar, [facility] [place] [facility] [address] [id number] [place] [address] Mar, [facility] [place] [facility] [address] [id number] [place] [address] Feb, [facility] [place] [facility] [address] [id number] [place] [address] Feb, [facility] [place] [facility] [address] [id number] [place] [address] Feb, [facility] [place] [facility] [address] [id number] [place] [address] Feb, [facility] [place] [facility] [address] [id number] [place] [address] Feb, [facility] [place] [facility] [address] [id number] [place] [address] Jan, [facility] [place] [facility] [address] [id number] [place] [address] Jan, [facility] [place] [facility] [address] [id number] [place] [address] Jan, [facility] [place] [facility] [address] [id number] [place] [address] Dec, [facility] [place] [facility] [address] [id number] [place] [address] Dec, [facility] [place] [facility] [address] [id number] [place] [address] Nov, [facility] [place] [facility] [address] [id number] [place] [address] Oct, [facility] [place] [facility] [address] [id number] [place] [address] Oct, [facility] [place] [facility] [address] [id number] [place] [address] Oct, [facility] [place] [facility] [address] [id number] [place] [address] Oct, [facility] [place] [facility] [address] [id number] [place] [address] 06 Oct, 2011 [facility] [place] [facility] [address] [id number] [place] [address] September, [facility] [place] [facility] [address] [id number] [place] [address] 18 Aug, 2011 [facility] [place] [facility] [address] [id number] [place] [address] 18 Aug, 2011 [facility] [place] [facility] [address] [id number] [place] [address] 17 Aug, 2011 [facility] [place] [facility] [address] [id number] [place] [address] 16 Aug, 2011 [facility] [place] [facility] [address] [id number] [place] [address] 13 Aug, 2011 [facility] [place] [facility] [address] [id number] [place] [address] Aug, [facility] [place] [facility] [address] [id number] [place] [address] Aug, [facility] [place] [facility] [address] [id number] [place] [address] Aug, [facility] [place] [facility] [address] [id number], [place] [address] Aug, [facility] [place] [facility] [address] [id number] [place] [address] Jul, [facility] [place] [facility] [address] [id number] [place] [address] Jul, [facility] [place] [facility] [address] [id number] [place] [address] Jul, [facility] [place] [facility] [address] [id number] [place] [address] 17 Jul, 2011 [facility] [address] [id number] [place] [address] 08 Jul, 2011 [facility] [address] [id number] [place] [address] 15 Jun, 2011 [facility] [address] [id number] [place] [address] 14 Jun, 2011 [facility] [address] [id number] [place] [address] 08 Jun, 2011 [facility] [address] [id number] [place] [address] 08 Jun, 2011 [facility] [address] [id number] [place] [address] May, [facility] [address] [id number] [place] [address] May, [facility] [address] [id number] [place] [address] May, [facility] [address] [id number] [place] [address] May, [facility] [address] [id number] [place] [address] May, [facility] [address] [id number] [place] [address] May, [facility] [address] [id number] [place] [address] May, [facility] [address] [id number] [place] [address] Apr, [facility] [place] [facility] [address] [id number] [place] [address] 13 Apr, 2011 [facility] [address] [id number] [place] [address] Apr, [facility] [place] [facility] [address] [id number] [place] [address] Apr, [facility] [place] [facility] [address] [id number] [place] [address] Apr, [facility] [place] [facility] [address] [id number] [place] [address] Apr, [facility] [place] [facility] [address] [id number] [place] [address] Apr, [facility] [place] [facility] [address] [id number] [place] [address] Apr, [facility] [place] [facility] [address] [id number] [place] [address] Apr, [facility] [place] [facility] [address] [id number] [place] [address] Apr, [facility] [place] [facility] [address] [id number] [place] [address] Mar, [facility] [place] [facility] [address] [id number] [place] [address] Mar, [facility] [place] [facility] [address] [id number] [place] [address] Feb, [facility] [place] [facility] [address] [id number] [place] [address] Jun, [facility] [place] [facility] [address] [id number], [place] [address] Apr, [facility] [place] [facility] [address] [id number] [place] [address] Feb, [facility] [place] [facility] [address] [id number] [place] [address] Feb, [facility] [place] [facility] [address] [id number] [place] [address] Feb, [facility] [place] [facility] [address] [id number], [place] [address] Apr, [facility] [address] [id number], [place] [address] Apr, [facility] [address] [id number], [place] [address] Mar, [facility] [id number], [place] [address] Mar, [facility] [id number], [place] [address] Mar, [facility] [id number], [place] [address] Feb, [facility] [id number], [place] [address] Feb, [facility] [id number], [place] [address] Feb, [facility] [address] [id number], [place] [address] Jan, IMMUNIZATIONS No Known Immunizations SOCIAL HISTORY Never Assessed REASON FOR VISIT EMR-[facility] PLAN OF CARE VITAL SIGNS MEDICATIONS Unknown [...]
--- OUTSIDE RECORDS SUMMARY | 2018-11-02 20:56 | XMS REPORT ---
Author Author Migration, Doctor Organization [facility] Address Unknown Phone Unavailable Care Team Providers Care Reversal Print Inspector Name Role Phone Migration, Doctor Unavailable Unavailable PROBLEMS Type Condition ICD9-CM Code QLH80-FN Code Onset Dates Condition Status SNOMED Code Problem Hypogonadism in male E29.1 Active 56882858 Problem Diabetes type 2, controlled E11.9 Active 23324834 Problem Knee pain, right M25.561 Active 12473039 Problem Hammertoe of right foot M20.41 Active 781480845 Problem Type 2 diabetes mellitus without complications E11.9 Active 507144568 Problem Moderate episode of recurrent major depressive disorder F33.1 Active 273126464 Problem Hypertriglyceridemia E78.1 Active 097036428 Problem Controlled type 2 diabetes mellitus without complication, without long- term current use of insulin E11.9 Active 070740394 Problem Chronic major depressive disorder, recurrent episode F33.9 Active 12324490 Problem Memory loss R41.3 Active 417880058 Problem Anxiety state, unspecified F41.1 Active 806497238 Problem 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.01 Active 1083383 Problem Mild neurocognitive disorder G31.84 Active 412769963 Problem Chronic fatigue R53.82 Active 74520080 Problem Other chronic pain G89.29 Active 04612596 Problem Anxiety F41.9 Active 13249644 Problem nursing home 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 Active 625467630 Problem Dementia with behavioral disturbance, unspecified dementia type F03.91 Active [id number] ALLERGIES No Information ENCOUNTERS Encounter Location Date Diagnosis [facility] [place] [id number], [place] [address] September, [facility] [place] [address], [place] [address] Jul, Controlled type 2 diabetes mellitus without complication, without long-term current use of insulin E11.9 and Type 2 diabetes mellitus without complications E11.9 [facility] [place] [id number], [place] [address] Jun, Controlled type 2 diabetes mellitus without complication, without long-term current use of insulin E11.9 and Type 2 diabetes mellitus without complications E11.9 [place] [id number] [place] [address] May, Type 2 diabetes mellitus without complications E11.9 ; nursing home 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 and Hypogonadism in male E29.1 [place] [address] [address] May, Neurocognitive disorder R41.9 and Anxiety F41.9 [place] [address] [address] May, Controlled type 2 diabetes mellitus without complication, without long-term current use of insulin E11.9 and Type 2 diabetes mellitus without complications E11.9 [place] [id number] [place] [address] Apr, Dysuria R30.0 and Dementia with behavioral disturbance, unspecified dementia type F03.91 [place] [id number] [place] [address] Apr, [place] [id number] [place] [address] Apr, [place] [id number] [place] [address] Apr, Medicare welcome exam Z00.00 [place] [id number] [place] [address] Apr, Type 2 diabetes mellitus without complications E11.9 and Controlled type 2 diabetes mellitus without complication, without long-term current use of insulin E11.9 [place] [id number] [place] [address] Apr, Medicare welcome exam Z00.00 [place] [id number] [place] [address] Apr, [place] [id number] [place] [address] Apr, [place] [address] [address] Mar, Dementia with behavioral disturbance, unspecified dementia type F03.91 [place] [address] [address] Mar, Mild neurocognitive disorder G31.84 and Anxiety state, unspecified F41.1 [place] [id number] [place] [address] Mar, nursing home 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 [place] [address] [address] Mar, Type 2 diabetes mellitus without complications E11.9 and Controlled type 2 diabetes mellitus without complication, without long-term current use of insulin E11.9 [place] [id number] [place] [address] Mar, 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 [place] [address] [address] Mar, Mild neurocognitive disorder G31.84 and Anxiety state, unspecified F41.1 [place] [id number] [place] [address] Mar, Anxiety state, unspecified F41.1 and Other signs and symptoms involving cognition R41.89 [place] [id number] [place] [address] Mar, [place] [id number] [place] [address] Feb, Controlled type 2 diabetes mellitus without complication, without long-term current use of insulin E11.9 ; Anxiety F41.9 ; Diabetes type 2, controlled E11.9 and 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 [place] [address] [address] Feb, Medicare welcome exam Z00.00 and Type 2 diabetes mellitus without complications E11.9 [facility] [address] [facility] [id number], [place] [address] 29 Jan, 2018 Hypogonadism in male E29.1 [facility] [place] [address] [facility] [id number], [place] [address] Jan, Medicare welcome exam Z00.00 and Type 2 diabetes mellitus without complications E11.9 [facility] [place] [address] [facility] [id number], [place] [address] 11 Jan, 2018 Hypogonadism in male E29.1 [facility] [place] [address] [facility] [id number], [place] [address] Jan, [facility] [place] [id number], [place] [address] Dec, Hypogonadism in male E29.1 [facility] [place] [address] [facility] [id number], [place] [address] Dec, Medicare welcome exam Z00.00 [facility] [place] [address] [facility] [id number], [place] [address] Dec, Hypogonadism in male E29.1 [facility] [place] [id number], [place] [address] Dec, [facility] [place] [address], [place] [address] Nov, Hypogonadism in male E29.1 [facility] [place] [address] [facility] [id number], [place] [address] Nov, Type 2 diabetes mellitus without complications E11.9 and History of Coumadin therapy Z92.29 [facility] [place] [address] [facility] [id number], [place] [address] Nov, Medicare welcome exam Z00.00 [facility] [place] [id number], [place] [address] Nov, Type 2 diabetes mellitus without complications E11.9 ; History of Coumadin therapy Z92.29 and Hypogonadism in male E29.1 [facility] [place] [address], [place] [address] Nov, [facility] [place] [address], [place] [address] Oct, [facility] [place] [address], [place] [address] Oct, Diabetes type 2, controlled E11.9 [facility] [place] [address], [place] [address] 15 Oct, 2017 Medicare welcome exam Z00.00 [facility] [place] [address], [place] [address] Oct, Hypogonadism in male E29.1 [facility] [address], [place] [address] Oct, [facility] [place] [address], [place] [address] September, Hypogonadism in male E29.1 [facility] [place] [address], [place] [address] September, Medicare welcome exam Z00.00 [facility] [place] [address], [place] [address] September, Hypogonadism in male E29.1 [facility] [place] [address], [place] [address] Aug, Other chronic pain G89.29 ; Memory loss R41.3 ; Controlled type 2 diabetes mellitus without complication, without long-term current use of insulin E11.9 and Chronic major depressive disorder, recurrent episode F33.9 [facility] [place] [id number], [place] [address] 11 Aug, 2017 Medicare welcome exam Z00.00 [facility] [place] [id number], [place] [address] 09 Aug, 2017 [facility] [address] [place] [address] Aug, Hypogonadism in male E29.1 [facility] [place] [id number] [place] [address] Jul, [facility] [place] [id number] [place] [address] Jul, Hypogonadism in male E29.1 [facility] [place] [id number] [place] [address] Jul, [facility] [id number] [place] [address] Jul, Hypogonadism in male E29.1 [facility] [place] [id number] [place] [address] Jul, Medicare welcome exam Z00.00 [facility] [place] [address] [place] [address] Jun, Medicare welcome exam Z00.00 [facility] [address] [place] [address] Jun, Fever R50.9 and Influenza B J10.1 [facility] [place] [address] [place] [address] Jun, Hypogonadism in male E29.1 [facility] [place] [address], [place] [address] Jun, Diabetes type 2, controlled E11.9 [facility] [place] [id number] [place] [address] May, Hypogonadism in male E29.1 [facility] [place] [id number], [place] [address] May, 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 [facility] [place] [address], [place] [address] Apr, Hypogonadism in male E29.1 [facility] [place] [address], [place] [address] 08 Apr, 2017 [facility] [place] [address], [place] [address] Apr, Medicare welcome exam Z00.00 and 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 [facility] [place] [address], [place] [address] Apr, Hypogonadism in male E29.1 [place] [id number] [place] [address] Mar, Diabetes type 2, controlled E11.9 [place] [id number], [place] [address] Mar, Hypogonadism in male E29.1 [place] [address], [place] [address] Mar, Hypogonadism in male E29.1 [place] [address], [place] [address] Feb, Hypogonadism in male E29.1 [place] [address], [place] [address] Feb, Malaise R53.81 [place] [address], [place] [address] Feb, [place] [address], [place] [address] Feb, Diabetes type 2, controlled E11.9 [facility] [place] [address], [place] [address] Feb, Chronic fatigue R53.82 ; Malaise R53.81 and Moderate episode of recurrent major depressive disorder F33.1 [place] [address], [place] [address] 11 Jan, 2017 Diabetes type 2, controlled E11.9 [place] [id number] [place] [address] Jan, 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.01 and 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 [place] [id number] [place] [address] Dec, Diabetes type 2, controlled E11.9 and Hypertriglyceridemia E78.1 [place] [id number] [place] [address] Dec, Diabetes type 2, controlled E11.9 [place] [id number] [place] [address] Dec, High risk medication use Z79.899 and 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 [place] [address] [place] [address] Dec, High risk medication use Z79.899 [place] [id number] [place] [address] Nov, Diabetes type 2, controlled E11.9 [place] [id number] [place] [address] Oct, Diabetes type 2, controlled E11.9 [place] [id number] [place] [address] September, Diabetes type 2, controlled E11.9 [place] [address] [place] [address] Aug, nursing home (current) use of anticoagulants Z79.01 [place] [address] [place] [address] Aug, Hematoma of arm, right, initial encounter S40.021A and nursing home (current) use of anticoagulants Z79.01 [place] [id number] [place] [address] Aug, [facility] [id number] [place] [address] Aug, Cellulitis of right upper extremity L03.113 [place] [address] [place] [address] 14 Aug, 2016 Diabetes type 2, controlled E11.9 [place] [id number] [place] [address] Aug, Hammertoe of right foot M20.41 ; Hallux abducto valgus, left M20.12 and Onychomycosis B35.1 [place] [address] [place] [address] Aug, 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 [place] [address] [place] [address] Aug, 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 [place] [address] [place] [address] Aug, nursing home (current) use of anticoagulants Z79.01 [facility] [address] [place] [address] Aug, Right shoulder pain M25.511 and Closed nondisplaced fracture of acromial end of right clavicle, initial encounter S42.034A [place] [address] [place] [address] Jul, Diabetes type 2, controlled E11.9 [place] [address] [place] [address] Jun, Diabetes type 2, controlled E11.9 and 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 [place] [address] [place] [address] May, [place] [address], [place] [address] Apr, [facility] [place] [address], [place] [address] Mar, [facility] [place] [address], [place] [address] Feb, [facility] [place] [address] [place] [address] Dec, Diabetes type 2, controlled E11.9 [facility] [place] [address], [place] [address] Dec, [facility] [place] [id number] [place] [address] Nov, [facility] [place] [address], [place] [address] Nov, Type 2 diabetes mellitus without complications E11.9 [facility] [place] [address], [place] [address] Oct, Type 2 diabetes mellitus without complications E11.9 [facility] [place] [address], [place] [address] Aug, [facility] [place] [address], [place] [address] Aug, Type 2 diabetes mellitus without complications E11.9 [facility] [place] [address], [place] [address] Jun, Type 2 diabetes mellitus without complications E11.9 and 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 [facility] [place] [address], [place] [address] May, [facility] [place] [address], [place] [address] May, Diabetes type 2, controlled E11.9 [facility] [place] [address], [place] [address] Apr, Diabetes type 2, controlled E11.9 [facility] [place] [address], [place] [address] Mar, Diabetes type 2, controlled E11.9 ; Knee pain, right M25.561 ; Other chronic pain G89.29 and Medication monitoring encounter Z51.81 [facility] [place] [address], [place] [address] Feb, Type 2 diabetes mellitus without complications E11.9 ; High risk medication use Z79.899 and Anxiety F41.9 [facility] [place] [id number] [place] [address] Jan, Diabetes 250.00 [facility] [place] [id number] [place] [address] Dec, Diabetes 250.00 [facility] [place] [id number] [place] [address] Nov, Diabetes 250.00 [facility] [place] [id number] [place] [address] Nov, [facility] [place] [id number] [place] [address] Oct, Diabetes mellitus type 1 250.01 and High risk medication use V58.69 [facility] [place] [address], [place] [address] Oct, [facility] [place] [id number] [place] [address] September, [facility] [place] [address], [place] [address] Aug, [facility] [place] [id number] [place] [address] Aug, [facility] [place] [address], [place] [address] Jul, [facility] [place] [id number] [place] [address] Jul, [facility] [place] [facility] [address] [id number] [place] [address] Jun, [facility] [place] [facility] [address] [id number] [place] [address] Jun, [facility] [place] [facility] [address] [id number] [place] [address] Jun, [facility] [place] [facility] [address] [id number] [place] [address] May, [facility] [place] [facility] [address] [id number] [place] [address] May, [facility] [place] [facility] [address] [id number] [place] [address] Apr, [facility] [place] [facility] [address] [id number] [place] [address] Apr, [facility] [place] [facility] [address] [id number] [place] [address] Apr, [facility] [place] [facility] [address] [id number] [place] [address] Apr, [facility] [place] [facility] [address] [facility] [id number] [place] [address] Apr, [facility] [place] [facility] [address] [id number] [place] [address] Apr, [facility] [place] [facility] [address] [id number] [place] [address] Feb, [facility] [place] [facility] [address] [id number] [place] [address] Feb, [facility] [place] [facility] [address] [id number] [place] [address] Feb, [facility] [place] [facility] [address] [id number] [place] [address] Feb, [facility] [place] [facility] [address] [id number] [place] [address] Dec, [facility] [place] [facility] [address] [id number] [place] [address] Dec, [facility] [place] [facility] [address] [id number] [place] [address] Nov, [facility] [place] [facility] [address] [id number] [place] [address] Nov, [facility] [place] [facility] [address] [id number] [place] [address] Oct, [facility] [place] [facility] [address] [id number] [place] [address] Oct, [facility] [place] [facility] [address] [id number] [place] [address] Oct, [facility] [place] [facility] [address] [id number] [place] [address] Oct, [facility] [place] [facility] [address] [id number] [place] [address] Oct, [facility] [place] [facility] [address] [id number] [place] [address] Oct, [facility] [place] [facility] [address] [id number] [place] [address] September, [facility] [place] [facility] [address] [id number] [place] [address] September, [facility] [place] [facility] [address] [id number] [place] [address] September, [facility] [place] [facility] [address] [id number] [place] [address] September, [facility] [place] [facility] [address] [id number] [place] [address] September, [facility] [place] [facility] [address] [id number] [place] [address] September, [facility] [place] [facility] [address] [id number] [place] [address] Aug, [facility] [place] [facility] [address] [id number] [place] [address] Aug, [facility] [place] [facility] [address] [id number] [place] [address] Aug, [facility] [place] [facility] [address] [id number] [place] [address] Aug, [facility] [place] [facility] [address] [id number] [place] [address] Aug, [facility] [place] [facility] [address] [id number] [place] [address] Aug, [facility] [place] [facility] [address] [id number] [place] [address] Jul, [facility] [place] [facility] [address] [id number] [place] [address] Jul, [facility] [place] [facility] [address] [id number] [place] [address] Jul, [facility] [place] [facility] [address] [id number] [place] [address] Jul, [facility] [place] [facility] [address] [id number] [place] [address] May, [facility] [place] [facility] [address] [id number] [place] [address] May, [facility] [place] [facility] [address] [id number] [place] [address] Apr, [facility] [place] [facility] [address] [id number] [place] [address] Apr, [facility] [place] [facility] [address] [id number] [place] [address] Apr, [facility] [place] [facility] [address] [id number] [place] [address] Apr, 2012 [facility] [address] [id number] [place] [address] Apr, 2012 [facility] [address] [id number] [place] [address] Apr, [facility] [address] [id number] [place] [address] Feb, [facility] [address] [id number] [place] [address] Feb, [facility] [address] [id number] [place] [address] Feb, [facility] [address] [id number] [place] [address] Feb, [facility] [address] [id number] [place] [address] Feb, [facility] [address] [id number] [place] [address] Feb, [facility] [address] [id number] [place] [address] Feb, [facility] [address] [facility] [id number] [place] [address] Feb, [facility] [place] [facility] [address] [id number] [place] [address] Jan, [facility] [address] [id number] [place] [address] Jan, [facility] [place] [facility] [address] [id number] [place] [address] Jan, [facility] [place] [facility] [address] [id number] [place] [address] Jan, [facility] [place] [facility] [address] [id number] [place] [address] Dec, [facility] [address] [id number] [place] [address] Dec, [facility] [place] [facility] [address] [id number] [place] [address] Dec, [facility] [place] [facility] [address] [id number] [place] [address] Nov, [facility] [place] [facility] [address] [id number] [place] [address] Nov, [facility] [address] [id number] [place] [address] Oct, [facility] [place] [facility] [address] [id number] [place] [address] September, [facility] [address] [id number] [place] [address] September, [facility] [address] [id number] [place] [address] September, [facility] [place] [facility] [address] [id number] [place] [address] Aug, [facility] [place] [facility] [address] [id number] [place] [address] Aug, [facility] [place] [facility] [address] [id number] [place] [address] Aug, [facility] [place] [facility] [address] [id number] [place] [address] Jul, [facility] [place] [facility] [address] [id number] [place] [address] Jul, [facility] [place] [facility] [address] [id number] [place] [address] Jun, [facility] [place] [facility] [address] [id number] [place] [address] Jun, [facility] [place] [facility] [address] [id number] [place] [address] Jun, [facility] [address] [id number] [place] [address] Jun, [facility] [address] [id number] [place] [address] May, [facility] [address] [id number] [place] [address] May, [facility] [place] [facility] [address] [id number] [place] [address] Apr, [facility] [address] [id number] [place] [address] Apr, [facility] [address] [id number] [place] [address] Apr, [facility] [address] [id number] [place] [address] Apr, [facility] [address] [id number] [place] [address] Apr, [facility] [address] [id number] [place] [address] Apr, [facility] [address] [id number] [place] [address] Mar, [facility] [address] [id number] [place] [address] Mar, [facility] [place] [facility] [address] [id number], [place] [address] Mar, [facility] [place] [facility] [address] [id number] [place] [address] Mar, [facility] [place] [facility] [address] [id number] [place] [address] Mar, [facility] [place] [facility] [address] [id number], [place] [address] Mar, [facility] [place] [facility] [address] [id number] [place] [address] Feb, [facility] [place] [facility] [address] [id number] [place] [address] Feb, [facility] [place] [facility] [address] [id number] [place] [address] Feb, [facility] [place] [facility] [address] [id number] [place] [address] Feb, [facility] [place] [facility] [address] [id number] [place] [address] Feb, [facility] [place] [facility] [address] [id number] [place] [address] Jan, [facility] [place] [facility] [address] [id number] [place] [address] Jan, [facility] [place] [facility] [address] [id number] [place] [address] Jan, [facility] [place] [facility] [address] [id number] [place] [address] Dec, [facility] [place] [facility] [address] [id number] [place] [address] Dec, [facility] [place] [facility] [address] [id number] [place] [address] Nov, [facility] [place] [facility] [address] [id number] [place] [address] Oct, [facility] [place] [facility] [address] [id number] [place] [address] Oct, [facility] [place] [facility] [address] [id number] [place] [address] Oct, [facility] [place] [facility] [address] [id number] [place] [address] Oct, [facility] [place] [facility] [address] [id number] [place] [address] 06 Oct, 2011 [facility] [place] [facility] [address] [id number] [place] [address] 16 Sep, 2011 [facility] [place] [facility] [address] [id number] [place] [address] 18 Aug, 2011 [facility] [place] [facility] [address] [id number] [place] [address] 18 Aug, 2011 [facility] [place] [facility] [address] [id number] [place] [address] 17 Aug, 2011 [facility] [place] [facility] [address] [id number] [place] [address] 16 Aug, 2011 [facility] [place] [facility] [address] [id number] [place] [address] 13 Aug, 2011 [facility] [place] [facility] [address] [id number] [place] [address] Aug, [facility] [place] [facility] [address] [id number] [place] [address] Aug, [facility] [place] [facility] [address] [id number] [place] [address] 05 Aug, 2011 [facility] [place] [facility] [address] [id number] [place] [address] 05 Aug, 2011 [facility] [place] [facility] [address] [id number] [place] [address] 20 Jul, 2011 [facility] [place] [facility] [address] [id number] [place] [address] Jul, [facility] [place] [facility] [address] [id number] [place] [address] 20 Jul, 2011 [facility] [place] [facility] [address] [id number] [place] [address] 17 Jul, 2011 [facility] [place] [facility] [address] [id number] [place] [address] 08 Jul, 2011 [facility] [place] [facility] [address] [id number] [place] [address] 15 Jun, 2011 [facility] [address] [id number] [place] [address] 14 Jun, 2011 [facility] [address] [id number] [place] [address] 08 Jun, 2011 [facility] [address] [id number] [place] [address] 08 Jun, 2011 [facility] [address] [id number] [place] [address] May, [facility] [address] [id number] [place] [address] May, [facility] [address] [id number] [place] [address] 10 May, 2011 [facility] [address] [id number] [place] [address] May, [facility] [address] [id number] [place] [address] May, [facility] [address] [id number] [place] [address] May, [facility] [address] [id number] [place] [address] May, [facility] [address] [id number] [place] [address] Apr, [facility] [address] [id number] [place] [address] Apr, [facility] [place] [facility] [address] [id number] [place] [address] Apr, [facility] [place] [facility] [address] [id number] [place] [address] 13 Apr, 2011 [facility] [place] [facility] [address] [id number] [place] [address] Apr, [facility] [place] [facility] [address] [id number] [place] [address] Apr, [facility] [place] [facility] [address] [id number] [place] [address] Apr, [facility] [place] [facility] [address] [id number] [place] [address] Apr, [facility] [place] [facility] [address] [id number] [place] [address] Apr, [facility] [place] [facility] [address] [id number] [place] [address] Apr, [facility] [place] [facility] [address] [id number] [place] [address] Mar, [facility] [place] [facility] [address] [id number] [place] [address] Mar, [facility] [place] [facility] [address] [id number] [place] [address] Feb, [facility] [place] [facility] [address] [id number] [place] [address] Jun, [facility] [place] [facility] [address] [id number] [place] [address] Apr, [facility] [place] [facility] [address] [id number], [place] [address] Feb, [facility] [place] [facility] [address] [id number], [place] [address] Feb, [facility] [place] [facility] [address] [id number] [place] [address] Feb, [facility] [place] [facility] [address] [id number], [place] [address] Apr, [facility] [place] [facility] [address] [id number] [place] [address] Apr, [facility] [place] [facility] [address] [facility] [id number], [place] [address] Mar, [facility] [place] [address] [facility] [id number], [place] [address] Mar, [facility] [place] [address] [id number], [place] [address] Mar, [facility] [place] [address] [facility] [id number], [place] [address] Feb, [facility] [place] [address] [id number], [place] [address] Feb, [facility] [place] [address] [id number], [place] [address] Feb, [facility] [place] [address] [id number], [place] [address] Jan, IMMUNIZATIONS No Known Immunizations SOCIAL HISTORY Never Assessed REASON FOR VISIT [facility] [place] VITAL SIGNS MEDICATIONS Medication Instructions Dosage Frequency Start Date End Date Duration Status clonidine 0.2 mg take 1 tablet (0.2 mg) by oral route 2 times per day Apr, Active Bisacodyl 10 mg 1 SUPPs by Rectal route 1 time per day PRN Apr, Active Livermore 5-325 mg take 1 tablet by Oral route every 6 hours as needed for pain PRN Jul, Active Clonazepam 0.5 mg take 1 tablet (0.5 mg) by oral route 2 times per day Jun, Active warfarin 5 mg 1 tablet by Oral route 1 time per day Apr, Active Lovastatin 20 mg 1 tablet by Oral route 1 time per day Apr, Active RESULTS No Results PROCEDURES No Known [...]
--- OUTSIDE RECORDS SUMMARY | 2018-11-02 20:57 | XMS REPORT ---
Author Author Migration, Doctor Organization [facility] Address Unknown Phone Unavailable Care Team Providers Care Warp Dresser Name Role Phone Migration, Doctor Unavailable Unavailable PROBLEMS Type Condition ICD9-CM Code PRL90-LF Code Onset Dates Condition Status SNOMED Code Problem Hypogonadism in male E29.1 Active 55584790 Problem Diabetes type 2, controlled E11.9 Active 74071415 Problem Knee pain, right M25.561 Active 09313591 Problem Hammertoe of right foot M20.41 Active 061386532 Problem Type 2 diabetes mellitus without complications E11.9 Active 533012533 Problem Moderate episode of recurrent major depressive disorder F33.1 Active 749024199 Problem Hypertriglyceridemia E78.1 Active 849132034 Problem Controlled type 2 diabetes mellitus without complication, without long- term current use of insulin E11.9 Active 521990537 Problem Chronic major depressive disorder, recurrent episode F33.9 Active 21255215 Problem Memory loss R41.3 Active 021916645 Problem Anxiety state, unspecified F41.1 Active 349570042 Problem 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.01 Active 9943116 Problem Mild neurocognitive disorder G31.84 Active 152026400 Problem Chronic fatigue R53.82 Active 05353388 Problem Other chronic pain G89.29 Active 85234854 Problem Anxiety F41.9 Active 56526518 Problem longterm 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 Active 990903096 Problem Dementia with behavioral disturbance, unspecified dementia type F03.91 Active [id number] ALLERGIES No Information ENCOUNTERS Encounter Location Date Diagnosis [facility] [id number], [place] [address] September, [facility] [address], [place] [address] Jul, Controlled type 2 diabetes mellitus without complication, without long-term current use of insulin E11.9 and Type 2 diabetes mellitus without complications E11.9 [facility] [id number], [place] [address] Jun, Controlled type 2 diabetes mellitus without complication, without long-term current use of insulin E11.9 and Type 2 diabetes mellitus without complications E11.9 [facility] [id number] [place] [address] May, Type 2 diabetes mellitus without complications E11.9 ; longterm 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 and Hypogonadism in male E29.1 [place] [address] [address] May, Neurocognitive disorder R41.9 and Anxiety F41.9 [place] [address] [address] May, Controlled type 2 diabetes mellitus without complication, without long-term current use of insulin E11.9 and Type 2 diabetes mellitus without complications E11.9 [place] [id number] [place] [address] Apr, Dysuria R30.0 and Dementia with behavioral disturbance, unspecified dementia type F03.91 [place] [id number] [place] [address] Apr, [place] [id number] [place] [address] Apr, [place] [id number] [place] [address] Apr, Medicare welcome exam Z00.00 [place] [id number] [place] [address] Apr, Type 2 diabetes mellitus without complications E11.9 and Controlled type 2 diabetes mellitus without complication, without long-term current use of insulin E11.9 [place] [id number] [place] [address] Apr, Medicare welcome exam Z00.00 [place] [id number] [place] [address] Apr, [place] [id number] [place] [address] Apr, [place] [address] [address] Mar, Dementia with behavioral disturbance, unspecified dementia type F03.91 [address] [address] [address] Mar, Mild neurocognitive disorder G31.84 and Anxiety state, unspecified F41.1 [place] [id number] [place] [address] Mar, longterm 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 [address] [address] [address] Mar, Type 2 diabetes mellitus without complications E11.9 and Controlled type 2 diabetes mellitus without complication, without long-term current use of insulin E11.9 [place] [id number] [place] [address] Mar, 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 [place] [address] [address] Mar, Mild neurocognitive disorder G31.84 and Anxiety state, unspecified F41.1 [place] [id number] [place] [address] Mar, Anxiety state, unspecified F41.1 and Other signs and symptoms involving cognition R41.89 [place] [id number] [place] [address] Mar, [place] [id number] [place] [address] Feb, Controlled type 2 diabetes mellitus without complication, without long-term current use of insulin E11.9 ; Anxiety F41.9 ; Diabetes type 2, controlled E11.9 and ferry terminal agent 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 [address] [place] [address] Feb, Medicare welcome exam Z00.00 and Type 2 diabetes mellitus without complications E11.9 [facility] [address] [facility] [id number], [place] [address] 29 Jan, 2018 Hypogonadism in male E29.1 [facility] [address] [facility] [id number], [place] [address] Jan, Medicare welcome exam Z00.00 and Type 2 diabetes mellitus without complications E11.9 [facility] [address] [facility] [id number], [place] [address] 11 Jan, 2018 Hypogonadism in male E29.1 [facility] [address] [facility] [id number], [place] [address] Jan, [facility] [id number], [place] [address] Dec, Hypogonadism in male E29.1 [facility] [address] [facility] [id number], [place] [address] Dec, Medicare welcome exam Z00.00 [facility] [address] [facility] [id number], [place] [address] Dec, Hypogonadism in male E29.1 [facility] [id number], [place] [address] Dec, [facility] [address], [place] [address] Nov, Hypogonadism in male E29.1 [facility] [address] [facility] [id number], [place] [address] Nov, Type 2 diabetes mellitus without complications E11.9 and History of Coumadin therapy Z92.29 [facility] [address] [facility] [id number], [place] [address] Nov, Medicare welcome exam Z00.00 [facility] [id number] [address] Nov, Type 2 diabetes mellitus without complications E11.9 ; History of Coumadin therapy Z92.29 and Hypogonadism in male E29.1 [facility] [address], [place] [address] Nov, [facility] [address], [place] [address] Oct, [facility] [address], [place] [address] Oct, Diabetes type 2, controlled E11.9 [facility] [address], [place] [address] 15 Oct, 2017 Medicare welcome exam Z00.00 [facility] [address], [place] [address] Oct, Hypogonadism in male E29.1 [facility] [address], [place] [address] Oct, [facility] [address], [place] [address] September, Hypogonadism in male E29.1 [facility] [address], [place] [address] September, Medicare welcome exam Z00.00 [facility] [address], [place] [address] September, Hypogonadism in male E29.1 [facility] [address], [place] [address] Aug, Other chronic pain G89.29 ; Memory loss R41.3 ; Controlled type 2 diabetes mellitus without complication, without long-term current use of insulin E11.9 and Chronic major depressive disorder, recurrent episode F33.9 [facility] [id number], [place] [address] 11 Aug, 2017 Medicare welcome exam Z00.00 [facility] [id number], [place] [address] 09 Aug, 2017 [facility] [id number] [place] [address] Aug, Hypogonadism in male E29.1 [facility] [id number] [place] [address] Jul, [facility] [id number] [place] [address] Jul, Hypogonadism in male E29.1 [facility] [id number] [place] [address] Jul, [facility] [id number] [place] [address] Jul, Hypogonadism in male E29.1 [facility] [id number] [place] [address] Jul, Medicare welcome exam Z00.00 [facility] [id number] [place] [address] Jun, Medicare welcome exam Z00.00 [facility] [id number] [place] [address] Jun, Fever R50.9 and Influenza B J10.1 [facility] [address] [place] [address] Jun, Hypogonadism in male E29.1 [facility] [address], [place] [address] Jun, Diabetes type 2, controlled E11.9 [facility] [id number] [place] [address] May, Hypogonadism in male E29.1 [facility] [address], [place] [address] May, 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 [facility] [address], [place] [address] Apr, Hypogonadism in male E29.1 [facility] [address], [place] [address] 08 Apr, 2017 [facility] [address], [place] [address] Apr, Medicare welcome exam Z00.00 and 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 [facility] [address], [place] [address] Apr, Hypogonadism in male E29.1 [address] [place] [id number] [place] [address] Mar, Diabetes type 2, controlled E11.9 [place] [address], [place] [address] Mar, Hypogonadism in male E29.1 [address] [place], [place] [address] Mar, Hypogonadism in male E29.1 [address] [address], [place] [address] Feb, Hypogonadism in male E29.1 [address] [place], [place] [address] Feb, Malaise R53.81 [address] [address], [place] [address] Feb, [address] [place], [place] [address] Feb, Diabetes type 2, controlled E11.9 [facility] [address], [place] [address] Feb, Chronic fatigue R53.82 ; Malaise R53.81 and Moderate episode of recurrent major depressive disorder F33.1 [address] [place] [address], [place] [address] 11 Jan, 2017 Diabetes type 2, controlled E11.9 [place] [id number] [place] [address] Jan, 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.01 and 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 [place] [id number] [place] [address] Dec, Diabetes type 2, controlled E11.9 and Hypertriglyceridemia E78.1 [address] [id number] [place] [address] Dec, Diabetes type 2, controlled E11.9 [place] [id number] [place] [address] Dec, High risk medication use Z79.899 and 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 [address] [id number] [place] [address] Dec, High risk medication use Z79.899 [address] [id number] [place] [address] Nov, Diabetes type 2, controlled E11.9 [address] [id number] [place] [address] Oct, Diabetes type 2, controlled E11.9 [address] [id number] [place] [address] September, Diabetes type 2, controlled E11.9 [address] [id number] [place] [address] Aug, longterm (current) use of anticoagulants Z79.01 [address] [id number] [place] [address] Aug, Hematoma of arm, right, initial encounter S40.021A and longterm (current) use of anticoagulants Z79.01 [address] [id number] [place] [address] Aug, [facility] [id number] [place] [address] Aug, Cellulitis of right upper extremity L03.113 [address] [id number] [place] [address] 14 Aug, 2016 Diabetes type 2, controlled E11.9 [address] [id number] [place] [address] Aug, Hammertoe of right foot M20.41 ; Hallux abducto valgus, left M20.12 and Onychomycosis B35.1 [address] [id number] [place] [address] Aug, 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034A [place] [id number] [place] [address] Jul, Diabetes type 2, controlled E11.9 [address] [id number] [place] [address] Jun, Diabetes type 2, controlled E11.9 and 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 [address] [place] [place] [address] May, [address] [address], [place] [address] Apr, [facility] [address], [place] [address] Mar, [facility] [address], [place] [address] Feb, [facility] [address] [place] [address] Dec, Diabetes type 2, controlled E11.9 [facility] [address], [place] [address] Dec, [facility] [id number] [place] [address] Nov, [facility] [address], [place] [address] Nov, Type 2 diabetes mellitus without complications E11.9 [facility] [address], [place] [address] Oct, Type 2 diabetes mellitus without complications E11.9 [facility] [address], [place] [address] Aug, [facility] [address], [place] [address] Aug, Type 2 diabetes mellitus without complications E11.9 [facility] [address], [place] [address] Jun, Type 2 diabetes mellitus without complications E11.9 and 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 [facility] [address], [place] [address] May, [facility] [address], [place] [address] May, Diabetes type 2, controlled E11.9 [facility] [address], [place] [address] Apr, Diabetes type 2, controlled E11.9 [facility] [address], [place] [address] Mar, Diabetes type 2, controlled E11.9 ; Knee pain, right M25.561 ; Other chronic pain G89.29 and Medication monitoring encounter Z51.81 [facility] [address], [place] [address] Feb, Type 2 diabetes mellitus without complications E11.9 ; High risk medication use Z79.899 and Anxiety F41.9 [facility] [id number] [place] [address] Jan, Diabetes 250.00 [facility] [id number] [place] [address] Dec, Diabetes 250.00 [facility] [id number] [place] [address] Nov, Diabetes 250.00 [facility] [id number] [place] [address] Nov, [facility] [id number] [place] [address] Oct, Diabetes mellitus type 1 250.01 and High risk medication use V58.69 [facility] [address], [place] [address] Oct, [facility] [id number] [place] [address] September, [facility] [address], [place] [address] Aug, [facility] [id number] [place] [address] Aug, [facility] [address], [place] [address] Jul, [facility] [id number] [place] [address] Jul, [facility] [place] [facility] [address] [id number] [place] [address] Jun, [facility] [place] [facility] [address] [id number] [place] [address] Jun, [facility] [place] [facility] [address] [id number] [place] [address] Jun, [facility] [place] [facility] [address] [id number] [place] [address] May, [facility] [place] [facility] [address] [id number] [place] [address] May, [facility] [place] [facility] [address] [id number] [place] [address] Apr, [facility] [place] [facility] [address] [id number] [place] [address] Apr, [facility] [place] [facility] [address] [id number] [place] [address] Apr, [facility] [place] [facility] [address] [id number] [place] [address] Apr, [facility] [place] [facility] [address] [facility] [id number] [place] [address] Apr, [facility] [place] [facility] [address] [id number] [place] [address] Apr, [facility] [place] [facility] [address] [id number] [place] [address] Feb, [facility] [place] [facility] [address] [id number] [place] [address] Feb, [facility] [place] [facility] [address] [id number] [place] [address] Feb, [facility] [place] [facility] [address] [id number] [place] [address] Feb, [facility] [place] [facility] [address] [id number] [place] [address] Dec, [facility] [place] [facility] [address] [id number] [place] [address] Dec, [facility] [place] [facility] [address] [id number] [place] [address] Nov, [facility] [place] [facility] [address] [id number] [place] [address] Nov, [facility] [place] [facility] [address] [id number] [place] [address] Oct, [facility] [place] [facility] [address] [id number] [place] [address] Oct, [facility] [place] [facility] [address] [id number] [place] [address] Oct, [facility] [place] [facility] [address] [id number] [place] [address] Oct, [facility] [place] [facility] [address] [id number] [place] [address] Oct, [facility] [place] [facility] [address] [id number] [place] [address] Oct, [facility] [place] [facility] [address] [id number] [place] [address] September, [facility] [place] [facility] [address] [id number] [place] [address] September, [facility] [place] [facility] [address] [id number] [place] [address] September, [facility] [place] [facility] [address] [id number] [place] [address] September, [facility] [place] [facility] [address] [id number] [place] [address] September, [facility] [place] [facility] [address] [id number] [place] [address] September, [facility] [place] [facility] [address] [id number] [place] [address] Aug, [facility] [place] [facility] [address] [id number] [place] [address] Aug, [facility] [place] [facility] [address] [id number] [place] [address] Aug, [facility] [place] [facility] [address] [id number] [place] [address] Aug, [facility] [place] [facility] [address] [id number] [place] [address] Aug, [facility] [place] [facility] [address] [id number] [place] [address] Aug, [facility] [place] [facility] [address] [id number] [place] [address] Jul, [facility] [place] [facility] [address] [id number] [place] [address] Jul, [facility] [place] [facility] [address] [id number] [place] [address] Jul, [facility] [place] [facility] [address] [id number] [place] [address] Jul, [facility] [place] [facility] [address] [id number] [place] [address] May, [facility] [place] [facility] [address] [id number] [place] [address] May, [facility] [place] [facility] [address] [id number] [place] [address] Apr, [facility] [place] [facility] [address] [id number] [place] [address] Apr, [facility] [place] [facility] [address] [id number] [place] [address] Apr, [facility] [place] [facility] [address] [id number] [place] [address] Apr, 2012 [facility] [address] [id number] [place] [address] Apr, 2012 [facility] [address] [id number] [place] [address] Apr, [facility] [address] [id number] [place] [address] Feb, [facility] [address] [id number] [place] [address] Feb, [facility] [address] [id number] [place] [address] Feb, [facility] [address] [id number] [place] [address] Feb, [facility] [address] [id number] [place] [address] Feb, [facility] [address] [id number] [place] [address] Feb, [facility] [address] [id number] [place] [address] Feb, [facility] [facility] [address] [facility] [id number] [place] [address] Feb, [facility] [place] [facility] [address] [id number] [place] [address] Jan, [facility] [address] [id number] [place] [address] Jan, [facility] [place] [facility] [address] [id number] [place] [address] Jan, [facility] [place] [facility] [address] [id number] [place] [address] Jan, [facility] [place] [facility] [address] [id number] [place] [address] Dec, [facility] [address] [id number] [place] [address] Dec, [facility] [place] [facility] [address] [id number] [place] [address] Dec, [facility] [place] [facility] [address] [id number] [place] [address] Nov, [facility] [place] [facility] [address] [id number] [place] [address] Nov, [facility] [address] [id number] [place] [address] Oct, [facility] [place] [facility] [address] [id number] [place] [address] September, [facility] [address] [id number] [place] [address] September, [facility] [address] [id number] [place] [address] September, [facility] [place] [facility] [address] [id number] [place] [address] Aug, [facility] [place] [facility] [address] [id number] [place] [address] Aug, [facility] [place] [facility] [address] [id number] [place] [address] Aug, [facility] [place] [facility] [address] [id number] [place] [address] Jul, [facility] [place] [facility] [address] [id number] [place] [address] Jul, [facility] [place] [facility] [address] [id number] [place] [address] Jun, [facility] [place] [facility] [address] [id number] [place] [address] Jun, [facility] [place] [facility] [address] [id number] [place] [address] Jun, [facility] [address] [id number] [place] [address] Jun, [facility] [address] [id number] [place] [address] May, [facility] [address] [id number] [place] [address] May, [facility] [place] [facility] [address] [id number] [place] [address] Apr, [facility] [address] [id number] [place] [address] Apr, [facility] [address] [id number] [place] [address] Apr, [facility] [address] [id number] [place] [address] Apr, [facility] [address] [id number] [place] [address] Apr, [facility] [address] [id number] [place] [address] Apr, [facility] [address] [id number] [place] [address] Mar, [facility] [address] [id number] [place] [address] Mar, [facility] [place] [facility] [address] [id number], [place] [address] Mar, [facility] [place] [facility] [address] [id number] [place] [address] Mar, [facility] [place] [facility] [address] [id number] [place] [address] Mar, [facility] [place] [facility] [address] [id number], [place] [address] Mar, [facility] [place] [facility] [address] [id number] [place] [address] Feb, [facility] [place] [facility] [address] [id number] [place] [address] Feb, [facility] [place] [facility] [address] [id number] [place] [address] Feb, [facility] [place] [facility] [address] [id number] [place] [address] Feb, [facility] [place] [facility] [address] [id number] [place] [address] Feb, [facility] [place] [facility] [address] [id number] [place] [address] Jan, [facility] [place] [facility] [address] [id number] [place] [address] Jan, [facility] [place] [facility] [address] [id number] [place] [address] Jan, [facility] [place] [facility] [address] [id number] [place] [address] Dec, [facility] [place] [facility] [address] [id number] [place] [address] Dec, [facility] [place] [facility] [address] [id number] [place] [address] Nov, [facility] [place] [facility] [address] [id number] [place] [address] Oct, [facility] [place] [facility] [address] [id number] [place] [address] Oct, [facility] [place] [facility] [address] [id number] [place] [address] Oct, [facility] [place] [facility] [address] [id number] [place] [address] Oct, [facility] [place] [facility] [address] [id number] [place] [address] 06 Oct, 2011 [facility] [place] [facility] [address] [id number] [place] [address] 16 Sep, 2011 [facility] [place] [facility] [address] [id number] [place] [address] 18 Aug, 2011 [facility] [place] [facility] [address] [id number] [place] [address] 18 Aug, 2011 [facility] [place] [facility] [address] [id number] [place] [address] 17 Aug, 2011 [facility] [place] [facility] [address] [id number] [place] [address] 16 Aug, 2011 [facility] [place] [facility] [address] [id number] [place] [address] 13 Aug, 2011 [facility] [place] [facility] [address] [id number] [place] [address] Aug, [facility] [place] [facility] [address] [id number] [place] [address] Aug, [facility] [place] [facility] [address] [id number] [place] [address] 05 Aug, 2011 [facility] [place] [facility] [address] [id number] [place] [address] 05 Aug, 2011 [facility] [place] [facility] [address] [id number] [place] [address] 20 Jul, 2011 [facility] [place] [facility] [address] [id number] [place] [address] Jul, [facility] [place] [facility] [address] [id number] [place] [address] 20 Jul, 2011 [facility] [place] [facility] [address] [id number] [place] [address] 17 Jul, 2011 [facility] [place] [facility] [address] [id number] [place] [address] 08 Jul, 2011 [facility] [place] [facility] [address] [id number] [place] [address] 15 Jun, 2011 [facility] [address] [id number] [place] [address] 14 Jun, 2011 [facility] [address] [id number] [place] [address] 08 Jun, 2011 [facility] [address] [id number] [place] [address] 08 Jun, 2011 [facility] [address] [id number] [place] [address] May, [facility] [address] [id number] [place] [address] May, [facility] [address] [id number] [place] [address] 10 May, 2011 [facility] [address] [id number] [place] [address] May, [facility] [address] [id number] [place] [address] May, [facility] [address] [id number] [place] [address] May, [facility] [address] [id number] [place] [address] May, [facility] [address] [id number] [place] [address] Apr, [facility] [address] [id number] [place] [address] Apr, [facility] [place] [facility] [address] [id number] [place] [address] Apr, [facility] [place] [facility] [address] [id number] [place] [address] 13 Apr, 2011 [facility] [place] [facility] [address] [id number] [place] [address] Apr, [facility] [place] [facility] [address] [id number] [place] [address] Apr, [facility] [place] [facility] [address] [id number] [place] [address] Apr, [facility] [place] [facility] [address] [id number] [place] [address] Apr, [facility] [place] [facility] [address] [id number] [place] [address] Apr, [facility] [place] [facility] [address] [id number] [place] [address] Apr, [facility] [place] [facility] [address] [id number] [place] [address] Mar, [facility] [place] [facility] [address] [id number] [place] [address] Mar, [facility] [place] [facility] [address] [id number] [place] [address] Feb, [facility] [place] [facility] [address] [id number] [place] [address] Jun, [facility] [place] [facility] [address] [id number] [place] [address] Apr, [facility] [place] [facility] [address] [id number], [place] [address] Feb, [facility] [place] [facility] [address] [id number], [place] [address] Feb, [facility] [place] [facility] [address] [id number] [place] [address] Feb, [facility] [place] [facility] [address] [id number], [place] [address] Apr, [facility] [place] [facility] [address] [id number] [place] [address] Apr, [facility] [place] [facility] [address] [facility] [id number] [place] [address] Mar, [facility] [address] [id number], [place] [address] Mar, [facility] [address] [id number], [place] [address] Mar, [facility] [address] [id number], [place] [address] Feb, [facility] [address] [id number], [place] [address] Feb, [facility] [address] [id number], [place] [address] Feb, [facility] [address] [id number], [place] [address] Jan, IMMUNIZATIONS No Known Immunizations SOCIAL HISTORY Never Assessed REASON FOR VISIT EMR-[facility] PLAN OF CARE VITAL SIGNS MEDICATIONS [...]
--- OUTSIDE RECORDS SUMMARY | 2018-11-02 20:57 | XMS REPORT ---
Author Author Migration, Doctor Organization [facility] Address Unknown Phone Unavailable Care Team Providers Care Supervisor [employer] Name Role Phone Migration, Doctor Unavailable Unavailable PROBLEMS Type Condition ICD9-CM Code RMY79-SL Code Onset Dates Condition Status SNOMED Code Problem Hypogonadism in male E29.1 Active 93909538 Problem Diabetes type 2, controlled E11.9 Active 15002157 Problem Knee pain, right M25.561 Active 08461570 Problem Hammertoe of right foot M20.41 Active 639888443 Problem Type 2 diabetes mellitus without complications E11.9 Active 629576121 Problem Moderate episode of recurrent major depressive disorder F33.1 Active 910408037 Problem Hypertriglyceridemia E78.1 Active 886588004 Problem Controlled type 2 diabetes mellitus without complication, without long- term current use of insulin E11.9 Active 799885205 Problem Chronic major depressive disorder, recurrent episode F33.9 Active 88595922 Problem Memory loss R41.3 Active 132519571 Problem Anxiety state, unspecified F41.1 Active 454225597 Problem 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.01 Active 0413533 Problem Mild neurocognitive disorder G31.84 Active 888508085 Problem Chronic fatigue R53.82 Active 14263493 Problem Other chronic pain G89.29 Active 79663653 Problem Anxiety F41.9 Active 43506619 Problem care home 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 Active 974677055 Problem Dementia with behavioral disturbance, unspecified dementia type F03.91 Active [id number] ALLERGIES No Information ENCOUNTERS Encounter Location Date Diagnosis [facility] [id number] [address] September, [facility] [address], [place] [address] Jul, Controlled type 2 diabetes mellitus without complication, without long-term current use of insulin E11.9 and Type 2 diabetes mellitus without complications E11.9 [facility] [id number], [place] [address] Jun, Controlled type 2 diabetes mellitus without complication, without long-term current use of insulin E11.9 and Type 2 diabetes mellitus without complications E11.9 [facility] [id number] [place] [address] May, Type 2 diabetes mellitus without complications E11.9 ; care home 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 and Hypogonadism in male E29.1 [facility] [address] [address] May, Neurocognitive disorder R41.9 and Anxiety F41.9 [facility] [address] [address] May, Controlled type 2 diabetes mellitus without complication, without long-term current use of insulin E11.9 and Type 2 diabetes mellitus without complications E11.9 [facility] [id number] [place] [address] Apr, Dysuria R30.0 and Dementia with behavioral disturbance, unspecified dementia type F03.91 [facility] [id number] [place] [address] Apr, [facility] [id number] [place] [address] Apr, [facility] [id number] [place] [address] Apr, Medicare welcome exam Z00.00 [facility] [facility] [id number] [place] [address] Apr, Type 2 diabetes mellitus without complications E11.9 and Controlled type 2 diabetes mellitus without complication, without long-term current use of insulin E11.9 [facility] [id number] [place] [address] Apr, Medicare welcome exam Z00.00 [facility] [id number] [place] [address] Apr, [facility] [id number] [place] [address] Apr, [place] [address] [address] Mar, Dementia with behavioral disturbance, unspecified dementia type F03.91 [place] [address] [address] Mar, Mild neurocognitive disorder G31.84 and Anxiety state, unspecified F41.1 [place] [id number] [place] [address] Mar, care home 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 [place] [address] [address] Mar, Type 2 diabetes mellitus without complications E11.9 and Controlled type 2 diabetes mellitus without complication, without long-term current use of insulin E11.9 [facility] [place] [id number] [place] [address] Mar, roasterman (current) use of anticoagulants Z79.01 [place] [address] [address] Mar, Mild neurocognitive disorder G31.84 and Anxiety state, unspecified F41.1 [facility] [id number] [place] [address] Mar, Anxiety state, unspecified F41.1 and Other signs and symptoms involving cognition R41.89 [place] [place] [id number] [place] [address] Mar, [facility] [id number] [place] [address] Feb, Controlled type 2 diabetes mellitus without complication, without long-term current use of insulin E11.9 ; Anxiety F41.9 ; Diabetes type 2, controlled E11.9 and roasterman 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 [address] [address] [address] Feb, Medicare welcome exam Z00.00 and Type 2 diabetes mellitus without complications E11.9 [facility] [address] [facility] [id number] [address] 29 Jan, 2018 Hypogonadism in male E29.1 [facility] [address] [facility] [id number], [place] [address] Jan, Medicare welcome exam Z00.00 and Type 2 diabetes mellitus without complications E11.9 [facility] [address] [facility] [id number], [place] [address] 11 Jan, 2018 Hypogonadism in male E29.1 [facility] [address] [facility] [id number], [place] [address] Jan, [facility] [id number], [place] [address] Dec, Hypogonadism in male E29.1 [facility] [address] [facility] [id number], [place] [address] Dec, Medicare welcome exam Z00.00 [facility] [address] [facility] [id number], [place] [address] Dec, Hypogonadism in male E29.1 [facility] [id number], [place] [address] Dec, [facility] [address], [place] [address] Nov, Hypogonadism in male E29.1 [facility] [address] [facility] [id number], [place] [address] Nov, Type 2 diabetes mellitus without complications E11.9 and History of Coumadin therapy Z92.29 [facility] [address] [facility] [id number], [place] [address] Nov, Medicare welcome exam Z00.00 [facility] [id number], [place] [address] Nov, Type 2 diabetes mellitus without complications E11.9 ; History of Coumadin therapy Z92.29 and Hypogonadism in male E29.1 [facility] [address], [place] [address] Nov, [facility] [address], [place] [address] Oct, [facility] [address], [place] [address] Oct, Diabetes type 2, controlled E11.9 [facility] [address], [place] [address] 15 Oct, 2017 Medicare welcome exam Z00.00 [facility] [address], [place] [address] Oct, Hypogonadism in male E29.1 [facility] [address], [place] [address] Oct, [facility] [address], [place] [address] September, Hypogonadism in male E29.1 [facility] [address], [place] [address] September, Medicare welcome exam Z00.00 [facility] [address], [place] [address] September, Hypogonadism in male E29.1 [facility] [address], [place] [address] Aug, Other chronic pain G89.29 ; Memory loss R41.3 ; Controlled type 2 diabetes mellitus without complication, without long-term current use of insulin E11.9 and Chronic major depressive disorder, recurrent episode F33.9 [facility] [id number], [place] [address] 11 Aug, 2017 Medicare welcome exam Z00.00 [facility] [id number], [place] [address] 09 Aug, 2017 [facility] [id number] [place] [address] Aug, Hypogonadism in male E29.1 [facility] [id number] [place] [address] Jul, [facility] [id number] [place] [address] Jul, Hypogonadism in male E29.1 [facility] [id number] [place] [address] Jul, [facility] [id number] [place] [address] Jul, Hypogonadism in male E29.1 [facility] [id number] [place] [address] Jul, Medicare welcome exam Z00.00 [facility] [id number] [place] [address] Jun, Medicare welcome exam Z00.00 [facility] [id number] [place] [address] Jun, Fever R50.9 and Influenza B J10.1 [facility] [id number] [place] [address] Jun, Hypogonadism in male E29.1 [facility] [address], [place] [address] Jun, Diabetes type 2, controlled E11.9 [facility] [id number] [place] [address] May, Hypogonadism in male E29.1 [facility] [id number], [place] [address] May, roasterman (current) use of anticoagulants Z79.01 [facility] [address], [place] [address] Apr, Hypogonadism in male E29.1 [facility] [address], [place] [address] 08 Apr, 2017 [facility] [address], [place] [address] Apr, Medicare welcome exam Z00.00 and roasterman (current) use of anticoagulants Z79.01 [facility] [address], [place] [address] Apr, Hypogonadism in male E29.1 [facility] [id number] [place] [address] Mar, Diabetes type 2, controlled E11.9 [facility] [id number], [place] [address] Mar, Hypogonadism in male E29.1 [place] [address], [place] [address] Mar, Hypogonadism in male E29.1 [facility] [facility] [address], [place] [address] Feb, Hypogonadism in male E29.1 [place] [address], [place] [address] Feb, Malaise R53.81 [address], [place] [address] Feb, [place] [address], [place] [address] Feb, Diabetes type 2, controlled E11.9 [facility] [address], [place] [address] Feb, Chronic fatigue R53.82 ; Malaise R53.81 and Moderate episode of recurrent major depressive disorder F33.1 [place] [address], [place] [address] 11 Jan, 2017 Diabetes type 2, controlled E11.9 [facility] [id number] [place] [address] Jan, 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.01 and roasterman (current) use of anticoagulants Z79.01 [place] [id number] [place] [address] Dec, Diabetes type 2, controlled E11.9 and Hypertriglyceridemia E78.1 [facility] [id number] [place] [address] Dec, Diabetes type 2, controlled E11.9 [facility] [id number] [place] [address] Dec, High risk medication use Z79.899 and roasterman (current) use of anticoagulants Z79.01 [place] [id number] [place] [address] Dec, High risk medication use Z79.899 [facility] [id number] [place] [address] Nov, Diabetes type 2, controlled E11.9 [facility] [id number] [place] [address] Oct, Diabetes type 2, controlled E11.9 [facility] [id number] [place] [address] September, Diabetes type 2, controlled E11.9 [place] [id number] [place] [address] Aug, care home (current) use of anticoagulants Z79.01 [place] [id number] [place] [address] Aug, Hematoma of arm, right, initial encounter S40.021A and care home (current) use of anticoagulants Z79.01 [place] [id number] [place] [address] Aug, [facility] [id number] [place] [address] Aug, Cellulitis of right upper extremity L03.113 [place] [id number] [place] [address] 14 Aug, 2016 Diabetes type 2, controlled E11.9 [facility] [id number] [place] [address] Aug, Hammertoe of right foot M20.41 ; Hallux abducto valgus, left M20.12 and Onychomycosis B35.1 [facility] [id number] [place] [address] Aug, roasterman (current) use of anticoagulants Z79.01 [place] [id number] [place] [address] Aug, roasterman (current) use of anticoagulants Z79.01 [place] [id number] [place] [address] Aug, care home (current) use of anticoagulants Z79.01 [facility] [address] [place] [address] Aug, Right shoulder pain M25.511 and Closed nondisplaced fracture of acromial end of right clavicle, initial encounter S42.034A [facility] [id number] [place] [address] Jul, Diabetes type 2, controlled E11.9 [place] [id number] [place] [address] Jun, Diabetes type 2, controlled E11.9 and roasterman (current) use of anticoagulants Z79.01 [address] [address] [place] [address] May, [facility] [address], [place] [address] Apr, [facility] [address], [place] [address] Mar, [facility] [address], [place] [address] Feb, [facility] [id number] [place] [address] Dec, Diabetes type 2, controlled E11.9 [facility] [address], [place] [address] Dec, [facility] [id number] [place] [address] Nov, [facility] [address], [place] [address] Nov, Type 2 diabetes mellitus without complications E11.9 [facility] [address], [place] [address] Oct, Type 2 diabetes mellitus without complications E11.9 [facility] [address], [place] [address] Aug, [facility] [address], [place] [address] Aug, Type 2 diabetes mellitus without complications E11.9 [facility] [address], [place] [address] Jun, Type 2 diabetes mellitus without complications E11.9 and 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 [facility] [address], [place] [address] May, [facility] [address], [place] [address] May, Diabetes type 2, controlled E11.9 [facility] [address], [place] [address] Apr, Diabetes type 2, controlled E11.9 [facility] [address], [place] [address] Mar, Diabetes type 2, controlled E11.9 ; Knee pain, right M25.561 ; Other chronic pain G89.29 and Medication monitoring encounter Z51.81 [facility] [address], [place] [address] Feb, Type 2 diabetes mellitus without complications E11.9 ; High risk medication use Z79.899 and Anxiety F41.9 [facility] [id number] [place] [address] Jan, Diabetes 250.00 [facility] [id number] [place] [address] Dec, Diabetes 250.00 [facility] [id number] [place] [address] Nov, Diabetes 250.00 [facility] [id number] [place] [address] Nov, [facility] [id number] [place] [address] Oct, Diabetes mellitus type 1 250.01 and High risk medication use V58.69 [facility] [address], [place] [address] Oct, [facility] [id number] [place] [address] September, [facility] [address], [place] [address] Aug, [facility] [id number] [place] [address] Aug, [facility] [address], [place] [address] Jul, [facility] [id number] [place] [address] Jul, [facility] [place] [facility] [address] [id number] [place] [address] Jun, [facility] [place] [facility] [address] [id number] [place] [address] Jun, [facility] [place] [facility] [address] [id number] [place] [address] Jun, [facility] [place] [facility] [address] [id number] [place] [address] May, [facility] [place] [facility] [address] [id number] [place] [address] May, [facility] [place] [facility] [address] [id number] [place] [address] Apr, [facility] [place] [facility] [address] [id number] [place] [address] Apr, [facility] [place] [facility] [address] [id number] [place] [address] Apr, [facility] [place] [facility] [address] [id number] [place] [address] Apr, [facility] [place] [facility] [address] [facility] [id number] [place] [address] Apr, [facility] [place] [facility] [address] [id number] [place] [address] Apr, [facility] [place] [facility] [address] [id number] [place] [address] Feb, [facility] [place] [facility] [address] [id number] [place] [address] Feb, [facility] [place] [facility] [address] [id number] [place] [address] Feb, [facility] [place] [facility] [address] [id number] [place] [address] Feb, [facility] [place] [facility] [address] [id number] [place] [address] Dec, [facility] [place] [facility] [address] [id number] [place] [address] Dec, [facility] [place] [facility] [address] [id number] [place] [address] Nov, [facility] [place] [facility] [address] [id number] [place] [address] Nov, [facility] [place] [facility] [address] [id number] [place] [address] Oct, [facility] [place] [facility] [address] [id number] [place] [address] Oct, [facility] [place] [facility] [address] [id number] [place] [address] Oct, [facility] [place] [facility] [address] [id number] [place] [address] Oct, [facility] [place] [facility] [address] [id number] [place] [address] Oct, [facility] [place] [facility] [address] [id number] [place] [address] Oct, [facility] [place] [facility] [address] [id number] [place] [address] September, [facility] [place] [facility] [address] [id number] [place] [address] September, [facility] [place] [facility] [address] [id number] [place] [address] September, [facility] [place] [facility] [address] [id number] [place] [address] September, [facility] [place] [facility] [address] [id number] [place] [address] September, [facility] [place] [facility] [address] [id number] [place] [address] September, [facility] [place] [facility] [address] [id number] [place] [address] Aug, [facility] [place] [facility] [address] [id number] [place] [address] Aug, [facility] [place] [facility] [address] [id number] [place] [address] Aug, [facility] [place] [facility] [address] [id number] [place] [address] Aug, [facility] [place] [facility] [address] [id number] [place] [address] Aug, [facility] [place] [facility] [address] [id number] [place] [address] Aug, [facility] [place] [facility] [address] [id number] [place] [address] Jul, [facility] [place] [facility] [address] [id number] [place] [address] Jul, [facility] [place] [facility] [address] [id number] [place] [address] Jul, [facility] [place] [facility] [address] [id number] [place] [address] Jul, [facility] [place] [facility] [address] [id number] [place] [address] May, [facility] [place] [facility] [address] [id number] [place] [address] May, [facility] [place] [facility] [address] [id number] [place] [address] Apr, [facility] [place] [facility] [address] [id number] [place] [address] Apr, [facility] [place] [facility] [address] [id number] [place] [address] Apr, [facility] [place] [facility] [address] [id number] [place] [address] Apr, 2012 [facility] [address] [id number] [place] [address] Apr, 2012 [facility] [address] [id number] [place] [address] Apr, [facility] [address] [id number] [place] [address] Feb, [facility] [address] [id number] [place] [address] Feb, [facility] [address] [id number] [place] [address] Feb, [facility] [address] [id number] [place] [address] Feb, [facility] [address] [id number] [place] [address] Feb, [facility] [address] [id number] [place] [address] Feb, [facility] [address] [id number] [place] [address] Feb, [facility] [address] [facility] [id number] [place] [address] Feb, [facility] [place] [facility] [address] [id number] [place] [address] Jan, [facility] [address] [id number] [place] [address] Jan, [facility] [place] [facility] [address] [id number] [place] [address] Jan, [facility] [place] [facility] [address] [id number] [place] [address] Jan, [facility] [place] [facility] [address] [id number] [place] [address] Dec, [facility] [address] [id number] [place] [address] Dec, [facility] [place] [facility] [address] [id number] [place] [address] Dec, [facility] [place] [facility] [address] [id number] [place] [address] Nov, [facility] [place] [facility] [address] [id number] [place] [address] Nov, [facility] [address] [id number] [place] [address] Oct, [facility] [place] [facility] [address] [id number] [place] [address] September, [facility] [address] [id number] [place] [address] September, [facility] [address] [id number] [place] [address] September, [facility] [place] [facility] [address] [id number] [place] [address] Aug, [facility] [place] [facility] [address] [id number] [place] [address] Aug, [facility] [place] [facility] [address] [id number] [place] [address] Aug, [facility] [place] [facility] [address] [id number] [place] [address] Jul, [facility] [place] [facility] [address] [id number] [place] [address] Jul, [facility] [place] [facility] [address] [id number] [place] [address] Jun, [facility] [place] [facility] [address] [id number] [place] [address] Jun, [facility] [place] [facility] [address] [id number] [place] [address] Jun, [facility] [address] [id number] [place] [address] Jun, [facility] [address] [id number] [place] [address] May, [facility] [address] [id number] [place] [address] May, [facility] [place] [facility] [address] [id number] [place] [address] Apr, [facility] [address] [id number] [place] [address] Apr, [facility] [address] [id number] [place] [address] Apr, [facility] [address] [id number] [place] [address] Apr, [facility] [address] [id number] [place] [address] Apr, [facility] [address] [id number] [place] [address] Apr, [facility] [address] [id number] [place] [address] Mar, [facility] [address] [id number] [place] [address] Mar, [facility] [place] [facility] [address] [id number], [place] [address] Mar, [facility] [place] [facility] [address] [id number] [place] [address] Mar, [facility] [place] [facility] [address] [id number] [place] [address] Mar, [facility] [place] [facility] [address] [id number], [place] [address] Mar, [facility] [place] [facility] [address] [id number] [place] [address] Feb, [facility] [place] [facility] [address] [id number] [place] [address] Feb, [facility] [place] [facility] [address] [id number] [place] [address] Feb, [facility] [place] [facility] [address] [id number] [place] [address] Feb, [facility] [place] [facility] [address] [id number] [place] [address] Feb, [facility] [place] [facility] [address] [id number] [place] [address] Jan, [facility] [place] [facility] [address] [id number] [place] [address] Jan, [facility] [place] [facility] [address] [id number] [place] [address] Jan, [facility] [place] [facility] [address] [id number] [place] [address] Dec, [facility] [place] [facility] [address] [id number] [place] [address] Dec, [facility] [place] [facility] [address] [id number] [place] [address] Nov, [facility] [place] [facility] [address] [id number] [place] [address] Oct, [facility] [place] [facility] [address] [id number] [place] [address] Oct, [facility] [place] [facility] [address] [id number] [place] [address] Oct, [facility] [place] [facility] [address] [id number] [place] [address] Oct, [facility] [place] [facility] [address] [id number] [place] [address] 06 Oct, 2011 [facility] [place] [facility] [address] [id number] [place] [address] 16 Sep, 2011 [facility] [place] [facility] [address] [id number] [place] [address] 18 Aug, 2011 [facility] [place] [facility] [address] [id number] [place] [address] 18 Aug, 2011 [facility] [place] [facility] [address] [id number] [place] [address] 17 Aug, 2011 [facility] [place] [facility] [address] [id number] [place] [address] 16 Aug, 2011 [facility] [place] [facility] [address] [id number] [place] [address] 13 Aug, 2011 [facility] [place] [facility] [address] [id number] [place] [address] Aug, [facility] [place] [facility] [address] [id number] [place] [address] Aug, [facility] [place] [facility] [address] [id number] [place] [address] 05 Aug, 2011 [facility] [place] [facility] [address] [id number] [place] [address] 05 Aug, 2011 [facility] [place] [facility] [address] [id number] [place] [address] 20 Jul, 2011 [facility] [place] [facility] [address] [id number] [place] [address] Jul, [facility] [place] [facility] [address] [id number] [place] [address] 20 Jul, 2011 [facility] [place] [facility] [address] [id number] [place] [address] 17 Jul, 2011 [facility] [place] [facility] [address] [id number] [place] [address] 08 Jul, 2011 [facility] [place] [facility] [address] [id number] [place] [address] 15 Jun, 2011 [facility] [address] [id number] [place] [address] 14 Jun, 2011 [facility] [address] [id number] [place] [address] 08 Jun, 2011 [facility] [address] [id number] [place] [address] 08 Jun, 2011 [facility] [address] [id number] [place] [address] May, [facility] [address] [id number] [place] [address] May, [facility] [address] [id number] [place] [address] 10 May, 2011 [facility] [address] [id number] [place] [address] May, [facility] [address] [id number] [place] [address] May, [facility] [address] [id number] [place] [address] May, [facility] [address] [id number] [place] [address] May, [facility] [address] [id number] [place] [address] Apr, [facility] [address] [id number] [place] [address] Apr, [facility] [place] [facility] [address] [id number] [place] [address] Apr, [facility] [place] [facility] [address] [id number] [place] [address] 13 Apr, 2011 [facility] [place] [facility] [address] [id number] [place] [address] Apr, [facility] [place] [facility] [address] [id number] [place] [address] Apr, [facility] [place] [facility] [address] [id number] [place] [address] Apr, [facility] [place] [facility] [address] [id number] [place] [address] Apr, [facility] [place] [facility] [address] [id number] [place] [address] Apr, [facility] [place] [facility] [address] [id number] [place] [address] Apr, [facility] [place] [facility] [address] [id number] [place] [address] Mar, [facility] [place] [facility] [address] [id number] [place] [address] Mar, [facility] [place] [facility] [address] [id number] [place] [address] Feb, [facility] [place] [facility] [address] [id number] [place] [address] Jun, [facility] [place] [facility] [address] [id number] [place] [address] Apr, [facility] [place] [facility] [address] [id number], [place] [address] Feb, [facility] [place] [facility] [address] [id number], [place] [address] Feb, [facility] [place] [facility] [address] [id number] [place] [address] Feb, [facility] [place] [facility] [address] [id number], [place] [address] Apr, [facility] [place] [facility] [address] [id number] [place] [address] Apr, [facility] [place] [facility] [address] [facility] [id number] [place] [address] Mar, [facility] [address] [id number] [address] Mar, [facility] [address] [id number], [place] [address] Mar, [facility] [address] [id number], [place] [address] Feb, [facility] [address] [id number], [place] [address] Feb, [facility] [address] [id number], [place] [address] Feb, [facility] [address] [id number], [place] [address] Jan, IMMUNIZATIONS No Known Immunizations SOCIAL HISTORY Never Assessed REASON FOR VISIT [place]MR[place] [place]AN OF CARE VITAL SIGNS MEDICATIONS Unknown [...]
--- OUTSIDE RECORDS SUMMARY | 2018-11-02 20:58 | XMS REPORT ---
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 Name Role Phone Migration, Doctor Unavailable Unavailable PROBLEMS Type Condition ICD9-CM Code DNH45-ZB Code Onset Dates Condition Status SNOMED Code Problem Hypogonadism in male E29.1 Active 79799054 Problem Diabetes type 2, controlled E11.9 Active 00888344 Problem Knee pain, right M25.561 Active 93427257 Problem Hammertoe of right foot M20.41 Active 355023875 Problem Type 2 diabetes mellitus without complications E11.9 Active 699970539 Problem Moderate episode of recurrent major depressive disorder F33.1 Active 738292989 Problem Hypertriglyceridemia E78.1 Active 686673704 Problem Controlled type 2 diabetes mellitus without complication, without long- term current use of insulin E11.9 Active 619643312 Problem Chronic major depressive disorder, recurrent episode F33.9 Active 22924068 Problem Memory loss R41.3 Active 555026203 Problem Anxiety state, unspecified F41.1 Active 454190598 Problem 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.01 Active 8015672 Problem Mild neurocognitive disorder G31.84 Active 124035160 Problem Chronic fatigue R53.82 Active 08744838 Problem Other chronic pain G89.29 Active 48873433 Problem Anxiety F41.9 Active 76569238 Problem prison 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 Active 245062817 Problem Dementia with behavioral disturbance, unspecified dementia type F03.91 Active [id number] ALLERGIES No Information ENCOUNTERS Encounter Location Date Diagnosis [facility] [address] [facility] [id number] [address] Jun, Controlled type 2 diabetes mellitus without complication, without long-term current use of insulin E11.9 and Type 2 diabetes mellitus without complications E11.9 [facility] [address] [facility] [id number] [address] May, Type 2 diabetes mellitus without complications E11.9 ; 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 and Hypogonadism in male E29.1 [place] [id number] [place] [address] May, Neurocognitive disorder R41.9 and Anxiety F41.9 [place] [address] [place] [id number] [place] [address] May, Controlled type 2 diabetes mellitus without complication, without long-term current use of insulin E11.9 and Type 2 diabetes mellitus without complications E11.9 [place] [address] [place] [id number] [place] [address] Apr, Dysuria R30.0 and Dementia with behavioral disturbance, unspecified dementia type F03.91 [place] [address] [place] [id number] [place] [address] Apr, [place] [address] [place] [id number] [place] [address] Apr, [place] [address] [place] [id number] [place] [address] Apr, Medicare welcome exam Z00.00 [place] [address] [place] [id number] [place] [address] 17 Apr, 2018 Type 2 diabetes mellitus without complications E11.9 and Controlled type 2 diabetes mellitus without complication, without long-term current use of insulin E11.9 [place] [address] [address] Apr, Medicare welcome exam Z00.00 [place] [id number] [place] [address] Apr, [place] [address] [place] [id number] [place] [address] Apr, [place] [address] [place] [id number] [place] [address] Mar, Dementia with behavioral disturbance, unspecified dementia type F03.91 [place] [address] [place] [id number] [place] [address] Mar, Mild neurocognitive disorder G31.84 and Anxiety state, unspecified F41.1 [facility] [address] [place] [id number] [place] [address] Mar, prison 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 [place] [address] [place] [id number] [place] [address] Mar, Type 2 diabetes mellitus without complications E11.9 and Controlled type 2 diabetes mellitus without complication, without long-term current use of insulin E11.9 [facility] [address] [place] [id number] [place] [address] Mar, prison (current) use of anticoagulants Z79.01 [place] [address] [place] [id number] [place] [address] Mar, Mild neurocognitive disorder G31.84 and Anxiety state, unspecified F41.1 [place] [address] [place] [id number] [place] [address] Mar, Anxiety state, unspecified F41.1 and Other signs and symptoms involving cognition R41.89 [place] [address] [place] [id number] [place] [address] Mar, [place] [address] [place] [id number] [place] [address] Feb, Controlled type 2 diabetes mellitus without complication, without long-term current use of insulin E11.9 ; Anxiety F41.9 ; Diabetes type 2, controlled E11.9 and 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 [facility] [id number] [place] [address] Feb, Medicare welcome exam Z00.00 and Type 2 diabetes mellitus without complications E11.9 [facility] [id number] [place] [address] Jan, Hypogonadism in male E29.1 [facility] [address] [place] [id number] [place] [address] Jan, Medicare welcome exam Z00.00 and Type 2 diabetes mellitus without complications E11.9 [facility] [address] [facility] [id number] [address] Jan, Hypogonadism in male E29.1 [facility] [address] [facility] [id number] [place] [address] Jan, [facility] [address] [facility] [id number] [address] Dec, Hypogonadism in male E29.1 [facility] [address] [facility] [id number] [place] [address] Dec, Medicare welcome exam Z00.00 [facility] [address] [facility] [id number] [address] Dec, Hypogonadism in male E29.1 [facility] [address] [facility] [id number], [place] [address] Dec, [facility] [address] [facility] [id number] [address] Nov, Hypogonadism in male E29.1 [facility] [address] [facility] [id number] [address] Nov, Type 2 diabetes mellitus without complications E11.9 and History of Coumadin therapy Z92.29 [facility] [address] [facility] [id number], [place] [address] Nov, Medicare welcome exam Z00.00 [facility] [address] [facility] [id number], [place] [address] Nov, Type 2 diabetes mellitus without complications E11.9 ; History of Coumadin therapy Z92.29 and Hypogonadism in male E29.1 [facility] [address] [facility] [id number] [address] Nov, [facility] [address] [facility] [id number] [address] Oct, [facility] [address] [address] Oct, Diabetes type 2, controlled E11.9 [facility] [address]65100[place] [address] 15 Oct, 2017 Medicare welcome exam Z00.00 [facility] [address] [place] [address] Oct, Hypogonadism in male E29.1 [facility] [address]65100[place] [address] Oct, [facility] [address] [place] [id number] [place] [address] September, Hypogonadism in male E29.1 [facility] [address] [place] [id number] [place] [address] September, Medicare welcome exam Z00.00 [facility] [address] [place] [id number] [address] September, Hypogonadism in male E29.1 [facility] [address] [place] [address] Aug, Other chronic pain G89.29 ; Memory loss R41.3 ; Controlled type 2 diabetes mellitus without complication, without long-term current use of insulin E11.9 and Chronic major depressive disorder, recurrent episode F33.9 [facility] [address] [address] Aug, Medicare welcome exam Z00.00 [facility] [address]100[place] [address] Aug, [facility] [id number] [place] [address] Aug, Hypogonadism in male E29.1 [facility] [address]100[place] [address] Jul, [facility] [address] [place] [id number] [place] [address] Jul, Hypogonadism in male E29.1 [facility] [address] [place] [id number] [place] [address] Jul, [facility] [address] [place] [id number] [place] [address] Jul, Hypogonadism in male E29.1 [facility] [address] [place] [id number] [place] [address] 09 Jul, 2017 Medicare welcome exam Z00.00 [facility] [address] [place] [id number] [place] [address] Jun, Medicare welcome exam Z00.00 [facility] [address] [place] [id number] [place] [address] Jun, Fever R50.9 and Influenza B J10.1 [facility] [address] [place] [id number] [place] [address] Jun, Hypogonadism in male E29.1 [facility] [address] [place] [id number] [place] [address] Jun, Diabetes type 2, controlled E11.9 [facility] [address] [place] [id number] [place] [address] May, Hypogonadism in male E29.1 [facility] [address] [place] [id number] [place] [address] May, prison (current) use of anticoagulants Z79.01 [facility] [address] [address] Apr, Hypogonadism in male E29.1 [facility] [address] [place] [id number] [place] [address] Apr, [facility] [address] [address] Apr, Medicare welcome exam Z00.00 and prison (current) use of anticoagulants Z79.01 [place] [address] [place] [id number] [place] [address] Apr, Hypogonadism in male E29.1 [facility] [address] [place] [id number] [place] [address] Mar, Diabetes type 2, controlled E11.9 [facility] [address] [place] [id number] [place] [address] Mar, Hypogonadism in male E29.1 [place] [address] [place] [id number] [place] [address] Mar, Hypogonadism in male E29.1 [place] [address] [place] [id number] [place] [address] Feb, Hypogonadism in male E29.1 [facility] [address] [place] [id number] [place] [address] Feb, Malaise R53.81 [place] [address] [place] [id number] [place] [address] Feb, [facility] [address] [place] [id number] [place] [address] Feb, Diabetes type 2, controlled E11.9 [facility] [address] [place] [id number] [place] [address] Feb, Chronic fatigue R53.82 ; Malaise R53.81 and Moderate episode of recurrent major depressive disorder F33.1 [facility] [address] [place] [address] Jan, Diabetes type 2, controlled E11.9 [facility] [address] [address] Jan, 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.01 and 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 [facility] [address] [place] [id number] [place] [address] Dec, Diabetes type 2, controlled E11.9 and Hypertriglyceridemia E78.1 [facility] [address] [place] [id number] [place] [address] Dec, Diabetes type 2, controlled E11.9 [facility] [address] [place] [id number] [place] [address] Dec, High risk medication use Z79.899 and 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 [place] [address] [place] [id number] [place] [address] Dec, High risk medication use Z79.899 [place] [address] [place] [id number] [place] [address] Nov, Diabetes type 2, controlled E11.9 [facility] [address] [place] [id number] [place] [address] Oct, Diabetes type 2, controlled E11.9 [facility] [address] [place] [id number] [place] [address] September, Diabetes type 2, controlled E11.9 [place] [address] [place] [id number] [place] [address] Aug, 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 [facility] [address] [place] [id number] [place] [address] Aug, Hematoma of arm, right, initial encounter S40.021A and 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 [facility] [address] [place] [id number] [place] [address] Aug, [facility] [address] [place] [id number] [place] [address] Aug, Cellulitis of right upper extremity L03.113 [facility] [address] [address] Aug, Diabetes type 2, controlled E11.9 [facility] [address] [place] [id number] [place] [address] Aug, Hammertoe of right foot M20.41 ; Hallux abducto valgus, left M20.12 and Onychomycosis B35.1 [place] [address] [place] [id number] [place] [address] Aug, 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 [facility] [address] [place] [id number] [place] [address] Aug, 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 [place] [address] [address] Aug, 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 [facility] [address] [place] [id number] [place] [address] Aug, Right shoulder pain M25.511 and Closed nondisplaced fracture of acromial end of right clavicle, initial encounter S42.034A [place] [address] [address] Jul, Diabetes type 2, controlled E11.9 [place] [address] [place] [id number] [place] [address] Jun, Diabetes type 2, controlled E11.9 and prison (current) use of anticoagulants Z79.01 [place] [address] [place] [id number] [place] [address] May, [place] [address] [place] [id number] [place] [address] Apr, [place] [address] [place] [id number] [place] [address] Mar, [place] [address] [place] [id number] [place] [address] Feb, [place] [address] [address] Dec, Diabetes type 2, controlled E11.9 [facility] [address] [address] Dec, [facility] [address] [address] Nov, [facility] [address] [address] Nov, Type 2 diabetes mellitus without complications E11.9 [facility] [address] [address] Oct, Type 2 diabetes mellitus without complications E11.9 [facility] [address] [address] Aug, [facility] [address] [place] [id number] [address] Aug, Type 2 diabetes mellitus without complications E11.9 [facility] [address] [address] Jun, Type 2 diabetes mellitus without complications E11.9 and 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 Z79.02 [facility] [address] [address] May, [facility] [address] [address] May, Diabetes type 2, controlled E11.9 [facility] [address] [address] Apr, Diabetes type 2, controlled E11.9 [facility] [address] [address] Mar, Diabetes type 2, controlled E11.9 ; Knee pain, right M25.561 ; Other chronic pain G89.29 and Medication monitoring encounter Z51.81 [facility] [address] [place] [address] Feb, Type 2 diabetes mellitus without complications E11.9 ; High risk medication use Z79.899 and Anxiety F41.9 [facility] [address] [address] Jan, Diabetes 250.00 [facility] [address] [place] [id number] [place] [address] Dec, Diabetes 250.00 [facility] [address] [place] [id number] [place] [address] Nov, Diabetes 250.00 [facility] [address] [place] [id number] [place] [address] Nov, [facility] [address] [place] [id number] [place] [address] Oct, Diabetes mellitus type 1 250.01 and High risk medication use V58.69 [facility] [id number] [address] Oct, [facility] [id number] [place] [address] September, [facility] [address] [place] [address] Aug, [facility] [address] [address] Aug, [facility] [address] [address] Jul, [facility] [address] [address] Jul, [facility] [address] [place] [address] Jun, [facility] [address] [address] Jun, [facility] [address] [place] [id number] [place] [address] Jun, [facility] [address] [id number] [place] [address] May, [facility] [place] [facility] [address] [id number] [place] [address] May, [facility] [address] [id number] [place] [address] Apr, [facility] [place] [facility] [address] [id number] [place] [address] Apr, [facility] [place] [facility] [address] [id number] [place] [address] Apr, [facility] [place] [facility] [address] [id number] [place] [address] Apr, [facility] [address] [id number] [place] [address] Apr, [facility] [place] [facility] [address] [id number] [place] [address] Apr, [facility] [place] [facility] [address] [id number] [place] [address] Feb, [facility] [place] [facility] [address] [id number] [place] [address] Feb, [facility] [place] [facility] [address] [id number] [place] [address] Feb, [facility] [place] [facility] [address] [id number] [place] [address] Feb, [facility] [place] [facility] [address] [id number] [place] [address] Dec, [facility] [place] [facility] [address] [id number] [place] [address] Dec, [facility] [place] [facility] [address] [id number] [place] [address] Nov, [facility] [place] [facility] [address] [id number] [place] [address] Nov, [facility] [place] [facility] [address] [id number] [place] [address] Oct, [facility] [place] [facility] [address] [id number] [place] [address] Oct, [facility] [place] [facility] [address] [id number] [place] [address] Oct, [facility] [place] [facility] [address] [id number] [place] [address] Oct, [facility] [place] [facility] [address] [id number] [place] [address] Oct, [facility] [place] [facility] [address] [id number] [place] [address] Oct, [facility] [place] [facility] [address] [id number] [place] [address] September, [facility] [place] [facility] [address] [id number] [place] [address] September, [facility] [place] [facility] [address] [id number] [place] [address] September, [facility] [place] [facility] [address] [id number] [place] [address] September, [facility] [place] [facility] [address] [id number] [place] [address] September, [facility] [place] [facility] [address] [id number] [place] [address] September, [facility] [place] [facility] [address] [id number] [place] [address] Aug, [facility] [place] [facility] [address] [id number] [place] [address] Aug, [facility] [place] [facility] [address] [id number] [place] [address] Aug, [facility] [place] [facility] [address] [id number] [place] [address] Aug, [facility] [place] [facility] [address] [id number] [place] [address] Aug, [facility] [place] [facility] [address] [id number] [place] [address] Aug, [facility] [place] [facility] [address] [id number] [place] [address] Jul, [facility] [place] [facility] [address] [id number] [place] [address] Jul, [facility] [place] [facility] [address] [id number] [place] [address] Jul, [facility] [place] [facility] [address] [id number] [place] [address] Jul, [facility] [place] [facility] [address] [id number] [place] [address] May, [facility] [place] [facility] [address] [id number] [place] [address] May, [facility] [place] [facility] [address] [id number] [place] [address] Apr, [facility] [place] [facility] [address] [id number] [place] [address] Apr, [facility] [place] [facility] [address] [id number] [place] [address] Apr, [facility] [place] [facility] [address] [id number] [place] [address] Apr, [facility] [place] [facility] [address] [id number] [place] [address] Apr, [facility] [place] [facility] [address] [id number] [place] [address] Apr, [facility] [place] [facility] [address] [id number] [place] [address] Feb, 2012 [facility] [address] [id number] [place] [address] Feb, [facility] [place] [facility] [address] [id number] [place] [address] Feb, 2012 [facility] [place] [facility] [address] [id number] [place] [address] Feb, 2012 [facility] [place] [facility] [address] [id number] [place] [address] Feb, [facility] [place] [facility] [address] [id number] [place] [address] Feb, [facility] [place] [facility] [address] [id number] [place] [address] Feb, [facility] [place] [facility] [address] [id number] [place] [address] Feb, [facility] [place] [facility] [address] [id number] [place] [address] Jan, [facility] [place] [facility] [address] [id number] [place] [address] Jan, [facility] [place] [facility] [address] [id number] [place] [address] Jan, [facility] [place] [facility] [address] [id number] [place] [address] Jan, [facility] [place] [facility] [address] [id number] [place] [address] Dec, [facility] [place] [facility] [address] [address] [id number] [place] [address] Dec, [facility] [place] [facility] [address] [id number] [place] [address] Dec, [facility] [place] [facility] [address] [id number] [place] [address] Nov, [facility] [address] [id number] [place] [address] Nov, [facility] [place] [facility] [address] [id number] [place] [address] Oct, [facility] [place] [facility] [address] [id number] [place] [address] September, [facility] [place] [facility] [address] [id number] [place] [address] September, [facility] [address] [id number] [place] [address] September, [facility] [place] [facility] [address] [id number] [place] [address] Aug, [facility] [place] [facility] [address] [id number] [place] [address] 16 Aug, 2012 [facility] [place] [facility] [address] [id number] [place] [address] 15 Aug, 2012 [facility] [place] [facility] [address] [id number] [place] [address] Jul, [facility] [place] [facility] [address] [id number] [place] [address] Jul, [facility] [place] [facility] [address] [id number] [place] [address] Jun, [facility] [place] [facility] [address] [id number] [address] Jun, [facility] [place] [facility] [address] [id number] [place] [address] Jun, [facility] [place] [facility] [address] [id number] [place] [address] Jun, [facility] [place] [facility] [address] [id number] [place] [address] May, [facility] [place] [facility] [address] [id number] [place] [address] 07 May, 2012 [facility] [address] [id number] [place] [address] Apr, [facility] [place] [facility] [address] [id number] [place] [address] Apr, [facility] [address] [id number] [place] [address] Apr, [facility] [place] [facility] [address] [id number] [place] [address] Apr, [facility] [address] [id number] [place] [address] Apr, [facility] [address] [id number] [place] [address] Apr, [facility] [address] [id number] [place] [address] Mar, [facility] [address] [id number] [place] [address] Mar, [facility] [place] [facility] [address] [id number] [place] [address] Mar, [facility] [address] [facility] [id number] [place] [address] Mar, [facility] [place] [facility] [address] [id number] [place] [address] Mar, [facility] [place] [facility] [address] [id number] [place] [address] Mar, [facility] [place] [facility] [address] [id number] [place] [address] Feb, [facility] [place] [facility] [address] [id number] [place] [address] Feb, [facility] [place] [facility] [address] [id number] [place] [address] Feb, [facility] [place] [facility] [address] [id number] [place] [address] Feb, [facility] [place] [facility] [address] [id number] [place] [address] Feb, [facility] [place] [facility] [address] [id number] [place] [address] Jan, [facility] [place] [facility] [address] [id number] [place] [address] Jan, [facility] [place] [facility] [address] [id number] [place] [address] Jan, [facility] [place] [facility] [address] [id number] [place] [address] Dec, [facility] [place] [facility] [address] [id number] [place] [address] Dec, [facility] [place] [facility] [address] [id number] [place] [address] Nov, [facility] [place] [facility] [address] [id number] [place] [address] Oct, [facility] [place] [facility] [address] [id number] [place] [address] Oct, [facility] [place] [facility] [address] [id number] [place] [address] Oct, [facility] [place] [facility] [address] [id number], [place] [address] Oct, [facility] [place] [facility] [address] [id number] [place] [address] Oct, [facility] [place] [facility] [address] [id number] [place] [address] September, [facility] [place] [facility] [address] [id number] [place] [address] Aug, [facility] [place] [facility] [address] [id number], [place] [address] 18 Aug, 2011 [facility] [address] [id number] [place] [address] 17 Aug, 2011 [facility] [place] [facility] [address] [id number] [place] [address] 16 Aug, 2011 [facility] [place] [facility] [address] [id number] [place] [address] 13 Aug, 2011 [facility] [place] [facility] [address] [id number] [place] [address] 11 Aug, 2011 [facility] [place] [facility] [address] [id number] [place] [address] 11 Aug, 2011 [facility] [place] [facility] [address] [id number] [place] [address] 05 Aug, 2011 [facility] [address] [facility] [id number] [place] [address] 05 Aug, 2011 [facility] [place] [facility] [address] [facility] [id number] [place] [address] 20 Jul, 2011 [facility] [place] [facility] [address] [id number] [place] [address] Jul, [facility] [place] [facility] [address] [facility] [id number] [place] [address] 20 Jul, 2011 [facility] [place] [facility] [address] [id number] [place] [address] 17 Jul, 2011 [facility] [place] [facility] [address] [facility] [id number] [place] [address] 08 Jul, 2011 [facility] [place] [facility] [address] [id number] [place] [address] 15 Jun, 2011 [facility] [place] [facility] [address] [id number] [place] [address] 14 Jun, 2011 [facility] [place] [facility] [address] [facility] [id number] [place] [address] 08 Jun, 2011 [facility] [place] [facility] [address] [id number] [place] [address] 08 Jun, 2011 [facility] [address] [id number] [place] [address] May, [facility] [address] [id number] [place] [address] May, [facility] [address] [id number] [place] [address] May, [facility] [address] [id number] [place] [address] May, [facility] [address] [id number] [place] [address] May, [facility] [address] [id number] [place] [address] May, [facility] [address] [id number] [place] [address] May, [facility] [address] [id number] [place] [address] Apr, [facility] [address] [id number] [place] [address] Apr, [facility] [address] [id number] [place] [address] 13 Apr, 2011 [facility] [address] [id number] [place] [address] Apr, [facility] [place] [facility] [address] [id number] [place] [address] 13 Apr, 2011 [facility] [place] [facility] [address] [id number] [place] [address] Apr, [facility] [place] [facility] [address] [id number] [place] [address] 13 Apr, 2011 [facility] [place] [facility] [address] [id number] [place] [address] Apr, [facility] [place] [facility] [address] [id number] [place] [address] Apr, [facility] [place] [facility] [address] [id number] [place] [address] Apr, [facility] [place] [facility] [address] [facility] [id number] [place] [address] Mar, [facility] [place] [facility] [address] [id number] [place] [address] Mar, [facility] [place] [facility] [address] [id number] [place] [address] Feb, [facility] [place] [facility] [address] [id number] [place] [address] Jun, [facility] [place] [facility] [address] [id number] [place] [address] Apr, [facility] [place] [facility] [address] [id number], [place] [address] Feb, [facility] [place] [facility] [address] [id number], [place] [address] Feb, [facility] [place] [facility] [address] [id number], [place] [address] Feb, [facility] [place] [facility] [address] [id number], [place] [address] Apr, [facility] [place] [facility] [address] [id number], [place] [address] Apr, [facility] [place] [facility] [address] [id number] [place] [address] Mar, [facility] [place] [facility] [address] [facility] [id number], [place] [address] Mar, [facility] [place] [facility] [address] [facility] [id number], [place] [address] Mar, [facility] [place] [facility] [address] [facility] [id number] [place] [address] Feb, [facility] [address] [facility] [id number] [place] [address] Feb, [facility] [address] [facility] [id number] [place] [address] Feb, [facility] [address] [facility] [id number] [place] [address] Jan, IMMUNIZATIONS No Known Immunizations SOCIAL HISTORY Never Assessed REASON FOR VISIT EMR-[facility] PLAN OF CARE VITAL SIGNS [...]
--- OUTSIDE RECORDS SUMMARY | 2018-11-02 20:59 | XMS REPORT ---
Author Author Migration, Doctor Organization [facility] Address Unknown Phone Unavailable Care Team Providers Care Impregnator And Drier Helper Name Role Phone Migration, Doctor Unavailable Unavailable PROBLEMS Type Condition ICD9-CM Code ORN04-NH Code Onset Dates Condition Status SNOMED Code Problem Hypogonadism in male E29.1 Active 15698494 Problem Diabetes type 2, controlled E11.9 Active 34434604 Problem Knee pain, right M25.561 Active 05678475 Problem Hammertoe of right foot M20.41 Active 073986194 Problem Type 2 diabetes mellitus without complications E11.9 Active 091275873 Problem Moderate episode of recurrent major depressive disorder F33.1 Active 673803653 Problem Hypertriglyceridemia E78.1 Active 355293129 Problem Controlled type 2 diabetes mellitus without complication, without long- term current use of insulin E11.9 Active 523494687 Problem Chronic major depressive disorder, recurrent episode F33.9 Active 78612957 Problem Memory loss R41.3 Active 759378884 Problem Anxiety state, unspecified F41.1 Active 976052539 Problem 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.01 Active 1559666 Problem Mild neurocognitive disorder G31.84 Active 122130463 Problem Chronic fatigue R53.82 Active 52418156 Problem Other chronic pain G89.29 Active 34145801 Problem Anxiety F41.9 Active 37237880 Problem FCI 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 Active 658566776 Problem Dementia with behavioral disturbance, unspecified dementia type F03.91 Active [id number] ALLERGIES No Information ENCOUNTERS Encounter Location Date Diagnosis [facility] [address] [facility] [id number] [address] Jun, Controlled type 2 diabetes mellitus without complication, without long-term current use of insulin E11.9 and Type 2 diabetes mellitus without complications E11.9 [facility] [address] [facility] [id number] [address] May, Type 2 diabetes mellitus without complications E11.9 ; 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 and Hypogonadism in male E29.1 [place] [id number] [place] [address] May, Neurocognitive disorder R41.9 and Anxiety F41.9 [place] [address] [place] [id number] [place] [address] May, Controlled type 2 diabetes mellitus without complication, without long-term current use of insulin E11.9 and Type 2 diabetes mellitus without complications E11.9 [place] [address] [place] [id number] [place] [address] Apr, Dysuria R30.0 and Dementia with behavioral disturbance, unspecified dementia type F03.91 [place] [address] [place] [id number] [place] [address] Apr, [place] [address] [place] [id number] [place] [address] Apr, [place] [address] [place] [id number] [place] [address] Apr, Medicare welcome exam Z00.00 [place] [address] [place] [id number] [place] [address] 17 Apr, 2018 Type 2 diabetes mellitus without complications E11.9 and Controlled type 2 diabetes mellitus without complication, without long-term current use of insulin E11.9 [place] [address] [address] Apr, Medicare welcome exam Z00.00 [place] [id number] [place] [address] Apr, [place] [address] [place] [id number] [place] [address] Apr, [place] [address] [place] [id number] [place] [address] Mar, Dementia with behavioral disturbance, unspecified dementia type F03.91 [place] [address] [place] [id number] [place] [address] Mar, Mild neurocognitive disorder G31.84 and Anxiety state, unspecified F41.1 [facility] [address] [place] [id number] [place] [address] Mar, FCI 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 [place] [address] [place] [id number] [place] [address] Mar, Type 2 diabetes mellitus without complications E11.9 and Controlled type 2 diabetes mellitus without complication, without long-term current use of insulin E11.9 [facility] [address] [place] [id number] [place] [address] Mar, FCI (current) use of anticoagulants Z79.01 [place] [address] [place] [id number] [place] [address] Mar, Mild neurocognitive disorder G31.84 and Anxiety state, unspecified F41.1 [place] [address] [place] [id number] [place] [address] Mar, Anxiety state, unspecified F41.1 and Other signs and symptoms involving cognition R41.89 [place] [address] [place] [id number] [place] [address] Mar, [place] [address] [place] [id number] [place] [address] Feb, Controlled type 2 diabetes mellitus without complication, without long-term current use of insulin E11.9 ; Anxiety F41.9 ; Diabetes type 2, controlled E11.9 and 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9 [facility] [address] [facility] [id number], [place] [address] Jan, Hypogonadism in male E29.1 [facility] [address] [facility] [id number] [place] [address] Jan, [facility] [address] [facility] [id number], [place] [address] Dec, Hypogonadism in male E29.1 [facility] [address] [facility] [id number] [place] [address] Dec, Medicare welcome exam Z00.00 [facility] [address] [facility] [id number], [place] [address] Dec, Hypogonadism in male E29.1 [facility] [address] [facility] [id number], [place] [address] Dec, [facility] [address] [facility] [id number], [place] [address] Nov, Hypogonadism in male E29.1 [facility] [address] [facility] [id number], [place] [address] Nov, Type 2 diabetes mellitus without complications E11.9 and History of Coumadin therapy Z92.29 [facility] [address] [facility] [id number], [place] [address] Nov, Medicare welcome exam Z00.00 [facility] [address] [facility] [id number], [place] [address] Nov, Type 2 diabetes mellitus without complications E11.9 ; History of Coumadin therapy Z92.29 and Hypogonadism in male E29.1 [facility] [address] [facility] [id number], [place] [address] Nov, [facility] [address] [facility] [id number], [place] [address] Oct, [facility] [address], [place] [address] Oct, Diabetes type 2, controlled E11.9 [facility] [address] [address] 15 Oct, 2017 Medicare welcome exam Z00.00 [facility] [id number] [place] [address] Oct, Hypogonadism in male E29.1 [facility] [address] [address] Oct, [facility] [address] [place] [id number] [place] [address] September, Hypogonadism in male E29.1 [facility] [address] [place] [id number] [place] [address] September, Medicare welcome exam Z00.00 [facility] [address] [id number] [address] September, Hypogonadism in male E29.1 [facility] [address] [place] [address] Aug, Other chronic pain G89.29 ; Memory loss R41.3 ; Controlled type 2 diabetes mellitus without complication, without long-term current use of insulin E11.9 and Chronic major depressive disorder, recurrent episode F33.9 [facility] [address] [address] Aug, Medicare welcome exam Z00.00 [facility] [address], [place] [address] Aug, [facility] [id number] [place] [address] Aug, Hypogonadism in male E29.1 [facility] [address] [address] Jul, [facility] [address] [place] [id number] [place] [address] Jul, Hypogonadism in male E29.1 [facility] [address] [place] [id number] [place] [address] Jul, [facility] [address] [place] [id number] [place] [address] Jul, Hypogonadism in male E29.1 [facility] [address] [place] [id number] [place] [address] 09 Jul, 2017 Medicare welcome exam Z00.00 [facility] [address] [place] [id number] [place] [address] Jun, Medicare welcome exam Z00.00 [facility] [address] [place] [id number] [place] [address] Jun, Fever R50.9 and Influenza B J10.1 [facility] [address] [place] [id number] [place] [address] Jun, Hypogonadism in male E29.1 [facility] [address] [place] [id number] [place] [address] Jun, Diabetes type 2, controlled E11.9 [facility] [address] [place] [id number] [place] [address] May, Hypogonadism in male E29.1 [facility] [address] [place] [id number] [place] [address] May, FCI (current) use of anticoagulants Z79.01 [facility] [address] [address] Apr, Hypogonadism in male E29.1 [facility] [address] [place] [id number] [place] [address] Apr, [facility] [address] [address] Apr, Medicare welcome exam Z00.00 and FCI (current) use of anticoagulants Z79.01 [place] [address] [place] [id number] [place] [address] Apr, Hypogonadism in male E29.1 [facility] [address] [place] [id number] [place] [address] Mar, Diabetes type 2, controlled E11.9 [facility] [address] [place] [id number] [place] [address] Mar, Hypogonadism in male E29.1 [place] [address] [place] [id number] [place] [address] Mar, Hypogonadism in male E29.1 [place] [address] [place] [id number] [place] [address] Feb, Hypogonadism in male E29.1 [facility] [address] [place] [id number] [place] [address] Feb, Malaise R53.81 [place] [address] [place] [id number] [place] [address] Feb, [facility] [address] [place] [id number] [place] [address] Feb, Diabetes type 2, controlled E11.9 [facility] [address] [place] [id number] [place] [address] Feb, Chronic fatigue R53.82 ; Malaise R53.81 and Moderate episode of recurrent major depressive disorder F33.1 [facility] [address] [place] [address] Jan, Diabetes type 2, controlled E11.9 [facility] [address], [place] [address] Jan, 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.01 and 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 [facility] [address] [place] [id number] [place] [address] Dec, Diabetes type 2, controlled E11.9 and Hypertriglyceridemia E78.1 [facility] [address] [place] [id number] [place] [address] Dec, Diabetes type 2, controlled E11.9 [facility] [address] [place] [id number] [place] [address] Dec, High risk medication use Z79.899 and 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 [place] [address] [place] [id number] [place] [address] Dec, High risk medication use Z79.899 [place] [address] [place] [id number] [place] [address] Nov, Diabetes type 2, controlled E11.9 [facility] [address] [place] [id number] [place] [address] Oct, Diabetes type 2, controlled E11.9 [facility] [address] [place] [id number] [place] [address] September, Diabetes type 2, controlled E11.9 [place] [address] [place] [id number] [place] [address] Aug, 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 [facility] [address] [place] [id number] [place] [address] Aug, Hematoma of arm, right, initial encounter S40.021A and 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 [facility] [address] [place] [id number] [place] [address] Aug, [facility] [address] [place] [id number] [place] [address] Aug, Cellulitis of right upper extremity L03.113 [facility] [address] [address] Aug, Diabetes type 2, controlled E11.9 [facility] [address] [place] [id number] [place] [address] Aug, Hammertoe of right foot M20.41 ; Hallux abducto valgus, left M20.12 and Onychomycosis B35.1 [place] [address] [place] [id number] [place] [address] Aug, 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 [facility] [address] [place] [id number] [place] [address] Aug, 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 [place] [address] [address] Aug, 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 [facility] [address] [place] [id number] [place] [address] Aug, Right shoulder pain M25.511 and Closed nondisplaced fracture of acromial end of right clavicle, initial encounter S42.034A [place] [address] [address] Jul, Diabetes type 2, controlled E11.9 [place] [address] [place] [id number] [place] [address] Jun, Diabetes type 2, controlled E11.9 and FCI (current) use of anticoagulants Z79.01 [place] [address] [place] [id number] [place] [address] May, [place] [address] [place] [id number] [place] [address] Apr, [place] [address] [place] [id number] [place] [address] Mar, [place] [address] [place] [id number] [place] [address] Feb, [place] [address], [place] [address] Dec, Diabetes type 2, controlled E11.9 [facility] [address], [place] [address] Dec, [facility] [address], [place] [address] Nov, [facility] [address], [place] [address] Nov, Type 2 diabetes mellitus without complications E11.9 [facility] [address], [place] [address] Oct, Type 2 diabetes mellitus without complications E11.9 [facility] [address], [place] [address] Aug, [facility] [address] [place] [id number] [address] Aug, Type 2 diabetes mellitus without complications E11.9 [facility] [address], [place] [address] Jun, Type 2 diabetes mellitus without complications E11.9 and 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 use of antiplatelet drug Z79.02 [facility] [address], [place] [address] May, [facility] [address], [place] [address] May, Diabetes type 2, controlled E11.9 [facility] [address], [place] [address] Apr, Diabetes type 2, controlled E11.9 [facility] [address], [place] [address] Mar, Diabetes type 2, controlled E11.9 ; Knee pain, right M25.561 ; Other chronic pain G89.29 and Medication monitoring encounter Z51.81 [facility] [address] [place] [id number] [address] Feb, Type 2 diabetes mellitus without complications E11.9 ; High risk medication use Z79.899 and Anxiety F41.9 [facility] [address] [id number] [address] Jan, Diabetes 250.00 [facility] [address] [place] [id number] [place] [address] Dec, Diabetes 250.00 [facility] [address] [place] [id number] [place] [address] Nov, Diabetes 250.00 [facility] [address] [place] [id number] [place] [address] Nov, [facility] [address] [place] [id number] [place] [address] Oct, Diabetes mellitus type 1 250.01 and High risk medication use V58.69 [facility] [address] [id number] [address] Oct, [facility] [address] [place] [id number] [place] [address] September, [facility] [id number] [place] [address] Aug, [facility] [address], [place] [address] Aug, [facility] [address], [place] [address] Jul, [facility] [address], [place] [address] Jul, [facility] [address] [place] [address] Jun, [facility] [address], [place] [address] Jun, [facility] [address] [place] [address] [place] [address] Jun, [facility] [address] [id number] [place] [address] May, [facility] [place] [facility] [address] [id number] [place] [address] May, [facility] [address] [id number] [place] [address] Apr, [facility] [place] [facility] [address] [id number] [place] [address] Apr, [facility] [place] [facility] [address] [id number] [place] [address] Apr, [facility] [place] [facility] [address] [id number] [place] [address] Apr, [facility] [address] [id number] [place] [address] Apr, [facility] [place] [facility] [address] [id number] [place] [address] Apr, [facility] [place] [facility] [address] [id number] [place] [address] Feb, [facility] [place] [facility] [address] [id number] [place] [address] Feb, [facility] [place] [facility] [address] [id number] [place] [address] Feb, [facility] [place] [facility] [address] [id number] [place] [address] Feb, [facility] [place] [facility] [address] [id number] [place] [address] Dec, [facility] [place] [facility] [address] [id number] [place] [address] Dec, [facility] [place] [facility] [address] [id number] [place] [address] Nov, [facility] [place] [facility] [address] [id number] [place] [address] Nov, [facility] [place] [facility] [address] [id number] [place] [address] Oct, [facility] [place] [facility] [address] [id number] [place] [address] Oct, [facility] [place] [facility] [address] [id number] [place] [address] Oct, [facility] [place] [facility] [address] [id number] [place] [address] Oct, [facility] [place] [facility] [address] [id number] [place] [address] Oct, [facility] [place] [facility] [address] [id number] [place] [address] Oct, [facility] [place] [facility] [address] [id number] [place] [address] September, [facility] [place] [facility] [address] [id number] [place] [address] September, [facility] [place] [facility] [address] [id number] [place] [address] September, [facility] [place] [facility] [address] [id number] [place] [address] September, [facility] [place] [facility] [address] [id number] [place] [address] September, [facility] [place] [facility] [address] [id number] [place] [address] September, [facility] [place] [facility] [address] [id number] [place] [address] Aug, [facility] [place] [facility] [address] [id number] [place] [address] Aug, [facility] [place] [facility] [address] [id number] [place] [address] Aug, [facility] [place] [facility] [address] [id number] [place] [address] Aug, [facility] [place] [facility] [address] [id number] [place] [address] Aug, [facility] [place] [facility] [address] [id number] [place] [address] Aug, [facility] [place] [facility] [address] [id number] [place] [address] Jul, [facility] [place] [facility] [address] [id number] [place] [address] Jul, [facility] [place] [facility] [address] [id number] [place] [address] Jul, [facility] [place] [facility] [address] [id number] [place] [address] Jul, [facility] [place] [facility] [address] [id number] [place] [address] May, [facility] [place] [facility] [address] [id number] [place] [address] May, [facility] [place] [facility] [address] [id number] [place] [address] Apr, [facility] [place] [facility] [address] [id number] [place] [address] Apr, [facility] [place] [facility] [address] [id number] [place] [address] Apr, [facility] [place] [facility] [address] [id number] [place] [address] Apr, [facility] [place] [facility] [address] [id number] [place] [address] Apr, [facility] [place] [facility] [address] [id number] [place] [address] Apr, [facility] [place] [facility] [address] [id number] [place] [address] Feb, 2012 [facility] [address] [id number] [place] [address] Feb, [facility] [place] [facility] [address] [id number] [place] [address] Feb, 2012 [facility] [place] [facility] [address] [id number] [place] [address] Feb, 2012 [facility] [place] [facility] [address] [id number] [place] [address] Feb, [facility] [place] [facility] [address] [id number] [place] [address] Feb, [facility] [place] [facility] [address] [id number] [place] [address] Feb, [facility] [place] [facility] [address] [id number] [place] [address] Feb, [facility] [place] [facility] [address] [id number] [place] [address] Jan, [facility] [place] [facility] [address] [id number] [place] [address] Jan, [facility] [place] [facility] [address] [id number] [place] [address] Jan, [facility] [place] [facility] [address] [id number] [place] [address] Jan, [facility] [place] [facility] [address] [id number] [place] [address] Dec, [facility] [place] [facility] [address] [id number] [place] [address] Dec, [facility] [place] [facility] [address] [id number] [place] [address] Dec, [facility] [place] [facility] [address] [id number] [place] [address] Nov, [facility] [address] [id number] [place] [address] Nov, [facility] [place] [facility] [address] [id number] [place] [address] Oct, [facility] [place] [facility] [address] [id number] [place] [address] September, [facility] [place] [facility] [address] [id number] [place] [address] September, [facility] [address] [id number] [place] [address] September, [facility] [place] [facility] [address] [id number] [place] [address] Aug, [facility] [place] [facility] [address] [id number] [place] [address] 16 Aug, 2012 [facility] [place] [facility] [address] [id number] [place] [address] 15 Aug, 2012 [facility] [place] [facility] [address] [id number] [place] [address] Jul, [facility] [place] [facility] [address] [id number] [place] [address] Jul, [facility] [place] [facility] [address] [id number] [place] [address] Jun, [facility] [place] [facility] [address] [id number], [place] [address] Jun, [facility] [place] [facility] [address] [id number] [place] [address] Jun, [facility] [place] [facility] [address] [id number] [place] [address] Jun, [facility] [place] [facility] [address] [id number] [place] [address] May, [facility] [place] [facility] [address] [id number] [place] [address] 07 May, 2012 [facility] [address] [id number] [place] [address] Apr, [facility] [place] [facility] [address] [id number] [place] [address] Apr, [facility] [address] [id number] [place] [address] Apr, [facility] [place] [facility] [address] [id number] [place] [address] Apr, [facility] [address] [id number] [place] [address] Apr, [facility] [address] [id number] [place] [address] Apr, [facility] [address] [id number] [place] [address] Mar, [facility] [address] [id number] [place] [address] Mar, [facility] [place] [facility] [address] [id number] [place] [address] Mar, [facility] [address] [facility] [id number] [place] [address] Mar, [facility] [place] [facility] [address] [id number] [place] [address] Mar, [facility] [place] [facility] [address] [id number] [place] [address] Mar, [facility] [place] [facility] [address] [id number] [place] [address] Feb, [facility] [place] [facility] [address] [id number] [place] [address] Feb, [facility] [place] [facility] [address] [id number] [place] [address] Feb, [facility] [place] [facility] [address] [id number] [place] [address] Feb, [facility] [place] [facility] [address] [id number] [place] [address] Feb, [facility] [place] [facility] [address] [id number] [place] [address] Jan, [facility] [place] [facility] [address] [id number] [place] [address] Jan, [facility] [place] [facility] [address] [id number] [place] [address] Jan, [facility] [place] [facility] [address] [id number] [place] [address] Dec, [facility] [place] [facility] [address] [id number] [place] [address] Dec, [facility] [place] [facility] [address] [id number] [place] [address] Nov, [facility] [place] [facility] [address] [id number] [place] [address] Oct, [facility] [place] [facility] [address] [id number] [place] [address] Oct, [facility] [place] [facility] [address] [id number] [place] [address] Oct, [facility] [place] [facility] [address] [id number], [place] [address] Oct, [facility] [place] [facility] [address] [id number] [place] [address] Oct, [facility] [place] [facility] [address] [id number] [place] [address] September, [facility] [place] [facility] [address] [id number] [place] [address] Aug, [facility] [place] [facility] [address] [id number], [place] [address] 18 Aug, 2011 [facility] [address] [id number] [place] [address] 17 Aug, 2011 [facility] [place] [facility] [address] [id number] [place] [address] 16 Aug, 2011 [facility] [place] [facility] [address] [id number] [place] [address] 13 Aug, 2011 [facility] [place] [facility] [address] [id number] [place] [address] 11 Aug, 2011 [facility] [place] [facility] [address] [id number] [place] [address] 11 Aug, 2011 [facility] [place] [facility] [address] [id number] [place] [address] 05 Aug, 2011 [facility] [address] [facility] [id number] [place] [address] 05 Aug, 2011 [facility] [place] [facility] [address] [facility] [id number] [place] [address] 20 Jul, 2011 [facility] [place] [facility] [address] [id number] [place] [address] Jul, [facility] [place] [facility] [address] [facility] [id number] [place] [address] 20 Jul, 2011 [facility] [place] [facility] [address] [id number] [place] [address] 17 Jul, 2011 [facility] [place] [facility] [address] [facility] [id number] [place] [address] 08 Jul, 2011 [facility] [place] [facility] [address] [id number] [place] [address] 15 Jun, 2011 [facility] [place] [facility] [address] [id number] [place] [address] 14 Jun, 2011 [facility] [place] [facility] [address] [facility] [id number] [place] [address] 08 Jun, 2011 [facility] [place] [facility] [address] [id number] [place] [address] 08 Jun, 2011 [facility] [address] [id number] [place] [address] May, [facility] [address] [id number] [place] [address] May, [facility] [address] [id number] [place] [address] May, [facility] [address] [id number] [place] [address] May, [facility] [address] [id number] [place] [address] May, [facility] [address] [id number] [place] [address] May, [facility] [address] [id number] [place] [address] May, [facility] [address] [id number] [place] [address] Apr, [facility] [address] [id number] [place] [address] Apr, [facility] [address] [id number] [place] [address] 13 Apr, 2011 [facility] [address] [id number] [place] [address] Apr, [facility] [place] [facility] [address] [id number] [place] [address] 13 Apr, 2011 [facility] [place] [facility] [address] [id number] [place] [address] Apr, [facility] [place] [facility] [address] [id number] [place] [address] 13 Apr, 2011 [facility] [place] [facility] [address] [id number] [place] [address] Apr, [facility] [place] [facility] [address] [id number] [place] [address] Apr, [facility] [place] [facility] [address] [id number] [place] [address] Apr, [facility] [place] [facility] [address] [facility] [id number] [place] [address] Mar, [facility] [place] [facility] [address] [id number] [place] [address] Mar, [facility] [place] [facility] [address] [id number] [place] [address] Feb, [facility] [place] [facility] [address] [id number] [place] [address] Jun, [facility] [place] [facility] [address] [id number] [place] [address] Apr, [facility] [place] [facility] [address] [id number], [place] [address] Feb, [facility] [place] [facility] [address] [id number], [place] [address] Feb, [facility] [place] [facility] [address] [id number], [place] [address] Feb, [facility] [place] [facility] [address] [id number], [place] [address] Apr, [facility] [place] [facility] [address] [id number], [place] [address] Apr, [facility] [place] [facility] [address] [id number] [place] [address] Mar, [facility] [place] [facility] [address] [facility] [id number], [place] [address] Mar, [facility] [place] [facility] [address] [facility] [id number], [place] [address] Mar, [facility] [place] [facility] [address] [facility] [id number] [place] [address] Feb, [facility] [address] [facility] [id number] [place] [address] Feb, [facility] [address] [facility] [id number] [place] [address] Feb, [facility] [address] [facility] [id number] [place] [address] Jan, IMMUNIZATIONS No Known Immunizations SOCIAL HISTORY Never Assessed REASON FOR VISIT EMR-[facility] PLAN OF CARE VITAL SIGNS MEDICATIONS Unknown [...]
--- OUTSIDE RECORDS SUMMARY | 2018-11-02 21:00 | XMS REPORT ---
Author Author MARLEY MCGRATH Organization [facility] Address [address] [place] [address] Care Team Providers Care Director Of Elementary Education Name Role Phone MARLEY MCGRATH Unavailable PROBLEMS Type Condition ICD9-CM Code XVT59-MO Code Onset Dates Condition Status SNOMED Code Problem Controlled type 2 diabetes mellitus without complication, without long- term current use of insulin E11.9 Active 608242891 Problem Memory loss R41.3 Active 888853491 Problem Chronic major depressive disorder, recurrent episode F33.9 Active 55679811 Problem Mild neurocognitive disorder G31.84 Active 436129744 Problem Anxiety state, unspecified F41.1 Active 589964948 Problem Anxiety F41.9 Active 39056675 Problem Other chronic pain G89.29 Active 09523785 Problem Dementia with behavioral disturbance, unspecified dementia type F03.91 Active 4308242731213 Problem 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 Active 877018216 Problem Knee pain, right M25.561 Active 33884863 Problem Diabetes type 2, controlled E11.9 Active 04904096 Problem Hypogonadism in male E29.1 Active 89213545 Problem Hypertriglyceridemia E78.1 Active 466739194 Problem Moderate episode of recurrent major depressive disorder F33.1 Active 444349411 Problem Type 2 diabetes mellitus without complications E11.9 Active 043936675 Problem Chronic fatigue R53.82 Active 74862121 Problem Hammertoe of right foot M20.41 Active 865086011 Problem 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.01 Active [id number] ALLERGIES No Information ENCOUNTERS Encounter Location Date Diagnosis [facility] [id number], [place] [address] Apr, [facility] [address], [place] [address] Apr, [facility] [id number], [place] [address] Apr, Medicare welcome exam Z00.00 [facility] [address], [place] [address] 17 Apr, 2018 Type 2 diabetes mellitus without complications E11.9 and Controlled type 2 diabetes mellitus without complication, without long-term current use of insulin E11.9 [facility] [address], [place] [address] 10 Apr, 2018 Medicare welcome exam Z00.00 [facility] [id number] [place] [address] 04 Apr, 2018 [facility] [id number] [place] [address] Apr, [facility] [id number] [place] [address] Mar, Dementia with behavioral disturbance, unspecified dementia type F03.91 [facility] [id number] [place] [address] Mar, Mild neurocognitive disorder G31.84 and Anxiety state, unspecified F41.1 [facility] [address] [place] [address] Mar, longterm 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 [facility] [address], [place] [address] Mar, Type 2 diabetes mellitus without complications E11.9 and Controlled type 2 diabetes mellitus without complication, without long-term current use of insulin E11.9 [facility] [address], [place] [address] Mar, intermediate project manager (current) use of anticoagulants Z79.01 [facility] [id number], [place] [address] Mar, Mild neurocognitive disorder G31.84 and Anxiety state, unspecified F41.1 [facility] [address] [place] [address] 08 Mar, 2018 Anxiety state, unspecified F41.1 and Other signs and symptoms involving cognition R41.89 [facility] [address], [place] [address] Mar, [facility] [address], [place] [address] Feb, Controlled type 2 diabetes mellitus without complication, without long-term current use of insulin E11.9 ; Anxiety F41.9 ; Diabetes type 2, controlled E11.9 and 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 [facility] [address], [place] [address] 18 Feb, 2018 Medicare welcome exam Z00.00 and Type 2 diabetes mellitus without complications E11.9 [facility] [address], [place] [address] Jan, Hypogonadism in male E29.1 [facility] [address], [place] [address] Jan, Medicare welcome exam Z00.00 and Type 2 diabetes mellitus without complications E11.9 [facility] [address], [place] [address] Jan, Hypogonadism in male E29.1 [facility] [address], [place] [address] Jan, [facility] [address], [place] [address] Dec, Hypogonadism in male E29.1 [facility] [address], [place] [address] Dec, Medicare welcome exam Z00.00 [facility] [address], [place] [address] Dec, Hypogonadism in male E29.1 [facility] [address], [place] [address] Dec, [facility] [id number], [place] [address] 26 Nov, 2017 Hypogonadism in male E29.1 [facility] [address] [facility] [id number], [place] [address] 20 Nov, 2017 Type 2 diabetes mellitus without complications E11.9 and History of Coumadin therapy Z92.29 [facility] [address] [facility] [id number], [place] [address] 18 Nov, 2017 Medicare welcome exam Z00.00 [facility] [address] [facility] [id number], [place] [address] 12 Nov, 2017 Type 2 diabetes mellitus without complications E11.9 ; History of Coumadin therapy Z92.29 and Hypogonadism in male E29.1 [facility] [address] [facility] [id number], [place] [address] Nov, [facility] [id number], [place] [address] Oct, [facility] [address] [facility] [id number], [place] [address] Oct, Diabetes type 2, controlled E11.9 [facility] [address] [facility] [id number], [place] [address] 15 Oct, 2017 Medicare welcome exam Z00.00 [facility] [id number], [place] [address] Oct, Hypogonadism in male E29.1 [facility] IN [facility] [address] [facility] [id number], [place] [address] 09 Oct, 2017 [facility] [address] [facility] [id number], [place] [address] September, Hypogonadism in male E29.1 [facility] [address] [facility] [id number], [place] [address] September, Medicare welcome exam Z00.00 [facility] [address] [facility] [id number] [place] [address] September, Hypogonadism in male E29.1 [facility] [id number] [place] [address] Aug, Other chronic pain G89.29 ; Memory loss R41.3 ; Controlled type 2 diabetes mellitus without complication, without long-term current use of insulin E11.9 and Chronic major depressive disorder, recurrent episode F33.9 [facility] [id number] [place] [address] Aug, Medicare welcome exam Z00.00 [facility] [id number] [place] [address] Aug, [facility] [id number] [place] [address] Aug, Hypogonadism in male E29.1 [facility] [id number] [place] [address] Jul, [facility] [id number] [place] [address] Jul, Hypogonadism in male E29.1 [facility] [id number] [place] [address] Jul, [facility] [id number] [place] [address] Jul, Hypogonadism in male E29.1 [facility] [id number] [place] [address] Jul, Medicare welcome exam Z00.00 [facility] [id number] [place] [address] Jun, Medicare welcome exam Z00.00 [facility] [id number] [place] [address] Jun, Fever R50.9 and Influenza B J10.1 [facility] [id number] [place] [address] 13 Jun, 2017 Hypogonadism in male E29.1 [facility] [address], [place] [address] 09 Jun, 2017 Diabetes type 2, controlled E11.9 [facility] [address], [place] [address] May, Hypogonadism in male E29.1 [facility] [id number] [place] [address] May, intermediate project manager (current) use of anticoagulants Z79.01 [facility] [id number] [place] [address] Apr, Hypogonadism in male E29.1 [place] [address], [place] [address] Apr, [facility] [address], [place] [address] Apr, Medicare welcome exam Z00.00 and longterm (current) use of anticoagulants Z79.01 [facility] [address], [place] [address] Apr, Hypogonadism in male E29.1 [facility] [address], [place] [address] Mar, Diabetes type 2, controlled E11.9 [facility] [address], [place] [address] Mar, Hypogonadism in male E29.1 [facility] [address], [place] [address] Mar, Hypogonadism in male E29.1 [facility] [address], [place] [address] Feb, Hypogonadism in male E29.1 [facility] [address], [place] [address] Feb, Malaise R53.81 [facility] [address], [place] [address] Feb, [facility] [id number] [place] [address] Feb, Diabetes type 2, controlled E11.9 [place] [id number] [place] [address] Feb, Chronic fatigue R53.82 ; Malaise R53.81 and Moderate episode of recurrent major depressive disorder F33.1 [facility] [address] [place] [address] Jan, Diabetes type 2, controlled E11.9 [place] [address] [place] [address] Jan, 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.01 and intermediate project manager (current) use of anticoagulants Z79.01 [facility] [place] [id number] [place] [address] Dec, Diabetes type 2, controlled E11.9 and Hypertriglyceridemia E78.1 [facility] [place] [id number] [place] [address] Dec, Diabetes type 2, controlled E11.9 [place] [id number] [place] [address] Dec, High risk medication use Z79.899 and intermediate project manager (current) use of anticoagulants Z79.01 [place] [address] [place] [address] Dec, High risk medication use Z79.899 [place] [id number] [place] [address] Nov, Diabetes type 2, controlled E11.9 [facility] [id number] [place] [address] Oct, Diabetes type 2, controlled E11.9 [place] [id number] [place] [address] September, Diabetes type 2, controlled E11.9 [place] [id number] [place] [address] Aug, longterm (current) use of anticoagulants Z79.01 [place] [place] [id number] [place] [address] Aug, Hematoma of arm, right, initial encounter S40.021A and longterm (current) use of anticoagulants Z79.01 [place] [id number] [place] [address] Aug, [facility] [address] [address] Aug, Cellulitis of right upper extremity L03.113 [place] [address] [address] Aug, Diabetes type 2, controlled E11.9 [place] [id number] [place] [address] Aug, Hammertoe of right foot M20.41 ; Hallux abducto valgus, left M20.12 and Onychomycosis B35.1 [place] [id number] [place] [address] Aug, longterm (current) use of anticoagulants Z79.01 [place] [id number] [place] [address] Aug, longterm (current) use of anticoagulants Z79.01 [place] [address] [address] Aug, intermediate project manager (current) use of anticoagulants Z79.01 [facility] [id number] [place] [address] Aug, Right shoulder pain M25.511 and Closed nondisplaced fracture of acromial end of right clavicle, initial encounter S42.034A [facility] [address] [place] [address] Jul, Diabetes type 2, controlled E11.9 [facility] [address], [place] [address] Jun, Diabetes type 2, controlled E11.9 and intermediate project manager (current) use of anticoagulants Z79.01 [facility] [address], [place] [address] May, [facility] [address], [place] [address] Apr, [facility] [address], [place] [address] Mar, [facility] [address], [place] [address] Feb, [facility] [address], [place] [address] Dec, Diabetes type 2, controlled E11.9 [facility] [address] [place] [address] Dec, [facility] [address], [place] [address] Nov, [facility] [address], [place] [address] Nov, Type 2 diabetes mellitus without complications E11.9 [facility] [id number], [place] [address] Oct, Type 2 diabetes mellitus without complications E11.9 [facility] [id number], [place] [address] Aug, [facility] [id number], [place] [address] Aug, Type 2 diabetes mellitus without complications E11.9 [facility] [address], [place] [address] Jun, Type 2 diabetes mellitus without complications E11.9 and 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 use of antiplatelet drug Z79.02 [place] [address], [place] [address] May, [place] [id number] [place] [address] May, Diabetes type 2, controlled E11.9 [place] [id number] [place] [address] Apr, Diabetes type 2, controlled E11.9 [facility] [place] [address] [place] [address] Mar, Diabetes type 2, controlled E11.9 ; Knee pain, right M25.561 ; Other chronic pain G89.29 and Medication monitoring encounter Z51.81 [place] [address] [place] [address] Feb, Type 2 diabetes mellitus without complications E11.9 ; High risk medication use Z79.899 and Anxiety F41.9 [place] [id number] [place] [address] Jan, Diabetes 250.00 [place] [id number] [place] [address] Dec, Diabetes 250.00 [place] [id number] [place] [address] Nov, Diabetes 250.00 [place] [id number] [place] [address] Nov, [place] [id number] [place] [address] Oct, Diabetes mellitus type 1 250.01 and High risk medication use V58.69 [place] [id number] [place] [address] Oct, [facility] [place] [facility] [address] [id number] [place] [address] September, [facility] [place] [facility] [address] [id number] [place] [address] Aug, [facility] [place] [facility] [address] [id number] [place] [address] Aug, [facility] [place] [facility] [address] [id number] [place] [address] Jul, [facility] [place] [facility] [address] [id number] [place] [address] Jul, [facility] [place] [facility] [address] [id number] [place] [address] Jun, [facility] [place] [facility] [address] [id number] [place] [address] Jun, [facility] [place] [facility] [address] [id number] [place] [address] Jun, [facility] [place] [facility] [address] [id number] [place] [address] May, [facility] [place] [facility] [address] [id number] [place] [address] May, [facility] [place] [facility] [address] [id number] [place] [address] Apr, [facility] [place] [facility] [address] [id number] [place] [address] Apr, [facility] [place] [facility] [address] [id number] [place] [address] Apr, [facility] [place] [facility] [address] [id number] [place] [address] Apr, [facility] [place] [facility] [address] [id number] [place] [address] Apr, [facility] [place] [facility] [address] [id number] [place] [address] Apr, [facility] [place] [facility] [address] [id number] [place] [address] Feb, [facility] [place] [facility] [address] [id number] [place] [address] Feb, [facility] [place] [facility] [address] [id number] [place] [address] Feb, [facility] [place] [facility] [address] [id number] [place] [address] Feb, [facility] [place] [facility] [address] [id number] [place] [address] Dec, [facility] [place] [facility] [address] [id number] [place] [address] Dec, [facility] [place] [facility] [address] [id number] [place] [address] Nov, [facility] [place] [facility] [address] [id number] [place] [address] Nov, [facility] [place] [facility] [address] [id number] [place] [address] Oct, [facility] [place] [facility] [address] [id number] [place] [address] Oct, [facility] [place] [facility] [address] [id number] [place] [address] Oct, [facility] [place] [facility] [address] [id number] [place] [address] Oct, [facility] [place] [facility] [address] [id number] [place] [address] Oct, [facility] [place] [facility] [address] [id number] [place] [address] Oct, [facility] [place] [facility] [address] [id number] [place] [address] September, [facility] [place] [facility] [address] [id number] [place] [address] September, [facility] [place] [facility] [address] [id number] [place] [address] September, [facility] [place] [facility] [address] [id number] [place] [address] September, [facility] [place] [facility] [address] [id number] [place] [address] September, [facility] [place] [facility] [address] [id number] [place] [address] September, [facility] [place] [facility] [address] [id number] [place] [address] Aug, [facility] [place] [facility] [address] [id number] [place] [address] Aug, [facility] [place] [facility] [address] [id number] [place] [address] Aug, [facility] [place] [facility] [address] [id number] [place] [address] Aug, [facility] [place] [facility] [address] [id number] [place] [address] Aug, [facility] [place] [facility] [address] [id number] [place] [address] Aug, [facility] [place] [facility] [address] [id number] [place] [address] Jul, [facility] [place] [facility] [address] [id number] [place] [address] Jul, [facility] [place] [facility] [address] [id number] [place] [address] Jul, [facility] [place] [facility] [address] [id number] [place] [address] Jul, [facility] [place] [facility] [address] [id number] [place] [address] May, [facility] [place] [facility] [address] [id number] [place] [address] May, [facility] [place] [facility] [address] [id number] [place] [address] Apr, [facility] [place] [facility] [address] [id number] [place] [address] Apr, [facility] [place] [facility] [address] [id number] [place] [address] Apr, [facility] [place] [facility] [address] [id number] [place] [address] Apr, [facility] [place] [facility] [address] [id number] [place] [address] Apr, [facility] [place] [facility] [address] [id number] [place] [address] Apr, [facility] [place] [facility] [address] [id number] [place] [address] Feb, [facility] [place] [facility] [address] [id number] [place] [address] Feb, [facility] [place] [facility] [address] [id number] [place] [address] Feb, [facility] [place] [facility] [address] [id number], [place] [address] Feb, [facility] [place] [facility] [address] [id number], [place] [address] Feb, [facility] [place] [facility] [address] [id number] [place] [address] Feb, [facility] [place] [facility] [address] [id number], [place] [address] Feb, [facility] [place] [facility] [address] [id number] [place] [address] Feb, [facility] [place] [facility] [address] [id number] [place] [address] 25 Jan, 2013 [facility] [address] [id number] [place] [address] Jan, [facility] [address] [id number] [place] [address] Jan, [facility] [address] [id number] [place] [address] Jan, [facility] [address] [id number] [place] [address] Dec, [facility] [address] [id number] [place] [address] Dec, [facility] [address] [id number] [place] [address] Dec, [facility] [address] [id number] [place] [address] Nov, [facility] [address] [id number] [place] [address] Nov, [facility] [address] [id number] [place] [address] Oct, [facility] [address] [id number] [place] [address] September, [facility] [address] [id number] [place] [address] September, [facility] [address] [id number] [place] [address] September, [facility] [address] [id number] [place] [address] Aug, [facility] [address] [id number] [place] [address] 16 Aug, 2012 [facility] [address] [id number] [place] [address] Aug, [facility] [address] [id number] [place] [address] Jul, [facility] [address] [id number] [place] [address] Jul, [facility] [address] [id number] [place] [address] Jun, [facility] [place] [facility] [address] [id number] [place] [address] Jun, [facility] [address] [id number] [place] [address] Jun, [facility] [address] [id number] [place] [address] Jun, [facility] [address] [id number] [place] [address] May, [facility] [address] [id number] [place] [address] May, [facility] [address] [id number] [place] [address] Apr, [facility] [address] [id number] [place] [address] Apr, [facility] [address] [id number], [place] [address] Apr, [facility] [place] [facility] [address] [id number], [place] [address] Apr, [facility] [place] [facility] [address] [id number] [place] [address] Apr, [facility] [place] [facility] [address] [id number] [place] [address] Apr, [facility] [place] [facility] [address] [id number] [place] [address] Mar, [facility] [address] [id number] [place] [address] Mar, [facility] [place] [facility] [address] [id number] [place] [address] Mar, [facility] [place] [facility] [address] [id number] [place] [address] Mar, [facility] [place] [facility] [address] [id number] [place] [address] Mar, [facility] [place] [facility] [address] [id number] [place] [address] Mar, [facility] [place] [facility] [address] [id number] [place] [address] Feb, [facility] [place] [facility] [address] [id number] [place] [address] Feb, [facility] [place] [facility] [address] [id number] [place] [address] Feb, [facility] [place] [facility] [address] [id number] [place] [address] Feb, [facility] [place] [facility] [address] [id number] [place] [address] Feb, [facility] [place] [facility] [address] [facility] [id number] [place] [address] Jan, [facility] [place] [facility] [address] [id number] [place] [address] Jan, [facility] [place] [facility] [address] [id number] [place] [address] Jan, [facility] [place] [facility] [address] [id number] [place] [address] Dec, [facility] [place] [facility] [address] [id number] [place] [address] Dec, [facility] [place] [facility] [address] [id number] [place] [address] Nov, [facility] [place] [facility] [address] [id number] [place] [address] Oct, [facility] [place] [facility] [address] [id number] [place] [address] Oct, [facility] [place] [facility] [address] [id number] [place] [address] Oct, [facility] [place] [facility] [address] [id number] [place] [address] Oct, [facility] [address] [id number] [place] [address] Oct, [facility] [place] [facility] [address] [id number] [place] [address] September, [facility] [place] [facility] [address] [id number] [place] [address] Aug, [facility] [place] [facility] [address] [id number] [place] [address] 18 Aug, 2011 [facility] [place] [facility] [address] [id number] [place] [address] 17 Aug, 2011 [facility] [place] [facility] [address] [id number] [place] [address] 16 Aug, 2011 [facility] [place] [facility] [address] [id number] [place] [address] 13 Aug, 2011 [facility] [place] [facility] [address] [id number] [place] [address] Aug, [facility] [place] [facility] [address] [id number] [place] [address] Aug, [facility] [place] [facility] [address] [id number] [place] [address] 05 Aug, 2011 [facility] [place] [facility] [address] [id number] [place] [address] 05 Aug, 2011 [facility] [place] [facility] [address] [id number] [place] [address] 20 Jul, 2011 [facility] [address] [id number] [place] [address] 20 Jul, 2011 [facility] [place] [facility] [address] [id number] [place] [address] 20 Jul, 2011 [facility] [place] [facility] [address] [id number] [place] [address] 17 Jul, 2011 [facility] [place] [facility] [address] [id number] [place] [address] 08 Jul, 2011 [facility] [place] [facility] [address] [id number] [place] [address] 15 Jun, 2011 [facility] [place] [facility] [address] [id number] [place] [address] 14 Jun, 2011 [facility] [address] [id number] [place] [address] 08 Jun, 2011 [facility] [place] [facility] [address] [id number] [place] [address] 08 Jun, 2011 [facility] [place] [facility] [address] [id number] [place] [address] May, [facility] [place] [facility] [address] [id number] [place] [address] May, [facility] [place] [facility] [address] [id number] [place] [address] May, [facility] [place] [facility] [address] [id number] [place] [address] May, [facility] [place] [facility] [address] [id number] [place] [address] May, [facility] [place] [facility] [address] [id number] [place] [address] 04 May, 2011 [facility] [place] [facility] [address] [facility] [id number] [place] [address] May, [facility] [place] [facility] [address] [id number] [place] [address] Apr, [facility] [place] [facility] [address] [id number] [place] [address] Apr, [facility] [place] [facility] [address] [id number] [place] [address] Apr, [facility] [place] [facility] [address] [id number] [place] [address] Apr, [facility] [place] [facility] [address] [id number] [place] [address] Apr, [facility] [place] [facility] [address] [id number] [place] [address] Apr, [facility] [place] [facility] [address] [id number] [place] [address] Apr, [facility] [place] [facility] [address] [id number] [place] [address] Apr, [facility] [place] [facility] [address] [id number] [place] [address] Apr, [facility] [place] [facility] [address] [id number] [place] [address] Apr, [facility] [place] [facility] [address] [id number] [place] [address] Mar, [facility] [place] [facility] [address] [id number] [place] [address] Mar, [facility] [place] [facility] [address] [id number] [place] [address] Feb, [facility] [place] [facility] [address] [id number] [place] [address] 16 Jun, 2010 [facility] [place] [facility] [address] [id number] [place] [address] 06 Apr, 2010 [facility] [place] [facility] [address] [id number] [place] [address] Feb, [facility] [address] [facility] [id number], [place] [address] Feb, [facility] [address] [facility] [id number], [place] [address] Feb, [facility] [id number], [place] [address] Apr, [facility] [address] [facility] [id number], [place] [address] Apr, [facility] [address] [facility] [id number], [place] [address] Mar, [facility] [id number], [place] [address] Mar, [facility] [id number], [place] [address] Mar, [facility] [id number], [place] [address] Feb, [facility] [id number], [place] [address] Feb, [facility] [id number], [place] [address] Feb, [facility] [address] [id number], [place] [address] Jan, IMMUNIZATIONS No Known Immunizations SOCIAL HISTORY Never Assessed REASON FOR VISIT FY only PLAN OF CARE VITAL SIGNS MEDICATIONS Unknown [...]
--- NOTE | 2018-11-02 21:02 | NUR ---
i said left side couple times in my assessment. everything is on the right knee/leg.
--- NOTE | 2018-11-02 21:02 | NUR ---
pt here with per . pt alert [facility]cs 15. relates pt has h/o " dimentia little bit". pt wa at the gym excercising 5 days ago. and pt fell 3 days ago. says " leg gave out". pt been c/o right knee pain and swelling and says " calf is hard". on exam right anterior knee is swollen and right calf is hard compared to left. pt whole left leg is swollen compared to left. left lower marisol area is slight red. positive pulse and sensation right foot. pt pain rating " 11". denies dyspnea and no acute sighns of dyspnea noted. lungs equal cta bilaterally. forehead temp 100.0. face is red and warm. no other area is warm and recheck temp orally is 98.5. pt c/o pain from knee down the right leg including the calf area. done esthela pt 2111.
--- OUTSIDE RECORDS SUMMARY | 2018-11-02 21:36 | XMS REPORT | Continuity of Care Document ---
Author Organization Unknown Address Unknown Allergies Active Description Code Type Severity Reaction Onset Reported/Identified Relationship to Patient Clinical Status Yes Sulfa (Sulfonamide Antibiotics) [id number] Drug Allergy Unknown N/A 03/12/2007 Yes sulfa drug Drug Allergy 06/08/2008 Medications [...] MCGRATH APRN 401.1 Hypertension, Benign Essential 12/30/2007 JASON COOLEY, [...] 01/30/2008 MARLEY MCGRATH APRN 272.1 HYPERTRIGLYCERIDEMIA 01/30/2008 JASON COOLEY, JAVIER Moran 272.1 HYPERTRIGLYCERIDEMIA 01/30/2008 MARLEY MCGRATH APRN 272.1 HYPERTRIGLYCERIDEMIA 01/30/2008 272.1 HYPERTRIGLYCERIDEMIA 01/30/2008 JASON COOLEY, JAVIER Moran 272.1 HYPERTRIGLYCERIDEMIA 01/30/2008 ALCIDES ARCHITECTURAL ASSOCIATE, MARLEY T 272.1 HYPERTRIGLYCERIDEMIA 01/30/2008 MARLEY MCGRATH APRN T 272.1 HYPERTRIGLYCERIDEMIA 03/29/2008 MARLEY MCGRATH APRN T 250.00 DIABETES MELLITUS TYPE II 03/29/2008 MARLEY MCGRATH APRN T V58.69 MEDICATION HIGH RISK 03/29/2008 MARLEY MCGRATH APRN T 250.00 DIABETES MELLITUS TYPE II 03/29/2008 MARLEY MCGRATH APRN T V58.69 MEDICATION HIGH RISK 03/29/2008 250.00 [...] V58.69 MEDICATION HIGH RISK 03/29/2008 DANIELS DO, ADR K 250.00 DIABETES MELLITUS TYPE II 03/29/2008 DANIELS DO, DAR K V58.69 MEDICATION HIGH RISK 03/29/2008 MARLEY MCGRATH APRN T 250.00 DIABETES MELLITUS TYPE II 03/29/2008 MARLEY MCGRATH APRN V58.69 MEDICATION HIGH RISK 03/29/2008 MARLEY MCGRATH APRN T 250.00 DIABETES MELLITUS TYPE II 03/29/2008 MARLEY MCGRATH APRN T V58.69 MEDICATION HIGH RISK 03/29/2008 MARLEY MCGRATH APRN T 250.00 DIABETES MELLITUS TYPE II 03/29/2008 MARLEY MCGRATH APRN V58.69 MEDICATION HIGH RISK 03/29/2008 JAVIER GOMEZ PHD 250.00 DIABETES MELLITUS TYPE II 03/29/2008 JASON COOLEY, JAVIER Moran V58.69 MEDICATION HIGH RISK 03/29/2008 MARLEY MCGRATH APRN T 250.00 DIABETES MELLITUS TYPE II 03/29/2008 MARLEY MCGRATH APRN T V58.69 MEDICATION HIGH RISK 03/29/2008 250.00 DIABETES MELLITUS TYPE II 03/29/2008 V58.69 MEDICATION HIGH RISK 03/29/2008 JASON COOLEY, JAVIER Moran 250.00 DIABETES MELLITUS TYPE II 03/29/2008 JASON PHD, JAVIER Moran V58.69 MEDICATION HIGH RISK 03/29/2008 MARLEY MCGRATH APRN T 250.00 DIABETES MELLITUS TYPE II 03/29/2008 MARLEY MCGRATH APRN T V58.69 MEDICATION HIGH RISK 03/29/2008 MARLEY MCGRATH APRN T 250.00 DIABETES MELLITUS TYPE II 03/29/2008 MARLEY MCGRATH APRN V58.69 MEDICATION HIGH RISK 09/02/2008 MARLEY MCGRATH APRN T 272.4 HYPERLIPIDEMIA UNSPECIFIED 09/02/2008 MARLEY MCGRATH APRN 414.01 CAD 09/02/2008 MARLEY MCGRATH APRN T 272.4 HYPERLIPIDEMIA UNSPECIFIED 09/02/2008 MARLEY MCGRATH APRN T 414.01 CAD 09/02/2008 272.4 HYPERLIPIDEMIA UNSPECIFIED 09/02/2008 [...] K 414.01 CAD 09/02/2008 MARLEY MCGRATH APRN T 272.4 HYPERLIPIDEMIA UNSPECIFIED 09/02/2008 MARLEY MCGRATH APRN T 414.01 CAD 09/02/2008 MARLEY MCGRATH APRN 272.4 HYPERLIPIDEMIA UNSPECIFIED 09/02/2008 MARLEY MCGRATH APRN T 414.01 CAD 09/02/2008 MARLEY MCGRATH APRN 272.4 HYPERLIPIDEMIA UNSPECIFIED 09/02/2008 MARLEY MCGRATH APRN 414.01 CAD 09/02/2008 JAVIER GOMEZ PHD 272.4 HYPERLIPIDEMIA UNSPECIFIED 09/02/2008 JAVIER GOMEZ PHD 414.01 CAD 09/02/2008 MARLEY MCGRATH APRN 272.4 HYPERLIPIDEMIA UNSPECIFIED 09/02/2008 MARLEY MCGRATH APRN 414.01 CAD 09/02/2008 272.4 HYPERLIPIDEMIA UNSPECIFIED 09/02/2008 414.01 CAD 09/02/2008 JAVIER GOMEZ PHD 272.4 HYPERLIPIDEMIA UNSPECIFIED 09/02/2008 JAVIER GOMEZ PHD 414.01 CAD 09/02/2008 MARLEY MCGRATH APRN 272.4 [...] MARLEY MCGRATH APRN 724.5 BACKACHE UNSPECIFIED 08/31/2009 ALCIDES ARCHITECTURAL ASSOCIATE, MARLEY T 724.5 BACKACHE UNSPECIFIED 08/31/2009 724.5 BACKACHE UNSPECIFIED 08/31/2009 724.5 Backache Unspecified 08/31/2009 724.5 Backache Unspecified 08/31/2009 724.5 Backache Unspecified 08/31/2009 724.5 Backache Unspecified 08/31/2009 724.5 Backache Unspecified 08/31/2009 DANIELS DOGINGERA K 724.5 Backache Unspecified 08/31/2009 JEREMIAH DO, DAR K 724.5 Backache Unspecified 08/31/2009 MARLEY MCGRATH APRN 724.5 Backache Unspecified 08/31/2009 MARLEY MCGRATH APRN 724.5 Backache Unspecified 08/31/2009 MARLEY MCGRATH APRN 724.5 Backache Unspecified 08/31/2009 JASON COOLEY, JAVIER Moran 724.5 Backache Unspecified 08/31/2009 MARLEY MCGRATH APRN 724.5 Backache Unspecified 08/31/2009 724.5 Backache Unspecified 08/31/2009 JASON COOLEY, JAVIER Moran 724.5 Backache Unspecified 08/31/2009 MARLEY MCGRATH APRN [...] 04/10/2010 780.79 Malaise And Fatigue 04/10/2010 DANIELS DOGINGERA K 780.79 Malaise And Fatigue 04/10/2010 JEREMIAH DO DAR K 780.79 Malaise And Fatigue [...] Leg Except Foot 07/06/2010 DAR DANIELS DO 682.6 Cellulitis And Abscess Of Leg Except Foot 07/06/2010 DAR DANIELS DO 682.6 Cellulitis And Abscess Of Leg Except [...] And Abscess Of Unspecified Sites 07/11/2010 DANIELS DO DAR K 682.9 Cellulitis And Abscess Of Unspecified Sites 07/11/2010 DANIELS DO, DAR K 682.9 Cellulitis And Abscess Of Unspecified Sites 07/11/2010 MARLEY MCGRATH APRN 682.9 Cellulitis And Abscess Of Unspecified Sites 07/11/2010 MARLEY MCGRATH APRN 682.9 Cellulitis And Abscess Of Unspecified Sites 07/11/2010 MARLEY MCGRATH APRN 682.9 Cellulitis And Abscess Of Unspecified Sites 07/11/2010 JASON COOLEY, JAVIER Moran 682.9 Cellulitis And Abscess Of Unspecified Sites 07/11/2010 MARLEY MCGRATH APRN 682.9 Cellulitis And Abscess Of Unspecified Sites 07/11/2010 682.9 Cellulitis And Abscess Of Unspecified Sites 07/11/2010 JASON COOLEY, JAVIER Moran 682.9 Cellulitis And Abscess Of Unspecified Sites 07/11/2010 MARLEY MCGARTH APRN 682.9 Cellulitis And Abscess Of Unspecified Sites 07/11/2010 MARLEY MCGRATH APRN 682.9 Cellulitis And Abscess Of Unspecified Sites 03/16/2011 Ot 250.00 DIAB ZARA WO COMPL, TYPE II OR UNSPEC TY 03/16/2011 Ot 278.00 OBESITY, NOS 03/16/2011 Ot 300.4 DYSTHYMIC DISORDER 03/16/2011 Ot 401.9 HYPERTENSION NOS 03/16/2011 Ot 414.01 CORONARY ATHEROSCLEROSIS OF [place] CORON 03/16/2011 Ot 440.0 AORTIC ATHEROSCLEROSIS 03/16/2011 [...] 04/25/2011 MARLEY MCGRATH APRN 790.29 Hyperglycemia 04/25/2011 JASON PHD, JAVIER Moran 790.29 Hyperglycemia 04/25/2011 MARLEY MCGRATH APRN 790.29 Hyperglycemia 04/25/2011 790.29 Hyperglycemia 04/25/2011 JASON COOLEY, JAVIER Moran 790.29 Hyperglycemia 04/25/2011 MARLEY MCGRATH APRN 790.29 Hyperglycemia 04/25/2011 MARLEY MCGRATH APRN 790.29 Hyperglycemia 05/18/2011 MARLEY MCGRATH APRN 257.2 HYPOGONADISM 05/18/2011 MARLEY MCGRATH APRN 257.2 HYPOGONADISM 05/18/2011 257.2 HYPOGONADISM 05/18/2011 257.2 HYPOGONADISM 05/18/2011 257.2 HYPOGONADISM 05/18/2011 257.2 HYPOGONADISM 05/18/2011 257.2 HYPOGONADISM 05/18/2011 257.2 HYPOGONADISM 05/18/2011 JEREMIAH DO DAR K 257.2 HYPOGONADISM 05/18/2011 DANIELS DO, [...] KNEE PAIN 06/20/2011 719.46 KNEE PAIN 06/20/2011 JEREMIAH DO DAR K 719.46 KNEE PAIN 06/20/2011 JEREMIAH DO DAR K 719.46 KNEE PAIN 06/20/2011 MARLEY [...] SPRAIN LUMBAR REGION 08/17/2012 Ot 959.01 HEAD INJURY, NOS 08/17/2012 Ot E000.8 OTHER EXTERNAL CAUSE STATUS 08/17/2012 Ot 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 09/22/2012 729.5 PAIN- HAND 09/22/2012 V76.44 PROSTATE [...] MCGRATH APRN V76.44 PROSTATE CANCER SCREENING 09/22/2012 JAVIER GOMEZ PHD 729.5 PAIN- HAND 09/22/2012 JASON COOLEY, JAVIER Moran V76.44 PROSTATE CANCER SCREENING 09/22/2012 MARLEY MCGRATH APRN 729.5 PAIN- HAND 09/22/2012 MARLEY MCGRATH APRN V76.44 PROSTATE CANCER SCREENING 09/22/2012 729.5 PAIN- HAND 09/22/2012 V76.44 PROSTATE CANCER SCREENING 09/22/2012 JASON COOLEY, JAVIER Moran 729.5 PAIN- HAND 09/22/2012 JASON COOLEY, JAVIER Moran V76.44 PROSTATE CANCER SCREENING 09/22/2012 MARLEY MCGRATH [...] SCHMIDT MD Ot 414.01 CORONARY ATHEROSCLEROSIS OF [place] CORON 01/21/2013 YOHANA SCHMIDT MD Ot 427.81 [...] V85.36 BODY MASS INDEX 36.0-36.9, ADULT 01/22/2013 DAR DANIELS DO 733.92 CHONDROMALACIA 01/22/2013 DAR DANIELS [...] Ot 959.01 HEAD INJURY, NOS 04/25/2014 YOSEPH AGARWAL MD Ot E000.8 OTHER EXTERNAL CAUSE STATUS 04/25/2014 YOSEPH AGARWAL MD Ot E849.0 ACCIDENT IN HOME 04/25/2014 YOSEPH AGARWAL MD Ot E880.9 FALL ON STAIR/STEP NEC 04/25/2014 YOSEPH AGARWAL MD Ot V06.1 [id number], COMBINED [ 04/25/2014 YOSEPH AGARWAL MD Ot V58.61 ANTICOAGULANTS,LT,CURRENT USE 02/28/2015 YOHANA SCHMIDT MD Ot 401.9 02/28/2015 YOHANA SCHMIDT MD Ot 414.01 02/28/2015 YOHANA SCHMIDT MD Ot 401.9 02/28/2015 YOHANA SCHMIDT MD Ot 414.00 02/28/2015 YOHANA SCHMIDT MD Ot 424.0 02/28/2015 YOHANA SCHMIDT MD Ot 429.3 03/23/2015 MARLEY MCGRATH Ot Z51.81 03/23/2015 MARLEY MCGRATH Ot Z79.899 07/19/2015 YOHANA SCHMIDT MD Ot I10 07/19/2015 YOHANA SCHMIDT MD Ot I25.10 07/19/2015 YOHANA SCHMIDT MD Ot I49.5 07/19/2015 YOHANA SCHMIDT MD Ot I65.23 07/27/2015 YOHANA SCHMIDT MD Ot E66.9 OBESITY, UNSPECIFIED 07/27/2015 YOHANA SCHMIDT MD Ot E78.5 HYPERLIPIDEMIA, UNSPECIFIED 07/27/2015 YOHANA SCHMIDT MD Ot I10 ESSENTIAL (PRIMARY) HYPERTENSION 07/27/2015 YOHANA SCHMIDT MD Ot I25.10 ATHSCL HEART DISEASE OF [place] CORONARY 07/27/2015 YOHANA SCHMIDT MD Ot I49.5 SICK SINUS SYNDROME 07/27/2015 YOHANA SCHMIDT MD Ot I50.30 UNSPECIFIED DIASTOLIC (CONGESTIVE) HEART 07/27/2015 YOHANA SCHMIDT MD Ot J44.9 CHRONIC OBSTRUCTIVE PULMONARY DISEASE, U 07/27/2015 YOHANA SCHMIDT MD Ot R94.39 ABNORMAL RESULT OF OTHER CARDIOVASCULAR 07/27/2015 YOHANA SCHMIDT MD Ot Z68.38 BODY MASS INDEX (BMI) 38.0-38.9, ADULT 07/27/2015 YOHANA SCHMIDT MD Ot Z79.899 OTHER [facility] (CURRENT) DRUG THERAPY 07/27/2015 YOHANA SCHMIDT MD [...] MD Ot I25.10 ATHSCL HEART DISEASE OF [place] CORONARY 11/17/2015 YOHANA SCHMIDT MD Ot I49.5 SICK SINUS SYNDROME 11/17/2015 YOHANA SCHMIDT MD Ot J44.9 CHRONIC OBSTRUCTIVE PULMONARY DISEASE, U 11/17/2015 YOHANA SCHMIDT MD Ot Z45.010 ENCNTR FOR CHECKING AND TEST OF CARD PAC 11/17/2015 YOHANA SCHMIDT MD Ot Z68.36 BODY MASS INDEX (BMI) 36.0-36.9, ADULT 11/17/2015 YOHANA SCHMIDT MD Ot Z79.01 GREASER OPERATOR (CURRENT) USE OF ANTICOAGULANT 11/17/2015 YOHANA SCHMIDT MD Ot Z79.899 OTHER [facility] (CURRENT) DRUG THERAPY 12/09/2015 YOHANA SCHMIDT MD Ot E66.9 OBESITY, UNSPECIFIED 12/09/2015 YOHANA SCHMIDT MD Ot E78.5 HYPERLIPIDEMIA, UNSPECIFIED 12/09/2015 YOHANA SCHMIDT MD Ot I10 ESSENTIAL (PRIMARY) HYPERTENSION 12/09/2015 YOHANA SCHMIDT MD Ot I25.10 ATHSCL HEART DISEASE OF [place] CORONARY 12/09/2015 YOHANA SCHMIDT MD Ot I49.5 SICK SINUS SYNDROME 12/09/2015 YOHANA SCHMIDT MD Ot J44.9 CHRONIC OBSTRUCTIVE PULMONARY DISEASE, U 12/09/2015 YOHANA SCHMIDT MD Ot Z45.010 ENCNTR FOR CHECKING AND TEST OF CARD PAC 12/09/2015 YOHANA SCHMIDT MD Ot Z68.36 BODY MASS INDEX (BMI) 36.0-36.9, ADULT 12/09/2015 YOHANA SCHMIDT MD Ot Z79.01 MCFP (CURRENT) USE OF ANTICOAGULANT 12/09/2015 YOHANA SCHMIDT MD Ot Z79.899 OTHER [facility] (CURRENT) DRUG THERAPY 02/27/2016 YOHANA SCHMIDT MD Ot 401.9 HYPERTENSION NOS 02/27/2016 YOHANA SCHMIDT MD Ot 414.01 CORONARY ATHEROSCLEROSIS OF [place] CORON 02/27/2016 YOHANA SCHMIDT MD Ot 401.9 HYPERTENSION NOS 02/27/2016 YOHANA SCHMIDT MD Ot 414.00 CORON ATHEROSCLER NOS TYPE VESSEL, NATIV 02/27/2016 YOHANA SCHMIDT MD Ot 424.0 MITRAL VALVE DISORDER 02/27/2016 YOHANA SCHMIDT MD Ot 429.3 CARDIOMEGALY 02/27/2016 MARLEY MCGRATH Ot Z51.81 ENCOUNTER FOR THERAPEUTIC DRUG LEVEL MON 02/27/2016 MARLEY MCGRATH Ot Z79.899 OTHER [facility] (CURRENT) DRUG THERAPY 02/27/2016 YOHANA SCHMIDT MD Ot I10 ESSENTIAL (PRIMARY) HYPERTENSION 02/27/2016 YOHANA SCHMIDT MD Ot I25.10 ATHSCL HEART DISEASE OF [place] CORONARY 02/27/2016 YOHANA SCHMIDT MD Ot I49.5 SICK SINUS SYNDROME 02/27/2016 YOHANA SCHMIDT MD Ot I65.23 OCCLUSION AND STENOSIS OF BILATERAL [place] 02/27/2016 YOHANA SCHMIDT MD Ot I10 ESSENTIAL (PRIMARY) HYPERTENSION 02/27/2016 YOHANA SCHMIDT MD Ot I25.10 ATHSCL HEART DISEASE OF [place] CORONARY 02/27/2016 YOHANA SCHMIDT MD Ot I49.5 SICK SINUS SYNDROME 02/27/2016 YOHANA SCHMIDT MD Ot I65.23 OCCLUSION AND STENOSIS OF BILATERAL [place] 02/27/2016 YOHANA SCHMIDT MD Ot I10 ESSENTIAL (PRIMARY) HYPERTENSION 02/27/2016 YOHANA SCHMIDT MD Ot I25.10 ATHSCL HEART DISEASE OF [place] CORONARY 02/27/2016 YOHANA SCHMIDT MD Ot I49.5 SICK SINUS SYNDROME 02/27/2016 YOHANA SCHMIDT MD Ot I65.23 OCCLUSION AND STENOSIS OF BIL[place]AL [place] 02/27/2016 YOHANA SCHMIDT MD Ot I10 ESSENTIAL (PRIMARY) HYPERTENSION 02/27/2016 YOHANA SCHMIDT MD Ot I25.10 ATHSCL HEART DISEASE OF [place] CORONARY 02/27/2016 YOHANA SCHMIDT MD Ot I49.5 SICK SINUS SYNDROME 02/27/2016 YOHANA SCHMIDT MD Ot I65.23 OCCLUSION AND STENOSIS OF BILATERAL [place] 02/27/2016 YOHANA SCHMIDT MD Ot 401.9 HYPERTENSION NOS 02/27/2016 YOHANA SCHMIDT MD Ot 414.01 CORONARY ATHEROSCLEROSIS OF [place] CORON 02/27/2016 YOHANA SCHMIDT MD Ot 401.9 HYPERTENSION NOS 02/27/2016 YOHANA SCHMIDT MD Ot 414.00 CORON ATHEROSCLER NOS TYPE VESSEL, NATIV 02/27/2016 YOHANA SCHMIDT MD Ot 424.0 MITRAL VALVE DISORDER 02/27/2016 YOHANA SCHMIDT MD Ot 429.3 CARDIOMEGALY 09/02/2017 YOHANA SCHMIDT MD Ot 401.9 HYPERTENSION NOS 09/02/2017 YOHANA SCHMIDT MD Ot 414.01 CORONARY ATHEROSCLEROSIS OF [place] CORON 09/02/2017 YOHANA SCHMIDT MD Ot 401.9 HYPERTENSION NOS 09/02/2017 YOHANA SCHMIDT MD Ot 414.00 CORON ATHEROSCLER NOS TYPE VESSEL, NATIV 09/02/2017 YOHANA SCHMIDT MD Ot 424.0 MITRAL VALVE DISORDER 09/02/2017 YOHANA SCHMIDT MD Ot 429.3 CARDIOMEGALY 09/02/2017 MARLEY MCGRATH Ot Z51.81 ENCOUNTER FOR THERAPEUTIC DRUG LEVEL MON 09/02/2017 MARLEY MCGRATH Ot Z79.899 OTHER GREASER OPERATOR (CURRENT) DRUG THERAPY 09/02/2017 YOHANA SCHMIDT MD Ot I10 ESSENTIAL (PRIMARY) HYPERTENSION 09/02/2017 YOHANA SCHMIDT MD Ot I25.10 ATHSCL HEART DISEASE OF [place] CORONARY 09/02/2017 YOHANA SCHMIDT MD Ot I49.5 SICK SINUS SYNDROME 09/02/2017 YOHANA SCHMIDT MD Ot I65.23 OCCLUSION AND STENOSIS OF BILATERAL [place] 09/02/2017 YOHANA SCHMIDT MD Ot I10 ESSENTIAL (PRIMARY) HYPERTENSION 09/02/2017 YOHANA SCHMIDT MD Ot I25.10 ATHSCL HEART DISEASE OF [place] CORONARY 09/02/2017 YOHANA SCHMIDT MD Ot I49.5 SICK SINUS SYNDROME 09/02/2017 YOHANA SCHMIDT MD Ot I65.23 OCCLUSION AND STENOSIS OF [place] 09/02/2017 YOHANA SCHMIDT MD Ot I10 ESSENTIAL (PRIMARY) HYPERTENSION 09/02/2017 YOHANA SCHMIDT MD Ot I25.10 ATHSCL HEART DISEASE OF [place] CORONARY 09/02/2017 YOHANA SCHMIDT MD Ot I63.9 [...] MD Ot I25.10 ATHSCL HEART DISEASE OF [place] CORONARY 09/27/2017 YOHANA SCHMIDT MD Ot I63.9 [...] DIABETES MELLITUS WITH UNSPECIFIE 11/06/2017 ITZEL BERGMAN DO, Ot E78.5 HYPERLIPIDEMIA, UNSPECIFIED 11/06/2017 ITZEL BERGMAN DO Ot F32.9 MAJOR DEPRESSIVE DISORDER, SINGLE EPISOD 11/06/2017 ITZEL BERGMAN DO, Ot F41.9 ANXIETY DISORDER, UNSPECIFIED 11/06/2017 RENETTA BERGMAN DOT E Ot G47.30 SLEEP APNEA, UNSPECIFIED 11/06/2017 ITZEL BERGMAN DO Ot G89.29 OTHER CHRONIC PAIN 11/06/2017 ITZEL BERGMAN DO Ot I10 ESSENTIAL (PRIMARY) HYPERTENSION 11/06/2017 ITZEL BERGMAN DO Ot I25.10 ATHSCL HEART DISEASE OF [place] CORONARY 11/06/2017 ITZEL BERGMAN DO Ot J18.9 PNEUMONIA, UNSPECIFIED ORGANISM 11/06/2017 ITZEL BERGMAN DO Ot J81.0 ACUTE PULMONARY EDEMA 11/06/2017 ITZEL BERGMAN DO Ot J96.01 ACUTE RESPIRATORY FAILURE WITH HYPOXIA 11/06/2017 ITZEL BERGMAN DO Ot K21.9 GASTRO-ESOPHAGEAL REFLUX DISEASE WITHOUT 11/06/2017 [place] ITZEL CAPELLAN Ot N17.9 ACUTE KIDNEY FAILURE, UNSPECIFIED 11/06/2017 ITZEL BERGMAN DO Ot R04.2 HEMOPTYSIS 11/06/2017 ITZEL BERGMAN DO Ot R79.1 ABNORMAL COAGULATION PROFILE 11/06/2017 ITZEL BERGMAN DO Ot Z79.84 GREASER OPERATOR (CURRENT) USE OF ORAL HYPOGLYC 11/06/2017 ITZEL BERGMAN DO Ot Z86.73 PRSNL HX OF TIA (TIA), AND CEREB INFRC W 11/06/2017 ITZEL BERGMAN DO Ot Z95.0 PRESENCE OF CARDIAC PACEMAKER 11/06/2017 ITZEL BERGMAN DO Ot Z99.81 DEPENDENCE ON SUPPLEMENTAL OXYGEN 11/06/2017 ITZEL BERGMAN DO Ot A41.9 SEPSIS, UNSPECIFIED ORGANISM 11/06/2017 ITZEL BERGMAN DO Ot E11.8 TYPE 2 DIABETES MELLITUS WITH UNSPECIFIE 11/06/2017 JESSIEDGITZEL Hoffmann DO Ot E78.5 HYPERLIPIDEMIA, UNSPECIFIED 11/06/2017 JESSIEDGITZEL Hoffmann DO Ot F32.9 MAJOR DEPRESSIVE DISORDER, SINGLE EPISOD 11/06/2017 ITZEL BERGMAN DO Ot F41.9 ANXIETY DISORDER, UNSPECIFIED 11/06/2017 ITZEL BERGMAN DO Ot G47.30 SLEEP APNEA, UNSPECIFIED 11/06/2017 ITZEL BERGMAN DO Ot G89.29 OTHER CHRONIC PAIN 11/06/2017 ITZEL BERGMAN DO Ot I10 ESSENTIAL (PRIMARY) HYPERTENSION 11/06/2017 ITZEL BERGMAN DO Ot I25.10 ATHSCL HEART DISEASE OF [place] CORONARY 11/06/2017 ITZEL BERGMAN DO Ot J18.9 [...] PROFILE 11/06/2017 ITZEL BERGMAN DO Ot Z79.84 GREASER OPERATOR (CURRENT) USE OF ORAL HYPOGLYC 11/06/2017 ITZEL [...] F32.9 MAJOR DEPRESSIVE DISORDER, SINGLE EPISOD 11/07/2017 ITZEL BERGMAN DO Ot F41.9 ANXIETY DISORDER, UNSPECIFIED 11/07/2017 [facility] Ot G47.30 SLEEP APNEA, UNSPECIFIED 11/07/2017 JESSIEITZEL Hoffmann DO Ot G89.29 OTHER CHRONIC PAIN 11/07/2017 JESSIEITZEL Hoffmann DO Ot I10 ESSENTIAL (PRIMARY) HYPERTENSION 11/07/2017 [facility] Ot I25.10 ATHSCL HEART DISEASE OF [place] CORONARY 11/07/2017 JESSIEITZEL Hoffmann DO Ot J18.9 PNEUMONIA, UNSPECIFIED ORGANISM 11/07/2017 [facility] Ot J81.0 ACUTE PULMONARY EDEMA 11/07/2017 ITZEL BERGMAN DO Ot J96.01 ACUTE RESPIRATORY FAILURE WITH HYPOXIA 11/07/2017 JESSIEITZEL Hoffmann DO Ot K21.9 GASTRO-ESOPHAGEAL REFLUX DISEASE WITHOUT 11/07/2017 BARNIITZEL Hoffmann DO Ot N17.9 ACUTE KIDNEY FAILURE, UNSPECIFIED 11/07/2017 ITZEL BERGMAN DO Ot R04.2 HEMOPTYSIS 11/07/2017 ITZEL BERGMAN DO Ot R79.1 ABNORMAL COAGULATION PROFILE 11/07/2017 ITZEL BERGMAN DO Ot Z79.84 GREASER OPERATOR (CURRENT) USE OF ORAL HYPOGLYC 11/07/2017 [facility] DO Ot Z86.73 PRSNL HX OF TIA (TIA), AND CEREB INFRC W 11/07/2017 ITZEL BERGMAN DO Ot Z95.0 PRESENCE OF CARDIAC PACEMAKER 11/07/2017 ITZEL BERGMAN DO Ot Z99.81 DEPENDENCE ON SUPPLEMENTAL OXYGEN 11/07/2017 ITZEL BERGMAN DO Ot A41.9 SEPSIS, UNSPECIFIED ORGANISM 11/07/2017 ITZEL BERGMAN DO Ot E11.8 TYPE 2 DIABETES MELLITUS WITH UNSPECIFIE 11/07/2017 ITZEL BERGMAN DO Ot E29.1 TESTICULAR HYPOFUNCTION 11/07/2017 [facility] Ot E66.9 OBESITY, UNSPECIFIED 11/07/2017 ANGELITA BERGMAN DOARET E Ot E78.5 HYPERLIPIDEMIA, UNSPECIFIED 11/07/2017 [place] DOITZEL Ot F32.9 MAJOR DEPRESSIVE DISORDER, SINGLE EPISOD 11/07/2017 [place] DOITZEL Ot F33.9 MAJOR DEPRESSIVE DISORDER, RECURRENT, UN 11/07/2017 [place] DOITZEL Ot F41.9 ANXIETY DISORDER, UNSPECIFIED 11/07/2017 [place] DOITZEL Ot G47.30 SLEEP APNEA, UNSPECIFIED 11/07/2017 [place] DOITZEL Ot G89.29 OTHER CHRONIC PAIN 11/07/2017 [place] DOITZEL Ot H91.93 UNSPECIFIED HEARING LOSS, BILATERAL 11/07/2017 [place] DOITZEL Ot I10 ESSENTIAL (PRIMARY) HYPERTENSION 11/07/2017 [place] DOITZEL Ot I11.0 HYPERTENSIVE HEART DISEASE WITH HEART FA 11/07/2017 [place] DOITZEL Ot I25.10 ATHSCL HEART DISEASE OF [place] CORONARY 11/07/2017 [place] DOITZEL Ot I50.32 CHRONIC DIASTOLIC (CONGESTIVE) HEART HAWK 11/07/2017 [place] ITZEL CAPELLAN Ot J18.9 PNEUMONIA, UNSPECIFIED ORGANISM 11/07/2017 [place] DOITZEL Ot J81.0 ACUTE PULMONARY EDEMA 11/07/2017 [facility] Hoffmann DO Ot J96.01 ACUTE RESPIRATORY FAILURE WITH HYPOXIA 11/07/2017 BAR[facility]EL Hoffmann DO Ot K21.9 GASTRO-ESOPHAGEAL REFLUX DISEASE WITHOUT 11/07/2017 [place] DOITZEL Ot M19.91 PRIMARY OSTEOARTHRITIS, UNSPECIFIED SITE 11/07/2017 [place] DOITZEL Ot N17.9 ACUTE KIDNEY FAILURE, UNSPECIFIED 11/07/2017 [place] DOITZEL Ot R04.2 HEMOPTYSIS 11/07/2017 [place] DOITZEL Ot R53.82 CHRONIC FATIGUE, UNSPECIFIED 11/07/2017 [place] DOITZEL Ot R79.1 ABNORMAL COAGULATION PROFILE 11/07/2017 ITZEL BERGMAN DO Ot Z68.37 BODY MASS INDEX (BMI) 37.0-37.9, ADULT 11/07/2017 ITZEL BERGMAN DO Ot Z79.84 [facility] (CURRENT) USE OF ORAL HYPOGLYC 11/07/2017 ITZEL BERGMAN DO Ot Z86.73 PRSNL HX OF TIA (TIA), AND CEREB INFRC W 11/07/2017 ITZEL BERGMAN DO Ot Z91.19 PATIENT'S NONCOMPLIANCE W OT MEDICAL TR 11/07/2017 ITZEL BERGMAN DO Ot Z95.0 PRESENCE OF CARDIAC PACEMAKER 11/07/2017 ITZEL BERGMAN DO Ot Z99.81 DEPENDENCE ON SUPPLEMENTAL OXYGEN 04/28/2018 YOHANA SCHMIDT MD Ot 401.9 HYPERTENSION NOS 04/28/2018 YOHANA SCHMIDT MD Ot 414.01 CORONARY ATHEROSCLEROSIS OF [place] CORON 04/28/2018 YOHANA SCHMIDT MD Ot 401.9 HYPERTENSION NOS 04/28/2018 YOHANA SCHMIDT MD Ot 414.00 CORON ATHEROSCLER NOS TYPE VESSEL, NATIV 04/28/2018 YOHANA SCHMIDT MD Ot 424.0 MITRAL VALVE DISORDER 04/28/2018 YOHANA SCHMIDT MD Ot 429.3 CARDIOMEGALY 04/28/2018 MARLEY MCGRATH Ot Z51.81 ENCOUNTER FOR THERAPEUTIC DRUG LEVEL MON 04/28/2018 MARLEY MCGRATH Ot Z79.899 OTHER [facility] (CURRENT) DRUG THERAPY 04/28/2018 YOHANA SCHMIDT MD Ot I10 ESSENTIAL (PRIMARY) HYPERTENSION 04/28/2018 YOHANA SCHMIDT MD Ot I25.10 ATHSCL HEART DISEASE OF [place] CORONARY 04/28/2018 YOHANA SCHMIDT MD Ot I49.5 SICK SINUS SYNDROME 04/28/2018 YOHANA SCHMIDT MD Ot I65.23 OCCLUSION AND STENOSIS OF [place]AL [place] 04/28/2018 YOHANA SCHMIDT MD Ot I10 ESSENTIAL (PRIMARY) HYPERTENSION 04/28/2018 YOHANA SCHMIDT MD Ot I25.10 ATHSCL HEART DISEASE OF [place] CORONARY 04/28/2018 YOHANA SCHMIDT MD, Ot I49.5 SICK SINUS SYNDROME 04/28/2018 YOHANA SCHIMDT MD, Ot I65.23 OCCLUSION AND STENOSIS OF [place] 04/28/2018 YOHANA SCHMIDT MD Ot I10 ESSENTIAL (PRIMARY) HYPERTENSION 04/28/2018 YOHANA SCHMIDT MD, Ot I25.10 ATHSCL HEART DISEASE OF [place] CORONARY 04/28/2018 YOHANA SCHMIDT MD Ot I63.9 CEREBRAL INFARCTION, UNSPECIFIED 04/28/2018 YOHANA SCHMIDT MD Ot I65.23 OCCLUSION AND STENOSIS OF [place] 04/28/2018 YOHANA SCHMIDT MD Ot R06.00 DYSPNEA, UNSPECIFIED 04/28/2018 YOHANA SCHMIDT MD Ot R07.9 CHEST PAIN, UNSPECIFIED 04/28/2018 YOHANA SCHMIDT MD Ot R94.39 ABNORMAL RESULT OF OTHER CARDIOVASCULAR 04/29/2018 LYSSA SWEET MD, Ot B34.9 VIRAL INFECTION, UNSPECIFIED 04/29/2018 LYSSA SWEET MD Ot E11.9 TYPE 2 DIABETES MELLITUS WITHOUT COMPLIC 04/29/2018 LYSSA SWEET MD, Ot E78.5 HYPERLIPIDEMIA, UNSPECIFIED 04/29/2018 LYSSA SWEET MD, Ot F32.9 MAJOR DEPRESSIVE DISORDER, SINGLE EPISOD 04/29/2018 LYSSA SWEET MD, Ot F41.9 ANXIETY DISORDER, UNSPECIFIED 04/29/2018 LYSSA SWEET MD, Ot G47.00 INSOMNIA, UNSPECIFIED 04/29/2018 LYSSA SWEET MD, Ot G47.30 SLEEP APNEA, UNSPECIFIED 04/29/2018 LYSSA SWEET MD Ot G89.29 OTHER CHRONIC PAIN 04/29/2018 LYSSA SWEET MD, Ot H53.8 OTHER VISUAL DISTURBANCES 04/29/2018 LYSSA SWEET MD, Ot 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 04/29/2018 LYSSA SWEET MD, Ot I10 ESSENTIAL (PRIMARY) HYPERTENSION 04/29/2018 LYSSA SWEET MD, Ot I25.10 ATHSCL HEART DISEASE OF [place] CORONARY 04/29/2018 LYSSA SWEET MD, Ot I65.29 OCCLUSION AND STENOSIS OF UNSPECIFIED CA 04/29/2018 LYSSA SWEET MD, Ot I69.398 OTHER SEQUELAE OF CEREBRAL INFARCTION 04/29/2018 LYSSA SWEET MD, Ot K21.9 GASTRO-ESOPHAGEAL REFLUX DISEASE WITHOUT 04/29/2018 LYSSA SWEET MD, Ot M19.91 PRIMARY OSTEOARTHRITIS, UNSPECIFIED SITE 04/29/2018 LYSSA SWEET MD, Ot R50.9 FEVER, UNSPECIFIED 04/29/2018 LYSSA SWEET MD, Ot R53.82 CHRONIC FATIGUE, UNSPECIFIED 04/29/2018 LYSSA SWEET MD, Ot S00.03XA CONTUSION OF SCALP, INITIAL ENCOUNTER 04/29/2018 LYSSA SWEET MD, Ot W19.XXXA UNSPECIFIED FALL, INITIAL ENCOUNTER 04/29/2018 LYSSA SWEET MD, Ot Z79.01 [facility] (CURRENT) USE OF ANTICOAGULANT 04/29/2018 LYSSA SWEET MD, Ot Z79.84 [facility] (CURRENT) USE OF ORAL HYPOGLYC 04/29/2018 LYSSA SWEET MD, Ot Z91.19 PATIENT'S NONCOMPLIANCE W [facility] MEDICAL TR 04/29/2018 LYSSA SWEET MD, Ot Z95.0 PRESENCE OF CARDIAC PACEMAKER 10/23/2018 YOHANA SCHMIDT MD, Ot I10 ESSENTIAL (PRIMARY) HYPERTENSION 10/23/2018 YOHANA SCHMIDT MD, Ot I25.10 ATHSCL HEART DISEASE OF [place] CORONARY 10/23/2018 YOHANA SCHMIDT MD Ot I34.0 NONRHEUMATIC MITRAL (VALVE) INSUFFICIENC 10/23/2018 YOHANA SCHMIDT MD, Ot I65.29 OCCLUSION AND STENOSIS OF UNSPECIFIED CA 10/23/2018 YOHANA SCHMIDT MD Ot R06.09 OTHER FORMS OF DYSPNEA 10/27/2018 YOHANA SCHMIDT MD Ot I10 ESSENTIAL (PRIMARY) HYPERTENSION 10/27/2018 YOHANA SCHMIDT MD Ot I25.10 ATHSCL HEART DISEASE OF [place] CORONARY 10/27/2018 YOHANA SCHMIDT MD, Ot I34.0 NONRHEUMATIC MITRAL (VALVE) INSUFFICIENC 10/27/2018 YOHANA SCHMIDT MD, Ot I65.29 OCCLUSION AND STENOSIS OF UNSPECIFIED CA 10/27/2018 YOHANA SCHMIDT MD Ot R06.09 OTHER FORMS OF DYSPNEA Procedures Code Description [place] [address] INR (IN HOUSE) 04/10/2012 57605 INR (IN HOUSE) 08/19/2012 57661 A1C (IN-HOUSE) 08/22/2012 91582 INR (IN HOUSE) 09/22/2012 Malgorzata Najera Edwin 09/23/2012 64271 INR (IN HOUSE) 12/29/2012 05498 A1C (IN-HOUSE) 12/29/2012 48436 JOINT INJECTION- LARGE JOINT (SPECIFY MEDCIN DESCRIPTION) 01/22/2013 67244 PT/INR 01/28/2013 82221 INR (IN HOUSE) 02/05/2013 83282 CAPILLARY BLOOD DRAW 07/09/2013 09912 INR (IN HOUSE) 07/09/2013 45797 A1C (IN-HOUSE) 07/09/2013 30296 INR (IN HOUSE) 08/12/2013 59120 PSYCH DIAGNOSTIC EVALUATION 08/13/2013 34055 PSYTX PT&/FAMILY 45 MINUTES 09/11/2013 64007 INR (IN HOUSE) 09/11/2013 04686 PSYTX PT&/FAMILY 45 MINUTES 09/24/2013 03117 PSYTX PT&/FAMILY 45 MINUTES 10/16/2013 50438 A1C (IN-HOUSE) 04/28/2014 Results Test Result Range CBC - 02/08/17 09:15 WBC 9.4 x10E3/uL [...] Automated erythrocyte mean corpuscular hemoglobin concentration measurement (mass/volume) 33 g/dL 32-36 Automated erythrocyte distribution width ratio 16.5 % 10.0- 14.5 Automated blood platelet count (count/volume) 384 10*3/uL [...] Blood monocytes automated count (number/volume) 1.3 10*3 0.0- 1.0 Automated eosinophil count 0.0 10*3/uL 0.0-0.3 Automated blood basophil count (count/volume) 0.0 10*3/uL 0.0-0.1 Blood lactic acid measurement (moles/volume) - 11/04/17 07:11 Blood lactic acid measurement (moles/volume) 1.65 mmol/L 0.50- 2.00 Comprehensive metabolic panel - 11/04/17 07:11 Serum [...] Serum or plasma aspartate aminotransferase measurement (enzymatic activity/volume) 25 U/L 5-34 Serum or plasma alanine aminotransferase measurement (enzymatic activity/volume) 29 U/L 0-55 Serum or plasma protein [...] gravity of urine by test strip 1.020 1.016-1.022 Urine protein assay by test strip, semi-quantitative [...] sediment leukocyte count by microscopy (number/high power field) [HPF] NRG Bacteria detection in urine sediment [...] blood base excess by calculation -6.4 mmol/L -2.5-2.5 Arterial blood oxygen saturation measurement 93 % [...] resistant Staphylococcus aureus (MRSA) screening culture - 11/04/17 10:30 Methicillin resistant Staphylococcus aureus (MRSA) screening culture NEG NRG PT panel in platelet poor plasma by coagulation assay - 11/04/17 14:42 Prothrombin time (PT) in platelet poor plasma by coagulation assay 80.8 s 12.2-14.7 INR in platelet poor plasma or blood by coagulation assay 10.0 0.8-1.4 Capillary blood glucose measurement by glucometer (mass/volume) - 11/04/17 16:15 Capillary blood glucose measurement by glucometer (mass/volume) 130 mg/dL 70-110 Capillary blood glucose measurement by glucometer (mass/volume) - 11/04/17 21:56 Capillary blood glucose measurement by glucometer (mass/volume) [...] Automated erythrocyte mean corpuscular hemoglobin concentration measurement (mass/volume) 31 g/dL 32-36 Automated erythrocyte distribution width ratio 15.8 % 10.0- 14.5 Automated blood platelet count (count/volume) 280 10*3/uL [...] Blood monocytes automated count (number/volume) 0.2 10*3 0.0- 1.0 Automated eosinophil count 0.0 10*3/uL 0.0-0.3 Automated [...] Blood hemoglobin A1C measurement (mass/volume) 7.1 % 4.0-5.6 MEAN BLOOD GLUCOSE 157 % <=126 Capillary blood glucose measurement by glucometer (mass/volume) - 11/05/17 11:29 Capillary blood glucose measurement by glucometer (mass/volume) 187 mg/dL 70-110 Capillary blood glucose measurement by glucometer (mass/volume) - 11/05/17 15:57 Capillary blood glucose measurement by glucometer (mass/volume) 164 mg/dL 70-110 Capillary blood glucose measurement by glucometer (mass/volume) - 11/05/17 20:36 Capillary blood glucose measurement by glucometer (mass/volume) 236 mg/dL 70-110 Capillary blood glucose measurement by glucometer (mass/volume) - 11/06/17 05:31 Capillary blood glucose measurement by glucometer (mass/volume) [...] Automated erythrocyte mean corpuscular hemoglobin concentration measurement (mass/volume) 32 g/dL 32-36 Automated erythrocyte distribution width ratio 15.7 % 10.0- 14.5 Automated blood platelet count (count/volume) 307 10*3/uL [...] Blood monocytes automated count (number/volume) 0.6 10*3 0.0- 1.0 Automated eosinophil count 0.0 10*3/uL 0.0-0.3 Automated [...] plasma C reactive protein measurement (mass/volume) 5.87 mg/dL 0.00-0.50 Blood manual differential performed detection - [...] glucose measurement by glucometer (mass/volume) - 11/06/17 10:59 Capillary blood glucose measurement by glucometer (mass/volume) 173 mg/dL 70-110 Capillary blood glucose measurement by glucometer (mass/volume) - 11/06/17 15:54 Capillary blood glucose measurement by glucometer (mass/volume) 225 mg/dL 70-110 Capillary blood glucose measurement by glucometer (mass/volume) - 11/06/17 20:33 Capillary blood glucose measurement by glucometer (mass/volume) [...] Automated erythrocyte mean corpuscular hemoglobin concentration measurement (mass/volume) 32 g/dL 32-36 Automated erythrocyte distribution width ratio 16.0 % 10.0- 14.5 Automated blood platelet count (count/volume) 330 10*3/uL [...] Blood monocytes automated count (number/volume) 0.6 10*3 0.0- 1.0 Automated eosinophil count 0.0 10*3/uL 0.0-0.3 Automated [...] plasma C reactive protein measurement (mass/volume) 2.98 mg/dL 0.00-0.50 Capillary blood glucose measurement by glucometer (mass/volume) - 11/07/17 05:15 Capillary blood glucose measurement by glucometer (mass/volume) 191 mg/dL 70-110 Capillary blood glucose measurement by glucometer (mass/volume) - 11/07/17 10:57 Capillary blood glucose measurement by glucometer (mass/volume) 223 mg/dL 70-110 Complete blood count (CBC) with automated white blood cell (WBC) differential - 04/28/18 04:52 Blood leukocytes automated count (number/volume) 10.8 10*3/uL 4.3-11.0 Blood erythrocytes automated count (number/volume) 5.10 10*6/uL 4.35-5.85 Venous blood hemoglobin measurement (mass/volume) 12.9 g/dL 13.3-17.7 Blood hematocrit (volume fraction) 41 % 40-54 Automated erythrocyte mean corpuscular volume 79 [foz_us] 80-99 Automated erythrocyte mean corpuscular hemoglobin (mass per erythrocyte) 25 pg 25-34 Automated erythrocyte mean corpuscular hemoglobin concentration measurement (mass/volume) 32 g/dL 32-36 Automated erythrocyte distribution width ratio 18.5 % 10.0- 14.5 Automated blood platelet count (count/volume) 118 10*3/uL 130-400 Automated blood platelet mean volume measurement 10.9 [foz_us] 7.4-10.4 Automated blood neutrophils/100 leukocytes 77 % 42-75 Automated blood lymphocytes/100 leukocytes 12 % 12-44 Blood monocytes/100 leukocytes 11 % 0-12 Automated blood eosinophils/100 leukocytes 0 % 0-10 Automated blood basophils/100 leukocytes 0 % 0-10 Blood neutrophils automated count (number/volume) 8.3 10*3 1.8-7.8 Blood lymphocytes automated count (number/volume) 1.2 10*3 1.0-4.0 Blood monocytes automated count (number/volume) 1.2 10*3 0.0- 1.0 Automated eosinophil count 0.0 10*3/uL 0.0-0.3 Automated blood basophil count (count/volume) 0.0 10*3/uL 0.0-0.1 PT panel in platelet poor plasma by coagulation assay - 04/28/18 04:52 Prothrombin time (PT) in platelet poor plasma by coagulation assay 16.8 s 12.2-14.7 INR in platelet poor plasma or blood by coagulation assay 1.4 0.8-1.4 Activated partial thromboplastin time (aPTT) in platelet poor plasma bycoagulation assay - 04/28/18 04:52 Activated partial thromboplastin time (aPTT) in platelet poor plasma bycoagulation assay 35 s 24-35 Blood lactic acid measurement (moles/volume) - 04/28/18 04:52 Blood lactic acid measurement (moles/volume) 1.55 mmol/L 0.50- 2.00 Comprehensive metabolic panel - 04/28/18 04:52 Serum or plasma sodium measurement (moles/volume) 134 mmol/L 135-145 Serum or plasma potassium measurement (moles/volume) 4.1 mmol/L 3.6-5.0 Serum or plasma chloride measurement (moles/volume) 102 mmol/L 98-107 Carbon dioxide 21 mmol/L 21-32 Serum or plasma anion gap determination (moles/volume) 11 mmol/L 5-14 Serum or plasma urea nitrogen measurement (mass/volume) 23 mg/dL 7-18 Serum or plasma creatinine measurement (mass/volume) 1.55 mg/dL 0.60-1.30 Serum or plasma urea nitrogen/creatinine mass ratio 15 NRG Serum or plasma creatinine measurement with calculation of estimated glomerular filtration rate 44 NRG Serum or plasma glucose measurement (mass/volume) 181 mg/dL 70-105 Serum or plasma calcium measurement (mass/volume) 8.8 mg/dL 8.5-10.1 Serum or plasma total bilirubin measurement (mass/volume) 0.7 mg/dL 0.1-1.0 Serum or plasma alkaline phosphatase measurement (enzymatic activity/volume) 57 U/L 40-136 Serum or plasma aspartate aminotransferase measurement (enzymatic activity/volume) 24 U/L 5-34 Serum or plasma alanine aminotransferase measurement (enzymatic activity/volume) 17 U/L 0-55 Serum or plasma protein measurement (mass/volume) 7.2 g/dL 6.4-8.2 Serum or plasma albumin measurement (mass/volume) 4.1 g/dL 3.2-4.5 CALCIUM CORRECTED 8.7 mg/dL 8.5-10.1 Bacterial blood culture - 04/28/18 04:52 QUANTITY OF GROWTH . NRG Bacterial blood culture SEE COMMEN NRG Streptococcus pyogenes antigen detection - 04/28/18 04:59 Streptococcus pyogenes antigen detection NEGATIVE NEGATIVE Influenza virus A and B antigen detection - 04/28/18 04:59 FLU RESULT NEGATIVE FOR INFLUENZA A AND B ANTIGENS BY IA NRG Bacterial throat culture - 04/28/18 04:59 Bacterial throat culture NBS NRG Complete urinalysis with reflex to culture - 04/28/18 05:22 Urine color determination YELLOW NRG Urine clarity determination CLEAR NRG Urine pH measurement by test strip 5 5-9 Specific gravity of urine by test strip 1.015 1.016-1.022 Urine protein assay by test strip, semi-quantitative 3+ NEGATIVE Urine glucose detection by automated test strip NEGATIVE NEGATIVE Erythrocytes detection in urine sediment by light microscopy 4+ NEGATIVE Urine ketones detection by automated test strip 1+ NEGATIVE Urine nitrite detection by test strip NEGATIVE NEGATIVE Urine total bilirubin detection by test strip NEGATIVE NEGATIVE Urine urobilinogen measurement by automated test strip (mass/volume) NORMAL NORMAL Urine leukocyte esterase detection by dipstick NEGATIVE NEGATIVE Automated urine sediment erythrocyte count by microscopy (number/high power field) [HPF] NRG Automated urine sediment leukocyte count by microscopy (number/high power field) NONE NRG Bacteria detection in urine sediment by light microscopy TRACE NRG Squamous epithelial cells detection in urine sediment by light microscopy 0-2 NRG Crystals detection in urine sediment by light microscopy PRESENT NRG Casts detection in urine sediment by light microscopy PRESENT NRG Mucus detection in urine sediment by light microscopy SMALL NRG Complete urinalysis with reflex to culture NO NRG Amorphous sediment detection in urine sediment by light microscopy FEW FELIPA URATES NRG Hyaline casts detection in urine sediment by light microscopy 2-5 NRG Bacterial urine culture - 04/28/18 05:22 Bacterial urine culture NG NRG Bacterial blood culture - 04/28/18 06:20 Bacterial blood culture NG NRG Capillary blood glucose measurement by glucometer (mass/volume) - 04/28/18 18:09 Capillary blood glucose measurement by glucometer (mass/volume) 205 mg/dL 70-110 Complete blood count (CBC) with automated white blood cell (WBC) differential - 04/29/18 05:40 Blood leukocytes automated count (number/volume) 9.0 10*3/uL 4.3-11.0 Blood erythrocytes automated count (number/volume) 4.78 10*6/uL 4.35-5.85 Venous blood hemoglobin measurement (mass/volume) 12.1 g/dL 13.3-17.7 Blood hematocrit (volume fraction) 39 % 40-54 Automated erythrocyte mean corpuscular volume 81 [foz_us] 80-99 Automated erythrocyte mean corpuscular hemoglobin (mass per erythrocyte) 25 pg 25-34 Automated erythrocyte mean corpuscular hemoglobin concentration measurement (mass/volume) 31 g/dL 32-36 Automated erythrocyte distribution width ratio 18.8 % 10.0- 14.5 Automated blood platelet count (count/volume) 102 10*3/uL 130-400 Automated blood platelet mean volume measurement 11.6 [foz_us] 7.4-10.4 Automated blood neutrophils/100 leukocytes 65 % 42-75 Automated blood lymphocytes/100 leukocytes 22 % 12-44 Blood monocytes/100 leukocytes 13 % 0-12 Automated blood eosinophils/100 leukocytes 0 % 0-10 Automated blood basophils/100 leukocytes 0 % 0-10 Blood neutrophils automated count (number/volume) 5.8 10*3 1.8-7.8 Blood lymphocytes automated count (number/volume) 2.0 10*3 1.0-4.0 Blood monocytes automated count (number/volume) 1.1 10*3 0.0- 1.0 Automated eosinophil count 0.0 10*3/uL 0.0-0.3 Automated blood basophil count (count/volume) 0.0 10*3/uL 0.0-0.1 Whole blood basic metabolic panel - 04/29/18 05:40 Serum or plasma sodium measurement (moles/volume) 138 mmol/L 135-145 Serum or plasma potassium measurement (moles/volume) 3.8 mmol/L 3.6-5.0 Serum or plasma chloride measurement (moles/volume) 110 mmol/L 98-107 Carbon dioxide 16 mmol/L 21-32 Serum or plasma anion gap determination (moles/volume) 12 mmol/L 5-14 Serum or plasma urea nitrogen measurement (mass/volume) 19 mg/dL 7-18 Serum or plasma creatinine measurement (mass/volume) 1.20 mg/dL 0.60-1.30 Serum or plasma urea nitrogen/creatinine mass ratio 16 NRG Serum or plasma creatinine measurement with calculation of estimated glomerular filtration rate 60 NRG Serum or plasma glucose measurement (mass/volume) 169 mg/dL 70-105 Serum or plasma calcium measurement (mass/volume) 8.5 mg/dL 8.5-10.1 CMP - 10/02/18 12:36 GLUCOSE 119 mg/dL 65-99 UREA NITROGEN (BUN) 27 mg/dL 7-25 CREATININE 1.76 mg/dL 0.70-1.18 eGFR NON-AFR. [place] 38 mL/min/1.73m2 > OR=60 eGFR 43 mL/min/1.73m2 > OR=60 BUN/CREATININE RATIO 15 (calc) 6-22 SODIUM 143 mmol/L 135-146 POTASSIUM 4.7 mmol/L 3.5-5.3 CHLORIDE 109 mmol/L 98-110 CARBON DIOXIDE 25 mmol/L 20-32 CALCIUM 9.4 mg/dL 8.6-10.3 PROTEIN, TOTAL 6.6 g/dL 6.1-8.1 ALBUMIN 4.1 g/dL 3.6-5.1 GLOBULIN 2.5 g/dL (calc) 1.9-3.7 ALBUMIN/GLOBULIN RATIO 1.6 (calc) 1.0-2.5 BILIRUBIN, TOTAL 0.5 mg/dL 0.2-1.2 ALKALINE PHOSPHATASE 69 U/L 40-115 AST 12 U/L 10-35 ALT 9 U/L 9-46 PT/INR - 10/02/18 12:36 INR 2.2 NRG PT 21.9 sec 9.0-11.5 TSH - 10/02/18 12:36 TSH 0.90 mIU/L 0.40-4.50 LIPID PANEL - 10/24/18 11:41 CHOLESTEROL, TOTAL 111 mg/dL <200 HDL CHOLESTEROL 41 mg/dL >40 TRIGLYCERIDES 215 mg/dL <150 LDL-CHOLESTEROL 42 mg/dL (calc) NRG CHOL/HDLC RATIO 2.7 (calc) <5.0 NON HDL CHOLESTEROL 70 mg/dL (calc) <130 CMP - 10/24/18 11:41 GLUCOSE 141 mg/dL 65-99 UREA NITROGEN (BUN) 33 mg/dL 7-25 CREATININE 1.44 mg/dL 0.70-1.18 eGFR NON-AFR. [place] 48 mL/min/1.73m2 > OR=60 eGFR 55 mL/min/1.73m2 > OR=60 BUN/CREATININE RATIO 23 (calc) 6-22 SODIUM 142 mmol/L 135-146 POTASSIUM 4.3 mmol/L 3.5-5.3 CHLORIDE 109 mmol/L 98-110 CARBON DIOXIDE 23 mmol/L 20-32 CALCIUM 9.2 mg/dL 8.6-10.3 PROTEIN, TOTAL 6.8 g/dL 6.1-8.1 ALBUMIN 4.1 g/dL 3.6-5.1 GLOBULIN 2.7 g/dL (calc) 1.9-3.7 ALBUMIN/GLOBULIN RATIO 1.5 (calc) 1.0-2.5 BILIRUBIN, TOTAL 0.3 mg/dL 0.2-1.2 ALKALINE PHOSPHATASE 71 U/L 40-115 AST 14 U/L 10-35 ALT 11 U/L 9-46 CBC - 10/24/18 11:41 WHITE BLOOD CELL COUNT 10.9 Thousand/uL 3.8-10.8 RED BLOOD CELL COUNT 5.05 Million/uL 4.20-5.80 HEMOGLOBIN 13.7 g/dL 13.2-17.1 HEMATOCRIT 45.4 % 38.5-50.0 MCV 89.9 fL 80.0-100.0 MCH 27.1 pg 27.0-33.0 MCHC 30.2 g/dL 32.0-36.0 RDW 16.5 % 11.0-15.0 PLATELET COUNT 190 Thousand/uL 140-400 MPV 11.6 fL 7.5-12.5 ABSOLUTE NEUTROPHILS 8622 cells/uL 0761-0532 ABSOLUTE LYMPHOCYTES 1635 cells/uL 850-3900 ABSOLUTE MONOCYTES 545 cells/uL 200-950 ABSOLUTE EOSINOPHILS 65 cells/uL 15-500 ABSOLUTE BASOPHILS 33 cells/uL 0-200 NEUTROPHILS 79.1 % NRG LYMPHOCYTES 15.0 % NRG MONOCYTES 5.0 % NRG EOSINOPHILS 0.6 % NRG BASOPHILS 0.3 % NRG PSA - 10/24/18 11:41 PSA, TOTAL 0.2 ng/mL < OR=4.0 TSH - 10/24/18 11:41 TSH 3.51 mIU/L 0.40-4.50 Encounters ACCT No. Visit Date/Time Discharge Status Pt. Type Provider Facility Loc./Unit Complaint [id number] 04/28/2014 09:30:00 04/28/2014 23:59:59 CLS Outpatient MARLEY MCGRATH APRN [id number] 04/28/2014 09:30:00 04/28/2014 23:59:59 CLS Outpatient MARLEY MCGRATH APRN Rubio [id number] 10/15/2013 13:50:00 10/15/2013 23:59:59 CLS Outpatient JAVIER GOMEZ PHD [id number] 09/11/2013 11:50:00 09/11/2013 23:59:59 CLS Outpatient ALCIDES MCCLURENMARLEY Rubio [id number] 08/13/2013 10:57:00 08/13/2013 23:59:59 CLS Outpatient JAVIER GOMEZ PHD [id number] 08/12/2013 12:29:00 08/12/2013 23:59:59 CLS Outpatient MARLEY MCGRATH APRN Rubio [id number] 07/09/2013 09:48:00 07/09/2013 23:59:59 CLS Outpatient MARLEY MCGRATH APRN Rubio [id number] 02/05/2013 10:59:00 02/05/2013 23:59:59 CLS Outpatient MARLEY MGCRATH APRN Rubio [id number] 01/28/2013 11:09:00 01/28/2013 23:59:59 CLS Outpatient DAR DANIELS DO [id number] 01/22/2013 14:49:00 01/22/2013 23:59:59 CLS Outpatient DAR DANIELS DO [id number] 04/10/2012 11:18:00 04/10/2012 23:59:59 CLS Outpatient ALCIDES MCCLURENMARLEY Rubio [id number] 02/05/2012 08:52:00 02/05/2012 23:59:59 CLS Outpatient MARLEY MCGRATH APRN Rubio [id number] 09/24/2013 13:53:00 Document Registration [id number] 12/29/2012 11:17:00 Document Registration [id number] 09/22/2012 14:12:00 Document Registration [id number] 09/22/2012 14:12:00 Document Registration [id number] 08/22/2012 12:16:00 Document Registration [id number] 08/22/2012 12:16:00 Document Registration [id number] 08/19/2012 09:46:00 Document Registration [id number] 10/21/2018 12:24:00 10/21/2018 23:59:59 CLS Outpatient YOHANA SCHMIDT MD [facility] CARD CAD,CAROTID ARTERY STENOSIS,HTN,DYSPNEA [id number] 04/28/2018 06:57:00 04/29/2018 10:05:00 DIS Inpatient LYSSA SWEET MD [facility] 4TH FALL; SEPSIS;PHYSICAL DEBILITY [id number] 11/04/2017 09:20:00 11/07/2017 15:10:00 DIS Inpatient JESSIEJOSH CAPELLAN ITZEL E [facility] 4TH PNA BILAT SUPRATHERAPEUTIC INR [id number] 09/02/2017 07:52:00 09/02/2017 23:59:59 CLS Outpatient YOHANA SCHMIDT MD [facility] CARD [id number] ABN STRESS TEST [id number] 11/16/2015 07:03:00 11/17/2015 11:15:00 DIS Outpatient YOHANA SCHMIDT MD [facility] CATH SUPA,HTN,HLP,CAD [id number] 07/27/2015 07:14:00 07/27/2015 14:00:00 DIS Outpatient YOHANA SCHMIDT MD [facility] [address] ABNORMAL STRESS TEST,CAD,HTN,HLP [id number] 07/13/2015 08:09:00 07/13/2015 23:59:59 CLS Outpatient YOHANA SCHMIDT MD [facility] CAD,CAROTID ARTERY STENOSIS,HTN,SICK SINUS SYNDROM [id number] 07/07/2015 10:26:00 07/07/2015 23:59:59 CLS Outpatient YOHANA SCHMIDT MD [facility] CAD,CAROTID ARTERY STENOSIS,SICK SINUS SYNDROME [id number] 02/28/2015 08:30:00 02/28/2015 23:59:59 CLS Outpatient MARLEY MCGRATH [facility] LAB MEDICATION HIGH RISK [id number] 04/24/2014 22:16:00 04/25/2014 00:30:00 DIS Emergency ANY CEVALLOS, YOSEPH Moran [facility] ER FALL;HEAD LAC [id number] 02/18/2013 12:08:00 02/18/2013 13:59:00 DIS Emergency SAMIR CEVALLOS, MARTHA Bergeron [facility] ER LEFT FLANK PAIN [id number] 01/21/2013 06:51:00 01/21/2013 14:00:00 DIS Outpatient YOHANA SCHMIDT MD [facility] CATH CAD,ABN STRESS,HTN,HLP,SSS,PPM,PAF [id number] 01/13/2013 12:19:00 01/13/2013 23:59:59 CLS Outpatient YOHANA SCHMIDT MD [facility] RAD CAD,HTN [id number] 01/09/2013 08:11:00 01/09/2013 23:59:59 CLS Outpatient YOHANA SCHMIDT MD [facility] CARD CAD,HTN [id number] 08/17/2012 20:45:00 Document Registration [id number] 03/15/2011 19:28:00 Document Registration [id number] 10/24/2018 11:40:00 10/24/2018 23:59:59 CLS Outpatient MARLEY MCGRATH APRN [facility] [id number] 10/24/2018 11:40:00 Document Registration [id number] 10/02/2018 12:40:00 Document Registration [id number] 02/08/2017 09:00:00 Document Registration
--- NOTE | 2018-11-02 21:48 | Diagnostic Imaging Report ---
INDICATION: Fall and right knee pain. Time of exam: 9:29 PM 3 views of the right knee demonstrate medial and patellofemoral compartmental degenerative change, joint space narrowing and marginal spurring. Lateral compartment is maintained. No fracture or dislocation is seen. There is a large amount of suprapatellar fullness on the lateral view consistent with a large joint effusion. IMPRESSION: Degenerative change with large joint effusion. Dictated by: Dictated on workstation # [id number]
[2018-11-02] MEDS ORDERED: HYDROcodone/APAP 5 MG/325 MG (LORTAB) TAB PO ONE (22:00)
--- NOTE | 2018-11-02 22:00 | NUR ---
i let dr know about the 2 temps
--- NOTE | 2018-11-02 22:08 | ED Lower Extremity ---
General Chief Complaint: Lower Extremity Stated Complaint: RT KNEE PAIN Nursing Triage Note: right knee pain/ swelling Nursing Sepsis Screen: No Definite Risk Source: patient, spouse Exam Limitations: no limitations History of Present Illness Date Seen by Provider: Nov 02, 2018 Time Seen by Provider: 22:04 Initial Comments 73 yo male patient presents for c/o rt knee pain and swelling since Saturday. Patient states he went to the gym on Saturday to "work on his lower body" by doing leg extension. He denies any known injury at that time. HE reports waking up Saturday with right knee pain and swelling. reports patient's swelling has extended up the thigh and down the right calf to the ankle. Patient denies any thigh, distal leg, or ankle pain. Patient does take Coumadin and states that has been "a little while" and she is having his Coumadin level checked. reports patient has been falling frequently. Patient states falls occurred due to the lower extremities giving out, but he states that if he could work out his lower body more frequently he thinks this would help. Patient does admit to falling backwards 3 days ago after losing his balance and hitting the back of his head on a TV stand. He denies loss of consciousness, headache, dizziness, neck pain, back pain. Denies nausea, vomiting. He states "I didn't even have a knot on my head." Onset: other (5 days) Pain/Injury Location: right knee Method of Injury: unknown Modifying Factors: Worse With Movement, Worse With Other (Patient unable to ambulate d/t rt knee swelling and pain) Allergies and Home Medications Allergies Coded Allergies: Sulfa (Sulfonamide Antibiotics) (Verified Allergy, Unknown, 03/12/07) Home Medications Amlodipine Besylate 10 Mg Tablet, 10 MG PO DAILY, (Reported) Clonazepam 1 Mg Tablet, 1 MG PO TID PRN for ANXIETY, (Reported) Clonidine Hcl 0.2 Mg Tablet, 0.2 MG PO BID, (Reported) Donepezil HCl 5 Mg Tablet, 5 MG PO HS Prescribed by: MICHAEL NAVA on 04/28/18 [id number] Enalapril Maleate 5 Mg Tablet, 5 MG PO BID, (Reported) Hydrocodone/Acetaminophen 1 Each Tablet, 1 TAB PO Q6H PRN for PAIN, (Reported) Lovastatin 20 Mg Tablet, 20 MG PO HS, (Reported) Metformin HCl 500 Mg Tablet, 500 MG PO DAILY, (Reported) Metformin HCl 500 Mg Tablet, 1,000 MG PO HS, (Reported) TAKES 2 (500 MG) TABLETS Paroxetine Hcl 40 Mg Tablet, 40 MG PO DAILY, (Reported) Pioglitazone HCl 30 Mg Tablet, 30 MG PO DAILY, (Reported) Potassium Chloride 10 Meq Tablet.sa, 10 MEQ PO DAILY, (Reported) Topiramate 50 Mg Tablet, 50 MG PO BID, (Reported) Warfarin Sodium 6 Mg Tablet, 6 MG PO UD EVERY SATURDAY, SATURDAY AND SATURDAY Prescribed by: MICHAEL NAVA on 04/28/181732 Warfarin Sodium 6 Mg Tablet, 3 MG PO UD EVERY SATURDAY, SATURDAY, SATURDAY AND SATURDAY Prescribed by: MICHAEL NAVA on 04/28/181732 Patient Home Medication List Home Medication List Reviewed: Yes Review of Systems Constitutional: No chills, No diaphoresis, No dizziness, No fever, No malaise; weakness (generalized BLE weakness) EENTM: No ear discharge, No hearing loss, No ear pain, No blurred vision, No eye pain, No hoarseness, No mouth pain, No mouth swelling, No nose congestion, No nose pain, No throat pain, No throat swelling Respiratory: No cough, No dyspnea on exertion, No short of breath, No stridor, No wheezing Cardiovascular: No chest pain, No palpitations, No syncope Gastrointestinal: no symptoms reported Genitourinary: no symptoms reported Musculoskeletal: No back pain; joint pain (right knee pain), joint swelling (RLE swelling); No neck pain Skin: no symptoms reported Psychiatric/Neurological: No Symptoms Reported All Other Systems Reviewed Negative Unless Noted: Yes (Negative excepted noted.) Past Nerlqvn-Fuxbnc-Kewnii Hx Past Med/Social Hx: Reviewed Nursing Past Med/Soc Hx Patient Social History Alcohol Use: Occasionally Uses Recreational Drug Use: No Smoking Status: Never a Smoker 2nd Hand Smoke Exposure: No Recent Foreign Travel: No Contact w/Someone Who Travel: No Recent Infectious Disease Expo: No Recent Hopitalizations: No Physical Abuse: No Sexual Abuse: No Immunizations Up To Date Tetanus Booster (TDap): Unknown Date of Pneumonia Vaccine: Jan 22, 2008 Date of Influenza Vaccine: Mar 10, 2018 Seasonal Allergies Seasonal Allergies: No Past Medical History Surgeries: Yes Orthopedic, Pacemaker Respiratory: Yes Pneumonia, Sleep Apnea Cardiac: Yes (PACEMAKER) Neurological: Yes Stroke Reproductive Disorders: No Sexually Transmitted Disease: No Genitourinary: Yes Kidney Stones Gastrointestinal: No Musculoskeletal: No Endocrine: Yes Diabetes, Non-Insulin dep HEENT: No Cancer: No Psychosocial: Yes Anxiety, Depression Integumentary: No Blood Disorders: No Adverse Reaction/Blood Tranf: No Family Medical History Reviewed Nursing Family Hx Cardiovascular disease 19 MOTHER No Pertinent Family Hx Physical Exam Vital Signs Vital Signs - First Documented 11/02/18 21:02 Temp 98.5 Pulse 84 Resp 20 B/P (MAP) 152/90 (110) Pulse Ox 92 O2 Delivery Room Air Capillary Refill : Less Than 3 Seconds Height, Weight, BMI Height: 5'9.00" Weight: 226lbs. 5.0oz. [id number]; 34.9 BMI Method:Stated General Appearance: WD/WN, no apparent distress HEENT: PERRL/EOMI, normal ENT inspection, TMs normal, pharynx normal, other (normocephalic, atraumatic. no evidence of raccoon eyes or manning sign.) Neck: non-tender, full range of motion, supple, normal inspection Cardiovascular: normal peripheral pulses, regular rate, rhythm, no murmur Respiratory: lungs clear, normal breath sounds, no respiratory distress, no accessory muscle use Back: normal inspection, no vertebral tenderness Hips: bilateral hip non-tender, bilateral hip normal inspection, bilateral hip normal range of motion, bilateral hip no evidence of injury Legs: bilateral leg non-tender; left leg normal inspection; bilateral leg normal range of motion, bilateral leg no evidence of injury; right leg swelling (rt thigh and rt distal leg swelling without ecchymosis, deformity.) Knees: left knee non-tender, left knee normal range of motion; bilateral knee no evidence of injury (no abrasions or ecchymosis to the rt knee); right knee bone tenderness; left knee ecchymosis (subacute ecchymosis to the left anterior knee); right knee joint effusion, right knee pain, right knee soft tissue tenderness, right knee swelling; bilateral knee other (scabs noted to the bilat distal legs without cellulitis) Ankles: bilateral ankle non-tender, bilateral ankle normal inspection, bilateral ankle normal range of motion, bilateral ankle no evidence of injury Feet: bilateral foot non-tender, bilateral foot normal inspection, bilateral foot normal range of motion, bilateral foot no evidence of injury Neurologic/Tendon: normal sensation, normal motor functions, normal tendon functions, responds to pain, no evidence tendon injury Neurologic/Psychiatric: sledger II-XII nml as tested, no motor/sensory deficits, alert, normal mood/affect, oriented x 3 Skin: normal color, warm/dry; No cyanosis, No diaphoresis, No damp; ecchymosis (see left knee and bilat leg exam above ); No mottled Progress/Results/Core Measures Results/Orders Lab Results Laboratory Tests Test 11/02/18 22:53 Range/Units Prothrombin Time 60.7 *H 12.2-14.7 SEC INR Comment 6.6 *H 0.8-1.4 My Orders Orders - VANESA MG Knee, Right, 3 Views (11/02/18 21:21) Hydrocodone/Apap 5/325 Tablet (Lortab 5 (11/02/18 22:00) Protime With Inr (11/02/18 22:00) Medications Given in ED Current Medications Medications Dose Ordered Sig/Eris Route Start Time Stop Time Status Last Admin Dose Admin Acetaminophen/ Hydrocodone Bitart 1 tab ONCE ONCE PO 11/02/18 22:00 11/02/18 22:04 DC 11/02/18 22:11 1 TAB Vital Signs/I&O 11/02/18 11/02/18 21:02 23:27 Temp 98.5 98.5 Pulse 84 88 Resp 20 16 B/P (MAP) 152/90 (110) 182/96 (124) Pulse Ox 92 95 O2 Delivery Room Air Room Air Blood Pressure Mean: 110 Diagnostic Imaging Diagonstic Imaging: Xray Plain Films/CT/US/NM/MRI: knee Comments KNEE, RIGHT, 3 VIEWS INDICATION: Fall and right knee pain. Time of exam: 9:29 PM 3 views of the right knee demonstrate medial and patellofemoral compartmental degenerative change, joint space narrowing and marginal spurring. Lateral compartment is maintained. No fracture or dislocation is seen. There is a large amount of suprapatellar fullness on the lateral view consistent with a large joint effusion. IMPRESSION: Degenerative change with large joint effusion. Dictated by: Dictated on workstation # [id number] Reviewed: Reviewed by Me (radiology report reviewed) Departure Communication (Admissions) Time/Spoke to Admitting Phy: 00:25 Dr. Gasca Patient seen and evaluated. Right knee x-ray obtained as well as a PT/INR. states she is unable to care for patient at home. Patient did require 2 person assist to stand at bedside to use the urinal. Patient case was discussed with Dr. Gasca who graciously accepts patient to her medical service for further management of the elevated INR and for inpatient rehabilitation consult in the a.m for generalized LE weakness. Patient and both verbalize understanding and agree with plan for admission and possible need for inpatient rehabilitation. Plan for admission discussed with Dr. Herbert, she agrees with the plan of care. Impression Primary Impression: Supratherapeutic INR Additional Impressions: Left knee pain Qualified Codes: M25.562 - Pain in left knee generalized lower extremity weakness Frequent falls Disposition: ADMITTED INPATIENT Condition: Stable Admissions Decision to Admit Reason: Admit from ER (General) Decision to Admit/Date: Nov 03, 2018 Time/Decision to Admit Time: 00:30 Departure-Patient Inst. Referrals: DAR DANIELS DO (PCP) Primary Care Physician MARLEY MCGRATH (Family) Primary Care Physician VANESA MG Nov 02, 2018 22:08
--- NOTE | 2018-11-02 22:15 | NUR ---
peripherel stick by me for labs and to lab by me
[2018-11-02 23:14] LABS: INR 6.6 (0.8-1.4); PROTHROMBIN TIME PATIENT 60.7 SEC (12.2-14.7)
[2018-11-02 23:27] VITALS: BP 182/96
--- NOTE | 2018-11-02 23:28 | NUR ---
pt remains alert gcs 15. remains in the room. pt denies dyspnea and no acute sighns of dypnea noted.
[2018-11-03] VITALS (7 sets, daily range): BP systolic 107–160; BP diastolic 59–82
--- NOTE | 2018-11-03 00:42 | NUR ---
i called report to admit nurse martin. waiting for admit papers then someone will take pt to admit room.
--- NOTE | 2018-11-03 01:04 | NUR ---
i am taking pt to admit room now.
--- NOTE | 2018-11-03 01:10 | NUR ---
NATHAN BAKER admitted to room 405-1, with an admitting diagnosis of RLE PAIN AND SWELLING, FREQUENT FALLS, AND SUPRATHERAPEUTIC INR, on 11/03/18 from ED via CART, accompanied by AND ER NURSE.NATHAN BAKER introduced to surroundings, call light, bed controls, phone, TV, temperature control, lights, meal times, smoking policy, visitor policy, side rail policy, bathrooms and showers. Patient Rights given to patient in the handbook. NATHAN BAKER verbalizes understanding that [facility] is not responsible for the loss or damage to any personal effects or valuables that are kept in the patients posession during their hospitalization. NATHAN BAKER verbalizes understanding of Interdisciplinary Patient Education. Patient and/or family were informed about the Rapid Response Team and its purpose.
[2018-11-03] MEDS ORDERED: clonazePAM 1 MG (KlonoPIN) TAB PO PRN ×3 (02:45→14:30)
[2018-11-03 05:32] LABS: BASOPHILS % (AUTO) 0 % (0-10); EOSINOPHILS # (AUTO) 0.1 10^3/uL (0.0-0.3); EOSINOPHILS % (AUTO) 1 % (0-10); HEMATOCRIT 40 % (40-54); HEMOGLOBIN 12.4 G/DL (13.3-17.7); LYMPHOCYTES # (AUTO) 1.9 X 10^3 (1.0-4.0); LYMPHOCYTES % (AUTO) 16 % (12-44); MEAN CORPUSCULAR HEMOGLOBIN 27 PG (25-34); MEAN CORPUSCULAR HGB CONC 31 G/DL (32-36); MEAN CORPUSCULAR VOLUME 87 FL (80-99); MEAN PLATELET VOLUME 11.3 FL (7.4-10.4); MONOCYTES # (AUTO) 1.1 X 10^3 (0.0-1.0); MONOCYTES % (AUTO) 9 % (0-12); NEUTROPHILS # (AUTO) 8.6 X 10^3 (1.8-7.8); NEUTROPHILS % (AUTO) 74 % (42-75); PLATELET COUNT 190 10^3/uL (130-400); RED CELL DISTRIBUTION WIDTH 17.3 % (10.0-14.5); WHITE BLOOD COUNT 11.6 10^3/uL (4.3-11.0)
[2018-11-03 05:49] LABS: ALANINE AMINOTRANSFERASE 12 U/L (0-55); ALBUMIN 3.6 GM/DL (3.2-4.5); ALKALINE PHOSPHATASE 68 U/L (40-136); BILIRUBIN,TOTAL 0.5 MG/DL (0.1-1.0); BUN/CREATININE RATIO 16; CALCIUM 8.9 MG/DL (8.5-10.1); CARBON DIOXIDE 20 MMOL/L (21-32); CHLORIDE 108 MMOL/L (98-107); CREATININE SERUM 1.16 MG/DL (0.60-1.30); GFR ESTIMATED > 60; GLUCOSE 140 MG/DL (70-105); POTASSIUM 3.9 MMOL/L (3.6-5.0); SODIUM 139 MMOL/L (135-145); TOTAL PROTEIN 6.3 GM/DL (6.4-8.2)
[2018-11-03 05:56] LABS: PROTHROMBIN TIME PATIENT 63.7 SEC (12.2-14.7)
--- NOTE | 2018-11-03 06:09 | NUR ---
CRITICAL PT AND INR VALUE RECEIVED, DR ROSALES NOTIFIED. ONE TIME 5 MG VITAMIN K PO ORDERED
[2018-11-03] MEDS ORDERED: VITAMIN K 1 MG/ML ORAL SOLN 1 ML SYRINGE PO NR (06:48)
[2018-11-03] MEDS: PIOGLITAZONE 30MG (ACTOS) TAB PO SCH (07:08)
[2018-11-03] MEDS: metFORMIN 500 MG (GLUCOPHAGE) TAB PO SCH ×2 (07:08→17:24)
[2018-11-03] MEDS ORDERED: LOVASTATIN 20 MG PO SCH (09:00)
[2018-11-03] MEDS: ENALAPRIL 5 MG (VASOTEC) TAB PO SCH ×2 (09:11→21:12)
[2018-11-03] MEDS: cloNIDine 0.2 MG (CATAPRES) TAB PO SCH ×3 (09:11→21:13)
[2018-11-03] MEDS: AMIODARONE 200 MG (CORDARONE) TAB PO SCH ×2 (09:12→21:13)
[2018-11-03] MEDS: PARoxetine 20 MG (PAXIL) TAB PO SCH (09:12)
[2018-11-03] MEDS: HYDROcodone/APAP 5 MG/325 MG (LORTAB) TAB PO PRN ×3 (09:12→21:14)
[2018-11-03] MEDS: toPIRamate 25 MG (TOPAMAX) TAB PO SCH ×3 (09:12→21:13)
[2018-11-03] MEDS: amLODIPine 10 MG (NORVASC) TAB PO SCH (09:12)
--- NOTE | 2018-11-03 09:31 | Diagnostic Imaging Report ---
PROCEDURE: US right lower extremity venous. TECHNIQUE: Multiple real-time grayscale images were obtained over the right lower extremity in various projections. Additional spectral analysis and color Doppler duplex images were also obtained. INDICATION: Pain and swelling. FINDINGS: The right common femoral, superficial femoral, popliteal veins and tibial veins demonstrate normal response to compression, augmentation, and Valsalva. There are no right lower extremity fluid collections or masses. IMPRESSION: No evidence of deep vein thrombosis in the right lower extremity. Dictated by: Dictated on workstation # [id number]
--- NOTE | 2018-11-03 10:28 | History & Physical-Hospitalist ---
History of Present Illness HPI/Chief Complaint Chief Complaint: Right knee pain unable to ambulate with INR supra-therapeutic. HPI: This is a 73yoWM [address] Fairbanks cardiology and maintained on anticoagulation with Coumadin who presented to the ER with right knee pain and swelling unable to ambulate found to have INR 6.8 so Coumadin was held pt admitted repeat today was 7.0 pt given Vitamin K 5 mg po X1 and I will consult Orthopedic surgery Dr. Cardoso to evaluate the right knee pain and swelling. I have ordered PT and OT and have evaluated him for inpatient rehab. He can not ambulate or take care of himself at home although his is available to help he is a large man and can not be picked up by his when he's had some frequent falls. I will check INR tomorrow along with daily labs. Source: patient, family, RN/MD Exam Limitations: no limitations Date Seen 11/03/18 Time Seen by a Provider: 09:30 Attending Physician Delia Gasca MD PCP Chantell Lopez DO Referring Physician Date of Admission Nov 03, 2018 at 00:30 Home Medications & Allergies Home Medications Reviewed patient Home Medication Reconciliation performed by pharmacy medication reconciliations electrical laboratory technician and/or nursing. Patients Allergies have been reviewed. Allergies Allergies Coded Allergies Sulfa (Sulfonamide Antibiotics) (Verified Allergy, Unknown, 03/12/07) Past Ccefcej-Ekyrgy-Ddoguw Hx Past Med/Social Hx: Reviewed Nursing Past Med/Soc Hx, Reviewed and Corrections made Patient Social History Marrital Status: Employed/Student: retired Alcohol Use: Occasionally Uses Recreational Drug Use: No Smoking Status: Never a Smoker 2nd Hand Smoke Exposure: No Recent Foreign Travel: No Contact w/other who traveled: No Recent Hopitalizations: No Recent Infectious Disease Expo: No Immunizations Up To Date Tetanus Booster (TDap): Unknown Date of Pneumonia Vaccine: Jan 22, 2008 Date of Influenza Vaccine: Mar 10, 2018 Seasonal Allergies Seasonal Allergies: No Past Medical History Surgeries: Orthopedic, Pacemaker Cardiac: Atrial Fibrillation, High Cholesterol, Hypertension Neurological: Dementia, Stroke Reproductive: No Sexually Transmitted Disease: No Genitourinary: Bladder Infection, Kidney Stones Gastrointestinal: Chronic Constipation Musculoskeletal: Arthritis, Chronic Back Pain Endocrine: Diabetes, Non-Insulin dep Psychosocial: Anxiety, Depression History of Blood Disorders: No Adverse Reaction to Blood Zimmerman: No Family History Reviewed Nursing Family Hx Cardiovascular disease 19 MOTHER No Pertinent Family Hx Review of Systems Constitutional: see HPI, weakness, other (falls) EENTM: no symptoms reported Respiratory: no symptoms reported Cardiovascular: no symptoms reported Gastrointestinal: no symptoms reported Genitourinary: no symptoms reported Musculoskeletal: joint pain (right knee gives out) Psychiatric/Neurological: No Symptoms Reported All Other Systems Reviewed Negative Unless Noted: Yes Physical Exam Physical Exam Vital Signs Vital Signs - First Documented 11/02/18 11/03/18 21:02 08:30 Temp 98.5 Pulse 84 Resp 20 B/P (MAP) 152/90 (110) Pulse Ox 92 O2 Delivery Room Air O2 Flow Rate 0.00 Capillary Refill : Less Than 3 Seconds Height, Weight, BMI Height: 5'8.50" Weight: 229lbs. 6.4oz. 104.247548bk; 34.4 BMI Method:Stated General Appearance: No Apparent Distress, WD/WN, Chronically ill, Obese Eyes: Right Eye Normal Inspection, Right Eye PERRL HEENT: PERRL/EOMI, Normal ENT Inspection, Pharynx Normal, Moist Mucous Membranes Neck: Full Range of Motion, Normal Inspection, Non Tender Respiratory: Chest Non Tender, Lungs Clear, Normal Breath Sounds, No Accessory Muscle Use, No Respiratory Distress Cardiovascular: No Edema, No Gallop, No JVD, No Murmur, Normal Peripheral Pulses, Irregularly Irregular Gastrointestinal: Normal Bowel Sounds, No Organomegaly, No Pulsatile Mass, Non Tender, Soft Back: Normal Inspection, No CVA Tenderness, No Vertebral Tenderness Extremity: Normal Capillary Refill, Normal Inspection, Normal Range of Motion (except right knee noted decreased ROM due to pain and effusion), Non Tender, No Calf Tenderness, No Pedal Edema Neurologic/Psychiatric: Alert, Oriented x3, No Motor/Sensory Deficits, Normal Mood/Affect Skin: Normal Color, Warm/Dry Lymphatic: No Adenopathy Results Results/Procedures Labs Laboratory Tests 11/03/18 04:58 Patient resulted labs reviewed. Assessment/Plan Admission Diagnosis Assessment: Right knee hematoma effusion unable to ambulate Warfarin toxicity Pacemaker AF HTN HLP DM JOSE Dementia? Plan: Monitor INR Monitor BP Hold Coumadin Vit K po x 1 today Consult ortho and PT/OT, IRF? Admission Status: Observation Diagnosis/Problems Diagnosis/Problems (1) Effusion, right knee Status: Acute (2) Unable to ambulate Status: Acute (3) Supratherapeutic INR Status: Acute (4) Frequent falls Status: Acute (5) Chronic GERD Status: Chronic (6) Obesity (BMI 30-39.9) Status: Chronic (7) Hearing difficulty Status: Chronic Qualifiers: Laterality: bilateral Qualified Codes: H91.93 - Unspecified hearing loss, bilateral (8) History of stroke Status: Chronic (9) CAD (coronary artery disease), [place] coronary artery Status: Chronic Qualifiers: [place] vs. transplanted heart: [place] heart Associated angina: without angina Qualified Codes: I25.10 - Atherosclerotic heart disease of [place] coronary artery without angina pectoris Permanent Comment: Cardiac Cath 2015 50-60% distal LAD stenosis 50-60% stenosis at proximal and mid RCA 50% circumflex stenosis followed by aneurysmal dilation EF 60% Elevated left end diastolic pressure Last Edited By: Olena Toussaint on Nov 04, 2017 20:39 (10) Dyslipidemia Status: Chronic (11) Major depression, recurrent Status: Chronic Qualifiers: Active/Remission status: remission status unspecified Qualified Codes: F33.9 - Major depressive disorder, recurrent, unspecified (12) Pacemaker Status: Chronic Permanent Comment: placed in 2007 secondary to sick sinus syndrome; generator change 2015 Last Edited By: Olena Toussaint on Nov 04, 2017 20:37 (13) Chronic fatigue Status: Chronic (14) Arthritis Status: Chronic (15) Anxiety Status: Chronic (16) Insomnia Status: Chronic Qualifiers: Insomnia type: primary Qualified Codes: F51.01 - 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 (17) Type II diabetes mellitus with complication Status: Chronic (18) Sleep apnea Status: Chronic Qualifiers: Sleep apnea type: other type Qualified Codes: G47.39 - Other sleep apnea (19) Hypoxia Status: Chronic Clinical Quality Measures DVT/VTE Risk/Contraindication: Risk Factor Score Per Nursin RFS Level Per Nursing on Admit: 4+=Very High DIYA ELDER DO Nov 03, 2018 10:28
[2018-11-03] MEDS ORDERED: BUPIVACAINE 0.25% 30 ML (SENSORCAINE) VIAL INJ ONE (10:30)
[2018-11-03] MEDS ORDERED: BETAMETHASONE ACE/NA PHOS 6 MG/ML (CELESTONE SOLUSPAN) IM ONE (10:30)
--- NOTE | 2018-11-03 10:32 | Consultation - Ortho ---
Consult - Ortho Chief complaintright knee pain and swelling History of present illnessthe patient is a 73-year-old white male who is had right knee pain and swelling since last Saturday10/28/2018. He stated he went to the gym on Saturday the and worked out his legs doing leg extensions and had no pain whatsoever during his work out or that evening. The next day on Saturday noted pain and swelling in his knee and difficulty putting weight on the right lower extremity. He's had problems with his knee in the past giving out causing him to fall. He has had injections in his knee in the past but it's been a year or so since his last injection by Dr. Dumont. Is presently taking no anti- inflammatories. He is on Coumadin. Past medical history was reviewed and no additions or changes On exam he has good motion of the hip without pain on the right. He is able to almost completely extend his knee lacking about 5. I can palpate his quadriceps and patella tendons and no defects are noted. He has medial and lateral joint line pain as well as patellofemoral pain he has pain over the collateral ligaments. He has some subcutaneous swelling as well as mild effusion of the knee. He has no posterior knee pain. I flex him up to about 70-75 and he has increasing pain. He has no instability on varus valgus stress, Emely's. Unable to perform Philipp's, pivot shift, anterior posterior drawer. He has no calf tenderness and negative Homans. He has no pain with range of motion ankle or with palpation. He has good strength on dorsiflexion and plantar flexes foot and ankle. Good capillary refill. Symmetrical pulses. Normal sensation. X-rays were reviewed from 11/02 which shows significant degenerative changes involving mainly the patellofemoral joint medial compartment. No evidence of fractures. Impressionosteoarthritis right knee plantreatment options were discussed with the patient. Since he is on Coumadin he has be very careful taking anti-inflammatories with Celebrex being the only anti-inflammatory that one can safely take while on Coumadin. The other option would be to inject his knee with cortisone. He understands that both can help but one may work better and the other or neither may work well as he has significant degenerative changes. He would like to try an injection. He understands that the improvement in his symptoms may be temporary and varies as to how much it helps. He knows he is probably going to need a total knee at some point. Once I have everything I need for the injection we will proceed. SUSHMA NEGRETE MD Nov 03, 2018 10:32
--- NOTE | 2018-11-03 11:13 | NUR ---
Dr. Cardoso present in room to administer cortisone injection in patient's right knee.
[2018-11-03] MEDS ORDERED: PARO40TA3 PO (11:20)
[2018-11-03] MEDS ORDERED: TOPI50TA13 PO (11:20)
[2018-11-03] MEDS ORDERED: AMLO10TA7 PO (11:20)
[2018-11-03] MEDS ORDERED: HYDR-3812 PO (11:20)
[2018-11-03] MEDS ORDERED: LOVA20TA2 PO (11:20)
[2018-11-03] MEDS ORDERED: ENAL5TAB PO (11:20)
[2018-11-03] MEDS ORDERED: CLON0.2T PO (11:20)
--- NOTE | 2018-11-03 11:24 | Progress Note - Ortho ---
Progress Note Procedurethe injection of Celestone 12 mg and 4 mL's of 0.25 percent Marcaine to the right knee was discussed with the patient. His only allergy is sulfa medication. This causes a rash. He's had previous knee injections without any side effects or problems. The patient agreed that we are injecting his right knee The skin was prepped over the medial joint line. He had a small sore wound lateral joint line. The knee was then injected with Celestone 12 mg in 4 mL's o f 0.25 percent Marcaine. Skin was then cleansed with alcohol and Band-Aid was applied. And understands that he may notice initial improvement with Marcaine which may last a few hours in the Celestone usually starts working about 12-24 hours and could take up to 2-3 weeks to see the maximum benefit. Use ice on the injection site for any pain and swelling. He may have some increased bruising due to the fact that he's on Coumadin. The Celestone was sent up from the pharmacy already drawn up and I used 4 mL of 0.25 percent Marcaine out of the 30 mL bottle. The remaining 26 mLs was wasted Laboratory Tests 11/02/18 22:53: Prothrombin Time 60.7*H, INR Comment 6.6*H 11/03/18 04:58: Prothrombin Time 63.7*H, INR Comment 7.0*H, White Blood Count 11.6H, Red Blood Count 4.58, Hemoglobin 12.4L, Hematocrit 40, Mean Corpuscular Volume 87, Mean Corpuscular Hemoglobin 27, Mean Corpuscular Hemoglobin Concent 31L, Red Cell Distribution Width 17.3H, Platelet Count 190, Mean Platelet Volume 11.3H, Neutrophils (%) (Auto) 74, Lymphocytes (%) (Auto) 16, Monocytes (%) (Auto) 9, Eosinophils (%) (Auto) 1, Basophils (%) (Auto) 0, Neutrophils # (Auto) 8.6H, Lymphocytes # (Auto) 1.9, Monocytes # (Auto) 1.1H, Eosinophils # (Auto) 0.1, Basophils # (Auto) 0.0, Sodium Level 139, Potassium Level 3.9, Chloride Level 108H, Carbon Dioxide Level 20L, Anion Gap 11, Blood Urea Nitrogen 19H, Creatinine 1.16, Estimat Glomerular Filtration Rate > 60, BUN/Creatinine Ratio 16, Glucose Level 140H, Calcium Level 8.9, Corrected Calcium 9.2, Total Bilirubin 0.5, Aspartate Amino Transf (AST/SGOT) 11, Alanine Aminotransferase (ALT/SGPT) 12, Alkaline Phosphatase 68, Total Protein 6.3L, Albumin 3.6 11/03/18 05:49: Glucometer 138H Vital Signs Date Time Temp Pulse Resp B/P (MAP) Pulse Ox O2 Delivery O2 Flow Rate FiO2 11/03/18 08:30 98.2 61 19 137/64 (88) 95 Room Air 0.00 11/03/18 08:00 Room Air 11/03/18 04:00 98.4 61 20 107/68 (81) 95 Room Air 11/03/18 01:40 Room Air 11/03/18 01:40 Room Air 11/03/18 01:24 99.6 63 20 160/82 96 Room Air 11/03/18 00:47 98.5 76 16 182/80 (114) 94 Room Air 11/02/18 23:27 98.5 88 16 182/96 (124) 95 Room Air 11/02/18 21:02 98.5 84 20 152/90 (110) 92 Room Air I & O 11/03/18 07:00 Intake Total 50 ml Output Total 300 ml Balance -250 ml Clinical Quality Measures DVT/VTE Risk/Contraindication: Risk Factor Score Per Nursin RFS Level Per Nursing on Admit: 4+=Very High SUSHMA NEGRETE MD Nov 03, 2018 11:24
[2018-11-03] MEDS ORDERED: WARF6TAB49 PO (11:39)
[2018-11-03] MEDS ORDERED: METF-397 PO (11:39)
[2018-11-03] MEDS ORDERED: AMIO200T4 PO (11:42)
[2018-11-03] MEDS ORDERED: CLON1TAB PO (11:47)
--- NOTE | 2018-11-03 12:02 | Physical Therapy Evaluation ---
PT Evaluation-General Medical Diagnosis Admission Date Nov 03, 2018 at 00:30 Medical Diagnosis: elevated INR/bilatera LE edema/freq falls Onset Date: Nov 03, 2018 Therapy Diagnosis Therapy Diagnosis: debility Height/Weight Height (Feet): 5 Height (Inches): 8.50 Weight (Pounds): 229 Weight (Ounces): 6.4 Precautions Precautions/Isolations: Fall Prevention, Standard Precautions Weight Bear Status Right Lower Extremity: Right Full Weight Bearing Left Lower Extremity: Left Full Weight Bearing Referral Physician: Yulisa Reason for Referral: Evaluation/Treatment Medical History Pertinent Medical History: CAD, DM, HTN Current History ER secondary to right LE edema and frequent falls (per patient, he tripped over a blanket and a step resulting in falls) Reviewed History: Yes Social History Home: Single Level Current Living Status: Spouse Entry Into Home: Stairs With Railing PT Steps Into Home: 2 Prior/Core FIM Prior Level of Function Therapy Code Descriptions/Definitions Functional [place] Measure: 0=Not Assessed/NA 4=Minimal Assistance 1=Total Assistance 5=Supervision or Setup 2=Maximal Assistance 6=Modified [place] 3=Moderate Assistance 7=Complete [place] Therapy Quality Codes: 6 Independent with activity with or without an assistive device 5 Patient requires set up or clean up by helper. Patient completes activity by themselves 4 Supervision or touching assist (CGA). [place] provide cues , steadying assist 3 The helper provides less than half the effort to complete the activity 2 The helper provides more than half the effort to complete the activity 1 Dependent. The helper does all the effort to complete an activity 7 Patient refused to complete or attempt activity 9 The patient did not perform the activity before the current illness or injury 88 Not attempted due to Medical conditions or safety concerns Functional Abilities and Goals: Independent: Patient completed the activities by him/herself, with or without an assistive device, with no assistance from a helper. Needed Some Help: Patient needed partial assistance from another person to complete activities. Dependent: A helper completed the activities for the patient. Unknown: Not Applicable: Bed Mobility: 6 Transfers (B,C,W/C) (FIM): 6 Gait: 6 Stairs: 2 Indoor Mobility (Ambulation): Independent Stairs: Independent Prior Devices Use: Walker, Other-see list below Prior Device Use: FWW or cane PT Evaluation-Current Subjective Patient agrees to PT. He states he is going to receive a cortisone injection right knee on this date. Pain Numeric Pain Scale: 5-Moderate Pain Location: Right Location Body Site: Knee Pain Description: Chronic Objective Patient Orientation: Normal For Age Problem Solving: Fair ROM/Strength ROM Lower Extremities bilateral LE WFL with noted mild edema right LE Strength Lower Extremities 4/5 grossly bilateral LE Integumentary/Posture Integumentary refer to nursing notes Bowel Incontinence: No Bladder Incontinence: No Posture WFL Neuromuscular (Tone, Coordination, Reflexes) grossly intact Sensory Vision: Wears Glasses Hearing: Functional Sensation Right Lower Extremit: Impaired Sensation Left Lower Extremity: Impaired Transfers Therapy Code Descriptions/Definitions Functional [place] Measure: 0=Not Assessed/NA 4=Minimal Assistance 1=Total Assistance 5=Supervision or Setup 2=Maximal Assistance 6=Modified [place] 3=Moderate Assistance 7=Complete [place] Transfers (B, C, W/C) (FIM): 5 Scootin Supine to/from Sit: 5 Sit to/from Stand: 5 Gait Mode of Locomotion: Walk Anticipated Mode of Locomotion: Walk Gait (FIM): 5 Distance (FIM): 3=150 ft Distance: 225' Gait Level of Assist: 5 Gait Assistive Device: FWW Comments/Gait Description slow, reciprocal pattern with FWW use Balance Sitting Static: Normal Sitting Dynamic: Normal Standing Static: Normal Standing Dynamic: Normal Assessment/Needs 73 y.o. male, will be seen short term by skilled PT to address functional mobility to ensure safe return to home with spouse at maximum LOF. Patient reports he works out at the [facility] 2-3 days/wk but not consistently. Rehab Potential: Fair Post Rehab Potential-Barriers: compliance PT Labeler Goals Alf Goals PT Labeler Goals Time Frame: Nov 08, 2018 Transfers (B,C,W/C) (FIM): 6 Gait (FIM): 6 Gait distance (FIM): 3=150 ft Distance: 250' Gait Assistive Device: FWW PT Plan Treatment/Plan Treatment Plan: Continue Plan of Care Treatment Plan: Education, Functional Activity Nilda, Functional Strength, Gait , Safety, Therapeutic Exercise Treatment Duration: Nov 08, 2018 Frequency: 6 times per week Estimated Hrs Per Day: .25 hour per day Patient and/or Family Agrees t: Yes Discharge Recommendations Therapy D/C Recommendations: Home w/ Family Support, Physical Therapy Outpatient Time/GCodes Time In: 1046 Time Out: 1107 Total Billed Treatment Time: 21 Total Billed Treatment 1 visit [facility] 21 min LUCÍA HUSTON PT Nov 03, 2018 12:02
[2018-11-03] MEDS ORDERED: DONE10TA41 PO (12:30)
[2018-11-03] MEDS ORDERED: POTA10TA6 PO (12:30)
--- NOTE | 2018-11-03 12:35 | NUR ---
SPOKE WITH PATIENT , HE WAS UNSURE OF MEDS AND WANTED ME TO CALL HIS . SPOKE WITH HER AND WENT THRU THE EXTERNAL MED HISTORY. 09-24-2018 DONEPEZIL 10 MG RECIEVED #90/90DS FROM THE [place] REPOSITORY. SAYS HE IS ON KLOR-CON 10MEQ , BUT TAKES 1/2 TAB DAILY; HOWEVER I COULD NOT FIND THAT AT ANY PHARMACY ( [facility] HAS A PRESCRIPTION ON FILE DATED 04-12-2017 BUT WAS NEVER PICKED UP), ADMITTED THAT SHE BREAKS HER TABLETS IN 1/2 AND GIVES HIM THAT. OTC MEDICATIONS: PATIENT AND HIS SAID HE DOES NOT TAKE ANY OTC MEDS. Addendum: 11/03/18 at 1506 by ALEC DE OLIVEIRA [facility] METFORMIN 500MG- PATIENT SAYS HE TAKES 1 QAM AND 2 QHS - THE DIRECTIONS FROM THE PHARMACY WERE 2 TS PO BID, VERIFIED WITH PATIENT AND HE CONFIRMS THAT HE IS ONLY TAKING 3 TS PER DAY. KLONOPIN LOOKS THOUGH IT IS PRESCRIBED UP TO QID, BUT THE PATIENT STATES HE IS TAKING 1 QAM AND 2 QHS
[2018-11-03] MEDS ORDERED: CLONAZEPAM 1 MG PO PRN (13:30)
[2018-11-03] MEDS ORDERED: NON-FORMULARY MEDICATION 1 EA EA (Hydrocodone/Acetaminophen (Hydrocodone-Acetamin 5-325 mg PO PRN (13:30)
[2018-11-03] MEDS ORDERED: CLONAZEPAM 2 MG PO PRN (13:30)
--- NOTE | 2018-11-03 13:43 | Occupational Therapy Eval ---
OT Evaluation-General/PLF Medical Diagnosis Admission Date Nov 03, 2018 at 00:30 Medical Diagnosis: elevated INR/bilatera LE edema/freq falls Onset Date: Nov 03, 2018 Therapy Diagnosis Therapy Diagnosis: impaired ADLs and mobility Height/Weight Height (Feet): 5 Height (Inches): 8.50 Weight (Pounds): 229 Weight (Ounces): 6.4 Precautions Precautions/Isolations: Fall Prevention, Standard Precautions Weight Bear Status Weight Bearing Restriction: Weight Bearing/Tolerated Referral Physician: Yulisa Referral Reason: Activity Tolerance, Self Care, Evaluation/Treatment, Strengthening/ROM Medical History Pertinent Medical History: CAD, DM, HTN Current History 73 yo male patient presents for c/o rt knee pain and swelling since Saturday. Patient states he went to the gym on Saturday to "work on his lower body" by doing leg extension. He denies any known injury at that time. HE reports waking up Saturday with right knee pain and swelling. reports patient's swelling has extended up the thigh and down the right calf to the ankle. Patient denies any thigh, distal leg, or ankle pain. Patient does take Coumadin and states that has been "a little while" and she is having his Coumadin level checked. reports patient has been falling frequently. Patient states falls occurred due to the lower extremities giving out, but he states that if he could work out his lower body more frequently he thinks this would help. Patient does admit to falling backwards 3 days ago after losing his balance and hitting the back of his head on a TV stand. He denies loss of consciousness, headache, dizziness, neck pain, back pain. Denies nausea, vomiting. He states "I didn't even have a knot on my head." Reviewed History: Yes Social History Home: Single Level Current Living Status: Spouse Entry Into Home: Stairs With Railing Steps Into Home: 2 ADL-Prior Level of Function Therapy Code Descriptions/Definitions Functional [place] Measure: 0=Not Assessed/NA 4=Minimal Assistance 1=Total Assistance 5=Supervision or Setup 2=Maximal Assistance 6=Modified [place] 3=Moderate Assistance 7=Complete [place] Therapy Quality Codes: 6 Independent with activity with or without an assistive device 5 Patient requires set up or clean up by helper. Patient completes activity by themselves 4 Supervision or touching assist (CGA). [place] provide cues , steadying assist 3 The helper provides less than half the effort to complete the activity 2 The helper provides more than half the effort to complete the activity 1 Dependent. The helper does all the effort to complete an activity 7 Patient refused to complete or attempt activity 9 The patient did not perform the activity before the current illness or injury 88 Not attempted due to Medical conditions or safety concerns Functional Abilities and Goals: Independent: Patient completed the activities by him/herself, with or without an assistive device, with no assistance from a helper. Needed Some Help: Patient needed partial assistance from another person to complete activities. Dependent: A helper completed the activities for the patient. Unknown: Not Applicable: ADL PLOF Comments pt reports going to gym 3X per week. pt independence PLOF with ADLs/ functional transfers using no AD Self Care: Independent Functional Cognition: Independent DME/Equipment: Bath Bench, Shower Drive Self: Yes OT Current Status Subjective pt sitting in recliner chair upon OT arrival. pt reports no pain. pt agreed to OT evaluation session/ tx session. Mental Status/Objective Patient Orientation: Person, Place, Time, Situation Current Glasses/Contacts: Yes Hearing Aids: No Dentures/Partials: No Hand Dominance: Right Upper Extremity ROM WFL Upper Extremity Coordination WFL finger to nose test & opposition Upper Extremity Sensation WFL Ju[place]arlos UE Upper Extremity Strength 4+/5 MMT Edema: noted mild edema right LE ADL-Treatment Therapy Code Descriptions/Definitions Functional [place] Measure: 0=Not Assessed/NA 4=Minimal Assistance 1=Total Assistance 5=Supervision or Setup 2=Maximal Assistance 6=Modified [place] 3=Moderate Assistance 7=Complete [place] Therapy Quality Codes: 6 Independent with activity with or without an assistive device 5 Patient requires set up or clean up by helper. Patient completes activity by themselves 4 Supervision or touching assist (CGA). [place] provide cues , steadying assist 3 The helper provides less than half the effort to complete the activity 2 The helper provides more than half the effort to complete the activity 1 Dependent. The helper does all the effort to complete an activity 7 Patient refused to complete or attempt activity 9 The patient did not perform the activity before the current illness or injury 88 Not attempted due to Medical conditions or safety concerns Lower Body Dressing (FIM): 4 (pt educaiton on figure 4 positioning. pt demo understanding. ) Toileting (FIM): 4 (CGA for safety/ balance. pt educaiton on use of RW while inbathroom. ) Transfers (B, C, W/C) (FIM): 4 (CGA for safety/ balance ) Toilet/Commode Transfer (FIM): 4 (MIN A to perorm safe tranfers. pt education on proper placement of RW while in bathroom/ use of GB/. pt demo [email or web address] ) Education OT Patient Education: Modified ADL techniques, Progress toward Goal/Update tx plan, Purpose of tx/functional activities, Reviewed precautions, Safety issues, Transfer techniques Teaching Recipient: Patient Teaching Methods: Demonstration, Discussion Response to Teaching: Verbalize Understanding, Return Demonstration OT Short Term Goals Short Term Goals Grooming(FIM): 5 Bathing(FIM): 5 Bathing Location: L Arm, R Arm, L Upper Leg, R Upper Leg, L Lower Leg (including foot), R Lower Leg (including foot), Chest, Abdomen, Buttocks, Perineal Area Upper Body Dressing(FIM): 5 Lower Body Dressing(FIM): 5 Toileting(FIM): 5 Transfers (B,C,W/C) (FIM): 5 Toilet/Commode Transfer(FIM): 5 1=Demonstrate adherence to instructed precautions during ADL tasks. 2=Patient will verbalize/demonstrate understanding of assistive devices/modifications for ADL. 3=Patient will improve strength/tolerance for activity to enable patient to perform ADL's. OT Fpc Goals Corporate Giving Manager Goals Time Frame: Nov 17, 2018 Grooming(FIM): 6 Bathing(FIM): 6 Lower Body Dressing(FIM): 6 Toileting(FIM): 6 Transfers (B,C,W/C) (FIM): 6 Toilet/Commode Transfer(FIM): 6 Additional Goals: 1-Demonstrate ADL Tasks, 2-Verbalize Understanding, 3- ImproveStrength/Nilda 1=Demonstrate adherence to instructed precautions during ADL tasks. 2=Patient will verbalize/demonstrate understanding of assistive devices/ modifications for ADL. 3=Patient will improve strength/tolerance for activity to enable patient to perform ADL's. OT Education/Plan Problem List/Assessment Assessment: Decreased Activ Tolerance, Decreased Safety Aware, Decreased UE Strength, Impaired Funct Balance, Impaired I ADL's, Impaired Self-Care Skills pt presents with functional limitations affecting areas of ADLS and functional mobility with the above mention deficits. . pt would benefit from OT Services to increase independence with ADLs/ functional transfers. pt has 2STE at home. if pt can complete stairs with PT recommended home with OT HH, if unable to perform stairs, recommend inpt rehab. Discharge Recommendations Plan/Recommendations: Continue POC Barriers to Progress home setup Treatment Plan/Plan of Care Treatment,Training & Education: Yes Patient would benefit from OT for education, treatment and training to promote independence in ADL's, mobility, safety and/or upper extremity function for ADL's. Plan of Care: ADL Retraining, Functional Mobility, Group Exercise/Act as Ind, UE Funct Exercise/Act Treatment Duration: Nov 17, 2018 Frequency: 5 times per week Estimated Hrs Per Day: .25 hour per day Agreement: Yes Rehab Potential: Fair Time/GCodes Start Time: 13:20 Stop Time: 13:45 Billed Treatment Time EVM 15 minutes ADL 10 minutes, 1 unit KEYSHAWN HOPE OT Nov 03, 2018 13:43
--- NOTE | 2018-11-03 16:37 | NUR ---
IRF Evaluation Order received to evaluate patient for the ARU. Chart review complete; will discuss with Dr. Márquez, for determination. Thank you for this referral. Addendum: 11/04/18 at 1055 by AUGUST Rossi GONZALEZ SS According to PT Progress Note, patient is ambulating (300ft x2, FWW) and transferring with modified independence; therefore, the patient does not require intensive therapies, at this time.
[2018-11-03] MEDS ORDERED: DONEPEZIL 10 MG (ARICEPT) TAB PO SCH (21:00)
[2018-11-03] MEDS ORDERED: NON-FORMULARY MEDICATION 1 EA EA (Metformin HCl 1,000 MG) PO SCH (21:00)
[2018-11-03] MEDS ORDERED: SIMvastatin 10 MG (ZOCOR) TAB PO SCH (21:00)
[2018-11-03] MEDS ORDERED: NON-FORMULARY MEDICATION 1 EA EA (Topiramate 50 MG) PO SCH (21:00)
[2018-11-03] MEDS ORDERED: AMIODARONE 200 MG (CORDARONE) TAB PO SCH (21:00)
[2018-11-03] MEDS ORDERED: NON-FORMULARY MEDICATION 1 EA EA (Lovastatin 20 MG) PO SCH (21:00)
[2018-11-03] MEDS ORDERED: NON-FORMULARY MEDICATION 1 EA EA (Clonidine HCl 0.2 MG) PO SCH (21:00)
[2018-11-03] MEDS ORDERED: NON-FORMULARY MEDICATION 1 EA EA (Donepezil HCl 10 MG) PO SCH (21:00)
[2018-11-03] MEDS ORDERED: ENALAPRIL 5 MG (VASOTEC) TAB PO SCH (21:00)
[2018-11-04 03:25] VITALS: BP 121/60
[2018-11-04] MEDS: PIOGLITAZONE 30MG (ACTOS) TAB PO SCH (05:26)
[2018-11-04] MEDS: metFORMIN 500 MG (GLUCOPHAGE) TAB PO SCH (05:27)
[2018-11-04 06:16] LABS: BASOPHILS % (AUTO) 0 % (0-10); EOSINOPHILS % (AUTO) 0 % (0-10); HEMATOCRIT 42 % (40-54); HEMOGLOBIN 12.9 G/DL (13.3-17.7); LYMPHOCYTES # (AUTO) 0.7 X 10^3 (1.0-4.0); LYMPHOCYTES % (AUTO) 7 % (12-44); MEAN CORPUSCULAR HEMOGLOBIN 27 PG (25-34); MEAN CORPUSCULAR HGB CONC 31 G/DL (32-36); MEAN CORPUSCULAR VOLUME 87 FL (80-99); MEAN PLATELET VOLUME 11.5 FL (7.4-10.4); MONOCYTES # (AUTO) 0.2 X 10^3 (0.0-1.0); MONOCYTES % (AUTO) 2 % (0-12); NEUTROPHILS # (AUTO) 10.3 X 10^3 (1.8-7.8); NEUTROPHILS % (AUTO) 92 % (42-75); PLATELET COUNT 203 10^3/uL (130-400); WHITE BLOOD COUNT 11.3 10^3/uL (4.3-11.0)
[2018-11-04 06:28] LABS: INR 1.7 (0.8-1.4)
[2018-11-04 06:48] LABS: ALBUMIN 3.7 GM/DL (3.2-4.5); BILIRUBIN,TOTAL 0.6 MG/DL (0.1-1.0); CALCIUM 9.5 MG/DL (8.5-10.1); CREATININE SERUM 1.21 MG/DL (0.60-1.30); POTASSIUM 4.7 MMOL/L (3.6-5.0); TOTAL PROTEIN 6.7 GM/DL (6.4-8.2)
[2018-11-04] MEDS ORDERED: KCL 10 MEQ TAB (MICRO K) PO SCH (08:00)
[2018-11-04 08:50] VITALS: BP 119/57
[2018-11-04] MEDS ORDERED: PIOGLITAZONE HCL 30 MG PO SCH (09:00)
[2018-11-04] MEDS ORDERED: NON-FORMULARY MEDICATION 1 EA EA (Paroxetine HCl 40 MG) PO SCH (09:00)
[2018-11-04] MEDS ORDERED: NON-FORMULARY MEDICATION 1 EA EA (Metformin HCl 500 MG) PO SCH (09:00)
[2018-11-04] MEDS ORDERED: NON-FORMULARY MEDICATION 1 EA EA (Amlodipine Besylate 10 MG) PO SCH (09:00)
[2018-11-04] MEDS: AMIODARONE 200 MG (CORDARONE) TAB PO SCH (09:01)
[2018-11-04] MEDS: ENALAPRIL 5 MG (VASOTEC) TAB PO SCH (09:01)
[2018-11-04] MEDS: toPIRamate 25 MG (TOPAMAX) TAB PO SCH (09:02)
[2018-11-04] MEDS: amLODIPine 10 MG (NORVASC) TAB PO SCH (09:03)
[2018-11-04] MEDS: cloNIDine 0.2 MG (CATAPRES) TAB PO SCH (09:03)
[2018-11-04] MEDS: PARoxetine 20 MG (PAXIL) TAB PO SCH (09:04)
--- NOTE | 2018-11-04 09:15 | Physical Therapy Daily Note ---
PT Daily Note-Current Subjective Patient is in bed and agrees to PT. Pain Numeric Pain Scale: 3 Location: Right Location Body Site: Knee Pain Description: Chronic Mental Status Patient Orientation: Normal For Age Transfers Therapy Code Descriptions/Definitions Functional [place] Measure: 0=Not Assessed/NA 4=Minimal Assistance 1=Total Assistance 5=Supervision or Setup 2=Maximal Assistance 6=Modified [place] 3=Moderate Assistance 7=Complete [place] Therapy Quality Codes: 6 Independent with activity with or without an assistive device 5 Patient requires set up or clean up by helper. Patient completes activity by themselves 4 Supervision or touching assist (CGA). [place] provide cues , steadying assist 3 The helper provides less than half the effort to complete the activity 2 The helper provides more than half the effort to complete the activity 1 Dependent. The helper does all the effort to complete an activity 7 Patient refused to complete or attempt activity 9 The patient did not perform the activity before the current illness or injury 88 Not attempted due to Medical conditions or safety concerns Transfers (B, C, W/C) (FIM): 6 Scootin Supine to/from Sit: 6 Sit to/from Stand: 6 patient donned shorts independently at EOB Weight Bearing Right Lower Extremity: Right Full Weight Bearing Left Lower Extremity: Left Full Weight Bearing Gait Training Gait (FIM): 6 Distance (FIM): 3=150 ft Distance: 300' x 2 Gait Level of Assist: 6 Gait Assistive Device: FWW slow, steady, functional gait sequence Stair Training Stair Training: Handrails/: 1 handrail, uses walker Stairs (FIM): 1 #of Steps: 2 Stairs: Pattern: Step to Level of Assist: 5 Exercises Supine Ex: Ankle pumps, Quad Set, Heel Slides, Straight leg raise Supine Reps: 10 Assessment Patient improved on this date and reports he wants to go home. PT will continue to address functional strength and mobility until dismissal. PT Short Term Goals Short Term Goals Transfers (B,C,W/C) (FIM): 5 PT Rotary Bar Operator Goals Rotary Bar Operator Goals PT Rotary Bar Operator Goals Time Frame: Nov 08, 2018 Transfers (B,C,W/C) (FIM): 6 Gait (FIM): 6 Gait distance (FIM): 3=150 ft Distance: 250' Gait Assistive Device: FWW PT Plan Treatment/Plan Treatment Plan: Continue Plan of Care Treatment Plan: Education, Functional Activity Nilda, Functional Strength, Gait, Safety, Therapeutic Exercise Treatment Duration: Nov 08, 2018 Frequency: 6 times per week Estimated Hrs Per Day: .25 hour per day Patient and/or Family Agrees t: Yes Time/GCodes Time In: 846 Time Out: 902 Total Billed Treatment Time: 16 Total Billed Treatment 1 visit [facility] 16 min LUCÍA HUSTON PT Nov 04, 2018 09:15
--- NOTE | 2018-11-04 09:44 | Progress Note - Ortho ---
Progress Note Griselda Giron is doing much better since his knee injection yesterday. He states he has significantly less pain and is able to move the knee better. On exam, he still has some subcutaneous swelling and also a minimal effusion of his knee. He lacks few degrees of extension and is able to flex and knee up to 95 without pain. No instability. Still some joint line pain though. Spell at this point, I think Mr. Giron can gradually increase his activities as tolerated. He can have an injection every 3 months as needed. I'll see him as an outpatient as needed. Laboratory Tests 11/03/18 15:58: Glucometer 146H 11/03/18 20:48: Glucometer 178H 11/04/18 05:20: White Blood Count 11.3H, Red Blood Count 4.76, Hemoglobin 12.9L, Hematocrit 42, Mean Corpuscular Volume 87, Mean Corpuscular Hemoglobin 27, Mean Corpuscular Hemoglobin Concent 31L, Red Cell Distribution Width 17.0H, Platelet Count 203, M alison Platelet Volume 11.5H, Neutrophils (%) (Auto) 92H, Lymphocytes (%) (Auto) 7L , Monocytes (%) (Auto) 2, Eosinophils (%) (Auto) 0, Basophils (%) (Auto) 0, Neutrophils # (Auto) 10.3H, Lymphocytes # (Auto) 0.7L, Monocytes # (Auto) 0.2, Eosinophils # (Auto) 0.0, Basophils # (Auto) 0.0, Prothrombin Time 21.0H, INR Comment 1.7H, Sodium Level 139, Potassium Level 4.7, Chloride Level 109H, Carbon Dioxide Level 20L, Anion Gap 10, Blood Urea Nitrogen 26H, Creatinine 1.21, Estimat Glomerular Filtration Rate 59, BUN/Creatinine Ratio 21, Glucose Level 172H, Calcium Level 9.5, Corrected Calcium 9.7, Total Bilirubin 0.6, Aspartate Amino Transf (AST/SGOT) 13, Alanine Aminotransferase (ALT/SGPT) 13, Alkaline Phosphatase 66, Total Protein 6.7, Albumin 3.7 11/04/18 05:31: Glucometer 151H Vital Signs Date Time Temp Pulse Resp B/P (MAP) Pulse Ox O2 Delivery O2 Flow Rate FiO2 11/04/18 08:50 96.9 64 21 119/57 (77) 96 Room Air 0.00 11/04/18 03:25 97.4 60 18 121/60 (80) 96 Room Air 11/03/18 23:31 97.6 61 20 124/60 (81) 97 Room Air 11/03/18 20:10 97.1 63 20 117/63 (81) 96 Room Air 11/03/18 20:00 Room Air 11/03/18 15:51 96.8 68 20 111/59 (76) 94 Room Air 11/03/18 12:33 97.4 61 20 144/65 (91) 95 Room Air 0.00 I & O 11/04/18 07:00 Intake Total 2450 ml Output Total 750 ml Balance 1700 ml Clinical Quality Measures DVT/VTE Risk/Contraindication: Risk Factor Score Per Nursin RFS Level Per Nursing on Admit: 4+=Very High SUSHMA NEGRETE MD Nov 04, 2018 09:44
[2018-11-04] MEDS ORDERED: WARF-48 PO (10:42)
--- NOTE | 2018-11-04 10:46 | Discharge Summary-Hospitalist ---
Diagnosis/Chief Complaint Date of Admission Nov 03, 2018 at 00:30 Date of Discharge Discharge Date: Nov 04, 2018 Admission Diagnosis Assessment: Right knee hematoma effusion unable to ambulate Warfarin toxicity Pacemaker AF HTN HLP DM JOSE Dementia? Plan: Monitor INR Monitor BP Hold Coumadin Vit K po x 1 today Consult ortho and PT/OT, IRF? Discharge Diagnosis (1) Effusion, right knee Status: Acute (2) Unable to ambulate Status: Acute (3) Supratherapeutic INR Status: Acute (4) Frequent falls Status: Acute (5) Chronic GERD Status: Chronic (6) Obesity (BMI 30-39.9) Status: Chronic (7) Hearing difficulty Status: Chronic (8) History of stroke Status: Chronic (9) CAD (coronary artery disease), [place] coronary artery Status: Chronic (10) Dyslipidemia Status: Chronic (11) Major depression, recurrent Status: Chronic (12) Pacemaker Status: Chronic (13) Chronic fatigue Status: Chronic (14) Arthritis Status: Chronic (15) Anxiety Status: Chronic (16) Insomnia Status: Chronic (17) Type II diabetes mellitus with complication Status: Chronic (18) Sleep apnea Status: Chronic (19) Hypoxia Status: Chronic Discharge Summary Discharge Physical Exam Allergies: Coded Allergies: Sulfa (Sulfonamide Antibiotics) (Verified Allergy, Unknown, 03/12/07) Vitals & I&Os Vital Signs Date Time Temp Pulse Resp B/P (MAP) Pulse Ox O2 Delivery O2 Flow Rate FiO2 11/04/18 12:46 98.2 62 20 110/56 (74) 94 Room Air 0.00 General Appearance: No Apparent Distress, WD/WN, Chronically ill, Obese Respiratory: Chest Non Tender, Lungs Clear, Normal Breath Sounds, No Accessory Muscle Use, No Respiratory Distress Cardiovascular: Regular Rate, Rhythm, No Edema, No Gallop, No JVD, No Murmur, Normal Peripheral Pulses Extremity: Swelling (right knee improved ROM right knee now) Neurologic/Psychiatric: Alert, Oriented x3, No Motor/Sensory Deficits, Normal Mood/Affect Hospital Course Was the Problem List Reviewed?: Yes Hospital course: patient had a brief hospital course after he was admitted with right knee effusion with hematoma and supra-therapeutic INR of 6.8 which increased to 7.0 so Vit K 2.5mg PO was given and that decreased INR to 1.7 which will be closely monitored at [facility] with INR tomorrow and resuming Coumadin at 5mg daily. Dr Cardoso graciously consulted on his right knee effusion and removed fluid and gave steroid injection with good results. He was able to ambulate with walker and do well enough for DC. Labs (last 24 hrs) Laboratory Tests 11/03/18 20:48: Glucometer 178H 11/04/18 05:20: White Blood Count 11.3H, Red Blood Count 4.76, Hemoglobin 12.9L, Hematocrit 42, Mean Corpuscular Volume 87, Mean Corpuscular Hemoglobin 27, Mean Corpuscular Hemoglobin Concent 31L, Red Cell Distribution Width 17.0H, Platelet Count 203, Mean Platelet Volume 11.5H, Neutrophils (%) (Auto) 92H, Lymphocytes (%) (Auto) 7L, Monocytes (%) (Auto) 2, Eosinophils (%) (Auto) 0, Basophils (%) (Auto) 0, Neutrophils # (Auto) 10.3H, Lymphocytes # (Auto) 0.7L, Monocytes # (Auto) 0.2, Eosinophils # (Auto) 0.0, Basophils # (Auto) 0.0, Prothrombin Time 21.0H, INR Comment 1.7H, Sodium Level 139, Potassium Level 4.7, Chloride Level 109H, Carbon Dioxide Level 20L, Anion Gap 10, Blood Urea Nitrogen 26H, Creatinine 1.21, Estimat Glomerular Filtration Rate 59, BUN/Creatinine Ratio 21, Glucose Level 172H, Calcium Level 9.5, Corrected Calcium 9.7, Total Bilirubin 0.6, Aspartate Amino Transf (AST/SGOT) 13, Alanine Aminotransferase (ALT/SGPT) 13, Alkaline Phosphatase 66, Total Protein 6.7, Albumin 3.7 11/04/18 05:31: Glucometer 151H 11/04/18 11:10: Glucometer 142H Patient resulted labs reviewed. Pending Labs Discussion & Recommendations Discharge Planning: <30 minutes discharge planning Discharge Home Medications: Active Scripts Active Warfarin Sodium 5 Mg Tablet 5 Mg PO DAILY Reported Klor-Con 10 (Potassium Chloride) 10 Meq Tablet.er 5 Meq PO DAILY TAKES 1/2 OF A 10MEQ TABLET Donepezil HCl 10 Mg Tablet 10 Mg PO HS Klonopin (Clonazepam) 1 Mg Tablet 2 Mg PO HS PRN Amiodarone HCl 200 Mg Tablet 200 Mg PO BID Metformin HCl 500 Mg Tablet 1,000 Mg PO HS Hydrocodone-Acetamin 5-325 mg (Hydrocodone/Acetaminophen) 1 Each Tablet 1 Tab PO QID PRN Topiramate 50 Mg Tablet 50 Mg PO BID Lovastatin 20 Mg Tablet 20 Mg PO HS Paroxetine HCl 40 Mg Tablet 40 Mg PO DAILY Amlodipine Besylate 10 Mg Tablet 10 Mg PO DAILY Enalapril Maleate 5 Mg Tablet 5 Mg PO BID Clonidine HCl 0.2 Mg Tablet 0.2 Mg PO BID Metformin HCl 500 Mg Tablet 500 Mg PO DAILY Actos (Pioglitazone HCl) 30 Mg Tablet 30 Mg PO DAILY Klonopin (Clonazepam) 1 Mg Tablet 1 Mg PO DAILY PRN Instructions to patient/family Please see electronic discharge instructions given to patient. Clinical Quality Measures DVT/VTE Risk/Contraindication: Risk Factor Score Per Nursin RFS Level Per Nursing on Admit: 4+=Very High Problem Qualifiers (1) Hearing difficulty: Laterality: bilateral Qualified Codes: H91.93 - Unspecified hearing loss, bilateral (2) CAD (coronary artery disease), [place] coronary artery: [place] vs. transplanted heart: [place] heart Associated angina: without angina Qualified Codes: I25.10 - Atherosclerotic heart disease of [place] coronary artery without angina pectoris (3) Major depression, recurrent: Active/Remission status: remission status unspecified Qualified Codes: F33.9 - Major depressive disorder, recurrent, unspecified (4) Insomnia: Insomnia type: primary Qualified Codes: F51.01 - 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 (5) Sleep apnea: Sleep apnea type: other type Qualified Codes: G47.39 - Other sleep apnea DIYA ELDER DO Nov 04, 2018 10:46
[2018-11-04 12:00] VITALS: BP 119/57
[2018-11-04 12:46] VITALS: BP 110/56
== END 2018-11-04 10:42 ==
LOC: EDUNIT# 20:47 → ER 20:49 → 4TH 20:50 → UNDOADMOB 11-03 00:30 → UNDODISOB 11-04 12:00
PROVIDERS: ADMIT Family Medicine; ATTEND Family Medicine
DX: M25.461 Effusion, right knee (principal); S80.01XA Contusion of right knee, initial encounter; M17.11 Unilateral primary osteoarthritis, right knee; R79.1 Abnormal coagulation profile; R29.6 Repeated falls; I25.10 Atherosclerotic heart disease of native coronary artery without angina pectoris; E11.9 Type 2 diabetes mellitus without complications; E78.5 Hyperlipidemia, unspecified; F33.9 Major depressive disorder, recurrent, unspecified; Z95.0 Presence of cardiac pacemaker; R53.82 Chronic fatigue, unspecified; F41.9 Anxiety disorder, unspecified; F51.01 Primary insomnia; G47.39 Other sleep apnea; R09.02 Hypoxemia; H91.93 Unspecified hearing loss, bilateral; E66.9 Obesity, unspecified; Z68.34 Body mass index [BMI] 34.0-34.9, adult; W19.XXXA Unspecified fall, initial encounter; Z86.79 Personal history of other diseases of the circulatory system; Z79.01 Long term (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; Z79.84 Long term (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 oral hypoglycemic drugs; Z79.899 Other long term (current) drug therapy
CPT/HCPCS: 36415; 73562; 80053; 82962; 85025; 85610; G0378

== ENCOUNTER 2019-01-08 12:57 | Outpatient (CLI) | payer MEDICARE ==
[~2019-01-08] VITALS: Ht 174 cm; Wt 98.0 kg
[~2019-01-08 12:57] MED LIST changes: +AMIO200T4 PO; +AMLO10TA7 PO; +CLON0.2T PO; +DONE10TA41 PO; +HYDR-3812 PO; +PARO40TA3 PO; +POTA10TA6 PO; +TOPI50TA13 PO; +WARF-48 PO; +WARF6TAB49 PO
[2019-01-08 13:18] VITALS: BP 104/60
[2019-01-08] MEDS ORDERED: WARF-48 PO (13:18)
--- NOTE | 2019-01-08 14:40 | Diagnostic Imaging Report ---
INDICATION: Preoperative evaluation for knee replacement. COMPARISON: 04/28/2018. FINDINGS: Frontal and lateral views of the chest demonstrate normal heart size and pulmonary vascularity. The lungs are clear. There are no signs of infiltrate, pleural effusions or pneumothoraces. The visualized osseous structures show no acute abnormalities. Left-sided dual-lead pacemaker and calcified aortic atherosclerosis are noted. IMPRESSION: 1. No acute process. No signs of infiltrates, effusions or pneumothoraces. Dictated by: Dictated on workstation # [id number]
[2019-01-08 14:54] LABS: BASOPHILS % (AUTO) 0 % (0-10); EOSINOPHILS # (AUTO) 0.1 10^3/uL (0.0-0.3); EOSINOPHILS % (AUTO) 1 % (0-10); HEMATOCRIT 46 % (40-54); HEMOGLOBIN 14.5 G/DL (13.3-17.7); LYMPHOCYTES # (AUTO) 1.4 X 10^3 (1.0-4.0); LYMPHOCYTES % (AUTO) 15 % (12-44); MEAN CORPUSCULAR HEMOGLOBIN 27 PG (25-34); MEAN CORPUSCULAR HGB CONC 31 G/DL (32-36); MEAN CORPUSCULAR VOLUME 85 FL (80-99); MEAN PLATELET VOLUME 11.9 FL (7.4-10.4); MONOCYTES # (AUTO) 0.6 X 10^3 (0.0-1.0); MONOCYTES % (AUTO) 6 % (0-12); NEUTROPHILS # (AUTO) 7.2 X 10^3 (1.8-7.8); NEUTROPHILS % (AUTO) 78 % (42-75); PLATELET COUNT 194 10^3/uL (130-400); WHITE BLOOD COUNT 9.3 10^3/uL (4.3-11.0)
[2019-01-08 15:10] LABS: CLARITY,URINE CLEAR; COLOR,URINE YELLOW; GLUCOSE, URINE (UA) NEGATIVE (NEGATIVE); KETONES,URINE NEGATIVE (NEGATIVE); LEUKOCYTE ESTERASE ,URINE 1+ (NEGATIVE); NITRITE,URINE NEGATIVE (NEGATIVE); PH,URINE 5 (5-9); PROTEIN,URINE 1+ (NEGATIVE); UROBILINOGEN,URINE 1 MG/DL (NORMAL)
[2019-01-08 15:17] LABS: ALBUMIN 3.9 GM/DL (3.2-4.5); BILIRUBIN,TOTAL 0.3 MG/DL (0.1-1.0); CALCIUM 9.1 MG/DL (8.5-10.1); CREATININE SERUM 1.25 MG/DL (0.60-1.30); POTASSIUM 4.4 MMOL/L (3.6-5.0)
[2019-01-08 15:26] LABS: ERYTHROCYTE SEDIMENTATION RATE 1 MM/HR (0-30)
[2019-01-08 15:42] LABS: BILIRUBIN,URINE 1+ ICTO=NEG (NEGATIVE)
[2019-01-08 15:44] LABS: BACTERIA,URINE TRACE /HPF
== END 2019-01-08 14:35 | disposition home or self-care (01) ==
LOC: PREOP 12:57
PROVIDERS: ATTEND Orthopaedic Surgery
DX: Z01.812 Encounter for preprocedural laboratory examination (principal); Z01.810 Encounter for preprocedural cardiovascular examination; M17.11 Unilateral primary osteoarthritis, right knee; Z95.0 Presence of cardiac pacemaker
CPT/HCPCS: 36415; 71046; 80053; 81000; 85025; 85652; 86850; 86900; 86901; 87081

== ENCOUNTER 2019-01-14 06:13 | Inpatient (IN) | payer MEDICARE ==
--- NOTE | 2019-01-07 05:17 | HISTORY AND PHYSICAL ---
DATE OF SERVICE: DATE OF SERVICE: 01/14/2019. This will be for inpatient admission on 01/14/2019 for right total knee arthroplasty. The patient will require regular inpatient admission due to comorbidities, difficulty with ambulation, need for physical therapy and pain management. HISTORY OF PRESENT ILLNESS: The patient is a 73-year-old gentleman with progressively worsening right knee pain. He has had difficulty with walking because of the right knee. He had a fall, which worsened his pain, but radiographs were negative. He has undergone treatment with anti-inflammatories and activity modifications without relief. Due to functional impairment and failure to improve with conservative measures, the patient elected to proceed with surgical intervention. Radiographs revealed severe tricompartmental osteoarthritis with osteophyte formation and sclerosis noted in all three compartments. REVIEW OF SYSTEMS: No recent chest pain, shortness of breath or dysuria. PAST MEDICAL HISTORY: Cerebrovascular accident, venous insufficiency, dementia, type 2 diabetes. PAST SURGICAL HISTORY: Pacemaker placement, lipoma, tonsillectomy, right total shoulder arthroplasty. FAMILY HISTORY: Noncontributory. PRIMARY CARE PROVIDER: [facility]. MEDICATIONS: Coumadin, amlodipine, potassium. ALLERGIES: No known drug allergies. SOCIAL HISTORY: The patient drinks alcohol rarely. Denies tobacco use. PHYSICAL EXAMINATION: GENERAL: The patient is a well-developed, well-nourished, in no acute distress. HEENT: Normocephalic, atraumatic. Pupils are equal, round and reactive to light. Oropharynx is clear. NECK: Supple, no lymphadenopathy. LUNGS: Clear to auscultation bilaterally. HEART: Regular rate and rhythm. ABDOMEN: Soft, nontender, nondistended. EXTREMITIES: The right knee demonstrates moderate effusion. There is no varus valgus laxity. Negative anterior and posterior drawer. He does have varus alignment. He is tender along the medial joint line, has pain medially with Philipp. He can perform straight leg raise. He has active flexion to 120 degrees. Venous changes distally, but no other skin lesions noted. There is no erythema or warmth. IMPRESSION: Right knee severe osteoarthritis, unresponsive to conservative measures. PLAN: Right total knee arthroplasty. The risks, benefits, options, ramifications and recovery were discussed at length with the patient. He understands and wishes to proceed. Job ID: [id number] DocumentID: [id number] Dictated Date: 01/01/2019 11:39:32 Coffee Sampler Date: 01/01/2019 12:30:27 Dictated By: MARCO DIETZ MD
--- NOTE | 2019-01-08 15:56 | NUR ---
REVIEWED WHAT WAS ENTERED IN PREOP WITH THE EXT MED HX. PATIENT FILLED METFORMIN 500MG 2 BID #360 FOR 90 DAYS 10-21-18 HOWEVER WHEN HE WAS ADMITTED IN NOVEMBER THE MED REC TECH [facility] NOTED THAT THE PATIENT REPORTED ONLY TAKING 1 AM AND 2 HS DESPITE HOW THE PRESCRIPTION READ ON THE BOTTLE. I LEFT IT REPORTED PREVIOUSLY. PATIENT FILLED CLONAZEPAM #112 FOR A 28 DAY SUPPLY 01-01-19 - HOWEVER LIKE ABOVE HAD REPORTED TO [facility] ON 11-03-18 HE ONLY TOOK 1 AM AND 2 HS. I LEFT IT IT WAS PREVIOUSLY REPORTED. IN ADDITION TO WHAT IS SHOWN ON THE EXT MED HX [facility] FILLED: 12-12-18 WARFARIN 5MG DAILY #90 11-15-18 PAXIL 40MG DAILY #90 ALSO NOTED AT HIS PREVIOUS ADMISSION WAS THAT HE RECEIVED DONEPEZIL 10MG FROM THE REPOSITORY AND THAT HE TAKES 1/2 TABLET OF HIS POTASSIUM TO GET HIS 10MEQ DAILY. I LEFT THEM ON THE MED REC PREVIOUSLY REPORTED. ACCORDING TO THE EXT MED HX AMIODARONE WAS FILLED #180 10-02-18 200MG 2 TABS BID X 2 WEEKS THEN 1 BID. IT IS REPORTED ON THE MED REC ONCE DAILY HOWEVER THERE IS NO NOTE REGARDING [facility] CHANGE IN DIRECTIONS. [facility] AMI[facility]ONE [facility]ENT[facility]. I HAVE LEFT A MESSAGE WITH THE PATIENT AND WILL UPDATE WHEN HE RETURNS MY CALL. Addendum: 01/09/19 at 1318 by MANDA BUSH [facility]GA CALLED ME BACK AT THIS TIME TO CLARIFY THE QUESTION I HAD ON THE AMIODARONE. SHE STATES SHE MIS READ THE BOTTLE AND HAS ONLY BEEN GIVING 1 TABLET OF AMIODARONE AT HS. SHE DID NOT REALIZE IT WAS BID. SHE IS GOING TO CORRECT HOW SHE GIVES IT TO HIM AND SPEAK WITH DR. SCHMIDT'S OFFICE NEXT WEEK. ALSO SHE STATES THE PATIENT DOES OCCASIONALLY TAKE THE CLONAZEPAM BID DURING THE DAY AND THE 2 HS. I UPDATED THE DIRECTIONS. SHE STATES NOTHING ELSE HAS CHANGED AT THIS TIME.
[~2019-01-14] VITALS: Ht 174 cm; Wt 98.0 kg
[2019-01-14] VITALS (12 sets, daily range): BP systolic 126–195; BP diastolic 56–96
[2019-01-14] MEDS: LACTATED RINGERS 1,000 ML IV PRN ×2 (07:00→09:52)
[2019-01-14] MEDS ORDERED: ONDANSETRON 4 MG/2 ML (SDV) Z0FRAN ONE (07:01)
[2019-01-14] MEDS ORDERED: proPOfol 200 MG/20 ML (DIPRIVAN) VIAL IV ONE (07:01)
[2019-01-14] MEDS ORDERED: LIDOCAINE PF 2% 5 ML (XYLOCAINE) VIAL ONE (07:01)
[2019-01-14] MEDS ORDERED: fentaNYL INJECTION 100 MCG/2 ML AMP ONE ×2 (07:01→09:16)
[2019-01-14] MEDS ORDERED: MIDAZOLAM 2 MG/2 ML (VERSED) VIAL ONE (07:01)
[2019-01-14 07:07] LABS: INR 1.6 (0.8-1.4); PROTHROMBIN TIME PATIENT 19.5 SEC (12.2-14.7)
[2019-01-14] MEDS ORDERED: CEFUROXIME INJECTION 1,500 MG in WATER (STERILE) FOR INJECTION 15 ML IV ONE (07:15)
[2019-01-14] MEDS ORDERED: ACETAMINOPHEN 325 MG TABLET PO PRN (07:30)
[2019-01-14] MEDS ORDERED: morphine PCA 100 MG/100 ML BAG IV PRN (07:30)
[2019-01-14] MEDS ORDERED: diphenhydrAMINE 50 MG/ML INJ (BENADRYL) IVP PRN (07:30)
[2019-01-14] MEDS ORDERED: ONDANSETRON 4 MG/2 ML (SDV) Z0FRAN IVP PRN ×2 (07:30→10:30)
--- NOTE | 2019-01-14 07:32 | Progress Note-Pre Operative ---
Pre-Operative Progress Note H&P Reviewed The H&P was reviewed, patient examined and no changes noted. Date Seen by Provider: Jan 14, 2019 Time Seen by Provider: 07:15 Date H&P Reviewed: Jan 14, 2019 Time H&P Reviewed: 07:11 Pre-Operative Diagnosis: right knee primary osteoarthritis MARCO DIETZ MD Jan 14, 2019 07:32
--- NOTE | 2019-01-14 07:32 | Progress Note-Post Operative ---
Post-Operative Progess Note Surgeon (s)/Wire Stitcher (s) Surgeon MARCO DIETZ MD Wire Stitcher: Edwin Najera Pre-Operative Diagnosis right knee primary osteoarthritis Post-Operative Diagnosis right knee primary osteoarthritis Procedure & Operative Findings Date of Procedure 01/14/19 Procedure Performed/Findings right total knee arthroplasty Anesthesia Type GETA Estimated Blood Loss Estimated blood loss (mL): minimal Specimens/Packing Specimens Removed none Packing: none MARCO DIETZ MD Jan 14, 2019 07:32
[2019-01-14] MEDS ORDERED: INTRA-ARTICULAR IU ONE ×4 (07:45)
[2019-01-14] MEDS ORDERED: CATHETER FLUSH 10 ML SYR IV PRN (07:45)
[2019-01-14] MEDS ORDERED: OXYC1TAB87 PO (08:23)
--- NOTE | 2019-01-14 08:27 | D/C HH Face to Face Order ---
D/C Face to Face Orders Reconcile Patient Problems Problems Reviewed?: Yes Instructions for Patient [facility] [employer], Patient Instructions/FollowUp: two weeks after DC Physician to follow Patient: two weeks after DC Discharge Diet for Home: Regular Diet Patient Data-Allergies,Ht & Wt Patient Allergies: Coded Allergies: Sulfa (Sulfonamide Antibiotics) (Verified Allergy, Unknown, 03/12/07) Height (Feet): 5 Height (Inches): 8.50 Weight (Pounds): 216 Weight (Ounces): 0.0 Home Health Need/Face to Face Date of Face to Face: Jan 14, 2019 Clinical Findings: Instability, Muscle weakness, Pain with ambulation, Unsteady gait I have seen Pt [id number]: Yes Discharged To: Home Diagnosis/Conditions: right total k nee arthroplasty sacral decubitus Patient is Homebound due to: May fall risk due to instabilty, Muscle weakness, Pain w/ambulation Homebound Status Due to the above stated illness, injury or surgical procedure (medical condition or diagnosis) and associated clinical findings, the patient is homebound because of his/her inability to leave home except with aid of a supportive device and/or person AND leaving the home requires a considerable and taxing effort or is medically contraindicated. Pt req the following assistanc: Walker Home Health Nursing Orders Home Health Services Order: Industrial Renderer-Evaluate & Treat, Physical Therapy-Evaluate & Treat, Wound Care-Eval/Treat Home Health Infusion Therapy Line Start Date: Jan 14, 2019 Therapy Orders Therapy Orders: OT (must have SN or PT order), Physical Therapy Therapy Specific Orders: Eval assistive deivces, Teach strategies/cognitive deficits, Teach enviro modifications/safety, Gait training, Increase str ength/endurance, Provider maintenance therapy, Restore ROM DC right knee xochitl and apply steri strips 01/28/19 Certify Stmt I certify that this patient is under my care and that I, a nurse practitioner or a physician; a hotel assistant general manager working with me, had a face to face encounter that - meets the physician face to face encounter requirements with this patient as dated. MARCO DIETZ MD Jan 14, 2019 08:27
[2019-01-14] MEDS ORDERED: morphine INJ 10 MG/ML 1ML (SYR OR VIAL) ONE (10:01)
[2019-01-14] MEDS ORDERED: SEVOFLURANE (ULTANE) 15 ML INHAL SOLN ONE (10:17)
[2019-01-14] MEDS ORDERED: MEPERIDINE (DEMEROL) INJ 50 MG/ML IVP ONE (10:30)
[2019-01-14] MEDS ORDERED: HYDROmorphone 2 MG/ML VIAL (DILAUDID) IV ONE (10:30)
[2019-01-14] MEDS ORDERED: PROMETHAZINE INJ 25 MG/ML (PHENERGAN) AMP IVP ONE (10:30)
[2019-01-14] MEDS ORDERED: morphine INJ 10 MG/ML 1ML (SYR OR VIAL) IVP ONE (10:30)
--- NOTE | 2019-01-14 11:09 | Progress Note ---
Standard Progress Note Progress Notes/Assess & Plan Date Seen by a Provider: Jan 14, 2019 Time Seen by a Provider: 11:07 Progress/Assessment & Plan post op check no complaints denies paresthesias radiographs--HW well positioned without fracture RLE--2 plus DP pulse with brisk cap refill. Intact DF and PF of toes and ankle. Intact sensation to light touch throughout s/p RTKA mobilize as able patient will likely require inpatient rehab placement MARCO DIETZ MD Jan 14, 2019 11:09
[2019-01-14] MEDS: SENNA W/DOCUSATE (SENOKOT S) TABLET PO SCH ×2 (11:30→20:34)
--- NOTE | 2019-01-14 11:53 | Wound Care Assessment ---
Wound Care Assessment Date Seen by Provider: Jan 14, 2019 Time Seen by Provider: 11:30 Chief Complaint R buttock pressure ulcer. HPI The patient is a 73 year old male with a Stage 2 R buttock pressure ulcer, present on admission to the hospital. The patient has had decreased mobility, leading up to recent R knee replacement. Past Medical History: Admits Diabetes Type II, Admits Peripheral Artery Disease (Stroke, dementia.) Smoking Status: Never a Smoker Recreational Drug Use: No Alcohol Use: Rarely Uses Review of Systems Pulmonary: No Dyspnea Cardiovascular: No: Chest Pain Exam Vital Signs Date Time Temp Pulse Resp B/P (MAP) Pulse Ox O2 Delivery O2 Flow Rate FiO2 01/14/19 11:25 Room Air 01/14/19 11:25 36.3 18 97 01/14/19 11:00 6 01/14/19 06:30 60 126/73 Capillary Refill : Less Than 3 Seconds General Appearance: no apparent distress HEENT: normal ENT inspection Neck: normal inspection Cardiovascular: regular rate, rhythm Respiratory: normal breath sounds Back: other (R buttock -- 1.2 x 1.1 x 0.3 cm, base 100% slough, mod.s.s. drainage.) Results Laboratory Tests 01/14/19 06:46: Prothrombin Time 19.5H, INR Comment 1.6H 01/14/19 07:15: Glucometer 147H Assessment/Plan/Dx 1. Pressure ulcer, R buttock, unstageable. 2. Diabetes, with ulcer. 3. Hx of stroke. Plan: continue bordered foam dressing. Will follow. MARCO GREWAL MD Jan 14, 2019 11:53
[2019-01-14] MEDS: NS IV 1000 ML 1,000 ML IV SCH (12:30)
--- NOTE | 2019-01-14 12:30 | NUR ---
NATHAN BAKER admitted to room 422-1, with an admitting diagnosis of right total knee replacement, on 01/14/19 from OR via bed, accompanied by staff. NATHAN BAKER introduced to surroundings, call light, bed controls, phone, TV, temperature control, lights, meal times, smoking policy, visitor policy, side rail policy, bathrooms and showers. Patient Rights given to patient in the handbook. NATHAN BAKER verbalizes understanding that [facility] is not responsible for the loss or damage to any personal effects or valuables that are kept in the patients possession during their hospitalization. The following Patient Care Plans were discussed with the patient: Discharge Planning, medications,pain management, and dehydration. NATHAN BAKER verbalizes understanding of Interdisciplinary Patient Education. Patient and/or family were informed about the Rapid Response Team and its purpose.
--- NOTE | 2019-01-14 13:26 | Diagnostic Imaging Report ---
Portable right knee in OR at 1036h. INDICATION: Postop AP and lateral views were received from the OR. Prior exam of 11/02/2018 did note medial and patellofemoral compartmental degenerative disease. In the interval since the prior study the patient has undergone a surgical procedure. There is now a total knee prosthesis in place. The prosthetic components appear to be in good position. There is gas in the soft tissues anterior to the knee joint and there are skin xochitl evident. There is no acute bony abnormality alignment. IMPRESSION: Stable postoperative right knee. Dictated by: Dictated on workstation # [id number]
--- NOTE | 2019-01-14 14:38 | Physical Therapy Evaluation ---
PT Evaluation-General Medical Diagnosis Admission Date Jan 14, 2019 at 06:13 Medical Diagnosis: right TKA Onset Date: Jan 14, 2019 Therapy Diagnosis Therapy Diagnosis: impaired mobility, strength, endurance, ROM Height/Weight Height (Feet): 5 Height (Inches): 8.50 Weight (Pounds): 216 Weight (Ounces): 0.0 Precautions Precautions/Isolations: Fall Prevention, Standard Precautions Weight Bear Status Right Lower Extremity: Right Weight Bearing/Tolerated Referral Physician: Edwin Najrea APRN Reason for Referral: Evaluation/Treatment Medical History Pertinent Medical History: CAD, DM, HTN Additional Medical History PAST MEDICAL HISTORY: Cerebrovascular accident, venous insufficiency, dementia, type 2 diabetes. PAST SURGICAL HISTORY: Pacemaker placement, lipoma, tonsillectomy, right total shoulder arthroplasty. Reviewed History: Yes Social History Home: Single Level Current Living Status: Spouse Entry Into Home: Stairs With Railing PT Steps Into Home: 4 Prior/Core FIM Prior Level of Function Therapy Code Descriptions/Definitions Functional [place] Measure: 0=Not Assessed/NA 4=Minimal Assistance 1=Total Assistance 5=Supervision or Setup 2=Maximal Assistance 6=Modified [place] 3=Moderate Assistance 7=Complete [place] Therapy Quality Codes: 6 Independent with activity with or without an assistive device 5 Patient requires set up or clean up by helper. Patient completes activity by themselves 4 Supervision or touching assist (CGA). [place] provide cues , steadying assist 3 The helper provides less than half the effort to complete the activity 2 The helper provides more than half the effort to complete the activity 1 Dependent. The helper does all the effort to complete an activity 7 Patient refused to complete or attempt activity 9 The patient did not perform the activity before the current illness or injury 88 Not attempted due to Medical conditions or safety concerns Functional Abilities and Goals: Independent: Patient completed the activities by him/herself, with or without an assistive device, with no assistance from a helper. Needed Some Help: Patient needed partial assistance from another person to complete activities. Dependent: A helper completed the activities for the patient. Unknown: Not Applicable: Bed Mobility: 6 Transfers (B,C,W/C) (FIM): 6 Gait: 6 Stairs: 6 Indoor Mobility (Ambulation): Independent Stairs: Independent Patient states he was using a rolling walker previously. PT Evaluation-Current Subjective Patient in bed pre tx, agrees to PT, has 4/10 pain. Pt/Family Goals to be independent at home Objective Patient Orientation: Person, Place, Situation ROM/Strength ROM Lower Extremities right knee extension +5 degrees, flexion 75 degrees Strength Lower Extremities NT Sensory Hearing: Functional Sensation Right Lower Extremit: Intact Sensation Left Lower Extremity: Intact Transfers Therapy Code Descriptions/Definitions Functional [place] Measure: 0=Not Assessed/NA 4=Minimal Assistance 1=Total Assistance 5=Supervision or Setup 2=Maximal Assistance 6=Modified [place] 3=Moderate Assistance 7=Complete [place] Transfers (B, C, W/C) (FIM): 3 Scootin Rollin Supine to/from Sit: 3 Sit to/from Stand: 4 Mod assist for supine to sit, CGA to stand. Patient is very shaky after standing, no ambulation at this time. Patient stands for a few minutes but cannot take a step toward the head of the bed. Balance Sitting Static: Normal Sitting Dynamic: Normal Standing Static: Fair Standing Dynamic: Fair Treatment Supine TKA protocol on the right side x10 (AP, QS, HS, SAQ, SLR). CPM applied and fit to leg and set to 50/-2. Assessment/Needs Patient has impaired mobility, strength, endurance, ROM post right TKA. Patient very shaky after standing. Rehab Potential: Fair PT Short Term Goals Short Term Goals Time Frame: Jan 21, 2019 Transfers (B,C,W/C) (FIM): 5 Gait (FIM): 2 Gait Distance Comment: 50' Gait Level of Assist: 4 Gait Assistive Device: FWW PT Plan Problem List Problem List: Activity Tolerance, Functional Strength, Safety, Balance, Gait, Transfer, Bed Mobility, ROM Treatment/Plan Treatment Plan: Continue Plan of Care Treatment Plan: Bed Mobility, Education, Functional Activity Nilda, Functional Strength, Gait, Safety, Therapeutic Exercise, Transfers Treatment Duration: Jan 21, 2019 Frequency: 11 times per week Estimated Hrs Per Day: .25 hour per day Patient and/or Family Agrees t: Yes Safety Risks/Education Patient Education: Transfer Techniques, Correct Positioning, Safety Issues Teaching Recipient: Patient Teaching Methods: Demonstration, Discussion Response to Teaching: Reinforcement Needed Discharge Recommendations Plan Patient will perform bed mobility and transfer training, balance and endurance training, functional strengthening, stair training, gait training, and education, to improve functional mobility and independence at home. Therapy Discharge Recommendati: Other, See Comments (home with family or rehab) Time/GCodes Time In: 1401 Time Out: 1430 Total Billed Treatment Time: 29 Total Billed Treatment 1 visit TAMARA 15' FA 14' MARILEE ROMO PT Jan 14, 2019 14:38
[2019-01-14] MEDS: CEFUROXIME INJECTION 750 MG in WATER (STERILE) FOR INJECTION 10 ML IV SCH ×2 (16:28→23:31)
--- NOTE | 2019-01-14 19:01 | OPERATIVE REPORT ---
DATE OF SERVICE: 01/14/2019 PREOPERATIVE DIAGNOSIS: Right knee primary osteoarthritis. POSTOPERATIVE DIAGNOSIS: Right knee primary osteoarthritis. PROCEDURE: Right total knee arthroplasty. SURGEON: Jayro Dumont MD. EMPLOYMENT SUPERVISOR: Edwin Najera, who assisted throughout the procedure and closed the incision. ANESTHESIA: General endotracheal by Shady Rockwell CRNA. TOURNIQUET TIME: Approximately 65 minutes at 300 mmHg. ESTIMATED BLOOD LOSS: Minimal. DRAINS: None. COMPLICATIONS: None. POSTOPERATIVE PLAN: Routine protocol. The patient was transferred to the recovery room in awake and stable condition. MATERIALS: Microport cemented size 4 femur, cemented size 5 tibia with 10 mm insert and cemented size 35 patellar button. STATEMENT OF MEDICAL NECESSITY: The patient is a 73-year-old gentleman with longstanding progressive right knee pain and loss of function. He had severe tricompartmental osteoarthritis with varus deformity of his right knee. He had undergone treatment with injections, anti-inflammatories and rest. Due to functional impairment and failure to improve with conservative measures, the patient and his family elected to proceed with total knee arthroplasty. PROCEDURE: After risks and benefits of procedure were discussed and questions were answered, an informed consent was signed and placed on chart. The operative site was confirmed in the preoperative holding area initialed by the surgeon. The patient was then transferred to the operating room. After adequate levels of general endotracheal anesthetic were obtained, a timeout was called, confirming the operative site. The right lower extremity was prepped and draped in the usual sterile fashion with the leg elevated and the knee flexed. Tourniquet was inflated to 300 mmHg. Standard anterior approach was utilized. Hemostasis was obtained with cautery. The medial parapatellar arthrotomy was performed leaving 1 cm cuff on the patella for later reattachment. A portion of the fat pad was resected. A subperiosteal release was performed in the proximal medial tibia being careful to stay on the bony surface. The ACL was resected. Intramedullary guide was passed into the femur and the distal cutting block was placed and distal cut was made. The femur sized to a size 4 and the 4 cutting blocks was placed parallel to the epicondylar axis. Cuts were made from posterior to anterior. A subperiosteal release was then performed on the posterior distal femur, being careful to stay on the bony surface. Intramedullary guide was then passed into the tibia. The cutting block was placed. The drop [place] transected the intermalleolar axis and the cut was made, size 5 baseplate was placed and the drop [place] transected the intermalleolar axis. This was then prepared with the drill and keel punch. The trials were inserted. The trochlear cut was made. The patella was then prepared by resecting 10 mm off the undersurface using the freehand technique. The peg guide was placed and the peg holes were drilled. The patellar 35 trial was placed. A 10 mm insert was placed as a trial for the tibia. The knee was taken through a range of motion. Full extension was easily obtained under 20 degrees of flexion with gravity was easily obtained. The patella tracked well. There was no anterior/posterior or medial/lateral laxity in flexion or extension. Trials were removed. The joint was copiously irrigated with pulse lavage. Periarticular block was placed in the posterior capsule, medial and lateral retinaculum and extensor mechanism as well as subcutaneous tissue. The bone ends were irrigated and dried. The tibial baseplate was cemented into position. Excessive cement was removed. The superior surface was irrigated and dried and the polyethylene insert was placed. Distal femur was irrigated and dried and the femoral prosthesis was cemented into position. Excessive cement was removed. The knee was brought into full extension until cement had cured. The undersurface of the patella was irrigated and dried. The patellar button was cemented into position. Excessive cement was removed. Once the cement had cured, the knee was taken through range of motion. Full extension was easily obtained, 120 degrees of flexion with gravity was easily obtained. The patella tracked well. There was no anterior/posterior or medial/lateral laxity in flexion or extension. The joint was further irrigated with pulse lavage. Arthrotomy was closed with #2 Tevdek in [id number] interrupted fashion. The knee was flexed. Patella tracked well with no undue tension at the repair site. The subcutaneous tissues were irrigated and dried. A 0 Vicryl was used for deep subcutaneous tissue, 2-0 Vicryl for the superficial subcutaneous tissue, xochitl used on the skin. A soft dressing was applied. The tourniquet was deflated and the patient was transferred to the recovery room awake and in stable condition. Job ID: [id number] DocumentID: [id number] Dictated Date: 01/14/2019 10:24:12 Leather Cutter Date: 01/14/2019 19:00:36 Dictated By: JAYRO DUMONT MD
--- NOTE | 2019-01-14 21:11 | NUR ---
PT AND HIS CONCERNED ABOUT HIS EVENING MEDICATION, ESPECIALLY HIS BLOOD PRESSURE MEDICATION. DR. WESTBROOK CALLED REGARDING PT CONCERN. PTS BLOOD PRESSURE MEDICATION RESTARTED PER ORDER.
[2019-01-14] MEDS: AMIODARONE 200 MG (CORDARONE) TAB PO SCH (22:08)
[2019-01-14] MEDS: ENALAPRIL 5 MG (VASOTEC) TAB PO SCH (22:08)
[2019-01-15] MEDS: NS IV 1000 ML 1,000 ML IV SCH ×2 (02:13→14:30)
[2019-01-15 03:55] VITALS: BP 171/80
[2019-01-15 06:03] LABS: HEMOGLOBIN 13.2 G/DL (13.3-17.7)
[2019-01-15] MEDS: MULTIVIT W/MINERALS TAB (THERAGRAN M) PO SCH (06:58)
[2019-01-15] MEDS: ENOXAPARIN 30 MG/0.3 ML (LOVENOX) SYR SC SCH ×2 (06:58→20:52)
[2019-01-15 07:44] VITALS: BP 158/67
--- NOTE | 2019-01-15 07:47 | Progress Note ---
Standard Progress Note Progress Notes/Assess & Plan Date Seen by a Provider: Jan 15, 2019 Time Seen by a Provider: 07:46 Progress/Assessment & Plan post op check no complaints denies paresthesias radiographs--HW well positioned without fracture RLE--2 plus DP pulse with brisk cap refill. Intact DF and PF of toes and ankle. Intact sensation to light touch throughout s/p RTKA mobilize as able patient will likely require inpatient rehab placement Final Diagnosis no complaints Vital Signs Date Time Temp Pulse Resp B/P (MAP) Pulse Ox O2 Delivery O2 Flow Rate FiO2 01/15/19 06:45 96 Nasal Cannula 3.00 01/15/19 03:55 37.4 72 16 171/80 97 Nasal Cannula 3.00 01/15/19 02:00 95 Nasal Cannula 3.00 01/14/19 23:47 37.3 62 14 156/74 97 Nasal Cannula 3.00 01/14/19 22:15 96 Nasal Cannula 3.00 01/14/19 21:21 37.6 01/14/19 21:20 37.6 01/14/19 20:34 38.0 01/14/19 20:30 Room Air 01/14/19 19:55 38.0 65 18 130/56 97 Nasal Cannula 3.00 01/14/19 18:40 96 Nasal Cannula 3.00 01/14/19 16:05 37.3 66 17 130/56 93 Room Air 01/14/19 15:05 94 Room Air 01/14/19 14:21 20 01/14/19 12:00 Room Air 01/14/19 11:25 Room Air 01/14/19 11:25 36.3 18 97 Room Air 01/14/19 11:20 18 97 Room Air 01/14/19 11:10 Room Air 01/14/19 11:10 18 99 Room Air 01/14/19 11:00 18 100 OxyMask 6 01/14/19 10:55 OxyMask 6 01/14/19 10:50 18 100 OxyMask 6 01/14/19 10:40 18 97 OxyMask 6 01/14/19 10:40 OxyMask 6 01/14/19 10:30 18 98 OxyMask 6 01/14/19 10:26 36.2 17 95 OxyMask 6 01/14/19 10:26 OxyMask 6 01/14/19 08:44 Room Air I & O 01/15/19 07:00 Intake Total 2735 ml Output Total 1080 ml Balance 1655 ml Laboratory Tests Test 01/15/19 05:52 Range/Units Hemoglobin 13.2 L 13.3-17.7 G/DL Hematocrit 43 40-54 % RLE--dressing bloody. NVI distally. No calf tenderness s/p RTKA PT/OT will require IRF wound consult for sacral decub MARCO DIETZ MD Jan 15, 2019 07:47
[2019-01-15] MEDS: oxyCODONE/APAP 5/325MG (PERCOCET 5) TABLET PO PRN ×4 (08:18→23:53)
[2019-01-15] MEDS: AMIODARONE 200 MG (CORDARONE) TAB PO SCH ×2 (08:18→20:51)
[2019-01-15] MEDS: SENNA W/DOCUSATE (SENOKOT S) TABLET PO SCH ×2 (08:19→20:52)
[2019-01-15] MEDS: ASPIRIN E.C. 81 MG (ECOTRIN) TAB PO SCH (08:19)
[2019-01-15] MEDS: ENALAPRIL 5 MG (VASOTEC) TAB PO SCH ×2 (08:57→20:51)
--- NOTE | 2019-01-15 09:30 | Physical Therapy Daily Note ---
PT Daily Note-Current Subjective Patient is in bed and agrees to PT. Pain Numeric Pain Scale: 8 Location: Right Location Body Site: Knee Pain Description: Acute Mental Status Patient Orientation: Person, Time, Situation Attachments: Oxygen, IV Transfers Therapy Code Descriptions/Definitions Functional Media Measure: 0=Not Assessed/NA 4=Minimal Assistance 1=Total Assistance 5=Supervision or Setup 2=Maximal Assistance 6=Modified Media 3=Moderate Assistance 7=Complete Media Therapy Quality Codes: 6 Independent with activity with or without an assistive device 5 Patient requires set up or clean up by helper. Patient completes activity by themselves 4 Supervision or touching assist (CGA). Bath provide cues , steadying assist 3 The helper provides less than half the effort to complete the activity 2 The helper provides more than half the effort to complete the activity 1 Dependent. The helper does all the effort to complete an activity 7 Patient refused to complete or attempt activity 9 The patient did not perform the activity before the current illness or injury 88 Not attempted due to Medical conditions or safety concerns Transfers (B, C, W/C) (FIM): 3 Scootin Rollin Supine to/from Sit: 3 Sit to/from Stand: 4 Bed to/from Chair: 4 Patient has minimal core strength to perform bed mobility activity. Weight Bearing Right Lower Extremity: Right Weight Bearing/Tolerated Gait Training Gait (FIM): 1 Distance (FIM): 1=up to 49 ft Distance: 20' Gait Level of Assist: 4 Gait Persons Needed: 1 Gait Assistive Device: FWW decreased step length/antalgic Exercises Supine Ex: Ankle pumps, Quad Set, Heel Slides, Straight leg raise Supine Reps: 15 (AAROM right LE) Seated Therapy Exercises: Ankle pumps, Long arc quads Seated Reps: 15 Assessment Patient is up in recliner with needs met. Polar pack in place and pain med issued per RN. PT Short Term Goals Short Term Goals Time Frame: Jan 21, 2019 Transfers (B,C,W/C) (FIM): 5 Gait (FIM): 2 Gait Distance Comment: 50' Gait Level of Assist: 4 Gait Assistive Device: FWW PT Plan Treatment/Plan Treatment Plan: Continue Plan of Care Treatment Plan: Bed Mobility, Education, Functional Activity Nilda, Functional Strength, Gait, Safety, Therapeutic Exercise, Transfers Treatment Duration: Jan 21, 2019 Frequency: 11 times per week Estimated Hrs Per Day: .25 hour per day Patient and/or Family Agrees t: Yes Time/GCodes Time In: 800 Time Out: 824 Total Billed Treatment Time: 24 Total Billed Treatment 1 visit EX 15 min GT 9 min LUCÍA HUSTON PT Jan 15, 2019 09:30
--- NOTE | 2019-01-15 10:44 | Consultation ---
MARILUZ MARQUES,MED STUDENT 01/15/19 1044: HPI History of Present Illness: 73 year old male states was here for a right total knee arthroplasty. Surgery was 01/14/[address] Dumont. Prior to surgery the patient states he had continued right knee pain that did not resolve with medications. He states he is feeling well at this time with mild right knee pain. He was able to get up and ambulate with physical therapy this morning. He denies paraesthesia at this time. He and his discussed a desire to consider a rehabilitation center upon discharge. Source: patient, family Exam Limitations: no limitations Date seen by provider: Jan 15, 2019 Time Seen by Provider: 10:20 Attending Physician Jayro Dumont MD PCP Chantell Lopez DO Consult Winsome Westbrook MD Date of Admission Jan 14, 2019 at 06:13 Home Medications Home Medications Reviewed patient Home Medication Reconciliation performed by pharmacy medication reconciliations plant maintenance technician and/or nursing. Patients Allergies have been reviewed. Allergies Coded Allergies: Sulfa (Sulfonamide Antibiotics) (Verified Allergy, Unknown, 01/14/19) GRS-[id number]-[id number] Hx Patient Social History Marrital Status: Alcohol Use: Rarely Uses Recreational Drug Use: No Smoking Status: Never a Smoker 2nd Hand Smoke Exposure: No Recent Foreign Travel: No Contact w/other who traveled: No Recent Hopitalizations: No Recent Infectious Disease Expo: No Physical Abuse Screen: No Sexual Abuse: No Immunizations Up To Date Tetanus Booster (TDap): Unknown Date of Pneumonia Vaccine: Jan 22, 2008 Date of Influenza Vaccine: Mar 10, 2018 Past Medical History PMedHx: Sleep Apnea - noncompliant with CPAP Obesity, BMI 36.8 Stroke - September 2007 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 Mild regurgitation. Moderate Tricuspid regurgitation PSurgHx: Cardiac Cath - 2013, 2016 Pacemaker - 2007; Generatory Change 2016 Right Total Shoulder Right Knee Arthroscopy Colonoscopy Abdominal Lipoma Excision Family Medical History Significant Family History: No Pertinent Family Hx Family History: Cardiovascular disease 19 MOTHER Review of Systems ([facility]) Constitutional: No chills, No fever Respiratory: No cough, No short of breath, No wheezing Cardiovascular: No chest pain, No palpitations Gastrointestinal: No abdominal pain, No constipation, No diarrhea, No nausea, No vomiting Musculoskeletal: joint pain (right knee) Skin: No rash Psychiatric/Neurological: Denies Headache, Denies Paresthesia Reviewed Test Results Reviewed Test Results Lab Laboratory Tests 01/14/19 06:46: Prothrombin Time 19.5H, INR Comment 1.6H 01/14/19 07:15: Glucometer 147H 01/15/19 05:52: Hemoglobin 13.2L, Hematocrit 43 Radiology R Knee X-Ray: Stable postoperative right knee. Physical Exam-([facility]) Physical Exam Vital Signs VS - Last 72 Hours, by Label 01/14/19 01/14/19 01/14/19 01/14/19 06:30 06:30 08:44 10:26 Temp 36.2 36.2 Pulse 60 60 Resp 20 20 B/P (MAP) 126/73 126/73 Pulse Ox 96 96 O2 Delivery Room Air Room Air Room Air OxyMask O2 Flow Rate 6 01/14/19 01/14/19 01/14/19 01/14/19 10:26 10:30 10:40 10:40 Temp 36.2 Resp 17 18 18 Pulse Ox 95 98 97 O2 Delivery OxyMask OxyMask OxyMask OxyMask O2 Flow Rate 6 6 6 6 01/14/19 01/14/19 01/14/19 01/14/19 10:50 10:55 11:00 11:10 Resp 18 18 18 Pulse Ox 100 100 99 O2 Delivery OxyMask OxyMask OxyMask Room Air O2 Flow Rate 6 6 6 01/14/19 01/14/19 01/14/19 01/14/19 11:10 11:20 11:25 11:25 Temp 36.3 Resp 18 18 Pulse Ox 97 97 O2 Delivery Room Air Room Air Room Air Room Air 01/14/19 01/14/19 01/14/19 01/14/19 12:00 14:21 15:05 16:05 Temp 37.3 Pulse 66 Resp 20 17 B/P (MAP) 130/56 Pulse Ox 94 93 O2 Delivery Room Air Room Air Room Air 01/14/19 01/14/19 01/14/19 01/14/19 18:40 19:55 20:30 20:34 Temp 38.0 38.0 Pulse 65 Resp 18 B/P (MAP) 130/56 Pulse Ox 96 97 O2 Delivery Nasal Cannula Nasal Cannula Room Air O2 Flow Rate 3.00 3.00 01/14/19 01/14/19 01/14/19 01/14/19 21:20 21:21 22:15 23:47 Temp 37.6 37.6 37.3 Pulse 62 Resp 14 B/P (MAP) 156/74 Pulse Ox 96 97 O2 Delivery Nasal Cannula Nasal Cannula O2 Flow Rate 3.00 3.00 01/15/19 01/15/19 01/15/19 01/15/19 02:00 03:55 06:45 07:44 Temp 37.4 37.6 Pulse 72 66 Resp 16 18 B/P (MAP) 171/80 158/67 Pulse Ox 95 97 96 95 O2 Delivery Nasal Cannula Nasal Cannula Nasal Cannula Nasal Cannula O2 Flow Rate 3.00 3.00 3.00 2.00 01/15/19 01/15/19 08:00 10:47 Pulse Ox 97 O2 Delivery Nasal Cannula Nasal Cannula O2 Flow Rate 2.00 2.00 Capillary Refill : Less Than 3 Seconds General Appearance: WD/WN, no apparent distress Respiratory: chest non-tender, lungs clear, normal breath sounds, no respiratory distress, no accessory muscle use Cardiovascular: regular rate, rhythm, no murmur Gastrointestinal: normal bowel sounds, non tender, soft Extremities: other (Right Knee in Postop bandage) Neurologic/Psychiatric: alert, normal mood/affect, oriented x 3 Skin: normal color, warm/dry Assessment/Plan Assessment/Plan Admission Dx Total Right Knee Arthroplasty Assessment & Plan Continue PT. Wound consult for sacral decubitus ulcer. Patient and would like to consider going to a rehabilitation center to regain strength post surgery. Currently on 2L O2, denies use of oxygen at home. Will continue to try and decrease oxygen as tolerated. Encouraged patient to use inspiratory spirometer. Clinical Quality Measures DVT/VTE Risk/Contraindication: Risk Factor Score Per Nursin RFS Level Per Nursing on Admit: 4+=Very High WINSOME WESTBROOK MD 01/15/19 1804: HPI History of Present Illness: In addition to above patient has h/o atrial fibrillation treated with amiodarone and warfarin, NIDDM treated with actos and metformin, and HTN. States that his medical conditions are well controlled. States that he is not sure what his last A1c was. Home Medications Allergies Coded Allergies: Sulfa (Sulfonamide Antibiotics) (Verified Allergy, Unknown, 01/14/19) IQT-Pioheg-Hppefk Hx Patient Social History Living Status: Lives in home with Family Medical History Family History: Cardiovascular disease 19 MOTHER Review of Systems ([facility]) Constitutional: no symptoms reported; No fever, No malaise EENTM: no symptoms reported; No mouth pain, No mouth swelling, No nose pain, No throat pain, No throat swelling Respiratory: No cough; dyspnea on exertion; No orthopnea, No short of breath Cardiovascular: no symptoms reported; No chest pain, No edema, No palpitations Gastrointestinal: no symptoms reported; No constipation, No diarrhea, No loss of appetite, No nausea, No vomiting Genitourinary: no symptoms reported; No dysuria, No frequency, No hematuria Musculoskeletal: joint pain (right knee) Skin: no symptoms reported; No lesions, No rash Psychiatric/Neurological: Weakness Physical Exam-([facility]) Physical Exam General Appearance: WD/WN, no apparent distress HEENT: PERRL/EOMI, pharynx normal Neck: non-tender, full range of motion, supple Respiratory: chest non-tender, lungs clear, normal breath sounds, no respiratory distress, no accessory muscle use Cardiovascular: normal peripheral pulses, regular rate, rhythm, no murmur Gastrointestinal: normal bowel sounds, non tender, soft, no organomegaly Back: no CVA tenderness, no vertebral tenderness Extremities: normal range of motion, non-tender, other (Right Knee in Postop bandage, 1+ edema present) 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, no motor/sensory deficits, alert, normal mood/affect, oriented x 3 Skin: normal color, warm/dry Lymphatic: no adenopathy Assessment/Plan Assessment/Plan Admission Status: Inpatient Order (span 2 midnights) Reason for Inpatient Admission: Post surgical care (1) Osteoarthritis of right knee Status: Chronic Assessment & Plan: POD #1 s/p Right total knee, Dr Torres managing, likely to IRF Qualifiers: Qualified Codes: M17.11 - Unilateral primary osteoarthritis, right knee (2) CAD (coronary artery disease), nondalton coronary artery Status: Chronic Permanent Comment: Cardiac Cath 2015 50-60% distal LAD stenosis 50-60% stenosis at proximal and mid RCA 50% circumflex stenosis followed by aneurysmal dilation EF 60% Elevated left end diastolic pressure Last Edited By: Olena Toussaint on Nov 04, 2017 20:39 Assessment & Plan: - Continue home meds Qualifiers: Qualified Codes: I25.10 - Atherosclerotic heart disease of nondalton coronary artery without angina pectoris (3) Dyslipidemia Status: Chronic Assessment & Plan: - Continue home statin (4) Type II diabetes mellitus with complication Status: Chronic Assessment & Plan: - Holding metformin while inpatient, SSI, A1c pending (5) Anxiety Status: Chronic Assessment & Plan: - Continue home meds (6) History of stroke Status: Chronic (7) DVT prophylaxis Status: Acute Assessment & Plan: - Lovenox, Patient was on coumadin prior to admission will need transition back when patient goes to IRF Supervisory-Addendum Brief Verification & Attestation Participated in pt care: history, physical Personally performed: exam, history Care discussed with: Medical Student Procedures: n/a I personally have seen and evaluated the patient and performed the physical exam. I agree with the documented assessment and plan. MARILUZ MARQUES,MED STUDENT Jan 15, 2019 10:44 WINSOME WESTBROOK MD Jan 15, 2019 18:04
--- NOTE | 2019-01-15 11:00 | Occupational Therapy Eval ---
OT Evaluation-General/PLF Medical Diagnosis Admission Date Jan 14, 2019 at 06:13 Medical Diagnosis: right TKA Onset Date: Jan 14, 2019 Therapy Diagnosis Therapy Diagnosis: Weakness Height/Weight Height (Feet): 5 Height (Inches): 8.50 Weight (Pounds): 216 Weight (Ounces): 0.0 Precautions Precautions/Isolations: Fall Prevention, Standard Precautions Safety Interventions: None Weight Bear Status Weight Bearing Restriction: Weight Bearing/Tolerated Referral Physician: Edwin Najera APRN Referral Reason: Activity Tolerance, Self Care, Evaluation/Treatment, Strengthening/ROM Medical History Pertinent Medical History: CAD, CVA, DM, Dementia, HTN Additional Medical History Pacemaker, right total shoulder Current History Pt. had elective right knee surgery. Spouse in room and states that pt. has been debilitated with his knee since the beginning of November. Pt. has also only been using walker since beginning november. Reviewed History: Yes Social History Home: Single Level Current Living Status: Spouse Entry Into Home: Stairs With Railing Steps Into Home: 4 ADL-Prior Level of Function Therapy Code Descriptions/Definitions Functional [place] Measure: 0=Not Assessed/NA 4=Minimal Assistance 1=Total Assistance 5=Supervision or Setup 2=Maximal Assistance 6=Modified [place] 3=Moderate Assistance 7=Complete [place] Therapy Quality Codes: 6 Independent with activity with or without an assistive device 5 Patient requires set up or clean up by helper. Patient completes activity by themselves 4 Supervision or touching assist (CGA). Funk provide cues , steadying assist 3 The helper provides less than half the effort to complete the activity 2 The helper provides more than half the effort to complete the activity 1 Dependent. The helper does all the effort to complete an activity 7 Patient refused to complete or attempt activity 9 The patient did not perform the activity before the current illness or injury 88 Not attempted due to Medical conditions or safety concerns Functional Abilities and Goals: Independent: Patient completed the activities by him/herself, with or without an assistive device, with no assistance from a helper. Needed Some Help: Patient needed partial assistance from another person to complete activities. Dependent: A helper completed the activities for the patient. Unknown: Not Applicable: ADL PLOF Comments Spouse reports that she has been helping pt.since beginning november due to knee pain. Otherwise, pt. was independent with daily tasks. Self Care: Needed Some Help Functional Cognition: Unknown DME/Equipment: Shower DME/Equipment Comments Pt. has walker. OT Current Status Subjective Pt. reports 10/10 pain in right knee. Pt. has GEOLOGICAL E LOGGER but is unclear on using it. Pt. encouraged to push the button before transferring with this OT due to his reported pain level. Appearance Pt. up in chair. Slightly confused per spouse. Cues to sequence and problem solve. Mental Status/Objective Patient Orientation: Person, Confused Attachments: IV, Oxygen Current Upper Extremity ROM WFL ADL-Treatment Therapy Code Descriptions/Definitions Functional [place] Measure: 0=Not Assessed/NA 4=Minimal Assistance 1=Total Assistance 5=Supervision or Setup 2=Maximal Assistance 6=Modified [place] 3=Moderate Assistance 7=Complete [place] Therapy Quality Codes: 6 Independent with activity with or without an assistive device 5 Patient requires set up or clean up by helper. Patient completes activity by themselves 4 Supervision or touching assist (CGA). Funk provide cues , steadying assist 3 The helper provides less than half the effort to complete the activity 2 The helper provides more than half the effort to complete the activity 1 Dependent. The helper does all the effort to complete an activity 7 Patient refused to complete or attempt activity 9 The patient did not perform the activity before the current illness or injury 88 Not attempted due to Medical conditions or safety concerns Lower Body Dressing (FIM): 2 (Pt. unable to doff slipper socks while seated in chair.) Transfers (B, C, W/C) (FIM): 2 (Max cues on how to position self in chair to prepare for transfer. Max assist sit-stand. Increased time needed, max cues, and mod assist to take several steps toward bed. Max assist sit-supine.) Other Treatments After pt. transferred to bed, polar pack, SCDs, and CPM machine applied. Pt. reports being comfortable. Education OT Patient Education: Correct positioning, Modified ADL techniques, Progress toward Goal/Update tx plan, Purpose of tx/functional activities, Reviewed precautions, Rehab process, Transfer techniques Teaching Recipient: Patient Teaching Methods: Demonstration, Discussion Response to Teaching: Verbalize Understanding, Return Demonstration OT Short Term Goals Short Term Goals Time Frame: Jan 22, 2019 Eating(FIM): 5 Grooming(FIM): 5 Bathing(FIM): 3 Upper Body Dressing(FIM): 4 Lower Body Dressing(FIM): 3 Toileting(FIM): 3 Transfers (B,C,W/C) (FIM): 4 Toilet/Commode Transfer(FIM): 4 Shower Transfer(FIM): 4 Additional Short Term Goals: 1-Demonstrate ADL Tasks, 2-Verbalize Understanding, 3-ImproveStrength/Nilda 1=Demonstrate adherence to instructed precautions during ADL tasks. 2=Patient will verbalize/demonstrate understanding of assistive devices/modifications for ADL. 3=Patient will improve strength/tolerance for activity to enable patient to perform ADL's. OT Fpc Goals Digital Community Manager Goals Time Frame: Jan 29, 2019 Eating (FIM): 6 Grooming(FIM): 6 Bathing(FIM): 5 Upper Body Dressing(FIM): 6 Lower Body Dressing(FIM): 6 Toileting(FIM): 6 Transfers (B,C,W/C) (FIM): 6 Toilet/Commode Transfer(FIM): 6 Shower Transfer(FIM): 5 Additional Goals: 1-Demonstrate ADL Tasks, 2-Verbalize Understanding, 3- ImproveStrength/Nilda 1=Demonstrate adherence to instructed precautions during ADL tasks. 2=Patient will verbalize/demonstrate understanding of assistive devices/modifications for ADL. 3=Patient will improve strength/tolerance for activity to enable patient to perform ADL's. OT Education/Plan Problem List/Assessment Assessment: Decreased Activ Tolerance, Decreased UE Strength, Dependent Transfers, Impaired Bed Mobility, Impaired Funct Balance, Impaired I ADL's, Impaired Self-Care Skills Discharge Recommendations Plan/Recommendations: Continue POC Therapy Discharge Recommendati: Other, See Comments (Spouse is requesting for pt. to come to inpt. rehab.), Post Acute OT Equpiment Recommendations-D/C: Bath Chair, Hip Kit Treatment Plan/Plan of Care Treatment,Training & Education: Yes Patient would benefit from OT for education, treatment and training to promote independence in ADL's, mobility, safety and/or upper extremity function for ADL's. Plan of Care: ADL Retraining, Functional Mobility, UE Funct Exercise/Act Treatment Duration: Jan 29, 2019 Frequency: 5 times per week Estimated Hrs Per Day: .5 hour per day Agreement: Yes Rehab Potential: Fair Time/GCodes Start Time: 10:07 Stop Time: 10:37 Total Time Billed (hr/min): 30 Billed Treatment Time 1, EVH x 15minutes, FA x 15minutes SABI YOUNG OT Jan 15, 2019 11:00
--- NOTE | 2019-01-15 11:20 | NUR ---
IRF Evaluation Order received to evaluate patient for the ARU. Chart review complete and findings discussed with Dr. Márquez - patient accepted. CM/SS notified. Met with patient to discuss details specific to rehabilitation program. Patient agreeable to required therapy regimen and admission. Thank you for this referral.
[2019-01-15 11:59] VITALS: BP 174/77
--- NOTE | 2019-01-15 12:44 | NUR ---
CM/SS, respond to consult. Tentative plan is for transfer to IRF when arrangements are complete, updated Dr. Dumont. Visited with patient and spouse, Krystal Giron. Patient was IADL and going to the gym prior to November 2018 when his knee began to have increasing pain and he started using a FWW for ambulation. HHC: If appropriate to care plan, patient/spouse indicate their preferred agency to be [facility]. DME: Patient has FWW. He does not have home O2, he has/had CPAP but refuses to wear. Patient has been sleeping at home for an extended period in a regular recliner and apparently has a sacral decubitis. Additionally he was less mobile due to knee pain and was spending more time in the recliner that just night for sleep. Patient and spouse plan for his return home when able to do so. They indicate they reside [place] and that he has to turn his FWW sideways to get through the bathroom door. Access coaching should be considered during therapy for safety.
--- NOTE | 2019-01-15 13:10 | NUR ---
Pastoral care visit.
--- NOTE | 2019-01-15 13:48 | Physical Therapy Daily Note ---
PT Daily Note-Current Subjective Patient is in bed. Appears confused. Noted shaking bilateral extremities. Pain Numeric Pain Scale: 10-Worst Possible Pain Location: Right Location Body Site: Knee Pain Description: Acute Mental Status Patient Orientation: Confused Attachments: Oxygen, IV Transfers Therapy Code Descriptions/Definitions Functional [place] Measure: 0=Not Assessed/NA 4=Minimal Assistance 1=Total Assistance 5=Supervision or Setup 2=Maximal Assistance 6=Modified [place] 3=Moderate Assistance 7=Complete [place] Therapy Quality Codes: 6 Independent with activity with or without an assistive device 5 Patient requires set up or clean up by helper. Patient completes activity by themselves 4 Supervision or touching assist (CGA). Leonidas provide cues , steadying as sist 3 The helper provides less than half the effort to complete the activity 2 The helper provides more than half the effort to complete the activity 1 Dependent. The helper does all the effort to complete an activity 7 Patient refused to complete or attempt activity 9 The patient did not perform the activity before the current illness or injury 88 Not attempted due to Medical conditions or safety concerns Transfers (B, C, W/C) (FIM): 4 Scootin Rollin Supine to/from Sit: 4 Sit to/from Stand: 4 Bed to/from Chair: 4 Weight Bearing Right Lower Extremity: Right Weight Bearing/Tolerated Gait Training Gait (FIM): 2 Distance (FIM): 4=085-62 ft Distance: 75' Gait Level of Assist: 4 Gait Persons Needed: 1 Gait Assistive Device: FWW extended UE's with FWW use, flexed knee posture, step to gait sequence Exercises Supine Ex: Ankle pumps, Quad Set, Heel Slides, Straight leg raise, Hip abd/add Supine Reps: 15 (AROM) Seated Therapy Exercises: Ankle pumps, Long arc quads Seated Reps: 15 (AROM) Assessment Patient is up in recliner. Polar pack in place. Patient continues to appear confused. Spouse concerned. RN aware. PT Short Term Goals Short Term Goals Time Frame: Jan 21, 2019 Transfers (B,C,W/C) (FIM): 4 Gait (FIM): 2 Gait Distance Comment: 50' Gait Level of Assist: 4 Gait Assistive Device: FWW PT Plan Treatment/Plan Treatment Plan: Continue Plan of Care Treatment Plan: Bed Mobility, Education, Functional Activity Nilda, Functional Strength, Gait, Safety, Therapeutic Exercise, Transfers Treatment Duration: Jan 21, 2019 Frequency: 11 times per week Estimated Hrs Per Day: .25 hour per day Patient and/or Family Agrees t: Yes Time/GCodes Time In: 1300 Time Out: 1335 Total Billed Treatment Time: 35 Total Billed Treatment 1 visit EX 16 min GT 19 min LUCÍA HUSTON PT Jan 15, 2019 13:48
[2019-01-15 16:00] VITALS: BP 165/77
--- NOTE | 2019-01-15 17:31 | Anesthesia-General Post-Op ---
General Patient Condition Mental Status/LOC: Same as Preop Cardiovascular: Satisfactory Nausea/Vomiting: Absent Respiratory: Satisfactory Pain: Controlled Complications: Absent Post Op Complications Complications None Follow Up Care/Instructions Patient Instructions None needed. Anesthesia/Patient Condition Patient Condition Patient is doing well, no complaints, stable vital signs, no apparent adverse anesthesia problems. No complications reported per nursing. PARESH VIVAS CRNA Jan 15, 2019 17:31
[2019-01-15] MEDS ORDERED: CLONAZEPAM 1 MG PO PRN (18:00)
[2019-01-15] MEDS ORDERED: clonazePAM 1 MG (KlonoPIN) TAB PO PRN (18:15)
[2019-01-15 19:40] VITALS: BP 168/75
[2019-01-15 23:41] VITALS: BP 166/78
[2019-01-16] MEDS: NS IV 1000 ML 1,000 ML IV SCH (03:05)
[2019-01-16 04:04] VITALS: BP 162/75
[2019-01-16 05:41] LABS: HEMOGLOBIN 11.6 G/DL (13.3-17.7)
[2019-01-16] MEDS: ENOXAPARIN 30 MG/0.3 ML (LOVENOX) SYR SC SCH (06:32)
[2019-01-16] MEDS: MULTIVIT W/MINERALS TAB (THERAGRAN M) PO SCH (06:32)
--- NOTE | 2019-01-16 06:40 | NUR ---
Dr Dumont here. drsg changed.
[2019-01-16] MEDS: oxyCODONE/APAP 5/325MG (PERCOCET 5) TABLET PO PRN (06:44)
--- NOTE | 2019-01-16 06:49 | Progress Note ---
Standard Progress Note Progress Notes/Assess & Plan Date Seen by a Provider: Jan 16, 2019 Time Seen by a Provider: 06:48 Progress/Assessment & Plan post op check no complaints denies paresthesias radiographs--HW well positioned without fracture RLE--2 plus DP pulse with brisk cap refill. Intact DF and PF of toes and ankle. Intact sensation to light touch throughout s/p RTKA mobilize as able patient will likely require inpatient rehab placement Final Diagnosis no complaints feeling better Vital Signs Date Time Temp Pulse Resp B/P (MAP) Pulse Ox O2 Delivery O2 Flow Rate FiO2 01/16/19 06:26 96 Nasal Cannula 3.00 01/16/19 04:04 37.8 79 15 162/75 93 Nasal Cannula 1.00 01/16/19 01:50 92 Nasal Cannula 3.00 01/15/19 23:41 38.2 78 18 166/78 95 Nasal Cannula 1.00 01/15/19 21:58 94 Nasal Cannula 2.00 01/15/19 19:40 37.5 76 16 168/75 94 Nasal Cannula 1.00 01/15/19 18:40 94 Nasal Cannula 1.00 01/15/19 16:00 37.6 80 16 165/77 97 Nasal Cannula 1.00 01/15/19 14:58 88 Room Air 01/15/19 14:46 94 Nasal Cannula 2.00 01/15/19 11:59 38.5 75 18 174/77 95 Nasal Cannula 1.00 01/15/19 10:47 97 Nasal Cannula 2.00 01/15/19 08:00 Nasal Cannula 2.00 01/15/19 07:44 37.6 66 18 158/67 95 Nasal Cannula 2.00 I & O 01/16/19 07:00 Intake Total 868 ml Output Total 1250 ml Balance -382 ml Laboratory Tests Test 01/16/19 05:15 01/16/19 05:25 Range/Units Hemoglobin 11.6 L 13.3-17.7 G/DL Hematocrit 38 L 40-54 % RLE--incision clean and dry. No calf tenderness. Neg SLR s/p RTKA transfer to IRU when bed available MARCO DIETZ MD Jan 16, 2019 06:49
[2019-01-16] MEDS ORDERED: morphine INJ 4 MG/ML 1 ML (VIAL/SYRINGE) IVP PRN (07:00)
[2019-01-16 07:51] VITALS: BP 151/74
[2019-01-16] MEDS: AMIODARONE 200 MG (CORDARONE) TAB PO SCH (08:48)
[2019-01-16] MEDS: ENALAPRIL 5 MG (VASOTEC) TAB PO SCH (08:48)
[2019-01-16] MEDS: SENNA W/DOCUSATE (SENOKOT S) TABLET PO SCH (08:49)
[2019-01-16] MEDS: ASPIRIN E.C. 81 MG (ECOTRIN) TAB PO SCH (08:49)
[2019-01-16 12:12] VITALS: BP 171/68
[2019-01-16 12:20] VITALS: BP 151/74
--- NOTE | 2019-01-17 04:54 | DISCHARGE SUMMARY ---
DATE OF SERVICE: DIAGNOSES: 1. Right knee primary osteoarthritis. 2. History of cerebrovascular accident. 3. Venous insufficiency. 4. Early dementia. 5. Type 2 diabetes mellitus. PROCEDURE: Right total knee arthroplasty. SUMMARY: The patient is a 73-year-old gentleman who underwent a right total knee arthroplasty on the day of admission. Postoperatively, he was progressing well. His wound was clean and dry. He had no calf tenderness and negative Homans sign. CONDITION AT DISCHARGE: Good. DISCHARGE DISPOSITION: Transferred to the inpatient rehabilitation unit for continued physical and occupational therapy. Job ID: [id number] DocumentID: [id number] Dictated Date: 01/16/2019 06:47:03 Orthotic Practitioner Date: 01/17/2019 04:53:47 Dictated By: MARCO DIETZ MD
== END 2019-01-16 12:30 | DRG 470 ==
LOC: 4TH 06:13 → SURG 06:14 → 4TH 11:25
PROVIDERS: ADMIT Orthopaedic Surgery; ATTEND Orthopaedic Surgery
PROC: 0SRC0J9 Replacement of Right Knee Joint with Synthetic Substitute, Cemented, Open Approach (ICD-10-PCS; principal; 2019-01-14 08:43)
DX: M17.11 Unilateral primary osteoarthritis, right knee (principal); L89.312 Pressure ulcer of right buttock, stage 2; E11.9 Type 2 diabetes mellitus without complications; I87.2 Venous insufficiency (chronic) (peripheral); F03.90 Unspecified dementia, unspecified severity, without behavioral disturbance, psychotic disturbance, mood disturbance, and anxiety; G47.30 Sleep apnea, unspecified; E66.9 Obesity, unspecified; I69.398 Other sequelae of cerebral infarction; H54.62 Unqualified visual loss, left eye, normal vision right eye; I10 Essential (primary) hypertension; I25.10 Atherosclerotic heart disease of native coronary artery without angina pectoris; F41.9 Anxiety disorder, unspecified; F32.9 Major depressive disorder, single episode, unspecified; G47.00 Insomnia, unspecified; G89.29 Other chronic pain; I65.29 Occlusion and stenosis of unspecified carotid artery; E78.5 Hyperlipidemia, unspecified; I08.2 Rheumatic disorders of both aortic and tricuspid valves; Z96.612 Presence of left artificial shoulder joint; Z79.84 Long term (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 oral hypoglycemic drugs; Z68.32 Body mass index [BMI] 32.0-32.9, adult; Z95.0 Presence of cardiac pacemaker; Z91.19 Patient's noncompliance with other medical treatment and regimen; Z79.01 Long term (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; Z88.2 Allergy status to sulfonamides
CPT/HCPCS: 36415; 73560; 82962; 83036; 85014; 85018; 85610; 86850; 86900; 86901; 94664; 94760

== ENCOUNTER 2019-01-16 12:15 | Inpatient (IN) | payer MEDICARE, OTHER ==
[~2019-01-16] VITALS: Ht 172.7 cm; Wt 101.3 kg
[~2019-01-16 12:15] MED LIST changes: +OXYC1TAB87 PO
--- NOTE | 2019-01-16 12:15 | NUR ---
Giuliano Giron admitted to room 224-1, with an admitting diagnosis of , on 01/16/19 from Fourth Floor, Medical-Surgical via Wheelchair, accompanied by Staff members and .NATHAN GIRON introduced to surroundings, call light, bed controls, phone, TV, temperature control, lights, meal times, smoking policy, visitor policy, side rail policy, bathrooms and showers. Patient Rights given to patient in the handbook.NATHAN GIRON verbalizes understanding that [facility] is not responsible for the loss or damage to any personal effects or valuables that are kept in the patients posession during their hospitalization. The following Patient Care Plans were discussed with the patient: Discharge Planning, Total Knee Replacement, Impaired mobility. NATHAN GIRON verbalizes understanding of Interdisciplinary Patient Education. Patient and/or family were informed about the Rapid Response Team and its purpose.
--- NOTE | 2019-01-16 14:37 | Physical Therapy Evaluation ---
PT Evaluation-General Medical Diagnosis Admission Date Jan 16, 2019 at 12:15 Medical Diagnosis: right TKA Onset Date: Jan 14, 2019 Therapy Diagnosis Therapy Diagnosis: impaired mobility, strength, endurance, ROM Height/Weight Height (Feet): 5 Height (Inches): 8.50 Weight (Pounds): 216 Weight (Ounces): 0.0 Weight Bear Status Right Lower Extremity: Right Weight Bearing/Tolerated Referral Physician: Eveline Márquez DO Reason for Referral: Evaluation/Treatment Medical History Pertinent Medical History: CAD, CVA, DM, Dementia, HTN Reviewed History: Yes Social History Home: Single Level Current Living Status: Spouse Entry Into Home: Stairs With Railing PT Steps Into Home: 4 Prior/Core FIM Prior Level of Function Therapy Code Descriptions/Definitions Functional [place] Measure: 0=Not Assessed/NA 4=Minimal Assistance 1=Total Assistance 5=Supervision or Setup 2=Maximal Assistance 6=Modified [place] 3=Moderate Assistance 7=Complete [place] Therapy Quality Codes: 6 Independent with activity with or without an assistive device 5 Patient requires set up or clean up by helper. Patient completes activity by themselves 4 Supervision or touching assist (CGA). Gaston provide cues , steadying assist 3 The helper provides less than half the effort to complete the activity 2 The helper provides more than half the effort to complete the activity 1 Dependent. The helper does all the effort to complete an activity 7 Patient refused to complete or attempt activity 9 The patient did not perform the activity before the current illness or injury 88 Not attempted due to Medical conditions or safety concerns Functional Abilities and Goals: Independent: Patient completed the activities by him/herself, with or without an assistive device, with no assistance from a helper. Needed Some Help: Patient needed partial assistance from another person to complete activities. Dependent: A helper completed the activities for the patient. Unknown: Not Applicable: Bed Mobility: 6 Transfers (B,C,W/C) (FIM): 6 Gait: 6 Stairs: 6 Indoor Mobility (Ambulation): Independent Stairs: Independent Patient states he was using a rolling walker previously. PT Evaluation-Current Subjective Patient in bed pre tx, agrees to PT, has 7/10 pain in right knee. Pt/Family Goals to be independent at home Objective Patient Orientation: Person, Place, Situation ROM/Strength ROM Lower Extremities right knee extension +5 degrees, flexion 80 degrees Sensory Vision: Wears Glasses Hearing: Functional Sensation Right Lower Extremit: Intact Sensation Left Lower Extremity: Intact Transfers Therapy Code Descriptions/Definitions Functional [place] Measure: 0=Not Assessed/NA 4=Minimal Assistance 1=Total Assistance 5=Supervision or Setup 2=Maximal Assistance 6=Modified [place] 3=Moderate Assistance 7=Complete [place] Therapy Quality Codes: 6 Independent with activity with or without an assistive device 5 Patient requires set up or clean up by helper. Patient completes activity by themselves 4 Supervision or touching assist (CGA). Gaston provide cues , steadying assist 3 The helper provides less than half the effort to complete the activity 2 The helper provides more than half the effort to complete the activity 1 Dependent. The helper does all the effort to complete an activity 7 Patient refused to complete or attempt activity 9 The patient did not perform the activity before the current illness or injury 88 Not attempted due to Medical conditions or safety concerns Transfers (B, C, W/C) (FIM): 3 Scootin Rollin Roll Left to Right (QC): 2 Supine to/from Sit: 3 Sit to/from Stand: 4 bed t/f WC(FIM only if WC use): 3 Sit to Lying (QC): 2 Lying to Sitting/Side of Bed(Q: 2 Sit to Stand (QC): 3 Chair/Chk-rl-Eisty Xfer(QC): 3 Car Transfer (QC): 3 Patient performs bed mobility with mod assist, supine <-> sit mod assist, sit <- > stand min assist, transfers min assist, car transfer min assist. Patient needs cues for hand placement and positioning, tends to keep walker too far in front and sit before turning completely. Gait Does the Patient Walk?: Yes Mode of Locomotion: Both Gait (FIM): 1 Walk 10 feet (QC): 4 Gait Level of Assist: 4 Gait Persons Needed: 1 Gait Assistive Device: FWW Comments/Gait Description Patient ambulated 10' with a rolling walker with min assist. He cannot ambulate on an uneven surface at this time. Patient steps with each leg just a couple of inches at a time and has no clearance. Very antalgic, slow ambulation. Poor weight bearing on right leg. Wheelchair Training Does the Pt Use a Wheelchair?: Yes Wheelchair (FIM): 1 Stairs Stairs (FIM): 88 If not tested on admit;explain not able to take stairs due to poor weight bearing and foot clearance. Balance Sitting Static: Normal Sitting Dynamic: Normal Standing Static: Poor Standing Dynamic: Poor Treatment standing exercises in the parallel bars x15 (heel raises, mini-squats), seated exercises x15 (hip flexion, LAQ, AP) Assessment/Needs Patient has impaired mobility, strength, endurance, ROM post right TKA. Patient has trouble weight bearing on right leg and has very slow, antalgic ambulation. Rehab Potential: Fair PT Short Term Goals Short Term Goals Time Frame: Jan 23, 2019 Transfers (B,C,W/C) (FIM): 4 Gait (FIM): 1 Gait Distance Comment: 20' Gait Level of Assist: 4 Gait Assistive Device: FWW PT Joiners Supervisor Goals Joiners Supervisor Goals PT Assisted Goals Time Frame: Feb 06, 2019 Transfers (B,C,W/C) (FIM): 5 Sit to Lying (QC): 4 Lying-Sitting on Side/Bed(QC): 4 Sit to Stand (QC): 4 Rollin Roll Left to Right (QC): 4 Chair/Ggu-it-Jfjfc Xfer(QC): 4 Car Transfer (QC): 4 Gait (FIM): 2 Distance: 50' Walk 10 feet (QC): 4 Walk 10ft-Uneven Surface(QC): 4 Walk 50ft with 2 Turns (QC): 4 Gait Level of Assist: 5 Gait Assistive Device: FWW Stairs (FIM): 2 # of Steps: 4 1 Step (curb) (QC): 3 4 Steps (QC): 3 PT Plan Problem List Problem List: Activity Tolerance, Functional Strength, Safety, Balance, Gait, Transfer, Bed Mobility, ROM Treatment/Plan Treatment Plan: Continue Plan of Care Treatment Plan: Bed Mobility, Concurrent Therapy, Education, Functional Activity Nilda, Functional Strength, Group Therapy, Gait, Safety, Therapeutic Exercise, Transfers Treatment Duration: Feb 06, 2019 Frequency: At least 5 of 7 days/Wk (IRF) Estimated Hrs Per Day: 1.5 hours per day Patient and/or Family Agrees t: Yes Safety Risks/Education Patient Education: Gait Training, Transfer Techniques, Correct Positioning, W/C Management, Safety Issues Teaching Recipient: Patient Teaching Methods: Demonstration, Discussion Response to Teaching: Reinforcement Needed Discharge Recommendations Plan Patient will perform bed mobility and transfer training, balance and endurance training, functional strengthening, stair training, gait training, and education, to improve functional mobility and independence at home. Therapy Discharge Recommendati: Intermittent Supervision Time/GCodes Time In: 1215 Time Out: 1300 Total Billed Treatment Time: 45 Total Billed Treatment 1 visit ROYCEM 30' FA 15' MARILEE ROMO PT Jan 16, 2019 14:37
--- NOTE | 2019-01-16 14:41 | ST Cognitive Linguistic Eval ---
Speech Evaluation-General Medical Diagnosis Right knee Onset Date: Jan 14, 2019 Therapy Diagnosis Therapy Diagnosis: Cognitive-Communication Precautions Precautions: Fall Precautions/Isolations: Fall Prevention Referral Referring Physician: Dr. Márquez Reason for Referral: Evaluation/Treatment Medical History Pertinent Medical History: CAD, CVA, DM, Dementia, HTN CAD, CVA, HTN, DM Current History Right knee Reviewed History: Yes Social History Home: Single Level Current Living Status: Spouse Speech PLF-Current Status Prior Level of Function Patient lives at home with his where he was independent for most of his daily needs. Subjective The patient was pleasant and cooperative with the cognitive assessment. Language Eval: Auditory Comprehends Simple Yes/No Ques: Functional Indent/Objects Multiple Whitt: Functional Ident/Pics in Multiple Whitt: Functional Follows 1-Step Commands: Functional Follows Complex Directions: Functional Follows General Conversations: Functional Language Eval: Verbal Language Completes Spontaneous Greeting: Functional Produces Auto, Serial Info: Functional Imitates Simple Words/Phrases: Functional Word Finding: Functional Requests Basic Needs: Functional States Basic Personal Info: Functional Expresses Complex Ideas: Functional Objective Cognitive Domain Attention: WNL Memory: Mild Problem Solving: Functional Executive Functions: WNL Visuospatial Skills: WNL Composite Severity Rating: WNL Clock Drawing Severity Rating: WNL Objective Formal/Standardized Tests [facility] Mental Status ([facility]) Results 28/30, within normal range of function Oral Motor/Speech Production Within Normal Limits Impression The patient is a pleasant 73 year old man who was admitted to the ARU s/p knee surgery. The patient was given the SLUMS with score results of 28/30 which falls within the normal range. The patient does not require skilled ST at this time. Communication/Social Cognition Comprehension: 7 Expression: 7 Social Interaction: 7 Problem Solvin Memory: 6 Speech Patient Assess Expression of Ideas/Wants: Expression (4) Understanding Verbal Content: Understands (4) Brief Interview-Mental Status: Yes Repetition of Three Words: Three (3) Temporal Orientation: Year: Correct (3) Temporal Orientation: Month: Accurate within 5 days(2) Temporal Orientation: Day: Correct (1) Recall : Wear to say "Sock": Yes, no cue required (2) Recall : Color: Yes, no cue required (2) Recall : Bed: Yes,after cueing (1) Memory/Recall Ability: Current season, That he or she is in a hsp/hsp unit Speech-Plan Patient/Family Goals Patient/Family Goals: The patient plans on returning home where he lives with his upon discharge. Treatment Plan Speech Therapy Treatment Plan: Discontinue ST The patient does meet requirements for cognitive therapy at this time. Frequency: 1 time per week Estimated Hrs Per Day: .25 hour per day Rehab Potential: Good Barriers to Learning: None identified Pt/Family Agrees to Plan: Yes Safety Risks/Education Teaching Recipient: Patient Teaching Methods: Discussion Response to Teaching: Verbalize Understanding Education Topics Provided: Safety within his room and communication of wants/needs Time Speech Therapy Time In: 14:15 Speech Therapy Time Out: 14:30 Total Billed Time: 15 Billed Treatment Time 1, SPSNDCOMP JENNIFER Jules Jan 16, 2019 14:41
[2019-01-16] MEDS ORDERED: diphenhydrAMINE 50 MG/ML INJ (BENADRYL) IVP PRN (14:45)
[2019-01-16] MEDS ORDERED: LOPERAMIDE 2 MG (IMODIUM) TABLET PO PRN (14:45)
[2019-01-16] MEDS ORDERED: CALCIUM CARBONATE 500 MG (TUMS) TAB.CHEW PO PRN (14:45)
[2019-01-16] MEDS ORDERED: ALPRAZolam 0.25 MG (XANAX) TAB PO PRN (14:45)
[2019-01-16] MEDS ORDERED: CATHETER FLUSH 10 ML SYR IV PRN (14:45)
[2019-01-16] MEDS ORDERED: ONDANSETRON 4 MG/2 ML (SDV) Z0FRAN IVP PRN (14:45)
[2019-01-16] MEDS ORDERED: morphine INJ 4 MG/ML 1 ML (VIAL/SYRINGE) IVP PRN (14:45)
[2019-01-16] MEDS ORDERED: diphenhydrAMINE 25 MG TAB (BENADRYL) PO PRN (14:45)
[2019-01-16] MEDS ORDERED: clonazePAM 1 MG (KlonoPIN) TAB PO PRN (14:45)
--- NOTE | 2019-01-16 15:00 | Therapy Group Daily Note ---
Therapy Daily Group Note Patient Education Topic Foot Wear, Home Safety, Fall Prevention, Home Safety, Exercises Exercises LE Seated Exercise, Balance, UE Exercise Session Ratio (pt:therapist): 4:1 Goal of Session: Home Safety Strategies, UE/LE Strengthing, Other (joycelyn) (gauri mejia) Goal Met for this Session: Yes Pt Benefit of Group: Contributions to Others, F/U Use of Strategies @Home, Increased Functional Strength, Recognition of Peers, Socialization Other/Notes Each patient participated in group therapy in the common area of rehab. Each patient ambulated or was transported and placed in a [place] to encourage patient interaction and participation. Each patient then had to introduce themselves and answer a question involving critical thinking and recall. Patient's then participated in group discussion and education about home safety and balance and performed UE and LE exercises. Finally, each patient ambulated or was transported back to bed or chair with nurse call, phone, and tray. Start Time: 13:00 Stop Time: 14:10 Total Billed Treatment Time: 70 Total Billed Treatment 1 visit GRP 70MAIRLEE BILL PT Jan 16, 2019 15:00
--- NOTE | 2019-01-16 15:27 | NUR ---
REVIEWED MED REC IT WAS REPORTED UPON ADMISSION TO [facility]. NOTE WHEN THE PATIENT WAS DISCHARGED TO REHAB THERE WAS A NEW ORDER FOR PERCOCET 5-325MG 1 TAB Q4H PRN THAT IS NOT CURRENTLY REFLECTED ON THE HOME MED REC.
--- NOTE | 2019-01-16 15:27 | PM&R H&P / Post Admit Assess ---
History of Present Illness HPI/Chief Complaint Chief complaint: Debility following right total knee replacement History of present illness: This is a 73-year-old white male clinic patient of Aj[facility] and Dr. Fairbanks cardiology who maintains pacemaker who presents to inpatient rehabilitation following severe debility after her right total knee replacement. He had an uncomplicated surgery and is currently in need of aggressive rehabilitation in order return home with his to lessen the burden on his caregiver and improved success when discharged home with improved ambulation fall risk prevention. He had an uneventful hospital course following the surgery and is currently doing well although details are minimal considering his history of dementia but he is able to participate in therapy and obtain benefit from the aggressive inpatient rehabilitation protocol. At this current time patient denies any bowel movement since he arrived at the hospital for his surgery but he is urinating well with good flow and no retention since surgery. Source: patient Exam Limitations: no limitations Date Seen 01/16/19 Time Seen by a Provider: 15:00 Attending Physician Eveline Elder Linda K DO Referring Physician Date of Admission Jan 16, 2019 at 12:15 Home Medications & Allergies Home Medications Reviewed patient Home Medication Reconciliation performed by pharmacy medication reconciliations boiler control technician and/or nursing. Patients Allergies have been reviewed. Allergies Allergies Coded Allergies Sulfa (Sulfonamide Antibiotics) (Verified Allergy, Unknown, 01/14/19) Past Ntlsmwg-Izvvjn-Aartti Hx Past Med/Social Hx: Reviewed Nursing Past Med/Soc Hx, Reviewed and Corrections made Patient Social History Marrital Status: Employed/Student: retired ([employer]) Smoking Status: Never a Smoker 2nd Hand Smoke Exposure: No Recent Hopitalizations: No Immunizations Up To Date Tetanus Booster (TDap): Unknown Date of Pneumonia Vaccine: Jan 22, 2008 Date of Influenza Vaccine: Mar 10, 2018 Seasonal Allergies Seasonal Allergies: No Past Medical History Surgeries: Orthopedic, Pacemaker Currently Using CPAP: No Cardiac: Atrial Fibrillation, High Cholesterol, Hypertension Neurological: Dementia, Stroke Reproductive: No Sexually Transmitted Disease: No Genitourinary: Kidney Stones Gastrointestinal: Chronic Constipation Musculoskeletal: Arthritis, Chronic Back Pain Endocrine: Diabetes, Non-Insulin dep Psychosocial: Anxiety, Depression History of Blood Disorders: No Adverse Reaction to Blood Zimmerman: No Family History Cardiovascular disease 19 MOTHER No Pertinent Family Hx Review of Systems Constitutional: see HPI EENTM: no symptoms reported Respiratory: no symptoms reported Cardiovascular: no symptoms reported Gastrointestinal: constipation Genitourinary: no symptoms reported Musculoskeletal: joint pain Skin: no symptoms reported All Other Systems Reviewed Negative Unless Noted: Yes Physical Exam Exam Vital Signs Vital Signs Date Time Temp Pulse Resp B/P (MAP) Pulse Ox O2 Delivery O2 Flow Rate FiO2 01/16/19 16:48 38.4 01/16/19 16:42 78 16 135/60 Nasal Cannula 2.00 Capillary Refill : General Appearance: No Apparent Distress, WD/WN, Chronically ill, Obese HEENT: PERRL/EOMI, Normal ENT Inspection, Pharynx Normal, Moist Mucous Membranes Neck: Full Range of Motion, Normal Inspection, Non Tender, Supple Respiratory: Chest Non Tender, Lungs Clear, Normal Breath Sounds, No Accessory Muscle Use, No Respiratory Distress Cardiovascular: Regular Rate, Rhythm, No Edema, No Gallop, No JVD, No Murmur Gastrointestinal: Normal Bowel Sounds, No Organomegaly, No Pulsatile Mass, Non Tender, Soft Back: Normal Inspection, No CVA Tenderness, No Vertebral Tenderness Extremity: Normal Capillary Refill, Normal Inspection, Normal Range of Motion (except for right knee postop), Non Tender, No Calf Tenderness, No Pedal Edema Neurologic/Psychiatric: Alert, Oriented x3, No Motor/Sensory Deficits, Normal Mood/Affect Skin: Normal Color, Warm/Dry Lymphatic: No Adenopathy Results Results/Procedures Labs Patient resulted labs reviewed. Assessment/Plan Assessment and Plan Assess & Plan/Chief Complaint Plan: Inpatient rehabilitation protocol Intense bowel regimen until constipation resolved Home meds DVT prophylaxis Monitor labs Monitor blood pressure Monitor postop fever (1) Status post right knee replacement Status: Acute (2) DVT prophylaxis Status: Acute (3) Osteoarthritis of right knee Status: Chronic (4) History of stroke Status: Chronic (5) CAD (coronary artery disease), [place] coronary artery Status: Chronic Qualifiers: [place] vs. transplanted heart: [place] heart Associated angina: without angina Qualified Codes: I25.10 - Atherosclerotic heart disease of [place] coronary artery without angina pectoris (6) Dyslipidemia Status: Chronic (7) Type II diabetes mellitus with complication Status: Chronic (8) Anxiety Status: Chronic (9) Chronic GERD Status: Chronic (10) Obesity (BMI 30-39.9) Status: Chronic (11) Hearing difficulty Status: Chronic (12) Major depression, recurrent Status: Chronic (13) Pacemaker Status: Chronic (14) Chronic fatigue Status: Chronic (15) Sleep apnea Status: Chronic (16) Hypoxia Status: Chronic (17) Arthritis Status: Chronic (18) Insomnia Status: Chronic (19) Concentric left ventricular hypertrophy Status: Chronic (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 (21) Grade II diastolic dysfunction Status: Chronic (22) Hypertension Status: Chronic (23) Frequent falls Status: Acute (24) Physical debility Status: Acute Post Admission Physician Asses Date seen by provider: Jan 16, 2019 Time seen by provider: 15:00 Admisison Dx: (1) Status post right knee replacement Status: Acute The preadmission screen agrees with the post admission assessment that the patient is a good candidate for inpatient rehabilitation. The patient will have a comprehensive program of inpatient rehabilitation with a goal of maximizing level of functional independence prior to discharge home with . The patient will have PT/OT ninety minutes per day, each discipline, five days a week for gait, strengthening, conditioning, balance, ADLs, any patient/family/caregiver training as necessary. Speech therapy to do cognitive assessment and treat as indicated. Rehabilitation nursing to assist with bowel, bladder, skin, wound care, medication administration, pain management. Hand I Blocker to assist with discharge planning, community reentry. SCD's for DVT p rophylaxis. He appears to be well motivated to participate in three hours of therapy a day. He should be able to tolerate three hours of therapy a day from a medical standpoint. He should benefit from the three hours of therapy a day. He has a reasonable discharge plan, reasonable discharge rehabilitation goals and a supportive family. He has various comorbidities that need to be closely monitored with medications and treatments adjusted on a daily basis as needed. These include: See list Barriers to discharge for this patient who had been independent prior to this are for him to be modified independent to supervision for ADLs and mobility skills prior to discharge home with , so as to lessen the burden of the caregivers. Risks for this patient include: 1. Fall 2. Fracture 3. DVT 4. Pulmonary embolism 5. Wound infection 6. Skin breakdown 7. Contractures 8. Poorly controlled pain 9. Urinary retention 10. UTI 11. Respiratory infection 12. Aspiration Estimated Length of Stay: 7 days Prognosis: Rehab prognosis appears good for goal of discharge home with modified independent to supervision for ADLs and mobility skills. EVELINE ELDER DO Jan 16, 2019 15:27
--- NOTE | 2019-01-16 15:56 | Occupational Therapy Eval ---
OT Evaluation-General/PLF Medical Diagnosis Admission Date Jan 16, 2019 at 12:15 Medical Diagnosis: right TKA Onset Date: Jan 14, 2019 Therapy Diagnosis Therapy Diagnosis: impaired self care skills Height/Weight Height (Feet): 5 Height (Inches): 8.50 Weight (Pounds): 216 Weight (Ounces): 0.0 Precautions Precautions/Isolations: Fall Prevention Referral Physician: Eveline Márquez DO Medical History Pertinent Medical History: CAD, CVA, DM, Dementia, HTN Additional Medical History pacemaker, right total shoulder Current History s/p elective right TKA Social History Home: Single Level Current Living Status: Spouse Entry Into Home: Stairs With Railing Steps Into Home: 4 ADL-Prior Level of Function Therapy Code Descriptions/Definitions Functional Palmer Measure: 0=Not Assessed/NA 4=Minimal Assistance 1=Total Assistance 5=Supervision or Setup 2=Maximal Assistance 6=Modified [place] 3=Moderate Assistance 7=Complete [place] Therapy Quality Codes: 6 Independent with activity with or without an assistive device 5 Patient requires set up or clean up by helper. Patient completes activity by themselves 4 Supervision or touching assist (CGA). Royal provide cues , steadying assist 3 The helper provides less than half the effort to complete the activity 2 The helper provides more than half the effort to complete the activity 1 Dependent. The helper does all the effort to complete an activity 7 Patient refused to complete or attempt activity 9 The patient did not perform the activity before the current illness or injury 88 Not attempted due to Medical conditions or safety concerns Functional Abilities and Goals: Independent: Patient completed the activities by him/herself, with or without an assistive device, with no assistance from a helper. Needed Some Help: Patient needed partial assistance from another person to complete activities. Dependent: A helper completed the activities for the patient. Unknown: Not Applicable: ADL PLOF Comments Pt reports completing self care and mobility without assist. DME/Equipment: Grab Bars, Shower Drive Self: Yes OT Current Status Subjective Pt sitting in w/c, agrees to therapy. Pt reports pain in right knee, but does not rate. Mental Status/Objective Patient Orientation: Person Attachments: Oxygen (2L) Current Glasses/Contacts: Yes Hearing Aids: No Dentures/Partials: No Hand Dominance: Right Upper Extremity ROM mildly decreased shoulder ROM Upper Extremity Coordination Fair ADL-Treatment ADL-Current Pt requests shower today. Transfer w/c to shower bench with mod assist using grab bars. (max assist to transfer back to w/c after shower secondary to fatigue.) Doff shorts with min assist, weight shifting side to side to pull down over hips. Assist to doff socks. Seated bathing completed using hand held shower. Pt bathed upper body with SBA. Pt able to wash bilateral upper legs and jean area. Required assist for lower legs/feet and buttocks. Pt donned hospital gown, did not have a shirt available. Assist to thread bilateral LE into underwear and shorts. Stood with max assist, required assist to pull pants up over hips. Total assist to don ALEM hose and socks. Grooming tasks completed seated at sink. Pt brushed teeth and combed hair with SBA. Pt used urinal while seated with SBA. Assist to empty. Pt requests to return to bed. Sit to stand with mod assist, but has difficulty taking steps. Multiple cues for walker use. Pt attempts to sit before it is safe to do, so requires multiple cues for safety and sequencing. Sit to supine with assist for right LE. Pt resting in bed with needs met after session. Eating (FIM): 5 (by report) Eating (QC): 5 Grooming (FIM): 5 Oral Hygiene (QC): 4 Bathing (FIM): 3 Shower/Bathe Self (QC): 3 Lower Body Dressing (FIM): 1 Lower Body Dressing (QC): 1 On/Off Footwear (QC): 1 Toileting (FIM): 5 (urinal only) Toileting Hygiene (QC): 4 Toilet/Commode Transfer (FIM): 2 Shower Transfer (FIM): 2 Education OT Patient Education: Rehab process Teaching Recipient: Patient Teaching Methods: Discussion Response to Teaching: Reinforcement Needed OT Short Term Goals Short Term Goals Time Frame: Jan 23, 2019 Bathing(FIM): 4 Upper Body Dressing(FIM): 5 Lower Body Dressing(FIM): 3 Toileting(FIM): 3 Toilet/Commode Transfer(FIM): 4 Shower Transfer(FIM): 4 Additional Short Term Goals: 1-Demonstrate ADL Tasks, 2-Verbalize Understanding, 3-ImproveStrength/Nilda 1=Demonstrate adherence to instructed precautions during ADL tasks. 2=Patient will verbalize/demonstrate understanding of assistive devices/modifications for ADL. 3=Patient will improve strength/tolerance for activity to enable patient to perform ADL's. OT Therapy Director Goals Therapy Director Goals Time Frame: Feb 06, 2019 Eating (FIM): 6 Eating (QC): 6 Groomin Oral Hygiene (QC): 6 Bathing(FIM): 5 Shower/Bathe Self (QC): 4 Upper Body Dressing(FIM): 5 Upper Body Dressing (QC): 5 Lower Body Dressing(FIM): 5 Lower Body Dressing (QC): 5 On/Off Footwear (QC): 5 Toileting(FIM): 6 Toileting Hygiene (QC): 6 Toilet/Commode Transfer(FIM): 6 Toilet/Commode Transfer (QC): 6 Shower Transfer(FIM): 5 Additional Goals: 1-Demonstrate ADL Tasks, 2-Verbalize Understanding, 3- ImproveStrength/Nilda 1=Demonstrate adherence to instructed precautions during ADL tasks. 2=Patient will verbalize/demonstrate understanding of assistive d evices/modifications for ADL. 3=Patient will improve strength/tolerance for activity to enable patient to perform ADL's. OT Education/Plan Problem List/Assessment Assessment: Decreased Activ Tolerance, Decreased UE Strength, Dependent Transfers, Impaired I ADL's, Impaired Self-Care Skills Pt s/p right TKA with decreased mobility, strength, activity tolerance, and ADL functioning. Pt to benefit from skilled OT intervention for ADL training, transfers, strengthening, and home safety education to increase level of independence and allow safe discharge plan. Discharge Recommendations Plan/Recommendations: Continue POC Treatment Plan/Plan of Care Treatment,Training & Education: Yes Patient would benefit from OT for education, treatment and training to promote independence in ADL's, mobility, safety and/or upper extremity function for ADL's. Plan of Care: ADL Retraining, Functional Mobility, Group Exercise/Act as Ind, UE Funct Exercise/Act Treatment Duration: Feb 06, 2019 Frequency: At least 5 of 7 days/Wk (IRF) Estimated Hrs Per Day: 1.5 hours per day Rehab Potential: Fair Time/GCodes Start Time: 14:30 Stop Time: 15:45 Total Time Billed (hr/min): 75 Billed Treatment Time 1 visit, EVM(15minutes), ADLx4(60minutes) JOSE ESCALANTE OT Jan 16, 2019 15:55
[2019-01-16 16:42] VITALS: BP 135/60
[2019-01-16] MEDS: ACETAMINOPHEN 325 MG TABLET PO PRN (16:48)
[2019-01-16 17:07] VITALS: BP 135/60
[2019-01-16] MEDS ORDERED: ONDANSETRON 4 MG (ZOFRAN) ORAL DISSOLVE TAB PO PRN (18:00)
--- NOTE | 2019-01-16 19:18 | NUR ---
bedside report received from CICI LAZO, assume care of pt
[2019-01-16] MEDS: ENOXAPARIN 30 MG/0.3 ML (LOVENOX) SYR SC SCH (20:19)
[2019-01-16] MEDS ORDERED: SENNA W/DOCUSATE (SENOKOT S) TABLET PO SCH (21:00)
[2019-01-16] MEDS: AMIODARONE 200 MG (CORDARONE) TAB PO SCH (21:27)
[2019-01-16] MEDS: SENNA W/DOCUSATE (SENOKOT S) TABLET PO SCH (21:28)
[2019-01-16] MEDS: ENALAPRIL 5 MG (VASOTEC) TAB PO SCH (21:28)
--- NOTE | 2019-01-16 21:30 | NUR ---
assessments & interventions completed, see assessments & interventions, rated pain level 3/10 on numeric scale, refused pain med
[2019-01-17] MEDS: oxyCODONE/APAP 5/325MG (PERCOCET 5) TABLET PO PRN (00:35)
--- NOTE | 2019-01-17 00:35 | NUR ---
upon repositioning pt states pain level 10/10 on numeric scale, Percocet 1 tab po given with saltine cracker
--- NOTE | 2019-01-17 01:10 | NUR ---
resting quietly in bed, pain level 0/10 on flacc scale
[2019-01-17 06:02] VITALS: BP 150/87
[2019-01-17] MEDS: MULTIVIT W/MINERALS TAB (THERAGRAN M) PO SCH (07:08)
[2019-01-17] MEDS: ENOXAPARIN 30 MG/0.3 ML (LOVENOX) SYR SC SCH ×2 (07:09→18:34)
--- NOTE | 2019-01-17 07:20 | NUR ---
bedside report given to LUANNE LAZO
--- NOTE | 2019-01-17 09:12 | Physical Therapy Daily Note ---
PT Daily Note-Current Subjective States that he feels better today. Pain Numeric Pain Scale: 5-Moderate Pain Location: Right Location Body Site: Knee Transfers Therapy Code Descriptions/Definitions Functional [place] Measure: 0=Not Assessed/NA 4=Minimal Assistance 1=Total Assistance 5=Supervision or Setup 2=Maximal Assistance 6=Modified [place] 3=Moderate Assistance 7=Complete [place] Therapy Quality Codes: 6 Independent with activity with or without an assistive device 5 Patient requires set up or clean up by helper. Patient completes activity by themselves 4 Supervision or touching assist (CGA). Reedy provide cues , steadying assist 3 The helper provides less than half the effort to complete the activity 2 The helper provides more than half the effort to complete the activity 1 Dependent. The helper does all the effort to complete an activity 7 Patient refused to complete or attempt activity 9 The patient did not perform the activity before the current illness or injury 88 Not attempted due to Medical conditions or safety concerns Weight Bearing Right Lower Extremity: Right Weight Bearing/Tolerated Gait Training Gait (FIM): 5 Distance: 100' Gait Level of Assist: 5 Gait Persons Needed: 1 Gait Assistive Device: FWW Exercises Supine Ex: Quad Set, Heel Slides Seated Therapy Exercises: Long arc quads NuStep Minutes: 5 NuStep Workload: 1 Assessment Current Status: Excellent Progress Patient fatigued quickly with ambulation. PT Short Term Goals Short Term Goals Time Frame: Jan 23, 2019 Gait (FIM): 1 Gait Distance Comment: 20' Gait Level of Assist: 4 Gait Assistive Device: FWW PT Longterm Goals Moisture Meter Reader Goals PT Longterm Goals Time Frame: Feb 06, 2019 Transfers (B,C,W/C) (FIM): 5 Sit to Lying (QC): 4 Lying-Sitting on Side/Bed(QC): 4 Sit to Stand (QC): 4 Rollin Roll Left to Right (QC): 4 Chair/Chn-nm-Dwchq Xfer(QC): 4 Car Transfer (QC): 4 Gait (FIM): 2 Distance: 50' Walk 10 feet (QC): 4 Walk 10ft-Uneven Surface(QC): 4 Walk 50ft with 2 Turns (QC): 4 Gait Level of Assist: 5 Gait Assistive Device: FWW Stairs (FIM): 2 # of Steps: 4 1 Step (curb) (QC): 3 4 Steps (QC): 3 PT Plan Treatment/Plan Treatment Plan: Continue Plan of Care Treatment Plan: Bed Mobility, Concurrent Therapy, Education, Functional Activity Nilda, Functional Strength, Group Therapy, Gait, Safety, Therapeutic Exercise, Transfers Treatment Duration: Feb 06, 2019 Frequency: At least 5 of 7 days/Wk (IRF) Estimated Hrs Per Day: 1.5 hours per day Patient and/or Family Agrees t: Yes Time/GCodes Time In: 08 Time Out: 0855 Total Billed Treatment Time: 30 Total Billed Treatment 1, GT x 10', EX x 20' BYRON BLANCA PT Jan 17, 2019 09:12
[2019-01-17] MEDS: ASPIRIN E.C. 81 MG (ECOTRIN) TAB PO SCH (10:15)
[2019-01-17] MEDS: AMIODARONE 200 MG (CORDARONE) TAB PO SCH ×2 (10:15→21:09)
[2019-01-17] MEDS: ENALAPRIL 5 MG (VASOTEC) TAB PO SCH ×2 (10:15→21:09)
[2019-01-17] MEDS: SENNA W/DOCUSATE (SENOKOT S) TABLET PO SCH ×2 (10:16→21:05)
[2019-01-17] MEDS: ACETAMINOPHEN 325 MG TABLET PO PRN (10:25)
[2019-01-17] MEDS ORDERED: BISACODYL 10 MG SUPP (DULCOLAX) PR ONE (11:30)
--- NOTE | 2019-01-17 11:30 | NUR ---
DR. ELDER HERE TO ROUND ON PATIENT. THIS RN NOTIFIED DR. ELDER THAT PATIENT SPIKED A FEVER YESTERDAY EVENING ON 101.4 AND THEN AGAIN THIS AM OF 100.1. PT'S STATES TO DR. ELDER THAT HIS MENTATION SEEMS OFF. ON THIS RN'S ASSESSMENT OF PATIENT, PT STARING BLANKLY AND MOUTH MOVING IF TALKING BUT NO WORDS ARE COMING OUT. HOWEVER WHEN THIS RN ADDRESSES PATIENT, PATIENT SEEMS TO SNAP OF OF DAZE. PATIENT IS A/O AND ABLE TO HOLD CONVERSATION. DR. ELDER STATES TO GET STAT CBC, CMP, AND UA. WILL CARRY OUT ORDERS AND CONTINUE TO MONITOR.
[2019-01-17 11:50] LABS: BASOPHILS % (AUTO) 0 % (0-10); EOSINOPHILS % (AUTO) 0 % (0-10); HEMATOCRIT 37 % (40-54); HEMOGLOBIN 11.4 G/DL (13.3-17.7); LYMPHOCYTES % (AUTO) 6 % (12-44); MEAN CORPUSCULAR HEMOGLOBIN 27 PG (25-34); MEAN CORPUSCULAR HGB CONC 31 G/DL (32-36); MEAN CORPUSCULAR VOLUME 86 FL (80-99); MEAN PLATELET VOLUME 11.2 FL (7.4-10.4); MONOCYTES # (AUTO) 1.1 X 10^3 (0.0-1.0); MONOCYTES % (AUTO) 6 % (0-12); NEUTROPHILS # (AUTO) 16.4 X 10^3 (1.8-7.8); NEUTROPHILS % (AUTO) 88 % (42-75); PLATELET COUNT 161 10^3/uL (130-400); RED CELL DISTRIBUTION WIDTH 17.2 % (10.0-14.5); WHITE BLOOD COUNT 18.6 10^3/uL (4.3-11.0)
[2019-01-17 12:11] LABS: ALANINE AMINOTRANSFERASE 20 U/L (0-55); ALBUMIN 3.4 GM/DL (3.2-4.5); ALKALINE PHOSPHATASE 83 U/L (40-136); BILIRUBIN,TOTAL 0.9 MG/DL (0.1-1.0); BUN/CREATININE RATIO 16; CALCIUM 8.9 MG/DL (8.5-10.1); CARBON DIOXIDE 22 MMOL/L (21-32); CHLORIDE 106 MMOL/L (98-107); CREATININE SERUM 0.92 MG/DL (0.60-1.30); GFR ESTIMATED > 60; GLUCOSE 187 MG/DL (70-105); POTASSIUM 3.7 MMOL/L (3.6-5.0); SODIUM 139 MMOL/L (135-145); TOTAL PROTEIN 6.8 GM/DL (6.4-8.2)
--- NOTE | 2019-01-17 12:19 | PM&R Progress Note ---
Subjective HPI/CC On Admission Date Seen by Provider: Jan 17, 2019 Time Seen by Provider: 11:30 Chief complaint: Debility following right total knee replacement History of present illness: This is a 73-year-old white male clinic patient of [facility] and Dr. Fairbanks cardiology who maintains pacemaker who presents to inpatient rehabilitation following severe debility after her right total knee replacement. He had an uncomplicated surgery and is currently in need of aggressive rehabilitation in order return home with his to lessen the burden on his caregiver and improved success when discharged home with improved ambulation fall risk prevention. He had an uneventful hospital course following the surgery and is currently doing well although details are minimal considering his history of dementia but he is able to participate in therapy and obtain benefit from the aggressive inpatient rehabilitation protocol. At this current time patient denies any bowel movement since he arrived at the hospital for his surgery but he is urinating well with good flow and no retention since surgery. Subjective/Events-last exam Patient doing okay today Slight confusion noted Elevated white count 18,000 at bedside after I rounded for the second time due to continued fever of 101 which is more than I would expect just recently postoperative state even though he has been using incentive spirometer he has had urinary tract infections so we will check UA in addition to check chest x-ray although the lungs are clear today and check lactic acid for sepsis but it appears that the incision site was red and inflamed and of food it was notified I empirically placed him on Rocephin and he agreed with that antibiotic choice and will gently give IV fluids keep fever down and assess the fever and any other source in the meantime. Denies any significant pain We will work on bowels more aggressively today and giving Dulcolax suppository and soapsuds enema if needed Conferred with RN Reviewed therapy notes Check meds and labs Review of Systems General: Fatigue Gastrointestinal: Constipation Musculoskeletal: leg pain Neurological: Confusion Focused Exam Lactate Level 01/17/19 13:05: Lactic Acid Level 1.03 Objective Exam Vital Signs Vital Signs Date Time Temp Pulse Resp B/P (MAP) Pulse Ox O2 Delivery O2 Flow Rate FiO2 01/17/19 16:01 Nasal Cannula 2.00 01/17/19 15:55 36.6 77 16 156/79 100 Capillary Refill : General Appearance: No Apparent Distress, WD/WN, Chronically ill, Obese, Other (flushed) HEENT: PERRL/EOMI, Normal ENT Inspection, Pharynx Normal, Moist Mucous Membranes Neck: Full Range of Motion, Normal Inspection, Non Tender, Supple Respiratory: Chest Non Tender, Lungs Clear, Normal Breath Sounds, No Accessory Muscle Use, No Respiratory Distress Cardiovascular: Regular Rate, Rhythm, No Edema, No Gallop, No JVD, No Murmur Gastrointestinal: Normal Bowel Sounds, No Organomegaly, No Pulsatile Mass, Non Tender, Soft Back: Normal Inspection, No CVA Tenderness, No Vertebral Tenderness Extremity: Normal Capillary Refill, Normal Inspection, Normal Range of Motion ( except for right knee postop), Non Tender, No Calf Tenderness, No Pedal Edema Neurologic/Psychiatric: Alert, Oriented x3, No Motor/Sensory Deficits, Normal Mood/Affect, Disoriented (subtle) Skin: Normal Color, Warm/Dry, Other (redness around surgical site) Lymphatic: No Adenopathy Results/Procedures Lab Laboratory Tests 01/17/19 11:42 Patient resulted labs reviewed. FIM Transfers Therapy Code Descriptions/Definitions Functional [place] Measure: 0=Not Assessed/NA 4=Minimal Assistance 1=Total Assistance 5=Supervision or Setup 2=Maximal Assistance 6=Modified [place] 3=Moderate Assistance 7=Complete [place] Therapy Quality Codes: 6 Independent with activity with or without an assistive device 5 Patient requires set up or clean up by helper. Patient completes activity by themselves 4 Supervision or touching assist (CGA). [place] provide cues , steadying assist 3 The helper provides less than half the effort to complete the activity 2 The helper provides more than half the effort to complete the activity 1 Dependent. The helper does all the effort to complete an activity 7 Patient refused to complete or attempt activity 9 The patient did not perform the activity before the current illness or inju ry 88 Not attempted due to Medical conditions or safety concerns Transfers (B, C, W/C) (FIM): 3 Scootin Rollin Roll Left to Right (QC): 2 Supine to/from Sit: 3 Sit to/from Stand: 4 Sit to Lying (QC): 2 Sit to Stand (QC): 3 Chair/Szl-co-Ngeeb Xfer(QC): 3 Bed to/from Chair: 3 Car Transfer (QC): 3 Gait Training Does the Patient Walk?: Yes Gait (FIM): 5 Distance: 100' Walk 10 feet (QC): 4 Gait Level of Assist: 5 Gait Persons Needed: 1 Gait Assistive Device: FWW Wheelchair Training Does the Pt Use a Wheelchair?: Yes Wheelchair (FIM): 1 Stair Training Stairs (FIM): 88 Mental Status/Objective Comprehension: 7 Expression: 7 Social Interaction: 7 Problem Solvin Memory: 6 ADL-Treatment Feedin (by report) Eating (QC): 5 Groomin Oral Hygiene (QC): 4 Bathin Shower/Bathe Self (QC): 3 Lower Extremity Dressin Lower Body Dressing (QC): 1 On/Off Footwear (QC): 1 Toiletin (urinal only) Toileting Hygiene (QC): 4 Toilet/Commode Transfer: 2 Shower: 2 Assessment/Plan Assessment and Plan Assess & Plan/Chief Complaint Plan: Inpatient rehabilitation protocol Intensify bowel regimen until constipation resolved Home meds DVT prophylaxis Monitor labs Monitor blood pressure Monitor postop fever and place on Rocephin empirically and check lactic acid and check UA and CXR in meantime (1) Status post right knee replacement Status: Acute (2) Dementia Status: Chronic Qualifiers: Dementia type: unspecified type Dementia behavioral disturbance: without behavioral disturbance Qualified Codes: F03.90 - Unspecified dementia without behavioral disturbance (3) Cellulitis, wound, post-operative Status: Acute (4) CAD (coronary artery disease), [place] coronary artery Status: Chronic Qualifiers: [place] vs. transplanted heart: [place] heart Associated angina: without an sabino Qualified Codes: I25.10 - Atherosclerotic heart disease of [place] artery without angina pectoris (5) Concentric left ventricular hypertrophy Status: Chronic (6) Grade II diastolic dysfunction Status: Chronic (7) 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 (8) Chronic GERD Status: Chronic (9) Obesity (BMI 30-39.9) Status: Chronic (10) DVT prophylaxis Status: Acute (11) Hearing difficulty Status: Chronic (12) Osteoarthritis of right knee Status: Chronic (13) History of stroke Status: Chronic (14) Dyslipidemia Status: Chronic (15) Major depression, recurrent Status: Chronic (16) Pacemaker Status: Chronic (17) Chronic fatigue Status: Chronic (18) Sleep apnea Status: Chronic (19) Type II diabetes mellitus with complication Status: Chronic (20) Hypertension Status: Chronic (21) Hypoxia Status: Chronic (22) Arthritis Status: Chronic (23) Anxiety Status: Chronic (24) Insomnia Status: Chronic Qualifiers: Insomnia type: primary Qualified Codes: F51.01 - 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 (25) Unable to ambulate Status: Acute (26) Fever Status: Acute Qualifiers: Fever type: unspecified Qualified Codes: R50.9 - Fever, unspecified (27) Frequent falls Status: Acute DIYA ELDER DO Jan 17, 2019 12:19
--- NOTE | 2019-01-17 12:20 | Individualized Plan of Care ---
Individualized Plan of Care Rehab Nursing IPOC Order Admission Date Jan 16, 2019 at 12:15 Current Orders Orders Patient Visit (01/16/19 ) Speech Sound Lang Comp (01/16/19 ) Ambulate ,, (01/16/19 14:45) Diet As Tolerated (Order) (01/16/19 14:45) Dressing Order (Intervention) DAILY (01/16/19 14:45) Incentive Spirometry (Nursing) Q2H (01/16/19 14:45) Notify Anesthesia (01/16/19 14:45) Oxygen-Administer 07, (01/16/19 14:45) Sequential Compression Device 10,14,18,22,02,06 (01/16/19 14:45) Tan Hose 09, (01/16/19 14:45) Vital Signs: Anesthesia Post P (01/16/19 14:45) Vital Signs: Every 4 Hours (Or (01/16/19 14:45) Vital Signs: Hourly (Order) (01/16/19 14:45) General/Regular (01/16/19 Dinner) Amiodarone Tablet (Cordarone Tablet) (01/16/19 21:00) Aspirin Enteric Coated Tablet (Ecotrin T (01/17/19 09:00) Enalapril Tablet (Vasotec Tablet) (01/16/19 21:00) Enoxaparin Injection (Lovenox Injection) (01/16/19 19:30) Therapeutic Multivitamin Tab (Vitamins, (01/17/19 07:00) Ondansetron Injection (Zofran Injectio (01/16/19 14:45) Senna S Tablet (Senokot S Tablet) (01/16/19 21:00) Sodium Chloride Flush (Catheter Flush Sy (01/16/19 14:45) Acetaminophen Tablet/Caplet (Tylenol T (01/16/19 14:45) Clonazepam Tablet (Klonopin Tablet) (01/16/19 14:45) Diphenhydramine Injection (Benadryl Inje (01/16/19 14:45) Morphine Injection (Morphine Injection (01/16/19 14:45) Oxycodone/Apap 5/325mg Tablet (Percocet (01/16/19 14:45) Consult Physician (01/16/19 14:45) Consult Wound Care Physician (01/16/19 14:45) Admission Order(Inpt,Obs,Sdc) (01/16/19 14:45) Vital Signs: Per Unit Policy ( 08,16,00 (01/16/19 14:45) Screen Printing Cloth Spreader-Inpt Rehab Con (01/16/19 14:45) Rehab Nursing Orders-Ipoc (01/16/19 14:45) Physical Therapy Rehab Orders (01/16/19 14:45) Occupational Therapy Rehab Ord (01/16/19 14:45) Speech Therapy Rehab Orders (01/16/19 14:45) Intake & Output 06,14,22 (01/16/19 14:45) Precautions (Aru) (01/16/19 14:45) Weekly Weight (Lbs) WEEK (01/16/19 14:45) Rehab-Intensity Of Therapy (01/16/19 14:45) Initiate Admission Nursing Pro .admission (01/16/19 14:45) Initiate Admission Nursing Pro .admission (01/16/19 14:45) Alprazolam Tablet (Xanax Tablet) (01/16/19 14:45) Calcium Carbonate Chew Tablet (Antacid C (01/16/19 14:45) Diphenhydramine Tablet (Benadryl Tablet) (01/16/19 14:45) Docusate Sodium Capsule (Colace Capsule) (01/16/19 14:45) Melatonin Tablet (Melatonin Tablet) (01/16/19 14:45) Loperamide Tablet (Imodium Tablet) (01/16/19 14:45) Senna S Tablet (Senokot S Tablet) (01/16/19 21:00) Patient Visit (01/16/19 ) Therapeutic, Group (01/16/19 ) Patient Visit (01/16/19 ) Ondansetron Oral Dissolve Tab (Zofran (01/16/19 18:00) Cbc With Automated Diff (01/17/19 11:26) Comprehensive Metabolic Panel (01/17/19 11:26) Bisacodyl Suppository (Dulcolax Supposit (01/17/19 11:30) Soap Suds Enema Until Clear (01/17/19 11:27) Patient Visit (01/17/19 ) Exercise Therap, Ea 15 Min (01/17/19 ) Gait Training, Ea 15 Min (01/17/19 ) Manual Differential (01/17/19 11:42) Chest Pa/Lat (2 View) (01/17/19 12:35) Urinalysis (01/17/19 13:53) Cbc With Automated Diff (01/18/19 06:00) Comprehensive Metabolic Panel (01/18/19 06:00) Lactic Acid Analyzer (01/17/19 12:41) Ceftriaxone For Iv Use (Rocephin For I (01/17/19 12:45) Ns Iv 1000 Ml (Sodium Chloride 0.9%) (01/17/19 12:45) Nystatin Cream (Mycostatin Cream) (01/17/19 14:15) Miconazole 2% Powder (Desenex Af 2% Powd (01/17/19 14:15) Urine Culture (01/17/19 13:53) Rehab Nursing Orders: Ongoing Assess. of Cognitive Status, Ongoing Assess. of Function Status, Bladder Management, Bladder Scan, Bladder Training, Bowel Management, Bowel Training, Disease Management & Educaiton, DVT Prophylaxis, Fall Prevention, Fluid/Electrolyte/Nutrition Mgmt, Infection Prevention, Medication Management & Education, Management of Risks & Complications, Management of Skin Intergrity, Nutrition Management, Pain Management, Patient/Family Support, Safety Management Intensity of Therapy to be met Patient to be seen: Min.3h per day/5 of 7d PT IPOC Problem List: Activity Tolerance, Functional Strength, Safety, Balance, Gait, Transfer, Bed Mobility, ROM Treatment Plan: Continue Plan of Care Bed Mobility, Concurrent Therapy, Education, Functional Activity Nilda, Functional Strength, Group Therapy, Gait, Safety, Therapeutic Exercise, Transfers Treatment Duration: Feb 06, 2019 Frequency: At least 5 of 7 days/Wk (IRF) Estimated Hrs Per Day: 1.5 hours per day OT IPOC Problems: Decreased Activ Tolerance, Decreased UE Strength, Dependent Transfers, Impaired I ADL's, Impaired Self-Care Skills OT Treatment, Training and Edu: Yes OT Problems Pt s/p right TKA with decreased mobility, strength, activity tolerance, and ADL functioning. Pt to benefit from skilled OT intervention for ADL training, petersen sfers, strengthening, and home safety education to increase level of independence and allow safe discharge plan. Plan of Care: ADL Retraining, Functional Mobility, Group Exercise/Act as Ind, UE Funct Exercise/Act Treatment Duration: Feb 06, 2019 Frequency: At least 5 of 7 days/Wk (IRF) Estimated Hrs Per Day: 1.[address] IPOC Speech Therapy Treatment Plan: Discontinue ST Treatment Duration: Jan 16, 2019 Frequency: 1 time per week Estimated Hrs Per Day: .25 hour per day Screen Printing Cloth Spreader/Case Mgmt Screen Printing Cloth Spreader/Case Managemen: Discharge Planning Dietitian/Bridal Sales Consultant Dietitian/Bridal Sales Consultant to monitor nutritional status and make changes and/or recommendations as needed and work with speech pathology on dietary upgrades as the occur. Physician IPOC Medical Issues being managed closely and that require the 24 hour availability of a physician: Patient with dementia and now fever with postoperative wound cellulitis in addition to history of pacemaker and sleep apnea noncompliant with CPAP will need close monitoring due to high risk of sepsis and decompensation Medical Issues: Bowel/Bladder Function, DVT Prophylaxis, Falls Precautions, Fluid/Electrolyte/Nutrition Balance, Infection Protection, Pain Management, Wound Care Brief Synthesis of Preadmission Screen, Post-Admission Evaluation, and Therapy Evaluations: Physical therapy will focus on ambulation after recent joint replacement and pain control Occupational Therapy will focus on regaining independent ADLs due to recent surgery Speech therapy will work on cognition Medical Prognosis: Good Anticipated Length of Stay: 7 days DIYA ELDER DO Jan 17, 2019 12:19
[2019-01-17 13:04] LABS: BAND NEUTROPHILS 0 %; BASOPHILS % (MANUAL) 0 %; EOSINOPHILS % (MANUAL) 0 %; LYMPHOCYTES % (MANUAL) 4 %; MONOCYTES % (MANUAL) 3 %; NEUTROPHILS % (MANUAL) 93 %
[2019-01-17 13:05] LABS: ANISOCYTOSIS SLIGHT
[2019-01-17] MEDS: NS IV 1000 ML 1,000 ML IV SCH (13:22)
--- NOTE | 2019-01-17 13:47 | NUR ---
NOTIFIED DR. DIETZ OF REDNESS ON RIGHT LOWER GIFFORD THAT IS ON OPERATIVE LEG. THIS rn ALSO NOTIFIED DR. DIETZ THAT DR. ELDER HAD STARTED PT ON ROCEPHIN R/T SUSPECTED UTI. DR. DIETZ STATES THAT HE WILL ROUND ON PATIENT TOMORROW AND THAT HE IS OK WITH STARTING THE ROCEPHIN. NO NEW ORDERS RECEIVED AT THIS TIME.
[2019-01-17] MEDS: cefTRIAXone FOR IV USE 1,000 MG in WATER (STERILE) FOR INJECTION 10 ML IV SCH (13:56)
[2019-01-17 15:00] LABS: BILIRUBIN,URINE NEGATIVE (NEGATIVE); COLOR,URINE YELLOW; GLUCOSE, URINE (UA) 3+ (NEGATIVE); KETONES,URINE 1+ (NEGATIVE); LEUKOCYTE ESTERASE ,URINE NEGATIVE (NEGATIVE); NITRITE,URINE NEGATIVE (NEGATIVE); PH,URINE 6 (5-9); PROTEIN,URINE 3+ (NEGATIVE); UROBILINOGEN,URINE 1 MG/DL (NORMAL)
[2019-01-17] MEDS: NYSTATIN CREAM (MYCOSTATIN) 30 GM TUBE TP SCH ×2 (15:08→21:09)
[2019-01-17] MEDS: MICONAZOLE 2% POWDER (DESENEX AF) 90 GM TOP SCH ×2 (15:08→21:09)
[2019-01-17 15:15] LABS: AMORPHOUS SEDIMENT,UR FEW AMOR URATES /LPF; BACTERIA,URINE MODERATE /HPF; CLARITY,URINE SL CLOUDY; HYALINE CASTS, URINE 0-2 /LPF; RBC,URINE 0-2 /HPF; WBC,URINE 0-2 /HPF
[2019-01-17 15:16] LABS: URINE OTHER FEW SPERM /HPF
[2019-01-17 15:55] VITALS: BP 156/79
--- NOTE | 2019-01-17 19:20 | NUR ---
bedside report received from LUANNE LAZO, assume care of pt
--- NOTE | 2019-01-17 20:08 | Diagnostic Imaging Report ---
INDICATION: Fever. COMPARISON: 01/08/2019. EXAMINATION: Frontal and lateral views of the chest were obtained. FINDINGS: Stable cardiac enlargement. The lungs are clear. There is no pneumothorax, effusion or infiltrate. The pacemaker is stable. Osseous structures are age-appropriate. IMPRESSION: No acute cardiopulmonary findings. Stable chest. Dictated by: Dictated on workstation # [id number]
[2019-01-17 21:05] VITALS: BP 150/75
--- NOTE | 2019-01-17 21:09 | NUR ---
pt refused Senokot rates pain at 310
--- NOTE | 2019-01-17 21:11 | NUR ---
assessments & interventions completed, see assessments & interventions
[2019-01-18] MEDS: oxyCODONE/APAP 5/325MG (PERCOCET 5) TABLET PO PRN ×2 (02:22→16:24)
--- NOTE | 2019-01-18 02:22 | NUR ---
c/o pain level 3/10 on numeric scale, Percocet 1 tab po given
--- NOTE | 2019-01-18 02:30 | NUR ---
pt called this nurse & asked why he did not get PT today advised only partial day for PT personal, asked when he would know what was going to happen with him advised probably Saturday, they would get together with staff, family & him & would discuss his plan of care
--- NOTE | 2019-01-18 02:41 | NUR ---
called in again pt stating so you said my head is on the block saturday, advised no did not say that, advised him this group meeting is his chance to have input into plan of care, then pt said sounds like you are kicking me out of here advised absolutely not we would not dismiss him until he is ready this is a chance to learn what they can do for him to help get him stronger
--- NOTE | 2019-01-18 03:00 | NUR ---
rates pain level 2/10 on numeric scale
[2019-01-18] MEDS: NS IV 1000 ML 1,000 ML IV SCH (03:39)
[2019-01-18 05:11] LABS: BASOPHILS % (AUTO) 0 % (0-10); EOSINOPHILS % (AUTO) 0 % (0-10); HEMATOCRIT 34 % (40-54); HEMOGLOBIN 10.4 G/DL (13.3-17.7); LYMPHOCYTES # (AUTO) 1.2 X 10^3 (1.0-4.0); LYMPHOCYTES % (AUTO) 8 % (12-44); MEAN CORPUSCULAR HEMOGLOBIN 27 PG (25-34); MEAN CORPUSCULAR HGB CONC 31 G/DL (32-36); MEAN CORPUSCULAR VOLUME 86 FL (80-99); MONOCYTES % (AUTO) 7 % (0-12); NEUTROPHILS # (AUTO) 12.9 X 10^3 (1.8-7.8); NEUTROPHILS % (AUTO) 86 % (42-75); PLATELET COUNT 174 10^3/uL (130-400); RED CELL DISTRIBUTION WIDTH 16.7 % (10.0-14.5); WHITE BLOOD COUNT 15.1 10^3/uL (4.3-11.0)
[2019-01-18 05:38] VITALS: BP 153/85
[2019-01-18 06:05] LABS: ALANINE AMINOTRANSFERASE 17 U/L (0-55); ALKALINE PHOSPHATASE 72 U/L (40-136); BILIRUBIN,TOTAL 0.7 MG/DL (0.1-1.0); BUN/CREATININE RATIO 16; CALCIUM 8.5 MG/DL (8.5-10.1); CARBON DIOXIDE 23 MMOL/L (21-32); CHLORIDE 108 MMOL/L (98-107); CREATININE SERUM 0.85 MG/DL (0.60-1.30); GFR ESTIMATED > 60; GLUCOSE 167 MG/DL (70-105); POTASSIUM 4.2 MMOL/L (3.6-5.0); SODIUM 142 MMOL/L (135-145); TOTAL PROTEIN 6.2 GM/DL (6.4-8.2)
[2019-01-18] MEDS: MULTIVIT W/MINERALS TAB (THERAGRAN M) PO SCH (07:04)
[2019-01-18] MEDS: ENOXAPARIN 30 MG/0.3 ML (LOVENOX) SYR SC SCH ×2 (07:05→18:40)
--- NOTE | 2019-01-18 07:13 | NUR ---
bedside report given to LUANNE LAZO
[2019-01-18] MEDS: AMIODARONE 200 MG (CORDARONE) TAB PO SCH ×2 (08:30→21:15)
[2019-01-18] MEDS: ASPIRIN E.C. 81 MG (ECOTRIN) TAB PO SCH (08:30)
[2019-01-18] MEDS: MICONAZOLE 2% POWDER (DESENEX AF) 90 GM TOP SCH ×2 (08:30→21:15)
[2019-01-18] MEDS: ENALAPRIL 5 MG (VASOTEC) TAB PO SCH ×2 (08:30→21:15)
[2019-01-18] MEDS: NYSTATIN CREAM (MYCOSTATIN) 30 GM TUBE TP SCH ×2 (08:31→21:15)
[2019-01-18] MEDS: SENNA W/DOCUSATE (SENOKOT S) TABLET PO SCH ×2 (08:35→21:15)
[2019-01-18] MEDS: cefTRIAXone FOR IV USE 1,000 MG in WATER (STERILE) FOR INJECTION 10 ML IV SCH (13:16)
--- NOTE | 2019-01-18 13:44 | PM&R Progress Note ---
Subjective HPI/CC On Admission Date Seen by Provider: Jan 18, 2019 Time Seen by Provider: 13:00 Chief complaint: Debility following right total knee replacement History of present illness: This is a 73-year-old white male clinic patient of [facility] and Dr. Fairbanks cardiology who maintains pacemaker who presents to inpatient rehabilitation following severe debility after her right total knee replacement. He had an uncomplicated surgery and is currently in need of aggressive rehabilitation in order return home with his to lessen the burden on his caregiver and improved success when discharged home with improved ambulation fall risk prevention. He had an uneventful hospital course following the surgery and is currently doing well although details are minimal considering his history of dementia but he is able to participate in therapy and obtain benefit from the aggressive inpatient rehabilitation protocol. At this current time patient denies any bowel movement since he arrived at the hospital for his surgery but he is urinating well with good flow and no retention since surgery. Subjective/Events-last exam Patient doing much better today White count down from 18,000-15,000 T-max was 99 down from 101.2 Rocephin continues but will change to Ancef from orthopedic surgery recommendation because it does appear to be a postoperative wound cellulitis since urinalysis and chest x-ray were all normal and lactic acid was normal Less flushed today Bowel movement had a large evacuation after multiple meds We will Hep-Lock IV fluid and discontinue aggressive treatment for sepsis We will discontinue Rocephin Klonopin will be given scheduled as his gives him on a regular basis Check meds and labs Conferred with RN Reviewed therapy notes Review of Systems General: Night Sweats, Fatigue Musculoskeletal: leg pain Neurological: Confusion Focused Exam Lactate Level 01/17/19 13:05: Lactic Acid Level 1.03 Objective Exam Vital Signs Vital Signs Date Time Temp Pulse Resp B/P (MAP) Pulse Ox O2 Delivery O2 Flow Rate FiO2 01/18/19 16:18 36.2 80 16 177/84 92 Room Air 01/18/19 07:40 2.00 Capillary Refill : General Appearance: No Apparent Distress, WD/WN, Chronically ill, Obese, Other (flushed) HEENT: PERRL/EOMI, Normal ENT Inspection, Pharynx Normal, Moist Mucous Membranes Neck: Full Range of Motion, Normal Inspection, Non Tender, Supple Respiratory: Chest Non Tender, Lungs Clear, Normal Breath Sounds, No Accessory Muscle Use, No Respiratory Distress Cardiovascular: Regular Rate, Rhythm, No Edema, No Gallop, No JVD, No Murmur Gastrointestinal: Normal Bowel Sounds, No Organomegaly, No Pulsatile Mass, Non Tender, Soft Back: Normal Inspection, No CVA Tenderness, No Vertebral Tenderness Extremity: Normal Capillary Refill, Normal Inspection, Normal Range of Motion (except for right knee postop), Non Tender, No Calf Tenderness, No Pedal Edema Neurologic/Psychiatric: Alert, Oriented x3, No Motor/Sensory Deficits, Normal Mood/Affect, Disoriented (subtle) Skin: Normal Color, Warm/Dry, Other (redness around surgical site) Lymphatic: No Adenopathy Results/Procedures Lab Laboratory Tests 01/18/19 05:00 Patient resulted labs reviewed. FIM Transfers Therapy Code Descriptions/Definitions Functional [place] Measure: 0=Not Assessed/NA 4=Minimal Assistance 1=Total Assistance 5=Supervision or Setup 2=Maximal Assistance 6=Modified [place] 3=Moderate Assistance 7=Complete [place] Therapy Quality Codes: 6 Independent with activity with or without an assistive device 5 Patient requires set up or clean up by helper. Patient completes activity by themselves 4 Supervision or touching assist (CGA). [place] provide cues , steadying assist 3 The helper provides less than half the effort to complete the activity 2 The helper provides more than half the effort to complete the activity 1 Dependent. The helper does all the effort to complete an activity 7 Patient refused to complete or attempt activity 9 The patient did not perform the activity before the current illness or injury 88 Not attempted due to Medical conditions or safety concerns Transfers (B, C, W/C) (FIM): 3 Scootin Rollin Roll Left to Right (QC): 2 Supine to/from Sit: 3 Sit to/from Stand: 4 Sit to Lying (QC): 2 Sit to Stand (QC): 3 Chair/Qai-jv-Jktcz Xfer(QC): 3 Bed to/from Chair: 3 Car Transfer (QC): 3 Gait Training Does the Patient Walk?: Yes Gait (FIM): 5 Distance: 100' Walk 10 feet (QC): 4 Gait Level of Assist: 5 Gait Persons Needed: 1 Gait Assistive Device: FWW Wheelchair Training Does the Pt Use a Wheelchair?: Yes Wheelchair (FIM): 1 Stair Training Stairs (FIM): 88 Mental Status/Objective Comprehension: 7 Expression: 7 Social Interaction: 7 Problem Solvin Memory: 6 ADL-Treatment Feedin (by report) Eating (QC): 5 Groomin Oral Hygiene (QC): 4 Bathin Shower/Bathe Self (QC): 3 Lower Extremity Dressin Lower Body Dressing (QC): 1 On/Off Footwear (QC): 1 Toiletin (urinal only) Toileting Hygiene (QC): 4 Toilet/Commode Transfer: 2 Shower: 2 Assessment/Plan Assessment and Plan Assess & Plan/Chief Complaint Plan: Inpatient rehabilitation protocol Intensify bowel regimen until constipation resolved Home meds DVT prophylaxis Monitor labs Monitor blood pressure Monitor postop fever and change Rocephin to Ancef for suspicion of post op wound cellulitis since UA CXR normal (1) Status post right knee replacement Status: Acute (2) Dementia Status: Chronic Qualifiers: Dementia type: unspecified type Dementia behavioral disturbance: without behavioral disturbance Qualified Codes: F03.90 - Unspecified dementia without behavioral disturbance (3) Cellulitis, wound, post-operative Status: Acute (4) CAD (coronary artery disease), [place] coronary artery Status: Chronic Qualifiers: [place] vs. transplanted heart: [place] heart Associated angina: without angina Qualified Codes: I25.10 - Atherosclerotic heart disease of [place] coronary artery without angina pectoris (5) Concentric left ventricular hypertrophy Status: Chronic (6) Grade II diastolic dysfunction Status: Chronic (7) 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 (8) Chronic GERD Status: Chronic (9) Obesity (BMI 30-39.9) Status: Chronic (10) DVT prophylaxis Status: Acute (11) Hearing difficulty Status: Chronic (12) Osteoarthritis of right knee Status: Chronic (13) History of stroke Status: Chronic (14) Dyslipidemia Status: Chronic (15) Major depression, recurrent Status: Chronic (16) Pacemaker Status: Chronic (17) Chronic fatigue Status: Chronic (18) Sleep apnea Status: Chronic (19) Type II diabetes mellitus with complication Status: Chronic (20) Hypertension Status: Chronic (21) Hypoxia Status: Chronic (22) Arthritis Status: Chronic (23) Anxiety Status: Chronic (24) Insomnia Status: Chronic Qualifiers: Insomnia type: primary Qualified Codes: F51.01 - 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 (25) Unable to ambulate Status: Acute (26) Fever Status: Acute Qualifiers: Fever type: unspecified Qualified Codes: R50.9 - Fever, unspecified (27) Frequent falls Status: Acute DIYA ELDER DO Jan 18, 2019 13:44
--- NOTE | 2019-01-18 13:52 | Progress Note ---
Standard Progress Note Progress Notes/Assess & Plan Date Seen by a Provider: Jan 18, 2019 Time Seen by a Provider: 13:49 Progress/Assessment & Plan patient feeling better Vital Signs Date Time Temp Pulse Resp B/P (MAP) Pulse Ox O2 Delivery O2 Flow Rate FiO2 01/18/19 08:10 Room Air 01/18/19 07:40 Nasal Cannula 2.00 01/18/19 05:38 37.2 77 18 153/85 97 Nasal Cannula 2.00 01/17/19 21:11 Nasal Cannula 2.00 01/17/19 21:05 37.3 75 18 150/75 97 Nasal Cannula 2.00 01/17/19 16:01 Nasal Cannula 2.00 01/17/19 15:55 36.6 77 16 156/79 100 Nasal Cannula 2.00 I & O 01/18/19 07:00 Intake Total 2070 ml Output Total 675 ml Balance 1395 ml Laboratory Tests Test 01/17/19 13:53 01/18/19 05:00 Range/Units Urine Color YELLOW Urine Clarity SL CLOUDY Urine pH 6 5-9 Urine Specific [place] 1.020 1.016-1.022 Urine Protein 3+ H NEGATIVE Urine Glucose (UA) 3+ H NEGATIVE Urine Ketones 1+ H NEGATIVE Urine Nitrite NEGATIVE NEGATIVE Urine Bilirubin NEGATIVE NEGATIVE Urine Urobilinogen 1 NORMAL MG/DL Urine Leukocyte Esterase NEGATIVE NEGATIVE Urine RBC (Auto) 2+ H NEGATIVE Urine RBC 0-2 /HPF Urine WBC 0-2 /HPF Urine Squamous Epithelial Cells NONE /HPF Urine Crystals PRESENT H /LPF Urine Amorphous Sediment FEW FELIPA URATES H /LPF Urine Bacteria MODERATE H /HPF Urine Casts PRESENT /LPF Urine Hyaline Casts 0-2 H /LPF Urine Granular Casts 2-5 H /LPF Urine Mucus MODERATE H /LPF Urine Other FEW SPERM H /HPF Urine Culture Indicated YES White Blood Count 15.1 H 4.3-11.0 10^3/uL Red Blood Count 3.90 L 4.35-5.85 10^6/uL Hemoglobin 10.4 L 13.3-17.7 G/DL Hematocrit 34 L 40-54 % Mean Corpuscular Volume 86 80-99 FL Mean Corpuscular Hemoglobin 27 25-34 PG Mean Corpuscular Hemoglobin Concent 31 L 32-36 G/DL Red Cell Distribution Width 16.7 H 10.0-14.5 % Platelet Count 174 130-400 10^3/uL Mean Platelet Volume 11.0 H 7.4-10.4 FL Neutrophils (%) (Auto) 86 H 42-75 % Lymphocytes (%) (Auto) 8 L 12-44 % Monocytes (%) (Auto) 7 0-12 % Eosinophils (%) (Auto) 0 0-10 % Basophils (%) (Auto) 0 0-10 % Neutrophils # (Auto) 12.9 H 1.8-7.8 X 10^3 Lymphocytes # (Auto) 1.2 1.0-4.0 X 10^3 Monocytes # (Auto) 1.0 0.0-1.0 X 10^3 Eosinophils # (Auto) 0.0 0.0-0.3 10^3/uL Basophils # (Auto) 0.0 0.0-0.1 10^3/uL Sodium Level 142 135-145 MMOL/L Potassium Level 4.2 3.6-5.0 MMOL/L Chloride Level 108 H 98-107 MMOL/L Carbon Dioxide Level 23 21-32 MMOL/L Anion Gap 11 5-14 MMOL/L Blood Urea Nitrogen 14 7-18 MG/DL Creatinine 0.85 0.60-1.30 MG/DL Estimat Glomerular Filtration Rate > 60 BUN/Creatinine Ratio 16 Glucose Level 167 H 70-105 MG/DL Calcium Level 8.5 8.5-10.1 MG/DL Corrected Calcium 9.3 8.5-10.1 MG/DL Total Bilirubin 0.7 0.1-1.0 MG/DL Aspartate Amino Transf (AST/SGOT) 18 5-34 U/L Alanine Aminotransferase (ALT/SGPT) 17 0-55 U/L Alkaline Phosphatase 72 40-136 U/L Total Protein 6.2 L 6.4-8.2 GM/DL Albumin 3.0 L 3.2-4.5 GM/DL RLE--incision clean and dry. fracture blister distal to incision. lower leg erythematous. Neg Josefina's s/p RTKA with distal cellulitis. Not surprising, considering venous insufficiency history continue PT/OT change abx to Ancef. If no response within 48 hours, will switch to Bactrim/Doxycycline Focused Exam Lactate Level 01/17/19 13:05: Lactic Acid Level 1.03 MARCO DIETZ MD Jan 18, 2019 13:52
[2019-01-18] MEDS: ceFAZolin INJECTION 1,000 MG in WATER (STERILE) FOR INJECTION 10 ML IV SCH ×2 (15:14→22:20)
[2019-01-18 16:18] VITALS: BP 177/84
--- NOTE | 2019-01-18 19:08 | NUR ---
bedside report received from LUANNE LAZO, assume care of pt
[2019-01-18 21:12] VITALS: BP 174/84
[2019-01-18] MEDS: clonazePAM 1 MG (KlonoPIN) TAB PO SCH (21:15)
--- NOTE | 2019-01-18 21:15 | NUR ---
pt took 1 Senokot, temp 36.1
--- NOTE | 2019-01-18 21:17 | NUR ---
assessments & interventions completed, see assessments & interventions
[2019-01-19 05:35] LABS: BASOPHILS % (AUTO) 0 % (0-10); EOSINOPHILS % (AUTO) 0 % (0-10); HEMATOCRIT 36 % (40-54); HEMOGLOBIN 10.9 G/DL (13.3-17.7); LYMPHOCYTES # (AUTO) 1.2 X 10^3 (1.0-4.0); LYMPHOCYTES % (AUTO) 10 % (12-44); MEAN CORPUSCULAR HEMOGLOBIN 26 PG (25-34); MEAN CORPUSCULAR HGB CONC 31 G/DL (32-36); MEAN CORPUSCULAR VOLUME 86 FL (80-99); MEAN PLATELET VOLUME 10.6 FL (7.4-10.4); MONOCYTES # (AUTO) 0.9 X 10^3 (0.0-1.0); MONOCYTES % (AUTO) 7 % (0-12); NEUTROPHILS % (AUTO) 83 % (42-75); PLATELET COUNT 226 10^3/uL (130-400); RED CELL DISTRIBUTION WIDTH 17.3 % (10.0-14.5); WHITE BLOOD COUNT 12.1 10^3/uL (4.3-11.0)
[2019-01-19] MEDS: oxyCODONE/APAP 5/325MG (PERCOCET 5) TABLET PO PRN ×2 (05:35→21:02)
--- NOTE | 2019-01-19 05:35 | NUR ---
c/o pain level 4/10 on numeric scale, Percocet 1 tab po given
[2019-01-19 05:37] VITALS: BP 168/80
[2019-01-19] MEDS: ceFAZolin INJECTION 1,000 MG in WATER (STERILE) FOR INJECTION 10 ML IV SCH ×4 (05:45→17:53)
[2019-01-19 06:14] LABS: ALANINE AMINOTRANSFERASE 15 U/L (0-55); ALBUMIN 3.2 GM/DL (3.2-4.5); ALKALINE PHOSPHATASE 66 U/L (40-136); BILIRUBIN,TOTAL 0.6 MG/DL (0.1-1.0); BUN/CREATININE RATIO 16; CALCIUM 8.9 MG/DL (8.5-10.1); CARBON DIOXIDE 23 MMOL/L (21-32); CHLORIDE 109 MMOL/L (98-107); CREATININE SERUM 0.82 MG/DL (0.60-1.30); GFR ESTIMATED > 60; GLUCOSE 167 MG/DL (70-105); SODIUM 145 MMOL/L (135-145); TOTAL PROTEIN 6.2 GM/DL (6.4-8.2)
--- NOTE | 2019-01-19 06:20 | NUR ---
resting quietly in bed pain level 0/10 on flacc scale
[2019-01-19] MEDS: MULTIVIT W/MINERALS TAB (THERAGRAN M) PO SCH (06:57)
[2019-01-19] MEDS: ENOXAPARIN 30 MG/0.3 ML (LOVENOX) SYR SC SCH ×2 (06:57→18:10)
--- NOTE | 2019-01-19 07:18 | NUR ---
bedside report given to LUANNE LAZO
[2019-01-19] MEDS: clonazePAM 1 MG (KlonoPIN) TAB PO SCH ×2 (08:10→20:53)
[2019-01-19] MEDS: ASPIRIN E.C. 81 MG (ECOTRIN) TAB PO SCH (08:10)
[2019-01-19] MEDS: AMIODARONE 200 MG (CORDARONE) TAB PO SCH ×2 (08:11→20:53)
[2019-01-19] MEDS: SENNA W/DOCUSATE (SENOKOT S) TABLET PO SCH ×2 (08:11→20:53)
[2019-01-19] MEDS: MICONAZOLE 2% POWDER (DESENEX AF) 90 GM TOP SCH ×2 (08:12→20:55)
[2019-01-19] MEDS: ENALAPRIL 5 MG (VASOTEC) TAB PO SCH ×2 (08:12→20:53)
[2019-01-19] MEDS: NYSTATIN CREAM (MYCOSTATIN) 30 GM TUBE TP SCH ×2 (08:12→20:55)
--- NOTE | 2019-01-19 08:14 | PM&R Progress Note ---
Subjective HPI/CC On Admission Date Seen by Provider: Jan 19, 2019 Time Seen by Provider: 08:30 Chief complaint: Debility following right total knee replacement History of present illness: This is a 73-year-old white male clinic patient of [facility] and Dr. Fairbanks cardiology who maintains pacemaker who presents to inpatient rehabilitation following severe debility after her right total knee replacement. He had an uncomplicated surgery and is currently in need of aggressive rehabilitation in order return home with his to lessen the burden on his caregiver and improved success when discharged home with improved ambulation fall risk prevention. He had an uneventful hospital course following the surgery and is currently doing well although details are minimal considering his history of dementia but he is able to participate in therapy and obtain benefit from the aggressive inpatient rehabilitation protocol. At this current time patient denies any bowel movement since he arrived at the hospital for his surgery but he is urinating well with good flow and no retention since surgery. Subjective/Events-last exam WBC count down from 12 to 18 originally Hgb stable at 10.9 CMP is normal Bowel movement treatment will be restarted Klonopin schedule is really helping him Right leg is much improved with the acute on chronic venous stasis changes with cellulitis Check meds and labs Conferred with RN Reviewed therapy notes Review of Systems General: Fatigue Musculoskeletal: leg pain Neurological: Confusion Focused Exam Lactate Level 01/17/19 13:05: Lactic Acid Level 1.03 Objective Exam Vital Signs Vital Signs Date Time Temp Pulse Resp B/P (MAP) Pulse Ox O2 Delivery O2 Flow Rate FiO2 01/19/19 16:03 36.8 62 16 163/78 96 Room Air 01/19/19 06:25 2.00 Capillary Refill : General Appearance: No Apparent Distress, WD/WN, Chronically ill, Obese, Other (flushed) HEENT: PERRL/EOMI, Normal ENT Inspection, Pharynx Normal, Moist Mucous Membranes Neck: Full Range of Motion, Normal Inspection, Non Tender, Supple Respiratory: Chest Non Tender, Lungs Clear, Normal Breath Sounds, No Accessory Muscle Use, No Respiratory Distress Cardiovascular: Regular Rate, Rhythm, No Edema, No Gallop, No JVD, No Murmur Gastrointestinal: Normal Bowel Sounds, No Organomegaly, No Pulsatile Mass, Non Tender, Soft Back: Normal Inspection, No CVA Tenderness, No Vertebral Tenderness Extremity: Normal Capillary Refill, Normal Inspection, Normal Range of Motion (except for right knee postop), Non Tender, No Calf Tenderness, No Pedal Edema Neurologic/Psychiatric: Alert, Oriented x3, No Motor/Sensory Deficits, Normal Mood/Affect, Disoriented (subtle) Skin: Normal Color, Warm/Dry, Other (redness around surgical site) Lymphatic: No Adenopathy Results/Procedures Lab Laboratory Tests 01/19/19 04:28 Patient resulted labs reviewed. FIM Transfers Therapy Code Descriptions/Definitions Functional [place] Measure: 0=Not Assessed/NA 4=Minimal Assistance 1=Total Assistance 5=Supervision or Setup 2=Maximal Assistance 6=Modified [place] 3=Moderate Assistance 7=Complete [place] Therapy Quality Codes: 6 Independent with activity with or without an assistive device 5 Patient requires set up or clean up by helper. Patient completes activity by themselves 4 Supervision or touching assist (CGA). [place] provide cues , steadying assist 3 The helper provides less than half the effort to complete the activity 2 The helper provides more than half the effort to complete the activity 1 Dependent. The helper does all the effort to complete an activity 7 Patient refused to complete or attempt activity 9 The patient did not perform the activity before the current illness or injury 88 Not attempted due to Medical conditions or safety concerns Transfers (B, C, W/C) (FIM): 3 Scootin Rollin Roll Left to Right (QC): 2 Supine to/from Sit: 3 Sit to/from Stand: 4 Sit to Lying (QC): 2 Sit to Stand (QC): 3 Chair/Dke-kq-Qegeo Xfer(QC): 3 Bed to/from Chair: 3 Car Transfer (QC): 3 Gait Training Does the Patient Walk?: Yes Gait (FIM): 5 Distance: 100' Walk 10 feet (QC): 4 Gait Level of Assist: 5 Gait Persons Needed: 1 Gait Assistive Device: FWW Wheelchair Training Does the Pt Use a Wheelchair?: Yes Wheelchair (FIM): 1 Stair Training Stairs (FIM): 88 Mental Status/Objective Comprehension: 7 Expression: 7 Social Interaction: 7 Problem Solvin Memory: 6 ADL-Treatment Feedin (by report) Eating (QC): 5 Groomin Oral Hygiene (QC): 4 Bathin Shower/Bathe Self (QC): 3 Lower Extremity Dressin Lower Body Dressing (QC): 1 On/Off Footwear (QC): 1 Toiletin (urinal only) Toileting Hygiene (QC): 4 Toilet/Commode Transfer: 2 Shower: 2 Assessment/Plan Assessment and Plan Assess & Plan/Chief Complaint Plan: Inpatient rehabilitation protocol Intensify bowel regimen until constipation resolved Home meds DVT prophylaxis Monitor labs Monitor blood pressure Monitor postop fever and change Rocephin to Ancef for suspicion of post op wound cellulitis since UA CXR normal (1) Status post right knee replacement Status: Acute (2) Dementia Status: Chronic Qualifiers: Dementia type: unspecified type Dementia behavioral disturbance: without behavioral disturbance Qualified Codes: F03.90 - Unspecified dementia without behavioral disturbance (3) Cellulitis, wound, post-operative Status: Acute (4) CAD (coronary artery disease), [place] coronary artery Status: Chronic Qualifiers: [place] vs. transplanted heart: [place] heart Associated angina: without angina Qualified Codes: I25.10 - Atherosclerotic heart disease of [place] coronary artery without angina pectoris (5) Concentric left ventricular hypertrophy Status: Chronic (6) Grade II diastolic dysfunction Status: Chronic (7) 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 (8) Chronic GERD Status: Chronic (9) Obesity (BMI 30-39.9) Status: Chronic (10) DVT prophylaxis Status: Acute (11) Hearing difficulty Status: Chronic (12) Osteoarthritis of right knee Status: Chronic (13) History of stroke Status: Chronic (14) Dyslipidemia Status: Chronic (15) Major depression, recurrent Status: Chronic (16) Pacemaker Status: Chronic (17) Chronic fatigue Status: Chronic (18) Sleep apnea Status: Chronic (19) Type II diabetes mellitus with complication Status: Chronic (20) Hypertension Status: Chronic (21) Hypoxia Status: Chronic (22) Arthritis Status: Chronic (23) Anxiety Status: Chronic (24) Insomnia Status: Chronic Qualifiers: Insomnia type: primary Qualified Codes: F51.01 - 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 (25) Unable to ambulate Status: Acute (26) Fever Status: Acute Qualifiers: Fever type: unspecified Qualified Codes: R50.9 - Fever, unspecified (27) Frequent falls Status: Acute DIYA ELDER DO Jan 19, 2019 08:14
--- NOTE | 2019-01-19 10:03 | Occupational Ther Daily Note ---
OT Current Status-Daily Note Subjective Pt alert sitting in bed upon OT arrival. Pt states he is nervous about his skin blisters healing and how well he will get along in rehab. Pt agrees to therapy. Mental Status/Objective Patient Orientation: Person, Place, Time, Situation Therapy Code Descriptions/Definitions Functional [place] Measure: 0=Not Assessed/NA 4=Minimal Assistance 1=Total Assistance 5=Supervision or Setup 2=Maximal Assistance 6=Modified [place] 3=Moderate Assistance 7=Complete [place] ADL-Treatment Pt declined shower. Pt performed sponge bath at sink sitting in chair. Pt required VC's to wash under arms and face. Pt able to dry self. Therapy Code Descriptions/Definitions Functional [place] Measure: 0=Not Assessed/NA 4=Minimal Assistance 1=Total Assistance 5=Supervision or Setup 2=Maximal Assistance 6=Modified [place] 3=Moderate Assistance 7=Complete [place] Therapy Quality Codes: 6 Independent with activity with or without an assistive device 5 Patient requires set up or clean up by helper. Patient completes activity by themselves 4 Supervision or touching assist (CGA). [place] provide cues , steadying assist 3 The helper provides less than half the effort to complete the activity 2 The helper provides more than half the effort to complete the activity 1 Dependent. The helper does all the effort to complete an activity 7 Patient refused to complete or attempt activity 9 The patient did not perform the activity before the current illness or injury 88 Not attempted due to Medical conditions or safety concerns Grooming (FIM): 6 (Pt able to brush hair and teeth by self sitting in chair. ) Oral Hygiene (QC): 6 Upper Body (FIM): 5 (Pt able to doff hospital gown by self sitting in chair. Pt able to thread arms and head through shirt by self sitting in chair. Set up.) Upper Body Dressing (QC): 5 On/Off Footwear (QC): 6 (Pt able to don R shoes by self. Pt required AE to don L shoe. ) Transfers (B, C, W/C) (FIM): 4 (Pt able to sit EOB by self. Pt requires Min Assist lifting while stand to sit and sit to stand. ) Other Treatment Pt ambulated to therapy gym using FWW. Pt required 1 rest break due to decreased activity tolerance. Pt participated in duration 10 min at 20 watt resistance arm bike exercise to increase strength in upper body for functional daily activity tasks. Pt ambulated to room. Pt transferred to chair. Call light and phone in reach, all needs met. OT Short Term Goals Short Term Goals Time Frame: Jan 23, 2019 Bathing(FIM): 4 Upper Body Dressing(FIM): 5 Lower Body Dressing(FIM): 3 Toileting(FIM): 3 Toilet/Commode Transfer(FIM): 4 Shower Transfer(FIM): 4 Additional Short Term Goals: 1-Demonstrate ADL Tasks, 2-Verbalize Understanding, 3-ImproveStrength/Nilda 1=Demonstrate adherence to instructed precautions during ADL tasks. 2=Patient will verbalize/demonstrate understanding of assistive devices/modifications for ADL. 3=Patient will improve strength/tolerance for activity to enable patient to perform ADL's. OT Hand Pleater Goals Care Home Goals Time Frame: Feb 06, 2019 Eating (FIM): 6 Eating (QC): 6 Groomin Oral Hygiene (QC): 6 Bathing(FIM): 6 Shower/Bathe Self (QC): 4 Upper Body Dressing(FIM): 6 Upper Body Dressing (QC): 5 Lower Body Dressing(FIM): 6 Lower Body Dressing (QC): 5 On/Off Footwear (QC): 5 Toileting(FIM): 6 Toileting Hygiene (QC): 6 Toilet/Commode Transfer(FIM): 6 Toilet/Commode Transfer (QC): 6 Shower Transfer(FIM): 5 Additional Goals: 1-Demonstrate ADL Tasks, 2-Verbalize Understanding, 3-Impro veStrength/Nilda 1=Demonstrate adherence to instructed precautions during ADL tasks. 2=Patient will verbalize/demonstrate understanding of assistive devices/modifications for ADL. 3=Patient will improve strength/tolerance for activity to enable patient to perform ADL's. OT Education/Plan Problem List/Assessment Assessment: Decreased UE Strength, Impaired Self-Care Skills Pt s/p right TKA with decreased mobility, strength, activity tolerance, and ADL functioning. Pt to benefit from skilled OT intervention for ADL training, transfers, strengthening, and home safety education to increase level of independence and allow safe discharge plan. Discharge Recommendations Plan/Recommendations: Continue POC Treatment Plan/Plan of Care Patient would benefit from OT for education, treatment and training to promote independence in ADL's, mobility, safety and/or upper extremity function for ADL's. Plan of Care: ADL Retraining, Functional Mobility, Group Exercise/Act as Ind, UE Funct Exercise/Act Treatment Duration: Feb 06, 2019 Frequency: At least 5 of 7 days/Wk (IRF) Estimated Hrs Per Day: 1.5 hours per day Rehab Potential: Fair Time/GCodes Start Time: 09:00 Stop Time: 10:00 Total Time Billed (hr/min): 60 Billed Treatment Time 1 visit- ADL 3 (40 min) EX 1 (20 min) ANASTACIA ERICKSON Jan 19, 2019 10:02
--- NOTE | 2019-01-19 11:15 | Physical Therapy Daily Note ---
PT Daily Note-Current Subjective Patient in recliner pre tx, agrees to PT, has 4/10 pain in right knee. Appearance Patient in recliner post tx with nurse call, phone, tray, all needs met. Mental Status Patient Orientation: Person, Place, Situation Transfers Therapy Code Descriptions/Definitions Functional [place] Measure: 0=Not Assessed/NA 4=Minimal Assistance 1=Total Assistance 5=Supervision or Setup 2=Maximal Assistance 6=Modified [place] 3=Moderate Assistance 7=Complete [place] Therapy Quality Codes: 6 Independent with activity with or without an assistive device 5 Patient requires set up or clean up by helper. Patient completes activity by themselves 4 Supervision or touching assist (CGA). [place] provide cues , steadying assist 3 The helper provides less than half the effort to complete the activity 2 The helper provides more than half the effort to complete the activity 1 Dependent. The helper does all the effort to complete an activity 7 Patient refused to complete or attempt activity 9 The patient did not perform the activity before the current illness or injury 88 Not attempted due to Medical conditions or safety concerns Transfers (B, C, W/C) (FIM): 5 Sit to/from Stand: 5 Bed to/from Chair: 5 occasional cues for hand placement and safety Weight Bearing Right Lower Extremity: Right Weight Bearing/Tolerated Gait Training Gait (FIM): 5 Distance: 120'x2 Gait Level of Assist: 5 Gait Persons Needed: 1 Gait Assistive Device: FWW Slow but steady ambulation, antalgic, cues for better step through with right leg, very little knee flexion on the right side Exercises Seated Therapy Exercises: Ankle pumps, Hip flexion Seated Reps: 20 Standing: Hip Abduction, Heel/toe raises, Marching, Mini squats Standing Reps: 15 right knee manual flex/ext stretch NuStep Minutes: 15 NuStep Workload: 5 Treatments LE exercise, stretching, ambulation, transfers Assessment Current Status: Fair Progress improving ambulation PT Short Term Goals Short Term Goals Time Frame: Jan 23, 2019 Gait (FIM): 1 Gait Distance Comment: 20' Gait Level of Assist: 4 Gait Assistive Device: FWW PT Cyber Security Consultant Goals Cyber Security Consultant Goals PT [facility] Goals Time Frame: Feb 06, 2019 Transfers (B,C,W/C) (FIM): 5 Sit to Lying (QC): 4 Lying-Sitting on Side/Bed(QC): 4 Sit to Stand (QC): 4 Rollin Roll Left to Right (QC): 4 Chair/Bci-np-Sgjrb Xfer(QC): 4 Car Transfer (QC): 4 Gait (FIM): 2 Distance: 50' Walk 10 feet (QC): 4 Walk 10ft-Uneven Surface(QC): 4 Walk 50ft with 2 Turns (QC): 4 Gait Level of Assist: 5 Gait Assistive Device: FWW Stairs (FIM): 2 # of Steps: 4 1 Step (curb) (QC): 3 4 Steps (QC): 3 PT Plan Problem List Problem List: Activity Tolerance, Functional Strength, Safety, Balance, Gait, Transfer, Bed Mobility, ROM Treatment/Plan Treatment Plan: Continue Plan of Care Treatment Plan: Bed Mobility, Concurrent Therapy, Education, Functional Activity Nilda, Functional Strength, Group Therapy, Gait, Safety, Therapeutic Exercise, Transfers Treatment Duration: Feb 06, 2019 Frequency: At least 5 of 7 days/Wk (IRF) Estimated Hrs Per Day: 1.5 hours per day Patient and/or Family Agrees t: Yes Safety Risks/Education Patient Education: Gait Training, Transfer Techniques, Correct Positioning, Safety Issues Teaching Recipient: Patient Teaching Methods: Demonstration, Discussion Response to Teaching: Reinforcement Needed Time/GCodes Time In: 1015 Time Out: 1115 Total Billed Treatment Time: 60 Total Billed Treatment 1 visit EX 40' GT 20' MARILEE ROMO PT Jan 19, 2019 11:15
--- NOTE | 2019-01-19 14:58 | NUR ---
Initial assessment This worker met with patient to complete initial assessment. Patient admitted to ARU on 01/16/19 s/p right TKR on 01/14/[address] Dumont. Prior to hospitalization the patient was living with his spouse in [place], [place]. He was reportedly independent with ADLs and functionally mobile with a rolling walker. Patient reports he has the rolling walker he was using prior to hospitalization. Patient identifies Krystal Giron, spouse, as his primary contact. Her phone number is [phone]. He identifies Dr. Chantell Lopez with the [facility] as his primary physician. Patient confirmed his primary insurance as Medicare with no supplemental coverage. Patient identifies [email or web address] as his primary pharmacy. The purpose of Weekly Team Conference was discussed and the patient displayed understanding. Patient's discharge goal is to return home with his spouse.
--- NOTE | 2019-01-19 15:01 | Therapy Group Daily Note ---
Therapy Daily Group Note Patient Education Topic Other List Below (ARU orientation, transfers/bed mobility) Exercises LE Seated Exercise, UE Exercise Session Ratio (pt:therapist): 3:1 Goal of Session: Education on ARU Expectations, UE/LE Strengthing, Safety with Transfers Goal Met for this Session: Yes Pt Benefit of Group: Contributions to Others, Increased Functional Safety, Increased Functional Strength, Improved Cognition, Recognition of Peers, Socialization Other/Notes Pt ambulated using FWW to OT/PT group. Group consisted of introduction (name, place living, favorite school activity), socialization, ARU orientation, UE/LE seated exercises and transfer/bed mobility education. Pt introduced self appropriately and actively listened to peers. Pt contributed to conversations and initiated responses to educational topics. Pt demonstrated understanding of group educational topics with affirmative gestures and verbalizing understanding. Pt completed UE/LE seated exercises and tolerated well. After therapy, pt lying in bed with call light/phone in reach. All needs met in room. Start Time: 13:00 Stop Time: 14:10 Total Billed Treatment Time: 70 Total Billed Treatment 1-GRP ANASTACIA ERICKSON Jan 19, 2019 15:01
[2019-01-19 16:03] VITALS: BP 163/78
--- NOTE | 2019-01-19 17:30 | Anesthesia-Procedure Note ---
Procedures/Interventions Procedure Start/Stop/Diagnosis Date of Procedure: Jan 19, 2019 Start Time: 17:20 Referring Physician: Yulisa Stop Time: 17:25 Central Line/IV Access IV : Location: Left Site: Forearm IV Catheter Type: Peripheral IV IV Catheter Gauge: 22 OSIEL TSAI CRNA Jan 19, 2019 17:29
--- NOTE | 2019-01-19 18:37 | Progress Note ---
Standard Progress Note Progress Notes/Assess & Plan Date Seen by a Provider: Jan 19, 2019 Time Seen by a Provider: 17:44 Progress/Assessment & Plan patient feeling better Vital Signs Date Time Temp Pulse Resp B/P (MAP) Pulse Ox O2 Delivery O2 Flow Rate FiO2 01/18/19 08:10 Room Air 01/18/19 07:40 Nasal Cannula 2.00 01/18/19 05:38 37.2 77 18 153/85 97 Nasal Cannula 2.00 01/17/19 21:11 Nasal Cannula 2.00 01/17/19 21:05 37.3 75 18 150/75 97 Nasal Cannula 2.00 01/17/19 16:01 Nasal Cannula 2.00 01/17/19 15:55 36.6 77 16 156/79 100 Nasal Cannula 2.00 I & O 01/18/19 07:00 Intake Total 2070 ml Output Total 675 ml Balance 1395 ml Laboratory Tests Test 01/17/19 13:53 01/18/19 05:00 Range/Units Urine Color YELLOW Urine Clarity SL CLOUDY Urine pH 6 5-9 Urine Specific [place] 1.020 1.016-1.022 Urine Protein 3+ H NEGATIVE Urine Glucose (UA) 3+ H NEGATIVE Urine Ketones 1+ H NEGATIVE Urine Nitrite NEGATIVE NEGATIVE Urine Bilirubin NEGATIVE NEGATIVE Urine Urobilinogen 1 NORMAL MG/DL Urine Leukocyte Esterase NEGATIVE NEGATIVE Urine RBC (Auto) 2+ H NEGATIVE Urine RBC 0-2 /HPF Urine WBC 0-2 /HPF Urine Squamous Epithelial Cells NONE /HPF Urine Crystals PRESENT H /LPF Urine Amorphous Sediment FEW FELIPA URATES H /LPF Urine Bacteria MODERATE H /HPF Urine Casts PRESENT /LPF Urine Hyaline Casts 0-2 H /LPF Urine Granular Casts 2-5 H /LPF Urine Mucus MODERATE H /LPF Urine Other FEW SPERM H /HPF Urine Culture Indicated YES White Blood Count 15.1 H 4.3-11.0 10^3/uL Red Blood Count 3.90 L 4.35-5.85 10^6/uL Hemoglobin 10.4 L 13.3-17.7 G/DL Hematocrit 34 L 40-54 % Mean Corpuscular Volume 86 80-99 FL Mean Corpuscular Hemoglobin 27 25-34 PG Mean Corpuscular Hemoglobin Concent 31 L 32-36 G/DL Red Cell Distribution Width 16.7 H 10.0-14.5 % Platelet Count 174 130-400 10^3/uL Mean Platelet Volume 11.0 H 7.4-10.4 FL Neutrophils (%) (Auto) 86 H 42-75 % Lymphocytes (%) (Auto) 8 L 12-44 % Monocytes (%) (Auto) 7 0-12 % Eosinophils (%) (Auto) 0 0-10 % Basophils (%) (Auto) 0 0-10 % Neutrophils # (Auto) 12.9 H 1.8-7.8 X 10^3 Lymphocytes # (Auto) 1.2 1.0-4.0 X 10^3 Monocytes # (Auto) 1.0 0.0-1.0 X 10^3 Eosinophils # (Auto) 0.0 0.0-0.3 10^3/uL Basophils # (Auto) 0.0 0.0-0.1 10^3/uL Sodium Level 142 135-145 MMOL/L Potassium Level 4.2 3.6-5.0 MMOL/L Chloride Level 108 H 98-107 MMOL/L Carbon Dioxide Level 23 21-32 MMOL/L Anion Gap 11 5-14 MMOL/L Blood Urea Nitrogen 14 7-18 MG/DL Creatinine 0.85 0.60-1.30 MG/DL Estimat Glomerular Filtration Rate > 60 BUN/Creatinine Ratio 16 Glucose Level 167 H 70-105 MG/DL Calcium Level 8.5 8.5-10.1 MG/DL Corrected Calcium 9.3 8.5-10.1 MG/DL Total Bilirubin 0.7 0.1-1.0 MG/DL Aspartate Amino Transf (AST/SGOT) 18 5-34 U/L Alanine Aminotransferase (ALT/SGPT) 17 0-55 U/L Alkaline Phosphatase 72 40-136 U/L Total Protein 6.2 L 6.4-8.2 GM/DL Albumin 3.0 L 3.2-4.5 GM/DL RLE--incision clean and dry. fracture blister distal to incision. lower leg erythematous. Neg Josefina's s/p RTKA with distal cellulitis. Not surprising, considering venous insufficiency history continue PT/OT change abx to Ancef. If no response within 48 hours, will switch to Bactrim/Doxycycline Final Diagnosis no complaints Laboratory Tests Test 01/19/19 04:28 Range/Units White Blood Count 12.1 H 4.3-11.0 10^3/uL Red Blood Count 4.13 L 4.35-5.85 10^6/uL Hemoglobin 10.9 L 13.3-17.7 G/DL Hematocrit 36 L 40-54 % Mean Corpuscular Volume 86 80-99 FL Mean Corpuscular Hemoglobin 26 25-34 PG Mean Corpuscular Hemoglobin Concent 31 L 32-36 G/DL Red Cell Distribution Width 17.3 H 10.0-14.5 % Platelet Count 226 130-400 10^3/uL Mean Platelet Volume 10.6 H 7.4-10.4 FL Neutrophils (%) (Auto) 83 H 42-75 % Lymphocytes (%) (Auto) 10 L 12-44 % Monocytes (%) (Auto) 7 0-12 % Eosinophils (%) (Auto) 0 0-10 % Basophils (%) (Auto) 0 0-10 % Neutrophils # (Auto) 10.0 H 1.8-7.8 X 10^3 Lymphocytes # (Auto) 1.2 1.0-4.0 X 10^3 Monocytes # (Auto) 0.9 0.0-1.0 X 10^3 Eosinophils # (Auto) 0.0 0.0-0.3 10^3/uL Basophils # (Auto) 0.0 0.0-0.1 10^3/uL Sodium Level 145 135-145 MMOL/L Potassium Level 4.0 3.6-5.0 MMOL/L Chloride Level 109 H 98-107 MMOL/L Carbon Dioxide Level 23 21-32 MMOL/L Anion Gap 13 5-14 MMOL/L Blood Urea Nitrogen 13 7-18 MG/DL Creatinine 0.82 0.60-1.30 MG/DL Estimat Glomerular Filtration Rate > 60 BUN/Creatinine Ratio 16 Glucose Level 167 H 70-105 MG/DL Calcium Level 8.9 8.5-10.1 MG/DL Corrected Calcium 9.5 8.5-10.1 MG/DL Total Bilirubin 0.6 0.1-1.0 MG/DL Aspartate Amino Transf (AST/SGOT) 16 5-34 U/L Alanine Aminotransferase (ALT/SGPT) 15 0-55 U/L Alkaline Phosphatase 66 40-136 U/L Total Protein 6.2 L 6.4-8.2 GM/DL Albumin 3.2 3.2-4.5 GM/DL RLE incision clean and dry distal erythema improved neg Homans s/p RTKA with improving distal cellulitis continue PT/OT Focused Exam Lactate Level 01/17/19 13:05: Lactic Acid Level 1.03 MARCO DIETZ MD Jan 19, 2019 18:37
[2019-01-20] MEDS: ceFAZolin INJECTION 1,000 MG in WATER (STERILE) FOR INJECTION 10 ML IV SCH ×3 (02:13→17:20)
[2019-01-20 05:50] VITALS: BP 165/80
[2019-01-20] MEDS: ENOXAPARIN 30 MG/0.3 ML (LOVENOX) SYR SC SCH ×2 (06:31→20:49)
[2019-01-20] MEDS: MULTIVIT W/MINERALS TAB (THERAGRAN M) PO SCH (06:31)
--- NOTE | 2019-01-20 08:12 | PM&R Progress Note ---
Subjective HPI/CC On Admission Date Seen by Provider: Jan 20, 2019 Time Seen by Provider: 08:30 Chief complaint: Debility following right total knee replacement History of present illness: This is a 73-year-old white male clinic patient of [facility] and Dr. Fairbanks cardiology who m aintains pacemaker who presents to inpatient rehabilitation following severe debility after her right total knee replacement. He had an uncomplicated surgery and is currently in need of aggressive rehabilitation in order return home with his to lessen the burden on his caregiver and improved success when discharged home with improved ambulation fall risk prevention. He had an uneventful hospital course following the surgery and is currently doing well although details are minimal considering his history of dementia but he is able to participate in therapy and obtain benefit from the aggressive inpatient rehabilitation protocol. At this current time patient denies any bowel movement since he arrived at the hospital for his surgery but he is urinating well with good flow and no retention since surgery. Subjective/Events-last exam Pt doing very well. Walking the halls with therapy. Denies any significant pain. Klonopin scheduled is really helping him. Lungs remain clear. Maintain on Ancef for left acute on chronic lower extremity edema with post-op wound cellulitis. Will check labs periodically. Will convert over to oral antibiotics in the future. Check meds and labs Conferred with RN Reviewed therapy notes Review of Systems General: Fatigue Pulmonary: Dyspnea Musculoskeletal: leg pain Focused Exam Lactate Level Objective Exam Vital Signs Vital Signs Date Time Temp Pulse Resp B/P (MAP) Pulse Ox O2 Delivery O2 Flow Rate FiO2 01/20/19 17:18 36.5 79 18 165/84 (111) 96 Room Air 01/19/19 06:25 2.00 Capillary Refill : General Appearance: No Apparent Distress, WD/WN, Chronically ill, Obese, Other (flushed) HEENT: PERRL/EOMI, Normal ENT Inspection, Pharynx Normal, Moist Mucous Membranes Neck: Full Range of Motion, Normal Inspection, Non Tender, Supple Respiratory: Chest Non Tender, Lungs Clear, Normal Breath Sounds, No Accessory Muscle Use, No Respiratory Distress Cardiovascular: Regular Rate, Rhythm, No Edema, No Gallop, No JVD, No Murmur Gastrointestinal: Normal Bowel Sounds, No Organomegaly, No Pulsatile Mass, Non Tender, Soft Back: Normal Inspection, No CVA Tenderness, No Vertebral Tenderness Extremity: Normal Capillary Refill, Normal Inspection, Normal Range of Motion (except for right knee postop), Non Tender, No Calf Tenderness, No Pedal Edema Neurologic/Psychiatric: Alert, Oriented x3, No Motor/Sensory Deficits, Normal Mood/Affect, Disoriented (subtle) Skin: Normal Color, Warm/Dry, Other (redness around surgical site) Lymphatic: No Adenopathy Results/Procedures Lab Patient resulted labs reviewed. FIM Transfers Therapy Code Descriptions/Definitions Functional [place] Measure: 0=Not Assessed/NA 4=Minimal Assistance 1=Total Assistance 5=Supervision or Setup 2=Maximal Assistance 6=Modified [place] 3=Moderate Assistance 7=Complete [place] Therapy Quality Codes: 6 Independent with activity with or without an assistive device 5 Patient requires set up or clean up by helper. Patient completes activity by themselves 4 Supervision or touching assist (CGA). [place] provide cues , steadying a ssist 3 The helper provides less than half the effort to complete the activity 2 The helper provides more than half the effort to complete the activity 1 Dependent. The helper does all the effort to complete an activity 7 Patient refused to complete or attempt activity 9 The patient did not perform the activity before the current illness or injury 88 Not attempted due to Medical conditions or safety concerns Transfers (B, C, W/C) (FIM): 4 (Pt able to sit EOB by self. Pt requires Min Assist lifting while stand to sit and sit to stand. ) Scootin Rollin Roll Left to Right (QC): 2 Supine to/from Sit: 3 Sit to/from Stand: 5 Sit to Lying (QC): 2 Sit to Stand (QC): 3 Chair/Ktw-ve-Bjand Xfer(QC): 3 Bed to/from Chair: 5 Car Transfer (QC): 3 Gait Training Does the Patient Walk?: Yes Gait (FIM): 5 Distance: 120'x2 Walk 10 feet (QC): 4 Gait Level of Assist: 5 Gait Persons Needed: 1 Gait Assistive Device: FWW Wheelchair Training Does the Pt Use a Wheelchair?: Yes Wheelchair (FIM): 1 Stair Training Stairs (FIM): 88 Mental Status/Objective Comprehension: 7 Expression: 7 Social Interaction: 7 Problem Solvin Memory: 6 ADL-Treatment Feedin (by report) Eating (QC): 5 Groomin (Pt able to brush hair and teeth by self sitting in chair. ) Oral Hygiene (QC): 6 Bathin Shower/Bathe Self (QC): 3 Upper Extremity Dressin (Pt able to doff hospital gown by self sitting in chair. Pt able to thread arms and head through shirt by self sitting in chair. Set up.) Upper Body Dressing (QC): 5 Lower Extremity Dressin Lower Body Dressing (QC): 1 On/Off Footwear (QC): 6 (Pt able to don R shoes by self. Pt required AE to don L shoe. ) Toiletin (urinal only) Toileting Hygiene (QC): 4 Toilet/Commode Transfer: 2 Shower: 2 Assessment/Plan Assessment and Plan Assess & Plan/Chief Complaint Plan: Inpatient rehabilitation protocol Intensify bowel regimen until constipation resolved Home meds DVT prophylaxis Monitor labs Monitor blood pressure Monitor postop fever and change Rocephin to Ancef for suspicion of post op wound cellulitis since UA CXR normal (1) Status post right knee replacement Status: Acute (2) Dementia Status: Chronic Qualifiers: Dementia type: unspecified type Dementia behavioral disturbance: without behavioral disturbance Qualified Codes: F03.90 - Unspecified dementia without behavioral disturbance (3) Cellulitis, wound, post-operative Status: Acute (4) CAD (coronary artery disease), [place] coronary artery Status: Chronic Qualifiers: [place] vs. transplanted heart: [place] heart Associated angina: without angina Qualified Codes: I25.10 - Atherosclerotic heart disease of [place] coronary artery without angina pectoris (5) Concentric left ventricular hypertrophy Status: Chronic (6) Grade II diastolic dysfunction Status: Chronic (7) 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 (8) Chronic GERD Status: Chronic (9) Obesity (BMI 30-39.9) Status: Chronic (10) DVT prophylaxis Status: Acute (11) Hearing difficulty Status: Chronic (12) Osteoarthritis of right knee Status: Chronic (13) History of stroke Status: Chronic (14) Dyslipidemia Status: Chronic (15) Major depression, recurrent Status: Chronic (16) Pacemaker Status: Chronic (17) Chronic fatigue Status: Chronic (18) Sleep apnea Status: Chronic (19) Type II diabetes mellitus with complication Status: Chronic (20) Hypertension Status: Chronic (21) Hypoxia Status: Chronic (22) Arthritis Status: Chronic (23) Anxiety Status: Chronic (24) Insomnia Status: Chronic Qualifiers: Insomnia type: primary Qualified Codes: F51.01 - 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 (25) Unable to ambulate Status: Acute (26) Fever Status: Acute Qualifiers: Fever type: unspecified Qualified Codes: R50.9 - Fever, unspecified (27) Frequent falls Status: Acute DIYA ELDER DO Jan 20, 2019 08:12
[2019-01-20] MEDS: NYSTATIN CREAM (MYCOSTATIN) 30 GM TUBE TP SCH ×2 (08:50→20:53)
[2019-01-20] MEDS: MICONAZOLE 2% POWDER (DESENEX AF) 90 GM TOP SCH ×2 (08:50→20:53)
[2019-01-20] MEDS: clonazePAM 1 MG (KlonoPIN) TAB PO SCH ×2 (08:51→20:49)
[2019-01-20] MEDS: SENNA W/DOCUSATE (SENOKOT S) TABLET PO SCH ×2 (08:51→20:53)
[2019-01-20] MEDS: ENALAPRIL 5 MG (VASOTEC) TAB PO SCH ×2 (08:51→20:53)
[2019-01-20] MEDS: ASPIRIN E.C. 81 MG (ECOTRIN) TAB PO SCH (08:51)
[2019-01-20] MEDS: AMIODARONE 200 MG (CORDARONE) TAB PO SCH ×2 (08:51→20:52)
--- NOTE | 2019-01-20 08:56 | Physical Therapy Daily Note ---
PT Daily Note-Current Subjective Patient in bed pre tx, agrees to PT, has no complaints of pain at rest. Appearance Patient BTB post tx with nurse call, phone, tray, all needs met. Mental Status Patient Orientation: Person, Place, Situation Transfers Therapy Code Descriptions/Definitions Functional [place] Measure: 0=Not Assessed/NA 4=Minimal Assistance 1=Total Assistance 5=Supervision or Setup 2=Maximal Assistance 6=Modified [place] 3=Moderate Assistance 7=Complete [place] Therapy Quality Codes: 6 Independent with activity with or without an assistive device 5 Patient requires set up or clean up by helper. Patient completes activity by themselves 4 Supervision or touching assist (CGA). [place] provide cues , steadying assist 3 The helper provides less than half the effort to complete the activity 2 The helper provides more than half the effort to complete the activity 1 Dependent. The helper does all the effort to complete an activity 7 Patient refused to complete or attempt activity 9 The patient did not perform the activity before the current illness or injury 88 Not attempted due to Medical conditions or safety concerns Transfers (B, C, W/C) (FIM): 5 Scootin Rollin Supine to/from Sit: 6 Sit to/from Stand: 5 Bed to/from Chair: 5 Weight Bearing Right Lower Extremity: Right Weight Bearing/Tolerated Gait Training Gait (FIM): 5 Distance: 200'x2 Gait Level of Assist: 5 Gait Persons Needed: 1 Gait Assistive Device: FWW slow but steady ambulation, small steps but improved step-through Exercises Supine Ex: Ankle pumps, Quad Set, Heel Slides, Short Arc Quads, Straight leg raise Supine Reps: 20 LAQ right side for 5 min with 2# ankle weight NuStep Minutes: 15 NuStep Workload: 5 Treatments LE exercise, bed mobility and transfers, ambulation Assessment Current Status: Fair Progress improving endurance PT Short Term Goals Short Term Goals Time Frame: Jan 23, 2019 Gait (FIM): 1 Gait Distance Comment: 20' Gait Level of Assist: 4 Gait Assistive Device: FWW PT Combination Welder Goals Combination Welder Goals PT Skilled Nursing Goals Time Frame: Feb 06, 2019 Transfers (B,C,W/C) (FIM): 5 Sit to Lying (QC): 4 Lying-Sitting on Side/Bed(QC): 4 Sit to Stand (QC): 4 Rollin Roll Left to Right (QC): 4 Chair/Eqy-ix-Owsgj Xfer(QC): 4 Car Transfer (QC): 4 Gait (FIM): 2 Distance: 50' Walk 10 feet (QC): 4 Walk 10ft-Uneven Surface(QC): 4 Walk 50ft with 2 Turns (QC): 4 Gait Level of Assist: 5 Gait Assistive Device: FWW Stairs (FIM): 2 # of Steps: 4 1 Step (curb) (QC): 3 4 Steps (QC): 3 PT Plan Problem List Problem List: Activity Tolerance, Functional Strength, Safety, Balance, Gait, Transfer, Bed Mobility, ROM Treatment/Plan Treatment Plan: Continue Plan of Care Treatment Plan: Bed Mobility, Concurrent Therapy, Education, Functional Activity Nilda, Functional Strength, Group Therapy, Gait, Safety, Therapeutic Exercise, Transfers Treatment Duration: Feb 06, 2019 Frequency: At least 5 of 7 days/Wk (IRF) Estimated Hrs Per Day: 1.5 hours per day Patient and/or Family Agrees t: Yes Safety Risks/Education Patient Education: Gait Training, Transfer Techniques, Correct Positioning, Safety Issues Teaching Recipient: Patient Teaching Methods: Demonstration, Discussion Response to Teaching: Reinforcement Needed Time/GCodes Time In: 0800 Time Out: 0900 Total Billed Treatment Time: 60 Total Billed Treatment 1 visit EX 30' GT 20' FA 10' MARILEE ROMO PT Jan 20, 2019 08:56
--- NOTE | 2019-01-20 11:21 | Occupational Ther Daily Note ---
OT Current Status-Daily Note Subjective Pt alert sitting in bed upon OT arrival. Pt agrees to therapy. No c/o pain. Mental Status/Objective Patient Orientation: Person, Place, Time, Situation Therapy Code Descriptions/Definitions Functional [place] Measure: 0=Not Assessed/NA 4=Minimal Assistance 1=Total Assistance 5=Supervision or Setup 2=Maximal Assistance 6=Modified [place] 3=Moderate Assistance 7=Complete [place] ADL-Treatment Therapy Code Descriptions/Definitions Functional [place] Measure: 0=Not Assessed/NA 4=Minimal Assistance 1=Total Assistance 5=Supervision or Setup 2=Maximal Assistance 6=Modified [place] 3=Moderate Assistance 7=Complete [place] Therapy Quality Codes: 6 Independent with activity with or without an assistive device 5 Patient requires set up or clean up by helper. Patient completes activity by themselves 4 Supervision or touching assist (CGA). [place] provide cues , steadying assist 3 The helper provides less than half the effort to complete the activity 2 The helper provides more than half the effort to complete the activity 1 Dependent. The helper does all the effort to complete an activity 7 Patient refused to complete or attempt activity 9 The patient did not perform the activity before the current illness or injury 88 Not attempted due to Medical conditions or safety concerns Grooming (FIM): 6 (Pt able to brush teeth and hair sitting in chair at sink. ) Oral Hygiene (QC): 6 Bathing (FIM): 5 (Pt required SBA while standing to wash buttocks and jean area. Pt able to wash, rinse by self. Pt needed verbal cues to dry legs. ) Bathing Location: L Arm, R Arm, L Upper Leg, R Upper Leg, L Lower Leg (including foot), R Lower Leg (including foot), Chest, Abdomen, Buttocks, Perineal Area Shower/Bathe Self (QC): 4 Upper Body (FIM): 5 (Pt able to don/doff shirt by self. Set up.) Upper Body Dressing (QC): 5 Lower Body Dressing (FIM): 4 (Pt able to doff underwear, shorts, and socks by self. SBA assist while standing for safety concern. Pt required assist to don brief over R heel. Pt able to don brief over knee. Pt requires FWW to stand to hike briefs and pants over waist. Pt required assist to adjust briefs and pants in backside. ) Lower Body Dressing (QC): 3 Transfers (B, C, W/C) (FIM): 4 (Pt requires FWW. Pt requires min assist to lift from sit to stand from bed. ) Shower Transfer(FIM): 5 (Pt requires FWW, shower bench, and grab bar. SBA assist while pt performs stand to sit due to safety concern. ) Other Treatment Pt ambulated to therapy gym using FWW. Pt participated in duration 15 min at 25 watt resistance arm bike exercise to increase upper body strength for daily functional activity. Pt required 2 rest breaks due to decreased activity tolerance. Pt ambulated back to room. Pt transferred to bed. Pt laying in bed, call light and phone in reach. Pts needs are met. OT Short Term Goals Short Term Goals Time Frame: Jan 23, 2019 Bathing(FIM): 4 Upper Body Dressing(FIM): 5 Lower Body Dressing(FIM): 3 Toileting(FIM): 3 Toilet/Commode Transfer(FIM): 4 Shower Transfer(FIM): 4 Additional Short Term Goals: 1-Demonstrate ADL Tasks, 2-Verbalize Understanding, 3-ImproveStrength/Nilda 1=Demonstrate adherence to instructed precautions during ADL tasks. 2=Patient will verbalize/demonstrate understanding of assistive devices/modifications for ADL. 3=Patient will improve strength/tolerance for activity to enable patient to perform ADL's. OT Manifest Clerk Goals Usp Goals Time Frame: Feb 06, 2019 Eating (FIM): 6 Eating (QC): 6 Groomin Oral Hygiene (QC): 6 Bathing(FIM): 6 Shower/Bathe Self (QC): 4 Upper Body Dressing(FIM): 6 Upper Body Dressing (QC): 5 Lower Body Dressing(FIM): 6 Lower Body Dressing (QC): 5 On/Off Footwear (QC): 5 Toileting(FIM): 6 Toileting Hygiene (QC): 6 Toilet/Commode Transfer(FIM): 6 Toilet/Commode Transfer (QC): 6 Shower Transfer(FIM): 5 Additional Goals: 1-Demonstrate ADL Tasks, 2-Verbalize Understanding, 3- ImproveStrength/Nilda 1=Demonstrate adherence to instructed precautions during ADL tasks. 2=Patient will verbalize/demonstrate understanding of assistive devices/modifications for ADL. 3=Patient will improve strength/tolerance for activity to enable patient to perform ADL's. OT Education/Plan Problem List/Assessment Assessment: Decreased Activ Tolerance, Decreased UE Strength, Impaired Self- Care Skills Pt s/p right TKA with decreased mobility, strength, activity tolerance, and ADL functioning. Pt to benefit from skilled OT intervention for ADL training, transfers, strengthening, and home safety education to increase level of independence and allow safe discharge plan. Discharge Recommendations Plan/Recommendations: Continue POC Treatment Plan/Plan of Care Patient would benefit from OT for education, treatment and training to promote independence in ADL's, mobility, safety and/or upper extremity function for ADL's. Plan of Care: ADL Retraining, Functional Mobility, Group Exercise/Act as Ind, UE Funct Exercise/Act Treatment Duration: Feb 06, 2019 Frequency: At least 5 of 7 days/Wk (IRF) Estimated Hrs Per Day: 1.5 hours per day Rehab Potential: Fair Time/GCodes Start Time: 09:45 Stop Time: 11:15 Total Time Billed (hr/min): 90 Billed Treatment Time 1 visit- ADL 4 (60 min) EX 1 (15 min) ANASTACIA ERICKSON Jan 20, 2019 11:21
--- NOTE | 2019-01-20 13:35 | Physical Therapy Daily Note ---
PT Daily Note-Current Subjective Patient in bed pre tx, agrees to PT, has no complaints of pain at rest. Appearance Patient in bed post tx with nurse call, phone, tray, all needs met. Mental Status Patient Orientation: Person, Place, Situation Transfers Therapy Code Descriptions/Definitions Functional [place] Measure: 0=Not Assessed/NA 4=Minimal Assistance 1=Total Assistance 5=Supervision or Setup 2=Maximal Assistance 6=Modified [place] 3=Moderate Assistance 7=Complete [place] Therapy Quality Codes: 6 Independent with activity with or without an assistive device 5 Patient requires set up or clean up by helper. Patient completes activity by themselves 4 Supervision or touching assist (CGA). [place] provide cues , steadying assist 3 The helper provides less than half the effort to complete the activity 2 The helper provides more than half the effort to complete the activity 1 Dependent. The helper does all the effort to complete an activity 7 Patient refused to complete or attempt activity 9 The patient did not perform the activity before the current illness or injury 88 Not attempted due to Medical conditions or safety concerns Transfers (B, C, W/C) (FIM): 5 Scootin Rollin Supine to/from Sit: 5 Sit to/from Stand: 5 Bed to/from Chair: 5 Weight Bearing Right Lower Extremity: Right Weight Bearing/Tolerated Gait Training Gait (FIM): 2 Distance: 120'x2 Gait Level of Assist: 5 Gait Persons Needed: 1 Gait Assistive Device: FWW very slow ambulation, fair step-through Exercises Standing: Hip Abduction, Heel/toe raises, Marching, Mini squats Standing Reps: 15 Treatments LE exercise, bed mobility and transfers, ambulation Assessment Current Status: Fair Progress improving general mobility, less shakiness PT Short Term Goals Short Term Goals Time Frame: Jan 23, 2019 Gait (FIM): 1 Gait Distance Comment: 20' Gait Level of Assist: 4 Gait Assistive Device: FWW PT Group Home Goals Retread Builder Goals PT Retread Builder Goals Time Frame: Feb 06, 2019 Transfers (B,C,W/C) (FIM): 5 Sit to Lying (QC): 4 Lying-Sitting on Side/Bed(QC): 4 Sit to Stand (QC): 4 Rollin Roll Left to Right (QC): 4 Chair/Iey-li-Skssd Xfer(QC): 4 Car Transfer (QC): 4 Gait (FIM): 2 Distance: 50' Walk 10 feet (QC): 4 Walk 10ft-Uneven Surface(QC): 4 Walk 50ft with 2 Turns (QC): 4 Gait Level of Assist: 5 Gait Assistive Device: FWW Stairs (FIM): 2 # of Steps: 4 1 Step (curb) (QC): 3 4 Steps (QC): 3 PT Plan Problem List Problem List: Activity Tolerance, Functional Strength, Safety, Balance, Gait, Transfer, Bed Mobility, ROM Treatment/Plan Treatment Plan: Continue Plan of Care Treatment Plan: Bed Mobility, Concurrent Therapy, Education, Functional Activity Nilda, Functional Strength, Group Therapy, Gait, Safety, Therapeutic Exercise, Transfers Treatment Duration: Feb 06, 2019 Frequency: At least 5 of 7 days/Wk (IRF) Estimated Hrs Per Day: 1.5 hours per day Patient and/or Family Agrees t: Yes Safety Risks/Education Patient Education: Gait Training, Transfer Techniques, Correct Positioning, Safety Issues Teaching Recipient: Patient Teaching Methods: Demonstration, Discussion Response to Teaching: Reinforcement Needed Time/GCodes Time In: 1305 Time Out: 1335 Total Billed Treatment Time: 30 Total Billed Treatment 1 visit EX 15' GT 15' MARILEE ROMO PT Jan 20, 2019 13:35
[2019-01-20] MEDS: oxyCODONE/APAP 5/325MG (PERCOCET 5) TABLET PO PRN (14:58)
[2019-01-20 17:18] VITALS: BP 165/84
[2019-01-20] MEDS: DOCUSATE SODIUM 100 MG (COLACE) CAP PO PRN (20:52)
[2019-01-20] MEDS: MELATONIN 3 MG TABLET PO PRN (20:55)
[2019-01-21] MEDS: ceFAZolin INJECTION 1,000 MG in WATER (STERILE) FOR INJECTION 10 ML IV SCH (02:26)
[2019-01-21 04:59] LABS: BASOPHILS % (AUTO) 0 % (0-10); EOSINOPHILS % (AUTO) 0 % (0-10); HEMATOCRIT 37 % (40-54); HEMOGLOBIN 11.3 G/DL (13.3-17.7); LYMPHOCYTES # (AUTO) 1.4 X 10^3 (1.0-4.0); LYMPHOCYTES % (AUTO) 12 % (12-44); MEAN CORPUSCULAR HEMOGLOBIN 26 PG (25-34); MEAN CORPUSCULAR HGB CONC 30 G/DL (32-36); MEAN CORPUSCULAR VOLUME 85 FL (80-99); MEAN PLATELET VOLUME 10.1 FL (7.4-10.4); MONOCYTES % (AUTO) 9 % (0-12); NEUTROPHILS # (AUTO) 9.2 X 10^3 (1.8-7.8); NEUTROPHILS % (AUTO) 79 % (42-75); PLATELET COUNT 295 10^3/uL (130-400); RED CELL DISTRIBUTION WIDTH 17.6 % (10.0-14.5); WHITE BLOOD COUNT 11.8 10^3/uL (4.3-11.0)
[2019-01-21 05:16] VITALS: BP 171/83
[2019-01-21 05:23] LABS: ALANINE AMINOTRANSFERASE 9 U/L (0-55); ALBUMIN 3.2 GM/DL (3.2-4.5); ALKALINE PHOSPHATASE 69 U/L (40-136); BILIRUBIN,TOTAL 0.6 MG/DL (0.1-1.0); BUN/CREATININE RATIO 20; CALCIUM 8.4 MG/DL (8.5-10.1); CARBON DIOXIDE 28 MMOL/L (21-32); CHLORIDE 104 MMOL/L (98-107); CREATININE SERUM 0.82 MG/DL (0.60-1.30); GFR ESTIMATED > 60; GLUCOSE 172 MG/DL (70-105); SODIUM 141 MMOL/L (135-145); TOTAL PROTEIN 6.4 GM/DL (6.4-8.2)
[2019-01-21] MEDS: MULTIVIT W/MINERALS TAB (THERAGRAN M) PO SCH (06:38)
[2019-01-21] MEDS: ENOXAPARIN 30 MG/0.3 ML (LOVENOX) SYR SC SCH ×2 (06:38→18:15)
--- NOTE | 2019-01-21 07:29 | Progress Note ---
Standard Progress Note Progress Notes/Assess & Plan Date Seen by a Provider: Jan 21, 2019 Time Seen by a Provider: 07:28 Progress/Assessment & Plan patient feeling better Vital Signs Date Time Temp Pulse Resp B/P (MAP) Pulse Ox O2 Delivery O2 Flow Rate FiO2 01/18/19 08:10 Room Air 01/18/19 07:40 Nasal Cannula 2.00 01/18/19 05:38 37.2 77 18 153/85 97 Nasal Cannula 2.00 01/17/19 21:11 Nasal Cannula 2.00 01/17/19 21:05 37.3 75 18 150/75 97 Nasal Cannula 2.00 01/17/19 16:01 Nasal Cannula 2.00 01/17/19 15:55 36.6 77 16 156/79 100 Nasal Cannula 2.00 I & O 01/18/19 07:00 Intake Total 2070 ml Output Total 675 ml Balance 1395 ml Laboratory Tests Test 01/17/19 13:53 01/18/19 05:00 Range/Units Urine Color YELLOW Urine Clarity SL CLOUDY Urine pH 6 5-9 Urine Specific [place] 1.020 1.016-1.022 Urine Protein 3+ H NEGATIVE Urine Glucose (UA) 3+ H NEGATIVE Urine Ketones 1+ H NEGATIVE Urine Nitrite NEGATIVE NEGATIVE Urine Bilirubin NEGATIVE NEGATIVE Urine Urobilinogen 1 NORMAL MG/DL Urine Leukocyte Esterase NEGATIVE NEGATIVE Urine RBC (Auto) 2+ H NEGATIVE Urine RBC 0-2 /HPF Urine WBC 0-2 /HPF Urine Squamous Epithelial Cells NONE /HPF Urine Crystals PRESENT H /LPF Urine Amorphous Sediment FEW FELIPA URATES H /LPF Urine Bacteria MODERATE H /HPF Urine Casts PRESENT /LPF Urine Hyaline Casts 0-2 H /LPF Urine Granular Casts 2-5 H /LPF Urine Mucus MODERATE H /LPF Urine Other FEW SPERM H /HPF Urine Culture Indicated YES White Blood Count 15.1 H 4.3-11.0 10^3/uL Red Blood Count 3.90 L 4.35-5.85 10^6/uL Hemoglobin 10.4 L 13.3-17.7 G/DL Hematocrit 34 L 40-54 % Mean Corpuscular Volume 86 80-99 FL Mean Corpuscular Hemoglobin 27 25-34 PG Mean Corpuscular Hemoglobin Concent 31 L 32-36 G/DL Red Cell Distribution Width 16.7 H 10.0-14.5 % Platelet Count 174 130-400 10^3/uL Mean Platelet Volume 11.0 H 7.4-10.4 FL Neutrophils (%) (Auto) 86 H 42-75 % Lymphocytes (%) (Auto) 8 L 12-44 % Monocytes (%) (Auto) 7 0-12 % Eosinophils (%) (Auto) 0 0-10 % Basophils (%) (Auto) 0 0-10 % Neutrophils # (Auto) 12.9 H 1.8-7.8 X 10^3 Lymphocytes # (Auto) 1.2 1.0-4.0 X 10^3 Monocytes # (Auto) 1.0 0.0-1.0 X 10^3 Eosinophils # (Auto) 0.0 0.0-0.3 10^3/uL Basophils # (Auto) 0.0 0.0-0.1 10^3/uL Sodium Level 142 135-145 MMOL/L Potassium Level 4.2 3.6-5.0 MMOL/L Chloride Level 108 H 98-107 MMOL/L Carbon Dioxide Level 23 21-32 MMOL/L Anion Gap 11 5-14 MMOL/L Blood Urea Nitrogen 14 7-18 MG/DL Creatinine 0.85 0.60-1.30 MG/DL Estimat Glomerular Filtration Rate > 60 BUN/Creatinine Ratio 16 Glucose Level 167 H 70-105 MG/DL Calcium Level 8.5 8.5-10.1 MG/DL Corrected Calcium 9.3 8.5-10.1 MG/DL Total Bilirubin 0.7 0.1-1.0 MG/DL Aspartate Amino Transf (AST/SGOT) 18 5-34 U/L Alanine Aminotransferase (ALT/SGPT) 17 0-55 U/L Alkaline Phosphatase 72 40-136 U/L Total Protein 6.2 L 6.4-8.2 GM/DL Albumin 3.0 L 3.2-4.5 GM/DL RLE--incision clean and dry. fracture blister distal to incision. lower leg erythematous. Neg Josefina's s/p RTKA with distal cellulitis. Not surprising, considering venous insufficiency history continue PT/OT change abx to Ancef. If no response within 48 hours, will switch to Bactrim/Doxycycline Final Diagnosis no complaints Vital Signs Date Time Temp Pulse Resp B/P (MAP) Pulse Ox O2 Delivery O2 Flow Rate FiO2 01/21/19 05:16 36.8 70 16 171/83 (112) 95 Room Air 01/20/19 20:20 Room Air 01/20/19 17:18 36.5 79 18 165/84 (111) 96 Room Air 01/20/19 08:33 Room Air I & O 01/21/19 07:00 Intake Total 990 ml Output Total 1500 ml Balance -510 ml Laboratory Tests Test 01/21/19 04:49 Range/Units White Blood Count 11.8 H 4.3-11.0 10^3/uL Red Blood Count 4.37 4.35-5.85 10^6/uL Hemoglobin 11.3 L 13.3-17.7 G/DL Hematocrit 37 L 40-54 % Mean Corpuscular Volume 85 80-99 FL Mean Corpuscular Hemoglobin 26 25-34 PG Mean Corpuscular Hemoglobin Concent 30 L 32-36 G/DL Red Cell Distribution Width 17.6 H 10.0-14.5 % Platelet Count 295 130-400 10^3/uL Mean Platelet Volume 10.1 7.4-10.4 FL Neutrophils (%) (Auto) 79 H 42-75 % Lymphocytes (%) (Auto) 12 12-44 % Monocytes (%) (Auto) 9 0-12 % Eosinophils (%) (Auto) 0 0-10 % Basophils (%) (Auto) 0 0-10 % Neutrophils # (Auto) 9.2 H 1.8-7.8 X 10^3 Lymphocytes # (Auto) 1.4 1.0-4.0 X 10^3 Monocytes # (Auto) 1.0 0.0-1.0 X 10^3 Eosinophils # (Auto) 0.0 0.0-0.3 10^3/uL Basophils # (Auto) 0.0 0.0-0.1 10^3/uL Sodium Level 141 135-145 MMOL/L Potassium Level 3.0 L 3.6-5.0 MMOL/L Chloride Level 104 98-107 MMOL/L Carbon Dioxide Level 28 21-32 MMOL/L Anion Gap 9 5-14 MMOL/L Blood Urea Nitrogen 16 7-18 MG/DL Creatinine 0.82 0.60-1.30 MG/DL Estimat Glomerular Filtration Rate > 60 BUN/Creatinine Ratio 20 Glucose Level 172 H 70-105 MG/DL Calcium Level 8.4 L 8.5-10.1 MG/DL Corrected Calcium 9.0 8.5-10.1 MG/DL Total Bilirubin 0.6 0.1-1.0 MG/DL Aspartate Amino Transf (AST/SGOT) 19 5-34 U/L Alanine Aminotransferase (ALT/SGPT) 9 0-55 U/L Alkaline Phosphatase 69 40-136 U/L Total Protein 6.4 6.4-8.2 GM/DL Albumin 3.2 3.2-4.5 GM/DL RLE--incision clean and dry without erythema distal erythema nearly resolved s/p RTKA with resolving distal cellulitis continue pT/OT MARCO DIETZ MD Jan 21, 2019 07:29
--- NOTE | 2019-01-21 08:45 | Physician Query Clarification ---
PQ-Present on Admission Admission/Discharge Admission Date: Jan 16, 2019 at 12:15 Discharge Date: Question: Post op wound cellulitis was documented in your January 18 progress note. Can you specify if this condition was present on admission? Please document a response in Progress Note or Discharge Summary. 1. Yes - Condition was present at the time of inpatient admission. 2. No - Condition was not present at the time of inpatient admission and it developed during the inpatient stay. 3. W - Provider is unable to clinically determine whether condition was present on admission or not. 4. Other [please specify] PHYSICIAN RESPONSE Condition was Present on Admit: Other, specify below (post op cellulitis occured POST OP not before) Please remember a lack of response to the above will prompt a phone page by CDI/Coding staff. In responding to this query, please exercise your independent professional judgment. The purpose of this communication is to more accurately reflect the c omplexity of your patients condition. The fact that a question is asked does not imply that any particular answer is desired or expected. Thank you for your timely response to this clarification. Requestors name: Wendy Newton CCS,CCDS Phone # [phone] THIS PHYSICIAN QUERY FORM IS A PERMANENT PART OF THE MEDICAL RECORD WENDY NEWTON Jan 21, 2019 08:45 DIYA ELDER DO Jan 21, 2019 11:09
--- NOTE | 2019-01-21 08:49 | PM&R Progress Note ---
Subjective HPI/CC On Admission Date Seen by Provider: Jan 21, 2019 Time Seen by Provider: 09:00 Chief complaint: Debility following right total knee replacement History of present illness: This is a 73-year-old white male clinic patient of [facility] and Dr. Fairbanks cardiology who maintains pacemaker who presents to inpatient rehabilitation following severe debility after her right total knee replacement. He had an uncomplicated surgery and is currently in need of aggressive rehabilitation in order return home with his to lessen the burden on his caregiver and improved success when discharged home with improved ambulation fall risk prevention. He had an uneventful hospital course following the surgery and is currently doing well although details are minimal considering his history of dementia but he is able to participate in therapy and obtain benefit from the aggressive inpatient rehabilitation protocol. At this current time patient denies any bowel movement since he arrived at the hospital for his surgery but he is urinating well with good flow and no retention since surgery. Subjective/Events-last exam Potassium 3.0 so I did start him on supplement Soap suds enema will be given since no BM for the past 4 days Changing Ancef IV antibiotics to Keflex po Blood sugar is 160 and 172 fasting, will initiate Accu check BID with sliding scale A DC planned for Saturday Check meds and labs Conferred with RN Reviewed therapy notes Review of Systems General: Fatigue Musculoskeletal: leg pain Neurological: Confusion Objective Exam Vital Signs Vital Signs Date Time Temp Pulse Resp B/P (MAP) Pulse Ox O2 Delivery O2 Flow Rate FiO2 01/21/19 17:21 37.0 71 20 181/78 (112) 98 Room Air 01/19/19 06:25 2.00 Capillary Refill : General Appearance: No Apparent Distress, WD/WN, Chronically ill, Obese, Other (flushed) HEENT: PERRL/EOMI, Normal ENT Inspection, Pharynx Normal, Moist Mucous Membranes Neck: Full Range of Motion, Normal Inspection, Non Tender, Supple Respiratory: Chest Non Tender, Lungs Clear, Normal Breath Sounds, No Accessory Muscle Use, No Respiratory Distress Cardiovascular: Regular Rate, Rhythm, No Edema, No Gallop, No JVD, No Murmur Gastrointestinal: Normal Bowel Sounds, No Organomegaly, No Pulsatile Mass, Non Tender, Soft Back: Normal Inspection, No CVA Tenderness, No Vertebral Tenderness Extremity: Normal Capillary Refill, Normal Inspection, Normal Range of Motion (except for right knee postop), Non Tender, No Calf Tenderness, No Pedal Edema Neurologic/Psychiatric: Alert, Oriented x3, No Motor/Sensory Deficits, Normal Mood/Affect, Disoriented (subtle) Skin: Normal Color, Warm/Dry, Other (redness around surgical site) Lymphatic: No Adenopathy Results/Procedures Lab Laboratory Tests 01/21/19 04:49 Patient resulted labs reviewed. FIM Transfers Therapy Code Descriptions/Definitions Functional [place] Measure: 0=Not Assessed/NA 4=Minimal Assistance 1=Total Assistance 5=Supervision or Setup 2=Maximal Assistance 6=Modified [place] 3=Moderate Assistance 7=Complete [place] Therapy Quality Codes: 6 Independent with activity with or without an assistive device 5 Patient requires set up or clean up by helper. Patient completes activity by themselves 4 Supervision or touching assist (CGA). [place] provide cues , steadying assist 3 The helper provides less than half the effort to complete the activity 2 The helper provides more than half the effort to complete the activity 1 Dependent. The helper does all the effort to complete an activity 7 Patient refused to complete or attempt activity 9 The patient did not perform the activity before the current illness or injury 88 Not attempted due to Medical conditions or safety concerns Transfers (B, C, W/C) (FIM): 5 Scootin Rollin Roll Left to Right (QC): 2 Supine to/from Sit: 5 Sit to/from Stand: 5 Sit to Lying (QC): 2 Sit to Stand (QC): 3 Chair/Cjz-gt-Emsiu Xfer(QC): 3 Bed to/from Chair: 5 Car Transfer (QC): 3 Gait Training Does the Patient Walk?: Yes Gait (FIM): 2 Distance: 120'x2 Walk 10 feet (QC): 4 Gait Level of Assist: 5 Gait Persons Needed: 1 Gait Assistive Device: FWW Wheelchair Training Does the Pt Use a Wheelchair?: Yes Wheelchair (FIM): 1 Stair Training Stairs (FIM): 88 Mental Status/Objective Comprehension: 7 Expression: 7 Social Interaction: 7 Problem Solvin Memory: 6 ADL-Treatment Feedin (by report) Eating (QC): 5 Groomin (Pt able to brush teeth and hair sitting in chair at sink. ) Oral Hygiene (QC): 6 Bathin (Pt required SBA while standing to wash buttocks and jean area. Pt able to wash, rinse by self. Pt needed verbal cues to dry legs. ) Bathing Location: L Arm, R Arm, L Upper Leg, R Upper Leg, L Lower Leg (including foot), R Lower Leg (including foot), Chest, Abdomen, Buttocks, Perineal Area Shower/Bathe Self (QC): 4 Upper Extremity Dressin (Pt able to don/doff shirt by self. Set up.) Upper Body Dressing (QC): 5 Lower Extremity Dressin (Pt able to doff underwear, shorts, and socks by self. SBA assist while standing for safety concern. Pt required assist to don brief over R heel. Pt able to don brief over knee. Pt requires FWW to stand to hike briefs and pants over waist. Pt required assist to adjust briefs and pants in backside. ) Lower Body Dressing (QC): 3 On/Off Footwear (QC): 6 (Pt able to don R shoes by self. Pt required AE to don L shoe. ) Toiletin (urinal only) Toileting Hygiene (QC): 4 Toilet/Commode Transfer: 2 Shower: 5 (Pt requires FWW, shower bench, and grab bar. SBA assist while pt performs stand to sit due to safety concern. ) Assessment/Plan Assessment and Plan Assess & Plan/Chief Complaint Plan: Inpatient rehabilitation protocol Intensify bowel regimen until constipation resolved Home meds DVT prophylaxis Monitor labs Monitor blood pressure PO abx (1) Status post right knee replacement Status: Acute (2) Dementia Status: Chronic Qualifiers: Dementia type: unspecified type Dementia behavioral disturbance: without behavioral disturbance Qualified Codes: F03.90 - Unspecified dementia without behavioral disturbance (3) Cellulitis, wound, post-operative Status: Acute (4) CAD (coronary artery disease), [place] coronary artery Status: Chronic Qualifiers: [place] vs. transplanted heart: [place] heart Associated angina: without angina Qualified Codes: I25.10 - Atherosclerotic heart disease of [place] coronary artery without angina pectoris (5) Concentric left ventricular hypertrophy Status: Chronic (6) Grade II diastolic dysfunction Status: Chronic (7) 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 (8) Chronic GERD Status: Chronic (9) Obesity (BMI 30-39.9) Status: Chronic (10) DVT prophylaxis Status: Acute (11) Hearing difficulty Status: Chronic (12) Osteoarthritis of right knee Status: Chronic (13) History of stroke Status: Chronic (14) Dyslipidemia Status: Chronic (15) Major depression, recurrent Status: Chronic (16) Pacemaker Status: Chronic (17) Chronic fatigue Status: Chronic (18) Sleep apnea Status: Chronic (19) Type II diabetes mellitus with complication Status: Chronic (20) Hypertension Status: Chronic (21) Hypoxia Status: Chronic (22) Arthritis Status: Chronic (23) Anxiety Status: Chronic (24) Insomnia Status: Chronic Qualifiers: Insomnia type: primary Qualified Codes: F51.01 - 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 (25) Unable to ambulate Status: Acute (26) Fever Status: Acute Qualifiers: Fever type: unspecified Qualified Codes: R50.9 - Fever, unspecified (27) Frequent falls Status: Acute DIYA ELDER DO Jan 21, 2019 08:49
--- NOTE | 2019-01-21 09:04 | Physical Therapy Daily Note ---
PT Daily Note-Current Subjective Pt. denies pain, states she feels he has made good progress and has great assist at home . Pain Location: No Pain Reported Mental Status Patient Orientation: Person, Place, Time, Situation hard of hearing Transfers Therapy Code Descriptions/Definitions Functional [place] Measure: 0=Not Assessed/NA 4=Minimal Assistance 1=Total Assistance 5=Supervision or Setup 2=Maximal Assistance 6=Modified [place] 3=Moderate Assistance 7=Complete [place] Therapy Quality Codes: 6 Independent with activity with or without an assistive device 5 Patient requires set up or clean up by helper. Patient completes activity by themselves 4 Supervision or touching assist (CGA). [place] provide cues , steadying assist 3 The helper provides less than half the effort to complete the activity 2 The helper provides more than half the effort to complete the activity 1 Dependent. The helper does all the effort to complete an activity 7 Patient refused to complete or attempt activity 9 The patient did not perform the activity before the current illness or injury 88 Not attempted due to Medical conditions or safety concerns Transfers (B, C, W/C) (FIM): 5 Scootin Rollin Supine to/from Sit: 5 Sit to/from Stand: 5 needs SBA and instruction for safe effective technique with all TRFs Weight Bearing Right Lower Extremity: Right Weight Bearing/Tolerated Gait Training Does the Patient Walk?: Yes Gait (FIM): 4 Distance (FIM): 3=150 ft (100,150) Gait Level of Assist: 4 Gait Persons Needed: 1 Gait Assistive Device: FWW antalgia, flexed at trunk, uneven step length Stair Training Stair Training: Handrails/: 2 handrails Stairs (FIM): 2 #of Steps: 4 Stairs: Pattern: Step to Level of Assist: 4 instruction in sequence and to clear step descending Exercises Supine Ex: Ankle pumps, Quad Set, Rolling, Glut sets, Heel Slides, Short Arc Quads, Scooting, Straight leg raise, Hip abd/add Supine Reps: 15 Seated Therapy Exercises: Ankle pumps, Sit to stand, Long arc quads, Hip flexion Seated Reps: 15 NuStep Minutes: 12 NuStep Workload: 5 Treatments seated reciprocal U&L extremity exercise emphasizing knee flexin and extenion Assessment Current Status: Good Progress PT Short Term Goals Short Term Goals Time Frame: Jan 23, 2019 Gait (FIM): 1 Gait Distance Comment: 20' Gait Level of Assist: 4 Gait Assistive Device: FWW PT Longterm Goals Pasteurizing Machine Operator Goals PT Pasteurizing Machine Operator Goals Time Frame: Feb 06, 2019 Transfers (B,C,W/C) (FIM): 5 Sit to Lying (QC): 4 Lying-Sitting on Side/Bed(QC): 4 Sit to Stand (QC): 4 Rollin Roll Left to Right (QC): 4 Chair/Eer-ol-Arezo Xfer(QC): 4 Car Transfer (QC): 4 Gait (FIM): 2 Distance: 50' Walk 10 feet (QC): 4 Walk 10ft-Uneven Surface(QC): 4 Walk 50ft with 2 Turns (QC): 4 Gait Level of Assist: 5 Gait Assistive Device: FWW Stairs (FIM): 2 # of Steps: 4 1 Step (curb) (QC): 3 4 Steps (QC): 3 PT Plan Treatment/Plan Treatment Plan: Continue Plan of Care Treatment Plan: Bed Mobility, Concurrent Therapy, Education, Functional Activity Nilda, Functional Strength, Group Therapy, Gait, Safety, Therapeutic Exercise, Transfers Treatment Duration: Feb 06, 2019 Frequency: At least 5 of 7 days/Wk (IRF) Estimated Hrs Per Day: 1.5 hours per day Patient and/or Family Agrees t: Yes Safety Risks/Education Patient Education: Gait Training, Transfer Techniques, Steps, Correct Positioning, Disease Process, Safety Issues Teaching Recipient: Patient Teaching Methods: Demonstration, Discussion Response to Teaching: Verbalize Understanding, Return Demonstration, Reinforcement Needed Time/GCodes Time In: 800 Time Out: 900 Total Billed Treatment Time: 60 Total Billed Treatment 1,EX30m,FA10m,GT20m MITCH 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
[2019-01-21] MEDS ORDERED: BISACODYL 10 MG SUPP (DULCOLAX) PR PRN (09:45)
[2019-01-21 10:13] VITALS: BP 159/91
[2019-01-21] MEDS: AMIODARONE 200 MG (CORDARONE) TAB PO SCH ×2 (10:15→20:25)
[2019-01-21] MEDS: ASPIRIN E.C. 81 MG (ECOTRIN) TAB PO SCH (10:15)
[2019-01-21] MEDS: ENALAPRIL 5 MG (VASOTEC) TAB PO SCH ×2 (10:16→20:25)
[2019-01-21] MEDS: oxyCODONE/APAP 5/325MG (PERCOCET 5) TABLET PO PRN (10:16)
[2019-01-21] MEDS: DOCUSATE SODIUM 100 MG (COLACE) CAP PO PRN (10:16)
[2019-01-21] MEDS: CEPHALEXIN 250 MG (KEFLEX) CAP PO SCH ×2 (10:16→18:15)
[2019-01-21] MEDS: SENNA W/DOCUSATE (SENOKOT S) TABLET PO SCH ×2 (10:16→21:25)
[2019-01-21] MEDS: clonazePAM 1 MG (KlonoPIN) TAB PO SCH ×2 (10:16→20:25)
[2019-01-21] MEDS: MICONAZOLE 2% POWDER (DESENEX AF) 90 GM TOP SCH ×2 (10:18→21:25)
[2019-01-21] MEDS: KCL 10 MEQ TAB (MICRO K) PO SCH ×2 (10:18→18:15)
[2019-01-21] MEDS: NYSTATIN CREAM (MYCOSTATIN) 30 GM TUBE TP SCH ×2 (10:18→20:26)
--- NOTE | 2019-01-21 10:38 | Occupational Ther Daily Note ---
OT Current Status-Daily Note Subjective OT took over care from PT in therapy gym. Pt agrees to therapy. No c/o pain at this time. Mental Status/Objective Patient Orientation: Person, Place, Time, Situation Therapy Code Descriptions/Definitions Functional [place] Measure: 0=Not Assessed/NA 4=Minimal Assistance 1=Total Assistance 5=Supervision or Setup 2=Maximal Assistance 6=Modified [place] 3=Moderate Assistance 7=Complete [place] ADL-Treatment Pt declined shower today. Pt performed sponge bath at sink. Nrsg came in room during ADLs to give pt medicine and bandage change. Pt transferred to bed. Call light and phone in reach. Pts needs met. Therapy Code Descriptions/Definitions Functional [place] Measure: 0=Not Assessed/NA 4=Minimal Assistance 1=Total Assistance 5=Supervision or Setup 2=Maximal Assistance 6=Modified [place] 3=Moderate Assistance 7=Complete [place] Therapy Quality Codes: 6 Independent with activity with or without an assistive device 5 Patient requires set up or clean up by helper. Patient completes activity by themselves 4 Supervision or touching assist (CGA). [place] provide cues , steadying assist 3 The helper provides less than half the effort to complete the activity 2 The helper provides more than half the effort to complete the activity 1 Dependent. The helper does all the effort to complete an activity 7 Patient refused to complete or attempt activity 9 The patient did not perform the activity before the current illness or injury 88 Not attempted due to Medical conditions or safety concerns Grooming (FIM): 6 (Pt able to brush teeth sitting at sink. Pt able to brush hair sitting in chair in room. ) Oral Hygiene (QC): 6 Bathing (FIM): 5 (Pt performed sponge bath at sink. Pt needed VC's to wash upper and lower body. Pt washed face w/o cueing. Pt able to dry self. ) Bathing Location: L Arm, R Arm, L Upper Leg, R Upper Leg, L Lower Leg (including foot), R Lower Leg (including foot), Chest, Abdomen, Perineal Area Shower/Bathe Self (QC): 5 Upper Body (FIM): 5 (Pt able to don/doff shirt by self. Set up. ) Upper Body Dressing (QC): 5 Lower Body Dressing (FIM): 4 (Pt able to doff underwear and pants by self sitti ng in chair. Pt able to don underwear and pants over knees. CGA assist while pt is standing due to safety concern. Pt requires AE to don socks. ) Lower Body Dressing (QC): 4 On/Off Footwear (QC): 4 Transfers (B, C, W/C) (FIM): 4 (Pt requires Min Assist lifting while pt sits to stand. ) Other Treatment Pt participated in 15 minute arm bike exercise to increase strength for daily functional tasks. Pt required 3 rest breaks due to decreased activity tolerance. Pt participated in fine motor activity by unscrewing and screwing nuts and bolts with 1lb wrist weights to increase finger strength for daily functional activity tasks. Half way through activity OT took weights off of pts wrist due to pts decrease in activity tolerance. Pt ambulated back to room to perform ADLs. OT Short Term Goals Short Term Goals Time Frame: Jan 23, 2019 Bathing(FIM): 4 Upper Body Dressing(FIM): 5 Lower Body Dressing(FIM): 3 Toileting(FIM): 3 Toilet/Commode Transfer(FIM): 4 Shower Transfer(FIM): 4 Additional Short Term Goals: 1-Demonstrate ADL Tasks, 2-Verbalize Understanding, 3-ImproveStrength/Nilda 1=Demonstrate adherence to instructed precautions during ADL tasks. 2=Patient will verbalize/demonstrate understanding of assistive devices/modifications for ADL. 3=Patient will improve strength/tolerance for activity to enable patient to perform ADL's. OT [facility] Goals [facility] Goals Time Frame: Feb 06, 2019 Eating (FIM): 6 Eating (QC): 6 Groomin Oral Hygiene (QC): 6 Bathing(FIM): 6 Shower/Bathe Self (QC): 4 Upper Body Dressing(FIM): 6 Upper Body Dressing (QC): 5 Lower Body Dressing(FIM): 6 Lower Body Dressing (QC): 5 On/Off Footwear (QC): 5 Toileting(FIM): 6 Toileting Hygiene (QC): 6 Toilet/Commode Transfer(FIM): 6 Toilet/Commode Transfer (QC): 6 Shower Transfer(FIM): 5 Additional Goals: 1-Demonstrate ADL Tasks, 2-Verbalize Understanding, 3-Imp roveStrength/Nilda 1=Demonstrate adherence to instructed precautions during ADL tasks. 2=Patient will verbalize/demonstrate understanding of assistive devices/modifications for ADL. 3=Patient will improve strength/tolerance for activity to enable patient to perform ADL's. OT Education/Plan Problem List/Assessment Assessment: Decreased UE Strength Pt s/p right TKA with decreased mobility, strength, activity tolerance, and ADL functioning. Pt to benefit from skilled OT intervention for ADL training, transfers, strengthening, and home safety education to increase level of independence and allow safe discharge plan. Discharge Recommendations Plan/Recommendations: Continue POC Treatment Plan/Plan of Care Patient would benefit from OT for education, treatment and training to promote independence in ADL's, mobility, safety and/or upper extremity function for ADL's. Plan of Care: ADL Retraining, Functional Mobility, Group Exercise/Act as Ind, UE Funct Exercise/Act Treatment Duration: Feb 06, 2019 Frequency: At least 5 of 7 days/Wk (IRF) Estimated Hrs Per Day: 1.5 hours per day Rehab Potential: Fair Time/GCodes Start Time: 09:00 Stop Time: 10:30 Total Time Billed (hr/min): 90 Billed Treatment Time 1 visit- EX 2 (30 min) ADL 4 (60 min) ANASTACIA ERICKSON Jan 21, 2019 10:38
[2019-01-21] MEDS: inSUlin ASPART (NovoLOG) 1 UNIT/0.01 ML (CHARGE PER UNIT) SC SCH ×2 (11:59→16:39)
--- NOTE | 2019-01-21 13:46 | Physical Therapy Daily Note ---
PT Daily Note-Current Subjective Pt. agrees to Rx. States he is very uncomfortable using BSC in his room, "its too small I cant go on that" Pain Location: No Pain Reported Transfers Therapy Code Descriptions/Definitions Functional [place] Measure: 0=Not Assessed/NA 4=Minimal Assistance 1=Total Assistance 5=Supervision or Setup 2=Maximal Assistance 6=Modified [place] 3=Moderate Assistance 7=Complete [place] Therapy Quality Codes: 6 Independent with activity with or without an assistive device 5 Patient requires set up or clean up by helper. Patient completes activity by themselves 4 Supervision or touching assist (CGA). [place] provide cues , steadying assist 3 The helper provides less than half the effort to complete the activity 2 The helper provides more than half the effort to complete the activity 1 Dependent. The helper does all the effort to complete an activity 7 Patient refused to complete or attempt activity 9 The patient did not perform the activity before the current illness or injury 88 Not attempted due to Medical conditions or safety concerns sup to sit and sit to stand CGA and instruction for most efficient technique Weight Bearing Right Lower Extremity: Right Weight Bearing/Tolerated Gait Training Gait Assistive Device: FWW 160x2, slow with emphasis on even step length and flow, ptl continues heavy wt bearing on FWW with flexed trunk Exercises Supine Ex: Ankle pumps, Quad Set, Heel Slides, Short Arc Quads, Straight leg raise, Hip abd/add Supine Reps: 15 Treatments assisted pt. to use regular toilet in room, more comfortable Assessment Current Status: Good Progress PT Short Term Goals Short Term Goals Time Frame: Jan 23, 2019 Gait (FIM): 1 Gait Distance Comment: 20' Gait Level of Assist: 4 Gait Assistive Device: FWW PT Glass Blowing Instructor Goals Snf Goals PT Glass Blowing Instructor Goals Time Frame: Feb 06, 2019 Transfers (B,C,W/C) (FIM): 5 Sit to Lying (QC): 4 Lying-Sitting on Side/Bed(QC): 4 Sit to Stand (QC): 4 Rollin Roll Left to Right (QC): 4 Chair/Ond-vs-Bcveq Xfer(QC): 4 Car Transfer (QC): 4 Gait (FIM): 2 Distance: 50' Walk 10 feet (QC): 4 Walk 10ft-Uneven Surface(QC): 4 Walk 50ft with 2 Turns (QC): 4 Gait Level of Assist: 5 Gait Assistive Device: FWW Stairs (FIM): 2 # of Steps: 4 1 Step (curb) (QC): 3 4 Steps (QC): 3 PT Plan Treatment/Plan Treatment Plan: Continue Plan of Care Treatment Plan: Bed Mobility, Concurrent Therapy, Education, Functional Activity Nilda, Functional Strength, Group Therapy, Gait, Safety, Therapeutic Exercise, Transfers Treatment Duration: Feb 06, 2019 Frequency: At least 5 of 7 days/Wk (IRF) Estimated Hrs Per Day: 1.5 hours per day Patient and/or Family Agrees t: Yes Safety Risks/Education Patient Education: Gait Training, Transfer Techniques, Correct Positioning, Disease Process, Safety Issues Teaching Recipient: Patient Teaching Methods: Demonstration, Discussion Response to Teaching: Verbalize Understanding, Return Demonstration, Rein forcement Needed Time/GCodes Time In: 1305 Time Out: 1335 Total Billed Treatment Time: 30 Total Billed Treatment 1,Ex15m,GT15m MTICH RAGLAND STONE PROCESSING MACHINE OPERATOR Jan 21, 2019 13:46
--- NOTE | 2019-01-21 14:19 | NUR ---
Weekly Team Conference Reviewed weekly team conference with patient. Team is recommending discharge home with spouse on 01/24/19. Team is also recommending [facility] RN, PT and OT. Recommended equipment: sock aide, cushion for recliner and long shoe horn. Discussed these recommendations with the patient and he verbalized understanding and is in agreement with discharge home on 01/24/19. Patient asked that I phone his spouse and inform her of the above. Attempted to phone spouse but there was no answer; left a message for her to return my phone call to discuss the weekly team conference. [facility] choice form reviewed with patient and his preferred provider his [facility].
--- NOTE | 2019-01-21 15:30 | NUR ---
Patient's returned phone call regarding weekly team conference. Patient's states she was told by PT today that patient would remain on ARU for another week. This marketing underwriter will clarify with PT to determine if patient is safe for discharge on 01/24/19 as discussed in team meeting or requires additional time on the rehab unit.
[2019-01-21 17:21] VITALS: BP 181/78
[2019-01-21] MEDS: MELATONIN 3 MG TABLET PO PRN (20:25)
[2019-01-22] MEDS: oxyCODONE/APAP 5/325MG (PERCOCET 5) TABLET PO PRN ×2 (00:49→06:33)
[2019-01-22] MEDS: CEPHALEXIN 250 MG (KEFLEX) CAP PO SCH ×4 (00:51→17:57)
[2019-01-22 05:26] VITALS: BP 163/87
[2019-01-22] MEDS: inSUlin ASPART (NovoLOG) 1 UNIT/0.01 ML (CHARGE PER UNIT) SC SCH ×2 (05:40→17:58)
[2019-01-22] MEDS: MULTIVIT W/MINERALS TAB (THERAGRAN M) PO SCH (06:32)
[2019-01-22] MEDS: KCL 10 MEQ TAB (MICRO K) PO SCH ×2 (06:33→17:57)
[2019-01-22] MEDS: ENOXAPARIN 30 MG/0.3 ML (LOVENOX) SYR SC SCH ×2 (06:34→17:57)
[2019-01-22] MEDS: clonazePAM 1 MG (KlonoPIN) TAB PO SCH ×2 (09:46→20:17)
[2019-01-22] MEDS: AMIODARONE 200 MG (CORDARONE) TAB PO SCH ×2 (09:46→20:17)
[2019-01-22] MEDS: MICONAZOLE 2% POWDER (DESENEX AF) 90 GM TOP SCH ×2 (09:46→20:18)
[2019-01-22] MEDS: ASPIRIN E.C. 81 MG (ECOTRIN) TAB PO SCH (09:46)
[2019-01-22] MEDS: SENNA W/DOCUSATE (SENOKOT S) TABLET PO SCH ×2 (09:46→21:00)
[2019-01-22] MEDS: NYSTATIN CREAM (MYCOSTATIN) 30 GM TUBE TP SCH ×2 (09:46→20:18)
[2019-01-22] MEDS: ENALAPRIL 5 MG (VASOTEC) TAB PO SCH ×2 (09:46→20:17)
--- NOTE | 2019-01-22 10:57 | Physical Therapy Daily Note ---
PT Daily Note-Current Subjective Pt laying Supine in bed upon arrival. Pt agrees to PT. Pain Numeric Pain Scale: 3 Location: Right Location Body Site: Knee Pain Description: Ache, Tightness Mental Status Patient Orientation: Person, Place, Time, Situation Transfers Therapy Code Descriptions/Definitions Functional [place] Measure: 0=Not Assessed/NA 4=Minimal Assistance 1=Total Assistance 5=Supervision or Setup 2=Maximal Assistance 6=Modified [place] 3=Moderate Assistance 7=Complete [place] Therapy Quality Codes: 6 Independent with activity with or without an assistive device 5 Patient requires set up or clean up by helper. Patient completes activity by themselves 4 Supervision or touching assist (CGA). [place] provide cues , steadying assist 3 The helper provides less than half the effort to complete the activity 2 The helper provides more than half the effort to complete the activity 1 Dependent. The helper does all the effort to complete an activity 7 Patient refused to complete or attempt activity 9 The patient did not perform the activity before the current illness or injury 88 Not attempted due to Medical conditions or safety concerns [place]in Supine to/from Sit: 5 Sit to/from Stand: 5 Sit to Lying (QC): 5 Sit to Stand (QC): 5 Weight Bearing Right Lower Extremity: Right Weight Bearing/Tolerated Gait Training Does the Patient Walk?: Yes Gait (FIM): 5 Distance (FIM): 3=150 ft Distance: 150' Walk 10 feet (QC): 5 Walk 50 ft with 2 Turns(QC): 5 Walk 150 ft (QC): 5 Gait Level of Assist: 5 Gait Persons Needed: 1 Gait Assistive Device: FWW Pt walks with antalgic gait pattern, slow haider but steady, no LOB. Wheelchair Training Does the Pt Use a Wheelchair?: No Stair Training Stair Training: Handrails/: 1 handrail #of Steps: 8 1 Step (curb) (QC): 4 4 Steps (QC): 4 Stairs: Pattern: Step to Level of Assist: 4 Pt completes first set of 4 steps using 1 handrail on R side & FWW on L side. This demonstrates is unsafe so PARTY SUPPLY SPECIALIST gives instruction on second set of 4 steps using R hand rail and L CITRIX ENGINEER. Exercises Supine Ex: Ankle pumps, Quad Set, Glut sets, Heel Slides, Straight leg raise, H ip abd/add Supine Reps: 15 NuStep Minutes: 15 NuStep Workload: 5 Treatments Pt transfers from Supine to EOB then to standing. Pt then ambulates in hallway using FWW. Pt uses NuStep for 15m at WL 5. Pt completes 2 sets of steps (see above) then completes Supine Ex. Pt returns to room at end of tx, resting EOB with all needs met, call light in hand. Assessment Current Status: Good Progress Pt sometimes needs encouragement to complete task more independently as pt can. PT Short Term Goals Short Term Goals Time Frame: Jan 23, 2019 Gait (FIM): 1 Gait Distance Comment: 20' Gait Level of Assist: 4 Gait Assistive Device: FWW PT Director Of Cardiology Goals Director Of Cardiology Goals PT Director Of Cardiology Goals Time Frame: Feb 06, 2019 Transfers (B,C,W/C) (FIM): 5 Sit to Lying (QC): 4 Lying-Sitting on Side/Bed(QC): 4 Sit to Stand (QC): 4 Rollin Roll Left to Right (QC): 4 Chair/Exo-vk-Spieh Xfer(QC): 4 Car Transfer (QC): 4 Gait (FIM): 2 Distance: 50' Walk 10 feet (QC): 4 Walk 10ft-Uneven Surface(QC): 4 Walk 50ft with 2 Turns (QC): 4 Gait Level of Assist: 5 Gait Assistive Device: FWW Stairs (FIM): 2 # of Steps: 4 1 Step (curb) (QC): 3 4 Steps (QC): 3 PT Plan Problem List Problem List: Activity Tolerance, Functional Strength Treatment/Plan Treatment Plan: Continue Plan of Care Treatment Plan: Bed Mobility, Concurrent Therapy, Education, Functional Activity Nilda, Functional Strength, Group Therapy, Gait, Safety, Therapeutic Exercise, Transfers Treatment Duration: Feb 06, 2019 Frequency: At least 5 of 7 days/Wk (IRF) Estimated Hrs Per Day: 1.5 hours per day Patient and/or Family Agrees t: Yes Safety Risks/Education Patient Education: Gait Training, Transfer Techniques, Steps, Correct Positioning, Safety Issues Teaching Recipient: Patient Teaching Methods: Discussion Response to Teaching: Verbalize Understanding Time/GCodes Time In: 815 Time Out: 915 Total Billed Treatment Time: 60 Total Billed Treatment 1, GT (15m), FA (15m) & EX x2 (30m) OSO BANGURA PARTY SUPPLY SPECIALIST Jan 22, 2019 10:57
--- NOTE | 2019-01-22 11:05 | Occupational Ther Daily Note ---
OT Current Status-Daily Note Subjective Pt alert laying in bed upon OT arrival. Pt agrees to therapy. No c/o pain. Mental Status/Objective Patient Orientation: Person Therapy Code Descriptions/Definitions Functional [place] Measure: 0=Not Assessed/NA 4=Minimal Assistance 1=Total Assistance 5=Supervision or Setup 2=Maximal Assistance 6=Modified [place] 3=Moderate Assistance 7=Complete [place] ADL-Treatment Therapy Code Descriptions/Definitions Functional [place] Measure: 0=Not Assessed/NA 4=Minimal Assistance 1=Total Assistance 5=Supervision or Setup 2=Maximal Assistance 6=Modified [place] 3=Moderate Assistance 7=Complete [place] Therapy Quality Codes: 6 Independent with activity with or without an assistive device 5 Patient requires set up or clean up by helper. Patient completes activity by themselves 4 Supervision or touching assist (CGA). [place] provide cues , steadying assist 3 The helper provides less than half the effort to complete the activity 2 The helper provides more than half the effort to complete the activity 1 Dependent. The helper does all the effort to complete an activity 7 Patient refused to complete or attempt activity 9 The patient did not perform the activity before the current illness or injury 88 Not attempted due to Medical conditions or safety concerns Grooming (FIM): 6 (Pt able to brush teeth and hair sitting in chair at sink. ) Oral Hygiene (QC): 6 Bathing (FIM): 5 (Pt completed sponge bath at sink sitting in chair. Pt required VC's to wash LE. Pt able to dry self. Set up. ) Bathing Location: L Arm, R Arm, L Upper Leg, R Upper Leg, L Lower Leg (including foot), R Lower Leg (including foot), Chest, Abdomen, Perineal Area Shower/Bathe Self (QC): 5 Upper Body (FIM): 5 (Pt able to don/doff shirt by self. Set up. ) Upper Body Dressing (QC): 5 Lower Body Dressing (FIM): 4 (Pt able to don/doff underwear and short by self. SBA assist while pt is standing due to safety concerns. Pt able to doff socks by self. Pt required AE to don socks. Pt able to don L shoe by self. Pt needed AE to don R shoe. Pt able to tie L shoe by self. Pt required assist to tie R shoe.) Lower Body Dressing (QC): 3 On/Off Footwear (QC): 3 Transfers (B, C, W/C) (FIM): 5 (Pt requires FWW. SBA while sit to stand due to safety concerns. ) Other Treatment Pt ambulated to therapy gym using FWW. Pt participated in arm bike exercise for duration 15 min at 25 watt resistance to increase UE strength for daily functional tasks. Pt ambulated back to room using FWW. Pt transferred to bed, call light and phone in reach, pts needs met. OT Short Term Goals Short Term Goals Time Frame: Jan 23, 2019 Bathing(FIM): 4 Upper Body Dressing(FIM): 5 Lower Body Dressing(FIM): 3 Toileting(FIM): 3 Toilet/Commode Transfer(FIM): 4 Shower Transfer(FIM): 4 Additional Short Term Goals: 1-Demonstrate ADL Tasks, 2-Verbalize Understanding, 3-ImproveStrength/Nilda 1=Demonstrate adherence to instructed precautions during ADL tasks. 2=Patient will verbalize/demonstrate understanding of assistive devices/modifications for ADL. 3=Patient will improve strength/tolerance for activity to enable patient to perform ADL's. OT Children'S Service Supervisor Goals Children'S Service Supervisor Goals Time Frame: Feb 06, 2019 Eating (FIM): 6 Eating (QC): 6 Groomin Oral Hygiene (QC): 6 Bathing(FIM): 6 Shower/Bathe Self (QC): 4 Upper Body Dressing(FIM): 6 Upper Body Dressing (QC): 5 Lower Body Dressing(FIM): 6 Lower Body Dressing (QC): 5 On/Off Footwear (QC): 5 Toileting(FIM): 6 Toileting Hygiene (QC): 6 Toilet/Commode Transfer(FIM): 6 Toilet/Commode Transfer (QC): 6 Shower Transfer(FIM): 5 Additional Goals: 1-Demonstrate ADL Tasks, 2-Verbalize Understanding, 3-ImproveStrength/Nilda 1=Demonstrate adherence to instructed precautions during ADL tasks. 2=Patient will verbalize/demonstrate understanding of assistive devices/modifications for ADL. 3=Patient will improve strength/tolerance for activity to enable patient to perform ADL's. OT Education/Plan Problem List/Assessment Assessment: Decreased UE Strength Pt s/p right TKA with decreased mobility, strength, activity tolerance, and ADL functioning. Pt to benefit from skilled OT intervention for ADL training, transfers, strengthening, and home safety education to increase level of independence and allow safe discharge plan. Discharge Recommendations Plan/Recommendations: Continue POC Treatment Plan/Plan of Care Patient would benefit from OT for education, treatment and training to promote independence in ADL's, mobility, safety and/or upper extremity function for ADL's. Plan of Care: ADL Retraining, Functional Mobility, Group Exercise/Act as Ind, UE Funct Exercise/Act Treatment Duration: Feb 06, 2019 Frequency: At least 5 of 7 days/Wk (IRF) Estimated Hrs Per Day: 1.5 hours per day Rehab Potential: Fair Time/GCodes Start Time: 09:30 Stop Time: 11:00 Total Time Billed (hr/min): 90 Billed Treatment Time 1 visit- ADL 5 (75 min) EX 1 (15 min) ANASTACIA ERICKSON Jan 22, 2019 11:05
--- NOTE | 2019-01-22 11:17 | NUR ---
Discussed weekly team conference with patient and his as she is visiting today. Reviewed team's recommendation for discharge home on 01/24/19. This worker discussed patient's progress and functional status with PT and OT earlier this morning. Both PT and OT feel patient is safe to discharge home on 01/24/19. Relayed this information to the patient and his . Both are in agreement for discharge date on 01/24/19. Patient's states she will not be available to pick him up on Saturday until approximately 1900. RN informed. Patient will have [facility] RN, PT and OT. Patient's had questions regarding staple removal and continuation of antibiotics. Notified RN. Patient and his have no further questions at this time. Addendum: 01/22/19 at 1316 by IRIS CULP RN Discussed recommendation for sock aide, long shoe horn and cushion for home recliner with patient and his . Patient's reports he does not need these items.
--- NOTE | 2019-01-22 12:09 | NUR ---
Referral faxed to [facility] for RN, PT and OT.
--- NOTE | 2019-01-22 12:54 | PM&R Progress Note ---
Subjective HPI/CC On Admission Date Seen by Provider: Jan 22, 2019 Time Seen by Provider: 09:00 Chief complaint: Debility following right total knee replacement History of present illness: This is a 73-year-old white male clinic patient of [facility] and Dr. Fairbanks cardiology who m aintains pacemaker who presents to inpatient rehabilitation following severe debility after her right total knee replacement. He had an uncomplicated surgery and is currently in need of aggressive rehabilitation in order return home with his to lessen the burden on his caregiver and improved success when discharged home with improved ambulation fall risk prevention. He had an uneventful hospital course following the surgery and is currently doing well although details are minimal considering his history of dementia but he is able to participate in therapy and obtain benefit from the aggressive inpatient rehabilitation protocol. At this current time patient denies any bowel movement since he arrived at the hospital for his surgery but he is urinating well with good flow and no retention since surgery. Subjective/Events-last exam Sugars are okay. 150 blood sugar this morning. Had a bowel movement without soap suds enema. Overall doing well. DC planned for Saturday Check meds and labs Conferred with RN Reviewed therapy notes Review of Systems General: Fatigue Objective Exam Vital Signs Vital Signs Date Time Temp Pulse Resp B/P (MAP) Pulse Ox O2 Delivery O2 Flow Rate FiO2 01/22/19 16:01 36.2 77 14 161/88 (112) 97 Room Air 01/19/19 06:25 2.00 Capillary Refill : Less Than 3 Seconds General Appearance: No Apparent Distress, WD/WN, Chronically ill, Obese, Other (flushed) HEENT: PERRL/EOMI, Normal ENT Inspection, Pharynx Normal, Moist Mucous Membranes Neck: Full Range of Motion, Normal Inspection, Non Tender, Supple Respiratory: Chest Non Tender, Lungs Clear, Normal Breath Sounds, No Accessory Muscle Use, No Respiratory Distress Cardiovascular: Regular Rate, Rhythm, No Edema, No Gallop, No JVD, No Murmur Gastrointestinal: Normal Bowel Sounds, No Organomegaly, No Pulsatile Mass, Non Tender, Soft Back: Normal Inspection, No CVA Tenderness, No Vertebral Tenderness Extremity: Normal Capillary Refill, Normal Inspection, Normal Range of Motion (except for right knee postop), Non Tender, No Calf Tenderness, No Pedal Edema Neurologic/Psychiatric: Alert, Oriented x3, No Motor/Sensory Deficits, Normal Mood/Affect, Disoriented (subtle) Skin: Normal Color, Warm/Dry, Other (redness around surgical site) Lymphatic: No Adenopathy Results/Procedures Lab Patient resulted labs reviewed. FIM Transfers Therapy Code Descriptions/Definitions Functional [place] Measure: 0=Not Assessed/NA 4=Minimal Assistance 1=Total Assistance 5=Supervision or Setup 2=Maximal Assistance 6=Modified [place] 3=Moderate Assistance 7=Complete [place] Therapy Quality Codes: 6 Independent with activity with or without an assistive device 5 Patient requires set up or clean up by helper. Patient completes activity by themselves 4 Supervision or touching assist (CGA). [place] provide cues , steadying assist 3 The helper provides less than half the effort to complete the activity 2 The helper provides more than half the effort to complete the activity 1 Dependent. The helper does all the effort to complete an activity 7 Patient refused to complete or attempt activity 9 The patient did not perform the activity before the current illness or injury 88 Not attempted due to Medical conditions or safety concerns Transfers (B, C, W/C) (FIM): 5 (Pt requires FWW. SBA while sit to stand due to safety concerns. ) Scootin Rollin Roll Left to Right (QC): 2 Supine to/from Sit: 5 Sit to/from Stand: 5 Sit to Lying (QC): 5 Sit to Stand (QC): 5 Chair/Vsb-ha-Ewdgu Xfer(QC): 3 Bed to/from Chair: 5 Car Transfer (QC): 3 Gait Training Does the Patient Walk?: Yes Gait (FIM): 5 Distance (FIM): 3=150 ft Distance: 150' Walk 10 feet (QC): 5 Walk 50 ft with 2 Turns(QC): 5 Walk 150 ft (QC): 5 Gait Level of Assist: 5 Gait Persons Needed: 1 Gait Assistive Device: FWW Wheelchair Training Does the Pt Use a Wheelchair?: No Wheelchair (FIM): 1 Stair Training Stair Training: Handrails/: 1 handrail Stairs (FIM): 2 #of Steps: 8 1 Step (curb) (QC): 4 4 Steps (QC): 4 Stairs: Pattern: Step to Level of Assist: 4 Mental Status/Objective Comprehension: 7 Expression: 7 Social Interaction: 7 Problem Solvin Memory: 6 ADL-Treatment Feedin (by report) Eating (QC): 5 Groomin (Pt able to brush teeth and hair sitting in chair at sink. ) Oral Hygiene (QC): 6 Bathin (Pt completed sponge bath at sink sitting in chair. Pt required VC's to wash LE. Pt able to dry self. Set up. ) Bathing Location: L Arm, R Arm, L Upper Leg, R Upper Leg, L Lower Leg (including foot), R Lower Leg (including foot), Chest, Abdomen, Perineal Area Shower/Bathe Self (QC): 5 Upper Extremity Dressin (Pt able to don/doff shirt by self. Set up. ) Upper Body Dressing (QC): 5 Lower Extremity Dressin (Pt able to don/doff underwear and short by self. SBA assist while pt is standing due to safety concerns. Pt able to doff socks by self. Pt required AE to don socks. Pt able to don L shoe by self. Pt needed AE to don R shoe. Pt able to tie L shoe by self. Pt required assist to tie R shoe.) Lower Body Dressing (QC): 3 On/Off Footwear (QC): 3 Toiletin (urinal only) Toileting Hygiene (QC): 4 Toilet/Commode Transfer: 2 Shower: 5 (Pt requires FWW, shower bench, and grab bar. SBA assist while pt performs stand to sit due to safety concern. ) Assessment/Plan Assessment and Plan Assess & Plan/Chief Complaint Plan: Inpatient rehabilitation protocol Intensify bowel regimen until constipation resolved Home meds DVT prophylaxis Monitor labs Monitor blood pressure PO abx until DC DC Sat (1) Status post right knee replacement Status: Acute (2) Dementia Status: Chronic Qualifiers: Dementia type: unspecified type Dementia behavioral disturbance: without behavioral disturbance Qualified Codes: F03.90 - Unspecified dementia without behavioral disturbance (3) Cellulitis, wound, post-operative Status: Acute (4) CAD (coronary artery disease), [place] coronary artery Status: Chronic Qualifiers: [place] vs. transplanted heart: [place] heart Associated angina: without angina Qualified Codes: I25.10 - Atherosclerotic heart disease of [place] coronary artery without angina pectoris (5) Concentric left ventricular hypertrophy Status: Chronic (6) Grade II diastolic dysfunction Status: Chronic (7) 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 (8) Chronic GERD Status: Chronic (9) Obesity (BMI 30-39.9) Status: Chronic (10) DVT prophylaxis Status: Acute (11) Hearing difficulty Status: Chronic (12) Osteoarthritis of right knee Status: Chronic (13) History of stroke Status: Chronic (14) Dyslipidemia Status: Chronic (15) Major depression, recurrent Status: Chronic (16) Pacemaker Status: Chronic (17) Chronic fatigue Status: Chronic (18) Sleep apnea Status: Chronic (19) Type II diabetes mellitus with complication Status: Chronic (20) Hypertension Status: Chronic (21) Hypoxia Status: Chronic (22) Arthritis Status: Chronic (23) Anxiety Status: Chronic (24) Insomnia Status: Chronic Qualifiers: Insomnia type: primary Qualified Codes: F51.01 - 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 (25) Unable to ambulate Status: Acute (26) Fever Status: Acute Qualifiers: Fever type: unspecified Qualified Codes: R50.9 - Fever, unspecified (27) Frequent falls Status: Acute DIYA ELDER DO Jan 22, 2019 12:54
--- NOTE | 2019-01-22 14:37 | Physical Therapy Daily Note ---
PT Daily Note-Current Subjective Pt laying Supine in bed upon arrival. Pt agrees to PT. Pain Numeric Pain Scale: 3 Location: Right Location Body Site: Knee Pain Description: Ache, Tightness Mental Status Patient Orientation: Person, Place, Time, Situation Transfers Therapy Code Descriptions/Definitions Functional [place] Measure: 0=Not Assessed/NA 4=Minimal Assistance 1=Total Assistance 5=Supervision or Setup 2=Maximal Assistance 6=Modified [place] 3=Moderate Assistance 7=Complete [place] Therapy Quality Codes: 6 Independent with activity with or without an assistive device 5 Patient requires set up or clean up by helper. Patient completes activity by themselves 4 Supervision or touching assist (CGA). [place] provide cues , steadying assist 3 The helper provides less than half the effort to complete the activity 2 The helper provides more than half the effort to complete the activity 1 Dependent. The helper does all the effort to complete an activity 7 Patient refused to complete or attempt activity 9 The patient did not perform the activity before the current illness or injury 88 Not attempted due to Medical conditions or safety concerns Scootin Supine to/from Sit: 5 Sit to/from Stand: 5 Sit to Stand (QC): 5 Weight Bearing Right Lower Extremity: Right Weight Bearing/Tolerated Exercises Supine Ex: Ankle pumps, Quad Set, Glut sets, Heel Slides, Straight leg raise, Hip abd/add Supine Reps: 15 Seated Therapy Exercises: Ankle pumps, Long arc quads, Hip flexion, Kicking activity Seated Reps: 15 Treatments Pt completes Supine Ex in bed with RB as needed. Pt then asks if he can change shorts for comfort. Pt transfers to standing at EOB dons/doffs shorts and completes Seated EX before returning to Supine in bed. Pt resting at end of tx with all needs met, call light in hand. Assessment Current Status: Good Progress Pt has improved with mobility & transfers in both safety and independence. PT Short Term Goals Short Term Goals Time Frame: Jan 23, 2019 Gait (FIM): 1 Gait Distance Comment: 20' Gait Level of Assist: 4 Gait Assistive Device: FWW PT Alf Goals Holiday Detector Operator Goals PT Holiday Detector Operator Goals Time Frame: Feb 06, 2019 Transfers (B,C,W/C) (FIM): 5 Sit to Lying (QC): 4 Lying-Sitting on Side/Bed(QC): 4 Sit to Stand (QC): 4 Rollin Roll Left to Right (QC): 4 Chair/Qws-hf-Vkkgy Xfer(QC): 4 Car Transfer (QC): 4 Gait (FIM): 2 Distance: 50' Walk 10 feet (QC): 4 Walk 10ft-Uneven Surface(QC): 4 Walk 50ft with 2 Turns (QC): 4 Gait Level of Assist: 5 Gait Assistive Device: FWW Stairs (FIM): 2 # of Steps: 4 1 Step (curb) (QC): 3 4 Steps (QC): 3 PT Plan Problem List Problem List: Activity Tolerance Treatment/Plan Treatment Plan: Continue Plan of Care Treatment Plan: Bed Mobility, Concurrent Therapy, Education, Functional Activity Nilda, Functional Strength, Group Therapy, Gait, Safety, Therapeutic Exercise, Transfers Treatment Duration: Feb 06, 2019 Frequency: At least 5 of 7 days/Wk (IRF) Estimated Hrs Per Day: 1.5 hours per day Patient and/or Family Agrees t: Yes Safety Risks/Education Patient Education: Transfer Techniques, Correct Positioning, Safety Issues Teaching Recipient: Patient Teaching Methods: Discussion Response to Teaching: Verbalize Understanding Time/GCodes Time In: 1400 Time Out: 1430 Total Billed Treatment Time: 30 Total Billed Treatment 1, FA (10m) & EX (20m) SOO BANGURA SALVAGE SUPERVISOR Jan 22, 2019 14:37
[2019-01-22 16:01] VITALS: BP 161/88
[2019-01-23] MEDS: CEPHALEXIN 250 MG (KEFLEX) CAP PO SCH ×4 (00:55→17:51)
[2019-01-23 05:24] VITALS: BP 178/88
[2019-01-23] MEDS: inSUlin ASPART (NovoLOG) 1 UNIT/0.01 ML (CHARGE PER UNIT) SC SCH ×2 (05:28→16:26)
[2019-01-23] MEDS: oxyCODONE/APAP 5/325MG (PERCOCET 5) TABLET PO PRN ×2 (06:38→21:13)
[2019-01-23] MEDS: ENOXAPARIN 30 MG/0.3 ML (LOVENOX) SYR SC SCH ×2 (06:38→17:59)
[2019-01-23] MEDS: MULTIVIT W/MINERALS TAB (THERAGRAN M) PO SCH (06:38)
[2019-01-23] MEDS: KCL 10 MEQ TAB (MICRO K) PO SCH ×2 (06:38→17:50)
[2019-01-23 08:17] VITALS: BP 171/100
[2019-01-23] MEDS: clonazePAM 1 MG (KlonoPIN) TAB PO SCH ×2 (08:18→21:12)
[2019-01-23] MEDS: AMIODARONE 200 MG (CORDARONE) TAB PO SCH ×2 (08:18→21:12)
[2019-01-23] MEDS: ASPIRIN E.C. 81 MG (ECOTRIN) TAB PO SCH (08:18)
[2019-01-23] MEDS: ENALAPRIL 5 MG (VASOTEC) TAB PO SCH ×2 (08:18→21:12)
[2019-01-23] MEDS: NYSTATIN CREAM (MYCOSTATIN) 30 GM TUBE TP SCH ×2 (08:20→21:13)
[2019-01-23] MEDS: MICONAZOLE 2% POWDER (DESENEX AF) 90 GM TOP SCH ×2 (08:20→21:13)
--- NOTE | 2019-01-23 09:39 | Occupational Ther Daily Note ---
OT Current Status-Daily Note Subjective Pt alert sitting in chair in chair. Nrsg in room. Pt agrees to therapy. Mental Status/Objective Patient Orientation: Person Therapy Code Descriptions/Definitions Functional [place] Measure: 0=Not Assessed/NA 4=Minimal Assistance 1=Total Assistance 5=Supervision or Setup 2=Maximal Assistance 6=Modified [place] 3=Moderate Assistance 7=Complete [place] ADL-Treatment Nrsg in room to change bandages after shower. After therapy, pt lying in bed with call light/phone in reach. All needs met in room. Therapy Code Descriptions/Definitions Functional [place] Measure: 0=Not Assessed/NA 4=Minimal Assistance 1=Total Assistance 5=Supervision or Setup 2=Maximal Assistance 6=Modified [place] 3=Moderate Assistance 7=Complete [place] Therapy Quality Codes: 6 Independent with activity with or without an assistive device 5 Patient requires set up or clean up by helper. Patient completes activity by themselves 4 Supervision or touching assist (CGA). [place] provide cues , steadying assist 3 The helper provides less than half the effort to complete the activity 2 The helper provides more than half the effort to complete the activity 1 Dependent. The helper does all the effort to complete an activity 7 Patient refused to complete or attempt activity 9 The patient did not perform the activity before the current illness or injury 88 Not attempted due to Medical conditions or safety concerns Eating (FIM): 6 (Dentures. Pt able to open containers/packages by self then uses regular utensils to eat.) Eating (QC): 6 Grooming (FIM): 6 (Pt able to brush hair and teeth sitting in chair at sink. ) Oral Hygiene (QC): 6 Bathing (FIM): 6 (Pt requires grab bar, shower bench and hand held shower head. Pt able to wash, rinse, and dry by self. Pt stood using grab bar to wash buttocks. Safety concerns. ) Bathing Location: L Arm, R Arm, L Upper Leg, R Upper Leg, L Lower Leg (including foot), R Lower Leg (including foot), Chest, Abdomen, Buttocks, Perineal Area Shower/Bathe Self (QC): 6 Upper Body (FIM): 6 (Pt able to retrieve clothing from closet using FWW. Pt able to doff shirt sitting in on shower bench. Pt able to don shirt sitting in chair.) Upper Body Dressing (QC): 6 Lower Body Dressing (FIM): 6 (Pt able to retrieve clothing from closet using FWW. Pt able to doff briefs and pants while standing. Pt sitting in chair to don pants to knees. Pt required arm rest to push to stand. Pt able to hike briefs and pants over hips by self. Pt able to don L sock by self. Pt required AE to don R sock. Pt able to don shoes by self. ) Lower Body Dressing (QC): 6 On/Off Footwear (QC): 6 Toileting (FIM): 6 (Pt demonstrated ability to complete hygiene and clothing manipulation using FWW and grab bars. Safety concerns. ) Toileting Hygiene (QC): 6 Transfers (B, C, W/C) (FIM): 6 (Pt required arm rest to push to stand and FWW. ) Toilet/Commode Transfer (FIM): 6 (Using grabbars and FWW to transfer.) Toilet Transfer (QC): 6 Shower Transfer(FIM): 6 (Pt requires FWW, grab bar, and shower bench. ) Other Treatment Pt sitting in chair. Call light and phone in reach and all needs met. OT Short Term Goals Short Term Goals Time Frame: Jan 23, 2019 Bathing(FIM): 4 Upper Body Dressing(FIM): 5 Lower Body Dressing(FIM): 3 Toileting(FIM): 3 Toilet/Commode Transfer(FIM): 4 Shower Transfer(FIM): 4 Additional Short Term Goals: 1-Demonstrate ADL Tasks, 2-Verbalize Understanding, 3-ImproveStrength/Nilda 1=Demonstrate adherence to instructed precautions during ADL tasks. 2=Patient will verbalize/demonstrate understanding of assistive devices/modifications for ADL. 3=Patient will improve strength/tolerance for activity to enable patient to perform ADL's. OT Fdc Goals Industrial Economist Goals Time Frame: Feb 06, 2019 Eating (FIM): 6 (met-01/23/19) Eating (QC): 6 (met-01/23/19) Groomin (met-01/23/19) Oral Hygiene (QC): 6 (met-01/23/19) Bathing(FIM): 5 (met-01/23/19) Shower/Bathe Self (QC): 4 (met-01/23/19) Upper Body Dressing(FIM): 5 (met-01/23/19) Upper Body Dressing (QC): 5 (met-01/23/19) Lower Body Dressing(FIM): 5 (met-01/23/19) Lower Body Dressing (QC): 5 (met-01/23/19) On/Off Footwear (QC): 5 (met-01/23/19) Toileting(FIM): 6 (met-01/23/19) Toileting Hygiene (QC): 6 (met-01/23/19) Toilet/Commode Transfer(FIM): 6 (met-01/23/19) Toilet/Commode Transfer (QC): 6 (met-01/23/19) Shower Transfer(FIM): 5 (met-01/23/19) Additional Goals: 1-Demonstrate ADL Tasks, 2-Verbalize Understanding, 3- ImproveStrength/Nilda 1=Demonstrate adherence to instructed precautions during ADL tasks. 2=Patient will verbalize/demonstrate understanding of assistive devices/modifications for ADL. 3=Patient will improve strength/tolerance for activity to enable patient to perform ADL's. OT Education/Plan Problem List/Assessment Assessment: Decreased Safety Aware, Impaired Self-Care Skills Pt s/p right TKA with decreased mobility, strength, activity tolerance, and ADL functioning. Pt to benefit from skilled OT intervention for ADL training, transfers, strengthening, and home safety education to increase level of independence and allow safe discharge plan. Discharge Recommendations Plan/Recommendations: Continue POC Therapy Discharge Recommendati: Post Acute OT Treatment Plan/Plan of Care Patient would benefit from OT for education, treatment and training to promote independence in ADL's, mobility, safety and/or upper extremity function for ADL's. Plan of Care: ADL Retraining, Functional Mobility, Group Exercise/Act as Ind, UE Funct Exercise/Act Treatment Duration: Feb 06, 2019 Frequency: At least 5 of 7 days/Wk (IRF) Estimated Hrs Per Day: 1.5 hours per day Rehab Potential: Fair Time/GCodes Start Time: 08:15 Stop Time: 09:45 Total Time Billed (hr/min): 90 Billed Treatment Time 1 visit- ADL 6 (90 min) ANASTACIA ERICKSON Jan 23, 2019 09:39
[2019-01-23] MEDS: SENNA W/DOCUSATE (SENOKOT S) TABLET PO SCH ×2 (10:00→20:05)
--- NOTE | 2019-01-23 10:30 | NUR ---
Pastoral care visit.
--- NOTE | 2019-01-23 11:02 | Physical Therapy Daily Note ---
PT Daily Note-Current Subjective Pt. agrees to Rx. Asks what is next multiple times. No c/o pain Pain Location: No Pain Reported Mental Status Patient Orientation: Person, Place, Time, Situation Transfers Therapy Code Descriptions/Definitions Functional [place] Measure: 0=Not Assessed/NA 4=Minimal Assistance 1=Total Assistance 5=Supervision or Setup 2=Maximal Assistance 6=Modified [place] 3=Moderate Assistance 7=Complete [place] Therapy Quality Codes: 6 Independent with activity with or without an assistive device 5 Patient requires set up or clean up by helper. Patient completes activity by themselves 4 Supervision or touching assist (CGA). [place] provide cues , steadying assist 3 The helper provides less than half the effort to complete the activity 2 The helper provides more than half the effort to complete the activity 1 Dependent. The helper does all the effort to complete an activity 7 Patient refused to complete or attempt activity 9 The patient did not perform the activity before the current illness or injury 88 Not attempted due to Medical conditions or safety concerns Transfers (B, C, W/C) (FIM): 6 Scootin Rollin Roll Left to Right (QC): 6 Supine to/from Sit: 6 Sit to/from Stand: 6 Sit to Lying (QC): 6 Sit to Stand (QC): 6 Chair/Cxc-uz-Uadug Xfer(QC): 6 Bed to/from Chair: 6 Car Transfer (QC): 6 Weight Bearing Right Lower Extremity: Right Weight Bearing/Tolerated Gait Training Does the Patient Walk?: Yes Gait (FIM): 6 Distance (FIM): 3=150 ft (160x2) Walk 10 feet (QC): 6 Walk 50 ft with 2 Turns(QC): 6 Walk 150 ft (QC): 6 Walking 10ft/uneven surface-QC: 6 Gait Level of Assist: 6 Gait Persons Needed: 0 Gait Assistive Device: FWW pt. needs guided / directed to areas he has been before Stair Training Stair Training: Handrails/: 1 handrail (both hands) Stairs (FIM): 5 #of Steps: 4 1 Step (curb) (QC): 5 4 Steps (QC): 5 Stairs: Pattern: Step to Level of Assist: 5 pt. needs FWW taken to top step or bottom step Balance Special Test Comments unsafe to trial bending over for object Exercises Supine Ex: Ankle pumps, Quad Set, Rolling, Glut sets, Heel Slides, Short Arc Quads, Scooting, Straight leg raise, Hip abd/add Supine Reps: 20 Treatments AROM 8 degrees to 80degrees Assessment Current Status: Good Progress some cognitive issues, STM issues , gives FT care at home PT Short Term Goals Short Term Goals Time Frame: Jan 23, 2019 Gait (FIM): 1 Gait Distance Comment: 20' Gait Level of Assist: 4 Gait Assistive Device: FWW PT Group Home Goals Group Home Goals PT Corporate Staff Accountant Goals Time Frame: Feb 06, 2019 Transfers (B,C,W/C) (FIM): 5 Sit to Lying (QC): 4 Lying-Sitting on Side/Bed(QC): 4 Sit to Stand (QC): 4 Rollin Roll Left to Right (QC): 4 Chair/Lqp-rn-Lsmsr Xfer(QC): 4 Car Transfer (QC): 4 Gait (FIM): 2 Distance: 50' Walk 10 feet (QC): 4 Walk 10ft-Uneven Surface(QC): 4 Walk 50ft with 2 Turns (QC): 4 Gait Level of Assist: 5 Gait Assistive Device: FWW Stairs (FIM): 2 # of Steps: 4 1 Step (curb) (QC): 3 4 Steps (QC): 3 PT Plan Treatment/Plan Treatment Plan: Continue Plan of Care Treatment Plan: Bed Mobility, Concurrent Therapy, Education, Functional Activity Nilda, Functional Strength, Group Therapy, Gait, Safety, Therapeutic Exercise, Transfers Treatment Duration: Feb 06, 2019 Frequency: At least 5 of 7 days/Wk (IRF) Estimated Hrs Per Day: 1.5 hours per day Patient and/or Family Agrees t: Yes Safety Risks/Education Patient Education: Gait Training, Transfer Techniques, Steps, Correct Positioning, Disease Process, Safety Issues Teaching Recipient: Patient Teaching Methods: Demonstration, Discussion Response to Teaching: Verbalize Understanding, Return Demonstration, Reinforcement Needed Time/GCodes Time In: 1000 Time Out: 1100 Total Billed Treatment Time: 60 Total Billed Treatment 1,GT20m,FA25m,EX15m MITCH RAGLAND HIGH SPEED PRINTER OPERATOR Jan 23, 2019 11:02
--- NOTE | 2019-01-23 11:59 | PM&R Progress Note ---
Subjective HPI/CC On Admission Date Seen by Provider: Jan 23, 2019 Time Seen by Provider: 09:00 Chief complaint: Debility following right total knee replacement History of present illness: This is a 73-year-old white male clinic patient of [facility] and Dr. Fairbanks cardiology who m aintains pacemaker who presents to inpatient rehabilitation following severe debility after her right total knee replacement. He had an uncomplicated surgery and is currently in need of aggressive rehabilitation in order return home with his to lessen the burden on his caregiver and improved success when discharged home with improved ambulation fall risk prevention. He had an uneventful hospital course following the surgery and is currently doing well although details are minimal considering his history of dementia but he is able to participate in therapy and obtain benefit from the aggressive inpatient rehabilitation protocol. At this current time patient denies any bowel movement since he arrived at the hospital for his surgery but he is urinating well with good flow and no retention since surgery. Subjective/Events-last exam Patient feeling really good about discharge on Saturday Denies any significant pain Incision looks good Antibiotics are done at discharge Coumadin has been restarted and maintain on bridged with Lovenox and home health will draw INR per primary care provider Check meds and labs Conferred with RN Reviewed therapy notes Review of Systems General: Fatigue Objective Exam Vital Signs Vital Signs Date Time Temp Pulse Resp B/P (MAP) Pulse Ox O2 Delivery O2 Flow Rate FiO2 01/24/19 07:58 161/77 (105) 01/24/19 06:00 36.1 69 18 98 Room Air 01/19/19 06:25 2.00 Capillary Refill : Less Than 3 Seconds General Appearance: No Apparent Distress, WD/WN, Chronically ill, Obese, Other (flushed) HEENT: PERRL/EOMI, Normal ENT Inspection, Pharynx Normal, Moist Mucous M embranes Neck: Full Range of Motion, Normal Inspection, Non Tender, Supple Respiratory: Chest Non Tender, Lungs Clear, Normal Breath Sounds, No Accessory Muscle Use, No Respiratory Distress Cardiovascular: Regular Rate, Rhythm, No Edema, No Gallop, No JVD, No Murmur Gastrointestinal: Normal Bowel Sounds, No Organomegaly, No Pulsatile Mass, Non Tender, Soft Back: Normal Inspection, No CVA Tenderness, No Vertebral Tenderness Extremity: Normal Capillary Refill, Normal Inspection, Normal Range of Motion (except for right knee postop), Non Tender, No Calf Tenderness, No Pedal Edema Neurologic/Psychiatric: Alert, Oriented x3, No Motor/Sensory Deficits, Normal Mood/Affect, Disoriented (subtle) Skin: Normal Color, Warm/Dry, Other (redness around surgical site) Lymphatic: No Adenopathy Results/Procedures Lab Patient resulted labs reviewed. FIM Transfers Therapy Code Descriptions/Definitions Functional [place] Measure: 0=Not Assessed/NA 4=Minimal Assistance 1=Total Assistance 5=Supervision or Setup 2=Maximal Assistance 6=Modified [place] 3=Moderate Assistance 7=Complete [place] Therapy Quality Codes: 6 Independent with activity with or without an assistive device 5 Patient requires set up or clean up by helper. Patient completes activity by themselves 4 Supervision or touching assist (CGA). [place] provide cues , steadying assist 3 The helper provides less than half the effort to complete the activity 2 The helper provides more than half the effort to complete the activity 1 Dependent. The helper does all the effort to complete an activity 7 Patient refused to complete or attempt activity 9 The patient did not perform the activity before the current illness or injury 88 Not attempted due to Medical conditions or safety concerns Transfers (B, C, W/C) (FIM): 6 Scootin Rollin Roll Left to Right (QC): 6 Supine to/from Sit: 6 Sit to/from Stand: 6 Sit to Lying (QC): 6 Sit to Stand (QC): 6 Chair/Ftt-fi-Gcgkp Xfer(QC): 6 Bed to/from Chair: 6 Car Transfer (QC): 6 Gait Training Does the Patient Walk?: Yes Gait (FIM): 6 Distance (FIM): 3=150 ft (160x2) Distance: 150' Walk 10 feet (QC): 6 Walk 50 ft with 2 Turns(QC): 6 Walk 150 ft (QC): 6 Walking 10ft/uneven surface-QC: 6 Gait Level of Assist: 6 Gait Persons Needed: 0 Gait Assistive Device: FWW Wheelchair Training Does the Pt Use a Wheelchair?: No Wheelchair (FIM): 1 Stair Training Stair Training: Handrails/: 1 handrail (both hands) Stairs (FIM): 5 #of Steps: 4 1 Step (curb) (QC): 5 4 Steps (QC): 5 Stairs: Pattern: Step to Level of Assist: 5 Mental Status/Objective Comprehension: 7 Expression: 7 Social Interaction: 7 Problem Solvin Memory: 6 ADL-Treatment Feedin (Dentures. Pt able to open containers/packages by self then uses regular utensils to eat.) Eating (QC): 6 Groomin (Pt able to brush hair and teeth sitting in chair at sink. ) Oral Hygiene (QC): 6 Bathin (Pt requires grab bar, shower bench and hand held shower head. Pt able to wash, rinse, and dry by self. Pt stood using grab bar to wash buttocks. Safety concerns. ) Bathing Location: L Arm, R Arm, L Upper Leg, R Upper Leg, L Lower Leg (including foot), R Lower Leg (including foot), Chest, Abdomen, Buttocks, Perineal Area Shower/Bathe Self (QC): 6 Upper Extremity Dressin (Pt able to retrieve clothing from closet using FWW. Pt able to doff shirt sitting in on shower bench. Pt able to don shirt sitting in chair.) Upper Body Dressing (QC): 6 Lower Extremity Dressin (Pt able to retrieve clothing from closet using FWW. Pt able to doff briefs and pants while standing. Pt sitting in chair to don pants to knees. Pt required arm rest to push to stand. Pt able to hike briefs and pants over hips by self. Pt able to don L sock by self. Pt required AE to don R sock. Pt able to don shoes by self. ) Lower Body Dressing (QC): 6 On/Off Footwear (QC): 6 Toiletin (Pt demonstrated ability to complete hygiene and clothing manipulation using FWW and grab bars. Safety concerns. ) Toileting Hygiene (QC): 6 Toilet/Commode Transfer: 6 (Using grabbars and FWW to transfer.) Toilet Transfer (QC): 6 Shower: 6 (Pt requires FWW, grab bar, and shower bench. ) Assessment/Plan Assessment and Plan Assess & Plan/Chief Complaint Plan: Inpatient rehabilitation protocol Intensify bowel regimen until constipation resolved Home meds DVT prophylaxis Monitor labs Monitor blood pressure PO abx until DC DC Sat Restart Coumadin along with Lovenox bridge (1) Status post right knee replacement Status: Acute (2) Dementia Status: Chronic Qualifiers: Dementia type: unspecified type Dementia behavioral disturbance: without behavioral disturbance Qualified Codes: F03.90 - Unspecified dementia without behavioral disturbance (3) Cellulitis, wound, post-operative Status: Acute (4) CAD (coronary artery disease), platinum coronary artery Status: Chronic Qualifiers: [place] vs. transplanted heart: platinum heart Associated angina: without angina Qualified Codes: I25.10 - Atherosclerotic heart disease of platinum coronary artery without angina pectoris (5) Concentric left ventricular hypertrophy Status: Chronic (6) Grade II diastolic dysfunction Status: Chronic (7) 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 (8) Chronic GERD Status: Chronic (9) Obesity (BMI 30-39.9) Status: Chronic (10) DVT prophylaxis Status: Acute (11) Hearing difficulty Status: Chronic (12) Osteoarthritis of right knee Status: Chronic (13) History of stroke Status: Chronic (14) Dyslipidemia Status: Chronic (15) Major depression, recurrent Status: Chronic (16) Pacemaker Status: Chronic (17) Chronic fatigue Status: Chronic (18) Sleep apnea Status: Chronic (19) Type II diabetes mellitus with complication Status: Chronic (20) Hypertension Status: Chronic (21) Hypoxia Status: Chronic (22) Arthritis Status: Chronic (23) Anxiety Status: Chronic (24) Insomnia Status: Chronic Qualifiers: Insomnia type: primary Qualified Codes: F51.01 - 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 (25) Unable to ambulate Status: Acute (26) Fever Status: Acute Qualifiers: Fever type: unspecified Qualified Codes: R50.9 - Fever, unspecified (27) Frequent falls Status: Acute DIYA ELDER DO Jan 23, 2019 11:59
[2019-01-23] MEDS ORDERED: SENN-20 PO (12:06)
[2019-01-23] MEDS ORDERED: ASPI-983 PO (12:06)
[2019-01-23] MEDS ORDERED: OXYC1TAB87 PO (12:06)
[2019-01-23] MEDS ORDERED: ENOX30DI4 SC (12:06)
--- NOTE | 2019-01-23 12:07 | Discharge Summary ---
Discharge Summary Reconcile Patient Problems Problems Reviewed?: Yes Instructions for Patient [facility], Assessment/Instructions [facility] 1 week to monitor INR Physician to follow Patient: [facility] Discharge Diet for Home: Cardiac Diet Hospital Course Date of Admission: Jan 16, 2019 at 12:15 Admission Diagnosis : Family Physician/Provider: Henri Gonzales Date of Discharge: 01/23/19 Discharge Diagnosis: [ ] Hospital Course: [ ] Labs and Pending Lab Test: Laboratory Tests 01/22/19 16:00: Glucometer 162H 01/23/19 04:42: Glucometer 170H Microbiology 01/17/19 Urine Culture - Final, Complete NO GROWTH Home Meds Active Reported Warfarin Sodium 5 Mg Tablet 5 Mg PO HS Klor-Con 10 (Potassium Chloride) 10 Meq Tablet.er 10 Meq PO DAILY Donepezil HCl 10 Mg Tablet 10 Mg PO HS Klonopin (Clonazepam) 1 Mg Tablet 2 Mg PO HS PRN Amiodarone HCl 200 Mg Tablet 200 Mg PO BID Metformin HCl 500 Mg Tablet 1,000 Mg PO HS take 2 (500mg) tabs Hydrocodone-Acetamin 5-325 mg (Hydrocodone/Acetaminophen) 1 Each Tablet 1 Tab PO Q6H PRN Topiramate 50 Mg Tablet 50 Mg PO BID Lovastatin 20 Mg Tablet 20 Mg PO HS Paroxetine HCl 40 Mg Tablet 40 Mg PO DAILY Amlodipine Besylate 10 Mg Tablet 10 Mg PO DAILY Enalapril Maleate 5 Mg Tablet 5 Mg PO BID Clonidine HCl 0.2 Mg Tablet 0.2 Mg PO BID Metformin HCl 500 Mg Tablet 500 Mg PO DAILY Actos (Pioglitazone HCl) 30 Mg Tablet 30 Mg PO DAILY Klonopin (Clonazepam) 1 Mg Tablet 1 Mg PO BID PRN Patient Allergies: Coded Allergies: Sulfa (Sulfonamide Antibiotics) (Verified Allergy, Unknown, 01/14/19) Height (Feet): 5 Height (Inches): 8.50 Weight (Pounds): 223 Weight (Ounces): 4.0 Home Health Need/Face to Face Date of Face to Face: Jan 23, 2019 Clinical Findings: Generalized weakness and fatigue, Muscle weakness, Unsteady gait I have seen Pt [id number]: Yes Discharged To: Home Diagnosis/Conditions: Right knee replacement Patient is Homebound due to: May fall risk due to instabilty, Muscle weakness Homebound Status Due to the above stated illness, injury or surgical procedure (medical condition or diagnosis) and associated clinical findings, the patient is homebound because of his/her inability to leave home except with aid of a supportive device and/or person AND leaving the home requires a considerable and taxing effort or is medically contraindicated. Pt req the following assistanc: [facility] Nursing Orders Home Health Services Order: Nursing Services (Monitor INR), Blanket Washer- Evaluate & Treat, Physical Therapy-Evaluate & Treat Certify Stmt I certify that this patient is under my care and that I, a nurse practitioner or a physician; a senior executive assistant working with me, had a face to face encounter that - meets the physician face to face encounter requirements with this patient as dated. DIYA ELDER DO Jan 23, 2019 12:07
--- NOTE | 2019-01-23 13:00 | NUR ---
Dr. Dumont asked for patient to be scheduled for a follow up appoinment in his office in two weeks. Call placed to office. Awaiting for return call. As patient is discharging to home tomorrow, asked that if call was not returned by end of day, that Physician's office would call patient at home with appointment time.
--- NOTE | 2019-01-23 14:08 | Progress Note ---
Standard Progress Note Progress Notes/Assess & Plan Date Seen by a Provider: Jan 23, 2019 Time Seen by a Provider: 14:06 Progress/Assessment & Plan patient feeling better Vital Signs Date Time Temp Pulse Resp B/P (MAP) Pulse Ox O2 Delivery O2 Flow Rate FiO2 01/18/19 08:10 Room Air 01/18/19 07:40 Nasal Cannula 2.00 01/18/19 05:38 37.2 77 18 153/85 97 Nasal Cannula 2.00 01/17/19 21:11 Nasal Cannula 2.00 01/17/19 21:05 37.3 75 18 150/75 97 Nasal Cannula 2.00 01/17/19 16:01 Nasal Cannula 2.00 01/17/19 15:55 36.6 77 16 156/79 100 Nasal Cannula 2.00 I & O 01/18/19 07:00 Intake Total 2070 ml Output Total 675 ml Balance 1395 ml Laboratory Tests Test 01/17/19 13:53 01/18/19 05:00 Range/Units Urine Color YELLOW Urine Clarity SL CLOUDY Urine pH 6 5-9 Urine Specific [place] 1.020 1.016-1.022 Urine Protein 3+ H NEGATIVE Urine Glucose (UA) 3+ H NEGATIVE Urine Ketones 1+ H NEGATIVE Urine Nitrite NEGATIVE NEGATIVE Urine Bilirubin NEGATIVE NEGATIVE Urine Urobilinogen 1 NORMAL MG/DL Urine Leukocyte Esterase NEGATIVE NEGATIVE Urine RBC (Auto) 2+ H NEGATIVE Urine RBC 0-2 /HPF Urine WBC 0-2 /HPF Urine Squamous Epithelial Cells NONE /HPF Urine Crystals PRESENT H /LPF Urine Amorphous Sediment FEW FELIPA URATES H /LPF Urine Bacteria MODERATE H /HPF Urine Casts PRESENT /LPF Urine Hyaline Casts 0-2 H /LPF Urine Granular Casts 2-5 H /LPF Urine Mucus MODERATE H /LPF Urine Other FEW SPERM H /HPF Urine Culture Indicated YES White Blood Count 15.1 H 4.3-11.0 10^3/uL Red Blood Count 3.90 L 4.35-5.85 10^6/uL Hemoglobin 10.4 L 13.3-17.7 G/DL Hematocrit 34 L 40-54 % Mean Corpuscular Volume 86 80-99 FL Mean Corpuscular Hemoglobin 27 25-34 PG Mean Corpuscular Hemoglobin Concent 31 L 32-36 G/DL Red Cell Distribution Width 16.7 H 10.0-14.5 % Platelet Count 174 130-400 10^3/uL Mean Platelet Volume 11.0 H 7.4-10.4 FL Neutrophils (%) (Auto) 86 H 42-75 % Lymphocytes (%) (Auto) 8 L 12-44 % Monocytes (%) (Auto) 7 0-12 % Eosinophils (%) (Auto) 0 0-10 % Basophils (%) (Auto) 0 0-10 % Neutrophils # (Auto) 12.9 H 1.8-7.8 X 10^3 Lymphocytes # (Auto) 1.2 1.0-4.0 X 10^3 Monocytes # (Auto) 1.0 0.0-1.0 X 10^3 Eosinophils # (Auto) 0.0 0.0-0.3 10^3/uL Basophils # (Auto) 0.0 0.0-0.1 10^3/uL Sodium Level 142 135-145 MMOL/L Potassium Level 4.2 3.6-5.0 MMOL/L Chloride Level 108 H 98-107 MMOL/L Carbon Dioxide Level 23 21-32 MMOL/L Anion Gap 11 5-14 MMOL/L Blood Urea Nitrogen 14 7-18 MG/DL Creatinine 0.85 0.60-1.30 MG/DL Estimat Glomerular Filtration Rate > 60 BUN/Creatinine Ratio 16 Glucose Level 167 H 70-105 MG/DL Calcium Level 8.5 8.5-10.1 MG/DL Corrected Calcium 9.3 8.5-10.1 MG/DL Total Bilirubin 0.7 0.1-1.0 MG/DL Aspartate Amino Transf (AST/SGOT) 18 5-34 U/L Alanine Aminotransferase (ALT/SGPT) 17 0-55 U/L Alkaline Phosphatase 72 40-136 U/L Total Protein 6.2 L 6.4-8.2 GM/DL Albumin 3.0 L 3.2-4.5 GM/DL RLE--incision clean and dry. fracture blister distal to incision. lower leg erythematous. Neg Josefina's s/p RTKA with distal cellulitis. Not surprising, considering venous insufficiency history continue PT/OT change abx to Ancef. If no response within 48 hours, will switch to Bactrim/Doxycycline Final Diagnosis no complaints Vital Signs Date Time Temp Pulse Resp B/P (MAP) Pulse Ox O2 Delivery O2 Flow Rate FiO2 01/23/19 09:00 Room Air 01/23/19 08:17 83 171/100 (123) 01/23/19 05:24 36.8 70 16 178/88 (118) 95 Room Air 01/22/19 21:00 Room Air 01/22/19 16:01 36.2 77 14 161/88 (112) 97 Room Air I & O 01/23/19 07:00 Intake Total 1240 ml Output Total 950 ml Balance 290 ml Laboratory Tests Test 01/22/19 16:00 01/23/19 04:42 Range/Units Glucometer 162 H 170 H 70-110 MG/DL RLE--distal erythema resolved. No calf tenderness. s/p RTKA doing well with resolved cellulitis DC tomorrow FU two weeks xochitl out saturday MARCO DIETZ MD Jan 23, 2019 14:08
--- NOTE | 2019-01-23 14:25 | Physical Therapy Daily Note ---
PT Daily Note-Current Subjective Patient agrees to PT. He reports he is going home tomorrow and is ready. Pain Numeric Pain Scale: 5-Moderate Pain Location: Right Location Body Site: Knee Pain Description: Acute Mental Status Patient Orientation: Normal For Age Transfers Therapy Code Descriptions/Definitions Functional [place] Measure: 0=Not Assessed/NA 4=Minimal Assistance 1=Total Assistance 5=Supervision or Setup 2=Maximal Assistance 6=Modified [place] 3=Moderate Assistance 7=Complete [place] Therapy Quality Codes: 6 Independent with activity with or without an assistive device 5 Patient requires set up or clean up by helper. Patient completes activity by themselves 4 Supervision or touching assist (CGA). [place] provide cues , steadying assist 3 The helper provides less than half the effort to complete the activity 2 The helper provides more than half the effort to complete the activity 1 Dependent. The helper does all the effort to complete an activity 7 Patient refused to complete or attempt activity 9 The patient did not perform the activity before the current illness or injury 88 Not attempted due to Medical conditions or safety concerns Transfers (B, C, W/C) (FIM): 6 Scootin Sit to/from Stand: 6 Sit to Stand (QC): 6 Car Transfer (QC): 6 Weight Bearing Right Lower Extremity: Right Weight Bearing/Tolerated Gait Training Does the Patient Walk?: Yes Gait (FIM): 6 Distance (FIM): 3=150 ft Distance: 200' x 2 Walk 10 feet (QC): 6 Walk 50 ft with 2 Turns(QC): 6 Walk 150 ft (QC): 6 Gait Level of Assist: 6 Gait Assistive Device: FWW reciprocal pattern Exercises Seated Therapy Exercises: Ankle pumps, Long arc quads Seated Reps: 15 NuStep Minutes: 15 NuStep Workload: 5 (to increase ROM and functional mobility) Assessment Patient tolerated treatment well and will dismiss to home tomorrow with spouse and home health. PT Short Term Goals Short Term Goals Time Frame: Jan 23, 2019 Gait (FIM): 1 Gait Distance Comment: 20' Gait Level of Assist: 4 Gait Assistive Device: FWW PT Activities Volunteer Goals Custodial Goals PT Custodial Goals Time Frame: Feb 06, 2019 Transfers (B,C,W/C) (FIM): 5 Sit to Lying (QC): 4 Lying-Sitting on Side/Bed(QC): 4 Sit to Stand (QC): 4 Rollin Roll Left to Right (QC): 4 Chair/Ohs-ro-Cuhpq Xfer(QC): 4 Car Transfer (QC): 4 Gait (FIM): 2 Distance: 50' Walk 10 feet (QC): 4 Walk 10ft-Uneven Surface(QC): 4 Walk 50ft with 2 Turns (QC): 4 Gait Level of Assist: 5 Gait Assistive Device: FWW Stairs (FIM): 2 # of Steps: 4 1 Step (curb) (QC): 3 4 Steps (QC): 3 PT Plan Treatment/Plan Treatment Plan: Discontinue PT, goals met Treatment Plan: Bed Mobility, Concurrent Therapy, Education, Functional Activity Nilda, Functional Strength, Group Therapy, Gait, Safety, Therapeutic Exercise, Transfers Treatment Duration: Feb 06, 2019 Frequency: At least 5 of 7 days/Wk (IRF) Estimated Hrs Per Day: 1.5 hours per day Patient and/or Family Agrees t: Yes Time/GCodes Time In: 1350 Time Out: 1420 Total Billed Treatment Time: 30 Total Billed Treatment 1 visit GT 10 min EX 20 min LUCÍA HUSTON PT Jan 23, 2019 14:25
--- NOTE | 2019-01-23 15:40 | NUR ---
Discussed IMM with patient. Patient reports he is "more than ready" to go home. Signature obtained. Patient voices no concerns regarding discharge home tomorrow.
[2019-01-23 16:17] VITALS: BP 158/91
[2019-01-23] MEDS: warFARin 5 MG (COUMADIN) TAB PO SCH (17:59)
[2019-01-24] MEDS: CEPHALEXIN 250 MG (KEFLEX) CAP PO SCH ×4 (00:09→16:50)
[2019-01-24] MEDS: KCL 10 MEQ TAB (MICRO K) PO SCH ×2 (05:17→16:50)
[2019-01-24] MEDS: MULTIVIT W/MINERALS TAB (THERAGRAN M) PO SCH (05:17)
[2019-01-24] MEDS: oxyCODONE/APAP 5/325MG (PERCOCET 5) TABLET PO PRN ×2 (05:18→16:50)
[2019-01-24] MEDS: inSUlin ASPART (NovoLOG) 1 UNIT/0.01 ML (CHARGE PER UNIT) SC SCH ×2 (05:22→16:09)
[2019-01-24 06:00] VITALS: BP 190/73
--- NOTE | 2019-01-24 06:24 | NUR ---
Dr. Márquez notified about pt's BP 190/97, 189/93, 190/96, HR 72. No new orders received.
[2019-01-24] MEDS: ENOXAPARIN 30 MG/0.3 ML (LOVENOX) SYR SC SCH (07:38)
[2019-01-24 07:58] VITALS: BP 161/77
[2019-01-24] MEDS: SENNA W/DOCUSATE (SENOKOT S) TABLET PO SCH (08:00)
[2019-01-24] MEDS: ASPIRIN E.C. 81 MG (ECOTRIN) TAB PO SCH (08:00)
[2019-01-24] MEDS: ENALAPRIL 5 MG (VASOTEC) TAB PO SCH (08:00)
[2019-01-24] MEDS: clonazePAM 1 MG (KlonoPIN) TAB PO SCH (08:00)
[2019-01-24] MEDS: MICONAZOLE 2% POWDER (DESENEX AF) 90 GM TOP SCH (08:01)
[2019-01-24] MEDS: NYSTATIN CREAM (MYCOSTATIN) 30 GM TUBE TP SCH (08:01)
[2019-01-24] MEDS: AMIODARONE 200 MG (CORDARONE) TAB PO SCH (08:01)
--- NOTE | 2019-01-24 09:04 | Discharge Summary ---
Diagnosis/Chief Complaint Date of Admission Jan 16, 2019 at 12:15 Date of Discharge Discharge Date: Jan 23, 2019 Discharge Diagnosis Assess & Plan/Chief Complaint Plan: Inpatient rehabilitation protocol Intensify bowel regimen until constipation resolved Home meds DVT prophylaxis Monitor labs Monitor blood pressure PO abx until DC DC Sat (1) Status post right knee replacement Status: Acute (2) Dementia Status: Chronic Qualifiers: Dementia type: unspecified type Dementia behavioral disturbance: without behavioral disturbance Qualified Codes: F03.90 - Unspecified dementia without behavioral disturbance (3) Cellulitis, wound, post-operative Status: Acute (4) CAD (coronary artery disease), [place] coronary artery Status: Chronic Qualifiers: [place] vs. transplanted heart: [place] heart Associated angina: without angina Qualified Codes: I25.10 - Atherosclerotic heart disease of [place] coronary artery without angina pectoris (5) Concentric left ventricular hypertrophy Status: Chronic (6) Grade II diastolic dysfunction Status: Chronic (7) 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 (8) Chronic GERD Status: Chronic (9) Obesity (BMI 30-39.9) Status: Chronic (10) DVT prophylaxis Status: Acute (11) Hearing difficulty Status: Chronic (12) Osteoarthritis of right knee Status: Chronic (13) History of stroke Status: Chronic (14) Dyslipidemia Status: Chronic (15) Major depression, recurrent Status: Chronic (16) Pacemaker Status: Chronic (17) Chronic fatigue Status: Chronic (18) Sleep apnea Status: Chronic (19) Type II diabetes mellitus with complication Status: Chronic (20) Hypertension Status: Chronic (21) Hypoxia Status: Chronic (22) Arthritis Status: Chronic (23) Anxiety Status: Chronic (24) Insomnia Status: Chronic Qualifiers: Insomnia type: primary Qualified Codes: F51.01 - 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 (25) Unable to ambulate Status: Acute (26) Fever Status: Acute Qualifiers: Fever type: unspecified Qualified Codes: R50.9 - Fever, unspecified (27) Frequent falls Status: Acute Discharge Summary Discharge Physical Examination Allergies: Coded Allergies: Sulfa (Sulfonamide Antibiotics) (Verified Allergy, Unknown, 01/14/19) Vitals & I&Os Vital Signs Date Time Temp Pulse Resp B/P (MAP) Pulse Ox O2 Delivery O2 Flow Rate FiO2 01/24/19 07:58 161/77 (105) 01/24/19 06:00 36.1 69 18 98 Room Air 01/19/19 06:25 2.00 Hospital Course Was the Problem List Reviewed?: Yes Hospital course: Patient had an uncomplicated hospital course for 8 days in inpatient rehabilitation although he did have fever and leukocytosis the day after admission and all workup including UA and chest x-ray were normal but right leg cellulitis acute on chronic with incision postop wound infection was diagnosed placed on Rocephin empirically then narrowed to Ancef and Dr. Dumont agreed with the plan. Labs remained stable patient had no significant events otherwise in the rehabilitation facility. Bowels returned back to normal after multiple laxatives. Coumadin was restarted and will be maintained on a Lovenox bridge over the weekend and home health will check INR per primary care provider. He participated in all therapies and was back to near prior level of functioning with the use of a walker. He was discharged in improved condition and will have close follow-up [facility] and Dr. Dumont. Labs (last 24 hrs) Laboratory Tests 01/16/19 12:15: Lab Scanned Report Referred Lab Report 01/17/19 05:41: Glucometer 148H 01/17/19 11:42: White Blood Count 18.6H, Red Blood Count 4.29L, Hemoglobin 11.4L, Hematocrit 37L , Mean Corpuscular Volume 86, Mean Corpuscular Hemoglobin 27, Mean Corpuscular Hemoglobin Concent 31L, Red Cell Distribution Width 17.2H, Platelet Count 161, Mean Platelet Volume 11.2H, Neutrophils (%) (Auto) 88H, Lymphocytes (%) (Auto) 6L, Monocytes (%) (Auto) 6, Eosinophils (%) (Auto) 0, Basophils (%) (Auto) 0, Neutrophils # (Auto) 16.4H, Lymphocytes # (Auto) 1.0, Monocytes # (Auto) 1.1H, Eosinophils # (Auto) 0.0, Basophils # (Auto) 0.0, Neutrophils % (Manual) 93, Lymphocytes % (Manual) 4, Monocytes % (Manual) 3, Eosinophils % (Manual) 0, Basophils % (Manual) 0, Band Neutrophils 0, Anisocytosis SLIGHT, Sodium Level 139, Potassium Level 3.7, Chloride Level 106, Carbon Dioxide Level 22, Anion Gap 11, Blood Urea Nitrogen 15, Creatinine 0.92, Estimat Glomerular Filtration Rate > 60, BUN/Creatinine Ratio 16, Glucose Level 187H, Calcium Level 8.9, Corrected Calcium 9.4, Total Bilirubin 0.9, Aspartate Amino Transf (AST/SGOT) 23, Alanine Aminotransferase (ALT/SGPT) 20, Alkaline Phosphatase 83, Total Protein 6.8, Albumin 3.4 01/17/19 13:05: Lactic Acid Level 1.03 01/17/19 13:53: Urine Color YELLOW, Urine Clarity SL CLOUDY, Urine pH 6, Urine Specific [place] 1.020, Urine Protein 3+H, Urine Glucose (UA) 3+H, Urine Ketones 1+H, Urine Nitrite NEGATIVE, Urine Bilirubin NEGATIVE, Urine Urobilinogen 1, Urine Leukocyte Esterase NEGATIVE, Urine RBC (Auto) 2+H, Urine RBC 0-2, Urine WBC 0-2, Urine Squamous Epithelial Cells NONE, Urine Crystals PRESENTH, Urine Amorphous Sediment FEW FELIPA URATESH, Urine Bacteria MODERATEH, Urine Casts PRESENT, Urine Hyaline Casts 0-2H, Urine Granular Casts 2-5H, Urine Mucus MODERATEH, Urine Other FEW SPERMH, Urine Culture Indicated YES 01/18/19 05:00: White Blood Count 15.1H, Red Blood Count 3.90L, Hemoglobin 10.4L, Hematocrit 34L , Mean Corpuscular Volume 86, Mean Corpuscular Hemoglobin 27, Mean Corpuscular Hemoglobin Concent 31L, Red Cell Distribution Width 16.7H, Platelet Count 174, Mean Platelet Volume 11.0H, Neutrophils (%) (Auto) 86H, Lymphocytes (%) (Auto) 8L, Monocytes (%) (Auto) 7, Eosinophils (%) (Auto) 0, Basophils (%) (Auto) 0, Neutrophils # (Auto) 12.9H, Lymphocytes # (Auto) 1.2, Monocytes # (Auto) 1.0, Eosinophils # (Auto) 0.0, Basophils # (Auto) 0.0, Sodium Level 142, Potassium Level 4.2, Chloride Level 108H, Carbon Dioxide Level 23, Anion Gap 11, Blood Urea Nitrogen 14, Creatinine 0.85, Estimat Glomerular Filtration Rate > 60, BUN /Creatinine Ratio 16, Glucose Level 167H, Calcium Level 8.5, Corrected Calcium 9.3, Total Bilirubin 0.7, Aspartate Amino Transf (AST/SGOT) 18, Alanine Aminotransferase (ALT/SGPT) 17, Alkaline Phosphatase 72, Total Protein 6.2L, Albumin 3.0L 01/19/19 04:28: White Blood Count 12.1H, Red Blood Count 4.13L, Hemoglobin 10.9L, Hematocrit 36L , Mean Corpuscular Volume 86, Mean Corpuscular Hemoglobin 26, Mean Corpuscular Hemoglobin Concent 31L, Red Cell Distribution Width 17.3H, Platelet Count 226, Mean Platelet Volume 10.6H, Neutrophils (%) (Auto) 83H, Lymphocytes (%) (Auto) 10L, Monocytes (%) (Auto) 7, Eosinophils (%) (Auto) 0, Basophils (%) (Auto) 0, N eutrophils # (Auto) 10.0H, Lymphocytes # (Auto) 1.2, Monocytes # (Auto) 0.9, Eosinophils # (Auto) 0.0, Basophils # (Auto) 0.0, Sodium Level 145, Potassium Level 4.0, Chloride Level 109H, Carbon Dioxide Level 23, Anion Gap 13, Blood Urea Nitrogen 13, Creatinine 0.82, Estimat Glomerular Filtration Rate > 60, BUN/Creatinine Ratio 16, Glucose Level 167H, Calcium Level 8.9, Corrected Calcium 9.5, Total Bilirubin 0.6, Aspartate Amino Transf (AST/SGOT) 16, Alanine Aminotransferase (ALT/SGPT) 15, Alkaline Phosphatase 66, Total Protein 6.2L, Albumin 3.2 01/21/19 04:49: White Blood Count 11.8H, Red Blood Count 4.37, Hemoglobin 11.3L, Hematocrit 37L, Mean Corpuscular Volume 85, Mean Corpuscular Hemoglobin 26, Mean Corpuscular Hemoglobin Concent 30L, Red Cell Distribution Width 17.6H, Platelet Count 295, Mean Platelet Volume 10.1, Neutrophils (%) (Auto) 79H, Lymphocytes (%) (Auto) 12, Monocytes (%) (Auto) 9, Eosinophils (%) (Auto) 0, Basophils (%) (Auto) 0, Neutrophils # (Auto) 9.2H, Lymphocytes # (Auto) 1.4, Monocytes # (Auto) 1.0, Eosinophils # (Auto) 0.0, Basophils # (Auto) 0.0, Sodium Level 141, Potassium Level 3.0L, Chloride Level 104, Carbon Dioxide Level 28, Anion Gap 9, Blood Urea Nitrogen 16, Creatinine 0.82, Estimat Glomerular Filtration Rate > 60, BUN/Creatinine Ratio 20, Glucose Level 172H, Calcium Level 8.4L, Corrected Calcium 9.0, Total Bilirubin 0.6, Aspartate Amino Transf (AST/SGOT) 19, Alanine Aminotransferase (ALT/SGPT) 9, Alkaline Phosphatase 69, Total Protein 6.4, Albumin 3.2 01/21/19 15:25: Glucometer 160H 01/21/19 20:49: Glucometer 211H 01/21/19 22:00: Glucometer 185H 01/22/19 05:37: Glucometer 154H 01/22/19 16:00: Glucometer 162H 01/23/19 04:42: Glucometer 170H 01/23/19 16:16: Glucometer 163H 01/24/19 05:05: Glucometer 158H Microbiology 01/17/19 Urine Culture - Final, Complete NO GROWTH Pending Labs Microbiology Date/Time Source Procedure Growth Status 01/17/19 13:53 Urine Clean Catch Urine Culture - Final NO GROWTH Complete Laboratory Tests 01/16/19 12:15: Lab Scanned Report Referred Lab Report 01/17/19 05:41: Glucometer 148 01/17/19 11:42: White Blood Count 18.6, Red Blood Count 4.29, Hemoglobin 11.4, Hematocrit 37, Mean Corpuscular Volume 86, Mean Corpuscular Hemoglobin 27, Mean Corpuscular Hemoglobin Concent 31, Red Cell Distribution Width 17.2, Platelet Count 161, Mean Platelet Volume 11.2, Neutrophils (%) (Auto) 88, Lymphocytes (%) (Auto) 6, Monocytes (%) (Auto) 6, Eosinophils (%) (Auto) 0, Basophils (%) (Auto) 0, Neutrophils # (Auto) 16.4, Lymphocytes # (Auto) 1.0, Monocytes # (Auto) 1.1, Eosinophils # (Auto) 0.0, Basophils # (Auto) 0.0, Neutrophils % (Manual) 93, Lymphocytes % (Manual) 4, Monocytes % (Manual) 3, Eosinophils % (Manual) 0, Basophils % (Manual) 0, Band Neutrophils 0, Anisocytosis SLIGHT, Sodium Level 139, Potassium Level 3.7, Chloride Level 106, Carbon Dioxide Level 22, Anion Gap 11, Blood Urea Nitrogen 15, Creatinine 0.92, Estimat Glomerular Filtration Rate > 60, BUN/Creatinine Ratio 16, Glucose Level 187, Calcium Level 8.9, Corrected Calcium 9.4, Total Bilirubin 0.9, Aspartate Amino Transf (AST/SGOT) 23, Alanine Aminotransferase (ALT/SGPT) 20, Alkaline Phosphatase 83, Total Protein 6.8, Albumin 3.4 01/17/19 13:05: Lactic Acid Level 1.03 01/17/19 13:53: Urine Color YELLOW, Urine Clarity SL CLOUDY, Urine pH 6, Urine Specific [place] 1.020, Urine Protein 3+, Urine Glucose (UA) 3+, Urine Ketones 1+, Urine Nitrite NEGATIVE, Urine Bilirubin NEGATIVE, Urine Urobilinogen 1, Urine Leukocyte Esterase NEGATIVE, Urine RBC (Auto) 2+, Urine RBC 0-2, Urine WBC 0-2, Urine Squamous Epithelial Cells NONE, Urine Crystals PRESENT, Urine Amorphous Sediment FEW FELIPA URATES, Urine Bacteria MODERATE, Urine Casts PRESENT, Urine Hyaline Casts 0-2, Urine Granular Casts 2-5, Urine Mucus MODERATE, Urine Other FEW SPERM, Urine Culture Indicated YES 01/18/19 05:00: White Blood Count 15.1, Red Blood Count 3.90, Hemoglobin 10.4, Hematocrit 34, Mean Corpuscular Volume 86, Mean Corpuscular Hemoglobin 27, Mean Corpuscular Hemoglobin Concent 31, Red Cell Distribution Width 16.7, Platelet Count 174, Mean Platelet Volume 11.0, Neutrophils (%) (Auto) 86, Lymphocytes (%) (Auto) 8, Monocytes (%) (Auto) 7, Eosinophils (%) (Auto) 0, Basophils (%) (Auto) 0, Neutrophils # (Auto) 12.9, Lymphocytes # (Auto) 1.2, Monocytes # (Auto) 1.0, Eosinophils # (Auto) 0.0, Basophils # (Auto) 0.0, Sodium Level 142, Potassium Level 4.2, Chloride Level 108, Carbon Dioxide Level 23, Anion Gap 11, Blood Urea Nitrogen 14, Creatinine 0.85, Estimat Glomerular Filtration Rate > 60, BUN/Creatinine Ratio 16, Glucose Level 167, Calcium Level 8.5, Corrected Calcium 9.3, Total Bilirubin 0.7, Aspartate Amino Transf (AST/SGOT) 18, Alanine Aminotransferase (ALT/SGPT) 17, Alkaline Phosphatase 72, Total Protein 6.2, Albumin 3.0 01/19/19 04:28: White Blood Count 12.1, Red Blood Count 4.13, Hemoglobin 10.9, Hematocrit 36, Mean Corpuscular Volume 86, Mean Corpuscular Hemoglobin 26, Mean Corpuscular Hemoglobin Concent 31, Red Cell Distribution Width 17.3, Platelet Count 226, Mean Platelet Volume 10.6, Neutrophils (%) (Auto) 83, Lymphocytes (%) (Auto) 10, Monocytes (%) (Auto) 7, Eosinophils (%) (Auto) 0, Basophils (%) (Auto) 0, Neutrophils # (Auto) 10.0, Lymphocytes # (Auto) 1.2, Monocytes # (Auto) 0.9, Eosinophils # (Auto) 0.0, Basophils # (Auto) 0.0, Sodium Level 145, Potassium Level 4.0, Chloride Level 109, Carbon Dioxide Level 23, Anion Gap 13, Blood Urea Nitrogen 13, Creatinine 0.82, Estimat Glomerular Filtration Rate > 60, BUN/Creatinine Ratio 16, Glucose Level 167, Calcium Level 8.9, Corrected Calcium 9.5, Total Bilirubin 0.6, Aspartate Amino Transf (AST/SGOT) 16, Alanine Aminotransferase (ALT/SGPT) 15, Alkaline Phosphatase 66, Total Protein 6.2, Albumin 3.2 01/21/19 04:49: White Blood Count 11.8, Red Blood Count 4.37, Hemoglobin 11.3, Hematocrit 37, Mean Corpuscular Volume 85, Mean Corpuscular Hemoglobin 26, Mean Corpuscular Hemoglobin Concent 30, Red Cell Distribution Width 17.6, Platelet Count 295, Mean Platelet Volume 10.1, Neutrophils (%) (Auto) 79, Lymphocytes (%) (Auto) 12, Monocytes (%) (Auto) 9, Eosinophils (%) (Auto) 0, Basophils (%) (Auto) 0, Neutrophils # (Auto) 9.2, Lymphocytes # (Auto) 1.4, Monocytes # (Auto) 1.0, Eosinophils # (Auto) 0.0, Basophils # (Auto) 0.0, Sodium Level 141, Potassium Level 3.0, Chloride Level 104, Carbon Dioxide Level 28, Anion Gap 9, Blood Urea Nitrogen 16, Creatinine 0.82, Estimat Glomerular Filtration Rate > 60, BUN/Creatinine Ratio 20, Glucose Level 172, Calcium Level 8.4, Corrected Calcium 9.0, Total Bilirubin 0.6, Aspartate Amino Transf (AST/SGOT) 19, Alanine Aminotransferase (ALT/SGPT) 9, Alkaline Phosphatase 69, Total Protein 6.4, Albumin 3.2 01/21/19 15:25: Glucometer 160 01/21/19 20:49: Glucometer 211 01/21/19 22:00: Glucometer 185 01/22/19 05:37: Glucometer 154 01/22/19 16:00: Glucometer 162 01/23/19 04:42: Glucometer 170 01/23/19 16:16: Glucometer 163 01/24/19 05:05: Glucometer 158 Discharge Home Medications: Active Scripts Active Enoxaparin Sodium 30 Mg/0.3 Ml Syringe 30 Mg SC Q12H Senna-Time S Tablet (Sennosides/Docusate Sodium) 1 Each Tablet 2 Ea PO BID Percocet 5-325 mg Tablet (Oxycodone HCl/Acetaminophen) 1 Each Tablet 1 Tab PO Q2HR PRN Aspirin EC (Aspirin) 81 Mg Tablet.dr 81 Mg PO DAILY Reported Warfarin Sodium 5 Mg Tablet 5 Mg PO HS Klor-Con 10 (Potassium Chloride) 10 Meq Tablet.er 10 Meq PO DAILY Donepezil HCl 10 Mg Tablet 10 Mg PO HS Klonopin (Clonazepam) 1 Mg Tablet 2 Mg PO HS PRN Amiodarone HCl 200 Mg Tablet 200 Mg PO BID Metformin HCl 500 Mg Tablet 1,000 Mg PO HS take 2 (500mg) tabs Hydrocodone-Acetamin 5-325 mg (Hydrocodone/Acetaminophen) 1 Each Tablet 1 Tab PO Q6H PRN Topiramate 50 Mg Tablet 50 Mg PO BID Lovastatin 20 Mg Tablet 20 Mg PO HS Paroxetine HCl 40 Mg Tablet 40 Mg PO DAILY Amlodipine Besylate 10 Mg Tablet 10 Mg PO DAILY Enalapril Maleate 5 Mg Tablet 5 Mg PO BID Clonidine HCl 0.2 Mg Tablet 0.2 Mg PO BID Metformin HCl 500 Mg Tablet 500 Mg PO DAILY Actos (Pioglitazone HCl) 30 Mg Tablet 30 Mg PO DAILY Klonopin (Clonazepam) 1 Mg Tablet 1 Mg PO BID PRN Instructions to patient/family Please see electronic discharge instructions given to patient. Diagnosis/Problems Diagnosis/Problems (1) Status post right knee replacement Status: Acute (2) Dementia Status: Chronic Qualifiers: Qualified Codes: F03.90 - Unspecified dementia without behavioral disturbance (3) Cellulitis, wound, post-operative Status: Acute (4) CAD (coronary artery disease), [place] coronary artery Status: Chronic Qualifiers: Qualified Codes: I25.10 - Atherosclerotic heart disease of [place] coronary artery without angina pectoris Permanent Comment: Cardiac Cath 2015 50-60% distal LAD stenosis 50-60% stenosis at proximal and mid RCA 50% circumflex stenosis followed by aneurysmal dilation EF 60% Elevated left end diastolic pressure Last Edited By: Olena Toussaint on Nov 04, 2017 20:39 (5) Concentric left ventricular hypertrophy Status: Chronic Permanent Comment: per echo, most recently 09/02/17 Last Edited By: Olena Toussaint on Nov 04, 2017 20:40 (6) Grade II diastolic dysfunction Status: Chronic (7) 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 (8) Chronic GERD Status: Chronic (9) Obesity (BMI 30-39.9) Status: Chronic (10) DVT prophylaxis Status: Acute (11) Hearing difficulty Status: Chronic (12) Osteoarthritis of right knee Status: Chronic (13) History of stroke Status: Chronic (14) Dyslipidemia Status: Chronic (15) Major depression, recurrent Status: Chronic (16) Pacemaker Status: Chronic Permanent Comment: placed in 2007 secondary to sick sinus syndrome; generator change 2015 Last Edited By: Olena Toussaint on Nov 04, 2017 20:37 (17) Chronic fatigue Status: Chronic (18) Sleep apnea Status: Chronic (19) Type II diabetes mellitus with complication Status: Chronic (20) Hypertension Status: Chronic (21) Hypoxia Status: Chronic (22) Arthritis Status: Chronic (23) Anxiety Status: Chronic (24) Insomnia Status: Chronic Qualifiers: Qualified Codes: F51.01 - 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 (25) Unable to ambulate Status: Acute (26) Fever Status: Acute Qualifiers: Qualified Codes: R50.9 - Fever, unspecified (27) Frequent falls Status: Acute Clinical Quality Measures DVT/VTE Risk/Contraindication: Risk Factor Score Per Nursin RFS Level Per Nursing on Admit: 4+=Very High DIYA ELDER DO Jan 24, 2019 09:03
[2019-01-24] MEDS: warFARin 5 MG (COUMADIN) TAB PO SCH (16:50)
[2019-01-24 17:35] VITALS: BP 158/65
--- NOTE | 2019-01-24 18:00 | NUR ---
ENOXAPRIN CALLED INTO [facility] ON [address] PER PT AND REQUEST SO THEY COULD OBTAIN MEDICATIN AND ADMINISTER IT THIS EVENING. PATIENT EDUCATED ON LOVENOX INJECTION TECHNIQUE AND DEMONSTRATED CORRECT RETURN OF EDUCATION TOPIC AND TECHNIQUE. REPORT GIVEN TO NETTIE RN WITH HOME [facility] @ [phone]. PATIENT EDUCATED ON NEW MEDICATION AND NARCOTICS. PATIENT AND STATE THEY UNDERSTAND NOT TO MIX NARCOTICS PRESCRIBED AND AT HOME AND ACCURATELY REPEAT UNDERSTANDING OF SEDATION, OVERDOSE. NATHAN BAKER demonstrates understanding of discharge instructions and accurately returns instructions upon questioning. Copy of Post-Discharge Instructions given to PATIENT. NATHNA BAKER is not able to manage continuing needs after discharge. HOME HEALTH CARE RN, PT AND OT ORDERED. Patients belongings returned to PATIENT. Patient discharged from [facility] on 01/24 at 1830. NATHAN BAKER left floor via WC, accompanied by .
--- NOTE | 2019-01-27 09:55 | Therapy Team Discharge Summary ---
Therapy Discharge Summary Discharge Recommendations Date of Discharge Jan 24, 2019 at 18:15 Occupational Therapy Pt admitted to ARU following right TKA. On admission pt required SBA with stanley oming and eating, mod assist with bathing, and max assist with toilet transfer. Skilled OT intervention focused on ADL training, transfers, and safety. Pt made good progress with therapy and by discharge is completing basic ADLs and transfers with modified independence. Pt met all OT LTG. Pt discharged home; DC ARU OT. Decreased Safety Aware, Impaired Self-Care Skills PT Afterschool Babysitter Goals Afterschool Babysitter Goals PT Afterschool Babysitter Goals Time Frame: Feb 06, 2019 Transfers (B,C,W/C) (FIM): 5 Roll Left to Right (QC): 4 Sit to Lying (QC): 4 Lying-Sitting on Side/Bed(QC): 4 Sit to Stand (QC): 4 Chair/Nqd-he-Dcpgo Xfer(QC): 4 Car Transfer (QC): 4 Gait (FIM): 2 Distance: 50' Walk 10 feet (QC): 4 Walk 10ft-Uneven Surface(QC): 4 Walk 50ft with 2 Turns (QC): 4 Gait Level of Assist: 5 Gait Assistive Device: FWW Stairs (FIM): 2 # of Steps: 4 1 Step (curb) (QC): 3 4 Steps (QC): 3 OT Afterschool Babysitter Goals Intermediate Goals Time Frame: Feb 06, 2019 Eating (FIM): 6 (met-01/23/19) Eating (QC): 6 (met-01/23/19) Oral Hygiene (QC): 6 (met-01/23/19) Grooming(FIM): 6 (met-01/23/19) Bathing(FIM): 5 (met-01/23/19) Shower/Bathe Self (QC): 4 (met-01/23/19) Upper Body Dressing(FIM): 5 (met-01/23/19) Upper Body Dressing (QC): 5 (met-01/23/19) Lower Body Dressing(FIM): 5 (met-01/23/19) Lower Body Dressing (QC): 5 (met-01/23/19) On/Off Footwear (QC): 5 (met-01/23/19) Toileting(FIM): 6 (met-01/23/19) Toileting Hygiene (QC): 6 (met-01/23/19) Toilet/Commode Transfer(FIM): 6 (met-01/23/19) Toilet/Commode Transfer (QC): 6 (met-01/23/19) Shower Transfer(FIM): 5 (met-01/23/19) Additional Goals: 1-Demonstrate ADL Tasks, 2-Verbalize Understanding, 3- ImproveStrength/Nilda 1=Demonstrate adherence to instructed precautions during ADL tasks. 2=Patient will verbalize/demonstrate understanding of assistive devices/modifications for ADL. 3=Patient will improve strength/tolerance for activity to enable patient to perform ADL's. JOSE ESCALANTE OT Jan 27, 2019 09:55
--- NOTE | 2019-01-27 10:13 | Therapy Team Discharge Summary ---
Therapy Discharge Summary Discharge Recommendations Date of Discharge Jan 24, 2019 at 18:15 Therapy D/C Recommendations: Physical Therapy Home Care Physical Therapy This patient was admitted to ARU post acute stay for an elective right TKA. Upon admission, he was mod assist with transfers, was only able to take a few steps and was unable to attempt stairs. Treatment has focused on functional strength and balance to promote transfers, gait, ROM and strength to allow him to return home. At [place], he was mod indep with transfers, gait and stairs. He has made excellent progress and has achieved all goals set at evaluation. Pt to discharge home with spouse with recommended [facility] PT to follow. [place] PT Occupational Therapy Decreased Safety Aware, Impaired Self-Care Skills PT Nursing Home Goals Nursing Home Goals PT Nursing Home Goals Time Frame: Feb 06, 2019 Transfers (B,C,W/C) (FIM): 5 (exceeded; scored a 6) Roll Left to Right (QC): 4 Sit to Lying (QC): 4 Lying-Sitting on Side/Bed(QC): 4 Sit to Stand (QC): 4 Chair/Ngc-lt-Mnljt Xfer(QC): 4 Car Transfer (QC): 4 Gait (FIM): 2 (exceeded, scored a 6) Distance: 50' Walk 10 feet (QC): 4 Walk 10ft-Uneven Surface(QC): 4 Walk 50ft with 2 Turns (QC): 4 Gait Level of Assist: 5 Gait Assistive Device: FWW Stairs (FIM): 2 (exceeded; scored a 5) # of Steps: 4 1 Step (curb) (QC): 3 4 Steps (QC): 3 OT Lift Builder Whole Goals Nursing Home Goals Time Frame: Feb 06, 2019 Eating (FIM): 6 (met-01/23/19) Eating (QC): 6 (met-01/23/19) Oral Hygiene (QC): 6 (met-01/23/19) Grooming(FIM): 6 (met-01/23/19) Bathing(FIM): 5 (met-01/23/19) Shower/Bathe Self (QC): 4 (met-01/23/19) Upper Body Dressing(FIM): 5 (met-01/23/19) Upper Body Dressing (QC): 5 (met-01/23/19) Lower Body Dressing(FIM): 5 (met-01/23/19) Lower Body Dressing (QC): 5 (met-01/23/19) On/Off Footwear (QC): 5 (met-01/23/19) Toileting(FIM): 6 (met-01/23/19) Toileting Hygiene (QC): 6 (met-01/23/19) Toilet/Commode Transfer(FIM): 6 (met-01/23/19) Toilet/Commode Transfer (QC): 6 (met-01/23/19) Shower Transfer(FIM): 5 (met-01/23/19) Additional Goals: 1-Demonstrate ADL Tasks, 2-Verbalize Understanding, 3- ImproveStrength/Nilda 1=Demonstrate adherence to instructed precautions during ADL tasks. 2=Patient will verbalize/demonstrate understanding of assistive dev ices/modifications for ADL. 3=Patient will improve strength/tolerance for activity to enable patient to perform ADL's. ANASTACIA GAMA PT Jan 27, 2019 10:13
== END 2019-01-24 18:15 | disposition home health service (06) | DRG 560 ==
PROVIDERS: ADMIT Internal Medicine; ATTEND Internal Medicine
DX: Z47.1 Aftercare following joint replacement surgery (principal); Z96.651 Presence of right artificial knee joint; T81.40XA Infection following a procedure, unspecified, initial encounter; L03.115 Cellulitis of right lower limb; F33.9 Major depressive disorder, recurrent, unspecified; I25.10 Atherosclerotic heart disease of native coronary artery without angina pectoris; I11.9 Hypertensive heart disease without heart failure; I51.7 Cardiomegaly; I48.91 Unspecified atrial fibrillation; I87.8 Other specified disorders of veins; K59.09 Other constipation; R53.81 Other malaise; F03.90 Unspecified dementia, unspecified severity, without behavioral disturbance, psychotic disturbance, mood disturbance, and anxiety; K21.9 Gastro-esophageal reflux disease without esophagitis; E66.9 Obesity, unspecified; E78.00 Pure hypercholesterolemia, unspecified; R53.82 Chronic fatigue, unspecified; G47.30 Sleep apnea, unspecified; E11.9 Type 2 diabetes mellitus without complications; R09.02 Hypoxemia; F41.9 Anxiety disorder, unspecified; F51.01 Primary insomnia; M54.9 Dorsalgia, unspecified; R29.6 Repeated falls; Z95.0 Presence of cardiac pacemaker; Z86.73 Personal history of transient ischemic attack (TIA), and cerebral infarction without residual deficits; Z68.33 Body mass index [BMI] 33.0-33.9, adult
CPT/HCPCS: 36415; 71046; 80053; 81000; 82962; 83605; 85007; 85025; 85027; 87088

== ENCOUNTER 2019-04-01 14:41 | Outpatient (RCR) | payer MEDICARE, OTHER ==
[~2019-04-01 14:41] MED LIST changes: +ASPI-983 PO; +ENOX30DI4 SC; +SENN-20 PO
== END 2019-05-04 11:32 | disposition home or self-care (01) ==
PROVIDERS: ATTEND Orthopaedic Surgery
DX: M17.11 Unilateral primary osteoarthritis, right knee (principal); M25.461 Effusion, right knee; R26.9 Unspecified abnormalities of gait and mobility; Z96.651 Presence of right artificial knee joint

== ENCOUNTER 2019-12-27 08:53 | Observation (INO) | payer MEDICARE ==
[~2019-12-27] VITALS: Ht 172.7 cm; Wt 87.4 kg
[~2019-12-27 08:53] MED LIST changes: +ACHD5005 PO; +ENLP5T PO; -HYDR-3812 PO; -METO-370 PO; +METO50TA7 PO
--- NOTE | 2019-12-27 09:20 | NUR ---
Spoke with via phone regarding plan of care.
--- NOTE | 2019-12-27 09:35 | ED Fall/Injury ---
General Chief Complaint: Trauma-Non Activation Stated Complaint: FALL Nursing Triage Note: Pt to ED via EMS for fall. EMS reports pt was found outside face down on the ground. Unknown how long pt was on the ground. EMS reports pt had another fall earlier in the week. EMS c/o R knee pain, scrotal pain and laceration to R eye, swelling and abrasion to R cheek. Pt denies LOC. Pt arrived to ED in c-collar. Source: patient Exam Limitations: no limitations History of Present Illness Date Seen by Provider: Dec 27, 2019 Time Seen by Provider: 09:00 Initial Comments Patient presents to ER by EMS with chief complaint that he was found down by family face down on the ground. His been having a lot of increased falls in the last few weeks. He's having complaints of pain in his right knee and a minor abrasion and hematoma to his right forehead and parietal scalp. Patient has worsening dementia according to his spouse and has no other complaints of dysuria shortness of breath cough fever chills nausea vomiting diarrhea. He is not aware of all of his medical problems are medicines but he knows he sees Dr. Fairbanks and is on a blood thinner, Xarelto as well as follows with Ajay Gonzales. He does not recall the events leading up to his fall. He thinks that he tripped on some grass. No memory of syncope or losing consciousness. Location Injury Occurred: outside home Allergies and Home Medications Allergies Coded Allergies: Sulfa (Sulfonamide Antibiotics) (Verified Allergy, Unknown, 01/14/19) Home Medications Amiodarone HCl 200 Mg Tablet, 200 MG PO BID, (Reported) Amlodipine Besylate 10 Mg Tablet, 10 MG PO DAILY, (Reported) Aspirin 81 Mg Tablet., 81 MG PO DAILY Prescribed by: DIYA ELDER on 01/23/19 1206 Clonazepam 1 Mg Tablet, 1 MG PO BID PRN for ANXIETY, (Reported) Clonazepam 1 Mg Tablet, 2 MG PO HS PRN for ANXIETY, (Reported) Clonidine HCl 0.2 Mg Tablet, 0.2 MG PO BID, (Reported) Donepezil HCl 10 Mg Tablet, 10 MG PO HS, (Reported) Enalapril Maleate 5 Mg Tablet, 5 MG PO BID, (Reported) Enoxaparin Sodium 30 Mg/0.3 Ml Syringe, 30 MG SC Q12H Prescribed by: DIYA ELDER on 01/23/19 1206 Hydrocodone Bit/Acetaminophen 1 Each Tablet, 1 TAB PO Q6H PRN for PAIN-MODERATE, (Reported) Lovastatin 20 Mg Tablet, 20 MG PO HS, (Reported) Metformin HCl 500 Mg Tablet, 500 MG PO DAILY, (Reported) Metformin HCl 500 Mg Tablet, 1,000 MG PO HS, (Reported) take 2 (500mg) tabs Oxycodone HCl/Acetaminophen 1 Each Tablet, 1 TAB PO Q2HR PRN for PAIN-MODERATE Prescribed by: DIYA ELDER on 01/23/19 1206 Paroxetine HCl 40 Mg Tablet, 40 MG PO DAILY, (Reported) Pioglitazone HCl 30 Mg Tablet, 30 MG PO DAILY, (Reported) Potassium Chloride 10 Meq Tablet.er, 10 MEQ PO DAILY, (Reported) Sennosides/Docusate Sodium 1 Each Tablet, 2 EA PO BID Prescribed by: DIYA ELDER on 01/23/19 120 Topiramate 50 Mg Tablet, 50 MG PO BID, (Reported) Warfarin Sodium 5 Mg Tablet, 5 MG PO HS, (Reported) Patient Home Medication List Home Medication List Reviewed: Yes Review of Systems Review of Systems Constitutional: No chills, No diaphoresis Eyes: Denies Blindness, Denies Blurred Vision Ears, Nose, Mouth, Throat: denies ear pain, denies ear discharge Respiratory: No cough, No short of breath Cardiovascular: No chest pain, No edema Gastrointestinal: No abdominal pain, No constipation, No diarrhea, No nausea, No vomiting Musculoskeletal: No back pain, No joint pain All Other Systems Reviewed Negative Unless Noted: Yes Past Eieggnu-Tksmgw-Sdcrmv Hx Patient Social History Alcohol Use: Rarely Uses Recreational Drug Use: No Smoking Status: Former Smoker 2nd Hand Smoke Exposure: No Recent Foreign Travel: No Contact w/Someone Who Travel: No Recent Infectious Disease Expo: No Recent Hopitalizations: No Immunizations Up To Date Tetanus Booster (TDap): Unknown PED Vaccines UTD: Yes Date of Pneumonia Vaccine: Jan 22, 2008 Date of Influenza Vaccine: Mar 10, 2018 Seasonal Allergies Seasonal Allergies: No Past Medical History Surgeries: Yes (fatty tumor removed, R shoulder, ) Orthopedic, Pacemaker Respiratory: Yes Sleep Apnea Currently Using CPAP: No Currently Using BIPAP: No Cardiac: Yes (meditronic PACEMAKER) Atrial Fibrillation, High Cholesterol, Hypertension Neurological: Yes Dementia, Stroke Reproductive Disorders: No Sexually Transmitted Disease: No Genitourinary: Yes Kidney Stones Gastrointestinal: No Chronic Constipation Musculoskeletal: No (R knee osteoarthritis) Arthritis, Chronic Back Pain Endocrine: Yes Diabetes, Non-Insulin dep HEENT: No Cancer: No Psychosocial: Yes Anxiety, Depression Integumentary: No Blood Disorders: No Adverse Reaction/Blood Tranf: No Family Medical History Cardiovascular disease 19 MOTHER No Pertinent Family Hx Physical Exam Vital Signs Vital Signs - First Documented 12/27/19 08:55 Temp 36.8 Pulse 65 Resp 18 B/P (MAP) 111/65 (80) Pulse Ox 95 O2 Delivery Room Air Capillary Refill : Less Than 3 Seconds Height, Weight, BMI Height: 5'8.50" Weight: 223lbs. 4.0oz. [id number]; 27.00 BMI Method:Stated General Appearance: WD/WN, no apparent distress HEENT: PERRL/EOMI, pharynx normal, other (superficial abrasions over the right parietal and frontal scalp with moderate hematoma) Neck: non-tender, normal inspection, other (c-collar in place) Cardiovascular: normal peripheral pulses, regular rate, rhythm, no edema Respiratory: chest non-tender, lungs clear, normal breath sounds, no respiratory distress, no accessory muscle use Peripheral Pulses: 2+ Dorsalis Pedis (R), 2+ Left Dors-Pedis (L), 2+ Radial Pulses (R), 2+ Radial Pulses (L) Gastrointestinal: normal bowel sounds, non tender, soft, no organomegaly Back: normal inspection, no vertebral tenderness Extremities: normal range of motion, non-tender, normal capillary refill Neurologic/Psychiatric: stock repairer II-XII nml as tested, no motor/sensory deficits, alert, normal mood/affect, other (oriented to person and place but not necessarily time) Skin: normal color, warm/dry, other (multiple superficial abrasions on all 4 extremities as well as an old ecchymoses on the right parietal scalp in various states of healing. Some are dressed with Band-Aids.) Jaren Coma Score Best Eye Response: (4) Open Spontaneously Best Verbal Response: (5) Oriented Best Motor Response: (6) Obeys Commands Jaren Total: 15 Progress/Results/Core Measures Results/Orders Lab Results Laboratory Tests Test 12/27/19 09:40 12/27/19 09:50 Range/Units White Blood Count 13.2 H 4.3-11.0 10^3/uL Red Blood Count 4.89 4.35-5.85 10^6/uL Hemoglobin 13.9 13.3-17.7 G/DL Hematocrit 44 40-54 % Mean Corpuscular Volume 90 80-99 FL Mean Corpuscular Hemoglobin 28 25-34 PG Mean Corpuscular Hemoglobin Concent 31 L 32-36 G/DL Red Cell Distribution Width 17.8 H 10.0-14.5 % Platelet Count 221 130-400 10^3/uL Mean Platelet Volume 10.8 H 7.4-10.4 FL Prothrombin Time 21.0 H 12.2-14.7 SEC INR Comment 1.8 H 0.8-1.4 Activated Partial Thromboplast Time 41 H 24-35 SEC Sodium Level 141 135-145 MMOL/L Potassium Level 4.7 3.6-5.0 MMOL/L Chloride Level 111 H 98-107 MMOL/L Carbon Dioxide Level 18 L 21-32 MMOL/L Anion Gap 12 5-14 MMOL/L Blood Urea Nitrogen 38 H 7-18 MG/DL Creatinine 1.31 H 0.60-1.30 MG/DL Estimat Glomerular Filtration Rate 53 BUN/Creatinine Ratio 29 Glucose Level 116 H 70-105 MG/DL Calcium Level 9.4 8.5-10.1 MG/DL Total Bilirubin 0.3 0.1-1.0 MG/DL Direct Bilirubin 0.2 0.0-0.3 MG/DL Indirect Bilirubin 0.1 MG/DL Aspartate Amino Transf (AST/SGOT) 18 5-34 U/L Alanine Aminotransferase (ALT/SGPT) 16 0-55 U/L Alkaline Phosphatase 78 40-136 U/L Total Creatine Kinase 42 30-200 U/L Total Protein 7.1 6.4-8.2 GM/DL Albumin 3.9 3.2-4.5 GM/DL Serum Alcohol < 10 <10 MG/DL Urine Color YELLOW Urine Clarity CLEAR Urine pH 5.0 5-9 Urine Specific [place] 1.020 1.016-1.022 Urine Protein NEGATIVE NEGATIVE Urine Glucose (UA) NEGATIVE NEGATIVE Urine Ketones NEGATIVE NEGATIVE Urine Nitrite NEGATIVE NEGATIVE Urine Bilirubin NEGATIVE NEGATIVE Urine Urobilinogen 0.2 < = 1.0 MG/DL Urine Leukocyte Esterase NEGATIVE NEGATIVE Urine RBC (Auto) NEGATIVE NEGATIVE Urine RBC NONE /HPF Urine WBC 0-2 /HPF Urine Squamous Epithelial Cells 0-2 /HPF Urine Crystals NONE /LPF Urine Bacteria NEGATIVE /HPF Urine Casts NONE /LPF Urine Mucus NEGATIVE /LPF Urine Culture Indicated NO My Orders Orders - DOUGLAS HERNANDEZ Ct Head/Cervical Spine Wo (12/27/19 09:26) Ed Iv/Invasive Line Start (12/27/19 09:26) Cbc No Diff (12/27/19:) Basic Metabolic Panel (12/27/19) Liver Panel (12/27/19) Alcohol (12/27/19:) Ua Culture If Indicated (12/27/19) Chest 1 View, Ap/Pa Only (12/27/19) Ekg Tracing (12/27/19) Monitor-Rhythm Ecg Trace Only (12/27/19) Ed Iv/Invasive Line Start (12/27/19:) Knee, Right, 3 Views (12/27/19:) Creatine Kinase (12/27/19 10:18) Protime With Inr (12/27/19 10:22) Partial Thromboplastin Time (12/27/19 10:22) Ed Iv/Invasive Line Start (12/27/19 10:22) Ns Iv 1000 Ml (Sodium Chloride 0.9%) (12/27/19 10:22) Vital Signs/I&O 12/27/19 08:55 Temp 36.8 Pulse 65 Resp 18 B/P (MAP) 111/65 (80) Pulse Ox 95 O2 Delivery Room Air Blood Pressure Mean: 80 Progress Progress Note #1: Time: 09:36 Progress Note Plan to get a CT scan of the head and cervical spine. Because he is on Xarelto having lots of falls we did activate this as a level II trauma. It's difficult to totally assess his neurologic status. He does not seem to have any motor or sensory deficits however his dementia may mask some executive function deficits so we'll get the scan and discuss a 24 hour observation with him. We'll check some labs and urine to rule out bladder infection or other anemias or, electrolyte disorders, dehydration etc. Progress Note #2: Time: 11:30 Progress Note Discussed the case with the patient and the Krystal over the phone. She would like him to work on placement. She says she's been trying to get him to go somewhere for some time because of his advancing dementia. He does not know day from night and gets very frustrated. He refuses to use assistive devices and has multiple falls. Discussed the plan with the patient and he agrees to stay overnight and work with dialysis social worker. The patient will be observed overnight percent to his fall risks, advancing dementia and caregiver/ inability to continue to care for him at home. His observation is not directly related to the trauma of a fall. We did discuss this with the trauma surgeon and he agrees. Initial ECG Impression Date: Dec 27, 2019 Initial ECG Impression Time: 09:46 Initial ECG Rate: 60 Initial ECG Intervals: HI (284) Initial ECG Impression: Nonspecific Changes Comment Paced rhythm with no clinically relevant ST changes. Right bundle branch block. Diagnostic Imaging Diagonstic Imaging: Xray Plain Films/CT/US/NM/MRI: chest [facility] [place] [place] [facility] REC[facility] [id number] PT STATUS: REG ER : 1945 PHYSICIAN: DOUGLAS HERNANDEZ MD ADMIT DATE: 12/27/19/ER Signed Date of Exam:12/27/19 CHEST 1 VIEW, AP/PA ONLY HISTORY: Trauma, found down COMPARISON: 01/17/2019 TECHNIQUE: Frontal view the chest FINDINGS: Lung volumes are normal. No focal consolidation is seen. There is no pleural effusion or pneumothorax. The cardiac silhouette is normal in size. Left-sided pacemaker leads appear normal. A right shoulder arthroplasty is noted. There is severe degenerative change in the left shoulder. IMPRESSION: 1. No acute pulmonary abnormality seen. Dictated by: Dictated on workstation # [id number] Dict: 12/27/19 1026 Trans: 12/27/19 1048 [facility] [id number] Interpreted by: ERMA JACOBSON MD Electronically signed by: ERMA JACOBSON MD 12/27/19 1048 Reviewed: Reviewed by Me Diagonstic Imaging: Xray Plain Films/CT/US/NM/MRI: knee (r) Comments [facility] [place], [place] NAME: NATHAN BAKER [facility] REC#: [id number] PT STATUS: REG ER : 1945 PHYSICIAN: DOUGLAS HERNANDEZ MD ADMIT DATE: 12/27/19/ER Signed Date of Exam:12/27/19 KNEE, RIGHT, 3 VIEWS HISTORY: Found down, right knee pain TECHNIQUE: 3 views of the right knee COMPARISON: 01/14/2019 FINDINGS: There is a total right knee arthroplasty. No hardware complication is seen. There is a small right knee joint effusion. No acute fracture is seen in the right knee. Alignment appears normal. IMPRESSION: 1. Right knee arthroplasty without hardware complication or acute osseous abnormalities seen. There is a small right knee joint effusion. Dictated by: Dictated on workstation # [id number] Dict: 12/27/19 1028 Trans: 12/27/19 1048 [facility] [id number] Interpreted by: ERMA JACOBSON MD Electronically signed by: ERMA JACOBSON MD 12/27/19 1048 Reviewed: Reviewed by Nd Diagonstic Imaging: CT Plain Films/CT/US/NM/MRI: c-spine, head Comments NAME: NATHAN BAKER [facility] REC#: [id number] PT STATUS: REG ER : 1945 PHYSICIAN: DOUGLAS HERNANDEZ MD ADMIT DATE: 12/27/19/ER Draft Date of Exam:12/27/19 CT HEAD/CERVICAL SPINE WO PROCEDURE: CT head and CT cervical spine without contrast. TECHNIQUE: Multiple contiguous axial images were obtained through the brain and cervical spine without the use of intravenous contrast. Sagittal and coronal reformations through the cervical spine were then performed. Auto Exposure Controls were utilized during the CT exam to meet ALARA standards for radiation dose reduction. INDICATION: Fall. Facial injuries. COMPARISON: CT head and cervical spine without contrast 04/28/2018. FINDINGS: CT HEAD: Chronic infarct in the right temporal occipital region. Chronic lacunar infarct in the left basal ganglia and posterior right frontal lobe. No CT evidence of acute territorial infarction. No intracranial hemorrhage, mass effect, hydrocephalus or extra-axial fluid collections. Laceration overlying the right orbit. Osseous structures are intact. Mild mucosal thickening in the floor of the right maxillary sinus. The mastoids are clear. CT cervical spine: Normal alignment. Vertebral body heights preserved. No fractures. Moderate degenerative endplate changes are greatest at C6-T1. No evidence of high-grade spinal canal stenosis on soft tissue windows. Mild atherosclerotic calcifications in the carotid bifurcations. The lung apices are clear. IMPRESSION: 1. No acute intracranial or cervical spine CT findings. 2. Multiple chronic infarcts, the largest in the right temporal occipital region. 3. Laceration overlying the right orbit. No underlying fractures. Dictated on workstation # [id number] Dict: 12/27/19 1032 Trans: 12/27/19 1053 [facility] [id number] Interpreted by: ARIAS SIFUENTES MD Electronically signed by: Reviewed: Reviewed by Me Consults : Consulting Physician: MONTY DIAZ DO Consults Notes 1115: Discussed the case with Dr. Diaz and he agrees to consult on the case from a trauma standpoint but the patient is not being observed overnight for trauma rather for placement due to repetitive falls, advancing dementia and regression of activities of daily living. Departure Communication (Admissions) Time/Spoke to Admitting Phy: 11:15 Discussed the case with Dr. Beasley. He does not desire surgical consult trauma at this time. He would like us to consult dialysis social worker first thing in the morning looking for placement. He agrees to observe the patient. Impression Primary Impression: Fall Qualified Codes: W19.XXXA - Unspecified fall, initial encounter Additional Impressions: Hematoma Abrasion head Abrasion hip/leg Right knee pain Qualified Codes: M25.561 - Pain in right knee Dementia Qualified Codes: G30.9 - Alzheimer's disease, unspecified; F02.80 - Dementia in other diseases classified elsewhere without behavioral disturbance Disposition: ADMITTED INPATIENT Condition: Stable Admissions Decision to Admit Reason: Admit from ER (General) (not admitted related to the trauma) Decision to Admit/Date: Dec 27, 2019 Time/Decision to Admit Time: 11:00 Departure-Patient Inst. Referrals: MARLEY GONZALES (PCP) Primary Care Physician DOUGLAS HERNANDEZ Dec 27, 2019 09:34
[2019-12-27 09:57] LABS: HEMOGLOBIN 13.9 G/DL (13.3-17.7); MEAN PLATELET VOLUME 10.8 FL (7.4-10.4); RED CELL DISTRIBUTION WIDTH 17.8 % (10.0-14.5); WHITE BLOOD COUNT 13.2 10^3/uL (4.3-11.0)
[2019-12-27 10:03] LABS: BILIRUBIN,URINE NEGATIVE (NEGATIVE); CLARITY,URINE CLEAR; COLOR,URINE YELLOW; GLUCOSE, URINE (UA) NEGATIVE (NEGATIVE); KETONES,URINE NEGATIVE (NEGATIVE); LEUKOCYTE ESTERASE ,URINE NEGATIVE (NEGATIVE); NITRITE,URINE NEGATIVE (NEGATIVE); PROTEIN,URINE NEGATIVE (NEGATIVE)
[2019-12-27 10:14] LABS: ALANINE AMINOTRANSFERASE 16 U/L (0-55); ALBUMIN 3.9 GM/DL (3.2-4.5); ALKALINE PHOSPHATASE 78 U/L (40-136); BILIRUBIN,DIRECT 0.2 MG/DL (0.0-0.3); BILIRUBIN,INDIRECT 0.1 MG/DL; BILIRUBIN,TOTAL 0.3 MG/DL (0.1-1.0); BUN/CREATININE RATIO 29; CALCIUM 9.4 MG/DL (8.5-10.1); CARBON DIOXIDE 18 MMOL/L (21-32); CHLORIDE 111 MMOL/L (98-107); CREATININE SERUM 1.31 MG/DL (0.60-1.30); GFR ESTIMATED 53; GLUCOSE 116 MG/DL (70-105); POTASSIUM 4.7 MMOL/L (3.6-5.0); SODIUM 141 MMOL/L (135-145); TOTAL PROTEIN 7.1 GM/DL (6.4-8.2)
[2019-12-27 10:18] LABS: BACTERIA,URINE NEGATIVE /HPF; SQUAMOUS EPITHELIAL CELL,UR 0-2 /HPF; WBC,URINE 0-2 /HPF
[2019-12-27] MEDS ORDERED: NS IV 1000 ML 1,000 ML IV SCH (10:22)
--- NOTE | 2019-12-27 10:32 | Diagnostic Imaging Report ---
HISTORY: Trauma, found down COMPARISON: 01/17/2019 TECHNIQUE: Frontal view the chest FINDINGS: Lung volumes are normal. No focal consolidation is seen. There is no pleural effusion or pneumothorax. The cardiac silhouette is normal in size. Left-sided pacemaker leads appear normal. A right shoulder arthroplasty is noted. There is severe degenerative change in the left shoulder. IMPRESSION: 1. No acute pulmonary abnormality seen. Dictated by: Dictated on workstation # [id number]
[2019-12-27 10:35] LABS: INR 1.8 (0.8-1.4)
--- NOTE | 2019-12-27 10:35 | Diagnostic Imaging Report ---
HISTORY: Found down, right knee pain TECHNIQUE: 3 views of the right knee COMPARISON: 01/14/2019 FINDINGS: There is a total right knee arthroplasty. No hardware complication is seen. There is a small right knee joint effusion. No acute fracture is seen in the right knee. Alignment appears normal. IMPRESSION: 1. Right knee arthroplasty without hardware complication or acute osseous abnormalities seen. There is a small right knee joint effusion. Dictated by: Dictated on workstation # [id number]
--- NOTE | 2019-12-27 10:40 | NUR ---
Spoke with pt's for update. Pt was also concerned about earring and necklace. Pt did not arrive to ED with any jewelry. reports EMS removed and left at home.
--- NOTE | 2019-12-27 10:54 | Diagnostic Imaging Report ---
PROCEDURE: CT head and CT cervical spine without contrast. TECHNIQUE: Multiple contiguous axial images were obtained through the brain and cervical spine without the use of intravenous contrast. Sagittal and coronal reformations through the cervical spine were then performed. Auto Exposure Controls were utilized during the CT exam to meet ALARA standards for radiation dose reduction. INDICATION: Fall. Facial injuries. COMPARISON: CT head and cervical spine without contrast 04/28/2018. FINDINGS: CT HEAD: Chronic infarct in the right temporal occipital region. Chronic lacunar infarct in the left basal ganglia and posterior right frontal lobe. No CT evidence of acute territorial infarction. No intracranial hemorrhage, mass effect, hydrocephalus or extra-axial fluid collections. Laceration overlying the right orbit. Osseous structures are intact. Mild mucosal thickening in the floor of the right maxillary sinus. The mastoids are clear. CT cervical spine: Normal alignment. Vertebral body heights preserved. No fractures. Moderate degenerative endplate changes are greatest at C6-T1. No evidence of high-grade spinal canal stenosis on soft tissue windows. Mild atherosclerotic calcifications in the carotid bifurcations. The lung apices are clear. IMPRESSION: 1. No acute intracranial or cervical spine CT findings. 2. Multiple chronic infarcts, the largest in the right temporal occipital region. 3. Laceration overlying the right orbit. No underlying fractures. Dictated by: Dictated on workstation # [id number]
--- NOTE | 2019-12-27 11:06 | NUR ---
C-collar removed at this time per Dr. Forman.
--- NOTE | 2019-12-27 11:19 | NUR ---
Pt's head lac dressed with xeroform, guaze pads, and coban.
--- NOTE | 2019-12-27 11:20 | NUR ---
Dr. Forman on the phone with pt's regarding plan to admit.
[2019-12-27 12:20] VITALS: BP 149/73
[2019-12-27] MEDS ORDERED: ONDANSETRON 4 MG/2 ML (SDV) Z0FRAN IV PRN (12:45)
[2019-12-27] MEDS ORDERED: ACETAMINOPHEN 500 MG TAB (TYLENOL) PO PRN (12:45)
[2019-12-27] MEDS: 1/2 NS IV SOLUTION 1,000 ML IV SCH ×2 (13:15→23:18)
--- NOTE | 2019-12-27 13:15 | NUR ---
NATHAN BAKER admitted to room 408-1, with an admitting diagnosis of falls, dementia,long-term placement, on 12/27/19 from ED via stretcher, accompanied by staff.NATHAN BAKER introduced to surroundings, call light, bed controls, phone, TV, temperature control, lights, meal times, smoking policy, visitor policy, side rail policy, bathrooms and showers. Patient Rights given to patient in the handbook. NATHAN BAKER verbalizes understanding that [facility] is not responsible for the loss or damage to any personal effects or valuables that are kept in the patients posession during their hospitalization. NATHAN BAKER verbalizes understanding of Interdisciplinary Patient Education. Patient and/or family were informed about the Rapid Response Team and its purpose.
--- NOTE | 2019-12-27 14:54 | NUR ---
This RN notified Dr. Beasley of Patients DVT score of 2. DR instructed this RN to document that anticoagulants and SCDS will be contraindicate due to falls and dementia
[2019-12-27 16:00] VITALS: BP 150/69
[2019-12-27] MEDS: inSUlin ASPART (NovoLOG) 1 UNIT/0.01 ML (CHARGE PER UNIT) SC SCH (16:18)
[2019-12-27 19:44] VITALS: BP 123/59
[2019-12-27 23:17] VITALS: BP 138/64
[2019-12-28] MEDS: inSUlin ASPART (NovoLOG) 1 UNIT/0.01 ML (CHARGE PER UNIT) SC SCH ×3 (00:11→11:00)
[2019-12-28 04:36] VITALS: BP 133/67
[2019-12-28 04:59] LABS: BASOPHILS % (AUTO) 0 % (0-10); EOSINOPHILS # (AUTO) 0.1 10^3/uL (0.0-0.3); EOSINOPHILS % (AUTO) 1 % (0-10); HEMATOCRIT 41 % (40-54); LYMPHOCYTES % (AUTO) 17 % (12-44); MEAN CORPUSCULAR HEMOGLOBIN 29 PG (25-34); MEAN CORPUSCULAR HGB CONC 32 G/DL (32-36); MEAN CORPUSCULAR VOLUME 90 FL (80-99); MEAN PLATELET VOLUME 11.4 FL (7.4-10.4); MONOCYTES # (AUTO) 0.8 X 10^3 (0.0-1.0); MONOCYTES % (AUTO) 7 % (0-12); NEUTROPHILS % (AUTO) 76 % (42-75); PLATELET COUNT 222 10^3/uL (130-400); RED CELL DISTRIBUTION WIDTH 17.3 % (10.0-14.5); WHITE BLOOD COUNT 11.9 10^3/uL (4.3-11.0)
[2019-12-28 05:25] LABS: CALCIUM 8.5 MG/DL (8.5-10.1); CREATININE SERUM 1.27 MG/DL (0.60-1.30); POTASSIUM 4.3 MMOL/L (3.6-5.0)
[2019-12-28] MEDS: 1/2 NS IV SOLUTION 1,000 ML IV SCH (07:41)
[2019-12-28 08:00] VITALS: BP 144/73
--- NOTE | 2019-12-28 09:32 | Physical Therapy Evaluation ---
PT Evaluation-General Medical Diagnosis Admission Date Dec 27, 2019 at 11:15 Medical Diagnosis: fall Onset Date: Dec 27, 2019 Therapy Diagnosis Therapy Diagnosis: impaired mobility/decreased strength Height/Weight Height (Feet): 5 Height (Inches): 8.50 Weight (Pounds): 223 Weight (Ounces): 4.0 Precautions Precautions/Isolations: Fall Prevention, Standard Precautions Referral Physician: Yulisa Reason for Referral: Evaluation/Treatment Medical History Pertinent Medical History: CAD, CVA, DM, Dementia, HTN Current History EMS, family found patient face down outside (per patient he tripped on the grass) Reviewed History: Yes Social History Home: Single Level Current Living Status: Spouse Prior Prior Level of Function SCALE: Activities may be completed with or without assistive devices. 7-Pjvfdgfpxk-haqmrtu completes the activity by him/herself with no assistance from a helper. 5-Set-up or Clean-up Assistance-helper sets up or cleans up; patient completes activity. [place] assists only prior to or following the activity. 4-Supervision or Touching Assistance-helper provides verbal cues and/or touching/steadying and/or contact guard assistance as patient completes activity. Assistance may be provided throughout the activity or intermittently. 3-Partial/Moderate Assistance-helper does LESS THAN HALF the effort. [place] lifts, holds or supports trunk or limbs, but provides less than half the effort. 2-Substantial/Maximal Assistance-helper does MORE THAN HALF the effort. [place] lifts or holds trunk or limbs and provides more than half the effort. 7-Jcpjawnyt-yqxnuq does ALL the effort. Patient does none of the effort to complete the activity. Or, the assistance of 2 or more helpers is required for the patient to complete the activity. If activity was not attempted, code reason: 7-Patient Refused. 9-Not Applicable-not attempted and the patient did not perform the activity before the current illness, exacerbation or injury. 10-Not Attempted due to Environmental Limitations-(lack of equipment, weather restraints, etc.). 88-Not Attempted due to Medical Conditions or Safety Concerns. Bed Mobility: 6 Transfers (B,C,W/C): 6 Gait: 6 Stairs: 6 Indoor Mobility (Ambulation): Independent Stairs: Independent Prior Devices Use: None, Walker spouse reports patient has not been using FWW PT Evaluation-Current Subjective Patient agrees to PT. Objective Patient Orientation: Person, Confused, Situation ROM/Strength ROM Lower Extremities bilateral LE WFL Strength Lower Extremities 4-/5 grossly bilateral LE Integumentary/Posture Integumentary refer to nursing notes Bowel Incontinence: No Bladder Incontinence: No Posture WFL Neuromuscular (Tone, Coordination, Reflexes) grossly intact Sensory Vision: Wears Glasses Hearing: Functional Sensation Right Lower Extremit: Intact Sensation Left Lower Extremity: Intact Transfers Roll Left to Right (QC): 5 Sit to Lying (QC): 5 Lying to Sitting/Side of Bed(Q: 5 Sit to Stand (QC): 4 Chair/Dcl-ko-Odfvh Xfer(QC): 4 Toilet Transfer (QC): 4 CGA for safety Gait Does the Patient Walk?: Yes Mode of Locomotion: Walk Anticipated Mode of Locomotion: Walk Walk 10 feet (QC): 5 Walk 50 ft with 2 Turns(QC): 5 Walk 150 ft (QC): 5 Distance: 400' Gait Assistive Device: FWW Comments/Gait Description safe and functional with FWW Balance Sitting Static: Normal Sitting Dynamic: Normal Standing Static: Normal Standing Dynamic: Normal Treatment patient is very impulsive and has diminished safety awareness Assessment/Needs 74 y.o. male, will benefit from short term skilled PT to address functional strength and mobility to improve current LOF to safely return to home or care facility at maximum LOF. 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 Heavy Duty Diesel Mechanic Goals PT Heavy Duty Diesel Mechanic Goals Time Frame: Jan 04, 2020 Roll Left & Right (QC): 6 Sit to Lying (QC): 6 Lying-Sitting on Side/Bed(QC): 6 Sit to Stand (QC): 6 Chair/Zed-qo-Cxwub Xfer(QC): 6 Toilet Transfer (QC): 6 Car Transfer (QC): 6 Does the Patient Walk: Yes Walk 10 feet (QC): 6 Walk 50ft with 2 Turns (QC): 6 Walk 150 ft (QC): 6 Walking 10ft on Uneven Surface: 6 1 Step (curb) (QC): 6 PT Plan Problem List Problem List: Activity Tolerance, Safety, Gait, Transfer, Bed Mobility Treatment/Plan Treatment Plan: Continue Plan of Care Treatment Plan: Bed Mobility, Education, Functional Activity Nilda, Functional Strength, Gait, Safety, Therapeutic Exercise, Transfers Treatment Duration: Jan 04, 2020 Frequency: 6 times per week Estimated Hrs Per Day: .25 hour per day Patient and/or Family Agrees t: Yes Time/GCodes Time In: 812 Time Out: 832 Total Billed Treatment Time: 20 [facility]A HUSTON PT Dec 28, 2019 09:32
[2019-12-28] MEDS ORDERED: HYDR-4226 PO (09:59)
[2019-12-28] MEDS ORDERED: RIVA20TA PO (09:59)
--- NOTE | 2019-12-28 10:02 | Short Stay Summary-Hospitalist ---
CALEBRORY MED STUDENT 12/28/19 1002: History of Present Illness HPI/Chief Complaint CC:closed head injury, cervical strain HPI: Pt presented to ER after fall at home. pt stated that he was walking his dog on the sidewalk and his shoe caught on the trim and he fell down. Pt's and kids found him on the ground and brought him to ER. Source: patient Exam Limitations: no limitations Date Seen 12/28/19 Time Seen by a Provider: 09:30 Attending Physician Isiah Beasley MD PCP Deleted Referring Physician MONTY DIAZ DO Date of Admission Dec 27, 2019 at 11:15 Home Medications & Allergies Home Medications Reviewed patient Home Medication Reconciliation performed by pharmacy medication reconciliations pc network technician and/or nursing. Patients Allergies have been reviewed. 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 Immunizations Up To Date Tetanus Booster (TDap): Unknown Pediatric: Yes Date of Pneumonia Vaccine: Jan 22, 2008 Date of Influenza Vaccine: Mar 10, 2018 Seasonal Allergies Seasonal Allergies: No Past Medical History Surgeries: Orthopedic (Right knee replacement ), Pacemaker Respiratory: Sleep Apnea Currently Using CPAP: No Currently Using BIPAP: No Cardiac: Atrial Fibrillation, High Cholesterol, Hypertension Neurological: Dementia, Stroke Reproductive: No Sexually Transmitted Disease: No Genitourinary: Kidney Stones Gastrointestinal: Chronic Constipation Musculoskeletal: Arthritis, Chronic Back Pain Endocrine: Diabetes, Non-Insulin dep Psychosocial: Anxiety, Depression History of Blood Disorders: No Adverse Reaction to Blood Zimmerman: No Family History Cardiovascular disease 19 MOTHER No Pertinent Family Hx Review of Systems Constitutional: No chills, No dizziness, No fever EENTM: no symptoms reported Respiratory: no symptoms reported Cardiovascular: no symptoms reported Gastrointestinal: no symptoms reported Physical Exam Physical Exam Vital Signs Vital Signs - First Documented 12/27/19 08:55 Temp 36.8 Pulse 65 Resp 18 B/P (MAP) 111/65 (80) Pulse Ox 95 O2 Delivery Room Air Capillary Refill : Less Than 3 Seconds Height, Weight, BMI Height: 5'8.50" Weight: 223lbs. 4.0oz. [id number]; 29.30 BMI Method:Stated General Appearance: No Apparent Distress Eyes: Right Eye Lid Inflammation HEENT: Other (R eye swollen ) Neck: Normal Inspection, Non Tender Respiratory: Chest Non Tender, Lungs Clear, Normal Breath Sounds, No Accessory Muscle Use, No Respiratory Distress Cardiovascular: Regular Rate, Rhythm, No Edema, No Gallop, No JVD, No Murmur Gastrointestinal: Normal Bowel Sounds, Non Tender Neurologic/Psychiatric: Alert, Oriented x3 Lymphatic: No Adenopathy Results Results/Procedures Labs Laboratory Tests 12/27/19 09:40 12/28/19 04:30 Patient resulted labs reviewed. Short Stay Diagnosis Discharge Diagnosis-Short Stay Admission Diagnosis closed head injury cervical strain Final Discharge Diagnosis closed head injury cervical strain Conclusion Plan Plan: Pt is to be discharged home No physical therapy or occupational therapy needs at this time Clinical Quality Measures DVT/VTE Risk/Contraindication: Risk Factor Score Per Nursin RFS Level Per Nursing on Admit: 2=Moderate EVELINE ELDER DO 12/28/19 1244: History of Present Illness HPI/Chief Complaint CC: Fall HPI: This is a 74yoWM known to me from prior knee replacement by Dr. Dumont who has a history of dementia who suffered a fall, went to the ER, found to have a periorbital laceration that was repaired and he is doing very well now. PT and OT evaluated him and he will be discharged today. Source: patient, RN/MD Exam Limitations: no limitations Date Seen 12/28/19 Time Seen by a Provider: 09:00 Past Bhpibrh-Xcftka-Idzzva Hx Past Med/Social Hx: Reviewed Nursing Past Med/Soc Hx, Reviewed and Corrections made Patient Social History Marrital Status: Employed/Student: unemployed, retired Alcohol Use: Denies Use Smoking Status: Never a Smoker Family History Cardiovascular disease 19 MOTHER Review of Systems Constitutional: see HPI EENTM: see HPI Respiratory: see HPI Cardiovascular: see HPI Genitourinary: see HPI Musculoskeletal: see HPI Skin: see HPI Psychiatric/Neurological: See HPI Physical Exam Physical Exam General Appearance: No Apparent Distress, WD/WN, Chronically ill Respiratory: Chest Non Tender, Lungs Clear, Normal Breath Sounds, No Accessory Muscle Use, No Respiratory Distress Cardiovascular: Regular Rate, Rhythm, No Edema, No Gallop, No JVD, No Murmur, Normal Peripheral Pulses Gastrointestinal: Normal Bowel Sounds, No Organomegaly, No Pulsatile Mass, Non Tender, Soft Neurologic/Psychiatric: Alert, Oriented x3, No Motor/Sensory Deficits, Normal Mood/Affect, Disoriented Skin: Normal Color, Warm/Dry Short Stay Diagnosis Discharge Diagnosis-Short Stay Admission Diagnosis Assessment: Fall Closed head injury HTN AF Plan: Discharge home Restart all home meds Final Discharge Diagnosis Assessment: Fall Closed head injury HTN AF Plan: Discharge home Restart all home meds Conclusion Plan Plan: Discharge home Restart all home meds Supervisory-Addendum Brief Verification & Attestation Participated in pt care: history, MDM, physical Personally performed: exam, history, MDM, supervision of care Care discussed with: Medical Student Procedures: n/a Results interpretation: Verified all documentation Verification and Attestation of Medical Student E/M Service A medical student performed and documented this service in my presence. I reviewed and verified all information documented by the medical student and made modifications to such information, when appropriate. I personally performed the physical exam and medical decision making. Eveline Elder, Dec 28, 2019,20:54 RORY ELLIS MED STUDENT Dec 28, 2019 10:02 EVELINE ELDER DO Dec 28, 2019 12:44
[2019-12-28] MEDS ORDERED: POTA20TA15 PO (10:07)
--- NOTE | 2019-12-28 10:15 | NUR ---
SPOKE WITH THE PT- HE WANTED ME TO CALL HIS OLGA SINCE SHE TAKES CARE OF HIS MEDS- I REACHED OUT TO OLGA, CALLED [facility] AND [facility] TO COMPLETE THE MED REC TOPAMAX 50MG- DIRECTIONS SHOW 1 TAB BID HOWEVER PT IS TAKING 1 TAB HS AMIODARONE 200MG- DIRECTIONS SHOW 1 TAB BID HOWEVER PT IS TAKING 1 TAB DAILY POTASSIUM: PT WAS PRESCRIBED 10MEQ HOWEVER OLGA HAS A SCRIPT FOR THE 20MEQ AND SHE CUTS THEM IN HALF AND GIVES THE PT HER MEDICATION METFORMIN 500MG: DIRECTIONS ARE 2 TAB BID HOWEVER PT IS TAKING 1 TAB DAILY AND 2HS THE FOLLOWING ARE FILL DATES FROM [facility]: 12-16-2019 KLONOPIN 1MG #112 12-22-2019 XARELTO 20MG #30/30DS 12-23-2019 NORCO 5/325MG #112 THE FOLLOWING ARE FILL DATES FROM [facility]: 06-16-2019 AMIODARONE 200MG #180/180DS 08-15-2019 METFORMIN 500MG #360/120DS 08-15-2019 TOPAMAX 50MG #180/180DS 11-16-2019 AMLODIPINE 10MG #90/90DS 11-16-2019 ACTOS 30MG #30/30DS THE FOLLOWING MEDICATIONS WERE ALSO FILLED AT [facility] BUT THEY ARE PAST DUE FOR REFILLS AND I DOCUMENTED THIS ON THE MED REC 07-21-2019 CLONIDINE 0.2MG #180/90DS 08-15-2019 ENALAPRIL 5MG #180/90DS 08-15-2019 PAROXETINE 40MG #90/90DS 08-15-2019 LOVASTATIN 20MG #90/90DS 08-15-2019 DONEPEZIL 10MG #90/90DS OTC MEDS: NONE
[2019-12-28] MEDS ORDERED: clonazePAM 1 MG (KlonoPIN) TAB PO PRN ×2 (10:30)
[2019-12-28] MEDS ORDERED: HYDROcodone/APAP 5 MG/325 MG (LORTAB) TAB PO PRN (10:30)
--- NOTE | 2019-12-28 11:01 | NUR ---
IRF Evaluation Determination: Denied Explanation: According to PT Evaluation, patient is ambulating (400ft, FWW) and completing bed mobility with set-up, as well as completing transfers with CGA; therefore, patient does not require intensive therapies. CM/SS notified. Thank you for this referral.
--- NOTE | 2019-12-28 11:21 | NUR ---
CM/SS visited with patient for social service consult. Plan: The patient will return home with his . Patient will have Nidhi come to assess for [facility] placement. CM/SS attempted to contact patient's to discuss discharge. No answer; however, nurse handed this sw phone with on it. The reports that the patient is now falling almost every day. She states that he refuses to use the walker or cane. Krystal reports that she has had to call EMS to help get him off the floor and other family members. She states that patient needs assisted living or inpatient rehab. CM/SS contacted August in [facility] to discuss case. Patient is denied, see note. Patient's states she contacted [facility] to do an assessment with the patient. CM/SS got verbal permission from spouse to send a referral. CM/SS visited with the patient. Patient has baseline dementia according to chart. He reports that he is doing well today but is ready to get back home to his dog. He explained to this sw that he has only fallen x2 in the last few weeks. The patient states that he gets around fine but just got his foot caught on the counter and grass clippings. The patient reports that he has a walker and a cane but states he does not use them. The patient states that he is independent with his ADL's. CM/SS is unsure if this is accurate. CM/SS will fax referral. No additional needs at this time. Addendum: 12/28/19 at 1558 by IVA SE[facility] assessed patient and spoke with patient's . The patient's cannot afford an assisted living. Patient will return home. Patient's denied home health at this time.
[2019-12-28 12:00] VITALS: BP 136/73
--- NOTE | 2019-12-28 14:38 | Occupational Therapy Eval ---
OT Evaluation-General/PLF Medical Diagnosis Admission Date Dec 27, 2019 at 11:15 Medical Diagnosis: fall Onset Date: Dec 27, 2019 Therapy Diagnosis Therapy Diagnosis: Decreased ADL abilities Height/Weight Height (Feet): 5 Height (Inches): 8.50 Weight (Pounds): 223 Weight (Ounces): 4.0 Precautions Precautions/Isolations: Fall Prevention, Standard Precautions Referral Physician: Yulisa Referral Reason: Activity Tolerance, Self Care, Evaluation/Treatment, Strengthening/ROM Medical History Pertinent Medical History: CAD, CVA, DM, Dementia, HTN Additional Medical History dementia, HTN, pacemaker, R shoulder, a fib, CVA, DM2 Current History Fall in front yard- found face down with pain in R knee, hematoma to R forehead and parietal area. Reviewed History: Yes Social History Home: Single Level Current Living Status: Spouse Entry Into Home: Stairs With Railing Steps Into Home: 3 ADL-Prior Level of Function SCALE: Activities may be completed with or without assistive devices. 9-Ezohibbrgx-ydysdru completes the activity by him/herself with no assistance from a helper. 5-Set-up or Clean-up Assistance-helper sets up or cleans up; patient completes activity. [place] assists only prior to or following the activity. 4-Supervision or Touching Assistance-helper provides verbal cues and/or touching/steadying and/or contact guard assistance as patient completes activ ity. Assistance may be provided throughout the activity or intermittently. 3-Partial/Moderate Assistance-helper does LESS THAN HALF the effort. [place] lifts, holds or supports trunk or limbs, but provides less than half the effort. 2-Substantial/Maximal Assistance-helper does MORE THAN HALF the effort. [place] lifts or holds trunk or limbs and provides more than half the effort. 1-Anydsmxyb-woqejm does ALL the effort. Patient does none of the effort to complete the activity. Or, the assistance of 2 or more helpers is required for the patient to complete the activity. If activity was not attempted, code reason: 7-Patient Refused. 9-Not Applicable-not attempted and the patient did not perform the activity before the current illness, exacerbation or injury. 10-Not Attempted due to Environmental Limitations-(lack of equipment, weather restraints, etc.). 88-Not Attempted due to Medical Conditions or Safety Concerns. ADL PLOF Comments Pt states IND without AD in home. Pt's home through day per pt. Self Care: Independent Functional Cognition: Needed Some Help DME/Equipment: Shower DME/Equipment Comments states has SPC, 2WW, and walk in shower Occupation: retired. OT Current Status Subjective Pt seen in recliner. Readily agreeable to OT eval/ treat. Pt denies pain, alert Current Glasses/Contacts: Yes Hearing Aids: No Dentures/Partials: Yes Hand Dominance: Right Upper Extremity ROM WFL BUE (R shoulder decreased ROM) Upper Extremity Coordination Decreased BUE (delayed) Upper Extremity Sensation WFL LUE RUE pt states tingling/ numbness Upper Extremity Strength WFL BUE Edema: none noted. ADL-Treatment Eating (QC): 6 Oral Hygiene (QC): 6 On/Off Footwear (QC): 6 Toileting Hygiene (QC): 6 (Pt able to reach to bottom to demonstrate bottom hygiene in stance.) Other Treatments Pt seen in recliner. Pt introduced to OT and role. Pt completes hx and environment at home, stating 3 falls (tripping/ poor lighting) in past week. Pt states has walker/ cane at home though does not use. Pt agrees to MMT/ ROM screen. Pt is distractible, requires multiple redirectional cues. Pt requests urination/ urinal, denies bathroom at this time. Pt completes over course of 5 min as pt talks and when asked if feels done pt states he needs to focus. Pt's ROM/ MMT WFL, though R limited. Pt denies difficulty with fine motor/ eating/ writing/ oral hygiene tasks with R hand. Pt stands at walker level, able to reach back to bottom and get gown from bottom. Pt denies difficulties with bottom hygiene at home. pt then pretends to fall, laughing afterward and when directed to sit pt twirls in cahto and pretends to dance with OT- decreased safety awareness. Pt able to be directed to sit, chair alarm on. Pt states he does not think he will have any difficulties at home with ADLs, states at PLOF. Pt denies needs, call light in reach. Education OT Patient Education: Correct positioning, Purpose of tx/functional activities, Safety issues Teaching Recipient: Patient Teaching Methods: Demonstration, Discussion Response to Teaching: Verbalize Understanding, Return Demonstration, Reinforcement Needed OT Halfway Goals Halfway Goals 1=Demonstrate adherence to instructed precautions during ADL tasks. 2=Patient will verbalize/demonstrate understanding of assistive devices/modifications for ADL. 3=Patient will improve strength/tolerance for activity to enable patient to perform ADL's. OT Education/Plan Problem List/Assessment Assessment: No Skilled OT Needs ID'd Discharge Recommendations Plan/Recommendations: Discharge/Goals Met Therapy Discharge Recommendati: 24 Hour Supervision Treatment Plan/Plan of Care Treatment,Training & Education: Yes Patient would benefit from OT for education, treatment and training to promote independence in ADL's, mobility, safety and/or upper extremity function for ADL's. Plan of Care: OTHER (eval only) Treatment Duration: Dec 28, 2019 Frequency: 1 time per week (eval, one tx, and d/c.) Rehab Potential: Fair Time/GCodes Start Time: 14:05 Stop Time: 14:29 Total Time Billed (hr/min): 24 Billed Treatment Time 1, EVM, ADL (24) d/c. TYESHA MA OTR Dec 28, 2019 14:38
[2019-12-28 15:55] VITALS: BP 133/65
[2019-12-28 16:35] VITALS: BP 158/88
--- NOTE | 2019-12-28 16:35 | NUR ---
NATHAN BAKER demonstrates understanding of discharge instructions and accurately returns instructions upon questioning. Copy of Post-Discharge Instructions given to PT. NATHAN BAKER is able to manage continuing needs after discharge WITH ASSISTANCE OF . Patients belongings returned to PT. Patient discharged from [facility]- on 12/28/19 at 1635. NATHAN BAKER left floor via W/C, accompanied by STAFF AND PER AUTO.
[2019-12-28] MEDS ORDERED: ENALAPRIL 5 MG (VASOTEC) TAB PO SCH (21:00)
[2019-12-28] MEDS ORDERED: cloNIDine 0.2 MG (CATAPRES) TAB PO SCH (21:00)
[2019-12-28] MEDS ORDERED: metFORMIN 500 MG (GLUCOPHAGE) TAB PO SCH (21:00)
[2019-12-28] MEDS ORDERED: DONEPEZIL 10 MG (ARICEPT) TAB PO SCH (21:00)
[2019-12-28] MEDS ORDERED: SIMvastatin 10 MG (ZOCOR) TAB PO SCH (21:00)
[2019-12-28] MEDS ORDERED: toPIRamate 25 MG (TOPAMAX) TAB PO SCH (21:00)
[2019-12-29] MEDS ORDERED: KCL 10 MEQ TAB (MICRO K) PO SCH (07:00)
[2019-12-29] MEDS ORDERED: PIOGLITAZONE 30MG (ACTOS) TAB PO SCH (07:00)
[2019-12-29] MEDS ORDERED: RIVAROXABAN 20 MG TABLET (XARELTO) PO SCH (09:00)
[2019-12-29] MEDS ORDERED: amLODIPine 10 MG (NORVASC) TAB PO SCH (09:00)
[2019-12-29] MEDS ORDERED: metFORMIN 500 MG (GLUCOPHAGE) TAB PO SCH (09:00)
[2019-12-29] MEDS ORDERED: PARoxetine 20 MG (PAXIL) TAB PO SCH (09:00)
[2019-12-29] MEDS ORDERED: AMIODARONE 200 MG (CORDARONE) TAB PO SCH (09:00)
== END 2019-12-28 16:35 | disposition home or self-care (01) ==
LOC: EDUNIT# 08:53 → ER 08:56 → 4TH 11:15
PROVIDERS: ADMIT Internal Medicine; ATTEND Internal Medicine
DX: S00.91XA Abrasion of unspecified part of head, initial encounter (principal); S00.03XA Contusion of scalp, initial encounter; S80.811A Abrasion, right lower leg, initial encounter; S70.219A Abrasion, unspecified hip, initial encounter; G30.9 Alzheimer's disease, unspecified; M25.561 Pain in right knee; I10 Essential (primary) hypertension; E78.5 Hyperlipidemia, unspecified; E78.00 Pure hypercholesterolemia, unspecified; I48.91 Unspecified atrial fibrillation; G47.30 Sleep apnea, unspecified; G89.29 Other chronic pain; M19.90 Unspecified osteoarthritis, unspecified site; E11.9 Type 2 diabetes mellitus without complications; F41.9 Anxiety disorder, unspecified; F32.9 Major depressive disorder, single episode, unspecified; Z79.82 Long term (current) use of aspirin; Z79.84 Long term (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 oral hypoglycemic drugs; Z79.899 Other long term (current) drug therapy; Z88.2 Allergy status to sulfonamides; Z87.891 Personal history of nicotine dependence; W19.XXXA Unspecified fall, initial encounter
CPT/HCPCS: 70450; 71045; 72125; 73562; 80048 ×2; 80076; 81000; 82550; 82962 ×2; 85025; 85027; 85610; 85730; 93005; 93041; 97162; 97166; 97535; 99284; G0378; G0480; 36415; 80320

== ENCOUNTER 2019-12-30 17:22 | Emergency (ER) | payer MEDICARE ==
[~2019-12-30] VITALS: Ht 177.7 cm; Wt 87.1 kg
[~2019-12-30 17:22] MED LIST changes: +POTA20TA15 PO; +RIVA20TA PO
--- NOTE | 2019-12-30 18:09 | Diagnostic Imaging Report ---
CLINICAL INDICATION: Patient with wrist pain, altered mental status. Patient attempted to strike his at the clinic. EXAM: X-ray of the right hand, 3 views. COMPARISON: None. FINDINGS: There is 3 mm of negative ulnar variance seen. There are small calcifications seen posterior to the wrist of unknown age. A triquetral fracture fragment cannot be completely excluded. There also appears to be proximal migration of the distal carpal row onto the proximal carpal row with disruption of the carpal joints and deformity of the carpal bones. There is concern for widening of the scapholunate interval. Slightly deformed scaphoid bone seen proximally and a chronic fracture in the region cannot be excluded. There is slight sclerosis and deformity of the lunate bone as well. There is hypertrophic spurs seen involving the carpal bones. There is degenerative spurs involving the 1st CMC joint, 1st MCP joint. There are degenerative spurs involving multiple MCP joints. There is soft tissue swelling about the wrist. IMPRESSION: 1.: There is abnormal appearance and configuration of the carpal bones with the appearance of slight collapse and proximal migration of the distal carpal row into the proximal carpal row. There is also concern for widening of the scapholunate interval with deformity of the lunate and scaphoid bones. There is also negative ulnar variance. This finding may be related to chronic scapholunate injury with advanced collapse. There is small calcification seen posterior to the wrist and acute fracture in the region cannot be completely excluded. Comparison to prior x-rays of the right wrist would better evaluate. 2: Degenerative disease in right hand. Dictated by: Dictated on workstation # [id number]
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
[2019-12-30 18:16] LABS: BASOPHILS % (AUTO) 0 % (0-10); BILIRUBIN,URINE NEGATIVE (NEGATIVE); CLARITY,URINE CLEAR; COLOR,URINE YELLOW; EOSINOPHILS # (AUTO) 0.1 10^3/uL (0.0-0.3); EOSINOPHILS % (AUTO) 0 % (0-10); GLUCOSE, URINE (UA) NEGATIVE (NEGATIVE); HEMATOCRIT 45 % (40-54); HEMOGLOBIN 14.4 G/DL (13.3-17.7); KETONES,URINE NEGATIVE (NEGATIVE); LEUKOCYTE ESTERASE ,URINE NEGATIVE (NEGATIVE); LYMPHOCYTES % (AUTO) 15 % (12-44); MEAN CORPUSCULAR HEMOGLOBIN 29 PG (25-34); MEAN CORPUSCULAR HGB CONC 32 G/DL (32-36); MEAN CORPUSCULAR VOLUME 89 FL (80-99); MEAN PLATELET VOLUME 11.1 FL (7.4-10.4); MONOCYTES # (AUTO) 0.7 X 10^3 (0.0-1.0); MONOCYTES % (AUTO) 6 % (0-12); NEUTROPHILS # (AUTO) 10.2 X 10^3 (1.8-7.8); NEUTROPHILS % (AUTO) 78 % (42-75); NITRITE,URINE NEGATIVE (NEGATIVE); PLATELET COUNT 259 10^3/uL (130-400); PROTEIN,URINE TRACE (NEGATIVE); RED CELL DISTRIBUTION WIDTH 17.5 % (10.0-14.5)
--- NOTE | 2019-12-30 18:19 | Diagnostic Imaging Report ---
CLINICAL INDICATION: Patient fell and has altered mental status. Patient has bruising and swelling in the right orbit. EXAMS: 1: Axial Head CT without IV contrast. 2: Axial Maxillofacial CT scan without IV contrast with sagittal and coronal reformations. Auto Exposure Controls were utilized during the CT exam to meet ALARA standards for radiation dose reduction. COMPARISON: CT scan of the head and cervical spine without contrast dated 12/27/2019. FINDINGS: HEAD CT AND MAXILLOFACIAL CT: There is interval development of a small area of extracranial hematoma/soft tissue swelling in the lateral right frontal region and the supraorbital region. There is no skull fracture. There is no maxillofacial fracture seen. There is no intracranial hemorrhage, brain herniation, or midline shift. There is no hydrocephalus. Stable chronic infarct involving the right occipital and parietal lobe region. Stable areas of low density involving both cerebral hemispheres related to chronic ischemic changes. There is mild mucosal thickening involving the right maxillary sinus and minimal amount involving the left maxillary sinus and ethmoid sinus. Mastoid air cells are clear. The orbits and globes are intact. The remainder of the extracranial soft tissue structures are unremarkable. Partially visualized cervical spine degenerative disease. IMPRESSION: 1: There is interval development of a small extracranial hematoma and swelling in the right frontal supra-periorbital region. There is no skull fracture or maxillofacial fracture. Orbits and globes are intact. 2: Otherwise, stable CT scan of the brain with no interval intracranial hemorrhage. Dictated by: Dictated on workstation # [id number]
[2019-12-30 18:24] LABS: BACTERIA,URINE TRACE /HPF; SQUAMOUS EPITHELIAL CELL,UR 0-2 /HPF
[2019-12-30 18:44] LABS: ALBUMIN 3.8 GM/DL (3.2-4.5); CHLORIDE 109 MMOL/L (98-107); POTASSIUM 3.9 MMOL/L (3.6-5.0); SODIUM 140 MMOL/L (135-145)
[2019-12-30 18:47] LABS: GLUCOSE 128 MG/DL (70-105); TOTAL PROTEIN 7.1 GM/DL (6.4-8.2)
[2019-12-30 18:48] LABS: BILIRUBIN,TOTAL 0.3 MG/DL (0.1-1.0); CARBON DIOXIDE 20 MMOL/L (21-32)
[2019-12-30 18:50] LABS: ALKALINE PHOSPHATASE 86 U/L (40-136); CREATININE SERUM 1.27 MG/DL (0.60-1.30); GFR ESTIMATED 55
[2019-12-30 18:51] LABS: BUN/CREATININE RATIO 17
[2019-12-30 18:53] LABS: ALANINE AMINOTRANSFERASE 17 U/L (0-55); MAGNESIUM 1.8 MG/DL (1.6-2.4)
[2019-12-30 19:13] LABS: TSH (THYROID ANALYZER) 0.72 UIU/ML (0.35-4.94)
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
[2019-12-30 20:00] VITALS: BP 129/82
== END 2019-12-30 20:00 | disposition home or self-care (01) ==
LOC: EDUNIT# 17:22 → ER 17:25
DX: S00.83XA Contusion of other part of head, initial encounter (principal); M25.531 Pain in right wrist; F32.9 Major depressive disorder, single episode, unspecified; E11.9 Type 2 diabetes mellitus without complications; I48.91 Unspecified atrial fibrillation; E78.00 Pure hypercholesterolemia, unspecified; G89.29 Other chronic pain; M54.9 Dorsalgia, unspecified; I10 Essential (primary) hypertension; F03.90 Unspecified dementia, unspecified severity, without behavioral disturbance, psychotic disturbance, mood disturbance, and anxiety; F41.9 Anxiety disorder, unspecified; Z63.0 Problems in relationship with spouse or partner; Z88.2 Allergy status to sulfonamides; Z95.0 Presence of cardiac pacemaker; Z82.49 Family history of ischemic heart disease and other diseases of the circulatory system; Z79.84 Long term (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 oral hypoglycemic drugs; Z79.891 Long term (current) use of opiate analgesic; Z79.01 Long term (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; W19.XXXA Unspecified fall, initial encounter
CPT/HCPCS: 70450; 70486; 73110; 80053; 81000; 83735; 84443; 85025; 86141; 99284; G0480; 36415; 80320

== ENCOUNTER 2020-02-27 09:09 | Emergency (ER) | payer MEDICARE ==
[~2020-02-27] VITALS: Ht 177.7 cm; Wt 87.1 kg
[~2020-02-27 09:09] MED LIST changes: +ASPI-1238 PO; -ASPI-983 PO
[2020-02-27] MEDS ORDERED: IOHEXOL 350 MG/ML 100 ML (OMNIPAQUE 350) VIAL IV ONE (09:30)
[2020-02-27] MEDS ORDERED: HOLD METFORMIN - RECEIVED CONTRAST 20 ML VIAL IV SCH (09:30)
[2020-02-27] MEDS ORDERED: HUMAN PROTHROMBIN COMPLX(PCC) 500 UNIT (KCENTRA) IV ONE ×2 (09:30→09:45)
[2020-02-27] MEDS ORDERED: NS 100 ML (IVPB) BAG IV ONE (09:30)
[2020-02-27 09:49] LABS: HEMOGLOBIN 12.8 g/dL (13.3-17.7); WHITE BLOOD COUNT 7.9 10^3/uL (4.3-11.0)
[2020-02-27] MEDS ORDERED: NS IV 1000 ML 1,000 ML IV SCH (09:50)
--- NOTE | 2020-02-27 09:50 | ED Fall/Injury ---
General Chief Complaint: Trauma EMS/Air Arrival Activat Stated Complaint: FALL Nursing Triage Note: PT BROUGHT IN BY [facility] FROM HOME FOR FALL. PT FELL OFF PORCH APPROX 8 FT LANDING ON HEAD. PT IS ALERT AND LOOKING AROUND BUT NOT ORIENTED. PER EMS, PT HAS HAD SNORING RESPIRATIONS. LARGE HEMATOMA ON BACK OF HEAD. Source: patient Exam Limitations: no limitations History of Present Illness Date Seen by Provider: Feb 27, 2020 Time Seen by Provider: 09:10 Initial Comments This 74-year-old gentleman presents to the emergency room via EMS after falling backward down for stairs and striking his head. He has a right occipital hematoma with minor bleeding. He initially was reported to have agonal breathing but EMS reports that improved to snoring respirations. He initially had decreased responsiveness but now answers questions and follows commands. He has dementia at baseline but is able to perform many ADLs including feeding himself and walking. His reports he typically is able to engage in meaningful conversations with family. He is alert and oriented to person, place, and age. He notes pain in the head, neck, and back. EMS notes anisocoria. Patient is on Xarelto for stroke prophylaxis in atrial fibrillation. Blood sugars in the 150s. Allergies and Home Medications Allergies Coded Allergies: Sulfa (Sulfonamide Antibiotics) (Verified Allergy, Unknown, 01/14/19) Home Medications Amiodarone HCl 200 Mg Tablet, 200 MG PO DAILY, (Reported) LAST FILLED 06-16-2019 #180 Amlodipine Besylate 10 Mg Tablet, 10 MG PO DAILY, (Reported) Clonazepam 1 Mg Tablet, 1 MG PO BID PRN for ANXIETY, (Reported) Clonazepam 1 Mg Tablet, 2 MG PO HS PRN for ANXIETY, (Reported) Clonidine HCl 0.2 Mg Tablet, 0.2 MG PO BID, (Reported) LAST FILLED 07-21-2019 #180/90 DAY SUPPLY Donepezil HCl 10 Mg Tablet, 10 MG PO HS, (Reported) LAST FILLED 08-15-2019 #90/90 DAY SUPPLY Enalapril Maleate 5 Mg Tablet, 5 MG PO BID, (Reported) LAST FILLED 08-15-2019 #180/90 DAY SUPPLY Hydrocodone/Acetaminophen 1 Each Tablet, 1 TAB PO Q6H PRN for PAIN-MODERATE (5- 7), (Reported) Lovastatin 20 Mg Tablet, 20 MG PO HS, (Reported) LAST FILLED 08-15-2019 #90/90 DAY SUPPLY Metformin HCl 500 Mg Tablet, 500 MG PO DAILY, (Reported) Metformin HCl 500 Mg Tablet, 1,000 MG PO HS, (Reported) TAKES 2 (500MG) TABS Paroxetine HCl 40 Mg Tablet, 40 MG PO DAILY, (Reported) LAST FILLED 08-15-2019 #90/90 DAY SUPPLY Pioglitazone HCl 30 Mg Tablet, 30 MG PO DAILY, (Reported) Potassium Chloride 20 Meq Tab.er.prt, 10 MEQ PO DAILY, (Reported) TAKES OF A 20MEQ Rivaroxaban 20 Mg Tablet, 20 MG PO DAILY, (Reported) Topiramate 50 Mg Tablet, 50 MG PO HS, (Reported) Patient Home Medication List Home Medication List Reviewed: Yes Review of Systems Review of Systems Constitutional: no symptoms reported Eyes: See HPI Ears, Nose, Mouth, Throat: no symptoms reported Respiratory: see HPI Cardiovascular: see HPI Gastrointestinal: no symptoms reported Genitourinary: no symptoms reported Musculoskeletal: see HPI Skin: see HPI Psychiatric/Neurological: See HPI Past Lkwphzm-Mjbmnp-Dsptuf Hx Past Med/Social Hx: Reviewed Nursing Past Med/Soc Hx Patient Social History Alcohol Use: Denies Use Recreational Drug Use: No Smoking Status: Never a Smoker 2nd Hand Smoke Exposure: No Recent Foreign Travel: No Contact w/Someone Who Travel: No Recent Infectious Disease Expo: No Recent Hopitalizations: No Immunizations Up To Date Tetanus Booster (TDap): Unknown PED Vaccines UTD: Yes Date of Pneumonia Vaccine: Jan 22, 2008 Date of Influenza Vaccine: Mar 10, 2018 Seasonal Allergies Seasonal Allergies: No Past Medical History Surgeries: Yes (fatty tumor removed, R shoulder, ) Orthopedic, Pacemaker Respiratory: Yes Sleep Apnea Currently Using CPAP: No Currently Using BIPAP: No Cardiac: Yes (meditronic PACEMAKER) Atrial Fibrillation, High Cholesterol, Hypertension Neurological: Yes Dementia, Stroke Reproductive Disorders: No Sexually Transmitted Disease: No Genitourinary: Yes Kidney Stones Gastrointestinal: Yes Chronic Constipation Musculoskeletal: Yes (right knee arthritis) Arthritis, Chronic Back Pain Endocrine: Yes Diabetes, Non-Insulin dep HEENT: No Cancer: No Psychosocial: Yes Anxiety, Depression Integumentary: No Blood Disorders: No Adverse Reaction/Blood Tranf: No Family Medical History Cardiovascular disease 19 MOTHER No Pertinent Family Hx Physical Exam Vital Signs Vital Signs - First Documented 02/27/20 09:36 Temp 36.3 Pulse 66 Resp 15 B/P (MAP) 126/92 (103) Pulse Ox 93 O2 Delivery Room Air Capillary Refill : Height, Weight, BMI Height: 5'8.50" Weight: 223lbs. 4.0oz. [id number]; 27.00 BMI Method:Stated General Appearance: WD/WN, no apparent distress HEENT: other (Oropharynx dry. Subtle anisocoria noted. 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, no motor/sensory deficits, alert, normal mood/affect, oriented x 3 Skin: normal color, warm/dry Lymphatic: no adenopathy Progress/Results/Core Measures Results/Orders Lab Results Laboratory Tests Test 02/27/20 09:36 02/27/20 09:40 02/27/20 09:47 Range/Units Glucometer 139 H 70-110 MG/DL White Blood Count 7.9 4.3-11.0 10^3/uL Red Blood Count 4.58 4.30-5.52 10^6/uL Hemoglobin 12.8 L 13.3-17.7 g/dL Hematocrit 41 40-54 % Mean Corpuscular Volume 90 80-99 fL Mean Corpuscular Hemoglobin 28 25-34 pg Mean Corpuscular Hemoglobin Concent 31 L 32-36 g/dL Red Cell Distribution Width 14.7 H 10.0-14.5 % Platelet Count 159 130-400 10^3/uL Mean Platelet Volume 11.0 9.0-12.2 fL Prothrombin Time 17.4 H 12.2-14.7 SEC INR Comment 1.4 0.8-1.4 Activated Partial Thromboplast Time 35 24-35 SEC Sodium Level 138 135-145 MMOL/L Potassium Level 3.9 3.6-5.0 MMOL/L Chloride Level 107 98-107 MMOL/L Carbon Dioxide Level 21 21-32 MMOL/L Anion Gap 10 5-14 MMOL/L Blood Urea Nitrogen 28 H 7-18 MG/DL Creatinine 1.33 H 0.60-1.30 MG/DL Estimat Glomerular Filtration Rate 53 BUN/Creatinine Ratio 21 Glucose Level 154 H 70-105 MG/DL Calcium Level 8.7 8.5-10.1 MG/DL Magnesium Level 1.7 1.6-2.4 MG/DL Total Bilirubin 0.4 0.1-1.0 MG/DL Direct Bilirubin 0.2 0.0-0.3 MG/DL Indirect Bilirubin 0.2 MG/DL Aspartate Amino Transf (AST/SGOT) 17 5-34 U/L Alanine Aminotransferase (ALT/SGPT) 10 0-55 U/L Alkaline Phosphatase 88 40-136 U/L Total Protein 6.6 6.4-8.2 GM/DL Albumin 3.7 3.2-4.5 GM/DL Serum Alcohol < 10 <10 MG/DL Urine Color YELLOW Urine Clarity CLEAR Urine pH 6.5 5-9 Urine Specific [place] 1.015 L 1.016-1.022 Urine Protein TRACE H NEGATIVE Urine Glucose (UA) NEGATIVE NEGATIVE Urine Ketones NEGATIVE NEGATIVE Urine Nitrite NEGATIVE NEGATIVE Urine Bilirubin NEGATIVE NEGATIVE Urine Urobilinogen 1.0 < = 1.0 MG/DL Urine Leukocyte Esterase NEGATIVE NEGATIVE Urine RBC (Auto) NEGATIVE NEGATIVE Urine RBC 2-5 H /HPF Urine WBC NONE /HPF Urine Crystals PRESENT H /LPF Urine Amorphous Sediment LARGE FELIPA URATES H /LPF Urine Bacteria NEGATIVE /HPF Urine Casts NONE /LPF Urine Mucus NEGATIVE /LPF Urine Other MOD SPERM H /HPF Urine Culture Indicated NO My Orders Orders - MARTHA DAWSON MD Ct Head/Cervical Spine Wo (02/27/20 09:10) Ct Chest/Abdomen/Pelvis W (02/27/20 09:17) Cbc No Diff (02/27/20 09:18) Basic Metabolic Panel (02/27/20 09:18) Liver Panel (02/27/20 09:18) Alcohol (02/27/20 09:18) Type And Screen (02/27/20:18) End Tidal Co2 (02/27/20 09:18) Monitor-Rhythm Ecg Trace Only (02/27/20 09:18) Ed Iv/Invasive Line Start (02/27/20 09:18) Protime With Inr (02/27/20 09:18) Partial Thromboplastin Time (02/27/20 09:18) Magnesium (02/27/20 09:18) Ua Culture If Indicated (02/27/20 09:18) Iohexol Injection (Omnipaque 350 Mg/Ml 1 (02/27/20 09:30) Received Contrast (Hold Metformin- Contr (02/27/20 09:30) Ns (Ivpb) (Sodium Chloride 0.9% Ivpb Bag (02/27/20 09:30) Human Prothrombin Complx(Pcc) (Kcentra K (02/27/20 09:30) Human Prothrombin Complx(Pcc) (Kcentra K (02/27/20 09:45) Ns Iv 1000 Ml (Sodium Chloride 0.9%) (02/27/20 09:50) Ns Iv 1000 Ml (Sodium Chloride 0.9%) (02/27/20 09:51) Medications Given in ED Current Medications Medications Dose Ordered Sig/Eris Route Start Time Stop Time Status Last Admin Dose Admin Prothrombin Complex Concent (Human) 2,000 unit ONCE ONCE IV 02/27/20 09:45 02/27/20 09:46 DC 02/27/20 10:01 2,000 UNIT Vital Signs/I&O 02/27/20 02/27/20 09:36 10:55 Temp 36.3 36.3 Pulse 66 60 Resp 15 15 B/P (MAP) 126/92 (103) 160/77 (103) Pulse Ox 93 94 O2 Delivery Room Air Room Air Progress Progress Note : Time: 10:39 Progress Note Patient was taken promptly to CT for imaging as his vital signs were stable but he is at high risk for intracranial hemorrhage due to Xarelto use. Left subdural and subarachnoid bleeds were found. Family was contacted regarding his findings and disposition. His daughter and both agree they would like aggressive care with surgery if necessary. I had a later conversation about CODE STATUS with patient's , Krystal Giron. She requests a DO NOT RESUSCITATE status should he have a cardiopulmonary arrest, although she would still like him to have the opportunity for surgery if necessary. By my assessment patient can interact meaningfully with others but is not capable of understanding the CODE STATUS discussion. Due to patient's Xarelto use, Kcentra was administered after consultation with the pharmacist. Vital signs have remained stable and patient remains alert and able to follow commands. CT of the cervical spine was cleared at 10:[address] report. No injuries were identified on CT of the chest, abdomen and pelvis. After discussion with family, arrangements were made for transfer. I initially contacted [facility] at family's request at 09:45. Transfer was declined due to ICU diversion. I then also called [facility] in [place] and [facility] in [place]. They likewise are on ICU diversion and therefore declined transfer. Patient was ultimately accepted at [facility], Dr. Ramana Cowan as attending, at 10:15. Diagnostic Imaging Diagonstic Imaging: CT Plain Films/CT/US/NM/MRI: c-spine, head Comments CT head and C-spine reviewed by me. Discussed with the radiologist. Report reviewed. See report below: NAME: NATHAN GIRON [facility] REC#: [id number] PT STATUS: REG ER : 1945 PHYSICIAN: MARTHA DAWSON MD ADMIT DATE: 02/27/20/ER Signed Date of Exam:02/27/20 CT HEAD/CERVICAL SPINE WO PROCEDURE: CT head and CT cervical spine without contrast. TECHNIQUE: Multiple contiguous axial images were obtained through the brain and cervical spine without the use of intravenous contrast. Sagittal and coronal reformations through the cervical spine were then performed. Auto Exposure Controls were utilized during the CT exam to meet ALARA standards for radiation dose reduction. INDICATION: Fall from 8', injury to the head and neck COMPARISON: 12/30/2019 FINDINGS: CT HEAD: The ventricles and cortical sulci are mildly prominent, likely from generalized parenchymal volume loss. There is a small subarachnoid hemorrhage involving the left temporal and frontal lobes, as well as a small extra-axial hemorrhage which is thought to be subdural, measuring up to 5 mm in thickness. No calvarium fracture is seen. There is a moderate-sized scalp hematoma in the right parietal region. There is no midline shift or mass effect. There is no CT evidence of acute territorial ischemia. There is encephalomalacia in the right occipital lobe from old infarct. The paranasal sinuses are clear. CT cervical spine: There is no spondylolisthesis. Vertebral body heights are preserved. There are severe degenerative changes at C6-C7, C7-T1 and at T1-2. No acute fracture is seen. No bony fragments or hyperdense fluid collections are seen in the spinal canal. Surrounding soft tissues demonstrate no acute abnormality. IMPRESSION: 1. Small subdural and subarachnoid hemorrhages in the left frontotemporal region. 2. Right parietal scalp hematoma. No calvarium fracture is seen. 2. Severe degenerative changes in the cervical spine with no acute fracture seen. Findings discussed with MARTHA DAWSON MD by Dr. Jacobson, on 02/27/2020 9:33 AM. Dictated by: Dictated on workstation # [id number] Dict: 02/27/20926 Trans: 02/27/20 1012 [facility] [id number] Interpreted by: ERMA JACOBSON MD Electronically signed by: ERMA JACOBSON MD 02/27/20 1012 Diagonstic Imaging: CT Plain Films/CT/US/NM/MRI: chest, abdomen, pelvis Comments CT chest, abdomen and pelvis viewed by me and report reviewed. See report below: NAME: NATHAN GIRON [facility] REC#: [id number] PT STATUS: REG ER : 1945 PHYSICIAN: MARTHA DAWSON MD ADMIT DATE: 02/27/20/ER Signed Date of Exam:02/27/20 CT CHEST/ABDOMEN/PELVIS W PROCEDURE: CT chest, abdomen, and pelvis with contrast. TECHNIQUE: Multiple contiguous axial images were obtained through the chest, abdomen, and pelvis after the administration of intravenous contrast. Auto Exposure Controls were utilized during the CT exam to meet ALARA standards for radiation dose reduction. INDICATION: Fall. FINDINGS: The lungs demonstrate some mild posterior dependent atelectasis and otherwise appear clear. There is no evidence to suggest pulmonary contusion. There is no pneumothorax or evidence of pleural collection or hemothorax. The thoracic aorta is normal in caliber. There are mild calcifications of the aortic valve. There are no findings of dissection. There is no mediastinal hematoma. There is no pericardial collection. Cardiomegaly is present. There is a pacemaker device in place. The central pulmonary arteries appear unremarkable. The patient is status post a previous right shoulder arthroplasty. There are severe arthritic changes at the left shoulder. There is no demonstration of a clavicular or scapular fracture. There is no identified rib fracture or sternal fracture. Liver demonstrates no evidence of laceration. There is no perihepatic fluid or blood. The spleen also unremarkable. The gallbladder is nondistended. There is no biliary dilatation. Pancreas unremarkable. There are no findings of an adrenal mass. There is no renal laceration. There are small nonobstructing stones within both kidneys. There are no findings of abnormal bowel thickening. There is no evidence of bowel obstruction. There is a small hiatal hernia. There is moderate stool within the colon. There is uncomplicated diverticulosis. There are no findings of a pelvic free fluid or evidence of hemoperitoneum. The urinary bladder is nondistended. Aorta is normal in caliber. IVC normal in caliber. Alignment of the thoracic and lumbar spine appear within normal limits. There are multilevel degenerative endplate changes and facet arthropathy. There are multiple vacuum disks within the lumbar spine. There is no evidence of an acute thoracic or lumbar spine fracture. IMPRESSION: 1. No CT evidence of acute spinal, pelvic or thoracic fractures. 2. No evidence of pulmonary contusion, pneumothorax or pleural collection. 3. No solid organ injury within the abdomen or pelvis or findings of hemoperitoneum. 4. No acute inflammatory or obstructive process. 5. Advanced but uncomplicated diverticulosis. 6. Nonobstructing bilateral renal calculi. 7. Cardiomegaly and atherosclerosis. Dictated by: Dictated on workstation # [id number] Dict: 02/27/2044 Trans: 02/27/20 1012 [facility] [id number] Interpreted by: YOHAN FARLEY MD Electronically signed by: YOHAN FARLEY MD 02/27/20 1012 Departure Impression Primary Impression: Subarachnoid hemorrhage Additional Impressions: Subdural hematoma Anticoagulated Fall down stairs Qualified Codes: W10.8XXA - Fall (on) (from) other stairs and steps, initial encounter Scalp hematoma Qualified Codes: S00.03XA - Contusion of scalp, initial encounter Disposition: 02 XFER SHT-TRM HOSP Condition: Stable Transfer Transfer Reason: Exceeds level of care Time Spoke to Accepting Phy: 10:15 Transfer Progress Notes Transfer accepted at [facility], attending Dr. Ramana Cowan Transfer Time: 10:50 Transfer Facility: [facility] Method of Transfer: MARTHA Posadas MD Feb 27, 2020 09:50
[2020-02-27 09:51] LABS: BILIRUBIN,URINE NEGATIVE (NEGATIVE); CLARITY,URINE CLEAR; COLOR,URINE YELLOW; GLUCOSE, URINE (UA) NEGATIVE (NEGATIVE); KETONES,URINE NEGATIVE (NEGATIVE); LEUKOCYTE ESTERASE ,URINE NEGATIVE (NEGATIVE); NITRITE,URINE NEGATIVE (NEGATIVE); PH,URINE 6.5 (5-9); PROTEIN,URINE TRACE (NEGATIVE)
[2020-02-27] MEDS ORDERED: NS IV 1000 ML 1,000 ML ONE (09:51)
--- NOTE | 2020-02-27 09:54 | Diagnostic Imaging Report ---
PROCEDURE: CT head and CT cervical spine without contrast. TECHNIQUE: Multiple contiguous axial images were obtained through the brain and cervical spine without the use of intravenous contrast. Sagittal and coronal reformations through the cervical spine were then performed. Auto Exposure Controls were utilized during the CT exam to meet ALARA standards for radiation dose reduction. INDICATION: Fall from 8', injury to the head and neck COMPARISON: 12/30/2019 FINDINGS: CT HEAD: The ventricles and cortical sulci are mildly prominent, likely from generalized parenchymal volume loss. There is a small subarachnoid hemorrhage involving the left temporal and frontal lobes, as well as a small extra-axial hemorrhage which is thought to be subdural, measuring up to 5 mm in thickness. No calvarium fracture is seen. There is a moderate-sized scalp hematoma in the right parietal region. There is no midline shift or mass effect. There is no CT evidence of acute territorial ischemia. There is encephalomalacia in the right occipital lobe from old infarct. The paranasal sinuses are clear. CT cervical spine: There is no spondylolisthesis. Vertebral body heights are preserved. There are severe degenerative changes at C6-C7, C7-T1 and at T1-2. No acute fracture is seen. No bony fragments or hyperdense fluid collections are seen in the spinal canal. Surrounding soft tissues demonstrate no acute abnormality. IMPRESSION: 1. Small subdural and subarachnoid hemorrhages in the left frontotemporal region. 2. Right parietal scalp hematoma. No calvarium fracture is seen. 2. Severe degenerative changes in the cervical spine with no acute fracture seen. Findings discussed with MARTHA DAWSON MD by Dr. Velazquez, on 02/27/2020 9:33 AM. Dictated by: Dictated on workstation # [id number]
[2020-02-27 09:58] LABS: AMORPHOUS SEDIMENT,UR LARGE AMOR URATES /LPF; BACTERIA,URINE NEGATIVE /HPF; URINE OTHER MOD SPERM /HPF
--- NOTE | 2020-02-27 09:58 | Diagnostic Imaging Report ---
PROCEDURE: CT chest, abdomen, and pelvis with contrast. TECHNIQUE: Multiple contiguous axial images were obtained through the chest, abdomen, and pelvis after the administration of intravenous contrast. Auto Exposure Controls were utilized during the CT exam to meet ALARA standards for radiation dose reduction. INDICATION: Fall. FINDINGS: The lungs demonstrate some mild posterior dependent atelectasis and otherwise appear clear. There is no evidence to suggest pulmonary contusion. There is no pneumothorax or evidence of pleural collection or hemothorax. The thoracic aorta is normal in caliber. There are mild calcifications of the aortic valve. There are no findings of dissection. There is no mediastinal hematoma. There is no pericardial collection. Cardiomegaly is present. There is a pacemaker device in place. The central pulmonary arteries appear unremarkable. The patient is status post a previous right shoulder arthroplasty. There are severe arthritic changes at the left shoulder. There is no demonstration of a clavicular or scapular fracture. There is no identified rib fracture or sternal fracture. Liver demonstrates no evidence of laceration. There is no perihepatic fluid or blood. The spleen also unremarkable. The gallbladder is nondistended. There is no biliary dilatation. Pancreas unremarkable. There are no findings of an adrenal mass. There is no renal laceration. There are small nonobstructing stones within both kidneys. There are no findings of abnormal bowel thickening. There is no evidence of bowel obstruction. There is a small hiatal hernia. There is moderate stool within the colon. There is uncomplicated diverticulosis. There are no findings of a pelvic free fluid or evidence of hemoperitoneum. The urinary bladder is nondistended. Aorta is normal in caliber. IVC normal in caliber. Alignment of the thoracic and lumbar spine appear within normal limits. There are multilevel degenerative endplate changes and facet arthropathy. There are multiple vacuum disks within the lumbar spine. There is no evidence of an acute thoracic or lumbar spine fracture. IMPRESSION: 1. No CT evidence of acute spinal, pelvic or thoracic fractures. 2. No evidence of pulmonary contusion, pneumothorax or pleural collection. 3. No solid organ injury within the abdomen or pelvis or findings of hemoperitoneum. 4. No acute inflammatory or obstructive process. 5. Advanced but uncomplicated diverticulosis. 6. Nonobstructing bilateral renal calculi. 7. Cardiomegaly and atherosclerosis. Dictated by: Dictated on workstation # [id number]
--- NOTE | 2020-02-27 09:59 | NUR ---
in room with pt per Dr. Bal.
[2020-02-27 10:00] LABS: ALBUMIN 3.7 GM/DL (3.2-4.5); CHLORIDE 107 MMOL/L (98-107); POTASSIUM 3.9 MMOL/L (3.6-5.0); SODIUM 138 MMOL/L (135-145)
--- NOTE | 2020-02-27 10:00 | NUR ---
[facility] here.
[2020-02-27 10:01] LABS: CALCIUM 8.7 MG/DL (8.5-10.1); INR 1.4 (0.8-1.4); PROTHROMBIN TIME PATIENT 17.4 SEC (12.2-14.7)
[2020-02-27 10:02] LABS: GLUCOSE 154 MG/DL (70-105); TOTAL PROTEIN 6.6 GM/DL (6.4-8.2)
[2020-02-27 10:03] LABS: CARBON DIOXIDE 21 MMOL/L (21-32)
[2020-02-27 10:04] LABS: BILIRUBIN,TOTAL 0.4 MG/DL (0.1-1.0)
[2020-02-27 10:06] LABS: ALKALINE PHOSPHATASE 88 U/L (40-136); CREATININE SERUM 1.33 MG/DL (0.60-1.30); GFR ESTIMATED 53
[2020-02-27 10:07] LABS: BILIRUBIN,DIRECT 0.2 MG/DL (0.0-0.3); BILIRUBIN,INDIRECT 0.2 MG/DL; BUN/CREATININE RATIO 21
[2020-02-27 10:09] LABS: ALANINE AMINOTRANSFERASE 10 U/L (0-55); MAGNESIUM 1.7 MG/DL (1.6-2.4)
--- NOTE | 2020-02-27 10:10 | NUR ---
Gold, rope chain and gold nugget pendant given to pt's .
--- NOTE | 2020-02-27 10:30 | NUR ---
Dr. Bal in room with pt and .
--- NOTE | 2020-02-27 10:35 | NUR ---
c collar removed by Dr. Bal
--- NOTE | 2020-02-27 10:35 | NUR ---
Per Dr. Bal made pt DNR.
[2020-02-27 10:55] VITALS: BP 160/77
== END 2020-02-27 10:55 | disposition short-term general hospital (02) ==
LOC: EDUNIT# 09:09 → ER 09:10
DX: S00.03XA Contusion of scalp, initial encounter (principal); S06.5X0A Traumatic subdural hemorrhage without loss of consciousness, initial encounter; D68.318 Other hemorrhagic disorder due to intrinsic circulating anticoagulants, antibodies, or inhibitors; I48.91 Unspecified atrial fibrillation; E78.00 Pure hypercholesterolemia, unspecified; I10 Essential (primary) hypertension; F32.9 Major depressive disorder, single episode, unspecified; F41.9 Anxiety disorder, unspecified; G89.29 Other chronic pain; M54.9 Dorsalgia, unspecified; E11.9 Type 2 diabetes mellitus without complications; F03.90 Unspecified dementia, unspecified severity, without behavioral disturbance, psychotic disturbance, mood disturbance, and anxiety; Z82.49 Family history of ischemic heart disease and other diseases of the circulatory system; Z95.0 Presence of cardiac pacemaker; Z88.2 Allergy status to sulfonamides; Z79.84 Long term (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 oral hypoglycemic drugs; Z79.01 Long term (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; Z79.891 Long term (current) use of opiate analgesic; W10.8XXA Fall (on) (from) other stairs and steps, initial encounter
CPT/HCPCS: 51702; 70450; 71260; 72125; 74177; 80048; 80076; 81000; 82962; 83735; 85027; 85610; 85730; 86850; 86900; 86901; 93041; 99291; G0480; 36415; 80320

== ENCOUNTER 2020-06-02 18:29 | Emergency (ER) | payer MEDICARE, MEDICAID ==
[~2020-06-02] VITALS: Ht 175 cm; Wt 84.0 kg
[~2020-06-02 18:29] MED LIST changes: -AMIO200T4 PO; +AMIO200T6 PO; +AMLO-251 PO; -AMLO10TA7 PO; -CLON0.2T PO
[2020-06-02] MEDS ORDERED: TETANUS,DIPTH,PERTUSS P/F (BOOSTRIX) 0.5 ML VIAL IM ONE (18:45)
--- NOTE | 2020-06-02 18:56 | ED Fall/Injury ---
General Chief Complaint: Trauma-Non Activation Stated Complaint: FELL AND HIT HEAD Nursing Triage Note: STATES PT FELL WHILE WALKING TO THE CAR AFTER EATING. CC OF NECK PAIN (C COLLAR APPLIED AT TRIAGE), SKIN TEAR ON LT FOREARM, LOWER BACK, AND RT KNEE PAIN. DENIES LOC. Source: patient, family Exam Limitations: other (Dementia) History of Present Illness Date Seen by Provider: Jun 02, 2020 Time Seen by Provider: 18:32 Initial Comments Ronak is a 74-year-old gentleman who stumbled while getting into the car after going out to eat this evening. He comes in accompanied by his , Krystal. He has dementia and is hyperreactive to stimuli, often hollering out inappropriately. His states this behavior is not unusual for him. He complains primarily of pain in the left parietal scalp where he has a contusion and/or hematoma, lower back, right knee, and left arm. There is shallow skin tear/abrasion on the left arm. Allergies and Home Medications Allergies Coded Allergies: Sulfa (Sulfonamide Antibiotics) (Verified Allergy, Unknown, 01/14/19) Home Medications Amiodarone HCl 200 Mg Tablet, 200 MG PO DAILY, (Reported) LAST FILLED 06-16-2019 #180 Amlodipine Besylate 10 Mg Tablet, 10 MG PO DAILY, (Reported) Clonazepam 1 Mg Tablet, 1 MG PO BID PRN for ANXIETY, (Reported) Clonazepam 1 Mg Tablet, 2 MG PO HS PRN for ANXIETY, (Reported) Clonidine HCl 0.2 Mg Tablet, 0.2 MG PO BID, (Reported) LAST FILLED 07-21-2019 #180/90 DAY SUPPLY Donepezil HCl 10 Mg Tablet, 10 MG PO HS, (Reported) LAST FILLED 08-15-2019 #90/90 DAY SUPPLY Enalapril Maleate 5 Mg Tablet, 5 MG PO BID, (Reported) LAST FILLED 08-15-2019 #180/90 DAY SUPPLY Hydrocodone/Acetaminophen 1 Each Tablet, 1 TAB PO Q6H PRN for PAIN-MODERATE (5- 7), (Reported) Lovastatin 20 Mg Tablet, 20 MG PO HS, (Reported) LAST FILLED 08-15-2019 #90/90 DAY SUPPLY Metformin HCl 500 Mg Tablet, 500 MG PO DAILY, (Reported) Metformin HCl 500 Mg Tablet, 1,000 MG PO HS, (Reported) TAKES 2 (500MG) TABS Paroxetine HCl 40 Mg Tablet, 40 MG PO DAILY, (Reported) LAST FILLED 08-15-2019 #90/90 DAY SUPPLY Pioglitazone HCl 30 Mg Tablet, 30 MG PO DAILY, (Reported) Potassium Chloride 20 Meq Tab.er.prt, 10 MEQ PO DAILY, (Reported) TAKES OF A 20MEQ Rivaroxaban 20 Mg Tablet, 20 MG PO DAILY, (Reported) Topiramate 50 Mg Tablet, 50 MG PO HS, (Reported) Patient Home Medication List Home Medication List Reviewed: Yes Review of Systems Review of Systems Constitutional: no symptoms reported Eyes: No Symptoms Reported Ears, Nose, Mouth, Throat: no symptoms reported Respiratory: no symptoms reported Cardiovascular: no symptoms reported Gastrointestinal: no symptoms reported Genitourinary: no symptoms reported Musculoskeletal: see HPI Skin: see HPI Psychiatric/Neurological: See HPI Past Rblbrsn-Gzjarn-Aexibh Hx Past Med/Social Hx: Reviewed Nursing Past Med/Soc Hx Patient Social History Alcohol Use: Denies Use Smoking Status: Never a Smoker 2nd Hand Smoke Exposure: No Recent Infectious Disease Expo: No Recent Hopitalizations: Yes (02/2020) Immunizations Up To Date Tetanus Booster (TDap): Unknown PED Vaccines UTD: Yes Date of Pneumonia Vaccine: Jan 22, 2008 Date of Influenza Vaccine: Mar 10, 2018 Seasonal Allergies Seasonal Allergies: No Past Medical History Surgeries: Yes (fatty tumor removed, R shoulder, RT KNEE REPLACED) Orthopedic, Pacemaker Respiratory: Yes Sleep Apnea Currently Using CPAP: No Currently Using BIPAP: No Cardiac: Yes (meditronic PACEMAKER) Atrial Fibrillation, High Cholesterol, Hypertension Neurological: Yes Dementia, Stroke Reproductive Disorders: No Sexually Transmitted Disease: No Genitourinary: Yes Kidney Stones Gastrointestinal: Yes Chronic Constipation Musculoskeletal: Yes (right knee arthritis) Arthritis, Chronic Back Pain Endocrine: Yes Diabetes, Non-Insulin dep HEENT: No Cancer: No Psychosocial: Yes Anxiety, Depression Integumentary: No Blood Disorders: No Adverse Reaction/Blood Tranf: No Family Medical History Cardiovascular disease 19 MOTHER No Pertinent Family Hx Physical Exam Vital Signs Vital Signs - First Documented 06/02/20 18:38 Temp 35.5 Pulse 80 Resp 22 B/P (MAP) 123/71 (88) Pulse Ox 94 O2 Delivery Room Air Capillary Refill : Less Than 3 Seconds Height, Weight, BMI Height: 5'8.50" Weight: 223lbs. 4.0oz. [id number]; 27.00 BMI Method:Stated General Appearance: WD/WN, mild distress HEENT: PERRL/EOMI, other (Contusion with swelling and abrasion on the right parietal scalp) Neck: normal inspection, tender midline Cardiovascular: regular rate, rhythm, no edema, no murmur Respiratory: lungs clear, normal breath sounds, no respiratory distress, no accessory muscle use Gastrointestinal: normal bowel sounds, non tender, soft Extremities: other (Right knee tenderness with scabbed abrasion. 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 Hyperreactive to stimuli) Skin: normal color, warm/dry [place] Coma Score Best Eye Response: (4) Open Spontaneously Best Verbal Response: (5) Oriented Best Motor Response: (6) Obeys Commands [place] Total: 15 Progress/Results/Core Measures Results/Orders My Orders Orders - MARTHA DAWSON MD Ct Head/Cervical Spine Wo (06/02/20 18:43) Ct Lumbar Spine Wo (06/02/20 18:43) Chest 1 View, Ap/Pa Only (06/02/20 18:43) Knee, Right, 3 Views (06/02/20 18:43) Pelvis (06/02/20 18:43) Dipht,Pertuss(Acell),Tet Adult (Boostrix (06/02/20 18:45) Medications Given in ED Current Medications Medications Dose Ordered Sig/Eris Route Start Time Stop Time Status Last Admin Dose Admin Diphtheria/ Tetanus/Acell Pertussis 0.5 ml ONCE ONCE IM 06/02/20 18:45 06/02/20 18:47 DC 06/02/20 19:46 0.5 ML Vital Signs/I&O 06/02/20 18:38 Temp 35.5 Pulse 80 Resp 22 B/P (MAP) 123/71 (88) Pulse Ox 94 O2 Delivery Room Air Blood Pressure Mean: 88 Progress Progress Note : Progress Note No acute injuries were identified on imaging studies. Tetanus booster was administered due to the skin tear on the left forearm. This was cleaned with water and chlorhexidine soap and bandaged. There was notation of fluid in the right mastoid on CT of the head. This area was reexamined. He was found to have no tenderness over the mastoid and a clear tympanic membrane. Patient was discharged into the care of of his . Diagnostic Imaging Diagonstic Imaging: Xray Plain Films/CT/US/NM/MRI: chest Comments Chest x-ray viewed by me and report reviewed. See report below: NAME: NATHAN BAKER [facility] REC#: [id number] PT STATUS: REG ER : 1945 PHYSICIAN: MARTHA DAWSON MD ADMIT DATE: 06/02/20/ER Draft Date of Exam:06/02/20 CHEST 1 VIEW, AP/PA ONLY INDICATION: Fall. EXAMINATION: Portable chest. FINDINGS: Cardiomegaly. Pacemaker on the left with leads in good position. The lungs are well-aerated. There is a slight increase in interstitial markings, bilaterally, which has developed. No pneumothorax or pleural effusion. No rib fracture. IMPRESSION: Cardiomegaly with mild prominence of interstitial markings. This has developed since previous exam of 12/27/2019. Dictated on workstation # [id number] Dict: 06/02/201913 Trans: 06/02/201917 [facility] [id number] Interpreted by: CASSIE BRENNAN MD Diagonstic Imaging: Xray Plain Films/CT/US/NM/MRI: pelvis Comments Pelvis x-ray viewed by me and report reviewed. See report below: NAME: NATHAN BAKER [facility] REC#: [id number] PT STATUS: REG ER : 1945 PHYSICIAN: MARTHA DAWSON MD ADMIT DATE: 06/02/20/ER Draft Date of Exam:06/02/20 PELVIS INDICATION: Fall. EXAMINATION: AP pelvis. FINDINGS: The SI joints and pubic symphysis are in good alignment. No fracture is demonstrated. Femoral heads are normal articulation with the acetabuli. Mild degenerative change is noted of the right hip. There is rather advanced degenerative disease noted along the lumbosacral spine. IMPRESSION: No acute abnormality. Dictated on workstation # [id number] Dict: 06/02/201914 Trans: 06/02/201918 [facility] [id number] Interpreted by: CASSIE BRENNAN MD Diagonstic Imaging: Xray Plain Films/CT/US/NM/MRI: knee Comments Right knee x-ray viewed by me and report reviewed. See report below: NAME: NATHAN BAKER [facility] REC#: [id number] PT STATUS: REG ER : 1945 PHYSICIAN: MARTHA DAWSON MD ADMIT DATE: 06/02/20/ER Draft Date of Exam:06/02/20 KNEE, RIGHT, 3 VIEWS INDICATION: Fall. Knee pain. EXAMINATION: Right knee. FINDINGS: There is total arthroplasty of the right knee. Components are all in good alignment. No hardware loosening. No evidence of cortical bony fracture. IMPRESSION: Normal total arthroplasty right knee. Dictated on workstation # [id number] Dict: 06/02/201917 Trans: 06/02/201923 [facility] [id number] Interpreted by: CASSIE BRENNAN MD Diagonstic Imaging: CT Plain Films/CT/US/NM/MRI: c-spine, head Comments CT head and cervical spine viewed by me and report reviewed. See report below: NAME: NATHAN BAKER [facility] REC#: [id number] PT STATUS: REG ER : 1945 PHYSICIAN: MARTHA DAWSON MD ADMIT DATE: 06/02/20/ER Draft Date of Exam:06/02/20 CT HEAD/CERVICAL SPINE WO PROCEDURE: CT head and CT cervical spine without contrast. TECHNIQUE: Multiple contiguous axial images were obtained through the brain and cervical spine without the use of intravenous contrast. Sagittal and coronal reformations through the cervical spine were then performed. Auto Exposure Controls were utilized during the CT exam to meet ALARA standards for radiation dose reduction. INDICATION: Fall with head and neck injuries. COMPARISON: 02/27/2020. FINDINGS: CT head: Ventricles and sulci are diffusely prominent. Encephalomalacia in the right posterior cerebral arterial territory is again noted without significant change. There has been development of low density within the anterior left temporal lobe at site of previous hematoma indicating developing encephalomalacia. There is also mild thinning of the calvarium along the anterior middle cranial fossa on the left as well; however, this is not significantly changed. There is no CT evidence of acute intracranial hemorrhage or acute calvarial fracture. There is fluid present within the right mastoid air cells which is an adverse change. Mild mural thickening is again noted within the left maxillary sinus. IMPRESSION: No definite acute intracranial abnormality is identified; however, there is fluid now present within right mastoid air cells and clinical correlation is recommended. CT cervical spine: Multiple contiguous axial CT images of the cervical spine were obtained with sagittal and coronal reformatted images produced. There is loss of normal cervical lordosis. Vertebral body heights and disc spaces are maintained. Prevertebral soft tissues are unremarkable, and there is no evidence of paraspinous hematoma. There is diffuse disc space narrowing and endplate spurring from C5 through upper thoracic spine. IMPRESSION: Loss of normal cervical lordosis which may be due to positioning or muscle spasm. There is, otherwise, no CT evidence of acute cervical spinal abnormality. Dictated on workstation # [id number] Dict: 06/02/201929 Trans: 06/02/201939 [facility] [id number] Interpreted by: ALLYSON ALFARO MD Diagonstic Imaging: CT Plain Films/CT/US/NM/MRI: other (lumbar spine) Comments NAME: NATHAN BAKER [facility] REC#: [id number] PT STATUS: REG ER : 1945 PHYSICIAN: MARTHA DAWSON MD ADMIT DATE: 06/02/20/ER Signed Date of Exam:06/02/20 CT LUMBAR SPINE WO PROCEDURE: CT lumbar spine without contrast. TECHNIQUE: Multiple contiguous axial images were obtained through the lumbar spine without the use of intravenous contrast. Sagittal and coronal reformations were then performed. Auto Exposure Controls were utilized during the CT exam to meet ALARA standards for radiation dose reduction. INDICATION: Fall. Back pain. FINDINGS: There is good alignment of the lumbosacral spine. Body height is well maintained without compression fracture. Facets show good alignment without pars defect. There is advanced disc disease from L2 through S1 with desiccation of the discs and loss of disc space height. Hypertrophic bony lipping of the endplates causing moderate foraminal encroachment, bilaterally, at L3-L4, L4-L5 and L5-S1. The paraspinal soft tissues appear normal. There are large bridging osteophytes noted anteriorly at L4-L5 and L5-S1. IMPRESSION: 1. Advanced degenerative disc and facet disease with moderate encroachment upon the foramen. 2. No evidence of acute fracture. Dictated by: Dictated on workstation # [id number] Dict: 06/02/201936 Trans: 06/02/201944 [facility] [id number] Interpreted by: CASSIE BRENNAN MD Electronically signed by: CASSIE BRENNAN MD 06/02/201944 Reviewed: Reviewed by Me Departure Impression Primary Impression: Fall on same level from tripping Additional Impressions: Contusion of scalp Qualified Codes: S00.03XA - Contusion of scalp, initial encounter Skin tear of left upper arm without complication Qualified Codes: S41.112A - Laceration without foreign body of left upper arm, initial encounter Dementia Qualified Codes: F03.91 - Unspecified dementia with behavioral disturbance Disposition: 01 HOME, SELF-CARE Condition: Improved Departure-Patient Inst. Decision time for Depature: 19:55 Referrals: NO,LOCAL PHYSICIAN (PCP/Family) Primary Care Physician Patient Instructions: Contusion (DC) Add. Discharge Instructions: You may continue taking Tylenol (acetaminophen) up to 1000 mg every 6 hours as needed for pain. You may add ibuprofen sparingly for breakthrough pain unless otherwise instructed by your doctors. Return to care if you have worsening symptoms. Call with any questions or co ncerns. You may ice the injured areas in 20-minute intervals as needed to help with pain and swelling. All discharge instructions reviewed with patient and/or family. Voiced understanding. MARTHA DAWSON MD Jun 02, 2020 18:56
--- NOTE | 2020-06-02 19:19 | Diagnostic Imaging Report ---
INDICATION: Fall. EXAMINATION: Portable chest. FINDINGS: Cardiomegaly. Pacemaker on the left with leads in good position. The lungs are well-aerated. There is a slight increase in interstitial markings, bilaterally, which has developed. No pneumothorax or pleural effusion. No rib fracture. IMPRESSION: Cardiomegaly with mild prominence of interstitial markings. This has developed since previous exam of 12/27/2019. Dictated by: Dictated on workstation # [id number]
--- NOTE | 2020-06-02 19:19 | Diagnostic Imaging Report ---
INDICATION: Fall. EXAMINATION: AP pelvis. FINDINGS: The SI joints and pubic symphysis are in good alignment. No fracture is demonstrated. Femoral heads are normal articulation with the acetabuli. Mild degenerative change is noted of the right hip. There is rather advanced degenerative disease noted along the lumbosacral spine. IMPRESSION: No acute abnormality. Dictated by: Dictated on workstation # [id number]
--- NOTE | 2020-06-02 19:24 | Diagnostic Imaging Report ---
INDICATION: Fall. Knee pain. EXAMINATION: Right knee. FINDINGS: There is total arthroplasty of the right knee. Components are all in good alignment. No hardware loosening. No evidence of cortical bony fracture. IMPRESSION: Normal total arthroplasty right knee. Dictated by: Dictated on workstation # [id number]
--- NOTE | 2020-06-02 19:41 | Diagnostic Imaging Report ---
PROCEDURE: CT head and CT cervical spine without contrast. TECHNIQUE: Multiple contiguous axial images were obtained through the brain and cervical spine without the use of intravenous contrast. Sagittal and coronal reformations through the cervical spine were then performed. Auto Exposure Controls were utilized during the CT exam to meet ALARA standards for radiation dose reduction. INDICATION: Fall with head and neck injuries. COMPARISON: 02/27/2020. FINDINGS: CT head: Ventricles and sulci are diffusely prominent. Encephalomalacia in the right posterior cerebral arterial territory is again noted without significant change. There has been development of low density within the anterior left temporal lobe at site of previous hematoma indicating developing encephalomalacia. There is also mild thinning of the calvarium along the anterior middle cranial fossa on the left as well; however, this is not significantly changed. There is no CT evidence of acute intracranial hemorrhage or acute calvarial fracture. There is fluid present within the right mastoid air cells which is an adverse change. Mild mural thickening is again noted within the left maxillary sinus. IMPRESSION: No definite acute intracranial abnormality is identified; however, there is fluid now present within right mastoid air cells and clinical correlation is recommended. CT cervical spine: Multiple contiguous axial CT images of the cervical spine were obtained with sagittal and coronal reformatted images produced. There is loss of normal cervical lordosis. Vertebral body heights and disc spaces are maintained. Prevertebral soft tissues are unremarkable, and there is no evidence of paraspinous hematoma. There is diffuse disc space narrowing and endplate spurring from C5 through upper thoracic spine. IMPRESSION: Loss of normal cervical lordosis which may be due to positioning or muscle spasm. There is, otherwise, no CT evidence of acute cervical spinal abnormality. Dictated by: Dictated on workstation # [id number]
--- NOTE | 2020-06-02 19:42 | Diagnostic Imaging Report ---
PROCEDURE: CT lumbar spine without contrast. TECHNIQUE: Multiple contiguous axial images were obtained through the lumbar spine without the use of intravenous contrast. Sagittal and coronal reformations were then performed. Auto Exposure Controls were utilized during the CT exam to meet ALARA standards for radiation dose reduction. INDICATION: Fall. Back pain. FINDINGS: There is good alignment of the lumbosacral spine. Body height is well maintained without compression fracture. Facets show good alignment without pars defect. There is advanced disc disease from L2 through S1 with desiccation of the discs and loss of disc space height. Hypertrophic bony lipping of the endplates causing moderate foraminal encroachment, bilaterally, at L3-L4, L4-L5 and L5-S1. The paraspinal soft tissues appear normal. There are large bridging osteophytes noted anteriorly at L4-L5 and L5-S1. IMPRESSION: 1. Advanced degenerative disc and facet disease with moderate encroachment upon the foramen. 2. No evidence of acute fracture. Dictated by: Dictated on workstation # [id number]
[2020-06-02 20:20] VITALS: BP 123/71
== END 2020-06-02 20:20 | disposition home or self-care (01) ==
LOC: EDUNIT# 18:29 → ER 18:32
DX: S41.112A Laceration without foreign body of left upper arm, initial encounter (principal); S00.03XA Contusion of scalp, initial encounter; S80.211A Abrasion, right knee, initial encounter; F03.90 Unspecified dementia, unspecified severity, without behavioral disturbance, psychotic disturbance, mood disturbance, and anxiety; I10 Essential (primary) hypertension; E78.00 Pure hypercholesterolemia, unspecified; I48.91 Unspecified atrial fibrillation; E11.9 Type 2 diabetes mellitus without complications; G89.29 Other chronic pain; M54.9 Dorsalgia, unspecified; F41.9 Anxiety disorder, unspecified; F32.9 Major depressive disorder, single episode, unspecified; Z88.2 Allergy status to sulfonamides; Z95.0 Presence of cardiac pacemaker; Z86.73 Personal history of transient ischemic attack (TIA), and cerebral infarction without residual deficits; Z23 Encounter for immunization; Z82.49 Family history of ischemic heart disease and other diseases of the circulatory system; Z79.01 Long term (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; Z79.84 Long term (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 oral hypoglycemic drugs; Z79.891 Long term (current) use of opiate analgesic; W01.0XXA Fall on same level from slipping, tripping and stumbling without subsequent striking against object, initial encounter
CPT/HCPCS: 70450; 71045; 72125; 72131; 72170; 73562; 90715

== ENCOUNTER 2020-11-16 07:20 | Inpatient (IN) | payer MEDICARE, MEDICAID ==
[~2020-11-16] VITALS: Ht 172 cm; Wt 91.0 kg
[2020-11-16] MEDS ORDERED: cefTRIAXone 1,000 MG in WATER (STERILE) FOR INJECTION 10 ML IV ONE (07:30)
[2020-11-16] MEDS ORDERED: LACTATED RINGERS 1,000 ML IV ONE ×2 (07:30)
--- NOTE | 2020-11-16 07:30 | ED General ---
General Stated Complaint: WEAKNESS, UTI Source of Information: Patient Exam Limitations: No Limitations History of Present Illness Date Seen by Provider: Nov 16, 2020 Time Seen by Provider: 07:18 Initial Comments Patient to the ER by private conveyance from home with chief complaint of increased somnolence, decreased activity, and 's concern for a urinary tract infection. Is not on antibiotics. Has had a low-grade fever according to EMS. Patient states he needs to urinate. No diarrhea or constipation. No nausea or vomiting. Last urine output was yesterday afternoon. Poor appetite. He is not having any complaints of dysuria prostatism. He is no longer on blood thinners after a fall in February 2020 resulting in brain bleeds. He has a history of Parkinson's. EMS reports blood sugar 120. Dr. Arreguin primary care at counts include [facility] beds at the [facility]. History of atrial flutter. Allergies and Home Medications Allergies Coded Allergies: Sulfa (Sulfonamide Antibiotics) (Verified Allergy, Unknown, 01/14/19) Home Medications Amiodarone HCl 200 Mg Tablet, 200 MG PO DAILY, (Reported) Last Action: Reviewed Amlodipine Besylate 10 Mg Tablet, 10 MG PO DAILY, (Reported) Last Action: Reviewed Carbidopa/Levodopa 1 Each Tablet, 1 EA PO 0600,1800, (Reported) Last Action: Reviewed Clonazepam 0.5 Mg Tablet, 0.5 MG PO 1800, (Reported) Last Action: Reviewed Clonazepam 0.5 Mg Tablet, 0.5 MG PO DAILY PRN for ANXIETY, (Reported) Last Action: Reviewed Enalapril Maleate 5 Mg Tablet, 5 MG PO BID, (Reported) Last Action: Reviewed Lactulose 10 Gm/15 Ml Solution, 30 ML PO DAILY, (Reported) Last Action: Reviewed Levetiracetam 500 Mg Tablet, 500 MG PO BID, (Reported) Last Action: Reviewed Lovastatin 20 Mg Tablet, 20 MG PO HS, (Reported) Last Action: Reviewed Metformin HCl 500 Mg Tablet, 500 MG PO DAILY, (Reported) Last Action: Reviewed Metformin HCl 500 Mg Tablet, 1,000 MG PO 1800, (Reported) TAKES 2 (500MG) TABS Last Action: Reviewed Mirabegron 50 Mg Tab.er.24h, 50 MG PO DAILY, (Reported) Last Action: Reviewed Olanzapine 10 Mg Tablet, 10 MG PO DAILY, (Reported) Last Action: Reviewed Olanzapine 5 Mg Tablet, 5 MG PO DAILY, (Reported) Last Action: Reviewed Pioglitazone HCl 30 Mg Tablet, 30 MG PO DAILY, (Reported) Last Action: Reviewed Potassium Chloride 10 Meq Tablet.er, 10 MEQ PO DAILY, (Reported) Last Action: Reviewed Tamsulosin HCl 0.4 Mg Cap, 0.8 MG PO 1800, (Reported) TAKES 2 (0.4MG) CAPS Last Action: Reviewed Patient Home Medication List Home Medication List Reviewed: Yes Review of Systems Review of Systems Constitutional: chills, fever, malaise EENTM: No ear discharge, No ear pain Respiratory: No cough, No phlegm, No short of breath Cardiovascular: No chest pain, No palpitations Gastrointestinal: No abdominal pain, No constipation, No diarrhea, No nausea Genitourinary: No discharge; dysuria Musculoskeletal: No back pain, No joint pain Skin: No pruritus, No rash All Other Systems Reviewed Negative Unless Noted: Yes Past Unuqunz-Ekodsw-Rwgukm Hx Patient Social History Tobacco Use?: No Use of E-Cig and/or Vaping dev: No Substance use?: No Alcohol Use?: No Immunizations Up To Date Tetanus Booster (TDap): Unknown PED Vaccines UTD: Yes Seasonal Allergies Seasonal Allergies: No Past Medical History Surgeries: Yes (fatty tumor removed, R shoulder, RT KNEE REPLACED) Orthopedic, Pacemaker Respiratory: Yes Sleep Apnea Currently Using CPAP: No Currently Using BIPAP: No Cardiac: Yes (meditronic PACEMAKER) Atrial Fibrillation, High Cholesterol, Hypertension Neurological: Yes Dementia, Stroke Reproductive Disorders: No Sexually Transmitted Disease: No Genitourinary: Yes Kidney Stones Gastrointestinal: Yes Chronic Constipation Musculoskeletal: Yes (right knee arthritis) Arthritis, Chronic Back Pain Endocrine: Yes Diabetes, Non-Insulin dep HEENT: No Cancer: No Psychosocial: Yes Anxiety, Depression Integumentary: No Blood Disorders: No Adverse Reaction/Blood Tranf: No Family Medical History Cardiovascular disease 19 MOTHER No Pertinent Family Hx Physical Exam-Suspected Sepsis Physical Exam Vital Signs Vital Signs - First Documented 11/16/20 11/16/20 07:20 11:30 Temp 37.2 Pulse 65 Resp 21 B/P (MAP) 114/78 (90) Pulse Ox 92 O2 Delivery Nasal Cannula O2 Flow Rate 2.00 Capillary Refill : Height, Weight, BMI Height: 5'8.50" Weight: 223lbs. 4.0oz. [id number]; 27.00 BMI Method:Stated General Appearance: WD/WN, Mild Distress Eyes: Bilateral Eye Normal Inspection, Bilateral Eye PERRL, Bilateral Eye EOMI HEENT: PERRL/EOMI, Pharynx Normal, Moist Mucous Membranes Neck: Full Range of Motion, Normal Inspection Respiratory: Lungs Clear, Normal Breath Sounds, No Accessory Muscle Use, No Respiratory Distress Cardiovascular: Regular Rate, Rhythm, No Edema, Normal Peripheral Pulses Gastrointestinal: Normal Bowel Sounds, Non Tender, Soft Extremity: Normal Capillary Refill, Normal Inspection, Pedal Edema (Trace bilateral) Neurologic/Psychiatric: Alert, Oriented x3, No Motor/Sensory Deficits Skin: normal color, warm/dry Focused Exam Lactate Level 11/16/20 07:22: Lactic Acid Level 1.40 11/16/20 12:06: Lactic Acid Level 1.22 Lactic Acid Level Laboratory Tests Test 11/16/20 12:06 Lactic Acid Level 1.22 MMOL/L (0.50-2.00) Progress/Results/Core Measures Suspected Sepsis SIRS Temperature: Pulse: Respiratory Rate: Laboratory Tests 11/16/20 07:22: White Blood Count 17.2H Blood Pressure / Mean: 11/16/20 07:22: Lactic Acid Level 1.40 11/16/20 12:06: Lactic Acid Level 1.22 Laboratory Tests 11/16/20 07:22: Creatinine 1.52H, INR Comment 1.3, Platelet Count 191, Total Bilirubin 0.4 Results/Orders Lab Results Laboratory Tests Test 11/16/20 07:22 11/16/20 07:41 11/16/20 07:51 11/16/20 07:52 Range/Units White Blood Count 17.2 H 4.3-11.0 10^3/uL Red Blood Count 4.24 L 4.30-5.52 10^6/uL Hemoglobin 12.0 L 13.3-17.7 g/dL Hematocrit 39 L 40-54 % Mean Corpuscular Volume 93 80-99 fL Mean Corpuscular Hemoglobin 28 25-34 pg Mean Corpuscular Hemoglobin Concent 31 L 32-36 g/dL Red Cell Distribution Width 16.4 H 10.0-14.5 % Platelet Count 191 130-400 10^3/uL Mean Platelet Volume 10.3 9.0-12.2 fL Immature Granulocyte % (Auto) 1 % Neutrophils (%) (Auto) 84 H 42-75 % Lymphocytes (%) (Auto) 8 L 12-44 % Monocytes (%) (Auto) 7 0-12 % Eosinophils (%) (Auto) 0 0-10 % Basophils (%) (Auto) 0 0-10 % Neutrophils # (Auto) 14.3 H 1.8-7.8 10^3/uL Lymphocytes # (Auto) 1.4 1.0-4.0 10^3/uL Monocytes # (Auto) 1.3 H 0.0-1.0 10^3/uL Eosinophils # (Auto) 0.0 0.0-0.3 10^3/uL Basophils # (Auto) 0.0 0.0-0.1 10^3/uL Immature Granulocyte # (Auto) 0.1 0.0-0.1 10^3/uL Neutrophils % (Manual) 87 % Lymphocytes % (Manual) 6 % Monocytes % (Manual) 7 % Blood Morphology Comment NORMAL Prothrombin Time 16.1 H 12.2-14.7 SEC INR Comment 1.3 0.8-1.4 Activated Partial Thromboplast Time 38 H 24-35 SEC Sodium Level 141 135-145 MMOL/L Potassium Level 5.2 H 3.6-5.0 MMOL/L Chloride Level 111 H 98-107 MMOL/L Carbon Dioxide Level 16 L 21-32 MMOL/L Anion Gap 14 5-14 MMOL/L Blood Urea Nitrogen 36 H 7-18 MG/DL Creatinine 1.52 H 0.60-1.30 MG/DL Estimat Glomerular Filtration Rate 45 BUN/Creatinine Ratio 24 Glucose Level 134 H 70-105 MG/DL Lactic Acid Level 1.40 0.50-2.00 MMOL/L Calcium Level 9.1 8.5-10.1 MG/DL Corrected Calcium 9.5 8.5-10.1 MG/DL Total Bilirubin 0.4 0.1-1.0 MG/DL Aspartate Amino Transf (AST/SGOT) 10 5-34 U/L Alanine Aminotransferase (ALT/SGPT) 7 0-55 U/L Alkaline Phosphatase 81 40-136 U/L Total Protein 7.1 6.4-8.2 GM/DL Albumin 3.5 3.2-4.5 GM/DL Procalcitonin 0.21 H <0.10 NG/ML Glucometer 25 *L 70-110 MG/DL Urine Color YELLOW Urine Clarity CLEAR Urine pH 5.0 5-9 Urine Specific [place] 1.020 1.016-1.022 Urine Protein NEGATIVE NEGATIVE Urine Glucose (UA) NEGATIVE NEGATIVE Urine Ketones NEGATIVE NEGATIVE Urine Nitrite NEGATIVE NEGATIVE Urine Bilirubin NEGATIVE NEGATIVE Urine Urobilinogen 0.2 < = 1.0 MG/DL Urine Leukocyte Esterase NEGATIVE NEGATIVE Urine RBC (Auto) NEGATIVE NEGATIVE Urine RBC 0-2 /HPF Urine WBC 0-2 /HPF Urine Crystals PRESENT H /LPF Urine Amorphous Sediment FEW FELIPA URATES H /LPF Urine Bacteria TRACE /HPF Urine Casts NONE /LPF Urine Mucus NEGATIVE /LPF Urine Culture Indicated NO Urine Opiates Screen NEGATIVE NEGATIVE Urine Oxycodone Screen NEGATIVE NEGATIVE Urine Methadone Screen NEGATIVE NEGATIVE Urine Propoxyphene Screen NEGATIVE NEGATIVE Urine Barbiturates Screen NEGATIVE NEGATIVE Ur Tricyclic Antidepressants Screen NEGATIVE NEGATIVE Urine Phencyclidine Screen NEGATIVE NEGATIVE Urine Amphetamines Screen NEGATIVE NEGATIVE Urine Methamphetamines Screen NEGATIVE NEGATIVE Urine Benzodiazepines Screen NEGATIVE NEGATIVE Urine Cocaine Screen NEGATIVE NEGATIVE Urine Cannabinoids Screen NEGATIVE NEGATIVE Influenza Type A (RT-PCR) Not Detected Not Detecte Influenza Type B (RT-PCR) Not Detected Not Detecte SARS-CoV-2 RNA (RT-PCR) Not Detected Not Detecte Test 11/16/20 08:07 11/16/20 10:53 11/16/20 11:35 11/16/20 12:06 Range/Units Glucometer 188 H 144 H 149 H 70-110 MG/DL Lactic Acid Level 1.22 0.50-2.00 MMOL/L Test 11/16/20 13:32 Range/Units Glucometer 173 H 70-110 MG/DL My Orders Orders - DOUGLAS HERNANDEZ Cbc With Automated Diff (11/16/20 07:24) Comprehensive Metabolic Panel (11/16/20 07:24) Blood Culture (11/16/20 07:24) Sputum Culture (11/16/20 07:24) Urinalysis (11/16/20 07:24) Urine Culture (11/16/20 07:24) Protime With Inr (11/16/20 07:24) Partial Thromboplastin Time (11/16/20 07:24) Chest 1 View, Ap/Pa Only (11/16/20 07:24) Ed Iv/Invasive Line Start (11/16/20 07:24) Ed Iv/Invasive Line Start (11/16/20 07:24) Vital Signs Adult Sepsis Patie Q15M (11/16/20 07:24) O2 (11/16/20 07:24) Remove Rings In Anticipation O (11/16/20 07:24) Lactic Acid Analyzer (11/16/20 07:24) Lactated Ringers (Lr 1000 Ml Iv Solution (11/16/20 07:30) Ceftriaxone (Rocephin) (11/16/20 07:30) Lactated Ringers (Lr 1000 Ml Iv Solution (11/16/20 07:30) Drug Screen Stat (Urine) (11/16/20 07:26) Continuous Ekg Monitoring (11/16/20 07:27) Ekg Tracing (11/16/20 07:27) Accucheck Stat ONCE (11/16/20 07:30) Manual Differential (11/16/20 07:22) D50w (Emergency) Syringe (Dextrose 50% 5 (11/16/20 07:45) D50w (Emergency) Syringe (Dextrose 50% 5 (11/16/20 07:43) D5 Ns 1000 Ml Iv Solution (Dextrose 5%/0 (11/16/20 07:45) Covid 19 Inhouse Test (11/16/20 07:51) Influenza A And B By Pcr (11/16/20 07:51) Accucheck Stat ONCE (11/16/20 08:06) Accucheck Stat ONCE (11/16/20 10:51) Medications Given in ED Current Medications Medications Dose Ordered Sig/Eris Route Start Time Stop Time Status Last Admin Dose Admin Ceftriaxone Sodium 1000 mg/ Sterile Water 10 ml @ 200 mls/hr ONCE ONCE IV 11/16/20 07:30 11/16/20 07:32 DC 11/16/20 09:12 200 MLS/HR Dextrose 50 ml ONCE ONCE IV 11/16/20 07:45 11/16/20 07:46 DC 11/16/20 07:46 50 ML Dextrose/Sodium Chloride 1,000 ml @ 100 mls/hr Q10H ONCE IV 11/16/20 07:45 11/16/20 12:33 DC 11/16/20 07:59 100 MLS/HR Lactated Ringer's 1,000 ml @ 0 mls/hr Q0M ONCE IV 11/16/20 07:30 11/16/20 07:31 DC 11/16/20 08:04 1,000 MLS/HR Vital Signs/I&O 11/16/20 11/16/20 11/16/20 11/16/20 07:20 11:09 11:30 11:59 Temp 37.2 Pulse 65 65 64 Resp 21 21 20 B/P (MAP) 114/78 (90) 114/78 (90) 142/86 (104) Pulse Ox 92 92 90 90 O2 Delivery Nasal Cannula Nasal Cannula O2 Flow Rate 2.00 2.00 11/16/20 11/16/20 11/16/20 11/16/20 12:00 12:00 12:16 12:35 Temp 36.8 Pulse 62 69 62 Resp 32 B/P (MAP) 122/66 (84) Pulse Ox 92 90 O2 Delivery Nasal Cannula O2 Flow Rate 2.00 11/16/20 11/16/20 13:13 13:14 Pulse 69 69 B/P (MAP) 142/86 142/86 Capillary Refill : Progress Note : Time: 07:33 Progress Note 2 more liters in addition to the liter he is got would bring as above 30 mL/kg as he does appear dry/desiccated. We will initiate a septic work-up given his subjective history of fever and likely will have a white count. We are operating under the assumption he has UTI since he has had decreased urine output and dysuria. His lungs sound clear. He is not having any problems with oxygenation. Accu-Chek. Blood sugar in the 20s so D50 was administered. One of the liters of fluid was switched to a D5 normal saline at 100 an hour. ECG Initial ECG Impression Date: Nov 16, 2020 Initial ECG Impression Time: 08:01 Initial ECG Rate: 61 Initial ECG Rhythm: Normal Sinus Initial ECG Intervals: QT (482) Initial ECG Impression: Normal Comment Sinus rhythm with prolonged QTC and right bundle branch block. Diagnostic Imaging Diagonstic Imaging: Xray Plain Films/CT/US/NM/MRI: chest Comments [facility] [place] [place] NAME: NATHAN BAKER [facility] REC#: [id number] PT STATUS: REG ER : 1945 PHYSICIAN: DOUGLAS HERNANDEZ MD ADMIT DATE: 07/14/21/ER Draft Date of Exam:11/16/20 CHEST 1 VIEW, AP/PA ONLY INDICATION: Sepsis. Comparison made with prior examination from 06/02/2020. FINDINGS: There is cardiomegaly. Lungs are clear. There is no pleural effusion or pneumothorax. The mediastinum is unremarkable. Pacemaker overlies left hemithorax. IMPRESSION: No acute cardiopulmonary abnormality. Cardiomegaly Dictated on workstation # [id number] Dict: 11/16/20 0856 Trans: 11/16/20 0858 [facility] [id number] Interpreted by: GUSTAVO ACEVEDO MD Electronically signed by: Reviewed: Reviewed by Me Departure Communication (Admissions) Time/Spoke to Admitting Phy: 09:30 Discussed the case with Dr. Mckeon and he agrees to observe the patient. Impression Primary Impression: Sepsis Qualified Codes: A41.9 - Sepsis, unspecified organism; R65.20 - Severe sepsi s without septic shock; G93.40 - Encephalopathy, unspecified Additional Impression: Hypoglycemia Disposition: ADMITTED INPATIENT Condition: Stable Admissions Decision to Admit Reason: Admit from ER (General) Decision to Admit/Date: Nov 16, 2020 Time/Decision to Admit Time: 09:00 Departure-Patient Inst. Referrals: NO,LOCAL PHYSICIAN (PCP/Family) Primary Care Physician DOUGLAS HERNANDEZ Nov 16, 2020 07:30
[2020-11-16 07:39] LABS: BASOPHILS % (AUTO) 0 % (0-10); EOSINOPHILS % (AUTO) 0 % (0-10); HEMATOCRIT 39 % (40-54); LYMPHOCYTES # (AUTO) 1.4 10^3/uL (1.0-4.0); LYMPHOCYTES % (AUTO) 8 % (12-44); MEAN CORPUSCULAR HEMOGLOBIN 28 pg (25-34); MEAN CORPUSCULAR HGB CONC 31 g/dL (32-36); MEAN CORPUSCULAR VOLUME 93 fL (80-99); MEAN PLATELET VOLUME 10.3 fL (9.0-12.2); MONOCYTES # (AUTO) 1.3 10^3/uL (0.0-1.0); MONOCYTES % (AUTO) 7 % (0-12); NEUTROPHILS # (AUTO) 14.3 10^3/uL (1.8-7.8); NEUTROPHILS % (AUTO) 84 % (42-75); PLATELET COUNT 191 10^3/uL (130-400); WHITE BLOOD COUNT 17.2 10^3/uL (4.3-11.0)
[2020-11-16] MEDS ORDERED: DEXTROSE 50% 50 ML (IMS) SYR ONE (07:43)
[2020-11-16] MEDS ORDERED: D5 NS 1000 ML IV SOLUTION 1,000 ML IV ONE (07:45)
[2020-11-16] MEDS ORDERED: DEXTROSE 50% 50 ML (IMS) SYR IV ONE (07:45)
[2020-11-16 07:50] LABS: LYMPHOCYTES % (MANUAL) 6 %; MONOCYTES % (MANUAL) 7 %; NEUTROPHILS % (MANUAL) 87 %; RBC MORPH NORMAL
[2020-11-16 08:01] LABS: ALBUMIN 3.5 GM/DL (3.2-4.5)
[2020-11-16 08:02] LABS: CALCIUM 9.1 MG/DL (8.5-10.1)
[2020-11-16 08:03] LABS: INR 1.3 (0.8-1.4); PROTHROMBIN TIME PATIENT 16.1 SEC (12.2-14.7); TOTAL PROTEIN 7.1 GM/DL (6.4-8.2)
[2020-11-16 08:05] LABS: BILIRUBIN,TOTAL 0.4 MG/DL (0.1-1.0)
[2020-11-16 08:06] LABS: POTASSIUM 5.2 MMOL/L (3.6-5.0)
[2020-11-16 08:07] LABS: CREATININE SERUM 1.52 MG/DL (0.60-1.30)
[2020-11-16 08:25] LABS: BILIRUBIN,URINE NEGATIVE (NEGATIVE); CLARITY,URINE CLEAR; COLOR,URINE YELLOW; GLUCOSE, URINE (UA) NEGATIVE (NEGATIVE); KETONES,URINE NEGATIVE (NEGATIVE); LEUKOCYTE ESTERASE ,URINE NEGATIVE (NEGATIVE); NITRITE,URINE NEGATIVE (NEGATIVE); PROTEIN,URINE NEGATIVE (NEGATIVE)
[2020-11-16 08:32] LABS: AMPHETAMINE SCREEN, URINE NEGATIVE (NEGATIVE); BARBITURATE SCREEN URINE NEGATIVE (NEGATIVE); BENZODIAZEPINES SCREEN URINE NEGATIVE (NEGATIVE); CANNABINOID SCREEN, URINE NEGATIVE (NEGATIVE); COCAINE SCREEN URINE NEGATIVE (NEGATIVE); METHADONE STAT NEGATIVE (NEGATIVE); METHAMPHETAMINE SCREEN URINE S NEGATIVE (NEGATIVE); OPIATE SCREEN URINE NEGATIVE (NEGATIVE); OXYCODONE STAT NEGATIVE (NEGATIVE); PROPOXYPHENE STAT NEGATIVE (NEGATIVE); TRICYCLIC ANTIDEPRESSANTS SCRE NEGATIVE (NEGATIVE)
[2020-11-16 08:34] LABS: AMORPHOUS SEDIMENT,UR FEW AMOR URATES /LPF; BACTERIA,URINE TRACE /HPF; RBC,URINE 0-2 /HPF; WBC,URINE 0-2 /HPF
--- NOTE | 2020-11-16 08:58 | Diagnostic Imaging Report ---
INDICATION: Sepsis. Comparison made with prior examination from 06/02/2020. FINDINGS: There is cardiomegaly. Lungs are clear. There is no pleural effusion or pneumothorax. The mediastinum is unremarkable. Pacemaker overlies left hemithorax. IMPRESSION: No acute cardiopulmonary abnormality. Cardiomegaly Dictated by: Dictated on workstation # [id number]
[2020-11-16 11:30] VITALS: BP 142/86
[2020-11-16 12:00] VITALS: BP_SYST 122; BP_SYST 201; BP_DIAS 66; BP_DIAS 99
--- NOTE | 2020-11-16 12:23 | History & Physical-Hospitalist ---
JUNE MORALES MED STUDENT 11/16/20 1222: History of Present Illness HPI/Chief Complaint This is a 75 YO male with history of Parkinson's, dementia, Afib with pacemaker, SAH, and diabetes who was brought to the ER by for weakness, decreased appetite, and decreased urination. states she was helping pt to the commode this morning and he became weak, so she lowered him to the floor and called for help. Pt also had some shortness of breath when walking to the commode, which is not normal for him. also states pt has been eating less than usual and last ate yesterday morning when he had some oatmeal. She says pt sometimes pt does not want to eat because his Parkinson's makes it difficult. Pt was not drinking much water yesterday and only had soda. also notes that pt tried to go to the bathroom yesterday and this morning, but was unable to urinate. He has a history of prostate problems, but says he has not had difficult with urinating since starting on a prostate medication. She says pt is not oriented to time or place, which is normal for his dementia, but says he is staring off into space, which is not normal for him. Sees Dr. Fairbanks for cardiology. In this ER, CXR, UDS, COVID PCR, and UA were negative, but WBC's were elevated at 17.2. Lactate is 1.4. Initial glucose in the ER was 134, but recheck was 25, so pt was given dextrose and it improved to 188. Pt complains of an aching pain that feels like he needs to use the bathroom, but no other complaints. Source: family, RN/MD Exam Limitations: other (dementia) Date Seen 11/16/20 Time Seen by a Provider: 12:00 Attending Physician Annalisa Fall MD [facility] Referring Physician Date of Admission Nov 16, 2020 at 10:50 Home Medications & Allergies Home Medications Reviewed patient Home Medication Reconciliation performed by pharmacy medication reconciliations aviation safety equipment technician and/or nursing. Patients Allergies have been reviewed. Allergies Allergies Coded Allergies Sulfa (Sulfonamide Antibiotics) (Verified Allergy, Unknown, 01/14/19) Past Einlhij-Hpxpop-Zrwuik Hx Patient Social History Marrital Status: Tobacco Use?: No Use of E-Cig and/or Vaping dev: No Substance use?: No Alcohol Use?: No Pt feels they are or have been: No Immunizations Up To Date Date of Influenza Vaccine: Mar 10, 2018 Tetanus Booster (TDap): Unknown Hepatitis A: No Hepatitis B: No PED Vaccines UTD: Yes Date of Pneumonia Vaccine: Jan 22, 2008 Seasonal Allergies Seasonal Allergies: No Current Status Communicates: Verbally Primary Language: Kazakh Preferred Spoken Language: Kazakh Is interpretation needed?: No Past Medical History Surgeries: Orthopedic, Pacemaker Sleep Apnea Currently Using CPAP: No Currently Using BIPAP: No Atrial Fibrillation, High Cholesterol, Hypertension Dementia, Stroke Sexually Transmitted Disease: No Kidney Stones Chronic Constipation Arthritis, Chronic Back Pain Diabetes, Non-Insulin dep Anxiety, Depression Blood Disorders: No Adverse Reaction/Blood Tranf: No PMedHx: Sleep Apnea - noncompliant with CPAP Obesity, BMI 36.8 Stroke - September 2007 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 Mild regurgitation. Moderate Tricuspid regurgitation PSurgHx: Cardiac Cath - 2013, 2015 Pacemaker - 2007; Generatory Change 2015 Right Total Shoulder Right Knee Arthroscopy Colonoscopy Abdominal Lipoma Excision Family Medical History Cardiovascular disease 19 MOTHER No Pertinent Family Hx Review of Systems ROS-Unable to Obtain: limited by dementia Physical Exam Physical Exam Vital Signs Vital Signs - First Documented 11/16/20 11/16/20 07:20 11:30 Temp 37.2 Pulse 65 Resp 21 B/P (MAP) 114/78 (90) Pulse Ox 92 O2 Delivery Nasal Cannula O2 Flow Rate 2.00 Capillary Refill : Less Than 3 Seconds Height, Weight, BMI Height: 5'8.50" Weight: 223lbs. 4.0oz. [id number]; 30.75 BMI Method:Stated General Appearance: No Apparent Distress, WD/WN HEENT: Other (dry mucous membranes) Respiratory: Normal Breath Sounds, No Accessory Muscle Use, No Respiratory Distress Cardiovascular: Regular Rate, Rhythm, Systolic Murmur Gastrointestinal: Non Tender, Soft Extremity: Normal Inspection, No Calf Tenderness, Pedal Edema Neurologic/Psychiatric: Alert, Other (oriented to self, not oriented to time and place) Skin: Normal Color, Warm/Dry Results Results/Procedures Labs Laboratory Tests 11/16/20 07:22 Patient resulted labs reviewed. Imaging: Reviewed Imaging Report Assessment/Plan Admission Diagnosis hypoglycemia, suspected sepsis Admission Status: Inpatient Order (span 2 midnights) Assessment and Plan suspected sepsis repeat CXR in the morning IV Abx dehydration acute kidney injury Fluid resuscitation urinary retention Wall in place hypoglycemia-resolved Accuchecks q2h weakness social work specialist consult PT/OT Parkinson's dementia ANNALISA FALL MD 11/16/20 1902: Past Emxjojf-Jytcje-Wtzpzl Hx Family Medical History Cardiovascular disease 19 MOTHER Review of Systems Constitutional: see HPI Assessment/Plan Admission Diagnosis Reason for Inpatient Admission: IV Antibiotics Assessment and Plan Leukocytosis Acute respiratory failure with hypoxia No evidence of sepsis COVID/flu negative Chest xray unremarkable UA normal Blood cultures pending IV antibiotics Add procalcitonin Repeat chest xray tomorrow morning Requiring supplemental oxygen Hypoglycemia Unclear if true hypoglycemia Not taking any hypoglycemic diabetic medications Blood sugar normal by EMS Blood glucose 130 on BMP 0722 Blood sugar 25 on accucheck 0741 Started on D5W, discontinue Transition to LR Monitor accuchecks Q4H JEROME Cr increased from baseline IV fluids Debility Worsening recently PT/OT Urinary retention BPH Wall in place Continue Flomax Parkinsons Dementia Continue home meds DVT prophylaxis: Lovenox Diagnosis/Problems Diagnosis/Problems (1) JEROME (acute kidney injury) Status: Acute (2) Sepsis Status: Acute Qualifiers: Sepsis type: sepsis due to unspecified organism Sepsis acute organ dysfunction status: with acute organ dysfunction Severe sepsis acute organ dysfunction type: encephalopathy Severe sepsis shock status: without septic shock Qualified Codes: A41.9 - Sepsis, unspecified organism; R65.20 - Severe sepsis without septic shock; G93.40 - Encephalopathy, unspecified (3) Hypoglycemia Status: Acute (4) Dementia Status: Chronic Supervisory-Addendum Brief Verification & Attestation Participated in pt care: history, MDM, physical Personally performed: exam, history, MDM, supervision of care Care discussed with: Medical Student Procedures: n/a Results interpretation: Verified all documentation A medical student performed and documented this service. I then reviewed and verified all information documented by the medical student and made modific ations to such information, when appropriate. I personally performed a history, physical exam, and performed medical decision making. JUNE MORALES MED STUDENT Nov 16, 2020 12:22 ANNALISA FALL MD Nov 16, 2020 19:02
[2020-11-16] MEDS ORDERED: RT-ALBUTEROL SULF 2.5 MG/3 ML PRE-MIX VIAL INH PRN (12:30)
[2020-11-16] MEDS ORDERED: D5 NS 1000 ML IV SOLUTION 1,000 ML IV SCH (12:45)
[2020-11-16] MEDS ORDERED: ACETAMINOPHEN 650 MG SUPP (TYLENOL) PR PRN (12:45)
[2020-11-16] MEDS ORDERED: EPINEPHrine 1 MG INJECTION 4 MG in NS (IVPB) 248 ML IV SCH (12:45)
[2020-11-16] MEDS ORDERED: ACETAMINOPHEN 325 MG TABLET PO PRN ×2 (12:45→14:30)
[2020-11-16] MEDS ORDERED: ONDANSETRON 4 MG/2 ML (SDV) Z0FRAN IV PRN ×2 (12:45→14:30)
--- NOTE | 2020-11-16 12:56 | Tele-ICU Progress Note ---
Progress Note NO TELE-ICU CONSULT REQUESTED CONTINUE TO MONITOR PER USUAL TELE-ICU PROTOCOL No need for Tele-ICU interventions Plans as delineated by bedside physicians / consultants Available chart/ vials / labs / Images reviewed H&P is from ER notes Patient's information available about PMH, Shx, Fhx allergy reviewed in EMR. ROS as per chart and RN report Patient admitted 11/16 with somlolence and T - dx with UTI Now in ICU, hemodynamically stable Video assessment done using teleICU camera, rest of exam as per RN Discussed with RN. A/P Sepsis, sourse id not cleat - UA is benigh, CXR clear , flu and COVID negative - received > 30 cc/kg IVF - abx started Hypoglycemia, DM II - on dextrose gtt - hold off metformin JEROME/CKD - hydration - might need US renal - follow clinical progress - follow K if no significant UP - discussed with RN to call Pulm HTN with RVSP 45 and grd Ii dast disfnct 2018 - monitor for signs of VO CAD ECHO 2018 - EF 55% grdII dst dsf, RVSP 45 stress test 2018 - neg Arrhytmias - s/p pacemaker - amio po - off AC with falls _ to confirm JOSE - ? cpap Focused Exam Lactate Level 11/16/20 07:22: Lactic Acid Level 1.40 11/16/20 12:06: Lactic Acid Level 1.22 Height, Weight, BMI Height: 5'8.50" Weight: 223lbs. 4.0oz. 101.170576pn; 30.75 BMI Method:Stated Lactic Acid Level Laboratory Tests Test 11/16/20 12:06 Lactic Acid Level 1.22 MMOL/L (0.50-2.00) IGLESIA BECK MD Nov 16, 2020 12:56
[2020-11-16] MEDS ORDERED: VANCOMYCIN 1,750 MG/NS 500 ML IVPB IV NR ×2 (13:00)
[2020-11-16] MEDS: NOREPINEPHRINE 8 MG/250 ML 250 ML IV SCH (13:13)
[2020-11-16] MEDS: VASOPRESSIN INJECTION 20 UNIT in NS (IVPB) 100 ML IV SCH ×2 (13:14→20:25)
[2020-11-16] MEDS ORDERED: OLAN5TAB25 PO (13:16)
[2020-11-16] MEDS ORDERED: PIOG30TA71 PO (13:16)
[2020-11-16] MEDS ORDERED: TMSL.4C PO (13:16)
[2020-11-16] MEDS ORDERED: MIRA50TA PO (13:16)
[2020-11-16] MEDS ORDERED: LEVE500T6 PO (13:16)
[2020-11-16] MEDS ORDERED: CLON0.5T4 PO ×2 (13:16)
[2020-11-16] MEDS ORDERED: LACT10SO64 PO (13:16)
[2020-11-16] MEDS ORDERED: CARB1TAB19 PO (13:16)
[2020-11-16] MEDS ORDERED: POTA10TA PO (13:16)
[2020-11-16] MEDS ORDERED: OLAN10TA19 PO (13:16)
[2020-11-16] MEDS ORDERED: AMIO200T50 PO (13:16)
[2020-11-16] MEDS: CEFEPIME 1,000 MG/SWFI 10 ML IV PUSH IV SCH ×4 (13:33→20:25)
[2020-11-16] MEDS ORDERED: MELATONIN 3 MG TABLET PO PRN (14:30)
[2020-11-16] MEDS ORDERED: BISACODYL 10 MG SUPP (DULCOLAX) PR PRN (14:30)
[2020-11-16] MEDS ORDERED: ONDANSETRON 4 MG (ZOFRAN) ORAL DISSOLVE TAB PO PRN (14:30)
[2020-11-16] MEDS ORDERED: ANTACID SUSP 30 ML UDC (MYLANTA) PO PRN (14:30)
[2020-11-16] MEDS ORDERED: polyethylene glycoL POWDER 17 GM (MIRALAX) PACK PO PRN (14:30)
[2020-11-16] MEDS: LACTATED RINGERS 1,000 ML IV SCH (14:52)
[2020-11-16] MEDS: ENOXAPARIN 40 MG/0.4 ML (LOVENOX) SYR SC SCH (14:52)
--- NOTE | 2020-11-16 14:59 | Physical Therapy Evaluation ---
PT Evaluation-General Medical Diagnosis Admission Date Nov 16, 2020 at 10:50 Medical Diagnosis: hypoglycemia/sepsis Onset Date: Nov 16, 2020 Therapy Diagnosis Therapy Diagnosis: impaired mobility/strength Height/Weight Height (Feet): 5 Height (Inches): 8.50 Weight (Pounds): 223 Weight (Ounces): 4.0 Precautions Precautions/Isolations: Fall Prevention, Standard Precautions, Pressure Ulcer Referral Physician: Linda Medical History Pertinent Medical History: CAD, CVA, DM, Dementia, HTN, Parkinson's Current History ER secondary to decreased activity/somnolence Reviewed History: Yes Social History Home: Single Level Current Living Status: Spouse Entry Into Home: Ramp Prior Prior Level of Function SCALE: Activities may be completed with or without assistive devices. 3-Pjozivokil-crxqsps completes the activity by him/herself with no assistance from a helper. 5-Set-up or Clean-up Assistance-helper sets up or cleans up; patient completes activity. [place] assists only prior to or following the activity. 4-Supervision or Touching Assistance-helper provides verbal cues and/or touching/steadying and/or contact guard assistance as patient completes activity. Assistance may be provided throughout the activity or intermittently. 3-Partial/Moderate Assistance-helper does LESS THAN HALF the effort. [place] lifts, holds or supports trunk or limbs, but provides less than half the effort. 2-Substantial/Maximal Assistance-helper does MORE THAN HALF the effort. [place] lifts or holds trunk or limbs and provides more than half the effort. 1-Jbscmzcoe-ducyvt does ALL the effort. Patient does none of the effort to complete the activity. Or, the assistance of 2 or more helpers is required for the patient to complete the activity. If activity was not attempted, code reason: 7-Patient Refused. 9-Not Applicable-not attempted and the patient did not perform the activity before the current illness, exacerbation or injury. 10-Not Attempted due to Environmental Limitations-(lack of equipment, weather restraints, etc.). 88-Not Attempted due to Medical Conditions or Safety Concerns. patient unable to answer questions due to confusion and spouse not present PT Evaluation-Current Subjective Patient does agree to PT/OT. Objective Patient Orientation: Confused Attachments: Oxygen, Wall Catheter, IV ROM/Strength ROM Lower Extremities bilateral LE rigid due to Parkinson's Strength Lower Extremities 3/5 grossly bilateral LE (no formal testing due to patient's inability to follow direction to perform) Integumentary/Posture Integumentary refer to nursing notes Bladder Incontinence: Wall Cath Posture WFL Neuromuscular (Tone, Coordination, Reflexes) severe Parkinson's rigidity and tremors (total body) Sensory Vision: Unable to Assess Hearing: Functional Transfers Roll Left to Right (QC): 1 (x 2) Sit to Lying (QC): 1 (x 2) Lying to Sitting/Side of Bed(Q: 1 (x 2) Sit to Stand (QC): 2 Chair/Jpi-ur-Qvrpg Xfer(QC): 88 Toilet Transfer (QC): 88 Gait Does the Patient Walk?: No and Walking Goal IS indicated Distance: 5 side steps with severe lean to right with PT correct Gait Assistive Device: FWW Balance Sitting Static: Fair Sitting Dynamic: Fair Standing Static: Poor Standing Dynamic: Poor Assessment/Needs 75 y.o. male, will benefit from skilled PT to address functional strength and mobility to improve current LOF. Rehab Potential: Guarded PT Alf Goals Formula Checker Goals PT Formula Checker Goals Time Frame: Nov 26, 2020 Roll Left & Right (QC): 3 Sit to Lying (QC): 3 Lying-Sitting on Side/Bed(QC): 3 Sit to Stand (QC): 3 Chair/Nie-cs-Paheg Xfer(QC): 3 Toilet Transfer (QC): 3 Does the Patient Walk: Yes Walk 10 feet (QC): 3 Walk 50ft with 2 Turns (QC): 3 PT Plan Problem List Problem List: Activity Tolerance, Functional Strength, Safety, Balance, Gait, T ransfer, Bed Mobility, ROM Treatment/Plan Treatment Plan: Continue Plan of Care Treatment Plan: Bed Mobility, Education, Functional Activity Nilda, Functional Strength, Gait, Safety, Therapeutic Exercise, Transfers Treatment Duration: Nov 26, 2020 Frequency: 6 times per week Estimated Hrs Per Day: .25 hour per day Discharge Recommendations Therapy Discharge Recommendati: Other, See Comments (assisted facility) Time/GCodes Time In: 1435 Time Out: 1450 Total Billed Treatment Time: 15 Total Billed Treatment 1 visit EVModC 15 min LUCÍA HUSTON PT Nov 16, 2020 14:59
--- NOTE | 2020-11-16 15:09 | Occupational Therapy Eval ---
OT Evaluation-General/PLF Medical Diagnosis Admission Date Nov 16, 2020 at 10:50 Medical Diagnosis: hypoglycemia/sepsis Onset Date: Nov 16, 2020 Therapy Diagnosis Therapy Diagnosis: weakness, decreased ADL status Height/Weight Height (Feet): 5 Height (Inches): 8.50 Weight (Pounds): 223 Weight (Ounces): 4.0 Precautions Precautions/Isolations: Fall Prevention, Standard Precautions, Pressure Ulcer Referral Physician: Linda Referral Reason: Evaluation/Treatment Medical History Pertinent Medical History: Atrial Fib, CAD, CVA, DM, Dementia, HTN, Parkinson's Additional Medical History pacemaker (2007), arthritis, anxiety/depression, R total shoulder, R TKA Current History ER secondary to decreased activity/somnolence Social History Home: Single Level Current Living Status: Spouse Entry Into Home: Ramp ADL-Prior Level of Function SCALE: Activities may be completed with or without assistive devices. 5-Mbmxhvcrvz-vmsczmr completes the activity by him/herself with no assistance from a helper. 5-Set-up or Clean-up Assistance-helper sets up or cleans up; patient completes activity. [place] assists only prior to or following the activity. 4-Supervision or Touching Assistance-helper provides verbal cues and/or touching/steadying and/or contact guard assistance as patient completes activity. Assistance may be provided throughout the activity or intermittently. 3-Partial/Moderate Assistance-helper does LESS THAN HALF the effort. [place] lifts, holds or supports trunk or limbs, but provides less than half the effort. 2-Substantial/Maximal Assistance-helper does MORE THAN HALF the effort. [place] lifts or holds trunk or limbs and provides more than half the effort. 2-Rbfxgblno-alrccr does ALL the effort. Patient does none of the effort to complete the activity. Or, the assistance of 2 or more helpers is required for the patient to complete the activity. If activity was not attempted, code reason: 7-Patient Refused. 9-Not Applicable-not attempted and the patient did not perform the activity before the current illness, exacerbation or injury. 10-Not Attempted due to Environmental Limitations-(lack of equipment, weather restraints, etc.). 88-Not Attempted due to Medical Conditions or Safety Concerns. ADL PLOF Comments Pt indicates his assists him with ADLs at OF, including bathing, dressing and toileting. Amount of assistance unknown at this time as pt unable to provide information and spouse not present. Self Care: Needed Some Help OT Current Status Subjective Pt laying in bed, agreeable to OT/PT Mental Status/Objective Attachments: Wall Catheter, IV, Oxygen Current Glasses/Contacts: Yes Upper Extremity ROM decreased, tremors & rigidity throughout body due to Parkinson's Upper Extremity Coordination decreased due to tremors Upper Extremity Strength grossly 3/5, not formally tested due to pt's inability to follow directions to perform ADL-Treatment On/Off Footwear (QC): 1 Other Treatments Pt laying in bed, transferred supine to sit EOB with assist x2. OT donned gripper socks for pt, then pt stood from EOB with max A. Pt took 5 side steps, leaning severely towards R side requiring assistance to correct. Pt sat back EOB, then assisted supine assist x2. Assist x2 to scoot towards HOB. Post tx, pt laying in bed, call light in reach and all needs met. Education OT Patient Education: Correct positioning, Modified ADL techniques, Progress toward Goal/Update tx plan, Purpose of tx/functional activities, Rehab process Teaching Recipient: Patient Teaching Methods: Discussion Response to Teaching: Reinforcement Needed OT Fpc Goals Fpc Goals Time Frame: Nov 25, 2020 Eating (QC): 5 Oral Hygiene (QC): 5 Toileting Hygiene (QC): 3 Shower/Bathe Self (QC): 2 Upper Body Dressing (QC): 4 Lower Body Dressing (QC): 2 On/Off Footwear (QC): 2 Additional Goals: 1-Demonstrate ADL Tasks, 2-Verbalize Understanding, 3- ImproveStrength/Nilda 1=Demonstrate adherence to instructed precautions during ADL tasks. 2=Patient will verbalize/demonstrate understanding of assistive andrew mary/modifications for ADL. 3=Patient will improve strength/tolerance for activity to enable patient to perform ADL's. OT Education/Plan Problem List/Assessment Assessment: Decreased Activ Tolerance, Decreased UE Strength, Impaired Bed Mobility, Impaired Funct Balance, Impaired I ADL's, Impaired Self-Care Skills, Restricted Funct UE ROM Discharge Recommendations Plan/Recommendations: Continue POC Therapy Discharge Recommendati: Other, See Comments (SNF) Treatment Plan/Plan of Care Patient would benefit from OT for education, treatment and training to promote independence in ADL's, mobility, safety and/or upper extremity function for ADL' s. Plan of Care: ADL Retraining, Functional Mobility, UE Funct Exercise/Act Treatment Duration: Nov 25, 2020 Frequency: 5 times per week Estimated Hrs Per Day: .25 hour per day Rehab Potential: Guarded Time/GCodes Start Time: 14:35 Stop Time: 14:50 Total Time Billed (hr/min): 15 Billed Treatment Time 1, BOBBY ESCALANTE OT Nov 16, 2020 15:09
[2020-11-16] MEDS ORDERED: clonazePAM 0.5 MG (KlonoPIN) TAB PO PRN (18:00)
[2020-11-16] MEDS: SINEMET 25/100 (CARBIDOPA/LEVODOPA) TAB PO SCH (18:24)
[2020-11-16] MEDS: TAMSULOSIN 0.4 MG (FLOMAX) CAP PO SCH (18:24)
[2020-11-16] MEDS: clonazePAM 0.5 MG (KlonoPIN) TAB PO SCH (18:24)
[2020-11-16 19:47] VITALS: BP 114/55
[2020-11-16] MEDS ORDERED: ENALAPRIL 2.5 MG (VASOTEC) TAB ONE (20:16)
[2020-11-16] MEDS: DOCUSATE SODIUM 100 MG (COLACE) CAP PO SCH (20:19)
[2020-11-16] MEDS: SENNOSIDES 8.6 MG (SENOKOT) TAB PO SCH (20:20)
[2020-11-16] MEDS: ENALAPRIL 5 MG (VASOTEC) TAB PO SCH (20:20)
[2020-11-16] MEDS: ATORVASTATIN 10 MG TABLET PO SCH (20:23)
[2020-11-16] MEDS: OLANZapine 5 MG (ZyPREXA) TAB PO SCH (20:24)
[2020-11-16] MEDS ORDERED: NON-FORMULARY MEDICATION 1 EA EA (Lovastatin 20 MG) PO SCH (21:00)
[2020-11-17] VITALS (8 sets, daily range): BP systolic 96–134; BP diastolic 55–73
[2020-11-17] MEDS: LACTATED RINGERS 1,000 ML IV SCH ×3 (02:36→20:30)
[2020-11-17 04:08] LABS: BASOPHILS % (AUTO) 0 % (0-10); EOSINOPHILS % (AUTO) 0 % (0-10); HEMATOCRIT 37 % (40-54); HEMOGLOBIN 11.6 g/dL (13.3-17.7); LYMPHOCYTES # (AUTO) 1.1 10^3/uL (1.0-4.0); LYMPHOCYTES % (AUTO) 9 % (12-44); MEAN CORPUSCULAR HEMOGLOBIN 28 pg (25-34); MEAN CORPUSCULAR HGB CONC 31 g/dL (32-36); MEAN CORPUSCULAR VOLUME 91 fL (80-99); MEAN PLATELET VOLUME 10.9 fL (9.0-12.2); MONOCYTES % (AUTO) 8 % (0-12); NEUTROPHILS # (AUTO) 10.7 10^3/uL (1.8-7.8); NEUTROPHILS % (AUTO) 83 % (42-75); PLATELET COUNT 165 10^3/uL (130-400); WHITE BLOOD COUNT 12.8 10^3/uL (4.3-11.0)
[2020-11-17 04:25] LABS: CHLORIDE 112 MMOL/L (98-107); POTASSIUM 4.6 MMOL/L (3.6-5.0); SODIUM 141 MMOL/L (135-145)
[2020-11-17 04:26] LABS: CALCIUM 8.4 MG/DL (8.5-10.1)
[2020-11-17 04:27] LABS: GLUCOSE 133 MG/DL (70-105)
[2020-11-17 04:28] LABS: CARBON DIOXIDE 19 MMOL/L (21-32)
[2020-11-17 04:31] LABS: CREATININE SERUM 1.11 MG/DL (0.60-1.30); GFR ESTIMATED > 60
[2020-11-17 04:32] LABS: BUN/CREATININE RATIO 20
[2020-11-17] MEDS: NOREPINEPHRINE 8 MG/250 ML 250 ML IV SCH (04:37)
[2020-11-17] MEDS: SINEMET 25/100 (CARBIDOPA/LEVODOPA) TAB PO SCH ×2 (06:40→17:55)
[2020-11-17] MEDS: VASOPRESSIN INJECTION 20 UNIT in NS (IVPB) 100 ML IV SCH (06:40)
[2020-11-17] MEDS: CEFEPIME 1,000 MG/SWFI 10 ML IV PUSH IV SCH ×2 (06:40)
--- NOTE | 2020-11-17 07:43 | Diagnostic Imaging Report ---
Indication: Shortness of breath Portable chest 2:31 AM There is a dual-chamber pacemaker. Heart size and pulmonary vascularity are normal. Lungs are clear. There are no effusions or pneumothoraces. IMPRESSION: No acute abnormalities in the chest. Dictated by: Dictated on workstation # [id number]
[2020-11-17] MEDS: OLANZapine 5 MG (ZyPREXA) TAB PO SCH ×2 (08:32→21:46)
[2020-11-17] MEDS: AMIODARONE 200 MG (CORDARONE) TAB PO SCH (08:32)
[2020-11-17] MEDS: ENALAPRIL 5 MG (VASOTEC) TAB PO SCH ×2 (08:32→21:46)
[2020-11-17] MEDS: SENNOSIDES 8.6 MG (SENOKOT) TAB PO SCH ×2 (08:32→21:42)
[2020-11-17] MEDS: DOCUSATE SODIUM 100 MG (COLACE) CAP PO SCH ×2 (08:32→21:42)
[2020-11-17] MEDS: LACTULOSE SYRUP 10GM/15ML (ENULOSE) 30ML UDC PO SCH (08:32)
[2020-11-17] MEDS: amLODIPine 10 MG (NORVASC) TAB PO SCH (08:32)
[2020-11-17] MEDS ORDERED: NON-FORMULARY MEDICATION 1 EA EA (Olanzapine 10 MG) PO SCH (09:00)
[2020-11-17] MEDS ORDERED: LACTULOSE 10 GM/15 ML 30 ML POUR BOTTLE FOR ENEMA PO SCH (09:00)
--- NOTE | 2020-11-17 09:58 | Progress Note - Hospitalist ---
MORALESJUNE MED STUDENT 11/17/20 0958: Subjective HPI/CC On Admission Date Seen by Provider: Nov 17, 2020 Time Seen by Provider: 08:30 Subjective/Events-last exam Pt states he feels "terrible" because he needs to have a BM. No other complaints. Focused Exam Lactate Level 11/16/20 07:22: Lactic Acid Level 1.40 11/16/20 12:06: Lactic Acid Level 1.22 Objective Exam Vital Signs Vital Signs Date Time Temp Pulse Resp B/P (MAP) Pulse Ox O2 Delivery O2 Flow Rate FiO2 11/17/20 08:13 Room Air 11/17/20 08:00 36.1 66 19 134/69 (90) 92 11/16/20 12:00 2.00 Capillary Refill : Less Than 3 Seconds General Appearance: No Apparent Distress, Chronically ill Respiratory: Lungs Clear, Normal Breath Sounds, No Accessory Muscle Use, No Respiratory Distress Cardiovascular: Regular Rate, Rhythm, Systolic Murmur Gastrointestinal: Non Tender, Soft Extremity: Normal Inspection, No Calf Tenderness, No Pedal Edema Neurologic/Psychiatric: Alert, No Motor/Sensory Deficits Skin: Normal Color, Warm/Dry Results/Procedures Lab Laboratory Tests 11/17/20 03:49 Patient resulted labs reviewed. Imaging: Reviewed Imaging Films, Reviewed Imaging Report Assessment/Plan Assessment and Plan Assess & Plan/Chief Complaint suspected sepsis suspect pneumonia elevated PCT leukocytosis improving Switch IV Abx to PO dehydration acute kidney injury-improved creatinine improving urinary retention Butt in place hypoglycemia-resolved weakness social media specialist consult PT/OT Parkinson's dementia ANNALISA FALL MD 11/17/20 1619: Assessment/Plan Assessment and Plan Assess & Plan/Chief Complaint Leukocytosis Possible pneumonia No evidence of sepsis COVID/flu negative Repeat chest xray without acute abnormalities UA normal Blood cultures pending Procalcitonin elevated Transition to oral Omnicef Requiring supplemental oxygen T2DM Hypoglycemia Likely not true hypoglycemia Not taking any hypoglycemic diabetic medications Debility PT/OT Urinary retention BPH Remove butt Continue Flomax Parkinsons Dementia Continue home meds DVT prophylaxis: Lovenox Acute respiratory failure with hypoxia, resolved JEROME, resolved Diagnosis/Problems Diagnosis/Problems (1) PNA (pneumonia) (2) JEROME (acute kidney injury) Status: Acute (3) Debility Status: Acute Supervisory-Addendum Brief Verification & Attestation Participated in pt care: history, MDM, physical Personally performed: exam, history, MDM, supervision of care Care discussed with: Medical Student Procedures: n/a Results interpretation: Verified all documentation A medical student performed and documented this service. I then reviewed and verified all information documented by the medical student and made modifications to such information, when appropriate. I personally performed a history, physical exam, and performed medical decision making. JUNE MORALES MED STUDENT Nov 17, 2020 09:58 ANNALISA FALL MD Nov 17, 2020 16:19
[2020-11-17] MEDS ORDERED: CEFDINIR 300 MG (OMNICEF) CAP PO ONE (11:00)
[2020-11-17] MEDS ORDERED: CEFEPIME 1,000 MG/SWFI 10 ML IV PUSH IV SCH ×2 (11:00)
--- NOTE | 2020-11-17 12:07 | Physical Therapy Daily Note ---
PT Daily Note-Current Subjective Pt laying Supine in bed upon arrival. Pt agrees to PT/OT co-treat and asks to use BSC. Mental Status Patient Orientation: Person, Confused Attachments: Wall Catheter Transfers SCALE: Activities may be completed with or without assistive devices. 9-Dnfkiqvupu-fyglycp completes the activity by him/herself with no assistance from a helper. 5-Set-up or Clean-up Assistance-helper sets up or cleans up; patient completes activity. [place] assists only prior to or following the activity. 4-Supervision or Touching Assistance-helper provides verbal cues and/or touching/steadying and/or contact guard assistance as patient completes activity. Assistance may be provided throughout the activity or intermittently. 3-Partial/Moderate Assistance-helper does LESS THAN HALF the effort. [place] lifts, holds or supports trunk or limbs, but provides less than half the effort. 2-Substantial/Maximal Assistance-helper does MORE THAN HALF the effort. [place] lifts or holds trunk or limbs and provides more than half the effort. 9-Qsspsemvi-huumge does ALL the effort. Patient does none of the effort to complete the activity. Or, the assistance of 2 or more helpers is required for the patient to complete the activity. If activity was not attempted, code reason: 7-Patient Refused. 9-Not Applicable-not attempted and the patient did not perform the activity before the current illness, exacerbation or injury. 10-Not Attempted due to Environmental Limitations-(lack of equipment, weather restraints, etc.). 88-Not Attempted due to Medical Conditions or Safety Concerns. Lying to Sitting/Side of Bed(Q: 3 Sit to Stand (QC): 3 Toilet Transfer (QC): 3 Weight Bearing Full Weight Bearing Full Weight Bearing Treatments Pt laying in bed, agreeable to tx. Pt transferred supine to sit EOB, 2 person assist, one person for LEs and one person for UEs. Pt transferred from EOB to BSC, mod A. Pt attempted to have BM, but unsuccessful. Pt transferred back to bed, mod A. Then assist x2 supine. Post tx, pt laying in bed, call light in reach and all needs met. Pt's present helping pt feed, she states she assists him at home. Assessment Current Status: Fair Progress Pt has difficulty with transfers and unable to take more than a few steps due to decreased strength & Parkinson's tremors. PT Wafer Fabricator Goals Wafer Fabricator Goals PT [facility] Goals Time Frame: Nov 26, 2020 Roll Left & Right (QC): 3 Sit to Lying (QC): 3 Lying-Sitting on Side/Bed(QC): 3 Sit to Stand (QC): 3 Chair/Fae-pn-Djece Xfer(QC): 3 Toilet Transfer (QC): 3 Does the Patient Walk: Yes Walk 10 feet (QC): 3 Walk 50ft with 2 Turns (QC): 3 PT Plan Problem List Problem List: Activity Tolerance, Functional Strength, Transfer Treatment/Plan Treatment Plan: Continue Plan of Care Treatment Plan: Bed Mobility, Education, Functional Activity Nilda, Functional Strength, Gait, Safety, Therapeutic Exercise, Transfers Treatment Duration: Nov 26, 2020 Frequency: 6 times per week Estimated Hrs Per Day: .25 hour per day Safety Risks/Education Patient Education: Transfer Techniques, Correct Positioning Teaching Recipient: Patient Teaching Methods: Discussion Response to Teaching: Verbalize Understanding Time/GCodes Time In: 1135 Time Out: 1155 Total Billed Treatment Time: 20 Total Billed Treatment 1, IMMANUEL (20m) SOO BANGURA PTA Nov 17, 2020 12:06
--- NOTE | 2020-11-17 12:32 | Occupational Ther Daily Note ---
OT Current Status-Daily Note Subjective Pt laying in bed, present. Agreeable to OT/PT cotreat. Mental Status/Objective Patient Orientation: Normal For Age ADL-Treatment Therapy Code Descriptions/Definitions Functional [place] Measure: 0=Not Assessed/NA 4=Minimal Assistance 1=Total Assistance 5=Supervision or Setup 2=Maximal Assistance 6=Modified [place] 3=Moderate Assistance 7=Complete IndependenceSCALE: Activities may be completed with or without assistive devices. 0-Mjohyxjfyd-qfrupyi completes the activity by him/herself with no assistance from a helper. 5-Set-up or Clean-up Assistance-helper sets up or cleans up; patient completes activity. [place] assists only prior to or following the activity. 4-Supervision or Touching Assistance-helper provides verbal cues and/or touching/steadying and/or contact guard assistance as patient completes activity. Assistance may be provided throughout the activity or intermittently. 3-Partial/Moderate Assistance-helper does LESS THAN HALF the effort. [place] lifts, holds or supports trunk or limbs, but provides less than half the effort. 2-Substantial/Maximal Assistance-helper does MORE THAN HALF the effort. [place] lifts or holds trunk or limbs and provides more than half the effort. 3-Wyrhhwvus-weokeb does ALL the effort. Patient does none of the effort to complete the activity. Or, the assistance of 2 or more helpers is required for the patient to complete the activity. If activity was not attempted, code reason: 7-Patient Refused. 9-Not Applicable-not attempted and the patient did not perform the activity before the current illness, exacerbation or injury. 10-Not Attempted due to Environmental Limitations-(lack of equipment, weather restraints, etc.). 88-Not Attempted due to Medical Conditions or Safety Concerns. Eating (QC): 3 (Pt's assisted with feeding pt, pt able to chew food and swallow) Toileting Hygiene (QC): 1 (Assist with hygiene, pt not wearing LE clothing.) Toilet Transfer (QC): 3 (Mod A ) Other Treatment Pt laying in bed, agreeable to tx. Pt transferred supine to sit EOB, 2 person assist, one person for LEs and one person for UEs. Pt transferred from EOB to [facility], mod A. Pt attempted to have BM, but unsuccessful. Pt transferred back to bed, mod A. Then assist x2 supine. Post tx, pt laying in bed, call light in reach and all needs met. Pt's present helping pt feed, she states she assists him at home. Education OT Patient Education: Correct positioning, Modified ADL techniques, Progress toward Goal/Update tx plan, Purpose of tx/functional activities, Rehab process Teaching Recipient: Patient Teaching Methods: Discussion Response to Teaching: Verbalize Understanding OT Anesthesia Attending Goals Anesthesia Attending Goals Time Frame: Nov 25, 2020 Eating (QC): 5 Oral Hygiene (QC): 5 Toileting Hygiene (QC): 3 Shower/Bathe Self (QC): 2 Upper Body Dressing (QC): 4 Lower Body Dressing (QC): 2 On/Off Footwear (QC): 2 Additional Goals: 1-Demonstrate ADL Tasks, 2-Verbalize Understanding, 3- ImproveStrength/Nilda 1=Demonstrate adherence to instructed precautions during ADL tasks. 2=Patient will verbalize/demonstrate understanding of assistive devices/modifications for ADL. 3=Patient will improve strength/tolerance for activity to enable patient to perform ADL's. OT Education/Plan Problem List/Assessment Assessment: Decreased Activ Tolerance, Decreased UE Strength, Impaired Bed Mobility, Impaired Funct Balance, Impaired I ADL's, Impaired Self-Care Skills, Restricted Funct UE ROM Discharge Recommendations Plan/Recommendations: Continue POC Treatment Plan/Plan of Care Patient would benefit from OT for education, treatment and training to promote independence in ADL's, mobility, safety and/or upper extremity function for ADL's. Plan of Care: ADL Retraining, Functional Mobility, UE Funct Exercise/Act Treatment Duration: Nov 25, 2020 Frequency: 5 times per week Estimated Hrs Per Day: .25 hour per day Rehab Potential: Guarded Time/GCodes Start Time: 11:35 Stop Time: 11:55 Total Time Billed (hr/min): 20 Billed Treatment Time 1, ADL BOBBY COLES OT Nov 17, 2020 12:32
[2020-11-17] MEDS ORDERED: VANCOMYCIN 1500 MG/NS 500 ML IVPB IV SCH ×2 (13:00)
[2020-11-17] MEDS: ENOXAPARIN 40 MG/0.4 ML (LOVENOX) SYR SC SCH (15:14)
[2020-11-17] MEDS: clonazePAM 0.5 MG (KlonoPIN) TAB PO SCH (17:55)
[2020-11-17] MEDS: TAMSULOSIN 0.4 MG (FLOMAX) CAP PO SCH (17:56)
[2020-11-17] MEDS: ATORVASTATIN 10 MG TABLET PO SCH (21:43)
[2020-11-17] MEDS: CEFDINIR 300 MG (OMNICEF) CAP PO SCH (21:46)
[2020-11-18] MEDS: SINEMET 25/100 (CARBIDOPA/LEVODOPA) TAB PO SCH ×2 (05:13→18:01)
[2020-11-18] MEDS: LACTATED RINGERS 1,000 ML IV SCH ×2 (05:18→14:45)
[2020-11-18 05:20] VITALS: BP 103/61
[2020-11-18 07:59] VITALS: BP 102/65
[2020-11-18] MEDS: AMIODARONE 200 MG (CORDARONE) TAB PO SCH (08:19)
[2020-11-18] MEDS: CEFDINIR 300 MG (OMNICEF) CAP PO SCH ×2 (08:19→20:52)
[2020-11-18] MEDS: amLODIPine 10 MG (NORVASC) TAB PO SCH (08:19)
[2020-11-18] MEDS: OLANZapine 5 MG (ZyPREXA) TAB PO SCH ×2 (08:19→20:52)
[2020-11-18] MEDS: LACTULOSE SYRUP 10GM/15ML (ENULOSE) 30ML UDC PO SCH (08:20)
[2020-11-18] MEDS: SENNOSIDES 8.6 MG (SENOKOT) TAB PO SCH ×2 (08:20→20:53)
[2020-11-18] MEDS: DOCUSATE SODIUM 100 MG (COLACE) CAP PO SCH ×2 (08:21→20:52)
[2020-11-18] MEDS: ENALAPRIL 5 MG (VASOTEC) TAB PO SCH ×2 (08:27→19:51)
--- NOTE | 2020-11-18 10:07 | Physical Therapy Daily Note ---
PT Daily Note-Current Subjective Patient is in bed sleeping. Difficult to arouse. Spouse present and agrees to PT. Mental Status Patient Orientation: Confused Transfers SCALE: Activities may be completed with or without assistive devices. 6-Jptjwfeymv-acpavlp completes the activity by him/herself with no assistance from a helper. 5-Set-up or Clean-up Assistance-helper sets up or cleans up; patient completes activity. [place] assists only prior to or following the activity. 4-Supervision or Touching Assistance-helper provides verbal cues and/or touching/steadying and/or contact guard assistance as patient completes activity. Assistance may be provided throughout the activity or intermittently. 3-Partial/Moderate Assistance-helper does LESS THAN HALF the effort. [place] lif ts, holds or supports trunk or limbs, but provides less than half the effort. 2-Substantial/Maximal Assistance-helper does MORE THAN HALF the effort. [place] lifts or holds trunk or limbs and provides more than half the effort. 2-Paxenucne-zjkhic does ALL the effort. Patient does none of the effort to complete the activity. Or, the assistance of 2 or more helpers is required for the patient to complete the activity. If activity was not attempted, code reason: 7-Patient Refused. 9-Not Applicable-not attempted and the patient did not perform the activity before the current illness, exacerbation or injury. 10-Not Attempted due to Environmental Limitations-(lack of equipment, weather restraints, etc.). 88-Not Attempted due to Medical Conditions or Safety Concerns. Lying to Sitting/Side of Bed(Q: 1 (x 2) Sit to Stand (QC): 1 (x 2) Toilet Transfer (QC): 1 (x 2 to commode for ) Weight Bearing Full Weight Bearing Full Weight Bearing Exercises Seated Therapy Exercises: Ankle pumps, Long arc quads Seated Reps: 12 (AAROM bilaterally) Assessment Patient on commode with spouse present. RN in room. Patient tolerates minimal activity. PT Wing Commander Goals Nursing Home Goals PT Nursing Home Goals Time Frame: Nov 26, 2020 Roll Left & Right (QC): 3 Sit to Lying (QC): 3 Lying-Sitting on Side/Bed(QC): 3 Sit to Stand (QC): 3 Chair/Vtr-wj-Cskqh Xfer(QC): 3 Toilet Transfer (QC): 3 Does the Patient Walk: Yes Walk 10 feet (QC): 3 Walk 50ft with 2 Turns (QC): 3 PT Plan Treatment/Plan Treatment Plan: Continue Plan of Care Treatment Plan: Bed Mobility, Education, Functional Activity Nilda, Functional Strength, Gait, Safety, Therapeutic Exercise, Transfers Treatment Duration: Nov 26, 2020 Frequency: 6 times per week Estimated Hrs Per Day: .25 hour per day Time/GCodes Time In: 936 Time Out: 948 Total Billed Treatment Time: 12 Total Billed Treatment 1 visit FA 12 min LUCÍA HUSTON PT Nov 18, 2020 10:07
--- NOTE | 2020-11-18 10:31 | Progress Note - Hospitalist ---
JUNE MORALES MED STUDENT 11/18/20 1031: Subjective HPI/CC On Admission Date Seen by Provider: Nov 18, 2020 Time Seen by Provider: 08:15 Subjective/Events-last exam No complaints. Focused Exam Lactate Level 11/16/20 07:22: Lactic Acid Level 1.40 11/16/20 12:06: Lactic Acid Level 1.22 Objective Exam Vital Signs Vital Signs Date Time Temp Pulse Resp B/P (MAP) Pulse Ox O2 Delivery O2 Flow Rate FiO2 11/18/20 08:00 Room Air 11/18/20 07:59 36.5 64 22 102/65 (77) 93 11/16/20 12:00 2.00 Capillary Refill : Less Than 3 Seconds General Appearance: No Apparent Distress, Chronically ill Respiratory: Normal Breath Sounds, No Accessory Muscle Use, No Respiratory Distress Cardiovascular: Regular Rate, Rhythm, Systolic Murmur Gastrointestinal: Non Tender, Soft Neurologic/Psychiatric: Normal Mood/Affect, Other (somnolent, but answers questions) Skin: Normal Color, Warm/Dry Results/Procedures Lab Patient resulted labs reviewed. Imaging: Reviewed Imaging Report Assessment/Plan Assessment and Plan Assess & Plan/Chief Complaint suspected pneumonia PO Omnicef dehydration urinary retention weakness rn social services consult PT/OT Parkinson's dementia hypoglycemia-resolved acute kidney injury-resolved suspected sepsis-resolved ANNALISA FALL MD 11/18/20 1113: Assessment/Plan Assessment and Plan Assess & Plan/Chief Complaint Admitted with pneumonia and JEROME. Treated with antibiotics and fluids. Now improving medically. Planning for skilled facility for ongoing therapies, may benefit from palliative care/hospice if fails to improve. Plan discussed with patient and . Diagnosis/Problems Diagnosis/Problems (1) PNA (pneumonia) Status: Acute (2) JEROME (acute kidney injury) Status: Acute (3) Debility Status: Acute (4) Recurrent falls Status: Acute (5) Parkinson's disease Status: Chronic Supervisory-Addendum Brief Verification & Attestation Participated in pt care: history, MDM, physical Personally performed: exam, history, MDM, supervision of care Care discussed with: Medical Student Procedures: n/a Results interpretation: Verified all documentation A medical student performed and documented this service. I then reviewed and verified all information documented by the medical student and made modifications to such information, when appropriate. I personally performed a history, physical exam, and performed medical decision making. JUNE MORALES STUDENT Nov 18, 2020 10:31 ANNALISA FALL MD Nov 18, 2020 11:13
[2020-11-18 11:48] VITALS: BP 102/63
--- NOTE | 2020-11-18 13:46 | Occ Therapy Progress Note ---
Therapy Progress Note Attempt x2 (7248, 3507) both times pt is sleeping. OT offers services to with examples of activities; pt's denies, stating, "He must be pretty tired." OT to hold tx this date. Continue to address fx activity on next available date. 1, visit. Denial. TYESHA MA OTR Nov 18, 2020 13:46
[2020-11-18] MEDS: ENOXAPARIN 40 MG/0.4 ML (LOVENOX) SYR SC SCH (14:45)
[2020-11-18 16:00] VITALS: BP 114/74
[2020-11-18] MEDS: TAMSULOSIN 0.4 MG (FLOMAX) CAP PO SCH (18:01)
[2020-11-18] MEDS: clonazePAM 0.5 MG (KlonoPIN) TAB PO SCH (18:01)
[2020-11-18 19:35] VITALS: BP 95/62
[2020-11-18] MEDS: ATORVASTATIN 10 MG TABLET PO SCH (20:53)
[2020-11-18] MEDS: MIRTAZAPINE 15 MG (REMERON) TAB PO SCH (20:53)
[2020-11-19] VITALS: BP 85/53
[2020-11-19 04:00] VITALS: BP 111/64
[2020-11-19] MEDS: SINEMET 25/100 (CARBIDOPA/LEVODOPA) TAB PO SCH ×2 (06:19→18:35)
[2020-11-19] MEDS: metFORMIN 500 MG (GLUCOPHAGE) TAB PO SCH ×2 (06:30→18:35)
[2020-11-19 07:27] VITALS: BP 117/66
[2020-11-19] MEDS: DOCUSATE SODIUM 100 MG (COLACE) CAP PO SCH ×2 (09:45→20:57)
[2020-11-19] MEDS: CEFDINIR 300 MG (OMNICEF) CAP PO SCH ×2 (09:45→20:57)
[2020-11-19] MEDS: AMIODARONE 200 MG (CORDARONE) TAB PO SCH (09:45)
[2020-11-19] MEDS: SENNOSIDES 8.6 MG (SENOKOT) TAB PO SCH ×2 (09:45→20:57)
[2020-11-19] MEDS: LACTULOSE SYRUP 10GM/15ML (ENULOSE) 30ML UDC PO SCH (09:46)
[2020-11-19] MEDS: amLODIPine 10 MG (NORVASC) TAB PO SCH (09:46)
[2020-11-19] MEDS: ENALAPRIL 5 MG (VASOTEC) TAB PO SCH ×2 (09:46→20:57)
[2020-11-19] MEDS: OLANZapine 5 MG (ZyPREXA) TAB PO SCH ×2 (09:47→20:57)
--- NOTE | 2020-11-19 10:39 | Physical Therapy Progress Note ---
Therapy Progress Note Pt up in chair upon arrival to room, pt denies any PT activity this time, stating "I just got to the chair, I don't want to do anything else right now." 1 ref ([id number]) SALVATORE QUILES PT Nov 19, 2020 10:39
[2020-11-19 11:38] VITALS: BP 102/64
--- NOTE | 2020-11-19 12:54 | Progress Note - Hospitalist ---
Subjective HPI/CC On Admission Date Seen by Provider: Nov 19, 2020 Time Seen by Provider: 10:30 Subjective/Events-last exam He is less sleepy today. He says that he slept well. He has been drinking his supplement. He is feeling a bit better. Objective Exam Vital Signs Vital Signs Date Time Temp Pulse Resp B/P (MAP) Pulse Ox O2 Delivery O2 Flow Rate FiO2 11/19/20 11:38 36.1 58 18 102/64 (77) 97 Room Air 11/16/20 12:00 2.00 Capillary Refill : Less Than 3 Seconds General Appearance: No Apparent Distress, Chronically ill, Obese Respiratory: Lungs Clear, Normal Breath Sounds, No Respiratory Distress Cardiovascular: Regular Rate, Rhythm, No Edema, No Murmur Gastrointestinal: Normal Bowel Sounds, Non Tender, Soft Extremity: Normal Inspection, Non Tender, Pedal Edema Neurologic/Psychiatric: Alert, Motor Weakness Skin: Normal Color, Warm/Dry Results/Procedures Lab Patient resulted labs reviewed. Imaging: Reviewed Imaging Report Assessment/Plan Assessment and Plan Assess & Plan/Chief Complaint Pneumonia Continue Omnicef T2DM Hypoglycemia, resolved Likely not true hypoglycemia Not taking any hypoglycemic diabetic medications Continue Metformin Debility PT/OT Planning for alf placement [facility] Urinary retention BPH Continue Flomax Parkinsons Dementia Continue home meds DVT prophylaxis: Lovenox Acute respiratory failure with hypoxia, resolved JEROME, resolved Diagnosis/Problems Diagnosis/Problems (1) PNA (pneumonia) Status: Acute (2) JEROME (acute kidney injury) Status: Resolved Resolution Date/Time: 11/19/20 @ 12:54 (3) Debility Status: Acute (4) Recurrent falls Status: Acute (5) Parkinson's disease Status: Chronic ANNALISA FALL MD Nov 19, 2020 12:54
[2020-11-19] MEDS: ENOXAPARIN 40 MG/0.4 ML (LOVENOX) SYR SC SCH (15:16)
[2020-11-19 15:52] VITALS: BP 102/68
[2020-11-19] MEDS: clonazePAM 0.5 MG (KlonoPIN) TAB PO SCH (18:35)
[2020-11-19] MEDS: TAMSULOSIN 0.4 MG (FLOMAX) CAP PO SCH (18:35)
[2020-11-19 19:43] VITALS: BP 109/70
[2020-11-19] MEDS: ATORVASTATIN 10 MG TABLET PO SCH (20:57)
[2020-11-19] MEDS: MIRTAZAPINE 15 MG (REMERON) TAB PO SCH (20:58)
[2020-11-20 00:35] VITALS: BP 106/69
[2020-11-20 03:49] VITALS: BP 96/65
[2020-11-20 06:13] LABS: BASOPHILS % (AUTO) 0 % (0-10); EOSINOPHILS # (AUTO) 0.1 10^3/uL (0.0-0.3); EOSINOPHILS % (AUTO) 1 % (0-10); HEMATOCRIT 34 % (40-54); HEMOGLOBIN 10.6 g/dL (13.3-17.7); LYMPHOCYTES # (AUTO) 1.4 10^3/uL (1.0-4.0); LYMPHOCYTES % (AUTO) 11 % (12-44); MEAN CORPUSCULAR HEMOGLOBIN 28 pg (25-34); MEAN CORPUSCULAR HGB CONC 31 g/dL (32-36); MEAN CORPUSCULAR VOLUME 92 fL (80-99); MEAN PLATELET VOLUME 10.4 fL (9.0-12.2); MONOCYTES # (AUTO) 1.1 10^3/uL (0.0-1.0); MONOCYTES % (AUTO) 8 % (0-12); NEUTROPHILS # (AUTO) 10.6 10^3/uL (1.8-7.8); NEUTROPHILS % (AUTO) 80 % (42-75); PLATELET COUNT 211 10^3/uL (130-400); WHITE BLOOD COUNT 13.3 10^3/uL (4.3-11.0)
[2020-11-20] MEDS: SINEMET 25/100 (CARBIDOPA/LEVODOPA) TAB PO SCH ×2 (06:15→17:14)
[2020-11-20] MEDS: metFORMIN 500 MG (GLUCOPHAGE) TAB PO SCH ×2 (06:15→17:14)
[2020-11-20 06:28] LABS: CHLORIDE 108 MMOL/L (98-107); POTASSIUM 4.5 MMOL/L (3.6-5.0); SODIUM 139 MMOL/L (135-145)
[2020-11-20 06:29] LABS: CALCIUM 8.3 MG/DL (8.5-10.1)
[2020-11-20 06:30] LABS: GLUCOSE 107 MG/DL (70-105)
[2020-11-20 06:31] LABS: CARBON DIOXIDE 19 MMOL/L (21-32)
[2020-11-20 06:34] LABS: CREATININE SERUM 1.07 MG/DL (0.60-1.30); GFR ESTIMATED > 60
[2020-11-20 06:35] LABS: BUN/CREATININE RATIO 26
--- NOTE | 2020-11-20 06:52 | Progress Note - Hospitalist ---
Subjective HPI/CC On Admission Date Seen by Provider: Nov 20, 2020 Time Seen by Provider: 11:00 Subjective/Events-last exam Patient doing pretty well today Sleeping in the chair at the bedside No pain or falls reported [facility] hopefully Saturday Increasing fluid intake Review of Systems General: Fatigue, Malaise Objective Exam Vital Signs Vital Signs Date Time Temp Pulse Resp B/P (MAP) Pulse Ox O2 Delivery O2 Flow Rate FiO2 11/21/20 00:04 36.4 58 16 107/66 (80) 95 Room Air 11/16/20 12:00 2.00 Capillary Refill : Less Than 3 Seconds General Appearance: No Apparent Distress, WD/WN, Chronically ill Respiratory: Lungs Clear Cardiovascular: Regular Rate, Rhythm Neurologic/Psychiatric: Depressed Affect Results/Procedures Lab Laboratory Tests 11/20/20 05:40 Patient resulted labs reviewed. Imaging: Reviewed Imaging Report Assessment/Plan Assessment and Plan Assess & Plan/Chief Complaint Assessment: Pneumonia Chronic debility requiring longterm placement long-term Parkinson's Dementia Falls Prior stroke Plan: Antibiotic Encourage fluid intake DIYA ELDER DO Nov 20, 2020 06:52
[2020-11-20 07:03] LABS: ALBUMIN 2.9 GM/DL (3.2-4.5)
[2020-11-20 07:06] LABS: TOTAL PROTEIN 5.8 GM/DL (6.4-8.2)
[2020-11-20 07:08] LABS: BILIRUBIN,TOTAL 0.3 MG/DL (0.1-1.0)
[2020-11-20 07:12] LABS: BILIRUBIN,DIRECT 0.2 MG/DL (0.0-0.3); BILIRUBIN,INDIRECT 0.1 MG/DL
[2020-11-20 07:28] VITALS: BP 104/68
[2020-11-20] MEDS: AMIODARONE 200 MG (CORDARONE) TAB PO SCH (08:13)
[2020-11-20] MEDS: ENALAPRIL 5 MG (VASOTEC) TAB PO SCH ×2 (08:13→21:58)
[2020-11-20] MEDS: SENNOSIDES 8.6 MG (SENOKOT) TAB PO SCH ×2 (08:14→21:57)
[2020-11-20] MEDS: OLANZapine 5 MG (ZyPREXA) TAB PO SCH ×2 (08:14→21:58)
[2020-11-20] MEDS: LACTULOSE SYRUP 10GM/15ML (ENULOSE) 30ML UDC PO SCH (08:14)
[2020-11-20] MEDS: DOCUSATE SODIUM 100 MG (COLACE) CAP PO SCH ×2 (08:14→21:57)
[2020-11-20] MEDS: CEFDINIR 300 MG (OMNICEF) CAP PO SCH ×2 (08:14→21:58)
[2020-11-20] MEDS: amLODIPine 10 MG (NORVASC) TAB PO SCH (08:14)
[2020-11-20] MEDS ORDERED: PATIENT MAY USE OWN MEDS, ALL MC SCH (11:30)
[2020-11-20] MEDS: MIRABEGRON 50 MG PO SCH (12:37)
[2020-11-20] MEDS: ENOXAPARIN 40 MG/0.4 ML (LOVENOX) SYR SC SCH (12:49)
[2020-11-20 16:00] VITALS: BP 106/72
[2020-11-20] MEDS: clonazePAM 0.5 MG (KlonoPIN) TAB PO SCH (17:14)
[2020-11-20] MEDS: TAMSULOSIN 0.4 MG (FLOMAX) CAP PO SCH (17:14)
[2020-11-20] MEDS: MIRTAZAPINE 15 MG (REMERON) TAB PO SCH (21:57)
[2020-11-20] MEDS: ATORVASTATIN 10 MG TABLET PO SCH (21:57)
[2020-11-21 00:04] VITALS: BP 107/66
--- NOTE | 2020-11-21 05:57 | Progress Note - Hospitalist ---
Subjective HPI/CC On Admission Date Seen by Provider: Nov 21, 2020 Objective Exam Vital Signs Vital Signs Date Time Temp Pulse Resp B/P (MAP) Pulse Ox O2 Delivery O2 Flow Rate FiO2 11/21/20 08:45 35.8 64 20 90/58 (69) 97 Room Air 11/16/20 12:00 2.00 Capillary Refill : Less Than 3 Seconds Results/Procedures Lab Laboratory Tests 11/21/20 09:40 Patient resulted labs reviewed. Imaging: Reviewed Imaging Report Assessment/Plan Assessment and Plan Assess & Plan/Chief Complaint Assessment: Pneumonia Chronic debility requiring [facility] long-term Parkinson's Dementia Falls Prior stroke Plan: Antibiotic Encourage fluid intake DIYA ELDER DO Nov 21, 2020 05:57
[2020-11-21] MEDS: SINEMET 25/100 (CARBIDOPA/LEVODOPA) TAB PO SCH (06:47)
[2020-11-21] MEDS: metFORMIN 500 MG (GLUCOPHAGE) TAB PO SCH (06:47)
[2020-11-21] MEDS: AMIODARONE 200 MG (CORDARONE) TAB PO SCH (08:38)
[2020-11-21] MEDS: DOCUSATE SODIUM 100 MG (COLACE) CAP PO SCH (08:38)
[2020-11-21] MEDS: CEFDINIR 300 MG (OMNICEF) CAP PO SCH (08:38)
[2020-11-21] MEDS: LACTULOSE SYRUP 10GM/15ML (ENULOSE) 30ML UDC PO SCH (08:39)
[2020-11-21] MEDS: SENNOSIDES 8.6 MG (SENOKOT) TAB PO SCH (08:39)
[2020-11-21] MEDS: amLODIPine 10 MG (NORVASC) TAB PO SCH (08:39)
[2020-11-21] MEDS: OLANZapine 5 MG (ZyPREXA) TAB PO SCH (08:39)
[2020-11-21] MEDS: ENALAPRIL 5 MG (VASOTEC) TAB PO SCH (08:39)
[2020-11-21 08:45] VITALS: BP 90/58
[2020-11-21] MEDS: MIRABEGRON 50 MG PO SCH (08:45)
--- NOTE | 2020-11-21 09:50 | Occupational Ther Daily Note ---
OT Current Status-Daily Note Subjective Pt alert this morning. Not oriented at this time, however, does respond appropriately to OT's questions and 's presence/ questions. Pt agrees to tx, stating need for BM. OT/ PT co-treat this session due to high level of needs. ADL-Treatment Therapy Code Descriptions/Definitions Functional [place] Measure: 0=Not Assessed/NA 4=Minimal Assistance 1=Total Assistance 5=Supervision or Setup 2=Maximal Assistance 6=Modified [place] 3=Moderate Assistance 7=Complete IndependenceSCALE: Activities may be completed with or without assistive devices. 6-Exxrjekrwa-ehicgvy completes the activity by him/herself with no assistance from a helper. 5-Set-up or Clean-up Assistance-helper sets up or cleans up; patient completes activity. [place] assists only prior to or following the activity. 4-Supervision or Touching Assistance-helper provides verbal cues and/or touching/steadying and/or contact guard assistance as patient completes activity. Assistance may be provided throughout the activity or intermittently. 3-Partial/Moderate Assistance-helper does LESS THAN HALF the effort. [place] lifts, holds or supports trunk or limbs, but provides less than half the effort. 2-Substantial/Maximal Assistance-helper does MORE THAN HALF the effort. [place] lifts or holds trunk or limbs and provides more than half the effort. 7-Ktkuasykj-qoxngw does ALL the effort. Patient does none of the effort to complete the activity. Or, the assistance of 2 or more helpers is required for the patient to complete the activity. If activity was not attempted, code reason: 7-Patient Refused. 9-Not Applicable-not attempted and the patient did not perform the activity before the current illness, exacerbation or injury. 10-Not Attempted due to Environmental Limitations-(lack of equipment, weather restraints, etc.). 88-Not Attempted due to Medical Conditions or Safety Concerns. Eating (QC): 2 (assist from ) Shower/Bathe Self (QC): 2 (max A washing hair and grooming. ) Toileting Hygiene (QC): 1 (TD post BM attempt in stance.) Toilet Transfer (QC): 3 (min A - CGA during ambulation (HHAx1 with CGA and use of SPT attempt x1)) Other Treatment Pt bed mob with increased time and min A. Sit to stand from EOB with mod A x1, pt able to stand and turn with use of LEs with increased time (slow/ steady, BLAST FURNACE HELPER from OT to guide pt--- states BLAST FURNACE HELPER at home to guide). Pt sits on commode with arm guidance, expresses inability to complete BM at this time. Agrees to hair hygiene with shower cap, completes hair brushing with increased time with assist for the back of the head. Pt ambulates with PT assist from one side of bed to the door and back, increased tremor upon return. Pt requires max cues for turning ability to sit in chair. Pt is adjusted for proper positioning, left in recliner with all needs met, call light in reach, present for feeding tasks. Education OT Patient Education: Correct positioning, Progress toward Goal/Update tx plan, Purpose of tx/functional activities, Safety issues, Transfer techniques Teaching Recipient: Patient Teaching Methods: Demonstration, Discussion Response to Teaching: Verbalize Understanding, Return Demonstration OT Senior Living Goals Manager Pulmonary Goals Time Frame: Nov 25, 2020 Eating (QC): 5 Oral Hygiene (QC): 5 Toileting Hygiene (QC): 3 Shower/Bathe Self (QC): 2 Upper Body Dressing (QC): 4 Lower Body Dressing (QC): 2 On/Off Footwear (QC): 2 Additional Goals: 1-Demonstrate ADL Tasks, 2-Verbalize Understanding, 3-Impro veStrength/Nilda 1=Demonstrate adherence to instructed precautions during ADL tasks. 2=Patient will verbalize/demonstrate understanding of assistive devices/modifications for ADL. 3=Patient will improve strength/tolerance for activity to enable patient to perform ADL's. OT Education/Plan Problem List/Assessment Assessment: Decreased Activ Tolerance, Decreased Safety Aware, Decreased UE Strength, Dependent Transfers, Impaired Bed Mobility, Impaired Cognition, Imp aired Coordination, Impaired Funct Balance, Impaired I ADL's, Impaired Self-Care Skills Discharge Recommendations Plan/Recommendations: Continue POC Therapy Discharge Recommendati: 24 Hour Supervision, Post Acute OT Treatment Plan/Plan of Care Treatment,Training & Education: Yes Patient would benefit from OT for education, treatment and training to promote independence in ADL's, mobility, safety and/or upper extremity function for ADL's. Plan of Care: ADL Retraining, Functional Mobility, UE Funct Exercise/Act Treatment Duration: Nov 25, 2020 Frequency: 5 times per week Estimated Hrs Per Day: .25 hour per day Rehab Potential: Guarded Time/GCodes Start Time: 08:56 Stop Time: 09:13 Total Time Billed (hr/min): 17 Billed Treatment Time 1, ADL (17) TYESHA MA OTR Nov 21, 2020 09:50
--- NOTE | 2020-11-21 09:51 | Physical Therapy Daily Note ---
PT Daily Note-Current Subjective Patient in bed pre tx, agrees to PT, has no complaints of pain. Appearance Patient in recliner post tx with nurse call, phone, tray, in room, all needs met. Mental Status Patient Orientation: Person, Place Transfers SCALE: Activities may be completed with or without assistive devices. 8-Ozrdiijiop-zbyjhnq completes the activity by him/herself with no assistance from a helper. 5-Set-up or Clean-up Assistance-helper sets up or cleans up; patient completes activity. [place] assists only prior to or following the activity. 4-Supervision or Touching Assistance-helper provides verbal cues and/or touch ing/steadying and/or contact guard assistance as patient completes activity. Assistance may be provided throughout the activity or intermittently. 3-Partial/Moderate Assistance-helper does LESS THAN HALF the effort. [place] lifts, holds or supports trunk or limbs, but provides less than half the effort. 2-Substantial/Maximal Assistance-helper does MORE THAN HALF the effort. [place] lifts or holds trunk or limbs and provides more than half the effort. 2-Vhxrvgydo-lmozcc does ALL the effort. Patient does none of the effort to complete the activity. Or, the assistance of 2 or more helpers is required for the patient to complete the activity. If activity was not attempted, code reason: 7-Patient Refused. 9-Not Applicable-not attempted and the patient did not perform the activity before the current illness, exacerbation or injury. 10-Not Attempted due to Environmental Limitations-(lack of equipment, weather restraints, etc.). 88-Not Attempted due to Medical Conditions or Safety Concerns. Roll Left & Right (QC): 2 Lying to Sitting/Side of Bed(Q: 2 Sit to Stand (QC): 3 Chair/Hwk-do-Kzmmz Xfer(QC): 3 max assist for supine to sit but mod assist to stand, cues for hand placement and positioning Weight Bearing Full Weight Bearing Full Weight Bearing Gait Training Distance: 30' Walk 10 feet (QC): 3 Gait Persons Needed: 1 Gait Assistive Device: FWW min assist, festinating gait, fatigues quickly, slumped posture Exercises Seated Therapy Exercises: Ankle pumps, Long arc quads Seated Reps: 20 Treatments bed mobility and transfers, ambulation, LE exercise Assessment Current Status: Fair Progress improving endurance PT Pathology Teacher Goals Pathology Teacher Goals PT Fdc Goals Time Frame: Nov 26, 2020 Roll Left & Right (QC): 3 Sit to Lying (QC): 3 Lying-Sitting on Side/Bed(QC): 3 Sit to Stand (QC): 3 Chair/Bpk-di-Ijhvu Xfer(QC): 3 Toilet Transfer (QC): 3 Does the Patient Walk: Yes Walk 10 feet (QC): 3 Walk 50ft with 2 Turns (QC): 3 PT Plan Problem List Problem List: Activity Tolerance, Functional Strength, Safety, Balance, Gait, Transfer, Bed Mobility, ROM Treatment/Plan Treatment Plan: Continue Plan of Care Treatment Plan: Bed Mobility, Education, Functional Activity Nilda, Functional Strength, Gait, Safety, Therapeutic Exercise, Transfers Treatment Duration: Nov 26, 2020 Frequency: 6 times per week Estimated Hrs Per Day: .25 hour per day Safety Risks/Education Patient Education: Gait Training, Transfer Techniques, Correct Positioning, Safety Issues Teaching Recipient: Patient Teaching Methods: Demonstration, Discussion Response to Teaching: Reinforcement Needed Time/GCodes Time In: 0858 Time Out: 912 Total Billed Treatment Time: 15 Total Billed Treatment 1 visit FA MARILEE FOSTER PT Nov 21, 2020 09:51
[2020-11-21 09:56] LABS: BASOPHILS % (AUTO) 0 % (0-10); EOSINOPHILS # (AUTO) 0.1 10^3/uL (0.0-0.3); EOSINOPHILS % (AUTO) 0 % (0-10); HEMATOCRIT 38 % (40-54); HEMOGLOBIN 11.9 g/dL (13.3-17.7); LYMPHOCYTES # (AUTO) 1.6 10^3/uL (1.0-4.0); LYMPHOCYTES % (AUTO) 12 % (12-44); MEAN CORPUSCULAR HEMOGLOBIN 28 pg (25-34); MEAN CORPUSCULAR HGB CONC 31 g/dL (32-36); MEAN CORPUSCULAR VOLUME 90 fL (80-99); MEAN PLATELET VOLUME 10.1 fL (9.0-12.2); MONOCYTES # (AUTO) 0.8 10^3/uL (0.0-1.0); MONOCYTES % (AUTO) 6 % (0-12); NEUTROPHILS # (AUTO) 10.7 10^3/uL (1.8-7.8); NEUTROPHILS % (AUTO) 81 % (42-75); PLATELET COUNT 257 10^3/uL (130-400); WHITE BLOOD COUNT 13.1 10^3/uL (4.3-11.0)
[2020-11-21 10:13] LABS: ALANINE AMINOTRANSFERASE 6 U/L (0-55); ALBUMIN 3.2 GM/DL (3.2-4.5); ALKALINE PHOSPHATASE 75 U/L (40-136); BILIRUBIN,TOTAL 0.3 MG/DL (0.1-1.0); BUN/CREATININE RATIO 22; CARBON DIOXIDE 22 MMOL/L (21-32); CHLORIDE 107 MMOL/L (98-107); CREATININE SERUM 1.07 MG/DL (0.60-1.30); GFR ESTIMATED > 60; GLUCOSE 121 MG/DL (70-105); POTASSIUM 4.7 MMOL/L (3.6-5.0); SODIUM 138 MMOL/L (135-145); TOTAL PROTEIN 6.7 GM/DL (6.4-8.2)
[2020-11-21] MEDS ORDERED: MIRT-47 PO (11:40)
[2020-11-21] MEDS ORDERED: ENOX40DI8 SC (11:40)
[2020-11-21] MEDS ORDERED: METF-397 PO (11:40)
[2020-11-21] MEDS ORDERED: CEFD300C3 PO (11:40)
[2020-11-21] MEDS ORDERED: SNN187T PO (11:40)
[2020-11-21] MEDS ORDERED: CLON0.5T4 PO ×2 (11:40)
--- NOTE | 2020-11-21 11:40 | Discharge Summary ---
Discharge Summary Hospital Course Was the Problem List Reviewed?: Yes Problems/Dx: (1) PNA (pneumonia) Status: Acute (2) JEROME (acute kidney injury) Status: Resolved (3) Debility Status: Acute (4) Recurrent falls Status: Acute (5) Parkinson's disease Status: Chronic Hospital Course Date of Admission: Nov 16, 2020 at 10:50 Admission Diagnosis : Family Physician/Provider: [place],Counts Include [facility] Beds At [facility] Date of Discharge: 11/21/20 Discharge Diagnosis: Pneumonia, Parkinson's, dementia Hospital Course: Hospital course: Pt had a standard hospital course, he was admitted for altered mental status, hypoglycemia and sepsis with early pneumonia. He has severe Parkinsons and dementia. couldnt take care of him anymore, insurance approved [facility] and he was discharged there to complete Omnicef, he was eating and drinking well, bowel were moving and he was deemed stable for discharge. Overall prognosis very poor given the severity of his comorbidities and his advanced age. Labs and Pending Lab Test: Laboratory Tests 11/20/20 16:29: Glucometer 158H 11/20/20 21:15: Glucometer 107 11/21/20 06:30: Glucometer 121H 11/21/20 09:40: White Blood Count 13.1H, Red Blood Count 4.24L, Hemoglobin 11.9L, Hematocrit 38L , Mean Corpuscular Volume 90, Mean Corpuscular Hemoglobin 28, Mean Corpuscular Hemoglobin Concent 31L, Red Cell Distribution Width 15.8H, Platelet Count 257, Mean Platelet Volume 10.1, Immature Granulocyte % (Auto) 0, Neutrophils (%) (Auto) 81H, Lymphocytes (%) (Auto) 12, Monocytes (%) (Auto) 6, Eosinophils (%) (Auto) 0, Basophils (%) (Auto) 0, Neutrophils # (Auto) 10.7H, Lymphocytes # (Auto) 1.6, Monocytes # (Auto) 0.8, Eosinophils # (Auto) 0.1, Basophils # (Auto) 0.0, Immature Granulocyte # (Auto) 0.0, Sodium Level 138, Potassium Level 4.7, Chloride Level 107, Carbon Dioxide Level 22, Anion Gap 9, Blood Urea Nitrogen 24H, Creatinine 1.07, Estimat Glomerular Filtration Rate > 60, BUN/Creatinine Ratio 22, Glucose Level 121H, Calcium Level 9.0, Corrected Calcium 9.6, Total Bilirubin 0.3, Aspartate Amino Transf (AST/SGOT) 9, Alanine Aminotransferase (ALT/SGPT) 6, Alkaline Phosphatase 75, Total Protein 6.7, Albumin 3.2 11/21/20 11:09: Glucometer 118H Microbiology 11/16/20 Blood Culture - Preliminary, Resulted No growth Home Meds Active Reported Olanzapine 5 Mg Tablet 5 Mg PO DAILY Olanzapine 10 Mg Tablet 10 Mg PO HS Myrbetriq (Mirabegron) 50 Mg Tab.er.24h 50 Mg PO DAILY K-Tab ER (Potassium Chloride) 10 Meq Tablet.er 10 Meq PO DAILY Constulose (Lactulose) 10 Gm/15 Ml Solution 30 Ml PO DAILY Flomax (Tamsulosin HCl) 0.4 Mg Cap 0.8 Mg PO 1800 TAKES 2 (0.4MG) CAPS Clonazepam 0.5 Mg Tablet 0.5 Mg PO DAILY PRN Clonazepam 0.5 Mg Tablet 0.5 Mg PO 1800 Levetiracetam 500 Mg Tablet 500 Mg PO BID Pioglitazone HCl 30 Mg Tablet 30 Mg PO DAILY Pacerone (Amiodarone HCl) 200 Mg Tablet 200 Mg PO DAILY Carbidopa-Levodopa 25-100 Tab (Carbidopa/Levodopa) 1 Each Tablet 1 Ea PO 0600,1800 Metformin HCl 500 Mg Tablet 1,000 Mg PO 1800 TAKES 2 (500MG) TABS Lovastatin 20 Mg Tablet 20 Mg PO HS Amlodipine Besylate 10 Mg Tablet 10 Mg PO DAILY Enalapril Maleate 5 Mg Tablet 5 Mg PO BID Metformin HCl 500 Mg Tablet 500 Mg PO DAILY Assessment/Pt Instructions [facility] shelter rounds Discharge Planning: <30 minutes discharge planning Discharge Physical Examination Vital Signs Vital Signs Date Time Temp Pulse Resp B/P (MAP) Pulse Ox O2 Delivery O2 Flow Rate FiO2 11/21/20 08:45 35.8 64 20 90/58 (69) 97 Room Air 11/16/20 12:00 2.00 General Appearance: No Apparent Distress, WD/WN, Chronically ill Allergies: Coded Allergies: Sulfa (Sulfonamide Antibiotics) (Verified Allergy, Unknown, 01/14/19) Discharge Summary Date of Admission Nov 16, 2020 at 10:50 Date of Discharge Discharge Date: Nov 21, 2020 Admission Diagnosis Discharge Diagnosis Assessment: Pneumonia Chronic debility requiring shelter placement long-term Parkinson's Dementia Falls Prior stroke Plan: Antibiotic Encourage fluid intake (1) PNA (pneumonia) Status: Acute (2) JEROME (acute kidney injury) Status: Resolved (3) Debility Status: Acute (4) Recurrent falls Status: Acute (5) Parkinson's disease Status: Chronic DIYA ELDER DO Nov 21, 2020 11:40
--- NOTE | 2020-11-21 11:51 | Discharge Inst-Skilled Nursing ---
Discharge Inst-Skilled NF Reconcile Patient Problems Problems Reviewed?: Yes Chief Complaint Patient Instructions Patient Problems: Parkinsons Dementia PNA Goal: [place] Consult/Follow Up/Orders Follow Up Appt.: [facility] rounds Skilled NF Admit to: [facility]) I certify that SNF services are required to be given on an inpatient basis because of the above named patient's need for longterm care on a continuing basis for the conditions(s) for which he/she was receiving inpatient hospital services prior to his/her transfer to the SNF. Long-Term Facility Order: Nursing Services, Office Clin Asst-Evaluate & Treat, Physical Therapy-Evaluate & Treat, Speech Language-Evaluate & Treat Oxygen Delivery Method: Room Air Discharge Diet: No Restrictions Resuscitation Status: Do Not Resuscitate New & Resume Previous Orders New Medications: Cefdinir (Cefdinir) 300 Mg Capsule 300 MG PO BID for 5 Days, CAP Enoxaparin Sodium (Enoxaparin Sodium) 40 Mg/0.4 Ml Syringe 40 MG SC Q24H for 14 Days, SYRINGE Metformin HCl (Metformin HCl) 500 Mg Tablet 500 MG PO BID@07,17 for 30 Days, TAB Mirtazapine (Mirtazapine) 15 Mg Tab.rapdis 7.5 MG PO HS for 30 Days, TAB Sennosides (Senna Lax) 8.6 Mg Tablet 8.6 MG PO BID for 30 Days, TAB Continued Medications: Amiodarone HCl (Pacerone) 200 Mg Tablet 200 MG PO DAILY, TAB Amlodipine Besylate (Amlodipine Besylate) 10 Mg Tablet 10 MG PO DAILY, TAB Carbidopa/Levodopa (Carbidopa-Levodopa 25-100 Tab) 1 Each Tablet 1 EA PO 0600,1800, TAB Clonazepam (Clonazepam) 0.5 Mg Tablet 0.5 MG PO 1800, #30 TAB (This prescription has been renewed) Clonazepam (Clonazepam) 0.5 Mg Tablet 0.5 MG PO DAILY PRN for ANXIETY, #15 TAB (This prescription has been renewed) Enalapril Maleate (Enalapril Maleate) 5 Mg Tablet 5 MG PO BID, TAB Lactulose (Constulose) 10 Gm/15 Ml Solution 30 ML PO DAILY, ML Levetiracetam (Levetiracetam) 500 Mg Tablet 500 MG PO BID, TAB Lovastatin (Lovastatin) 20 Mg Tablet 20 MG PO HS, TAB Mirabegron (Myrbetriq) 50 Mg Tab.er.24h 50 MG PO DAILY, TAB Olanzapine (Olanzapine) 10 Mg Tablet 10 MG PO HS, TAB Olanzapine (Olanzapine) 5 Mg Tablet 5 MG PO DAILY, TAB Tamsulosin HCl (Flomax) 0.4 Mg Cap 0.8 MG PO 1800, CAP TAKES 2 (0.4MG) CAPS Discontinued Medications: Metformin HCl (Metformin HCl) 500 Mg Tablet 500 MG PO DAILY, TAB Metformin HCl (Metformin HCl) 500 Mg Tablet 1000 MG PO 1800, TAB TAKES 2 (500MG) TABS Pioglitazone HCl (Pioglitazone HCl) 30 Mg Tablet 30 MG PO DAILY, TAB Potassium Chloride (K-Tab ER) 10 Meq Tablet.er 10 MEQ PO DAILY, TAB Other Instructions Patient requires at least 1500cc of fluid per day and diet as tolerated for chewing Eveline Márquez Nov 21, 2020 11:50 EVELINE MÁRQUEZ DO Nov 21, 2020 11:51
[2020-11-21 14:39] VITALS: BP 90/58
== END 2020-11-21 14:45 | DRG 871 ==
LOC: EDUNIT# 07:20 → ER 07:22 → ICU 10:50 → CSD 18:09 → 4TH 11-17 13:56
PROVIDERS: ADMIT Internal Medicine; ATTEND Internal Medicine
DX: A41.9 Sepsis, unspecified organism (principal); J18.9 Pneumonia, unspecified organism; J96.01 Acute respiratory failure with hypoxia; N17.9 Acute kidney failure, unspecified; I48.92 Unspecified atrial flutter; E86.0 Dehydration; E11.649 Type 2 diabetes mellitus with hypoglycemia without coma; Z66 Do not resuscitate; Z20.822 Contact with and (suspected) exposure to COVID-19; F03.90 Unspecified dementia, unspecified severity, without behavioral disturbance, psychotic disturbance, mood disturbance, and anxiety; I12.9 Hypertensive chronic kidney disease with stage 1 through stage 4 chronic kidney disease, or unspecified chronic kidney disease; E11.22 Type 2 diabetes mellitus with diabetic chronic kidney disease; N18.9 Chronic kidney disease, unspecified; M17.11 Unilateral primary osteoarthritis, right knee; G20 Parkinson's disease; I48.91 Unspecified atrial fibrillation; G47.30 Sleep apnea, unspecified; E78.00 Pure hypercholesterolemia, unspecified; F41.9 Anxiety disorder, unspecified; F32.9 Major depressive disorder, single episode, unspecified; N40.1 Benign prostatic hyperplasia with lower urinary tract symptoms; R33.8 Other retention of urine; Z95.0 Presence of cardiac pacemaker; I27.20 Pulmonary hypertension, unspecified; I25.10 Atherosclerotic heart disease of native coronary artery without angina pectoris; G47.33 Obstructive sleep apnea (adult) (pediatric); Z79.84 Long term (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 oral hypoglycemic drugs; Z91.81 History of falling; Z88.2 Allergy status to sulfonamides
CPT/HCPCS: 36415; 71045; 80048; 80053; 80076; 80306; 81000; 82947; 83605; 83880; 84145; 85007; 85025; 85027; 85610; 85730; 87040; 87636; 93005; 94760

== ENCOUNTER 2020-12-22 17:51 | Emergency (ER) | payer MEDICARE, MEDICAID ==
[~2020-12-22] VITALS: Ht 180 cm; Wt 80.0 kg
[~2020-12-22 17:51] MED LIST changes: +AMIO200T50 PO; +CARB1TAB19 PO; +CEFD300C3 PO; +CLON0.5T4 PO; +ENOX40DI8 SC; +LACT10SO64 PO; +LEVE500T6 PO; +MIRA50TA PO; +MIRT-47 PO; +OLAN10TA71 PO; +OLN5T PO; +PIOG30TA71 PO; +POTA10TA PO; +SNN187T PO; +TMSL.4C PO
[2020-12-22 18:49] LABS: BILIRUBIN,URINE NEGATIVE (NEGATIVE); CLARITY,URINE CLEAR; COLOR,URINE YELLOW; GLUCOSE, URINE (UA) NEGATIVE (NEGATIVE); KETONES,URINE TRACE (NEGATIVE); LEUKOCYTE ESTERASE ,URINE NEGATIVE (NEGATIVE); NITRITE,URINE NEGATIVE (NEGATIVE); PH,URINE 5.5 (5-9); PROTEIN,URINE NEGATIVE (NEGATIVE)
[2020-12-22 18:58] LABS: AMORPHOUS SEDIMENT,UR FEW AMOR URATES /LPF; BACTERIA,URINE TRACE /HPF
[2020-12-22 18:59] LABS: HYALINE CASTS, URINE 25-50 /LPF
--- NOTE | 2020-12-22 18:59 | ED GU-Male ---
General Chief Complaint: - Urinary Stated Complaint: POSSIBLE UTI Nursing Triage Note: THE PT IS ASSISTED TO THE ROOM BY WHEELCHAIR. NO DISTRESS IS SEEN ON ARRIVAL. LOC IS NORMAL FOR THE PT. THE PT C/O UNABLE TO URINATE. History of Present Illness Date Seen by Provider: Dec 22, 2020 Time Seen by Provider: 18:20 Initial Comments 75-year-old male returned home from long-term care 2 days ago and his reports decreased fluid intake and difficulty urinating. He has had a small glass of milk and orange juice so far today. She does report he was drinking better yesterday. She reports a bowel movement yesterday. He has had no nausea or vomiting. Timing/Duration: this afternoon Severity/Quality: mild Associated Symptoms: denies symptoms Allergies and Home Medications Allergies Coded Allergies: Sulfa (Sulfonamide Antibiotics) (Verified Allergy, Unknown, 01/14/19) Home Medications Amiodarone HCl 200 Mg Tablet, 200 MG PO DAILY, (Reported) Amlodipine Besylate 10 Mg Tablet, 10 MG PO DAILY, (Reported) Carbidopa/Levodopa 1 Each Tablet, 1 EA PO 0600,1800, (Reported) Cefdinir 300 Mg Capsule, 300 MG PO BID Prescribed by: DIYA ELDER on 11/21/20 1140 Clonazepam 0.5 Mg Tablet, 0.5 MG PO 1800 Prescribed by: DIYA ELDER on 11/21/20 1140 Clonazepam 0.5 Mg Tablet, 0.5 MG PO DAILY PRN for ANXIETY Prescribed by: DIYA ELDER on 11/21/20 1140 Enalapril Maleate 5 Mg Tablet, 5 MG PO BID, (Reported) Enoxaparin Sodium 40 Mg/0.4 Ml Syringe, 40 MG SC Q24H Prescribed by: DIYA ELDER on 11/21/20 1140 Lactulose 10 Gm/15 Ml Solution, 30 ML PO DAILY, (Reported) Levetiracetam 500 Mg Tablet, 500 MG PO BID, (Reported) Lovastatin 20 Mg Tablet, 20 MG PO HS, (Reported) Metformin HCl 500 Mg Tablet, 500 MG PO BID@07,17 Prescribed by: DIYA ELDER on 11/21/20 1140 Mirabegron 50 Mg Tab.er.24h, 50 MG PO DAILY, (Reported) Mirtazapine 15 Mg Tab.rapdis, 7.5 MG PO HS Prescribed by: DIYA ELDER on 11/21/20 1140 Olanzapine 10 Mg Tablet, 10 MG PO HS, (Reported) Olanzapine 5 Mg Tablet, 5 MG PO DAILY, (Reported) Sennosides 8.6 Mg Tablet, 8.6 MG PO BID Prescribed by: DIYA ELDER on 11/21/20 1140 Tamsulosin HCl 0.4 Mg Cap, 0.8 MG PO 1800, (Reported) TAKES 2 (0.4MG) CAPS Patient Home Medication List Home Medication List Reviewed: Yes Review of Systems Review of Systems Constitutional: no symptoms reported Genitourinary: see HPI, other (Decreased urine output) All Other Systemes Reviewed Negative Unless Noted: Yes Past Ypfkkxw-Bcamws-Kihzoo Hx Immunizations Up To Date Tetanus Booster (TDap): Unknown PED Vaccines UTD: Yes Seasonal Allergies Seasonal Allergies: No Past Medical History Surgeries: Yes (fatty tumor removed, R shoulder, RT KNEE REPLACED) Orthopedic, Pacemaker Respiratory: Yes Sleep Apnea Currently Using CPAP: No Currently Using BIPAP: No Cardiac: Yes (meditronic PACEMAKER) Atrial Fibrillation, High Cholesterol, Hypertension Neurological: Yes Dementia, Stroke Reproductive Disorders: No Sexually Transmitted Disease: No Genitourinary: Yes Kidney Stones Gastrointestinal: Yes Chronic Constipation Musculoskeletal: Yes (right knee arthritis) Arthritis, Chronic Back Pain Endocrine: Yes Diabetes, Non-Insulin dep HEENT: No Cancer: No Psychosocial: Yes Anxiety, Depression Integumentary: No Blood Disorders: No Adverse Reaction/Blood Tranf: No Family Medical History Reviewed Nursing Family Hx Cardiovascular disease 19 MOTHER No Pertinent Family Hx Physical Exam Vital Signs Vital Signs - First Documented 12/22/20 18:17 Temp 36.6 Pulse 70 Resp 70 B/P (MAP) 120/70 (87) Capillary Refill : Less Than 3 Seconds Height, Weight, BMI Height: 5'8.50" Weight: 223lbs. 4.0oz. 101.294355dg; 24.00 BMI Method:Stated General Appearance: WD/WN, no apparent distress Neck: non-tender, full range of motion, supple, normal inspection Cardiovascular: normal peripheral pulses, regular rate, rhythm Respiratory: chest non-tender, lungs clear, normal breath sounds Gastrointestinal: normal bowel sounds, non tender, soft; No distended, No guarding, No rebound, No tenderness Neurologic/Psychiatric: no motor/sensory deficits, alert, normal mood/affect Skin: normal color, warm/dry, pallor Progress/Results/Core Measures Suspected Sepsis SIRS Temperature: Pulse: 70 Respiratory Rate: 70 Laboratory Tests 12/22/20 19:05: White Blood Count 13.0H Blood Pressure 120 /70 Mean: 87 Laboratory Tests 12/22/20 19:05: Creatinine 1.27, Platelet Count 205, Total Bilirubin 0.3 Results/Orders Lab Results Laboratory Tests Test 12/22/20 18:43 12/22/20 19:05 Range/Units Urine Color YELLOW Urine Clarity CLEAR Urine pH 5.5 5-9 Urine Specific [place] >=1.030 1.016-1.022 Urine Protein NEGATIVE NEGATIVE Urine Glucose (UA) NEGATIVE NEGATIVE Urine Ketones TRACE H NEGATIVE Urine Nitrite NEGATIVE NEGATIVE Urine Bilirubin NEGATIVE NEGATIVE Urine Urobilinogen 1.0 < = 1.0 MG/DL Urine Leukocyte Esterase NEGATIVE NEGATIVE Urine RBC (Auto) NEGATIVE NEGATIVE Urine RBC NONE /HPF Urine WBC 5-10 H /HPF Urine Crystals PRESENT H /LPF Urine Amorphous Sediment FEW FELIPA URATES H /LPF Urine Bacteria TRACE /HPF Urine Casts PRESENT /LPF Urine Hyaline Casts 25-50 H /LPF Urine Mucus LARGE H /LPF Urine Culture Indicated NO White Blood Count 13.0 H 4.3-11.0 10^3/uL Red Blood Count 4.28 L 4.30-5.52 10^6/uL Hemoglobin 11.8 L 13.3-17.7 g/dL Hematocrit 39 L 40-54 % Mean Corpuscular Volume 92 80-99 fL Mean Corpuscular Hemoglobin 28 25-34 pg Mean Corpuscular Hemoglobin Concent 30 L 32-36 g/dL Red Cell Distribution Width 16.0 H 10.0-14.5 % Platelet Count 205 130-400 10^3/uL Mean Platelet Volume 10.4 9.0-12.2 fL Immature Granulocyte % (Auto) 0 % Neutrophils (%) (Auto) 79 H 42-75 % Lymphocytes (%) (Auto) 14 12-44 % Monocytes (%) (Auto) 6 0-12 % Eosinophils (%) (Auto) 1 0-10 % Basophils (%) (Auto) 0 0-10 % Neutrophils # (Auto) 10.2 H 1.8-7.8 10^3/uL Lymphocytes # (Auto) 1.8 1.0-4.0 10^3/uL Monocytes # (Auto) 0.8 0.0-1.0 10^3/uL Eosinophils # (Auto) 0.1 0.0-0.3 10^3/uL Basophils # (Auto) 0.0 0.0-0.1 10^3/uL Immature Granulocyte # (Auto) 0.1 0.0-0.1 10^3/uL Sodium Level 141 135-145 MMOL/L Potassium Level 4.6 3.6-5.0 MMOL/L Chloride Level 105 98-107 MMOL/L Carbon Dioxide Level 27 21-32 MMOL/L Anion Gap 9 5-14 MMOL/L Blood Urea Nitrogen 21 H 7-18 MG/DL Creatinine 1.27 0.60-1.30 MG/DL Estimat Glomerular Filtration Rate 55 BUN/Creatinine Ratio 17 Glucose Level 111 H 70-105 MG/DL Calcium Level 9.1 8.5-10.1 MG/DL Corrected Calcium 9.7 8.5-10.1 MG/DL Total Bilirubin 0.3 0.1-1.0 MG/DL Aspartate Amino Transf (AST/SGOT) 9 5-34 U/L Alanine Aminotransferase (ALT/SGPT) < 6 0-55 U/L Alkaline Phosphatase 85 40-136 U/L Total Protein 6.5 6.4-8.2 GM/DL Albumin 3.3 3.2-4.5 GM/DL My Orders Orders - COLIN CRUZ Ua Culture If Indicated (12/22/20 18:07) Cbc With Automated Diff (12/22/20 18:53) Comprehensive Metabolic Panel (12/22/20 18:53) Ed Iv/Invasive Line Start (12/22/20 18:53) Ns Iv 1000 Ml (Sodium Chloride 0.9%) (12/22/20 19:00) Vital Signs/I&O 12/22/20 18:17 Temp 36.6 Pulse 70 Resp 70 B/P (MAP) 120/70 (87) Capillary Refill : Less Than 3 Seconds Blood Pressure Mean: 87 Progress Note : Time: 18:20 Progress Note Patient seen and evaluated, bladder scan completed which showed 15 mL of urine in the bladder. Patient's and the caregiver reports that he has been up to the toilet many times today saying he needed to urinate but then no output is found in the toilet. We will obtain a UA by straight cath, CBC, CMP and 1 L of normal saline per IV. Patient is drinking water, no other complaints at this time. 1929 labs showed no abnormality, patient is continuing to take small sips of water. Stressed to his the importance of him being better hydrated. Discharge instructions and return precautions reviewed. Departure Impression Primary Impression: Decreased oral intake Disposition: HOME, SELF-CARE Condition: Improved Departure-Patient Inst. Decision time for Depature: 19:30 Referrals: [facility] [place] (PCP/Family) Primary Care Physician Patient Instructions: Dehydration, Adult (DC) Add. Discharge Instructions: Push fluids, offer sips of water every 5 to 10 minutes while awake. Follow-up with your primary care provider if symptoms are not improving or worsen. Return to the emergency department for new, urgent healthcare needs. All discharge instructions reviewed with patient and/or family. Voiced understanding. COLIN CRUZ Dec 22, 2020 18:59
[2020-12-22] MEDS ORDERED: NS IV 1000 ML 1,000 ML IV SCH (19:00)
[2020-12-22 19:12] LABS: BASOPHILS % (AUTO) 0 % (0-10); EOSINOPHILS # (AUTO) 0.1 10^3/uL (0.0-0.3); EOSINOPHILS % (AUTO) 1 % (0-10); HEMATOCRIT 39 % (40-54); HEMOGLOBIN 11.8 g/dL (13.3-17.7); LYMPHOCYTES # (AUTO) 1.8 10^3/uL (1.0-4.0); LYMPHOCYTES % (AUTO) 14 % (12-44); MEAN CORPUSCULAR HEMOGLOBIN 28 pg (25-34); MEAN CORPUSCULAR HGB CONC 30 g/dL (32-36); MEAN CORPUSCULAR VOLUME 92 fL (80-99); MEAN PLATELET VOLUME 10.4 fL (9.0-12.2); MONOCYTES # (AUTO) 0.8 10^3/uL (0.0-1.0); MONOCYTES % (AUTO) 6 % (0-12); NEUTROPHILS # (AUTO) 10.2 10^3/uL (1.8-7.8); NEUTROPHILS % (AUTO) 79 % (42-75); PLATELET COUNT 205 10^3/uL (130-400)
[2020-12-22 19:34] LABS: ALANINE AMINOTRANSFERASE < 6 U/L (0-55); ALBUMIN 3.3 GM/DL (3.2-4.5); ALKALINE PHOSPHATASE 85 U/L (40-136); BILIRUBIN,TOTAL 0.3 MG/DL (0.1-1.0); BUN/CREATININE RATIO 17; CALCIUM 9.1 MG/DL (8.5-10.1); CARBON DIOXIDE 27 MMOL/L (21-32); CHLORIDE 105 MMOL/L (98-107); CREATININE SERUM 1.27 MG/DL (0.60-1.30); GFR ESTIMATED 55; GLUCOSE 111 MG/DL (70-105); POTASSIUM 4.6 MMOL/L (3.6-5.0); SODIUM 141 MMOL/L (135-145); TOTAL PROTEIN 6.5 GM/DL (6.4-8.2)
[2020-12-22 20:21] VITALS: BP 120/70
== END 2020-12-22 20:22 | disposition home or self-care (01) ==
LOC: EDUNIT# 17:51 → ER 17:53
DX: R63.8 Other symptoms and signs concerning food and fluid intake (principal); G47.30 Sleep apnea, unspecified; I10 Essential (primary) hypertension; I48.91 Unspecified atrial fibrillation; E11.9 Type 2 diabetes mellitus without complications; E78.00 Pure hypercholesterolemia, unspecified; F41.9 Anxiety disorder, unspecified; F32.9 Major depressive disorder, single episode, unspecified; Z86.73 Personal history of transient ischemic attack (TIA), and cerebral infarction without residual deficits; Z79.84 Long term (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 oral hypoglycemic drugs; Z79.899 Other long term (current) drug therapy; Z79.01 Long term (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
CPT/HCPCS: 36415; 80053; 81000; 85025

== ENCOUNTER → 2020-12-29 | Outpatient (CLI) | payer MEDICARE, MEDICAID | LOC: WOUNDCARE 14:05 | PROVIDERS: ATTEND Surgery | DX: L89.313 Pressure ulcer of right buttock, stage 3 (principal); G20 Parkinson's disease; E11.622 Type 2 diabetes mellitus with other skin ulcer; F03.90 Unspecified dementia, unspecified severity, without behavioral disturbance, psychotic disturbance, mood disturbance, and anxiety; R26.89 Other abnormalities of gait and mobility | CPT/HCPCS: A6197; A6212; G0463; 99212 ==

== ENCOUNTER → 2021-01-12 | Outpatient (CLI) | payer MEDICARE, MEDICAID ==
[~2021-01-12] MED LIST changes: +AMLO-250 PO; +AZIT250T12 PO; +MIRT7.5T8 PO; +MULT-1136 PO
== END ==
LOC: WOUNDCARE 14:02
PROVIDERS: ATTEND Surgery
DX: I96 Gangrene, not elsewhere classified (principal); L89.313 Pressure ulcer of right buttock, stage 3; G20 Parkinson's disease; E11.622 Type 2 diabetes mellitus with other skin ulcer; F03.90 Unspecified dementia, unspecified severity, without behavioral disturbance, psychotic disturbance, mood disturbance, and anxiety; R26.89 Other abnormalities of gait and mobility
CPT/HCPCS: A6212; G0463; 99212

== ENCOUNTER 2021-01-15 18:00 | Emergency (ER) | payer MEDICARE, MEDICAID ==
[~2021-01-15] VITALS: Ht 175 cm; Wt 79.0 kg
[~2021-01-15 18:00] MED LIST changes: -AMLO-250 PO; -AZIT250T12 PO; -MIRT7.5T8 PO; -MULT-1136 PO
--- NOTE | 2021-01-15 18:35 | ED General ---
General Stated Complaint: COUGH,WEAK,UNABLE TO COMMUNICATE Source of Information: Patient, Caregiver Exam Limitations: No Limitations History of Present Illness Date Seen by Provider: Jan 15, 2021 Time Seen by Provider: 18:20 Initial Comments Patient is a 75-year-old male who presents to the emergency department with his today with a chief complaint of increasing cough over the last 3 or 4 days. Patient states she herself last Saturday started developing symptoms of right upper respiratory tract infection. She states she saw the doctor twice and was diagnosed with URI. Started on Zithromax. Patient states she is feeling a little bit better today. She reports that both she and her are Covid vaccinated in June and July. She reports no known contacts with Covid positive persons. She states that Nathan has not urinated all day long today. He seemed to sleep a little bit more today and seems a little bit weaker today. She states he has some swelling in his right leg which is a little bit unusual. He has a history of hypertension, pacemaker placed, patient of Dr. Fairbanks. 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 He has been at home since December. He has a history of Parkinson's disease. she states he has not had any fever that she is aware of. Bowel movements have been normal. She states she is concerned because she feels like he does not have a very good cough effort. She was concerned about pneumonia. He is not on home oxygen and states that when she checked them this morning he was at 88 or 89% on room air. Here in the emergency department he is on 91 to 93% on room air with no evidence of increased work of breathing/respiratory distress. All other review of systems reviewed and negative except as stated. Timing/Duration: 2-3 Days Severity: Moderate Associated Systoms: Cough, Malaise, Weakness Allergies and Home Medications Allergies Coded Allergies: Sulfa (Sulfonamide Antibiotics) (Verified Allergy, Unknown, 01/14/19) Patient Home Medication List Home Medication List Reviewed: Yes Amiodarone HCl (Pacerone) 200 Mg Tablet, 200 MG PO DAILY, (Reported) Entered as Reported by: ALEC DE OLIVEIRA on 11/16/20 1316 Azithromycin (Azithromycin) 250 Mg Tablet, 250 MG PO DAILY, (Reported) Entered as Reported by: ALEC DE OLIVEIRA on 01/18/21 1329 Carbidopa/Levodopa (Carbidopa-Levodopa 25-100 Tab) 1 Each Tablet, 1 EA PO BID, (Reported) Entered as Reported by: ALEC DE OLIVEIRA on 11/16/20 1316 Clonazepam (Clonazepam) 0.5 Mg Tablet, 0.5 MG PO HS, (Reported) Entered as Reported by: ALEC DE OLIVEIRA on 01/18/21 1329 Clonazepam (Clonazepam) 0.5 Mg Tablet, 0.5 MG PO 0600,1200 PRN for ANXIETY, (Reported) Entered as Reported by: ALEC DE OLIVEIRA on 01/18/21 1329 Enalapril Maleate (Enalapril Maleate) 5 Mg Tablet, 5 MG PO BID, (Reported) Entered as Reported by: ALEC DE OLIVEIRA on 11/03/18 1120 Lactulose (Constulose) 10 Gm/15 Ml Solution, 30 ML PO DAILY, (Reported) Entered as Reported by: ALEC DE OLIVEIRA on 11/16/20 131 Levetiracetam (Levetiracetam) 500 Mg Tablet, 500 MG PO BID, (Reported) Entered as Reported by: ALEC DE OLIVEIRA on 11/16/20 131 Lovastatin (Lovastatin) 20 Mg Tablet, 20 MG PO HS, (Reported) Entered as Reported by: ALEC DE OLIVEIRA on 11/03/18 1120 Mirabegron (Myrbetriq) 50 Mg Tab.er.24h, 50 MG PO DAILY, (Reported) Entered as Reported by: ALEC DE OLIVEIRA on 11/16/20 131 Mirtazapine (Mirtazapine) 7.5 Mg Tablet, 7.5 MG PO HS, (Reported) Entered as Reported by: ALEC DE OLIVEIRA on 01/18/21 1329 Multivitamin (Multivitamin) 1 Each Tablet, 1 EACH PO DAILY, (Reported) Entered as Reported by: ALEC DE OLIVEIRA on 01/18/21 1330 Olanzapine (Olanzapine) 10 Mg Tablet, 10 MG PO HS, (Reported) Entered as Reported by: ALEC DE OLIVEIRA on 11/16/20 1316 Olanzapine (Olanzapine) 5 Mg Tablet, 5 MG PO DAILY, (Reported) Entered as Reported by: ALEC DE OLIVEIRA on 11/16/20 131 Tamsulosin HCl (Flomax) 0.4 Mg Cap, 0.4 MG PO BID, (Reported) Entered as Reported by: ALEC DE OLIVEIRA on 01/18/21 1329 Discontinued Medications Amlodipine Besylate (Amlodipine Besylate) 10 Mg Tablet, 10 MG PO DAILY, (Reported) Discontinued Reason: No Longer Taking Entered as Reported by: ALEC DE OLIVEIRA on 11/03/18 1120 Azithromycin (Azithromycin) 250 Mg Tablet, 250 MG PO UD Discontinued Reason: Duplicate Order Prescribed by: RORY CHRISTENSEN on 01/15/21 210 Cefdinir (Cefdinir) 300 Mg Capsule, 300 MG PO BID Discontinued Reason: No Longer Taking Prescribed by: DIYA ELDER on 11/21/20 1140 Clonazepam (Clonazepam) 0.5 Mg Tablet, 0.5 MG PO 1800 Discontinued Reason: Duplicate Order Prescribed by: DIYA ELDER on 11/21/20 1140 Clonazepam (Clonazepam) 0.5 Mg Tablet, 0.5 MG PO DAILY PRN for ANXIETY Discontinued Reason: No Longer Taking Prescribed by: DIYA ELDER on 11/21/20 1140 Enoxaparin Sodium (Enoxaparin Sodium) 40 Mg/0.4 Ml Syringe, 40 MG SC Q24H Discontinued Reason: No Longer Taking Prescribed by: DIYA ELDER on 11/21/20 1140 Metformin HCl (Metformin HCl) 500 Mg Tablet, 500 MG PO BID@07,17 Discontinued Reason: No Longer Taking Prescribed by: DIYA ELDER on 11/21/20 1140 Mirtazapine (Mirtazapine) 15 Mg Tab.rapdis, 7.5 MG PO HS Discontinued Reason: Duplicate Order Prescribed by: DIYA ELDER on 11/21/20 1140 Sennosides (Senna Lax) 8.6 Mg Tablet, 8.6 MG PO BID Discontinued Reason: No Longer Taking Prescribed by: DIYA ELDER on 11/21/20 1140 Tamsulosin HCl (Flomax) 0.4 Mg Cap, 0.8 MG PO 1800, (Reported) Discontinued Reason: No Longer Taking Entered as Reported by: ALEC DE OLIVEIRA on 11/16/20 1316 Review of Systems Review of Systems Constitutional: see HPI EENTM: no symptoms reported Respiratory: cough Cardiovascular: no symptoms reported Gastrointestinal: no symptoms reported Genitourinary: decreased output Musculoskeletal: other (swelling right leg) Skin: no symptoms reported Psychiatric/Neurological: Other (increased sleepiness) All Other Systems Reviewed Negative Unless Noted: Yes Past Jrokqoq-Kiskrv-Oqkrma Hx Immunizations Up To Date Tetanus Booster (TDap): Unknown PED Vaccines UTD: Yes Seasonal Allergies Seasonal Allergies: No Past Medical History Surgeries: Yes (fatty tumor removed, R shoulder, RT KNEE REPLACED) Orthopedic, Pacemaker Respiratory: Yes Sleep Apnea Currently Using CPAP: No Currently Using BIPAP: No Cardiac: Yes (meditronic PACEMAKER) Atrial Fibrillation, High Cholesterol, Hypertension Neurological: Yes Dementia, Stroke Reproductive Disorders: No Sexually Transmitted Disease: No Genitourinary: Yes Kidney Stones Gastrointestinal: Yes Chronic Constipation Musculoskeletal: Yes (right knee arthritis) Arthritis, Chronic Back Pain Endocrine: Yes Diabetes, Non-Insulin dep HEENT: No Cancer: No Psychosocial: Yes Anxiety, Depression Integumentary: No Blood Disorders: No Adverse Reaction/Blood Tranf: No Family Medical History Cardiovascular disease 19 MOTHER No Pertinent Family Hx Physical Exam Vital Signs Vital Signs - First Documented 01/15/21 18:35 Temp 36.3 Pulse 68 Resp 18 B/P (MAP) 134/75 (94) Pulse Ox 92 O2 Delivery Room Air Capillary Refill : Height, Weight, BMI Height: 5'8.50" Weight: 223lbs. 4.0oz. 101.503430mx; 24.00 BMI Method:Stated General Appearance: No Apparent Distress, WD/WN Neck: Normal Inspection Respiratory: Lungs Clear, Normal Breath Sounds, No Accessory Muscle Use, No Respiratory Distress Cardiovascular: Regular Rate, Rhythm (60's), Normal Peripheral Pulses, Systolic Murmur (throughout the precordium) Gastrointestinal: Normal Bowel Sounds, Non Tender, Soft Extremity: Normal Capillary Refill, Other (RLW edema, 1-2+) Neurologic/Psychiatric: Other (lethargic, somnolent but answers questions appropriately) Focused Exam Lactate Level 01/15/21 18:29: Lactic Acid Level 1.09 Lactic Acid Level Laboratory Tests Test 01/15/21 18:29 Lactic Acid Level 1.09 MMOL/L (0.50-2.00) Progress/Results/Core Measures Suspected Sepsis SIRS Temperature: Pulse: Respiratory Rate: Laboratory Tests 01/15/21 18:29: White Blood Count 16.3H Blood Pressure / Mean: 01/15/21 18:29: Lactic Acid Level 1.09 Laboratory Tests 01/15/21 18:29: Creatinine 1.19, Platelet Count 154, Total Bilirubin 0.4 01/15/21 19:42: INR Comment 1.1 Results/Orders Lab Results Laboratory Tests Test 01/15/21 18:02 01/15/21 18:29 01/15/21 18:36 01/15/21 19:42 Range/Units Lab Scanned Report Referred Lab Report [id number] White Blood Count 16.3 H 4.3-11.0 10^3/uL Red Blood Count 4.43 4.30-5.52 10^6/uL Hemoglobin 12.1 L 13.3-17.7 g/dL Hematocrit 40 40-54 % Mean Corpuscular Volume 91 80-99 fL Mean Corpuscular Hemoglobin 27 25-34 pg Mean Corpuscular Hemoglobin Concent 30 L 32-36 g/dL Red Cell Distribution Width 15.1 H 10.0-14.5 % Platelet Count 154 130-400 10^3/uL Mean Platelet Volume 11.5 9.0-12.2 fL Immature Granulocyte % (Auto) 0 % Neutrophils (%) (Auto) 81 H 42-75 % Lymphocytes (%) (Auto) 13 12-44 % Monocytes (%) (Auto) 5 0-12 % Eosinophils (%) (Auto) 1 0-10 % Basophils (%) (Auto) 0 0-10 % Neutrophils # (Auto) 13.2 H 1.8-7.8 10^3/uL Lymphocytes # (Auto) 2.1 1.0-4.0 10^3/uL Monocytes # (Auto) 0.8 0.0-1.0 10^3/uL Eosinophils # (Auto) 0.1 0.0-0.3 10^3/uL Basophils # (Auto) 0.1 0.0-0.1 10^3/uL Immature Granulocyte # (Auto) 0.1 0.0-0.1 10^3/uL Neutrophils % (Manual) 81 % Lymphocytes % (Manual) 12 % Monocytes % (Manual) 4 % Atypical Lymphocytes 3 % Clumped Platelets Percent Immature Platelet Fraction 8.0 H 0.0-7.6 % Hypochromasia SLIGHT Anisocytosis SLIGHT Microcytosis SLIGHT Sodium Level 139 135-145 MMOL/L Potassium Level 5.1 H 3.6-5.0 MMOL/L Chloride Level 105 98-107 MMOL/L Carbon Dioxide Level 23 21-32 MMOL/L Anion Gap 11 5-14 MMOL/L Blood Urea Nitrogen 19 H 7-18 MG/DL Creatinine 1.19 0.60-1.30 MG/DL Estimat Glomerular Filtration Rate 60 BUN/Creatinine Ratio 16 Glucose Level 114 H 70-105 MG/DL Lactic Acid Level 1.09 0.50-2.00 MMOL/L Calcium Level 8.8 8.5-10.1 MG/DL Corrected Calcium 9.4 8.5-10.1 MG/DL Total Bilirubin 0.4 0.1-1.0 MG/DL Aspartate Amino Transf (AST/SGOT) 11 5-34 U/L Alanine Aminotransferase (ALT/SGPT) 9 0-55 U/L Alkaline Phosphatase 81 40-136 U/L Total Protein 6.7 6.4-8.2 GM/DL Albumin 3.3 3.2-4.5 GM/DL Procalcitonin 0.10 H <0.10 NG/ML Influenza Type A (RT-PCR) Not Detected Not Detecte Influenza Type B (RT-PCR) Not Detected Not Detecte SARS-CoV-2 RNA (RT-PCR) Not Detected Not Detecte Prothrombin Time 14.1 12.2-14.7 SEC INR Comment 1.1 0.8-1.4 Activated Partial Thromboplast Time 20 L 24-35 SEC D-Dimer 3.12 H 0.00-0.49 UG/ML Test 01/15/21 19:52 Range/Units Urine Color YELLOW Urine Clarity CLEAR Urine pH 5.5 5-9 Urine Specific [place] 1.020 1.016-1.022 Urine Protein NEGATIVE NEGATIVE Urine Glucose (UA) NEGATIVE NEGATIVE Urine Ketones NEGATIVE NEGATIVE Urine Nitrite NEGATIVE NEGATIVE Urine Bilirubin NEGATIVE NEGATIVE Urine Urobilinogen 0.2 < = 1.0 MG/DL Urine Leukocyte Esterase NEGATIVE NEGATIVE Urine RBC (Auto) NEGATIVE NEGATIVE Urine RBC NONE /HPF Urine WBC NONE /HPF Urine Squamous Epithelial Cells 0-2 /HPF Urine Crystals NONE /LPF Urine Bacteria NEGATIVE /HPF Urine Casts NONE /LPF Urine Mucus NEGATIVE /LPF Urine Culture Indicated CULTURE PENDING Micro Results Microbiology 01/15/21 Urine Culture - Final, Complete NO GROWTH 01/15/21 Blood Culture - Preliminary, Resulted No growth 01/15/21 Blood Culture - Preliminary, Resulted No growth My Orders Orders - RORY CHRISTENSEN MD Cbc With Automated Diff (01/15/21 18:29) Comprehensive Metabolic Panel (01/15/21 18:29) Blood Culture (01/15/21 18:29) Urinalysis (01/15/21 18:) Urine Culture (01/15/21 18:) Protime With Inr (01/15/21 18:) Partial Thromboplastin Time (01/15/21 18:29) Chest 1 View, Ap/Pa Only (01/15/21 18:29) Ed Iv/Invasive Line Start (01/15/21 18:29) Ed Iv/Invasive Line Start (01/15/21 18:29) Vital Signs Adult Sepsis Patie Q15M (01/15/21 18:) O2 (01/15/21 18:29) Remove Rings In Anticipation O (01/15/21 18:29) Lactic Acid Analyzer (01/15/21 18:29) Bladder Scan (01/15/21 18:29) Covid 19 Inhouse Test (01/15/21 18:29) Influenza A And B By Pcr (01/15/21 18:29) Isolation Central Supply Req (01/15/21 18:29) Procalcitonin (Pct) (01/15/21 18:29) Fibrin Degradation Products (01/15/21 18:29) Manual Differential (01/15/21 18:29) Ct Angio Chest W (01/15/21 20:16) Ns Iv 500 Ml (Sodium Chloride 0.9%) (01/15/21 20:30) Iohexol Injection (Omnipaque 350 Mg/Ml 1 (01/15/21 20:30) Received Contrast (Hold Metformin- Contr (01/15/21 20:30) Ns (Ivpb) (Sodium Chloride 0.9% Ivpb Bag (01/15/21 20:30) Medications Given in ED Vital Signs/I&O 01/15/21 01/15/21 18:35 21:49 Temp 36.3 Pulse 68 60 Resp 18 19 B/P (MAP) 134/75 (94) 163/78 Pulse Ox 92 95 O2 Delivery Room Air Room Air Capillary Refill : Progress Note : Time: 20:02 Progress Note edside bladder scan shows about 340ml of urine in the bladder. straight cath urine obtained. bladder emptied 2058 CT scan reviewed, no evidence of pulmonary embolus. Bibasilar atelectasis is noted. Patient's request that I send him home on some a azithromycin to combat the cough that he has had over the last several days. I think this is reasonable considering his age and debility and symptoms. He has continued to sat 93/94% on room air throughout the duration of his ER visit. No increased work of breathing/respiratory distress. He does have a mild leukocytosis. Rest of his labs are unremarkable. He does have that swelling in the right lower extremity which I have advised her to bring him back for a right lower extremity venous ultrasound. An order form has been sent in her discharge paperwork. Patient's is encouraged to bring him back for this and given good return precautions. She is comfortable with the plan of care. All questions are sought and answered. Patient is stable for discharge. Diagnostic Imaging Diagonstic Imaging: Xray, CT Plain Films/CT/US/NM/MRI: chest Comments [facility] [place] NAME: NATHAN BAKER [facility] REC#: [id number] PT STATUS: REG ER : 1945 PHYSICIAN: RORY CHRISTENSEN MD ADMIT DATE: 01/15/21/ER Signed Date of Exam:01/15/21 CHEST 1 VIEW, AP/PA ONLY EXAM: CHEST 1 VIEW, AP/PA ONLY INDICATION: Sepsis. COMPARISON: 11/17/2020. FINDINGS: Low lung volumes. Cardiomegaly. Normal central pulmonary vascularity. Bibasilar atelectasis, possibly infiltrate. No large pleural effusion or pneumothorax. Cardiac pacer. IMPRESSION: Low lung volumes with bibasilar atelectasis, possibly infiltrate. Cardiomegaly. Dictated by: Dictated on workstation # [id number] Dict: 01/15/211854 Trans: 01/15/211901 [facility] [id number] Interpreted by: ARIAS SIFUENTES MD Electronically signed by: ARIAS SIFUENTES MD 01/15/211901 [facility] [place] NAME: NATHAN BAKER [facility] REC#: [id number] PT STATUS: REG ER : 1945 PHYSICIAN: RORY CHRISTENSEN MD ADMIT DATE: 01/15/21/ER Signed Date of Exam:01/15/21 CT ANGIO CHEST W PROCEDURE: CT angiography of the chest with contrast. TECHNIQUE: Multiple contiguous axial images were obtained through the chest after uneventful bolus administration of intravenous contrast. 3D reconstructed CTA MIP acquisitions were also performed. Auto Exposure Controls were utilized during the CT exam to meet ALARA standards for radiation dose reduction. INDICATION: Cough. History of Parkinson's. Elevated D-dimer. COMPARISON: 02/27/2020. FINDINGS: This helical CT pulmonary angiogram is diagnostic to the subsegmental level branches of the pulmonary artery and demonstrates no pulmonary emboli. The heart is enlarged. There is no pericardial effusion. There is no axillary, mediastinal or hilar adenopathy. Dependent atelectasis is seen in the lung bases. No focal consolidation or mass. No suspicious pulmonary nodules. No central endobronchial obstructing lesion. No pleural effusion or pneumothorax. Osseous structures appear normal. Limited views of the upper abdomen are unremarkable. IMPRESSION: 1. No acute pulmonary embolus. 2. Cardiomegaly. 3. Dependent atelectasis. Dictated by: Dictated on workstation # [id number] Dict: 01/15/212045 Trans: 01/15/212053 [facility] [id number] Interpreted by: ARGENTINA GRAY DO Electronically signed by: ARGENTINA GRAY DO 01/15/212053 Departure Impression Primary Impression: Bronchitis Additional Impression: Right leg swelling Disposition: 01 HOME, SELF-CARE Condition: Stable Departure-Patient Inst. Decision time for Depature: 21:02 Referrals: [facility] (PCP/Family) Primary Care Physician Patient Instructions: Acute Bronchitis, Adult (DC) Add. Discharge Instructions: Start the azithromycin tomorrow. 2 pills on day 1, 1 pill for the next 4 days. Make sure that he is drinking to stay well-hydrated. Come back to the emergency department if he develops any fever with shortness of breath, worsening cough or any other emergent concerns. I have sent home in order form for an ultrasound of his right leg. Please call scheduling to get this done in the next 1 to 2 days. Follow-up with [facility] for any other concerns RORY CHRISTENSEN MD Jan 15, 2021 18:34
[2021-01-15 18:47] LABS: MEAN CORPUSCULAR HEMOGLOBIN 27 pg (25-34); MEAN PLATELET VOLUME 11.5 fL (9.0-12.2); MONOCYTES # (AUTO) 0.8 10^3/uL (0.0-1.0)
[2021-01-15 18:49] LABS: BASOPHILS # (AUTO) 0.1 10^3/uL (0.0-0.1); BASOPHILS % (AUTO) 0 % (0-10); EOSINOPHILS # (AUTO) 0.1 10^3/uL (0.0-0.3); EOSINOPHILS % (AUTO) 1 % (0-10); HEMATOCRIT 40 % (40-54); HEMOGLOBIN 12.1 g/dL (13.3-17.7); LYMPHOCYTES # (AUTO) 2.1 10^3/uL (1.0-4.0); LYMPHOCYTES % (AUTO) 13 % (12-44); MEAN CORPUSCULAR HGB CONC 30 g/dL (32-36); MEAN CORPUSCULAR VOLUME 91 fL (80-99); MONOCYTES % (AUTO) 5 % (0-12); NEUTROPHILS # (AUTO) 13.2 10^3/uL (1.8-7.8); NEUTROPHILS % (AUTO) 81 % (42-75); PLATELET COUNT 154 10^3/uL (130-400); WHITE BLOOD COUNT 16.3 10^3/uL (4.3-11.0)
[2021-01-15 18:56] LABS: ALBUMIN 3.3 GM/DL (3.2-4.5); POTASSIUM 5.1 MMOL/L (3.6-5.0)
[2021-01-15 18:57] LABS: CALCIUM 8.8 MG/DL (8.5-10.1)
--- NOTE | 2021-01-15 18:58 | Diagnostic Imaging Report ---
EXAM: CHEST 1 VIEW, AP/PA ONLY INDICATION: Sepsis. COMPARISON: 11/17/2020. FINDINGS: Low lung volumes. Cardiomegaly. Normal central pulmonary vascularity. Bibasilar atelectasis, possibly infiltrate. No large pleural effusion or pneumothorax. Cardiac pacer. IMPRESSION: Low lung volumes with bibasilar atelectasis, possibly infiltrate. Cardiomegaly. Dictated by: Dictated on workstation # [id number]
[2021-01-15 18:59] LABS: TOTAL PROTEIN 6.7 GM/DL (6.4-8.2)
[2021-01-15 19:00] LABS: BILIRUBIN,TOTAL 0.4 MG/DL (0.1-1.0)
[2021-01-15 19:02] LABS: CREATININE SERUM 1.19 MG/DL (0.60-1.30)
[2021-01-15 19:15] LABS: ANISOCYTOSIS SLIGHT; ATYPICAL LYMPHOCYTES 3 %; HYPOCHROMASIA SLIGHT; LYMPHOCYTES % (MANUAL) 12 %; MICROCYTOSIS SLIGHT; MONOCYTES % (MANUAL) 4 %; NEUTROPHILS % (MANUAL) 81 %
[2021-01-15 19:59] LABS: BILIRUBIN,URINE NEGATIVE (NEGATIVE); CLARITY,URINE CLEAR; COLOR,URINE YELLOW; GLUCOSE, URINE (UA) NEGATIVE (NEGATIVE); KETONES,URINE NEGATIVE (NEGATIVE); LEUKOCYTE ESTERASE ,URINE NEGATIVE (NEGATIVE); NITRITE,URINE NEGATIVE (NEGATIVE); PH,URINE 5.5 (5-9); PROTEIN,URINE NEGATIVE (NEGATIVE)
[2021-01-15 20:05] LABS: FIBRIN DEGRADATION PRODUCTS 3.12 UG/ML (0.00-0.49); INR 1.1 (0.8-1.4); PROTHROMBIN TIME PATIENT 14.1 SEC (12.2-14.7)
[2021-01-15 20:07] LABS: BACTERIA,URINE NEGATIVE /HPF
[2021-01-15 20:08] LABS: SQUAMOUS EPITHELIAL CELL,UR 0-2 /HPF
[2021-01-15] MEDS ORDERED: NS IV 500 ML 500 ML IV SCH (20:30)
[2021-01-15] MEDS ORDERED: HOLD METFORMIN - RECEIVED CONTRAST 20 ML VIAL IV SCH (20:30)
[2021-01-15] MEDS ORDERED: NS 100 ML (IVPB) BAG IV ONE (20:30)
[2021-01-15] MEDS ORDERED: IOHEXOL 350 MG/ML 100 ML (OMNIPAQUE 350) VIAL IV ONE (20:30)
--- NOTE | 2021-01-15 20:49 | Diagnostic Imaging Report ---
PROCEDURE: CT angiography of the chest with contrast. TECHNIQUE: Multiple contiguous axial images were obtained through the chest after uneventful bolus administration of intravenous contrast. 3D reconstructed CTA MIP acquisitions were also performed. Auto Exposure Controls were utilized during the CT exam to meet ALARA standards for radiation dose reduction. INDICATION: Cough. History of Parkinson's. Elevated D-dimer. COMPARISON: 02/27/2020. FINDINGS: This helical CT pulmonary angiogram is diagnostic to the subsegmental level branches of the pulmonary artery and demonstrates no pulmonary emboli. The heart is enlarged. There is no pericardial effusion. There is no axillary, mediastinal or hilar adenopathy. Dependent atelectasis is seen in the lung bases. No focal consolidation or mass. No suspicious pulmonary nodules. No central endobronchial obstructing lesion. No pleural effusion or pneumothorax. Osseous structures appear normal. Limited views of the upper abdomen are unremarkable. IMPRESSION: 1. No acute pulmonary embolus. 2. Cardiomegaly. 3. Dependent atelectasis. Dictated by: Dictated on workstation # [id number]
[2021-01-15] MEDS ORDERED: AZIT250T12 PO (21:02)
[2021-01-15 21:49] VITALS: BP 163/78
== END 2021-01-15 21:48 | disposition home or self-care (01) ==
LOC: EDUNIT# 18:00 → ER 18:02
DX: J40 Bronchitis, not specified as acute or chronic (principal); M79.89 Other specified soft tissue disorders; G47.30 Sleep apnea, unspecified; I10 Essential (primary) hypertension; F03.90 Unspecified dementia, unspecified severity, without behavioral disturbance, psychotic disturbance, mood disturbance, and anxiety; E11.9 Type 2 diabetes mellitus without complications; F41.9 Anxiety disorder, unspecified; F32.9 Major depressive disorder, single episode, unspecified; E78.00 Pure hypercholesterolemia, unspecified; I48.91 Unspecified atrial fibrillation; Z20.822 Contact with and (suspected) exposure to COVID-19; Z86.73 Personal history of transient ischemic attack (TIA), and cerebral infarction without residual deficits; Z79.899 Other long term (current) drug therapy; Z79.84 Long term (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 oral hypoglycemic drugs; Z79.01 Long term (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
CPT/HCPCS: 36415; 51701; 71045; 71275; 80053; 81000; 83605; 84145; 85007; 85027; 85379; 85610; 85730; 87040; 87088; 87636

== ENCOUNTER 2021-01-17 11:57 | Inpatient (IN) | payer MEDICARE, MEDICAID ==
[~2021-01-17] VITALS: Ht 173 cm; Wt 84.1 kg
[~2021-01-17 11:57] MED LIST changes: +AZIT250T12 PO
--- NOTE | 2021-01-17 12:12 | ED General ---
General Stated Complaint: RESP ISSUES Source of Information: Patient, Caregiver, Spouse Exam Limitations: No Limitations (DOUGLAS HERNANDEZ) History of Present Illness Date Seen by Provider: Jan 17, 2021 Time Seen by Provider: 11:54 Initial Comments Patient presents ER by private conveyance with a caregiver and and chief complaint that he has been having declining health over the past 3 to 4 days with shortness of air, painful urination, subjective fevers and chills and decreased mentation. He has been weak today and unable to get up and walk. He has not been tested for Covid. He has not had vaccinations for Covid. He is having a cough but it is not productive of anything. He denies a history of heart disease or COPD. He is not having any chest pains. The patient had a fall yesterday and is having some pain where he hit his left eye socket and has subsequent bruising and swelling. He was seen here 2 days ago in the ER and diagnosed with a URI started on azithromycin prior to that. At that time he claimed he had been Covid vaccinated in June and July along with his . No known Covid positive contacts. Decreased urine output and weakness. Has a pacemaker placed by Dr. 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 Is been in and out of rehab and has a history of Parkinson's disease. He does not have a history of being dependent on supplemental oxygen. claims his oxygen sats are running 88-89% on room air 2 days ago. He had a 16,000 white count. Urinalysis was unremarkable [address] angiogram revealed no pulmonary embolism and bibasilar atelectasis. He had no increased work of breathing and oxygen sats were 93 to 94% on room air. Covid swab was - 01/15/2021 (DOUGLAS HERNANDEZ) Allergies and Home Medications Allergies Coded Allergies: Sulfa (Sulfonamide Antibiotics) (Verified Allergy, Unknown, 01/14/19) Patient Home Medication List Home Medication List Reviewed: Yes (DOUGLAS HERNANDEZ) Amiodarone HCl (Pacerone) 200 Mg Tablet, 200 MG PO DAILY, (Reported) Entered as Reported by: ALEC DE OLIVEIRA on 11/16/20 1316 Amlodipine Besylate (Amlodipine Besylate) 10 Mg Tablet, 10 MG PO DAILY, (Reported) Entered as Reported by: ALEC DE OLIVEIRA on 11/03/18 1120 Azithromycin (Azithromycin) 250 Mg Tablet, 250 MG PO UD Prescribed by: RORY CHRISTENSEN on 01/15/21 210 Carbidopa/Levodopa (Carbidopa-Levodopa 25-100 Tab) 1 Each Tablet, 1 EA PO 0600,1800, (Reported) Entered as Reported by: ALEC DE OLIVEIRA on 11/16/20 1316 Cefdinir (Cefdinir) 300 Mg Capsule, 300 MG PO BID Prescribed by: DIYA ELDER on 11/21/20 1140 Clonazepam (Clonazepam) 0.5 Mg Tablet, 0.5 MG PO 1800 Prescribed by: DIYA ELDER on 11/21/20 1140 Clonazepam (Clonazepam) 0.5 Mg Tablet, 0.5 MG PO DAILY PRN for ANXIETY Prescribed by: DIYA ELDER on 11/21/20 1140 Enalapril Maleate (Enalapril Maleate) 5 Mg Tablet, 5 MG PO BID, (Reported) Entered as Reported by: ALEC DE OLIVEIRA on 11/03/18 1120 Enoxaparin Sodium (Enoxaparin Sodium) 40 Mg/0.4 Ml Syringe, 40 MG SC Q24H Prescribed by: DIYA ELDER on 11/21/20 1140 Lactulose (Constulose) 10 Gm/15 Ml Solution, 30 ML PO DAILY, (Reported) Entered as Reported by: ALEC DE OLIVEIRA on 11/16/20 1316 Levetiracetam (Levetiracetam) 500 Mg Tablet, 500 MG PO BID, (Reported) Entered as Reported by: ALEC DE OLIVEIRA on 11/16/20 1316 Lovastatin (Lovastatin) 20 Mg Tablet, 20 MG PO HS, (Reported) Entered as Reported by: ALEC DE OLIVEIRA on 11/03/18 1120 Metformin HCl (Metformin HCl) 500 Mg Tablet, 500 MG PO BID@07,17 Prescribed by: DIYA ELDER on 11/21/20 1140 Mirabegron (Myrbetriq) 50 Mg Tab.er.24h, 50 MG PO DAILY, (Reported) Entered as Reported by: ALEC DE OLIVEIRA on 11/16/20 1316 Mirtazapine (Mirtazapine) 15 Mg Tab.rapdis, 7.5 MG PO HS Prescribed by: DIYA ELDER on 11/21/20 1140 Olanzapine (Olanzapine) 10 Mg Tablet, 10 MG PO HS, (Reported) Entered as Reported by: ALEC DE OLIVEIRA on 11/16/20 1316 Olanzapine (Olanzapine) 5 Mg Tablet, 5 MG PO DAILY, (Reported) Entered as Reported by: ALEC DE OLIVEIRA on 11/16/20 1316 Sennosides (Senna Lax) 8.6 Mg Tablet, 8.6 MG PO BID Prescribed by: DIYA ELDER on 11/21/20 1140 Tamsulosin HCl (Flomax) 0.4 Mg Cap, 0.8 MG PO 1800, (Reported) Entered as Reported by: ALEC DE OLIVEIRA on 11/16/20 1316 Review of Systems Review of Systems Constitutional: chills, fever, malaise, weakness EENTM: see HPI (Eye pain related to falls); No ear discharge, No hearing loss, No ear pain, No blurred vision Respiratory: see HPI, cough; No phlegm; short of breath Cardiovascular: No chest pain; edema, Hx of Intervention Gastrointestinal: No abdominal pain, No nausea, No vomiting Genitourinary: dysuria; No frequency Musculoskeletal: No back pain, No joint pain (DOUGLAS HERNANDEZ) All Other Systems Reviewed Negative Unless Noted: Yes (DOUGLAS HERNANDEZ) Past Pehwics-Mnuopw-Lmumfh Hx Patient Social History Tobacco Use?: No Use of E-Cig and/or Vaping dev: No Substance use?: No Alcohol Use?: No (DOUGLAS HERNANDEZ) Immunizations Up To Date Tetanus Booster (TDap): Unknown PED Vaccines UTD: Yes First/Initial COVID19 Vaccinat: June 2020 (DOUGLAS HERNANDEZ) Seasonal Allergies Seasonal Allergies: No (DOUGLAS HERNANDEZ) Past Medical History Surgery/Hospitalization HX: hx of Parkinsons, brain bleed. Pt admitted in November for sepsis then to SNF before going home Surgeries: Yes (fatty tumor removed, R shoulder, RT KNEE REPLACED) Orthopedic, Pacemaker Respiratory: Yes Sleep Apnea Currently Using CPAP: No Currently Using BIPAP: No Cardiac: Yes (meditronic PACEMAKER) Atrial Fibrillation, High Cholesterol, Hypertension Neurological: Yes Dementia, Stroke Reproductive Disorders: No Sexually Transmitted Disease: No Genitourinary: Yes Kidney Stones Gastrointestinal: Yes Chronic Constipation Musculoskeletal: Yes (right knee arthritis) Arthritis, Chronic Back Pain Endocrine: Yes Diabetes, Non-Insulin dep HEENT: No Cancer: No Psychosocial: Yes Anxiety, Depression Integumentary: No Blood Disorders: No Adverse Reaction/Blood Tranf: No (DOUGLAS HERNANDEZ) Family Medical History Cardiovascular disease 19 MOTHER No Pertinent Family Hx (DOUGLAS HERNANDEZ) Physical Exam-Suspected Sepsis Physical Exam Vital Signs Vital Signs - First Documented 01/17/21 11:58 Temp 37.9 Pulse 66 Resp 27 B/P (MAP) 151/83 (105) Pulse Ox 93 O2 Delivery Room Air (ELEANOR BENZ APRN) Vital Signs Capillary Refill : (DOUGLAS HERNANDEZ) Height, Weight, BMI Height: 5'8.50" Weight: 223lbs. 4.0oz. 101.319369xt; 25.00 BMI Method:Stated General Appearance: Chronically ill (Parkinsonian appearance with mild tremor), Moderate Distress Eyes: Left Eye Other (Contusion ecchymoses and tenderness around the left orbit); Bilateral Eye PERRL (3 mm reactive), Bilateral Eye EOMI HEENT: PERRL/EOMI, Pharynx Normal, Moist Mucous Membranes Neck: Full Range of Motion, Normal Inspection, Non Tender, Supple Respiratory: No Accessory Muscle Use, Decreased Breath Sounds, Respiratory Distress (Mild to moderate with breaths 30-35 a minute and oxygen saturations 93 to 94% on room air), Wheezing (Right worse than left) Cardiovascular: Regular Rate, Rhythm, Normal Peripheral Pulses, Other (Trace bipedal and upper extremity edema) Gastrointestinal: Normal Bowel Sounds, Non Tender, Soft Extremity: Normal Capillary Refill (Less than 2 seconds), Non Tender; No No Calf Tenderness (Mild, right); Swelling (Right greater than left with some warmth but no knots), Other (Various bruising and hemosiderin staining.) Neurologic/Psychiatric: Alert (GCS 14), Normal Mood/Affect (Flat affect), medical sales II-XII Norm as Tested, Other (Oriented to person and time but not situation) Skin: warm/dry, other (Various old bruises on extremities) (DOUGLAS HERNANDEZ) Focused Exam Sepsis Stage: Sepsis Possible Source: Pulmonary (DOUGLAS HERNANDEZ) Lactate Level 01/17/21 12:25: (ELEANOR BENZ APRN) Time of Focused Exam: 14:48 Respiratory: Lungs Clear, Normal Breath Sounds, No Accessory Muscle Use, No Respiratory Distress (Mild on 2 L he is 95 percent) Cardiovascular: Regular Rate, Rhythm; No No Edema (Trace bilateral right leg greater than left); No JVD, Normal Peripheral Pulses Capillary Refill: Less Than 3 Seconds Peripheral Pulses: 2+ Radial Pulses (R), 2+ Radial Pulses (L) Skin: warm/dry; No rash (DOUGLAS HERNANDEZ) Lactic Acid Level Laboratory Tests Test 01/17/21 12:25 (ELEANOR BENZ APRN) Within 3hrs of presentation: Admin fluids, Admin ABX, Blood cultures prior to ABX's, Focus exam, Lactate level (DOUGLAS HERNANDEZ) Procedures/Interventions IV : Location: Left Site: Antecubital IV Catheter Type: Peripheral IV IV Catheter Gauge: 20 (ELEANOR BENZ APRN) Progress/Results/Core Measures Suspected Sepsis SIRS Temperature: Pulse: Respiratory Rate: Laboratory Tests 01/17/21 12:25: White Blood Count 12.7H Blood Pressure / Mean: 01/17/21 12:25: Lactic Acid Level 1.75 Laboratory Tests 01/17/21 12:25: Creatinine 1.41H, INR Comment 1.1, Platelet Count 190, Total Bilirubin 0.4 (DOUGLAS HERNANDEZ) Results/Orders Lab Results Laboratory Tests Test 01/17/21 12:04 01/17/21 12:10 01/17/21 12:25 Range/Units Blood Gas Puncture Site unk Blood Gas Patient Temperature 100.1 Arterial Blood pH 7.39 7.37-7.43 Arterial Blood Partial Pressure CO2 42 35-45 MMHG Arterial Blood Partial Pressure O2 68 L 79-93 MMHG Arterial Blood HCO3 24 23-27 MMOL/L Arterial Blood Total CO2 25.6 21.0-31.0 MMOL/L Arterial Blood Oxygen Saturation 92 L 94-100 % Arterial Blood Base Excess 0.2 -2.5-2.5 MMOL/L Braydon Test UNK Blood Gas Ventilator Setting NO Blood Gas Inspired Oxygen N/A White Blood Count 12.7 H 4.3-11.0 10^3/uL Red Blood Count 4.27 L 4.30-5.52 10^6/uL Hemoglobin 11.7 L 13.3-17.7 g/dL Hematocrit 39 L 40-54 % Mean Corpuscular Volume 91 80-99 fL Mean Corpuscular Hemoglobin 27 25-34 pg Mean Corpuscular Hemoglobin Concent 30 L 32-36 g/dL Red Cell Distribution Width 15.4 H 10.0-14.5 % Platelet Count 190 130-400 10^3/uL Mean Platelet Volume 10.4 9.0-12.2 fL Immature Granulocyte % (Auto) 0 % Neutrophils (%) (Auto) 87 H 42-75 % Lymphocytes (%) (Auto) 6 L 12-44 % Monocytes (%) (Auto) 6 0-12 % Eosinophils (%) (Auto) 0 0-10 % Basophils (%) (Auto) 0 0-10 % Neutrophils # (Auto) 11.0 H 1.8-7.8 10^3/uL Lymphocytes # (Auto) 0.8 L 1.0-4.0 10^3/uL Monocytes # (Auto) 0.8 0.0-1.0 10^3/uL Eosinophils # (Auto) 0.0 0.0-0.3 10^3/uL Basophils # (Auto) 0.0 0.0-0.1 10^3/uL Immature Granulocyte # (Auto) 0.0 0.0-0.1 10^3/uL (ELEANOR BENZ APRN) Medications Given in ED Current Medications Medications Dose Ordered Sig/Eris Route Start Time Stop Time Status Last Admin Dose Admin Acetaminophen 1,000 mg ONCE PRN PO 01/17/21 12:15 01/17/21 12:37 DC 01/17/21 12:36 1,000 MG Albuterol/ Ipratropium 3 ml ONCE ONCE INH 01/17/21 12:15 01/17/21 12:16 DC 01/17/21 12:20 3 ML Cefepime HCl 1000 mg/Sterile Water 10 ml @ 200 mls/hr ONCE ONCE IV 01/17/21 12:15 01/17/21 12:17 DC 01/17/21 12:36 200 MLS/HR (ELEANOR BENZ APRN) Vital Signs/I&O 01/17/21 01/17/21 11:58 12:28 Temp 37.9 Pulse 66 Resp 27 B/P (MAP) 151/83 (105) Pulse Ox 93 95 O2 Delivery Room Air Room Air (ELEANOR BENZ APRN) Vital Signs/I&O Capillary Refill : (DOUGLAS HERNANDEZ) Progress Note #1: Time: 12:30 Progress Note Septic work-up, Covid swab. We see that he had a negative Covid swab 2 days ago. Giving him a DuoNeb for some wheezing heard worse on the right side than left. Get a BNP and will cautiously give 1 L of fluids to start. Heart failure and Covid are in the differential so we do not want to overload him with IV fluids. We will go and cover with a broad spectrum of antibiotics. Chest x- ray. He is complaining of dysuria so we will get some urine. Because of his presentation regarding put a Wall catheter in. He is too weak to stand. ABG. EKG, troponin. Presenting temperature is 100.1 with a subjective history of fevers as well as a heart rate in the 90s. CT of the head face and cervical spine given the large contusion and complaint of pain around his eye socket on the left side. was told he had an ultrasound of the leg yesterday but because he was so weak she could not get it done. We will do an ultrasound of his right lower venous extremity. Progress Note #2: Time: 14:33 Progress Note He is having fever, hypoxia increased work of breathing and I suspect sepsis although I cannot see anything on the x-ray nor did we see anything on the CT angiogram from yesterday consistent with a pneumonia. Little bit of bibasilar atelectasis perhaps there is an infiltrate in there or perhaps he has a viral pneumonia but it is not Covid or influenza. He does not have a tender abdomen. Have not yet found the source of infection but we did initiate broad-spectrum antibiotics and will consider keeping those going for now. Did discuss the goals of care with the and she feels because of his dementia that we should allow a natural if his heart were to stop beating. DNR/DNI (DOUGLAS HERNANDEZ) ECG Initial ECG Impression Date: Jan 17, 2021 Initial ECG Impression Time: 12:11 Initial ECG Rate: 68 Initial ECG Intervals: QT (516) Initial ECG Impression: Nonspecific Changes Comment Ventricularly paced complexes without any clinically relevant ST changes above or below the baseline (DAVID,DOUGLAS J) Diagnostic Imaging Diagonstic Imaging: Xray Plain Films/CT/US/NM/MRI: chest Comments [email or web address] [place], [place] NAME: NATHAN BAKER [facility] REC#: [id number] PT STATUS: REG ER : 1945 PHYSICIAN: DOUGLAS HERNANDEZ MD ADMIT DATE: 01/17/21/ER Draft Date of Exam:01/17/21 CHEST 1 VIEW, AP/PA ONLY INDICATION: Fall, sepsis. Frontal chest obtained at 1:19 p.m. and compared to 01/15/2021. FINDINGS: Heart is mildly enlarged. There is poor inspiration with mild bibasilar atelectasis. There is no definite consolidation, pneumothorax, or pleural fluid. Pacemaker is unchanged. IMPRESSION: Mild cardiomegaly. Poor inspiration with mild bibasilar atelectasis. No pneumothorax or pleural fluid. Dictated on workstation # [id number] Dict: 01/17/21 1351 Trans: 01/17/21 1355 [id number] Interpreted by: NATHAN COSTA MD Electronically signed by: Reviewed: Reviewed by Me Diagonstic Imaging: CT Plain Films/CT/US/NM/MRI: facial bones, c-spine, head Comments [email or web address]. [place], [place] NAME: NATHAN BAKER [facility] REC#: [id number] PT STATUS: REG ER : 1945 PHYSICIAN: DOUGLAS HERNANDEZ MD ADMIT DATE: 01/17/21/ER Draft Date of Exam:01/17/21 CT HEAD/FACE/CERVICAL WO CLINICAL INDICATION: Patient fell this morning. Patient's left eye is bruised and swollen. Patient has history of brain bleed last February from a fall. EXAM: Axial Head CT without IV contrast with sagittal and coronal reformations. Axial Maxillofacial CT scan without IV contrast with sagittal and coronal reformations. Axial CT scan of the cervical spine with sagittal and coronal reformations. Auto Exposure Controls were utilized during the CT exam to meet ALARA standards for radiation dose reduction. COMPARISON: CT scan of the head and cervical spine without contrast dated 06/02/2020. CT scan of the head and maxillofacial structures dated 12/30/2019. Chest x-ray dated 01/17/2021. FINDINGS: HEAD AND MAXILLOFACIAL CT: There is interval progression of encephalomalacia involving the lateral left temporal lobe. Stable encephalomalacia involving the right occipital lobe. There is no significant change to the small patchy areas of low-attenuation white matter changes involving both cerebral hemispheres, likely representing chronic small vessel ischemic disease. Again seen is a small area of encephalomalacia involving the left frontal lobe. There is no interval intracranial hemorrhage, brain herniation, or midline shift. There is no hydrocephalus. There is no intraventricular blood. There is interval development of a small amount of soft tissue swelling in the left periorbital region. There is no interval skull or maxillofacial fracture. There is minimal air adjacent to the bilateral bath mix operator spaces, left side more than the right, which appears to be within vessels and may be related to recent procedure. There are large amounts of fluid and consolidation involving the left mastoid air cells. There is no fracture seen. The right mastoid air cells are clear. There is mild to moderate mucosal thickening involving the ethmoid sinus. There is minimal mucosal thickening involving both maxillary sinuses. Poor dentition is seen. The orbits and globes are intact. There is no retrobulbar hematoma. CERVICAL SPINE CT: There is limited visualization of the C6 through T2 vertebrae due to right shoulder arthroplasty, patient body habitus, and streak artifact limiting evaluation. There is no gross cervical spine fracture, as visualized. There is slight straightening of the cervical spine posture. These findings are similar to the prior study. There are degenerative spurs and facet arthropathy involving the cervical spine. There is no significant neck soft tissue abnormality. The visualized upper lung garcia are grossly unremarkable, as visualized. Right shoulder arthroplasty, patient body habitus, and streak artifact limit evaluation. IMPRESSION: 1: There is no evidence of intracranial hemorrhage or skull fracture. 2: There is interval development of a small amount of extracranial soft tissue swelling in the left periorbital region. There is no skull or maxillofacial fracture. The orbits and globes are intact. 3: Cervical spine degenerative disease with no acute fracture or dislocation, as visualized. Dictated on workstation # [id number] Dict: 01/17/21 1329 Trans: 01/17/21 1345 [id number] Interpreted by: KEYONA ARCHULETA MD Electronically signed by: Reviewed: Reviewed by Me (DOUGLAS HERNANDEZ) Departure Communication (Admissions) Time/Spoke to Admitting Phy: 15:30 Discussed the case with Dr. Gasca and since the patient's family is okay with starting a blood thinner she is okay with starting it. Because he is only on 2 L by nasal cannula she is okay with continue with the antibiotics given his recent sick exposure and fever and not performing a CT angiogram. We discussed with the family that he may need to go to a rehab home after this stay and they are in agreement with that plan. DNR/DNI (DOUGLAS HERNANDEZ) Impression Primary Impression: Sepsis Qualified Codes: A41.9 - Sepsis, unspecified organism; R65.20 - Severe sepsis without septic shock; J96.01 - Acute respiratory failure with hypoxia Additional Impressions: Acute respiratory failure with hypoxemia Physical debility Atypical pneumonia Disposition: ADMITTED INPATIENT Condition: Stable Admissions Decision to Admit Reason: Admit from ER (General) Decision to Admit/Date: Jan 17, 2021 Time/Decision to Admit Time: 15:30 (DOUGLAS HERNANDEZ) Departure-Patient Inst. Referrals: [facility] (PCP/Family) Primary Care Physician DOUGLAS HERNANDEZ Jan 17, 2021 12:12 ELEANOR BENZ APRN Jan 17, 2021 12:44
[2021-01-17] MEDS ORDERED: VANCOMYCIN INJECTION 1,500 MG in NS IV 500 ML 500 ML IV ONE (12:15)
[2021-01-17] MEDS ORDERED: NS IV 1000 ML 1,000 ML IV SCH (12:15)
[2021-01-17] MEDS ORDERED: ACETAMINOPHEN 500 MG TAB (TYLENOL) PO PRN (12:15)
[2021-01-17] MEDS ORDERED: RT-ALBUTEROL/IPRATROPIUM 3 ML (DUONEB) VIAL INH ONE (12:15)
[2021-01-17] MEDS ORDERED: CEFEPIME INJECTION 1,000 MG in WATER (STERILE) FOR INJECTION 10 ML IV ONE (12:15)
[2021-01-17 12:30] LABS: ABG BASE EXCESS 0.2 MMOL/L (-2.5-2.5); ABG OXYGEN SATURATION 92 % (94-100); ABG PCO2 42 MMHG (35-45); ABG PH 7.39 (7.37-7.43); ABG PO2 68 MMHG (79-93); ABG TCO2 25.6 MMOL/L (21.0-31.0); PATIENT TEMP 100.1; VENTILATOR NO
[2021-01-17 12:34] LABS: BASOPHILS % (AUTO) 0 % (0-10); EOSINOPHILS % (AUTO) 0 % (0-10); HEMATOCRIT 39 % (40-54); HEMOGLOBIN 11.7 g/dL (13.3-17.7); LYMPHOCYTES # (AUTO) 0.8 10^3/uL (1.0-4.0); LYMPHOCYTES % (AUTO) 6 % (12-44); MEAN CORPUSCULAR HEMOGLOBIN 27 pg (25-34); MEAN CORPUSCULAR HGB CONC 30 g/dL (32-36); MEAN CORPUSCULAR VOLUME 91 fL (80-99); MEAN PLATELET VOLUME 10.4 fL (9.0-12.2); MONOCYTES # (AUTO) 0.8 10^3/uL (0.0-1.0); MONOCYTES % (AUTO) 6 % (0-12); NEUTROPHILS % (AUTO) 87 % (42-75); PLATELET COUNT 190 10^3/uL (130-400); WHITE BLOOD COUNT 12.7 10^3/uL (4.3-11.0)
[2021-01-17 12:44] LABS: ALBUMIN 3.4 GM/DL (3.2-4.5); CHLORIDE 104 MMOL/L (98-107); POTASSIUM 4.6 MMOL/L (3.6-5.0); SODIUM 139 MMOL/L (135-145)
[2021-01-17 12:45] LABS: CALCIUM 8.7 MG/DL (8.5-10.1)
[2021-01-17 12:46] LABS: GLUCOSE 140 MG/DL (70-105); TOTAL PROTEIN 6.6 GM/DL (6.4-8.2)
[2021-01-17 12:47] LABS: CARBON DIOXIDE 24 MMOL/L (21-32)
[2021-01-17 12:48] LABS: BILIRUBIN,TOTAL 0.4 MG/DL (0.1-1.0)
[2021-01-17 12:50] LABS: ALKALINE PHOSPHATASE 73 U/L (40-136); CREATININE SERUM 1.41 MG/DL (0.60-1.30); GFR ESTIMATED 49
[2021-01-17 12:51] LABS: BUN/CREATININE RATIO 13
[2021-01-17 12:53] LABS: ALANINE AMINOTRANSFERASE < 6 U/L (0-55); BAND NEUTROPHILS 0 %; BASOPHILS % (MANUAL) 0 %; EOSINOPHILS % (MANUAL) 0 %; LYMPHOCYTES % (MANUAL) 5 %; MONOCYTES % (MANUAL) 6 %; NEUTROPHILS % (MANUAL) 89 %; RBC MORPH NORMAL
[2021-01-17 12:55] LABS: INR 1.1 (0.8-1.4)
[2021-01-17 12:58] LABS: BILIRUBIN,URINE NEGATIVE (NEGATIVE); CLARITY,URINE CLEAR; COLOR,URINE YELLOW; GLUCOSE, URINE (UA) NEGATIVE (NEGATIVE); KETONES,URINE NEGATIVE (NEGATIVE); LEUKOCYTE ESTERASE ,URINE NEGATIVE (NEGATIVE); NITRITE,URINE NEGATIVE (NEGATIVE); PROTEIN,URINE NEGATIVE (NEGATIVE)
[2021-01-17 13:11] LABS: BACTERIA,URINE NEGATIVE /HPF; HYALINE CASTS, URINE 0-2 /LPF; WBC,URINE 0-2 /HPF
[2021-01-17] MEDS ORDERED: ASPIRIN 81 MG CHEW (CHILDREN'S ASA) PO ONE (13:15)
--- NOTE | 2021-01-17 13:46 | Diagnostic Imaging Report ---
CLINICAL INDICATION: Patient fell this morning. Patient's left eye is bruised and swollen. Patient has history of brain bleed last February from a fall. EXAM: Axial Head CT without IV contrast with sagittal and coronal reformations. Axial Maxillofacial CT scan without IV contrast with sagittal and coronal reformations. Axial CT scan of the cervical spine with sagittal and coronal reformations. Auto Exposure Controls were utilized during the CT exam to meet ALARA standards for radiation dose reduction. COMPARISON: CT scan of the head and cervical spine without contrast dated 06/02/2020. CT scan of the head and maxillofacial structures dated 12/30/2019. Chest x-ray dated 01/17/2021. FINDINGS: HEAD AND MAXILLOFACIAL CT: There is interval progression of encephalomalacia involving the lateral left temporal lobe. Stable encephalomalacia involving the right occipital lobe. There is no significant change to the small patchy areas of low-attenuation white matter changes involving both cerebral hemispheres, likely representing chronic small vessel ischemic disease. Again seen is a small area of encephalomalacia involving the left frontal lobe. There is no interval intracranial hemorrhage, brain herniation, or midline shift. There is no hydrocephalus. There is no intraventricular blood. There is interval development of a small amount of soft tissue swelling in the left periorbital region. There is no interval skull or maxillofacial fracture. There is minimal air adjacent to the bilateral broadcast designer spaces, left side more than the right, which appears to be within vessels and may be related to recent procedure. There are large amounts of fluid and consolidation involving the left mastoid air cells. There is no fracture seen. The right mastoid air cells are clear. There is mild to moderate mucosal thickening involving the ethmoid sinus. There is minimal mucosal thickening involving both maxillary sinuses. Poor dentition is seen. The orbits and globes are intact. There is no retrobulbar hematoma. CERVICAL SPINE CT: There is limited visualization of the C6 through T2 vertebrae due to right shoulder arthroplasty, patient body habitus, and streak artifact limiting evaluation. There is no gross cervical spine fracture, as visualized. There is slight straightening of the cervical spine posture. These findings are similar to the prior study. There are degenerative spurs and facet arthropathy involving the cervical spine. There is no significant neck soft tissue abnormality. The visualized upper lung garcia are grossly unremarkable, as visualized. Right shoulder arthroplasty, patient body habitus, and streak artifact limit evaluation. IMPRESSION: 1: There is no evidence of intracranial hemorrhage or skull fracture. 2: There is interval development of a small amount of extracranial soft tissue swelling in the left periorbital region. There is no skull or maxillofacial fracture. The orbits and globes are intact. 3: Cervical spine degenerative disease with no acute fracture or dislocation, as visualized. Dictated by: Dictated on workstation # [id number]
[2021-01-17] MEDS ORDERED: ASPIRIN 81 MG CHEW (CHILDREN'S ASA) ONE (13:55)
--- NOTE | 2021-01-17 13:55 | Diagnostic Imaging Report ---
INDICATION: Fall, sepsis. Frontal chest obtained at 1:19 p.m. and compared to 01/15/2021. FINDINGS: Heart is mildly enlarged. There is poor inspiration with mild bibasilar atelectasis. There is no definite consolidation, pneumothorax, or pleural fluid. Pacemaker is unchanged. IMPRESSION: Mild cardiomegaly. Poor inspiration with mild bibasilar atelectasis. No pneumothorax or pleural fluid. Dictated by: Dictated on workstation # [id number]
[2021-01-17] MEDS ORDERED: APIXABAN 5 MG (ELIQUIS) TABLET PO ONE (15:45)
--- NOTE | 2021-01-17 15:54 | Diagnostic Imaging Report ---
PROCEDURE: US right lower extremity venous. TECHNIQUE: Multiple real-time grayscale images were obtained over the right lower extremity in various projections. Additional spectral analysis and color Doppler duplex images were also obtained. INDICATION: Swelling of the right leg. FINDINGS: There is partially occlusive thrombus in the right common femoral vein. There is occlusive thrombus throughout the superficial femoral vein and popliteal vein as well as the calf veins. Greater saphenous vein is patent. No fluid collection or mass is seen. IMPRESSION: Extensive right lower extremity DVT. Dictated by: Dictated on workstation # [id number]
[2021-01-17 16:10] VITALS: BP 122/60
[2021-01-17] MEDS ORDERED: ACETAMINOPHEN 325 MG TABLET PO PRN (16:45)
[2021-01-17] MEDS ORDERED: CATHETER FLUSH 10 ML SYR IV PRN (16:45)
[2021-01-17] MEDS ORDERED: ONDANSETRON 4 MG/2 ML (SDV) Z0FRAN IV PRN (16:45)
[2021-01-17] MEDS ORDERED: ACETAMINOPHEN 650 MG SUPP (TYLENOL) PR PRN (16:45)
[2021-01-17] MEDS: cefTRIAXone 1,000 MG/SWFI 10 ML IV PUSH IV SCH ×2 (16:50)
[2021-01-17] MEDS: LACTATED RINGERS 1,000 ML IV SCH (16:50)
[2021-01-17 16:56] VITALS: BP 151/83
[2021-01-17] MEDS ORDERED: AZITHROMYCIN 500 MG/NS 250 ML IVPB IV SCH ×2 (17:00)
[2021-01-17] MEDS ORDERED: RT-ALBUTEROL/IPRATROPIUM 3 ML (DUONEB) VIAL INH PRN (19:00)
[2021-01-17 19:39] VITALS: BP 143/61
[2021-01-17] MEDS: RT-ALBUTEROL/IPRATROPIUM 3 ML (DUONEB) VIAL INH SCH (21:09)
[2021-01-17 23:40] VITALS: BP 164/73
[2021-01-18 00:29] LABS: BASOPHILS % (AUTO) 0 % (0-10); EOSINOPHILS % (AUTO) 0 % (0-10); HEMATOCRIT 37 % (40-54); HEMOGLOBIN 10.9 g/dL (13.3-17.7); LYMPHOCYTES # (AUTO) 1.2 10^3/uL (1.0-4.0); LYMPHOCYTES % (AUTO) 11 % (12-44); MEAN CORPUSCULAR HEMOGLOBIN 27 pg (25-34); MEAN CORPUSCULAR HGB CONC 30 g/dL (32-36); MEAN CORPUSCULAR VOLUME 93 fL (80-99); MEAN PLATELET VOLUME 10.5 fL (9.0-12.2); MONOCYTES % (AUTO) 9 % (0-12); NEUTROPHILS # (AUTO) 8.7 10^3/uL (1.8-7.8); NEUTROPHILS % (AUTO) 79 % (42-75); PLATELET COUNT 171 10^3/uL (130-400)
[2021-01-18 00:34] LABS: POTASSIUM 4.3 MMOL/L (3.6-5.0)
[2021-01-18 00:36] LABS: CALCIUM 8.3 MG/DL (8.5-10.1)
[2021-01-18 00:40] LABS: CREATININE SERUM 1.1 MG/DL (0.60-1.30)
[2021-01-18] MEDS: LACTATED RINGERS 1,000 ML IV SCH ×3 (01:29→17:21)
[2021-01-18] MEDS: RT-ALBUTEROL/IPRATROPIUM 3 ML (DUONEB) VIAL INH SCH ×4 (03:07→21:02)
[2021-01-18 03:45] VITALS: BP 177/84
--- NOTE | 2021-01-18 07:38 | Diagnostic Imaging Report ---
INDICATION: Sepsis. Comparison with 01/17/2021. FINDINGS: Small left basilar pleural effusion noted. There is increasing atelectasis or perihilar infiltrate on the right. The lungs are otherwise clear. Heart is not enlarged. Pacemaker on the left unchanged. IMPRESSION: 1. Small left basilar effusion now present. 2. Developing right perihilar infiltrate and/or atelectasis. Dictated by: Dictated on workstation # [id number]
[2021-01-18 08:00] VITALS: BP 173/91
--- NOTE | 2021-01-18 10:05 | History & Physical ---
HPI History of Present Illness: 75 yo male has had cough that his states he couldn't cough things up, was seen in ER on Saturday and given azithromycin and they said he needed ultrasound of his leg, but when they tried to come in for it, he couldn't walk and she had to call the fire department to help get him back home. However, his cough and breathing kept getting worse so they ended up coming back to the ER. He is not normally on supplemental oxygen at home. He was found to have DVT in leg in ER this time. He used to be on blood thinner after having a stroke many years ago, but had brain bleed in February after a fall, was at for a couple of weeks. was also diagnosed with PD at that time. He also had to go to [facility] for a while and they adjusted his mental health medications, and his states after that he did well. She also notes he was admitted in November with sepsis and went to SNF for rehab, came home in December. Date seen by provider: Jan 18, 2021 Time Seen by Provider: 10:15 Attending Physician Rasta Gasca MD [place] [place] [place] Date of Admission Jan 17, 2021 at 14:45 Home Medications Home Medications Reviewed patient Home Medication Reconciliation performed by pharmacy medication reconciliations cotton program technician and/or nursing. Patients Allergies have been reviewed. Allergies Coded Allergies: Sulfa (Sulfonamide Antibiotics) (Verified Allergy, Unknown, 01/14/19) [id number] Hx Patient Social History 2nd Hand Smoke Exposure: No Recent Hopitalizations: Yes (02/2020) Alcohol Use?: No Have you traveled recently?: No Immunizations Up To Date Tetanus Booster (TDap): Unknown Date of Pneumonia Vaccine: Jan 22, 2008 Date of Influenza Vaccine: Mar 10, 2018 Past Medical History PMedHx: Sleep Apnea Obesity Stroke - September 2007 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 Mild regurgitation. Moderate Tricuspid regurgitation Parkinson disease Dementia Atrial fibrillation PSurgHx: Cardiac Cath - 2013, 2016 Pacemaker - 2008; Generatory Change 2016 Right Total Shoulder Right Knee Arthroscopy Colonoscopy Abdominal Lipoma Excision Family Medical History Family History: Cardiovascular disease 19 MOTHER Review of Systems (CHC) Constitutional: No fever Respiratory: cough Cardiovascular: No chest pain Gastrointestinal: No constipation, No diarrhea, No nausea, No vomiting Genitourinary: frequency (sees Dr. Epperson) Skin: No rash Reviewed Test Results Reviewed Test Results Lab Laboratory Tests Test 01/17/21 12:04 01/17/21 12:05 01/17/21 12:10 01/17/21 12:25 Range/Units SARS-CoV-2 RNA (RT-PCR) Not Detected Not Detecte Urine Color YELLOW Urine Clarity CLEAR Urine pH 6.0 5-9 Urine Specific [place] >=1.030 1.016-1.022 Urine Protein NEGATIVE NEGATIVE Urine Glucose (UA) NEGATIVE NEGATIVE Urine Ketones NEGATIVE NEGATIVE Urine Nitrite NEGATIVE NEGATIVE Urine Bilirubin NEGATIVE NEGATIVE Urine Urobilinogen 0.2 < = 1.0 MG/DL Urine Leukocyte Esterase NEGATIVE NEGATIVE Urine RBC (Auto) NEGATIVE NEGATIVE Urine RBC NONE /HPF Urine WBC 0-2 /HPF Urine Squamous Epithelial Cells NONE /HPF Urine Crystals NONE /LPF Urine Bacteria NEGATIVE /HPF Urine Casts NONE /LPF Urine Hyaline Casts 0-2 H /LPF Urine Mucus NEGATIVE /LPF Urine Culture Indicated CULTURE PENDING Blood Gas Puncture Site unk Blood Gas Patient Temperature 100.1 Arterial Blood pH 7.39 7.37-7.43 Arterial Blood Partial Pressure CO2 42 35-45 MMHG Arterial Blood Partial Pressure O2 68 L 79-93 MMHG Arterial Blood HCO3 24 23-27 MMOL/L Arterial Blood Total CO2 25.6 21.0-31.0 MMOL/L Arterial Blood Oxygen Saturation 92 L 94-100 % Arterial Blood Base Excess 0.2 -2.5-2.5 MMOL/L Braydon Test UNK Blood Gas Ventilator Setting NO Blood Gas Inspired Oxygen N/A White Blood Count 12.7 H 4.3-11.0 10^3/uL Red Blood Count 4.27 L 4.30-5.52 10^6/uL Hemoglobin 11.7 L 13.3-17.7 g/dL Hematocrit 39 L 40-54 % Mean Corpuscular Volume 91 80-99 fL Mean Corpuscular Hemoglobin 27 25-34 pg Mean Corpuscular Hemoglobin Concent 30 L 32-36 g/dL Red Cell Distribution Width 15.4 H 10.0-14.5 % Platelet Count 190 130-400 10^3/uL Mean Platelet Volume 10.4 9.0-12.2 fL Immature Granulocyte % (Auto) 0 % Neutrophils (%) (Auto) 87 H 42-75 % Lymphocytes (%) (Auto) 6 L 12-44 % Monocytes (%) (Auto) 6 0-12 % Eosinophils (%) (Auto) 0 0-10 % Basophils (%) (Auto) 0 0-10 % Neutrophils # (Auto) 11.0 H 1.8-7.8 10^3/uL Lymphocytes # (Auto) 0.8 L 1.0-4.0 10^3/uL Monocytes # (Auto) 0.8 0.0-1.0 10^3/uL Eosinophils # (Auto) 0.0 0.0-0.3 10^3/uL Basophils # (Auto) 0.0 0.0-0.1 10^3/uL Immature Granulocyte # (Auto) 0.0 0.0-0.1 10^3/uL Neutrophils % (Manual) 89 % Lymphocytes % (Manual) 5 % Monocytes % (Manual) 6 % Eosinophils % (Manual) 0 % Basophils % (Manual) 0 % Band Neutrophils 0 % Blood Morphology Comment NORMAL Prothrombin Time 15.0 H 12.2-14.7 SEC INR Comment 1.1 0.8-1.4 Activated Partial Thromboplast Time 32 24-35 SEC Sodium Level 139 135-145 MMOL/L Potassium Level 4.6 3.6-5.0 MMOL/L Chloride Level 104 98-107 MMOL/L Carbon Dioxide Level 24 21-32 MMOL/L Anion Gap 11 5-14 MMOL/L Blood Urea Nitrogen 18 7-18 MG/DL Creatinine 1.41 H 0.60-1.30 MG/DL Estimat Glomerular Filtration Rate 49 BUN/Creatinine Ratio 13 Glucose Level 140 H 70-105 MG/DL Lactic Acid Level 1.75 0.50-2.00 MMOL/L Calcium Level 8.7 8.5-10.1 MG/DL Corrected Calcium 9.2 8.5-10.1 MG/DL Total Bilirubin 0.4 0.1-1.0 MG/DL Aspartate Amino Transf (AST/SGOT) 11 5-34 U/L Alanine Aminotransferase (ALT/SGPT) < 6 0-55 U/L Alkaline Phosphatase 73 40-136 U/L Troponin I 0.037 H <0.028 NG/ML B-Type Natriuretic Peptide 147.3 H <100.0 PG/ML Total Protein 6.6 6.4-8.2 GM/DL Albumin 3.4 3.2-4.5 GM/DL Mycoplasma pneumoniae IgG Antibody 1:256 H <1:16 Mycoplasma pneumoniae IgM Antibody <1:10 <1:10 Test 01/17/21 16:22 01/17/21 18:35 01/18/21 00:20 Range/Units Influenza Type A (RT-PCR) Not Detected Not Detecte Influenza Type B (RT-PCR) Not Detected Not Detecte Troponin I 0.042 H 0.036 H <0.028 NG/ML White Blood Count 11.0 4.3-11.0 10^3/uL Red Blood Count 4.00 L 4.30-5.52 10^6/uL Hemoglobin 10.9 L 13.3-17.7 g/dL Hematocrit 37 L 40-54 % Mean Corpuscular Volume 93 80-99 fL Mean Corpuscular Hemoglobin 27 25-34 pg Mean Corpuscular Hemoglobin Concent 30 L 32-36 g/dL Red Cell Distribution Width 15.3 H 10.0-14.5 % Platelet Count 171 130-400 10^3/uL Mean Platelet Volume 10.5 9.0-12.2 fL Immature Granulocyte % (Auto) 0 % Neutrophils (%) (Auto) 79 H 42-75 % Lymphocytes (%) (Auto) 11 L 12-44 % Monocytes (%) (Auto) 9 0-12 % Eosinophils (%) (Auto) 0 0-10 % Basophils (%) (Auto) 0 0-10 % Neutrophils # (Auto) 8.7 H 1.8-7.8 10^3/uL Lymphocytes # (Auto) 1.2 1.0-4.0 10^3/uL Monocytes # (Auto) 1.0 0.0-1.0 10^3/uL Eosinophils # (Auto) 0.0 0.0-0.3 10^3/uL Basophils # (Auto) 0.0 0.0-0.1 10^3/uL Immature Granulocyte # (Auto) 0.0 0.0-0.1 10^3/uL Sodium Level 141 135-145 MMOL/L Potassium Level 4.3 3.6-5.0 MMOL/L Chloride Level 108 H 98-107 MMOL/L Carbon Dioxide Level 23 21-32 MMOL/L Anion Gap 10 5-14 MMOL/L Blood Urea Nitrogen 15 7-18 MG/DL Creatinine 1.10 0.60-1.30 MG/DL Estimat Glomerular Filtration Rate 65 BUN/Creatinine Ratio 14 Glucose Level 121 H 70-105 MG/DL Calcium Level 8.3 L 8.5-10.1 MG/DL Radiology CXR 01/17: IMPRESSION: Mild cardiomegaly. Poor inspiration with mild bibasilar atelectasis. No pneumothorax or pleural fluid. CXR 01/18: IMPRESSION: 1. Small left basilar effusion now present. 2. Developing right perihilar infiltrate and/or atelectasis. CT head/face 01/17: IMPRESSION: 1: There is no evidence of intracranial hemorrhage or skull fracture. 2: There is interval development of a small amount of extracranial soft tissue swelling in the left periorbital region. There is no skull or maxillofacial fracture. The orbits and globes are intact. 3: Cervical spine degenerative disease with no acute fracture or dislocation, as visualized. Venous doppler US 01/17: IMPRESSION: Extensive right lower extremity DVT. Physical Exam-([facility]) Physical Exam Vital Signs VS - Last 72 Hours, by Label 01/17/21 01/17/21 01/17/21 01/17/21 11:58 12:28 13:10 16:00 Temp 37.9 Pulse 66 62 Resp 27 29 B/P (MAP) 151/83 (105) 129/76 Pulse Ox 93 95 96 O2 Delivery Room Air Room Air Nasal Cannula Nasal Cannula O2 Flow Rate 2.00 2.00 01/17/21 01/17/21 01/17/21 01/17/21 16:10 16:25 16:56 19:00 Temp 36.7 Pulse 64 66 65 Resp 22 B/P (MAP) 122/60 (80) Pulse Ox 93 93 O2 Delivery Nasal Cannula Nasal Cannula O2 Flow Rate 2.00 2.00 FiO2 21 01/17/21 01/17/21 01/17/2101/17/21 19:39 20:35 21:09 23:40 Temp 36.7 36.6 Pulse 59 62 Resp 20 18 B/P (MAP) 143/61 (88) 164/73 (103) Pulse Ox 96 94 90 O2 Delivery Nasal Cannula Nasal Cannula Nasal Cannula Nasal Cannula O2 Flow Rate 2.00 2.00 2.00 2.00 01/18/21 01/18/21 01/18/21 01/18/21 01:00 03:07 03:45 06:36 Temp 36.6 Pulse 69 61 61 Resp 18 B/P (MAP) 177/84 (115) Pulse Ox 95 90 O2 Delivery Nasal Cannula Nasal Cannula O2 Flow Rate 2.00 2.00 01/18/21 01/18/21 01/18/21 01/18/21 08:00 08:00 08:47 12:00 Temp 36.8 36.4 Pulse 63 61 Resp 20 20 B/P (MAP) 173/91 (118) 172/76 (108) Pulse Ox 93 95 91 O2 Delivery Nasal Cannula Nasal Cannula Nasal Cannula Nasal Cannula O2 Flow Rate 2.00 2.00 2.00 2.00 Capillary Refill : Less Than 3 Seconds General Appearance: mild distress, other (lying with neck in extension, mouth open, opens eyes occasionally) Respiratory: lungs clear, accessory muscle use Cardiovascular: regular rate, rhythm Gastrointestinal: normal bowel sounds, non tender, soft Extremities: other (right leg with pitting edema, left no edema) Neurologic/Psychiatric: other (sleeping, able to wake to voice, oriented to self only) Skin: diaphoresis Assessment/Plan Assessment/Plan Admission Status: Inpatient Order (span 2 midnights) Reason for Inpatient Admission: Extensive DVT, pneumonia with multiple underlying comorbidities at high risk for decompensation. (1) Atypical pneumonia Status: Acute Assessment & Plan: Requiring supplemental oxygen. Started on azithromycin outpatient but continued to worsen, add ceftriaxone. (2) Dvt femoral (deep venous thrombosis) Status: Acute Assessment & Plan: Discussed with , concern with starting full dose anticoagulation given he already had to stop anticoagulation last year due to history of falls and subarachnoid hemorrhage. For now, while they are weighing goals and risks, will start anticoagulation. Qualifiers: Qualified Codes: I82.411 - Acute embolism and thrombosis of right femoral vein (3) History of subarachnoid hemorrhage Status: Chronic (4) Acute kidney injury Status: Acute Assessment & Plan: Improved this am, monitor. (5) Hypertension Status: Chronic Qualifiers: Qualified Codes: I10 - Essential (primary) hypertension (6) Type II diabetes mellitus with complication Status: Chronic (7) Pacemaker Status: Chronic Permanent Comment: placed in 2007 secondary to sick sinus syndrome; generator change 2015 Last Edited By: Olena Toussaint on Nov 04, 2017 20:37 (8) Major depression, recurrent Status: Chronic (9) Dyslipidemia Status: Chronic (10) History of stroke Status: Chronic (11) CAD (coronary artery disease), pilot point coronary artery Status: Chronic Permanent Comment: Cardiac Cath 2015 50-60% distal LAD stenosis 50-60% stenosis at proximal and mid RCA 50% circumflex stenosis followed by aneurysmal dilation EF 60% Elevated left end diastolic pressure Last Edited By: Olena Toussaint on Nov 04, 2017 20:39 Assessment & Plan: Troponin detectable on admit, repeat decreased, suspect related to pneumonia/respiratory issues, type II CT, Cardiology consulted, appreciate recommendations. (12) Dementia Status: Chronic Assessment & Plan: reports at baseline he knows who she is and family members, but otherwise is mostly confused. Qualifiers: Qualified Codes: G20 - Parkinson's disease; F02.80 - Dementia in other diseases classified elsewhere without behavioral disturbance (13) Parkinson's disease Status: Chronic (14) Recurrent falls Status: Chronic (15) Physical debility Status: Acute (16) Goals of care, counseling/discussion Status: Acute Assessment & Plan: Discussed the difficulty of current situation for decision making with the need for anticoagulation but marked risks of anticoagulation, with his recent declining condition, correction stay and now readmission shortly after, as well as it sounds like some failure to thrive with marked weight loss over the last year and underlying dementia and Parkinson disease, may be appropriate to consider hospice, she is going to discuss further with family and for now we will treat as we are for pneumonia and DVT. RASTA GASCA MD Jan 18, 2021 10:04
[2021-01-18 12:00] VITALS: BP 172/76
[2021-01-18] MEDS ORDERED: CLON0.5T4 PO ×2 (13:29)
[2021-01-18] MEDS ORDERED: TMSL.4C PO (13:29)
[2021-01-18] MEDS ORDERED: MIRT7.5T8 PO (13:29)
[2021-01-18] MEDS ORDERED: AZIT250T12 PO (13:29)
[2021-01-18] MEDS ORDERED: MULT-1136 PO (13:30)
--- NOTE | 2021-01-18 16:17 | Consultation-Cardiology ---
HPI-Cardiology Cardiology Consultation Date of Consultation 01/18/21 Date of Admission Time Seen by Provider: 17:14 Indication: DVT HPI Hawk Giron is a 75 y/o M who is being seen for right leg DVT. Pt has a PMHx of CAD, sick sinus syndrome/permanent pacemaker, paroxysmal atrial fibrillation, CVA, subdural and subarchnoid hemorrhage. Pt has enlargement of his right leg that began 1-2 weeks ago. He has had no pain or tenderness in this leg since the swelling began. The leg is also not growing in size according to patient and his . Brought into the ER yesterday due to a fall at home. An ultrasound of the right leg was done at this time which showed a partially occlusive thrombus in the right common femoral vein with occlusive thrombus throughout the superficial femoral vein and popliteal vein as well as the calf veins. He is not very mobile at home and sits in a chair most of the day. He is also currently being treated for pneumonia. 75-year-old gentleman with history of paroxysmal atrial fibrillation, coronary artery disease, sinus node dysfunction with permanent pacemaker, intracranial bleed occurred in February 2020 after a fall, sustained a recent fall with laceration on his face, has been complaining of cough nonproductive, no fever or chills. Lower extremity edema, noted to have deep venous thrombosis. Unable to tolerate anticoagulation due to his intracranial bleed and unsteady gait Home Medications & Allergies Allergies: Coded Allergies: Sulfa (Sulfonamide Antibiotics) (Verified Allergy, Unknown, 01/14/19) Home Medication List Reviewed: Yes Home medication reviewed [id number] Hx Patient Social History Marital Status: Employed/Student: retired Smoking Status: Never a Smoker 2nd Hand Smoke Exposure: No Recent Hopitalizations: Yes (02/2020) Have you traveled recently?: No Alcohol Use?: No Immunizations Up To Date Tetanus Booster (TDap): Unknown Date of Pneumonia Vaccine: Jan 22, 2008 Date of Influenza Vaccine: Mar 10, 2018 Past Medical History Discussed below Family Medical History Family Medical Hx Noncontributory Family History: Cardiovascular disease 19 MOTHER Review of Systems-General Review of Systems Constitutional: see HPI; No chills, No fever; malaise, weakness EENTM: see HPI; No blurred vision, No double vision, No vision loss Respiratory: cough, dyspnea on exertion, short of breath Cardiovascular: No chest pain; edema; No palpitations Gastrointestinal: see HPI; No abdominal pain, No nausea, No vomiting Genitourinary: no symptoms reported, see HPI Musculoskeletal: see HPI, joint pain; No muscle pain; muscle stiffness, muscle weakness Skin: No rash Psychiatric/Neurological: See HPI, Anxiety, Depressed, Emotional Problems; Denies Headache, Denies Numbness, Denies Paresthesia, Denies Tingling; Tremors All Other Systems Reviewed Negative Unless Noted: Yes Reviewed Test Results Reviewed Test Results Lab Laboratory Tests Test 01/17/21 18:35 01/18/21 00:20 Range/Units Troponin I 0.042 H 0.036 H <0.028 NG/ML White Blood Count 11.0 4.3-11.0 10^3/uL Red Blood Count 4.00 L 4.30-5.52 10^6/uL Hemoglobin 10.9 L 13.3-17.7 g/dL Hematocrit 37 L 40-54 % Mean Corpuscular Volume 93 80-99 fL Mean Corpuscular Hemoglobin 27 25-34 pg Mean Corpuscular Hemoglobin Concent 30 L 32-36 g/dL Red Cell Distribution Width 15.3 H 10.0-14.5 % Platelet Count 171 130-400 10^3/uL Mean Platelet Volume 10.5 9.0-12.2 fL Immature Granulocyte % (Auto) 0 % Neutrophils (%) (Auto) 79 H 42-75 % Lymphocytes (%) (Auto) 11 L 12-44 % Monocytes (%) (Auto) 9 0-12 % Eosinophils (%) (Auto) 0 0-10 % Basophils (%) (Auto) 0 0-10 % Neutrophils # (Auto) 8.7 H 1.8-7.8 10^3/uL Lymphocytes # (Auto) 1.2 1.0-4.0 10^3/uL Monocytes # (Auto) 1.0 0.0-1.0 10^3/uL Eosinophils # (Auto) 0.0 0.0-0.3 10^3/uL Basophils # (Auto) 0.0 0.0-0.1 10^3/uL Immature Granulocyte # (Auto) 0.0 0.0-0.1 10^3/uL Sodium Level 141 135-145 MMOL/L Potassium Level 4.3 3.6-5.0 MMOL/L Chloride Level 108 H 98-107 MMOL/L Carbon Dioxide Level 23 21-32 MMOL/L Anion Gap 10 5-14 MMOL/L Blood Urea Nitrogen 15 7-18 MG/DL Creatinine 1.10 0.60-1.30 MG/DL Estimat Glomerular Filtration Rate 65 BUN/Creatinine Ratio 14 Glucose Level 121 H 70-105 MG/DL Calcium Level 8.3 L 8.5-10.1 MG/DL Physical Exam Physical Exam Vital Signs Vital Signs - First Documented 01/17/21 01/17/21 01/17/21 11:58 13:10 16:56 Temp 37.9 Pulse 66 Resp 27 B/P (MAP) 151/83 (105) Pulse Ox 93 O2 Delivery Room Air O2 Flow Rate 2.00 FiO2 21 Capillary Refill : Less Than 3 Seconds Height, Weight, BMI Height: 5'8.50" Weight: 223lbs. 4.0oz. 101.545511cc; 28.06 BMI Method:Stated General Appearance: Chronically ill (Parkinsonian appearance with mild tremor), Mild Distress Eyes: Bilateral Eye PERRL, Bilateral Eye EOMI HEENT: PERRL/EOMI Neck: Supple Respiratory: Lungs Clear, Normal Breath Sounds Cardiovascular: Regular Rate, Rhythm, No JVD, Normal Peripheral Pulses Gastrointestinal: Non Tender, Soft Back: Normal Inspection, No CVA Tenderness, No Vertebral Tenderness Extremity: Normal Capillary Refill (Less than 2 seconds), Non Tender, No Calf Tenderness, Pedal Edema, Swelling (Right greater than left with 1-2/4 pitting edema on right ) Neurologic/Psychiatric: Alert (GCS 14); No Oriented x3 (Oriented to person and place but not time); Depressed Affect Skin: Normal Color, Warm/Dry Lymphatic: No Adenopathy A/P-Cardiology Admission Diagnosis DVT Coronary artery disease Atrial fibrillation Sinus node dysfunction Assessment/Plan Right DVT, venous doppler ultrasound on 01/17 showed partially occlusive thrombus in the right common femoral vein. There is occlusive thrombus throughout the superficial femoral vein and popliteal vein as well as the calfveins. Greater saphenous vein is patent. No fluid collection or mass is seen. Recommend IVC filter to due prior history of intracranial hemorrhage. History of subdural and subarchnoid hemorrhage, Treated at February 2020 due to injury suffered from fall. Head and neck CT done on 01/17/21 showed no current evidence of intracranial hemorrhage. Pt is currently not taking any anticoagulation medication. CAD, nonobstructive- most recent cardiac catheterization on July revealed 50-60 percent stenosis at vamsi proximal and mid right coronary artery. FFR was at the lowest 0.89 after adenosine, nonobstructice disease. Sick sinus syndrome/permanent pacemaker, status post pacemaker generator replacement on November. Continue to monitor Paroxysmal atrial fibrillation, currently on amiodarone at home [id number] score of 6, yearly risk of stroke without oral anticoagulation is 9.8%. Patient is unable to tolerate oral anticoagulation due to the unsteady gait and multiple falls and intracranial bleed in February 2020. Maintained on amiodarone and maintained in ventricular paced rhythm Pneumonia, currentlty taking ceftriaxone and azithromyocin. Managed by Dr. Gasca Hypertension, Continue to monitor BP and heart rate History of CVA, patient was on chronic coumadinization but has been discontinued due to prior brain bleeds. Mild nonobstructive carotid artery stenosis, continue to monitor Parkinson disease, unsteady gait. Managed by primary care team Depression, flat affect. Was hospitalized at inpatient psych earlier in 2020. Managed by primary care team Diabetes mellitus, followed and managed by primary care physician COPD/obstructive sleep apnea Supervisory-Addendum Brief Verification & Attestation Participated in pt care: history, MDM, physical Personally performed: exam, history, MDM, supervision of care Care discussed with: Medical Student Procedures: n/a Results interpretation: Verified all documentation Verification and Attestation of Medical Student E/M Service A medical student performed and documented this service in my presence. I reviewed and verified all information documented by the medical student and made modifications to such information, when appropriate. I personally performed the physical exam and medical decision making. I made few adjustment to the note using italic font Chapito Fairbanks, Jan 18, 2021,17:22 FARAZ MARR Jan 18, 2021 16:17 CHAPITO FAIRBANKS MD Jan 18, 2021 17:22
[2021-01-18] MEDS ORDERED: ENOXAPARIN 100 MG/1 ML (LOVENOX) SYR SC SCH (16:30)
[2021-01-18 16:34] VITALS: BP 123/64
[2021-01-18] MEDS ORDERED: clonazePAM 0.5 MG (KlonoPIN) TAB PO PRN (16:45)
[2021-01-18] MEDS: cefTRIAXone 1,000 MG/SWFI 10 ML IV PUSH IV SCH ×2 (17:21)
[2021-01-18] MEDS: ENOXAPARIN 80 MG/0.8 ML (LOVENOX) SYR SC SCH (17:21)
[2021-01-18 19:46] VITALS: BP 144/84
[2021-01-18] MEDS: SIMvastatin 10 MG (ZOCOR) TAB PO SCH (20:46)
[2021-01-18] MEDS: ENALAPRIL 5 MG (VASOTEC) TAB PO SCH (20:46)
[2021-01-18] MEDS: SINEMET 25/100 (CARBIDOPA/LEVODOPA) TAB PO SCH (20:46)
[2021-01-18] MEDS: TAMSULOSIN 0.4 MG (FLOMAX) CAP PO SCH (20:47)
[2021-01-18] MEDS: clonazePAM 0.5 MG (KlonoPIN) TAB PO SCH (20:47)
[2021-01-18] MEDS: MIRTAZAPINE 15 MG (REMERON) TAB PO SCH (20:48)
[2021-01-18] MEDS: guaiFENesin (MUCINEX) 600 MG TAB PO SCH (20:48)
[2021-01-18] MEDS: OLANZapine 5 MG (ZyPREXA) TAB PO SCH (20:48)
[2021-01-18] MEDS ORDERED: NON-FORMULARY MEDICATION 1 EA EA (Mirtazapine 7.5 MG) PO SCH (21:00)
[2021-01-18] MEDS ORDERED: NON-FORMULARY MEDICATION 1 EA EA (Lovastatin 20 MG) PO SCH (21:00)
[2021-01-18] MEDS ORDERED: NON-FORMULARY MEDICATION 1 EA EA (Olanzapine 10 MG) PO SCH (21:00)
[2021-01-18 23:30] VITALS: BP 171/81
[2021-01-19] VITALS (8 sets, daily range): BP systolic 144–180; BP diastolic 63–89
[2021-01-19] MEDS: LACTATED RINGERS 1,000 ML IV SCH ×3 (01:09→17:43)
[2021-01-19] MEDS: RT-ALBUTEROL/IPRATROPIUM 3 ML (DUONEB) VIAL INH SCH ×3 (02:21→15:15)
[2021-01-19] MEDS: ENOXAPARIN 80 MG/0.8 ML (LOVENOX) SYR SC SCH ×2 (05:39→17:41)
[2021-01-19] MEDS: MULTIVIT W/MINERALS TAB (THERAGRAN M) PO SCH (06:08)
[2021-01-19 06:53] LABS: HEMATOCRIT 35 % (40-54); HEMOGLOBIN 10.8 g/dL (13.3-17.7); MEAN CORPUSCULAR HEMOGLOBIN 27 pg (25-34); MEAN CORPUSCULAR HGB CONC 31 g/dL (32-36); MEAN CORPUSCULAR VOLUME 89 fL (80-99); MEAN PLATELET VOLUME 11.3 fL (9.0-12.2); PLATELET COUNT 191 10^3/uL (130-400); WHITE BLOOD COUNT 9.2 10^3/uL (4.3-11.0)
[2021-01-19 07:12] LABS: CALCIUM 8.5 MG/DL (8.5-10.1); CREATININE SERUM 0.97 MG/DL (0.60-1.30); POTASSIUM 4.1 MMOL/L (3.6-5.0)
--- NOTE | 2021-01-19 07:40 | Cardiology Progress Note ---
Subjective Date Seen by Provider: Jan 19, 2021 Time Seen by Provider: 08:41 Subjective/Events-last exam Pt has a wet, weak cough this morning. Nurse reports that the cough was present throughout the night. When I asked patient how he was doing he said he was fine. Denied having any leg pain associated with the DVT. Review of Systems General: No Chills, No Other (fever) HEENT: No Head Aches, No Visual Changes, No Eye Pain; Sinus Congestion Pulmonary: Cough, Other (SOB) Cardiovascular: Edema; No: Chest Pain, Palpitations, Lt Headedness Gastrointestinal: Constipation; No: Nausea, Vomiting, Abdominal Pain Genitourinary: No Dysuria, No Frequency Musculoskeletal: No: leg pain, foot pain Neurological: No: Weakness, Numbness Focused Exam Lactate Level 01/17/21 12:25: Lactic Acid Level 1.75 Time of Focused Exam: 14:48 Objective-Cardiology Exam Last Set of Vital Signs Vital Signs 01/17/21 01/19/21 01/19/21 16:56 03:25 07:32 Temp 36.9 Pulse 67 Resp 18 B/P (MAP) 166/80 (108) Pulse Ox 96 O2 Delivery Nasal Cannula O2 Flow Rate 2.00 FiO2 21 I&O Intake and Output 01/19/21 00:00 Intake Total 2138 ml Output Total 2150 ml Balance -12 ml Intake Oral 1138 ml IV Total 1000 ml Output Urine Total 2150 ml General: Alert, Cooperative, Mild Distress, Other (A&Ox2, not oriented to time ) HEENT: PERRLA, EOMI Neck: Supple, No JVD Lungs: Other (Wet, weak, hacky cough) Heart: Regular Rate, Normal S1, Normal S2, No Murmurs Abdomen: Soft, No Tenderness Extremities: No Cyanosis, Other (B/L pedal edema R>L. Pitting 2-3/4 on right, 1/4 on left. No tenderness) Skin: No Rashes, No Significant Lesion Neuro: Sensation Intact, Other (Strength 3/5 all extremities. Mild tremor ) Psych/Mental Status: Mood NL, Other (Depressed affect. ) Results Lab Laboratory Tests 01/19/21 06:15 A/P-Cardiology Admission Diagnosis DVT Coronary artery disease Atrial fibrillation Sinus node dysfunction Assessment/Plan Right DVT, venous doppler ultrasound on 01/17 showed partially occlusive thrombus in the right common femoral vein. There is occlusive thrombus throughout the superficial femoral vein and popliteal vein as well as the calf veins. Greater saphenous vein is patent. No fluid collection or mass is seen. Recommend IVC filter to due prior history of intracranial hemorrhage. Has been started on Lovenox SC injection. History of subdural and subarchnoid hemorrhage, Treated at February 2020 due to injury suffered from fall. Head and neck CT done on 01/17/21 showed no current evidence of intracranial hemorrhage. Has been started on Lovenox SC injection. CAD, nonobstructive- most recent cardiac catheterization on July revealed 50-60 percent stenosis at the proximal and mid right coronary artery. F FR was at the lowest 0.89 after adenosine, nonobstructice disease. Had slight elevation in troponin, no EKG changes. Probably underlying progression of his coronary artery disease, conservative management is recommended, cannot tolerate long-term dual antiplatelet therapy. Sick sinus syndrome/permanent pacemaker, status post pacemaker generator replacement on November. Continue to monitor Paroxysmal atrial fibrillation, currently on amiodarone at home [id number] score of 6, yearly risk of stroke without oral anticoagulation is 9.8%. Patient is unable to tolerate oral anticoagulation due to the unsteady gait and multiple falls and intracranial bleed in February 2020. Maintained on amiodarone and maintained in ventricular paced rhythm Atypical pneumonia, currentlty taking ceftriaxone and azithromyocin. Managed by Dr. Gasca Hypertension, Continue to monitor BP and heart rate History of CVA, patient was on chronic coumadinization but has been discontinued due to prior brain bleeds. Mild nonobstructive carotid artery stenosis, continue to monitor Parkinson disease, unsteady gait. Managed by primary care team Depression, flat affect. Was hospitalized at inpatient psych earlier in 2020. Managed by primary care team Diabetes mellitus, followed and managed by primary care physician COPD/obstructive sleep apnea Supervisory-Addendum Brief Verification & Attestation Participated in pt care: history, MDM, physical Personally performed: exam, history, MDM, supervision of care Care discussed with: Medical Student Procedures: n/a Results interpretation: Verified all documentation Verification and Attestation of Medical Student E/M Service A medical student performed and documented this service in my presence. I reviewed and verified all information documented by the medical student and made modifications to such information, when appropriate. I personally performed the physical exam and medical decision making. I made few modifications to the note using italic font Yohana Fairbanks, Jan 19, 2021,08:43 FARAZ MARR Jan 19, 2021 07:40 YOHANA FAIRBANKS MD Jan 19, 2021 08:44
[2021-01-19] MEDS ORDERED: NON-FORMULARY MEDICATION 1 EA EA (Mirabegron (Myrbetriq) 50 MG) PO SCH (09:00)
[2021-01-19] MEDS ORDERED: LACTULOSE 10 GM/15 ML 30 ML POUR BOTTLE FOR ENEMA PO SCH (09:00)
[2021-01-19] MEDS ORDERED: NON-FORMULARY MEDICATION 1 EA EA (Multivitamin 1 EACH) PO SCH (09:00)
[2021-01-19] MEDS: SINEMET 25/100 (CARBIDOPA/LEVODOPA) TAB PO SCH ×2 (09:45→19:56)
[2021-01-19] MEDS: TAMSULOSIN 0.4 MG (FLOMAX) CAP PO SCH ×2 (09:45→19:56)
[2021-01-19] MEDS: OLANZapine 5 MG (ZyPREXA) TAB PO SCH ×2 (09:45→19:56)
[2021-01-19] MEDS: guaiFENesin (MUCINEX) 600 MG TAB PO SCH ×2 (09:45→19:55)
[2021-01-19] MEDS: ENALAPRIL 5 MG (VASOTEC) TAB PO SCH ×2 (09:45→19:56)
[2021-01-19] MEDS: AMIODARONE 200 MG (CORDARONE) TAB PO SCH (09:46)
[2021-01-19] MEDS: LACTULOSE SYRUP 10GM/15ML (ENULOSE) 30ML UDC PO SCH (09:46)
--- NOTE | 2021-01-19 11:51 | Progress Note ---
Subjective Subjective/Events-last exam Patient feeling better today, able to get to chair well and is speaking much more clearly. He denies pain, is sitting in chair, not on supplemental oxygen currently. Focused Exam Lactate Level 01/17/21 12:25: Lactic Acid Level 1.75 Time of Focused Exam: 1448 Objective Exam Last Set of Vital Signs Vital Signs Date Time Temp Pulse Resp B/P (MAP) Pulse Ox O2 Delivery O2 Flow Rate FiO2 01/19/21 11:13 37.2 64 20 146/76 (99) 91 Room Air 01/19/21 08:00 2.00 01/17/21 16:56 21 Capillary Refill : Less Than 3 Seconds I&O Intake and Output 01/19/21 00:00 Intake Total 2138 ml Output Total 2150 ml Balance -12 ml Intake Oral 1138 ml IV Total 1000 ml Output Urine Total 2150 ml General: Alert, No Acute Distress Lungs: Clear to Auscultation, Normal Air Movement Heart: Regular Rate, No Murmurs Abdomen: Normal Bowel Sounds, Soft Neuro: Other (oriented to self only) Psych/Mental Status: Mood NL Results/Procedures Lab Laboratory Tests 01/19/21 06:15: White Blood Count 9.2, Red Blood Count 3.96L, Hemoglobin 10.8L, Hematocrit 35L, Mean Corpuscular Volume 89, Mean Corpuscular Hemoglobin 27, Mean Corpuscular Hemoglobin Concent 31L, Red Cell Distribution Width 15.2H, Platelet Count 191, Mean Platelet Volume 11.3, Sodium Level 140, Potassium Level 4.1, Chloride Level 106, Carbon Dioxide Level 25, Anion Gap 9, Blood Urea Nitrogen 12, Creatinine 0.97, Estimat Glomerular Filtration Rate 75, BUN/Creatinine Ratio 12, Glucose Level 95, Calcium Level 8.5 Microbiology 01/17/21 Urine Culture - Final, Complete NO GROWTH 01/17/21 Blood Culture - Preliminary, Resulted No growth Radiology CXR 01/17: IMPRESSION: Mild cardiomegaly. Poor inspiration with mild bibasilar atelectasis. No pneumothorax or pleural fluid. CXR 01/18: IMPRESSION: 1. Small left basilar effusion now present. 2. Developing right perihilar infiltrate and/or atelectasis. CT head/face 01/17: IMPRESSION: 1: There is no evidence of intracranial hemorrhage or skull fracture. 2: There is interval development of a small amount of extracranial soft tissue swelling in the left periorbital region. There is no skull or maxillofacial fracture. The orbits and globes are intact. 3: Cervical spine degenerative disease with no acute fracture or dislocation, as visualized. Venous doppler US 01/17: IMPRESSION: Extensive right lower extremity DVT. Assessment/Plan Assessment/Plan (1) Atypical pneumonia Status: Acute Assessment & Plan: Requiring supplemental oxygen. Started on azithromycin outpatient but continued to worsen, add ceftriaxone. 01/19 appears to be improving, tolerating room air (2) Dvt femoral (deep venous thrombosis) Status: Acute Assessment & Plan: Discussed with , concern with starting full dose antico agulation given he already had to stop anticoagulation last year due to history of falls and subarachnoid hemorrhage. For now, while they are weighing goals and risks, will start anticoagulation. 01/[address] Camacho to discuss IVC filter. Qualifiers: Qualified Codes: I82.411 - Acute embolism and thrombosis of right femoral vein (3) History of subarachnoid hemorrhage Status: Chronic (4) Acute kidney injury Status: Resolved Assessment & Plan: Improved this am, monitor. (5) Hypertension Status: Chronic Qualifiers: Qualified Codes: I10 - Essential (primary) hypertension (6) Type II diabetes mellitus with complication Status: Chronic (7) Pacemaker Status: Chronic Permanent Comment: placed in 2007 secondary to sick sinus syndrome; generator change 2015 Last Edited By: Olena Toussaint on Nov 04, 2017 20:37 (8) Major depression, recurrent Status: Chronic (9) Dyslipidemia Status: Chronic (10) History of stroke Status: Chronic (11) CAD (coronary artery disease), [place] coronary artery Status: Chronic Permanent Comment: Cardiac Cath 2016 50-60% distal LAD stenosis 50-60% stenosis at proximal and mid RCA 50% circumflex stenosis followed by aneurysmal dilation EF 60% Elevated left end diastolic pressure Last Edited By: Olena Toussaint on Nov 04, 2017 20:39 Assessment & Plan: Troponin detectable on admit, repeat decreased, suspect related to pneumonia/respiratory issues, type II SD, Cardiology consulted, appreciate recommendations. (12) Dementia Status: Chronic Assessment & Plan: reports at baseline he knows who she is and family members, but otherwise is mostly confused. Qualifiers: Qualified Codes: G20 - Parkinson's disease; F02.80 - Dementia in other diseases classified elsewhere without behavioral disturbance (13) Parkinson's disease Status: Chronic (14) Recurrent falls Status: Chronic (15) Physical debility Status: Acute (16) Goals of care, counseling/discussion Status: Acute Assessment & Plan: Discussed the difficulty of current situation for decision making with the need for anticoagulation but marked risks of anticoagulation, with his recent declining condition, residential stay and now readmission shortly after, as well as it sounds like some failure to thrive with marked weight loss over the last year and underlying dementia and Parkinson disease, may be appropriate to consider hospice, she is going to discuss further with family and for now we will treat as we are for pneumonia and DVT. RASTA ROSALES MD Jan 19, 2021 11:51
[2021-01-19] MEDS ORDERED: BISACODYL 10 MG SUPP (DULCOLAX) PR ONE (12:00)
--- NOTE | 2021-01-19 12:08 | Physical Therapy Evaluation ---
PT Evaluation-General Medical Diagnosis Admission Date Jan 17, 2021 at 14:45 Medical Diagnosis: sepsis/atypical pneumonia/respiratory failure/elevated troponin Onset Date: Jan 17, 2021 Therapy Diagnosis Therapy Diagnosis: impaired mobility/weakness Height/Weight Height (Feet): 5 Height (Inches): 8.50 Weight (Pounds): 223 Weight (Ounces): 4.0 Precautions Precautions/Isolations: Fall Prevention, Standard Precautions, Pressure Ulcer Referral Physician: Campos Medical History Pertinent Medical History: Atrial Fib, CAD, CVA, DM, Dementia, HTN, Parkinson's Current History ER secondary to weakness, fever and chills Reviewed History: Yes Social History Home: Single Level Current Living Status: Spouse (and [employer] workers) Entry Into Home: Ramp Prior Prior Level of Function SCALE: Activities may be completed with or without assistive devices. 7-Aehmyubbsb-popqqgg completes the activity by him/herself with no assistance from a helper. 5-Set-up or Clean-up Assistance-helper sets up or cleans up; patient completes activity. [place] assists only prior to or following the activity. 4-Supervision or Touching Assistance-helper provides verbal cues and/or touching/steadying and/or contact guard assistance as patient completes activity. Assistance may be provided throughout the activity or intermittently. 3-Partial/Moderate Assistance-helper does LESS THAN HALF the effort. [place] lifts, holds or supports trunk or limbs, but provides less than half the effort. 2-Substantial/Maximal Assistance-helper does MORE THAN HALF the effort. [place] lifts or holds trunk or limbs and provides more than half the effort. 0-Rszmmfpqu-cirtng does ALL the effort. Patient does none of the effort to complete the activity. Or, the assistance of 2 or more helpers is required for the patient to complete the activity. If activity was not attempted, code reason: 7-Patient Refused. 9-Not Applicable-not attempted and the patient did not perform the activity before the current illness, exacerbation or injury. 10-Not Attempted due to Environmental Limitations-(lack of equipment, weather restraints, etc.). 88-Not Attempted due to Medical Conditions or Safety Concerns. Bed Mobility: 3 Transfers (B,C,W/C): 3 Gait: 3 Stairs: 9 Wheelchair Mobility: 2 Indoor Mobility (Ambulation): Needed Some Help Stairs: Not [place] Prior Devices Use: Manual wheelchair, Walker PT Evaluation-Current Subjective Patient in bed. Spouse present. Objective Patient Orientation: Confused Attachments: Wall Catheter ROM/Strength ROM Lower Extremities bilateral LE WFL ( noted rigidity due to Parkinson's) Strength Lower Extremities 3+/5 grossly bilateral LE (unable to formally test due to confusion) Integumentary/Posture Integumentary refer to nursing notes Bladder Incontinence: Wall Cath Posture WFL Neuromuscular (Tone, Coordination, Reflexes) Parkinson's tremors/gait sequence Sensory Vision: Functional Hearing: Functional Transfers Lying to Sitting/Side of Bed(Q: 3 Sit to Stand (QC): 3 Chair/Exh-ac-Hrgwk Xfer(QC): 3 Toilet Transfer (QC): 3 Gait Does the Patient Walk?: Yes Mode of Locomotion: Walk Anticipated Mode of Locomotion: Walk Walk 10 feet (QC): 3 Walk 50 ft with 2 Turns(QC): 3 Walk 150 ft (QC): 88 Distance: 75' Gait Assistive Device: FWW Comments/Gait Description shuffle gait sequence with FWW use Balance Sitting Static: Fair Sitting Dynamic: Fair Standing Static: Fair Standing Dynamic: Fair Assessment/Needs 75 y.o. male, will benefit from skilled PT to address functional strength and mobility to improve current LOF to safely return to home or care facility at maximum LOF. Rehab Potential: Guarded PT Snf Goals Snf Goals PT Reporter Goals Time Frame: Jan 28, 2021 Roll Left & Right (QC): 4 Sit to Lying (QC): 4 Lying-Sitting on Side/Bed(QC): 4 Sit to Stand (QC): 4 Chair/Pby-ac-Hjafz Xfer(QC): 4 Toilet Transfer (QC): 4 Walk 10 feet (QC): 4 Walk 50ft with 2 Turns (QC): 4 Walk 150 ft (QC): 4 CGA with all mobility PT Plan Problem List Problem List: Activity Tolerance, Functional Strength, Safety, Balance, Gait, Transfer, Bed Mobility Treatment/Plan Treatment Plan: Continue Plan of Care Treatment Plan: Bed Mobility, Education, Functional Activity Nilda, Functional Strength, Gait, Safety, Therapeutic Exercise, Transfers Treatment Duration: Jan 28, 2021 Frequency: 6 times per week Estimated Hrs Per Day: .25 hour per day Patient and/or Family Agrees t: Yes Time/GCodes Time In: 1052 Time Out: 1111 Total Billed Treatment Time: 19 [facility] LUC[facility]A HUSTON PT Jan 19, 2021 12:08
--- NOTE | 2021-01-19 17:04 | Progress Note-Pre Operative ---
Pre-Operative Progress Note H&P Reviewed The H&P was reviewed, patient examined and no changes noted. Date Seen by Provider: Jan 19, 2021 Time Seen by Provider: 17:00 Date H&P Reviewed: Jan 19, 2021 Time H&P Reviewed: 17:00 Pre-Operative Diagnosis: right LE DVT with recent subarachnoid hemorrhage KATHLEEN KLEIN MD Jan 19, 2021 17:04
--- NOTE | 2021-01-19 17:21 | CONSULTATION REPORT ---
DATE OF SERVICE: 01/19/2021 ATTENDING PRIMARY CARE PHYSICIAN: [facility] HISTORY OF PRESENT ILLNESS: The patient is a 75-year-old male, who presented to the ER with his two days ago with complaints of a declining health over the past 3 to 4 days with shortness of air, painful urination as well as reported fevers and chills and decreased mentation. His had reported that he had been weak and unable to get up. She did report him having a fall the day prior and having some pain, where he hit his left eye socket with bruising as well as swelling. While in the ER, he was having right lower extremity swelling and also had an increased white count of 16,000. He did undergo an ultrasound of the right lower extremity and was found to have a partially occlusive thrombus in the right common femoral vein. There was also an occlusive thrombus throughout the superficial femoral vein and popliteal vein as well as the calf veins. The greater saphenous vein was patent. His had also reported that in February of last year, he did have two brain bleeds last year after a fall and was at [facility] for the next couple of weeks and at that time, he was diagnosed with Parkinson's disease. He does have a history of dementia and was on blood thinners in the past for a stroke several years ago. PAST MEDICAL HISTORY: Dementia, stroke, brain bleed x2, hypertension, Parkinson's disease, hypercholesterolemia, type 2 diabetes, BPH, history of sepsis in 11/2020. Bradycardia degenerative joint disease, atrial fibrillation, renal calculi, chronic constipation, anxiety, and depression. PAST SURGICAL HISTORY: Pacemaker placement, right total knee replacement, removal of lipoma, and right shoulder surgery. ALLERGIES: SULFA. MEDICATIONS: Amiodarone 200 mg daily, amlodipine 10 mg daily, azithromycin 250 mg as directed, carbidopa/levodopa 25/100 mg b.i.d., cefdinir 300 mg b.i.d., clonazepam 0.5 mg daily as needed, enalapril 5 mg b.i.d., Lovenox 40 mg daily, lactulose 30 mL daily, Keppra 500 mg b.i.d., lovastatin 20 mg at bedtime, metformin 500 mg b.i.d., Myrbetriq 50 mg daily, mirtazapine 7.5 mg at bedtime, olanzapine 5 mg in the a.m. and 10 mg at bedtime, senna laxative 8.6 mg b.i.d., and Flomax 0.4 mg two tablets in the evening. SOCIAL HISTORY: Negative for smoke. Negative for alcohol. FAMILY HISTORY: Unknown due to adopted. REVIEW OF SYSTEMS: This is a well-nourished, elderly male in no acute distress. He is not experiencing any shortness of breath or difficulty breathing. No chest pain, palpitations or diaphoresis. No nausea, vomiting or abdominal pain. No diarrhea or constipation. No red blood per rectum. No dark tarry stools. No fever or chills. No recent inadvertent weight loss. All other review of systems is negative. PHYSICAL EXAMINATION: VITAL SIGNS: Temperature 36.6 degrees Celsius, pulse 68, respirations 20, blood pressure 144/86, and pulse ox 90% on room air. CHEST: Decreased breath sounds bilaterally as well as bilateral wheezing. HEART: Regular, no murmurs. EXTREMITIES: There is upper as well as lower extremity edema approximately 1 to 2+. There is a various bruising and hemosiderin staining on the lower extremities. HEENT: No scleral icterus. NECK: No cervical lymphadenopathy. ABDOMEN: Soft, nontender, and nondistended. SKIN: Warm and dry. NEUROLOGIC: Alert and oriented to person, but not to time or place. ASSESSMENT AND PLAN: A 75-year-old male with right lower extremity DVT, who is in need of an IVC filter. At this time, we will proceed with medical management with blood thinners and antibiotics. We will proceed with scheduling him for a venogram and placement of IVC filter tomorrow. Job ID: [id number] DocumentID: [id number] Dictated Date: 01/19/2021 16:42:52 [employer] Date: 01/19/2021 17:21:35 Dictated By: MARIFER MI APRN
[2021-01-19] MEDS: cefTRIAXone 1,000 MG/SWFI 10 ML IV PUSH IV SCH ×2 (17:41)
[2021-01-19] MEDS ORDERED: RT-ALBUTEROL/IPRATROPIUM 3 ML (DUONEB) VIAL INH PRN (18:30)
[2021-01-19] MEDS: SIMvastatin 10 MG (ZOCOR) TAB PO SCH (19:55)
[2021-01-19] MEDS: clonazePAM 0.5 MG (KlonoPIN) TAB PO SCH (19:56)
[2021-01-19] MEDS: MIRTAZAPINE 15 MG (REMERON) TAB PO SCH (19:56)
[2021-01-20] VITALS (8 sets, daily range): BP systolic 122–181; BP diastolic 68–84
[2021-01-20] MEDS: LACTATED RINGERS 1,000 ML IV SCH (03:04)
[2021-01-20 04:51] LABS: HEMATOCRIT 34 % (40-54); HEMOGLOBIN 10.4 g/dL (13.3-17.7); MEAN CORPUSCULAR HEMOGLOBIN 27 pg (25-34); MEAN CORPUSCULAR HGB CONC 31 g/dL (32-36); MEAN CORPUSCULAR VOLUME 88 fL (80-99); MEAN PLATELET VOLUME 10.9 fL (9.0-12.2); PLATELET COUNT 187 10^3/uL (130-400); WHITE BLOOD COUNT 8.7 10^3/uL (4.3-11.0)
[2021-01-20 05:02] LABS: POTASSIUM 3.8 MMOL/L (3.6-5.0)
[2021-01-20 05:03] LABS: CALCIUM 8.1 MG/DL (8.5-10.1)
[2021-01-20 05:07] LABS: CREATININE SERUM 0.87 MG/DL (0.60-1.30)
[2021-01-20] MEDS: MULTIVIT W/MINERALS TAB (THERAGRAN M) PO SCH (05:42)
[2021-01-20] MEDS: ENOXAPARIN 80 MG/0.8 ML (LOVENOX) SYR SC SCH ×2 (06:35→17:55)
[2021-01-20] MEDS: LACTULOSE SYRUP 10GM/15ML (ENULOSE) 30ML UDC PO SCH (09:11)
[2021-01-20] MEDS: AMIODARONE 200 MG (CORDARONE) TAB PO SCH (09:11)
[2021-01-20] MEDS: TAMSULOSIN 0.4 MG (FLOMAX) CAP PO SCH ×2 (09:11→20:31)
[2021-01-20] MEDS: SINEMET 25/100 (CARBIDOPA/LEVODOPA) TAB PO SCH ×2 (09:12→20:32)
[2021-01-20] MEDS: ENALAPRIL 5 MG (VASOTEC) TAB PO SCH ×2 (09:12→20:32)
[2021-01-20] MEDS: guaiFENesin (MUCINEX) 600 MG TAB PO SCH ×2 (09:12→20:31)
[2021-01-20] MEDS: OLANZapine 5 MG (ZyPREXA) TAB PO SCH ×2 (09:12→20:32)
--- NOTE | 2021-01-20 09:35 | Cardiology Progress Note ---
Subjective Date Seen by Provider: Jan 20, 2021 Time Seen by Provider: 14:04 Subjective/Events-last exam Pt has a wet, weak cough. He says he is doing fine otherwise. Denies any leg pain associated w/ the DVT Review of Systems General: No Chills, No Other (fever) HEENT: No Head Aches, No Visual Changes, No Eye Pain Pulmonary: Dyspnea, Cough Cardiovascular: No: Chest Pain, Palpitations, Lt Headedness Gastrointestinal: Constipation; No: Nausea, Vomiting, Abdominal Pain Musculoskeletal: No: arm pain, leg pain, foot pain Neurological: Other (tingling); No: Numbness Focused Exam Lactate Level Time of Focused Exam: 1448 Objective-Cardiology Exam Last Set of Vital Signs Vital Signs 01/19/21 01/20/21 01/20/21 01/20/21 01/20/21 18:12 08:21 11:20 11:40 11:50 Temp 37.0 Pulse 64 Resp 16 B/P (MAP) 130/78 (95) Pulse Ox 93 O2 Delivery Nasal Cannula O2 Flow Rate 3 FiO2 21 I&O Intake and Output 01/20/21 00:00 Intake Total 1520 ml Output Total 1850 ml Balance -330 ml Intake Oral 520 ml IV Total 1000 ml Output Urine Total 1850 ml # Bowel Movements 2 General: Alert, No Acute Distress HEENT: PERRLA, EOMI Neck: Supple, No JVD Lungs: Clear to Auscultation, Other (wet, weak cough ) Heart: Regular Rate, Normal S1, Normal S2, No Murmurs Abdomen: Normal Bowel Sounds, Soft, No Tenderness Extremities: No Cyanosis, Other (B/L pedal edema R>L. Pitting 2/4 on right, trace on left. No tenderness) Skin: No Rashes, No Significant Lesion Neuro: Other (tremor present) Psych/Mental Status: Mood NL Results Lab Laboratory Tests 01/20/21 04:25 A/P-Cardiology Admission Diagnosis DVT Coronary artery disease Atrial fibrillation Sinus node dysfunction Assessment/Plan Right DVT, venous doppler ultrasound on 01/17 showed partially occlusive thrombus in the right common femoral vein. There is occlusive thrombus throughout the superficial femoral vein and popliteal vein as well as the calf veins. Greater saphenous vein is patent. No fluid collection or mass is seen. Recommend IVC filter due prior history of intracranial hemorrhage. Patient had IVC filter deployed by Dr. Camacho on January 20, 2021. History of subdural and subarchnoid hemorrhage, Treated at February 2020 due to injury suffered from fall. Head and neck CT done on 01/17/21 showed no current evidence of intracranial hemorrhage. CAD, nonobstructive- most recent cardiac catheterization on July revealed 50-60 percent stenosis at the proximal and mid right coronary artery. FFR was at the lowest 0.89 after adenosine, nonobstructice disease. Had slight elevation in troponin, no EKG changes. Probably underlying progression of his coronary artery disease, conservative management is recommended, cannot tolerate long-term dual antiplatelet therapy. Sick sinus syndrome/permanent pacemaker, status post pacemaker generator replacement on November. Continue to monitor Paroxysmal atrial fibrillation, currently on amiodarone at home [id number] score of 6, yearly risk of stroke without oral anticoagulation is 9.8%. Patient is unable to tolerate oral anticoagulation due to the unsteady gait and multiple falls and intracranial bleed in February 2020. Maintained on amiodarone and maintained in ventricular paced rhythm Atypical pneumonia, currentlty taking ceftriaxone and azithromyocin. Managed by Dr. Gasca Hypertension, Continue to monitor BP and heart rate History of CVA, patient was on chronic coumadinization but has been discontinued due to prior brain bleeds. Mild nonobstructive carotid artery stenosis, continue to monitor Parkinson disease, unsteady gait. Managed by primary care team Depression, flat affect. Was hospitalized at inpatient psych earlier in 2020. Managed by primary care team Diabetes mellitus, followed and managed by primary care physician COPD/obstructive sleep apnea Supervisory-Addendum Brief Verification & Attestation Participated in pt care: history, MDM, physical Personally performed: exam, history, MDM, supervision of care Care discussed with: Medical Student Procedures: n/a Results interpretation: Verified all documentation Verification and Attestation of Medical Student E/M Service A medical student performed and documented this service in my presence. I review ed and verified all information documented by the medical student and made modifications to such information, when appropriate. I personally performed the physical exam and medical decision making. Yohana Fairbanks Jan 20, 2021,14:05 FARAZ MARR Jan 20, 2021 09:34 YOHANA FAIRBANKS MD Jan 20, 2021 14:05
[2021-01-20] MEDS ORDERED: LIDOCAINE/EPI 1%-1:100,000 (XYLOCAINE) 20ML ONE (09:56)
[2021-01-20] MEDS ORDERED: HEParin (CENTRAL IV FLUSH) 500 UNIT/5 ML SYR ONE (09:56)
--- NOTE | 2021-01-20 10:17 | Physical Therapy Daily Note ---
PT Daily Note-Current Subjective Patient and spouse agree to PT. Mental Status Patient Orientation: Confused Attachments: Wall Catheter, IV Transfers SCALE: Activities may be completed with or without assistive devices. 1-Ojmhhhajep-kdbvtzg completes the activity by him/herself with no assistance from a helper. 5-Set-up or Clean-up Assistance-helper sets up or cleans up; patient completes activity. [place] assists only prior to or following the activity. 4-Supervision or Touching Assistance-helper provides verbal cues and/or touching/steadying and/or contact guard assistance as patient completes activity. Assistance may be provided throughout the activity or intermittently. 3-Partial/Moderate Assistance-helper does LESS THAN HALF the effort. [place] l ifts, holds or supports trunk or limbs, but provides less than half the effort. 2-Substantial/Maximal Assistance-helper does MORE THAN HALF the effort. [place] lifts or holds trunk or limbs and provides more than half the effort. 4-Tcnruapfv-wbgicx does ALL the effort. Patient does none of the effort to complete the activity. Or, the assistance of 2 or more helpers is required for t he patient to complete the activity. If activity was not attempted, code reason: 7-Patient Refused. 9-Not Applicable-not attempted and the patient did not perform the activity before the current illness, exacerbation or injury. 10-Not Attempted due to Environmental Limitations-(lack of equipment, weather restraints, etc.). 88-Not Attempted due to Medical Conditions or Safety Concerns. Lying to Sitting/Side of Bed(Q: 2 Sit to Stand (QC): 2 Chair/Fyo-kz-Dvgyh Xfer(QC): 2 Toilet Transfer (QC): 2 Gait Training Does the Patient Walk?: Yes Distance: 150' Walk 10 feet (QC): 3 Walk 50 ft with 2 Turns(QC): 3 Walk 150 ft (QC): 3 Gait Assistive Device: FWW Parkinson's gait/shuffle with NBOS Assessment Patient up to commode after session with spouse present. Per spouse, patient to have procedure on this date. PT Halfway Goals 3D Modeler Goals PT Halfway Goals Time Frame: Jan 28, 2021 Roll Left & Right (QC): 4 Sit to Lying (QC): 4 Lying-Sitting on Side/Bed(QC): 4 Sit to Stand (QC): 4 Chair/Vtk-hg-Vllzt Xfer(QC): 4 Toilet Transfer (QC): 4 Walk 10 feet (QC): 4 Walk 50ft with 2 Turns (QC): 4 Walk 150 ft (QC): 4 PT Plan Treatment/Plan Treatment Plan: Continue Plan of Care Treatment Plan: Bed Mobility, Education, Functional Activity Nilda, Functional Strength, Gait, Safety, Therapeutic Exercise, Transfers Treatment Duration: Jan 28, 2021 Frequency: 6 times per week Estimated Hrs Per Day: .25 hour per day Patient and/or Family Agrees t: Yes Time/GCodes Time In: 942 Time Out: 954 Total Billed Treatment Time: 12 Total Billed Treatment 1 visit GT 12 min LUCÍA HUSTON PT Jan 20, 2021 10:17
[2021-01-20] MEDS ORDERED: PROPOFOL INJECTION 50 ML IV ONE (10:42)
[2021-01-20] MEDS ORDERED: ceFAZolin INJECTION 2,000 MG ONE (10:49)
--- NOTE | 2021-01-20 11:17 | Progress Note-Post Operative ---
Post-Operative Progess Note Surgeon (s)/Kettle Tender (s) Surgeon KATHLEEN KLEIN MD Kettle Tender: none Pre-Operative Diagnosis right LE DVT with recent subarachnoid hemorrhage Post-Operative Diagnosis same Procedure & Operative Findings Date of Procedure 01/20/21 Procedure Performed/Findings venogram and IVC filter placement under flouroscopy. Anesthesia Type mac Estimated Blood Loss Estimated blood loss (mL): minimal Specimens/Packing Specimens Removed none KATHLEEN KLEIN MD Jan 20, 2021 11:17
--- NOTE | 2021-01-20 11:25 | Anesthesia-General Post-Op ---
MAC Patient Condition Mental Status/LOC: Same as Preop Cardiovascular: Satisfactory Nausea/Vomiting: Absent Respiratory: Satisfactory Pain: Controlled Complications: Absent Post Op Complications Complications None Follow Up Care/Instructions Patient Instructions None needed. Anesthesiology Discharge Order Discharge Order Patient is doing well, no complaints, stable vital signs, no apparent adverse anesthesia problems. No complications reported per nursing. PARESH VIVAS CRNA Jan 20, 2021 11:25
[2021-01-20] MEDS ORDERED: morphine INJ 10 MG/ML 1ML (SYR OR VIAL) IVP ONE (11:30)
--- NOTE | 2021-01-20 11:31 | Diagnostic Imaging Report ---
INDICATION: Fluoroscopy for IVC filter placement. Fluoroscopy was provided in the OR for Dr. Camacho for performance of an IVC filter placement. 1 minute 49 seconds of fluoroscopic time was utilized. A single image was obtained. IMPRESSION: Fluoroscopy for IVC filter placement. Dictated by: Dictated on workstation # [id number]
--- NOTE | 2021-01-20 14:03 | Progress Note ---
Subjective Subjective/Events-last exam Sleeping in bed, mouth open and jaw slack, sonorous breathing, but wakes up and answers questions when asked, states he is okay and says no in response to questions about any concerns. Focused Exam Time of Focused Exam: 1448 Objective Exam Last Set of Vital Signs Vital Signs Date Time Temp Pulse Resp B/P (MAP) Pulse Ox O2 Delivery O2 Flow Rate FiO2 01/20/21 11:50 Nasal Cannula 3 01/20/21 11:40 16 130/78 (95) 93 01/20/21 11:20 37.0 01/20/21 08:21 64 01/19/21 18:12 21 Capillary Refill : Less Than 3 Seconds I&O Intake and Output 01/20/21 00:00 Intake Total 1520 ml Output Total 1850 ml Balance -330 ml Intake Oral 520 ml IV Total 1000 ml Output Urine Total 1850 ml # Bowel Movements 2 General: No Acute Distress Lungs: Clear to Auscultation, Normal Air Movement Abdomen: Normal Bowel Sounds, Soft Extremities: Other (right leg with tight edema, bilateral lower legs wtih hemosiderin staining) Neuro: Other (oriented to self only) Results/Procedures Lab Laboratory Tests 01/20/21 04:25: White Blood Count 8.7, Red Blood Count 3.86L, Hemoglobin 10.4L, Hematocrit 34L, Mean Corpuscular Volume 88, Mean Corpuscular Hemoglobin 27, Mean Corpuscular Hemoglobin Concent 31L, Red Cell Distribution Width 15.0H, Platelet Count 187, Mean Platelet Volume 10.9, Sodium Level 139, Potassium Level 3.8, Chloride Level 105, Carbon Dioxide Level 26, Anion Gap 8, Blood Urea Nitrogen 10, Creatinine 0.87, Estimat Glomerular Filtration Rate 86, BUN/Creatinine Ratio 11, Glucose Level 93, Calcium Level 8.1L Microbiology 01/17/21 Urine Culture - Final, Complete NO GROWTH 01/17/21 Blood Culture - Preliminary, Resulted No growth Radiology CXR 01/17: IMPRESSION: Mild cardiomegaly. Poor inspiration with mild bibasilar atelectasis. No pneumothorax or pleural fluid. CXR 01/18: IMPRESSION: 1. Small left basilar effusion now present. 2. Developing right perihilar infiltrate and/or atelectasis. CT head/face 01/17: IMPRESSION: 1: There is no evidence of intracranial hemorrhage or skull fracture. 2: There is interval development of a small amount of extracranial soft tissue swelling in the left periorbital region. There is no skull or maxillofacial fracture. The orbits and globes are intact. 3: Cervical spine degenerative disease with no acute fracture or dislocation, as visualized. Venous doppler US 01/17: IMPRESSION: Extensive right lower extremity DVT. Assessment/Plan Assessment/Plan (1) Atypical pneumonia Status: Acute Assessment & Plan: Requiring supplemental oxygen. Started on azithromycin outpatient but continued to worsen, add ceftriaxone. 01/19 appears to be improving, tolerating room air 01/20 back on 2 lpm today, has been using on and off (2) Dvt femoral (deep venous thrombosis) Status: Acute Assessment & Plan: Discussed with , concern with starting full dose anticoagulation given he already had to stop anticoagulation last year due to history of falls and subarachnoid hemorrhage. For now, while they are weighing goals and risks, will start anticoagulation. 01/[address] Camacho to discuss IVC filter. 01/20 IVC filter placed Qualifiers: Qualified Codes: I82.411 - Acute embolism and thrombosis of right femoral vein (3) History of subarachnoid hemorrhage Status: Chronic (4) Acute kidney injury Status: Resolved Assessment & Plan: monitor. (5) Hypertension Status: Chronic Qualifiers: Qualified Codes: I10 - Essential (primary) hypertension (6) Type II diabetes mellitus with complication Status: Chronic (7) Pacemaker Status: Chronic Permanent Comment: placed in 2007 secondary to sick sinus syndrome; generator change 2015 Last Edited By: Olena Toussaint on Nov 04, 2017 20:37 (8) Major depression, recurrent Status: Chronic (9) Dyslipidemia Status: Chronic (10) History of stroke Status: Chronic (11) CAD (coronary artery disease), [place] coronary artery Status: Chronic Permanent Comment: Cardiac Cath 2016 50-60% distal LAD stenosis 50-60% stenosis at proximal and mid RCA 50% circumflex stenosis followed by aneurysmal dilation EF 60% Elevated left end diastolic pressure Last Edited By: Olena Toussaint on Nov 04, 2017 20:39 Assessment & Plan: Troponin detectable on admit, repeat decreased, suspect re lated to pneumonia/respiratory issues, type II ID, Cardiology consulted, appreciate recommendations. (12) Dementia Status: Chronic Assessment & Plan: reports at baseline he knows who she is and family members, but otherwise is mostly confused. Qualifiers: Qualified Codes: G20 - Parkinson's disease; F02.80 - Dementia in other diseases classified elsewhere without behavioral disturbance (13) Parkinson's disease Status: Chronic (14) Recurrent falls Status: Chronic (15) Physical debility Status: Acute (16) Goals of care, counseling/discussion Status: Acute Assessment & Plan: Discussed the difficulty of current situation for decision making with the need for anticoagulation but marked risks of anticoagulation, with his recent declining condition, prison stay and now readmission shortly after, as well as it sounds like some failure to thrive with marked weight loss over the last year and underlying dementia and Parkinson disease, may be appropriate to consider hospice, she is going to discuss further with family and for now we will treat as we are for pneumonia and DVT. 01/20 IVC placed, anticipate d/c when able to function at baseline for home RASTA ROSALES MD Jan 20, 2021 14:03
--- NOTE | 2021-01-20 15:13 | OPERATIVE REPORT ---
DATE OF SERVICE: 01/20/2021 ATTENDING PRIMARY CATALYTIC CONVERTER OPERATOR: Ronn Arreguin. PREOPERATIVE DIAGNOSIS: Right lower extremity deep vein thrombosis with recent history of a subarachnoid hemorrhage and frequent falls. POSTOPERATIVE DIAGNOSES: Right lower extremity deep vein thrombosis with recent history of a subarachnoid hemorrhage and frequent falls. PROCEDURE: Venogram placement, inferior vena cava filter. SURGEON: Kathleen Klein MD. ANESTHESIA: Monitored anesthesia care. ESTIMATED BLOOD LOSS: Minimal. FINDINGS: A takeoff of the renal veins at approximately L1 level. Inferior vena caval diameter approximately 15 mm. DISPOSITION: The patient tolerated the procedure well. INDICATIONS: The patient is a 75-year-old male who presented to the Emergency Department with complaints of shortness of breath, weakness and declining health. He has been weak and unable to ambulate. He has also had multiple falls recently. He did have a fall and did have two subarachnoid hemorrhages and was admitted to [facility] for approximately two weeks and was also diagnosed with Parkinson's disease. He also does have a history of dementia. The patient did develop pain and swelling along the right lower extremity and an ultrasound was performed, which was consistent with a significant deep vein thrombosis. DESCRIPTION OF PROCEDURE: The patient was brought to the operating room, laid supine on the table. After adequate IV pain and sedative medications and monitored anesthesia care, the groin and abdomen were prepped and draped in standard surgical fashion. A 1% lidocaine with epinephrine was used to anesthetize the overlying skin in the left groin. The left femoral vein was then cannulated withdrawing of venous blood. The guidewire was then inserted under fluoroscopy. A small skin incision was made using 11 blade and the dilator and sheath were then introduced. The dilator was then removed and we then proceeded with venogram after marking T12 as well as a lumbar vertebrae below. The diameter of the IVC was approximately 15 mm in the takeoff of the renal veins at approximately between L1 and T12. The Trap[employer] inferior vena caval filter was then placed under direct visualization using fluoroscopy between L2 and L3. The sheath was then removed, and gentle pressure applied with visualization of good hemostasis. The entry spot was then covered with a pressure dressing. The patient tolerated the procedure well. They may restart Lovenox and continue to monitor his right lower extremity. Job ID: [id number] DocumentID: [id number] Dictated Date: 01/20/2021 11:23:31 Fraud Analyst Date: 01/20/2021 15:12:55 Dictated By: KATHLEEN KLEIN MD MTDD
[2021-01-20] MEDS: cefTRIAXone 1,000 MG/SWFI 10 ML IV PUSH IV SCH ×2 (16:59)
[2021-01-20] MEDS: clonazePAM 0.5 MG (KlonoPIN) TAB PO SCH (20:31)
[2021-01-20] MEDS: SIMvastatin 10 MG (ZOCOR) TAB PO SCH (20:31)
[2021-01-20] MEDS: MIRTAZAPINE 15 MG (REMERON) TAB PO SCH (20:32)
[2021-01-21] VITALS (7 sets, daily range): BP systolic 144–177; BP diastolic 65–85
[2021-01-21] MEDS: ENOXAPARIN 80 MG/0.8 ML (LOVENOX) SYR SC SCH ×2 (05:24→16:59)
[2021-01-21] MEDS: MULTIVIT W/MINERALS TAB (THERAGRAN M) PO SCH (05:24)
[2021-01-21] MEDS: LACTATED RINGERS 1,000 ML IV SCH ×2 (05:25→18:47)
[2021-01-21 07:20] LABS: HEMATOCRIT 35 % (40-54); HEMOGLOBIN 10.7 g/dL (13.3-17.7); MEAN CORPUSCULAR HEMOGLOBIN 27 pg (25-34); MEAN CORPUSCULAR HGB CONC 31 g/dL (32-36); MEAN CORPUSCULAR VOLUME 90 fL (80-99); MEAN PLATELET VOLUME 10.6 fL (9.0-12.2); PLATELET COUNT 178 10^3/uL (130-400); WHITE BLOOD COUNT 9.1 10^3/uL (4.3-11.0)
[2021-01-21 07:34] LABS: POTASSIUM 3.6 MMOL/L (3.6-5.0)
[2021-01-21 07:35] LABS: CALCIUM 8.3 MG/DL (8.5-10.1)
[2021-01-21 07:39] LABS: CREATININE SERUM 0.84 MG/DL (0.60-1.30)
--- NOTE | 2021-01-21 08:19 | Progress Note - Hospitalist ---
Subjective HPI/CC On Admission Date Seen by Provider: Jan 21, 2021 Time Seen by Provider: 07:30 Subjective/Events-last exam Patient oriented to person only was sleeping but arouses easily voices no complaints promptly falls back asleep. Focused Exam Time of Focused Exam: 1448 Objective Exam Vital Signs Vital Signs Date Time Temp Pulse Resp B/P (MAP) Pulse Ox O2 Delivery O2 Flow Rate FiO2 01/21/21 08:05 36.2 60 20 148/83 (104) 97 Nasal Cannula 2.00 01/19/21 18:12 21 Capillary Refill : Less Than 3 Seconds General Appearance: No Apparent Distress, Chronically ill Cardiovascular: Regular Rate, Rhythm, No Murmur Extremity: Other (2+ edema left lower extremity 3+ right lower extremity to the level of the tibia with chronic venous insufficiency change in tissue paper thin skin no ulcerations noted. Extremities warm) Results/Procedures Lab Laboratory Tests 01/21/21 07:08 Patient resulted labs reviewed. Assessment/Plan Assessment and Plan Assess & Plan/Chief Complaint Right DVT, venous doppler ultrasound on 01/17 showed partially occlusive thrombus in the right common femoral vein. There is occlusive thrombus throughout the superficial femoral vein and popliteal vein as well as the calf veins. Greater saphenous vein is patent. No fluid collection or mass is seen. Recommend IVC filter due prior history of intracranial hemorrhage. Patient had IVC filter deployed by Dr. Camacho on January 20, 2021. 01/21/2021 patient is not a candidate for IV anticoagulation due to frequent falls 1 resulting in a subarachnoid hemorrhage earlier this year with likely underlying dementia related to reported Parkinson's disease. Considering the patient has permanent pacemaker placement will DC telemetry. There is no evidence for phlegmasia cerulea dolens at this point but he clearly will be at risk for this going forward continue elevation. History of subdural and subarchnoid hemorrhage, Treated at February 2020 due to injury suffered from fall. Head and neck CT done on 01/17/21 showed no current evidence of intracranial hemorrhage. CAD, nonobstructive- most recent cardiac catheterization on July revealed 50-60 percent stenosis at the proximal and mid right coronary artery. FFR was at the lowest 0.89 after adenosine, nonobstructice disease. Had slight elevation in troponin, no EKG changes. Probably underlying progression of his coronary artery disease, conservative management is recommended, cannot tolerate long-term dual antiplatelet therapy. Sick sinus syndrome/permanent pacemaker, status post pacemaker generator replacement on November. Continue to monitor Paroxysmal atrial fibrillation, currently on amiodarone at home [id number] score of 6, yearly risk of stroke without oral anticoagulation is 9.8%. Patient is unable to tolerate oral anticoagulation due to the unsteady gait and multiple falls and intracranial bleed in February 2020. Maintained on amiodarone and maintained in ventricular paced rhythm Atypical pneumonia, currentlty taking ceftriaxone and azithromyocin. Managed by Dr. Gasca Hypertension, Continue to monitor BP and heart rate History of CVA, patient was on chronic coumadinization but has been discontinued due to prior brain bleeds. Mild nonobstructive carotid artery stenosis, continue to monitor Parkinson disease, unsteady gait. Managed by primary care team Depression, flat affect. Was hospitalized at inpatient psych earlier in 2020. Managed by primary care team Diabetes mellitus, followed and managed by primary care physician COPD/obstructive sleep apnea TAM YATES MD Jan 21, 2021 08:19
--- NOTE | 2021-01-21 10:32 | Physical Therapy Progress Note ---
Therapy Progress Note Patient refused PT treatment today. He reports he just doesn't feel like doing anything today. Patient educated on the importance of activity for healing, and he reports understanding, but still refuses. Will attempt again next PT session to progress patient per his tolerance. BLESSING STONE PT Jan 21, 2021 10:32
--- NOTE | 2021-01-21 11:47 | Cardiology Progress Note ---
Subjective Date Seen by Provider: Jan 21, 2021 Time Seen by Provider: 11:46 Subjective/Events-last exam Patient was seen at bedside, laying down comfortably, no new complaint. More awake today, responding appropriately Review of Systems General: No Chills, No Night Sweats; Fatigue, Malaise; No Appetite, No Other HEENT: No Head Aches, No Visual Changes, No Eye Pain, No Ear Pain, No Dysphasia, No Sinus Congestion, No Post Nasal Drip, No Sore Throat, No Other Pulmonary: No Dyspnea, No Cough, No Pleuritic Chest Pain, No Other Cardiovascular: No: Chest Pain, Palpitations, Orthopnea, Paroxysmal Noc. Dyspnea, Edema, Lt Headedness, Other Focused Exam Time of Focused Exam: 1448 Objective-Cardiology Exam Last Set of Vital Signs Vital Signs 01/19/21 01/21/21 01/21/21 18:12 08:05 11:14 Temp 36.2 Pulse 60 Resp 20 B/P (MAP) 148/83 (104) Pulse Ox 97 O2 Delivery Nasal Cannula O2 Flow Rate 2.00 FiO2 21 I&O Intake and Output 01/21/21 00:00 Intake Total 3240 ml Output Total 2300 ml Balance 940 ml Intake Oral 240 ml IV Total 3000 ml Output Urine Total 2300 ml General: Alert, Cooperative, No Acute Distress HEENT: PERRLA, EOMI Neck: Supple, No JVD Lungs: Clear to Auscultation, Normal Air Movement Heart: Regular Rate, Normal S1, Normal S2, No Murmurs Abdomen: Normal Bowel Sounds, Soft Extremities: Other (right leg with tight edema, bilateral lower legs wtih he mosiderin staining) Skin: No Rashes, No Significant Lesion Neuro: Other (oriented to self only) Psych/Mental Status: Mood NL Results Lab Laboratory Tests 01/21/21 07:08 A/P-Cardiology Admission Diagnosis DVT Coronary artery disease Atrial fibrillation Sinus node dysfunction Assessment/Plan Right DVT, venous doppler ultrasound on 01/17 showed partially occlusive thrombus in the right common femoral vein. There is occlusive thrombus throughout the superficial femoral vein and popliteal vein as well as the calf veins. Greater saphenous vein is patent. No fluid collection or mass is seen. Recommend IVC filter due prior history of intracranial hemorrhage. Patient had IVC filter deployed by Dr. Camacho on January 20, 2021. History of subdural and subarchnoid hemorrhage, Treated at February 2020 due to injury suffered from fall. Head and neck CT done on 01/17/21 showed no current evidence of intracranial hemorrhage. CAD, nonobstructive- most recent cardiac catheterization on July revealed 50-60 percent stenosis at the proximal and mid right coronary artery. FFR was at the lowest 0.89 after adenosine, nonobstructice disease. Had slight elevation in troponin, no EKG changes. Probably underlying progression of his coronary artery disease, conservative management is recommended, cannot tolerate long-term dual antiplatelet therapy. Sick sinus syndrome/permanent pacemaker, status post pacemaker generator replacement on November. Continue to monitor Paroxysmal atrial fibrillation, currently on amiodarone at home [id number] score of 6, yearly risk of stroke without oral anticoagulation is 9.8%. Patient is unable to tolerate oral anticoagulation due to the unsteady gait and multiple falls and intracranial bleed in February 2020. Maintained on amiodarone and maintained in ventricular paced rhythm Atypical pneumonia, currentlty taking ceftriaxone and azithromyocin. Managed by Dr. Gasca Hypertension, Continue to monitor BP and heart rate History of CVA, patient was on chronic coumadinization but has been discontinued due to prior brain bleeds. Mild nonobstructive carotid artery stenosis, continue to monitor Parkinson disease, unsteady gait. Managed by primary care team Depression, flat affect. Was hospitalized at inpatient psych earlier in 2020. Managed by primary care team Diabetes mellitus, followed and managed by primary care physician COPD/obstructive sleep apnea YOHANA SCHMIDT MD Jan 21, 2021 11:47
[2021-01-21] MEDS: guaiFENesin (MUCINEX) 600 MG TAB PO SCH ×2 (11:56→21:16)
[2021-01-21] MEDS: TAMSULOSIN 0.4 MG (FLOMAX) CAP PO SCH ×2 (11:56→21:18)
[2021-01-21] MEDS: ENALAPRIL 5 MG (VASOTEC) TAB PO SCH ×2 (11:56→21:16)
[2021-01-21] MEDS: LACTULOSE SYRUP 10GM/15ML (ENULOSE) 30ML UDC PO SCH (11:56)
[2021-01-21] MEDS: AMIODARONE 200 MG (CORDARONE) TAB PO SCH (11:56)
[2021-01-21] MEDS: OLANZapine 5 MG (ZyPREXA) TAB PO SCH ×2 (11:56→21:16)
[2021-01-21] MEDS: SINEMET 25/100 (CARBIDOPA/LEVODOPA) TAB PO SCH ×2 (11:56→21:16)
[2021-01-21] MEDS: cefTRIAXone 1,000 MG/SWFI 10 ML IV PUSH IV SCH ×2 (16:59)
[2021-01-21] MEDS: SIMvastatin 10 MG (ZOCOR) TAB PO SCH (21:16)
[2021-01-21] MEDS: clonazePAM 0.5 MG (KlonoPIN) TAB PO SCH (21:16)
[2021-01-21] MEDS: MIRTAZAPINE 15 MG (REMERON) TAB PO SCH (21:16)
[2021-01-22 04:12] VITALS: BP 161/96
[2021-01-22] MEDS: ENOXAPARIN 80 MG/0.8 ML (LOVENOX) SYR SC SCH ×2 (05:31→16:28)
[2021-01-22] MEDS: MULTIVIT W/MINERALS TAB (THERAGRAN M) PO SCH (05:31)
[2021-01-22] MEDS: LACTATED RINGERS 1,000 ML IV SCH (05:32)
[2021-01-22 07:33] VITALS: BP 152/83
[2021-01-22] MEDS: ENALAPRIL 5 MG (VASOTEC) TAB PO SCH ×2 (09:00→20:49)
[2021-01-22] MEDS: amLODIPine 5 MG (NORVASC) TAB PO SCH (09:00)
[2021-01-22] MEDS: OLANZapine 5 MG (ZyPREXA) TAB PO SCH ×2 (09:00→20:51)
[2021-01-22] MEDS: TAMSULOSIN 0.4 MG (FLOMAX) CAP PO SCH ×2 (09:00→20:50)
[2021-01-22] MEDS: SINEMET 25/100 (CARBIDOPA/LEVODOPA) TAB PO SCH ×2 (09:00→20:50)
[2021-01-22] MEDS: LACTULOSE SYRUP 10GM/15ML (ENULOSE) 30ML UDC PO SCH (09:00)
[2021-01-22] MEDS: AMIODARONE 200 MG (CORDARONE) TAB PO SCH (09:00)
[2021-01-22] MEDS: guaiFENesin (MUCINEX) 600 MG TAB PO SCH ×2 (09:01→20:50)
--- NOTE | 2021-01-22 10:25 | Cardiology Progress Note ---
Subjective Date Seen by Provider: Jan 22, 2021 Time Seen by Provider: 10:23 Subjective/Events-last exam Patient is laying down in bed, lethargic. No new complaint. No chest pain. Review of Systems General: No Chills, No Night Sweats; Fatigue, Malaise; No Appetite, No Other HEENT: No Head Aches, No Visual Changes, No Eye Pain, No Ear Pain, No Dysphasia, No Sinus Congestion, No Post Nasal Drip, No Sore Throat, No Other Pulmonary: Dyspnea; No Cough, No Pleuritic Chest Pain, No Other Cardiovascular: No: Chest Pain, Palpitations, Orthopnea, Paroxysmal Noc. Dyspnea, Edema, Lt Headedness, Other Focused Exam Time of Focused Exam: 1448 Objective-Cardiology Exam Last Set of Vital Signs Vital Signs 01/19/21 01/22/21 01/22/21 18:12 07:33 08:00 Temp 36.8 Pulse 61 Resp 28 B/P (MAP) 152/83 (106) Pulse Ox 93 O2 Delivery Nasal Cannula O2 Flow Rate 2.00 FiO2 21 I&O Intake and Output 01/22/21 00:00 Intake Total 1400 ml Output Total 945 ml Balance 455 ml Intake Oral 400 ml IV Total 1000 ml Output Urine Total 945 ml # Voids 1 General: Alert, Cooperative, No Acute Distress HEENT: PERRLA, EOMI Neck: Supple, No JVD Lungs: Clear to Auscultation, Normal Air Movement Heart: Regular Rate, Normal S1, Normal S2, No Murmurs Abdomen: Normal Bowel Sounds, Soft Extremities: Other (right leg with tight edema, bilateral lower legs wtih hemosiderin staining) Skin: No Rashes, No Significant Lesion Neuro: Other (oriented to self only) Psych/Mental Status: Mood NL A/P-Cardiology Admission Diagnosis DVT Coronary artery disease Atrial fibrillation Sinus node dysfunction Assessment/Plan Right DVT, venous doppler ultrasound on 01/17 showed partially occlusive thrombus in the right common femoral vein. There is occlusive thrombus throughout the superficial femoral vein and popliteal vein as well as the calf veins. Greater saphenous vein is patent. No fluid collection or mass is seen. Recommend IVC filter due prior history of intracranial hemorrhage. Patient had IVC filter deployed by Dr. Camacho on January 20, 2021. History of subdural and subarchnoid hemorrhage, Treated at February 2020 due to injury suffered from fall. Head and neck CT done on 01/17/21 showed no current evidence of intracranial hemorrhage. CAD, nonobstructive- most recent cardiac catheterization on July revealed 50-60 percent stenosis at the proximal and mid right coronary artery. FFR was at the lowest 0.89 after adenosine, nonobstructice disease. Had slight elevation in troponin, no EKG changes. Probably underlying progression of his coronary artery disease, conservative management is recommended, cannot tolerate long-term dual antiplatelet therapy. Sick sinus syndrome/permanent pacemaker, status post pacemaker generator replacement on November. Continue to monitor Paroxysmal atrial fibrillation, currently on amiodarone at home [id number] score of 6, yearly risk of stroke without oral anticoagulation is 9.8%. Patient is unable to tolerate oral anticoagulation due to the unsteady gait and multiple falls and intracranial bleed in February 2020. Maintained on amiodarone and maintained in ventricular paced rhythm Atypical pneumonia, currentlty taking ceftriaxone and azithromyocin. Managed by Dr. Gasca Hypertension, Continue to monitor BP and heart rate History of CVA, patient was on chronic coumadinization but has been discontinued due to prior brain bleeds. Mild nonobstructive carotid artery stenosis, continue to monitor Parkinson disease, unsteady gait. Managed by primary care team Depression, flat affect. Was hospitalized at inpatient psych earlier in 2020. Managed by primary care team Diabetes mellitus, followed and managed by primary care physician COPD/obstructive sleep apnea YOHANA SCHMIDT MD Jan 22, 2021 10:25
--- NOTE | 2021-01-22 10:56 | Progress Note - Hospitalist ---
Subjective HPI/CC On Admission Date Seen by Provider: Jan 22, 2021 Time Seen by Provider: 09:15 Subjective/Events-last exam Patient complaining that he needed to urinate he has a Wall in it is draining normally urine is slightly yellow but clear. He has audible diffuse rhonchi with weak cough oriented to person only unchanged from yesterday in regards to orientation but more chest congestion today. Afebrile poor appetite unchanged no other changes noted per staff. Focused Exam Time of Focused Exam: 1448 Objective Exam Vital Signs Vital Signs Date Time Temp Pulse Resp B/P (MAP) Pulse Ox O2 Delivery O2 Flow Rate FiO2 01/22/21 08:00 Nasal Cannula 2.00 01/22/21 07:33 36.8 61 28 152/83 (106) 93 01/19/21 18:12 21 Capillary Refill : Less Than 3 Seconds General Appearance: Chronically ill, Mild Distress Respiratory: No Accessory Muscle Use, No Respiratory Distress, Other (Diffuse rhonchi no wheezing respiratory rate 20) Cardiovascular: Regular Rate, Rhythm, No Murmur Results/Procedures Lab Patient resulted labs reviewed. Assessment/Plan Assessment and Plan Assess & Plan/Chief Complaint Right DVT, venous doppler ultrasound on 01/17 showed partially occlusive thrombus in the right common femoral vein. There is occlusive thrombus throughout the superficial femoral vein and popliteal vein as well as the calf veins. Greater saphenous vein is patent. No fluid collection or mass is seen. Recommend IVC filter due prior history of intracranial hemorrhage. Patient had IVC filter deployed by Dr. Camacho on January 20, 2021. 01/21/2021 patient is not a candidate for IV anticoagulation due to frequent falls 1 resulting in a subarachnoid hemorrhage earlier this year with likely underlying dementia related to reported Parkinson's disease. Considering the patient has permanent pacemaker placement will DC telemetry. There is no evidence for phlegmasia cerulea dolens at this point but he clearly will be at risk for this going forward continue elevation. History of subdural and subarchnoid hemorrhage, Treated at February 2020 due to injury suffered from fall. Head and neck CT done on 01/17/21 showed no current evidence of intracranial hemorrhage. 01/22: Increasing chest congestion cannot rule out the possibility of aspiration in a frail elderly white male with Parkinson's and dementia prognosis extremely poor. reportedly wanted to bring him home with home care but I suspect his care needs are going to be too great for this will need to have social services coordinator rediscuss nursing home placement if the patient survives this hospital stay. CAD, nonobstructive- most recent cardiac catheterization on July revealed 50-60 percent stenosis at the proximal and mid right coronary artery. FFR was at the lowest 0.89 after adenosine, nonobstructice disease. Had slight elevation in troponin, no EKG changes. Probably underlying progression of his coronary artery disease, conservative management is recommended, cannot tolerate long-term dual antiplatelet therapy. Sick sinus syndrome/permanent pacemaker, status post pacemaker generator replacement on November. Continue to monitor Paroxysmal atrial fibrillation, currently on amiodarone at home [id number] score of 6, yearly risk of stroke without oral anticoagulation is 9.8%. Patient is unable to tolerate oral anticoagulation due to the unsteady gait and multiple falls and intracranial bleed in February 2020. Maintained on amiodarone and maintained in ventricular paced rhythm Atypical pneumonia, currentlty taking ceftriaxone and azithromyocin. Managed by Dr. Gasca Hypertension, Continue to monitor BP and heart rate History of CVA, patient was on chronic coumadinization but has been discontinued due to prior brain bleeds. Mild nonobstructive carotid artery stenosis, continue to monitor Parkinson disease, unsteady gait. Managed by primary care team Depression, flat affect. Was hospitalized at inpatient psych earlier in 2020. Managed by primary care team Diabetes mellitus, followed and managed by primary care physician COPD/obstructive sleep apnea Critical Care Critically Ill Patient TAM YATES MD Jan 22, 2021 10:56
[2021-01-22 11:46] LABS: BASOPHILS % (AUTO) 0 % (0-10); EOSINOPHILS # (AUTO) 0.1 10^3/uL (0.0-0.3); EOSINOPHILS % (AUTO) 1 % (0-10); HEMATOCRIT 36 % (40-54); HEMOGLOBIN 10.9 g/dL (13.3-17.7); LYMPHOCYTES # (AUTO) 1.8 10^3/uL (1.0-4.0); LYMPHOCYTES % (AUTO) 19 % (12-44); MEAN CORPUSCULAR HEMOGLOBIN 27 pg (25-34); MEAN CORPUSCULAR HGB CONC 30 g/dL (32-36); MEAN CORPUSCULAR VOLUME 91 fL (80-99); MEAN PLATELET VOLUME 10.7 fL (9.0-12.2); MONOCYTES # (AUTO) 0.6 10^3/uL (0.0-1.0); MONOCYTES % (AUTO) 6 % (0-12); NEUTROPHILS # (AUTO) 7.1 10^3/uL (1.8-7.8); NEUTROPHILS % (AUTO) 74 % (42-75); PLATELET COUNT 180 10^3/uL (130-400); WHITE BLOOD COUNT 9.6 10^3/uL (4.3-11.0)
[2021-01-22 11:51] LABS: POTASSIUM 3.4 MMOL/L (3.6-5.0)
[2021-01-22 11:52] LABS: CALCIUM 8.2 MG/DL (8.5-10.1)
[2021-01-22 11:57] LABS: CREATININE SERUM 0.93 MG/DL (0.60-1.30)
[2021-01-22 12:22] VITALS: BP 142/68
[2021-01-22 16:00] VITALS: BP 126/70
[2021-01-22 20:00] VITALS: BP 169/72
[2021-01-22] MEDS: SIMvastatin 10 MG (ZOCOR) TAB PO SCH (20:49)
[2021-01-22] MEDS: clonazePAM 0.5 MG (KlonoPIN) TAB PO SCH (20:49)
[2021-01-22] MEDS: MIRTAZAPINE 15 MG (REMERON) TAB PO SCH (20:51)
[2021-01-23] VITALS (7 sets, daily range): BP systolic 130–170; BP diastolic 70–89
[2021-01-23] MEDS: MULTIVIT W/MINERALS TAB (THERAGRAN M) PO SCH (05:46)
[2021-01-23] MEDS: ENOXAPARIN 80 MG/0.8 ML (LOVENOX) SYR SC SCH (05:46)
--- NOTE | 2021-01-23 08:00 | Cardiology Progress Note ---
Subjective Date Seen by Provider: Jan 23, 2021 Time Seen by Provider: 10:55 Subjective/Events-last exam Pt reports that he currently has no problems. Denied any cough or SOB. Review of Systems General: No Chills, No Other (fever) HEENT: No Head Aches, No Visual Changes Pulmonary: No Dyspnea, No Cough Cardiovascular: No: Chest Pain, Palpitations, Lt Headedness Gastrointestinal: No: Nausea, Vomiting, Abdominal Pain Genitourinary: No Dysuria Neurological: No: Weakness, Numbness Focused Exam Time of Focused Exam: 1448 Objective-Cardiology Exam Last Set of Vital Signs Vital Signs 01/19/21 18:12 FiO2 21 I&O Intake and Output 01/23/21 00:00 Intake Total 900 ml Output Total 1000 ml Balance -100 ml Intake Oral 650 ml IV Total 250 ml Output Urine Total 1000 ml General: Alert, Cooperative, No Acute Distress HEENT: PERRLA, EOMI Neck: Supple, No JVD Lungs: Clear to Auscultation, Normal Air Movement Heart: Regular Rate, Normal S1, Normal S2, No Murmurs Abdomen: Soft, No Tenderness Extremities: Other (right leg with 1-2/4 pitting edema, bilateral lower legs wtih hemosiderin staining) Skin: No Rashes, No Significant Lesion Neuro: Normal Speech, Other (oriented to self only) Psych/Mental Status: Mood NL Results Lab Laboratory Tests 01/22/21 11:26 01/23/21 10:34 A/P-Cardiology Admission Diagnosis DVT Coronary artery disease Atrial fibrillation Sinus node dysfunction Assessment/Plan Right DVT, venous doppler ultrasound on 01/17 showed partially occlusive thrombus in the right common femoral vein. There is occlusive thrombus throughout the superficial femoral vein and popliteal vein as well as the calf veins. Greater saphenous vein is patent. No fluid collection or mass is seen. Recommend IVC filter due prior history of intracranial hemorrhage. Patient had IVC filter deployed by Dr. Camacho on January 20, 2021. Lovenox has been restarted. History of subdural and subarchnoid hemorrhage, Treated at February 2020 due to injury suffered from fall. Head and neck CT done on 01/17/21 showed no current evidence of intracranial hemorrhage. CAD, nonobstructive- most recent cardiac catheterization on July revealed 50-60 percent stenosis at the proximal and mid right coronary artery. FFR was at the lowest 0.89 after adenosine, nonobstructice disease. Had slight elevation in troponin, no EKG changes. Probably underlying progression of his coronary artery disease, conservative management is recommended, cannot tolerate long-term dual antiplatelet therapy. Sick sinus syndrome/permanent pacemaker, status post pacemaker generator replacement on November. Continue to monitor Paroxysmal atrial fibrillation, currently on amiodarone at home [id number] score of 6, yearly risk of stroke without oral anticoagulation is 9.8%. Patient is unable to tolerate oral anticoagulation due to the unsteady gait and multiple falls and intracranial bleed in February 2020. Maintained on amiodarone and maintained in ventricular paced rhythm Atypical pneumonia, currentlty taking ceftriaxone and azithromyocin. Managed by Dr. Gasca Hypertension, Continue to monitor BP and heart rate History of CVA, patient was on chronic coumadinization but has been discontinued due to prior brain bleeds. Mild nonobstructive carotid artery stenosis, continue to monitor Parkinson disease, unsteady gait. Managed by primary care team Depression, flat affect. Was hospitalized at inpatient psych earlier in 2020. Managed by primary care team Diabetes mellitus, followed and managed by primary care physician COPD/obstructive sleep apnea Supervisory-Addendum Brief Verification & Attestation Participated in pt care: history, MDM, physical Personally performed: exam, history, MDM, supervision of care Care discussed with: Medical Student Procedures: n/a Results interpretation: Verified all documentation Verification and Attestation of Medical Student E/M Service A medical student performed and documented this service in my presence. I reviewed and verified all information documented by the medical student and made modifications to such information, when appropriate. I personally performed the physical exam and medical decision making. Yohana Fairbanks, Jan 23, 2021,10:57 AFRAZ MARR Jan 23, 2021 08:00 YOHANA FAIRBANKS MD Jan 23, 2021 10:58
[2021-01-23] MEDS: TAMSULOSIN 0.4 MG (FLOMAX) CAP PO SCH ×2 (09:02→20:29)
[2021-01-23] MEDS: LACTULOSE SYRUP 10GM/15ML (ENULOSE) 30ML UDC PO SCH (09:02)
[2021-01-23] MEDS: amLODIPine 5 MG (NORVASC) TAB PO SCH (09:03)
[2021-01-23] MEDS: ENALAPRIL 5 MG (VASOTEC) TAB PO SCH ×2 (09:03→20:30)
[2021-01-23] MEDS: guaiFENesin (MUCINEX) 600 MG TAB PO SCH ×2 (09:03→20:29)
[2021-01-23] MEDS: SINEMET 25/100 (CARBIDOPA/LEVODOPA) TAB PO SCH ×2 (09:03→20:32)
[2021-01-23] MEDS: OLANZapine 5 MG (ZyPREXA) TAB PO SCH ×2 (09:03→20:30)
[2021-01-23] MEDS: AMIODARONE 200 MG (CORDARONE) TAB PO SCH (09:03)
--- NOTE | 2021-01-23 10:15 | Physical Therapy Daily Note ---
PT Daily Note-Current Subjective Patient and spouse agree to PT. Mental Status Attachments: Oxygen, Wall Catheter Transfers SCALE: Activities may be completed with or without assistive devices. 0-Apjvfxcxhj-ruhncrz completes the activity by him/herself with no assistance from a helper. 5-Set-up or Clean-up Assistance-helper sets up or cleans up; patient completes activity. [place] assists only prior to or following the activity. 4-Supervision or Touching Assistance-helper provides verbal cues and/or touching/steadying and/or contact guard assistance as patient completes activity. Assistance may be provided throughout the activity or intermittently. 3-Partial/Moderate Assistance-helper does LESS THAN HALF the effort. [place] lifts, holds or supports trunk or limbs, but provides less than half the effort. 2-Substantial/Maximal Assistance-helper does MORE THAN HALF the effort. [place] lifts or holds trunk or limbs and provides more than half the effort. 0-Zydemnpwc-jhmsnr does ALL the effort. Patient does none of the effort to complete the activity. Or, the assistance of 2 or more helpers is required for the patient to complete the activity. If activity was not attempted, code reason: 7-Patient Refused. 9-Not Applicable-not attempted and the patient did not perform the activity before the current illness, exacerbation or injury. 10-Not Attempted due to Environmental Limitations-(lack of equipment, weather restraints, etc.). 88-Not Attempted due to Medical Conditions or Safety Concerns. Lying to Sitting/Side of Bed(Q: 2 Sit to Stand (QC): 3 Chair/Jpz-hg-Khfot Xfer(QC): 3 Gait Training Does the Patient Walk?: Yes Distance: 150' Walk 10 feet (QC): 3 Walk 50 ft with 2 Turns(QC): 3 Walk 150 ft (QC): 3 Gait Assistive Device: FWW Parkinson's gait sequence/PT assist with turns and to advance FWW with turns Assessment Patient up in recliner with needs met. Increase activity as tolerated by patient. PT Corporate Risk Analyst Goals Fdc Goals PT Corporate Risk Analyst Goals Time Frame: Jan 28, 2021 Roll Left & Right (QC): 4 Sit to Lying (QC): 4 Lying-Sitting on Side/Bed(QC): 4 Sit to Stand (QC): 4 Chair/Tjx-iu-Awdbv Xfer(QC): 4 Toilet Transfer (QC): 4 Walk 10 feet (QC): 4 Walk 50ft with 2 Turns (QC): 4 Walk 150 ft (QC): 4 PT Plan Treatment/Plan Treatment Plan: Continue Plan of Care Treatment Plan: Bed Mobility, Education, Functional Activity Nilda, Functional Strength, Gait, Safety, Therapeutic Exercise, Transfers Treatment Duration: Jan 28, 2021 Frequency: 6 times per week Estimated Hrs Per Day: .25 hour per day Patient and/or Family Agrees t: Yes Time/GCodes Time In: 926 Time Out: 945 Total Billed Treatment Time: 19 Total Billed Treatment 1 visit GT 19 min LUCÍA HUSTON PT Jan 23, 2021 10:15
[2021-01-23 10:42] LABS: BASOPHILS % (AUTO) 0 % (0-10); EOSINOPHILS # (AUTO) 0.1 10^3/uL (0.0-0.3); EOSINOPHILS % (AUTO) 1 % (0-10); HEMATOCRIT 40 % (40-54); HEMOGLOBIN 11.8 g/dL (13.3-17.7); LYMPHOCYTES % (AUTO) 19 % (12-44); MEAN CORPUSCULAR HEMOGLOBIN 27 pg (25-34); MEAN CORPUSCULAR HGB CONC 30 g/dL (32-36); MEAN CORPUSCULAR VOLUME 91 fL (80-99); MEAN PLATELET VOLUME 10.4 fL (9.0-12.2); MONOCYTES # (AUTO) 0.5 10^3/uL (0.0-1.0); MONOCYTES % (AUTO) 4 % (0-12); NEUTROPHILS # (AUTO) 8.2 10^3/uL (1.8-7.8); NEUTROPHILS % (AUTO) 75 % (42-75); PLATELET COUNT 201 10^3/uL (130-400); WHITE BLOOD COUNT 10.9 10^3/uL (4.3-11.0)
[2021-01-23 10:53] LABS: ALBUMIN 2.8 GM/DL (3.2-4.5); POTASSIUM 3.5 MMOL/L (3.6-5.0)
[2021-01-23 10:54] LABS: CALCIUM 8.4 MG/DL (8.5-10.1)
[2021-01-23 10:57] LABS: BILIRUBIN,TOTAL 0.3 MG/DL (0.1-1.0)
--- NOTE | 2021-01-23 14:22 | Progress Note - Hospitalist ---
RONEY MICHEL 01/23/21 1422: Subjective HPI/CC On Admission Date Seen by Provider: Jan 23, 2021 Time Seen by Provider: 10:00 Hawk Giron is an 75yo male with a PMH of Parkinson's, intracranial hemorrhage, bradycardia s/p ppm, afib, HTN and depression who was admitted 01/17 for right DVT and atypical pneumonia. Subjective/Events-last exam Today Mr. Giron had difficulty responding to my questions, which per chart review was unchanged from the day prior. Reports vague abdominal pain and some pain in right leg. Currently not oriented to place and time. Unable to follow commands. Denies fevers, chills. Denies chest pain. Does not recall last BM. Focused Exam Time of Focused Exam: 1448 Objective Exam Vital Signs Vital Signs Date Time Temp Pulse Resp B/P (MAP) Pulse Ox O2 Delivery O2 Flow Rate FiO2 01/23/21 12:00 36.5 65 20 130/80 (97) 94 Nasal Cannula 2.00 01/19/21 18:12 21 Capillary Refill : Less Than 3 Seconds General Appearance: No Apparent Distress, Chronically ill Respiratory: Chest Non Tender, No Accessory Muscle Use, No Respiratory Distress Cardiovascular: Regular Rate, Rhythm, No Edema, Normal Peripheral Pulses Gastrointestinal: Normal Bowel Sounds Extremity: Normal Capillary Refill Results/Procedures Lab Laboratory Tests 01/23/21 10:34 Patient resulted labs reviewed. Assessment/Plan Assessment and Plan Assess & Plan/Chief Complaint Hawk Giron is an 75yo male with a PMH of Parkinson's, intracranial hemorrhage, sick sinus syndrome s/p ppm, afib, HTN and depression who was admitted 01/17 for right DVT and atypical pneumonia. Current problems are the following Right leg DVT -01/17: US right leg showed DVT. Given history of SAH unable to start anticoags -01/20: IVC filter placed. Plan -Pt had been on anticoagulants - discontinued -Continue to monitor Debility Parkinson's -PT/OT consulted Afib -Continue TECHNICAL ILLUSTRATOR amioderone Atypical pneumonia -01/17: On admission pt presented with SOB -01/18: Chest xray consistent with atypical pneumonia -Treated with ceftriaxone and azithromycin for 6 days Plan: -DC abx -Continue to monitor HTN -Continue TECHNICAL ILLUSTRATOR meds Depression -Continue TECHNICAL ILLUSTRATOR meds EVELINE ELDER DO 01/24/21 0537: Subjective Subjective/Events-last exam Pt doing pretty well Lovenox stopped due to history of intercranial hemorrhage IVC filter placed Pt appears to be very dependent PT and OT did walk him at bedside Will evaluate social work evaluation He really needs placement in a senior care Review of Systems General: Fatigue, Malaise Neurological: Confusion Objective Exam General Appearance: No Apparent Distress, WD/WN, Chronically ill Respiratory: No Accessory Muscle Use, No Respiratory Distress, Decreased Breath Sounds Cardiovascular: Regular Rate, Rhythm Neurologic/Psychiatric: Alert, Depressed Affect Assessment/Plan Assessment and Plan Assess & Plan/Chief Complaint IVC filter placement DC Lovenox Supervisory-Addendum Brief Verification & Attestation Participated in pt care: history, MDM, physical Personally performed: exam, history, MDM, supervision of care Care discussed with: Medical Student Procedures: n/a Results interpretation: Verified all documentation Verification and Attestation of Medical Student E/M Service A medical student performed and documented this service in my presence. I reviewed and verified all information documented by the medical student and made modifications to such information, when appropriate. I personally performed the physical exam and medical decision making. Eveline Elder, Jan 24, 2021,05:36 RONEY MICHEL Jan 23, 2021 14:22 EVELINE ELDER DO Jan 24, 2021 05:37
--- NOTE | 2021-01-23 14:23 | Occupational Therapy Eval ---
OT Evaluation-General/PLF Medical Diagnosis Admission Date Jan 17, 2021 at 14:45 Medical Diagnosis: sepsis/atypical pneumonia/respiratory failure/elevated troponin Onset Date: Jan 17, 2021 Therapy Diagnosis Therapy Diagnosis: Impaired adls Height/Weight Height (Feet): 5 Height (Inches): 8.50 Weight (Pounds): 223 Weight (Ounces): 4.0 Precautions Precautions/Isolations: Fall Prevention, Standard Precautions, Pressure Ulcer Referral Physician: Campos Referral Reason: Evaluation/Treatment Medical History Pertinent Medical History: Atrial Fib, Arthritis, CAD, CVA, DM, Dementia, HTN, Parkinson's Additional Medical History pacemaker 2007 Current History Per , pt admitted following increased difficulty in walking. He was found to have DVT. At baseline, pt receives assists with all adls and has caregivers both during the day and at night. He uses a walker and is able to transfers with assistance. Reviewed History: Yes Social History Home: Single Level Current Living Status: Spouse (and [employer] workers) Entry Into Home: Ramp ADL-Prior Level of Function SCALE: Activities may be completed with or without assistive devices. 4-Qsynnnmqza-uenakkf completes the activity by him/herself with no assistance from a helper. 5-Set-up or Clean-up Assistance-helper sets up or cleans up; patient completes activity. [place] assists only prior to or following the activity. 4-Supervision or Touching Assistance-helper provides verbal cues and/or touching/steadying and/or contact guard assistance as patient completes activity. Assistance may be provided throughout the activity or intermittently. 3-Partial/Moderate Assistance-helper does LESS THAN HALF the effort. [place] lifts, holds or supports trunk or limbs, but provides less than half the effort. 2-Substantial/Maximal Assistance-helper does MORE THAN HALF the effort. [place] lifts or holds trunk or limbs and provides more than half the effort. 3-Wsizogfut-kkjyev does ALL the effort. Patient does none of the effort to complete the activity. Or, the assistance of 2 or more helpers is required for the patient to complete the activity. If activity was not attempted, code reason: 7-Patient Refused. 9-Not Applicable-not attempted and the patient did not perform the activity before the current illness, exacerbation or injury. 10-Not Attempted due to Environmental Limitations-(lack of equipment, weather restraints, etc.). 88-Not Attempted due to Medical Conditions or Safety Concerns. Self Care: Dependent Functional Cognition: Dependent Drive Self: No OT Current Status Subjective Pt is very [place], requires repetition of commands. Unable to correctly determine level of comprehension. Mental Status/Objective Patient Orientation: Person, Confused Current Glasses/Contacts: Yes Hearing Aids: Yes Unable to follow visual/verbal commands. ADL-Treatment Eating (QC): 1 ( feeding patient at OT arrival, she reports this is baseline for the patient ) Lower Body Dressing (QC): 1 On/Off Footwear (QC): 1 Sit<>Stand: min A. Pt able to take small steps forward with walker and min a. Assist to manage walker, especially with turns. Pt with shuffling gait pattern, history of Parkinsons. Education OT Patient Education: Correct positioning, Modified ADL techniques, Purpose of tx/functional activities, Rehab process Teaching Recipient: Patient, Family Teaching Methods: Demonstration, Discussion Response to Teaching: Unable to Comprehend OT Chcf Goals Database Marketing Manager Goals 1=Demonstrate adherence to instructed precautions during ADL tasks. 2=Patient will verbalize/demonstrate understanding of assistive devices/modifications for ADL. 3=Patient will improve strength/tolerance for activity to enable patient to pe rform ADL's. OT Education/Plan Problem List/Assessment Assessment: No Skilled OT Needs ID'd reports already having extra help and declines any skilled services from OT at this time. Discharge Recommendations Plan/Recommendations: Discontinue OT Therapy Discharge Recommendati: 24 Hour Supervision, Homemaker Support, Home & Family Comment Pt already with extra private duty assistance. declines further OT services. D/C from OT at this time. Treatment Plan/Plan of Care Patient would benefit from OT for education, treatment and training to promote independence in ADL's, mobility, safety and/or upper extremity function for ADL's. Plan of Care: OTHER Treatment Duration: Jan 23, 2021 Frequency: 1 time per week Estimated Hrs Per Day: .25 hour per day Rehab Potential: Guarded Time/GCodes Start Time: 12:15 Stop Time: 12:24 Total Time Billed (hr/min): 9 Billed Treatment Time 1, Khalida Cole OT Jan 23, 2021 14:23
[2021-01-23] MEDS: SIMvastatin 10 MG (ZOCOR) TAB PO SCH (20:29)
[2021-01-23] MEDS: clonazePAM 0.5 MG (KlonoPIN) TAB PO SCH (20:30)
[2021-01-23] MEDS: MIRTAZAPINE 15 MG (REMERON) TAB PO SCH (20:31)
[2021-01-24 04:00] VITALS: BP 116/65
[2021-01-24 04:27] LABS: BASOPHILS % (AUTO) 0 % (0-10); EOSINOPHILS # (AUTO) 0.1 10^3/uL (0.0-0.3); EOSINOPHILS % (AUTO) 1 % (0-10); HEMATOCRIT 35 % (40-54); HEMOGLOBIN 10.5 g/dL (13.3-17.7); LYMPHOCYTES % (AUTO) 17 % (12-44); MEAN CORPUSCULAR HEMOGLOBIN 27 pg (25-34); MEAN CORPUSCULAR HGB CONC 30 g/dL (32-36); MEAN CORPUSCULAR VOLUME 90 fL (80-99); MEAN PLATELET VOLUME 10.7 fL (9.0-12.2); MONOCYTES # (AUTO) 0.6 10^3/uL (0.0-1.0); MONOCYTES % (AUTO) 6 % (0-12); NEUTROPHILS # (AUTO) 8.8 10^3/uL (1.8-7.8); NEUTROPHILS % (AUTO) 76 % (42-75); PLATELET COUNT 214 10^3/uL (130-400); WHITE BLOOD COUNT 11.6 10^3/uL (4.3-11.0)
[2021-01-24 04:50] LABS: ALBUMIN 2.6 GM/DL (3.2-4.5); CHLORIDE 105 MMOL/L (98-107); POTASSIUM 3.6 MMOL/L (3.6-5.0); SODIUM 144 MMOL/L (135-145)
[2021-01-24 04:53] LABS: GLUCOSE 108 MG/DL (70-105); TOTAL PROTEIN 5.3 GM/DL (6.4-8.2)
[2021-01-24 04:54] LABS: CARBON DIOXIDE 29 MMOL/L (21-32)
[2021-01-24 04:55] LABS: BILIRUBIN,TOTAL 0.3 MG/DL (0.1-1.0)
[2021-01-24 04:56] LABS: ALKALINE PHOSPHATASE 53 U/L (40-136); CREATININE SERUM 0.87 MG/DL (0.60-1.30); GFR ESTIMATED 86
[2021-01-24 04:57] LABS: BUN/CREATININE RATIO 9
[2021-01-24 04:59] LABS: ALANINE AMINOTRANSFERASE < 6 U/L (0-55)
--- NOTE | 2021-01-24 07:54 | Cardiology Progress Note ---
Subjective Date Seen by Provider: Jan 24, 2021 Time Seen by Provider: 09:00 Subjective/Events-last exam Pt reports that he is doing fine and has no concerns. Cough is still present. Review of Systems General: No Chills, No Other (fever) HEENT: No Head Aches, No Visual Changes, No Eye Pain Pulmonary: No Dyspnea; Cough Cardiovascular: No: Chest Pain, Palpitations, Lt Headedness Gastrointestinal: No: Nausea, Vomiting, Abdominal Pain, Diarrhea, Constipation Genitourinary: No Dysuria, No Frequency Musculoskeletal: No: leg pain, foot pain Neurological: No: Weakness, Numbness Focused Exam Time of Focused Exam: 1448 Objective-Cardiology Exam Last Set of Vital Signs Vital Signs 01/19/21 18:12 FiO2 21 I&O Intake and Output 01/24/21 00:00 Intake Total 1170 ml Output Total 500 ml Balance 670 ml Intake Oral 1170 ml Output Urine Total 500 ml # Voids 1 General: Alert, Cooperative, No Acute Distress HEENT: PERRLA, EOMI Neck: Supple, No JVD Lungs: Clear to Auscultation, Normal Air Movement Heart: Regular Rate, Normal S1, Normal S2, No Murmurs Abdomen: Soft, No Tenderness Extremities: Other (right leg with 1-2/4 pitting edema, bilateral lower legs wtih hemosiderin staining) Skin: No Rashes, No Significant Lesion Neuro: Normal Speech, Other (oriented to self only) Psych/Mental Status: Mood NL Results Lab Laboratory Tests 01/24/21 04:13 A/P-Cardiology Admission Diagnosis DVT Coronary artery disease Atrial fibrillation Sinus node dysfunction Assessment/Plan Right DVT, venous doppler ultrasound on 01/17 showed partially occlusive thrombus in the right common femoral vein. There is occlusive thrombus throughout the superficial femoral vein and popliteal vein as well as the calf veins. Greater saphenous vein is patent. No fluid collection or mass is seen. Recommend IVC filter due prior history of intracranial hemorrhage. Patient had IVC filter deployed by Dr. Camacho on January 20, 2021. Lovenox was discontinued History of subdural and subarchnoid hemorrhage, Treated at February 2020 due to injury suffered from fall. Head and neck CT done on 01/17/21 showed no current evidence of intracranial hemorrhage. CAD, nonobstructive- most recent cardiac catheterization on July revealed 50-60 percent stenosis at the proximal and mid right coronary artery. FFR was at the lowest 0.89 after adenosine, nonobstructice disease. Had slight elevation in troponin, no EKG changes. Probably underlying progression of his coronary artery disease, conservative management is recommended, cannot tolerate long-term dual antiplatelet therapy. Sick sinus syndrome/permanent pacemaker, status post pacemaker generator replacement on November. Continue to monitor Paroxysmal atrial fibrillation, currently on amiodarone at home [id number] score of 6, yearly risk of stroke without oral anticoagulation is 9.8%. Patient is unable to tolerate oral anticoagulation due to the unsteady gait and multiple falls and intracranial bleed in February 2020. Maintained on amiodarone and maintained in ventricular paced rhythm Atypical pneumonia, has finished course of antibiotics. Managed by Dr. Lucero Hypertension, Continue to monitor BP and heart rate History of CVA, patient was on chronic coumadinization but has been discontinued due to prior brain bleeds. Mild nonobstructive carotid artery stenosis, continue to monitor Parkinson disease, unsteady gait. Managed by primary care team Depression, flat affect. Was hospitalized at inpatient psych earlier in 2020. Managed by primary care team Diabetes mellitus, followed and managed by primary care physician COPD/obstructive sleep apnea Supervisory-Addendum Brief Verification & Attestation Participated in pt care: history, MDM, physical Personally performed: exam, history, MDM, supervision of care Care discussed with: Medical Student Procedures: n/a Results interpretation: Verified all documentation Verification and Attestation of Medical Student E/M Service A medical student performed and documented this service in my presence. I reviewed and verified all information documented by the medical student and made modifications to such information, when appropriate. I personally performed the physical exam and medical decision making. I made few modifications to the note using italic font Yohana Fairbanks, Jan 24, 2021,12:00 FARAZ MARR Jan 24, 2021 07:54 YOHANA FAIRBANKS MD Jan 24, 2021 12:01
[2021-01-24 08:00] VITALS: BP 132/84
[2021-01-24] MEDS: SINEMET 25/100 (CARBIDOPA/LEVODOPA) TAB PO SCH ×2 (08:08→21:27)
[2021-01-24] MEDS: OLANZapine 5 MG (ZyPREXA) TAB PO SCH ×2 (08:08→21:27)
[2021-01-24] MEDS: LACTULOSE SYRUP 10GM/15ML (ENULOSE) 30ML UDC PO SCH (08:08)
[2021-01-24] MEDS: MULTIVIT W/MINERALS TAB (THERAGRAN M) PO SCH (08:08)
[2021-01-24] MEDS: AMIODARONE 200 MG (CORDARONE) TAB PO SCH (08:08)
[2021-01-24] MEDS: ENALAPRIL 5 MG (VASOTEC) TAB PO SCH ×2 (08:08→21:28)
[2021-01-24] MEDS: amLODIPine 5 MG (NORVASC) TAB PO SCH (08:08)
[2021-01-24] MEDS: guaiFENesin (MUCINEX) 600 MG TAB PO SCH ×2 (08:08→21:27)
[2021-01-24] MEDS: TAMSULOSIN 0.4 MG (FLOMAX) CAP PO SCH ×2 (08:08→21:28)
--- NOTE | 2021-01-24 09:58 | Diagnostic Imaging Report ---
INDICATION: Pneumonia. Comparison is made with prior examination from 01/18/2021. FINDINGS: The heart size is normal. The lungs are clear. There is no pleural effusion or pneumothorax. The mediastinum is unremarkable. Pacemaker overlies the left hemithorax. IMPRESSION: No acute cardiopulmonary abnormality Dictated by: Dictated on workstation # [id number]
--- NOTE | 2021-01-24 11:46 | Physical Therapy Daily Note ---
PT Daily Note-Current Subjective Patient is up in recliner and states he doesn't feel well. Reluctantly agrees to PT. Mental Status Attachments: Oxygen Transfers SCALE: Activities may be completed with or without assistive devices. 6-Waydukrehz-zecgsin completes the activity by him/herself with no assistance from a helper. 5-Set-up or Clean-up Assistance-helper sets up or cleans up; patient completes activity. [place] assists only prior to or following the activity. 4-Supervision or Touching Assistance-helper provides verbal cues and/or touching/steadying and/or contact guard assistance as patient completes activity. Assistance may be provided throughout the activity or intermittently. 3-Partial/Moderate Assistance-helper does LESS THAN HALF the effort. [place] lifts, holds or supports trunk or limbs, but provides less than half the effort. 2-Substantial/Maximal Assistance-helper does MORE THAN HALF the effort. [place] lifts or holds trunk or limbs and provides more than half the effort. 1-Dwbnccjqa-dpwgey does ALL the effort. Patient does none of the effort to complete the activity. Or, the assistance of 2 or more helpers is required for the patient to complete the activity. If activity was not attempted, code reason: 7-Patient Refused. 9-Not Applicable-not attempted and the patient did not perform the activity before the current illness, exacerbation or injury. 10-Not Attempted due to Environmental Limitations-(lack of equipment, weather restraints, etc.). 88-Not Attempted due to Medical Conditions or Safety Concerns. Sit to Stand (QC): 2 Gait Training Does the Patient Walk?: Yes Distance: 150' Walk 10 feet (QC): 3 Walk 50 ft with 2 Turns(QC): 3 Walk 150 ft (QC): 3 Gait Assistive Device: FWW Parkinson's gait with PT assist to advance FWW Assessment Patient remains up in recliner. PT did assist patient with drinking milk and juice. Patient declined to eat the oatmeal. Nursing notified. PT to increase activity as tolerated by patient. PT Long-Term Goals Bridal Gown Fitter Goals PT Long-Term Goals Time Frame: Jan 28, 2021 Roll Left & Right (QC): 4 Sit to Lying (QC): 4 Lying-Sitting on Side/Bed(QC): 4 Sit to Stand (QC): 4 Chair/Iug-px-Nwjch Xfer(QC): 4 Toilet Transfer (QC): 4 Walk 10 feet (QC): 4 Walk 50ft with 2 Turns (QC): 4 Walk 150 ft (QC): 4 PT Plan Treatment/Plan Treatment Plan: Continue Plan of Care Treatment Plan: Bed Mobility, Education, Functional Activity Nilda, Functional Strength, Gait, Safety, Therapeutic Exercise, Transfers Treatment Duration: Jan 28, 2021 Frequency: 6 times per week Estimated Hrs Per Day: .25 hour per day Patient and/or Family Agrees t: Yes Time/GCodes Time In: 955 Time Out: 1010 Total Billed Treatment Time: 15 Total Billed Treatment 1 visit GT 15 min LUCÍA HUSTON PT Jan 24, 2021 11:46
[2021-01-24 12:00] VITALS: BP 127/75
--- NOTE | 2021-01-24 14:29 | Progress Note - Hospitalist ---
RONEY MICHEL 01/24/21 1429: Subjective HPI/CC On Admission Date Seen by Provider: Jan 24, 2021 Time Seen by Provider: 09:30 Hawk Giron is an 75yo male with a PMH of Parkinson's, intracranial hemorrhage, bradycardia s/p ppm, afib, HTN and depression who was admitted 01/17 for right DVT and atypical pneumonia. Subjective/Events-last exam Overnight patient experienced coughing episode. When RT came to provide treatment, patient refused per chart review Today Mr. Giron reports that he is doing okay. Reports adequate urine output s/p butt removal. Does not recall last BM removal. Endorses abdominal pain. Denies fevers, chills, diarrhea. Denies chest pain, palpitations Focused Exam Time of Focused Exam: 1448 Objective Exam Vital Signs Vital Signs Date Time Temp Pulse Resp B/P (MAP) Pulse Ox O2 Delivery O2 Flow Rate FiO2 01/24/21 12:00 35.9 65 20 127/75 (92) 94 Nasal Cannula 2.00 01/19/21 18:12 21 Capillary Refill : Less Than 3 Seconds General Appearance: No Apparent Distress, WD/WN Respiratory: Chest Non Tender, No Accessory Muscle Use, No Respiratory Distress, Decreased Breath Sounds Cardiovascular: Regular Rate, Rhythm, No Edema, Normal Peripheral Pulses Gastrointestinal: Normal Bowel Sounds Extremity: Normal Capillary Refill Neurologic/Psychiatric: Disoriented Results/Procedures Lab Laboratory Tests 01/24/21 04:13 Patient resulted labs reviewed. Assessment/Plan Assessment and Plan Assess & Plan/Chief Complaint Hawk Giron is an 75yo male with a PMH of Parkinson's, intracranial hemorrhage, sick sinus syndrome s/p ppm, afib, HTN and depression who was admitted 01/17 for right DVT and atypical pneumonia. Current problems are the following Atypical pneumonia Leukocytosis -01/17: On admission pt presented with SOB -01/18: Chest xray consistent with atypical pneumonia -Treated with ceftriaxone and azithromycin for 6 days -01/23: Onset of worsening cough. WBCs up to 11.6 -Procalc 0.11, BNP 170. Repeat Xray wnl Plan: -Continue to monitor Right leg DVT -01/17: US right leg showed DVT. Given history of SAH unable to start anticoags -01/20: IVC filter placed. Plan -Pt had been on anticoagulants - discontinued -Continue to monitor Debility Parkinson's -PT/OT consulted Afib -Continue GUEST SERVICE AGENT amioderone HTN -Continue GUEST SERVICE AGENT meds Depression -Continue GUEST SERVICE AGENT meds EVELINE ELDER DO 01/25/21 0527: Subjective Subjective/Events-last exam Pt about the same Having a coarse cough Will check BNP, Procalcitonin, CXR and continue PT and OT Likely discharge tomorrow Unsure if I can get anything better than back to baseline or anything near right now Objective Exam General Appearance: No Apparent Distress, WD/WN, Chronically ill Respiratory: No Accessory Muscle Use, No Respiratory Distress, Decreased Breath Sounds Cardiovascular: Regular Rate, Rhythm Assessment/Plan Assessment and Plan Assess & Plan/Chief Complaint Discharge planned Supervisory-Addendum Brief Verification & Attestation Participated in pt care: history, MDM, physical Personally performed: exam, history, MDM, supervision of care Care discussed with: Medical Student Procedures: n/a Results interpretation: Verified all documentation Verification and Attestation of Medical Student E/M Service A medical student performed and documented this service in my presence. I reviewed and verified all information documented by the medical student and made modifications to such information, when appropriate. I personally performed the physical exam and medical decision making. Eveline Elder, Jan 25, 2021,05:26 RONEY MICHEL Jan 24, 2021 14:29 EVELINE ELDER DO Jan 25, 2021 05:27
[2021-01-24 16:00] VITALS: BP 143/61
[2021-01-24] MEDS ORDERED: FUROSEMIDE 40 MG/4 ML INJ (LASIX) IVP ONE (18:15)
[2021-01-24] MEDS ORDERED: FUROSEMIDE 40 MG/4 ML INJ (LASIX) ONE (18:31)
[2021-01-24 20:00] VITALS: BP 165/75
[2021-01-24] MEDS: SIMvastatin 10 MG (ZOCOR) TAB PO SCH (21:27)
[2021-01-24] MEDS: clonazePAM 0.5 MG (KlonoPIN) TAB PO SCH (21:27)
[2021-01-24] MEDS: MIRTAZAPINE 15 MG (REMERON) TAB PO SCH (21:29)
[2021-01-25 01:04] VITALS: BP 123/67
[2021-01-25 04:24] VITALS: BP 135/70
[2021-01-25 05:50] LABS: BASOPHILS % (AUTO) 0 % (0-10); EOSINOPHILS # (AUTO) 0.1 10^3/uL (0.0-0.3); EOSINOPHILS % (AUTO) 1 % (0-10); HEMATOCRIT 37 % (40-54); HEMOGLOBIN 10.8 g/dL (13.3-17.7); LYMPHOCYTES # (AUTO) 2.2 10^3/uL (1.0-4.0); LYMPHOCYTES % (AUTO) 20 % (12-44); MEAN CORPUSCULAR HEMOGLOBIN 27 pg (25-34); MEAN CORPUSCULAR HGB CONC 30 g/dL (32-36); MEAN CORPUSCULAR VOLUME 90 fL (80-99); MEAN PLATELET VOLUME 10.9 fL (9.0-12.2); MONOCYTES # (AUTO) 0.7 10^3/uL (0.0-1.0); MONOCYTES % (AUTO) 6 % (0-12); NEUTROPHILS # (AUTO) 8.2 10^3/uL (1.8-7.8); NEUTROPHILS % (AUTO) 72 % (42-75); PLATELET COUNT 206 10^3/uL (130-400); WHITE BLOOD COUNT 11.3 10^3/uL (4.3-11.0)
[2021-01-25 06:08] LABS: ALBUMIN 2.7 GM/DL (3.2-4.5); POTASSIUM 3.5 MMOL/L (3.6-5.0)
[2021-01-25 06:09] LABS: CALCIUM 8.4 MG/DL (8.5-10.1)
[2021-01-25 06:10] LABS: TOTAL PROTEIN 5.7 GM/DL (6.4-8.2)
[2021-01-25 06:12] LABS: BILIRUBIN,TOTAL 0.3 MG/DL (0.1-1.0)
[2021-01-25 06:14] LABS: CREATININE SERUM 1.04 MG/DL (0.60-1.30)
[2021-01-25 07:16] VITALS: BP 115/73
[2021-01-25] MEDS: ENALAPRIL 5 MG (VASOTEC) TAB PO SCH (07:38)
[2021-01-25] MEDS: OLANZapine 5 MG (ZyPREXA) TAB PO SCH (07:38)
[2021-01-25] MEDS: amLODIPine 5 MG (NORVASC) TAB PO SCH (07:38)
[2021-01-25] MEDS: LACTULOSE SYRUP 10GM/15ML (ENULOSE) 30ML UDC PO SCH (07:38)
[2021-01-25] MEDS: SINEMET 25/100 (CARBIDOPA/LEVODOPA) TAB PO SCH (07:38)
[2021-01-25] MEDS: guaiFENesin (MUCINEX) 600 MG TAB PO SCH (07:38)
[2021-01-25] MEDS: TAMSULOSIN 0.4 MG (FLOMAX) CAP PO SCH (07:38)
[2021-01-25] MEDS: AMIODARONE 200 MG (CORDARONE) TAB PO SCH (07:39)
[2021-01-25] MEDS: MULTIVIT W/MINERALS TAB (THERAGRAN M) PO SCH (07:40)
--- NOTE | 2021-01-25 07:50 | Cardiology Progress Note ---
Subjective Date Seen by Provider: Jan 25, 2021 Time Seen by Provider: 09:00 Subjective/Events-last exam Pt reports that he is doing fine this morning. States that he is not having any issues. Cough is improving. Review of Systems General: No Chills, No Other (fever) HEENT: No Head Aches, No Visual Changes Pulmonary: No Dyspnea, No Cough Cardiovascular: No: Chest Pain, Palpitations, Lt Headedness Gastrointestinal: No: Nausea, Vomiting, Abdominal Pain Musculoskeletal: No: leg pain, foot pain Neurological: No: Weakness, Numbness Focused Exam Time of Focused Exam: 1448 Objective-Cardiology Exam Last Set of Vital Signs Vital Signs 01/19/21 01/25/21 18:12 12:14 Temp 35.3 Pulse 82 Resp 18 B/P (MAP) 143/81 (101) Pulse Ox 99 O2 Delivery Nasal Cannula O2 Flow Rate 2.00 FiO2 21 I&O Intake and Output 01/25/21 00:00 Intake Total 850 ml Balance 850 ml Intake Oral 850 ml # Urine Diapers 12 General: Alert, Cooperative, No Acute Distress HEENT: PERRLA, EOMI Neck: Supple, No JVD Lungs: Clear to Auscultation, Normal Air Movement Heart: Regular Rate, Normal S1, Normal S2, No Murmurs Abdomen: Soft, No Tenderness Extremities: Other (B/L pedal edema R>L. No tenderness) Skin: No Rashes, No Significant Lesion Neuro: Normal Speech Psych/Mental Status: Mood NL Results Lab Laboratory Tests 01/25/21 05:25 A/P-Cardiology Admission Diagnosis DVT Coronary artery disease Atrial fibrillation Sinus node dysfunction Assessment/Plan Right DVT, venous doppler ultrasound on 01/17 showed partially occlusive thrombus in the right common femoral vein. There is occlusive thrombus throughout the superficial femoral vein and popliteal vein as well as the calf veins. Greater saphenous vein is patent. No fluid collection or mass is seen. Recommend IVC filter due prior history of intracranial hemorrhage. Patient had IVC filter deployed by Dr. Camacho on January 20, 2021. Lovenox was discontinued. Given a single 40mg dose of Lasix yesterday. History of subdural and subarchnoid hemorrhage, Treated at February 2020 due to injury suffered from fall. Head and neck CT done on 01/17/21 showed no current evidence of intracranial hemorrhage. CAD, nonobstructive- most recent cardiac catheterization on July revealed 50-60 percent stenosis at the proximal and mid right coronary artery. FFR was at the lowest 0.89 after adenosine, nonobstructice disease. Had slight elevation in troponin, no EKG changes. Probably underlying progression of his coronary artery disease, conservative management is recommended, cannot tolerate long-term dual antiplatelet therapy. Sick sinus syndrome/permanent pacemaker, status post pacemaker generator replacement on November. Continue to monitor Paroxysmal atrial fibrillation, currently on amiodarone at home [id number] score of 6, yearly risk of stroke without oral anticoagulation is 9 .8%. Patient is unable to tolerate oral anticoagulation due to the unsteady gait and multiple falls and intracranial bleed in February 2020. Maintained on amiodarone and maintained in ventricular paced rhythm Atypical pneumonia, has finished course of antibiotics. CXR done yesterday had no abnormal findings. Managed by Dr. Lucero Hypertension, Continue to monitor BP and heart rate History of CVA, patient was on chronic coumadinization but has been discontinued due to prior brain bleeds. Mild nonobstructive carotid artery stenosis, continue to monitor Parkinson disease, unsteady gait. Managed by primary care team Depression, flat affect. Was hospitalized at inpatient psych earlier in 2020. Managed by primary care team Diabetes mellitus, followed and managed by primary care physician COPD/obstructive sleep apnea Patient was not seen by myself at this point, I discussed the management plan with the medical student On my arrival to the floor patient was already discharged. Supervisory-Addendum Brief Verification & Attestation Participated in pt care: other Personally performed: other Care discussed with: Medical Student, other Procedures: other Results interpretation: Verified all documentation Verification and Attestation of Medical Student E/M Service A medical student performed and documented this service in my presence. I reviewed and verified all information documented by the medical student and made modifications to such information, when appropriate. I personally was involved with his management and medical decision making. I did not have a chance to see the patient today, he was discharged prior to my evaluation Yohana Fairbanks, Jan 25, 2021,16:01 FARAZ MARR Jan 25, 2021 07:50 YOHANA FAIRBANKS MD Jan 25, 2021 16:02
[2021-01-25] MEDS ORDERED: AMLO-250 PO (10:18)
--- NOTE | 2021-01-25 10:19 | Discharge Summary ---
Discharge Summary Hospital Course Was the Problem List Reviewed?: Yes Problems/Dx: (1) Physical debility Status: Acute (2) Dvt femoral (deep venous thrombosis) Status: Acute Qualifiers: Qualified Codes: I82.411 - Acute embolism and thrombosis of right femoral vein (3) History of subarachnoid hemorrhage Status: Chronic Hospital Course Date of Admission: Jan 17, 2021 at 14:45 Admission Diagnosis : Family Physician/Provider: [facility] Date of Discharge: 01/25/21 Discharge Diagnosis: DVT, history of intracranial bleed, anticoagulation contraindicated, IVC filter placed, dementia Hospital Course: Hospital course: Pt had an uneventful hospital course, he was admitted for left lower extremity DVT with a history of intracranial hemorrhage so he was deemed not a coagulant candidate so IVC filter was placed by Dr. Camacho. Pt ultimately completed antibiotics and diuresis and Pt was deemed stable for discharge on home health with two liters of oxygen and will be monitored closely but his prognosis is poor. Labs and Pending Lab Test: Laboratory Tests 01/25/21 05:25: White Blood Count 11.3H, Red Blood Count 4.06L, Hemoglobin 10.8L, Hematocrit 37L , Mean Corpuscular Volume 90, Mean Corpuscular Hemoglobin 27, Mean Corpuscular Hemoglobin Concent 30L, Red Cell Distribution Width 14.8H, Platelet Count 206, Mean Platelet Volume 10.9, Immature Granulocyte % (Auto) 1, Neutrophils (%) (Auto) 72, Lymphocytes (%) (Auto) 20, Monocytes (%) (Auto) 6, Eosinophils (%) (Auto) 1, Basophils (%) (Auto) 0, Neutrophils # (Auto) 8.2H, Lymphocytes # (Auto) 2.2, Monocytes # (Auto) 0.7, Eosinophils # (Auto) 0.1, Basophils # (Auto) 0.0, Immature Granulocyte # (Auto) 0.1, Sodium Level 142, Potassium Level 3.5L, Chloride Level 103, Carbon Dioxide Level 30, Anion Gap 9, Blood Urea Nitrogen 12, Creatinine 1.04, Estimat Glomerular Filtration Rate 70, BUN/Creatinine Ratio 12, Glucose Level 106H, Calcium Level 8.4L, Corrected Calcium 9.4, Total Bilirubin 0.3, Aspartate Amino Transf (AST/SGOT) 12, Alanine Aminotransferase (ALT/SGPT) 7, Alkaline Phosphatase 61, Total Protein 5.7L, Albumin 2.7L Microbiology 01/19/21 MRSA Screen - Final, Complete MRSA not isolated 01/17/21 Urine Culture - Final, Complete NO GROWTH 01/17/21 Blood Culture - Final, Complete No growth Home Meds Active Amlodipine Besylate 5 Mg Tablet 5 Mg PO DAILY Reported Multivitamin 1 Each Tablet 1 Each PO DAILY Mirtazapine 7.5 Mg Tablet 7.5 Mg PO HS Clonazepam 0.5 Mg Tablet 0.5 Mg PO 0600,1200 PRN Clonazepam 0.5 Mg Tablet 0.5 Mg PO HS Flomax (Tamsulosin HCl) 0.4 Mg Cap 0.4 Mg PO BID Azithromycin 250 Mg Tablet 250 Mg PO DAILY FILLED 01-16-2021 #6/5 DAY SUPPLY Olanzapine 5 Mg Tablet 5 Mg PO DAILY Olanzapine 10 Mg Tablet 10 Mg PO HS FILLED 12-17-2020 #15/15 DAY SUPPLY Myrbetriq (Mirabegron) 50 Mg Tab.er.24h 50 Mg PO DAILY Constulose (Lactulose) 10 Gm/15 Ml Solution 30 Ml PO DAILY Levetiracetam 500 Mg Tablet 500 Mg PO BID Pacerone (Amiodarone HCl) 200 Mg Tablet 200 Mg PO DAILY Carbidopa-Levodopa 25-100 Tab (Carbidopa/Levodopa) 1 Each Tablet 1 Ea PO BID Lovastatin 20 Mg Tablet 20 Mg PO HS Enalapril Maleate 5 Mg Tablet 5 Mg PO BID Assessment/Pt Instructions [facility] in 1 week Discharge Planning: <30 minutes discharge planning Discharge Instructions Discharge Diet: No Restrictions Activity as Tolerated: Yes Discharge Physical Examination Vital Signs Vital Signs Date Time Temp Pulse Resp B/P (MAP) Pulse Ox O2 Delivery O2 Flow Rate FiO2 01/25/21 07:16 35.5 62 18 115/73 (87) 98 Nasal Cannula 2.00 01/19/21 18:12 21 General Appearance: No Apparent Distress, WD/WN, Chronically ill Neurologic/Psychiatric: Alert, Disoriented Allergies: Coded Allergies: Sulfa (Sulfonamide Antibiotics) (Verified Allergy, Unknown, 01/14/19) Discharge Summary Date of Admission Jan 17, 2021 at 14:45 Date of Discharge Discharge Date: Jan 25, 2021 Discharge Diagnosis Discharge planned DIYA ELDER DO Jan 25, 2021 10:19
--- NOTE | 2021-01-25 10:20 | D/C HH Face to Face Order ---
D/C Face to Face Orders Reconcile Patient Problems Problems Reviewed?: Yes Instructions for Patient Via [facility], Patient Instructions/FollowUp: [facility] 1 week Physician to follow Patient: [facility] Discharge Diet for Home: No Restrictions Patient Problems: Debility DVT s/p IVC Patient Data-Allergies,Ht & Wt Patient Allergies: Coded Allergies: Sulfa (Sulfonamide Antibiotics) (Verified Allergy, Unknown, 01/14/19) Height (Feet): 5 Height (Inches): 8.50 Weight (Pounds): 223 Weight (Ounces): 4.0 Home Health Need/Face to Face Date of Face to Face: Jan 25, 2021 Clinical Findings: Generalized weakness and fatigue, Instability, Muscle weakness, Unsteady gait I have seen Pt [id number]: Yes Discharged To: Home Diagnosis/Conditions: DVT Patient is Homebound due to: CognItive deficits, May fall risk due to instabilty, Muscle weakness Homebound Status Due to the above stated illness, injury or surgical procedure (medical condition or diagnosis) and associated clinical findings, the patient is homebound because of his/her inability to leave home except with aid of a supportive device and/or person AND leaving the home requires a considerable and taxing effort or is medically contraindicated. Pt req the following assistanc: Walker Home Health Nursing Orders Home Health Services Order: Nursing Services, Block Press Operator-Evaluate & Treat, Physical Therapy-Evaluate & Treat Home Health Infusion Therapy Line Start Date: Jan 17, 2021 Certify Stmt I certify that this patient is under my care and that I, a nurse practitioner or a physician; a blood donor unit assistant working with me, had a face to face encounter that - meets the physician face to face encounter requirements with this patient as dated. DIYA ELDER DO Jan 25, 2021 10:20
[2021-01-25 12:14] VITALS: BP 143/81
[2021-01-25 13:30] VITALS: BP 143/81
--- NOTE | 2021-01-25 13:45 | Progress Note ---
RONEY MICHEL 01/25/21 1345: Progress Note Hawk Giron is an 75yo male with a PMH of Parkinson's, intracranial hemorrhage, bradycardia s/p ppm, afib, HTN and depression who was admitted 01/17 for right DVT and atypical pneumonia. On 01/17 patient's reported difficulty coughing for which she took him briefly to the ER and was given azithromycin. They left the ER but then quickly returned. On admission patient was found to be in acute hypoxic failure and required 2L via nasal canula. Chest xray's from 01/17 and 01/18 were consistent with atypical pneumonia. Patient was managed with ceftriaxone and azithromycin for 6 days. By 01/23 patient was successfully weaned off of supplemental oxygen. Repeat chest xray, procalcitonin, and BNP were within normal limits. By 01/24 his pneumonia and hypoxic respiratory failure was resolved. In addition, patient was noted to have a DVT of his right leg on admission 01/17 via Doppler US. However, patient had a brain bleed in February 2020 after a fall that was managed at . Given history of the brain bleed, anticoagulants are contraindicated and were discontinued. On 01/20 an IVC filter was placed without complication. Patient is noted to have significant debility complicated by Parkinson's disease (diagnosed in February 2020). Therefore, patient was discharged with home health on 01/24. Patient was medically stable on discharge. EVELINE ELDER DO 01/25/212100: Supervisory-Addendum Brief Verification & Attestation Participated in pt care: history, MDM, physical Personally performed: exam, history, MDM, supervision of care Care discussed with: Medical Student Procedures: n/a Results interpretation: Verified all documentation Verification and Attestation of Medical Student E/M Service A medical student performed and documented this service in my presence. I revi ewed and verified all information documented by the medical student and made modifications to such information, when appropriate. I personally performed the physical exam and medical decision making. Eveline Elder Jan 25, 2021,21:01 RONEY MICHEL Jan 25, 2021 13:45 EVELINE ELDER DO Jan 25, 2021 21:01
--- NOTE | 2021-01-27 13:00 | Physician Query Clarification ---
PQ-Uncertain Diagnosis Admission/Discharge Admission Date: Jan 17, 2021 at 14:45 Discharge Date: Jan 25, 2021 at 13:30 Dr. Márquez, The medical record reflects the following clinical scenario: History/Risk Factors: atypical pneumonia, COPD, acute hypoxic respiratory failure, DVT rt lower leg Clinical Findings: WBC 12.7, Lactic acid 1.75, T 37.9, R 27, P 66 Treatment: IV Cefepime, IV Vancomycin, IV azithromycin Question: Is sepsis a clinically valid diagnosis? Sepsis was documented in the ER with no further documentation in the medical record. Please document a response in Progress Note or Discharge Summary. 1. Yes, clinically valid, condition resolved. 2. No, condition ruled out. 3. Other, with explanation of clinical findings. 4. Undetermined, no explanation for clinical findings. PHYSICIAN RESPONSE Diagnosis clinically valid: No, conditon ruled out Please remember a lack of response to the above will prompt a phone page by CDI/Coding staff. In responding to this query, please exercise your independent professional judgment. The purpose of this communication is to more accurately reflect the complexity of your patients condition. The fact that a question is asked does not imply that any particular answer is desired or expected. Thank you for your timely response to this clarification. Requestors name: Nicolasa THIS PHYSICIAN QUERY FORM IS A PERMANENT PART OF THE MEDICAL RECORD NICOLASA GOTTI Jan 27, 2021 13:00 DIYA MÁRQUEZ DO Jan 27, 2021 15:04
== END 2021-01-25 13:30 | disposition home health service (06) | DRG 299 ==
LOC: EDUNIT# 11:57 → ER 11:59 → 4TH 14:45
PROVIDERS: ADMIT Family Medicine; ATTEND Internal Medicine
PROC: 06H03DZ Insertion of Intraluminal Device into Inferior Vena Cava, Percutaneous Approach (ICD-10-PCS; principal; 2021-01-20 10:44)
DX: I82.411 Acute embolism and thrombosis of right femoral vein (principal); J18.9 Pneumonia, unspecified organism; J96.01 Acute respiratory failure with hypoxia; N17.9 Acute kidney failure, unspecified; F33.9 Major depressive disorder, recurrent, unspecified; J44.0 Chronic obstructive pulmonary disease with (acute) lower respiratory infection; I82.4Z1 Acute embolism and thrombosis of unspecified deep veins of right distal lower extremity; Z66 Do not resuscitate; Z20.822 Contact with and (suspected) exposure to COVID-19; G20 Parkinson's disease; G47.33 Obstructive sleep apnea (adult) (pediatric); I48.0 Paroxysmal atrial fibrillation; R26.81 Unsteadiness on feet; I49.5 Sick sinus syndrome; I08.2 Rheumatic disorders of both aortic and tricuspid valves; I25.10 Atherosclerotic heart disease of native coronary artery without angina pectoris; K21.9 Gastro-esophageal reflux disease without esophagitis; S00.12XA Contusion of left eyelid and periocular area, initial encounter; E78.00 Pure hypercholesterolemia, unspecified; E78.5 Hyperlipidemia, unspecified; I10 Essential (primary) hypertension; E11.9 Type 2 diabetes mellitus without complications; F41.9 Anxiety disorder, unspecified; M19.91 Primary osteoarthritis, unspecified site; I69.198 Other sequelae of nontraumatic intracerebral hemorrhage; K57.90 Diverticulosis of intestine, part unspecified, without perforation or abscess without bleeding; H53.8 Other visual disturbances; Z91.81 History of falling; Z95.0 Presence of cardiac pacemaker; Z99.81 Dependence on supplemental oxygen; Z79.84 Long term (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 oral hypoglycemic drugs; Z88.2 Allergy status to sulfonamides; W19.XXXA Unspecified fall, initial encounter
CPT/HCPCS: 36415; 51702; 70450; 70486; 71045; 72125; 76000; 80048; 80053; 81000; 82805; 83605; 83880; 84145; 84484; 85007; 85025; 85027; 85610; 85730; 86317; 86710; 86738; 87040; 87081; 87088; 87449; 87636; 93005; 94640; 94760; 94761; 96361; 96365; 96366; 96375; 99291

== ENCOUNTER 2021-02-12 21:21 | Inpatient (IN) | payer MEDICARE, MEDICAID ==
[~2021-02-12] VITALS: Ht 172.7 cm; Wt 88.3 kg
[~2021-02-12 21:21] MED LIST changes: +AMLO-250 PO; +MIRT7.5T8 PO; +MULT-1136 PO
[2021-02-12 21:36] LABS: BASOPHILS % (AUTO) 0 % (0-10); EOSINOPHILS % (AUTO) 0 % (0-10); HEMATOCRIT 39 % (40-54); HEMOGLOBIN 11.6 g/dL (13.3-17.7); LYMPHOCYTES # (AUTO) 1.9 10^3/uL (1.0-4.0); LYMPHOCYTES % (AUTO) 9 % (12-44); MEAN CORPUSCULAR HEMOGLOBIN 27 pg (25-34); MEAN CORPUSCULAR HGB CONC 30 g/dL (32-36); MEAN CORPUSCULAR VOLUME 92 fL (80-99); MEAN PLATELET VOLUME 11.7 fL (9.0-12.2); MONOCYTES % (AUTO) 5 % (0-12); NEUTROPHILS # (AUTO) 16.8 10^3/uL (1.8-7.8); NEUTROPHILS % (AUTO) 85 % (42-75); PLATELET COUNT 173 10^3/uL (130-400); WHITE BLOOD COUNT 19.8 10^3/uL (4.3-11.0)
[2021-02-12] MEDS ORDERED: LACTATED RINGERS 1,000 ML IV STA (21:36)
[2021-02-12 21:43] LABS: ABG BASE EXCESS -3.2 MMOL/L (-2.5-2.5); ABG OXYGEN SATURATION 99 % (94-100); ABG PCO2 39 MMHG (35-45); ABG PH 7.36 (7.37-7.43); ABG PO2 127 MMHG (79-93); ABG TCO2 22.9 MMOL/L (21.0-31.0)
[2021-02-12 21:44] LABS: ALLENS TEST YES-POS; INSPIRED O2 4L; VENTILATOR NO
[2021-02-12 21:47] LABS: INR 1.2 (0.8-1.4); PROTHROMBIN TIME PATIENT 15.4 SEC (12.2-14.7)
[2021-02-12 21:48] LABS: ALBUMIN 3.5 GM/DL (3.2-4.5); POTASSIUM 4.8 MMOL/L (3.6-5.0)
[2021-02-12 21:49] LABS: CALCIUM 8.8 MG/DL (8.5-10.1)
[2021-02-12 21:51] LABS: TOTAL PROTEIN 6.7 GM/DL (6.4-8.2)
[2021-02-12 21:52] LABS: BILIRUBIN,TOTAL 0.4 MG/DL (0.1-1.0)
[2021-02-12 21:54] LABS: CREATININE SERUM 2.11 MG/DL (0.60-1.30)
[2021-02-12 21:56] LABS: BAND NEUTROPHILS 0 %; BASOPHILS % (MANUAL) 0 %; EOSINOPHILS % (MANUAL) 0 %; LYMPHOCYTES % (MANUAL) 13 %; MONOCYTES % (MANUAL) 5 %; NEUTROPHILS % (MANUAL) 82 %
[2021-02-12 21:57] LABS: RBC MORPH NORMAL
--- NOTE | 2021-02-12 22:02 | ED General ---
General Chief Complaint: Cardiac/General Problems Stated Complaint: SOA Nursing Triage Note: BROUGHT IN BY [facility] FOR DECREASED LOC, HYPOTENSION, FALL. EMS CALLED TO HOME FOR LIFT ASSIST AFTER FALL. FOUND PT TO BE WEAK/DIAPHRETIC WITH LOW HR. PT DENIES C/O PAIN AT THIS TIME. Source of Information: Patient Exam Limitations: No Limitations History of Present Illness Date Seen by Provider: Feb 12, 2021 Time Seen by Provider: 21:22 Initial Comments Here with report of decreased level of consciousness as well as hypotension. He was at home. There was called to the house for a fall. He may have been let down to the floor. EMS noted that he was weak and diaphoretic with low blood pressure. Heart rate was also potentially low. Patient states that he did have chest pain but that apparently is better. He arrived with IV in place running 1 L of normal saline and will continue. Also on high flow oxygen with O2 sats in the 100s. Blood sugar was 130s. Blood pressure 90s systolic. EKG in the field shows ventricular paced rhythm. Patient does have history of Parkinson's disease as well as dementia and is DNR/DNI. is in route to the emergency department. EMS reports that he has been increasingly weak over the last day or 2 per the family. Further discussion with the reveals that he did not fall and he is not currently on blood thinners. He did not hit his head. Timing/Duration: 1-2 Days Severity: Moderate, Severe Modifying Factors: improves with Rest Associated Systoms: Chest Pain, Diaphoresis; No Fever/Chills; Nausea/Vomiting, Shortness of Air, Weakness Allergies and Home Medications Allergies Coded Allergies: Sulfa (Sulfonamide Antibiotics) (Verified Allergy, Unknown, 01/14/19) Patient Home Medication List Home Medication List Reviewed: Yes Amiodarone HCl (Pacerone) 200 Mg Tablet, 200 MG PO DAILY, (Reported) Entered as Reported by: ALEC DE OLIVEIRA on 11/16/20 1316 Amlodipine Besylate (Amlodipine Besylate) 5 Mg Tablet, 5 MG PO DAILY Prescribed by: DIYA ELDER on 01/25/21 1018 Carbidopa/Levodopa (Carbidopa-Levodopa 25-100 Tab) 1 Each Tablet, 1 EA PO BID, (Reported) Entered as Reported by: ALEC DE OLIVEIRA on 11/16/20 1316 Clonazepam (Clonazepam) 0.5 Mg Tablet, 0.5 MG PO HS, (Reported) Entered as Reported by: ALEC DE OLIVEIRA on 01/18/21 1329 Clonazepam (Clonazepam) 0.5 Mg Tablet, 0.5 MG PO 0600,1200 PRN for ANXIETY, (Reported) Entered as Reported by: ALEC DE OLIVEIRA on 01/18/21 1329 Enalapril Maleate (Enalapril Maleate) 5 Mg Tablet, 5 MG PO BID, (Reported) Entered as Reported by: ALEC DE OLIVEIRA on 11/03/18 1120 Lactulose (Constulose) 10 Gm/15 Ml Solution, 30 ML PO DAILY, (Reported) Entered as Reported by: ALEC DE OLIVEIRA on 11/16/20 131 Levetiracetam (Levetiracetam) 500 Mg Tablet, 500 MG PO BID, (Reported) Entered as Reported by: ALEC DE OLIVEIRA on 11/16/20 131 Lovastatin (Lovastatin) 20 Mg Tablet, 20 MG PO HS, (Reported) Entered as Reported by: ALEC DE OLIVEIRA on 11/03/18 1120 Mirabegron (Myrbetriq) 50 Mg Tab.er.24h, 50 MG PO DAILY, (Reported) Entered as Reported by: ALEC DE OLIVEIRA on 11/16/20 131 Mirtazapine (Mirtazapine) 7.5 Mg Tablet, 7.5 MG PO HS, (Reported) Entered as Reported by: ALEC DE OLIVEIRA on 01/18/21 132 Multivitamin (Multivitamin) 1 Each Tablet, 1 EACH PO DAILY, (Reported) Entered as Reported by: ALEC DE OLIVEIRA on 01/18/21 1330 Olanzapine (Olanzapine) 10 Mg Tablet, 10 MG PO HS, (Reported) Entered as Reported by: ALEC DE OLIVEIRA on 11/16/20 1316 Olanzapine (Olanzapine) 5 Mg Tablet, 5 MG PO DAILY, (Reported) Entered as Reported by: ALEC DE OLIVEIRA on 11/16/20 1316 Tamsulosin HCl (Flomax) 0.4 Mg Cap, 0.4 MG PO BID, (Reported) Entered as Reported by: ALEC DE OLIVEIRA on 01/18/21 1329 Review of Systems Review of Systems Constitutional: see HPI, diaphoresis; No fever; weakness EENTM: No nose congestion, No throat pain Respiratory: No cough; short of breath Cardiovascular: chest pain, edema Gastrointestinal: nausea, vomiting Genitourinary: No dysuria; incontinence Musculoskeletal: muscle weakness Skin: lesions (Sacral wound covered with dressing that reports is about the same but may be worsening slightly. It is superficial) Psychiatric/Neurological: Weakness Hematologic/Lymphatic: Blood Clots (Right leg DVT) All Other Systems Reviewed Negative Unless Noted: Yes Past Ultkmty-Vdsuug-Wfmsxh Hx Patient Social History Tobacco Use?: No Pt feels they are or have been: No Immunizations Up To Date Tetanus Booster (TDap): Unknown PED Vaccines UTD: Yes First/Initial COVID19 Vaccinat: JUN 2020 Second COVID19 Vaccination Shalom: JULY 2020 Seasonal Allergies Seasonal Allergies: No Past Medical History Surgery/Hospitalization HX: hx of Parkinsons, brain bleed. Pt admitted in November for sepsis then to SNF before going home, PPM, HTN, HOME O2 Surgeries: Yes (fatty tumor removed, R shoulder, RT KNEE REPLACED) Orthopedic, Pacemaker Respiratory: Yes Sleep Apnea Currently Using CPAP: No Currently Using BIPAP: No Cardiac: Yes (meditronic PACEMAKER) Atrial Fibrillation, High Cholesterol, Hypertension Neurological: Yes Dementia, Stroke Reproductive Disorders: No Sexually Transmitted Disease: No Genitourinary: Yes Kidney Stones Gastrointestinal: Yes Chronic Constipation Musculoskeletal: Yes (right knee arthritis) Arthritis, Chronic Back Pain Endocrine: Yes Diabetes, Non-Insulin dep HEENT: No Cancer: No Psychosocial: Yes Anxiety, Depression Integumentary: No Blood Disorders: No Adverse Reaction/Blood Tranf: No Family Medical History Reviewed Nursing Family Hx Cardiovascular disease 19 MOTHER Physical Exam-Suspected Sepsis Physical Exam Vital Signs Vital Signs - First Documented 02/12/21 21:21 Temp 36.0 Pulse 86 Resp 20 B/P (MAP) 97/41 (59) Pulse Ox 100 O2 Delivery Non Rebreather O2 Flow Rate 10.00 Capillary Refill : Greater Than 3 Seconds Blood Pressure Mean: 59 Height, Weight, BMI Height: 5'8.50" Weight: 223lbs. 4.0oz. 101.664174xg; 28.00 BMI Method:Stated General Appearance: No Apparent Distress, Chronically ill HEENT: PERRL/EOMI, Pharynx Normal Neck: Non Tender, Supple Respiratory: Lungs Clear, Normal Breath Sounds Cardiovascular: Regular Rate, Rhythm, No Murmur Gastrointestinal: Non Tender, Soft Back: Normal Inspection, No CVA Tenderness, No Vertebral Tenderness Extremity: Normal Range of Motion, Non Tender Neurologic/Psychiatric: Motor Weakness (Global), Other (Weeks and answer simple questions. Follow simple commands. Does appear to have some underlying confusion and does have history of dementia as well as Parkinson's disease.) Skin: normal color, warm/dry Focused Exam Lactate Level 02/12/21 21:28: Lactic Acid Level 3.74*H Lactic Acid Level Laboratory Tests Test 02/12/21 21:28 Lactic Acid Level 3.74 MMOL/L (0.50-2.00) *H Progress/Results/Core Measures Suspected Sepsis SIRS Temperature: Pulse: 86 Respiratory Rate: 20 Laboratory Tests 02/12/21 21:28: White Blood Count 19.8H Blood Pressure 97 /41 Mean: 59 02/12/21 21:28: Lactic Acid Level 3.74*H Laboratory Tests 02/12/21 21:28: Creatinine 2.11H, INR Comment 1.2, Platelet Count 173, Total Bilirubin 0.4 Results/Orders Lab Results Laboratory Tests Test 02/12/21 21:28 02/12/21 21:39 02/12/21 22:21 Range/Units White Blood Count 19.8 H 4.3-11.0 10^3/uL Red Blood Count 4.23 L 4.30-5.52 10^6/uL Hemoglobin 11.6 L 13.3-17.7 g/dL Hematocrit 39 L 40-54 % Mean Corpuscular Volume 92 80-99 fL Mean Corpuscular Hemoglobin 27 25-34 pg Mean Corpuscular Hemoglobin Concent 30 L 32-36 g/dL Red Cell Distribution Width 16.8 H 10.0-14.5 % Platelet Count 173 130-400 10^3/uL Mean Platelet Volume 11.7 9.0-12.2 fL Immature Granulocyte % (Auto) 1 % Neutrophils (%) (Auto) 85 H 42-75 % Lymphocytes (%) (Auto) 9 L 12-44 % Monocytes (%) (Auto) 5 0-12 % Eosinophils (%) (Auto) 0 0-10 % Basophils (%) (Auto) 0 0-10 % Neutrophils # (Auto) 16.8 H 1.8-7.8 10^3/uL Lymphocytes # (Auto) 1.9 1.0-4.0 10^3/uL Monocytes # (Auto) 1.0 0.0-1.0 10^3/uL Eosinophils # (Auto) 0.0 0.0-0.3 10^3/uL Basophils # (Auto) 0.0 0.0-0.1 10^3/uL Immature Granulocyte # (Auto) 0.1 0.0-0.1 10^3/uL Neutrophils % (Manual) 82 % Lymphocytes % (Manual) 13 % Monocytes % (Manual) 5 % Eosinophils % (Manual) 0 % Basophils % (Manual) 0 % Band Neutrophils 0 % Blood Morphology Comment NORMAL Prothrombin Time 15.4 H 12.2-14.7 SEC INR Comment 1.2 0.8-1.4 Activated Partial Thromboplast Time 31 24-35 SEC Sodium Level 140 135-145 MMOL/L Potassium Level 4.8 3.6-5.0 MMOL/L Chloride Level 106 98-107 MMOL/L Carbon Dioxide Level 17 L 21-32 MMOL/L Anion Gap 17 H 5-14 MMOL/L Blood Urea Nitrogen 43 H 7-18 MG/DL Creatinine 2.11 H 0.60-1.30 MG/DL Estimat Glomerular Filtration Rate 31 BUN/Creatinine Ratio 20 Glucose Level 159 H 70-105 MG/DL Lactic Acid Level 3.74 *H 0.50-2.00 MMOL/L Calcium Level 8.8 8.5-10.1 MG/DL Corrected Calcium 9.2 8.5-10.1 MG/DL Total Bilirubin 0.4 0.1-1.0 MG/DL Aspartate Amino Transf (AST/SGOT) 9 5-34 U/L Alanine Aminotransferase (ALT/SGPT) 7 0-55 U/L Alkaline Phosphatase 68 40-136 U/L Troponin I 0.042 H <0.028 NG/ML B-Type Natriuretic Peptide 41.2 <100.0 PG/ML Total Protein 6.7 6.4-8.2 GM/DL Albumin 3.5 3.2-4.5 GM/DL Blood Gas Puncture Site RRAD Blood Gas Patient Temperature 36.0 Arterial Blood pH 7.36 L 7.37-7.43 Arterial Blood Partial Pressure CO2 39 35-45 MMHG Arterial Blood Partial Pressure O2 127 H 79-93 MMHG Arterial Blood HCO3 22 L 23-27 MMOL/L Arterial Blood Total CO2 22.9 21.0-31.0 MMOL/L Arterial Blood Oxygen Saturation 99 94-100 % Arterial Blood Base Excess -3.2 L -2.5-2.5 MMOL/L Braydon Test YES-POS Blood Gas Ventilator Setting NO Blood Gas Inspired Oxygen 4L Urine Color YELLOW Urine Clarity SL CLOUDY Urine pH 5.5 5-9 Urine Specific [place] 1.025 H 1.016-1.022 Urine Protein NEGATIVE NEGATIVE Urine Glucose (UA) NEGATIVE NEGATIVE Urine Ketones TRACE H NEGATIVE Urine Nitrite NEGATIVE NEGATIVE Urine Bilirubin NEGATIVE NEGATIVE Urine Urobilinogen 0.2 < = 1.0 MG/DL Urine Leukocyte Esterase NEGATIVE NEGATIVE Urine RBC (Auto) 2+ H NEGATIVE Urine RBC 10-25 H /HPF Urine WBC 0-2 /HPF Urine Crystals NONE /LPF Urine Bacteria TRACE /HPF Urine Casts PRESENT /LPF Urine Hyaline Casts 0-2 H /LPF Urine Mucus NEGATIVE /LPF Urine Culture Indicated NO My Orders Orders - CHRISTINA BLOOM MD Cbc With Automated Diff (02/12/21:) Comprehensive Metabolic Panel (02/12/21:) Blood Culture (02/12/21:) Sputum Culture (02/12/21:) Urinalysis (02/12/21:) Urine Culture (02/12/21:) Protime With Inr (02/12/21:) Partial Thromboplastin Time (02/12/21:) Chest 1 View, Ap/Pa Only (02/12/21:) Ed Iv/Invasive Line Start (02/12/21:) Ekg Tracing (02/12/21:) Troponin I (02/12/21:) Vital Signs Adult Sepsis Patie Q15M (02/12/21:27) O2 (02/12/21:27) Remove Rings In Anticipation O (02/12/21:) Lactic Acid Analyzer (02/12/21:) BNP (02/12/21:27) Arterial Blood Gas (02/12/21 21:33) Arterial Blood Gas (02/12/21 21:30) Lactated Ringers (Lr 1000 Ml Iv Solution (02/12/21 21:36) Manual Differential (02/12/21 21:28) Ondansetron Injection (Zofran Injectio (02/12/21 22:15) Catheter(Urinary) Insert & Ass 03,15 (02/12/21 22:16) Piperacillin Sodium/Tazobactam (Zosyn Vi (02/12/21 23:15) Medications Given in ED Current Medications Medications Dose Ordered Sig/Eris Route Start Time Stop Time Status Last Admin Dose Admin Ondansetron HCl 4 mg ONCE ONCE IVP 02/12/21 22:15 02/12/21 22:16 DC 02/12/21 22:10 4 MG Vital Signs/I&O 02/12/21 02/12/21 02/12/21 21:21 21:21 21:30 Temp 36.0 Pulse 86 Resp 20 B/P (MAP) 97/41 (59) Pulse Ox 100 100 99 O2 Delivery Non Rebreather Non Rebreather Nasal Cannula O2 Flow Rate 10.00 10.00 4.00 Capillary Refill : Greater Than 3 Seconds Blood Pressure Mean: 59 Progress Note : Progress Note Seen and evaluated. IV, labs, EKG and chest x-ray ordered. Sepsis protocol initiated. Normal saline 1 L bolus initiated by EMS is continuing. LR 1 L bolus ordered. Monitor patient. 2224: Further evaluation and discussion with the reveals that he did not fall. CT canceled. Lactic acid is elevated. We will get catheter UA and keep Wall catheter in place. Does have findings concerning for sepsis. Troponin slightly elevated but is typical for him and he does have pacemaker. No chest pain currently. 2319: I attest to focus exam at this time. Patient does have elevated lactic acid and white count but UA and chest x-ray are negative. Unknown source. We will go ahead and initiate Zosyn 4.5 g IV. I did discuss the case with Dr. Elder. She accepts patient for admission, inpatient status to the ICU. Patient has improved after fluid admin istration and we will continue that. Findings and concerns discussed with patient and his and she verbalized understanding and agreement. ECG Initial ECG Impression Date: Feb 12, 2021 Initial ECG Impression Time: 21:24 Initial ECG Rate: 63 Initial ECG Comparisson: Unchanged (01/17/2021) Comment Ventricular paced rhythm with left axis deviation. No evidence of ST elevation [place]. Interpreted by me. Diagnostic Imaging Diagonstic Imaging: Xray Plain Films/CT/US/NM/MRI: chest Comments [facility] [place] NAME: [facility] REC#: [id number] PT STATUS: REG ER : 1945 PHYSICIAN: CHRISTINA BLOOM MD ADMIT DATE: 02/12/21/ER Draft Date of Exam:02/12/21 CHEST 1 VIEW, AP/PA ONLY INDICATION: Sepsis. COMPARISON: Prior examination from 01/24/2021. FINDINGS: The heart size is normal. Lungs are clear. There is no pleural effusion or pneumothorax. The mediastinum is unremarkable. Pacemaker overlies the left hemithorax. IMPRESSION: No acute cardiopulmonary abnormality. Dictated on workstation # [id number] Dict: 02/12/212154 Trans: 02/12/212158 [facility] [id number] Interpreted by: GUSTAVO ACEVEDO MD Electronically signed by: Departure Communication (Admissions) Time/Spoke to Admitting Phy: 23:19 Impression Primary Impression: Sepsis Qualified Codes: A41.9 - Sepsis, unspecified organism Additional Impressions: Lactic acidosis Acute renal insufficiency Dementia Qualified Codes: F03.90 - Unspecified dementia without behavioral disturbance Parkinsons disease Disposition: ADMITTED INPATIENT Condition: Stable Admissions Decision to Admit Reason: Admit from ER (General) Decision to Admit/Date: Feb 12, 2021 Time/Decision to Admit Time: 23:19 Departure-Patient Inst. Referrals: [facility] [place] ([place]/Family) Primary Care Physician CHRISTINA BLOOM MD Feb 12, 2021 22:02
[2021-02-12] MEDS ORDERED: ONDANSETRON 4 MG/2 ML (SDV) Z0FRAN IVP ONE (22:15)
[2021-02-12 22:32] LABS: BILIRUBIN,URINE NEGATIVE (NEGATIVE); CLARITY,URINE SL CLOUDY; COLOR,URINE YELLOW; GLUCOSE, URINE (UA) NEGATIVE (NEGATIVE); KETONES,URINE TRACE (NEGATIVE); LEUKOCYTE ESTERASE ,URINE NEGATIVE (NEGATIVE); NITRITE,URINE NEGATIVE (NEGATIVE); PH,URINE 5.5 (5-9); PROTEIN,URINE NEGATIVE (NEGATIVE)
[2021-02-12 22:41] LABS: BACTERIA,URINE TRACE /HPF; HYALINE CASTS, URINE 0-2 /LPF; WBC,URINE 0-2 /HPF
[2021-02-12] MEDS ORDERED: PIPERACILLIN SODIUM/TAZOBACTAM 4.5 GM in NS (IVPB) 100 ML IV ONE (23:15)
[2021-02-13] VITALS: BP 112/64
[2021-02-13] MEDS ORDERED: NS IV 1000 ML 1,000 ML ONE (00:08)
--- NOTE | 2021-02-13 00:29 | Tele-ICU Progress Note ---
Progress Note 75 y/o with Hx of parkinson's, HTN,, seizures , on olanzapine and clonazepam PRN. Has Hx of Afib , not on any AC. Dementia and HLD as well. was brought in for AMS and hypotension. Elevated wbc and LA in ED. No fall per . LA cleared 1. Sepsis source not clear u/a, cxr negative, abd benign IVF and Zosyn , blood cultures drawn 2. JEROME possibel prerenal along with some CKD continue IVF AND aBX, F/U CULTURES Viewed Pt on camera, no distress. If any fever , will need LP. Interventions Major-Sepsis - evaluation and management Electronically Focused Exam Lactate Level 02/12/21 21:28: Lactic Acid Level 3.74*H 02/12/21 23:40: Lactic Acid Level 1.86 Height, Weight, BMI Height: 5'8.50" Weight: 223lbs. 4.0oz. 101.031404pw; 28.00 BMI Method:Stated Lactic Acid Level Laboratory Tests Test 02/12/21 21:28 02/12/21 23:40 Lactic Acid Level 3.74 MMOL/L (0.50-2.00) *H 1.86 MMOL/L (0.50-2.00) MAIRA GONSALES MD Feb 13, 2021 00:29
[2021-02-13] MEDS ORDERED: ONDANSETRON 4 MG/2 ML (SDV) Z0FRAN IVP PRN (00:30)
[2021-02-13 04:47] LABS: LYMPHOCYTES # (AUTO) 1.7 10^3/uL (1.0-4.0); LYMPHOCYTES % (AUTO) 10 % (12-44)
[2021-02-13 04:49] LABS: BASOPHILS % (AUTO) 0 % (0-10); EOSINOPHILS % (AUTO) 0 % (0-10); HEMATOCRIT 37 % (40-54); HEMOGLOBIN 11.2 g/dL (13.3-17.7); MEAN CORPUSCULAR HEMOGLOBIN 27 pg (25-34); MEAN CORPUSCULAR HGB CONC 30 g/dL (32-36); MEAN CORPUSCULAR VOLUME 91 fL (80-99); MEAN PLATELET VOLUME 11.2 fL (9.0-12.2); MONOCYTES # (AUTO) 0.9 10^3/uL (0.0-1.0); MONOCYTES % (AUTO) 5 % (0-12); NEUTROPHILS # (AUTO) 14.7 10^3/uL (1.8-7.8); NEUTROPHILS % (AUTO) 84 % (42-75); PLATELET COUNT 127 10^3/uL (130-400); WHITE BLOOD COUNT 17.5 10^3/uL (4.3-11.0)
[2021-02-13] MEDS: PIPERACILLIN/TAZO 4.5 GM/NS 100 ML IV SCH ×6 (04:53→20:46)
[2021-02-13 05:05] LABS: PHOSPHORUS 3.8 MG/DL (2.3-4.7)
[2021-02-13 05:07] LABS: MAGNESIUM 2.1 MG/DL (1.6-2.4)
--- NOTE | 2021-02-13 05:07 | Tele-ICU Progress Note ---
Progress Note Low urine output, Pt with sepsis. 500 ml LR bolus ordered. Interventions Minor-Other: Declining U/O, sepsis Focused Exam Lactate Level 02/12/21 21:28: Lactic Acid Level 3.74*H 02/12/21 23:40: Lactic Acid Level 1.86 Height, Weight, BMI Height: 5'8.50" Weight: 223lbs. 4.0oz. 101.670207ge; 27.35 BMI Method:Stated MAIRA GONSALES MD Feb 13, 2021 05:07
[2021-02-13] MEDS ORDERED: LACTATED RINGERS 500 ML IV ONE (05:15)
[2021-02-13 05:34] LABS: POTASSIUM 5.1 MMOL/L (3.6-5.0)
[2021-02-13 05:36] LABS: CALCIUM 8.9 MG/DL (8.5-10.1)
[2021-02-13 05:40] LABS: CREATININE SERUM 1.84 MG/DL (0.60-1.30)
[2021-02-13] MEDS ORDERED: MAGNESIUM 1 GM/100 ML IVPB 100 ML IV SCH (06:00)
[2021-02-13] MEDS ORDERED: POTASSIUM CL 10MEQ/50ML IVPB 50 ML IV SCH (06:00)
[2021-02-13] MEDS ORDERED: KCL 20 MEQ TAB (K-DUR) PO SCH (06:00)
[2021-02-13] MEDS: NS IV 1000 ML 1,000 ML IV SCH ×4 (06:02→19:45)
--- NOTE | 2021-02-13 09:23 | Tele-ICU Progress Note ---
Progress Note (Tele-ICU Physician , Progress Note ) Available chart/ vitals / labs / Images reviewed Video assessment done using teleICU camera, rest of exam as per RN Discussed with RN , EXAM PER RN Events overnight : Afebrile I/O = pos 2 L Drips: ns 150 Pressors: , hemodynamically stable Consultants: Hospital course: 02/12 - to ICU from ER , AMS and hypotension A/P Hypotension - resolved with IVF - started empiriclaly on ABX - HR in 60s sinus- follow Hypothermis - onn amio - will check TSH Suspected infection - UA clear , cxr - ok - empiric zosyn given , follow cx h/o A fib - sinus now , not on AC ( /o ICH - SDH + SAH feb 2020) - on amio Hyperkalemia , hypothermia - will check costisol Encefalopathy -follow mental status , h/o SAD - off AC now resume Keppra , might need additional w/up if not improving ( as CT / LP ) JEROME - monitor with hydration CAD, nonobstructive, s/p pacemker Parkinson - resume meds CAROLYN 01/17 for right LE DVT - s/p IVC filter DM - ISS JOSE - ? on CPAP on Keppra = ? RN to check if info corect and resume Lines : periph (Central Line Necessity Reviewed) + Wall: + OG: Nutrition: npo Analgesia: Anxiety/ delirium VTE Prophylaxis: scd Stress Ulcer Prophylaxis: Plans in collaboration with bedside consultants and IM MDs. Discussed with RN to reach out if any questions or concerns A total of 36 minutes of critical care time was devoted to this patient today, required to treat and/or prevent further deterioration of critical care condition ( as above) . Focused Exam Lactate Level 02/12/21 21:28: Lactic Acid Level 3.74*H 02/12/21 23:40: Lactic Acid Level 1.86 Height, Weight, BMI Height: 5'8.50" Weight: 223lbs. 4.0oz. 101.962029kg; 27.35 BMI Method:Stated IGLESIA BECK MD Feb 13, 2021 09:23
[2021-02-13] MEDS ORDERED: clonazePAM 0.5 MG (KlonoPIN) TAB PO PRN (10:15)
[2021-02-13] MEDS ORDERED: AMLO-250 PO (10:42)
[2021-02-13] MEDS: SINEMET 25/100 (CARBIDOPA/LEVODOPA) TAB PO SCH ×2 (11:38→19:47)
[2021-02-13] MEDS: inSUlin ASPART (NovoLOG) 1 UNIT/0.01 ML (CHARGE PER UNIT) SC SCH ×3 (11:50→20:46)
--- NOTE | 2021-02-13 14:37 | History & Physical ---
FABIOLA GRIMM 02/13/21 1437: History of Present Illness History of Present Illness Reason for visit/HPI Hawk is a 75 year old male who presents with weakness and inability to walk. Yesterday at home he suddenly became weak and unable to walk, and another family member helped him safely to the ground and called an ambulance to take him to the hospital. He did not fall or hit his head. Seen this morning, reports that he is not in pain. reports that he has a sore on his bottom. She is concerned of infection. She reports he has a history of hospitalizations due to infectious, bleeding, and cardiovascular events. reports that he has home health. Date of Admission Feb 12, 2021 at 23:18 Date Seen by a Provider: Feb 13, 2021 Time Seen by a Provider: 09:30 I consulted on this patient on 02/13/21 14:31 Attending Physician Rasta Rosales MD Admitting Physician [facility] Consult Allergies and Home Medications Allergies Coded Allergies: Sulfa (Sulfonamide Antibiotics) (Verified Allergy, Unknown, 01/14/19) Patient Home Medication List Home Medication List Reviewed: Yes Amiodarone HCl (Pacerone) 200 Mg Tablet, 200 MG PO DAILY, (Reported) Entered as Reported by: ALEC DE OLIVEIRA on 11/16/20 1316 Last Action: Reviewed Amlodipine Besylate (Amlodipine Besylate) 5 Mg Tablet, 5 MG PO DAILY, (Reported) Entered as Reported by: HIREN BRUNO on 02/13/21 1042 Last Action: Reviewed Carbidopa/Levodopa (Carbidopa-Levodopa 25-100 Tab) 1 Each Tablet, 1 EA PO BID, (Reported) Entered as Reported by: ALEC DE OLIVEIRA on 11/16/20 1316 Last Action: Reviewed Clonazepam (Clonazepam) 0.5 Mg Tablet, 0.5 MG PO HS, (Reported) Entered as Reported by: ALEC DE OLIVEIRA on 01/18/21 1329 Last Action: Reviewed Clonazepam (Clonazepam) 0.5 Mg Tablet, 0.5 MG PO 0600,1200 PRN for ANXIETY, (Reported) Entered as Reported by: ALEC DE OLIVEIRA on 01/18/21 1329 Last Action: Reviewed Enalapril Maleate (Enalapril Maleate) 5 Mg Tablet, 5 MG PO BID, (Reported) Entered as Reported by: ALEC DE OLIVEIRA on 11/03/181119 Last Action: Reviewed Lactulose (Constulose) 10 Gm/15 Ml Solution, 30 ML PO DAILY, (Reported) Entered as Reported by: ALEC DE OLIVEIRA on 11/16/201315 Last Action: Reviewed Levetiracetam (Levetiracetam) 500 Mg Tablet, 500 MG PO BID, (Reported) Entered as Reported by: ALEC DE OLIVEIRA on 11/16/201315 Last Action: Reviewed Lovastatin (Lovastatin) 20 Mg Tablet, 20 MG PO HS, (Reported) Entered as Reported by: ALEC DE OLIVEIRA on 11/03/181119 Last Action: Reviewed Mirabegron (Myrbetriq) 50 Mg Tab.er.24h, 50 MG PO DAILY, (Reported) Entered as Reported by: ALEC DE OLIVEIRA on 11/16/201315 Last Action: Reviewed Mirtazapine (Mirtazapine) 7.5 Mg Tablet, 7.5 MG PO HS, (Reported) Entered as Reported by: ALEC DE OLIVEIRA on 01/18/211328 Last Action: Reviewed Multivitamin (Multivitamin) 1 Each Tablet, 1 EACH PO DAILY, (Reported) Entered as Reported by: ALEC DE OLIVEIRA on 01/18/21 1330 Last Action: Reviewed Olanzapine (Olanzapine) 10 Mg Tablet, 10 MG PO HS, (Reported) Entered as Reported by: ALEC DE OLIVEIRA on 11/16/201315 Last Action: Reviewed Olanzapine (Olanzapine) 5 Mg Tablet, 5 MG PO DAILY, (Reported) Entered as Reported by: ALEC DE OLIVEIRA on 11/16/201315 Last Action: Reviewed Tamsulosin HCl (Flomax) 0.4 Mg Cap, 0.4 MG PO BID, (Reported) Entered as Reported by: ALEC DE OLIVEIRA on 01/18/211328 Last Action: Reviewed Discontinued Medications Amlodipine Besylate (Amlodipine Besylate) 5 Mg Tablet, 5 MG PO DAILY Discontinued Reason: Duplicate Order Prescribed by: DIYA ELDER on 01/25/21 1018 Last Action: Discontinued Past Ezmqnfr-Wmcfwy-Hgibls Hx Patient Social History Marrital Status: Tobacco Use?: No Pt feels they are or have been: No Immunizations Up To Date Date of Influenza Vaccine: Mar 10, 2018 First/Initial COVID19 Vaccinat: JUN 2020 Second COVID19 Vaccination Shalom: JULY 2020 Tetanus Booster (TDap): Unknown Hepatitis A: No Hepatitis B: No PED Vaccines UTD: Yes Date of Pneumonia Vaccine: Jan 22, 2008 Seasonal Allergies Seasonal Allergies: No Current Status Communicates: Verbally Primary Language: Ukrainian Preferred Spoken Language: Ukrainian Past Medical History Surgeries: Orthopedic, Pacemaker Sleep Apnea Currently Using CPAP: No Currently Using BIPAP: No Atrial Fibrillation, High Cholesterol, Hypertension Dementia, Parkinson's Disease, Stroke Sexually Transmitted Disease: No Kidney Stones Chronic Constipation Arthritis, Chronic Back Pain Diabetes, Non-Insulin dep Anxiety, Depression Recent Skin Changes (sore on right buttock) Blood Disorders: No Adverse Reaction/Blood Tranf: No PMedHx: Sleep Apnea Obesity Stroke - September 2007 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 Mild regurgitation. Moderate Tricuspid regurgitation Parkinson disease Dementia Atrial fibrillation PSurgHx: Cardiac Cath - 2013, 2015 Pacemaker - 2007; Generatory Change 2015 Right Total Shoulder Right Knee Arthroscopy Colonoscopy Abdominal Lipoma Excision Family Medical History Reviewed Nursing Family Hx Cardiovascular disease 19 MOTHER Review of Systems Constitutional: no symptoms reported Gastrointestinal: no symptoms reported Skin: lesions (sore on right buttock) Psychiatric/Neurological: Tremors Physical Exam Vital Signs Vital Signs - First Documented 02/12/21 21:21 Temp 36.0 Pulse 86 Resp 20 B/P (MAP) 97/41 (59) Pulse Ox 100 O2 Delivery Non Rebreather O2 Flow Rate 10.00 Capillary Refill : Less Than 3 Seconds Height, Weight, BMI Height: 5'8.50" Weight: 223lbs. 4.0oz. [id number]; 27.35 BMI Method:Stated General Appearance: No Apparent Distress Respiratory: Lungs Clear, Normal Breath Sounds, No Accessory Muscle Use, No Respiratory Distress Cardiovascular: Regular Rate, Rhythm, Other (Edema of right foot) Gastrointestinal: Normal Bowel Sounds, Non Tender, Soft Neurologic/Psychiatric: Oriented x3, No Motor/Sensory Deficits Skin: Normal Color, Warm/Dry, Other (sore on right buttock measuring approximately 2X2cm ) Assessment/Plan Assessment and Plan Problems: (1) Peripheral edema Status: Chronic Assessment & Plan: Peripheral edema of right foot existing prior to admission: Known DVT of right leg. Continue to monitor. Patient is not on blood thinners due to history of intracranial bleeding. IVC filter has been placed. (2) Wound of skin Status: Acute Assessment & Plan: Wound of right buttock: Change positions to prevent further break-down of skin, consult wound care nurse, continue to monitor for size change and for signs of infection. Keep area clean. (3) Parkinson's disease Status: Chronic Assessment & Plan: Parkinson's disease: Continue home medications carbidopa 25mg/levodopa 100mg PO BID. (4) Physical debility Status: Acute Assessment & Plan: Physical debility, weakness and inability to walk: begin PT as tolerated. Consult social work to assess next steps with [facility]. (5) Leukocytosis Status: Acute Qualifiers: Qualified Codes: D72.829 - Elevated white blood cell count, unspecified Assessment & Plan: Leukocytosis: Continue piperacillin sod/tazobactam sod 4.5gm/sodium chloride 120ml @ 30ml/hr Q8H IV to empirically treat for infection. Re-check CBC to monitor WBC counts. (6) Dvt femoral (deep venous thrombosis) Status: Chronic Qualifiers: Qualified Codes: I82.511 - Chronic embolism and thrombosis of right femoral vein Assessment & Plan: Patient is not on blood thinners due to history of intracranial bleeding. IVC filter placed. Continue to monitor. (7) Atrial fibrillation Status: Chronic Qualifiers: Qualified Codes: I48.91 - Unspecified atrial fibrillation Assessment & Plan: Patient is not on blood thinners at this time due to history of intracranial bleeding. IVC filter has been placed. Continue amiodarone 200mcg for rhythm control. (8) Acute renal insufficiency Status: Acute Assessment & Plan: Monitor blood gas levels. Metabolic acidosis likely related to acute renal insufficiency. Continue with sodium chloride 1000ml @ 150mls/hr Q6H40M IV to improve renal function. Monitor for change in cardiac symptoms such as shortness of breath and peripheral edema. Monitor urine output and food and drink intake. (9) Dementia Status: Chronic Qualifiers: Qualified Codes: F03.90 - Unspecified dementia without behavioral disturbance Assessment & Plan: At this time, at baseline patient does not remember who people are at times, is not feeding himself, and is ambulatory. Continue to monitor, PT, and assist patient with activities of daily living. Consult with social work for next steps. Admission Diagnosis Physical debility with signs of infection Admission Status: Inpatient Order (span 2 midnights) Reason for Inpatient Admission: Physical debility with signs of infection RASTA ROSALES MD 02/14/21 1222: Allergies and Home Medications Allergies Coded Allergies: Sulfa (Sulfonamide Antibiotics) (Verified Allergy, Unknown, 01/14/19) Patient Home Medication List Amiodarone HCl (Pacerone) 200 Mg Tablet, 200 MG PO DAILY, (Reported) Entered as Reported by: ALEC DE OLIVEIRA on 11/16/20 1316 Last Action: Reviewed Amlodipine Besylate (Amlodipine Besylate) 5 Mg Tablet, 5 MG PO DAILY, (Reported) Entered as Reported by: HIREN BRUNO on 02/13/21 1042 Last Action: Reviewed Carbidopa/Levodopa (Carbidopa-Levodopa 25-100 Tab) 1 Each Tablet, 1 EA PO BID, (Reported) Entered as Reported by: ALEC DE OLIVEIRA on 11/16/20 1316 Last Action: Reviewed Clonazepam (Clonazepam) 0.5 Mg Tablet, 0.5 MG PO HS, (Reported) Entered as Reported by: ALEC DE OLIVEIRA on 01/18/21 1329 Last Action: Reviewed Clonazepam (Clonazepam) 0.5 Mg Tablet, 0.5 MG PO 0600,1200 PRN for ANXIETY, (Reported) Entered as Reported by: ALEC DE OLIVEIRA on 01/18/21 1329 Last Action: Reviewed Enalapril Maleate (Enalapril Maleate) 5 Mg Tablet, 5 MG PO BID, (Reported) Entered as Reported by: ALEC DE OLIVEIRA on 11/03/18 1120 Last Action: Reviewed Lactulose (Constulose) 10 Gm/15 Ml Solution, 30 ML PO DAILY, (Reported) Entered as Reported by: ALEC DE OLIVEIRA on 11/16/20 1316 Last Action: Reviewed Levetiracetam (Levetiracetam) 500 Mg Tablet, 500 MG PO BID, (Reported) Entered as Reported by: ALEC DE OLIVEIRA on 11/16/20 1316 Last Action: Reviewed Lovastatin (Lovastatin) 20 Mg Tablet, 20 MG PO HS, (Reported) Entered as Reported by: ALEC DE OLIVEIRA on 11/03/18 1120 Last Action: Reviewed Mirabegron (Myrbetriq) 50 Mg Tab.er.24h, 50 MG PO DAILY, (Reported) Entered as Reported by: ALEC DE OLIVEIRA on 11/16/20 1316 Last Action: Reviewed Mirtazapine (Mirtazapine) 7.5 Mg Tablet, 7.5 MG PO HS, (Reported) Entered as Reported by: ALEC DE OLIVEIRA on 01/18/21 1329 Last Action: Reviewed Multivitamin (Multivitamin) 1 Each Tablet, 1 EACH PO DAILY, (Reported) Entered as Reported by: ALEC DE OLIVEIRA on 01/18/21 1330 Last Action: Reviewed Olanzapine (Olanzapine) 10 Mg Tablet, 10 MG PO HS, (Reported) Entered as Reported by: ALEC DE OLIVEIRA on 11/16/20 131 Last Action: Reviewed Olanzapine (Olanzapine) 5 Mg Tablet, 5 MG PO DAILY, (Reported) Entered as Reported by: ALEC DE OLIVEIRA on 11/16/20 131 Last Action: Reviewed Tamsulosin HCl (Flomax) 0.4 Mg Cap, 0.4 MG PO BID, (Reported) Entered as Reported by: ALEC DE OLIVEIRA on 01/18/21 1329 Last Action: Reviewed Discontinued Medications Amlodipine Besylate (Amlodipine Besylate) 5 Mg Tablet, 5 MG PO DAILY Discontinued Reason: Duplicate Order Prescribed by: DIYA ELDER on 01/25/21 1018 Last Action: Discontinued Past Kibpmpl-Trfpaa-Pjxtpq Hx Family Medical History Cardiovascular disease 19 MOTHER Supervisory-Addendum Brief Verification & Attestation Participated in pt care: history, MDM, physical Personally performed: exam, history, MDM Care discussed with: Medical Student Procedures: n/a Verification and Attestation of Medical Student E/M Service A medical student performed and documented this service in my presence. I reviewed and verified all information documented by the medical student and made modifications to such information, when appropriate. I personally performed the physical exam and medical decision making. Rasta Rosales, Feb 14, 2021,12:22 FABIOLA GRIMM Feb 13, 2021 14:37 RASTA ROSALES MD Feb 14, 2021 12:22
[2021-02-13] MEDS: TAMSULOSIN 0.4 MG (FLOMAX) CAP PO SCH (17:21)
[2021-02-13] MEDS: MICONAZOLE 2% POWDER (DESENEX AF) 90 GM TOP SCH (19:47)
[2021-02-13] MEDS: OLANZapine 5 MG (ZyPREXA) TAB PO SCH (19:48)
[2021-02-13] MEDS: SIMvastatin 10 MG (ZOCOR) TAB PO SCH (20:09)
[2021-02-13] MEDS: MIRTAZAPINE 15 MG (REMERON) TAB PO SCH (20:09)
[2021-02-13] MEDS: clonazePAM 0.5 MG (KlonoPIN) TAB PO SCH (20:09)
[2021-02-14] MEDS: PIPERACILLIN/TAZO 4.5 GM/NS 100 ML IV SCH ×6 (04:23→20:22)
[2021-02-14] MEDS: NS IV 1000 ML 1,000 ML IV SCH ×4 (04:23→23:10)
[2021-02-14] MEDS: inSUlin ASPART (NovoLOG) 1 UNIT/0.01 ML (CHARGE PER UNIT) SC SCH ×4 (05:55→20:19)
[2021-02-14 06:03] LABS: HEMOGLOBIN 10.8 g/dL (13.3-17.7); MEAN PLATELET VOLUME 11.1 fL (9.0-12.2); WHITE BLOOD COUNT 11.6 10^3/uL (4.3-11.0)
[2021-02-14] MEDS: MULTIVIT W/MINERALS TAB (THERAGRAN M) PO SCH (06:06)
[2021-02-14] MEDS: TAMSULOSIN 0.4 MG (FLOMAX) CAP PO SCH ×2 (06:06→17:54)
[2021-02-14 06:13] LABS: POTASSIUM 4.4 MMOL/L (3.6-5.0)
[2021-02-14 06:15] LABS: CALCIUM 8.9 MG/DL (8.5-10.1)
[2021-02-14 06:19] LABS: CREATININE SERUM 1.32 MG/DL (0.60-1.30)
[2021-02-14] MEDS: AMIODARONE 200 MG (CORDARONE) TAB PO SCH (08:53)
[2021-02-14] MEDS: OLANZapine 5 MG (ZyPREXA) TAB PO SCH ×2 (08:53→20:19)
[2021-02-14] MEDS: SINEMET 25/100 (CARBIDOPA/LEVODOPA) TAB PO SCH ×2 (08:53→20:19)
[2021-02-14] MEDS ORDERED: NON-FORMULARY MEDICATION 1 EA EA (Mirabegron (Myrbetriq) 50 MG) PO SCH (09:00)
[2021-02-14] MEDS: MICONAZOLE 2% POWDER (DESENEX AF) 90 GM TOP SCH ×2 (09:06→20:19)
--- NOTE | 2021-02-14 11:19 | Physical Therapy Evaluation ---
PT Evaluation-General Medical Diagnosis Admission Date Feb 12, 2021 at 23:18 Medical Diagnosis: sepsis Onset Date: Feb 12, 2021 Therapy Diagnosis Therapy Diagnosis: generalized weakness/debility Height/Weight Height (Feet): 5 Height (Inches): 8.50 Weight (Pounds): 223 Weight (Ounces): 4.0 Precautions Precautions/Isolations: Aspiration, Fall Prevention, Standard Precautions, Pressure Ulcer Referral Physician: Campos Reason for Referral: Evaluation/Treatment Medical History Pertinent Medical History: Atrial Fib, Arthritis, CAD, CVA, DM, Dementia, HTN, Parkinson's Current History EMS secondary to hypotension, LOC and fall Reviewed History: Yes Social History Home: Single Level Current Living Status: Spouse Entry Into Home: Ramp Prior Prior Level of Function SCALE: Activities may be completed with or without assistive devices. 7-Bhlcqtfyrt-ltvkvnl completes the activity by him/herself with no assistance from a helper. 5-Set-up or Clean-up Assistance-helper sets up or cleans up; patient completes activity. [place] assists only prior to or following the activity. 4-Supervision or Touching Assistance-helper provides verbal cues and/or t ouching/steadying and/or contact guard assistance as patient completes activity. Assistance may be provided throughout the activity or intermittently. 3-Partial/Moderate Assistance-helper does LESS THAN HALF the effort. [place] lifts, holds or supports trunk or limbs, but provides less than half the effort. 2-Substantial/Maximal Assistance-helper does MORE THAN HALF the effort. [place] lifts or holds trunk or limbs and provides more than half the effort. 7-Tnuqpuxmk-cqhgne does ALL the effort. Patient does none of the effort to complete the activity. Or, the assistance of 2 or more helpers is required for the patient to complete the activity. If activity was not attempted, code reason: 7-Patient Refused. 9-Not Applicable-not attempted and the patient did not perform the activity before the current illness, exacerbation or injury. 10-Not Attempted due to Environmental Limitations-(lack of equipment, weather restraints, etc.). 88-Not Attempted due to Medical Conditions or Safety Concerns. Bed Mobility: 3 Transfers (B,C,W/C): 3 Gait: 3 Stairs: 9 Indoor Mobility (Ambulation): Needed Some Help Prior Devices Use: Manual wheelchair, Walker PT Evaluation-Current Subjective Patient in bed. Wakes and agrees to PT. Objective Patient Orientation: Confused Attachments: Wall Catheter, IV ROM/Strength ROM Lower Extremities bilateral LE rigid but WFL Strength Lower Extremities 3/5 grossly bilateral LE Integumentary/Posture Bladder Incontinence: Wall Cath Posture WFL Neuromuscular (Tone, Coordination, Reflexes) Parkinson's Sensory Vision: Wears Glasses Hearing: Functional Transfers Lying to Sitting/Side of Bed(Q: 2 Sit to Stand (QC): 3 Chair/Wnu-qj-Idgcp Xfer(QC): 3 Gait Does the Patient Walk?: Yes Mode of Locomotion: Both Anticipated Mode of Locomotion: Both Walk 10 feet (QC): 3 Walk 50 ft with 2 Turns(QC): 3 Walk 150 ft (QC): 3 Gait Assistive Device: FWW Comments/Gait Description Parkinson's gait sequence Balance Sitting Static: Fair Sitting Dynamic: Fair Standing Static: Fair Standing Dynamic: Fair Assessment/Needs 75 y.o. male, will be seen by skilled PT to address functional strength and mobility to improve current LOF. Up in recliner with chair alarm placed and activated. Rehab Potential: Guarded PT Fdc Goals Legal Billing Coordinator Goals PT Fdc Goals Time Frame: Feb 25, 2021 Roll Left & Right (QC): 3 Sit to Lying (QC): 3 Lying-Sitting on Side/Bed(QC): 3 Sit to Stand (QC): 3 Chair/Knh-by-Bdgzf Xfer(QC): 3 Toilet Transfer (QC): 3 Walk 10 feet (QC): 3 Walk 50ft with 2 Turns (QC): 3 Walk 150 ft (QC): 3 PT Plan Problem List Problem List: Activity Tolerance, Functional Strength, Safety, Balance, Gait, Transfer, Bed Mobility Treatment/Plan Treatment Plan: Continue Plan of Care Treatment Plan: Bed Mobility, Education, Functional Activity Nilda, Functional Strength, Gait, Safety, Therapeutic Exercise, Transfers Treatment Duration: Feb 25, 2021 Frequency: 6 times per week Estimated Hrs Per Day: .25 hour per day Time/GCodes Time In: 1000 Time Out: 1020 Total Billed Treatment Time: 20 Total Billed Treatment 1 visit EVModC 20 min LUCÍA HUSTON PT Feb 14, 2021 11:18
--- NOTE | 2021-02-14 12:04 | Pulmonary Progress Note ---
Subjective Date Seen by a Provider: Feb 14, 2021 Time Seen by a Provider: 12:00 Subjective/Events-last exam Patient admitted with severe sepsis with hypotension and decreased mental status. He has an underlying Parkinson's disease. Today he is awake alert and following simple commands. Blood pressure is improved. Urine output is satisfactory. I have made a video visit and discussed with the patient, patient's and RN. He offers no new complaints. Based on my examination I felt his encephalopathy is improving. He had 1 out of 2 gram-positive cocci in the blood most likely contaminant. Currently he is on IV Zosyn. Review of Systems ROS PER ATTENDING PHYSICIAN Sepsis Event Evaluation Height, Weight, BMI Height: 5'8.50" Weight: 223lbs. 4.0oz. 101.702954nl; 27.35 BMI Method:Stated Focused Exam Lactate Level 02/12/21 21:28: Lactic Acid Level 3.74*H 02/12/21 23:40: Lactic Acid Level 1.86 Exam Exam Patient acknowledged, consented, and participated in this virtual visit which was conducted using real time audio/video Vital Signs Date Time Temp Pulse Resp B/P (MAP) Pulse Ox O2 Delivery O2 Flow Rate FiO2 02/14/21 11:35 36.0 66 16 111/59 95 Room Air 02/14/21 08:00 Room Air 02/14/21 07:57 36.4 60 18 111/62 96 Room Air 02/14/21 07:52 60 02/14/21 04:08 36.6 60 17 129/60 95 Room Air 02/14/21 01:00 60 02/13/21 23:44 36.8 65 19 118/57 96 Room Air 02/13/21 20:46 36.6 59 18 136/67 94 Room Air 02/13/21 19:40 Room Air 02/13/21 19:01 65 02/13/21 17:35 Room Air 02/13/21 16:00 60 23 102/64 93 Room Air 02/13/21 13:11 36.1 02/13/21 12:39 60 I & O 02/14/21 07:00 Intake Total 3790 ml Output Total 800 ml Balance 2990 ml Height & Weight Height: 5'8.50" Weight: 223lbs. 4.0oz. 101.973951ui; 27.35 BMI Method:Stated General Appearance: No Apparent Distress HEENT: PERRL/EOMI, Pharynx Normal Neck: Non Tender, Supple Respiratory: Lungs Clear, Normal Breath Sounds, No Accessory Muscle Use, No Respiratory Distress Cardiovascular: Regular Rate, Rhythm, Other (Edema of right foot) Capillary Refill: Less Than 3 Seconds Extremity: Normal Range of Motion, Non Tender Neurologic/Psychiatric: Oriented x3, No Motor/Sensory Deficits Skin: Normal Color, Warm/Dry, Other (sore on right buttock measuring approximately 2X2cm ) Results Lab Laboratory Tests 02/12/21 21:28 02/13/21 04:42 02/14/21 05:50 Meds REVIEWED Radiology CXR REVIEWED Assessment/Plan Assessment/Plan 1. Severe sepsis clinically improving. 2. Metabolic encephalopathy improving 3. Leukocytosis improving. Recommendations 1. Continue IV Zosyn for now 2. Continue IV fluids at 100cc/h. 3. We will get a chest x-ray repeat tomorrow. 4. Discussed with the patient's RN, patient and patient's Critical Care: Critically Ill Patient Time spent with patient (mins): 25 CLARK FELICIANO MD Feb 14, 2021 12:04
--- NOTE | 2021-02-14 13:39 | Progress Note ---
FABIOLA GRIMM 02/14/21 1339: Subjective Subjective/Events-last exam Visiting with [place] this morning, he reports that he is feeling better than he was yesterday. He reports that he slept well. His was not present today. Did not respond when asked if he felt warm/hot. Review of Systems Neurological: Confusion Focused Exam Lactate Level 02/12/21 21:28: Lactic Acid Level 3.74*H 02/12/21 23:40: Lactic Acid Level 1.86 Objective Exam Last Set of Vital Signs Vital Signs Date Time Temp Pulse Resp B/P (MAP) Pulse Ox O2 Delivery O2 Flow Rate FiO2 02/14/21 11:35 36.0 66 16 111/59 95 Room Air 02/13/21 02:26 2.00 Capillary Refill : Less Than 3 Seconds I&O Intake and Output 02/14/21 00:00 Intake Total 4410 ml Output Total 675 ml Balance 3735 ml Intake Oral 250 ml IV Total 4160 ml Output Urine Total 675 ml # Bowel Movements 2 General: No Acute Distress HEENT: Atraumatic Lungs: Clear to Auscultation, Normal Air Movement Heart: Regular Rate Abdomen: Normal Bowel Sounds Extremities: Other (Peripheral edema present) Skin: Other (diaphoretic ) Results/Procedures Lab Laboratory Tests 02/13/21 16:41: Glucometer 126H 02/13/21 20:44: Glucometer 122H 02/14/21 05:49: Glucometer 98 02/14/21 05:50: White Blood Count 11.6H, Red Blood Count 4.03L, Hemoglobin 10.8L, Hematocrit 37L , Mean Corpuscular Volume 92, Mean Corpuscular Hemoglobin 27, Mean Corpuscular Hemoglobin Concent 29L, Red Cell Distribution Width 16.6H, Platelet Count 103L, Mean Platelet Volume 11.1, Percent Immature Platelet Fraction 4.7, Sodium Level 143, Potassium Level 4.4, Chloride Level 111H, Carbon Dioxide Level 21, Anion Gap 11, Blood Urea Nitrogen 30H, Creatinine 1.32H, Estimat Glomerular Filtration Rate 53, BUN/Creatinine Ratio 23, Glucose Level 99, Calcium Level 8.9 02/14/21 10:06: Glucometer 118H Microbiology 02/13/21 MRSA Screen - Final, Complete MRSA not isolated 02/12/21 Urine Culture - Preliminary, Resulted NO GROWTH 02/12/21 Blood Culture - Preliminary, Resulted No growth Assessment/Plan Assessment/Plan Admission Dx Physical debility with possible infection of unknown origin Admission Status: Inpatient Order (span 2 midnights) Reason for Inpatient Admission: Physical debility with infection of unknown origin (1) Acute renal insufficiency Status: Acute Assessment & Plan: Continue to monitor arterial blood gas levels. Continue with sodium chloride 1000ml @ 150ml/hr Q6H40M IV to continue to improve renal function. Monitor for peripheral edema or other signs of cardiac distress due to fluids. Some peripheral edema is present. Encourage eating and drinking to help maintain renal function when fluids are stopped in the future. (2) Parkinsons disease Status: Acute Assessment & Plan: Continue home medications of carbidopa 25mg/levodopa 100mg PO BID. (3) Peripheral edema Status: Chronic Assessment & Plan: Right foot peripheral edema: patient has known DVT in right leg. Patient is not on blood thinners due to history of intracranial bleeding. IVC filter has been placed. Monitor for increase in edema due to fluids patient is receiving. Continue PT as tolerated. (4) Wound of skin Status: Acute Assessment & Plan: Lesion of right buttock. Consult wound nurse. Continue position changes to prevent breakdown of skin, keep area clean. Monitor for signs of infection. (5) Atrial fibrillation Status: Chronic Assessment & Plan: Patient is not on blood thinners due to history of intracranial bleeding. IVC filter in place. Continue home medication of amiodarone 200mg for rhythm control. 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 Patient is not on blood thinners due to history of intracranial bleeding. IVC filter in place. Monitor for changes in edema, redness, or pain. Qualifiers: Qualified Codes: I82.511 - Chronic embolism and thrombosis of right femoral vein (7) Dementia Status: Chronic Assessment & Plan: Patient's baseline: at times will not remember the people around him, is not feeding himself, is ambulating. Assist patient with activities of daily living. Qualifiers: Qualified Codes: F03.90 - Unspecified dementia without behavioral disturbance (8) Physical debility Status: Acute Assessment & Plan: Continue with PT and working with social work to determine next steps. Assist patient with activities of daily living. (9) Hypotension Assessment & Plan: Blood pressure has improved, continue with sodium chloride 1000ml @ 150mls/hr Q6H40M IV. Monitor blood pressure. Monitor for edema and shortness of breath. (10) Leukocytosis Status: Acute Assessment & Plan: Leukocytosis has improved although still elevated. 17.5 to 11.6. Continue with piperacillin sod/tazobactam sod 4.5gm/sodium chloride 120ml @ 30ml/hr Q8H IV. Re-check CBC to continue to monitor WBC counts. Qualifiers: Qualified Codes: D72.829 - Elevated white blood cell count, unspecified Clinical Quality Measures Admission Status Admission Dx Physical debility with signs of infection DELIA GASCA MD 02/14/21 1517: Supervisory-Addendum Brief Verification & Attestation Participated in pt care: history, MDM, physical Personally performed: exam, history, MDM Care discussed with: Medical Student Procedures: n/a Verification and Attestation of Medical Student E/M Service A medical student performed and documented this service in my presence. I reviewed and verified all information documented by the medical student and made modifications to such information, when appropriate. I personally performed the physical exam and medical decision making. Delia Gasca, Feb 14, 2021,15:17 FABIOLA GRIMM Feb 14, 2021 13:39 DELIA GASCA MD Feb 14, 2021 15:17
--- NOTE | 2021-02-14 15:22 | Occupational Therapy Eval ---
OT Evaluation-General/PLF Medical Diagnosis Admission Date Feb 12, 2021 at 23:18 Medical Diagnosis: sepsis Onset Date: Feb 12, 2021 Therapy Diagnosis Therapy Diagnosis: Impaired strength, adls, rom, endurance Height/Weight Height (Feet): 5 Height (Inches): 8.50 Weight (Pounds): 223 Weight (Ounces): 4.0 Precautions Precautions/Isolations: Aspiration, Fall Prevention, Standard Precautions, Pressure Ulcer Referral Physician: Campos Medical History Pertinent Medical History: Atrial Fib, Arthritis, CAD, CVA, DM, Dementia, HTN, Parkinson's Current History Pt presents to ER following Hypotension, LOC, and fall. At baseline, he receives assists with all adls and has caregivers both during the day and at night. He is normally able to feed self. He uses a walker and is able to transfers with assistance. Per , pt has been receiving both OT and PT home health services for strengthening and would like to continue this. Reviewed History: Yes Social History Home: Single Level Current Living Status: Spouse Entry Into Home: Ramp Spouse (and [employer] workers) ADL-Prior Level of Function SCALE: Activities may be completed with or without assistive devices. 7-Yxifaxrufh-[id number] completes the activity by him/herself with no assistance from a helper. 5-Set-up or Clean-up Assistance-helper sets up or cleans up; patient completes activity. [place] assists only prior to or following the activity. 4-Supervision or Touching Assistance-helper provides verbal cues and/or touching/steadying and/or contact guard assistance as patient completes activity. Assistance may be provided throughout the activity or intermittently. 3-Partial/Moderate Assistance-helper does LESS THAN HALF the effort. [place] lifts, holds or supports trunk or limbs, but provides less than half the effort. 2-Substantial/Maximal Assistance-helper does MORE THAN HALF the effort. [place] lifts or holds trunk or limbs and provides more than half the effort. 3-Szikrkenn-hvsduv does ALL the effort. Patient does none of the effort to complete the activity. Or, the assistance of 2 or more helpers is required for the patient to complete the activity. If activity was not attempted, code reason: 7-Patient Refused. 9-Not Applicable-not attempted and the patient did not perform the activity before the current illness, exacerbation or injury. 10-Not Attempted due to Environmental Limitations-(lack of equipment, weather restraints, etc.). 88-Not Attempted due to Medical Conditions or Safety Concerns. Self Care: Dependent Functional Cognition: Dependent Drive Self: No OT Current Status Other Treatments Pt sleeping at OT arrival. Easy to rouse. Pt refuses any OOB activity. Requires encouragement from and therapist to participate. On last OT eval with this therapist (01/23/21), pt was min A for Sit<>Stand and was able to take small steps forward with walker and min a. Assist to manage walker, especially with turns. Pt with shuffling gait pattern, history of Parkinsons. Attempt at performing UE exercises at bed level, yet pt often closing eyes and requires cues to attend to task. Pt performed elbow/shoulder flexion only with cues after ~every 3 reps. Shoulder flexion only performed within Active range; ~75 degrees. Activity terminated due to poor attention/participation. Education OT Patient Education: Correct positioning, Exercise program, Instructions to caregiver, Progress toward Goal/Update tx plan, Purpose of tx/functional activities, Transfer techniques Teaching Recipient: Patient Teaching Methods: Discussion Response to Teaching: Unable to Comprehend, Reinforcement Needed OT Senior Care Goals Department Supervisor Goals Time Frame: Mar 03, 2021 Eating (QC): 4 Oral Hygiene (QC): 4 Toileting Hygiene (QC): 3 1. toilet transfer: CGA 2. participate in UE exercises in all planes to improve strength and endurance needed for functional transfers, grooming, and eating tasks. 1=Demonstrate adherence to instructed precautions during ADL tasks. 2=Patient will verbalize/demonstrate understanding of assistive devices/modifications for ADL. 3=Patient will improve strength/tolerance for activity to enable patient to perform ADL's. OT Education/Plan Problem List/Assessment Assessment: Decreased Activ Tolerance, Decreased Safety Aware, Decreased UE Strength, Impaired Bed Mobility, Impaired Cognition, Impaired Funct Balance, Impaired Self-Care Skills, Restricted Funct UE ROM Discharge Recommendations Plan/Recommendations: Continue POC Therapy Discharge Recommendati: 24 Hour Supervision, Assisted Living Treatment Plan/Plan of Care Treatment,Training & Education: Yes Patient would benefit from OT for education, treatment and training to promote independence in ADL's, mobility, safety and/or upper extremity function for ADL's. Plan of Care: ADL Retraining, Caregiver Training, Functional Mobility, UE Funct Exercise/Act Treatment Duration: Mar 03, 2021 Frequency: 5 times per week Estimated Hrs Per Day: .25 hour per day Rehab Potential: Poor Time/GCodes Start Time: 14:13 Stop Time: 14:28 Total Time Billed (hr/min): 15 Billed Treatment Time 1 visit, Khalida Diaz OT Feb 14, 2021 15:22
--- NOTE | 2021-02-14 19:05 | Physician Query Clarification ---
Physician Query-General Query to Physician: The medical record reflects the following clinical scenario: The patient, in the setting of History/Risk factors, Severe Sepsis, Parkinson's, Clinical Findings "suddenly became weak and unable to walk", GCS 14 on admission, Per physician (day 3)"today awake alert and following simple commands....I felt his encephalopathy is improving." Treatment Lactated Ringer's 1.5 L Bolus, Zosyn IV, frequent neuro assessments Question: Do you agree with the impression of Metabolic Encephalopathy per Dr. Fito Zarate? 1. Yes; will document Metabolic Encephalopathy, present on admission in the Progress Notes 2. No; will continue current documentation in the Progress Notes 3. Other; will document explanation of clinical findings 4. Clinically undetermined; no explanation for clinical findings Please clarify and document your clinical opinion in the Progress Notes and Discharge Summary including the definitive and/or presumptive diagnosis, (s uspected or probable), related to the above clinical findings. Please include clinical findings supporting your diagnosis. In responding to this query, please exercise your independent professional judgment. The purpose of this communication is to more accurately reflect the complexity of your patients condition. The fact that a question is asked does not imply that any particular answer is desired or expected. Please remember a lack of response to the above will prompt a phone page by CDI/coding staff Thank you for timely response to this clarification. Gloria Tsai MSN, RN Clinical Research Director [phone] [email or web address] PHYSICIAN RESPONSE: Based on the clinical findings in the record, please respond to the query above on this document as an addendum. Physician Response: Physician Response 1 If you have questions please contact: Orchid Grower: Ext: Thank you for your time and cooperation. Clinical Research Director/Orchid Grower This is a permanent part of the medical record GLORIA TSAI Feb 14, 2021 19:05 RASTA ROSALES MD Feb 15, 2021 08:12
[2021-02-14] MEDS: clonazePAM 0.5 MG (KlonoPIN) TAB PO SCH (20:19)
[2021-02-14] MEDS: MIRTAZAPINE 15 MG (REMERON) TAB PO SCH (20:19)
[2021-02-14] MEDS: SIMvastatin 10 MG (ZOCOR) TAB PO SCH (20:19)
[2021-02-15] MEDS: NS IV 1000 ML 1,000 ML IV SCH (02:27)
[2021-02-15] MEDS: PIPERACILLIN/TAZO 4.5 GM/NS 100 ML IV SCH ×2 (05:15)
[2021-02-15] MEDS: inSUlin ASPART (NovoLOG) 1 UNIT/0.01 ML (CHARGE PER UNIT) SC SCH ×4 (05:30→21:00)
[2021-02-15 05:57] LABS: HEMOGLOBIN 10.2 g/dL (13.3-17.7); MEAN PLATELET VOLUME 11.3 fL (9.0-12.2); WHITE BLOOD COUNT 11.2 10^3/uL (4.3-11.0)
[2021-02-15 06:18] LABS: CALCIUM 8.5 MG/DL (8.5-10.1)
[2021-02-15] MEDS: MULTIVIT W/MINERALS TAB (THERAGRAN M) PO SCH (06:40)
[2021-02-15] MEDS: TAMSULOSIN 0.4 MG (FLOMAX) CAP PO SCH ×2 (06:40→17:21)
--- NOTE | 2021-02-15 08:56 | Pulmonary Progress Note ---
Subjective Date Seen by a Provider: Feb 15, 2021 Time Seen by a Provider: 08:55 Subjective/Events-last exam He is sleep but arousable. Denies sob, cough or wheezing. bp improved. No new complaints. C/S are negative so far. Review of Systems ROS PER ATTENDING PHYSICIAN Sepsis Event Evaluation Height, Weight, BMI Height: 5'8.50" Weight: 223lbs. 4.0oz. 101.551457al; 27.35 BMI Method:Stated Focused Exam Lactate Level 02/12/21 21:28: Lactic Acid Level 3.74*H 02/12/21 23:40: Lactic Acid Level 1.86 Exam Exam Patient acknowledged, consented, and participated in this virtual visit which was conducted using real time audio/video Vital Signs Date Time Temp Pulse Resp B/P (MAP) Pulse Ox O2 Delivery O2 Flow Rate FiO2 02/15/21 08:00 36.6 63 18 113/59 96 Room Air 02/15/21 04:19 36.4 64 20 104/64 95 Room Air 02/15/21 00:14 36.4 66 20 130/84 94 Room Air 02/14/21 20:20 Room Air 02/14/21 20:05 37.3 67 24 126/72 96 Room Air 02/14/21 15:45 37.0 61 20 160/77 98 Room Air 02/14/21 11:35 36.0 66 16 111/59 95 Room Air I & O 02/15/21 07:00 Intake Total 2635 ml Output Total 1025 ml Balance 1610 ml Height & Weight Height: 5'8.50" Weight: 223lbs. 4.0oz. 101.427271va; 27.35 BMI Method:Stated General Appearance: No Apparent Distress HEENT: PERRL/EOMI, Pharynx Normal Neck: Non Tender, Supple Respiratory: Lungs Clear, Normal Breath Sounds, No Accessory Muscle Use, No Respiratory Distress Cardiovascular: Regular Rate, Rhythm, Other (Edema of right foot) Capillary Refill: Less Than 3 Seconds Extremity: Normal Range of Motion, Non Tender Neurologic/Psychiatric: Oriented x3, No Motor/Sensory Deficits Skin: Normal Color, Warm/Dry, Other (sore on right buttock measuring cecily roximately 2X2cm ) Results Lab Laboratory Tests 02/14/21 05:50 02/15/21 05:47 Meds reviewed Assessment/Plan Assessment/Plan 1. Severe sepsis clinically improving. 2. Metabolic encephalopathy improving 3. Leukocytosis improving. Recommendations 1. Continue IV Zosyn for now 2. Decrease IVF to 80 mls/hr 3. No Need for cxr as his O2 sats good on Room air 4. Discussed with the patient's RN, patient and the patient Critical Care: Critically Ill Patient Time spent with patient (mins): 25 CLARK FELICIANO MD Feb 15, 2021 08:56
[2021-02-15] MEDS: OLANZapine 5 MG (ZyPREXA) TAB PO SCH ×2 (09:34→19:52)
[2021-02-15] MEDS: SINEMET 25/100 (CARBIDOPA/LEVODOPA) TAB PO SCH ×2 (09:34→19:53)
[2021-02-15] MEDS: AMIODARONE 200 MG (CORDARONE) TAB PO SCH (09:35)
[2021-02-15] MEDS: MICONAZOLE 2% POWDER (DESENEX AF) 90 GM TOP SCH ×2 (09:35→19:53)
--- NOTE | 2021-02-15 11:13 | Occupational Ther Daily Note ---
OT Current Status-Daily Note Subjective Pt alert, lying in bed. Nrsg in room. Pt requests to use toilet. Mental Status/Objective Patient Orientation: Person, Confused Attachments: IV ADL-Treatment Assist x2 for supine to EOB. Assist x2 for SPT from bed to BSC. Assist x2 to complete clothing manipulation and hygiene. Pt able to stand with assist though unable to complete tasks by self. Pt ambulated x2 from BSC to chair. Nrsg feeding pt. After session, pt sitting in recliner with nrsg present. Safety measures in place. All needs met in room. Therapy Code Descriptions/Definitions Functional [place] Measure: 0=Not Assessed/NA 4=Minimal Assistance 1=Total Assistance 5=Supervision or Setup 2=Maximal Assistance 6=Modified [place] 3=Moderate Assistance 7=Complete IndependenceSCALE: Activities may be completed with or without assistive devices. 7-Yskkjnkugu-hpqlqzc completes the activity by him/herself with no assistance from a helper. 5-Set-up or Clean-up Assistance-helper sets up or cleans up; patient completes activity. [place] assists only prior to or following the activity. 4-Supervision or Touching Assistance-helper provides verbal cues and/or touching/steadying and/or contact guard assistance as patient completes activity. Assistance may be provided throughout the activity or intermittently. 3-Partial/Moderate Assistance-helper does LESS THAN HALF the effort. [place] lifts, holds or supports trunk or limbs, but provides less than half the effort. 2-Substantial/Maximal Assistance-helper does MORE THAN HALF the effort. [place] lifts or holds trunk or limbs and provides more than half the effort. 6-Jwiazmztg-uorqao does ALL the effort. Patient does none of the effort to complete the activity. Or, the assistance of 2 or more helpers is required for the patient to complete the activity. If activity was not attempted, code reason: 7-Patient Refused. 9-Not Applicable-not attempted and the patient did not perform the activity before the current illness, exacerbation or injury. 10-Not Attempted due to Environmental Limitations-(lack of equipment, weather restraints, etc.). 88-Not Attempted due to Medical Conditions or Safety Concerns. OT Regulatory Compliance Coordinator Goals Regulatory Compliance Coordinator Goals Time Frame: Mar 03, 2021 Eating (QC): 4 Oral Hygiene (QC): 4 Toileting Hygiene (QC): 3 1. toilet transfer: CGA 2. participate in UE exercises in all planes to improve strength and endurance needed for functional transfers, grooming, and eating tasks. 1=Demonstrate adherence to instructed precautions during ADL tasks. 2=Patient will verbalize/demonstrate understanding of assistive devic es/modifications for ADL. 3=Patient will improve strength/tolerance for activity to enable patient to perform ADL's. OT Education/Plan Problem List/Assessment Assessment: Decreased Safety Aware, Impaired Cognition, Impaired Self-Care Skills Discharge Recommendations Plan/Recommendations: Continue POC Treatment Plan/Plan of Care Patient would benefit from OT for education, treatment and training to promote i ndependence in ADL's, mobility, safety and/or upper extremity function for ADL's. Plan of Care: ADL Retraining, Caregiver Training, Functional Mobility, UE Funct Exercise/Act Treatment Duration: Mar 03, 2021 Frequency: 5 times per week Estimated Hrs Per Day: .25 hour per day Rehab Potential: Poor Time/GCodes Start Time: 09:00 Stop Time: 09:12 Total Time Billed (hr/min): 12 Billed Treatment Time 1 visit-ADL 1 (12 min) ANASTACIA ERICKSON Feb 15, 2021 11:13
--- NOTE | 2021-02-15 13:18 | Progress Note ---
FABIOLA GRIMM 02/15/21 1318: Subjective Subjective/Events-last exam Seen this morning, reported that he was feeling well and was not in any pain. reported that she would like wound care to come and dress the lesion on his right buttock. Focused Exam Lactate Level 02/12/21 21:28: Lactic Acid Level 3.74*H 02/12/21 23:40: Lactic Acid Level 1.86 Objective Exam Last Set of Vital Signs Vital Signs Date Time Temp Pulse Resp B/P (MAP) Pulse Ox O2 Delivery O2 Flow Rate FiO2 02/15/21 12:00 36.4 69 18 116/56 96 Room Air 02/13/21 02:26 2.00 Capillary Refill : Less Than 3 Seconds I&O Intake and Output 02/15/21 00:00 Intake Total 2515 ml Output Total 1050 ml Balance 1465 ml Intake Oral 375 ml IV Total 2140 ml Output Urine Total 1050 ml General: No Acute Distress HEENT: Atraumatic Lungs: Clear to Auscultation, Normal Air Movement Heart: Regular Rate, Other (+2 systolic murmur present) Abdomen: Normal Bowel Sounds, Soft Extremities: Other (+2 peripheral edema of lower legs/feet bilaterally) Results/Procedures Lab Laboratory Tests 02/14/21 15:49: Glucometer 125H 02/14/21 20:13: Glucometer 102 02/15/21 05:27: Glucometer 86 02/15/21 05:47: White Blood Count 11.2H, Red Blood Count 3.71L, Hemoglobin 10.2L, Hematocrit 34L , Mean Corpuscular Volume 92, Mean Corpuscular Hemoglobin 28, Mean Corpuscular Hemoglobin Concent 30L, Red Cell Distribution Width 16.7H, Platelet Count 109L, Mean Platelet Volume 11.3, Percent Immature Platelet Fraction 4.6, Sodium Level 143, Potassium Level 4.0, Chloride Level 113H, Carbon Dioxide Level 19L, Anion Gap 11, Blood Urea Nitrogen 23H, Creatinine 1.00, Estimat Glomerular Filtration Rate 73, BUN/Creatinine Ratio 23, Glucose Level 85, Calcium Level 8.5 02/15/21 11:18: Glucometer 119H Microbiology 02/13/21 MRSA Screen - Final, Complete MRSA not isolated 02/12/21 Urine Culture - Final, Complete NO GROWTH 02/12/21 Blood Culture - Preliminary, Resulted No growth Assessment/Plan Assessment/Plan Admission Dx Physical debility and signs of infection Admission Status: Inpatient Order (span 2 midnights) Reason for Inpatient Admission: Physical debility and signs of infection (1) Acute renal insufficiency Status: Acute Assessment & Plan: Continue to monitor arterial blood gas levels. Continue with sodium chloride 1000ml @ 150ml/hr Q6H40M IV to continue to improve renal function. Monitor for peripheral edema or other signs of cardiac distress due to fluids. Some peripheral edema is present. Encourage eating and drinking to help maintain renal function when fluids are stopped in the future. 02/15/2021: Cease IV fluids since kidney function is improving. Continue to encourage eating and drinking to prevent decline in renal function. Continue to monitor kidney function labs. (2) Parkinsons disease Status: Acute Assessment & Plan: Continue home medications of carbidopa 25mg/levodopa 100mg PO BID. (3) Peripheral edema Status: Chronic Assessment & Plan: Right foot peripheral edema: patient has known DVT in right leg. Patient is not on blood thinners due to history of intracranial bleeding. IVC filter has been placed. Monitor for increase in edema due to fluids patient is receiving. Continue PT as tolerated. (4) Wound of skin Status: Acute Assessment & Plan: Lesion of right buttock. Consult wound nurse. Continue position changes to prevent breakdown of skin, keep area clean. Monitor for signs of infection. (5) Atrial fibrillation Status: Chronic Assessment & Plan: Patient is not on blood thinners due to history of intracranial bleeding. IVC filter in place. Continue home medication of amiodarone 200mg for rhythm control. 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 Patient is not on blood thinners due to history of intracranial bleeding. IVC filter in place. Monitor for changes in edema, redness, or pain. Qualifiers: Qualified Codes: I82.511 - Chronic embolism and thrombosis of right femoral vein (7) Dementia Status: Chronic Assessment & Plan: Patient's baseline: at times will not remember the people around him, is not feeding himself, is ambulating. Assist patient with activities of daily living. Qualifiers: Qualified Codes: F03.90 - Unspecified dementia without behavioral disturbance (8) Physical debility Status: Acute Assessment & Plan: Continue with PT and working with social work to determine next steps. Assist patient with activities of daily living. (9) Hypotension Assessment & Plan: Blood pressure has improved, continue with sodium chloride 1000ml @ 150mls/hr Q6H40M IV. Monitor blood pressure. Monitor for edema and shortness of breath. 02/15/2021: Cease fluids, continue to monitor blood pressure. Patient is not hypotensive at this time. (10) Leukocytosis Status: Acute Assessment & Plan: Leukocytosis has improved although still elevated. 17.5 to 11.6. Continue with piperacillin sod/tazobactam sod 4.5gm/sodium chloride 120ml @ 30ml/hr Q8H IV. Re-check CBC to continue to monitor WBC counts. 02/15/2021: Cease IV antibiotics and start PO antibiotics. Re-check CBC to monitor WBC counts. Qualifiers: Qualified Codes: D72.829 - Elevated white blood cell count, unspecified Clinical Quality Measures Admission Status Admission Dx Physical debility with signs of infection DELIA GASCA MD 02/15/21 1455: Supervisory-Addendum Brief Verification & Attestation Participated in pt care: history, MDM, physical Personally performed: exam, history Care discussed with: Medical Student Procedures: n/a Verification and Attestation of Medical Student E/M Service I saw patient today and repeated the history and exam and my findings match those documented by the medical student. I reviewed and verified all information documented by the medical student and made modifications to such information, when appropriate. I personally performed the physical exam and medical decision making. Delia Gasca, Feb 15, 2021,14:55 FABIOLA GRIMM Feb 15, 2021 13:18 DELIA GASCA MD Feb 15, 2021 14:55
--- NOTE | 2021-02-15 15:12 | Physical Therapy Daily Note ---
PT Daily Note-Current Subjective Patient in bed pre tx, agrees to PT reluctantly, has no complaints of pain. Appearance Patient in bed post tx with nurse call, phone, tray, all needs met. Mental Status Patient Orientation: Person, Confused Transfers SCALE: Activities may be completed with or without assistive devices. 3-Pzskslbsyn-nxawvho completes the activity by him/herself with no assistance from a helper. 5-Set-up or Clean-up Assistance-helper sets up or cleans up; patient completes activity. [place] assists only prior to or following the activity. 4-Supervision or Touching Assistance-helper provides verbal cues and/or touching/steadying and/or contact guard assistance as patient completes activity. Assistance may be provided throughout the activity or intermittently. 3-Partial/Moderate Assistance-helper does LESS THAN HALF the effort. [place] lifts, holds or supports trunk or limbs, but provides less than half the effort. 2-Substantial/Maximal Assistance-helper does MORE THAN HALF the effort. [place] lifts or holds trunk or limbs and provides more than half the effort. 3-Iikbxrdiq-mtduea does ALL the effort. Patient does none of the effort to complete the activity. Or, the assistance of 2 or more helpers is required for the patient to complete the activity. If activity was not attempted, code reason: 7-Patient Refused. 9-Not Applicable-not attempted and the patient did not perform the activity before the current illness, exacerbation or injury. 10-Not Attempted due to Environmental Limitations-(lack of equipment, weather restraints, etc.). 88-Not Attempted due to Medical Conditions or Safety Concerns. Roll Left & Right (QC): 2 Sit to Lying (QC): 2 Lying to Sitting/Side of Bed(Q: 2 Sit to Stand (QC): 3 Chair/Zvw-cj-Tardh Xfer(QC): 3 After sitting on the side of the bed patient needs almost max assist to maintain balance, leans to the left side, eventually after cues for positioning he impro ves. Gait Training Distance: 40', 20' Walk 10 feet (QC): 3 Gait Persons Needed: 1 Gait Assistive Device: FWW Patient ambulates from the opposite side of the bed out into the hallway and states he cannot go further, a chair is obtained for him and he sits and rests and then ambulates the rest of the way to the bed. Patient ambulates slowly, has festinating gait, needs assist to guide the walker, gets in a hurry to sit and has poor safety awareness. Treatments bed mobility and transfers, ambulation Assessment Current Status: Poor Progress decrease in distance of ambulation PT Fpc Goals Fpc Goals PT [place] Layer Helper Goals Time Frame: Feb 25, 2021 Roll Left & Right (QC): 3 Sit to Lying (QC): 3 Lying-Sitting on Side/Bed(QC): 3 Sit to Stand (QC): 3 Chair/Leq-ub-Pmdeu Xfer(QC): 3 Toilet Transfer (QC): 3 Walk 10 feet (QC): 3 Walk 50ft with 2 Turns (QC): 3 Walk 150 ft (QC): 3 PT Plan Problem List Problem List: Activity Tolerance, Functional Strength, Safety, Balance, Gait, Transfer, Bed Mobility, ROM Treatment/Plan Treatment Plan: Continue Plan of Care Treatment Plan: Bed Mobility, Education, Functional Activity Nilda, Functional Strength, Gait, Safety, Therapeutic Exercise, Transfers Treatment Duration: Feb 25, 2021 Frequency: 6 times per week Estimated Hrs Per Day: .25 hour per day Safety Risks/Education Patient Education: Gait Training, Transfer Techniques, Correct Positioning, Safety Issues Teaching Recipient: Patient Teaching Methods: Demonstration, Discussion Response to Teaching: Reinforcement Needed Time/GCodes Time In: 1430 Time Out: 1445 Total Billed Treatment Time: 15 Total Billed Treatment 1 visit GT 15' MARILEE ROMO PT Feb 15, 2021 15:12
[2021-02-15] MEDS: clonazePAM 0.5 MG (KlonoPIN) TAB PO SCH (19:52)
[2021-02-15] MEDS: CEFDINIR 300 MG (OMNICEF) CAP PO SCH (19:52)
[2021-02-15] MEDS: SIMvastatin 10 MG (ZOCOR) TAB PO SCH (19:52)
[2021-02-15] MEDS: MIRTAZAPINE 15 MG (REMERON) TAB PO SCH (19:53)
[2021-02-16] MEDS: MULTIVIT W/MINERALS TAB (THERAGRAN M) PO SCH (05:34)
[2021-02-16] MEDS: TAMSULOSIN 0.4 MG (FLOMAX) CAP PO SCH ×2 (05:34→18:29)
[2021-02-16] MEDS: inSUlin ASPART (NovoLOG) 1 UNIT/0.01 ML (CHARGE PER UNIT) SC SCH ×4 (05:34→21:40)
[2021-02-16 06:16] LABS: MEAN PLATELET VOLUME 11.8 fL (9.0-12.2)
[2021-02-16 06:18] LABS: HEMOGLOBIN 9.9 g/dL (13.3-17.7); WHITE BLOOD COUNT 10.7 10^3/uL (4.3-11.0)
[2021-02-16 06:33] LABS: CALCIUM 8.6 MG/DL (8.5-10.1); CREATININE SERUM 1.06 MG/DL (0.60-1.30); POTASSIUM 3.9 MMOL/L (3.6-5.0)
[2021-02-16] MEDS: MICONAZOLE 2% POWDER (DESENEX AF) 90 GM TOP SCH ×2 (09:20→21:40)
[2021-02-16] MEDS: OLANZapine 5 MG (ZyPREXA) TAB PO SCH ×2 (09:20→21:37)
[2021-02-16] MEDS: CEFDINIR 300 MG (OMNICEF) CAP PO SCH ×2 (09:20→21:37)
[2021-02-16] MEDS: SINEMET 25/100 (CARBIDOPA/LEVODOPA) TAB PO SCH ×2 (09:20→21:37)
[2021-02-16] MEDS: AMIODARONE 200 MG (CORDARONE) TAB PO SCH (09:20)
--- NOTE | 2021-02-16 09:34 | Pulmonary Progress Note ---
Subjective Date Seen by a Provider: Feb 16, 2021 Time Seen by a Provider: 09:34 Subjective/Events-last exam he is awake ,alert, but weak as expected due to parkinsons disease, but encephalopathy improved. IVF d/c'd. on po antibiotics. Review of Systems ROS PER ATTENDING PHYSICIAN Sepsis Event Evaluation Height, Weight, BMI Height: 5'8.50" Weight: 223lbs. 4.0oz. 101.728689uw; 27.35 BMI Method:Stated Exam Exam Patient acknowledged, consented, and participated in this virtual visit which was conducted using real time audio/video Vital Signs Date Time Temp Pulse Resp B/P (MAP) Pulse Ox O2 Delivery O2 Flow Rate FiO2 02/16/21 08:19 36.4 66 20 114/67 94 Room Air 02/16/21 04:21 37.0 65 19 112/68 96 Room Air 02/16/21 00:12 36.4 64 18 114/71 97 Room Air 02/15/21 19:50 Room Air 02/15/21 19:43 36.5 60 20 121/70 97 Room Air 02/15/21 16:57 36.4 60 20 133/83 97 Room Air 02/15/21 12:00 36.4 69 18 116/56 96 Room Air I & O 02/16/21 07:00 Intake Total 2460 ml Output Total 700 ml Balance 1760 ml Height & Weight Height: 5'8.50" Weight: 223lbs. 4.0oz. [id number]; 27.35 BMI Method:Stated General Appearance: No Apparent Distress HEENT: PERRL/EOMI, Pharynx Normal Neck: Non Tender, Supple Respiratory: Lungs Clear, Normal Breath Sounds, No Accessory Muscle Use, No Respiratory Distress Cardiovascular: Regular Rate, Rhythm, Other (Edema of right foot) Capillary Refill: Less Than 3 Seconds Extremity: Normal Range of Motion, Non Tender Neurologic/Psychiatric: Oriented x3, No Motor/Sensory Deficits Skin: Normal Color, Warm/Dry, Other (sore on right buttock measuring approximately 2X2cm ) Results Lab Laboratory Tests 02/15/21 05:47 02/16/21 05:56 Meds reviewed Assessment/Plan Assessment/Plan 1. Severe sepsis clinically improved 2. Metabolic encephalopathy resolved 3. Leukocytosis improving. 4. Deconditioning Recommendations 1. Agree with po antibiotics. 2. OK to discharge from pulmonary point of view. Suggest to place patient in SNF. 3. Video visit made and discussed with pt and professor of chemical engineering: Critically Ill Patient Time spent with patient (mins): 25 CLARK FELICIANO MD Feb 16, 2021 09:34
--- NOTE | 2021-02-16 10:47 | Occupational Ther Daily Note ---
OT Current Status-Daily Note Subjective Pt asleep, laying in bed when therapy entered. Pt woke when call of name. Pt agreed to therapy. Mental Status/Objective Patient Orientation: Person, Confused Attachments: IV ADL-Treatment Pt agreed to complete oral hygiene in bed. Throughout session, pt in and out of sleep. After set up of toothpaste on toothbrush, pt unable to follow commands of brushing teeth, therapist provided Mod A with task. Pt unable to follow commands of spitting the water out after rinsing mouth. Therapy Code Descriptions/Definitions Functional [place] Measure: 0=Not Assessed/NA 4=Minimal Assistance 1=Total Assistance 5=Supervision or Setup 2=Maximal Assistance 6=Modified [place] 3=Moderate Assistance 7=Complete IndependenceSCALE: Activities may be completed with or without assistive devices. 8-Oynovrxssk-afzvpxs completes the activity by him/herself with no assistance from a helper. 5-Set-up or Clean-up Assistance-helper sets up or cleans up; patient completes activity. [place] assists only prior to or following the activity. 4-Supervision or Touching Assistance-helper provides verbal cues and/or touching/steadying and/or contact guard assistance as patient completes activity. Assistance may be provided throughout the activity or intermittently. 3-Partial/Moderate Assistance-helper does LESS THAN HALF the effort. [place] lifts, holds or supports trunk or limbs, but provides less than half the effort. 2-Substantial/Maximal Assistance-helper does MORE THAN HALF the effort. [place] lifts or holds trunk or limbs and provides more than half the effort. 3-Yungmwxve-aqrxor does ALL the effort. Patient does none of the effort to complete the activity. Or, the assistance of 2 or more helpers is required for the patient to complete the activity. If activity was not attempted, code reason: 7-Patient Refused. 9-Not Applicable-not attempted and the patient did not perform the activity before the current illness, exacerbation or injury. 10-Not Attempted due to Environmental Limitations-(lack of equipment, weather restraints, etc.). 88-Not Attempted due to Medical Conditions or Safety Concerns. Other Treatment Skilled instruction provided to pt of BUE exercise of wrist flexion/extension. Pt unable to return demonstration and fell back to sleep. Pt's entered room. After therapy, pt laying in bed. All needs met and call light in reach. Education OT Patient Education: Modified ADL techniques Teaching Recipient: Patient Teaching Methods: Demonstration Response to Teaching: Unable to Return Demonstration, Unable to Comprehend OT Mcc Goals Mcc Goals Time Frame: Mar 03, 2021 Eating (QC): 4 Oral Hygiene (QC): 4 Toileting Hygiene (QC): 3 1. toilet transfer: CGA 2. participate in UE exercises in all planes to improve strength and endurance needed for functional transfers, grooming, and eating tasks. 1=Demonstrate adherence to instructed precautions during ADL tasks. 2=Patient will verbalize/demonstrate understanding of assistive devices/modifications for ADL. 3=Patient will improve strength/tolerance for activity to enable patient to perform ADL's. OT Education/Plan Problem List/Assessment Assessment: Decreased Activ Tolerance, Decreased Safety Aware, Impaired Cognition Discharge Recommendations Plan/Recommendations: Continue POC Treatment Plan/Plan of Care Patient would benefit from OT for education, treatment and training to promote independence in ADL's, mobility, safety and/or upper extremity function for ADL's. Plan of Care: ADL Retraining, Caregiver Training, Functional Mobility, UE Funct Exercise/Act Treatment Duration: Mar 03, 2021 Frequency: 5 times per week Estimated Hrs Per Day: .25 hour per day Rehab Potential: Poor Time/GCodes Start Time: 10:25 Stop Time: 10:43 Total Time Billed (hr/min): 19 Billed Treatment Time 1 visit- ADL 1 (19 mins) MARY DE LA ROSA Feb 16, 2021 10:47
--- NOTE | 2021-02-16 12:03 | Physical Therapy Daily Note ---
PT Daily Note-Current Subjective Patient is very lethargic and states, "I can't walk. I don't feel good." Spouse present. Mental Status Patient Orientation: Confused Transfers SCALE: Activities may be completed with or without assistive devices. 6-Vredprzuju-xddfeba completes the activity by him/herself with no assistance from a helper. 5-Set-up or Clean-up Assistance-helper sets up or cleans up; patient completes activity. [place] assists only prior to or following the activity. 4-Supervision or Touching Assistance-helper provides verbal cues and/or touching/steadying and/or contact guard assistance as patient completes activity. Assistance may be provided throughout the activity or intermittently. 3-Partial/Moderate Assistance-helper does LESS THAN HALF the effort. [place] lifts, holds or supports trunk or limbs, but provides less than half the effort. 2-Substantial/Maximal Assistance-helper does MORE THAN HALF the effort. [place] lifts or holds trunk or limbs and provides more than half the effort. 4-Gvcmkugut-sjrqox does ALL the effort. Patient does none of the effort to complete the activity. Or, the assistance of 2 or more helpers is required for the patient to complete the activity. If activity was not attempted, code reason: 7-Patient Refused. 9-Not Applicable-not attempted and the patient did not perform the activity before the current illness, exacerbation or injury. 10-Not Attempted due to Environmental Limitations-(lack of equipment, weather restraints, etc.). 88-Not Attempted due to Medical Conditions or Safety Concerns. Lying to Sitting/Side of Bed(Q: 2 Sit to Stand (QC): 3 Chair/Ynp-ot-Lbcby Xfer(QC): 2 (x 2 patient fatigued with gait training requiring assist of 2 to attain sit in recliner safely.) Assessment Patient is very pale and listless. RN present to assess patient. PT to continue to address gross motor skills. From a PT standpoint, Patient is currently not safe to return to home with spouse. PT Half-Way Goals Half-Way Goals PT Enrollment Consultant Goals Time Frame: Feb 25, 2021 Roll Left & Right (QC): 3 Sit to Lying (QC): 3 Lying-Sitting on Side/Bed(QC): 3 Sit to Stand (QC): 3 Chair/Zul-nb-Wjfkk Xfer(QC): 3 Toilet Transfer (QC): 3 Walk 10 feet (QC): 3 Walk 50ft with 2 Turns (QC): 3 Walk 150 ft (QC): 3 PT Plan Treatment/Plan Treatment Plan: Continue Plan of Care Treatment Plan: Bed Mobility, Education, Functional Activity Nilda, Functional Strength, Gait, Safety, Therapeutic Exercise, Transfers Treatment Duration: Feb 25, 2021 Frequency: 6 times per week Estimated Hrs Per Day: .25 hour per day Time/GCodes Time In: 1124 Time Out: 1134 Total Billed Treatment Time: 10 Total Billed Treatment 1 visit GT 10 min LUCÍA HUSTON PT Feb 16, 2021 12:03
--- NOTE | 2021-02-16 15:53 | Progress Note ---
FABIOLA GRIMM 02/16/21 1553: Subjective Subjective/Events-last exam Patient was sleeping throughout the majority of the visit today. He states that he is feeling awful but denies pain or that anything is wrong. His inquired if wound care would be coming by today to dress/assess the wound on his right buttock. Counseled that we would ask his nurse for an update. also asked if his catheter would be removed soon. Shortly after the visit with Hawk and his his catheter was removed. Upon getting out of bed Hawk became pale and seemed to experience pre-syncope. Review of Systems Cardiovascular: Lt Headedness (Hawk appeared to experience pre-syncope after getting up and out of bed) Objective Exam Last Set of Vital Signs Vital Signs Date Time Temp Pulse Resp B/P (MAP) Pulse Ox O2 Delivery O2 Flow Rate FiO2 02/16/21 11:33 36.7 93 20 121/75 98 Room Air 02/13/21 02:26 2.00 Capillary Refill : Less Than 3 Seconds I&O Intake and Output 02/16/21 00:00 Intake Total 3580 ml Output Total 875 ml Balance 2705 ml Intake Oral 560 ml IV Total 3020 ml Output Urine Total 875 ml General: Other (Sleeping) HEENT: Atraumatic Lungs: Clear to Auscultation, Normal Air Movement Heart: Regular Rate, Other (+2 systolic murmur) Abdomen: Normal Bowel Sounds, Soft, No Tenderness Extremities: Other (+2 lower extremity peripheral edema bilaterally) Results/Procedures Lab Laboratory Tests 02/15/21 16:52: Glucometer 147H 02/15/21 21:10: Glucometer 124H 02/16/21 05:19: Glucometer 104 02/16/21 05:56: White Blood Count 10.7, Red Blood Count 3.64L, Hemoglobin 9.9L, Hematocrit 33L, Mean Corpuscular Volume 91, Mean Corpuscular Hemoglobin 27, Mean Corpuscular Hemoglobin Concent 30L, Red Cell Distribution Width 16.9H, Platelet Count 116L, Mean Platelet Volume 11.8, Percent Immature Platelet Fraction 4.8, Sodium Level 145, Potassium Level 3.9, Chloride Level 114H, Carbon Dioxide Level 20L, Anion Gap 11, Blood Urea Nitrogen 21H, Creatinine 1.06, Estimat Glomerular Filtration Rate 68, BUN/Creatinine Ratio 20, Glucose Level 108H, Calcium Level 8.6 02/16/21 10:15: Glucometer 119H Microbiology 02/13/21 MRSA Screen - Final, Complete MRSA not isolated 02/12/21 Urine Culture - Final, Complete NO GROWTH 02/12/21 Blood Culture - Preliminary, Resulted No growth Assessment/Plan Assessment/Plan Admission Dx Physical debility and sign of infection Admission Status: Inpatient Order (span 2 midnights) (1) Acute renal insufficiency Status: Acute Assessment & Plan: Continue to monitor arterial blood gas levels. Continue with sodium chloride 1000ml @ 150ml/hr Q6H40M IV to continue to improve renal function. Monitor for peripheral edema or other signs of cardiac distress due to fluids. Some peripheral edema is present. Encourage eating and drinking to help maintain renal function when fluids are stopped in the future. 02/15/2021: Cease IV fluids since kidney function is improving. Continue to encourage eating and drinking to prevent decline in renal function. Continue to monitor kidney function labs. (2) Parkinsons disease Status: Acute Assessment & Plan: Continue home medications of carbidopa 25mg/levodopa 100mg PO BID. (3) Peripheral edema Status: Chronic Assessment & Plan: Right foot peripheral edema: patient has known DVT in right leg. Patient is not on blood thinners due to history of intracranial bleeding. IVC filter has been placed. Monitor for increase in edema due to fluids patient is receiving. Continue PT as tolerated. (4) Wound of skin Status: Acute Assessment & Plan: Lesion of right buttock. Consult wound nurse. Continue position changes to prevent breakdown of skin, keep area clean. Monitor for signs of infection. (5) Atrial fibrillation Status: Chronic Assessment & Plan: Patient is not on blood thinners due to history of intracranial bleeding. IVC filter in place. Continue home medication of amiodarone 200mg for rhythm control. 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 Patient is not on blood thinners due to history of intracranial bleeding. IVC filter in place. Monitor for changes in edema, redness, or pain. Qualifiers: Qualified Codes: I82.511 - Chronic embolism and thrombosis of right femoral vein (7) Dementia Status: Chronic Assessment & Plan: Patient's baseline: at times will not remember the people around him, is not feeding himself, is ambulating. Assist patient with activities of daily living. Qualifiers: Qualified Codes: F03.90 - Unspecified dementia without behavioral disturbance (8) Physical debility Status: Acute Assessment & Plan: Continue with PT and working with social work to determine n ext steps. Assist patient with activities of daily living. 02/16/2021: remove catheter and assist patient with getting up and down to use the restroom. Assist patient with activities of daily living. Continue PT. (9) Hypotension Assessment & Plan: Blood pressure has improved, continue with sodium chloride 1000ml @ 150mls/hr Q6H40M IV. Monitor blood pressure. Monitor for edema and shortness of breath. 02/15/2021: Cease fluids, continue to monitor blood pressure. Patient is not hypotensive at this time. 02/16/2021: Catheter has been removed. Assist patient with getting up and down to use the restroom. Monitor for signs of hypotension during transport/ambulation. Monitor blood pressure. (10) Leukocytosis Status: Acute Assessment & Plan: Leukocytosis has improved although still elevated. 17.5 to 11.6. Continue with piperacillin sod/tazobactam sod 4.5gm/sodium chloride 120ml @ 30ml/hr Q8H IV. Re-check CBC to continue to monitor WBC counts. 02/15/2021: Cease IV antibiotics and start PO antibiotics. Re-check CBC to monitor WBC counts. 02/16/2021: Leukocytosis has resolved. Continue Cefdinir 300mg BID PO until 02/20/2021. Qualifiers: Qualified Codes: D72.829 - Elevated white blood cell count, unspecified Clinical Quality Measures Admission Status Admission Dx Physical debility with signs of infection DELIA GASCA MD 02/16/21 1632: Supervisory-Addendum Brief Verification & Attestation Participated in pt care: history, MDM, physical Personally performed: exam, history, MDM Care discussed with: Medical Student Procedures: n/a Verification and Attestation of Medical Student E/M Service A medical student performed and documented this service in my presence. I reviewed and verified all information documented by the medical student and made modifications to such information, when appropriate. I personally performed the physical exam and medical decision making. Delia Gasca, Feb 16, 2021,16:32 FABIOLA GRIMM Feb 16, 2021 15:53 DELIA GASCA MD Feb 16, 2021 16:32
[2021-02-16] MEDS: SIMvastatin 10 MG (ZOCOR) TAB PO SCH (21:37)
[2021-02-16] MEDS: clonazePAM 0.5 MG (KlonoPIN) TAB PO SCH (21:37)
[2021-02-16] MEDS: MIRTAZAPINE 15 MG (REMERON) TAB PO SCH (21:37)
[2021-02-17 05:24] LABS: BASOPHILS # (AUTO) 0.1 10^3/uL (0.0-0.1); BASOPHILS % (AUTO) 0 % (0-10); EOSINOPHILS # (AUTO) 0.1 10^3/uL (0.0-0.3); EOSINOPHILS % (AUTO) 1 % (0-10); HEMATOCRIT 35 % (40-54); HEMOGLOBIN 10.2 g/dL (13.3-17.7); LYMPHOCYTES # (AUTO) 1.7 10^3/uL (1.0-4.0); LYMPHOCYTES % (AUTO) 15 % (12-44); MEAN CORPUSCULAR HEMOGLOBIN 27 pg (25-34); MEAN CORPUSCULAR HGB CONC 30 g/dL (32-36); MEAN CORPUSCULAR VOLUME 92 fL (80-99); MEAN PLATELET VOLUME 11.4 fL (9.0-12.2); MONOCYTES # (AUTO) 0.9 10^3/uL (0.0-1.0); MONOCYTES % (AUTO) 8 % (0-12); NEUTROPHILS # (AUTO) 8.9 10^3/uL (1.8-7.8); NEUTROPHILS % (AUTO) 76 % (42-75); PLATELET COUNT 129 10^3/uL (130-400); WHITE BLOOD COUNT 11.8 10^3/uL (4.3-11.0)
[2021-02-17 05:44] LABS: CALCIUM 8.8 MG/DL (8.5-10.1); CREATININE SERUM 0.92 MG/DL (0.60-1.30); POTASSIUM 4.1 MMOL/L (3.6-5.0)
[2021-02-17] MEDS: inSUlin ASPART (NovoLOG) 1 UNIT/0.01 ML (CHARGE PER UNIT) SC SCH ×2 (05:45→10:20)
[2021-02-17] MEDS: MULTIVIT W/MINERALS TAB (THERAGRAN M) PO SCH (06:13)
[2021-02-17] MEDS: TAMSULOSIN 0.4 MG (FLOMAX) CAP PO SCH (06:13)
[2021-02-17] MEDS: SINEMET 25/100 (CARBIDOPA/LEVODOPA) TAB PO SCH (08:35)
[2021-02-17] MEDS: AMIODARONE 200 MG (CORDARONE) TAB PO SCH (08:35)
[2021-02-17] MEDS: OLANZapine 5 MG (ZyPREXA) TAB PO SCH (08:35)
[2021-02-17] MEDS: CEFDINIR 300 MG (OMNICEF) CAP PO SCH (08:35)
--- NOTE | 2021-02-17 09:37 | Physical Therapy Daily Note ---
PT Daily Note-Current Subjective Patient repeats, "Help, Help" Mental Status Patient Orientation: Confused, Listless Transfers SCALE: Activities may be completed with or without assistive devices. 2-Aazrgjyajy-fubanxc completes the activity by him/herself with no assistance from a helper. 5-Set-up or Clean-up Assistance-helper sets up or cleans up; patient completes activity. Lignum assists only prior to or following the activity. 4-Supervision or Touching Assistance-helper provides verbal cues and/or touching/steadying and/or contact guard assistance as patient completes activity. Assistance may be provided throughout the activity or intermittently. 3-Partial/Moderate Assistance-helper does LESS THAN HALF the effort. Lignum lifts, holds or supports trunk or limbs, but provides less than half the effort. 2-Substantial/Maximal Assistance-helper does MORE THAN HALF the effort. Lignum lifts or holds trunk or limbs and provides more than half the effort. 4-Qjlolngei-guzsfi does ALL the effort. Patient does none of the effort to complete the activity. Or, the assistance of 2 or more helpers is required for the patient to complete the activity. If activity was not attempted, code reason: 7-Patient Refused. 9-Not Applicable-not attempted and the patient did not perform the activity before the current illness, exacerbation or injury. 10-Not Attempted due to Environmental Limitations-(lack of equipment, weather restraints, etc.). 88-Not Attempted due to Medical Conditions or Safety Concerns. Lying to Sitting/Side of Bed(Q: 1 Sit to Stand (QC): 1 Chair/Jpq-fl-Xnbeu Xfer(QC): 1 Toilet Transfer (QC): 1 Assessment Patient unable to initiate or take a step on this date. Noted decline in function. Transferred to commode, patient unable to void or have BM. Transferred to recliner with noted increase left lean. Nursing in to assist with feeding. PT Continuous Process Machine Operator Goals Prison Goals PT Continuous Process Machine Operator Goals Time Frame: Feb 25, 2021 Roll Left & Right (QC): 3 Sit to Lying (QC): 3 Lying-Sitting on Side/Bed(QC): 3 Sit to Stand (QC): 3 Chair/Fbf-qv-Vebyo Xfer(QC): 3 Toilet Transfer (QC): 3 Walk 10 feet (QC): 3 Walk 50ft with 2 Turns (QC): 3 Walk 150 ft (QC): 3 PT Plan Treatment/Plan Treatment Plan: Continue Plan of Care Treatment Plan: Bed Mobility, Education, Functional Activity Nilda, Functional Strength, Gait, Safety, Therapeutic Exercise, Transfers Treatment Duration: Feb 25, 2021 Frequency: 6 times per week Estimated Hrs Per Day: .25 hour per day Time/GCodes Time In: 813 Time Out: 824 Total Billed Treatment Time: 11 Total Billed Treatment 1 visit FA 11 min LUCÍA HUSTON PT Feb 17, 2021 09:37
[2021-02-17] MEDS: MICONAZOLE 2% POWDER (DESENEX AF) 90 GM TOP SCH (09:52)
--- NOTE | 2021-02-17 11:51 | Occ Therapy Progress Note ---
Therapy Progress Note Pt asleep when therapy entered. Therapist unable to wake pt after several attempts. Will check on pt at a later time. MARY DE LA ROSA Feb 17, 2021 11:51
[2021-02-17] MEDS ORDERED: CEFD300C3 PO (12:24)
--- NOTE | 2021-02-17 13:46 | Discharge Summary ---
Discharge Summary Hospital Course Hospital Course Date of Admission: Feb 12, 2021 at 23:18 Admission Diagnosis : (1) Acute renal insufficiency (2) Parkinsons disease (3) Peripheral edema (4) Wound of skin (5) Atrial fibrillation (6) Dvt femoral (deep venous thrombosis) (7) Dementia (8) Physical debility (9) Hypotension (10) Leukocytosis Family Physician/Provider: [place] Date of Discharge: 02/17/21 Discharge Diagnosis: (1) Acute renal insufficiency Status: Acute Assessment & Plan: Continue to monitor arterial blood gas levels. Continue with sodium chloride 1000ml @ 150ml/hr Q6H40M IV to continue to improve renal function. Monitor for peripheral edema or other signs of cardiac distress due to fluids. Some peripheral edema is present. Encourage eating and drinking to help maintain renal function when fluids are stopped in the future. 02/15/2021: Cease IV fluids since kidney function is improving. Continue to encourage eating and drinking to prevent decline in renal function. Continue to monitor kidney function labs. (2) Parkinsons disease Status: Acute Assessment & Plan: Continue home medications of carbidopa 25mg/levodopa 100mg PO BID. (3) Peripheral edema Status: Chronic Assessment & Plan: Right foot peripheral edema: patient has known DVT in right leg. Patient is not on blood thinners due to history of intracranial bleeding. IVC filter has been placed. Monitor for increase in edema due to fluids patient is receiving. Continue PT as tolerated. (4) Wound of skin Status: Acute Assessment & Plan: Lesion of right buttock. Consult wound nurse. Continue position changes to prevent breakdown of skin, keep area clean. Monitor for signs of infection. (5) Atrial fibrillation Status: Chronic Assessment & Plan: Patient is not on blood thinners due to history of intracranial bleeding. IVC filter in place. Continue home medication of amiodarone 200mg for rhythm control. 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 Patient is not on blood thinners due to history of intracranial bleeding. IVC filter in place. Monitor for changes in edema, redness, or pain. Qualifiers: Qualified Codes: I82.511 - Chronic embolism and thrombosis of right femoral vein (7) Dementia Status: Chronic Assessment & Plan: Patient's baseline: at times will not remember the people around him, is not feeding himself, is ambulating. Assist patient with activities of daily living. Qualifiers: Qualified Codes: F03.90 - Unspecified dementia without behavioral disturbance (8) Physical debility Status: Acute Assessment & Plan: Continue with PT and working with social work to determine next steps. Assist patient with activities of daily living. 02/16/2021: remove catheter and assist patient with getting up and down to use the restroom. Assist patient with activities of daily living. Continue PT. (9) Hypotension Assessment & Plan: Blood pressure has improved, continue with sodium chloride 1000ml @ 150mls/hr Q6H40M IV. Monitor blood pressure. Monitor for edema and shortness of breath. 02/15/2021: Cease fluids, continue to monitor blood pressure. Patient is not hypotensive at this time. 02/16/2021: Catheter has been removed. Assist patient with getting up and down to use the restroom. Monitor for signs of hypotension during transport/ambulation. Monitor blood pressure. (10) Leukocytosis Status: Acute Assessment & Plan: Leukocytosis has improved although still elevated. 17.5 to 11.6. Continue with piperacillin sod/tazobactam sod 4.5gm/sodium chloride 120ml @ 30ml/hr Q8H IV. Re-check CBC to continue to monitor WBC counts. 02/15/2021: Cease IV antibiotics and start PO antibiotics. Re-check CBC to monitor WBC counts. 02/16/2021: Leukocytosis has resolved. Continue Cefdinir 300mg BID PO until 02/20/2021. Qualifiers: Qualified Codes: D72.829 - Elevated white blood cell count, unspecified Hospital Course: See discharge diagnoses. Labs and Pending Lab Test: Laboratory Tests 02/16/21 16:50: Glucometer 123H 02/16/21 20:34: Glucometer 164H 02/17/21 05:10: White Blood Count 11.8H, Red Blood Count 3.77L, Hemoglobin 10.2L, Hematocrit 35L , Mean Corpuscular Volume 92, Mean Corpuscular Hemoglobin 27, Mean Corpuscular Hemoglobin Concent 30L, Red Cell Distribution Width 16.9H, Platelet Count 129L, Mean Platelet Volume 11.4, Immature Granulocyte % (Auto) 0, Neutrophils (%) (Auto) 76H, Lymphocytes (%) (Auto) 15, Monocytes (%) (Auto) 8, Eosinophils (%) (Auto) 1, Basophils (%) (Auto) 0, Neutrophils # (Auto) 8.9H, Lymphocytes # (Auto) 1.7, Monocytes # (Auto) 0.9, Eosinophils # (Auto) 0.1, Basophils # (Auto) 0.1, Immature Granulocyte # (Auto) 0.0, Sodium Level 146H, Potassium Level 4.1, Chloride Level 115H, Carbon Dioxide Level 18L, Anion Gap 13, Blood Urea Nitrogen 20H, Creatinine 0.92, Estimat Glomerular Filtration Rate 80, BUN/Creatinine Ratio 22, Glucose Level 110H, Calcium Level 8.8 02/17/21 10:20: Glucometer 148H Microbiology 02/13/21 MRSA Screen - Final, Complete MRSA not isolated 02/12/21 Urine Culture - Final, Complete NO GROWTH 02/12/21 Blood Culture - Preliminary, Resulted No growth Home Meds Active Cefdinir 300 Mg Capsule 300 Mg PO BID Reported Multivitamin 1 Each Tablet 1 Each PO DAILY Mirtazapine 7.5 Mg Tablet 7.5 Mg PO HS Clonazepam 0.5 Mg Tablet 0.5 Mg PO 0600,1200 PRN Clonazepam 0.5 Mg Tablet 0.5 Mg PO HS Flomax (Tamsulosin HCl) 0.4 Mg Cap 0.4 Mg PO BID Olanzapine 5 Mg Tablet 5 Mg PO DAILY Olanzapine 10 Mg Tablet 10 Mg PO HS FILLED 12-17-2020 #30/30 DAY SUPPLY Myrbetriq (Mirabegron) 50 Mg Tab.er.24h 50 Mg PO DAILY Constulose (Lactulose) 10 Gm/15 Ml Solution 30 Ml PO DAILY Levetiracetam 500 Mg Tablet 500 Mg PO BID Pacerone (Amiodarone HCl) 200 Mg Tablet 200 Mg PO DAILY Carbidopa-Levodopa 25-100 Tab (Carbidopa/Levodopa) 1 Each Tablet 1 Ea PO BID Lovastatin 20 Mg Tablet 20 Mg PO HS Skilled NF Admit to: [facility] Certification (SNF) I certify that SNF services are required to be given on an inpatient basis because of the above named patient's need for assisted care on a continuing basis for the conditions(s) for which he/she was receiving inpatient hospital services prior to his/her transfer to the [facility]. Residential Facility Order: Nursing Services, Product Development Manager-Evaluate & Treat, Physical Therapy-Evaluate & Treat, Speech Language-Evaluate & Treat Oxygen Delivery Method: Room Air Rasta Gasca Feb 17, 2021 13:42 Discharge Physical Exam General: Other (drowsy but arousable) Lungs: Clear to Auscultation, Normal Air Movement Heart: Regular Rate Abdomen: Normal Bowel Sounds, Soft, No Tenderness Psych/Mental Status: Other (awakens and answers some questions, oriented only to self) RASTA GASCA MD Feb 17, 2021 13:46
[2021-02-17 14:37] VITALS: BP 124/76
--- NOTE | 2021-02-21 11:48 | Physician Query Clarification ---
PQ-Uncertain Diagnosis Admission/Discharge Admission Date: Feb 12, 2021 at 23:18 Discharge Date: Feb 17, 2021 at 14:16 Dr. Gasca, The medical record reflects the following clinical scenario: History/Risk Factors: hypotension, acute renal insufficiciency, metabolic encephalopathy Clinical Findings: T 36.0, P 86, R 20, BP 97/41, WBC 19.8, Lactic acidosis 3.74 Treatment: IV Piperacillin Question: Is sepsis a clinically valid diagnosis? Sepsis was documented in the ER record and Dr. Zarate PN's with no further docu mentation in the medical record. Dx not listed in DS Please document a response in Progress Note or Discharge Summary. 1. Yes, clinically valid, condition resolved. 2. No, condition ruled out. 3. Other, with explanation of clinical findings. 4. Undetermined, no explanation for clinical findings. PHYSICIAN RESPONSE Diagnosis clinically valid: Yes, Conditon resolved Please remember a lack of response to the above will prompt a phone page by CD I/Coding staff. In responding to this query, please exercise your independent professional judgment. The purpose of this communication is to more accurately reflect the complexity of your patients condition. The fact that a question is asked does not imply that any particular answer is desired or expected. Thank you for your timely response to this clarification. Requestors name: Nicolasa THIS PHYSICIAN QUERY FORM IS A PERMANENT PART OF THE MEDICAL RECORD NICOLASA GOTTI Feb 21, 2021 11:48 RASTA GASCA MD Mar 01, 2021 11:15
--- NOTE | 2021-02-21 12:07 | Physician Query Clarification ---
PQ-Further Specificity Admission/Discharge Admission Date: Feb 12, 2021 at 23:18 Discharge Date: Feb 17, 2021 at 14:16 Dr. Gasca, The medical record reflects the following clinical scenario: History/Risk Factors: acute renal insufficiency, hypotension, metabolic encephalopathy, Parkinson's disease w/dementia, urine incontinence Clinical Findings: sore Rt buttocks, wound NN's stage 3 PU Treatment: Allevyn applied Question: Can you further specify lesion rt buttock per the clinical indicators above? Please document a response in the Progress Notes or Discharge Summary. 1. Stage III pressure ulcer rt buttock 2. stage II pressure ulcer rt buttock 3. Other, with explanation of the clinical findings. 4. Clinically undetermined, no explanation for the clinical findings. PHYSICIAN RESPONSE Can you specify per above: 1 Please remember a lack of response to the above will prompt a phone page by CDI/Coding staff. In responding to this query, please exercise your independent professional judgment. The purpose of this communication is to more accurately reflect the complexity of your patients condition. The fact that a question is asked does not imply that any particular answer is desired or expected. Thank you for your timely response to this clarification. Requestors name: Nicolasa THIS PHYSICIAN QUERY FORM IS A PERMANENT PART OF THE MEDICAL RECORD NICOLASA GOTTI Feb 21, 2021 12:07 RASTA GASCA MD Mar 01, 2021 11:17
== END 2021-02-17 14:16 | DRG 871 ==
LOC: EDUNIT# 21:21 → ER 21:24 → ICU 23:18 → 4TH 02-13 16:56
PROVIDERS: ADMIT Internal Medicine; ATTEND Family Medicine
DX: A41.9 Sepsis, unspecified organism (principal); L89.313 Pressure ulcer of right buttock, stage 3; G93.41 Metabolic encephalopathy; N28.9 Disorder of kidney and ureter, unspecified; G20 Parkinson's disease; F02.80 Dementia in other diseases classified elsewhere, unspecified severity, without behavioral disturbance, psychotic disturbance, mood disturbance, and anxiety; Z66 Do not resuscitate; R32 Unspecified urinary incontinence; G47.00 Insomnia, unspecified; K21.9 Gastro-esophageal reflux disease without esophagitis; I08.3 Combined rheumatic disorders of mitral, aortic and tricuspid valves; I48.91 Unspecified atrial fibrillation; R60.0 Localized edema; I25.10 Atherosclerotic heart disease of native coronary artery without angina pectoris; I10 Essential (primary) hypertension; E78.00 Pure hypercholesterolemia, unspecified; E78.5 Hyperlipidemia, unspecified; M17.11 Unilateral primary osteoarthritis, right knee; M54.9 Dorsalgia, unspecified; E11.9 Type 2 diabetes mellitus without complications; F41.9 Anxiety disorder, unspecified; F32.A Depression, unspecified; R56.9 Unspecified convulsions; E87.5 Hyperkalemia; Z86.718 Personal history of other venous thrombosis and embolism; Z95.0 Presence of cardiac pacemaker; Z88.2 Allergy status to sulfonamides
CPT/HCPCS: 36415; 51702; 71045; 80048; 80053; 81000; 82805; 82947; 83605; 83735; 83880; 84100; 84484; 85007; 85025; 85027; 85610; 85730; 87040; 87081; 87088; 93005; 96361; 96365; 96375; 99291

== ENCOUNTER → 2021-09-18 | Outpatient (CLI) | payer MEDICARE, MEDICAID ==
[~2021-09-18] MED LIST changes: -AMIO200T6 PO; +AMIO200T65 PO; +POTA-160 PO; +POTA-179 PO; -POTA10TA6 PO; -POTA20TA15 PO; -TEST100V3 IM; +TEST100V9 IM
== END ==
LOC: CARD 09:00
PROVIDERS: ATTEND Internal Medicine Cardiovascular Disease
DX: I11.9 Hypertensive heart disease without heart failure (principal); I35.0 Nonrheumatic aortic (valve) stenosis
CPT/HCPCS: 93306

== ENCOUNTER → 2022-03-14 | Outpatient (CLI) | payer MEDICARE, MEDICAID ==
[~2022-03-14] MED LIST changes: -CARB1TAB19 PO; +CARB1TAB32 PO
[2022-03-14 15:45] LABS: ALBUMIN 3.7 GM/DL (3.2-4.5); POTASSIUM 3.3 MMOL/L (3.6-5.0)
[2022-03-14 15:47] LABS: CALCIUM 9.3 MG/DL (8.5-10.1)
[2022-03-14 15:48] LABS: TOTAL PROTEIN 7.5 GM/DL (6.4-8.2)
[2022-03-14 15:50] LABS: BILIRUBIN,TOTAL 0.3 MG/DL (0.1-1.0)
[2022-03-14 15:52] LABS: CREATININE SERUM 1.15 MG/DL (0.60-1.30)
--- NOTE | 2022-03-14 17:10 | Diagnostic Imaging Report ---
INDICATION: Foot pain. FINDINGS: 3 views of the right foot shows hallux valgus deformity of the 1st MTP joint. There appears to be some soft tissue ulceration lateral to the head of the 5th metatarsal. There is no osteolysis. There is no fracture or dislocation. IMPRESSION: Bunion of the right foot. The 2nd toe crosses over the big toe. There is no radiographic evidence for osteomyelitis. Dictated by: Dictated on workstation # [id number]
== END ==
LOC: WOUNDCARE 13:48
PROVIDERS: ATTEND Family Medicine
DX: E11.621 Type 2 diabetes mellitus with foot ulcer (principal); L97.512 Non-pressure chronic ulcer of other part of right foot with fat layer exposed; M62.81 Muscle weakness (generalized); A49.8 Other bacterial infections of unspecified site; L03.115 Cellulitis of right lower limb
CPT/HCPCS: 11042; 73630; 80053; 84134; 85652; 86141; 87070; 87205; A6212; G0463; 36415

== ENCOUNTER → 2022-03-16 | Outpatient (CLI) | payer OTHER, MEDICAID ==
--- NOTE | 2022-03-16 16:01 | Diagnostic Imaging Report ---
INDICATION: Peripheral vascular disease. EXAMINATION: Ankle-brachial indices. Pressures were recorded in the brachial arteries and in the posterior tibial and dorsalis pedal arteries and ankles. The CARLOS on the right is 1.19. CARLOS on the left is 1.11. IMPRESSION: Normal ankle brachial indices. Dictated by: Dictated on workstation # [id number]
== END ==
LOC: RAD 09:00
PROVIDERS: ATTEND Family Medicine
DX: L97.512 Non-pressure chronic ulcer of other part of right foot with fat layer exposed (principal); I73.9 Peripheral vascular disease, unspecified
CPT/HCPCS: 93923

== ENCOUNTER → 2022-03-20 | Outpatient (CLI) | payer OTHER, MEDICAID | LOC: WOUNDCARE 11:26 | PROVIDERS: ATTEND Family Medicine | DX: E11.621 Type 2 diabetes mellitus with foot ulcer (principal); E11.52 Type 2 diabetes mellitus with diabetic peripheral angiopathy with gangrene; I96 Gangrene, not elsewhere classified; A49.8 Other bacterial infections of unspecified site; L03.115 Cellulitis of right lower limb; I70.235 Atherosclerosis of native arteries of right leg with ulceration of other part of foot; M62.81 Muscle weakness (generalized) | CPT/HCPCS: 11042; A6212; G0463 ==

== ENCOUNTER → 2022-03-26 | Outpatient (CLI) | payer OTHER, MEDICAID | LOC: WOUNDCARE 12:19 | PROVIDERS: ATTEND Family Medicine | DX: E11.621 Type 2 diabetes mellitus with foot ulcer (principal); L97.513 Non-pressure chronic ulcer of other part of right foot with necrosis of muscle; R53.1 Weakness; I70.235 Atherosclerosis of native arteries of right leg with ulceration of other part of foot; F01.50 Vascular dementia, unspecified severity, without behavioral disturbance, psychotic disturbance, mood disturbance, and anxiety; B95.1 Streptococcus, group B, as the cause of diseases classified elsewhere; I96 Gangrene, not elsewhere classified; E11.52 Type 2 diabetes mellitus with diabetic peripheral angiopathy with gangrene | CPT/HCPCS: 11042; G0463 ==

== ENCOUNTER → 2022-04-02 | Outpatient (CLI) | payer OTHER, MEDICAID | LOC: WOUNDCARE 12:20 | PROVIDERS: ATTEND Family Medicine | DX: E11.621 Type 2 diabetes mellitus with foot ulcer (principal); M62.81 Muscle weakness (generalized); A49.8 Other bacterial infections of unspecified site; I70.235 Atherosclerosis of native arteries of right leg with ulceration of other part of foot; L97.513 Non-pressure chronic ulcer of other part of right foot with necrosis of muscle; F01.50 Vascular dementia, unspecified severity, without behavioral disturbance, psychotic disturbance, mood disturbance, and anxiety; E11.52 Type 2 diabetes mellitus with diabetic peripheral angiopathy with gangrene | CPT/HCPCS: 11042; G0463 ==

== ENCOUNTER → 2022-04-09 | Outpatient (CLI) | payer OTHER, MEDICAID ==
[2022-04-09 13:23] LABS: BASOPHILS % (AUTO) 0 % (0-10); EOSINOPHILS # (AUTO) 0.1 10^3/uL (0.0-0.3); EOSINOPHILS % (AUTO) 1 % (0-10); HEMATOCRIT 44 % (40-54); HEMOGLOBIN 13.3 g/dL (13.3-17.7); LYMPHOCYTES # (AUTO) 2.5 10^3/uL (1.0-4.0); LYMPHOCYTES % (AUTO) 18 % (12-44); MEAN CORPUSCULAR HEMOGLOBIN 27 pg (25-34); MEAN CORPUSCULAR HGB CONC 30 g/dL (32-36); MEAN CORPUSCULAR VOLUME 87 fL (80-99); MEAN PLATELET VOLUME 10.1 fL (9.0-12.2); MONOCYTES # (AUTO) 0.9 10^3/uL (0.0-1.0); MONOCYTES % (AUTO) 6 % (0-12); NEUTROPHILS # (AUTO) 10.7 10^3/uL (1.8-7.8); NEUTROPHILS % (AUTO) 75 % (42-75); PLATELET COUNT 237 10^3/uL (130-400); WHITE BLOOD COUNT 14.3 10^3/uL (4.3-11.0)
[2022-04-09 13:43] LABS: LYMPHOCYTES % (MANUAL) 19 %; MONOCYTES % (MANUAL) 7 %; NEUTROPHILS % (MANUAL) 74 %; RBC MORPH NORMAL
== END ==
LOC: WOUNDCARE 12:16
PROVIDERS: ATTEND Family Medicine
DX: E11.621 Type 2 diabetes mellitus with foot ulcer (principal); M62.81 Muscle weakness (generalized); A49.8 Other bacterial infections of unspecified site; I70.235 Atherosclerosis of native arteries of right leg with ulceration of other part of foot; L97.513 Non-pressure chronic ulcer of other part of right foot with necrosis of muscle; F01.50 Vascular dementia, unspecified severity, without behavioral disturbance, psychotic disturbance, mood disturbance, and anxiety; E11.52 Type 2 diabetes mellitus with diabetic peripheral angiopathy with gangrene
CPT/HCPCS: 83036; 85007; 85027; G0463; 36415; 99212

== ENCOUNTER → 2022-04-23 | Outpatient (CLI) | payer OTHER, MEDICAID | LOC: WOUNDCARE 12:23 | PROVIDERS: ATTEND Family Medicine | DX: E11.621 Type 2 diabetes mellitus with foot ulcer (principal); E11.52 Type 2 diabetes mellitus with diabetic peripheral angiopathy with gangrene; I96 Gangrene, not elsewhere classified; A49.8 Other bacterial infections of unspecified site; I70.235 Atherosclerosis of native arteries of right leg with ulceration of other part of foot; L97.513 Non-pressure chronic ulcer of other part of right foot with necrosis of muscle; F01.50 Vascular dementia, unspecified severity, without behavioral disturbance, psychotic disturbance, mood disturbance, and anxiety; M62.81 Muscle weakness (generalized) | CPT/HCPCS: 87070; 87077; 87205; A6212; G0463; 99212 ==

== ENCOUNTER → 2022-05-04 | Outpatient (CLI) | payer OTHER, MEDICAID ==
[2022-05-04 12:23] LABS: ABSOLUTE RETIC # 109 10e9/uL (24-90); BASOPHILS % (AUTO) 0 % (0-10); EOSINOPHILS # (AUTO) 0.1 10^3/uL (0.0-0.3); EOSINOPHILS % (AUTO) 1 % (0-10); HEMATOCRIT 47 % (40-54); HEMOGLOBIN 14.7 g/dL (13.3-17.7); LYMPHOCYTES # (AUTO) 3.2 10^3/uL (1.0-4.0); LYMPHOCYTES % (AUTO) 24 % (12-44); MEAN CORPUSCULAR HEMOGLOBIN 27 pg (25-34); MEAN CORPUSCULAR HGB CONC 31 g/dL (32-36); MEAN CORPUSCULAR VOLUME 86 fL (80-99); MEAN PLATELET VOLUME 10.5 fL (9.0-12.2); MONOCYTES # (AUTO) 0.9 10^3/uL (0.0-1.0); MONOCYTES % (AUTO) 7 % (0-12); NEUTROPHILS % (AUTO) 67 % (42-75); PLATELET COUNT 186 10^3/uL (130-400); RETICULOCYTE % 1.99 % (0.50-2.40); WHITE BLOOD COUNT 13.3 10^3/uL (4.3-11.0)
[2022-05-04 12:47] LABS: ANISOCYTOSIS SLIGHT; BAND NEUTROPHILS 0 %; BASOPHILS % (MANUAL) 1 %; EOSINOPHILS % (MANUAL) 2 %; LYMPHOCYTES % (MANUAL) 25 %; MONOCYTES % (MANUAL) 3 %; NEUTROPHILS % (MANUAL) 69 %
== END ==
LOC: LAB 11:31
PROVIDERS: ATTEND Nurse Practitioner Family
DX: D72.829 Elevated white blood cell count, unspecified (principal)
CPT/HCPCS: 36415; 85007; 85027; 85045; 85055

== ENCOUNTER → 2022-05-09 | Outpatient (CLI) | payer OTHER, MEDICAID | LOC: WOUNDCARE 12:48 | PROVIDERS: ATTEND Family Medicine | DX: E11.621 Type 2 diabetes mellitus with foot ulcer (principal); M62.81 Muscle weakness (generalized); A49.8 Other bacterial infections of unspecified site; I70.235 Atherosclerosis of native arteries of right leg with ulceration of other part of foot; L97.513 Non-pressure chronic ulcer of other part of right foot with necrosis of muscle; F01.50 Vascular dementia, unspecified severity, without behavioral disturbance, psychotic disturbance, mood disturbance, and anxiety; E11.52 Type 2 diabetes mellitus with diabetic peripheral angiopathy with gangrene | CPT/HCPCS: 11042; A6212; G0463 ==

== ENCOUNTER → 2022-05-28 | Outpatient (CLI) | payer OTHER, MEDICAID | LOC: WOUNDCARE 12:31 | PROVIDERS: ATTEND Family Medicine | DX: E11.621 Type 2 diabetes mellitus with foot ulcer (principal); M62.81 Muscle weakness (generalized); I70.235 Atherosclerosis of native arteries of right leg with ulceration of other part of foot; L97.513 Non-pressure chronic ulcer of other part of right foot with necrosis of muscle; F01.50 Vascular dementia, unspecified severity, without behavioral disturbance, psychotic disturbance, mood disturbance, and anxiety; E11.52 Type 2 diabetes mellitus with diabetic peripheral angiopathy with gangrene | CPT/HCPCS: 11042; G0463 ==

== ENCOUNTER → 2022-06-18 | Outpatient (CLI) | payer OTHER, MEDICAID | LOC: WOUNDCARE 12:26 | PROVIDERS: ATTEND Family Medicine | DX: E11.621 Type 2 diabetes mellitus with foot ulcer (principal); M62.81 Muscle weakness (generalized); I70.235 Atherosclerosis of native arteries of right leg with ulceration of other part of foot; L97.513 Non-pressure chronic ulcer of other part of right foot with necrosis of muscle; F01.50 Vascular dementia, unspecified severity, without behavioral disturbance, psychotic disturbance, mood disturbance, and anxiety; E11.52 Type 2 diabetes mellitus with diabetic peripheral angiopathy with gangrene | CPT/HCPCS: 11042; A6212; G0463 ==

== ENCOUNTER → 2022-07-23 | Outpatient (CLI) | payer OTHER, MEDICAID ==
[~2022-07-23] MED LIST changes: +ENAL-66 PO; -ENLP5T PO
[2022-07-23 11:49] LABS: BASOPHILS % (AUTO) 0 % (0-10); EOSINOPHILS # (AUTO) 0.1 10^3/uL (0.0-0.3); EOSINOPHILS % (AUTO) 1 % (0-10); HEMATOCRIT 45 % (40-54); HEMOGLOBIN 14.2 g/dL (13.3-17.7); LYMPHOCYTES # (AUTO) 2.5 10^3/uL (1.0-4.0); LYMPHOCYTES % (AUTO) 19 % (12-44); MEAN CORPUSCULAR HEMOGLOBIN 26 pg (25-34); MEAN CORPUSCULAR HGB CONC 31 g/dL (32-36); MEAN CORPUSCULAR VOLUME 83 fL (80-99); MEAN PLATELET VOLUME 10.9 fL (9.0-12.2); MONOCYTES # (AUTO) 0.7 10^3/uL (0.0-1.0); MONOCYTES % (AUTO) 6 % (0-12); NEUTROPHILS # (AUTO) 9.6 10^3/uL (1.8-7.8); NEUTROPHILS % (AUTO) 74 % (42-75); PLATELET COUNT 212 10^3/uL (130-400); WHITE BLOOD COUNT 12.9 10^3/uL (4.3-11.0)
[2022-07-23 12:10] LABS: ALBUMIN 3.5 GM/DL (3.2-4.5); BILIRUBIN,TOTAL 0.3 MG/DL (0.1-1.0); CALCIUM 9.4 MG/DL (8.5-10.1); CREATININE SERUM 1.18 MG/DL (0.60-1.30); POTASSIUM 3.4 MMOL/L (3.6-5.0); TOTAL PROTEIN 7.2 GM/DL (6.4-8.2)
== END ==
LOC: WOUNDCARE 10:54
PROVIDERS: ATTEND Family Medicine
DX: E11.621 Type 2 diabetes mellitus with foot ulcer (principal); M62.81 Muscle weakness (generalized); I70.235 Atherosclerosis of native arteries of right leg with ulceration of other part of foot; L97.513 Non-pressure chronic ulcer of other part of right foot with necrosis of muscle; F01.50 Vascular dementia, unspecified severity, without behavioral disturbance, psychotic disturbance, mood disturbance, and anxiety; E11.52 Type 2 diabetes mellitus with diabetic peripheral angiopathy with gangrene
CPT/HCPCS: 11042; 80053; 83036; 85025; A6260; G0463; 36415

== ENCOUNTER → 2022-08-06 | Outpatient (CLI) | payer OTHER, MEDICAID ==
[~2022-08-06] MED LIST changes: +TOPI-241 PO; -TOPI50TA13 PO
== END ==
LOC: WOUNDCARE 10:50
PROVIDERS: ATTEND Family Medicine
DX: E11.621 Type 2 diabetes mellitus with foot ulcer (principal); M62.81 Muscle weakness (generalized); I70.235 Atherosclerosis of native arteries of right leg with ulceration of other part of foot; F01.50 Vascular dementia, unspecified severity, without behavioral disturbance, psychotic disturbance, mood disturbance, and anxiety; L97.514 Non-pressure chronic ulcer of other part of right foot with necrosis of bone; E11.52 Type 2 diabetes mellitus with diabetic peripheral angiopathy with gangrene
CPT/HCPCS: A6212; G0463; 99213

== ENCOUNTER → 2022-08-28 | Outpatient (CLI) | payer MEDICARE, MEDICAID ==
[~2022-08-28] VITALS: Ht 175 cm; Wt 95.9 kg
[2022-08-28 12:29] VITALS: BP 116/66
== END ==
LOC: SDC 12:00
PROVIDERS: ATTEND Nurse Practitioner Family
DX: L08.9 Local infection of the skin and subcutaneous tissue, unspecified (principal)

== ENCOUNTER → 2022-09-17 | Outpatient (CLI) | payer MEDICAID, MEDICARE ==
--- NOTE | 2022-09-17 11:22 | Diagnostic Imaging Report ---
INDICATION: Dysphagia. TECHNIQUE: The procedure was performed in conjunction with Speech Pathology. Video fluoroscopy was performed during the swallowing of barium in multiple consistencies. 1.4 minutes of fluoroscopic time was utilized. FINDINGS: The patient ingested thin barium as well as nectar, applesauce, and cracker consistency. There was early spillover with all consistencies. There was deep laryngeal penetration during the swallowing of thin and nectar consistencies through a straw. No aspiration was observed. There was mild vallecular residue with all consistencies. This would clear with a second swallow. IMPRESSION: 1. Penetration with thin and nectar consistencies while drinking through a straw. No aspiration was observed. 2. Mild vallecular residue which cleared with a 2nd swallow. Dictated by: Dictated on workstation # [id number]
== END ==
LOC: RAD 10:04
PROVIDERS: ATTEND Internal Medicine
DX: R13.10 Dysphagia, unspecified (principal)
CPT/HCPCS: 74230

== ENCOUNTER → 2022-09-27 | Outpatient (CLI) | payer MEDICARE ==
[~2022-09-27] MED LIST changes: +HOLD METFORMIN - RECEIVED CONTRAST 20 ML VIAL IV SCH; +IOHEXOL 350 MG/ML 150 ML (OMNIPAQUE 350) VIAL IV ONE; +NS 100 ML (IVPB) BAG IV ONE
[2022-09-27 10:01] LABS: CREATININE SERUM 1.4 MG/DL (0.60-1.30)
--- NOTE | 2022-09-27 11:06 | Diagnostic Imaging Report ---
INDICATION: Bilateral leg pain. TECHNIQUE: CTA of the abdomen, pelvis, and lower extremities was performed with IV contrast bolus, axial slices, and 3D MIP reconstructions. Dose reduction protocol was used. FINDINGS: The visualized portions of the lung bases show chronic interstitial changes and atelectatic change. There is no pleural fluid or free intraperitoneal air. The liver, spleen, adrenals, and pancreas appear unremarkable. The kidneys bilaterally show some cortical thinning. There is a small cyst in the left kidney superiorly. There is a nonocclusive stone in the lower pole of the left kidney. There is no retroperitoneal mass or adenopathy. There is an IVC filter in place. There is prominent stool in the colon. There is no overt bowel obstruction. CTA images demonstrate the abdominal aorta to be patent and nonaneurysmal. The celiac trunk and SMA are patent with minor plaquing. The left renal artery shows minor plaquing. The right renal artery appears to show a significant stenosis just beyond the ostium. The inferior mesenteric artery is patent. The common iliac arteries show some minor plaquing but no significant stenosis. The internal iliac arteries and external iliac arteries are patent. The common femoral arteries and femoral bifurcations are patent on both sides. The SFA is patent on each side with minor plaquing. The popliteal arteries are patent but the right is partially obscured by overlying metallic artifact. The tibial vessels are not well seen due to contrast dilution. IMPRESSION: The CTA study demonstrates some plaquing in the aorta and iliac vessels but no significant aortoiliac stenosis. The does appear to be a significant stenosis of the right renal artery. The femoral arteries and popliteal arteries are patent with some limitation as above. The tibial vessels are not well seen due to contrast dilution. There is some cortical thinning in both kidneys. There is a small cyst in the left kidney as well as a nonocclusive stone in the lower pole of the left kidney. There is an IVC filter in place. There is a large amount of stool throughout the colon. Dictated by: Dictated on workstation # [id number]
== END ==
LOC: RAD 09:17
PROVIDERS: ATTEND Physician Assistant
DX: N28.1 Cyst of kidney, acquired (principal); I70.0 Atherosclerosis of aorta; N20.0 Calculus of kidney
CPT/HCPCS: 36415; 75635; 82565; 84520